=== PATIENT | male | born 1960 | race African-American/Black ===

== ENCOUNTER 2021-02-09 05:04 | Inpatient (IN) | payer SELFPAY ==
[~2021-02-09] VITALS: Ht 188 cm; Wt 113.6 kg
[2021-02-09] VITALS (22 sets, daily range): BP systolic 107–200; BP diastolic 55–111
--- NOTE | 2021-02-09 05:15 | NUR ---
Patient admitted to room 113 via cart accompanied by EMS personnel x2 from [facility] with HTN emergency and ICH. Patient sleeping but arouses easily and walks with standby assist to the bed. Patient states he is dizzy, gait is unsteady. Patient states he does have a headache but reports "I'm ok" and falls asleep. Patient arouses to name and shoulder shake; he is alert and oriented to self, place, recent event but not day/date/year nor president. After answering questions, patient immediately returns to sleep. Patient again aroused to fully assess neuro status--patient follows all commands and able to move all extremities but left arm and leg are weaker than the right. Patient was transferred with Cardene gtt infusing at 10MG/HR which was increased to 15MG/hr for SBP 200. Will page PCP for admit orders and discuss BP/Cardene gtt. See Admission information and Assessment to follow.
--- NOTE | 2021-02-09 06:00 | NUR ---
Paged Dr Salas, returned page--notified of admit, vital signs, Cardene gtt, Neuro status and reviewed CT Head results done at [facility]. Orders received for Admission to ICU, continue Cardene gtt, Labetalol 10MG IV [id number] for SBP>160, NPO, BR and Consult Dr Louie ([facility] ED spoke with Dr Louie.) See orders.
[2021-02-09] MEDS: LABETALOL 20 MG/4 ML DISP.SYRIN. IVP PRN (06:35)
--- NOTE | 2021-02-09 08:08 | PDOC1 ---
History and Physical Date of Service: DOS: DATE: 02/09/21 TIME: 08:05 Chief Complaint: Problems: (1) Intracranial hemorrhage (2) Hypertensive emergency Chief Complain: Headache dizziness History of Present Illness: HPI: Patient is a 61-year-old male transferred for to the ICU overnight due to hypertensive emergency and intracranial hemorrhage. Patient's mother at bedside provides most the history. She reports that patient had been in his usual state of health until yesterday morning when he reported feeling tired and having a headache. Patient mother reports he normally gets up early and goes outside however this was not the case yesterday. With this headache he took BC powder and went back to bed. Patient's mother reports that he was in and out of bed throughout most of the afternoon. Says patient did not eat anything yesterday which is very unusual for him. Approximately 1130 last night she had the patient get up to go to the bathroom and heard him fall. He however is able to get up and returned to bed; unknown if he hit his head at this time. Patient again woke up around 2 AM and woke up his mother asking for orange juice and then proceeded to fall again, she does not think he hit his head at this time. He was taken to hospital and found to have a systolic blood pressure greater than [address] scan found to have an intracranial hemorrhage. Due to severity of his condition he was transferred here. Patient's mother reports she is not aware of any past medical history other than hypertension which he intermittently takes hydrochlorothiazide for. Past Medical/Surgical History: PMH/PSH: Asthma, HTN, Hepatitis? Allergies: Allergies: Coded Allergies: No Known Drug Allergies (Unverified , 02/09/21) Family History: Family History: HTN Social History: Social History: Smoked 1 ppd; reports seldom alcohol use; denies drug use Current Medications: Current Medications Current Medications Nicardipine HCl 50 mg/Sodium Chloride 250 ml @ 12.5 mls/hr CONT PRN IV SEE I/O RECORD Last administered on 02/09/21at 08:03; Start 02/09/21 at 06:15 Labetalol HCl (Normodyne Iv Push) 10 mg PRN Q2HR PRN IVP HYPERTENSION Last administered on 02/09/21at 06:35; Start 02/09/21 at 06:15 ROS: Review of Systems Review of System REVIEW OF SYSTEMS: GENERAL: Denies weakness SKIN: No bruising, hair changes or rashes. EYES: No blurred, double or loss of vision. NOSE AND THROAT: No history of nosebleeds, hoarseness or sore throat. HEART: reports dizziness; denies chest pain, sob, weakness, numbness LUNGS: Denies cough, hemoptysis, wheezing or shortness of breath. GASTROINTESTINAL: Denies changes in appetite, nausea, vomiting, diarrhea or constipation. GENITOURINARY: No history of frequency, urgency, hesitancy or nocturia. NEUROLOGIC: Denies history of numbness, tingling, or tremor. PSYCHIATRIC: No history of panic, anxiety or depression. ENDOCRINE: No history of heat or cold intolerance, polyuria or polydipsia. EXTREMITIES: Denies joint pain, pain on walking or stiffness. Physical Exam: Vital Signs: Vital Signs Date Time Temp Pulse Resp B/P (MAP) Pulse Ox O2 Delivery O2 Flow Rate FiO2 02/09/21 08:00 98.6 67 30 156/81 (106) 96 Room Air 98.6 Physcial Exam: GEN: lethargic HEENT: Normal cephalic, atraumatic, external auditory canals are patent MUSCULOSKELETAL: Well developed , well nourished, ENDOCRINE: No thyromegaly was palpated LYMPHATICS: No cervical chain or axillary nodes were noted HEMATOPOIETIC: No bruising NECK: Supple, no JVD, no thyromegaly was noted LUNGS: Clear to auscultation in all lung reynolds without rhonchi or wheezing HEART: RRR, S1, S2 present. Peripheral pulses intact, no obvious murmurs noted ABDOMEN: Soft, nontender. Positive bowel sounds, no organomegaly, normal bowel sounds EXTREMITIES: Without clubbing, cyanosis, or edema. Pedal pulses intact. Negative Homans sign NEUROLOGIC: lethargic, unable to fully assess; knows his name and where he is but does not know why he is here SKIN: No ulcerations or rashes, good skin turgor, no jaundice VASCULAR: Good capillary refill, neurovascular bundle appears to be intact Labs: Labs: Labs from admission reviewed Assessment/Plan Assessment/Plan Patient is a 61-year-old -Italian male presenting as transfer due to intracranial hemorrhage and hypertensive emergency Intracranial hemorrhage, hypertensive emergency -Presented to outside hospital yesterday complaining of headache and multiple falls -Has systolic blood pressure over 200 -CT scans showed intracerebral hemorrhages -Contacted overnight for transfer here -Patient notably lethargic on arrival here -Neurosurgery consulted, repeat head CT -Awaiting surgical plan if any -Continue nicardipine drip; maintain blood pressure greater than 150-160 systolic Justifications for Admission Other Justification MARCUS ASH MD Feb 09, 2021 08:08
--- NOTE | 2021-02-09 09:00 | NUR ---
Pts mother took all clothing and wallet home with her.
--- NOTE | 2021-02-09 13:20 | NUR ---
Pt's neurological status declined since this AM. Mireille MCKINLEY notified and sent Dr Louie to bedside to assess pt. Dr Louie at bedside and stated that he does not want to operate on pt right now because it could cause him to have a worse outcome. Pt very restless, thrashing around, not answering questions much. Dr Louie ordered Fentanyl 25mcg PRN Q2Hrs but does not want pt to be sedated. Pt will not leave telemonitor on and keeps ripping all monitors off. RN has re-directed pt multiple times an hour.
[2021-02-09] MEDS ORDERED: fentaNYL PF VIAL 100 MCG/2 ML VIAL IVP PRN (13:30)
[2021-02-09] MEDS ORDERED: PHARMACY TO REVIEW MEDS. MC PRN (15:00)
[2021-02-09] MEDS ORDERED: ACETAMINOPHEN 650 MG SUPP.RECT. PR PRN (15:00)
--- NOTE | 2021-02-09 15:10 | PDOC2 ---
NEUROLOGY CONSULT Date of Service DOS: DATE: 02/09/21 TIME: 14:59 Reason for Consult Reason for Consult: Intracranial hemorrhage Referring Physician Referring Physician: Dr. Jacy Salas Source Source: Chart review History of Present Illness History of Present Illness The patient is a 61-year-old right-handed male who went to the [facility] emergency department early this morning. Yesterday morning he was having headache and felt tired. He took some BC powder and went back to bed. He was in and out of bed throughout the afternoon. He did not eat anything yesterday. At 1130 last night the patient got up to go the bathroom and mother heard him fall. He returned to bed. He woke up again about 2 AM and ask his mother for orange juice, he fell again. He was taken to the [facility] emergency department and had the below-described head CT. He was transferred here. Dr. Field, neurosurgery, is on the case. Patient does have hypertension, but he has not been taking his medication lately. Past Medical History Cardiovascular: CHF Pulmonary: Asthma, COPD Hepatobiliary: Hep A/B/C Past Surgical History Past Surgical History: No pertinent history Family History Family History: No pertinent hx Social History Social History Lives with mother Current Medications Current Medications Current Medications Nicardipine HCl 50 mg/Sodium Chloride 250 ml @ 12.5 mls/hr CONT PRN IV SEE I/O RECORD Last administered on 02/09/21at 11:29; Start 02/09/21 at 06:15 Labetalol HCl (Normodyne Iv Push) 10 mg PRN Q2HR PRN IVP HYPERTENSION Last administered on 02/09/21at 06:35; Start 02/09/21 at 06:15 Lorazepam (Ativan Inj) 2 mg 1X ONCE IVP Last administered on 02/09/21at 10:54; Start 02/09/21 at 10:45; Stop 02/09/21 at 10:46; Status DC Lorazepam (Ativan Inj) 2 mg 1X ONCE IVP Last administered on 02/09/21at 11:00; Start 02/09/21 at 11:00; Stop 02/09/21 at 11:01; Status DC Fentanyl Citrate (Fentanyl 2ml Vial) 25 mcg PRN Q2HR PRN IVP MODERATE TO SEVERE PAIN Last administered on 02/09/21at 13:37; Start 02/09/21 at 13:30 Allergies Allergies: Coded Allergies: No Known Drug Allergies (Unverified , 02/09/21) ROS Review of System Unobtainable Physical Exam Physical Examination General: Well-developed, well-nourished black male in no acute distress HEENT: Normocephalic andatraumatic. Temporal arteriespulsatile and nontender. Neck: Supple without bruit, no meningismus Musculoskeletal: Stability:see neurologic. Gait exam:see neurologic. Tone:see neurologic.Strength:see neurologic. Neurological: Mental Status:Moans, moving around in bed, nonpurposeful movements, does not follow commands. Cranial Nerves:Pupils equal and reactive to light, extraocular movements areintact,There is no facial asymmetry. Vestibulo-ocular reflex is intact. Reflexes:2+ and symmetric with flexor plantar responses. Motor:Moves all extremities, less so on the left. Coordination and gait:Not testable. Sensory:Not testable. Vitals VITALS Vital Signs Date Time Temp Pulse Resp B/P (MAP) Pulse Ox O2 Delivery O2 Flow Rate FiO2 02/09/21 14:00 81 28 145/78 (100) Room Air 02/09/21 12:00 98.4 97 98.4 Labs Labs Laboratory Tests Test 02/09/21 10:15 Hepatitis A IgM Antibody Nonreactive (Nonreactive) Hepatitis B Surface Antigen Nonreactive (Nonreactive) Hepatitis B Core IgM Antibody Nonreactive (Nonreactive) Hepatitis C IgG Antibody Reactive (Nonreactive) Laboratory Tests Test 02/09/21 10:15 Hepatitis A IgM Antibody Nonreactive (Nonreactive) Hepatitis B Surface Antigen Nonreactive (Nonreactive) Hepatitis B Core IgM Antibody Nonreactive (Nonreactive) Hepatitis C IgG Antibody Reactive (Nonreactive) Images Images I reviewed the second CT from here, I do not see any appreciable difference, radiology interpretation pending CT HEAD [facility] INDICATION: Reason: Near Syncope Dizziness / Spl. Instructions: / History: COMPARISON: None Available. Exposure: One or more of the following individualized dose reduction techniques were utilized for this examination: 1. Automated exposure control 2. Adjustment of the mA and/or kV according to patient size 3. Use of iterative reconstruction technique TECHNIQUE: 5 mm contiguous axial images were obtained from the skull base to the vertex in both bone and soft tissue algorithm. FINDINGS: There is a large right temporo-occipital intraparenchymal bleed identified measuring 7.0 x 8.1 x 5.3 cm with surrounding edema and mass effect causing effacement of the right lateral ventricle and 8 mm [id number] midline shift. There is sulcal effacement in the right cerebral hemisphere. The fourth ventricle isn't effaced. The basal cisterns are uneffaced. The visualized paranasal sinuses are clear. IMPRESSION: Large right temporo-occipital intraparenchymal bleed identified measuring 7.0 x 8.1 x 5.3 cm with surrounding edema and mass effect causing effacement of the right lateral ventricle and sulcal effacement in the right cerebral hemisphere and 8 mm [id number] midline shift. Other differential includes venous thrombosis hemorrhage. Assessment/Plan Assessment/Plan Impression: Large right temporo-occipital intraparenchymal bleed, most likely lobar hemorrhage from hypertension, consider venous sinus thrombosis, less likely in this location, aneurysmal bleed, head trauma (also unlikely). Recommendations: Target blood pressure less than 150/[address] tomorrow morning CT angiogram Doubt that he would hold still to get MRI or MR venogram, risks of sedation outweigh benefits. Also see stroke orders Thank you for letting me help with the patient's care. EITAN LORENZO MD Feb 09, 2021 15:10
[2021-02-09] MEDS ORDERED: ALBUTEROL SULFATE 2.5 MG/3 ML NEBU. NEB PRN (15:15)
--- NOTE | 2021-02-09 15:25 | RAD ---
CT scan of the head without contrast 02/09/2021 Clinical History: Intracranial hemorrhage Technique: Unenhanced, contiguous, 5 mm axial sections were obtained through the head. One or more of the following individualized dose reduction techniques were utilized for this study: 1. Automated exposure control. 2. Adjustment of the mA and/or kV according to patient size. 3. Use of iterative reconstruction technique. Findings: Comparison study is dated earlier today at 0302 hours. Images from the study are degraded by patient motion. The patient was combative on the CT table. An acute parenchymal hematoma is seen involving the right posterior temporal/occipital lobe. This carrington sures 7.4 x 5.3 5.4 cm in AP, transverse and craniocaudal dimensions. It is not significantly changed in size when compared to the previous examination. There is surrounding edema and associated mass ef fect which does not appear significantly changed. Effacement of the right lateral ventricle is again noted no hydrocephalus is seen. No skull fracture is identified. IMPRESSION: 7.4 cm acute hematoma is seen involving the right posterior temporal/occipital lobe. Ther e is surrounding edema and associated mass effect. These findings have not significantly changed. Electronically signed by: Lyle Sullivan MD (02/09/2021 3:22 PM) [id number]
[2021-02-09] MEDS ORDERED: IOHEXOL 350 MG/ML 100 ML VIAL. ONE (15:26)
[2021-02-09] MEDS ORDERED: IOHEXOL 350 MG/ML 100 ML VIAL. IV ONE (15:30)
[2021-02-09] MEDS ORDERED: CONTRAST GIVEN. MC PRN (15:45)
[2021-02-09] MEDS ORDERED: ROCURONIUM 50 MG/5 ML VIAL. ONE (15:51)
[2021-02-09] MEDS ORDERED: PROPOFOL 100 ML IV ONE (15:51)
[2021-02-09] MEDS ORDERED: LIDOCAINE 2% 100 MG/5 ML SYRINGE. ONE (15:52)
--- NOTE | 2021-02-09 15:53 | NUR ---
SS following for discharge planning. SS reviewed pt chart and discussed with pt RN. Pt is from home. Pt had CT of head today. Hemorrhagic CVA. Pt being intubated. Dr. Louie consulted for surgery. Carla vazquez. Not stable. Self pay. SS will continue to follow for discharge planning.
[2021-02-09] MEDS ORDERED: ROCURONIUM 50 MG/5 ML VIAL. IV ONE ×2 (16:15→17:15)
[2021-02-09] MEDS ORDERED: LIDOCAINE 2% 100 MG/5 ML SYRINGE. IV ONE ×2 (16:15→17:15)
[2021-02-09] MEDS: PROPOFOL 100 ML IV PRN ×3 (16:18→22:24)
--- NOTE | 2021-02-09 16:30 | RAD ---
CT HEAD/BRAIN WO, CTA HEAD AND NECK W/WO CONTRAST History:Reason: pt went completely unresponsive [phone] / Spl. Instructions: / History: Technique: Noncontrast head CT was performed in correlation with this exam. After bolus of intravenou s contrast, volumetric CT data acquisition was acquired of the head and neck. Multiplanar reconstruct ion images to include MIP and 3-D reconstruction images are submitted. Exposure: One or more of the following individualized dose reduction techniques were utilized for thi s examination: 1. Automated exposure control 2. Adjustment of the mA and/or kV according to patient size 3. Use of iterative reconstruction technique. Comparison: February 09, 2021 Any determination of stenosis is based on NASCET criteria. Noncontrast CT head: Unchanged right posterior cerebral intraparenchymal hemorrhage with surrounding edema involving the r ight parietal occipital and temporal lobes. Small right posterior falcine and posterior cerebral subd ural hematoma, unchanged and better evaluated on the current examination due to motion artifact previ ously. Unchanged mass effect on the right posterior lateral ventricle with unchanged leftward midline shift measures 3 mm. Imaged orbits are unremarkable. Imaged paranasal sinuses and mastoid air cells are clear. Head CTA: ICA: Moderate carotid siphon atheromatous plaque with mild narrowing, left greater than right. No occ lusion. MCA: No stenosis, occlusion or aneurysm. Injury displacement of right MCA branches due to intraparenc hymal hematoma. ALAYNA: No stenosis, occlusion or aneurysm. HEALTHCARE MANAGEMENT: No stenosis, occlusion or aneurysm. Basilar artery: No stenosis, occlusion or aneurysm. Distal vertebral arteries: No stenosis, occlusion or aneurysm. No aneurysm or vascular malformation within the region of the right posterior cerebral hematoma. CT angiogram neck: Aortic arch: Degraded due to contrast bolus timing artifact Common carotid arteries: Degraded evaluation of the common carotid arteries due to patient motion. Internal carotid arteries: No stenosis, occlusion or dissection. 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 Patent right vertebral artery. Pulmonary emphysema with large right apical bullous disease. Soft tissues appear normal. Bones: Multilevel cervical spondylosis most prominent C4-C5 and C5-C6. Impression: Noncontrast head CT: 1. Unchanged right posterior cerebral intraparenchymal hematoma with adjacent edema and mass effect. 2. Small right posterior parafalcine and the posterior cerebral subdural hematoma, unchanged. CT angiogram head: 1. No evidence of arterial venous malformation or aneurysm within the region of the intraparenchymal hematoma. CT angiogram neck: 1. Degraded evaluation due to patient motion and technique. 2. Occlusion of the left vertebral artery 3. Pulmonary emphysema. Electronically signed by: Aaron Mayes DO (02/09/2021 4:28 PM) [id number]
[2021-02-09] MEDS ORDERED: ROCURONIUM 100 MG/10 ML VIAL. ONE ×2 (16:31→17:58)
[2021-02-09] MEDS ORDERED: GELATIN SPONGE SIZE 100. ONE (16:33)
[2021-02-09] MEDS ORDERED: BUPIVACAINE-EPI 0.5%-1:200000 MPF 30 ML VIAL. ONE (16:33)
[2021-02-09] MEDS ORDERED: SURGICEL HEMOSTAT 4X8 EACH. ONE (16:33)
[2021-02-09] MEDS ORDERED: THROMBIN TOPICAL 20,000 UNIT SPRAY.SYRN KIT TP ONE (16:33)
[2021-02-09] MEDS ORDERED: fentaNYL PF VIAL 100 MCG/2 ML VIAL IVP ONE (16:45)
--- NOTE | 2021-02-09 16:54 | RAD ---
Exam: Chest one view INDICATION: Intubation and central line placement TECHNIQUE: Frontal view of the chest Comparisons: None FINDINGS: Enteric tube with tip in the distal stomach. Right-sided central catheter with tip at the SVC. The cardiomediastinal silhouette and pulmonary vessels are within normal limits. Strandy opacity at lung bases bilaterally. No pleural effusion. IMPRESSION: Lines and tubes described above. Electronically signed by: Alis Schroeder MD (02/09/2021 4:52 PM) LEIDA
--- NOTE | 2021-02-09 16:59 | NUR ---
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 Monitors in place. Propofol, Cardene, and NS infusing. Family updated and on the way to hospital.
--- NOTE | 2021-02-09 17:04 | PDOC ---
Date and Time Called at 15:41 to come to ICU to intubate patient. Patient in CT scan after change in mental status, large subdural. At some point he became completely unresponsive, still having shallow respirations. When he arrived from CT he was being given bag/mask O2. SpO2 98%, BP 120s/80s, unresponsive Given 100mg IV Lidocaine, 60mg IV Propofol and 50mg IV Rocuronium. 7.5 ETT placed with ease. MAC 3. Secured 24cm, ETCO2 present, BSBE. BP 140/80 after ETT. R External jugular 3 lumen inserted without difficulty, sutured at 16cm, brief run VT with wire, resolved when withdrawn. 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 CXR pending Covid swab pending Current Medications Current Medications Nicardipine HCl 50 mg/Sodium Chloride 250 ml @ 12.5 mls/hr CONT PRN IV SEE I/O RECORD Last administered on 02/09/21at 16:51; Start 02/09/21 at 06:15 Labetalol HCl (Normodyne Iv Push) 10 mg PRN Q2HR PRN IVP HYPERTENSION Last administered on 02/09/21at 06:35; Start 02/09/21 at 06:15 Lorazepam (Ativan Inj) 2 mg 1X ONCE IVP Last administered on 02/09/21at 10:54; Start 02/09/21 at 10:45; Stop 02/09/21 at 10:46; Status DC Lorazepam (Ativan Inj) 2 mg 1X ONCE IVP Last administered on 02/09/21at 11:00; Start 02/09/21 at 11:00; Stop 02/09/21 at 11:01; Status DC Fentanyl Citrate (Fentanyl 2ml Vial) 25 mcg PRN Q2HR PRN IVP MODERATE TO SEVERE PAIN Last administered on 02/09/21at 13:37; Start 02/09/21 at 13:30 Info (Review Meds) 1 ea PRN 1X PRN MC SEE COMMENTS; Start 02/09/21 at 15:00 Acetaminophen (Tylenol Supp) 650 mg PRN Q6HRS PRN [place] FEVER > 100.5'F or 38'C; Start 02/09/21 at 15:00 Albuterol Sulfate (Ventolin Neb Soln) 2.5 mg PRN Q4HRS PRN NEB SHORTNESS OF BREATH; Start 02/09/21 at 15:15 Iohexol (Omnipaque 350 Mg/ml) 75 ml 1X ONCE IV Last administered on 02/09/21at 15:52; Start 02/09/21 at 15:30; Stop 02/09/21 at 15:35; Status DC Iohexol (Omnipaque 350 Mg/ml) 100 ml STK-MED ONCE .ROUTE ; Start 02/09/21 at 15:26; Stop 02/09/21 at 15:27; Status DC Info (CONTRAST GIVEN -- Rx MONITORING) 1 each PRN DAILY PRN MC SEE COMMENTS; Start 02/09/21 at 15:45; Stop 02/11/21 at 15:44 Propofol 100 ml @ As Directed STK-MED ONCE IV ; Start 02/09/21 at 15:51; Stop 02/09/21 at 15:51; Status DC Rocuronium [place] (Zemuron) 50 mg STK-MED ONCE .ROUTE ; Start 02/09/21 at 15:51; Stop 02/09/21 at 15:51; Status DC Lidocaine HCl (Lidocaine HCl 2% Abboject) 100 mg STK-MED ONCE .ROUTE ; Start 02/09/21 at 15:52; Stop 02/09/21 at 15:53; Status DC Propofol 100 ml @ 3.507 mls/ hr CONT PRN IV PER PROTOCOL Last administered on 02/09/21at 16:18; Start 02/09/21 at 16:15 Lidocaine HCl (Lidocaine HCl 2% Abboject) 100 mg 1X ONCE IV Last administered on 02/09/21at 16:17; Start 02/09/21 at 16:15; Stop 02/09/21 at 16:17; Status DC Rocuronium [place] (Zemuron) 50 mg 1X ONCE IV Last administered on 02/09/21at 16:17; Start 02/09/21 at 16:15; Stop 02/09/21 at 16:17; Status DC Rocuronium [place] (Zemuron) 100 mg STK-MED ONCE .ROUTE ; Start 02/09/21 at 16:31; Stop 02/09/21 at 16:32; Status DC Gelatin (Gelfoam Size 100) 1 each STK-MED ONCE .ROUTE ; Start 02/09/21 at 16:33; Stop 02/09/21 at 16:33; Status DC Bupivacaine HCl/ Epinephrine Bitart (Sensorcain-Epi 0.5%-1:[id number] Mpf) 30 ml STK-MED ONCE .ROUTE ; Start 02/09/21 at 16:33; Stop 02/09/21 at 16:33; Status DC Cellulose (Surgicel Hemostat 4x8) 1 each STK-MED ONCE .ROUTE ; Start 02/09/21 at 16:33; Stop 02/09/21 at 16:33; Status DC Thrombin 20,000 unit STK-MED ONCE TP ; Start 02/09/21 at 16:33; Stop 02/09/21 at 16:33; Status DC Fentanyl Citrate (Fentanyl 2ml Vial) 75 mcg 1X ONCE IVP Last administered on 02/09/21at 16:45; Start 02/09/21 at 16:45; Stop 02/09/21 at 16:47; Status DC Pertinent Labs/Test Laboratory Tests Test 02/09/21 10:15 Hepatitis A IgM Antibody Nonreactive (Nonreactive) Hepatitis B Surface Antigen Nonreactive (Nonreactive) Hepatitis B Core IgM Antibody Nonreactive (Nonreactive) Hepatitis C IgG Antibody Reactive (Nonreactive) Laboratory Tests Test 02/09/21 10:15 Hepatitis A IgM Antibody Nonreactive (Nonreactive) Hepatitis B Surface Antigen Nonreactive (Nonreactive) Hepatitis B Core IgM Antibody Nonreactive (Nonreactive) Hepatitis C IgG Antibody Reactive (Nonreactive) LAST VITALS Vital Signs Date Time Temp Pulse Resp B/P (MAP) Pulse Ox O2 Delivery O2 Flow Rate FiO2 02/09/21 16:54 127/89 (102) 02/09/21 16:45 Ventilator 02/09/21 16:40 98.4 94 33 98 98.4 SYLVIA MATHIS MD Feb 09, 2021 17:04
--- NOTE | 2021-02-09 17:09 | PDOC ---
Provider Note Date of Service: DATE: 02/09/21 TIME: 17:02 Provider Note consulted for ICH patient seen and examined at 0915- was awake, alert, oriented to person and place, PEREZ, weaker on the left, On Cardene SBP 140's, follow CT was ordered, D/W [place] Reviewed f[place] [address] which was essentially unchanged Patient seen again at 1320- continued to answer questions, more restless, c/o mild headache, BP controlled with Cardene Received message at 1520 that patient was not responding, was seen by neurology and stat CTA was ordered patient intubated by anesthesia in ICU, plans make for craniotomy 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
[2021-02-09] MEDS ORDERED: PROPOFOL 100 ML IV PRN (17:15)
[2021-02-09] MEDS ORDERED: PROPOFOL 10 MG/ML (20ML) VIAL. IV ONE (17:15)
[2021-02-09] MEDS ORDERED: ceFAZolin SODIUM IV Push 1 GM VIAL. IVP ONE (17:28)
[2021-02-09] MEDS ORDERED: fentaNYL PF VIAL 100 MCG/2 ML VIAL ONE (17:43)
[2021-02-09 18:49] LABS: HEMATOCRIT 41.9 % (39.0-53.0); HEMOGLOBIN 14.1 g/dL (13.0-17.5)
[2021-02-09] MEDS ORDERED: VECURONIUM BOLUS 10 MG VIAL. IV ONE (18:49)
[2021-02-09] MEDS ORDERED: 0.9 % SODIUM CHLORIDE 20 ML VIAL. IJ ONE (18:50)
[2021-02-09 18:58] LABS: CREATININE 1.9 mg/dL (0.7-1.3); POTASSIUM 4.4 mmol/L (3.5-5.1)
[2021-02-09 19:00] LABS: PROTHROMBIN TIME PATIENT 14.2 SEC (11.7-14.0)
[2021-02-09] MEDS ORDERED: SEVOFLURANE > 120 MINUTES. IH ONE (19:20)
--- NOTE | 2021-02-09 19:51 | PDOC ---
Date and Time EJ 3 lumen tip in SVC I am unable to see the ETT on the Xray that was taken. ETT is in trachea at 24cm with no air leak. Will repeat Xray Current Medications Current Medications Nicardipine HCl 50 mg/Sodium Chloride 250 ml @ 12.5 mls/hr CONT PRN IV SEE I/O RECORD Last administered on 02/09/21at 16:51; Start 02/09/21 at 06:15 Labetalol HCl (Normodyne Iv Push) 10 mg PRN Q2HR PRN IVP HYPERTENSION Last administered on 02/09/21at 06:35; Start 02/09/21 at 06:15 Lorazepam (Ativan Inj) 2 mg 1X ONCE IVP Last administered on 02/09/21at 10:54; Start 02/09/21 at 10:45; Stop 02/09/21 at 10:46; Status DC Lorazepam (Ativan Inj) 2 mg 1X ONCE IVP Last administered on 02/09/21at 11:00; Start 02/09/21 at 11:00; Stop 02/09/21 at 11:01; Status DC Fentanyl Citrate (Fentanyl 2ml Vial) 25 mcg PRN Q2HR PRN IVP MODERATE TO SEVERE PAIN Last administered on 02/09/21at 13:37; Start 02/09/21 at 13:30 Info (Review Meds) 1 ea PRN 1X PRN MC SEE COMMENTS; Start 02/09/21 at 15:00 Acetaminophen (Tylenol Supp) 650 mg PRN Q6HRS PRN MD FEVER > 100.5'F or 38'C; Start 02/09/21 at 15:00 Albuterol Sulfate (Ventolin Neb Soln) 2.5 mg PRN Q4HRS PRN NEB SHORTNESS OF BREATH; Start 02/09/21 at 15:15 Iohexol (Omnipaque 350 Mg/ml) 75 ml 1X ONCE IV Last administered on 02/09/21at 15:52; Start 02/09/21 at 15:30; Stop 02/09/21 at 15:35; Status DC Iohexol (Omnipaque 350 Mg/ml) 100 ml STK-MED ONCE .ROUTE ; Start 02/09/21 at 15:26; Stop 02/09/21 at 15:27; Status DC Info (CONTRAST GIVEN -- Rx MONITORING) 1 each PRN DAILY PRN MC SEE COMMENTS; Start 02/09/21 at 15:45; Stop 02/11/21 at 15:44 Propofol 100 ml @ As Directed STK-MED ONCE IV ; Start 02/09/21 at 15:51; Stop 02/09/21 at 15:51; Status DC Rocuronium [place] (Zemuron) 50 mg STK-MED ONCE .ROUTE ; Start 02/09/21 at 15:51; Stop 02/09/21 at 15:51; Status DC Lidocaine HCl (Lidocaine HCl 2% Abboject) 100 mg STK-MED ONCE .ROUTE ; Start 02/09/21 at 15:52; Stop 02/09/21 at 15:53; Status DC Propofol 100 ml @ 3.507 mls/ hr CONT PRN IV PER PROTOCOL Last administered on 02/09/21at 16:18; Start 02/09/21 at 16:15 Lidocaine HCl (Lidocaine HCl 2% Abboject) 100 mg 1X ONCE IV Last administered on 02/09/21at 16:17; Start 02/09/21 at 16:15; Stop 02/09/21 at 16:17; Status DC Rocuronium [place] (Zemuron) 50 mg 1X ONCE IV Last administered on 02/09/21at 16:17; Start 02/09/21 at 16:15; Stop 02/09/21 at 16:17; Status DC Rocuronium [place] (Zemuron) 100 mg STK-MED ONCE .ROUTE ; Start 02/09/21 at 16:31; Stop 02/09/21 at 16:32; Status DC Gelatin (Gelfoam Size 100) 1 each STK-MED ONCE .ROUTE Last administered on 02/09/21at 17:49; Start 02/09/21 at 16:33; Stop 02/09/21 at 16:33; Status DC Bupivacaine HCl/ Epinephrine Bitart (Sensorcain-Epi 0.5%-1:293763 Mpf) 30 ml STK-MED ONCE .ROUTE Last administered on 02/09/21at 17:49; Start 02/09/21 at 16:33; Stop 02/09/21 at 16:33; Status DC Cellulose (Surgicel Hemostat 4x8) 1 each STK-MED ONCE .ROUTE Last administered on 02/09/21at 18:38; Start 02/09/21 at 16:33; Stop 02/09/21 at 16:33; Status DC Thrombin 20,000 unit STK-MED ONCE TP Last administered on 02/09/21at 17:49; Start 02/09/21 at 16:33; Stop 02/09/21 at 16:33; Status DC Fentanyl Citrate (Fentanyl 2ml Vial) 75 mcg 1X ONCE IVP Last administered on 02/09/21at 16:45; Start 02/09/21 at 16:45; Stop 02/09/21 at 16:47; Status DC Propofol (Diprivan) 200 mg 1X ONCE IV ; Start 02/09/21 at 17:15; Stop 02/09/21 at 17:16; Status DC Lidocaine HCl (Lidocaine HCl 2% Abboject) 100 mg 1X ONCE IV ; Start 02/09/21 at 17:15; Stop 02/09/21 at 17:16; Status DC Rocuronium [place] (Zemuron) 50 mg 1X ONCE IV ; Start 02/09/21 at 17:15; Stop 02/09/21 at 17:16; Status DC Propofol 100 ml @ 0 mls/hr CONT PRN PRN IV SEDATION; Start 02/09/21 at 17:15; Stop 02/10/21 at 05:14 Cefazolin Sodium (Ancef) 1 gm STK-MED ONCE IVP ; Start 02/09/21 at 17:28; Stop 02/09/21 at 17:28; Status DC Fentanyl Citrate (Fentanyl 2ml Vial) 100 mcg STK-MED ONCE .ROUTE ; Start 02/09/21 at 17:43; Stop 02/09/21 at 17:43; Status DC Rocuronium [place] (Zemuron) 100 mg STK-MED ONCE .ROUTE ; Start 02/09/21 at 17:58; Stop 02/09/21 at 17:59; Status DC Vecuronium [place] (Norcuron Bolus) 10 mg STK-MED ONCE IV ; Start 02/09/21 at 18:49; Stop 02/09/21 at 18:50; Status DC Sodium Chloride (SODIUM CHLORIDE 20ml) 20 ml STK-MED ONCE IJ ; Start 02/09/21 at 18:50; Stop 02/09/21 at 18:50; Status DC Sevoflurane (Ultane) 90 ml STK-MED ONCE IH ; Start 02/09/21 at 19:20; Stop 02/09/21 at 19:21; Status DC Pertinent Labs/Test Laboratory Tests Test 02/09/21 10:15 02/09/21 16:20 02/09/21 18:38 Hepatitis A IgM Antibody Nonreactive (Nonreactive) Hepatitis B Surface Antigen Nonreactive (Nonreactive) Hepatitis B Core IgM Antibody Nonreactive (Nonreactive) Hepatitis C IgG Antibody Reactive (Nonreactive) SARS-CoV-2 Antigen (Rapid) Negative (NEGATIVE) White Blood Count 15.0 x10^3/uL (4.0-11.0) Hemoglobin 14.1 g/dL (13.0-17.5) Hematocrit 41.9 % (39.0-53.0) Platelet Count 238 x10^3/uL (140-400) Prothrombin Time 14.2 SEC (11.7-14.0) Prothromb Time International Ratio 1.1 (0.8-1.1) Activated Partial Thromboplast Time 27 SEC (24-38) Sodium Level 133 mmol/L (136-145) Potassium Level 4.4 mmol/L (3.5-5.1) Chloride Level 98 mmol/L (98-107) Carbon Dioxide Level 22 mmol/L (21-32) Anion Gap 13 (6-14) Blood Urea Nitrogen 24 mg/dL (8-26) Creatinine 1.9 mg/dL (0.7-1.3) Estimated GFR (Cockcroft-Gault) 44.0 Glucose Level 239 mg/dL (70-99) Calcium Level 9.0 mg/dL (8.5-10.1) Laboratory Tests Test 02/09/21 10:15 02/09/21 16:20 02/09/21 18:38 Hepatitis A IgM Antibody Nonreactive (Nonreactive) Hepatitis B Surface Antigen Nonreactive (Nonreactive) Hepatitis B Core IgM Antibody Nonreactive (Nonreactive) Hepatitis C IgG Antibody Reactive (Nonreactive) SARS-CoV-2 Antigen (Rapid) Negative (NEGATIVE) White Blood Count 15.0 x10^3/uL (4.0-11.0) Hemoglobin 14.1 g/dL (13.0-17.5) Hematocrit 41.9 % (39.0-53.0) Platelet Count 238 x10^3/uL (140-400) Prothrombin Time 14.2 SEC (11.7-14.0) Prothromb Time International Ratio 1.1 (0.8-1.1) Activated Partial Thromboplast Time 27 SEC (24-38) Sodium Level 133 mmol/L (136-145) Potassium Level 4.4 mmol/L (3.5-5.1) Chloride Level 98 mmol/L (98-107) Carbon Dioxide Level 22 mmol/L (21-32) Anion Gap 13 (6-14) Blood Urea Nitrogen 24 mg/dL (8-26) Creatinine 1.9 mg/dL (0.7-1.3) Estimated GFR (Cockcroft-Gault) 44.0 Glucose Level 239 mg/dL (70-99) Calcium Level 9.0 mg/dL (8.5-10.1) LAST VITALS Vital Signs Date Time Temp Pulse Resp B/P (MAP) Pulse Ox O2 Delivery O2 Flow Rate FiO2 02/09/21 16:54 127/89 (102) 02/09/21 16:45 Ventilator 02/09/21 16:40 98.4 94 33 98 98.4 SYLVIA MATHIS MD Feb 09, 2021 19:51
--- NOTE | 2021-02-09 21:18 | RAD ---
EXAM: AP View of the chest Supine AP view of the abdomen DATE: 02/09/2021 8:30 PM INDICATION: Reason: OGT placement / Spl. Instructions: / History: COMPARISON: No Prior FINDINGS: ET tube tip terminates approximately 4 cm above the emily. Enteric tube tip terminates within the rosalinda dy/antrum of the stomach. Bilateral emphysematous changes are seen with large cystic/falx changes in the apex. Right-sided vasc ular catheter tip projects over the proximal SVC. Bilateral parenchymal opacities are grossly stable. Small pleural effusions. No pneumothorax. No abnormal small or large bowel dilatation. No abnormal soft tissue mass effect. Radiopaque densit ies project over the renal fossa bilaterally likely renal calculi. Evaluation for free intraperitonea l gas is limited on this supine exam. IMPRESSION: 1. Support lines and tubes as above. 2. Emphysematous changes are seen bilaterally. 3. No evidence for bowel obstruction. 4. Radiopaque densities project over the renal fossa bilaterally likely renal calculi. 5. Bilateral parenchymal opacities are grossly stable Electronically signed by: Christopher Perrin MD (02/09/2021 9:15 PM) VAM[facility]I
[2021-02-09 22:01] LABS: BASE EXCESS ABG -4 mmol/L (-3-3); HCO3 ABG 22 mmol/L (21-28); PCO2 ABG 46 mmHg (35-46); PO2 ABG 107 mmHg (65-108); SAT O2 ABG 97 % (92-99)
[2021-02-09 22:07] LABS: FIO2 ABG 100
--- NOTE | 2021-02-09 22:07 | PDOC ---
Date and Time Repeat chest x ray show endotracheal tube in good position approximately 4cm above emily Current Medications Current Medications Nicardipine HCl 50 mg/Sodium Chloride 250 ml @ 12.5 mls/hr CONT PRN IV SEE I/O RECORD Last administered on 02/09/21at 16:51; Start 02/09/21 at 06:15 Labetalol HCl (Normodyne Iv Push) 10 mg PRN Q2HR PRN IVP HYPERTENSION Last administered on 02/09/21at 06:35; Start 02/09/21 at 06:15 Lorazepam (Ativan Inj) 2 mg 1X ONCE IVP Last administered on 02/09/21at 10:54; Start 02/09/21 at 10:45; Stop 02/09/21 at 10:46; Status DC Lorazepam (Ativan Inj) 2 mg 1X ONCE IVP Last administered on 02/09/21at 11:00; Start 02/09/21 at 11:00; Stop 02/09/21 at 11:01; Status DC Fentanyl Citrate (Fentanyl 2ml Vial) 25 mcg PRN Q2HR PRN IVP MODERATE TO SEVERE PAIN Last administered on 02/09/21at 13:37; Start 02/09/21 at 13:30 Info (Review Meds) 1 ea PRN 1X PRN MC SEE COMMENTS; Start 02/09/21 at 15:00 Acetaminophen (Tylenol Supp) 650 mg PRN Q6HRS PRN [place] FEVER > 100.5'F or 38'C; Start 02/09/21 at 15:00 Albuterol Sulfate (Ventolin Neb Soln) 2.5 mg PRN Q4HRS PRN NEB SHORTNESS OF BREATH; Start 02/09/21 at 15:15 Iohexol (Omnipaque 350 Mg/ml) 75 ml 1X ONCE IV Last administered on 02/09/21at 15:52; Start 02/09/21 at 15:30; Stop 02/09/21 at 15:35; Status DC Iohexol (Omnipaque 350 Mg/ml) 100 ml STK-MED ONCE .ROUTE ; Start 02/09/21 at 15:26; Stop 02/09/21 at 15:27; Status DC Info (CONTRAST GIVEN -- Rx MONITORING) 1 each PRN DAILY PRN MC SEE COMMENTS; Start 02/09/21 at 15:45; Stop 02/11/21 at 15:44 Propofol 100 ml @ As Directed STK-MED ONCE IV ; Start 02/09/21 at 15:51; Stop 02/09/21 at 15:51; Status DC Rocuronium [place] (Zemuron) 50 mg STK-MED ONCE .ROUTE ; Start 02/09/21 at 15:51; Stop 02/09/21 at 15:51; Status DC Lidocaine HCl (Lidocaine HCl 2% Abboject) 100 mg STK-MED ONCE .ROUTE ; Start 02/09/21 at 15:52; Stop 02/09/21 at 15:53; Status DC Propofol 100 ml @ 3.507 mls/ hr CONT PRN IV PER PROTOCOL Last administered on 02/09/21at 19:49; Start 02/09/21 at 16:15 Lidocaine HCl (Lidocaine HCl 2% Abboject) 100 mg 1X ONCE IV Last administered on 02/09/21at 16:17; Start 02/09/21 at 16:15; Stop 02/09/21 at 16:17; Status DC Rocuronium [place] (Zemuron) 50 mg 1X ONCE IV Last administered on 02/09/21at 16:17; Start 02/09/21 at 16:15; Stop 02/09/21 at 16:17; Status DC Rocuronium [place] (Zemuron) 100 mg STK-MED ONCE .ROUTE ; Start 02/09/21 at 16:31; Stop 02/09/21 at 16:32; Status DC Gelatin (Gelfoam Size 100) 1 each STK-MED ONCE .ROUTE Last administered on 02/09/21at 17:49; Start 02/09/21 at 16:33; Stop 02/09/21 at 16:33; Status DC Bupivacaine HCl/ Epinephrine Bitart (Sensorcain-Epi 0.5%-1:543310 Mpf) 30 ml STK-MED ONCE .ROUTE Last administered on 02/09/21at 17:49; Start 02/09/21 at 16:33; Stop 02/09/21 at 16:33; Status DC Cellulose (Surgicel Hemostat 4x8) 1 each STK-MED ONCE .ROUTE Last administered on 02/09/21at 18:38; Start 02/09/21 at 16:33; Stop 02/09/21 at 16:33; Status DC Thrombin 20,000 unit STK-MED ONCE TP Last administered on 02/09/21at 17:49; Start 02/09/21 at 16:33; Stop 02/09/21 at 16:33; Status DC Fentanyl Citrate (Fentanyl 2ml Vial) 75 mcg 1X ONCE IVP Last administered on 02/09/21at 16:45; Start 02/09/21 at 16:45; Stop 02/09/21 at 16:47; Status DC Propofol (Diprivan) 200 mg 1X ONCE IV ; Start 02/09/21 at 17:15; Stop 02/09/21 at 17:16; Status DC Lidocaine HCl (Lidocaine HCl 2% Abboject) 100 mg 1X ONCE IV ; Start 02/09/21 at 17:15; Stop 02/09/21 at 17:16; Status DC Rocuronium [place] (Zemuron) 50 mg 1X ONCE IV ; Start 02/09/21 at 17:15; Stop 02/09/21 at 17:16; Status DC Propofol 100 ml @ 0 mls/hr CONT PRN PRN IV SEDATION; Start 02/09/21 at 17:15; Stop 02/10/21 at 05:14 Cefazolin Sodium (Ancef) 1 gm STK-MED ONCE IVP ; Start 02/09/21 at 17:28; Stop 02/09/21 at 17:28; Status DC Fentanyl Citrate (Fentanyl 2ml Vial) 100 mcg STK-MED ONCE .ROUTE ; Start 02/09/21 at 17:43; Stop 02/09/21 at 17:43; Status DC Rocuronium [place] (Zemuron) 100 mg STK-MED ONCE .ROUTE ; Start 02/09/21 at 17:58; Stop 02/09/21 at 17:59; Status DC Vecuronium [place] (Norcuron Bolus) 10 mg STK-MED ONCE IV ; Start 02/09/21 at 18:49; Stop 02/09/21 at 18:50; Status DC Sodium Chloride (SODIUM CHLORIDE 20ml) 20 ml STK-MED ONCE IJ ; Start 02/09/21 at 18:50; Stop 02/09/21 at 18:50; Status DC Sevoflurane (Ultane) 90 ml STK-MED ONCE IH ; Start 02/09/21 at 19:20; Stop 02/09/21 at 19:21; Status DC Pertinent Labs/Test Laboratory Tests Test 02/09/21 10:15 02/09/21 16:20 02/09/21 18:38 Hepatitis A IgM Antibody Nonreactive (Nonreactive) Hepatitis B Surface Antigen Nonreactive (Nonreactive) Hepatitis B Core IgM Antibody Nonreactive (Nonreactive) Hepatitis C IgG Antibody Reactive (Nonreactive) SARS-CoV-2 Antigen (Rapid) Negative (NEGATIVE) White Blood Count 15.0 x10^3/uL (4.0-11.0) Hemoglobin 14.1 g/dL (13.0-17.5) Hematocrit 41.9 % (39.0-53.0) Platelet Count 238 x10^3/uL (140-400) Prothrombin Time 14.2 SEC (11.7-14.0) Prothromb Time International Ratio 1.1 (0.8-1.1) Activated Partial Thromboplast Time 27 SEC (24-38) Sodium Level 133 mmol/L (136-145) Potassium Level 4.4 mmol/L (3.5-5.1) Chloride Level 98 mmol/L (98-107) Carbon Dioxide Level 22 mmol/L (21-32) Anion Gap 13 (6-14) Blood Urea Nitrogen 24 mg/dL (8-26) Creatinine 1.9 mg/dL (0.7-1.3) Estimated GFR (Cockcroft-Gault) 44.0 Glucose Level 239 mg/dL (70-99) Calcium Level 9.0 mg/dL (8.5-10.1) Laboratory Tests Test 02/09/21 10:15 02/09/21 16:20 02/09/21 18:38 Hepatitis A IgM Antibody Nonreactive (Nonreactive) Hepatitis B Surface Antigen Nonreactive (Nonreactive) Hepatitis B Core IgM Antibody Nonreactive (Nonreactive) Hepatitis C IgG Antibody Reactive (Nonreactive) SARS-CoV-2 Antigen (Rapid) Negative (NEGATIVE) White Blood Count 15.0 x10^3/uL (4.0-11.0) Hemoglobin 14.1 g/dL (13.0-17.5) Hematocrit 41.9 % (39.0-53.0) Platelet Count 238 x10^3/uL (140-400) Prothrombin Time 14.2 SEC (11.7-14.0) Prothromb Time International Ratio 1.1 (0.8-1.1) Activated Partial Thromboplast Time 27 SEC (24-38) Sodium Level 133 mmol/L (136-145) Potassium Level 4.4 mmol/L (3.5-5.1) Chloride Level 98 mmol/L (98-107) Carbon Dioxide Level 22 mmol/L (21-32) Anion Gap 13 (6-14) Blood Urea Nitrogen 24 mg/dL (8-26) Creatinine 1.9 mg/dL (0.7-1.3) Estimated GFR (Cockcroft-Gault) 44.0 Glucose Level 239 mg/dL (70-99) Calcium Level 9.0 mg/dL (8.5-10.1) LAST VITALS Vital Signs Date Time Temp Pulse Resp B/P (MAP) Pulse Ox O2 Delivery O2 Flow Rate FiO2 02/09/21 21:00 90 18 107/55 (72) 100 Ventilator 02/09/21 20:00 98.7 98.7 SYLVIA MATHIS MD Feb 09, 2021 22:07
[2021-02-10] VITALS (25 sets, daily range): BP systolic 104–161; BP diastolic 50–81
[2021-02-10] MEDS: PROPOFOL 100 ML IV PRN ×8 (01:12→23:53)
--- NOTE | 2021-02-10 01:44 | NUR ---
Patient's urine output has decreased. Moore irrigated and will continue to monitor.
--- NOTE | 2021-02-10 04:41 | NUR ---
Spoke with Dusty at [facility]. Patients eyes are pinpoint and non-reactive, patient is not withdrawing to pain, GCS 3 at this time. Explained that patient was taken to surgery for crainiotomy and he wanted to wait until the AM to have someone call 2/2 the possibility the patient still has paralytics onboard.
[2021-02-10] MEDS: fentaNYL HIGH DOSE PCA 55 ML IV PRN (05:42)
[2021-02-10 07:26] LABS: BASE EXCESS ABG -3 mmol/L (-3-3); HCO3 ABG 21 mmol/L (21-28); PCO2 ABG 35 mmHg (35-46); PO2 ABG 120 mmHg (65-108); SAT O2 ABG 98 % (92-99)
[2021-02-10 07:49] LABS: BASO # 0.1 x10^3/uL (0.0-0.2); BASO % 1 % (0-3); EOS % 0 % (0-3); HEMATOCRIT 39.3 % (39.0-53.0); LYMPH # 1.4 x10^3/uL (1.0-4.8); LYMPH % 10 % (24-48); MEAN CORPUSCULAR HEMOGLOBIN 30 pg (25-35); MEAN CORPUSCULAR HGB CONC 33 g/dL (31-37); MEAN CORPUSCULAR VOLUME 89 fL (79-100); MONO # 1.9 x10^3/uL (0.0-1.1); MONO % 13 % (0-9); NEUT # 11.2 x10^3/uL (1.8-7.7); NEUT % 77 % (31-73); PLATELET COUNT 224 x10^3/uL (140-400); RED BLOOD COUNT 4.42 x10^6/uL (4.30-5.70); RED CELL DISTRIBUTION WIDTH 13.5 % (11.5-14.5); WHITE BLOOD COUNT 14.6 x10^3/uL (4.0-11.0)
[2021-02-10 07:58] LABS: ALBUMIN 3.4 g/dL (3.4-5.0); ALBUMIN/GLOBULIN RATIO 1.2 (1.0-1.7); CALCIUM 8.1 mg/dL (8.5-10.1); CREATININE 3.4 mg/dL (0.7-1.3); GFR 22.5; POTASSIUM 4.2 mmol/L (3.5-5.1); TOTAL BILIRUBIN 0.4 mg/dL (0.2-1.0); TOTAL PROTEIN 6.3 g/dL (6.4-8.2)
[2021-02-10 08:31] LABS: FIO2 ABG 100
--- NOTE | 2021-02-10 08:42 | PDOC ---
PROGRESS NOTES Date of Service DATE: 02/10/21 TIME: 08:39 Assessment Large right temporo-occipital intraparenchymal bleed, most likely lobar hemorrhage from hypertension, consider venous sinus thrombosis, less likely in this location, aneurysmal bleed, head trauma (also unlikely). Had craniotomy 02/09 evening Plan As per neurosurgery Discussed poor prognosis with mother Subjective None Objective Vital Signs Date Time Temp Pulse Resp B/P (MAP) Pulse Ox O2 Delivery O2 Flow Rate FiO2 02/10/21 06:12 98 02/10/21 06:00 92 20 107/62 (77) Ventilator 02/10/21 04:00 99.6 99.6 Intake and Output 02/10/21 07:00 Intake Total 1656.47 ml Output Total 1205 ml Balance 451.47 ml Intake IV Total 1656.47 ml Output Urine Total 1205 ml PHYSICAL EXAM Sedated on vent, not responsive Pupils small, minimally reactive No spontaneous eye movements CN: no focal findings. Muscle tone: normal. Muscle strength: no response to pain DTR: 0+ Plantar reflex: silent Gait: not examined Sensory exam: not cooperative. Cerebellar: not cooperative Review of Relevant I have reviewed the following items neela (where applicable) has been applied. Labs Laboratory Tests Test 02/09/21 10:15 02/09/21 16:20 02/09/21 18:38 02/09/21 19:00 Hepatitis A IgM Antibody Nonreactive (Nonreactive) Hepatitis B Surface Antigen Nonreactive (Nonreactive) Hepatitis B Core IgM Antibody Nonreactive (Nonreactive) Hepatitis C IgG Antibody Reactive (Nonreactive) SARS-CoV-2 Antigen (Rapid) Negative (NEGATIVE) White Blood Count 15.0 x10^3/uL (4.0-11.0) Hemoglobin 14.1 g/dL (13.0-17.5) Hematocrit 41.9 % (39.0-53.0) Platelet Count 238 x10^3/uL (140-400) Prothrombin Time 14.2 SEC (11.7-14.0) Prothromb Time International Ratio 1.1 (0.8-1.1) Activated Partial Thromboplast Time 27 SEC (24-38) Sodium Level 133 mmol/L (136-145) Potassium Level 4.4 mmol/L (3.5-5.1) Chloride Level 98 mmol/L (98-107) Carbon Dioxide Level 22 mmol/L (21-32) Anion Gap 13 (6-14) Blood Urea Nitrogen 24 mg/dL (8-26) Creatinine 1.9 mg/dL (0.7-1.3) Estimated GFR (Cockcroft-Gault) 44.0 Glucose Level 239 mg/dL (70-99) Calcium Level 9.0 mg/dL (8.5-10.1) O2 Saturation 97 % (92-99) Arterial Blood pH 7.30 (7.35-7.45) Arterial Blood pCO2 at Patient Temp 46 mmHg (35-46) Arterial Blood pO2 at Patient Temp 107 mmHg (65-108) Arterial Blood HCO3 22 mmol/L (21-28) Arterial Blood Base Excess -4 mmol/L (-3-3) FiO2 100 Test 02/10/21 07:23 02/10/21 07:40 O2 Saturation 98 % (92-99) Arterial Blood pH 7.39 (7.35-7.45) Arterial Blood pCO2 at Patient Temp 35 mmHg (35-46) Arterial Blood pO2 at Patient Temp 120 mmHg (65-108) Arterial Blood HCO3 21 mmol/L (21-28) Arterial Blood Base Excess -3 mmol/L (-3-3) FiO2 100 White Blood Count 14.6 x10^3/uL (4.0-11.0) Red Blood Count 4.42 x10^6/uL (4.30-5.70) Hemoglobin 13.0 g/dL (13.0-17.5) Hematocrit 39.3 % (39.0-53.0) Mean Corpuscular Volume 89 fL (79-100) Mean Corpuscular Hemoglobin 30 pg (25-35) Mean Corpuscular Hemoglobin Concent 33 g/dL (31-37) Red Cell Distribution Width 13.5 % (11.5-14.5) Platelet Count 224 x10^3/uL (140-400) Neutrophils (%) (Auto) 77 % (31-73) Lymphocytes (%) (Auto) 10 % (24-48) Monocytes (%) (Auto) 13 % (0-9) Eosinophils (%) (Auto) 0 % (0-3) Basophils (%) (Auto) 1 % (0-3) Neutrophils # (Auto) 11.2 x10^3/uL (1.8-7.7) Lymphocytes # (Auto) 1.4 x10^3/uL (1.0-4.8) Monocytes # (Auto) 1.9 x10^3/uL (0.0-1.1) Eosinophils # (Auto) 0.0 x10^3/uL (0.0-0.7) Basophils # (Auto) 0.1 x10^3/uL (0.0-0.2) Sodium Level 136 mmol/L (136-145) Potassium Level 4.2 mmol/L (3.5-5.1) Chloride Level 99 mmol/L (98-107) Carbon Dioxide Level 23 mmol/L (21-32) Anion Gap 14 (6-14) Blood Urea Nitrogen 37 mg/dL (8-26) Creatinine 3.4 mg/dL (0.7-1.3) Estimated GFR (Cockcroft-Gault) 22.5 BUN/Creatinine Ratio 11 (6-20) Glucose Level 175 mg/dL (70-99) Calcium Level 8.1 mg/dL (8.5-10.1) Magnesium Level 2.0 mg/dL (1.8-2.4) Total Bilirubin 0.4 mg/dL (0.2-1.0) Aspartate Amino Transf (AST/SGOT) 17 U/L (15-37) Alanine Aminotransferase (ALT/SGPT) 21 U/L (16-63) Alkaline Phosphatase 66 U/L (46-116) Total Protein 6.3 g/dL (6.4-8.2) Albumin 3.4 g/dL (3.4-5.0) Albumin/Globulin Ratio 1.2 (1.0-1.7) Laboratory Tests Test 02/09/21 10:15 02/09/21 16:20 02/09/21 18:38 02/09/21 19:00 Hepatitis A IgM Antibody Nonreactive (Nonreactive) Hepatitis B Surface Antigen Nonreactive (Nonreactive) Hepatitis B Core IgM Antibody Nonreactive (Nonreactive) Hepatitis C IgG Antibody Reactive (Nonreactive) SARS-CoV-2 Antigen (Rapid) Negative (NEGATIVE) White Blood Count 15.0 x10^3/uL (4.0-11.0) Hemoglobin 14.1 g/dL (13.0-17.5) Hematocrit 41.9 % (39.0-53.0) Platelet Count 238 x10^3/uL (140-400) Prothrombin Time 14.2 SEC (11.7-14.0) Prothromb Time International Ratio 1.1 (0.8-1.1) Activated Partial Thromboplast Time 27 SEC (24-38) Sodium Level 133 mmol/L (136-145) Potassium Level 4.4 mmol/L (3.5-5.1) Chloride Level 98 mmol/L (98-107) Carbon Dioxide Level 22 mmol/L (21-32) Anion Gap 13 (6-14) Blood Urea Nitrogen 24 mg/dL (8-26) Creatinine 1.9 mg/dL (0.7-1.3) Estimated GFR (Cockcroft-Gault) 44.0 Glucose Level 239 mg/dL (70-99) Calcium Level 9.0 mg/dL (8.5-10.1) O2 Saturation 97 % (92-99) Arterial Blood pH 7.30 (7.35-7.45) Arterial Blood pCO2 at Patient Temp 46 mmHg (35-46) Arterial Blood pO2 at Patient Temp 107 mmHg (65-108) Arterial Blood HCO3 22 mmol/L (21-28) Arterial Blood Base Excess -4 mmol/L (-3-3) FiO2 100 Test 02/10/21 07:23 02/10/21 07:40 O2 Saturation 98 % (92-99) Arterial Blood pH 7.39 (7.35-7.45) Arterial Blood pCO2 at Patient Temp 35 mmHg (35-46) Arterial Blood pO2 at Patient Temp 120 mmHg (65-108) Arterial Blood HCO3 21 mmol/L (21-28) Arterial Blood Base Excess -3 mmol/L (-3-3) FiO2 100 White Blood Count 14.6 x10^3/uL (4.0-11.0) Red Blood Count 4.42 x10^6/uL (4.30-5.70) Hemoglobin 13.0 g/dL (13.0-17.5) Hematocrit 39.3 % (39.0-53.0) Mean Corpuscular Volume 89 fL (79-100) Mean Corpuscular Hemoglobin 30 pg (25-35) Mean Corpuscular Hemoglobin Concent 33 g/dL (31-37) Red Cell Distribution Width 13.5 % (11.5-14.5) Platelet Count 224 x10^3/uL (140-400) Neutrophils (%) (Auto) 77 % (31-73) Lymphocytes (%) (Auto) 10 % (24-48) Monocytes (%) (Auto) 13 % (0-9) Eosinophils (%) (Auto) 0 % (0-3) Basophils (%) (Auto) 1 % (0-3) Neutrophils # (Auto) 11.2 x10^3/uL (1.8-7.7) Lymphocytes # (Auto) 1.4 x10^3/uL (1.0-4.8) Monocytes # (Auto) 1.9 x10^3/uL (0.0-1.1) Eosinophils # (Auto) 0.0 x10^3/uL (0.0-0.7) Basophils # (Auto) 0.1 x10^3/uL (0.0-0.2) Sodium Level 136 mmol/L (136-145) Potassium Level 4.2 mmol/L (3.5-5.1) Chloride Level 99 mmol/L (98-107) Carbon Dioxide Level 23 mmol/L (21-32) Anion Gap 14 (6-14) Blood Urea Nitrogen 37 mg/dL (8-26) Creatinine 3.4 mg/dL (0.7-1.3) Estimated GFR (Cockcroft-Gault) 22.5 BUN/Creatinine Ratio 11 (6-20) Glucose Level 175 mg/dL (70-99) Calcium Level 8.1 mg/dL (8.5-10.1) Magnesium Level 2.0 mg/dL (1.8-2.4) Total Bilirubin 0.4 mg/dL (0.2-1.0) Aspartate Amino Transf (AST/SGOT) 17 U/L (15-37) Alanine Aminotransferase (ALT/SGPT) 21 U/L (16-63) Alkaline Phosphatase 66 U/L (46-116) Total Protein 6.3 g/dL (6.4-8.2) Albumin 3.4 g/dL (3.4-5.0) Albumin/Globulin Ratio 1.2 (1.0-1.7) Medications Current Medications Nicardipine HCl 50 mg/Sodium Chloride 250 ml @ 12.5 mls/hr CONT PRN IV SEE I/O RECORD Last administered on 02/09/21at 22:24; Start 02/09/21 at 06:15 Labetalol HCl (Normodyne Iv Push) 10 mg PRN Q2HR PRN IVP HYPERTENSION Last administered on 02/09/21at 06:35; Start 02/09/21 at 06:15 Lorazepam (Ativan Inj) 2 mg 1X ONCE IVP Last administered on 02/09/21at 10:54; Start 02/09/21 at 10:45; Stop 02/09/21 at 10:46; Status DC Lorazepam (Ativan Inj) 2 mg 1X ONCE IVP Last administered on 02/09/21at 11:00; Start 02/09/21 at 11:00; Stop 02/09/21 at 11:01; Status DC Fentanyl Citrate (Fentanyl 2ml Vial) 25 mcg PRN Q2HR PRN IVP MODERATE TO SEVERE PAIN Last administered on 02/09/21at 13:37; Start 02/09/21 at 13:30 Info (Review Meds) 1 ea PRN 1X PRN MC SEE COMMENTS; Start 02/09/21 at 15:00 Acetaminophen (Tylenol Supp) 650 mg PRN Q6HRS PRN SD FEVER > 100.5'F or 38'C; Start 02/09/21 at 15:00 Albuterol Sulfate (Ventolin Neb Soln) 2.5 mg PRN Q4HRS PRN NEB SHORTNESS OF BREATH; Start 02/09/21 at 15:15 Iohexol (Omnipaque 350 Mg/ml) 75 ml 1X ONCE IV Last administered on 02/09/21at 15:52; Start 02/09/21 at 15:30; Stop 02/09/21 at 15:35; Status DC Iohexol (Omnipaque 350 Mg/ml) 100 ml STK-MED ONCE .ROUTE ; Start 02/09/21 at 15:26; Stop 02/09/21 at 15:27; Status DC Info (CONTRAST GIVEN -- Rx MONITORING) 1 each PRN DAILY PRN MC SEE COMMENTS; Start 02/09/21 at 15:45; Stop 02/11/21 at 15:44 Propofol 100 ml @ As Directed STK-MED ONCE IV ; Start 02/09/21 at 15:51; Stop 02/09/21 at 15:51; Status DC Rocuronium Crane (Zemuron) 50 mg STK-MED ONCE .ROUTE ; Start 02/09/21 at 15:51; Stop 02/09/21 at 15:51; Status DC Lidocaine HCl (Lidocaine HCl 2% Abboject) 100 mg STK-MED ONCE .ROUTE ; Start 02/09/21 at 15:52; Stop 02/09/21 at 15:53; Status DC Propofol 100 ml @ 3.507 mls/ hr CONT PRN IV PER PROTOCOL Last administered on 02/10/21at 06:16; Start 02/09/21 at 16:15 Lidocaine HCl (Lidocaine HCl 2% Abboject) 100 mg 1X ONCE IV Last administered on 02/09/21 16:17; Start 02/09/21 at 16:15; Stop 02/09/21 at 16:17; Status DC Rocuronium Crane (Zemuron) 50 mg 1X ONCE IV Last administered on 02/09/21 16:17; Start 02/09/21 at 16:15; Stop 02/09/21 at 16:17; Status DC Rocuronium Crane (Zemuron) 100 mg STK-MED ONCE .ROUTE ; Start 02/09/21 at 16:31; Stop 02/09/21 at 16:32; Status DC Gelatin (Gelfoam Size 100) 1 each STK-MED ONCE .ROUTE Last administered on 02/09/21 17:49; Start 02/09/21 at 16:33; Stop 02/09/21 at 16:33; Status DC Bupivacaine HCl/ Epinephrine Bitart (Sensorcain-Epi 0.5%-1:[id number] Mpf) 30 ml STK-MED ONCE .ROUTE Last administered on 02/09/21 17:49; Start 02/09/21 at 16:33; Stop 02/09/21 at 16:33; Status DC Cellulose (Surgicel Hemostat 4x8) 1 each STK-MED ONCE .ROUTE Last administered on 02/09/21 18:38; Start 02/09/21 at 16:33; Stop 02/09/21 at 16:33; Status DC Thrombin 20,000 unit STK-MED ONCE TP Last administered on 02/09/21 17:49; Start 02/09/21 at 16:33; Stop 02/09/21 at 16:33; Status DC Fentanyl Citrate (Fentanyl 2ml Vial) 75 mcg 1X ONCE IVP Last administered on 02/09/21at 16:45; Start 02/09/21 at 16:45; Stop 02/09/21 at 16:47; Status DC Propofol (Diprivan) 200 mg 1X ONCE IV ; Start 02/09/21 at 17:15; Stop 02/09/21 at 17:16; Status DC Lidocaine HCl (Lidocaine HCl 2% Abboject) 100 mg 1X ONCE IV ; Start 02/09/21 at 17:15; Stop 02/09/21 at 17:16; Status DC Rocuronium Crane (Zemuron) 50 mg 1X ONCE IV ; Start 02/09/21 at 17:15; Stop 02/09/21 at 17:16; Status DC Propofol 100 ml @ 0 mls/hr CONT PRN PRN IV SEDATION; Start 02/09/21 at 17:15; Stop 02/10/21 at 05:14; Status DC Cefazolin Sodium (Ancef) 1 gm STK-MED ONCE IVP ; Start 02/09/21 at 17:28; Stop 02/09/21 at 17:28; Status DC Fentanyl Citrate (Fentanyl 2ml Vial) 100 mcg STK-MED ONCE .ROUTE ; Start 02/09/21 at 17:43; Stop 02/09/21 at 17:43; Status DC Rocuronium Crane (Zemuron) 100 mg STK-MED ONCE .ROUTE ; Start 02/09/21 at 17:58; Stop 02/09/21 at 17:59; Status DC Vecuronium Crane (Norcuron Bolus) 10 mg STK-MED ONCE IV ; Start 02/09/21 at 18:49; Stop 02/09/21 at 18:50; Status DC Sodium Chloride (SODIUM CHLORIDE 20ml) 20 ml STK-MED ONCE IJ ; Start 02/09/21 at 18:50; Stop 02/09/21 at 18:50; Status DC Sevoflurane (Ultane) 90 ml STK-MED ONCE IH ; Start 02/09/21 at 19:20; Stop 02/09/21 at 19:21; Status DC Fentanyl Citrate 30 ml @ 2.5 mls/hr CONT PRN IV SEE PROTOCOL Last administered on 02/09/21at 23:40; Start 02/09/21 at 23:15; Stop 02/10/21 at 04:43; Status DC Fentanyl Citrate 55 ml @ 0 mls/hr CONT PRN IV SEE I/O Last administered on 02/10/21at 05:42; Start 02/10/21 at 05:00 Potassium Chloride/Dextrose/ Sod Cl 1,000 ml @ 80 mls/hr [id number] IV ; Start 02/10/21 at 09:00 Pantoprazole Sodium (PROTONIX VIAL for IV PUSH) 40 mg DAILYAC IVP ; Start 02/10/21 at 09:00 Vitals/I & O Vital Sign - Last 24 Hours 02/09/21 02/09/21 02/09/21 02/09/21 09:00 10:00 11:00 12:00 Pulse 67 74 76 Resp 19 20 21 B/P (MAP) 133/70 (91) 150/73 (98) 126/60 (82) Pulse Ox 96 O2 Delivery Room Air Room Air Room Air Room Air 02/09/21 02/09/21 02/09/21 02/09/21 12:00 13:00 13:37 14:00 Temp 98.4 98.4 Pulse 98 72 81 Resp 33 28 28 B/P (MAP) 156/96 (116) 162/111 (128) 145/78 (100) Pulse Ox 97 O2 Delivery Room Air Room Air Room Air Room Air 02/09/21 02/09/21 02/09/21 02/09/21 16:07 16:17 16:40 16:40 Temp 98.4 98.4 Pulse 94 Resp 33 B/P (MAP) 179/99 148/80 (102) Pulse Ox 100 98 O2 Delivery Ventilator Mechanical Ventilator Ventilator 02/09/21 02/09/21 02/09/21 02/09/21 16:45 16:54 20:00 20:00 Temp 98.7 98.7 Pulse 92 Resp 16 B/P (MAP) 127/89 (102) 132/60 (84) Pulse Ox 100 O2 Delivery Ventilator Ventilator Mechanical Ventilator 02/09/21 02/09/21 02/09/21 02/09/21 20:00 20:37 21:00 22:00 Pulse 92 90 95 Resp 18 23 B/P (MAP) 132/60 (84) 107/55 (72) 119/64 (82) Pulse Ox 100 100 99 O2 Delivery Ventilator Ventilator Ventilator 02/09/21 02/09/21 02/09/21 02/10/21 22:50 23:00 23:59 00:00 Pulse 96 101 Resp 26 B/P (MAP) 127/63 (84) 138/68 (91) Pulse Ox 100 99 O2 Delivery Ventilator Ventilator Mechanical Ventilator 02/10/21 02/10/21 02/10/21 02/10/21 00:01 01:00 01:04 02:00 Temp 99.4 99.4 Pulse 101 101 101 Resp 24 22 21 B/P (MAP) 138/68 (91) 142/73 (96) 137/68 (91) Pulse Ox 100 100 100 100 O2 Delivery Ventilator Ventilator Ventilator Ventilator 02/10/21 02/10/21 02/10/21 02/10/21 02:54 03:00 04:00 04:00 Temp 99.6 99.6 Pulse 99 98 98 Resp 20 19 B/P (MAP) 118/61 (80) 112/60 (77) 112/60 (77) Pulse Ox 100 100 99 O2 Delivery Ventilator Ventilator Ventilator 02/10/21 02/10/21 02/10/21 02/10/21 04:00 05:00 05:42 05:46 Pulse 95 Resp 18 B/P (MAP) 105/63 (77) Pulse Ox 98 98 99 O2 Delivery Mechanical Ventilator Ventilator Ventilator 02/10/21 02/10/21 06:00 06:12 Pulse 92 Resp 20 B/P (MAP) 107/62 (77) Pulse Ox 98 98 O2 Delivery Ventilator Intake and Output 02/09/21 02/09/21 02/10/21 15:00 23:00 07:00 Intake Total 1656.47 ml Output Total 250 ml 720 ml 235 ml Balance -250 ml -720 ml 1421.[address] HEAD/BRAIN WO, CTA HEAD AND NECK W/WO CONTRAST History:Reason: pt went completely unresponsive [id number] / Spl. Instructions: / History: Technique: Noncontrast head CT was performed in correlation with this exam. After bolus of intravenous contrast, volumetric CT data acquisition was acquired of the head and neck. Multiplanar reconstruction images to include MIP and 3-D reconstruction images are submitted. Exposure: One or more of the following individualized dose reduction techniques were utilized for this examination: 1. Automated exposure control 2. Adjustment of the mA and/or kV according to patient size 3. Use of iterative reconstruction technique. Comparison: February 09, 2021 Any determination of stenosis is based on NASCET criteria. Noncontrast CT head: Unchanged right posterior cerebral intraparenchymal hemorrhage with surrounding edema involving the right parietal occipital and temporal lobes. Small right posterior falcine and posterior cerebral subdural hematoma, unchanged and better evaluated on the current examination due to motion artifact previously. Unchanged mass effect on the right posterior lateral ventricle with unchanged leftward midline shift measures 3 mm. Imaged orbits are unremarkable. Imaged paranasal sinuses and mastoid air cells are clear. Head CTA: ICA: Moderate carotid siphon atheromatous plaque with mild narrowing, left greater than right. No occlusion. MCA: No stenosis, occlusion or aneurysm. Injury displacement of right MCA branches due to intraparenchymal hematoma. ALAYNA: No stenosis, occlusion or aneurysm. [employer]: No stenosis, occlusion or aneurysm. Basilar artery: No stenosis, occlusion or aneurysm. Distal vertebral arteries: No stenosis, occlusion or aneurysm. No aneurysm or vascular malformation within the region of the right posterior cerebral hematoma. CT angiogram neck: Aortic arch: Degraded due to contrast bolus timing artifact Common carotid arteries: Degraded evaluation of the common carotid arteries due to patient motion. Internal carotid arteries: No stenosis, occlusion or dissection. 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 Patent right vertebral artery. Pulmonary emphysema with large right apical bullous disease. Soft tissues appear normal. Bones: Multilevel cervical spondylosis most prominent C4-C5 and C5-C6. Impression: Noncontrast head CT: 1. Unchanged right posterior cerebral intraparenchymal hematoma with adjacent edema and mass effect. 2. Small right posterior parafalcine and the posterior cerebral subdural hematoma, unchanged. CT angiogram head: 1. No evidence of arterial venous malformation or aneurysm within the region of the intraparenchymal hematoma. CT angiogram neck: 1. Degraded evaluation due to patient motion and technique. 2. Occlusion of the left vertebral artery 3. Pulmonary emphysema. Justicifation of Admission Dx: Justifications for Admission: Justification of Admission Dx: Yes Acute Hemorrhagic Stroke: Acute Hemorrhagic Stroke EITAN LORENZO MD Feb 10, 2021 08:42
[2021-02-10] MEDS ORDERED: POTASSIUM CL 20MEQ D5-0.45NACL 1,000 ML IV SCH (09:00)
--- NOTE | 2021-02-10 09:54 | NUR ---
SS following up with discharge planning. SS reviewed pt chart and discussed with pt RN. Pt's RN, notified SS that pt was found to have Hematoma with 7.4cm clot. Pt is currently on the vent at 70%. Hematoma was evacuated. Neurosurgery to see today. No sedation at this time. Self pay. Not stable. SS will continue to follow for discharge planning.
--- NOTE | 2021-02-10 10:00 | NUR ---
Sedation vacation today. Patient with eyes open, unable to track or follow commands. Moving both upper extremities reaching towards ET tube. Patient was wiggling toes on left lower extremity, no movement on right lower extremity. HR into the 140's BP 160's, fighting against the ventilator. Patient re sedated on Propofol and Fentanyl. Will monitor.
--- NOTE | 2021-02-10 10:34 | PDOC ---
[facility] PROGRESS NOTE Date of Service DOS: DATE: 02/10/21 TIME: 10:30 History of Present Illness History of Present Illness 02/10/2021 Patient seen and examined at bedside Underwent craniotomy yesterday due to unresponsiveness in the late afternoon; was also intubated Continues to have a poor neurologic status Neurology and neurosurgery following Discussed plan of care with bedside nurse Patient is a 61-year-old male transferred for to the ICU overnight due to hypertensive emergency and intracranial hemorrhage. Patient's mother at bedside provides most the history. She reports that patient had been in his usual state of health until yesterday morning when he reported feeling tired and having a headache. Patient mother reports he normally gets up early and goes outside however this was not the case yesterday. With this headache he took BC powder and went back to bed. Patient's mother reports that he was in and out of bed throughout most of the afternoon. Says patient did not eat anything yesterday which is very unusual for him. Approximately 1130 last night she had the patient get up to go to the bathroom and heard him fall. He however is able to get up and returned to bed; unknown if he hit his head at this time. Patient again woke up around 2 AM and woke up his mother asking for orange juice and then proceeded to fall again, she does not think he hit his head at this time. He was taken to hospital and found to have a systolic blood pressure greater than [address] scan found to have an intracranial hemorrhage. Due to severity of his condition he was transferred here. Patient's mother reports she is not aware of any past medical history other than hypertension which he intermittently takes hydrochlorothiazide for. Vitals/I&O Vitals/I&O: Vital Signs Date Time Temp Pulse Resp B/P (MAP) Pulse Ox O2 Delivery O2 Flow Rate FiO2 02/10/21 09:47 100 Ventilator 02/10/21 06:00 92 20 107/62 (77) 02/10/21 04:00 99.6 99.6 I & O 02/09/21 02/09/21 02/10/21 15:00 23:00 07:00 Intake Total 1656.47 ml Output Total 250 ml 720 ml 235 ml Balance -250 ml -720 ml 1421.47 ml Labs Labs: Laboratory Tests Test 02/09/21 16:20 02/09/21 18:38 02/09/21 19:00 02/10/21 07:23 SARS-CoV-2 Antigen (Rapid) Negative (NEGATIVE) White Blood Count 15.0 x10^3/uL (4.0-11.0) Hemoglobin 14.1 g/dL (13.0-17.5) Hematocrit 41.9 % (39.0-53.0) Platelet Count 238 x10^3/uL (140-400) Prothrombin Time 14.2 SEC (11.7-14.0) Prothromb Time International Ratio 1.1 (0.8-1.1) Activated Partial Thromboplast Time 27 SEC (24-38) Sodium Level 133 mmol/L (136-145) Potassium Level 4.4 mmol/L (3.5-5.1) Chloride Level 98 mmol/L (98-107) Carbon Dioxide Level 22 mmol/L (21-32) Anion Gap 13 (6-14) Blood Urea Nitrogen 24 mg/dL (8-26) Creatinine 1.9 mg/dL (0.7-1.3) Estimated GFR (Cockcroft-Gault) 44.0 Glucose Level 239 mg/dL (70-99) Calcium Level 9.0 mg/dL (8.5-10.1) O2 Saturation 97 % (92-99) 98 % (92-99) Arterial Blood pH 7.30 (7.35-7.45) 7.39 (7.35-7.45) Arterial Blood pCO2 at Patient Temp 46 mmHg (35-46) 35 mmHg (35-46) Arterial Blood pO2 at Patient Temp 107 mmHg (65-108) 120 mmHg (65-108) Arterial Blood HCO3 22 mmol/L (21-28) 21 mmol/L (21-28) Arterial Blood Base Excess -4 mmol/L (-3-3) -3 mmol/L (-3-3) FiO2 100 100 Test 02/10/21 07:40 White Blood Count 14.6 x10^3/uL (4.0-11.0) Red Blood Count 4.42 x10^6/uL (4.30-5.70) Hemoglobin 13.0 g/dL (13.0-17.5) Hematocrit 39.3 % (39.0-53.0) Mean Corpuscular Volume 89 fL (79-100) Mean Corpuscular Hemoglobin 30 pg (25-35) Mean Corpuscular Hemoglobin Concent 33 g/dL (31-37) Red Cell Distribution Width 13.5 % (11.5-14.5) Platelet Count 224 x10^3/uL (140-400) Neutrophils (%) (Auto) 77 % (31-73) Lymphocytes (%) (Auto) 10 % (24-48) Monocytes (%) (Auto) 13 % (0-9) Eosinophils (%) (Auto) 0 % (0-3) Basophils (%) (Auto) 1 % (0-3) Neutrophils # (Auto) 11.2 x10^3/uL (1.8-7.7) Lymphocytes # (Auto) 1.4 x10^3/uL (1.0-4.8) Monocytes # (Auto) 1.9 x10^3/uL (0.0-1.1) Eosinophils # (Auto) 0.0 x10^3/uL (0.0-0.7) Basophils # (Auto) 0.1 x10^3/uL (0.0-0.2) Sodium Level 136 mmol/L (136-145) Potassium Level 4.2 mmol/L (3.5-5.1) Chloride Level 99 mmol/L (98-107) Carbon Dioxide Level 23 mmol/L (21-32) Anion Gap 14 (6-14) Blood Urea Nitrogen 37 mg/dL (8-26) Creatinine 3.4 mg/dL (0.7-1.3) Estimated GFR (Cockcroft-Gault) 22.5 BUN/Creatinine Ratio 11 (6-20) Glucose Level 175 mg/dL (70-99) Calcium Level 8.1 mg/dL (8.5-10.1) Magnesium Level 2.0 mg/dL (1.8-2.4) Total Bilirubin 0.4 mg/dL (0.2-1.0) Aspartate Amino Transf (AST/SGOT) 17 U/L (15-37) Alanine Aminotransferase (ALT/SGPT) 21 U/L (16-63) Alkaline Phosphatase 66 U/L (46-116) Total Protein 6.3 g/dL (6.4-8.2) Albumin 3.4 g/dL (3.4-5.0) Albumin/Globulin Ratio 1.2 (1.0-1.7) Assessment and Plan Assessmemt and Plan Patient is a 61-year-old -[place] male presenting as transfer due to intracranial hemorrhage and hypertensive emergency Intracranial hemorrhage, hypertensive emergency -Presented to outside hospital yesterday complaining of headache and multiple falls -Has systolic blood pressure over 200 -CT scans showed intracerebral hemorrhages, confirmed on repeat here -Neurosurgery consulted performed craniotomy on February 09 after patient went unresponsive -Neurology consulted -Overall prognosis is poor, nursing has contacted [place] transplant network for evaluation. Problems: (1) Status post craniectomy (2) Intracranial hemorrhage (3) Hypertensive emergency Comment Review of Relevant I have reviewed the following items neela (where applicable) has been applied. Medications: Current Medications Medications (Trade) Dose Ordered Sig/Lorraine Route PRN Reason Start Time Stop Time Status Last Admin Dose Admin Lorazepam (Ativan Inj) 2 mg 1X ONCE IVP 02/09/21 10:45 02/09/21 10:46 DC 02/09/21 10:54 Lorazepam (Ativan Inj) 2 mg 1X ONCE IVP 02/09/21 11:00 02/09/21 11:01 DC 02/09/21 11:00 Fentanyl Citrate (Fentanyl 2ml Vial) 25 mcg PRN Q2HR PRN IVP MODERATE TO SEVERE PAIN 02/09/21 13:30 02/09/21 13:37 Iohexol (Omnipaque 350 Mg/ml) 75 ml 1X ONCE IV 02/09/21 15:30 02/09/21 15:35 DC 02/09/21 15:52 Propofol 100 ml @ 3.507 mls/ hr CONT PRN IV PER PROTOCOL 02/09/21 16:15 02/10/21 06:16 Lidocaine HCl (Lidocaine HCl 2% Abboject) 100 mg 1X ONCE IV 02/09/21 16:15 02/09/21 16:17 DC 02/09/21 16:17 Rocuronium [place] (Zemuron) 50 mg 1X ONCE IV 02/09/21 16:15 02/09/21 16:17 DC 02/09/21 16:17 Gelatin (Gelfoam Size 100) 1 each STK-MED ONCE .ROUTE 02/09/21 16:33 02/09/21 16:33 DC 02/09/21 17:49 Bupivacaine HCl/ Epinephrine Bitart (Sensorcain-Epi 0.5%-1:005106 Mpf) 30 ml STK-MED ONCE .ROUTE 02/09/21 16:33 02/09/21 16:33 DC 02/09/21 17:49 Cellulose (Surgicel Hemostat 4x8) 1 each STK-MED ONCE .ROUTE 02/09/21 16:33 02/09/21 16:33 DC 02/09/21 18:38 Thrombin 20,000 unit STK-MED ONCE TP 02/09/21 16:33 02/09/21 16:33 DC 02/09/21 17:49 Fentanyl Citrate (Fentanyl 2ml Vial) 75 mcg 1X ONCE IVP 02/09/21 16:45 02/09/21 16:47 DC 02/09/21 16:45 Fentanyl Citrate 30 ml @ 2.5 mls/hr CONT PRN IV SEE PROTOCOL 02/09/21 23:15 02/10/21 04:43 DC 02/09/21 23:40 Fentanyl Citrate 55 ml @ 0 mls/hr CONT PRN IV SEE I/O 02/10/21 05:00 02/10/21 05:42 Justifications for Admission Other Justification MARCUS ASH MD Feb 10, 2021 10:34
--- NOTE | 2021-02-10 11:09 | CONS ---
DATE OF CONSULTATION: 02/10/2021 PULMONARY CONSULTATION ATTENDING PHYSICIAN: Dr. Salas. REASON FOR CONSULTATION: Respiratory failure, intracranial hemorrhage. HISTORY OF PRESENT ILLNESS: The patient is a 61-year-old male who has long history of tobacco use. He was brought into the hospital with hypertensive emergency and intracranial hemorrhage. The patient was in his usual health when he started to feel tired and was starting to have headache. The patient got up to the bathroom and mother heard him falling. The patient was brought into [facility] where a CT of the head was done and was noted to have a large hematoma. The patient seen by Neurology and also by Neurosurgery. He had a CTA of the brain and there was no aneurysm. The patient was intubated by Anesthesia and underwent a craniotomy and he is currently off of sedation, on mechanical ventilation. He is not responsive. His arterial blood gases reveals a pH of 7.39, pCO2 of 35 and a pO2 of 120 on 100% FIO2. Chest x-ray shows mild patchy opacities, likely atelectasis. Consultation requested for further evaluation and management. PAST MEDICAL HISTORY: History of tobaccoism, likely COPD; history of hypertension and questionable hepatitis. SURGERIES: Recent craniotomy. ALLERGIES: None. MEDICATIONS: Reviewed as listed in the MRAD. SYSTEM REVIEW: Unable to obtain from the patient. SOCIAL HISTORY: Long history of tobaccoism. PHYSICAL EXAMINATION: GENERAL: On examination, he is intubated. VITAL SIGNS: Pupils do react, but sluggish. Pulse ox is 100%. He is on 70% FIO2 and PEEP of 3. HEENT: Sclerae nonicteric. NECK: With no JVD. LUNGS: With diminished breath sounds. CARDIOVASCULAR: With a regular rate ____. ABDOMEN: Soft. EXTREMITIES: With no pitting edema. LABORATORY DATA: Reviewed. COVID is negative. BUN and creatinine 37 and 3.4, which has worsened. INR 1.1. ABGs discussed in my history of present illness. White cell count 14.6. IMPRESSION: 1. Acute hypoxic respiratory failure secondary to intracranial hemorrhage and hypertensive emergency. 2. Hypoxia secondary to basilar atelectasis contributed by encephalopathy. Need to continue to follow chest x-rays. 3. Long history of tobaccoism. CT angiogram showed bullous emphysema in the upper lobes. 3. Acute kidney injury. Nephrology consulted. 4. Leukocytosis, likely reactive. RECOMMENDATIONS: 1. We will continue present assist control mode. I have increased the PEEP to 5 and wean FiO2 keeping saturation 94% and above. 2. We will continue to assess neuro status while off sedation for his ability to wean. 3. Follow Neurosurgery's recommendations. 4. Monitor chest x-rays. 5. Monitor renal function. 6. Nephrology's recommendations. 7. Bronchodilators. 8. Discussed with the patient's family and girlfriend at the bedside. We will discuss with RN and RT and Dr Field. Critical care time 35 minutes. RASTA/JUAN R DR: RASTA/elliott TID: [id number]
[2021-02-10 11:37] LABS: % LYMPHS 13 % (24-48); % MONOS 16 % (0-10); % SEGS 71 % (35-66); PLT ESTIMATE ADEQUATE (ADEQUATE)
[2021-02-10] MEDS: PANTOPRAZOLE IV PUSH 40 MG VIAL. IVP SCH (12:03)
--- NOTE | 2021-02-10 12:07 | RAD ---
CT HEAD WITHOUT CONTRAST 02/10/2021 11:35 AM Indication: Reason: F/U ICH / Spl. Instructions: / History: Comparison: CT head without contrast, yesterday Procedure: Multidetector CT imaging of the head was performed without the administration of contrast. Findings: Redemonstration of multifocal intracranial hemorrhage. There is multifocal subarachnoid hem orrhage throughout the left frontal and parietal lobes slightly more prominent than on comparison joe dy. There is a small amount of blood in the posterior horn of the lateral ventricle on the left. No h ydrocephalus is identified. There is a left occipital intraparenchymal contusion/hemorrhage. There's been interval right occipital craniotomy. Hemorrhage and gas is seen in the right occipital lobe. A large focus of hemorrhage with surrounding edema involving the right temporal, occipital, parietal lo bes is similar. The overlying subdural component has decreased/resolved. Scattered subarachnoid hemor rhage is seen in the right parietal and occipital lobes. There is decreased mass effect on the right lateral ventricle in the interim. Basilar cisterns remain patent. Pression: 1.Interval right occipital craniotomy with resolution of the previously seen small right occipital [place] bdural hematoma, with interval decreasing mass effect on the right. 2. Large right sided intraparenchymal hemorrhage with surrounding edema involving the occipital, lalo etal, and temporal lobes is otherwise similar 3. Scattered subarachnoid hemorrhage ,, slightly more prominent on the left 4. Small amount of left intraventricular hemorrhage without hydrocephalus CT DOSING PQRS STATEMENT: One or more of the following individualized dose reduction techniques were utilized for this examinat ion: 1. Automated exposure control 2. Adjustment of the mA and/or kV according to patient size 3. Use of iterative reconstruction technique Electronically signed by: Joao Tom MD (02/10/2021 12:05 PM) [id number]
--- NOTE | 2021-02-10 12:31 | PDOC2 ---
CONSULT Date of Consult Date of Consult DATE: 02/10/21 TIME: 12:23 Reason for Consult Reason for Consult: MARVIN Identification/Chief Complaint Chief Complaint Unable to obtain Source Source: Chart review History of Present Illness Reason for Visit: Patient is a 61-year-old AAM male admiited on 02/09 with hypertensive emergency and intracranial hemorrhage. History obtained from chart review and family at bedside as patient is Intubated/MV - he was in his usual state of health until 02/08 morning when he reported feeling tired and having a headache. He tool BC powder for headache and went back to bed. He was in and out of bed throughout most of the afternoon, did not eat anything . Approximately 1130 pm she had the patient get up to go to the bathroom and heard him fall. He was able to get up and returned to bed; unknown if he hit his head at this time. Patient again woke up around 2 AM and woke up his mother asking for orange juice and fell again, she does not think he hit his head at this time. He was brought to [facility] ER found to have a systolic blood pressure greater than [address] of the head showed an large intracranial hemorrhage. He was transferred to [facility] , seen by Neurology and also by Neurosurgery. CTA of the brain did not show aneurysm. He underwent a craniotomy last night ,he is currently off of sedation, on mechanical ventilation. Patient's mother reports she is not aware of any past medical history other than hypertension which he intermittently takes hydrochlorothiazide for. His mother reports he was Diagnosed with HTN tyears ago was prescribed at least HCTZ, he didint take his meds and has not seen a doctor for years. He was also told that he has to watch his BS (no known Dx of Dx in the past) He does have a history of using Cocaine occasionally ,Tobacco smoker . She is not aware of any Dx of CKD in the past, no hx of Kidney stones/ No known FHX of ESRD . No reported urinary complaints, hematuria, No N/V/D. C/O dizziness for past 2-3 days , No F/C Past Medical History Cardiovascular: CHF Pulmonary: Asthma, COPD Hepatobiliary: Hep A/B/C Past Surgical History Past Surgical History: No pertinent history Family History Family History Non contributory Social History Social History Smokes Tobacco Occasionally Cocaine ETOH- not a heavy drinker, socially Not , has girlfriend Current Medications Current Medications Current Medications Nicardipine HCl 50 mg/Sodium Chloride 250 ml @ 12.5 mls/hr CONT PRN IV SEE I/O RECORD Last administered on 02/09/21at 22:24; Start 02/09/21 at 06:15 Labetalol HCl (Normodyne Iv Push) 10 mg PRN Q2HR PRN IVP HYPERTENSION Last administered on 02/09/21at 06:35; Start 02/09/21 at 06:15 Lorazepam (Ativan Inj) 2 mg 1X ONCE IVP Last administered on 02/09/21at 10:54; Start 02/09/21 at 10:45; Stop 02/09/21 at 10:46; Status DC Lorazepam (Ativan Inj) 2 mg 1X ONCE IVP Last administered on 02/09/21at 11:00; Start 02/09/21 at 11:00; Stop 02/09/21 at 11:01; Status DC Fentanyl Citrate (Fentanyl 2ml Vial) 25 mcg PRN Q2HR PRN IVP MODERATE TO SEVERE PAIN Last administered on 02/09/21at 13:37; Start 02/09/21 at 13:30 Info (Review Meds) 1 ea PRN 1X PRN MC SEE COMMENTS; Start 02/09/21 at 15:00 Acetaminophen (Tylenol Supp) 650 mg PRN Q6HRS PRN VT FEVER > 100.5'F or 38'C; Start 02/09/21 at 15:00 Albuterol Sulfate (Ventolin Neb Soln) 2.5 mg PRN Q4HRS PRN NEB SHORTNESS OF BREATH; Start 02/09/21 at 15:15 Iohexol (Omnipaque 350 Mg/ml) 75 ml 1X ONCE IV Last administered on 02/09/21at 15:52; Start 02/09/21 at 15:30; Stop 02/09/21 at 15:35; Status DC Iohexol (Omnipaque 350 Mg/ml) 100 ml STK-MED ONCE .ROUTE ; Start 02/09/21 at 15:26; Stop 02/09/21 at 15:27; Status DC Info (CONTRAST GIVEN -- Rx MONITORING) 1 each PRN DAILY PRN MC SEE COMMENTS; Start 02/09/21 at 15:45; Stop 02/11/21 at 15:44 Propofol 100 ml @ As Directed STK-MED ONCE IV ; Start 02/09/21 at 15:51; Stop 02/09/21 at 15:51; Status DC Rocuronium [place] (Zemuron) 50 mg STK-MED ONCE .ROUTE ; Start 02/09/21 at 15:51; Stop 02/09/21 at 15:51; Status DC Lidocaine HCl (Lidocaine HCl 2% Abboject) 100 mg STK-MED ONCE .ROUTE ; Start 02/09/21 at 15:52; Stop 02/09/21 at 15:53; Status DC Propofol 100 ml @ 3.507 mls/ hr CONT PRN IV PER PROTOCOL Last administered on 02/10/21at 12:03; Start 02/09/21 at 16:15 Lidocaine HCl (Lidocaine HCl 2% Abboject) 100 mg 1X ONCE IV Last administered on 02/09/21at 16:17; Start 02/09/21 at 16:15; Stop 02/09/21 at 16:17; Status DC Rocuronium [place] (Zemuron) 50 mg 1X ONCE IV Last administered on 02/09/21at 16:17; Start 02/09/21 at 16:15; Stop 02/09/21 at 16:17; Status DC Rocuronium [place] (Zemuron) 100 mg STK-MED ONCE .ROUTE ; Start 02/09/21 at 16:31; Stop 02/09/21 at 16:32; Status DC Gelatin (Gelfoam Size 100) 1 each STK-MED ONCE .ROUTE Last administered on 02/09/21at 17:49; Start 02/09/21 at 16:33; Stop 02/09/21 at 16:33; Status DC Bupivacaine HCl/ Epinephrine Bitart (Sensorcain-Epi 0.5%-1:300756 Mpf) 30 ml STK-MED ONCE .ROUTE Last administered on 02/09/21at 17:49; Start 02/09/21 at 16:33; Stop 02/09/21 at 16:33; Status DC Cellulose (Surgicel Hemostat 4x8) 1 each STK-MED ONCE .ROUTE Last administered on 02/09/21at 18:38; Start 02/09/21 at 16:33; Stop 02/09/21 at 16:33; Status DC Thrombin 20,000 unit STK-MED ONCE TP Last administered on 02/09/21at 17:49; Start 02/09/21 at 16:33; Stop 02/09/21 at 16:33; Status DC Fentanyl Citrate (Fentanyl 2ml Vial) 75 mcg 1X ONCE IVP Last administered on 02/09/21at 16:45; Start 02/09/21 at 16:45; Stop 02/09/21 at 16:47; Status DC Propofol (Diprivan) 200 mg 1X ONCE IV ; Start 02/09/21 at 17:15; Stop 02/09/21 at 17:16; Status DC Lidocaine HCl (Lidocaine HCl 2% Abboject) 100 mg 1X ONCE IV ; Start 02/09/21 at 17:15; Stop 02/09/21 at 17:16; Status DC Rocuronium [place] (Zemuron) 50 mg 1X ONCE IV ; Start 02/09/21 at 17:15; Stop 02/09/21 at 17:16; Status DC Propofol 100 ml @ 0 mls/hr CONT PRN PRN IV SEDATION; Start 02/09/21 at 17:15; Stop 02/10/21 at 05:14; Status DC Cefazolin Sodium (Ancef) 1 gm STK-MED ONCE IVP ; Start 02/09/21 at 17:28; Stop 02/09/21 at 17:28; Status DC Fentanyl Citrate (Fentanyl 2ml Vial) 100 mcg STK-MED ONCE .ROUTE ; Start 02/09/21 at 17:43; Stop 02/09/21 at 17:43; Status DC Rocuronium [place] (Zemuron) 100 mg STK-MED ONCE .ROUTE ; Start 02/09/21 at 17:58; Stop 02/09/21 at 17:59; Status DC Vecuronium [place] (Norcuron Bolus) 10 mg STK-MED ONCE IV ; Start 02/09/21 at 18:49; Stop 02/09/21 at 18:50; Status DC Sodium Chloride (SODIUM CHLORIDE 20ml) 20 ml STK-MED ONCE IJ ; Start 02/09/21 at 18:50; Stop 02/09/21 at 18:50; Status DC Sevoflurane (Ultane) 90 ml STK-MED ONCE IH ; Start 02/09/21 at 19:20; Stop 02/09/21 at 19:21; Status DC Fentanyl Citrate 30 ml @ 2.5 mls/hr CONT PRN IV SEE PROTOCOL Last administered on 02/09/21at 23:40; Start 02/09/21 at 23:15; Stop 02/10/21 at 04:43; Status DC Fentanyl Citrate 55 ml @ 0 mls/hr CONT PRN IV SEE I/O Last administered on 02/10/21at 05:42; Start 02/10/21 at 05:00 Potassium Chloride/Dextrose/ Sod Cl 1,000 ml @ 80 mls/hr [id number] IV ; Start 02/10/21 at 09:00 Pantoprazole Sodium (PROTONIX VIAL for IV PUSH) 40 mg DAILYAC IVP Last administered on 02/10/21at 12:03; Start 02/10/21 at 09:00 Allergies Allergies: Coded Allergies: No Known Drug Allergies (Unverified , 02/09/21) ROS Review of System Unable to Obtain 2//2 Intubated/MV Physical Exam Physical Exam General Intubated/MV HEEN Intubated Neck Supple Lungs CTA ant CV S1 S2 Abd Soft, NT Ext No LE edema, No cyanosis Moore in place Skin No rash Neuro - defer exam per neurologist and Neurosurgeon Vital Signs Vital Signs Date Time Temp Pulse Resp B/P (MAP) Pulse Ox O2 Delivery O2 Flow Rate FiO2 02/10/21 11:49 98 Ventilator 02/10/21 10:00 94 46 116/56 (76) 02/10/21 08:00 99.9 99.9 Assessment & Plan MARVIN -ATN/ post IV contrast , currently Non Oliguric ,Creat at presentation to [facility] was 1.9 , worsening renal function Supportive care, Maintain Hydration, Electrolytes stable, No emergent indication for Dialysis currently, Monitor and re-evaluate , Discussed at great length with family at bedside Large right temporo-occipital intraparenchymal bleed, most likely lobar hemorrhage s/p craniotomy 02/09 evening Hypertensive emergency POA Acute hypoxic respiratory failure secondary to intracranial hemorrhage and hypertensive emergency. Hypoxia secondary to basilar atelectasis contributed by encephalopathy Long history of tobaccoism. CT angiogram showed bullous emphysema in the upper lobes. Labs Labs Laboratory Tests Test 02/09/21 10:15 02/09/21 16:20 02/09/21 18:38 02/09/21 19:00 Hepatitis A IgM Antibody Nonreactive (Nonreactive) Hepatitis B Surface Antigen Nonreactive (Nonreactive) Hepatitis B Core IgM Antibody Nonreactive (Nonreactive) Hepatitis C IgG Antibody Reactive (Nonreactive) SARS-CoV-2 Antigen (Rapid) Negative (NEGATIVE) White Blood Count 15.0 x10^3/uL (4.0-11.0) Hemoglobin 14.1 g/dL (13.0-17.5) Hematocrit 41.9 % (39.0-53.0) Platelet Count 238 x10^3/uL (140-400) Prothrombin Time 14.2 SEC (11.7-14.0) Prothromb Time International Ratio 1.1 (0.8-1.1) Activated Partial Thromboplast Time 27 SEC (24-38) Sodium Level 133 mmol/L (136-145) Potassium Level 4.4 mmol/L (3.5-5.1) Chloride Level 98 mmol/L (98-107) Carbon Dioxide Level 22 mmol/L (21-32) Anion Gap 13 (6-14) Blood Urea Nitrogen 24 mg/dL (8-26) Creatinine 1.9 mg/dL (0.7-1.3) Estimated GFR (Cockcroft-Gault) 44.0 Glucose Level 239 mg/dL (70-99) Calcium Level 9.0 mg/dL (8.5-10.1) O2 Saturation 97 % (92-99) Arterial Blood pH 7.30 (7.35-7.45) Arterial Blood pCO2 at Patient Temp 46 mmHg (35-46) Arterial Blood pO2 at Patient Temp 107 mmHg (65-108) Arterial Blood HCO3 22 mmol/L (21-28) Arterial Blood Base Excess -4 mmol/L (-3-3) FiO2 100 Test 02/10/21 07:23 02/10/21 07:40 O2 Saturation 98 % (92-99) Arterial Blood pH 7.39 (7.35-7.45) Arterial Blood pCO2 at Patient Temp 35 mmHg (35-46) Arterial Blood pO2 at Patient Temp 120 mmHg (65-108) Arterial Blood HCO3 21 mmol/L (21-28) Arterial Blood Base Excess -3 mmol/L (-3-3) FiO2 100 White Blood Count 14.6 x10^3/uL (4.0-11.0) Red Blood Count 4.42 x10^6/uL (4.30-5.70) Hemoglobin 13.0 g/dL (13.0-17.5) Hematocrit 39.3 % (39.0-53.0) Mean Corpuscular Volume 89 fL (79-100) Mean Corpuscular Hemoglobin 30 pg (25-35) Mean Corpuscular Hemoglobin Concent 33 g/dL (31-37) Red Cell Distribution Width 13.5 % (11.5-14.5) Platelet Count 224 x10^3/uL (140-400) Neutrophils (%) (Auto) 77 % (31-73) Lymphocytes (%) (Auto) 10 % (24-48) Monocytes (%) (Auto) 13 % (0-9) Eosinophils (%) (Auto) 0 % (0-3) Basophils (%) (Auto) 1 % (0-3) Neutrophils # (Auto) 11.2 x10^3/uL (1.8-7.7) Lymphocytes # (Auto) 1.4 x10^3/uL (1.0-4.8) Monocytes # (Auto) 1.9 x10^3/uL (0.0-1.1) Eosinophils # (Auto) 0.0 x10^3/uL (0.0-0.7) Basophils # (Auto) 0.1 x10^3/uL (0.0-0.2) Segmented Neutrophils % 71 % (35-66) Lymphocytes % 13 % (24-48) Monocytes % 16 % (0-10) Platelet Estimate Adequate (ADEQUATE) Sodium Level 136 mmol/L (136-145) Potassium Level 4.2 mmol/L (3.5-5.1) Chloride Level 99 mmol/L (98-107) Carbon Dioxide Level 23 mmol/L (21-32) Anion Gap 14 (6-14) Blood Urea Nitrogen 37 mg/dL (8-26) Creatinine 3.4 mg/dL (0.7-1.3) Estimated GFR (Cockcroft-Gault) 22.5 BUN/Creatinine Ratio 11 (6-20) Glucose Level 175 mg/dL (70-99) Calcium Level 8.1 mg/dL (8.5-10.1) Magnesium Level 2.0 mg/dL (1.8-2.4) Total Bilirubin 0.4 mg/dL (0.2-1.0) Aspartate Amino Transf (AST/SGOT) 17 U/L (15-37) Alanine Aminotransferase (ALT/SGPT) 21 U/L (16-63) Alkaline Phosphatase 66 U/L (46-116) Total Protein 6.3 g/dL (6.4-8.2) Albumin 3.4 g/dL (3.4-5.0) Albumin/Globulin Ratio 1.2 (1.0-1.7) Laboratory Tests Test 02/09/21 16:20 02/09/21 18:38 02/09/21 19:00 02/10/21 07:23 SARS-CoV-2 Antigen (Rapid) Negative (NEGATIVE) White Blood Count 15.0 x10^3/uL (4.0-11.0) Hemoglobin 14.1 g/dL (13.0-17.5) Hematocrit 41.9 % (39.0-53.0) Platelet Count 238 x10^3/uL (140-400) Prothrombin Time 14.2 SEC (11.7-14.0) Prothromb Time International Ratio 1.1 (0.8-1.1) Activated Partial Thromboplast Time 27 SEC (24-38) Sodium Level 133 mmol/L (136-145) Potassium Level 4.4 mmol/L (3.5-5.1) Chloride Level 98 mmol/L (98-107) Carbon Dioxide Level 22 mmol/L (21-32) Anion Gap 13 (6-14) Blood Urea Nitrogen 24 mg/dL (8-26) Creatinine 1.9 mg/dL (0.7-1.3) Estimated GFR (Cockcroft-Gault) 44.0 Glucose Level 239 mg/dL (70-99) Calcium Level 9.0 mg/dL (8.5-10.1) O2 Saturation 97 % (92-99) 98 % (92-99) Arterial Blood pH 7.30 (7.35-7.45) 7.39 (7.35-7.45) Arterial Blood pCO2 at Patient Temp 46 mmHg (35-46) 35 mmHg (35-46) Arterial Blood pO2 at Patient Temp 107 mmHg (65-108) 120 mmHg (65-108) Arterial Blood HCO3 22 mmol/L (21-28) 21 mmol/L (21-28) Arterial Blood Base Excess -4 mmol/L (-3-3) -3 mmol/L (-3-3) FiO2 100 100 Test 02/10/21 07:40 White Blood Count 14.6 x10^3/uL (4.0-11.0) Red Blood Count 4.42 x10^6/uL (4.30-5.70) Hemoglobin 13.0 g/dL (13.0-17.5) Hematocrit 39.3 % (39.0-53.0) Mean Corpuscular Volume 89 fL (79-100) Mean Corpuscular Hemoglobin 30 pg (25-35) Mean Corpuscular Hemoglobin Concent 33 g/dL (31-37) Red Cell Distribution Width 13.5 % (11.5-14.5) Platelet Count 224 x10^3/uL (140-400) Neutrophils (%) (Auto) 77 % (31-73) Lymphocytes (%) (Auto) 10 % (24-48) Monocytes (%) (Auto) 13 % (0-9) Eosinophils (%) (Auto) 0 % (0-3) Basophils (%) (Auto) 1 % (0-3) Neutrophils # (Auto) 11.2 x10^3/uL (1.8-7.7) Lymphocytes # (Auto) 1.4 x10^3/uL (1.0-4.8) Monocytes # (Auto) 1.9 x10^3/uL (0.0-1.1) Eosinophils # (Auto) 0.0 x10^3/uL (0.0-0.7) Basophils # (Auto) 0.1 x10^3/uL (0.0-0.2) Segmented Neutrophils % 71 % (35-66) Lymphocytes % 13 % (24-48) Monocytes % 16 % (0-10) Platelet Estimate Adequate (ADEQUATE) Sodium Level 136 mmol/L (136-145) Potassium Level 4.2 mmol/L (3.5-5.1) Chloride Level 99 mmol/L (98-107) Carbon Dioxide Level 23 mmol/L (21-32) Anion Gap 14 (6-14) Blood Urea Nitrogen 37 mg/dL (8-26) Creatinine 3.4 mg/dL (0.7-1.3) Estimated GFR (Cockcroft-Gault) 22.5 BUN/Creatinine Ratio 11 (6-20) Glucose Level 175 mg/dL (70-99) Calcium Level 8.1 mg/dL (8.5-10.1) Magnesium Level 2.0 mg/dL (1.8-2.4) Total Bilirubin 0.4 mg/dL (0.2-1.0) Aspartate Amino Transf (AST/SGOT) 17 U/L (15-37) Alanine Aminotransferase (ALT/SGPT) 21 U/L (16-63) Alkaline Phosphatase 66 U/L (46-116) Total Protein 6.3 g/dL (6.4-8.2) Albumin 3.4 g/dL (3.4-5.0) Albumin/Globulin Ratio 1.2 (1.0-1.7) Review All relevant outside records, renal labs, imaging studies, telemetry/EKG's were reviewed. Images Images CT HEAD/BRAIN WO, CTA HEAD AND NECK W/WO CONTRAST History:Reason: pt went completely unresponsive [phone] / Spl. Instructions : / History: Technique: Noncontrast head CT was performed in correlation with this exam. After bolus of intravenous contrast, volumetric CT data acquisition was acquired of the head and neck. Multiplanar reconstruction images to include MIP and 3-D reconstruction images are submitted. Exposure: One or more of the following individualized dose reduction techniques were utilized for this examination: 1. Automated exposure control 2. Adjustment of the mA and/or kV according to patient size 3. Use of iterative reconstruction technique. Comparison: February 09, 2021 Any determination of stenosis is based on NASCET criteria. Noncontrast CT head: Unchanged right posterior cerebral intraparenchymal hemorrhage with surrounding edema involving the right parietal occipital and temporal lobes. Small right posterior falcine and posterior cerebral subdural hematoma, unchanged and better evaluated on the current examination due to motion artifact previously. Unchanged mass effect on the right posterior lateral ventricle with unchanged leftward midline shift measures 3 mm. Imaged orbits are unremarkable. Imaged paranasal sinuses and mastoid air cells are clear. Head CTA: ICA: Moderate carotid siphon atheromatous plaque with mild narrowing, left greater than right. No occlusion. MCA: No stenosis, occlusion or aneurysm. Injury displacement of right MCA branches due to intraparenchymal hematoma. ALAYNA: No stenosis, occlusion or aneurysm. BUSINESS SUPPORT LIAISON: No stenosis, occlusion or aneurysm. Basilar artery: No stenosis, occlusion or aneurysm. Distal vertebral arteries: No stenosis, occlusion or aneurysm. No aneurysm or vascular malformation within the region of the right posterior cerebral hematoma. CT angiogram neck: Aortic arch: Degraded due to contrast bolus timing artifact Common carotid arteries: Degraded evaluation of the common carotid arteries due to patient motion. Internal carotid arteries: No stenosis, occlusion or dissection. 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 Patent right vertebral artery. Pulmonary emphysema with large right apical bullous disease. Soft tissues appear normal. Bones: Multilevel cervical spondylosis most prominent C4-C5 and C5-C6. Impression: Noncontrast head CT: 1. Unchanged right posterior cerebral intraparenchymal hematoma with adjacent edema and mass effect. 2. Small right posterior parafalcine and the posterior cerebral subdural hematoma, unchanged. CT angiogram head: 1. No evidence of arterial venous malformation or aneurysm within the region of the intraparenchymal hematoma. CT angiogram neck: 1. Degraded evaluation due to patient motion and technique. 2. Occlusion of the left vertebral artery 3. Pulmonary emphysema. YULIA CAMACHO MD Feb 10, 2021 12:31
[2021-02-10] MEDS ORDERED: LIDOCAINE WITH 8.4% SOD BICARB 3 ML DISP.SYRIN. ONE (13:18)
[2021-02-10] MEDS: IV NORMAL SALINE 1000ML BAG 1,000 ML IV SCH ×2 (13:30→18:47)
[2021-02-10] MEDS ORDERED: LIDOCAINE WITH 8.4% SOD BICARB 3 ML DISP.SYRIN. INJ ONE (13:45)
--- NOTE | 2021-02-10 13:52 | PDOC ---
PROGRESS NOTES Date of Service DATE: 02/10/21 TIME: 13:47 Subjective Subjective POD #1 s/p craniotomy and decompression of right occipital parietal hematoma sedated on vent Objective Objective Vital Signs Date Time Temp Pulse Resp B/P (MAP) Pulse Ox O2 Delivery O2 Flow Rate FiO2 02/10/21 12:00 Mechanical Ventilator 02/10/21 12:00 02/10/21 11:49 98 02/10/21 10:00 94 46 02/10/21 08:00 99.9 99.9 Intake and Output 02/10/21 06:59 Intake Total 1656.47 ml Output Total 1205 ml Balance 451.47 ml Intake IV Total 1656.47 ml Output Urine Total 1205 ml Physical Exam Neuro: Other (sedated on vent, opens eyes to voice, pupil small and reactive, PEREZ) Skin: Other (dressing dry and intact) Plan Plan of Care F/U CT head reviewed- improved, significantly less mass effect, residual hemorrhage present BP control with Cardene wean sedation as tolerated extubate per Pulmonary D/W Dr. Ortiz D/W mother and sister at bedside Comment Review of Relevant I have reviewed the following items neela (where applicable) has been applied. Labs Laboratory Tests Test 02/09/21 10:15 02/09/21 16:20 02/09/21 18:38 02/09/21 19:00 Hepatitis A IgM Antibody Nonreactive (Nonreactive) Hepatitis B Surface Antigen Nonreactive (Nonreactive) Hepatitis B Core IgM Antibody Nonreactive (Nonreactive) Hepatitis C IgG Antibody Reactive (Nonreactive) SARS-CoV-2 Antigen (Rapid) Negative (NEGATIVE) White Blood Count 15.0 x10^3/uL (4.0-11.0) Hemoglobin 14.1 g/dL (13.0-17.5) Hematocrit 41.9 % (39.0-53.0) Platelet Count 238 x10^3/uL (140-400) Prothrombin Time 14.2 SEC (11.7-14.0) Prothromb Time International Ratio 1.1 (0.8-1.1) Activated Partial Thromboplast Time 27 SEC (24-38) Sodium Level 133 mmol/L (136-145) Potassium Level 4.4 mmol/L (3.5-5.1) Chloride Level 98 mmol/L (98-107) Carbon Dioxide Level 22 mmol/L (21-32) Anion Gap 13 (6-14) Blood Urea Nitrogen 24 mg/dL (8-26) Creatinine 1.9 mg/dL (0.7-1.3) Estimated GFR (Cockcroft-Gault) 44.0 Glucose Level 239 mg/dL (70-99) Calcium Level 9.0 mg/dL (8.5-10.1) O2 Saturation 97 % (92-99) Arterial Blood pH 7.30 (7.35-7.45) Arterial Blood pCO2 at Patient Temp 46 mmHg (35-46) Arterial Blood pO2 at Patient Temp 107 mmHg (65-108) Arterial Blood HCO3 22 mmol/L (21-28) Arterial Blood Base Excess -4 mmol/L (-3-3) FiO2 100 Test 02/10/21 07:23 02/10/21 07:40 O2 Saturation 98 % (92-99) Arterial Blood pH 7.39 (7.35-7.45) Arterial Blood pCO2 at Patient Temp 35 mmHg (35-46) Arterial Blood pO2 at Patient Temp 120 mmHg (65-108) Arterial Blood HCO3 21 mmol/L (21-28) Arterial Blood Base Excess -3 mmol/L (-3-3) FiO2 100 White Blood Count 14.6 x10^3/uL (4.0-11.0) Red Blood Count 4.42 x10^6/uL (4.30-5.70) Hemoglobin 13.0 g/dL (13.0-17.5) Hematocrit 39.3 % (39.0-53.0) Mean Corpuscular Volume 89 fL (79-100) Mean Corpuscular Hemoglobin 30 pg (25-35) Mean Corpuscular Hemoglobin Concent 33 g/dL (31-37) Red Cell Distribution Width 13.5 % (11.5-14.5) Platelet Count 224 x10^3/uL (140-400) Neutrophils (%) (Auto) 77 % (31-73) Lymphocytes (%) (Auto) 10 % (24-48) Monocytes (%) (Auto) 13 % (0-9) Eosinophils (%) (Auto) 0 % (0-3) Basophils (%) (Auto) 1 % (0-3) Neutrophils # (Auto) 11.2 x10^3/uL (1.8-7.7) Lymphocytes # (Auto) 1.4 x10^3/uL (1.0-4.8) Monocytes # (Auto) 1.9 x10^3/uL (0.0-1.1) Eosinophils # (Auto) 0.0 x10^3/uL (0.0-0.7) Basophils # (Auto) 0.1 x10^3/uL (0.0-0.2) Segmented Neutrophils % 71 % (35-66) Lymphocytes % 13 % (24-48) Monocytes % 16 % (0-10) Platelet Estimate Adequate (ADEQUATE) Sodium Level 136 mmol/L (136-145) Potassium Level 4.2 mmol/L (3.5-5.1) Chloride Level 99 mmol/L (98-107) Carbon Dioxide Level 23 mmol/L (21-32) Anion Gap 14 (6-14) Blood Urea Nitrogen 37 mg/dL (8-26) Creatinine 3.4 mg/dL (0.7-1.3) Estimated GFR (Cockcroft-Gault) 22.5 BUN/Creatinine Ratio 11 (6-20) Glucose Level 175 mg/dL (70-99) Calcium Level 8.1 mg/dL (8.5-10.1) Magnesium Level 2.0 mg/dL (1.8-2.4) Total Bilirubin 0.4 mg/dL (0.2-1.0) Aspartate Amino Transf (AST/SGOT) 17 U/L (15-37) Alanine Aminotransferase (ALT/SGPT) 21 U/L (16-63) Alkaline Phosphatase 66 U/L (46-116) Total Protein 6.3 g/dL (6.4-8.2) Albumin 3.4 g/dL (3.4-5.0) Albumin/Globulin Ratio 1.2 (1.0-1.7) Laboratory Tests Test 02/09/21 16:20 02/09/21 18:38 02/09/21 19:00 02/10/21 07:23 SARS-CoV-2 Antigen (Rapid) Negative (NEGATIVE) White Blood Count 15.0 x10^3/uL (4.0-11.0) Hemoglobin 14.1 g/dL (13.0-17.5) Hematocrit 41.9 % (39.0-53.0) Platelet Count 238 x10^3/uL (140-400) Prothrombin Time 14.2 SEC (11.7-14.0) Prothromb Time International Ratio 1.1 (0.8-1.1) Activated Partial Thromboplast Time 27 SEC (24-38) Sodium Level 133 mmol/L (136-145) Potassium Level 4.4 mmol/L (3.5-5.1) Chloride Level 98 mmol/L (98-107) Carbon Dioxide Level 22 mmol/L (21-32) Anion Gap 13 (6-14) Blood Urea Nitrogen 24 mg/dL (8-26) Creatinine 1.9 mg/dL (0.7-1.3) Estimated GFR (Cockcroft-Gault) 44.0 Glucose Level 239 mg/dL (70-99) Calcium Level 9.0 mg/dL (8.5-10.1) O2 Saturation 97 % (92-99) 98 % (92-99) Arterial Blood pH 7.30 (7.35-7.45) 7.39 (7.35-7.45) Arterial Blood pCO2 at Patient Temp 46 mmHg (35-46) 35 mmHg (35-46) Arterial Blood pO2 at Patient Temp 107 mmHg (65-108) 120 mmHg (65-108) Arterial Blood HCO3 22 mmol/L (21-28) 21 mmol/L (21-28) Arterial Blood Base Excess -4 mmol/L (-3-3) -3 mmol/L (-3-3) FiO2 100 100 Test 02/10/21 07:40 White Blood Count 14.6 x10^3/uL (4.0-11.0) Red Blood Count 4.42 x10^6/uL (4.30-5.70) Hemoglobin 13.0 g/dL (13.0-17.5) Hematocrit 39.3 % (39.0-53.0) Mean Corpuscular Volume 89 fL (79-100) Mean Corpuscular Hemoglobin 30 pg (25-35) Mean Corpuscular Hemoglobin Concent 33 g/dL (31-37) Red Cell Distribution Width 13.5 % (11.5-14.5) Platelet Count 224 x10^3/uL (140-400) Neutrophils (%) (Auto) 77 % (31-73) Lymphocytes (%) (Auto) 10 % (24-48) Monocytes (%) (Auto) 13 % (0-9) Eosinophils (%) (Auto) 0 % (0-3) Basophils (%) (Auto) 1 % (0-3) Neutrophils # (Auto) 11.2 x10^3/uL (1.8-7.7) Lymphocytes # (Auto) 1.4 x10^3/uL (1.0-4.8) Monocytes # (Auto) 1.9 x10^3/uL (0.0-1.1) Eosinophils # (Auto) 0.0 x10^3/uL (0.0-0.7) Basophils # (Auto) 0.1 x10^3/uL (0.0-0.2) Segmented Neutrophils % 71 % (35-66) Lymphocytes % 13 % (24-48) Monocytes % 16 % (0-10) Platelet Estimate Adequate (ADEQUATE) Sodium Level 136 mmol/L (136-145) Potassium Level 4.2 mmol/L (3.5-5.1) Chloride Level 99 mmol/L (98-107) Carbon Dioxide Level 23 mmol/L (21-32) Anion Gap 14 (6-14) Blood Urea Nitrogen 37 mg/dL (8-26) Creatinine 3.4 mg/dL (0.7-1.3) Estimated GFR (Cockcroft-Gault) 22.5 BUN/Creatinine Ratio 11 (6-20) Glucose Level 175 mg/dL (70-99) Calcium Level 8.1 mg/dL (8.5-10.1) Magnesium Level 2.0 mg/dL (1.8-2.4) Total Bilirubin 0.4 mg/dL (0.2-1.0) Aspartate Amino Transf (AST/SGOT) 17 U/L (15-37) Alanine Aminotransferase (ALT/SGPT) 21 U/L (16-63) Alkaline Phosphatase 66 U/L (46-116) Total Protein 6.3 g/dL (6.4-8.2) Albumin 3.4 g/dL (3.4-5.0) Albumin/Globulin Ratio 1.2 (1.0-1.7) Medications Current Medications Nicardipine HCl 50 mg/Sodium Chloride 250 ml @ 12.5 mls/hr CONT PRN IV SEE I/O RECORD Last administered on 02/09/21at 22:24; Start 7/8/21 at 06:15 Labetalol HCl (Normodyne Iv Push) 10 mg PRN Q2HR PRN IVP HYPERTENSION Last administered on 02/09/21at 06:35; Start 02/09/21 at 06:15 Lorazepam (Ativan Inj) 2 mg 1X ONCE IVP Last administered on 02/09/21at 10:54; Start 02/09/21 at 10:45; Stop 02/09/21 at 10:46; Status DC Lorazepam (Ativan Inj) 2 mg 1X ONCE IVP Last administered on 02/09/21at 11:00; Start 02/09/21 at 11:00; Stop 02/09/21 at 11:01; Status DC Fentanyl Citrate (Fentanyl 2ml Vial) 25 mcg PRN Q2HR PRN IVP MODERATE TO SEVERE PAIN Last administered on 02/09/21at 13:37; Start 02/09/21 at 13:30 Info (Review Meds) 1 ea PRN 1X PRN MC SEE COMMENTS; Start 02/09/21 at 15:00 Acetaminophen (Tylenol Supp) 650 mg PRN Q6HRS PRN RI FEVER > 100.5'F or 38'C; Start 02/09/21 at 15:00 Albuterol Sulfate (Ventolin Neb Soln) 2.5 mg PRN Q4HRS PRN NEB SHORTNESS OF BREATH; Start 02/09/21 at 15:15 Iohexol (Omnipaque 350 Mg/ml) 75 ml 1X ONCE IV Last administered on 02/09/21at 15:52; Start 02/09/21 at 15:30; Stop 02/09/21 at 15:35; Status DC Iohexol (Omnipaque 350 Mg/ml) 100 ml STK-MED ONCE .ROUTE ; Start 02/09/21 at 15 :26; Stop 02/09/21 at 15:27; Status DC Info (CONTRAST GIVEN -- Rx MONITORING) 1 each PRN DAILY PRN MC SEE COMMENTS; Start 02/09/21 at 15:45; Stop 02/11/21 at 15:44 Propofol 100 ml @ As Directed STK-MED ONCE IV ; Start 02/09/21 at 15:51; Stop 02/09/21 at 15:51; Status DC Rocuronium [place] (Zemuron) 50 mg STK-MED ONCE .ROUTE ; Start 02/09/21 at 15:51; Stop 02/09/21 at 15:51; Status DC Lidocaine HCl (Lidocaine HCl 2% Abboject) 100 mg STK-MED ONCE .ROUTE ; Start 02/09/21 at 15:52; Stop 02/09/21 at 15:53; Status DC Propofol 100 ml @ 3.507 mls/ hr CONT PRN IV PER PROTOCOL Last administered on 02/10/21at 12:03; Start 02/09/21 at 16:15 Lidocaine HCl (Lidocaine HCl 2% Abboject) 100 mg 1X ONCE IV Last administered on 02/09/21 16:17; Start 02/09/21 at 16:15; Stop 02/09/21 at 16:17; Status DC Rocuronium [place] (Zemuron) 50 mg 1X ONCE IV Last administered on 02/09/21 16:17; Start 02/09/21 at 16:15; Stop 02/09/21 at 16:17; Status DC Rocuronium [place] (Zemuron) 100 mg STK-MED ONCE .ROUTE ; Start 02/09/21 at 16:31; Stop 02/09/21 at 16:32; Status DC Gelatin (Gelfoam Size 100) 1 each STK-MED ONCE .ROUTE Last administered on 02/09/21 17:49; Start 02/09/21 at 16:33; Stop 02/09/21 at 16:33; Status DC Bupivacaine HCl/ Epinephrine Bitart (Sensorcain-Epi 0.5%-1:[id number] Mpf) [address] K-MED ONCE .ROUTE Last administered on 02/09/21 17:49; Start 02/09/21 at 16:33; Stop 02/09/21 at 16:33; Status DC Cellulose (Surgicel Hemostat 4x8) 1 each STK-MED ONCE .ROUTE Last administered on 02/09/21 18:38; Start 02/09/21 at 16:33; Stop 02/09/21 at 16:33; Status DC Thrombin 20,000 unit STK-MED ONCE TP Last administered on 02/09/21 17:49; Start 02/09/21 at 16:33; Stop 02/09/21 at 16:33; Status DC Fentanyl Citrate (Fentanyl 2ml Vial) 75 mcg 1X ONCE IVP Last administered on 02/09/21at 16:45; Start 02/09/21 at 16:45; Stop 02/09/21 at 16:47; Status DC Propofol (Diprivan) 200 mg 1X ONCE IV ; Start 02/09/21 at 17:15; Stop 02/09/21 at 17:16; Status DC Lidocaine HCl (Lidocaine HCl 2% Abboject) 100 mg 1X ONCE IV ; Start 02/09/21 at 17:15; Stop 02/09/21 at 17:16; Status DC Rocuronium [place] (Zemuron) 50 mg 1X ONCE IV ; Start 02/09/21 at 17:15; Stop 02/09/21 at 17:16; Status DC Propofol 100 ml @ 0 mls/hr CONT PRN PRN IV SEDATION; Start 02/09/21 at 17:15; Stop 02/10/21 at 05:14; Status DC Cefazolin Sodium (Ancef) 1 gm STK-MED ONCE IVP ; Start 02/09/21 at 17:28; Stop 02/09/21 at 17:28; Status DC Fentanyl Citrate (Fentanyl 2ml Vial) 100 mcg STK-MED ONCE .ROUTE ; Start 02/09/21 at 17:43; Stop 02/09/21 at 17:43; Status DC Rocuronium [place] (Zemuron) 100 mg STK-MED ONCE .ROUTE ; Start 02/09/21 at 17:58; Stop 02/09/21 at 17:59; Status DC Vecuronium [place] (Norcuron Bolus) 10 mg STK-MED ONCE IV ; Start 02/09/21 at 18:49; Stop 02/09/21 at 18:50; Status DC Sodium Chloride (SODIUM CHLORIDE 20ml) 20 ml STK-MED ONCE IJ ; Start 02/09/21 at 18:50; Stop 02/09/21 at 18:50; Status DC Sevoflurane (Ultane) 90 ml STK-MED ONCE IH ; Start 02/09/21 at 19:20; Stop 02/09/21 at 19:21; Status DC Fentanyl Citrate 30 ml @ 2.5 mls/hr CONT PRN IV SEE PROTOCOL Last administered on 02/09/21at 23:40; Start 02/09/21 at 23:15; Stop 02/10/21 at 04:43; Status DC Fentanyl Citrate 55 ml @ 0 mls/hr CONT PRN IV SEE I/O Last administered on 02/10/21at 05:42; Start 02/10/21 at 05:00 Potassium Chloride/Dextrose/ Sod Cl 1,000 ml @ 80 mls/hr [id number] IV ; Start 02/10/21 at 09:00; Stop 02/10/21 at 13:21; Status DC Pantoprazole Sodium (PROTONIX VIAL for IV PUSH) 40 mg DAILYAC IVP Last administered on 02/10/21at 12:03; Start 02/10/21 at 09:00 Lidocaine HCl (Buffered Lidocaine 1%) 3 ml STK-MED ONCE .ROUTE ; Start 02/10/21 at 13:18; Stop 02/10/21 at 13:18; Status DC Sodium Chloride 1,000 ml @ 80 mls/hr [id number] IV Last administered on 02/10/21at 13:30; Start 02/10/21 at 13:30 Lidocaine HCl (Buffered Lidocaine 1%) 6 ml 1X ONCE INJ ; Start 02/10/21 at 13:45; Stop 02/10/21 at 13:46; Status DC Vitals/I & O Vital Sign - Last 24 Hours 02/09/21 02/09/21 02/09/21 02/09/21 14:00 16:07 16:17 16:40 Pulse 81 Resp 28 B/P (MAP) 145/78 (100) 179/99 Pulse Ox 100 O2 Delivery Room Air Ventilator Mechanical Ventilator 02/09/21 02/09/21 02/09/21 02/09/21 16:40 16:45 16:54 20:00 Temp 98.4 98.7 98.4 98.7 Pulse 94 92 Resp 33 16 B/P (MAP) 148/80 (102) 127/89 (102) 132/60 (84) Pulse Ox 98 100 O2 Delivery Ventilator Ventilator Ventilator 02/09/21 02/09/21 02/09/21 02/09/21 20:00 20:00 20:37 21:00 Pulse 92 90 Resp 18 B/P (MAP) 132/60 (84) 107/55 (72) Pulse Ox 100 100 O2 Delivery Mechanical Ventilator Ventilator Ventilator 02/09/21 02/09/21 02/09/21 02/09/21 22:00 22:50 23:00 23:59 Pulse 95 96 Resp 23 26 B/P (MAP) 119/64 (82) 127/63 (84) Pulse Ox 99 100 99 O2 Delivery Ventilator Ventilator Ventilator Mechanical Ventilator 02/10/21 02/10/21 02/10/21 02/10/21 00:00 00:01 01:00 01:04 Temp 99.4 99.4 Pulse 101 101 101 Resp 24 22 B/P (MAP) 138/68 (91) 138/68 (91) 142/73 (96) Pulse Ox 100 100 100 O2 Delivery Ventilator Ventilator Ventilator 02/10/21 02/10/21 02/10/21 02/10/21 02:00 02:54 03:00 04:00 Temp 99.6 99.6 Pulse 101 99 98 Resp 21 20 19 B/P (MAP) 137/68 (91) 118/61 (80) 112/60 (77) Pulse Ox 100 100 100 99 O2 Delivery Ventilator Ventilator Ventilator Ventilator 02/10/21 02/10/21 02/10/21 02/10/21 04:00 04:00 05:00 05:42 Pulse 98 95 Resp 18 B/P (MAP) 112/60 (77) 105/63 (77) Pulse Ox 98 98 O2 Delivery Mechanical Ventilator Ventilator 02/10/21 02/10/21 02/10/21 02/10/21 05:46 06:00 06:12 07:00 Pulse 92 92 Resp 20 21 B/P (MAP) 107/62 (77) 130/64 (86) Pulse Ox 99 98 98 100 O2 Delivery Ventilator Ventilator Ventilator 02/10/21 02/10/21 02/10/21 02/10/21 07:20 08:00 08:00 08:00 Temp 99.9 99.9 Pulse 94 Resp 19 B/P (MAP) 104/52 (69) Pulse Ox 100 98 O2 Delivery Ventilator Mechanical Ventilator Ventilator 02/10/21 02/10/21 02/10/21 02/10/21 09:00 09:47 10:00 11:49 Pulse 90 94 Resp 21 46 B/P (MAP) 136/60 (85) 116/56 (76) Pulse Ox 98 100 95 98 O2 Delivery Ventilator Ventilator Ventilator Ventilator 02/10/21 02/10/21 12:00 12:00 B/P (MAP) O2 Delivery Mechanical Ventilator Intake and Output 02/09/21 02/09/21 02/10/21 14:59 22:59 06:59 Intake Total 1656.47 ml Output Total 250 ml 720 ml 235 ml Balance -250 ml -720 ml 1421.47 ml Justifications for Admission Other Justification LUCINDA DENNY MD Feb 10, 2021 13:52
--- NOTE | 2021-02-10 14:55 | RAD ---
XR CHEST 1V History: Reason: Vent patient / Spl. Instructions: / History: Comparison: February 09, 2021 Findings: Hyperflexion with emphysematous changes. Bilateral mid and basilar patchy opacities decreased on the left compared to prior. Decreased small left pleural effusion. Stable endotracheal tube and enteric t ube. Unchanged heart size. No pneumothorax. Unchanged right-sided central line. Impression: 1. Patchy mid and bibasilar opacities, decreased on the left. 2. Decreased small left pleural effusion. Electronically signed by: Aaron Mayes DO (02/10/2021 2:53 PM) [id number]
--- NOTE | 2021-02-10 14:56 | RAD ---
XR CHEST 1V History: Reason: TEMPORARY DIALYSIS CATHETER PLACEMENT / Spl. Instructions: / History: Comparison: February 10, 2021 Findings: Interval placement right IJ central line with tip projecting over the right atrium. No pneumothorax. Emphysematous changes. Unchanged additional right-sided central line as well as endotracheal tube and enteric tube. Patchy mid and bibasilar opacities, increased with lower lung volumes. Small left pleu ral effusion, unchanged. Unchanged heart size. Impression: 1. Interval placement right IJ central line. No pneumothorax. 2. Increased patchy mid and bibasilar opacities with decreased lung volumes. Electronically signed by: Aaron Mayes DO (02/10/2021 2:54 PM) [id number]
--- NOTE | 2021-02-10 15:55 | RAD ---
Procedure: Ultrasound-guided placement of right internal jugular temporary dialysis catheter 02/10/2021 1:51 PM Clinical Indication: Renal failure RENAL FAILURE Discussion: The risks and benefits of the procedure were discussed the patient and/or their marketing sales representative. Informed consent was obtained. A timeout procedure was performed. All elements of maximal sterile barrier technique including the use of a cap, mask, sterile gown, sterile gloves, large sterile sheet, appropriate hand hygiene, and 2% chlorhexidine for cutaneous antisepsis (or acceptable alternative antiseptic per current guidelines) were followed for this procedure. The patient was prepped and draped in the usual sterile fashion. Ultrasound interrogation of the right neck revealed patency and compressibility of the right internal jugular vein. A 21-gauge micropuncture was then used to gain access to this vein under ultrasound guidance. A hard copy ultrasound image was recorded. A guidewire was advanced centrally. 5 Lao sheath was placed. Over a wire following dilatation, a temporary dialysis catheter was advanced centrally. Catheter was found to flush and aspirate normally. Follow-up chest radiograph demonstrates tip in acceptable position. The catheter was secured in place and a sterile dressing was applied. No immediate complications were identified. Impression: Successful ultrasound-guided placement of right internal jugular temporary dialysis catheter
--- NOTE | 2021-02-10 16:41 | OP ---
DATE OF SURGERY: 02/09/2021 PREOPERATIVE DIAGNOSIS: Right posterior temporoparietal occipital intracerebral hemorrhage with neurologic deterioration. POSTOPERATIVE DIAGNOSIS: Right posterior temporoparietal occipital intracerebral hemorrhage with neurologic deterioration. OPERATION PERFORMED: Right occipital craniotomy with evacuation of intracerebral hematoma. SURGEON: Abel Louie M.D. TOBY MAKER: MARCIE Bragg assisted with the surgery. She assisted with the exposure, the removal of the hematoma as well as the closure. SPECIMEN: Hematoma. OPERATIVE INDICATIONS: The patient is a pleasant 61-year-old man who was admitted in the early hours of 02/09/2021 with a large intracerebral hematoma. He was awake and would follow simple commands. He was conversant and we elected to follow him and observe him closely in intensive care unit. He made further precipitous deterioration in the late afternoon of 02/09. He was re-scanned with a CTA included to be sure there were no vascular malformations or further rebleeding which there was not and he was taken directly to the operating room for craniotomy. Surgery was discussed with the patient's mother and sisters. They strongly wished for us to go ahead with surgery. DESCRIPTION OF PROCEDURE: Following general endotracheal anesthesia, the patient was positioned in [place] pins in the left lateral decubitus position. His head was turned down bringing the parietooccipital region uppermost. He was clipped, prepped and draped in the standard fashion. An incision was made parallel to the sagittal sinus extending from just below the transverse sinus superiorly over the paramedian occipital region. I dissected down through skin and subcutaneous tissues using Aesculap clips and created an exposure of the bone, through which I then placed 4 bur holes using craniotome to develop a bone flap, which was removed. I then opened the dura in a cruciate fashion. The brain was somewhat tight and there was a spontaneous egress of clotted blood. As I worked, I used the sucker and removed clotted blood and the brain rapidly decompressed. I followed the clot deep in the occipital region and worked toward the temporal lobe, but as I worked deeper much of the clot appeared older and more tenacious and was associated with increased vascularity. I was able to work with the bipolar to control any hemorrhaging. I irrigated copiously. The brain became quite soft and I felt that I had an excellent decompression. I did coagulate the pial margins of the brain parenchyma through which the hematoma egressed and after obtaining excellent hemostasis, I then onlaid the dura and placed a Duragen covering. I replaced the bone and secured this with microplates. I closed with absorbable sutures as well as skin warren. The operation went very well and the patient was taken in stable condition to the Intensive Care Unit. I was quite pleased with the surgery. MARLENE DR: Jose Guadalupe TID: [id number]
[2021-02-10 22:12] LABS: HCV ULTRA QUANT PCR HCV Not Detected IU/mL (.)
[2021-02-11] VITALS (33 sets, daily range): BP systolic 90–178; BP diastolic 46–86
[2021-02-11] MEDS: PROPOFOL 100 ML IV PRN ×8 (01:51→22:31)
[2021-02-11 05:46] LABS: HEMATOCRIT 29.4 % (39.0-53.0); RED BLOOD COUNT 3.26 x10^6/uL (4.30-5.70); RED CELL DISTRIBUTION WIDTH 13.7 % (11.5-14.5); WHITE BLOOD COUNT 9.2 x10^3/uL (4.0-11.0)
[2021-02-11 06:07] LABS: CALCIUM 6.9 mg/dL (8.5-10.1); CREATININE 1.6 mg/dL (0.7-1.3); GFR 53.6; MAGNESIUM 1.8 mg/dL (1.8-2.4); PHOSPHORUS 3.1 mg/dL (2.6-4.7); POTASSIUM 3.3 mmol/L (3.5-5.1)
[2021-02-11 06:09] LABS: HEMOGLOBIN 9.8 g/dL (13.0-17.5)
[2021-02-11] MEDS: IV NORMAL SALINE 1000ML BAG 1,000 ML IV SCH (06:17)
--- NOTE | 2021-02-11 06:42 | PDOC ---
PULMONARY PROGRESS NOTES DATE: 02/11/21 TIME: 06:40 Subjective on vent peep 5 fio2 50%, sedated on prop fentanyl large secretion good cough gag Vitals Vital Signs Date Time Temp Pulse Resp B/P (MAP) Pulse Ox O2 Delivery O2 Flow Rate FiO2 02/11/21 06:00 79 24 145/61 (89) 94 Ventilator 02/11/21 04:00 100.2 100.2 Comments ros unable to obtain sedated on vent HEENT: Other (s/p craniotomy perrl nose clear orally intubated neck no lad no thyromegaly) Lungs: Crackles Cardiovascular: S1, S2 Abdomen: Soft, Non-tender Extremities: No Edema Skin: Warm Labs Laboratory Tests Test 02/09/21 10:15 02/09/21 16:20 02/09/21 18:38 02/09/21 19:00 Hepatitis A IgM Antibody Nonreactive (Nonreactive) Hepatitis B Surface Antigen Nonreactive (Nonreactive) Hepatitis B Core IgM Antibody Nonreactive (Nonreactive) Hepatitis C IgG Antibody Reactive (Nonreactive) Hepatitis C RNA Quantitative (PCR) Hcv not detected IU/mL Hepatitis C RNA (PCR) log10 (.) Hepatitis C RNA Qnt (PCR) Test Info Comment (.) SARS-CoV-2 Antigen (Rapid) Negative (NEGATIVE) White Blood Count 15.0 x10^3/uL (4.0-11.0) Hemoglobin 14.1 g/dL (13.0-17.5) Hematocrit 41.9 % (39.0-53.0) Platelet Count 238 x10^3/uL (140-400) Prothrombin Time 14.2 SEC (11.7-14.0) Prothromb Time International Ratio 1.1 (0.8-1.1) Activated Partial Thromboplast Time 27 SEC (24-38) Sodium Level 133 mmol/L (136-145) Potassium Level 4.4 mmol/L (3.5-5.1) Chloride Level 98 mmol/L (98-107) Carbon Dioxide Level 22 mmol/L (21-32) Anion Gap 13 (6-14) Blood Urea Nitrogen 24 mg/dL (8-26) Creatinine 1.9 mg/dL (0.7-1.3) Estimated GFR (Cockcroft-Gault) 44.0 Glucose Level 239 mg/dL (70-99) Calcium Level 9.0 mg/dL (8.5-10.1) O2 Saturation 97 % (92-99) Arterial Blood pH 7.30 (7.35-7.45) Arterial Blood pCO2 at Patient Temp 46 mmHg (35-46) Arterial Blood pO2 at Patient Temp 107 mmHg (65-108) Arterial Blood HCO3 22 mmol/L (21-28) Arterial Blood Base Excess -4 mmol/L (-3-3) FiO2 100 Test 02/10/21 07:23 02/10/21 07:40 02/11/21 05:30 O2 Saturation 98 % (92-99) Arterial Blood pH 7.39 (7.35-7.45) Arterial Blood pCO2 at Patient Temp 35 mmHg (35-46) Arterial Blood pO2 at Patient Temp 120 mmHg (65-108) Arterial Blood HCO3 21 mmol/L (21-28) Arterial Blood Base Excess -3 mmol/L (-3-3) FiO2 100 White Blood Count 14.6 x10^3/uL (4.0-11.0) 9.2 x10^3/uL (4.0-11.0) Red Blood Count 4.42 x10^6/uL (4.30-5.70) 3.26 x10^6/uL (4.30-5.70) Hemoglobin 13.0 g/dL (13.0-17.5) 9.8 g/dL (13.0-17.5) Hematocrit 39.3 % (39.0-53.0) 29.4 % (39.0-53.0) Mean Corpuscular Volume 89 fL (79-100) 90 fL (79-100) Mean Corpuscular Hemoglobin 30 pg (25-35) 30 pg (25-35) Mean Corpuscular Hemoglobin Concent 33 g/dL (31-37) 33 g/dL (31-37) Red Cell Distribution Width 13.5 % (11.5-14.5) 13.7 % (11.5-14.5) Platelet Count 224 x10^3/uL (140-400) 153 x10^3/uL (140-400) Neutrophils (%) (Auto) 77 % (31-73) Lymphocytes (%) (Auto) 10 % (24-48) Monocytes (%) (Auto) 13 % (0-9) Eosinophils (%) (Auto) 0 % (0-3) Basophils (%) (Auto) 1 % (0-3) Neutrophils # (Auto) 11.2 x10^3/uL (1.8-7.7) Lymphocytes # (Auto) 1.4 x10^3/uL (1.0-4.8) Monocytes # (Auto) 1.9 x10^3/uL (0.0-1.1) Eosinophils # (Auto) 0.0 x10^3/uL (0.0-0.7) Basophils # (Auto) 0.1 x10^3/uL (0.0-0.2) Segmented Neutrophils % 71 % (35-66) Lymphocytes % 13 % (24-48) Monocytes % 16 % (0-10) Platelet Estimate Adequate (ADEQUATE) Sodium Level 136 mmol/L (136-145) 141 mmol/L (136-145) Potassium Level 4.2 mmol/L (3.5-5.1) 3.3 mmol/L (3.5-5.1) Chloride Level 99 mmol/L (98-107) 106 mmol/L (98-107) Carbon Dioxide Level 23 mmol/L (21-32) 22 mmol/L (21-32) Anion Gap 14 (6-14) 13 (6-14) Blood Urea Nitrogen 37 mg/dL (8-26) 34 mg/dL (8-26) Creatinine 3.4 mg/dL (0.7-1.3) 1.6 mg/dL (0.7-1.3) Estimated GFR (Cockcroft-Gault) 22.5 53.6 BUN/Creatinine Ratio 11 (6-20) Glucose Level 175 mg/dL (70-99) 165 mg/dL (70-99) Calcium Level 8.1 mg/dL (8.5-10.1) 6.9 mg/dL (8.5-10.1) Magnesium Level 2.0 mg/dL (1.8-2.4) 1.8 mg/dL (1.8-2.4) Total Bilirubin 0.4 mg/dL (0.2-1.0) Aspartate Amino Transf (AST/SGOT) 17 U/L (15-37) Alanine Aminotransferase (ALT/SGPT) 21 U/L (16-63) Alkaline Phosphatase 66 U/L (46-116) Total Protein 6.3 g/dL (6.4-8.2) Albumin 3.4 g/dL (3.4-5.0) Albumin/Globulin Ratio 1.2 (1.0-1.7) Phosphorus Level 3.1 mg/dL (2.6-4.7) Laboratory Tests Test 02/10/21 07:23 02/10/21 07:40 02/11/21 05:30 O2 Saturation 98 % (92-99) Arterial Blood pH 7.39 (7.35-7.45) Arterial Blood pCO2 at Patient Temp 35 mmHg (35-46) Arterial Blood pO2 at Patient Temp 120 mmHg (65-108) Arterial Blood HCO3 21 mmol/L (21-28) Arterial Blood Base Excess -3 mmol/L (-3-3) FiO2 100 White Blood Count 14.6 x10^3/uL (4.0-11.0) 9.2 x10^3/uL (4.0-11.0) Red Blood Count 4.42 x10^6/uL (4.30-5.70) 3.26 x10^6/uL (4.30-5.70) Hemoglobin 13.0 g/dL (13.0-17.5) 9.8 g/dL (13.0-17.5) Hematocrit 39.3 % (39.0-53.0) 29.4 % (39.0-53.0) Mean Corpuscular Volume 89 fL (79-100) 90 fL (79-100) Mean Corpuscular Hemoglobin 30 pg (25-35) 30 pg (25-35) Mean Corpuscular Hemoglobin Concent 33 g/dL (31-37) 33 g/dL (31-37) Red Cell Distribution Width 13.5 % (11.5-14.5) 13.7 % (11.5-14.5) Platelet Count 224 x10^3/uL (140-400) 153 x10^3/uL (140-400) Neutrophils (%) (Auto) 77 % (31-73) Lymphocytes (%) (Auto) 10 % (24-48) Monocytes (%) (Auto) 13 % (0-9) Eosinophils (%) (Auto) 0 % (0-3) Basophils (%) (Auto) 1 % (0-3) Neutrophils # (Auto) 11.2 x10^3/uL (1.8-7.7) Lymphocytes # (Auto) 1.4 x10^3/uL (1.0-4.8) Monocytes # (Auto) 1.9 x10^3/uL (0.0-1.1) Eosinophils # (Auto) 0.0 x10^3/uL (0.0-0.7) Basophils # (Auto) 0.1 x10^3/uL (0.0-0.2) Segmented Neutrophils % 71 % (35-66) Lymphocytes % 13 % (24-48) Monocytes % 16 % (0-10) Platelet Estimate Adequate (ADEQUATE) Sodium Level 136 mmol/L (136-145) 141 mmol/L (136-145) Potassium Level 4.2 mmol/L (3.5-5.1) 3.3 mmol/L (3.5-5.1) Chloride Level 99 mmol/L (98-107) 106 mmol/L (98-107) Carbon Dioxide Level 23 mmol/L (21-32) 22 mmol/L (21-32) Anion Gap 14 (6-14) 13 (6-14) Blood Urea Nitrogen 37 mg/dL (8-26) 34 mg/dL (8-26) Creatinine 3.4 mg/dL (0.7-1.3) 1.6 mg/dL (0.7-1.3) Estimated GFR (Cockcroft-Gault) 22.5 53.6 BUN/Creatinine Ratio 11 (6-20) Glucose Level 175 mg/dL (70-99) 165 mg/dL (70-99) Calcium Level 8.1 mg/dL (8.5-10.1) 6.9 mg/dL (8.5-10.1) Magnesium Level 2.0 mg/dL (1.8-2.4) 1.8 mg/dL (1.8-2.4) Total Bilirubin 0.4 mg/dL (0.2-1.0) Aspartate Amino Transf (AST/SGOT) 17 U/L (15-37) Alanine Aminotransferase (ALT/SGPT) 21 U/L (16-63) Alkaline Phosphatase 66 U/L (46-116) Total Protein 6.3 g/dL (6.4-8.2) Albumin 3.4 g/dL (3.4-5.0) Albumin/Globulin Ratio 1.2 (1.0-1.7) Phosphorus Level 3.1 mg/dL (2.6-4.7) Comments cxr reviewed Stable cardiomediastinal silhouette. Similar pulmonary emphysema. Unchanged pa tchy mid and bibasilar opacities. Similar small left pleural effusion. No pneumothorax. No acute osseous process. Endotracheal tube tip locates approximately 7.2 cm proximal to the emily. Enteric tube tip is off image, presumably in the stomach. Right IJ central venous line is unchanged in position. Impression . IMPRESSION: 1. Acute hypoxic respiratory failure secondary to intracranial hemorrhage and hypertensive emergency. 2. Hypoxia secondary to basilar atelectasis contributed by encephalopathy. Need to continue to follow chest x-rays. 3. Long history of tobaccoism. CT angiogram showed bullous emphysema in the upper lobes. 3. Acute kidney injury. Nephrology consulted cr improving 4. Leukocytosis, likely reactive. resolved Plan . RECOMMENDATIONS: 1. cont vent support setting reviewed will decrease sedation sbt when more awake 2. elevate hob 3. Follow Neurosurgery's recommendations. 4. chest x-rays reviewed 5. Monitor renal function. cr improving 6. Nephrology's recommendations. 7. Bronchodilators. 8. has large ett secretion on abx will do sputum cx Discussed with RN and RT ELIO KAUR MD Feb 11, 2021 06:42
[2021-02-11] MEDS: PANTOPRAZOLE IV PUSH 40 MG VIAL. IVP SCH (07:41)
[2021-02-11] MEDS: POTASSIUM CHLORIDE 20MEQ 100 ML IV SCH ×2 (07:42→10:07)
--- NOTE | 2021-02-11 07:45 | NUR ---
Titrated sedation down for sedation vacation this morning. Patients SBP greater than 160. Cardene started, titrated up to 12.5mg/hr. Patient SBP still greater that 160, overbreathing the vent at 33 breaths per minute, peak pressure in the 40's. Propofol turned back up to 50mcg, Fentanyl up to 75mcg. SBP now in 140's. Will monitor.
[2021-02-11 08:35] LABS: BASE EXCESS ABG -3 mmol/L (-3-3); HCO3 ABG 22 mmol/L (21-28); PCO2 ABG 39 mmHg (35-46); PO2 ABG 61 mmHg (65-108); SAT O2 ABG 89 % (92-99)
[2021-02-11 08:37] LABS: FIO2 ABG 50
[2021-02-11] MEDS: PIPERACILLIN/TAZOBACTAM 3.375 GM in IV NORMAL SALINE 50ML 50 ML IV SCH ×3 (08:56→17:26)
--- NOTE | 2021-02-11 09:05 | RAD ---
EXAMINATION: Chest radiograph. VIEWS: Single view COMPARISON: 02/10/2021 INDICATION:61 years, Male, ventilation. FINDINGS: Stable cardiomediastinal silhouette. Similar pulmonary emphysema. Unchanged patchy mid and bibasilar opacities. Similar small left pleural effusion. No pneumothorax. No acute osseous process. Endotrache al tube tip locates approximately 7.2 cm proximal to the emily. Enteric tube tip is off image, presu mably in the stomach. Right IJ central venous line is unchanged in position. IMPRESSION: No significant changes since earlier exam. Electronically signed by: Teressa Iqbal MD (02/11/2021 9:03 AM) [id number]
--- NOTE | 2021-02-11 09:09 | CONS ---
DATE OF CONSULTATION: 02/11/2021 REQUESTING PHYSICIAN: Dr. Salas. REASON FOR CONSULTATION: Fever and foul smelling secretions from the ET tube. HISTORY OF PRESENT ILLNESS: This is a 61-year-old -[place] gentleman who was brought in with having intracranial bleed. The patient had stopped taking his blood pressure medicine. Apparently, the patient had a fall, hit the head, went to sleep, next day gotten up and apparently he was altered. The patient was taken to the ER at [facility] [facility] and then was transferred here for having a large bleed. The patient was taken to the OR here and the patient had a right posterior temporoparietal occipital intracerebral hemorrhage with neurologic deterioration. Evacuation was done on 02/09/2021. The patient since then has been intubated, had yellow foul smelling secretions from endotracheal tube and this morning, the patient has been running fever with a temperature elevation up to 100.2. The patient is not on any antibiotics. The patient is orally intubated, unable to provide any information. All the information was obtained from chart review and discussion with the patient's RN. No nausea, vomiting, diarrhea noted. PAST MEDICAL HISTORY: Positive for hypertension, COPD, asthma, history of hepatitis and now intracranial hemorrhage. SOCIAL HISTORY: Unable to obtain. CURRENT MEDICATIONS: Reviewed. REVIEW OF SYSTEMS: As per HPI through the patient's RN. PHYSICAL EXAMINATION: GENERAL: Sedated, orally intubated gentleman, not in distress. VITAL SIGNS: Temperature 100.2, pulse 79, respirations 24, blood pressure 145/61. HEENT: Both pupils are round and reacting. No conjunctival lesion noticed. Both pupils are actually pinpoint bilaterally. Unable to visualize since orally intubated. NECK: Supple, no JVP, no lymphadenopathy. LUNGS: Clear. HEART: S1, S2 regular. No gallop or murmur. ABDOMEN: Soft, nontender, no organomegaly. EXTREMITIES: No edema, cyanosis. SKIN: Unremarkable. 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 LABORATORY DATA: White count is up to 15.0, now down to 9.2, platelets are 153,000. BUN and creatinine is 34 and 1.6. Hepatitis C antibody positive. Chest x-ray showed pulmonary infiltrate. CT head showed 7.4 cm acute hematoma involving the right posterior temporal, occipital lobe with mass effect. IMPRESSION: 1. Fever. 2. Suspected aspiration. 3. Encephalopathy. 4. Intracranial bleed with mass effect, status post craniotomy and hematoma evacuation. 5. Respiratory failure. 6. Hypertension. 7. Chronic obstructive pulmonary disease. RECOMMENDATIONS: Recommend tracheal aspirate culture, has been taken. We will start Zosyn, supportive care and we will continue to follow. Thank you very much, Dr. Salas, for giving me opportunity to participate in this patient's care. RAIANA DR: Jarret TID: [id number]
--- NOTE | 2021-02-11 11:07 | PDOC ---
Renal-Progress Notes Subjective Notes Notes ON THE VENT History of Present Illness Hx of present illness NO ACUTE CHANGES Vitals Vitals Vital Signs Date Time Temp Pulse Resp B/P (MAP) Pulse Ox O2 Delivery O2 Flow Rate FiO2 02/11/21 10:45 78 125/55 (78) 02/11/21 10:00 24 94 Ventilator 02/11/21 08:00 99.9 99.9 Weight Weight [ ] I.O. Intake and Output Intake and Output 02/11/21 06:59 Intake Total 2249.67 ml Output Total 2470 ml Balance -220.33 ml Intake IV Total 2249.67 ml Output Urine Total 1920 ml Gastric Drainage Total 550 ml Labs Labs Laboratory Tests Test 02/11/21 05:30 02/11/21 08:32 White Blood Count 9.2 x10^3/uL (4.0-11.0) Red Blood Count 3.26 x10^6/uL (4.30-5.70) Hemoglobin 9.8 g/dL (13.0-17.5) Hematocrit 29.4 % (39.0-53.0) Mean Corpuscular Volume 90 fL (79-100) Mean Corpuscular Hemoglobin 30 pg (25-35) Mean Corpuscular Hemoglobin Concent 33 g/dL (31-37) Red Cell Distribution Width 13.7 % (11.5-14.5) Platelet Count 153 x10^3/uL (140-400) Sodium Level 141 mmol/L (136-145) Potassium Level 3.3 mmol/L (3.5-5.1) Chloride Level 106 mmol/L (98-107) Carbon Dioxide Level 22 mmol/L (21-32) Anion Gap 13 (6-14) Blood Urea Nitrogen 34 mg/dL (8-26) Creatinine 1.6 mg/dL (0.7-1.3) Estimated GFR (Cockcroft-Gault) 53.6 Glucose Level 165 mg/dL (70-99) Calcium Level 6.9 mg/dL (8.5-10.1) Phosphorus Level 3.1 mg/dL (2.6-4.7) Magnesium Level 1.8 mg/dL (1.8-2.4) O2 Saturation 89 % (92-99) Arterial Blood pH 7.38 (7.35-7.45) Arterial Blood pCO2 at Patient Temp 39 mmHg (35-46) Arterial Blood pO2 at Patient Temp 61 mmHg (65-108) Arterial Blood HCO3 22 mmol/L (21-28) Arterial Blood Base Excess -3 mmol/L (-3-3) FiO2 50 Review of Systems Constitutional: yes: unresponsive Physical Exam General Appearance: no apparent distress Skin: warm Heart: S1S2 Abdomen: soft, distension, other (NO BS) Extremities: pulses present Neurology: other (SEDATED) Assessment Assessment IMP MARVIN - IMPROVING WITH CR OF 1.6 FROM 3.4 HYPOKALEMIA ACUTE RESP FAILURE PROB ASP PNA ICB-S/P CRANIOTOMY AND HEMATOMA EVACATION ACUTE RESP FAILURE HX OF COPD ILEUS PLAN CONTROL BP GOAL SBP LESS THAN 140 CARDENE GTT NEEDED UNABLE TO START TF START TPN REPLACE K ANTIBIOTICS VENT SUPPORT PROB D/C HD LINE IN A DAY OR TWO WILL FOLLOW ESTEBAN PERKINS MD Feb 11, 2021 11:07
[2021-02-11] MEDS: fentaNYL HIGH DOSE PCA 55 ML IV PRN (13:20)
[2021-02-11] MEDS: TPN PER PHARMACY MC PRN (13:45)
--- NOTE | 2021-02-11 13:50 | NUR ---
Pharmacy TPN Dosing Note S: COOPER CHAVEZ is a 61 year old M Currently receiving Central Continuous TPN started 02/11/21 B:Pertinent PMH: UNABLE TO START TUBE FEEDS Current diet: NPO LABS: Sodium: 141 Potassium: 3.3 Chloride: 106 Calcium: 6.9 Corrected Calcium: 7.38 Magnesium: 1.8 CO2: 22 SCr: 1.6 Glucose: 165 Albumin: 3.4 AST: 17 ALT: 21 TPN FORMULA: TPN TYPE: Central Continuous AMINO ACIDS: 60 gm DEXTROSE: 195 gm LIPIDS: 0 gm SODIUM CHLORIDE: 90 mEq SODIUM ACETATE: - mEq SODIUM PHOSPHATE: - mmol POTASSIUM CHLORIDE: 50 mEq POTASSIUM ACETATE: - mEq POTASSIUM PHOSPHATE: 13.6 mmol MAGNESIUM: 10 mEq CALCIUM: 10 mEq INSULIN: - units MULTIPLE VITAMIN: 5 ml TRACE ELEMENTS: 1 ml ml(s) TPN PLAN: 02/11 no Lipids as patient is on Propofol infusion. R: TPN (dextrose) OK'd by Neurology, Begin Standard TPN Will monitor electrolytes, glucose, and tolerance to TPN. SOPHIA JOSEPH [facility], 02/11/21 [id number]
--- NOTE | 2021-02-11 14:09 | PDOC ---
PROGRESS NOTES Date of Service DATE: 02/11/21 TIME: 14:05 Subjective Subjective Patient seen and examined at 1215 POD #2 s/p Right occipital craniotomy with evacuation of intracerebral hematoma. Sedated on vent remains on cardene Objective Objective Vital Signs Date Time Temp Pulse Resp B/P (MAP) Pulse Ox O2 Delivery O2 Flow Rate FiO2 02/11/21 13:50 31 89 Ventilator 02/11/21 13:00 80 141/59 (86) 02/11/21 12:00 98.7 98.7 Intake and Output 02/11/21 06:59 Intake Total 2249.67 ml Output Total 2470 ml Balance -220.33 ml Intake IV Total 2249.67 ml Output Urine Total 1920 ml Gastric Drainage Total 550 ml Physical Exam General: Other (sedated on vent) Skin: Other (dressing C,D,I) Plan Plan of Care lighten sedation as tolerated to evaluate neuro status vent weaning per pulmonary D/W RN Comment Review of Relevant I have reviewed the following items neela (where applicable) has been applied. Labs Laboratory Tests Test 02/09/21 16:20 02/09/21 18:38 02/09/21 19:00 02/10/21 07:23 SARS-CoV-2 Antigen (Rapid) Negative (NEGATIVE) White Blood Count 15.0 x10^3/uL (4.0-11.0) Hemoglobin 14.1 g/dL (13.0-17.5) Hematocrit 41.9 % (39.0-53.0) Platelet Count 238 x10^3/uL (140-400) Prothrombin Time 14.2 SEC (11.7-14.0) Prothromb Time International Ratio 1.1 (0.8-1.1) Activated Partial Thromboplast Time 27 SEC (24-38) Sodium Level 133 mmol/L (136-145) Potassium Level 4.4 mmol/L (3.5-5.1) Chloride Level 98 mmol/L (98-107) Carbon Dioxide Level 22 mmol/L (21-32) Anion Gap 13 (6-14) Blood Urea Nitrogen 24 mg/dL (8-26) Creatinine 1.9 mg/dL (0.7-1.3) Estimated GFR (Cockcroft-Gault) 44.0 Glucose Level 239 mg/dL (70-99) Calcium Level 9.0 mg/dL (8.5-10.1) O2 Saturation 97 % (92-99) 98 % (92-99) Arterial Blood pH 7.30 (7.35-7.45) 7.39 (7.35-7.45) Arterial Blood pCO2 at Patient Temp 46 mmHg (35-46) 35 mmHg (35-46) Arterial Blood pO2 at Patient Temp 107 mmHg (65-108) 120 mmHg (65-108) Arterial Blood HCO3 22 mmol/L (21-28) 21 mmol/L (21-28) Arterial Blood Base Excess -4 mmol/L (-3-3) -3 mmol/L (-3-3) FiO2 100 100 Test 02/10/21 07:40 02/11/21 05:30 02/11/21 08:32 White Blood Count 14.6 x10^3/uL (4.0-11.0) 9.2 x10^3/uL (4.0-11.0) Red Blood Count 4.42 x10^6/uL (4.30-5.70) 3.26 x10^6/uL (4.30-5.70) Hemoglobin 13.0 g/dL (13.0-17.5) 9.8 g/dL (13.0-17.5) Hematocrit 39.3 % (39.0-53.0) 29.4 % (39.0-53.0) Mean Corpuscular Volume 89 fL (79-100) 90 fL (79-100) Mean Corpuscular Hemoglobin 30 pg (25-35) 30 pg (25-35) Mean Corpuscular Hemoglobin Concent 33 g/dL (31-37) 33 g/dL (31-37) Red Cell Distribution Width 13.5 % (11.5-14.5) 13.7 % (11.5-14.5) Platelet Count 224 x10^3/uL (140-400) 153 x10^3/uL (140-400) Neutrophils (%) (Auto) 77 % (31-73) Lymphocytes (%) (Auto) 10 % (24-48) Monocytes (%) (Auto) 13 % (0-9) Eosinophils (%) (Auto) 0 % (0-3) Basophils (%) (Auto) 1 % (0-3) Neutrophils # (Auto) 11.2 x10^3/uL (1.8-7.7) Lymphocytes # (Auto) 1.4 x10^3/uL (1.0-4.8) Monocytes # (Auto) 1.9 x10^3/uL (0.0-1.1) Eosinophils # (Auto) 0.0 x10^3/uL (0.0-0.7) Basophils # (Auto) 0.1 x10^3/uL (0.0-0.2) Segmented Neutrophils % 71 % (35-66) Lymphocytes % 13 % (24-48) Monocytes % 16 % (0-10) Platelet Estimate Adequate (ADEQUATE) Sodium Level 136 mmol/L (136-145) 141 mmol/L (136-145) Potassium Level 4.2 mmol/L (3.5-5.1) 3.3 mmol/L (3.5-5.1) Chloride Level 99 mmol/L (98-107) 106 mmol/L (98-107) Carbon Dioxide Level 23 mmol/L (21-32) 22 mmol/L (21-32) Anion Gap 14 (6-14) 13 (6-14) Blood Urea Nitrogen 37 mg/dL (8-26) 34 mg/dL (8-26) Creatinine 3.4 mg/dL (0.7-1.3) 1.6 mg/dL (0.7-1.3) Estimated GFR (Cockcroft-Gault) 22.5 53.6 BUN/Creatinine Ratio 11 (6-20) Glucose Level 175 mg/dL (70-99) 165 mg/dL (70-99) Calcium Level 8.1 mg/dL (8.5-10.1) 6.9 mg/dL (8.5-10.1) Magnesium Level 2.0 mg/dL (1.8-2.4) 1.8 mg/dL (1.8-2.4) Total Bilirubin 0.4 mg/dL (0.2-1.0) Aspartate Amino Transf (AST/SGOT) 17 U/L (15-37) Alanine Aminotransferase (ALT/SGPT) 21 U/L (16-63) Alkaline Phosphatase 66 U/L (46-116) Total Protein 6.3 g/dL (6.4-8.2) Albumin 3.4 g/dL (3.4-5.0) Albumin/Globulin Ratio 1.2 (1.0-1.7) Phosphorus Level 3.1 mg/dL (2.6-4.7) O2 Saturation 89 % (92-99) Arterial Blood pH 7.38 (7.35-7.45) Arterial Blood pCO2 at Patient Temp 39 mmHg (35-46) Arterial Blood pO2 at Patient Temp 61 mmHg (65-108) Arterial Blood HCO3 22 mmol/L (21-28) Arterial Blood Base Excess -3 mmol/L (-3-3) FiO2 50 Laboratory Tests Test 02/11/21 05:30 02/11/21 08:32 White Blood Count 9.2 x10^3/uL (4.0-11.0) Red Blood Count 3.26 x10^6/uL (4.30-5.70) Hemoglobin 9.8 g/dL (13.0-17.5) Hematocrit 29.4 % (39.0-53.0) Mean Corpuscular Volume 90 fL (79-100) Mean Corpuscular Hemoglobin 30 pg (25-35) Mean Corpuscular Hemoglobin Concent 33 g/dL (31-37) Red Cell Distribution Width 13.7 % (11.5-14.5) Platelet Count 153 x10^3/uL (140-400) Sodium Level 141 mmol/L (136-145) Potassium Level 3.3 mmol/L (3.5-5.1) Chloride Level 106 mmol/L (98-107) Carbon Dioxide Level 22 mmol/L (21-32) Anion Gap 13 (6-14) Blood Urea Nitrogen 34 mg/dL (8-26) Creatinine 1.6 mg/dL (0.7-1.3) Estimated GFR (Cockcroft-Gault) 53.6 Glucose Level 165 mg/dL (70-99) Calcium Level 6.9 mg/dL (8.5-10.1) Phosphorus Level 3.1 mg/dL (2.6-4.7) Magnesium Level 1.8 mg/dL (1.8-2.4) O2 Saturation 89 % (92-99) Arterial Blood pH 7.38 (7.35-7.45) Arterial Blood pCO2 at Patient Temp 39 mmHg (35-46) Arterial Blood pO2 at Patient Temp 61 mmHg (65-108) Arterial Blood HCO3 22 mmol/L (21-28) Arterial Blood Base Excess -3 mmol/L (-3-3) FiO2 50 Medications Current Medications Nicardipine HCl 50 mg/Sodium Chloride 250 ml @ 12.5 mls/hr CONT PRN IV SEE I/O RECORD Last administered on 02/11/21at 11:57; Start 02/09/21 at 06:15 Labetalol HCl (Normodyne Iv Push) 10 mg PRN Q2HR PRN IVP HYPERTENSION Last administered on 02/09/21at 06:35; Start 02/09/21 at 06:15 Lorazepam (Ativan Inj) 2 mg 1X ONCE IVP Last administered on 02/09/21at 10:54; Start 02/09/21 at 10:45; Stop 02/09/21 at 10:46; Status DC Lorazepam (Ativan Inj) 2 mg 1X ONCE IVP Last administered on 02/09/21at 11:00; Start 02/09/21 at 11:00; Stop 02/09/21 at 11:01; Status DC Fentanyl Citrate (Fentanyl 2ml Vial) 25 mcg PRN Q2HR PRN IVP MODERATE TO SEVERE PAIN Last administered on 02/09/21at 13:37; Start 02/09/21 at 13:30 Info (Review Meds) 1 ea PRN 1X PRN MC SEE COMMENTS; Start 02/09/21 at 15:00 Acetaminophen (Tylenol Supp) 650 [address]N Q6HRS PRN CT FEVER > 100.5'F or 38'C; Start 02/09/21 at 15:00 Albuterol Sulfate (Ventolin Neb Soln) 2.5 mg PRN Q4HRS PRN NEB SHORTNESS OF BREATH; Start 02/09/21 at 15:15 Iohexol (Omnipaque 350 Mg/ml) 75 ml 1X ONCE IV Last administered on 02/09/21at 15:52; Start 02/09/21 at 15:30; Stop 02/09/21 at 15:35; Status DC Iohexol (Omnipaque 350 Mg/ml) 100 ml STK-MED ONCE .ROUTE ; Start 02/09/21 at 15:26; Stop 02/09/21 at 15:27; Status DC Info (CONTRAST GIVEN -- Rx MONITORING) 1 each PRN DAILY PRN MC SEE COMMENTS; Start 02/09/21 at 15:45; Stop 02/11/21 at 15:44 Propofol 100 ml @ As Directed STK-MED ONCE IV ; Start 02/09/21 at 15:51; Stop 02/09/21 at 15:51; Status DC Rocuronium [place] (Zemuron) 50 mg STK-MED ONCE .ROUTE ; Start 02/09/21 at 15:51; Stop 02/09/21 at 15:51; Status DC Lidocaine HCl (Lidocaine HCl 2% Abboject) 100 mg STK-MED ONCE .ROUTE ; Start 02/09/21 at 15:52; Stop 02/09/21 at 15:53; Status DC Propofol 100 ml @ 3.507 mls/ hr CONT PRN IV PER PROTOCOL Last administered on 02/11/21at 13:57; Start 02/09/21 at 16:15 Lidocaine HCl (Lidocaine HCl 2% Abboject) 100 mg 1X ONCE IV Last administered on 02/09/21at 16:17; Start 02/09/21 at 16:15; Stop 02/09/21 at 16:17; Status DC Rocuronium [place] (Zemuron) 50 mg 1X ONCE IV Last administered on 02/09/21at 16:17; Start 02/09/21 at 16:15; Stop 02/09/21 at 16:17; Status DC Rocuronium [place] (Zemuron) 100 mg STK-MED ONCE .ROUTE ; Start 02/09/21 at 16:31; Stop 02/09/21 at 16:32; Status DC Gelatin (Gelfoam Size 100) 1 each STK-MED ONCE .ROUTE Last administered on 02/09/21at 17:49; Start 02/09/21 at 16:33; Stop 02/09/21 at 16:33; Status DC Bupivacaine HCl/ Epinephrine Bitart (Sensorcain-Epi 0.5%-1:[id number] Mpf) 30 ml STK-MED ONCE .ROUTE Last administered on 02/09/21at 17:49; Start 02/09/21 at 16:33; Stop 02/09/21 at 16:33; Status DC Cellulose (Surgicel Hemostat 4x8) 1 each STK-MED ONCE .ROUTE Last administered on 02/09/21at 18:38; Start 02/09/21 at 16:33; Stop 02/09/21 at 16:33; Status DC Thrombin 20,000 unit STK-MED ONCE TP Last administered on 02/09/21at 17:49; Start 02/09/21 at 16:33; Stop 02/09/21 at 16:33; Status DC Fentanyl Citrate (Fentanyl 2ml Vial) 75 mcg 1X ONCE IVP Last administered on 02/09/21at 16:45; Start 02/09/21 at 16:45; Stop 02/09/21 at 16:47; Status DC Propofol (Diprivan) 200 mg 1X ONCE IV ; Start 02/09/21 at 17:15; Stop 02/09/21 at 17:16; Status DC Lidocaine HCl (Lidocaine HCl 2% Abboject) 100 mg 1X ONCE IV ; Start 02/09/21 at 17:15; Stop 02/09/21 at 17:16; Status DC Rocuronium [place] (Zemuron) 50 mg 1X ONCE IV ; Start 02/09/21 at 17:15; Stop 02/09/21 at 17:16; Status DC Propofol 100 ml @ 0 mls/hr CONT PRN PRN IV SEDATION; Start 02/09/21 at 17:15; Stop 02/10/21 at 05:14; Status DC Cefazolin Sodium (Ancef) 1 gm STK-MED ONCE IVP ; Start 02/09/21 at 17:28; Stop 02/09/21 at 17:28; Status DC Fentanyl Citrate (Fentanyl 2ml Vial) 100 mcg STK-MED ONCE .ROUTE ; Start 02/09/21 at 17:43; Stop 02/09/21 at 17:43; Status DC Rocuronium [place] (Zemuron) 100 mg STK-MED ONCE .ROUTE ; Start 02/09/21 at 17:58; Stop 02/09/21 at 17:59; Status DC Vecuronium [place] (Norcuron Bolus) 10 mg STK-MED ONCE IV ; Start 02/09/21 at 18:49; Stop 02/09/21 at 18:50; Status DC Sodium Chloride (SODIUM CHLORIDE 20ml) 20 ml STK-MED ONCE IJ ; Start 02/09/21 at 18:50; Stop 02/09/21 at 18:50; Status DC Sevoflurane (Ultane) 90 ml STK-MED ONCE IH ; Start 02/09/21 at 19:20; Stop 02/09/21 at 19:21; Status DC Fentanyl Citrate 30 ml @ 2.5 mls/hr CONT PRN IV SEE PROTOCOL Last administered on 02/09/21at 23:40; Start 02/09/21 at 23:15; Stop 02/10/21 at 04:43; Status DC Fentanyl Citrate 55 ml @ 0 mls/hr CONT PRN IV SEE I/O Last administered on 02/11/21at 13:20; Start 02/10/21 at 05:00 Potassium Chloride/Dextrose/ Sod Cl 1,000 ml @ 80 mls/hr [id number] IV ; Start 02/10/21 at 09:00; Stop 02/10/21 at 13:21; Status DC Pantoprazole Sodium (PROTONIX VIAL for IV PUSH) 40 mg DAILYAC IVP Last administered on 02/11/21at 07:41; Start 02/10/21 at 09:00 Lidocaine HCl (Buffered Lidocaine 1%) 3 ml STK-MED ONCE .ROUTE ; Start 02/10/21 at 13:18; Stop 02/10/21 at 13:18; Status DC Sodium Chloride 1,000 ml @ 80 mls/hr [id number] IV Last administered on 02/11/21at 06:17; Start 02/10/21 at 13:30 Lidocaine HCl (Buffered Lidocaine 1%) 6 ml 1X ONCE INJ Last administered on 02/10/21at 13:57; Start 02/10/21 at 13:45; Stop 02/10/21 at 13:46; Status DC Potassium Chloride/Water 100 ml @ 100 mls/hr Q1H IV Last administered on 02/11/21at 10:07; Start 02/11/21 at 08:00; Stop 02/11/21 at 09:59; Status DC Piperacillin Sod/ Tazobactam Sod 3.375 gm/Sodium Chloride 50 ml @ 100 mls/hr Q6HRS IV Last administered on 02/11/21at 13:17; Start 02/11/21 at 09:00 Info (Tpn Per Pharmacy) 1 each PRN DAILY PRN MC SEE COMMENTS Last administered on 02/11/21at 13:45; Start 02/11/21 at 11:15 Sodium Chloride 90 meq/Potassium Chloride 50 meq/ Potassium Phosphate 13.6 mmol/Magnesium Sulfate 10 meq/ Calcium Gluconate 10 meq/ Multivitamins 5 ml/Z inc/Copper/ Manganese/ Selenium 1 ml/ Total Parenteral Nutrition/Amino Acids/Dextrose 1,512 ml @ 63 mls/hr TPN CONT IV ; Start 02/11/21 at 22:00; Stop 02/12/21 at 21:59 Vitals/I & O Vital Sign - Last 24 Hours 02/10/21 02/10/21 02/10/21 02/10/21 15:00 15:16 15:35 16:00 Pulse 103 Resp 18 B/P (MAP) 115/54 (74) Pulse Ox 97 100 O2 Delivery Ventilator Ventilator Mechanical Ventilator 02/10/21 02/10/21 02/10/21 02/10/21 16:00 16:37 17:00 18:00 Temp 99.5 99.5 Pulse 78 78 76 Resp 20 20 20 B/P (MAP) 141/63 (89) 148/50 (82) 139/59 (85) Pulse Ox 98 98 99 97 O2 Delivery Ventilator Ventilator Ventilator Ventilator 02/10/21 02/10/21 02/10/21 02/10/21 19:00 19:35 20:00 20:00 Temp 99.5 99.5 Pulse 81 77 Resp 26 23 B/P (MAP) 151/63 (92) 155/62 (93) Pulse Ox 95 98 96 O2 Delivery Ventilator Ventilator Ventilator 02/10/21 02/10/21 02/10/21 02/10/21 20:00 21:00 22:00 22:00 Pulse 78 93 Resp 23 28 B/P (MAP) 161/65 (97) 146/53 (84) Pulse Ox 95 93 92 O2 Delivery Mechanical Ventilator Ventilator Ventilator Ventilator 02/10/21 02/10/21 02/11/21 02/11/21 23:00 23:59 00:00 00:00 Temp 99.9 99.9 Pulse 77 85 Resp 22 20 B/P (MAP) 134/58 (83) 119/60 (79) Pulse Ox 95 100 O2 Delivery Ventilator Mechanical Ventilator Ventilator 02/11/21 02/11/21 02/11/21 02/11/21 00:00 01:00 02:00 02:13 Pulse 77 78 Resp 23 21 B/P (MAP) 146/65 (92) 143/63 (89) Pulse Ox 92 100 94 95 O2 Delivery Ventilator Ventilator Ventilator Ventilator 02/11/21 02/11/21 02/11/21 02/11/21 03:00 04:00 04:00 04:00 Temp 100.2 100.2 Pulse 73 78 Resp 21 22 B/P (MAP) 136/66 (89) 134/67 (89) Pulse Ox 94 95 O2 Delivery Ventilator Mechanical Ventilator Ventilator 02/11/21 02/11/21 02/11/21 02/11/21 05:00 05:00 06:00 07:00 Pulse 79 79 72 Resp 24 24 26 B/P (MAP) 145/61 (89) 145/61 (89) 150/64 (92) Pulse Ox 96 94 94 95 O2 Delivery Ventilator Ventilator Ventilator Ventilator 02/11/21 02/11/21 02/11/21 02/11/21 07:45 08:00 08:00 08:00 Temp 99.9 99.9 Pulse 76 72 Resp 28 26 B/P (MAP) 178/70 (106) 170/66 (100) Pulse Ox 93 93 O2 Delivery Ventilator Ventilator Mechanical Ventilator 02/11/21 02/11/21 02/11/21 02/11/21 08:15 08:29 08:30 08:45 Pulse 70 76 82 Resp 24 24 26 B/P (MAP) 140/60 (86) 146/62 (90) 156/60 (92) Pulse Ox 90 89 89 93 O2 Delivery Ventilator Ventilator Ventilator Ventilator 02/11/21 02/11/21 02/11/21 02/11/21 09:00 09:37 10:00 10:45 Pulse 80 82 78 Resp 24 24 B/P (MAP) 124/86 (99) 138/61 (86) 125/55 (78) Pulse Ox 90 93 94 O2 Delivery Ventilator Ventilator Ventilator 02/11/21 02/11/21 02/11/21 02/11/21 11:00 11:15 12:00 12:00 Temp 98.7 98.7 Pulse 77 76 90 Resp 27 B/P (MAP) 126/54 (78) 136/59 (84) 155/64 (94) Pulse Ox 91 89 O2 Delivery Ventilator Ventilator 02/11/21 02/11/21 02/11/21 02/11/21 12:00 12:04 13:00 13:20 Pulse 80 Resp 20 25 B/P (MAP) 141/59 (86) Pulse Ox 94 92 91 O2 Delivery Mechanical Ventilator Ventilator Ventilator Ventilator 02/11/21 02/11/21 13:22 13:50 Resp 31 Pulse Ox 94 89 O2 Delivery Ventilator Ventilator Intake and Output 02/10/21 02/10/21 02/11/21 14:59 22:59 06:59 Intake Total 1163.49 ml 1086.18 ml Output Total 300 ml 1420 ml 750 ml Balance -300 ml -256.51 ml 336.18 ml Justifications for Admission Other Justification LUCINDA DENNY MD Feb 11, 2021 14:09
--- NOTE | 2021-02-11 14:54 | PDOC ---
[facility] PROGRESS NOTE Date of Service DOS: DATE: 02/11/21 TIME: 14:51 Chief Complaint Chief Complaint Dizziness History of Present Illness History of Present Illness 02/11/2021 Patient seen and examined at bedside No major clinical changes overnight however this morning patient has largely increased amount of secretions Chest x-ray concerning for possible pneumonia, will consult ID who recommended starting Zosyn Otherwise he remains intubated and sedated We will follow subspecialist input Plan discussed with bedside RN 02/10/2021 Patient seen and examined at bedside Underwent craniotomy yesterday due to unresponsiveness in the late afternoon; was also intubated Continues to have a poor neurologic status Neurology and neurosurgery following Discussed plan of care with bedside nurse Patient is a 61-year-old male transferred for to the ICU overnight due to hypertensive emergency and intracranial hemorrhage. Patient's mother at bedside provides most the history. She reports that patient had been in his usual state of health until yesterday morning when he reported feeling tired and having a headache. Patient mother reports he normally gets up early and goes outside however this was not the case yesterday. With this headache he took BC powder and went back to bed. Patient's mother reports that he was in and out of bed throughout most of the afternoon. Says patient did not eat anything yesterday which is very unusual for him. Approximately 1130 last night she had the patient get up to go to the bathroom and heard him fall. He however is able to get up and returned to bed; unknown if he hit his head at this time. Patient again woke up around 2 AM and woke up his mother asking for orange juice and then proceeded to fall again, she does not think he hit his head at this time. He was taken to hospital and found to have a systolic blood pressure greater than [address] scan found to have an intracranial hemorrhage. Due to severity of his condition he was transferred here. Patient's mother reports she is not aware of any past medical history other than hypertension which he intermittently takes hydrochlorothiazide for. Vitals/I&O Vitals/I&O: Vital Signs Date Time Temp Pulse Resp B/P (MAP) Pulse Ox O2 Delivery O2 Flow Rate FiO2 02/11/21 14:00 88 22 126/56 (79) 91 Ventilator 02/11/21 12:00 98.7 98.7 I & O 702/10/21 02/11/21 15:00 23:00 07:00 Intake Total 1163.49 ml 1086.18 ml Output Total 305 ml 1450 ml 1000 ml Balance -305 ml -286.51 ml 86.18 ml Physical Exam General: Other (sedated on vent) Lungs: Crackles Skin: Other (dressing C,D,I) Labs Labs: Laboratory Tests Test 02/11/21 05:30 02/11/21 08:32 White Blood Count 9.2 x10^3/uL (4.0-11.0) Red Blood Count 3.26 x10^6/uL (4.30-5.70) Hemoglobin 9.8 g/dL (13.0-17.5) Hematocrit 29.4 % (39.0-53.0) Mean Corpuscular Volume 90 fL (79-100) Mean Corpuscular Hemoglobin 30 pg (25-35) Mean Corpuscular Hemoglobin Concent 33 g/dL (31-37) Red Cell Distribution Width 13.7 % (11.5-14.5) Platelet Count 153 x10^3/uL (140-400) Sodium Level 141 mmol/L (136-145) Potassium Level 3.3 mmol/L (3.5-5.1) Chloride Level 106 mmol/L (98-107) Carbon Dioxide Level 22 mmol/L (21-32) Anion Gap 13 (6-14) Blood Urea Nitrogen 34 mg/dL (8-26) Creatinine 1.6 mg/dL (0.7-1.3) Estimated GFR (Cockcroft-Gault) 53.6 Glucose Level 165 mg/dL (70-99) Calcium Level 6.9 mg/dL (8.5-10.1) Phosphorus Level 3.1 mg/dL (2.6-4.7) Magnesium Level 1.8 mg/dL (1.8-2.4) O2 Saturation 89 % (92-99) Arterial Blood pH 7.38 (7.35-7.45) Arterial Blood pCO2 at Patient Temp 39 mmHg (35-46) Arterial Blood pO2 at Patient Temp 61 mmHg (65-108) Arterial Blood HCO3 22 mmol/L (21-28) Arterial Blood Base Excess -3 mmol/L (-3-3) FiO2 50 Review of Systems Review of Systems: Cannot obtain Assessment and Plan Assessmemt and Plan Patient is a 61-year-old -[place] male presenting as transfer due to intracranial hemorrhage and hypertensive emergency Intracranial hemorrhage, hypertensive emergency -Presented to outside hospital yesterday complaining of headache and multiple falls -Has systolic blood pressure over 200 -CT scans showed intracerebral hemorrhages, confirmed on repeat here -Neurosurgery consulted performed craniotomy on February 09 after patient went unresponsive -Neurology consulted -Possible pneumonia for developing on February 11, ID consulted and starting Zosyn -Prognosis is guarded as patient has shown some significant amount of neurologic activity when sedation is turned down Problems: (1) Status post craniectomy (2) Intracranial hemorrhage (3) Hypertensive emergency Comment Review of Relevant I have reviewed the following items neela (where applicable) has been applied. Medications: Current Medications Medications (Trade) Dose Ordered Sig/Lorraine Route PRN Reason Start Time Stop Time Status Last Admin Dose Admin Potassium Chloride/Water 100 ml @ 100 mls/hr Q1H IV 02/11/21 08:00 02/11/21 09:59 DC 02/11/21 10:07 Piperacillin Sod/ Tazobactam Sod 3.375 gm/Sodium Chloride 50 ml @ 100 mls/hr Q6HRS IV 02/11/21 09:00 02/11/21 13:17 Info (Tpn Per Pharmacy) 1 each PRN DAILY PRN MC SEE COMMENTS 02/11/21 11:15 02/11/21 13:45 Justifications for Admission Other Justification MARCUS ASH MD Feb 11, 2021 14:54
--- NOTE | 2021-02-11 14:57 | RAD ---
Exam Date: 02/11/2021 2:33 PM XR CHEST 1V Indication: Reason: pt on vent, increasing O2 requirements / Spl. Instructions: / History: . Comparison: Radiograph from February 11, [address] from February 09, 2021 FINDINGS/ IMPRESSION: Support lines and tubes remain in place. The cardiac silhouette is unchanged. Lung volumes are low. Bibasilar atelectasis and or infiltrates are slightly more prominent. Small left pleural effusion persists. No pneumothorax. Emphysematous changes are again seen with biapical bulla. Electronically signed by: Keaton Johansen MD (02/11/2021 2:55 PM) STEFFEN
--- NOTE | 2021-02-11 15:23 | NUR ---
At 1430 patient having copious amounts of ritter secretions out of ET tube. Desat to 83%. Patient unable to recover on 60% O2, increased to 100%. CONTINUOUS IMPROVEMENT LEAD Fentanyl turned up to 1mcg/hr. CXR revealing increased infiltrates. Patient current O2 sat 92% on 100% oxygen. 1x 20mg IV Lasix given per Dr Salas. Will continue to monitor.
[2021-02-11] MEDS ORDERED: FUROSEMIDE 20 MG/2 ML VIAL. IVP ONE ×2 (15:30→17:00)
[2021-02-11 15:41] LABS: BASE EXCESS ABG -5 mmol/L (-3-3); HCO3 ABG 21 mmol/L (21-28); PCO2 ABG 42 mmHg (35-46); PO2 ABG 65 mmHg (65-108); SAT O2 ABG 90 % (92-99)
[2021-02-11 15:44] LABS: FIO2 ABG 100
[2021-02-11] MEDS: MIDAZOLAM 100mg/100ml NS BAG 100 ML IV PRN (19:44)
[2021-02-11] MEDS ORDERED: ACETAMINOPHEN 650 MG SUPP.RECT. PR PRN (21:15)
[2021-02-11] MEDS ORDERED: TOTAL PARENTERAL NUTRITION 1,429.9614 ML, AMINO ACID 15% 60 GM, DEXTROSE 70 % IN WATER ... IV SCH (22:00)
[2021-02-12] VITALS (24 sets, daily range): BP systolic 113–179; BP diastolic 58–82
[2021-02-12] MEDS: PIPERACILLIN/TAZOBACTAM 3.375 GM in IV NORMAL SALINE 50ML 50 ML IV SCH ×5 (00:47→23:31)
[2021-02-12] MEDS: IV NORMAL SALINE 1000ML BAG 1,000 ML IV SCH (03:00)
[2021-02-12] MEDS: PROPOFOL 100 ML IV PRN ×5 (03:48→21:53)
[2021-02-12] MEDS: MIDAZOLAM 100mg/100ml NS BAG 100 ML IV PRN ×2 (03:56→21:53)
--- NOTE | 2021-02-12 06:37 | PDOC ---
PULMONARY PROGRESS NOTES DATE: 02/12/21 TIME: 06:36 Subjective on vent oxygenation worse now on peep 5 fio2 80%, sedated on prop fentanyl large secretion good cough gag off cardene Vitals Vital Signs Date Time Temp Pulse Resp B/P (MAP) Pulse Ox O2 Delivery O2 Flow Rate FiO2 02/12/21 05:20 97 Ventilator 02/12/21 05:00 83 17 137/65 (89) 02/12/21 04:00 99.0 99.0 Comments ros unable to obtain sedated on vent HEENT: Other (s/p craniotomy perrl nose clear orally intubated neck no lad no thyromegaly) Lungs: Crackles Cardiovascular: S1, S2 Abdomen: Soft, Non-tender Extremities: No Edema Skin: Warm Labs Laboratory Tests Test 02/10/21 07:23 02/10/21 07:40 02/11/21 05:30 02/11/21 08:32 O2 Saturation 98 % (92-99) 89 % (92-99) Arterial Blood pH 7.39 (7.35-7.45) 7.38 (7.35-7.45) Arterial Blood pCO2 at Patient Temp 35 mmHg (35-46) 39 mmHg (35-46) Arterial Blood pO2 at Patient Temp 120 mmHg (65-108) 61 mmHg (65-108) Arterial Blood HCO3 21 mmol/L (21-28) 22 mmol/L (21-28) Arterial Blood Base Excess -3 mmol/L (-3-3) -3 mmol/L (-3-3) FiO2 100 50 White Blood Count 14.6 x10^3/uL (4.0-11.0) 9.2 x10^3/uL (4.0-11.0) Red Blood Count 4.42 x10^6/uL (4.30-5.70) 3.26 x10^6/uL (4.30-5.70) Hemoglobin 13.0 g/dL (13.0-17.5) 9.8 g/dL (13.0-17.5) Hematocrit 39.3 % (39.0-53.0) 29.4 % (39.0-53.0) Mean Corpuscular Volume 89 fL (79-100) 90 fL (79-100) Mean Corpuscular Hemoglobin 30 pg (25-35) 30 pg (25-35) Mean Corpuscular Hemoglobin Concent 33 g/dL (31-37) 33 g/dL (31-37) Red Cell Distribution Width 13.5 % (11.5-14.5) 13.7 % (11.5-14.5) Platelet Count 224 x10^3/uL (140-400) 153 x10^3/uL (140-400) Neutrophils (%) (Auto) 77 % (31-73) Lymphocytes (%) (Auto) 10 % (24-48) Monocytes (%) (Auto) 13 % (0-9) Eosinophils (%) (Auto) 0 % (0-3) Basophils (%) (Auto) 1 % (0-3) Neutrophils # (Auto) 11.2 x10^3/uL (1.8-7.7) Lymphocytes # (Auto) 1.4 x10^3/uL (1.0-4.8) Monocytes # (Auto) 1.9 x10^3/uL (0.0-1.1) Eosinophils # (Auto) 0.0 x10^3/uL (0.0-0.7) Basophils # (Auto) 0.1 x10^3/uL (0.0-0.2) Segmented Neutrophils % 71 % (35-66) Lymphocytes % 13 % (24-48) Monocytes % 16 % (0-10) Platelet Estimate Adequate (ADEQUATE) Sodium Level 136 mmol/L (136-145) 141 mmol/L (136-145) Potassium Level 4.2 mmol/L (3.5-5.1) 3.3 mmol/L (3.5-5.1) Chloride Level 99 mmol/L (98-107) 106 mmol/L (98-107) Carbon Dioxide Level 23 mmol/L (21-32) 22 mmol/L (21-32) Anion Gap 14 (6-14) 13 (6-14) Blood Urea Nitrogen 37 mg/dL (8-26) 34 mg/dL (8-26) Creatinine 3.4 mg/dL (0.7-1.3) 1.6 mg/dL (0.7-1.3) Estimated GFR (Cockcroft-Gault) 22.5 53.6 BUN/Creatinine Ratio 11 (6-20) Glucose Level 175 mg/dL (70-99) 165 mg/dL (70-99) Calcium Level 8.1 mg/dL (8.5-10.1) 6.9 mg/dL (8.5-10.1) Magnesium Level 2.0 mg/dL (1.8-2.4) 1.8 mg/dL (1.8-2.4) Total Bilirubin 0.4 mg/dL (0.2-1.0) Aspartate Amino Transf (AST/SGOT) 17 U/L (15-37) Alanine Aminotransferase (ALT/SGPT) 21 U/L (16-63) Alkaline Phosphatase 66 U/L (46-116) Total Protein 6.3 g/dL (6.4-8.2) Albumin 3.4 g/dL (3.4-5.0) Albumin/Globulin Ratio 1.2 (1.0-1.7) Phosphorus Level 3.1 mg/dL (2.6-4.7) Test 02/11/21 15:35 02/11/21 21:30 O2 Saturation 90 % (92-99) Arterial Blood pH 7.32 (7.35-7.45) Arterial Blood pCO2 at Patient Temp 42 mmHg (35-46) Arterial Blood pO2 at Patient Temp 65 mmHg (65-108) Arterial Blood HCO3 21 mmol/L (21-28) Arterial Blood Base Excess -5 mmol/L (-3-3) FiO2 100 Lactic Acid Level 0.6 mmol/L (0.4-2.0) Laboratory Tests Test 02/11/21 08:32 02/11/21 15:35 02/11/21 21:30 O2 Saturation 89 % (92-99) 90 % (92-99) Arterial Blood pH 7.38 (7.35-7.45) 7.32 (7.35-7.45) Arterial Blood pCO2 at Patient Temp 39 mmHg (35-46) 42 mmHg (35-46) Arterial Blood pO2 at Patient Temp 61 mmHg (65-108) 65 mmHg (65-108) Arterial Blood HCO3 22 mmol/L (21-28) 21 mmol/L (21-28) Arterial Blood Base Excess -3 mmol/L (-3-3) -5 mmol/L (-3-3) FiO2 50 100 Lactic Acid Level 0.6 mmol/L (0.4-2.0) Comments cxr 02/12 reviewed cxr reviewed ll infilt atelectasis R>L worse ett ok cxr reviewed Stable cardiomediastinal silhouette. Similar pulmonary emphysema. Unchanged patchy mid and bibasilar opacities. Similar small left pleural effusion. No pneumothorax. No acute osseous process. Endotracheal tube tip locates approximately 7.2 cm proximal to the emily. Enteric tube tip is off image, presumably in the stomach. Right IJ central venous line is unchanged in position. Impression . IMPRESSION: 1. Acute hypoxic respiratory failure secondary to intracranial hemorrhage and hypertensive emergency. worse asp pneumonia 2. Hypoxia secondary to basilar atelectasis contributed by encephalopathy. Need to continue to follow chest x-rays. 3. Long history of tobaccoism. CT angiogram showed bullous emphysema in the upper lobes. 3. Acute kidney injury. Nephrology consulted cr improving 4. Leukocytosis, likely reactive. resolved 5. POD #3 s/p Right occipital craniotomy with evacuation of intracerebral hematoma. Plan . updated 02/12 RECOMMENDATIONS: 1. cont vent support setting reviewed oxygenation worse cxr reviewed ll infilt atelectasis R>L worse on zosyn will increase peep to 7 titrate fio2 to keep sat 94% not ready for sbt 2. elevate hob 3. Follow Neurosurgery's recommendations. 4. chest x-rays reviewed 5. Monitor renal function. cr improving 6. Nephrology's recommendations. 7. Bronchodilators. 8. has large ett secretion on abx sputum cx g+ cocci g- shania needs broader coverage ? xyvox abx per id Discussed with RN and RT ELIO KAUR MD Feb 12, 2021 06:37
[2021-02-12 07:06] LABS: BASO % 0 % (0-3); EOS # 0.1 x10^3/uL (0.0-0.7); EOS % 1 % (0-3); HEMATOCRIT 35.2 % (39.0-53.0); HEMOGLOBIN 11.7 g/dL (13.0-17.5); LYMPH # 0.9 x10^3/uL (1.0-4.8); LYMPH % 11 % (24-48); MEAN CORPUSCULAR HEMOGLOBIN 30 pg (25-35); MEAN CORPUSCULAR HGB CONC 33 g/dL (31-37); MEAN CORPUSCULAR VOLUME 91 fL (79-100); MONO # 0.8 x10^3/uL (0.0-1.1); MONO % 9 % (0-9); NEUT # 6.8 x10^3/uL (1.8-7.7); NEUT % 79 % (31-73); PLATELET COUNT 192 x10^3/uL (140-400); RED BLOOD COUNT 3.89 x10^6/uL (4.30-5.70); RED CELL DISTRIBUTION WIDTH 13.8 % (11.5-14.5); WHITE BLOOD COUNT 8.6 x10^3/uL (4.0-11.0)
[2021-02-12 07:29] LABS: CALCIUM 8.7 mg/dL (8.5-10.1); CREATININE 1.3 mg/dL (0.7-1.3); GFR 68.1; MAGNESIUM 2.5 mg/dL (1.8-2.4); PHOSPHORUS 2.6 mg/dL (2.6-4.7); POTASSIUM 4.4 mmol/L (3.5-5.1)
[2021-02-12] MEDS: PANTOPRAZOLE IV PUSH 40 MG VIAL. IVP SCH (08:14)
[2021-02-12] MEDS: fentaNYL HIGH DOSE PCA 55 ML IV PRN (08:16)
--- NOTE | 2021-02-12 09:11 | PDOC ---
Infectious Disease Note Subjective Subjective pt is sedated on vent ROS ROS no n/v/d/sob Vital Sign Vital Signs Vital Signs Date Time Temp Pulse Resp B/P (MAP) Pulse Ox O2 Delivery O2 Flow Rate FiO2 02/12/21 08:50 20 97 Ventilator 02/12/21 08:00 02/12/21 07:00 76 02/12/21 04:00 99.0 99.0 Physical Exam PHYSICAL EXAM GENERAL: Sedated, orally intubated gentleman, not in distress. VITAL SIGNS: Temperature 100.2, pulse 79, respirations 24, blood pressure 145/61. HEENT: Both pupils are round and reacting. No conjunctival lesion noticed. Both pupils are actually pinpoint bilaterally. Unable to visualize since orally intubated. NECK: Supple, no JVP, no lymphadenopathy. LUNGS: Clear. HEART: S1, S2 regular. No gallop or murmur. ABDOMEN: Soft, nontender, no organomegaly. EXTREMITIES: No edema, cyanosis. SKIN: Unremarkable. 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 Labs Lab Laboratory Tests Test 02/11/21 15:35 02/11/21 21:30 02/12/21 06:45 O2 Saturation 90 % (92-99) Arterial Blood pH 7.32 (7.35-7.45) Arterial Blood pCO2 at Patient Temp 42 mmHg (35-46) Arterial Blood pO2 at Patient Temp 65 mmHg (65-108) Arterial Blood HCO3 21 mmol/L (21-28) Arterial Blood Base Excess -5 mmol/L (-3-3) FiO2 100 Lactic Acid Level 0.6 mmol/L (0.4-2.0) White Blood Count 8.6 x10^3/uL (4.0-11.0) Red Blood Count 3.89 x10^6/uL (4.30-5.70) Hemoglobin 11.7 g/dL (13.0-17.5) Hematocrit 35.2 % (39.0-53.0) Mean Corpuscular Volume 91 fL (79-100) Mean Corpuscular Hemoglobin 30 pg (25-35) Mean Corpuscular Hemoglobin Concent 33 g/dL (31-37) Red Cell Distribution Width 13.8 % (11.5-14.5) Platelet Count 192 x10^3/uL (140-400) Neutrophils (%) (Auto) 79 % (31-73) Lymphocytes (%) (Auto) 11 % (24-48) Monocytes (%) (Auto) 9 % (0-9) Eosinophils (%) (Auto) 1 % (0-3) Basophils (%) (Auto) 0 % (0-3) Neutrophils # (Auto) 6.8 x10^3/uL (1.8-7.7) Lymphocytes # (Auto) 0.9 x10^3/uL (1.0-4.8) Monocytes # (Auto) 0.8 x10^3/uL (0.0-1.1) Eosinophils # (Auto) 0.1 x10^3/uL (0.0-0.7) Basophils # (Auto) 0.0 x10^3/uL (0.0-0.2) Sodium Level 142 mmol/L (136-145) Potassium Level 4.4 mmol/L (3.5-5.1) Chloride Level 109 mmol/L (98-107) Carbon Dioxide Level 25 mmol/L (21-32) Anion Gap 8 (6-14) Blood Urea Nitrogen 31 mg/dL (8-26) Creatinine 1.3 mg/dL (0.7-1.3) Estimated GFR (Cockcroft-Gault) 68.1 Glucose Level 191 mg/dL (70-99) Calcium Level 8.7 mg/dL (8.5-10.1) Phosphorus Level 2.6 mg/dL (2.6-4.7) Magnesium Level 2.5 mg/dL (1.8-2.4) Triglycerides Level 369 mg/dL (0-150) Micro sputum G + cocci and G neg shania Objective Assessment IMPRESSION: 1. Fever. 2. Suspected aspiration. 3. Encephalopathy. 4. Intracranial bleed with mass effect, status post craniotomy and hematoma evacuation. 5. Respiratory failure. 6. Hypertension. 7. Chronic obstructive pulmonary disease. Plan Plan of Care cont antibiotics cont supportive care JANE DELGADO MD Feb 12, 2021 09:11
[2021-02-12 09:20] LABS: BASE EXCESS ABG -4 mmol/L (-3-3); HCO3 ABG 22 mmol/L (21-28); PCO2 ABG 41 mmHg (35-46); PO2 ABG 83 mmHg (65-108); SAT O2 ABG 95 % (92-99)
[2021-02-12 09:25] LABS: FIO2 ABG 70
--- NOTE | 2021-02-12 10:35 | RAD ---
Exam Date: 02/12/2021 3:46 AM XR CHEST 1V Indication: Reason: patient on ventillator 113 / Spl. Instructions: / History: . Comparison: February 11, 2021 FINDINGS/ IMPRESSION: Support lines and tubes remain in place. Emphysematous changes are again seen with biapical bulla. The cardiac silhouette is unchanged. Small left pleural effusion is increased in size. No pneumotho rax. Bibasilar atelectasis and or infiltrates are unchanged. Electronically signed by: Keaton Johansen MD (02/12/2021 10:32 AM) STEFFEN
--- NOTE | 2021-02-12 12:13 | PDOC ---
Renal-Progress Notes Subjective Notes Notes ON THE VENT History of Present Illness Hx of present illness NO ACUTE CHANGES, IMPROVING KIDNEY FUNCTION Vitals Vitals Vital Signs Date Time Temp Pulse Resp B/P (MAP) Pulse Ox O2 Delivery O2 Flow Rate FiO2 02/12/21 11:59 95 Ventilator 02/12/21 11:00 74 18 137/64 (88) 02/12/21 08:00 98.7 98.7 Weight Weight [ ] I.O. Intake and Output Intake and Output 02/12/21 07:00 Intake Total 2488.47 ml Output Total 3205 ml Balance -716.53 ml Intake IV Total 2488.47 ml Output Urine Total 3205 ml Labs Labs Laboratory Tests Test 02/11/21 15:35 02/11/21 21:30 02/12/21 06:45 02/12/21 09:10 O2 Saturation 90 % (92-99) 95 % (92-99) Arterial Blood pH 7.32 (7.35-7.45) 7.34 (7.35-7.45) Arterial Blood pCO2 at Patient Temp 42 mmHg (35-46) 41 mmHg (35-46) Arterial Blood pO2 at Patient Temp 65 mmHg (65-108) 83 mmHg (65-108) Arterial Blood HCO3 21 mmol/L (21-28) 22 mmol/L (21-28) Arterial Blood Base Excess -5 mmol/L (-3-3) -4 mmol/L (-3-3) FiO2 100 70 Lactic Acid Level 0.6 mmol/L (0.4-2.0) White Blood Count 8.6 x10^3/uL (4.0-11.0) Red Blood Count 3.89 x10^6/uL (4.30-5.70) Hemoglobin 11.7 g/dL (13.0-17.5) Hematocrit 35.2 % (39.0-53.0) Mean Corpuscular Volume 91 fL (79-100) Mean Corpuscular Hemoglobin 30 pg (25-35) Mean Corpuscular Hemoglobin Concent 33 g/dL (31-37) Red Cell Distribution Width 13.8 % (11.5-14.5) Platelet Count 192 x10^3/uL (140-400) Neutrophils (%) (Auto) 79 % (31-73) Lymphocytes (%) (Auto) 11 % (24-48) Monocytes (%) (Auto) 9 % (0-9) Eosinophils (%) (Auto) 1 % (0-3) Basophils (%) (Auto) 0 % (0-3) Neutrophils # (Auto) 6.8 x10^3/uL (1.8-7.7) Lymphocytes # (Auto) 0.9 x10^3/uL (1.0-4.8) Monocytes # (Auto) 0.8 x10^3/uL (0.0-1.1) Eosinophils # (Auto) 0.1 x10^3/uL (0.0-0.7) Basophils # (Auto) 0.0 x10^3/uL (0.0-0.2) Sodium Level 142 mmol/L (136-145) Potassium Level 4.4 mmol/L (3.5-5.1) Chloride Level 109 mmol/L (98-107) Carbon Dioxide Level 25 mmol/L (21-32) Anion Gap 8 (6-14) Blood Urea Nitrogen 31 mg/dL (8-26) Creatinine 1.3 mg/dL (0.7-1.3) Estimated GFR (Cockcroft-Gault) 68.1 Glucose Level 191 mg/dL (70-99) Calcium Level 8.7 mg/dL (8.5-10.1) Phosphorus Level 2.6 mg/dL (2.6-4.7) Magnesium Level 2.5 mg/dL (1.8-2.4) Triglycerides Level 369 mg/dL (0-150) Test 02/12/21 12:01 Glucose (Fingerstick) 197 mg/dL (70-99) Micro Micro Microbiology 02/11/21 Gram Stain Evaluation - Final, Resulted 02/11/21 Respiratory Culture - Preliminary, Resulted Review of Systems Constitutional: yes: unresponsive Physical Exam General Appearance: no apparent distress Skin: warm Heart: S1S2 Abdomen: soft, distension, other (NO BS) Extremities: pulses present Neurology: other (SEDATED) Assessment Assessment IMP MARVIN - IMPROVING WITH CR OF 1.3 FROM 3.4 HYPOKALEMIA-REPLACED ACUTE RESP FAILURE PROB ASP PNA ICB-S/P CRANIOTOMY AND HEMATOMA EVACATION ACUTE RESP FAILURE HX OF COPD ILEUS PLAN CONTROL BP GOAL SBP LESS THAN 140 CARDENE GTT NEEDED CONT TPN REPLACE ELECTROLYTES NEEDED ANTIBIOTICS VENT SUPPORT REMOVE HD LINE TODAY WILL FOLLOW ESTEBAN PERKINS MD Feb 12, 2021 12:13
[2021-02-12] MEDS ORDERED: DEXTROSE 50% 25 GM / 50ML DISP.SYRIN. IV PRN (12:15)
[2021-02-12] MEDS: TPN PER PHARMACY MC PRN (12:16)
--- NOTE | 2021-02-12 12:18 | NUR ---
Pharmacy TPN Dosing Note S: COOPER CHAVEZ is a 61 year old M Currently receiving Central Continuous TPN started 02/11/21 B:Pertinent PMH: UNABLE TO START TUBE FEEDS Current diet: NPO LABS: Sodium: 142 Potassium: 4.4 Chloride: 109 Calcium: 8.7 Corrected Calcium: 9.18 Magnesium: 2.5 CO2: 25 SCr: 1.3 Glucose: 197 Albumin: 3.4 AST: 17 ALT: 21 TPN FORMULA: TPN TYPE: Central Continuous AMINO ACIDS: 60 gm DEXTROSE: 195 gm LIPIDS: 0 gm SODIUM CHLORIDE: 80 mEq SODIUM ACETATE: - mEq SODIUM PHOSPHATE: - mmol POTASSIUM CHLORIDE: 50 mEq POTASSIUM ACETATE: - mEq POTASSIUM PHOSPHATE: 13.6 mmol MAGNESIUM: 6 mEq CALCIUM: 10 mEq INSULIN: - units MULTIPLE VITAMIN: 5 ml TRACE ELEMENTS: 1 ml ml(s) TPN PLAN: 02/12 small adjustments to Chloride and Mag, repeat labs in am. R: Continue TPN Will monitor electrolytes, glucose, and tolerance to TPN. SOPHIA JOSEPH FORMERLY [facility] [place], 02/12/21 [id number]
--- NOTE | 2021-02-12 12:19 | PDOC ---
[facility] PROGRESS NOTE Date of Service DOS: DATE: 02/12/21 TIME: 12:16 Chief Complaint Chief Complaint Dizziness History of Present Illness History of Present Illness 02/12/2021 Patient seen and examined at bedside Remains intubated and sedated Good response to IV Lasix yesterday had nearly 3 L out; will diurese again today Continue antibiotics per infectious disease Weaning ventilator and sedation as tolerated Hopeful extubation in the next few days Plan of care discussed with bedside nurse 02/11/2021 Patient seen and examined at bedside No major clinical changes overnight however this morning patient has largely increased amount of secretions Chest x-ray concerning for possible pneumonia, will consult ID who recommended starting Zosyn Otherwise he remains intubated and sedated We will follow subspecialist input Plan discussed with bedside RN 02/10/2021 Patient seen and examined at bedside Underwent craniotomy yesterday due to unresponsiveness in the late afternoon; was also intubated Continues to have a poor neurologic status Neurology and neurosurgery following Discussed plan of care with bedside nurse Patient is a 61-year-old male transferred for to the ICU overnight due to hypertensive emergency and intracranial hemorrhage. Patient's mother at bedside provides most the history. She reports that patient had been in his usual state of health until yesterday morning when he reported feeling tired and having a headache. Patient mother reports he normally gets up early and goes outside however this was not the case yesterday. With this headache he took BC powder and went back to bed. Patient's mother reports that he was in and out of bed throughout most of the afternoon. Says patient did not eat anything yesterday which is very unusual for him. Approximately 1130 last night she had the patient get up to go to the bathroom and heard him fall. He however is able to get up and returned to bed; unknown if he hit his head at this time. Patient again woke up around 2 AM and woke up his mother asking for orange juice and then proceeded to fall again, she does not think he hit his head at this time. He was taken to hospital and found to have a systolic blood pressure greater than [address] scan found to have an intracranial hemorrhage. Due to severity of his condition he was transferred here. Patient's mother reports she is not aware of any past medical history other than hypertension which he intermittently takes hydrochlorothiazide for. Vitals/I&O Vitals/I&O: Vital Signs Date Time Temp Pulse Resp B/P (MAP) Pulse Ox O2 Delivery O2 Flow Rate FiO2 02/12/21 12:00 02/12/21 12:00 Mechanical Ventilator 02/12/21 11:59 95 02/12/21 11:00 74 18 02/12/21 08:00 98.7 98.7 I & O 02/11/21 02/11/21 02/12/21 15:00 23:00 07:00 Intake Total 739 ml 565.77 ml 1183.7 ml Output Total 865 ml 1190 ml 1150 ml Balance -126 ml -624.23 ml 33.7 ml Physical Exam Physical Exam: GENERAL: Sedated, orally intubated gentleman, not in distress. VITAL SIGNS: Temperature 100.2, pulse 79, respirations 24, blood pressure 145/61. HEENT: Both pupils are round and reacting. No conjunctival lesion noticed. Both pupils are actually pinpoint bilaterally. Unable to visualize since orally intubated. NECK: Supple, no JVP, no lymphadenopathy. LUNGS: Clear. HEART: S1, S2 regular. No gallop or murmur. ABDOMEN: Soft, nontender, no organomegaly. EXTREMITIES: No edema, cyanosis. SKIN: Unremarkable. 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 General: Other (sedated on vent) Lungs: Crackles Skin: Other (dressing C,D,I) Labs Labs: Laboratory Tests Test 02/11/21 15:35 02/11/21 21:30 02/12/21 06:45 02/12/21 09:10 O2 Saturation 90 % (92-99) 95 % (92-99) Arterial Blood pH 7.32 (7.35-7.45) 7.34 (7.35-7.45) Arterial Blood pCO2 at Patient Temp 42 mmHg (35-46) 41 mmHg (35-46) Arterial Blood pO2 at Patient Temp 65 mmHg (65-108) 83 mmHg (65-108) Arterial Blood HCO3 21 mmol/L (21-28) 22 mmol/L (21-28) Arterial Blood Base Excess -5 mmol/L (-3-3) -4 mmol/L (-3-3) FiO2 100 70 Lactic Acid Level 0.6 mmol/L (0.4-2.0) White Blood Count 8.6 x10^3/uL (4.0-11.0) Red Blood Count 3.89 x10^6/uL (4.30-5.70) Hemoglobin 11.7 g/dL (13.0-17.5) Hematocrit 35.2 % (39.0-53.0) Mean Corpuscular Volume 91 fL (79-100) Mean Corpuscular Hemoglobin 30 pg (25-35) Mean Corpuscular Hemoglobin Concent 33 g/dL (31-37) Red Cell Distribution Width 13.8 % (11.5-14.5) Platelet Count 192 x10^3/uL (140-400) Neutrophils (%) (Auto) 79 % (31-73) Lymphocytes (%) (Auto) 11 % (24-48) Monocytes (%) (Auto) 9 % (0-9) Eosinophils (%) (Auto) 1 % (0-3) Basophils (%) (Auto) 0 % (0-3) Neutrophils # (Auto) 6.8 x10^3/uL (1.8-7.7) Lymphocytes # (Auto) 0.9 x10^3/uL (1.0-4.8) Monocytes # (Auto) 0.8 x10^3/uL (0.0-1.1) Eosinophils # (Auto) 0.1 x10^3/uL (0.0-0.7) Basophils # (Auto) 0.0 x10^3/uL (0.0-0.2) Sodium Level 142 mmol/L (136-145) Potassium Level 4.4 mmol/L (3.5-5.1) Chloride Level 109 mmol/L (98-107) Carbon Dioxide Level 25 mmol/L (21-32) Anion Gap 8 (6-14) Blood Urea Nitrogen 31 mg/dL (8-26) Creatinine 1.3 mg/dL (0.7-1.3) Estimated GFR (Cockcroft-Gault) 68.1 Glucose Level 191 mg/dL (70-99) Calcium Level 8.7 mg/dL (8.5-10.1) Phosphorus Level 2.6 mg/dL (2.6-4.7) Magnesium Level 2.5 mg/dL (1.8-2.4) Triglycerides Level 369 mg/dL (0-150) Test 02/12/21 12:01 Glucose (Fingerstick) 197 mg/dL (70-99) Review of Systems Review of Systems: Cannot obtain Assessment and Plan Assessmemt and Plan Patient is a 61-year-old -[place] male presenting as transfer due to intracranial hemorrhage and hypertensive emergency Intracranial hemorrhage, hypertensive emergency -Presented to outside hospital yesterday complaining of headache and multiple falls -Had systolic blood pressure over 200 -CT scans showed intracerebral hemorrhages, confirmed on repeat here -Neurosurgery consulted performed craniotomy on February 09 after patient went unresponsive -Neurology consulted -Possible pneumonia for developing on February 11, ID consulted and starting Zosyn -Prognosis is guarded as patient has shown some significant amount of neurologic activity when sedation is turned down -Pulmonary consulted for ventilator management Problems: (1) Status post craniectomy (2) Intracranial hemorrhage (3) Hypertensive emergency Comment Review of Relevant I have reviewed the following items neela (where applicable) has been applied. Medications: Current Medications Medications (Trade) Dose Ordered Sig/Lorraine Route PRN Reason Start Time Stop Time Status Last Admin Dose Admin Sodium Chloride 90 meq/Potassium Chloride 50 meq/ Potassium Phosphate 13.6 mmol/Magnesium Sulfate 10 meq/ Calcium Gluconate 10 meq/ Multivitamins 5 ml/Zinc/Copper/ Manganese/ Selenium 1 ml/ Total Parenteral Nutrition/Amino Acids/Dextrose 1,512 ml @ 63 mls/hr TPN CONT IV 02/11/21 22:00 02/12/21 21:59 02/11/21 22:32 Furosemide (Lasix) 20 mg 1X ONCE IVP 02/11/21 15:30 02/11/21 15:31 DC 02/11/21 15:11 Furosemide (Lasix) 20 mg 1X ONCE IVP 02/11/21 17:00 02/11/21 17:01 DC 02/11/21 17:00 Midazolam HCl 100 ml @ 1 mls/hr CONT PRN IV SEE PROTOCOL 02/11/21 19:30 02/12/21 03:56 Justifications for Admission Other Justification MARCUS ASH MD Feb 12, 2021 12:19
[2021-02-12] MEDS ORDERED: FUROSEMIDE 40 MG/4 ML VIAL. IVP ONE (12:30)
[2021-02-12] MEDS: INSULIN LISPRO 300 UNITS/3 ML VIAL. SQ SCH ×2 (12:44→18:02)
--- NOTE | 2021-02-12 13:10 | PDOC ---
PROGRESS NOTES Date of Service DATE: 02/12/21 TIME: 13:05 Subjective Subjective patient seen and examined at 1200 POD #3 s/p Right occipital craniotomy with evacuation of intracerebral hematoma sedated on vent large amount of secretions from ETT per RN Fever Objective Objective Vital Signs Date Time Temp Pulse Resp B/P (MAP) Pulse Ox O2 Delivery O2 Flow Rate FiO2 02/12/21 12:00 02/12/21 12:00 Mechanical Ventilator 02/12/21 12:00 97.9 76 20 97 97.9 Intake and Output 02/12/21 07:00 Intake Total 2488.47 ml Output Total 3205 ml Balance -716.53 ml Intake IV Total 2488.47 ml Output Urine Total 3205 ml Physical Exam General: Other (sedated on vent) Skin: Other (dressing C,D, I) Plan Plan of Care blood pressure control vent per pulmonary antibiotics per ID wean sedation as tolerated to evaluate neuro status Comment Review of Relevant I have reviewed the following items neela (where applicable) has been applied. Labs Laboratory Tests Test 02/11/21 05:30 02/11/21 08:32 02/11/21 15:35 02/11/21 21:30 White Blood Count 9.2 x10^3/uL (4.0-11.0) Red Blood Count 3.26 x10^6/uL (4.30-5.70) Hemoglobin 9.8 g/dL (13.0-17.5) Hematocrit 29.4 % (39.0-53.0) Mean Corpuscular Volume 90 fL (79-100) Mean Corpuscular Hemoglobin 30 pg (25-35) Mean Corpuscular Hemoglobin Concent 33 g/dL (31-37) Red Cell Distribution Width 13.7 % (11.5-14.5) Platelet Count 153 x10^3/uL (140-400) Sodium Level 141 mmol/L (136-145) Potassium Level 3.3 mmol/L (3.5-5.1) Chloride Level 106 mmol/L (98-107) Carbon Dioxide Level 22 mmol/L (21-32) Anion Gap 13 (6-14) Blood Urea Nitrogen 34 mg/dL (8-26) Creatinine 1.6 mg/dL (0.7-1.3) Estimated GFR (Cockcroft-Gault) 53.6 Glucose Level 165 mg/dL (70-99) Calcium Level 6.9 mg/dL (8.5-10.1) Phosphorus Level 3.1 mg/dL (2.6-4.7) Magnesium Level 1.8 mg/dL (1.8-2.4) O2 Saturation 89 % (92-99) 90 % (92-99) Arterial Blood pH 7.38 (7.35-7.45) 7.32 (7.35-7.45) Arterial Blood pCO2 at Patient Temp 39 mmHg (35-46) 42 mmHg (35-46) Arterial Blood pO2 at Patient Temp 61 mmHg (65-108) 65 mmHg (65-108) Arterial Blood HCO3 22 mmol/L (21-28) 21 mmol/L (21-28) Arterial Blood Base Excess -3 mmol/L (-3-3) -5 mmol/L (-3-3) FiO2 50 100 Lactic Acid Level 0.6 mmol/L (0.4-2.0) Test 02/12/21 06:45 02/12/21 09:10 02/12/21 12:01 White Blood Count 8.6 x10^3/uL (4.0-11.0) Red Blood Count 3.89 x10^6/uL (4.30-5.70) Hemoglobin 11.7 g/dL (13.0-17.5) Hematocrit 35.2 % (39.0-53.0) Mean Corpuscular Volume 91 fL (79-100) Mean Corpuscular Hemoglobin 30 pg (25-35) Mean Corpuscular Hemoglobin Concent 33 g/dL (31-37) Red Cell Distribution Width 13.8 % (11.5-14.5) Platelet Count 192 x10^3/uL (140-400) Neutrophils (%) (Auto) 79 % (31-73) Lymphocytes (%) (Auto) 11 % (24-48) Monocytes (%) (Auto) 9 % (0-9) Eosinophils (%) (Auto) 1 % (0-3) Basophils (%) (Auto) 0 % (0-3) Neutrophils # (Auto) 6.8 x10^3/uL (1.8-7.7) Lymphocytes # (Auto) 0.9 x10^3/uL (1.0-4.8) Monocytes # (Auto) 0.8 x10^3/uL (0.0-1.1) Eosinophils # (Auto) 0.1 x10^3/uL (0.0-0.7) Basophils # (Auto) 0.0 x10^3/uL (0.0-0.2) Sodium Level 142 mmol/L (136-145) Potassium Level 4.4 mmol/L (3.5-5.1) Chloride Level 109 mmol/L (98-107) Carbon Dioxide Level 25 mmol/L (21-32) Anion Gap 8 (6-14) Blood Urea Nitrogen 31 mg/dL (8-26) Creatinine 1.3 mg/dL (0.7-1.3) Estimated GFR (Cockcroft-Gault) 68.1 Glucose Level 191 mg/dL (70-99) Calcium Level 8.7 mg/dL (8.5-10.1) Phosphorus Level 2.6 mg/dL (2.6-4.7) Magnesium Level 2.5 mg/dL (1.8-2.4) Triglycerides Level 369 mg/dL (0-150) O2 Saturation 95 % (92-99) Arterial Blood pH 7.34 (7.35-7.45) Arterial Blood pCO2 at Patient Temp 41 mmHg (35-46) Arterial Blood pO2 at Patient Temp 83 mmHg (65-108) Arterial Blood HCO3 22 mmol/L (21-28) Arterial Blood Base Excess -4 mmol/L (-3-3) FiO2 70 Glucose (Fingerstick) 197 mg/dL (70-99) Laboratory Tests Test 02/11/21 15:35 02/11/21 21:30 02/12/21 06:45 02/12/21 09:10 O2 Saturation 90 % (92-99) 95 % (92-99) Arterial Blood pH 7.32 (7.35-7.45) 7.34 (7.35-7.45) Arterial Blood pCO2 at Patient Temp 42 mmHg (35-46) 41 mmHg (35-46) Arterial Blood pO2 at Patient Temp 65 mmHg (65-108) 83 mmHg (65-108) Arterial Blood HCO3 21 mmol/L (21-28) 22 mmol/L (21-28) Arterial Blood Base Excess -5 mmol/L (-3-3) -4 mmol/L (-3-3) FiO2 100 70 Lactic Acid Level 0.6 mmol/L (0.4-2.0) White Blood Count 8.6 x10^3/uL (4.0-11.0) Red Blood Count 3.89 x10^6/uL (4.30-5.70) Hemoglobin 11.7 g/dL (13.0-17.5) Hematocrit 35.2 % (39.0-53.0) Mean Corpuscular Volume 91 fL (79-100) Mean Corpuscular Hemoglobin 30 pg (25-35) Mean Corpuscular Hemoglobin Concent 33 g/dL (31-37) Red Cell Distribution Width 13.8 % (11.5-14.5) Platelet Count 192 x10^3/uL (140-400) Neutrophils (%) (Auto) 79 % (31-73) Lymphocytes (%) (Auto) 11 % (24-48) Monocytes (%) (Auto) 9 % (0-9) Eosinophils (%) (Auto) 1 % (0-3) Basophils (%) (Auto) 0 % (0-3) Neutrophils # (Auto) 6.8 x10^3/uL (1.8-7.7) Lymphocytes # (Auto) 0.9 x10^3/uL (1.0-4.8) Monocytes # (Auto) 0.8 x10^3/uL (0.0-1.1) Eosinophils # (Auto) 0.1 x10^3/uL (0.0-0.7) Basophils # (Auto) 0.0 x10^3/uL (0.0-0.2) Sodium Level 142 mmol/L (136-145) Potassium Level 4.4 mmol/L (3.5-5.1) Chloride Level 109 mmol/L (98-107) Carbon Dioxide Level 25 mmol/L (21-32) Anion Gap 8 (6-14) Blood Urea Nitrogen 31 mg/dL (8-26) Creatinine 1.3 mg/dL (0.7-1.3) Estimated GFR (Cockcroft-Gault) 68.1 Glucose Level 191 mg/dL (70-99) Calcium Level 8.7 mg/dL (8.5-10.1) Phosphorus Level 2.6 mg/dL (2.6-4.7) Magnesium Level 2.5 mg/dL (1.8-2.4) Triglycerides Level 369 mg/dL (0-150) Test 02/12/21 12:01 Glucose (Fingerstick) 197 mg/dL (70-99) Microbiology 02/11/21 Gram Stain Evaluation - Final, Resulted 02/11/21 Respiratory Culture - Preliminary, Resulted Medications Current Medications Nicardipine HCl 50 mg/Sodium Chloride 250 ml @ 12.5 mls/hr CONT PRN IV SEE I/O RECORD Last administered on 02/11/21at 11:57; Start 02/09/21 at 06:15 Labetalol HCl (Normodyne Iv Push) 10 mg PRN Q2HR PRN IVP HYPERTENSION Last administered on 02/09/21at 06:35; Start 02/09/21 at 06:15 Lorazepam (Ativan Inj) 2 mg 1X ONCE IVP Last administered on 02/09/21at 10:54; Start 02/09/21 at 10:45; Stop 02/09/21 at 10:46; Status DC Lorazepam (Ativan Inj) 2 mg 1X ONCE IVP Last administered on 02/09/21at 11:00; Start 02/09/21 at 11:00; Stop 02/09/21 at 11:01; Status DC Fentanyl Citrate (Fentanyl 2ml Vial) 25 mcg PRN Q2HR PRN IVP MODERATE TO SEVERE PAIN Last administered on 02/09/21at 13:37; Start 02/09/21 at 13:30 Info (Review Meds) 1 ea PRN 1X PRN MC SEE COMMENTS; Start 02/09/21 at 15:00 Acetaminophen (Tylenol Supp) 650 mg PRN Q6HRS PRN [place] FEVER > 100.5'F or 38'C; Start 02/09/21 at 15:00; Stop 02/11/21 at 21:12; Status DC Albuterol Sulfate (Ventolin Neb Soln) 2.5 mg PRN Q4HRS PRN NEB SHORTNESS OF BREATH; Start 02/09/21 at 15:15 Iohexol (Omnipaque 350 Mg/ml) 75 ml 1X ONCE IV Last administered on 02/09/21at 15:52; Start 02/09/21 at 15:30; Stop 02/09/21 at 15:35; Status DC Iohexol (Omnipaque 350 Mg/ml) 100 ml STK-MED ONCE .ROUTE ; Start 02/09/21 at 15:26; Stop 02/09/21 at 15:27; Status DC Info (CONTRAST GIVEN -- Rx MONITORING) 1 each PRN DAILY PRN MC SEE COMMENTS; Start 02/09/21 at 15:45; Stop 02/11/21 at 15:44; Status DC Propofol 100 ml @ As Directed STK-MED ONCE IV ; Start 02/09/21 at 15:51; Stop 02/09/21 at 15:51; Status DC Rocuronium Duchesne (Zemuron) 50 mg STK-MED ONCE .ROUTE ; Start 02/09/21 at 15:51; Stop 02/09/21 at 15:51; Status DC Lidocaine HCl (Lidocaine HCl 2% Abboject) 100 mg STK-MED ONCE .ROUTE ; Start 02/09/21 at 15:52; Stop 02/09/21 at 15:53; Status DC Propofol 100 ml @ 3.507 mls/ hr CONT PRN IV PER PROTOCOL Last administered on 02/12/21at 08:14; Start 02/09/21 at 16:15 Lidocaine HCl (Lidocaine HCl 2% Abboject) 100 mg 1X ONCE IV Last administered on 02/09/21at 16:17; Start 02/09/21 at 16:15; Stop 02/09/21 at 16:17; Status DC Rocuronium Duchesne (Zemuron) 50 mg 1X ONCE IV Last administered on 02/09/21at 16:17; Start 02/09/21 at 16:15; Stop 02/09/21 at 16:17; Status DC Rocuronium Duchesne (Zemuron) 100 mg STK-MED ONCE .ROUTE ; Start 02/09/21 at 16:31; Stop 02/09/21 at 16:32; Status DC Gelatin (Gelfoam Size 100) 1 each STK-MED ONCE .ROUTE Last administered on 02/09/21at 17:49; Start 02/09/21 at 16:33; Stop 02/09/21 at 16:33; Status DC Bupivacaine HCl/ Epinephrine Bitart (Sensorcain-Epi 0.5%-1:167953 Mpf) 30 ml STK-MED ONCE .ROUTE Last administered on 02/09/21at 17:49; Start 02/09/21 at 16:33; Stop 02/09/21 at 16:33; Status DC Cellulose (Surgicel Hemostat 4x8) 1 each STK-MED ONCE .ROUTE Last administered on 02/09/21at 18:38; Start 02/09/21 at 16:33; Stop 02/09/21 at 16:33; Status DC Thrombin 20,000 unit STK-MED ONCE TP Last administered on 02/09/21at 17:49; Start 02/09/21 at 16:33; Stop 02/09/21 at 16:33; Status DC Fentanyl Citrate (Fentanyl 2ml Vial) 75 mcg 1X ONCE IVP Last administered on 02/09/21at 16:45; Start 02/09/21 at 16:45; Stop 02/09/21 at 16:47; Status DC Propofol (Diprivan) 200 mg 1X ONCE IV ; Start 02/09/21 at 17:15; Stop 02/09/21 at 17:16; Status DC Lidocaine HCl (Lidocaine HCl 2% Abboject) 100 mg 1X ONCE IV ; Start 02/09/21 at 17:15; Stop 02/09/21 at 17:16; Status DC Rocuronium Duchesne (Zemuron) 50 mg 1X ONCE IV ; Start 02/09/21 at 17:15; Stop 02/09/21 at 17:16; Status DC Propofol 100 ml @ 0 mls/hr CONT PRN PRN IV SEDATION; Start 02/09/21 at 17:15; Stop 02/10/21 at 05:14; Status DC Cefazolin Sodium (Ancef) 1 gm STK-MED ONCE IVP ; Start 02/09/21 at 17:28; Stop 02/09/21 at 17:28; Status DC Fentanyl Citrate (Fentanyl 2ml Vial) 100 mcg STK-MED ONCE .ROUTE ; Start 02/09/21 at 17:43; Stop 02/09/21 at 17:43; Status DC Rocuronium Duchesne (Zemuron) 100 mg STK-MED ONCE .ROUTE ; Start 02/09/21 at 17:58; Stop 02/09/21 at 17:59; Status DC Vecuronium Duchesne (Norcuron Bolus) 10 mg STK-MED ONCE IV ; Start 02/09/21 at 18:49; Stop 02/09/21 at 18:50; Status DC Sodium Chloride (SODIUM CHLORIDE 20ml) 20 ml STK-MED ONCE IJ ; Start 02/09/21 at 18:50; Stop 02/09/21 at 18:50; Status DC Sevoflurane (Ultane) 90 ml STK-MED ONCE IH ; Start 02/09/21 at 19:20; Stop 02/09/21 at 19:21; Status DC Fentanyl Citrate 30 ml @ 2.5 mls/hr CONT PRN IV SEE PROTOCOL Last administered on 02/09/21at 23:40; Start 02/09/21 at 23:15; Stop 02/10/21 at 04:43; Status DC Fentanyl Citrate 55 ml @ 0 mls/hr CONT PRN IV SEE I/O Last administered on 02/12/21at 08:16; Start 02/10/21 at 05:00 Potassium Chloride/Dextrose/ Sod Cl 1,000 ml @ 80 mls/hr [id number] IV ; Start 02/10/21 at 09:00; Stop 02/10/21 at 13:21; Status DC Pantoprazole Sodium (PROTONIX VIAL for IV PUSH) 40 mg DAILYAC IVP Last administered on 02/12/21at 08:14; Start 02/10/21 at 09:00 Lidocaine HCl (Buffered Lidocaine 1%) 3 ml STK-MED ONCE .ROUTE ; Start 02/10/21 at 13:18; Stop 02/10/21 at 13:18; Status DC Sodium Chloride 1,000 ml @ 80 mls/hr [id number] IV Last administered on 02/12/21at 03:00; Start 02/10/21 at 13:30 Lidocaine HCl (Buffered Lidocaine 1%) 6 ml 1X ONCE INJ Last administered on 02/10/21at 13:57; Start 02/10/21 at 13:45; Stop 02/10/21 at 13:46; Status DC Potassium Chloride/Water 100 ml @ 100 mls/hr Q1H IV Last administered on 02/11/21at 10:07; Start 02/11/21 at 08:00; Stop 02/11/21 at 09:59; Status DC Piperacillin Sod/ Tazobactam Sod 3.375 gm/Sodium Chloride 50 ml @ 100 mls/hr Q6HRS IV Last administered on 02/12/21at 11:51; Start 02/11/21 at 09:00 Info (Tpn Per Pharmacy) 1 each PRN DAILY PRN MC SEE COMMENTS Last administered on 02/12/21at 12:16; Start 02/11/21 at 11:15 Sodium Chloride 90 meq/Potassium Chloride 50 meq/ Potassium Phosphate 13.6 mmol /Magnesium Sulfate 10 meq/ Calcium Gluconate 10 meq/ Multivitamins 5 ml/Zinc/Copper/ Manganese/ Selenium 1 ml/ Total Parenteral Nutrition/Amino Acids/Dextrose 1,512 ml @ 63 mls/hr TPN CONT IV Last administered on 02/11/21at 22:32; Start 02/11/21 at 22:00; Stop 02/12/21 at 21:59 Furosemide (Lasix) 20 mg 1X ONCE IVP Last administered on 02/11/21at 15:11; Start 02/11/21 at 15:30; Stop 02/11/21 at 15:31; Status DC Furosemide (Lasix) 20 mg 1X ONCE IVP Last administered on 02/11/21at 17:00; Start 02/11/21 at 17:00; Stop 02/11/21 at 17:01; Status DC Midazolam HCl 100 ml @ 1 mls/hr CONT PRN IV SEE PROTOCOL Last administered on 02/12/21at 03:56; Start 02/11/21 at 19:30 Acetaminophen (Tylenol Supp) 650 mg PRN Q6HRS PRN [place] MILD PAIN / TEMP > 100.3'F; Start 02/11/21 at 21:15 Sodium Chloride 80 meq/Potassium Chloride 50 meq/ Potassium Phosphate 13.6 mmol/Magnesium Sulfate 6 meq/ Calcium Gluconate 10 meq/ Multivitamins 5 ml/Zinc/Copper/ Manganese/ Selenium 1 ml/ Total Parenteral Nutrition/Amino Acids/Dextrose 1,512 ml @ 63 mls/hr TPN CONT IV ; Start 02/12/21 at 22:00; Stop 02/13/21 at 21:59 Furosemide (Lasix) 40 mg 1X ONCE IVP Last administered on 02/12/21at 12:44; Start 02/12/21 at 12:30; Stop 02/12/21 at 12:31; Status DC Insulin Human Lispro (HumaLOG) 0-5 UNITS Q6HRS SQ Last administered on 02/12/21at 12:44; Start 02/12/21 at 12:00 Dextrose (Dextrose 50%-Water Syringe) 12.5 gm PRN Q15MIN PRN IV SEE COMMENTS; Start 02/12/21 at 12:15 Vitals/I & O Vital Sign - Last 24 Hours 02/11/21 02/11/21 02/11/21 02/11/21 13:20 13:22 13:50 14:00 Pulse 88 Resp 25 31 22 B/P (MAP) 126/56 (79) Pulse Ox 91 94 89 91 O2 Delivery Ventilator Ventilator Ventilator Ventilator 02/11/21 02/11/21 02/11/21 02/11/21 14:15 14:30 14:45 15:00 Pulse 78 80 80 79 Resp 24 B/P (MAP) 140/52 (81) 126/46 (72) 126/50 (75) 127/49 (75) Pulse Ox 91 O2 Delivery Ventilator 02/11/21 02/11/21 02/11/21 02/11/21 15:36 15:59 16:00 16:00 Temp 98.8 98.8 Pulse 78 Resp 26 B/P (MAP) 150/58 (88) Pulse Ox 93 93 O2 Delivery Mechanical Ventilator Ventilator Ventilator 02/11/21 02/11/21 02/11/21 02/11/21 17:00 17:45 18:00 19:00 Pulse 82 90 90 Resp 20 20 18 B/P (MAP) 146/56 (86) 124/50 (74) 118/50 (72) Pulse Ox 93 93 93 94 O2 Delivery Ventilator Ventilator Ventilator Ventilator 02/11/21 02/11/21 02/11/21 02/11/21 20:00 20:00 20:00 20:38 Temp 101.2 101.2 Pulse 103 Resp 22 B/P (MAP) 90/52 (65) Pulse Ox 93 94 O2 Delivery Ventilator Mechanical Ventilator Ventilator 02/11/21 02/11/21 02/11/21 02/11/21 21:00 22:00 22:45 23:00 Temp 100.6 100.6 Pulse 86 90 85 Resp 29 18 18 B/P (MAP) 153/61 (91) 134/58 (83) 124/60 (81) Pulse Ox 94 97 99 98 O2 Delivery Ventilator Ventilator Ventilator Ventilator 02/11/21 02/12/21 02/12/21 02/12/21 23:59 00:00 00:00 01:00 Temp 99.4 99.4 Pulse 86 Resp 20 B/P (MAP) 126/58 (80) Pulse Ox 97 94 O2 Delivery Mechanical Ventilator Ventilator Ventilator 02/12/21 02/12/21 02/12/21 02/12/21 01:00 02:00 03:00 03:20 Pulse 91 81 79 Resp 16 16 23 B/P (MAP) 152/64 (93) 114/58 (76) 125/63 (83) Pulse Ox 96 98 97 98 O2 Delivery Ventilator Ventilator Ventilator Ventilator 02/12/21 02/12/21 02/12/21 02/12/21 04:00 04:00 04:00 05:00 Temp 99.0 99.0 Pulse 86 83 Resp 20 17 B/P (MAP) 122/60 (80) 137/65 (89) Pulse Ox 97 97 O2 Delivery Ventilator Mechanical Ventilator Ventilator 02/12/21 02/12/21 02/12/21 02/12/21 05:20 06:00 07:00 08:00 Temp 98.7 98.7 Pulse 77 76 77 Resp 19 16 20 B/P (MAP) 131/61 (84) 132/64 (86) 136/66 (89) Pulse Ox 97 95 96 96 O2 Delivery Ventilator Ventilator Ventilator Ventilator 02/12/21 02/12/21 02/12/21 02/12/21 08:00 08:00 08:16 08:50 Resp 20 20 B/P (MAP) Pulse Ox 96 97 O2 Delivery Mechanical Ventilator Ventilator Ventilator 02/12/21 02/12/21 02/12/21 02/12/21 09:00 09:07 10:00 10:19 Pulse 74 73 Resp 20 18 B/P (MAP) 132/66 (88) 142/73 (96) Pulse Ox 97 97 96 97 O2 Delivery Ventilator Ventilator Ventilator Ventilator 02/12/21 02/12/21 02/12/21 02/12/21 11:00 11:59 12:00 12:00 Temp 97.9 97.9 Pulse 74 76 Resp 18 20 B/P (MAP) 137/64 (88) 155/70 (98) Pulse Ox 96 95 97 O2 Delivery Ventilator Ventilator Ventilator Mechanical Ventilator 02/12/21 12:00 B/P (MAP) Intake and Output 02/11/21 02/11/21 02/12/21 15:00 23:00 07:00 Intake Total 739 ml 565.77 ml 1183.7 ml Output Total 865 ml 1190 ml 1150 ml Balance -126 ml -624.23 ml 33.7 ml Justifications for Admission Other Justification LUCINDA DENNY MD Feb 12, 2021 13:10
[2021-02-12] MEDS ORDERED: [UNRECOGNIZED DRUG - OTHER] IV SCH (22:00)
[2021-02-12] MEDS ORDERED: DEXTROSE 70% IV SCH (22:00)
[2021-02-12] MEDS ORDERED: AMINO ACID IV SCH (22:00)
[2021-02-12] MEDS ORDERED: TOTAL PARENTERAL NUTRITION IV SCH (22:00)
[2021-02-12] MEDS: LABETALOL 20 MG/4 ML DISP.SYRIN. IVP PRN (23:26)
[2021-02-13] VITALS (24 sets, daily range): BP systolic 126–198; BP diastolic 58–100
[2021-02-13] MEDS: INSULIN LISPRO 300 UNITS/3 ML VIAL. SQ SCH ×4 (00:42→18:06)
[2021-02-13] MEDS: PROPOFOL 100 ML IV PRN ×8 (00:43→21:41)
[2021-02-13] MEDS: LABETALOL 20 MG/4 ML DISP.SYRIN. IVP PRN ×5 (04:18→21:08)
[2021-02-13] MEDS: PIPERACILLIN/TAZOBACTAM 3.375 GM in IV NORMAL SALINE 50ML 50 ML IV SCH ×3 (05:47→17:50)
[2021-02-13 06:01] LABS: HEMATOCRIT 34.5 % (39.0-53.0); HEMOGLOBIN 11.4 g/dL (13.0-17.5); RED BLOOD COUNT 3.77 x10^6/uL (4.30-5.70); RED CELL DISTRIBUTION WIDTH 13.9 % (11.5-14.5); WHITE BLOOD COUNT 7.8 x10^3/uL (4.0-11.0)
[2021-02-13 06:11] LABS: CALCIUM 9.2 mg/dL (8.5-10.1); CREATININE 1.2 mg/dL (0.7-1.3); GFR 74.7; MAGNESIUM 2.4 mg/dL (1.8-2.4); PHOSPHORUS 3.7 mg/dL (2.6-4.7); POTASSIUM 4.7 mmol/L (3.5-5.1)
[2021-02-13] MEDS: PANTOPRAZOLE IV PUSH 40 MG VIAL. IVP SCH (08:24)
--- NOTE | 2021-02-13 08:32 | PDOC ---
PROGRESS NOTES Date of Service: DATE: 02/13/21 TIME: 08:31 Chief Complaint Chief Complaint IMPRESSION Dizziness Large right temporo-occipital intraparenchymal bleed, most likely lobar hemorrhage from hypertension, consider venous sinus thrombosis, , aneurysmal bleed, Had craniotomy 02/09 evening Suspect aspiration, respiratory failure, hypertension, chronic obstructive pulmonary disease, improving acute kidney injury MORBID OBESITY History of Present Illness History of Present Illness 02/13/2021 POD #4 Right occipital craniotomy with evacuation of intracerebral hematoma sedated on vent Patient seen and examined at bedside Good response to IV Lasix Continue antibiotics per infectious disease Weaning ventilator and sedation as tolerated Hopeful extubation in the next few days Plan of care discussed with bedside nurse Expected interval evolution of a right posterior temporal/occipital intraparenchymal hematoma status post decompressive craniotomy Large right temporo-occipital intraparenchymal bleed, most likely lobar hemorrhage from hypertension, consider venous sinus thrombosis, less likely in this location, aneurysmal bleed, head trauma (also unlikely). Had craniotomy 02/09 evening Suspect of aspiration, respiratory failure, hypertension, chronic obstructive pulmonary disease, improving acute kidney injury cont Zosyn 35 MIN CC TIME 02/12/2021 Patient seen and examined at bedside Remains intubated and sedated Good response to IV Lasix yesterday had nearly 3 L out; will diurese again today Continue antibiotics per infectious disease Weaning ventilator and sedation as tolerated Hopeful extubation in the next few days Plan of care discussed with bedside nurse 02/11/2021 Patient seen and examined at bedside No major clinical changes overnight however this morning patient has largely increased amount of secretions Chest x-ray concerning for possible pneumonia, will consult ID who recommended starting Zosyn Otherwise he remains intubated and sedated We will follow subspecialist input Plan discussed with bedside RN 02/10/2021 Patient seen and examined at bedside Underwent craniotomy yesterday due to unresponsiveness in the late afternoon; was also intubated Continues to have a poor neurologic status Neurology and neurosurgery following Discussed plan of care with bedside nurse Patient is a 61-year-old male transferred for to the ICU overnight due to hypertensive emergency and intracranial hemorrhage. Patient's mother at bedside provides most the history. She reports that patient had been in his usual state of health until yesterday morning when he reported feeling tired and having a headache. Patient mother reports he normally gets up early and goes outside however this was not the case yesterday. With this headache he took BC powder and went back to bed. Patient's mother reports that he was in and out of bed throughout most of the afternoon. Says patient did not eat anything yesterday which is very unusual for him. Approximately 1130 last night she had the patient get up to go to the bathroom and heard him fall. He however is able to get up and returned to bed; unknown if he hit his head at this time. Patient again woke up around 2 AM and woke up his mother asking for orange juice and then proceeded to fall again, she does not think he hit his head at this time. He was taken to hospital and found to have a systolic blood pressure greater than [address] scan found to have an intracranial hemorrhage. Due to severity of his condition he was transferred here. Patient's mother reports she is not aware of any past medical history other than hypertension which he intermittently takes hydrochlorothiazide for. Vitals Vitals Vital Signs Date Time Temp Pulse Resp B/P (MAP) Pulse Ox O2 Delivery O2 Flow Rate FiO2 02/13/21 08:25 65 172/78 02/13/21 06:00 19 99 Ventilator 02/13/21 04:00 98.7 98.7 Physical Exam Physical Exam GENERAL: Sedated, orally intubated gentleman, not in distress. VITAL SIGNS: Temperature 100.2, pulse 79, respirations 24, blood pressure 145/61. HEENT: Both pupils are round and reacting. No conjunctival lesion noticed. Both pupils are actually pinpoint bilaterally. Unable to visualize since orally intubated. NECK: Supple, no JVP, no lymphadenopathy. LUNGS: Clear. HEART: S1, S2 regular. No gallop or murmur. ABDOMEN: Soft, nontender, no organomegaly. EXTREMITIES: No edema, cyanosis. SKIN: Unremarkable. 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 General: Other (sedated on vent) Lungs: Crackles Skin: Other (dressing C,D, I) Labs LABS CT HEAD/BRAIN WO, CTA HEAD AND NECK W/WO CONTRAST History:Reason: pt went completely unresponsive [phone] / Spl. Instructions: / History: Technique: Noncontrast head CT was performed in correlation with this exam. After bolus of intravenous contrast, volumetric CT data acquisition was acquired of the head and neck. Multiplanar reconstruction images to include MIP and 3-D reconstruction images are submitted. Exposure: One or more of the following individualized dose reduction techniques were utilized for this examination: 1. Automated exposure control 2. Adjustment of the mA and/or kV according to patient size 3. Use of iterative reconstruction technique. Comparison: February 09, 2021 Any determination of stenosis is based on NASCET criteria. Noncontrast CT head: Unchanged right posterior cerebral intraparenchymal hemorrhage with surrounding edema involving the right parietal occipital and temporal lobes. Small right posterior falcine and posterior cerebral subdural hematoma, unchanged and better evaluated on the current examination due to motion artifact previously. Unchanged mass effect on the right posterior lateral ventricle with unchanged leftward midline shift measures 3 mm. Imaged orbits are unremarkable. Imaged paranasal sinuses and mastoid air cells are clear. Head CTA: ICA: Moderate carotid siphon atheromatous plaque with mild narrowing, left greater than right. No occlusion. MCA: No stenosis, occlusion or aneurysm. Injury displacement of right MCA branches due to intraparenchymal hematoma. ALAYNA: No stenosis, occlusion or aneurysm. RIGGING UP WORKER: No stenosis, occlusion or aneurysm. Basilar artery: No stenosis, occlusion or aneurysm. Distal vertebral arteries: No stenosis, occlusion or aneurysm. No aneurysm or vascular malformation within the region of the right posterior cerebral hematoma. CT angiogram neck: Aortic arch: Degraded due to contrast bolus timing artifact Common carotid arteries: Degraded evaluation of the common carotid arteries due to patient motion. Internal carotid arteries: No stenosis, occlusion or dissection. 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 Patent right vertebral artery. Pulmonary emphysema with large right apical bullous disease. Soft tissues appear normal. Bones: Multilevel cervical spondylosis most prominent C4-C5 and C5-C6. Impression: Noncontrast head CT: 1. Unchanged right posterior cerebral intraparenchymal hematoma with adjacent edema and mass effect. 2. Small right posterior parafalcine and the posterior cerebral subdural hematoma, unchanged. CT angiogram head: 1. No evidence of arterial venous malformation or aneurysm within the region of the intraparenchymal hematoma. CT angiogram neck: 1. Degraded evaluation due to patient motion and technique. 2. Occlusion of the left vertebral artery 3. Pulmonary emphysema. Electronically signed by: Aaron Mayes DO (02/09/2021 4:28 PM) [id number] DICTATED and SIGNED BY: AARON MAYES DO DATE: 02/09/21 [id number] PATIENT: COOPER CHAVEZ ACCOUNT: [id number] : 1960 LOCATION: [address] [place] [address] AGE: 61 SEX: M EXAM STATUS: ADM IN ORD. PHYSICIAN: LUCINDA DENNY MD REASON: f/u ICH PROCEDURE: CT HEAD WO CONTRAST EXAM: CT HEAD WITHOUT CONTRAST. HISTORY: Intracranial hemorrhage. TECHNIQUE: Computed tomography of the head was performed without intravenous contrast. One or more of the following individualized dose reduction techniques were utilized for this examination: 1. Automated exposure control. 2. Adjustment of the mA and/or kV according to patient size. 3. Use of iterative reconstruction technique. COMPARISON: 02/10/2021. FINDINGS: An intraparenchymal hemorrhage versus hemorrhagic transformation of an infarct throughout the right posterior temporal and occipital lobes spans 5.3 x 4.8 cm and has evolved mildly in the interval. Pneumocephalus associated with overlying right occipital craniotomy has resolved. There is mild mass effect on the occipital horn of the right lateral ventricle, not clearly changed. A small amount of sulcal subarachnoid hemorrhage on the left has evolved. Small amount of intraventricular clot persists at least on the left. There is mild to moderate chronic microangiopathic white matter change elsewhere. There is no hydrocephalus. There is a small mucus retention cyst in the right maxillary sinus. The orbits are unremarkable. The temporal bones are unremarkable. The calvarium reveals no suspicious lesions. Scalp skin warren remain in place. IMPRESSION: 1. Expected interval evolution of a right posterior temporal/occipital intraparenchymal hematoma status post decompressive craniotomy. 2. Expected evolution of a small amount of subarachnoid and intraventricular clot. Electronically signed by: Renetta Weston MD (02/13/2021 2:36 PM) [id number] DICTATED and SIGNED BY: TERELL WESTON MD DATE: 02/13/21 [id number] Laboratory Tests Test 02/12/21 09:10 02/12/21 12:01 02/12/21 18:01 02/13/21 00:07 O2 Saturation 95 % (92-99) Arterial Blood pH 7.34 (7.35-7.45) Arterial Blood pCO2 at Patient Temp 41 mmHg (35-46) Arterial Blood pO2 at Patient Temp 83 mmHg (65-108) Arterial Blood HCO3 22 mmol/L (21-28) Arterial Blood Base Excess -4 mmol/L (-3-3) FiO2 70 Glucose (Fingerstick) 197 mg/dL (70-99) 212 mg/dL (70-99) 211 mg/dL (70-99) Test 02/13/21 05:00 02/13/21 05:41 White Blood Count 7.8 x10^3/uL (4.0-11.0) Red Blood Count 3.77 x10^6/uL (4.30-5.70) Hemoglobin 11.4 g/dL (13.0-17.5) Hematocrit 34.5 % (39.0-53.0) Mean Corpuscular Volume 91 fL (79-100) Mean Corpuscular Hemoglobin 30 pg (25-35) Mean Corpuscular Hemoglobin Concent 33 g/dL (31-37) Red Cell Distribution Width 13.9 % (11.5-14.5) Platelet Count 213 x10^3/uL (140-400) Sodium Level 144 mmol/L (136-145) Potassium Level 4.7 mmol/L (3.5-5.1) Chloride Level 110 mmol/L (98-107) Carbon Dioxide Level 27 mmol/L (21-32) Anion Gap 7 (6-14) Blood Urea Nitrogen 26 mg/dL (8-26) Creatinine 1.2 mg/dL (0.7-1.3) Estimated GFR (Cockcroft-Gault) 74.7 Glucose Level 227 mg/dL (70-99) Calcium Level 9.2 mg/dL (8.5-10.1) Phosphorus Level 3.7 mg/dL (2.6-4.7) Magnesium Level 2.4 mg/dL (1.8-2.4) Glucose (Fingerstick) 213 mg/dL (70-99) Comment Review of Relevant I have reviewed the following items neela (where applicable) has been applied. Labs Laboratory Tests Test 02/11/21 08:32 02/11/21 15:35 02/11/21 21:30 02/12/21 06:45 O2 Saturation 89 % (92-99) 90 % (92-99) Arterial Blood pH 7.38 (7.35-7.45) 7.32 (7.35-7.45) Arterial Blood pCO2 at Patient Temp 39 mmHg (35-46) 42 mmHg (35-46) Arterial Blood pO2 at Patient Temp 61 mmHg (65-108) 65 mmHg (65-108) Arterial Blood HCO3 22 mmol/L (21-28) 21 mmol/L (21-28) Arterial Blood Base Excess -3 mmol/L (-3-3) -5 mmol/L (-3-3) FiO2 50 100 Lactic Acid Level 0.6 mmol/L (0.4-2.0) White Blood Count 8.6 x10^3/uL (4.0-11.0) Red Blood Count 3.89 x10^6/uL (4.30-5.70) Hemoglobin 11.7 g/dL (13.0-17.5) Hematocrit 35.2 % (39.0-53.0) Mean Corpuscular Volume 91 fL (79-100) Mean Corpuscular Hemoglobin 30 pg (25-35) Mean Corpuscular Hemoglobin Concent 33 g/dL (31-37) Red Cell Distribution Width 13.8 % (11.5-14.5) Platelet Count 192 x10^3/uL (140-400) Neutrophils (%) (Auto) 79 % (31-73) Lymphocytes (%) (Auto) 11 % (24-48) Monocytes (%) (Auto) 9 % (0-9) Eosinophils (%) (Auto) 1 % (0-3) Basophils (%) (Auto) 0 % (0-3) Neutrophils # (Auto) 6.8 x10^3/uL (1.8-7.7) Lymphocytes # (Auto) 0.9 x10^3/uL (1.0-4.8) Monocytes # (Auto) 0.8 x10^3/uL (0.0-1.1) Eosinophils # (Auto) 0.1 x10^3/uL (0.0-0.7) Basophils # (Auto) 0.0 x10^3/uL (0.0-0.2) Sodium Level 142 mmol/L (136-145) Potassium Level 4.4 mmol/L (3.5-5.1) Chloride Level 109 mmol/L (98-107) Carbon Dioxide Level 25 mmol/L (21-32) Anion Gap 8 (6-14) Blood Urea Nitrogen 31 mg/dL (8-26) Creatinine 1.3 mg/dL (0.7-1.3) Estimated GFR (Cockcroft-Gault) 68.1 Glucose Level 191 mg/dL (70-99) Calcium Level 8.7 mg/dL (8.5-10.1) Phosphorus Level 2.6 mg/dL (2.6-4.7) Magnesium Level 2.5 mg/dL (1.8-2.4) Triglycerides Level 369 mg/dL (0-150) Test 02/12/21 09:10 02/12/21 12:01 02/12/21 18:01 02/13/21 00:07 O2 Saturation 95 % (92-99) Arterial Blood pH 7.34 (7.35-7.45) Arterial Blood pCO2 at Patient Temp 41 mmHg (35-46) Arterial Blood pO2 at Patient Temp 83 mmHg (65-108) Arterial Blood HCO3 22 mmol/L (21-28) Arterial Blood Base Excess -4 mmol/L (-3-3) FiO2 70 Glucose (Fingerstick) 197 mg/dL (70-99) 212 mg/dL (70-99) 211 mg/dL (70-99) Test 02/13/21 05:00 02/13/21 05:41 White Blood Count 7.8 x10^3/uL (4.0-11.0) Red Blood Count 3.77 x10^6/uL (4.30-5.70) Hemoglobin 11.4 g/dL (13.0-17.5) Hematocrit 34.5 % (39.0-53.0) Mean Corpuscular Volume 91 fL (79-100) Mean Corpuscular Hemoglobin 30 pg (25-35) Mean Corpuscular Hemoglobin Concent 33 g/dL (31-37) Red Cell Distribution Width 13.9 % (11.5-14.5) Platelet Count 213 x10^3/uL (140-400) Sodium Level 144 mmol/L (136-145) Potassium Level 4.7 mmol/L (3.5-5.1) Chloride Level 110 mmol/L (98-107) Carbon Dioxide Level 27 mmol/L (21-32) Anion Gap 7 (6-14) Blood Urea Nitrogen 26 mg/dL (8-26) Creatinine 1.2 mg/dL (0.7-1.3) Estimated GFR (Cockcroft-Gault) 74.7 Glucose Level 227 mg/dL (70-99) Calcium Level 9.2 mg/dL (8.5-10.1) Phosphorus Level 3.7 mg/dL (2.6-4.7) Magnesium Level 2.4 mg/dL (1.8-2.4) Glucose (Fingerstick) 213 mg/dL (70-99) Laboratory Tests Test 02/12/21 09:10 02/12/21 12:01 02/12/21 18:01 02/13/21 00:07 O2 Saturation 95 % (92-99) Arterial Blood pH 7.34 (7.35-7.45) Arterial Blood pCO2 at Patient Temp 41 mmHg (35-46) Arterial Blood pO2 at Patient Temp 83 mmHg (65-108) Arterial Blood HCO3 22 mmol/L (21-28) Arterial Blood Base Excess -4 mmol/L (-3-3) FiO2 70 Glucose (Fingerstick) 197 mg/dL (70-99) 212 mg/dL (70-99) 211 mg/dL (70-99) Test 02/13/21 05:00 02/13/21 05:41 White Blood Count 7.8 x10^3/uL (4.0-11.0) Red Blood Count 3.77 x10^6/uL (4.30-5.70) Hemoglobin 11.4 g/dL (13.0-17.5) Hematocrit 34.5 % (39.0-53.0) Mean Corpuscular Volume 91 fL (79-100) Mean Corpuscular Hemoglobin 30 pg (25-35) Mean Corpuscular Hemoglobin Concent 33 g/dL (31-37) Red Cell Distribution Width 13.9 % (11.5-14.5) Platelet Count 213 x10^3/uL (140-400) Sodium Level 144 mmol/L (136-145) Potassium Level 4.7 mmol/L (3.5-5.1) Chloride Level 110 mmol/L (98-107) Carbon Dioxide Level 27 mmol/L (21-32) Anion Gap 7 (6-14) Blood Urea Nitrogen 26 mg/dL (8-26) Creatinine 1.2 mg/dL (0.7-1.3) Estimated GFR (Cockcroft-Gault) 74.7 Glucose Level 227 mg/dL (70-99) Calcium Level 9.2 mg/dL (8.5-10.1) Phosphorus Level 3.7 mg/dL (2.6-4.7) Magnesium Level 2.4 mg/dL (1.8-2.4) Glucose (Fingerstick) 213 mg/dL (70-99) Microbiology 02/11/21 Blood Culture - Preliminary, Resulted NO GROWTH AFTER 1 DAY 02/11/21 Gram Stain Evaluation - Final, Resulted 02/11/21 Respiratory Culture - Preliminary, Resulted Medications Current Medications Nicardipine HCl 50 mg/Sodium Chloride 250 ml @ 12.5 mls/hr CONT PRN IV SEE I/O RECORD Last administered on 02/11/21at 11:57; Start 02/09/21 at 06:15 Labetalol HCl (Normodyne Iv Push) 10 mg PRN Q2HR PRN IVP HYPERTENSION Last administered on 02/13/21at 08:25; Start 02/09/21 at 06:15 Lorazepam (Ativan Inj) 2 mg 1X ONCE IVP Last administered on 02/09/21at 10:54; Start 02/09/21 at 10:45; Stop 02/09/21 at 10:46; Status DC Lorazepam (Ativan Inj) 2 mg 1X ONCE IVP Last administered on 02/09/21at 11:00; Start 02/09/21 at 11:00; Stop 02/09/21 at 11:01; Status DC Fentanyl Citrate (Fentanyl 2ml Vial) 25 mcg PRN Q2HR PRN IVP MODERATE TO SEVERE PAIN Last administered on 02/09/21at 13:37; Start 02/09/21 at 13:30 Info (Review Meds) 1 ea PRN 1X PRN MC SEE COMMENTS; Start 02/09/21 at 15:00 Acetaminophen (Tylenol Supp) 650 mg PRN Q6HRS PRN NM FEVER > 100.5'F or 38'C; Start 02/09/21 at 15:00; Stop 02/11/21 at 21:12; Status DC Albuterol Sulfate (Ventolin Neb Soln) 2.5 mg PRN Q4HRS PRN NEB SHORTNESS OF BREATH; Start 02/09/21 at 15:15 Iohexol (Omnipaque 350 Mg/ml) 75 ml 1X ONCE IV Last administered on 02/09/21at 15:52; Start 02/09/21 at 15:30; Stop 02/09/21 at 15:35; Status DC Iohexol (Omnipaque 350 Mg/ml) 100 ml STK-MED ONCE .ROUTE ; Start 02/09/21 at 15:26; Stop 02/09/21 at 15:27; Status DC Info (CONTRAST GIVEN -- Rx MONITORING) 1 each PRN DAILY PRN MC SEE COMMENTS; Start 02/09/21 at 15:45; Stop 02/11/21 at 15:44; Status DC Propofol 100 ml @ As Directed STK-MED ONCE IV ; Start 02/09/21 at 15:51; Stop 02/09/21 at 15:51; Status DC Rocuronium [place] (Zemuron) 50 mg STK-MED ONCE .ROUTE ; Start 02/09/21 at 15:51; Stop 02/09/21 at 15:51; Status DC Lidocaine HCl (Lidocaine HCl 2% Abboject) 100 mg STK-MED ONCE .ROUTE ; Start 02/09/21 at 15:52; Stop 02/09/21 at 15:53; Status DC Propofol 100 ml @ 3.507 mls/ hr CONT PRN IV PER PROTOCOL Last administered on 02/13/21at 05:48; Start 02/09/21 at 16:15 Lidocaine HCl (Lidocaine HCl 2% Abboject) 100 mg 1X ONCE IV Last administered on 02/09/21at 16:17; Start 02/09/21 at 16:15; Stop 02/09/21 at 16:17; Status DC Rocuronium [place] (Zemuron) 50 mg 1X ONCE IV Last administered on 02/09/21at 16:17; Start 02/09/21 at 16:15; Stop 02/09/21 at 16:17; Status DC Rocuronium [place] (Zemuron) 100 mg STK-MED ONCE .ROUTE ; Start 02/09/21 at 16:31; Stop 02/09/21 at 16:32; Status DC Gelatin (Gelfoam Size 100) 1 each STK-MED ONCE .ROUTE Last administered on 02/09/21at 17:49; Start 02/09/21 at 16:33; Stop 02/09/21 at 16:33; Status DC Bupivacaine HCl/ Epinephrine Bitart (Sensorcain-Epi 0.5%-1:[id number] Mpf) 30 ml STK-MED ONCE .ROUTE Last administered on 02/09/21 17:49; Start 02/09/21 at 16:33; Stop 02/09/21 at 16:33; Status DC Cellulose (Surgicel Hemostat 4x8) 1 each STK-MED ONCE .ROUTE Last administered on 02/09/21at 18:38; Start 02/09/21 at 16:33; Stop 02/09/21 at 16:33; Status DC Thrombin 20,000 unit STK-MED ONCE TP Last administered on 02/09/21at 17:49; Start 02/09/21 at 16:33; Stop 02/09/21 at 16:33; Status DC Fentanyl Citrate (Fentanyl 2ml Vial) 75 mcg 1X ONCE IVP Last administered on 02/09/21at 16:45; Start 02/09/21 at 16:45; Stop 02/09/21 at 16:47; Status DC Propofol (Diprivan) 200 mg 1X ONCE IV ; Start 02/09/21 at 17:15; Stop 02/09/21 at 17:16; Status DC Lidocaine HCl (Lidocaine HCl 2% Abboject) 100 mg 1X ONCE IV ; Start 02/09/21 at 17:15; Stop 02/09/21 at 17:16; Status DC Rocuronium [place] (Zemuron) 50 mg 1X ONCE IV ; Start 02/09/21 at 17:15; Stop 02/09/21 at 17:16; Status DC Propofol 100 ml @ 0 mls/hr CONT PRN PRN IV SEDATION; Start 02/09/21 at 17:15; Stop 02/10/21 at 05:14; Status DC Cefazolin Sodium (Ancef) 1 gm STK-MED ONCE IVP ; Start 02/09/21 at 17:28; Stop 02/09/21 at 17:28; Status DC Fentanyl Citrate (Fentanyl 2ml Vial) 100 mcg STK-MED ONCE .ROUTE ; Start 02/09/21 at 17:43; Stop 02/09/21 at 17:43; Status DC Rocuronium [place] (Zemuron) 100 mg STK-MED ONCE .ROUTE ; Start 02/09/21 at 17:58; Stop 02/09/21 at 17:59; Status DC Vecuronium [place] (Norcuron Bolus) 10 mg STK-MED ONCE IV ; Start 02/09/21 at 18:49; Stop 02/09/21 at 18:50; Status DC Sodium Chloride (SODIUM CHLORIDE 20ml) 20 ml STK-MED ONCE IJ ; Start 02/09/21 at 18:50; Stop 02/09/21 at 18:50; Status DC Sevoflurane (Ultane) 90 ml STK-MED ONCE IH ; Start 02/09/21 at 19:20; Stop 02/09/21 at 19:21; Status DC Fentanyl Citrate 30 ml @ 2.5 mls/hr CONT PRN IV SEE PROTOCOL Last administered on 02/09/21at 23:40; Start 02/09/21 at 23:15; Stop 02/10/21 at 04:43; Status DC Fentanyl Citrate 55 ml @ 0 mls/hr CONT PRN IV SEE I/O Last administered on 02/12/21at 08:16; Start 02/10/21 at 05:00 Potassium Chloride/Dextrose/ Sod Cl 1,000 ml @ 80 mls/hr [id number] IV ; Start 02/10/21 at 09:00; Stop 02/10/21 at 13:21; Status DC Pantoprazole Sodium (PROTONIX VIAL for IV PUSH) 40 mg DAILYAC IVP Last administered on 02/13/21at 08:24; Start 02/10/21 at 09:00 Lidocaine HCl (Buffered Lidocaine 1%) 3 ml STK-MED ONCE .ROUTE ; Start 02/10/21 at 13:18; Stop 02/10/21 at 13:18; Status DC Sodium Chloride 1,000 ml @ 80 mls/hr [id number] IV Last administered on 02/12/21at 03:00; Start 02/10/21 at 13:30; Stop 02/12/21 at 15:36; Status DC Lidocaine HCl (Buffered Lidocaine 1%) 6 ml 1X ONCE INJ Last administered on 02/10/21at 13:57; Start 02/10/21 at 13:45; Stop 02/10/21 at 13:46; Status DC Potassium Chloride/Water 100 ml @ 100 mls/hr Q1H IV Last administered on 02/11/21at 10:07; Start 02/11/21 at 08:00; Stop 02/11/21 at 09:59; Status DC Piperacillin Sod/ Tazobactam Sod 3.375 gm/Sodium Chloride 50 ml @ 100 mls/hr Q6HRS IV Last administered on 02/13/21at 05:47; Start 02/11/21 at 09:00 Info (Tpn Per Pharmacy) 1 each PRN DAILY PRN MC SEE COMMENTS Last administered on 02/12/21at 12:16; Start 02/11/21 at 11:15 Sodium Chloride 90 meq/Potassium Chloride 50 meq/ Potassium Phosphate 13.6 mmol/Magnesium Sulfate 10 meq/ Calcium Gluconate 10 meq/ Multivitamins 5 ml/Zinc/Copper/ Manganese/ Selenium 1 ml/ Total Parenteral Nutrition/Amino Acids/Dextrose 1,512 ml @ 63 mls/hr TPN CONT IV Last administered on 02/11/21at 22:32; Start 02/11/21 at 22:00; Stop 02/12/21 at 21:59; Status DC Furosemide (Lasix) 20 mg 1X ONCE IVP Last administered on 02/11/21at 15:11; Start 02/11/21 at 15:30; Stop 02/11/21 at 15:31; Status DC Furosemide (Lasix) 20 mg 1X ONCE IVP Last administered on 02/11/21at 17:00; Start 02/11/21 at 17:00; Stop 02/11/21 at 17:01; Status DC Midazolam HCl 100 ml @ 1 mls/hr CONT PRN IV SEE PROTOCOL Last administered on 02/12/21at 21:53; Start 02/11/21 at 19:30 Acetaminophen (Tylenol Supp) 650 mg PRN Q6HRS PRN NM MILD PAIN / TEMP > 100.3'F; Start 02/11/21 at 21:15 Sodium Chloride 80 meq/Potassium Chloride 50 meq/ Potassium Phosphate 13.6 mmol /Magnesium Sulfate 6 meq/ Calcium Gluconate 10 meq/ Multivitamins 5 ml/Zinc/Copper/ Manganese/ Selenium 1 ml/ Total Parenteral Nutrition/Amino Acids/Dextrose 1,512 ml @ 63 mls/hr TPN CONT IV Last administered on 02/12/21at 22:09; Start 02/12/21 at 22:00; Stop 02/13/21 at 21:59 Furosemide (Lasix) 40 mg 1X ONCE IVP Last administered on 02/12/21at 12:44; Start 02/12/21 at 12:30; Stop 02/12/21 at 12:31; Status DC Insulin Human Lispro (HumaLOG) 0-5 UNITS Q6HRS SQ Last administered on 02/13/21at 05:51; Start 02/12/21 at 12:00 Dextrose (Dextrose 50%-Water Syringe) 12.5 gm PRN Q15MIN PRN IV SEE COMMENTS; Start 02/12/21 at 12:15 Vitals/I & O Vital Sign - Last 24 Hours 02/12/21 02/12/21 02/12/21 02/12/21 08:50 09:00 09:07 10:00 Pulse 74 73 Resp 20 20 18 B/P (MAP) 132/66 (88) 142/73 (96) Pulse Ox 97 97 97 96 O2 Delivery Ventilator Ventilator Ventilator Ventilator 02/12/21 02/12/21 02/12/21 02/12/21 10:19 11:00 11:59 12:00 Temp 97.9 97.9 Pulse 74 76 Resp 18 20 B/P (MAP) 137/64 (88) 155/70 (98) Pulse Ox 97 96 95 97 O2 Delivery Ventilator Ventilator Ventilator Ventilator 02/12/21 02/12/21 02/12/21 02/12/21 12:00 12:00 13:00 13:33 Pulse 77 Resp 18 B/P (MAP) 140/69 (92) Pulse Ox 96 97 O2 Delivery Mechanical Ventilator Ventilator Ventilator 02/12/21 02/12/21 02/12/21 02/12/21 14:00 15:00 15:40 15:56 Pulse 72 78 Resp 16 16 B/P (MAP) 156/72 (100) 113/63 (80) Pulse Ox 96 97 97 O2 Delivery Ventilator Ventilator Mechanical Ventilator Ventilator 02/12/21 02/12/21 02/12/21 02/12/21 16:00 16:00 17:00 18:00 Temp 98.4 98.4 Pulse 77 78 79 Resp 20 20 20 B/P (MAP) 179/82 (114) 138/71 (93) 161/77 (105) Pulse Ox 97 98 96 O2 Delivery Ventilator Ventilator Ventilator 02/12/21 02/12/21 02/12/21 02/12/21 18:10 19:00 20:00 20:00 Temp 99.8 99.8 Pulse 78 79 Resp 19 18 B/P (MAP) 153/74 (100) 157/74 (101) Pulse Ox 97 97 97 O2 Delivery Ventilator Ventilator Ventilator Mechanical Ventilator 02/12/21 02/12/21 02/12/21 02/12/21 20:00 20:54 21:00 22:00 Pulse 76 78 Resp 22 21 B/P (MAP) 147/73 (97) 156/75 (102) Pulse Ox 97 96 95 O2 Delivery Ventilator Ventilator Ventilator 02/12/21 02/12/21 02/12/21 02/12/21 23:00 23:26 23:50 23:59 Pulse 71 78 Resp 18 B/P (MAP) 169/80 (109) 156/75 Pulse Ox 98 97 O2 Delivery Ventilator Ventilator Mechanical Ventilator 02/13/21 02/13/21 02/13/21 02/13/21 00:00 00:01 00:30 01:00 Temp 99.4 99.4 Pulse 70 78 Resp 19 16 B/P (MAP) 182/80 (114) 131/66 (87) Pulse Ox 98 98 98 O2 Delivery Ventilator Ventilator Ventilator 02/13/21 02/13/21 02/13/21 02/13/21 02:00 02:17 03:00 04:00 Pulse 78 78 Resp 19 16 B/P (MAP) 147/71 (96) 147/71 (96) Pulse Ox 99 98 99 O2 Delivery Ventilator Ventilator Ventilator 02/13/21 02/13/21 02/13/21 02/13/21 04:00 04:00 04:18 04:49 Temp 98.7 98.7 Pulse 78 78 Resp 19 B/P (MAP) 198/58 (104) 198/88 Pulse Ox 97 97 O2 Delivery Ventilator Mechanical Ventilator Ventilator 02/13/21 02/13/21 02/13/21 05:00 06:00 08:25 Pulse 65 65 65 Resp 19 19 B/P (MAP) 154/72 (99) 149/73 (98) 172/78 Pulse Ox 99 99 O2 Delivery Ventilator Ventilator Intake and Output 02/12/21 02/12/21 02/13/21 15:00 23:00 07:00 Intake Total 140 ml 1041.57 ml 1489.9 ml Output Total 1500 ml 1175 ml 745 ml Balance -1360 ml -133.43 ml 744.9 ml Justicifation of Admission Dx: Justifications for Admission: Justification of Admission Dx: Yes Acute Hemorrhagic Stroke: Acute Hemorrhagic Stroke LESLI ALCOCER MD Feb 13, 2021 08:31
--- NOTE | 2021-02-13 08:40 | RAD ---
EXAM: Chest, single view. HISTORY: Ventilatory support. COMPARISON: 02/12/2021 FINDINGS: A frontal view of the chest obtained. There is an endotracheal tube within the mid trachea. There is a nasogastric tube extending inferior to the [id number] within the stomach. There is a r ight central venous catheter with the tip overlying the expected location of the superior vena cava. There is stable lucency within the superior right thorax due to severe bullous emphysema. There is st able right perihilar linear atelectasis or infiltrate superimposed on diffuse increased interstitial opacity and small pleural effusions. The heart is normal in size. IMPRESSION: 1. Stable support lines and tubes. 2. Severe right upper lobe predominant bullous emphysema. 3. Stable right perihilar linear atelectasis or infiltrate superimposed on diffuse interstitial promi nence and small pleural effusions. Electronically signed by: Izzy Braswell MD (02/13/2021 8:38 AM) [id number]
[2021-02-13 08:43] LABS: BASE EXCESS ABG -3 mmol/L (-3-3); HCO3 ABG 23 mmol/L (21-28); PCO2 ABG 43 mmHg (35-46); PO2 ABG 92 mmHg (65-108); SAT O2 ABG 96 % (92-99)
--- NOTE | 2021-02-13 08:44 | PDOC ---
Infectious Disease Note Subjective: Subjective pt is sedated on vent Fio2 70% Vital Signs: Vital Signs Vital Signs Date Time Temp Pulse Resp B/P (MAP) Pulse Ox O2 Delivery O2 Flow Rate FiO2 02/13/21 08:25 65 172/78 02/13/21 08:00 98.8 17 98 Ventilator 98.8 Physical Exam: PHYSICAL EXAM GENERAL: Sedated, orally intubated gentleman, not in distress. HEENT: Both pupils are round and reacting. No conjunctival lesion noticed. ETT/OGT + NECK: Rt IJ clean LUNGS: Clear. HEART: S1, S2 regular. No gallop or murmur. ABDOMEN: Soft, nontender, no organomegaly. EXTREMITIES: No edema, cyanosis. SKIN:no gen rash NEUROLOGIC: unable to assess Medications: Inpatient Meds: Medications reviewed. Labs: Lab Laboratory Tests Test 02/12/21 09:10 02/12/21 12:01 02/12/21 18:01 02/13/21 00:07 O2 Saturation 95 % (92-99) Arterial Blood pH 7.34 (7.35-7.45) Arterial Blood pCO2 at Patient Temp 41 mmHg (35-46) Arterial Blood pO2 at Patient Temp 83 mmHg (65-108) Arterial Blood HCO3 22 mmol/L (21-28) Arterial Blood Base Excess -4 mmol/L (-3-3) FiO2 70 Glucose (Fingerstick) 197 mg/dL (70-99) 212 mg/dL (70-99) 211 mg/dL (70-99) Test 02/13/21 05:00 02/13/21 05:41 White Blood Count 7.8 x10^3/uL (4.0-11.0) Red Blood Count 3.77 x10^6/uL (4.30-5.70) Hemoglobin 11.4 g/dL (13.0-17.5) Hematocrit 34.5 % (39.0-53.0) Mean Corpuscular Volume 91 fL (79-100) Mean Corpuscular Hemoglobin 30 pg (25-35) Mean Corpuscular Hemoglobin Concent 33 g/dL (31-37) Red Cell Distribution Width 13.9 % (11.5-14.5) Platelet Count 213 x10^3/uL (140-400) Sodium Level 144 mmol/L (136-145) Potassium Level 4.7 mmol/L (3.5-5.1) Chloride Level 110 mmol/L (98-107) Carbon Dioxide Level 27 mmol/L (21-32) Anion Gap 7 (6-14) Blood Urea Nitrogen 26 mg/dL (8-26) Creatinine 1.2 mg/dL (0.7-1.3) Estimated GFR (Cockcroft-Gault) 74.7 Glucose Level 227 mg/dL (70-99) Calcium Level 9.2 mg/dL (8.5-10.1) Phosphorus Level 3.7 mg/dL (2.6-4.7) Magnesium Level 2.4 mg/dL (1.8-2.4) Glucose (Fingerstick) 213 mg/dL (70-99) Objective: Assessment: 1. Fever.Improving 2. Suspected aspiration. 3. Encephalopathy. 4. Intracranial bleed with mass effect, status post craniotomy and hematoma evacuation. 5. Respiratory failure. 6. Hypertension. 7. Chronic obstructive pulmonary disease. 8. MARVIN improved Plan: Plan of Care cont Zosyn Monitor labs and cults awaiting f/u CT head cont supportive care D/W RAMU ANDERSON MD Feb 13, 2021 08:44
[2021-02-13 08:45] LABS: FIO2 ABG 50
--- NOTE | 2021-02-13 09:22 | PDOC ---
PROGRESS NOTES Date of Service DATE: 02/13/21 TIME: 09:20 Assessment Large right temporo-occipital intraparenchymal bleed, most likely lobar hemorrhage from hypertension, consider venous sinus thrombosis, less likely in this location, aneurysmal bleed, head trauma (also unlikely). Had craniotomy 02/09 evening Suspect of aspiration, respiratory failure, hypertension, chronic obstructive pulmonary disease, improving acute kidney injury Plan As per neurosurgery Head CT repeating today Try to wean sedation Subjective None Objective Vital Signs Date Time Temp Pulse Resp B/P (MAP) Pulse Ox O2 Delivery O2 Flow Rate FiO2 02/13/21 08:25 65 172/78 02/13/21 08:00 98.8 17 98 Ventilator 98.8 Intake and Output 02/13/21 07:00 Intake Total 2671.47 ml Output Total 3420 ml Balance -748.53 ml Intake IV Total 2426.47 ml Other 245 ml Output Urine Total 3420 ml PHYSICAL EXAM Sedated on vent, not responsive Pupils small, minimally reactive No spontaneous eye movements CN: no focal findings. Muscle tone: normal. Muscle strength: no response to pain DTR: 0+ Plantar reflex: silent Gait: not examined Sensory exam: not cooperative. Cerebellar: not cooperative Review of Relevant I have reviewed the following items neela (where applicable) has been applied. Labs Laboratory Tests Test 02/11/21 15:35 02/11/21 21:30 02/12/21 06:45 02/12/21 09:10 O2 Saturation 90 % (92-99) 95 % (92-99) Arterial Blood pH 7.32 (7.35-7.45) 7.34 (7.35-7.45) Arterial Blood pCO2 at Patient Temp 42 mmHg (35-46) 41 mmHg (35-46) Arterial Blood pO2 at Patient Temp 65 mmHg (65-108) 83 mmHg (65-108) Arterial Blood HCO3 21 mmol/L (21-28) 22 mmol/L (21-28) Arterial Blood Base Excess -5 mmol/L (-3-3) -4 mmol/L (-3-3) FiO2 100 70 Lactic Acid Level 0.6 mmol/L (0.4-2.0) White Blood Count 8.6 x10^3/uL (4.0-11.0) Red Blood Count 3.89 x10^6/uL (4.30-5.70) Hemoglobin 11.7 g/dL (13.0-17.5) Hematocrit 35.2 % (39.0-53.0) Mean Corpuscular Volume 91 fL (79-100) Mean Corpuscular Hemoglobin 30 pg (25-35) Mean Corpuscular Hemoglobin Concent 33 g/dL (31-37) Red Cell Distribution Width 13.8 % (11.5-14.5) Platelet Count 192 x10^3/uL (140-400) Neutrophils (%) (Auto) 79 % (31-73) Lymphocytes (%) (Auto) 11 % (24-48) Monocytes (%) (Auto) 9 % (0-9) Eosinophils (%) (Auto) 1 % (0-3) Basophils (%) (Auto) 0 % (0-3) Neutrophils # (Auto) 6.8 x10^3/uL (1.8-7.7) Lymphocytes # (Auto) 0.9 x10^3/uL (1.0-4.8) Monocytes # (Auto) 0.8 x10^3/uL (0.0-1.1) Eosinophils # (Auto) 0.1 x10^3/uL (0.0-0.7) Basophils # (Auto) 0.0 x10^3/uL (0.0-0.2) Sodium Level 142 mmol/L (136-145) Potassium Level 4.4 mmol/L (3.5-5.1) Chloride Level 109 mmol/L (98-107) Carbon Dioxide Level 25 mmol/L (21-32) Anion Gap 8 (6-14) Blood Urea Nitrogen 31 mg/dL (8-26) Creatinine 1.3 mg/dL (0.7-1.3) Estimated GFR (Cockcroft-Gault) 68.1 Glucose Level 191 mg/dL (70-99) Calcium Level 8.7 mg/dL (8.5-10.1) Phosphorus Level 2.6 mg/dL (2.6-4.7) Magnesium Level 2.5 mg/dL (1.8-2.4) Triglycerides Level 369 mg/dL (0-150) Test 02/12/21 12:01 02/12/21 18:01 02/13/21 00:07 02/13/21 05:00 Glucose (Fingerstick) 197 mg/dL (70-99) 212 mg/dL (70-99) 211 mg/dL (70-99) White Blood Count 7.8 x10^3/uL (4.0-11.0) Red Blood Count 3.77 x10^6/uL (4.30-5.70) Hemoglobin 11.4 g/dL (13.0-17.5) Hematocrit 34.5 % (39.0-53.0) Mean Corpuscular Volume 91 fL (79-100) Mean Corpuscular Hemoglobin 30 pg (25-35) Mean Corpuscular Hemoglobin Concent 33 g/dL (31-37) Red Cell Distribution Width 13.9 % (11.5-14.5) Platelet Count 213 x10^3/uL (140-400) Sodium Level 144 mmol/L (136-145) Potassium Level 4.7 mmol/L (3.5-5.1) Chloride Level 110 mmol/L (98-107) Carbon Dioxide Level 27 mmol/L (21-32) Anion Gap 7 (6-14) Blood Urea Nitrogen 26 mg/dL (8-26) Creatinine 1.2 mg/dL (0.7-1.3) Estimated GFR (Cockcroft-Gault) 74.7 Glucose Level 227 mg/dL (70-99) Calcium Level 9.2 mg/dL (8.5-10.1) Phosphorus Level 3.7 mg/dL (2.6-4.7) Magnesium Level 2.4 mg/dL (1.8-2.4) Test 02/13/21 05:41 02/13/21 08:00 Glucose (Fingerstick) 213 mg/dL (70-99) O2 Saturation 96 % (92-99) Arterial Blood pH 7.34 (7.35-7.45) Arterial Blood pCO2 at Patient Temp 43 mmHg (35-46) Arterial Blood pO2 at Patient Temp 92 mmHg (65-108) Arterial Blood HCO3 23 mmol/L (21-28) Arterial Blood Base Excess -3 mmol/L (-3-3) FiO2 50 Laboratory Tests Test 02/12/21 12:01 02/12/21 18:01 02/13/21 00:07 02/13/21 05:00 Glucose (Fingerstick) 197 mg/dL (70-99) 212 mg/dL (70-99) 211 mg/dL (70-99) White Blood Count 7.8 x10^3/uL (4.0-11.0) Red Blood Count 3.77 x10^6/uL (4.30-5.70) Hemoglobin 11.4 g/dL (13.0-17.5) Hematocrit 34.5 % (39.0-53.0) Mean Corpuscular Volume 91 fL (79-100) Mean Corpuscular Hemoglobin 30 pg (25-35) Mean Corpuscular Hemoglobin Concent 33 g/dL (31-37) Red Cell Distribution Width 13.9 % (11.5-14.5) Platelet Count 213 x10^3/uL (140-400) Sodium Level 144 mmol/L (136-145) Potassium Level 4.7 mmol/L (3.5-5.1) Chloride Level 110 mmol/L (98-107) Carbon Dioxide Level 27 mmol/L (21-32) Anion Gap 7 (6-14) Blood Urea Nitrogen 26 mg/dL (8-26) Creatinine 1.2 mg/dL (0.7-1.3) Estimated GFR (Cockcroft-Gault) 74.7 Glucose Level 227 mg/dL (70-99) Calcium Level 9.2 mg/dL (8.5-10.1) Phosphorus Level 3.7 mg/dL (2.6-4.7) Magnesium Level 2.4 mg/dL (1.8-2.4) Test 02/13/21 05:41 02/13/21 08:00 Glucose (Fingerstick) 213 mg/dL (70-99) O2 Saturation 96 % (92-99) Arterial Blood pH 7.34 (7.35-7.45) Arterial Blood pCO2 at Patient Temp 43 mmHg (35-46) Arterial Blood pO2 at Patient Temp 92 mmHg (65-108) Arterial Blood HCO3 23 mmol/L (21-28) Arterial Blood Base Excess -3 mmol/L (-3-3) FiO2 50 Microbiology 02/11/21 Blood Culture - Preliminary, Resulted NO GROWTH AFTER 1 DAY 02/11/21 Gram Stain Evaluation - Final, Complete 02/11/21 Respiratory Culture - Final, Complete Medications Current Medications Nicardipine HCl 50 mg/Sodium Chloride 250 ml @ 12.5 mls/hr CONT PRN IV SEE I/O RECORD Last administered on 02/11/21at 11:57; Start 02/09/21 at 06:15 Labetalol HCl (Normodyne Iv Push) 10 mg PRN Q2HR PRN IVP HYPERTENSION Last admi nistered on 02/13/21at 08:25; Start 02/09/21 at 06:15 Lorazepam (Ativan Inj) 2 mg 1X ONCE IVP Last administered on 02/09/21at 10:54; Start 02/09/21 at 10:45; Stop 02/09/21 at 10:46; Status DC Lorazepam (Ativan Inj) 2 mg 1X ONCE IVP Last administered on 02/09/21at 11:00; Start 02/09/21 at 11:00; Stop 02/09/21 at 11:01; Status DC Fentanyl Citrate (Fentanyl 2ml Vial) 25 mcg PRN Q2HR PRN IVP MODERATE TO SEVERE PAIN Last administered on 02/09/21at 13:37; Start 02/09/21 at 13:30 Info (Review Meds) 1 ea PRN 1X PRN MC SEE COMMENTS; Start 02/09/21 at 15:00 Acetaminophen (Tylenol Supp) 650 mg PRN Q6HRS PRN MA FEVER > 100.5'F or 38'C; Start 02/09/21 at 15:00; Stop 02/11/21 at 21:12; Status DC Albuterol Sulfate (Ventolin Neb Soln) 2.5 mg PRN Q4HRS PRN NEB SHORTNESS OF BREATH; Start 02/09/21 at 15:15 Iohexol (Omnipaque 350 Mg/ml) 75 ml 1X ONCE IV Last administered on 02/09/21at 15:52; Start 02/09/21 at 15:30; Stop 02/09/21 at 15:35; Status DC Iohexol (Omnipaque 350 Mg/ml) 100 ml STK-MED ONCE .ROUTE ; Start 02/09/21 at 15:26; Stop 02/09/21 at 15:27; Status DC Info (CONTRAST GIVEN -- Rx MONITORING) 1 each PRN DAILY PRN MC SEE COMMENTS; Start 02/09/21 at 15:45; Stop 02/11/21 at 15:44; Status DC Propofol 100 ml @ As Directed STK-MED ONCE IV ; Start 02/09/21 at 15:51; Stop 02/09/21 at 15:51; Status DC Rocuronium [place] (Zemuron) 50 mg STK-MED ONCE .ROUTE ; Start 02/09/21 at 15:51; Stop 02/09/21 at 15:51; Status DC Lidocaine HCl (Lidocaine HCl 2% Abboject) 100 mg STK-MED ONCE .ROUTE ; Start 02/09/21 at 15:52; Stop 02/09/21 at 15:53; Status DC Propofol 100 ml @ 3.507 mls/ hr CONT PRN IV PER PROTOCOL Last administered on 02/13/21at 05:48; Start 02/09/21 at 16:15 Lidocaine HCl (Lidocaine HCl 2% Abboject) 100 mg 1X ONCE IV Last administered on 02/09/21at 16:17; Start 02/09/21 at 16:15; Stop 02/09/21 at 16:17; Status DC Rocuronium [place] (Zemuron) 50 mg 1X ONCE IV Last administered on 02/09/21at 16:17; Start 02/09/21 at 16:15; Stop 02/09/21 at 16:17; Status DC Rocuronium [place] (Zemuron) 100 mg STK-MED ONCE .ROUTE ; Start 02/09/21 at 16:31; Stop 02/09/21 at 16:32; Status DC Gelatin (Gelfoam Size 100) 1 each STK-MED ONCE .ROUTE Last administered on 02/09/21at 17:49; Start 02/09/21 at 16:33; Stop 02/09/21 at 16:33; Status DC Bupivacaine HCl/ Epinephrine Bitart (Sensorcain-Epi 0.5%-1:968130 Mpf) 30 ml STK-MED ONCE .ROUTE Last administered on 02/09/21at 17:49; Start 02/09/21 at 16:33; Stop 02/09/21 at 16:33; Status DC Cellulose (Surgicel Hemostat 4x8) 1 each STK-MED ONCE .ROUTE Last administered on 02/09/21at 18:38; Start 02/09/21 at 16:33; Stop 02/09/21 at 16:33; Status DC Thrombin 20,000 unit STK-MED ONCE TP Last administered on 02/09/21at 17:49; Start 02/09/21 at 16:33; Stop 02/09/21 at 16:33; Status DC Fentanyl Citrate (Fentanyl 2ml Vial) 75 mcg 1X ONCE IVP Last administered on 02/09/21at 16:45; Start 02/09/21 at 16:45; Stop 02/09/21 at 16:47; Status DC Propofol (Diprivan) 200 mg 1X ONCE IV ; Start 02/09/21 at 17:15; Stop 02/09/21 at 17:16; Status DC Lidocaine HCl (Lidocaine HCl 2% Abboject) 100 mg 1X ONCE IV ; Start 02/09/21 at 17:15; Stop 02/09/21 at 17:16; Status DC Rocuronium [place] (Zemuron) 50 mg 1X ONCE IV ; Start 02/09/21 at 17:15; Stop 02/09/21 at 17:16; Status DC Propofol 100 ml @ 0 mls/hr CONT PRN PRN IV SEDATION; Start 02/09/21 at 17:15; Stop 02/10/21 at 05:14; Status DC Cefazolin Sodium (Ancef) 1 gm STK-MED ONCE IVP ; Start 02/09/21 at 17:28; Stop 02/09/21 at 17:28; Status DC Fentanyl Citrate (Fentanyl 2ml Vial) 100 mcg STK-MED ONCE .ROUTE ; Start 02/09/21 at 17:43; Stop 02/09/21 at 17:43; Status DC Rocuronium [place] (Zemuron) 100 mg STK-MED ONCE .ROUTE ; Start 02/09/21 at 17:58; Stop 02/09/21 at 17:59; Status DC Vecuronium [place] (Norcuron Bolus) 10 mg STK-MED ONCE IV ; Start 02/09/21 at 18:49; Stop 02/09/21 at 18:50; Status DC Sodium Chloride (SODIUM CHLORIDE 20ml) 20 ml STK-MED ONCE IJ ; Start 02/09/21 at 18:50; Stop 02/09/21 at 18:50; Status DC Sevoflurane (Ultane) 90 ml STK-MED ONCE IH ; Start 02/09/21 at 19:20; Stop at 19:21; Status DC Fentanyl Citrate 30 ml @ 2.5 mls/hr CONT PRN IV SEE PROTOCOL Last administered on 02/09/21at 23:40; Start 02/09/21 at 23:15; Stop 02/10/21 at 04:43; Status DC Fentanyl Citrate 55 ml @ 0 mls/hr CONT PRN IV SEE I/O Last administered on 02/12/21at 08:16; Start 02/10/21 at 05:00 Potassium Chloride/Dextrose/ Sod Cl 1,000 ml @ 80 mls/hr [id number] IV ; Start 02/10/21 at 09:00; Stop 02/10/21 at 13:21; Status DC Pantoprazole Sodium (PROTONIX VIAL for IV PUSH) 40 mg DAILYAC IVP Last administered on 02/13/21at 08:24; Start 02/10/21 at 09:00 Lidocaine HCl (Buffered Lidocaine 1%) 3 ml STK-MED ONCE .ROUTE ; Start 02/10/21 at 13:18; Stop 02/10/21 at 13:18; Status DC Sodium Chloride 1,000 ml @ 80 mls/hr [id number] IV Last administered on 02/12/21at 03:00; Start 02/10/21 at 13:30; Stop 02/12/21 at 15:36; Status DC Lidocaine HCl (Buffered Lidocaine 1%) 6 ml 1X ONCE INJ Last administered on 02/10/21at 13:57; Start 02/10/21 at 13:45; Stop 02/10/21 at 13:46; Status DC Potassium Chloride/Water 100 ml @ 100 mls/hr Q1H IV Last administered on 02/11/21at 10:07; Start 02/11/21 at 08:00; Stop 02/11/21 at 09:59; Status DC Piperacillin Sod/ Tazobactam Sod 3.375 gm/Sodium Chloride 50 ml @ 100 mls/hr Q6HRS IV Last administered on 02/13/21at 05:47; Start 02/11/21 at 09:00 Info (Tpn Per Pharmacy) 1 each PRN DAILY PRN MC SEE COMMENTS Last administered on 02/12/21at 12:16; Start 02/11/21 at 11:15 Sodium Chloride 90 meq/Potassium Chloride 50 meq/ Potassium Phosphate 13.6 mmol/Magnesium Sulfate 10 meq/ Calcium Gluconate 10 meq/ Multivitamins 5 ml/Zinc/Copper/ Manganese/ Selenium 1 ml/ Total Parenteral Nutrition/Amino Acids/Dextrose 1,512 ml @ 63 mls/hr TPN CONT IV Last administered on 02/11/21at 22:32; Start 02/11/21 at 22:00; Stop 02/12/21 at 21:59; Status DC Furosemide (Lasix) 20 mg 1X ONCE IVP Last administered on 02/11/21at 15:11; Start 02/11/21 at 15:30; Stop 02/11/21 at 15:31; Status DC Furosemide (Lasix) 20 mg 1X ONCE IVP Last administered on 02/11/21at 17:00; Start 02/11/21 at 17:00; Stop 02/11/21 at 17:01; Status DC Midazolam HCl 100 ml @ 1 mls/hr CONT PRN IV SEE PROTOCOL Last administered on 02/12/21at 21:53; Start 02/11/21 at 19:30 Acetaminophen (Tylenol Supp) 650 mg PRN Q6HRS PRN MA MILD PAIN / TEMP > 100.3'F; Start 02/11/21 at 21:15 Sodium Chloride 80 meq/Potassium Chloride 50 meq/ Potassium Phosphate 13.6 mmol/Magnesium Sulfate 6 meq/ Calcium Gluconate 10 meq/ Multivitamins 5 ml/Zinc /Copper/ Manganese/ Selenium 1 ml/ Total Parenteral Nutrition/Amino Acids/Dextrose 1,512 ml @ 63 mls/hr TPN CONT IV Last administered on 02/12/21at 22:09; Start 02/12/21 at 22:00; Stop 02/13/21 at 21:59 Furosemide (Lasix) 40 mg 1X ONCE IVP Last administered on 02/12/21at 12:44; Start 02/12/21 at 12:30; Stop 02/12/21 at 12:31; Status DC Insulin Human Lispro (HumaLOG) 0-5 UNITS Q6HRS SQ Last administered on 02/13/21at 05:51; Start 02/12/21 at 12:00 Dextrose (Dextrose 50%-Water Syringe) 12.5 gm PRN Q15MIN PRN IV SEE COMMENTS; Start 02/12/21 at 12:15 Vitals/I & O Vital Sign - Last 24 Hours 02/12/21 02/12/21 02/12/21 02/12/21 10:00 10:19 11:00 11:59 Pulse 73 74 Resp 18 18 B/P (MAP) 142/73 (96) 137/64 (88) Pulse Ox 96 97 96 95 O2 Delivery Ventilator Ventilator Ventilator Ventilator 02/12/21 02/12/21 02/12/21 02/12/21 12:00 12:00 12:00 13:00 Temp 97.9 97.9 Pulse 76 77 Resp 20 18 B/P (MAP) 155/70 (98) 140/69 (92) Pulse Ox 97 96 O2 Delivery Ventilator Mechanical Ventilator Ventilator 02/12/21 02/12/21 02/12/21 02/12/21 13:33 14:00 15:00 15:40 Pulse 72 78 Resp 16 16 B/P (MAP) 156/72 (100) 113/63 (80) Pulse Ox 97 96 97 O2 Delivery Ventilator Ventilator Ventilator Mechanical Ventilator 02/12/21 02/12/21 02/12/21 02/12/21 15:56 16:00 16:00 17:00 Temp 98.4 98.4 Pulse 77 78 Resp 20 20 B/P (MAP) 179/82 (114) 138/71 (93) Pulse Ox 97 97 98 O2 Delivery Ventilator Ventilator Ventilator 02/12/21 02/12/21 02/12/21 02/12/21 18:00 18:10 19:00 20:00 Temp 99.8 99.8 Pulse 79 78 79 Resp 20 19 18 B/P (MAP) 161/77 (105) 153/74 (100) 157/74 (101) Pulse Ox 96 97 97 97 O2 Delivery Ventilator Ventilator Ventilator Ventilator 02/12/21 02/12/21 02/12/21 02/12/21 20:00 20:00 20:54 21:00 Pulse 76 Resp 22 B/P (MAP) 147/73 (97) Pulse Ox 97 96 O2 Delivery Mechanical Ventilator Ventilator Ventilator 02/12/21 02/12/21 02/12/21 02/12/21 22:00 23:00 23:26 23:50 Pulse 78 71 78 Resp 21 18 B/P (MAP) 156/75 (102) 169/80 (109) 156/75 Pulse Ox 95 98 97 O2 Delivery Ventilator Ventilator Ventilator 02/12/21 02/13/21 02/13/21 02/13/21 23:59 00:00 00:01 00:30 Temp 99.4 99.4 Pulse 70 Resp 19 B/P (MAP) 182/80 (114) Pulse Ox 98 98 O2 Delivery Mechanical Ventilator Ventilator Ventilator 02/13/21 02/13/21 02/13/21 02/13/21 01:00 02:00 02:17 03:00 Pulse 78 78 78 Resp 16 19 16 B/P (MAP) 131/66 (87) 147/71 (96) 147/71 (96) Pulse Ox 98 99 98 99 O2 Delivery Ventilator Ventilator Ventilator Ventilator 02/13/21 02/13/21 02/13/21 02/13/21 04:00 04:00 04:00 04:18 Temp 98.7 98.7 Pulse 78 78 Resp 19 B/P (MAP) 198/58 (104) 198/88 Pulse Ox 97 O2 Delivery Ventilator Mechanical Ventilator 02/13/21 02/13/21 02/13/21 02/13/21 04:49 05:00 06:00 07:00 Pulse 65 65 65 Resp 19 19 16 B/P (MAP) 154/72 (99) 149/73 (98) 148/74 (98) Pulse Ox 97 99 99 99 O2 Delivery Ventilator Ventilator Ventilator Ventilator 02/13/21 02/13/21 02/13/21 08:00 08:00 08:25 Temp 98.8 98.8 Pulse 65 65 Resp 17 B/P (MAP) 178/79 (112) 172/78 Pulse Ox 99 98 O2 Delivery Ventilator Ventilator Intake and Output 02/12/21 02/12/21 02/13/21 15:00 23:00 07:00 Intake Total 140 ml 1041.57 ml 1489.9 ml Output Total 1500 ml 1175 ml 745 ml Balance -1360 ml -133.43 ml 744.9 ml Justicifation of Admission Dx: Justifications for Admission: Justification of Admission Dx: Yes Acute Hemorrhagic Stroke: Acute Hemorrhagic Stroke EITAN LORENZO MD Feb 13, 2021 09:22
--- NOTE | 2021-02-13 09:33 | PDOC ---
PULMONARY PROGRESS NOTES DATE: 02/13/21 TIME: 09:33 Subjective Patient sedated, currently on assist control ventilation. Scheduled to undergo repeat CT head Vitals Vital Signs Date Time Temp Pulse Resp B/P (MAP) Pulse Ox O2 Delivery O2 Flow Rate FiO2 02/13/21 08:25 65 172/78 02/13/21 08:00 98.8 17 98 Ventilator 98.8 Comments ros unable to obtain sedated on vent Lungs: Crackles Cardiovascular: S1, S2 Abdomen: Soft, Non-tender Extremities: No Edema Skin: Warm Labs Laboratory Tests Test 02/11/21 15:35 02/11/21 21:30 02/12/21 06:45 02/12/21 09:10 O2 Saturation 90 % (92-99) 95 % (92-99) Arterial Blood pH 7.32 (7.35-7.45) 7.34 (7.35-7.45) Arterial Blood pCO2 at Patient Temp 42 mmHg (35-46) 41 mmHg (35-46) Arterial Blood pO2 at Patient Temp 65 mmHg (65-108) 83 mmHg (65-108) Arterial Blood HCO3 21 mmol/L (21-28) 22 mmol/L (21-28) Arterial Blood Base Excess -5 mmol/L (-3-3) -4 mmol/L (-3-3) FiO2 100 70 Lactic Acid Level 0.6 mmol/L (0.4-2.0) White Blood Count 8.6 x10^3/uL (4.0-11.0) Red Blood Count 3.89 x10^6/uL (4.30-5.70) Hemoglobin 11.7 g/dL (13.0-17.5) Hematocrit 35.2 % (39.0-53.0) Mean Corpuscular Volume 91 fL (79-100) Mean Corpuscular Hemoglobin 30 pg (25-35) Mean Corpuscular Hemoglobin Concent 33 g/dL (31-37) Red Cell Distribution Width 13.8 % (11.5-14.5) Platelet Count 192 x10^3/uL (140-400) Neutrophils (%) (Auto) 79 % (31-73) Lymphocytes (%) (Auto) 11 % (24-48) Monocytes (%) (Auto) 9 % (0-9) Eosinophils (%) (Auto) 1 % (0-3) Basophils (%) (Auto) 0 % (0-3) Neutrophils # (Auto) 6.8 x10^3/uL (1.8-7.7) Lymphocytes # (Auto) 0.9 x10^3/uL (1.0-4.8) Monocytes # (Auto) 0.8 x10^3/uL (0.0-1.1) Eosinophils # (Auto) 0.1 x10^3/uL (0.0-0.7) Basophils # (Auto) 0.0 x10^3/uL (0.0-0.2) Sodium Level 142 mmol/L (136-145) Potassium Level 4.4 mmol/L (3.5-5.1) Chloride Level 109 mmol/L (98-107) Carbon Dioxide Level 25 mmol/L (21-32) Anion Gap 8 (6-14) Blood Urea Nitrogen 31 mg/dL (8-26) Creatinine 1.3 mg/dL (0.7-1.3) Estimated GFR (Cockcroft-Gault) 68.1 Glucose Level 191 mg/dL (70-99) Calcium Level 8.7 mg/dL (8.5-10.1) Phosphorus Level 2.6 mg/dL (2.6-4.7) Magnesium Level 2.5 mg/dL (1.8-2.4) Triglycerides Level 369 mg/dL (0-150) Test 02/12/21 12:01 02/12/21 18:01 02/13/21 00:07 02/13/21 05:00 Glucose (Fingerstick) 197 mg/dL (70-99) 212 mg/dL (70-99) 211 mg/dL (70-99) White Blood Count 7.8 x10^3/uL (4.0-11.0) Red Blood Count 3.77 x10^6/uL (4.30-5.70) Hemoglobin 11.4 g/dL (13.0-17.5) Hematocrit 34.5 % (39.0-53.0) Mean Corpuscular Volume 91 fL (79-100) Mean Corpuscular Hemoglobin 30 pg (25-35) Mean Corpuscular Hemoglobin Concent 33 g/dL (31-37) Red Cell Distribution Width 13.9 % (11.5-14.5) Platelet Count 213 x10^3/uL (140-400) Sodium Level 144 mmol/L (136-145) Potassium Level 4.7 mmol/L (3.5-5.1) Chloride Level 110 mmol/L (98-107) Carbon Dioxide Level 27 mmol/L (21-32) Anion Gap 7 (6-14) Blood Urea Nitrogen 26 mg/dL (8-26) Creatinine 1.2 mg/dL (0.7-1.3) Estimated GFR (Cockcroft-Gault) 74.7 Glucose Level 227 mg/dL (70-99) Calcium Level 9.2 mg/dL (8.5-10.1) Phosphorus Level 3.7 mg/dL (2.6-4.7) Magnesium Level 2.4 mg/dL (1.8-2.4) Test 02/13/21 05:41 02/13/21 08:00 Glucose (Fingerstick) 213 mg/dL (70-99) O2 Saturation 96 % (92-99) Arterial Blood pH 7.34 (7.35-7.45) Arterial Blood pCO2 at Patient Temp 43 mmHg (35-46) Arterial Blood pO2 at Patient Temp 92 mmHg (65-108) Arterial Blood HCO3 23 mmol/L (21-28) Arterial Blood Base Excess -3 mmol/L (-3-3) FiO2 50 Laboratory Tests Test 02/12/21 12:01 02/12/21 18:01 02/13/21 00:07 02/13/21 05:00 Glucose (Fingerstick) 197 mg/dL (70-99) 212 mg/dL (70-99) 211 mg/dL (70-99) White Blood Count 7.8 x10^3/uL (4.0-11.0) Red Blood Count 3.77 x10^6/uL (4.30-5.70) Hemoglobin 11.4 g/dL (13.0-17.5) Hematocrit 34.5 % (39.0-53.0) Mean Corpuscular Volume 91 fL (79-100) Mean Corpuscular Hemoglobin 30 pg (25-35) Mean Corpuscular Hemoglobin Concent 33 g/dL (31-37) Red Cell Distribution Width 13.9 % (11.5-14.5) Platelet Count 213 x10^3/uL (140-400) Sodium Level 144 mmol/L (136-145) Potassium Level 4.7 mmol/L (3.5-5.1) Chloride Level 110 mmol/L (98-107) Carbon Dioxide Level 27 mmol/L (21-32) Anion Gap 7 (6-14) Blood Urea Nitrogen 26 mg/dL (8-26) Creatinine 1.2 mg/dL (0.7-1.3) Estimated GFR (Cockcroft-Gault) 74.7 Glucose Level 227 mg/dL (70-99) Calcium Level 9.2 mg/dL (8.5-10.1) Phosphorus Level 3.7 mg/dL (2.6-4.7) Magnesium Level 2.4 mg/dL (1.8-2.4) Test 02/13/21 05:41 02/13/21 08:00 Glucose (Fingerstick) 213 mg/dL (70-99) O2 Saturation 96 % (92-99) Arterial Blood pH 7.34 (7.35-7.45) Arterial Blood pCO2 at Patient Temp 43 mmHg (35-46) Arterial Blood pO2 at Patient Temp 92 mmHg (65-108) Arterial Blood HCO3 23 mmol/L (21-28) Arterial Blood Base Excess -3 mmol/L (-3-3) FiO2 50 Comments IMPRESSION: Chest x-ray 02/13 1. Stable support lines and tubes. 2. Severe right upper lobe predominant bullous emphysema. 3. Stable right perihilar linear atelectasis or infiltrate superimposed on diffuse interstitial prominence and small pleural effusions. Impression . IMPRESSION: 1. Acute hypoxic respiratory failure multifactorial 2. Abnormal x-ray 3. Long history of tobaccoism. CT angiogram showed bullous emphysema in the upper lobes. 3. Acute kidney injury. 4. Leukocytosi 5. s/p Right occipital craniotomy with evacuation of intracerebral hematoma. 6. Encephalopathy, multifactorial DATE OF SURGERY: 02/09/2021 PREOPERATIVE DIAGNOSIS: Right posterior temporoparietal occipital intracerebral hemorrhage with neurologic deterioration. POSTOPERATIVE DIAGNOSIS: Right posterior temporoparietal occipital intracerebral hemorrhage with neurologic deterioration. OPERATION PERFORMED: Right occipital craniotomy with evacuation of intracerebral hematoma. Plan . Updated 02/13 Discussed with mother at the bedside, CT head pending, Continue current support Not ready for spontaneous breathing trial ABG noted Repeat chest x-ray in the a.m. Nutritional support Empiric antibiotics Maintain sedated for now updated 02/12 RECOMMENDATIONS: 1. cont vent support setting reviewed oxygenation worse cxr reviewed ll infilt atelectasis R>L worse on zosyn will increase peep to 7 titrate fio2 to keep sat 94% not ready for sbt 2. elevate hob 3. Follow Neurosurgery's recommendations. 4. chest x-rays reviewed 5. Monitor renal function. cr improving 6. Nephrology's recommendations. 7. Bronchodilators. 8. has large ett secretion on abx sputum cx g+ cocci g- shania needs broader coverage ? xyvox abx per id Discussed with RN and RT MANJULA PADILLA MD Feb 13, 2021 09:33
--- NOTE | 2021-02-13 10:56 | PDOC ---
Renal-Progress Notes Subjective Notes Notes NO ACUTE CHANGES History of Present Illness Hx of present illness REMAINS ON THE VENT Vitals Vitals Vital Signs Date Time Temp Pulse Resp B/P (MAP) Pulse Ox O2 Delivery O2 Flow Rate FiO2 02/13/21 10:01 99 Ventilator 02/13/21 08:25 65 172/78 02/13/21 08:00 98.8 17 98.8 Weight Weight [ ] I.O. Intake and Output Intake and Output 02/13/21 07:00 Intake Total 2671.47 ml Output Total 3420 ml Balance -748.53 ml Intake IV Total 2426.47 ml Other 245 ml Output Urine Total 3420 ml Labs Labs Laboratory Tests Test 02/12/21 12:01 02/12/21 18:01 02/13/21 00:07 02/13/21 05:00 Glucose (Fingerstick) 197 mg/dL (70-99) 212 mg/dL (70-99) 211 mg/dL (70-99) White Blood Count 7.8 x10^3/uL (4.0-11.0) Red Blood Count 3.77 x10^6/uL (4.30-5.70) Hemoglobin 11.4 g/dL (13.0-17.5) Hematocrit 34.5 % (39.0-53.0) Mean Corpuscular Volume 91 fL (79-100) Mean Corpuscular Hemoglobin 30 pg (25-35) Mean Corpuscular Hemoglobin Concent 33 g/dL (31-37) Red Cell Distribution Width 13.9 % (11.5-14.5) Platelet Count 213 x10^3/uL (140-400) Sodium Level 144 mmol/L (136-145) Potassium Level 4.7 mmol/L (3.5-5.1) Chloride Level 110 mmol/L (98-107) Carbon Dioxide Level 27 mmol/L (21-32) Anion Gap 7 (6-14) Blood Urea Nitrogen 26 mg/dL (8-26) Creatinine 1.2 mg/dL (0.7-1.3) Estimated GFR (Cockcroft-Gault) 74.7 Glucose Level 227 mg/dL (70-99) Calcium Level 9.2 mg/dL (8.5-10.1) Phosphorus Level 3.7 mg/dL (2.6-4.7) Magnesium Level 2.4 mg/dL (1.8-2.4) Test 02/13/21 05:41 02/13/21 08:00 Glucose (Fingerstick) 213 mg/dL (70-99) O2 Saturation 96 % (92-99) Arterial Blood pH 7.34 (7.35-7.45) Arterial Blood pCO2 at Patient Temp 43 mmHg (35-46) Arterial Blood pO2 at Patient Temp 92 mmHg (65-108) Arterial Blood HCO3 23 mmol/L (21-28) Arterial Blood Base Excess -3 mmol/L (-3-3) FiO2 50 Micro Micro Microbiology 02/11/21 Blood Culture - Preliminary, Resulted NO GROWTH AFTER 1 DAY 02/11/21 Gram Stain Evaluation - Final, Complete 02/11/21 Respiratory Culture - Final, Complete Review of Systems Constitutional: yes: unresponsive Physical Exam General Appearance: no apparent distress Skin: warm Heart: S1S2 Abdomen: soft, distension, other (NO BS) Extremities: pulses present Neurology: other (SEDATED) Assessment Assessment IMP MARVIN - IMPROVING WITH CR OF 1.2 FROM 3.4-HD LINE OUT HYPOKALEMIA-REPLACED ACUTE RESP FAILURE PROB ASP PNA ICB-S/P CRANIOTOMY AND HEMATOMA EVACATION ACUTE RESP FAILURE HX OF COPD ILEUS PLAN CONTROL BP GOAL SBP LESS THAN 140 CARDENE GTT NEEDED START CATAPRESS PATCH CONT TPN REPLACE ELECTROLYTES NEEDED ANTIBIOTICS VENT SUPPORT WILL FOLLOW ESTEBAN PERKINS MD Feb 13, 2021 10:56
[2021-02-13] MEDS: fentaNYL HIGH DOSE PCA 55 ML IV PRN (11:39)
[2021-02-13] MEDS: cloNIDine TTS-3 1 PATCH PATCH.TDWK TD SCH (11:47)
--- NOTE | 2021-02-13 12:59 | PDOC ---
PROGRESS NOTES Date of Service DATE: 02/13/21 TIME: 12:56 Subjective Subjective POD #4 Right occipital craniotomy with evacuation of intracerebral hematoma remains sedated on vent no changes mother at bedside Objective Objective Vital Signs Date Time Temp Pulse Resp B/P (MAP) Pulse Ox O2 Delivery O2 Flow Rate FiO2 02/13/21 12:22 100 Ventilator 02/13/21 08:25 65 172/78 02/13/21 08:00 98.8 17 98.8 Intake and Output 02/13/21 06:59 Intake Total 2671.47 ml Output Total 3520 ml Balance -848.53 ml Intake IV Total 2426.47 ml Other 245 ml Output Urine Total 3520 ml Physical Exam General: Other (sedated) Skin: Other (dressing C,D,I) Plan Plan of Care F/U CT head pending wean sedation as tolerated D/W RN Comment Review of Relevant I have reviewed the following items neela (where applicable) has been applied. Labs Laboratory Tests Test 02/11/21 15:35 02/11/21 21:30 02/12/21 06:45 02/12/21 09:10 O2 Saturation 90 % (92-99) 95 % (92-99) Arterial Blood pH 7.32 (7.35-7.45) 7.34 (7.35-7.45) Arterial Blood pCO2 at Patient Temp 42 mmHg (35-46) 41 mmHg (35-46) Arterial Blood pO2 at Patient Temp 65 mmHg (65-108) 83 mmHg (65-108) Arterial Blood HCO3 21 mmol/L (21-28) 22 mmol/L (21-28) Arterial Blood Base Excess -5 mmol/L (-3-3) -4 mmol/L (-3-3) FiO2 100 70 Lactic Acid Level 0.6 mmol/L (0.4-2.0) White Blood Count 8.6 x10^3/uL (4.0-11.0) Red Blood Count 3.89 x10^6/uL (4.30-5.70) Hemoglobin 11.7 g/dL (13.0-17.5) Hematocrit 35.2 % (39.0-53.0) Mean Corpuscular Volume 91 fL (79-100) Mean Corpuscular Hemoglobin 30 pg (25-35) Mean Corpuscular Hemoglobin Concent 33 g/dL (31-37) Red Cell Distribution Width 13.8 % (11.5-14.5) Platelet Count 192 x10^3/uL (140-400) Neutrophils (%) (Auto) 79 % (31-73) Lymphocytes (%) (Auto) 11 % (24-48) Monocytes (%) (Auto) 9 % (0-9) Eosinophils (%) (Auto) 1 % (0-3) Basophils (%) (Auto) 0 % (0-3) Neutrophils # (Auto) 6.8 x10^3/uL (1.8-7.7) Lymphocytes # (Auto) 0.9 x10^3/uL (1.0-4.8) Monocytes # (Auto) 0.8 x10^3/uL (0.0-1.1) Eosinophils # (Auto) 0.1 x10^3/uL (0.0-0.7) Basophils # (Auto) 0.0 x10^3/uL (0.0-0.2) Sodium Level 142 mmol/L (136-145) Potassium Level 4.4 mmol/L (3.5-5.1) Chloride Level 109 mmol/L (98-107) Carbon Dioxide Level 25 mmol/L (21-32) Anion Gap 8 (6-14) Blood Urea Nitrogen 31 mg/dL (8-26) Creatinine 1.3 mg/dL (0.7-1.3) Estimated GFR (Cockcroft-Gault) 68.1 Glucose Level 191 mg/dL (70-99) Calcium Level 8.7 mg/dL (8.5-10.1) Phosphorus Level 2.6 mg/dL (2.6-4.7) Magnesium Level 2.5 mg/dL (1.8-2.4) Triglycerides Level 369 mg/dL (0-150) Test 02/12/21 12:01 02/12/21 18:01 02/13/21 00:07 02/13/21 05:00 Glucose (Fingerstick) 197 mg/dL (70-99) 212 mg/dL (70-99) 211 mg/dL (70-99) White Blood Count 7.8 x10^3/uL (4.0-11.0) Red Blood Count 3.77 x10^6/uL (4.30-5.70) Hemoglobin 11.4 g/dL (13.0-17.5) Hematocrit 34.5 % (39.0-53.0) Mean Corpuscular Volume 91 fL (79-100) Mean Corpuscular Hemoglobin 30 pg (25-35) Mean Corpuscular Hemoglobin Concent 33 g/dL (31-37) Red Cell Distribution Width 13.9 % (11.5-14.5) Platelet Count 213 x10^3/uL (140-400) Sodium Level 144 mmol/L (136-145) Potassium Level 4.7 mmol/L (3.5-5.1) Chloride Level 110 mmol/L (98-107) Carbon Dioxide Level 27 mmol/L (21-32) Anion Gap 7 (6-14) Blood Urea Nitrogen 26 mg/dL (8-26) Creatinine 1.2 mg/dL (0.7-1.3) Estimated GFR (Cockcroft-Gault) 74.7 Glucose Level 227 mg/dL (70-99) Calcium Level 9.2 mg/dL (8.5-10.1) Phosphorus Level 3.7 mg/dL (2.6-4.7) Magnesium Level 2.4 mg/dL (1.8-2.4) Test 02/13/21 05:41 02/13/21 08:00 02/13/21 12:18 Glucose (Fingerstick) 213 mg/dL (70-99) 224 mg/dL (70-99) O2 Saturation 96 % (92-99) Arterial Blood pH 7.34 (7.35-7.45) Arterial Blood pCO2 at Patient Temp 43 mmHg (35-46) Arterial Blood pO2 at Patient Temp 92 mmHg (65-108) Arterial Blood HCO3 23 mmol/L (21-28) Arterial Blood Base Excess -3 mmol/L (-3-3) FiO2 50 Laboratory Tests Test 02/12/21 18:01 02/13/21 00:07 02/13/21 05:00 02/13/21 05:41 Glucose (Fingerstick) 212 mg/dL (70-99) 211 mg/dL (70-99) 213 mg/dL (70-99) White Blood Count 7.8 x10^3/uL (4.0-11.0) Red Blood Count 3.77 x10^6/uL (4.30-5.70) Hemoglobin 11.4 g/dL (13.0-17.5) Hematocrit 34.5 % (39.0-53.0) Mean Corpuscular Volume 91 fL (79-100) Mean Corpuscular Hemoglobin 30 pg (25-35) Mean Corpuscular Hemoglobin Concent 33 g/dL (31-37) Red Cell Distribution Width 13.9 % (11.5-14.5) Platelet Count 213 x10^3/uL (140-400) Sodium Level 144 mmol/L (136-145) Potassium Level 4.7 mmol/L (3.5-5.1) Chloride Level 110 mmol/L (98-107) Carbon Dioxide Level 27 mmol/L (21-32) Anion Gap 7 (6-14) Blood Urea Nitrogen 26 mg/dL (8-26) Creatinine 1.2 mg/dL (0.7-1.3) Estimated GFR (Cockcroft-Gault) 74.7 Glucose Level 227 mg/dL (70-99) Calcium Level 9.2 mg/dL (8.5-10.1) Phosphorus Level 3.7 mg/dL (2.6-4.7) Magnesium Level 2.4 mg/dL (1.8-2.4) Test 02/13/21 08:00 02/13/21 12:18 O2 Saturation 96 % (92-99) Arterial Blood pH 7.34 (7.35-7.45) Arterial Blood pCO2 at Patient Temp 43 mmHg (35-46) Arterial Blood pO2 at Patient Temp 92 mmHg (65-108) Arterial Blood HCO3 23 mmol/L (21-28) Arterial Blood Base Excess -3 mmol/L (-3-3) FiO2 50 Glucose (Fingerstick) 224 mg/dL (70-99) Microbiology 02/11/21 Blood Culture - Preliminary, Resulted NO GROWTH AFTER 1 DAY 02/11/21 Gram Stain Evaluation - Final, Complete 02/11/21 Respiratory Culture - Final, Complete Medications Current Medications Nicardipine HCl 50 mg/Sodium Chloride 250 ml @ 12.5 mls/hr CONT PRN IV SEE I/O RECORD Last administered on 02/11/21at 11:57; Start 02/09/21 at 06:15 Labetalol HCl (Normodyne Iv Push) 10 mg PRN Q2HR PRN IVP HYPERTENSION Last administered on 02/13/21at 08:25; Start 02/09/21 at 06:15 Lorazepam (Ativan Inj) 2 mg 1X ONCE IVP Last administered on 02/09/21at 10:54; Start 02/09/21 at 10:45; Stop 02/09/21 at 10:46; Status DC Lorazepam (Ativan Inj) 2 mg 1X ONCE IVP Last administered on 02/09/21at 11:00; Start 02/09/21 at 11:00; Stop 02/09/21 at 11:01; Status DC Fentanyl Citrate (Fentanyl 2ml Vial) 25 mcg PRN Q2HR PRN IVP MODERATE TO SEVERE PAIN Last administered on 02/09/21at 13:37; Start 02/09/21 at 13:30 Info (Review Meds) 1 ea PRN 1X PRN MC SEE COMMENTS; Start 02/09/21 at 15:00 Acetaminophen (Tylenol Supp) 650 mg PRN Q6HRS PRN [place] FEVER > 100.5'F or 38'C; Start 02/09/21 at 15:00; Stop 02/11/21 at 21:12; Status DC Albuterol Sulfate (Ventolin Neb Soln) 2.5 mg PRN Q4HRS PRN NEB SHORTNESS OF BREATH; Start 02/09/21 at 15:15 Iohexol (Omnipaque 350 Mg/ml) 75 ml 1X ONCE IV Last administered on 02/09/21at 15:52; Start 02/09/21 at 15:30; Stop 02/09/21 at 15:35; Status DC Iohexol (Omnipaque 350 Mg/ml) 100 ml STK-MED ONCE .ROUTE ; Start 02/09/21 at 15:26; Stop 02/09/21 at 15:27; Status DC Info (CONTRAST GIVEN -- Rx MONITORING) 1 each PRN DAILY PRN MC SEE COMMENTS; Start 02/09/21 at 15:45; Stop 02/11/21 at 15:44; Status DC Propofol 100 ml @ As Directed STK-MED ONCE IV ; Start 02/09/21 at 15:51; Stop 02/09/21 at 15:51; Status DC Rocuronium Baker (Zemuron) 50 mg STK-MED ONCE .ROUTE ; Start 02/09/21 at 15:51; Stop 02/09/21 at 15:51; Status DC Lidocaine HCl (Lidocaine HCl 2% Abboject) 100 mg STK-MED ONCE .ROUTE ; Start 02/09/21 at 15:52; Stop 02/09/21 at 15:53; Status DC Propofol 100 ml @ 3.507 mls/ hr CONT PRN IV PER PROTOCOL Last administered on 02/13/21at 12:15; Start 02/09/21 at 16:15 Lidocaine HCl (Lidocaine HCl 2% Abboject) 100 mg 1X ONCE IV Last administered on 02/09/21 16:17; Start 02/09/21 at 16:15; Stop 02/09/21 at 16:17; Status DC Rocuronium Baker (Zemuron) 50 mg 1X ONCE IV Last administered on 02/09/21 16:17; Start 02/09/21 at 16:15; Stop 02/09/21 at 16:17; Status DC Rocuronium Baker (Zemuron) 100 mg STK-MED ONCE .ROUTE ; Start 02/09/21 at 16:31; Stop 02/09/21 at 16:32; Status DC Gelatin (Gelfoam Size 100) 1 each STK-MED ONCE .ROUTE Last administered on 02/09/21 17:49; Start 02/09/21 at 16:33; Stop 02/09/21 at 16:33; Status DC Bupivacaine HCl/ Epinephrine Bitart (Sensorcain-Epi 0.5%-1:364905 Mpf) 30 ml STK-MED ONCE .ROUTE Last administered on 02/09/21 17:49; Start 02/09/21 at 16: 33; Stop 02/09/21 at 16:33; Status DC Cellulose (Surgicel Hemostat 4x8) 1 each STK-MED ONCE .ROUTE Last administered on 02/09/21 18:38; Start 02/09/21 at 16:33; Stop 02/09/21 at 16:33; Status DC Thrombin 20,000 unit STK-MED ONCE TP Last administered on 02/09/21 17:49; Start 02/09/21 at 16:33; Stop 02/09/21 at 16:33; Status DC Fentanyl Citrate (Fentanyl 2ml Vial) 75 mcg 1X ONCE IVP Last administered on 7/8/21at 16:45; Start 02/09/21 at 16:45; Stop 02/09/21 at 16:47; Status DC Propofol (Diprivan) 200 mg 1X ONCE IV ; Start 02/09/21 at 17:15; Stop 02/09/21 at 17:16; Status DC Lidocaine HCl (Lidocaine HCl 2% Abboject) 100 mg 1X ONCE IV ; Start 02/09/21 at 17:15; Stop 02/09/21 at 17:16; Status DC Rocuronium Baker (Zemuron) 50 mg 1X ONCE IV ; Start 02/09/21 at 17:15; Stop 02/09/21 at 17:16; Status DC Propofol 100 ml @ 0 mls/hr CONT PRN PRN IV SEDATION; Start 02/09/21 at 17:15; Stop 02/10/21 at 05:14; Status DC Cefazolin Sodium (Ancef) 1 gm STK-MED ONCE IVP ; Start 02/09/21 at 17:28; Stop 02/09/21 at 17:28; Status DC Fentanyl Citrate (Fentanyl 2ml Vial) 100 mcg STK-MED ONCE .ROUTE ; Start 02/09/21 at 17:43; Stop 02/09/21 at 17:43; Status DC Rocuronium Baker (Zemuron) 100 mg STK-MED ONCE .ROUTE ; Start 02/09/21 at 17:58; Stop 02/09/21 at 17:59; Status DC Vecuronium Baker (Norcuron Bolus) 10 mg STK-MED ONCE IV ; Start 02/09/21 at 18:49; Stop 02/09/21 at 18:50; Status DC Sodium Chloride (SODIUM CHLORIDE 20ml) 20 ml STK-MED ONCE IJ ; Start 02/09/21 at 18:50; Stop 02/09/21 at 18:50; Status DC Sevoflurane (Ultane) 90 ml STK-MED ONCE IH ; Start 02/09/21 at 19:20; Stop 02/09/21 at 19:21; Status DC Fentanyl Citrate 30 ml @ 2.5 mls/hr CONT PRN IV SEE PROTOCOL Last administered on 02/09/21at 23:40; Start 02/09/21 at 23:15; Stop 02/10/21 at 04:43; Status DC Fentanyl Citrate 55 ml @ 0 mls/hr CONT PRN IV SEE I/O Last administered on 02/13/21at 11:39; Start 02/10/21 at 05:00 Potassium Chloride/Dextrose/ Sod Cl 1,000 ml @ 80 mls/hr [id number] IV ; Start 02/10/21 at 09:00; Stop 02/10/21 at 13:21; Status DC Pantoprazole Sodium (PROTONIX VIAL for IV PUSH) 40 mg DAILYAC IVP Last administered on 02/13/21at 08:24; Start 02/10/21 at 09:00 Lidocaine HCl (Buffered Lidocaine 1%) 3 ml STK-MED ONCE .ROUTE ; Start 02/10/21 at 13:18; Stop 02/10/21 at 13:18; Status DC Sodium Chloride 1,000 ml @ 80 mls/hr [id number] IV Last administered on 02/12/21at 03:00; Start 02/10/21 at 13:30; Stop 02/12/21 at 15:36; Status DC Lidocaine HCl (Buffered Lidocaine 1%) 6 ml 1X ONCE INJ Last administered on 02/10/21at 13:57; Start 02/10/21 at 13:45; Stop 02/10/21 at 13:46; Status DC Potassium Chloride/Water 100 ml @ 100 mls/hr Q1H IV Last administered on 02/11/21at 10:07; Start 02/11/21 at 08:00; Stop 02/11/21 at 09:59; Status DC Piperacillin Sod/ Tazobactam Sod 3.375 gm/Sodium Chloride 50 ml @ 100 mls/hr Q6HRS IV Last administered on 02/13/21at 11:56; Start 02/11/21 at 09:00 Info (Tpn Per Pharmacy) 1 each PRN DAILY PRN MC SEE COMMENTS Last administered on 02/12/21at 12:16; Start 02/11/21 at 11:15 Sodium Chloride 90 meq/Potassium Chloride 50 meq/ Potassium Phosphate 13.6 mmol/Magnesium Sulfate 10 meq/ Calcium Gluconate 10 meq/ Multivitamins 5 ml/Zinc/Copper/ Manganese/ Selenium 1 ml/ Total Parenteral Nutrition/Amino Acids/Dextrose 1,512 ml @ 63 mls/hr TPN CONT IV Last administered on 02/11/21at 22:32; Start 02/11/21 at 22:00; Stop 02/12/21 at 21:59; Status DC Furosemide (Lasix) 20 mg 1X ONCE IVP Last administered on 02/11/21at 15:11; Start 02/11/21 at 15:30; Stop 02/11/21 at 15:31; Status DC Furosemide (Lasix) 20 mg 1X ONCE IVP Last administered on 02/11/21at 17:00; Start 02/11/21 at 17:00; Stop 02/11/21 at 17:01; Status DC Midazolam HCl 100 ml @ 1 mls/hr CONT PRN IV SEE PROTOCOL Last administered on 02/12/21at 21:53; Start 02/11/21 at 19:30 Acetaminophen (Tylenol Supp) 650 mg PRN Q6HRS PRN [place] MILD PAIN / TEMP > 100.3'F; Start 02/11/21 at 21:15 Sodium Chloride 80 meq/Potassium Chloride 50 meq/ Potassium Phosphate 13.6 mmol/Magnesium Sulfate 6 meq/ Calcium Gluconate 10 meq/ Multivitamins 5 ml/Zinc/Copper/ Manganese/ Selenium 1 ml/ Total Parenteral Nutrition/Amino Acids/Dextrose 1,512 ml @ 63 mls/hr TPN CONT IV Last administered on 02/12/21at 22:09; Start 02/12/21 at 22:00; Stop 02/13/21 at 21:59 Furosemide (Lasix) 40 mg 1X ONCE IVP Last administered on 02/12/21at 12:44; Start 02/12/21 at 12:30; Stop 02/12/21 at 12:31; Status DC Insulin Human Lispro (HumaLOG) 0-5 UNITS Q6HRS SQ Last administered on 02/13/21at 12:23; Start 02/12/21 at 12:00 Dextrose (Dextrose 50%-Water Syringe) 12.5 gm PRN Q15MIN PRN IV SEE COMMENTS; Start 02/12/21 at 12:15 Clonidine HCl (Catapres Tts-3) 1 patch WEEKLY TD Last administered on 02/13/21at 11:47; Start 02/13/21 at 11:00 Vitals/I & O Vital Sign - Last 24 Hours 02/12/21 02/12/21 02/12/21 02/12/21 13:00 13:33 14:00 15:00 Pulse 77 72 78 Resp 18 16 16 B/P (MAP) 140/69 (92) 156/72 (100) 113/63 (80) Pulse Ox 96 97 96 97 O2 Delivery Ventilator Ventilator Ventilator Ventilator 02/12/21 02/12/21 02/12/21 02/12/21 15:40 15:56 16:00 16:00 Temp 98.4 98.4 Pulse 77 Resp 20 B/P (MAP) 179/82 (114) Pulse Ox 97 97 O2 Delivery Mechanical Ventilator Ventilator Ventilator 02/12/21 02/12/21 02/12/21 02/12/21 17:00 18:00 18:10 19:00 Pulse 78 79 78 Resp 20 20 19 B/P (MAP) 138/71 (93) 161/77 (105) 153/74 (100) Pulse Ox 98 96 97 97 O2 Delivery Ventilator Ventilator Ventilator Ventilator 02/12/21 02/12/21 02/12/21 02/12/21 20:00 20:00 20:00 20:54 Temp 99.8 99.8 Pulse 79 Resp 18 B/P (MAP) 157/74 (101) Pulse Ox 97 97 O2 Delivery Ventilator Mechanical Ventilator Ventilator 02/12/21 02/12/21 02/12/21 02/12/21 21:00 22:00 23:00 23:26 Pulse 76 78 71 78 Resp 22 21 18 B/P (MAP) 147/73 (97) 156/75 (102) 169/80 (109) 156/75 Pulse Ox 96 95 98 O2 Delivery Ventilator Ventilator Ventilator 02/12/21 02/12/21 02/13/21 02/13/21 23:50 23:59 00:00 00:01 Temp 99.4 99.4 Pulse 70 Resp 19 B/P (MAP) 182/80 (114) Pulse Ox 97 98 O2 Delivery Ventilator Mechanical Ventilator Ventilator 02/13/21 02/13/21 02/13/21 02/13/21 00:30 01:00 02:00 02:17 Pulse 78 78 Resp 16 19 B/P (MAP) 131/66 (87) 147/71 (96) Pulse Ox 98 98 99 98 O2 Delivery Ventilator Ventilator Ventilator Ventilator 02/13/21 02/13/21 02/13/21 02/13/21 03:00 04:00 04:00 04:00 Temp 98.7 98.7 Pulse 78 78 Resp 16 19 B/P (MAP) 147/71 (96) 198/58 (104) Pulse Ox 99 97 O2 Delivery Ventilator Ventilator Mechanical Ventilator 02/13/21 02/13/21 02/13/21 02/13/21 04:18 04:49 05:00 06:00 Pulse 78 65 65 Resp 19 19 B/P (MAP) 198/88 154/72 (99) 149/73 (98) Pulse Ox 97 99 99 O2 Delivery Ventilator Ventilator Ventilator 02/13/21 02/13/21 02/13/21 02/13/21 07:00 08:00 08:00 08:00 Pulse 65 Resp 16 B/P (MAP) 148/74 (98) Pulse Ox 99 99 O2 Delivery Ventilator Ventilator Mechanical Ventilator 02/13/21 02/13/21 02/13/21 02/13/21 08:00 08:25 10:01 11:39 Temp 98.8 98.8 Pulse 65 65 Resp 17 B/P (MAP) 178/79 (112) 172/78 Pulse Ox 98 99 99 O2 Delivery Ventilator Ventilator 02/13/21 02/13/21 12:09 12:22 Pulse Ox 99 100 O2 Delivery Ventilator Intake and Output 02/12/21 02/12/21 02/13/21 14:59 22:59 06:59 Intake Total 140 ml 1041.57 ml 1489.9 ml Output Total 1000 ml 1775 ml 745 ml Balance -860 ml -733.43 ml 744.9 ml Justifications for Admission Other Justification [employer] Feb 13, 2021 12:59
[2021-02-13] MEDS: TPN PER PHARMACY MC PRN (13:33)
--- NOTE | 2021-02-13 13:34 | NUR ---
Pharmacy TPN Dosing Note S: COOPER CHAVEZ is a 61 year old M Currently receiving Central Continuous TPN started 02/11/21 B:Pertinent PMH: UNABLE TO START TUBE FEEDS Height: 6 feet, 2 inches Weight: 113.9 kg Current diet: NPO LABS: Sodium: 144 Potassium: 4.7 Chloride: 110 Calcium: 9.2 Corrected Calcium: 9.68 Magnesium: 2.4 CO2: 27 SCr: 1.2 Glucose: 211-227 Albumin: 3.4 AST: 17 ALT: 21 TPN FORMULA: TPN TYPE: Central Continuous AMINO ACIDS: 60 gm DEXTROSE: 195 gm SODIUM CHLORIDE: 80 mEq POTASSIUM CHLORIDE: 50 mEq POTASSIUM PHOSPHATE: 13.6 mmol MAGNESIUM: 6 mEq CALCIUM: 10 mEq MULTIPLE VITAMIN: 5 ml TRACE ELEMENTS: 1 ml ml(s) TPN PLAN: Cont same TPN. BMP, Mag and Phos in AM R: Continue same TPN Will monitor electrolytes, glucose, and tolerance to TPN. MIKALA RIGGS FORMERLY [facility] [place], 02/13/21 [id number]
--- NOTE | 2021-02-13 14:39 | RAD ---
EXAM: CT HEAD WITHOUT CONTRAST. HISTORY: Intracranial hemorrhage. TECHNIQUE: Computed tomography of the head was performed without intravenous contrast. One or more of the following individualized dose reduction techniques were utilized for this examination: 1. Automated exposure control. 2. Adjustment of the mA and/or kV according to patient size. 3. Use of iterative reconstruction technique. COMPARISON: 02/10/2021. FINDINGS: An intraparenchymal hemorrhage versus hemorrhagic transformation of an infarct throughout t he right posterior temporal and occipital lobes spans 5.3 x 4.8 cm and has evolved mildly in the inte rval. Pneumocephalus associated with overlying right occipital craniotomy has resolved. There is mild mass effect on the occipital horn of the right lateral ventricle, not clearly changed. A small amount of sulcal subarachnoid hemorrhage on the left has evolved. Small amount of intraventri cular clot persists at least on the left. There is mild to moderate chronic microangiopathic white matter change elsewhere. There is no hydroce phalus. There is a small mucus retention cyst in the right maxillary sinus. The orbits are unremarkable. The temporal bones are unremarkable. The calvarium reveals no suspicious lesions. Scalp skin warren nicolas in in place. IMPRESSION: 1. Expected interval evolution of a right posterior temporal/occipital intraparenchymal hematoma stat us post decompressive craniotomy. 2. Expected evolution of a small amount of subarachnoid and intraventricular clot. Electronically signed by: Renetta Weston MD (02/13/2021 2:36 PM) [id number]
--- NOTE | 2021-02-13 16:37 | NUR ---
SS following up with discharge planning. SS reviewed pt chart and discussed with pt RN. Pt is currently on the vent at 50%. Pt on Versed, Fentanyl, and Propofol. Pt on IV Zosyn. TPN. Self pay. Med Assist following. SS will continue to follow for discharge planning.
[2021-02-13] MEDS: MIDAZOLAM 100mg/100ml NS BAG 100 ML IV PRN (20:58)
[2021-02-13] MEDS ORDERED: DEXTROSE 70% IV SCH (22:00)
[2021-02-13] MEDS ORDERED: [UNRECOGNIZED DRUG - OTHER] IV SCH (22:00)
[2021-02-13] MEDS ORDERED: AMINO ACID IV SCH (22:00)
[2021-02-13] MEDS ORDERED: TOTAL PARENTERAL NUTRITION IV SCH (22:00)
[2021-02-14] VITALS (24 sets, daily range): BP systolic 142–197; BP diastolic 66–82
[2021-02-14] MEDS: PIPERACILLIN/TAZOBACTAM 3.375 GM in IV NORMAL SALINE 50ML 50 ML IV SCH ×5 (00:05→23:44)
[2021-02-14] MEDS: PROPOFOL 100 ML IV PRN ×9 (00:05→23:44)
[2021-02-14] MEDS: LABETALOL 20 MG/4 ML DISP.SYRIN. IVP PRN ×7 (00:07→23:48)
[2021-02-14] MEDS: INSULIN LISPRO 300 UNITS/3 ML VIAL. SQ SCH ×5 (00:12→23:59)
[2021-02-14 07:04] LABS: BASO % 1 % (0-3); EOS # 0.1 x10^3/uL (0.0-0.7); EOS % 1 % (0-3); HEMATOCRIT 35.5 % (39.0-53.0); HEMOGLOBIN 11.7 g/dL (13.0-17.5); LYMPH # 0.9 x10^3/uL (1.0-4.8); LYMPH % 12 % (24-48); MEAN CORPUSCULAR HEMOGLOBIN 30 pg (25-35); MEAN CORPUSCULAR HGB CONC 33 g/dL (31-37); MEAN CORPUSCULAR VOLUME 91 fL (79-100); MONO # 0.5 x10^3/uL (0.0-1.1); MONO % 7 % (0-9); NEUT # 6.5 x10^3/uL (1.8-7.7); NEUT % 80 % (31-73); PLATELET COUNT 225 x10^3/uL (140-400); RED BLOOD COUNT 3.91 x10^6/uL (4.30-5.70); RED CELL DISTRIBUTION WIDTH 13.7 % (11.5-14.5); WHITE BLOOD COUNT 8.1 x10^3/uL (4.0-11.0)
[2021-02-14] MEDS: PANTOPRAZOLE IV PUSH 40 MG VIAL. IVP SCH (07:24)
[2021-02-14 07:36] LABS: GFR 92.2; POTASSIUM 4.7 mmol/L (3.5-5.1)
[2021-02-14 07:37] LABS: MAGNESIUM 2.2 mg/dL (1.8-2.4); PHOSPHORUS 3.7 mg/dL (2.6-4.7)
[2021-02-14 08:40] LABS: BASE EXCESS ABG -2 mmol/L (-3-3); HCO3 ABG 23 mmol/L (21-28); PCO2 ABG 43 mmHg (35-46); PO2 ABG 70 mmHg (65-108); SAT O2 ABG 92 % (92-99)
--- NOTE | 2021-02-14 08:54 | PDOC ---
PULMONARY PROGRESS NOTES DATE: 02/14/21 TIME: 08:54 Subjective RN reports elevated blood pressure last night Patient sedated Given IV Cardene Dr. Aguilera initiated hydralazine Vitals Vital Signs Date Time Temp Pulse Resp B/P (MAP) Pulse Ox O2 Delivery O2 Flow Rate FiO2 02/14/21 07:00 147/46 02/14/21 06:00 63 16 94 Ventilator 02/14/21 04:00 98.8 98.8 Comments ros unable to obtain sedated on vent Lungs: Crackles Cardiovascular: S1, S2 Abdomen: Soft, Non-tender Extremities: No Edema Skin: Warm Labs Laboratory Tests Test 02/12/21 09:10 02/12/21 12:01 02/12/21 18:01 02/13/21 00:07 O2 Saturation 95 % (92-99) Arterial Blood pH 7.34 (7.35-7.45) Arterial Blood pCO2 at Patient Temp 41 mmHg (35-46) Arterial Blood pO2 at Patient Temp 83 mmHg (65-108) Arterial Blood HCO3 22 mmol/L (21-28) Arterial Blood Base Excess -4 mmol/L (-3-3) FiO2 70 Glucose (Fingerstick) 197 mg/dL (70-99) 212 mg/dL (70-99) 211 mg/dL (70-99) Test 02/13/21 05:00 02/13/21 05:41 02/13/21 08:00 02/13/21 12:18 White Blood Count 7.8 x10^3/uL (4.0-11.0) Red Blood Count 3.77 x10^6/uL (4.30-5.70) Hemoglobin 11.4 g/dL (13.0-17.5) Hematocrit 34.5 % (39.0-53.0) Mean Corpuscular Volume 91 fL (79-100) Mean Corpuscular Hemoglobin 30 pg (25-35) Mean Corpuscular Hemoglobin Concent 33 g/dL (31-37) Red Cell Distribution Width 13.9 % (11.5-14.5) Platelet Count 213 x10^3/uL (140-400) Sodium Level 144 mmol/L (136-145) Potassium Level 4.7 mmol/L (3.5-5.1) Chloride Level 110 mmol/L (98-107) Carbon Dioxide Level 27 mmol/L (21-32) Anion Gap 7 (6-14) Blood Urea Nitrogen 26 mg/dL (8-26) Creatinine 1.2 mg/dL (0.7-1.3) Estimated GFR (Cockcroft-Gault) 74.7 Glucose Level 227 mg/dL (70-99) Calcium Level 9.2 mg/dL (8.5-10.1) Phosphorus Level 3.7 mg/dL (2.6-4.7) Magnesium Level 2.4 mg/dL (1.8-2.4) Glucose (Fingerstick) 213 mg/dL (70-99) 224 mg/dL (70-99) O2 Saturation 96 % (92-99) Arterial Blood pH 7.34 (7.35-7.45) Arterial Blood pCO2 at Patient Temp 43 mmHg (35-46) Arterial Blood pO2 at Patient Temp 92 mmHg (65-108) Arterial Blood HCO3 23 mmol/L (21-28) Arterial Blood Base Excess -3 mmol/L (-3-3) FiO2 50 Test 02/13/21 17:54 02/14/21 00:10 02/14/21 05:39 02/14/21 05:40 Glucose (Fingerstick) 218 mg/dL (70-99) 248 mg/dL (70-99) 232 mg/dL (70-99) White Blood Count 8.1 x10^3/uL (4.0-11.0) Red Blood Count 3.91 x10^6/uL (4.30-5.70) Hemoglobin 11.7 g/dL (13.0-17.5) Hematocrit 35.5 % (39.0-53.0) Mean Corpuscular Volume 91 fL (79-100) Mean Corpuscular Hemoglobin 30 pg (25-35) Mean Corpuscular Hemoglobin Concent 33 g/dL (31-37) Red Cell Distribution Width 13.7 % (11.5-14.5) Platelet Count 225 x10^3/uL (140-400) Neutrophils (%) (Auto) 80 % (31-73) Lymphocytes (%) (Auto) 12 % (24-48) Monocytes (%) (Auto) 7 % (0-9) Eosinophils (%) (Auto) 1 % (0-3) Basophils (%) (Auto) 1 % (0-3) Neutrophils # (Auto) 6.5 x10^3/uL (1.8-7.7) Lymphocytes # (Auto) 0.9 x10^3/uL (1.0-4.8) Monocytes # (Auto) 0.5 x10^3/uL (0.0-1.1) Eosinophils # (Auto) 0.1 x10^3/uL (0.0-0.7) Basophils # (Auto) 0.0 x10^3/uL (0.0-0.2) Sodium Level 148 mmol/L (136-145) Potassium Level 4.7 mmol/L (3.5-5.1) Chloride Level 111 mmol/L (98-107) Carbon Dioxide Level 25 mmol/L (21-32) Anion Gap 12 (6-14) Blood Urea Nitrogen 18 mg/dL (8-26) Creatinine 1.0 mg/dL (0.7-1.3) Estimated GFR (Cockcroft-Gault) 92.2 Glucose Level 258 mg/dL (70-99) Calcium Level 9.0 mg/dL (8.5-10.1) Phosphorus Level 3.7 mg/dL (2.6-4.7) Magnesium Level 2.2 mg/dL (1.8-2.4) Laboratory Tests Test 02/13/21 12:18 02/13/21 17:54 02/14/21 00:10 02/14/21 05:39 Glucose (Fingerstick) 224 mg/dL (70-99) 218 mg/dL (70-99) 248 mg/dL (70-99) 232 mg/dL (70-99) Test 02/14/21 05:40 White Blood Count 8.1 x10^3/uL (4.0-11.0) Red Blood Count 3.91 x10^6/uL (4.30-5.70) Hemoglobin 11.7 g/dL (13.0-17.5) Hematocrit 35.5 % (39.0-53.0) Mean Corpuscular Volume 91 fL (79-100) Mean Corpuscular Hemoglobin 30 pg (25-35) Mean Corpuscular Hemoglobin Concent 33 g/dL (31-37) Red Cell Distribution Width 13.7 % (11.5-14.5) Platelet Count 225 x10^3/uL (140-400) Neutrophils (%) (Auto) 80 % (31-73) Lymphocytes (%) (Auto) 12 % (24-48) Monocytes (%) (Auto) 7 % (0-9) Eosinophils (%) (Auto) 1 % (0-3) Basophils (%) (Auto) 1 % (0-3) Neutrophils # (Auto) 6.5 x10^3/uL (1.8-7.7) Lymphocytes # (Auto) 0.9 x10^3/uL (1.0-4.8) Monocytes # (Auto) 0.5 x10^3/uL (0.0-1.1) Eosinophils # (Auto) 0.1 x10^3/uL (0.0-0.7) Basophils # (Auto) 0.0 x10^3/uL (0.0-0.2) Sodium Level 148 mmol/L (136-145) Potassium Level 4.7 mmol/L (3.5-5.1) Chloride Level 111 mmol/L (98-107) Carbon Dioxide Level 25 mmol/L (21-32) Anion Gap 12 (6-14) Blood Urea Nitrogen 18 mg/dL (8-26) Creatinine 1.0 mg/dL (0.7-1.3) Estimated GFR (Cockcroft-Gault) 92.2 Glucose Level 258 mg/dL (70-99) Calcium Level 9.0 mg/dL (8.5-10.1) Phosphorus Level 3.7 mg/dL (2.6-4.7) Magnesium Level 2.2 mg/dL (1.8-2.4) Comments IMPRESSION: Chest x-ray 02/13 1. Stable support lines and tubes. 2. Severe right upper lobe predominant bullous emphysema. 3. Stable right perihilar linear atelectasis or infiltrate superimposed on diffuse interstitial prominence and small pleural effusions. Impression . IMPRESSION: 1. Acute hypoxic respiratory failure multifactorial 2. Abnormal x-ray 3. Long history of tobaccoism. CT angiogram showed bullous emphysema in the upper lobes. 3. Acute kidney injury. 4. Leukocytosi 5. s/p Right occipital craniotomy with evacuation of intracerebral hematoma. 6. Encephalopathy, multifactorial 7. Uncontrolled hypertension CT head 02/13, discussed with Dr. Louie IMPRESSION: 1. Expected interval evolution of a right posterior temporal/occipital intrapare nchymal hematoma status post decompressive craniotomy. 2. Expected evolution of a small amount of subarachnoid and intraventricular clot. DATE OF SURGERY: 02/09/2021 PREOPERATIVE DIAGNOSIS: Right posterior temporoparietal occipital intracerebral hemorrhage with neurologic deterioration. POSTOPERATIVE DIAGNOSIS: Right posterior temporoparietal occipital intracerebral hemorrhage with neurologic deterioration. OPERATION PERFORMED: Right occipital craniotomy with evacuation of intracerebral hematoma. Plan . Updated 02/14 Discussed with RN, try to titrate sedation off Control blood pressure, patient started on Cardene, hydralazine Started on Catapres patch ABG chest x-ray noted Discussed with neurosurgery Neurosurgery is hopeful that patient will awaken Not ready for spontaneous trial Empiric antibiotics for fever Updated 02/13 Discussed with mother at the bedside, CT head pending, Continue current support Not ready for spontaneous breathing trial ABG noted Repeat chest x-ray in the a.m. Nutritional support Empiric antibiotics Maintain sedated for now MANJULA PADILLA MD Feb 14, 2021 08:54
--- NOTE | 2021-02-14 09:19 | PDOC ---
PROGRESS NOTES Date of Service: DATE: 02/14/21 TIME: 09:19 Chief Complaint Chief Complaint IMPRESSION Dizziness Large right temporo-occipital intraparenchymal bleed, most likely lobar hemorrhage from hypertension, consider venous sinus thrombosis, , aneurysmal bleed, Had craniotomy 02/09 evening Suspect aspiration, respiratory failure, hypertension, chronic obstructive pulmonary disease, improving acute kidney injury MORBID OBESITY History of Present Illness History of Present Illness 02/14/2021 POD #5 Right occipital craniotomy with evacuation of intracerebral hematoma sedated on vent Patient seen and examined at bedside Good response to IV Lasix Continue antibiotics per infectious disease Weaning ventilator and sedation as tolerated Hopeful extubation in the next few days Plan of care discussed with bedside nurse Expected interval evolution of a right posterior temporal/occipital intraparenchymal hematoma status post decompressive craniotomy Large right temporo-occipital intraparenchymal bleed, most likely lobar hemorrhage from hypertension, consider venous sinus thrombosis, less likely in this location, aneurysmal bleed, head trauma (also unlikely). Had craniotomy 02/09 evening Suspect of aspiration, respiratory failure, hypertension, chronic obstructive pulmonary disease, improving acute kidney injury cont Zosyn glucose uncontrolled add Lantus 35 MIN CC TIME 02/13/2021 POD #4 Right occipital craniotomy with evacuation of intracerebral hematoma sedated on vent Patient seen and examined at bedside Good response to IV Lasix Continue antibiotics per infectious disease Weaning ventilator and sedation as tolerated Hopeful extubation in the next few days Plan of care discussed with bedside nurse Expected interval evolution of a right posterior temporal/occipital intraparenchymal hematoma status post decompressive craniotomy Large right temporo-occipital intraparenchymal bleed, most likely lobar hemorrhage from hypertension, consider venous sinus thrombosis, less likely in this location, aneurysmal bleed, head trauma (also unlikely). Had craniotomy 02/09 evening Suspect of aspiration, respiratory failure, hypertension, chronic obstructive pulmonary disease, improving acute kidney injury cont Zosyn 35 MIN CC TIME 02/12/2021 Patient seen and examined at bedside Remains intubated and sedated Good response to IV Lasix yesterday had nearly 3 L out; will diurese again today Continue antibiotics per infectious disease Weaning ventilator and sedation as tolerated Hopeful extubation in the next few days Plan of care discussed with bedside nurse 02/11/2021 Patient seen and examined at bedside No major clinical changes overnight however this morning patient has largely increased amount of secretions Chest x-ray concerning for possible pneumonia, will consult ID who recommended starting Zosyn Otherwise he remains intubated and sedated We will follow subspecialist input Plan discussed with bedside RN 02/10/2021 Patient seen and examined at bedside Underwent craniotomy yesterday due to unresponsiveness in the late afternoon; was also intubated Continues to have a poor neurologic status Neurology and neurosurgery following Discussed plan of care with bedside nurse Patient is a 61-year-old male transferred for to the ICU overnight due to hypertensive emergency and intracranial hemorrhage. Patient's mother at bedside provides most the history. She reports that patient had been in his usual state of health until yesterday morning when he reported feeling tired and having a headache. Patient mother reports he normally gets up early and goes outside however this was not the case yesterday. With this headache he took BC powder and went back to bed. Patient's mother reports that he was in and out of bed throughout most of the afternoon. Says patient did not eat anything yesterday which is very unusual for him. Approximately 1130 last night she had the patient get up to go to the bathroom and heard him fall. He however is able to get up and returned to bed; unknown if he hit his head at this time. Patient again woke up around 2 AM and woke up his mother asking for orange juice and then proceeded to fall again, she does not think he hit his head at this time. He was taken to hospital and found to have a systolic blood pressure greater than [address] scan found to have an intracranial hemorrhage. Due to severity of his condition he was transferred here. Patient's mother reports she is not aware of any past medical history other than hypertension which he intermittently takes hydrochlorothiazide for. Vitals Vitals Vital Signs Date Time Temp Pulse Resp B/P (MAP) Pulse Ox O2 Delivery O2 Flow Rate FiO2 02/14/21 07:00 147/46 02/14/21 06:00 63 16 94 Ventilator 02/14/21 04:00 98.8 98.8 Physical Exam Physical Exam GENERAL: Sedated, orally intubated gentleman, not in distress. HEENT: Both pupils are round and reacting. No conjunctival lesion noticed. ETT/OGT + NECK: Rt IJ clean LUNGS: Clear. HEART: S1, S2 regular. No gallop or murmur. ABDOMEN: Soft, nontender, no organomegaly. EXTREMITIES: No edema, cyanosis. SKIN:no gen rash NEUROLOGIC: unable to assess General: Other (sedated) Lungs: Clear, Crackles Abdomen: Soft Extremities: No cyanosis Skin: Other (dressing C,D,I) Labs LABS Laboratory Tests Test 02/13/21 12:18 02/13/21 17:54 02/14/21 00:10 02/14/21 05:39 Glucose (Fingerstick) 224 mg/dL (70-99) 218 mg/dL (70-99) 248 mg/dL (70-99) 232 mg/dL (70-99) Test 02/14/21 05:40 White Blood Count 8.1 x10^3/uL (4.0-11.0) Red Blood Count 3.91 x10^6/uL (4.30-5.70) Hemoglobin 11.7 g/dL (13.0-17.5) Hematocrit 35.5 % (39.0-53.0) Mean Corpuscular Volume 91 fL (79-100) Mean Corpuscular Hemoglobin 30 pg (25-35) Mean Corpuscular Hemoglobin Concent 33 g/dL (31-37) Red Cell Distribution Width 13.7 % (11.5-14.5) Platelet Count 225 x10^3/uL (140-400) Neutrophils (%) (Auto) 80 % (31-73) Lymphocytes (%) (Auto) 12 % (24-48) Monocytes (%) (Auto) 7 % (0-9) Eosinophils (%) (Auto) 1 % (0-3) Basophils (%) (Auto) 1 % (0-3) Neutrophils # (Auto) 6.5 x10^3/uL (1.8-7.7) Lymphocytes # (Auto) 0.9 x10^3/uL (1.0-4.8) Monocytes # (Auto) 0.5 x10^3/uL (0.0-1.1) Eosinophils # (Auto) 0.1 x10^3/uL (0.0-0.7) Basophils # (Auto) 0.0 x10^3/uL (0.0-0.2) Sodium Level 148 mmol/L (136-145) Potassium Level 4.7 mmol/L (3.5-5.1) Chloride Level 111 mmol/L (98-107) Carbon Dioxide Level 25 mmol/L (21-32) Anion Gap 12 (6-14) Blood Urea Nitrogen 18 mg/dL (8-26) Creatinine 1.0 mg/dL (0.7-1.3) Estimated GFR (Cockcroft-Gault) 92.2 Glucose Level 258 mg/dL (70-99) Calcium Level 9.0 mg/dL (8.5-10.1) Phosphorus Level 3.7 mg/dL (2.6-4.7) Magnesium Level 2.2 mg/dL (1.8-2.4) Comment Review of Relevant I have reviewed the following items neela (where applicable) has been applied. Labs Laboratory Tests Test 02/12/21 12:01 02/12/21 18:01 02/13/21 00:07 02/13/21 05:00 Glucose (Fingerstick) 197 mg/dL (70-99) 212 mg/dL (70-99) 211 mg/dL (70-99) White Blood Count 7.8 x10^3/uL (4.0-11.0) Red Blood Count 3.77 x10^6/uL (4.30-5.70) Hemoglobin 11.4 g/dL (13.0-17.5) Hematocrit 34.5 % (39.0-53.0) Mean Corpuscular Volume 91 fL (79-100) Mean Corpuscular Hemoglobin 30 pg (25-35) Mean Corpuscular Hemoglobin Concent 33 g/dL (31-37) Red Cell Distribution Width 13.9 % (11.5-14.5) Platelet Count 213 x10^3/uL (140-400) Sodium Level 144 mmol/L (136-145) Potassium Level 4.7 mmol/L (3.5-5.1) Chloride Level 110 mmol/L (98-107) Carbon Dioxide Level 27 mmol/L (21-32) Anion Gap 7 (6-14) Blood Urea Nitrogen 26 mg/dL (8-26) Creatinine 1.2 mg/dL (0.7-1.3) Estimated GFR (Cockcroft-Gault) 74.7 Glucose Level 227 mg/dL (70-99) Calcium Level 9.2 mg/dL (8.5-10.1) Phosphorus Level 3.7 mg/dL (2.6-4.7) Magnesium Level 2.4 mg/dL (1.8-2.4) Test 02/13/21 05:41 02/13/21 08:00 02/13/21 12:18 02/13/21 17:54 Glucose (Fingerstick) 213 mg/dL (70-99) 224 mg/dL (70-99) 218 mg/dL (70-99) O2 Saturation 96 % (92-99) Arterial Blood pH 7.34 (7.35-7.45) Arterial Blood pCO2 at Patient Temp 43 mmHg (35-46) Arterial Blood pO2 at Patient Temp 92 mmHg (65-108) Arterial Blood HCO3 23 mmol/L (21-28) Arterial Blood Base Excess -3 mmol/L (-3-3) FiO2 50 Test 02/14/21 00:10 02/14/21 05:39 02/14/21 05:40 Glucose (Fingerstick) 248 mg/dL (70-99) 232 mg/dL (70-99) White Blood Count 8.1 x10^3/uL (4.0-11.0) Red Blood Count 3.91 x10^6/uL (4.30-5.70) Hemoglobin 11.7 g/dL (13.0-17.5) Hematocrit 35.5 % (39.0-53.0) Mean Corpuscular Volume 91 fL (79-100) Mean Corpuscular Hemoglobin 30 pg (25-35) Mean Corpuscular Hemoglobin Concent 33 g/dL (31-37) Red Cell Distribution Width 13.7 % (11.5-14.5) Platelet Count 225 x10^3/uL (140-400) Neutrophils (%) (Auto) 80 % (31-73) Lymphocytes (%) (Auto) 12 % (24-48) Monocytes (%) (Auto) 7 % (0-9) Eosinophils (%) (Auto) 1 % (0-3) Basophils (%) (Auto) 1 % (0-3) Neutrophils # (Auto) 6.5 x10^3/uL (1.8-7.7) Lymphocytes # (Auto) 0.9 x10^3/uL (1.0-4.8) Monocytes # (Auto) 0.5 x10^3/uL (0.0-1.1) Eosinophils # (Auto) 0.1 x10^3/uL (0.0-0.7) Basophils # (Auto) 0.0 x10^3/uL (0.0-0.2) Sodium Level 148 mmol/L (136-145) Potassium Level 4.7 mmol/L (3.5-5.1) Chloride Level 111 mmol/L (98-107) Carbon Dioxide Level 25 mmol/L (21-32) Anion Gap 12 (6-14) Blood Urea Nitrogen 18 mg/dL (8-26) Creatinine 1.0 mg/dL (0.7-1.3) Estimated GFR (Cockcroft-Gault) 92.2 Glucose Level 258 mg/dL (70-99) Calcium Level 9.0 mg/dL (8.5-10.1) Phosphorus Level 3.7 mg/dL (2.6-4.7) Magnesium Level 2.2 mg/dL (1.8-2.4) Laboratory Tests Test 02/13/21 12:18 02/13/21 17:54 02/14/21 00:10 02/14/21 05:39 Glucose (Fingerstick) 224 mg/dL (70-99) 218 mg/dL (70-99) 248 mg/dL (70-99) 232 mg/dL (70-99) Test 02/14/21 05:40 White Blood Count 8.1 x10^3/uL (4.0-11.0) Red Blood Count 3.91 x10^6/uL (4.30-5.70) Hemoglobin 11.7 g/dL (13.0-17.5) Hematocrit 35.5 % (39.0-53.0) Mean Corpuscular Volume 91 fL (79-100) Mean Corpuscular Hemoglobin 30 pg (25-35) Mean Corpuscular Hemoglobin Concent 33 g/dL (31-37) Red Cell Distribution Width 13.7 % (11.5-14.5) Platelet Count 225 x10^3/uL (140-400) Neutrophils (%) (Auto) 80 % (31-73) Lymphocytes (%) (Auto) 12 % (24-48) Monocytes (%) (Auto) 7 % (0-9) Eosinophils (%) (Auto) 1 % (0-3) Basophils (%) (Auto) 1 % (0-3) Neutrophils # (Auto) 6.5 x10^3/uL (1.8-7.7) Lymphocytes # (Auto) 0.9 x10^3/uL (1.0-4.8) Monocytes # (Auto) 0.5 x10^3/uL (0.0-1.1) Eosinophils # (Auto) 0.1 x10^3/uL (0.0-0.7) Basophils # (Auto) 0.0 x10^3/uL (0.0-0.2) Sodium Level 148 mmol/L (136-145) Potassium Level 4.7 mmol/L (3.5-5.1) Chloride Level 111 mmol/L (98-107) Carbon Dioxide Level 25 mmol/L (21-32) Anion Gap 12 (6-14) Blood Urea Nitrogen 18 mg/dL (8-26) Creatinine 1.0 mg/dL (0.7-1.3) Estimated GFR (Cockcroft-Gault) 92.2 Glucose Level 258 mg/dL (70-99) Calcium Level 9.0 mg/dL (8.5-10.1) Phosphorus Level 3.7 mg/dL (2.6-4.7) Magnesium Level 2.2 mg/dL (1.8-2.4) Microbiology 02/11/21 Blood Culture - Preliminary, Resulted NO GROWTH AFTER 2 DAYS 02/11/21 Gram Stain Evaluation - Final, Complete 02/11/21 Respiratory Culture - Final, Complete Medications Current Medications Nicardipine HCl 50 mg/Sodium Chloride 250 ml @ 12.5 mls/hr CONT PRN IV SEE I/O RECORD Last administered on 02/14/21at 06:58; Start 02/09/21 at 06:15 Labetalol HCl (Normodyne Iv Push) 10 mg PRN Q2HR PRN IVP HYPERTENSION Last administered on 02/14/21at 07:00; Start 02/09/21 at 06:15 Lorazepam (Ativan Inj) 2 mg 1X ONCE IVP Last administered on 02/09/21at 10:54; Start 02/09/21 at 10:45; Stop 02/09/21 at 10:46; Status DC Lorazepam (Ativan Inj) 2 mg 1X ONCE IVP Last administered on 02/09/21at 11:00; Start 02/09/21 at 11:00; Stop 02/09/21 at 11:01; Status DC Fentanyl Citrate (Fentanyl 2ml Vial) 25 mcg PRN Q2HR PRN IVP MODERATE TO SEVERE PAIN Last administered on 02/09/21at 13:37; Start 02/09/21 at 13:30 Info (Review Meds) 1 ea PRN 1X PRN MC SEE COMMENTS; Start 02/09/21 at 15:00 Acetaminophen (Tylenol Supp) 650 mg PRN Q6HRS PRN [place] FEVER > 100.5'F or 38'C; Start 02/09/21 at 15:00; Stop 02/11/21 at 21:12; Status DC Albuterol Sulfate (Ventolin Neb Soln) 2.5 mg PRN Q4HRS PRN NEB SHORTNESS OF BREATH; Start 02/09/21 at 15:15 Iohexol (Omnipaque 350 Mg/ml) 75 ml 1X ONCE IV Last administered on 02/09/21at 15:52; Start 02/09/21 at 15:30; Stop 02/09/21 at 15:35; Status DC Iohexol (Omnipaque 350 Mg/ml) 100 ml STK-MED ONCE .ROUTE ; Start 02/09/21 at 15:26; Stop 02/09/21 at 15:27; Status DC Info (CONTRAST GIVEN -- Rx MONITORING) 1 each PRN DAILY PRN MC SEE COMMENTS; Start 02/09/21 at 15:45; Stop 02/11/21 at 15:44; Status DC Propofol 100 ml @ As Directed STK-MED ONCE IV ; Start 02/09/21 at 15:51; Stop 02/09/21 at 15:51; Status DC Rocuronium [place] (Zemuron) 50 mg STK-MED ONCE .ROUTE ; Start 02/09/21 at 15:51; Stop 02/09/21 at 15:51; Status DC Lidocaine HCl (Lidocaine HCl 2% Abboject) 100 mg STK-MED ONCE .ROUTE ; Start 02/09/21 at 15:52; Stop 02/09/21 at 15:53; Status DC Propofol 100 ml @ 3.507 mls/ hr CONT PRN IV PER PROTOCOL Last administered on 02/14/21at 07:46; Start 02/09/21 at 16:15 Lidocaine HCl (Lidocaine HCl 2% Abboject) 100 mg 1X ONCE IV Last administered on 02/09/21 16:17; Start 02/09/21 at 16:15; Stop 02/09/21 at 16:17; Status DC Rocuronium [place] (Zemuron) 50 mg 1X ONCE IV Last administered on 02/09/21 16:17; Start 02/09/21 at 16:15; Stop 02/09/21 at 16:17; Status DC Rocuronium [place] (Zemuron) 100 mg STK-MED ONCE .ROUTE ; Start 02/09/21 at 16:31; Stop 02/09/21 at 16:32; Status DC Gelatin (Gelfoam Size 100) 1 each STK-MED ONCE .ROUTE Last administered on 02/09/21 17:49; Start 02/09/21 at 16:33; Stop 02/09/21 at 16:33; Status DC Bupivacaine HCl/ Epinephrine Bitart (Sensorcain-Epi 0.5%-1:[id number] Mpf) 30 ml STK-MED ONCE .ROUTE Last administered on 02/09/21 17:49; Start 02/09/21 at 16:33; Stop 02/09/21 at 16:33; Status DC Cellulose (Surgicel Hemostat 4x8) 1 each STK-MED ONCE .ROUTE Last administered on 02/09/21 18:38; Start 02/09/21 at 16:33; Stop 02/09/21 at 16:33; Status DC Thrombin 20,000 unit STK-MED ONCE TP Last administered on 02/09/21 17:49; Start 02/09/21 at 16:33; Stop 02/09/21 at 16:33; Status DC Fentanyl Citrate (Fentanyl 2ml Vial) 75 mcg 1X ONCE IVP Last administered on 02/09/21 16:45; Start 02/09/21 at 16:45; Stop 02/09/21 at 16:47; Status DC Propofol (Diprivan) 200 mg 1X ONCE IV ; Start 02/09/21 at 17:15; Stop 02/09/21 at 17:16; Status DC Lidocaine HCl (Lidocaine HCl 2% Abboject) 100 mg 1X ONCE IV ; Start 02/09/21 at 17:15; Stop 02/09/21 at 17:16; Status DC Rocuronium [place] (Zemuron) 50 mg 1X ONCE IV ; Start 02/09/21 at 17:15; Stop 02/09/21 at 17:16; Status DC Propofol 100 ml @ 0 mls/hr CONT PRN PRN IV SEDATION; Start 02/09/21 at 17:15; Stop 02/10/21 at 05:14; Status DC Cefazolin Sodium (Ancef) 1 gm STK-MED ONCE IVP ; Start 02/09/21 at 17:28; Stop 02/09/21 at 17:28; Status DC Fentanyl Citrate (Fentanyl 2ml Vial) 100 mcg STK-MED ONCE .ROUTE ; Start 02/09/21 at 17:43; Stop 02/09/21 at 17:43; Status DC Rocuronium [place] (Zemuron) 100 mg STK-MED ONCE .ROUTE ; Start 02/09/21 at 17:58; Stop 02/09/21 at 17:59; Status DC Vecuronium [place] (Norcuron Bolus) 10 mg STK-MED ONCE IV ; Start 02/09/21 at 18:49; Stop 02/09/21 at 18:50; Status DC Sodium Chloride (SODIUM CHLORIDE 20ml) 20 ml STK-MED ONCE IJ ; Start 02/09/21 at 18:50; Stop 02/09/21 at 18:50; Status DC Sevoflurane (Ultane) 90 ml STK-MED ONCE IH ; Start 02/09/21 at 19:20; Stop 02/09/21 at 19:21; Status DC Fentanyl Citrate 30 ml @ 2.5 mls/hr CONT PRN IV SEE PROTOCOL Last administered on 02/09/21at 23:40; Start 02/09/21 at 23:15; Stop 02/10/21 at 04:43; Status DC Fentanyl Citrate 55 ml @ 0 mls/hr CONT PRN IV SEE I/O Last administered on 02/13/21at 11:39; Start 02/10/21 at 05:00 Potassium Chloride/Dextrose/ Sod Cl 1,000 ml @ 80 mls/hr [id number] IV ; Start 02/10/21 at 09:00; Stop 02/10/21 at 13:21; Status DC Pantoprazole Sodium (PROTONIX VIAL for IV PUSH) 40 mg DAILYAC IVP Last administered on 02/14/21at 07:24; Start 02/10/21 at 09:00 Lidocaine HCl (Buffered Lidocaine 1%) 3 ml STK-MED ONCE .ROUTE ; Start 02/10/21 at 13:18; Stop 02/10/21 at 13:18; Status DC Sodium Chloride 1,000 ml @ 80 mls/hr [id number] IV Last administered on 02/12/21at 03:00; Start 02/10/21 at 13:30; Stop 02/12/21 at 15:36; Status DC Lidocaine HCl (Buffered Lidocaine 1%) 6 ml 1X ONCE INJ Last administered on 02/10/21at 13:57; Start 02/10/21 at 13:45; Stop 02/10/21 at 13:46; Status DC Potassium Chloride/Water 100 ml @ 100 mls/hr Q1H IV Last administered on 02/11/21at 10:07; Start 02/11/21 at 08:00; Stop 02/11/21 at 09:59; Status DC Piperacillin Sod/ Tazobactam Sod 3.375 gm/Sodium Chloride 50 ml @ 100 mls/hr Q6HRS IV Last administered on 02/14/21at 07:12; Start 02/11/21 at 09:00 Info (Tpn Per Pharmacy) 1 each PRN DAILY PRN MC SEE COMMENTS Last administered on 02/13/21at 13:33; Start 02/11/21 at 11:15 Sodium Chloride 90 meq/Potassium Chloride 50 meq/ Potassium Phosphate 13.6 mmol/Magnesium Sulfate 10 meq/ Calcium Gluconate 10 meq/ Multivitamins 5 ml/Zinc/Copper/ Manganese/ Selenium 1 ml/ Total Parenteral Nutrition/Amino Acids/Dextrose 1,512 ml @ 63 mls/hr TPN CONT IV Last administered on 02/11/21at 22:32; Start 02/11/21 at 22:00; Stop 02/12/21 at 21:59; Status DC Furosemide (Lasix) 20 mg 1X ONCE IVP Last administered on 02/11/21at 15:11; Start 02/11/21 at 15:30; Stop 02/11/21 at 15:31; Status DC Furosemide (Lasix) 20 mg 1X ONCE IVP Last administered on 02/11/21at 17:00; Start 02/11/21 at 17:00; Stop 02/11/21 at 17:01; Status DC Midazolam HCl 100 ml @ 1 mls/hr CONT PRN IV SEE PROTOCOL Last administered on 02/13/21at 20:58; Start 02/11/21 at 19:30 Acetaminophen (Tylenol Supp) 650 mg PRN Q6HRS PRN [place] MILD PAIN / TEMP > 100.3'F; Start 02/11/21 at 21:15 Sodium Chloride 80 meq/Potassium Chloride 50 meq/ Potassium Phosphate 13.6 mmol/Magnesium Sulfate 6 meq/ Calcium Gluconate 10 meq/ Multivitamins 5 ml/Zinc/Copper/ Manganese/ Selenium 1 ml/ Total Parenteral Nutrition/Amino Acids/Dextrose 1,512 ml @ 63 mls/hr TPN CONT IV Last administered on 02/12/21at 22:09; Start 02/12/21 at 22:00; Stop 02/13/21 at 21:59; Status DC Furosemide (Lasix) 40 mg 1X ONCE IVP Last administered on 02/12/21at 12:44; Start 02/12/21 at 12:30; Stop 02/12/21 at 12:31; Status DC Insulin Human Lispro (HumaLOG) 0-5 UNITS Q6HRS SQ Last administered on 02/14/21at 07:14; Start 02/12/21 at 12:00 Dextrose (Dextrose 50%-Water Syringe) 12.5 gm PRN Q15MIN PRN IV SEE COMMENTS; Start 02/12/21 at 12:15 Clonidine HCl (Catapres Tts-3) 1 patch WEEKLY TD Last administered on 02/13/21at 11:47; Start 02/13/21 at 11:00 Sodium Chloride 80 meq/Potassium Chloride 50 meq/ Potassium Phosphate 13.6 mmol/Magnesium Sulfate 6 meq/ Calcium Gluconate 10 meq/ Multivitamins 5 ml/Zinc/Copper/ Manganese/ Selenium 1 ml/ Total Parenteral Nutrition/Amino Acids/Dextrose 1,512 ml @ 63 mls/hr TPN CONT IV Last administered on 02/13/21at 21:42; Start 02/13/21 at 22:00; Stop 02/14/21 at 21:59 Vitals/I & O Vital Sign - Last 24 Hours 02/13/21 02/13/21 02/13/21 02/13/21 10:00 10:01 11:00 11:39 Pulse 65 65 Resp 16 16 B/P (MAP) 126/89 (101) 130/84 (99) Pulse Ox 99 99 99 99 O2 Delivery Ventilator Ventilator Ventilator 02/13/21 02/13/21 02/13/21 02/13/21 12:00 12:00 12:00 12:09 Temp 97.9 97.9 Pulse 65 Resp 16 B/P (MAP) 136/86 (103) Pulse Ox 99 99 O2 Delivery Ventilator Mechanical Ventilator 02/13/21 02/13/21 02/13/21 02/13/21 12:22 13:00 14:00 14:05 Pulse 65 65 Resp 17 16 B/P (MAP) 152/100 (117) 166/84 (111) Pulse Ox 100 98 98 100 O2 Delivery Ventilator Ventilator Ventilator Ventilator 02/13/21 02/13/21 02/13/21 02/13/21 15:00 15:01 15:40 16:00 Pulse 66 70 Resp 16 B/P (MAP) 168/88 (114) 170/81 Pulse Ox 99 100 O2 Delivery Ventilator Ventilator Mechanical Ventilator 02/13/21 02/13/21 02/13/21 02/13/21 16:00 16:00 17:00 17:25 Temp 98.5 98.5 Pulse 64 66 Resp 16 16 B/P (MAP) 169/86 (113) 160/80 (106) Pulse Ox 99 99 100 O2 Delivery Ventilator Ventilator Ventilator 02/13/21 02/13/21 02/13/21 02/13/21 17:51 18:00 19:00 20:00 Pulse 67 66 64 Resp 16 17 B/P (MAP) 188/93 179/88 (118) 188/88 (121) Pulse Ox 99 100 O2 Delivery Ventilator Ventilator Mechanical Ventilator 02/13/21 02/13/21 02/13/21 02/13/21 20:00 20:00 20:14 21:00 Temp 99.8 99.8 Pulse 66 67 Resp 19 17 B/P (MAP) 196/91 (126) 179/87 (117) Pulse Ox 100 100 100 O2 Delivery Ventilator Ventilator Ventilator 02/13/21 02/13/21 02/13/21 02/13/21 21:08 22:00 22:45 23:00 Pulse 66 64 68 Resp 22 22 B/P (MAP) 203/93 194/89 (124) 175/78 (110) Pulse Ox 99 92 93 O2 Delivery Ventilator Ventilator Ventilator 02/13/21 02/14/21 02/14/21 02/14/21 23:59 00:00 00:00 00:07 Temp 100.0 100.0 Pulse 68 68 Resp 20 B/P (MAP) 165/76 (105) 165/76 Pulse Ox 94 O2 Delivery Mechanical Ventilator Ventilator 02/14/21 02/14/21 02/14/21 02/14/21 00:47 00:53 02:00 03:00 Pulse 70 64 66 Resp 21 21 19 B/P (MAP) 174/78 (110) 163/75 (104) 167/75 (105) Pulse Ox 95 94 95 96 O2 Delivery Ventilator Ventilator Ventilator Ventilator 02/14/21 02/14/21 02/14/21 02/14/21 04:00 04:00 04:00 05:00 Temp 98.8 98.8 Pulse 64 64 Resp 19 16 B/P (MAP) 166/74 (104) 163/72 (102) Pulse Ox 96 96 O2 Delivery Ventilator Mechanical Ventilator Ventilator 02/14/21 02/14/21 06:00 07:00 Pulse 63 Resp 16 B/P (MAP) 158/68 (98) 147/46 Pulse Ox 94 O2 Delivery Ventilator Intake and Output 02/13/21 02/13/21 02/14/21 15:00 23:00 07:00 Intake Total 50 ml 1205 ml 1704.8 ml Output Total 775 ml 1640 ml 1030 ml Balance -725 ml -435 ml 674.8 ml Justicifation of Admission Dx: Justifications for Admission: Justification of Admission Dx: Yes Acute Hemorrhagic Stroke: Acute Hemorrhagic Stroke LESLI ALCOCER MD Feb 14, 2021 09:19
--- NOTE | 2021-02-14 09:25 | PDOC ---
PROGRESS NOTES Date of Service DATE: 02/14/21 TIME: 09:23 Assessment Large right temporo-occipital intraparenchymal bleed, most likely lobar hemorrhage from hypertension, consider venous sinus thrombosis, less likely in this location, aneurysmal bleed, head trauma (also unlikely). CT angiogram was negative. Follow-up head CT 02/13 showing expected evolution of the hemorrhage. Had craniotomy 02/09 evening Suspected aspiration, respiratory failure, hypertension, chronic obstructive pulmonary disease, improving acute kidney injury Plan As per neurosurgery Try to wean sedation, did not do well 02/13 Subjective None Objective Vital Signs Date Time Temp Pulse Resp B/P (MAP) Pulse Ox O2 Delivery O2 Flow Rate FiO2 02/14/21 08:00 Mechanical Ventilator 02/14/21 08:00 02/14/21 06:00 63 16 94 02/14/21 04:00 98.8 98.8 Intake and Output 02/14/21 07:00 Intake Total 2959.8 ml Output Total 3445 ml Balance -485.2 ml Intake IV Total 2909.8 ml Other 50 ml Output Urine Total 3245 ml Gastric Drainage Total 200 ml PHYSICAL EXAM Sedated on vent, not responsive Pupils small, minimally reactive No spontaneous eye movements CN: no focal findings. Muscle tone: normal. Muscle strength: no response to pain DTR: 0+ Plantar reflex: silent Gait: not examined Sensory exam: not cooperative. Cerebellar: not cooperative Review of Relevant I have reviewed the following items neela (where applicable) has been applied. Labs Laboratory Tests Test 02/12/21 12:01 02/12/21 18:01 02/13/21 00:07 02/13/21 05:00 Glucose (Fingerstick) 197 mg/dL (70-99) 212 mg/dL (70-99) 211 mg/dL (70-99) White Blood Count 7.8 x10^3/uL (4.0-11.0) Red Blood Count 3.77 x10^6/uL (4.30-5.70) Hemoglobin 11.4 g/dL (13.0-17.5) Hematocrit 34.5 % (39.0-53.0) Mean Corpuscular Volume 91 fL (79-100) Mean Corpuscular Hemoglobin 30 pg (25-35) Mean Corpuscular Hemoglobin Concent 33 g/dL (31-37) Red Cell Distribution Width 13.9 % (11.5-14.5) Platelet Count 213 x10^3/uL (140-400) Sodium Level 144 mmol/L (136-145) Potassium Level 4.7 mmol/L (3.5-5.1) Chloride Level 110 mmol/L (98-107) Carbon Dioxide Level 27 mmol/L (21-32) Anion Gap 7 (6-14) Blood Urea Nitrogen 26 mg/dL (8-26) Creatinine 1.2 mg/dL (0.7-1.3) Estimated GFR (Cockcroft-Gault) 74.7 Glucose Level 227 mg/dL (70-99) Calcium Level 9.2 mg/dL (8.5-10.1) Phosphorus Level 3.7 mg/dL (2.6-4.7) Magnesium Level 2.4 mg/dL (1.8-2.4) Test 02/13/21 05:41 02/13/21 08:00 02/13/21 12:18 02/13/21 17:54 Glucose (Fingerstick) 213 mg/dL (70-99) 224 mg/dL (70-99) 218 mg/dL (70-99) O2 Saturation 96 % (92-99) Arterial Blood pH 7.34 (7.35-7.45) Arterial Blood pCO2 at Patient Temp 43 mmHg (35-46) Arterial Blood pO2 at Patient Temp 92 mmHg (65-108) Arterial Blood HCO3 23 mmol/L (21-28) Arterial Blood Base Excess -3 mmol/L (-3-3) FiO2 50 Test 02/14/21 00:10 02/14/21 05:39 02/14/21 05:40 Glucose (Fingerstick) 248 mg/dL (70-99) 232 mg/dL (70-99) White Blood Count 8.1 x10^3/uL (4.0-11.0) Red Blood Count 3.91 x10^6/uL (4.30-5.70) Hemoglobin 11.7 g/dL (13.0-17.5) Hematocrit 35.5 % (39.0-53.0) Mean Corpuscular Volume 91 fL (79-100) Mean Corpuscular Hemoglobin 30 pg (25-35) Mean Corpuscular Hemoglobin Concent 33 g/dL (31-37) Red Cell Distribution Width 13.7 % (11.5-14.5) Platelet Count 225 x10^3/uL (140-400) Neutrophils (%) (Auto) 80 % (31-73) Lymphocytes (%) (Auto) 12 % (24-48) Monocytes (%) (Auto) 7 % (0-9) Eosinophils (%) (Auto) 1 % (0-3) Basophils (%) (Auto) 1 % (0-3) Neutrophils # (Auto) 6.5 x10^3/uL (1.8-7.7) Lymphocytes # (Auto) 0.9 x10^3/uL (1.0-4.8) Monocytes # (Auto) 0.5 x10^3/uL (0.0-1.1) Eosinophils # (Auto) 0.1 x10^3/uL (0.0-0.7) Basophils # (Auto) 0.0 x10^3/uL (0.0-0.2) Sodium Level 148 mmol/L (136-145) Potassium Level 4.7 mmol/L (3.5-5.1) Chloride Level 111 mmol/L (98-107) Carbon Dioxide Level 25 mmol/L (21-32) Anion Gap 12 (6-14) Blood Urea Nitrogen 18 mg/dL (8-26) Creatinine 1.0 mg/dL (0.7-1.3) Estimated GFR (Cockcroft-Gault) 92.2 Glucose Level 258 mg/dL (70-99) Calcium Level 9.0 mg/dL (8.5-10.1) Phosphorus Level 3.7 mg/dL (2.6-4.7) Magnesium Level 2.2 mg/dL (1.8-2.4) Laboratory Tests Test 02/13/21 12:18 02/13/21 17:54 02/14/21 00:10 02/14/21 05:39 Glucose (Fingerstick) 224 mg/dL (70-99) 218 mg/dL (70-99) 248 mg/dL (70-99) 232 mg/dL (70-99) Test 02/14/21 05:40 White Blood Count 8.1 x10^3/uL (4.0-11.0) Red Blood Count 3.91 x10^6/uL (4.30-5.70) Hemoglobin 11.7 g/dL (13.0-17.5) Hematocrit 35.5 % (39.0-53.0) Mean Corpuscular Volume 91 fL (79-100) Mean Corpuscular Hemoglobin 30 pg (25-35) Mean Corpuscular Hemoglobin Concent 33 g/dL (31-37) Red Cell Distribution Width 13.7 % (11.5-14.5) Platelet Count 225 x10^3/uL (140-400) Neutrophils (%) (Auto) 80 % (31-73) Lymphocytes (%) (Auto) 12 % (24-48) Monocytes (%) (Auto) 7 % (0-9) Eosinophils (%) (Auto) 1 % (0-3) Basophils (%) (Auto) 1 % (0-3) Neutrophils # (Auto) 6.5 x10^3/uL (1.8-7.7) Lymphocytes # (Auto) 0.9 x10^3/uL (1.0-4.8) Monocytes # (Auto) 0.5 x10^3/uL (0.0-1.1) Eosinophils # (Auto) 0.1 x10^3/uL (0.0-0.7) Basophils # (Auto) 0.0 x10^3/uL (0.0-0.2) Sodium Level 148 mmol/L (136-145) Potassium Level 4.7 mmol/L (3.5-5.1) Chloride Level 111 mmol/L (98-107) Carbon Dioxide Level 25 mmol/L (21-32) Anion Gap 12 (6-14) Blood Urea Nitrogen 18 mg/dL (8-26) Creatinine 1.0 mg/dL (0.7-1.3) Estimated GFR (Cockcroft-Gault) 92.2 Glucose Level 258 mg/dL (70-99) Calcium Level 9.0 mg/dL (8.5-10.1) Phosphorus Level 3.7 mg/dL (2.6-4.7) Magnesium Level 2.2 mg/dL (1.8-2.4) Microbiology 02/11/21 Blood Culture - Preliminary, Resulted NO GROWTH AFTER 2 DAYS 02/11/21 Gram Stain Evaluation - Final, Complete 02/11/21 Respiratory Culture - Final, Complete Medications Current Medications Nicardipine HCl 50 mg/Sodium Chloride 250 ml @ 12.5 mls/hr CONT PRN IV SEE I/O RECORD Last administered on 02/14/21at 06:58; Start 02/09/21 at 06:15 Labetalol HCl (Normodyne Iv Push) 10 mg PRN Q2HR PRN IVP HYPERTENSION Last administered on 02/14/21at 07:00; Start 02/09/21 at 06:15 Lorazepam (Ativan Inj) 2 mg 1X ONCE IVP Last administered on 02/09/21at 10:54; Start 02/09/21 at 10:45; Stop 02/09/21 at 10:46; Status DC Lorazepam (Ativan Inj) 2 mg 1X ONCE IVP Last administered on 02/09/21at 11:00; Start 02/09/21 at 11:00; Stop 02/09/21 at 11:01; Status DC Fentanyl Citrate (Fentanyl 2ml Vial) 25 mcg PRN Q2HR PRN IVP MODERATE TO SEVERE PAIN Last administered on 02/09/21at 13:37; Start 02/09/21 at 13:30 Info (Review Meds) 1 ea PRN 1X PRN MC SEE COMMENTS; Start 02/09/21 at 15:00 Acetaminophen (Tylenol Supp) 650 mg PRN Q6HRS PRN SD FEVER > 100.5'F or 38'C; Start 02/09/21 at 15:00; Stop 02/11/21 at 21:12; Status DC Albuterol Sulfate (Ventolin Neb Soln) 2.5 mg PRN Q4HRS PRN NEB SHORTNESS OF BREATH; Start 02/09/21 at 15:15 Iohexol (Omnipaque 350 Mg/ml) 75 ml 1X ONCE IV Last administered on 02/09/21at 15:52; Start 02/09/21 at 15:30; Stop 02/09/21 at 15:35; Status DC Iohexol (Omnipaque 350 Mg/ml) 100 ml STK-MED ONCE .ROUTE ; Start 02/09/21 at 15:26; Stop 02/09/21 at 15:27; Status DC Info (CONTRAST GIVEN -- Rx MONITORING) 1 each PRN DAILY PRN MC SEE COMMENTS; Start 02/09/21 at 15:45; Stop 02/11/21 at 15:44; Status DC Propofol 100 ml @ As Directed STK-MED ONCE IV ; Start 02/09/21 at 15:51; Stop 02/09/21 at 15:51; Status DC Rocuronium Priddy (Zemuron) 50 mg STK-MED ONCE .ROUTE ; Start 02/09/21 at 15:51; Stop 02/09/21 at 15:51; Status DC Lidocaine HCl (Lidocaine HCl 2% Abboject) 100 mg STK-MED ONCE .ROUTE ; Start 02/09/21 at 15:52; Stop 02/09/21 at 15:53; Status DC Propofol 100 ml @ 3.507 mls/ hr CONT PRN IV PER PROTOCOL Last administered on 02/14/21at 07:46; Start 02/09/21 at 16:15 Lidocaine HCl (Lidocaine HCl 2% Abboject) 100 mg 1X ONCE IV Last administered on 02/09/21at 16:17; Start 02/09/21 at 16:15; Stop 02/09/21 at 16:17; Status DC Rocuronium Priddy (Zemuron) 50 mg 1X ONCE IV Last administered on 02/09/21at 16 :17; Start 02/09/21 at 16:15; Stop 02/09/21 at 16:17; Status DC Rocuronium Priddy (Zemuron) 100 mg STK-MED ONCE .ROUTE ; Start 02/09/21 at 16:31; Stop 02/09/21 at 16:32; Status DC Gelatin (Gelfoam Size 100) 1 each STK-MED ONCE .ROUTE Last administered on 02/09/21at 17:49; Start 02/09/21 at 16:33; Stop 02/09/21 at 16:33; Status DC Bupivacaine HCl/ Epinephrine Bitart (Sensorcain-Epi 0.5%-1:[id number] Mpf) 30 ml STK-MED ONCE .ROUTE Last administered on 02/09/21at 17:49; Start 02/09/21 at 16:33; Stop 02/09/21 at 16:33; Status DC Cellulose (Surgicel Hemostat 4x8) 1 each STK-MED ONCE .ROUTE Last administered on 02/09/21at 18:38; Start 02/09/21 at 16:33; Stop 02/09/21 at 16:33; Status DC Thrombin 20,000 unit STK-MED ONCE TP Last administered on 02/09/21at 17:49; Start 02/09/21 at 16:33; Stop 02/09/21 at 16:33; Status DC Fentanyl Citrate (Fentanyl 2ml Vial) 75 mcg 1X ONCE IVP Last administered on 02/09/21at 16:45; Start 02/09/21 at 16:45; Stop 02/09/21 at 16:47; Status DC Propofol (Diprivan) 200 mg 1X ONCE IV ; Start 02/09/21 at 17:15; Stop 02/09/21 at 17:16; Status DC Lidocaine HCl (Lidocaine HCl 2% Abboject) 100 mg 1X ONCE IV ; Start 02/09/21 at 17:15; Stop 02/09/21 at 17:16; Status DC Rocuronium Priddy (Zemuron) 50 mg 1X ONCE IV ; Start 02/09/21 at 17:15; Stop 02/09/21 at 17:16; Status DC Propofol 100 ml @ 0 mls/hr CONT PRN PRN IV SEDATION; Start 02/09/21 at 17:15; Stop 02/10/21 at 05:14; Status DC Cefazolin Sodium (Ancef) 1 gm STK-MED ONCE IVP ; Start 02/09/21 at 17:28; Stop 02/09/21 at 17:28; Status DC Fentanyl Citrate (Fentanyl 2ml Vial) 100 mcg STK-MED ONCE .ROUTE ; Start 02/09/21 at 17:43; Stop 02/09/21 at 17:43; Status DC Rocuronium Priddy (Zemuron) 100 mg STK-MED ONCE .ROUTE ; Start 02/09/21 at 17:58; Stop 02/09/21 at 17:59; Status DC Vecuronium Priddy (Norcuron Bolus) 10 mg STK-MED ONCE IV ; Start 02/09/21 at 18:49; Stop 02/09/21 at 18:50; Status DC Sodium Chloride (SODIUM CHLORIDE 20ml) 20 ml STK-MED ONCE IJ ; Start 02/09/21 at 18:50; Stop 02/09/21 at 18:50; Status DC Sevoflurane (Ultane) 90 ml STK-MED ONCE IH ; Start 02/09/21 at 19:20; Stop 02/09/21 at 19:21; Status DC Fentanyl Citrate 30 ml @ 2.5 mls/hr CONT PRN IV SEE PROTOCOL Last administered on 02/09/21at 23:40; Start 02/09/21 at 23:15; Stop 02/10/21 at 04:43; Status DC Fentanyl Citrate 55 ml @ 0 mls/hr CONT PRN IV SEE I/O Last administered on 02/13/21at 11:39; Start 02/10/21 at 05:00 Potassium Chloride/Dextrose/ Sod Cl 1,000 ml @ 80 mls/hr [id number] IV ; Start 02/10/21 at 09:00; Stop 02/10/21 at 13:21; Status DC Pantoprazole Sodium (PROTONIX VIAL for IV PUSH) 40 mg DAILYAC IVP Last administered on 02/14/21at 07:24; Start 02/10/21 at 09:00 Lidocaine HCl (Buffered Lidocaine 1%) 3 ml STK-MED ONCE .ROUTE ; Start 02/10/21 at 13:18; Stop 02/10/21 at 13:18; Status DC Sodium Chloride 1,000 ml @ 80 mls/hr [id number] IV Last administered on 02/12/21at 03:00; Start 02/10/21 at 13:30; Stop 02/12/21 at 15:36; Status DC Lidocaine HCl (Buffered Lidocaine 1%) 6 ml 1X ONCE INJ Last administered on 02/10/21at 13:57; Start 02/10/21 at 13:45; Stop 02/10/21 at 13:46; Status DC Potassium Chloride/Water 100 ml @ 100 mls/hr Q1H IV Last administered on 02/11/21at 10:07; Start 02/11/21 at 08:00; Stop 02/11/21 at 09:59; Status DC Piperacillin Sod/ Tazobactam Sod 3.375 gm/Sodium Chloride 50 ml @ 100 mls/hr Q6HRS IV Last administered on 02/14/21at 07:12; Start 02/11/21 at 09:00 Info (Tpn Per Pharmacy) 1 each PRN DAILY PRN MC SEE COMMENTS Last administered on 02/13/21at 13:33; Start 02/11/21 at 11:15 Sodium Chloride 90 meq/Potassium Chloride 50 meq/ Potassium Phosphate 13.6 mmol/Magnesium Sulfate 10 meq/ Calcium Gluconate 10 meq/ Multivitamins 5 ml/Zinc/Copper/ Manganese/ Selenium 1 ml/ Total Parenteral Nutrition/Amino Acids/Dextrose 1,512 ml @ 63 mls/hr TPN CONT IV Last administered on 02/11/21at 22:32; Start 02/11/21 at 22:00; Stop 02/12/21 at 21:59; Status DC Furosemide (Lasix) 20 mg 1X ONCE IVP Last administered on 02/11/21at 15:11; Start 02/11/21 at 15:30; Stop 02/11/21 at 15:31; Status DC Furosemide (Lasix) 20 mg 1X ONCE IVP Last administered on 02/11/21at 17:00; Start 02/11/21 at 17:00; Stop 02/11/21 at 17:01; Status DC Midazolam HCl 100 ml @ 1 mls/hr CONT PRN IV SEE PROTOCOL Last administered on 02/13/21at 20:58; Start 02/11/21 at 19:30 Acetaminophen (Tylenol Supp) 650 mg PRN Q6HRS PRN SD MILD PAIN / TEMP > 100.3'F; Start 02/11/21 at 21:15 Sodium Chloride 80 meq/Potassium Chloride 50 meq/ Potassium Phosphate 13.6 mmol/Magnesium Sulfate 6 meq/ Calcium Gluconate 10 meq/ Multivitamins 5 ml/Zinc/Copper/ Manganese/ Selenium 1 ml/ Total Parenteral Nutrition/Amino Acids/Dextrose 1,512 ml @ 63 mls/hr TPN CONT IV Last administered on 02/12/21at 22:09; Start 02/12/21 at 22:00; Stop 02/13/21 at 21:59; Status DC Furosemide (Lasix) 40 mg 1X ONCE IVP Last administered on 02/12/21at 12:44; Start 02/12/21 at 12:30; Stop 02/12/21 at 12:31; Status DC Insulin Human Lispro (HumaLOG) 0-5 UNITS Q6HRS SQ Last administered on 02/14/21at 07:14; Start 02/12/21 at 12:00 Dextrose (Dextrose 50%-Water Syringe) 12.5 gm PRN Q15MIN PRN IV SEE COMMENTS; Start 02/12/21 at 12:15 Clonidine HCl (Catapres Tts-3) 1 patch WEEKLY TD Last administered on 02/13/21at 11:47; Start 02/13/21 at 11:00 Sodium Chloride 80 meq/Potassium Chloride 50 meq/ Potassium Phosphate 13.6 mmol/Magnesium Sulfate 6 meq/ Calcium Gluconate 10 meq/ Multivitamins 5 ml/Zinc/Copper/ Manganese/ Selenium 1 ml/ Total Parenteral Nutrition/Amino Acids/Dextrose 1,512 ml @ 63 mls/hr TPN CONT IV Last administered on 02/13/21at 21:42; Start 02/13/21 at 22:00; Stop 02/14/21 at 21:59 Vitals/I & O Vital Sign - Last 24 Hours 02/13/21 02/13/21 02/13/21 02/13/21 10:00 10:01 11:00 11:39 Pulse 65 65 Resp 16 16 B/P (MAP) 126/89 (101) 130/84 (99) Pulse Ox 99 99 99 99 O2 Delivery Ventilator Ventilator Ventilator 02/13/21 02/13/21 02/13/21 02/13/21 12:00 12:00 12:00 12:09 Temp 97.9 97.9 Pulse 65 Resp 16 B/P (MAP) 136/86 (103) Pulse Ox 99 99 O2 Delivery Ventilator Mechanical Ventilator 02/13/21 02/13/21 02/13/21 02/13/21 12:22 13:00 14:00 14:05 Pulse 65 65 Resp 17 16 B/P (MAP) 152/100 (117) 166/84 (111) Pulse Ox 100 98 98 100 O2 Delivery Ventilator Ventilator Ventilator Ventilator 02/13/21 02/13/21 02/13/21 02/13/21 15:00 15:01 15:40 16:00 Pulse 66 70 Resp 16 B/P (MAP) 168/88 (114) 170/81 Pulse Ox 99 100 O2 Delivery Ventilator Ventilator Mechanical Ventilator 02/13/21 02/13/21 02/13/21 02/13/21 16:00 16:00 17:00 17:25 Temp 98.5 98.5 Pulse 64 66 Resp 16 16 B/P (MAP) 169/86 (113) 160/80 (106) Pulse Ox 99 99 100 O2 Delivery Ventilator Ventilator Ventilator 02/13/21 02/13/21 02/13/21 02/13/21 17:51 18:00 19:00 20:00 Pulse 67 66 64 Resp 16 17 B/P (MAP) 188/93 179/88 (118) 188/88 (121) Pulse Ox 99 100 O2 Delivery Ventilator Ventilator Mechanical Ventilator 02/13/21 02/13/21 02/13/21 02/13/21 20:00 20:00 20:14 21:00 Temp 99.8 99.8 Pulse 66 67 Resp 19 17 B/P (MAP) 196/91 (126) 179/87 (117) Pulse Ox 100 100 100 O2 Delivery Ventilator Ventilator Ventilator 02/13/21 02/13/21 02/13/21 02/13/21 21:08 22:00 22:45 23:00 Pulse 66 64 68 Resp 22 22 B/P (MAP) 203/93 194/89 (124) 175/78 (110) Pulse Ox 99 92 93 O2 Delivery Ventilator Ventilator Ventilator 02/13/21 02/14/21 02/14/21 02/14/21 23:59 00:00 00:00 00:07 Temp 100.0 100.0 Pulse 68 68 Resp 20 B/P (MAP) 165/76 (105) 165/76 Pulse Ox 94 O2 Delivery Mechanical Ventilator Ventilator 02/14/21 02/14/21 02/14/21 02/14/21 00:47 00:53 02:00 03:00 Pulse 70 64 66 Resp 21 21 19 B/P (MAP) 174/78 (110) 163/75 (104) 167/75 (105) Pulse Ox 95 94 95 96 O2 Delivery Ventilator Ventilator Ventilator Ventilator 02/14/21 02/14/21 02/14/21 02/14/21 04:00 04:00 04:00 05:00 Temp 98.8 98.8 Pulse 64 64 Resp 19 16 B/P (MAP) 166/74 (104) 163/72 (102) Pulse Ox 96 96 O2 Delivery Ventilator Mechanical Ventilator Ventilator 02/14/21 02/14/21 02/14/21 02/14/21 06:00 07:00 08:00 08:00 Pulse 63 Resp 16 B/P (MAP) 158/68 (98) 147/46 Pulse Ox 94 O2 Delivery Ventilator Mechanical Ventilator Intake and Output 02/13/21 02/13/21 02/14/21 15:00 23:00 07:00 Intake Total 50 ml 1205 ml 1704.8 ml Output Total 775 ml 1640 ml 1030 ml Balance -725 ml -435 ml 674[address] HEAD WITHOUT CONTRAST, 02/13/2021. HISTORY: Intracranial hemorrhage. TECHNIQUE: Computed tomography of the head was performed without intravenous contrast. One or more of the following individualized dose reduction techniques were utilized for this examination: 1. Automated exposure control. 2. Adjustment of the mA and/or kV according to patient size. 3. Use of iterative reconstruction technique. COMPARISON: 02/10/2021. FINDINGS: An intraparenchymal hemorrhage versus hemorrhagic transformation of an infarct throughout the right posterior temporal and occipital lobes spans 5.3 x 4.8 cm and has evolved mildly in the interval. Pneumocephalus associated with overlying right occipital craniotomy has resolved. There is mild mass effect on the occipital horn of the right lateral ventricle, not clearly changed. A small amount of sulcal subarachnoid hemorrhage on the left has evolved. Small amount of intraventricular clot persists at least on the left. There is mild to moderate chronic microangiopathic white matter change elsewhere. There is no hydrocephalus. There is a small mucus retention cyst in the right maxillary sinus. The orbits are unremarkable. The temporal bones are unremarkable. The calvarium reveals no suspicious lesions. Scalp skin warren remain in place. IMPRESSION: 1. Expected interval evolution of a right posterior temporal/occipital intraparenchymal hematoma status post decompressive craniotomy. 2. Expected evolution of a small amount of subarachnoid and intraventricular clot. Justicifation of Admission Dx: Justifications for Admission: Justification of Admission Dx: Yes Acute Hemorrhagic Stroke: Acute Hemorrhagic Stroke EITAN LORENZO MD Feb 14, 2021 09:25
[2021-02-14] MEDS: TPN PER PHARMACY MC PRN ×2 (10:05→14:28)
--- NOTE | 2021-02-14 10:05 | NUR ---
Pharmacy TPN Dosing Note S: COOPER CHAVEZ is a 61 year old M Currently receiving Central Continuous TPN started 02/11/21 B:Pertinent PMH: ILEUS, UNABLE TO START TUBE FEEDS Height: 6 feet, 2 inches Weight: 112.9 kg Current diet: NPO LABS: Sodium: 148 Potassium: 4.7 Chloride: 111 Calcium: 9.0 Corrected Calcium: 9.48 Magnesium: 2.2 CO2: 25 SCr: 1 Glucose: 248, 232, 258 Albumin: 3.4 AST: 17 ALT: 21 TPN FORMULA: TPN TYPE: Central Continuous AMINO ACIDS: 60 gm DEXTROSE: 195 gm LIPIDS: 0 gm POTASSIUM ACETATE: 50 mEq POTASSIUM PHOSPHATE: 13.6 mmol MAGNESIUM: 6 mEq CALCIUM: 10 mEq MULTIPLE VITAMIN: 5 ml TRACE ELEMENTS: 1 ml TPN PLAN: -Serum sodium and chloride trending up. Remove NaCl, change KCl to KAC. -Other electrolytes appear WNL and stable. -On propofol at 50 mcg/kg/min - continue TPN with no lipids. -BMP, mag, phos tomorrow. R: Continue TPN @ current rate and with above formula. Will monitor electrolytes, glucose, and tolerance to TPN. ODELL SALINAS [facility], 02/14/21 [id number]
--- NOTE | 2021-02-14 10:13 | PDOC ---
Infectious Disease Note Subjective: Subjective pt is sedated on vent Vital Signs: Vital Signs Vital Signs Date Time Temp Pulse Resp B/P (MAP) Pulse Ox O2 Delivery O2 Flow Rate FiO2 02/14/21 09:00 63 20 142/68 (92) 93 Ventilator 02/14/21 08:00 98.1 98.1 Physical Exam: PHYSICAL EXAM GENERAL: Sedated, orally intubated gentleman, not in distress. HEENT: Both pupils are round and reacting. No conjunctival lesion noticed. ETT/OGT + NECK: Rt IJ clean LUNGS: Clear. HEART: S1, S2 regular. No gallop or murmur. ABDOMEN: Soft, nontender, no organomegaly. EXTREMITIES: No edema, cyanosis. SKIN:no gen rash NEUROLOGIC: unable to assess Medications: Inpatient Meds: Medications reviewed. Labs: Lab Laboratory Tests Test 02/13/21 12:18 02/13/21 17:54 02/14/21 00:10 02/14/21 05:39 Glucose (Fingerstick) 224 mg/dL (70-99) 218 mg/dL (70-99) 248 mg/dL (70-99) 232 mg/dL (70-99) Test 02/14/21 05:40 White Blood Count 8.1 x10^3/uL (4.0-11.0) Red Blood Count 3.91 x10^6/uL (4.30-5.70) Hemoglobin 11.7 g/dL (13.0-17.5) Hematocrit 35.5 % (39.0-53.0) Mean Corpuscular Volume 91 fL (79-100) Mean Corpuscular Hemoglobin 30 pg (25-35) Mean Corpuscular Hemoglobin Concent 33 g/dL (31-37) Red Cell Distribution Width 13.7 % (11.5-14.5) Platelet Count 225 x10^3/uL (140-400) Neutrophils (%) (Auto) 80 % (31-73) Lymphocytes (%) (Auto) 12 % (24-48) Monocytes (%) (Auto) 7 % (0-9) Eosinophils (%) (Auto) 1 % (0-3) Basophils (%) (Auto) 1 % (0-3) Neutrophils # (Auto) 6.5 x10^3/uL (1.8-7.7) Lymphocytes # (Auto) 0.9 x10^3/uL (1.0-4.8) Monocytes # (Auto) 0.5 x10^3/uL (0.0-1.1) Eosinophils # (Auto) 0.1 x10^3/uL (0.0-0.7) Basophils # (Auto) 0.0 x10^3/uL (0.0-0.2) Sodium Level 148 mmol/L (136-145) Potassium Level 4.7 mmol/L (3.5-5.1) Chloride Level 111 mmol/L (98-107) Carbon Dioxide Level 25 mmol/L (21-32) Anion Gap 12 (6-14) Blood Urea Nitrogen 18 mg/dL (8-26) Creatinine 1.0 mg/dL (0.7-1.3) Estimated GFR (Cockcroft-Gault) 92.2 Glucose Level 258 mg/dL (70-99) Calcium Level 9.0 mg/dL (8.5-10.1) Phosphorus Level 3.7 mg/dL (2.6-4.7) Magnesium Level 2.2 mg/dL (1.8-2.4) Objective: Assessment: 1. Fever.Improving 2. Suspected aspiration.sputum NRF,GS GNR,GPCs 3. Encephalopathy. 4. Intracranial bleed with mass effect, status post craniotomy and hematoma evacuation. 5. Respiratory failure. 6. Hypertension. 7. Chronic obstructive pulmonary disease. 8. MARVIN improved Plan: Plan of Care cont Zosyn Monitor labs and cults f/u CT head reviewed cont supportive care D/W RAMU ANDERSON MD Feb 14, 2021 10:13
[2021-02-14] MEDS: fentaNYL HIGH DOSE PCA 55 ML IV PRN (10:16)
--- NOTE | 2021-02-14 10:26 | PDOC ---
Renal-Progress Notes Subjective Notes Notes NO ACUTE CHANGES History of Present Illness Hx of present illness STABLE Vitals Vitals Vital Signs Date Time Temp Pulse Resp B/P (MAP) Pulse Ox O2 Delivery O2 Flow Rate FiO2 02/14/21 10:16 93 02/14/21 10:00 61 20 145/66 (92) Ventilator 02/14/21 08:00 98.1 98.1 Weight Weight [ ] I.O. Intake and Output Intake and Output 02/14/21 07:00 Intake Total 2959.8 ml Output Total 3445 ml Balance -485.2 ml Intake IV Total 2909.8 ml Other 50 ml Output Urine Total 3245 ml Gastric Drainage Total 200 ml Labs Labs Laboratory Tests Test 02/13/21 12:18 02/13/21 17:54 02/14/21 00:10 02/14/21 05:39 Glucose (Fingerstick) 224 mg/dL (70-99) 218 mg/dL (70-99) 248 mg/dL (70-99) 232 mg/dL (70-99) Test 02/14/21 05:40 White Blood Count 8.1 x10^3/uL (4.0-11.0) Red Blood Count 3.91 x10^6/uL (4.30-5.70) Hemoglobin 11.7 g/dL (13.0-17.5) Hematocrit 35.5 % (39.0-53.0) Mean Corpuscular Volume 91 fL (79-100) Mean Corpuscular Hemoglobin 30 pg (25-35) Mean Corpuscular Hemoglobin Concent 33 g/dL (31-37) Red Cell Distribution Width 13.7 % (11.5-14.5) Platelet Count 225 x10^3/uL (140-400) Neutrophils (%) (Auto) 80 % (31-73) Lymphocytes (%) (Auto) 12 % (24-48) Monocytes (%) (Auto) 7 % (0-9) Eosinophils (%) (Auto) 1 % (0-3) Basophils (%) (Auto) 1 % (0-3) Neutrophils # (Auto) 6.5 x10^3/uL (1.8-7.7) Lymphocytes # (Auto) 0.9 x10^3/uL (1.0-4.8) Monocytes # (Auto) 0.5 x10^3/uL (0.0-1.1) Eosinophils # (Auto) 0.1 x10^3/uL (0.0-0.7) Basophils # (Auto) 0.0 x10^3/uL (0.0-0.2) Sodium Level 148 mmol/L (136-145) Potassium Level 4.7 mmol/L (3.5-5.1) Chloride Level 111 mmol/L (98-107) Carbon Dioxide Level 25 mmol/L (21-32) Anion Gap 12 (6-14) Blood Urea Nitrogen 18 mg/dL (8-26) Creatinine 1.0 mg/dL (0.7-1.3) Estimated GFR (Cockcroft-Gault) 92.2 Glucose Level 258 mg/dL (70-99) Calcium Level 9.0 mg/dL (8.5-10.1) Phosphorus Level 3.7 mg/dL (2.6-4.7) Magnesium Level 2.2 mg/dL (1.8-2.4) Micro Micro Microbiology 02/11/21 Blood Culture - Preliminary, Resulted NO GROWTH AFTER 2 DAYS 02/11/21 Gram Stain Evaluation - Final, Complete 02/11/21 Respiratory Culture - Final, Complete Review of Systems Constitutional: yes: unresponsive Physical Exam General Appearance: no apparent distress Skin: warm Heart: S1S2 Abdomen: soft, distension, other (NO BS) Extremities: pulses present Neurology: other (SEDATED) Assessment Assessment IMP MARVIN - RESOLVED WITH CR OF 1.0 HYPOKALEMIA-CORRECTED HYPERNATREMIA ACUTE RESP FAILURE PROB ASP PNA ICB-S/P CRANIOTOMY AND HEMATOMA EVACATION ACUTE RESP FAILURE HX OF COPD ILEUS LABILE HTN PLAN CONTROL BP GOAL SBP LESS THAN 140 CARDENE GTT RESUMED WILL ADD PRN HYDRALAZINE CONT CATAPRESS PATCH CONT TPN REPLACE ELECTROLYTES NEEDED ANTIBIOTICS VENT SUPPORT WILL FOLLOW ESTEBAN PERKINS MD Feb 14, 2021 10:26
[2021-02-14 10:48] LABS: FIO2 ABG 50% VENT
--- NOTE | 2021-02-14 14:52 | NUR ---
SS following up with discharge planning. SS reviewed pt chart and discussed with pt RN. Pt is currently on the vent at 50%. Pt on Propofol. Cardine drip. Pt on IV Zosyn. TPN. Self pay. Med Assist following. SS will continue to follow for discharge planning.
--- NOTE | 2021-02-14 14:54 | PDOC ---
PROGRESS NOTES Date of Service DATE: 02/14/21 TIME: 14:51 Subjective Subjective POD #5 Right occipital craniotomy with evacuation of intracerebral hematoma remains sedated on vent, weaning sedation, back on Cardene no changes Objective Objective Vital Signs Date Time Temp Pulse Resp B/P (MAP) Pulse Ox O2 Delivery O2 Flow Rate FiO2 02/14/21 14:13 60 151/76 02/14/21 13:08 95 Ventilator 02/14/21 11:58 97.7 21 97.7 Intake and Output 02/14/21 06:59 Intake Total 2959.8 ml Output Total 3445 ml Balance -485.2 ml Intake IV Total 2909.8 ml Other 50 ml Output Urine Total 3245 ml Gastric Drainage Total 200 ml Physical Exam Neck: Other Neuro: Other (pinpoint pupils, sedated, on vent) Skin: Other (dressing C,D,I) Plan Plan of Care weaning sedation BP control wean from vent per pulmonary D/W RN D/W Mother Comment Review of Relevant I have reviewed the following items neela (where applicable) has been applied. Labs Laboratory Tests Test 02/12/21 18:01 02/13/21 00:07 02/13/21 05:00 02/13/21 05:41 Glucose (Fingerstick) 212 mg/dL (70-99) 211 mg/dL (70-99) 213 mg/dL (70-99) White Blood Count 7.8 x10^3/uL (4.0-11.0) Red Blood Count 3.77 x10^6/uL (4.30-5.70) Hemoglobin 11.4 g/dL (13.0-17.5) Hematocrit 34.5 % (39.0-53.0) Mean Corpuscular Volume 91 fL (79-100) Mean Corpuscular Hemoglobin 30 pg (25-35) Mean Corpuscular Hemoglobin Concent 33 g/dL (31-37) Red Cell Distribution Width 13.9 % (11.5-14.5) Platelet Count 213 x10^3/uL (140-400) Sodium Level 144 mmol/L (136-145) Potassium Level 4.7 mmol/L (3.5-5.1) Chloride Level 110 mmol/L (98-107) Carbon Dioxide Level 27 mmol/L (21-32) Anion Gap 7 (6-14) Blood Urea Nitrogen 26 mg/dL (8-26) Creatinine 1.2 mg/dL (0.7-1.3) Estimated GFR (Cockcroft-Gault) 74.7 Glucose Level 227 mg/dL (70-99) Calcium Level 9.2 mg/dL (8.5-10.1) Phosphorus Level 3.7 mg/dL (2.6-4.7) Magnesium Level 2.4 mg/dL (1.8-2.4) Test 02/13/21 08:00 02/13/21 12:18 02/13/21 17:54 02/14/21 00:10 O2 Saturation 96 % (92-99) Arterial Blood pH 7.34 (7.35-7.45) Arterial Blood pCO2 at Patient Temp 43 mmHg (35-46) Arterial Blood pO2 at Patient Temp 92 mmHg (65-108) Arterial Blood HCO3 23 mmol/L (21-28) Arterial Blood Base Excess -3 mmol/L (-3-3) FiO2 50 Glucose (Fingerstick) 224 mg/dL (70-99) 218 mg/dL (70-99) 248 mg/dL (70-99) Test 02/14/21 05:39 02/14/21 05:40 02/14/21 08:00 02/14/21 11:22 Glucose (Fingerstick) 232 mg/dL (70-99) 236 mg/dL (70-99) White Blood Count 8.1 x10^3/uL (4.0-11.0) Red Blood Count 3.91 x10^6/uL (4.30-5.70) Hemoglobin 11.7 g/dL (13.0-17.5) Hematocrit 35.5 % (39.0-53.0) Mean Corpuscular Volume 91 fL (79-100) Mean Corpuscular Hemoglobin 30 pg (25-35) Mean Corpuscular Hemoglobin Concent 33 g/dL (31-37) Red Cell Distribution Width 13.7 % (11.5-14.5) Platelet Count 225 x10^3/uL (140-400) Neutrophils (%) (Auto) 80 % (31-73) Lymphocytes (%) (Auto) 12 % (24-48) Monocytes (%) (Auto) 7 % (0-9) Eosinophils (%) (Auto) 1 % (0-3) Basophils (%) (Auto) 1 % (0-3) Neutrophils # (Auto) 6.5 x10^3/uL (1.8-7.7) Lymphocytes # (Auto) 0.9 x10^3/uL (1.0-4.8) Monocytes # (Auto) 0.5 x10^3/uL (0.0-1.1) Eosinophils # (Auto) 0.1 x10^3/uL (0.0-0.7) Basophils # (Auto) 0.0 x10^3/uL (0.0-0.2) Sodium Level 148 mmol/L (136-145) Potassium Level 4.7 mmol/L (3.5-5.1) Chloride Level 111 mmol/L (98-107) Carbon Dioxide Level 25 mmol/L (21-32) Anion Gap 12 (6-14) Blood Urea Nitrogen 18 mg/dL (8-26) Creatinine 1.0 mg/dL (0.7-1.3) Estimated GFR (Cockcroft-Gault) 92.2 Glucose Level 258 mg/dL (70-99) Calcium Level 9.0 mg/dL (8.5-10.1) Phosphorus Level 3.7 mg/dL (2.6-4.7) Magnesium Level 2.2 mg/dL (1.8-2.4) O2 Saturation 92 % (92-99) Arterial Blood pH 7.36 (7.35-7.45) Arterial Blood pCO2 at Patient Temp 43 mmHg (35-46) Arterial Blood pO2 at Patient Temp 70 mmHg (65-108) Arterial Blood HCO3 23 mmol/L (21-28) Arterial Blood Base Excess -2 mmol/L (-3-3) FiO2 50% vent Laboratory Tests Test 02/13/21 17:54 02/14/21 00:10 02/14/21 05:39 02/14/21 05:40 Glucose (Fingerstick) 218 mg/dL (70-99) 248 mg/dL (70-99) 232 mg/dL (70-99) White Blood Count 8.1 x10^3/uL (4.0-11.0) Red Blood Count 3.91 x10^6/uL (4.30-5.70) Hemoglobin 11.7 g/dL (13.0-17.5) Hematocrit 35.5 % (39.0-53.0) Mean Corpuscular Volume 91 fL (79-100) Mean Corpuscular Hemoglobin 30 pg (25-35) Mean Corpuscular Hemoglobin Concent 33 g/dL (31-37) Red Cell Distribution Width 13.7 % (11.5-14.5) Platelet Count 225 x10^3/uL (140-400) Neutrophils (%) (Auto) 80 % (31-73) Lymphocytes (%) (Auto) 12 % (24-48) Monocytes (%) (Auto) 7 % (0-9) Eosinophils (%) (Auto) 1 % (0-3) Basophils (%) (Auto) 1 % (0-3) Neutrophils # (Auto) 6.5 x10^3/uL (1.8-7.7) Lymphocytes # (Auto) 0.9 x10^3/uL (1.0-4.8) Monocytes # (Auto) 0.5 x10^3/uL (0.0-1.1) Eosinophils # (Auto) 0.1 x10^3/uL (0.0-0.7) Basophils # (Auto) 0.0 x10^3/uL (0.0-0.2) Sodium Level 148 mmol/L (136-145) Potassium Level 4.7 mmol/L (3.5-5.1) Chloride Level 111 mmol/L (98-107) Carbon Dioxide Level 25 mmol/L (21-32) Anion Gap 12 (6-14) Blood Urea Nitrogen 18 mg/dL (8-26) Creatinine 1.0 mg/dL (0.7-1.3) Estimated GFR (Cockcroft-Gault) 92.2 Glucose Level 258 mg/dL (70-99) Calcium Level 9.0 mg/dL (8.5-10.1) Phosphorus Level 3.7 mg/dL (2.6-4.7) Magnesium Level 2.2 mg/dL (1.8-2.4) Test 02/14/21 08:00 02/14/21 11:22 O2 Saturation 92 % (92-99) Arterial Blood pH 7.36 (7.35-7.45) Arterial Blood pCO2 at Patient Temp 43 mmHg (35-46) Arterial Blood pO2 at Patient Temp 70 mmHg (65-108) Arterial Blood HCO3 23 mmol/L (21-28) Arterial Blood Base Excess -2 mmol/L (-3-3) FiO2 50% vent Glucose (Fingerstick) 236 mg/dL (70-99) Microbiology 02/11/21 Blood Culture - Preliminary, Resulted NO GROWTH AFTER 2 DAYS 02/11/21 Gram Stain Evaluation - Final, Complete 02/11/21 Respiratory Culture - Final, Complete Medications Current Medications Nicardipine HCl 50 mg/Sodium Chloride 250 ml @ 12.5 mls/hr CONT PRN IV SEE I/O RECORD Last administered on 02/14/21at 10:14; Start 02/09/21 at 06:15 Labetalol HCl (Normodyne Iv Push) 10 mg PRN Q2HR PRN IVP HYPERTENSION Last administered on 02/14/21at 14:13; Start 02/09/21 at 06:15 Lorazepam (Ativan Inj) 2 mg 1X ONCE IVP Last administered on 02/09/21at 10:54; Start 02/09/21 at 10:45; Stop 02/09/21 at 10:46; Status DC Lorazepam (Ativan Inj) 2 mg 1X ONCE IVP Last administered on 02/09/21at 11:00; Start 02/09/21 at 11:00; Stop 02/09/21 at 11:01; Status DC Fentanyl Citrate (Fentanyl 2ml Vial) 25 mcg PRN Q2HR PRN IVP MODERATE TO SEVERE PAIN Last administered on 02/09/21at 13:37; Start 02/09/21 at 13:30 Info (Review Meds) 1 ea PRN 1X PRN MC SEE COMMENTS; Start 02/09/21 at 15:00 Acetaminophen (Tylenol Supp) 650 mg PRN Q6HRS PRN [place] FEVER > 100.5'F or 38'C; Start 02/09/21 at 15:00; Stop 02/11/21 at 21:12; Status DC Albuterol Sulfate (Ventolin Neb Soln) 2.5 mg PRN Q4HRS PRN NEB SHORTNESS OF BREATH; Start 02/09/21 at 15:15 Iohexol (Omnipaque 350 Mg/ml) 75 ml 1X ONCE IV Last administered on 02/09/21at 15:52; Start 02/09/21 at 15:30; Stop 02/09/21 at 15:35; Status DC Iohexol (Omnipaque 350 Mg/ml) 100 ml STK-MED ONCE .ROUTE ; Start 02/09/21 at 15:26; Stop 02/09/21 at 15:27; Status DC Info (CONTRAST GIVEN -- Rx MONITORING) 1 each PRN DAILY PRN MC SEE COMMENTS; Start 02/09/21 at 15:45; Stop 02/11/21 at 15:44; Status DC Propofol 100 ml @ As Directed STK-MED ONCE IV ; Start 02/09/21 at 15:51; Stop 02/09/21 at 15:51; Status DC Rocuronium [place] (Zemuron) 50 mg STK-MED ONCE .ROUTE ; Start 02/09/21 at 15:51; Stop 02/09/21 at 15:51; Status DC Lidocaine HCl (Lidocaine HCl 2% Abboject) 100 mg STK-MED ONCE .ROUTE ; Start 02/09/21 at 15:52; Stop 02/09/21 at 15:53; Status DC Propofol 100 ml @ 3.507 mls/ hr CONT PRN IV PER PROTOCOL Last administered on 02/14/21at 07:46; Start 02/09/21 at 16:15 Lidocaine HCl (Lidocaine HCl 2% Abboject) 100 mg 1X ONCE IV Last administered on 02/09/21at 16:17; Start 02/09/21 at 16:15; Stop 02/09/21 at 16:17; Status DC Rocuronium [place] (Zemuron) 50 mg 1X ONCE IV Last administered on 02/09/21at 16:17; Start 02/09/21 at 16:15; Stop 02/09/21 at 16:17; Status DC Rocuronium [place] (Zemuron) 100 mg STK-MED ONCE .ROUTE ; Start 02/09/21 at 16:31; Stop 02/09/21 at 16:32; Status DC Gelatin (Gelfoam Size 100) 1 each STK-MED ONCE .ROUTE Last administered on 02/09/21at 17:49; Start 02/09/21 at 16:33; Stop 02/09/21 at 16:33; Status DC Bupivacaine HCl/ Epinephrine Bitart (Sensorcain-Epi 0.5%-1:149535 Mpf) 30 ml STK-MED ONCE .ROUTE Last administered on 02/09/21at 17:49; Start 02/09/21 at 16:33; Stop 02/09/21 at 16:33; Status DC Cellulose (Surgicel Hemostat 4x8) 1 each STK-MED ONCE .ROUTE Last administered on 02/09/21at 18:38; Start 02/09/21 at 16:33; Stop 02/09/21 at 16:33; Status DC Thrombin 20,000 unit STK-MED ONCE TP Last administered on 02/09/21at 17:49; Start 02/09/21 at 16:33; Stop 02/09/21 at 16:33; Status DC Fentanyl Citrate (Fentanyl 2ml Vial) 75 mcg 1X ONCE IVP Last administered on 02/09/21at 16:45; Start 02/09/21 at 16:45; Stop 02/09/21 at 16:47; Status DC Propofol (Diprivan) 200 mg 1X ONCE IV ; Start 02/09/21 at 17:15; Stop 02/09/21 at 17:16; Status DC Lidocaine HCl (Lidocaine HCl 2% Abboject) 100 mg 1X ONCE IV ; Start 02/09/21 at 17:15; Stop 02/09/21 at 17:16; Status DC Rocuronium [place] (Zemuron) 50 mg 1X ONCE IV ; Start 02/09/21 at 17:15; Stop 02/09/21 at 17:16; Status DC Propofol 100 ml @ 0 mls/hr CONT PRN PRN IV SEDATION; Start 02/09/21 at 17:15; Stop 02/10/21 at 05:14; Status DC Cefazolin Sodium (Ancef) 1 gm STK-MED ONCE IVP ; Start 02/09/21 at 17:28; Stop 02/09/21 at 17:28; Status DC Fentanyl Citrate (Fentanyl 2ml Vial) 100 mcg STK-MED ONCE .ROUTE ; Start 02/09/21 at 17:43; Stop 02/09/21 at 17:43; Status DC Rocuronium [place] (Zemuron) 100 mg STK-MED ONCE .ROUTE ; Start 02/09/21 at 17:58; Stop 02/09/21 at 17:59; Status DC Vecuronium [place] (Norcuron Bolus) 10 mg STK-MED ONCE IV ; Start 02/09/21 at 18:49; Stop 02/09/21 at 18:50; Status DC Sodium Chloride (SODIUM CHLORIDE 20ml) 20 ml STK-MED ONCE IJ ; Start 02/09/21 at 18:50; Stop 02/09/21 at 18:50; Status DC Sevoflurane (Ultane) 90 ml STK-MED ONCE IH ; Start 02/09/21 at 19:20; Stop 02/09/21 at 19:21; Status DC Fentanyl Citrate 30 ml @ 2.5 mls/hr CONT PRN IV SEE PROTOCOL Last administered on 02/09/21at 23:40; Start 02/09/21 at 23:15; Stop 02/10/21 at 04:43; Status DC Fentanyl Citrate 55 ml @ 0 mls/hr CONT PRN IV SEE I/O Last administered on 02/14/21at 10:16; Start 02/10/21 at 05:00 Potassium Chloride/Dextrose/ Sod Cl 1,000 ml @ 80 mls/hr [id number] IV ; Start 02/10/21 at 09:00; Stop 02/10/21 at 13:21; Status DC Pantoprazole Sodium (PROTONIX VIAL for IV PUSH) 40 mg DAILYAC IVP Last administered on 02/14/21at 07:24; Start 02/10/21 at 09:00 Lidocaine HCl (Buffered Lidocaine 1%) 3 ml STK-MED ONCE .ROUTE ; Start 02/10/21 at 13:18; Stop 02/10/21 at 13:18; Status DC Sodium Chloride 1,000 ml @ 80 mls/hr [id number] IV Last administered on 02/12/21at 03:00; Start 02/10/21 at 13:30; Stop 02/12/21 at 15:36; Status DC Lidocaine HCl (Buffered Lidocaine 1%) 6 ml 1X ONCE INJ Last administered on 02/10/21at 13:57; Start 02/10/21 at 13:45; Stop 02/10/21 at 13:46; Status DC Potassium Chloride/Water 100 ml @ 100 mls/hr Q1H IV Last administered on 02/11/21at 10:07; Start 02/11/21 at 08:00; Stop 02/11/21 at 09:59; Status DC Piperacillin Sod/ Tazobactam Sod 3.375 gm/Sodium Chloride 50 ml @ 100 mls/hr Q6HRS IV Last administered on 02/14/21at 11:37; Start 02/11/21 at 09:00 Info (Tpn Per Pharmacy) 1 each PRN DAILY PRN MC SEE COMMENTS Last administered on 02/14/21at 14:28; Start 02/11/21 at 11:15 Sodium Chloride 90 meq/Potassium Chloride 50 meq/ Potassium Phosphate 13.6 mmol/Magnesium Sulfate 10 meq/ Calcium Gluconate 10 meq/ Multivitamins 5 ml/Zinc/Copper/ Manganese/ Selenium 1 ml/ Total Parenteral Nutrition/Amino Acids/Dextrose 1,512 ml @ 63 mls/hr TPN CONT IV Last administered on 02/11/21at 22:32; Start 02/11/21 at 22:00; Stop 02/12/21 at 21:59; Status DC Furosemide (Lasix) 20 mg 1X ONCE IVP Last administered on 02/11/21at 15:11; Start 02/11/21 at 15:30; Stop 02/11/21 at 15:31; Status DC Furosemide (Lasix) 20 mg 1X ONCE IVP Last administered on 02/11/21at 17:00; Start 02/11/21 at 17:00; Stop 02/11/21 at 17:01; Status DC Midazolam HCl 100 ml @ 1 mls/hr CONT PRN IV SEE PROTOCOL Last administered on 02/13/21at 20:58; Start 02/11/21 at 19:30 Acetaminophen (Tylenol Supp) 650 mg PRN Q6HRS PRN [place] MILD PAIN / TEMP > 100.3'F; Start 02/11/21 at 21:15 Sodium Chloride 80 meq/Potassium Chloride 50 meq/ Potassium Phosphate 13.6 mmol/Magnesium Sulfate 6 meq/ Calcium Gluconate 10 meq/ Multivitamins 5 ml/Zinc/Copper/ Manganese/ Selenium 1 ml/ Total Parenteral Nutrition/Amino Acids/Dextrose 1,512 ml @ 63 mls/hr TPN CONT IV Last administered on 02/12/21at 22:09; Start 02/12/21 at 22:00; Stop 02/13/21 at 21:59; Status DC Furosemide (Lasix) 40 mg 1X ONCE IVP Last administered on 02/12/21at 12:44; Start 02/12/21 at 12:30; Stop 02/12/21 at 12:31; Status DC Insulin Human Lispro (HumaLOG) 0-5 UNITS Q6HRS SQ Last administered on 02/14/21at 11:53; Start 02/12/21 at 12:00 Dextrose (Dextrose 50%-Water Syringe) 12.5 gm PRN Q15MIN PRN IV SEE COMMENTS; Start 02/12/21 at 12:15 Clonidine HCl (Catapres Tts-3) 1 patch WEEKLY TD Last administered on 02/13/21at 11:47; Start 02/13/21 at 11:00 Sodium Chloride 80 meq/Potassium Chloride 50 meq/ Potassium Phosphate 13.6 mmol/Magnesium Sulfate 6 meq/ Calcium Gluconate 10 meq/ Multivitamins 5 ml/Zinc/Copper/ Manganese/ Selenium 1 ml/ Total Parenteral Nutrition/Amino Acids/Dextrose 1,512 ml @ 63 mls/hr TPN CONT IV Last administered on 02/13/21at 21:42; Start 02/13/21 at 22:00; Stop 02/14/21 at 21:59 Potassium Acetate 50 meq/Potassium Phosphate 13.6 mmol/Magnesium Sulfate 6 meq/ Calcium Gluconate 10 meq/ Multivitamins 5 ml/Zinc/Copper/ Manganese/ Selenium 1 ml/ Total Parenteral Nutrition/Amino Acids/Dextrose 1,512 ml @ 63 mls/hr TPN CONT IV ; Start 02/14/21 at 22:00; Stop 02/15/21 at 21:59 Insulin Glargine (Lantus Syringe) 10 unit QHS SQ ; Start 02/14/21 at 21:00 Vitals/I & O Vital Sign - Last 24 Hours 02/13/21 02/13/21 02/13/21 02/13/21 15:00 15:01 15:40 16:00 Pulse 66 70 Resp 16 B/P (MAP) 168/88 (114) 170/81 Pulse Ox 99 100 O2 Delivery Ventilator Ventilator Mechanical Ventilator 02/13/21 02/13/21 02/13/21 02/13/21 16:00 16:00 17:00 17:25 Temp 98.5 98.5 Pulse 64 66 Resp 16 16 B/P (MAP) 169/86 (113) 160/80 (106) Pulse Ox 99 99 100 O2 Delivery Ventilator Ventilator Ventilator 02/13/21 02/13/21 02/13/21 02/13/21 17:51 18:00 19:00 20:00 Pulse 67 66 64 Resp 16 17 B/P (MAP) 188/93 179/88 (118) 188/88 (121) Pulse Ox 99 100 O2 Delivery Ventilator Ventilator Mechanical Ventilator 02/13/21 02/13/21 02/13/21 02/13/21 20:00 20:00 20:14 21:00 Temp 99.8 99.8 Pulse 66 67 Resp 19 17 B/P (MAP) 196/91 (126) 179/87 (117) Pulse Ox 100 100 100 O2 Delivery Ventilator Ventilator Ventilator 02/13/21 02/13/21 02/13/21 02/13/21 21:08 22:00 22:45 23:00 Pulse 66 64 68 Resp 22 22 B/P (MAP) 203/93 194/89 (124) 175/78 (110) Pulse Ox 99 92 93 O2 Delivery Ventilator Ventilator Ventilator 02/13/21 02/14/21 02/14/21 02/14/21 23:59 00:00 00:00 00:07 Temp 100.0 100.0 Pulse 68 68 Resp 20 B/P (MAP) 165/76 (105) 165/76 Pulse Ox 94 O2 Delivery Mechanical Ventilator Ventilator 02/14/21 02/14/21 02/14/21 02/14/21 00:47 00:53 02:00 03:00 Pulse 70 64 66 Resp 21 21 19 B/P (MAP) 174/78 (110) 163/75 (104) 167/75 (105) Pulse Ox 95 94 95 96 O2 Delivery Ventilator Ventilator Ventilator Ventilator 02/14/21 02/14/21 02/14/21 02/14/21 04:00 04:00 04:00 05:00 Temp 98.8 98.8 Pulse 64 64 Resp 19 16 B/P (MAP) 166/74 (104) 163/72 (102) Pulse Ox 96 96 O2 Delivery Ventilator Mechanical Ventilator Ventilator 02/14/21 02/14/21 02/14/21 02/14/21 06:00 07:00 07:00 08:00 Pulse 63 63 Resp 16 16 B/P (MAP) 158/68 (98) 147/46 146/66 (92) Pulse Ox 94 95 O2 Delivery Ventilator Ventilator 02/14/21 02/14/21 02/14/21 02/14/21 08:00 08:00 09:00 09:15 Temp 98.1 98.1 Pulse 63 63 Resp 26 20 B/P (MAP) 142/74 (96) 142/68 (92) Pulse Ox 94 93 95 O2 Delivery Ventilator Mechanical Ventilator Ventilator Ventilator 02/14/21 02/14/21 02/14/21 02/14/21 10:00 10:16 10:46 11:00 Pulse 61 60 Resp 20 21 B/P (MAP) 145/66 (92) 150/78 (102) Pulse Ox 93 93 93 93 O2 Delivery Ventilator Ventilator 02/14/21 02/14/21 02/14/21 02/14/21 11:29 11:40 11:58 13:08 Temp 97.7 97.7 Pulse 61 59 Resp 21 B/P (MAP) 150/68 150/78 (102) Pulse Ox 93 95 95 O2 Delivery Ventilator Ventilator Ventilator 02/14/21 14:13 Pulse 60 B/P (MAP) 151/76 Intake and Output 02/13/21 02/13/21 02/14/21 14:59 22:59 06:59 Intake Total 50 ml 1205 ml 1704.8 ml Output Total 775 ml 1400 ml 1270 ml Balance -725 ml -195 ml 434.8 ml Justifications for Admission Other Justification LUCINDA DENNY MD Feb 14, 2021 14:54
--- NOTE | 2021-02-14 15:10 | PATHOLOGY ---
[facility] Accession Number: [id number] . 01 Material submitted: . brain - INTRACRANIAL HEMORRHAGE. Modifiers: INTRACRANIAL . 01 Clinical history: . BRAIN BLEED INTRACRANIAL HEMORRHAGE CRANIOTOMY FOR EVACUATION . 02 Diagnosis: Craniotomy for evacuation of hemorrhage: - Blood coagulum and small segment of white matter, consistent with intracranial hemorrhage. (JPM:suzanne; 02/14/2021) QMS 02/14/2021 1333 Local . 02 Comment: There is no evidence of malignancy. . 02 Electronically signed: . Wei Araujo MD, Pathologist NPI- [id number] . 01 Gross description: . The specimen is received in formalin, labeled "Joao Lucas Jr., intracranial hemorrhage". Received is a moderate amount of blood coagulum measuring 2.8 x 1.9 x 0.5 cm in aggregate dimensions. The specimen is filtered and entirely submitted in cassette A1. (CAA; 02/12/2021) QAC/QAC 02/12/2021 1328 Local . 02 Pathologist provided ICD-10: I62.00 . 02 CPT . 465250 Specimen Comment: A courtesy copy of this report has been sent to [phone] Specimen Comment: [phone], Specimen Comment: Report sent to , DR ASH / DR SABA Performed at: 01 [facility] [address], [place] [id number] MD Manoj Raymundo MD Phone: [phone] Performed at: 02 [facility] [address], [place] [id number] MD Wei Araujo MD Phone: [phone]
[2021-02-14] MEDS: hydrALAZINE 20 MG/ML VIAL. IVP PRN ×2 (16:47→21:59)
[2021-02-14] MEDS: INSULIN GLARGINE SYRINGE. SQ SCH (22:00)
[2021-02-14] MEDS ORDERED: AMINO ACID IV SCH (22:00)
[2021-02-14] MEDS ORDERED: DEXTROSE 70% IV SCH (22:00)
[2021-02-14] MEDS ORDERED: [UNRECOGNIZED DRUG - OTHER] IV SCH (22:00)
[2021-02-14] MEDS ORDERED: TOTAL PARENTERAL NUTRITION IV SCH (22:00)
[2021-02-15] VITALS (27 sets, daily range): BP systolic 114–179; BP diastolic 58–87
[2021-02-15] MEDS: hydrALAZINE 20 MG/ML VIAL. IVP PRN ×3 (02:24→12:05)
[2021-02-15] MEDS: LABETALOL 20 MG/4 ML DISP.SYRIN. IVP PRN ×3 (02:24→10:49)
[2021-02-15] MEDS: PROPOFOL 100 ML IV PRN ×3 (02:25→08:32)
[2021-02-15] MEDS: PIPERACILLIN/TAZOBACTAM 3.375 GM in IV NORMAL SALINE 50ML 50 ML IV SCH ×3 (05:38→17:46)
[2021-02-15] MEDS: INSULIN LISPRO 300 UNITS/3 ML VIAL. SQ SCH ×3 (05:39→17:47)
[2021-02-15 06:12] LABS: CALCIUM 9.3 mg/dL (8.5-10.1); GFR 92.2; MAGNESIUM 2.1 mg/dL (1.8-2.4); PHOSPHORUS 3.8 mg/dL (2.6-4.7); POTASSIUM 4.3 mmol/L (3.5-5.1)
--- NOTE | 2021-02-15 07:26 | PDOC ---
Infectious Disease Note Subjective: Subjective pt is sedated on vent Fio2 70% Peep 5 Vital Signs: Vital Signs Vital Signs Date Time Temp Pulse Resp B/P (MAP) Pulse Ox O2 Delivery O2 Flow Rate FiO2 02/15/21 07:00 64 20 156/70 (98) 97 Ventilator 02/15/21 04:00 98.7 98.7 Physical Exam: PHYSICAL EXAM GENERAL: Sedated, orally intubated gentleman, HEENT: Both pupils are round and reacting. No conjunctival lesion noticed. ETT/OGT + NECK: Rt IJ clean LUNGS: coarse bs HEART: S1, S2 ABDOMEN: Soft, nontender, no organomegaly. EXTREMITIES: +edema, no cyanosis. SKIN:no gen rash NEUROLOGIC: unable to assess art line, central line clean Medications: Inpatient Meds: Medications reviewed. Labs: Lab Laboratory Tests Test 02/14/21 08:00 02/14/21 11:22 02/14/21 16:53 02/14/21 23:56 O2 Saturation 92 % (92-99) Arterial Blood pH 7.36 (7.35-7.45) Arterial Blood pCO2 at Patient Temp 43 mmHg (35-46) Arterial Blood pO2 at Patient Temp 70 mmHg (65-108) Arterial Blood HCO3 23 mmol/L (21-28) Arterial Blood Base Excess -2 mmol/L (-3-3) FiO2 50% vent Glucose (Fingerstick) 236 mg/dL (70-99) 234 mg/dL (70-99) 269 mg/dL (70-99) Test 02/15/21 05:37 02/15/21 05:40 Glucose (Fingerstick) 260 mg/dL (70-99) Sodium Level 147 mmol/L (136-145) Potassium Level 4.3 mmol/L (3.5-5.1) Chloride Level 112 mmol/L (98-107) Carbon Dioxide Level 22 mmol/L (21-32) Anion Gap 13 (6-14) Blood Urea Nitrogen 21 mg/dL (8-26) Creatinine 1.0 mg/dL (0.7-1.3) Estimated GFR (Cockcroft-Gault) 92.2 Glucose Level 284 mg/dL (70-99) Calcium Level 9.3 mg/dL (8.5-10.1) Phosphorus Level 3.8 mg/dL (2.6-4.7) Magnesium Level 2.1 mg/dL (1.8-2.4) Objective: Assessment: 1. Fever.Improved 2. Suspected aspiration.sputum cultures NRF 3. Intracranial bleed with mass effect, status post craniotomy and hematoma evacuation. 4. Encephalopathy 5. Respiratory failure. 6. Hypertension. 7. Chronic obstructive pulmonary disease. 8. MARVIN improved Plan: Plan of Care cont Zosyn obtain U/S LUE to R/O DVT Monitor labs and cults cont supportive care D/W RAMU ANDERSON MD Feb 15, 2021 07:26
[2021-02-15 07:36] LABS: BASE EXCESS ABG -3 mmol/L (-3-3); HCO3 ABG 21 mmol/L (21-28); PCO2 ABG 34 mmHg (35-46); PO2 ABG 73 mmHg (65-108); SAT O2 ABG 94 % (92-99)
[2021-02-15] MEDS: PANTOPRAZOLE IV PUSH 40 MG VIAL. IVP SCH (08:31)
--- NOTE | 2021-02-15 08:38 | PDOC ---
PROGRESS NOTES Date of Service DATE: 02/15/21 TIME: 08:37 Assessment Large right temporo-occipital intraparenchymal bleed, most likely lobar hemorrhage from hypertension, consider venous sinus thrombosis, less likely in this location, aneurysmal bleed, head trauma (also unlikely). CT angiogram was negative. Follow-up head CT 02/13 showing expected evolution of the hemorrhage. Had craniotomy 02/09 evening Suspected aspiration, respiratory failure, hypertension, chronic obstructive pulmonary disease, improving acute kidney injury Agitated, difficult to wean sedation Plan Will follow Subjective None Objective Vital Signs Date Time Temp Pulse Resp B/P (MAP) Pulse Ox O2 Delivery O2 Flow Rate FiO2 02/15/21 08:33 66 170/68 02/15/21 08:00 Mechanical Ventilator 02/15/21 08:00 98.6 25 97 98.6 Intake and Output 02/15/21 07:00 Intake Total 4612.9 ml Output Total 3175 ml Balance 1437.9 ml Intake IV Total 4502.9 ml Other 110 ml Output Urine Total 3025 ml Gastric Drainage Total 150 ml PHYSICAL EXAM Sedated on vent, not responsive Pupils small, minimally reactive No spontaneous eye movements CN: no focal findings. Muscle tone: normal. Muscle strength: no response to pain DTR: 0+ Plantar reflex: silent Gait: not examined Sensory exam: not cooperative. Cerebellar: not cooperative Review of Relevant I have reviewed the following items neela (where applicable) has been applied. Labs Laboratory Tests Test 02/13/21 12:18 02/13/21 17:54 02/14/21 00:10 02/14/21 05:39 Glucose (Fingerstick) 224 mg/dL (70-99) 218 mg/dL (70-99) 248 mg/dL (70-99) 232 mg/dL (70-99) Test 02/14/21 05:40 02/14/21 08:00 02/14/21 11:22 02/14/21 16:53 White Blood Count 8.1 x10^3/uL (4.0-11.0) Red Blood Count 3.91 x10^6/uL (4.30-5.70) Hemoglobin 11.7 g/dL (13.0-17.5) Hematocrit 35.5 % (39.0-53.0) Mean Corpuscular Volume 91 fL (79-100) Mean Corpuscular Hemoglobin 30 pg (25-35) Mean Corpuscular Hemoglobin Concent 33 g/dL (31-37) Red Cell Distribution Width 13.7 % (11.5-14.5) Platelet Count 225 x10^3/uL (140-400) Neutrophils (%) (Auto) 80 % (31-73) Lymphocytes (%) (Auto) 12 % (24-48) Monocytes (%) (Auto) 7 % (0-9) Eosinophils (%) (Auto) 1 % (0-3) Basophils (%) (Auto) 1 % (0-3) Neutrophils # (Auto) 6.5 x10^3/uL (1.8-7.7) Lymphocytes # (Auto) 0.9 x10^3/uL (1.0-4.8) Monocytes # (Auto) 0.5 x10^3/uL (0.0-1.1) Eosinophils # (Auto) 0.1 x10^3/uL (0.0-0.7) Basophils # (Auto) 0.0 x10^3/uL (0.0-0.2) Sodium Level 148 mmol/L (136-145) Potassium Level 4.7 mmol/L (3.5-5.1) Chloride Level 111 mmol/L (98-107) Carbon Dioxide Level 25 mmol/L (21-32) Anion Gap 12 (6-14) Blood Urea Nitrogen 18 mg/dL (8-26) Creatinine 1.0 mg/dL (0.7-1.3) Estimated GFR (Cockcroft-Gault) 92.2 Glucose Level 258 mg/dL (70-99) Calcium Level 9.0 mg/dL (8.5-10.1) Phosphorus Level 3.7 mg/dL (2.6-4.7) Magnesium Level 2.2 mg/dL (1.8-2.4) O2 Saturation 92 % (92-99) Arterial Blood pH 7.36 (7.35-7.45) Arterial Blood pCO2 at Patient Temp 43 mmHg (35-46) Arterial Blood pO2 at Patient Temp 70 mmHg (65-108) Arterial Blood HCO3 23 mmol/L (21-28) Arterial Blood Base Excess -2 mmol/L (-3-3) FiO2 50% vent Glucose (Fingerstick) 236 mg/dL (70-99) 234 mg/dL (70-99) Test 02/14/21 23:56 02/15/21 05:37 02/15/21 05:40 Glucose (Fingerstick) 269 mg/dL (70-99) 260 mg/dL (70-99) Sodium Level 147 mmol/L (136-145) Potassium Level 4.3 mmol/L (3.5-5.1) Chloride Level 112 mmol/L (98-107) Carbon Dioxide Level 22 mmol/L (21-32) Anion Gap 13 (6-14) Blood Urea Nitrogen 21 mg/dL (8-26) Creatinine 1.0 mg/dL (0.7-1.3) Estimated GFR (Cockcroft-Gault) 92.2 Glucose Level 284 mg/dL (70-99) Calcium Level 9.3 mg/dL (8.5-10.1) Phosphorus Level 3.8 mg/dL (2.6-4.7) Magnesium Level 2.1 mg/dL (1.8-2.4) Laboratory Tests Test 02/14/21 11:22 02/14/21 16:53 02/14/21 23:56 02/15/21 05:37 Glucose (Fingerstick) 236 mg/dL (70-99) 234 mg/dL (70-99) 269 mg/dL (70-99) 260 mg/dL (70-99) Test 02/15/21 05:40 Sodium Level 147 mmol/L (136-145) Potassium Level 4.3 mmol/L (3.5-5.1) Chloride Level 112 mmol/L (98-107) Carbon Dioxide Level 22 mmol/L (21-32) Anion Gap 13 (6-14) Blood Urea Nitrogen 21 mg/dL (8-26) Creatinine 1.0 mg/dL (0.7-1.3) Estimated GFR (Cockcroft-Gault) 92.2 Glucose Level 284 mg/dL (70-99) Calcium Level 9.3 mg/dL (8.5-10.1) Phosphorus Level 3.8 mg/dL (2.6-4.7) Magnesium Level 2.1 mg/dL (1.8-2.4) Microbiology 02/11/21 Blood Culture - Preliminary, Resulted NO GROWTH AFTER 3 DAYS 02/11/21 Gram Stain Evaluation - Final, Complete 02/11/21 Respiratory Culture - Final, Complete Medications Current Medications Nicardipine HCl 50 mg/Sodium Chloride 250 ml @ 12.5 mls/hr CONT PRN IV SEE I/O RECORD Last administered on 02/15/21at 06:41; Start 02/09/21 at 06:15 Labetalol HCl (Normodyne Iv Push) 10 mg PRN Q2HR PRN IVP HYPERTENSION Last administered on 02/15/21at 05:22; Start 02/09/21 at 06:15 Lorazepam (Ativan Inj) 2 mg 1X ONCE IVP Last administered on 02/09/21at 10:54; Start 02/09/21 at 10:45; Stop 02/09/21 at 10:46; Status DC Lorazepam (Ativan Inj) 2 mg 1X ONCE IVP Last administered on 02/09/21at 11:00; Start 02/09/21 at 11:00; Stop 02/09/21 at 11:01; Status DC Fentanyl Citrate (Fentanyl 2ml Vial) 25 mcg PRN Q2HR PRN IVP MODERATE TO SEVERE PAIN Last administered on 02/09/21at 13:37; Start 02/09/21 at 13:30 Info (Review Meds) 1 ea PRN 1X PRN MC SEE COMMENTS; Start 02/09/21 at 15:00 Acetaminophen (Tylenol Supp) 650 mg PRN Q6HRS PRN LA FEVER > 100.5'F or 38'C; Start 02/09/21 at 15:00; Stop 02/11/21 at 21:12; Status DC Albuterol Sulfate (Ventolin Neb Soln) 2.5 mg PRN Q4HRS PRN NEB SHORTNESS OF BREATH; Start 02/09/21 at 15:15 Iohexol (Omnipaque 350 Mg/ml) 75 ml 1X ONCE IV Last administered on 02/09/21at 15:52; Start 02/09/21 at 15:30; Stop 02/09/21 at 15:35; Status DC Iohexol (Omnipaque 350 Mg/ml) 100 ml STK-MED ONCE .ROUTE ; Start 02/09/21 at 15:26; Stop 02/09/21 at 15:27; Status DC Info (CONTRAST GIVEN -- Rx MONITORING) 1 each PRN DAILY PRN MC SEE COMMENTS; Start 02/09/21 at 15:45; Stop 02/11/21 at 15:44; Status DC Propofol 100 ml @ As Directed STK-MED ONCE IV ; Start 02/09/21 at 15:51; Stop 02/09/21 at 15:51; Status DC Rocuronium [place] (Zemuron) 50 mg STK-MED ONCE .ROUTE ; Start 02/09/21 at 15:51; Stop 02/09/21 at 15:51; Status DC Lidocaine HCl (Lidocaine HCl 2% Abboject) 100 mg STK-MED ONCE .ROUTE ; Start 02/09/21 at 15:52; Stop 02/09/21 at 15:53; Status DC Propofol 100 ml @ 3.507 mls/ hr CONT PRN IV PER PROTOCOL Last administered on 02/15/21at 08:32; Start 02/09/21 at 16:15 Lidocaine HCl (Lidocaine HCl 2% Abboject) 100 mg 1X ONCE IV Last administered on 02/09/21at 16:17; Start 02/09/21 at 16:15; Stop 02/09/21 at 16:17; Status DC Rocuronium [place] (Zemuron) 50 mg 1X ONCE IV Last administered on 02/09/21at 16:17; Start 02/09/21 at 16:15; Stop 02/09/21 at 16:17; Status DC Rocuronium [place] (Zemuron) 100 mg STK-MED ONCE .ROUTE ; Start 02/09/21 at 16:31; Stop 02/09/21 at 16:32; Status DC Gelatin (Gelfoam Size 100) 1 each STK-MED ONCE .ROUTE Last administered on 02/09/21at 17:49; Start 02/09/21 at 16:33; Stop 02/09/21 at 16:33; Status DC Bupivacaine HCl/ Epinephrine Bitart (Sensorcain-Epi 0.5%-1:[id number] Mpf) 30 ml STK-MED ONCE .ROUTE Last administered on 02/09/21at 17:49; Start 02/09/21 at 16:33; Stop 02/09/21 at 16:33; Status DC Cellulose (Surgicel Hemostat 4x8) 1 each STK-MED ONCE .ROUTE Last administered on 02/09/21at 18:38; Start 02/09/21 at 16:33; Stop 02/09/21 at 16:33; Status DC Thrombin 20,000 unit STK-MED ONCE TP Last administered on 02/09/21at 17:49; Start 02/09/21 at 16:33; Stop 02/09/21 at 16:33; Status DC Fentanyl Citrate (Fentanyl 2ml Vial) 75 mcg 1X ONCE IVP Last administered on 02/09/21at 16:45; Start 02/09/21 at 16:45; Stop 02/09/21 at 16:47; Status DC Propofol (Diprivan) 200 mg 1X ONCE IV ; Start 02/09/21 at 17:15; Stop 02/09/21 at 17:16; Status DC Lidocaine HCl (Lidocaine HCl 2% Abboject) 100 mg 1X ONCE IV ; Start 02/09/21 at 17:15; Stop 02/09/21 at 17:16; Status DC Rocuronium [place] (Zemuron) 50 mg 1X ONCE IV ; Start 02/09/21 at 17:15; Stop 02/09/21 at 17:16; Status DC Propofol 100 ml @ 0 mls/hr CONT PRN PRN IV SEDATION; Start 02/09/21 at 17:15; Stop 02/10/21 at 05:14; Status DC Cefazolin Sodium (Ancef) 1 gm STK-MED ONCE IVP ; Start 02/09/21 at 17:28; Stop 02/09/21 at 17:28; Status DC Fentanyl Citrate (Fentanyl 2ml Vial) 100 mcg STK-MED ONCE .ROUTE ; Start 02/09/21 at 17:43; Stop 02/09/21 at 17:43; Status DC Rocuronium [place] (Zemuron) 100 mg STK-MED ONCE .ROUTE ; Start 02/09/21 at 17:58; Stop 02/09/21 at 17:59; Status DC Vecuronium [place] (Norcuron Bolus) 10 mg STK-MED ONCE IV ; Start 02/09/21 at 18:49; Stop 02/09/21 at 18:50; Status DC Sodium Chloride (SODIUM CHLORIDE 20ml) 20 ml STK-MED ONCE IJ ; Start 02/09/21 at 18:50; Stop 02/09/21 at 18:50; Status DC Sevoflurane (Ultane) 90 ml STK-MED ONCE IH ; Start 02/09/21 at 19:20; Stop 02/09/21 at 19:21; Status DC Fentanyl Citrate 30 ml @ 2.5 mls/hr CONT PRN IV SEE PROTOCOL Last administered on 02/09/21at 23:40; Start 02/09/21 at 23:15; Stop 02/10/21 at 04:43; Status DC Fentanyl Citrate 55 ml @ 0 mls/hr CONT PRN IV SEE I/O Last administered on 02/14/21at 10:16; Start 02/10/21 at 05:00 Potassium Chloride/Dextrose/ Sod Cl 1,000 ml @ 80 mls/hr [id number] IV ; Start 02/10/21 at 09:00; Stop 02/10/21 at 13:21; Status DC Pantoprazole Sodium (PROTONIX VIAL for IV PUSH) 40 mg DAILYAC IVP Last administered on 02/15/21at 08:31; Start 02/10/21 at 09:00 Lidocaine HCl (Buffered Lidocaine 1%) 3 ml STK-MED ONCE .ROUTE ; Start 02/10/21 at 13:18; Stop 02/10/21 at 13:18; Status DC Sodium Chloride 1,000 ml @ 80 mls/hr [id number] IV Last administered on 02/12/21at 03:00; Start 02/10/21 at 13:30; Stop 02/12/21 at 15:36; Status DC Lidocaine HCl (Buffered Lidocaine 1%) 6 ml 1X ONCE INJ Last administered on 02/10/21at 13:57; Start 02/10/21 at 13:45; Stop 02/10/21 at 13:46; Status DC Potassium Chloride/Water 100 ml @ 100 mls/hr Q1H IV Last administered on 02/11/21at 10:07; Start 02/11/21 at 08:00; Stop 02/11/21 at 09:59; Status DC Piperacillin Sod/ Tazobactam Sod 3.375 gm/Sodium Chloride 50 ml @ 100 mls/hr Q6 HRS IV Last administered on 02/15/21at 05:38; Start 02/11/21 at 09:00 Info (Tpn Per Pharmacy) 1 each PRN DAILY PRN MC SEE COMMENTS Last administered on 02/14/21at 14:28; Start 02/11/21 at 11:15 Sodium Chloride 90 meq/Potassium Chloride 50 meq/ Potassium Phosphate 13.6 mmol/Magnesium Sulfate 10 meq/ Calcium Gluconate 10 meq/ Multivitamins 5 ml/Zinc/Copper/ Manganese/ Selenium 1 ml/ Total Parenteral Nutrition/Amino Acids/Dextrose 1,512 ml @ 63 mls/hr TPN CONT IV Last administered on 02/11/21at 22:32; Start 02/11/21 at 22:00; Stop 02/12/21 at 21:59; Status DC Furosemide (Lasix) 20 mg 1X ONCE IVP Last administered on 02/11/21at 15:11; Start 02/11/21 at 15:30; Stop 02/11/21 at 15:31; Status DC Furosemide (Lasix) 20 mg 1X ONCE IVP Last administered on 02/11/21at 17:00; Start 02/11/21 at 17:00; Stop 02/11/21 at 17:01; Status DC Midazolam HCl 100 ml @ 1 mls/hr CONT PRN IV SEE PROTOCOL Last administered on 02/13/21at 20:58; Start 02/11/21 at 19:30 Acetaminophen (Tylenol Supp) 650 mg PRN Q6HRS PRN LA MILD PAIN / TEMP > 100.3'F; Start 02/11/21 at 21:15 Sodium Chloride 80 meq/Potassium Chloride 50 meq/ Potassium Phosphate 13.6 mmol/Magnesium Sulfate 6 meq/ Calcium Gluconate 10 meq/ Multivitamins 5 ml/Zinc/Copper/ Manganese/ Selenium 1 ml/ Total Parenteral Nutrition/Amino Acids/Dextrose 1,512 ml @ 63 mls/hr TPN CONT IV Last administered on 02/12/21at 22:09; Start 02/12/21 at 22:00; Stop 02/13/21 at 21:59; Status DC Furosemide (Lasix) 40 mg 1X ONCE IVP Last administered on 02/12/21at 12:44; Start 02/12/21 at 12:30; Stop 02/12/21 at 12:31; Status DC Insulin Human Lispro (HumaLOG) 0-5 UNITS Q6HRS SQ Last administered on 02/15/21at 05:39; Start 02/12/21 at 12:00 Dextrose (Dextrose 50%-Water Syringe) 12.5 gm PRN Q15MIN PRN IV SEE COMMENTS; Start 02/12/21 at 12:15 Clonidine HCl (Catapres Tts-3) 1 patch WEEKLY TD Last administered on 02/13/21at 11:47; Start 02/13/21 at 11:00 Sodium Chloride 80 meq/Potassium Chloride 50 meq/ Potassium Phosphate 13.6 mmol/Magnesium Sulfate 6 meq/ Calcium Gluconate 10 meq/ Multivitamins 5 ml/Zinc/Copper/ Manganese/ Selenium 1 ml/ Total Parenteral Nutrition/Amino Acids/Dextrose 1,512 ml @ 63 mls/hr TPN CONT IV Last administered on 02/13/21at 21:42; Start 02/13/21 at 22:00; Stop 02/14/21 at 21:59; Status DC Potassium Acetate 50 meq/Potassium Phosphate 13.6 mmol/Magnesium Sulfate 6 meq/ Calcium Gluconate 10 meq/ Multivitamins 5 ml/Zinc/Copper/ Manganese/ Selenium 1 ml/ Total Parenteral Nutrition/Amino Acids/Dextrose 1,512 ml @ 63 mls/hr TPN CONT IV Last administered on 02/14/21at 21:59; Start 02/14/21 at 22:00; Stop 02/15/21 at 21:59 Insulin Glargine (Lantus Syringe) 10 unit QHS SQ Last administered on 02/14/21at 22:00; Start 02/14/21 at 21:00 Hydralazine HCl (Apresoline Inj) 10 mg PRN Q4HRS PRN IVP ELEVATED BP, SEE COMMENTS Last administered on 02/15/21at 08:33; Start 02/14/21 at 16:00 Vitals/I & O Vital Sign - Last 24 Hours 02/14/21 02/14/21 02/14/21 02/14/21 09:00 09:15 10:00 10:16 Pulse 63 61 Resp 20 20 B/P (MAP) 142/68 (92) 145/66 (92) Pulse Ox 93 95 93 93 O2 Delivery Ventilator Ventilator Ventilator 02/14/21 02/14/21 02/14/21 02/14/21 10:46 11:00 11:29 11:40 Pulse 60 61 Resp 21 B/P (MAP) 150/78 (102) 150/68 Pulse Ox 93 93 93 O2 Delivery Ventilator Ventilator 02/14/21 02/14/21 02/14/21 02/14/21 11:58 12:00 12:00 13:00 Temp 97.7 97.7 Pulse 59 58 Resp 21 21 B/P (MAP) 150/78 (102) 146/66 (92) Pulse Ox 95 95 O2 Delivery Ventilator Mechanical Ventilator Ventilator 02/14/21 02/14/21 02/14/21 02/14/21 13:08 14:00 14:13 15:00 Pulse 58 60 58 Resp 20 22 B/P (MAP) 152/68 (96) 151/76 156/71 (99) Pulse Ox 95 90 94 O2 Delivery Ventilator Ventilator Ventilator 02/14/21 02/14/21 02/14/21 02/14/21 15:47 16:00 16:00 16:00 Temp 98.7 98.7 Pulse 60 Resp 25 B/P (MAP) 170/71 (104) Pulse Ox 94 94 O2 Delivery Ventilator Mechanical Ventilator Ventilator 02/14/21 02/14/21 02/14/21 02/14/21 16:47 17:00 17:21 17:26 Pulse 67 66 72 Resp 36 B/P (MAP) 181/87 186/74 (111) 181/78 Pulse Ox 94 95 O2 Delivery Ventilator Ventilator 02/14/21 02/14/21 02/14/21 02/14/21 18:00 19:00 20:00 20:00 Pulse 68 72 Resp 30 30 B/P (MAP) 168/72 (104) 168/72 (104) Pulse Ox 94 94 O2 Delivery Ventilator Ventilator Mechanical Ventilator 02/14/21 02/14/21 02/14/21 02/14/21 20:00 20:26 21:00 21:54 Temp 99.0 99.0 Pulse 81 83 81 Resp 31 29 B/P (MAP) 168/72 (104) 191/81 (117) 194/81 Pulse Ox 94 95 95 O2 Delivery Ventilator Ventilator Ventilator 02/14/21 02/14/21 02/14/21 02/14/21 21:59 22:00 23:00 23:48 Pulse 81 84 77 81 Resp 29 30 B/P (MAP) 193/81 197/82 (120) 187/79 (115) 193/81 Pulse Ox 96 96 O2 Delivery Ventilator Ventilator 02/14/21 02/15/21 02/15/21 02/15/21 23:59 00:00 00:00 00:02 Temp 99.0 99.0 Pulse 80 Resp 29 B/P (MAP) 179/80 (113) Pulse Ox 97 97 O2 Delivery Mechanical Ventilator Ventilator Ventilator 02/15/21 02/15/21 02/15/21 02/15/21 01:00 02:00 02:18 02:24 Pulse 83 78 83 Resp 27 27 B/P (MAP) 171/72 (105) 170/75 (106) 171/72 Pulse Ox 96 97 96 O2 Delivery Ventilator Ventilator Ventilator 02/15/21 02/15/21 02/15/21 02/15/21 02:24 03:00 04:00 04:00 Temp 98.7 98.7 Pulse 83 72 75 Resp 28 26 B/P (MAP) 171/72 155/70 (98) 159/70 (99) Pulse Ox 97 97 O2 Delivery Ventilator Ventilator 02/15/21 02/15/21 02/15/21 02/15/21 04:00 04:51 05:00 05:22 Pulse 71 75 Resp 26 B/P (MAP) 158/70 (99) 159/70 Pulse Ox 97 97 O2 Delivery Mechanical Ventilator Ventilator Ventilator 02/15/21 02/15/21 02/15/21 02/15/21 06:00 07:00 07:25 08:00 Temp 98.6 98.6 Pulse 70 64 66 Resp 28 20 25 B/P (MAP) 160/70 (100) 156/70 (98) 170/68 (102) Pulse Ox 96 97 95 97 O2 Delivery Ventilator Ventilator Ventilator Ventilator 02/15/21 02/15/21 02/15/21 08:00 08:00 08:33 Pulse 66 B/P (MAP) 170/68 O2 Delivery Mechanical Ventilator Intake and Output 02/14/21 02/14/21 02/15/21 15:00 23:00 07:00 Intake Total 100 ml 1928 ml 2584.9 ml Output Total 700 ml 1475 ml 1000 ml Balance -600 ml 453 ml 1584.9 ml Justicifation of Admission Dx: Justifications for Admission: Justification of Admission Dx: Yes Acute Hemorrhagic Stroke: Acute Hemorrhagic Stroke EITAN LORENZO MD Feb 15, 2021 08:38
[2021-02-15 08:40] LABS: FIO2 ABG 50/VENT
--- NOTE | 2021-02-15 08:57 | PDOC ---
PROGRESS NOTES Date of Service: DATE: 02/15/21 TIME: 08:57 Chief Complaint Chief Complaint IMPRESSION Dizziness Large right temporo-occipital intraparenchymal bleed, most likely lobar hemorrhage from hypertension, consider venous sinus thrombosis, , aneurysmal bleed, Had craniotomy 7 evening Suspect aspiration, respiratory failure, hypertension, chronic obstructive pulmonary disease, improving acute kidney injury MORBID OBESITY History of Present Illness History of Present Illness 02/15/2021 POD #6 Right occipital craniotomy with evacuation of intracerebral hematoma sedated on vent Patient seen and examined at bedside Good response to IV Lasix Continue antibiotics per infectious disease Weaning ventilator and sedation as tolerated Hopeful extubation in the next few days Plan of care discussed with bedside nurse Expected interval evolution of a right posterior temporal/occipital intraparenchymal hematoma status post decompressive craniotomy Large right temporo-occipital intraparenchymal bleed, most likely lobar hemorrhage from hypertension, consider venous sinus thrombosis, less likely in this location, aneurysmal bleed, head trauma (also unlikely). Had craniotomy 02/09 evening Suspect of aspiration, respiratory failure, hypertension, chronic obstructive pulmonary disease, improving acute kidney injury cont Zosyn glucose uncontrolled add Lantus 35 MIN CC TIME 02/14/2021 POD #5 Right occipital craniotomy with evacuation of intracerebral hematoma sedated on vent Patient seen and examined at bedside Good response to IV Lasix Continue antibiotics per infectious disease Weaning ventilator and sedation as tolerated Hopeful extubation in the next few days Plan of care discussed with bedside nurse Expected interval evolution of a right posterior temporal/occipital intraparenchymal hematoma status post decompressive craniotomy Large right temporo-occipital intraparenchymal bleed, most likely lobar hemorrhage from hypertension, consider venous sinus thrombosis, less likely in this location, aneurysmal bleed, head trauma (also unlikely). Had craniotomy 7 evening Suspect of aspiration, respiratory failure, hypertension, chronic obstructive pulmonary disease, improving acute kidney injury cont Zosyn glucose uncontrolled add Lantus 35 MIN CC TIME 02/13/2021 POD #4 Right occipital craniotomy with evacuation of intracerebral hematoma sedated on vent Patient seen and examined at bedside Good response to IV Lasix Continue antibiotics per infectious disease Weaning ventilator and sedation as tolerated Hopeful extubation in the next few days Plan of care discussed with bedside nurse Expected interval evolution of a right posterior temporal/occipital intraparenchymal hematoma status post decompressive craniotomy Large right temporo-occipital intraparenchymal bleed, most likely lobar hemorrhage from hypertension, consider venous sinus thrombosis, less likely in this location, aneurysmal bleed, head trauma (also unlikely). Had craniotomy 02/09 evening Suspect of aspiration, respiratory failure, hypertension, chronic obstructive pulmonary disease, improving acute kidney injury cont Zosyn 35 MIN CC TIME 02/12/2021 Patient seen and examined at bedside Remains intubated and sedated Good response to IV Lasix yesterday had nearly 3 L out; will diurese again today Continue antibiotics per infectious disease Weaning ventilator and sedation as tolerated Hopeful extubation in the next few days Plan of care discussed with bedside nurse 02/11/2021 Patient seen and examined at bedside No major clinical changes overnight however this morning patient has largely increased amount of secretions Chest x-ray concerning for possible pneumonia, will consult ID who recommended starting Zosyn Otherwise he remains intubated and sedated We will follow subspecialist input Plan discussed with bedside RN 02/10/2021 Patient seen and examined at bedside Underwent craniotomy yesterday due to unresponsiveness in the late afternoon; was also intubated Continues to have a poor neurologic status Neurology and neurosurgery following Discussed plan of care with bedside nurse Patient is a 61-year-old male transferred for to the ICU overnight due to hypertensive emergency and intracranial hemorrhage. Patient's mother at bedside provides most the history. She reports that patient had been in his usual state of health until yesterday morning when he reported feeling tired and having a headache. Patient mother r eports he normally gets up early and goes outside however this was not the case yesterday. With this headache he took BC powder and went back to bed. Patient's mother reports that he was in and out of bed throughout most of the afternoon. Says patient did not eat anything yesterday which is very unusual for him. Approximately 1130 last night she had the patient get up to go to the bathroom and heard him fall. He however is able to get up and returned to bed; unknown if he hit his head at this time. Patient again woke up around 2 AM and woke up his mother asking for orange juice and then proceeded to fall again, she does not think he hit his head at this time. He was taken to hospital and found to have a systolic blood pressure greater than [address] scan found to have an intracranial hemorrhage. Due to severity of his condition he was transferred here. Patient's mother reports she is not aware of any past medical history other than hypertension which he intermittently takes hydrochlorothiazide for. Vitals Vitals Vital Signs Date Time Temp Pulse Resp B/P (MAP) Pulse Ox O2 Delivery O2 Flow Rate FiO2 02/15/21 08:33 66 170/68 02/15/21 08:00 Mechanical Ventilator 02/15/21 08:00 98.6 25 97 98.6 Physical Exam Physical Exam GENERAL: Sedated, orally intubated gentleman, HEENT: Both pupils are round and reacting. No conjunctival lesion noticed. ETT/OGT + NECK: Rt IJ clean LUNGS: coarse bs HEART: S1, S2 ABDOMEN: Soft, nontender, no organomegaly. EXTREMITIES: +edema, no cyanosis. SKIN:no gen rash NEUROLOGIC: unable to assess art line, central line clean General: Other (sedated) Lungs: Clear, Crackles Abdomen: Soft Extremities: No cyanosis Skin: Other (dressing C,D,I) Labs LABS Laboratory Tests Test 02/14/21 11:22 02/14/21 16:53 02/14/21 23:56 02/15/21 05:37 Glucose (Fingerstick) 236 mg/dL (70-99) 234 mg/dL (70-99) 269 mg/dL (70-99) 260 mg/dL (70-99) Test 02/15/21 05:40 02/15/21 07:00 Sodium Level 147 mmol/L (136-145) Potassium Level 4.3 mmol/L (3.5-5.1) Chloride Level 112 mmol/L (98-107) Carbon Dioxide Level 22 mmol/L (21-32) Anion Gap 13 (6-14) Blood Urea Nitrogen 21 mg/dL (8-26) Creatinine 1.0 mg/dL (0.7-1.3) Estimated GFR (Cockcroft-Gault) 92.2 Glucose Level 284 mg/dL (70-99) Calcium Level 9.3 mg/dL (8.5-10.1) Phosphorus Level 3.8 mg/dL (2.6-4.7) Magnesium Level 2.1 mg/dL (1.8-2.4) O2 Saturation 94 % (92-99) Arterial Blood pH 7.41 (7.35-7.45) Arterial Blood pCO2 at Patient Temp 34 mmHg (35-46) Arterial Blood pO2 at Patient Temp 73 mmHg (65-108) Arterial Blood HCO3 21 mmol/L (21-28) Arterial Blood Base Excess -3 mmol/L (-3-3) FiO2 50/vent Comment Review of Relevant I have reviewed the following items neela (where applicable) has been applied. Labs Laboratory Tests Test 02/13/21 12:18 02/13/21 17:54 02/14/21 00:10 02/14/21 05:39 Glucose (Fingerstick) 224 mg/dL (70-99) 218 mg/dL (70-99) 248 mg/dL (70-99) 232 mg/dL (70-99) Test 02/14/21 05:40 02/14/21 08:00 02/14/21 11:22 02/14/21 16:53 White Blood Count 8.1 x10^3/uL (4.0-11.0) Red Blood Count 3.91 x10^6/uL (4.30-5.70) Hemoglobin 11.7 g/dL (13.0-17.5) Hematocrit 35.5 % (39.0-53.0) Mean Corpuscular Volume 91 fL (79-100) Mean Corpuscular Hemoglobin 30 pg (25-35) Mean Corpuscular Hemoglobin Concent 33 g/dL (31-37) Red Cell Distribution Width 13.7 % (11.5-14.5) Platelet Count 225 x10^3/uL (140-400) Neutrophils (%) (Auto) 80 % (31-73) Lymphocytes (%) (Auto) 12 % (24-48) Monocytes (%) (Auto) 7 % (0-9) Eosinophils (%) (Auto) 1 % (0-3) Basophils (%) (Auto) 1 % (0-3) Neutrophils # (Auto) 6.5 x10^3/uL (1.8-7.7) Lymphocytes # (Auto) 0.9 x10^3/uL (1.0-4.8) Monocytes # (Auto) 0.5 x10^3/uL (0.0-1.1) Eosinophils # (Auto) 0.1 x10^3/uL (0.0-0.7) Basophils # (Auto) 0.0 x10^3/uL (0.0-0.2) Sodium Level 148 mmol/L (136-145) Potassium Level 4.7 mmol/L (3.5-5.1) Chloride Level 111 mmol/L (98-107) Carbon Dioxide Level 25 mmol/L (21-32) Anion Gap 12 (6-14) Blood Urea Nitrogen 18 mg/dL (8-26) Creatinine 1.0 mg/dL (0.7-1.3) Estimated GFR (Cockcroft-Gault) 92.2 Glucose Level 258 mg/dL (70-99) Calcium Level 9.0 mg/dL (8.5-10.1) Phosphorus Level 3.7 mg/dL (2.6-4.7) Magnesium Level 2.2 mg/dL (1.8-2.4) O2 Saturation 92 % (92-99) Arterial Blood pH 7.36 (7.35-7.45) Arterial Blood pCO2 at Patient Temp 43 mmHg (35-46) Arterial Blood pO2 at Patient Temp 70 mmHg (65-108) Arterial Blood HCO3 23 mmol/L (21-28) Arterial Blood Base Excess -2 mmol/L (-3-3) FiO2 50% vent Glucose (Fingerstick) 236 mg/dL (70-99) 234 mg/dL (70-99) Test 02/14/21 23:56 02/15/21 05:37 02/15/21 05:40 02/15/21 07:00 Glucose (Fingerstick) 269 mg/dL (70-99) 260 mg/dL (70-99) Sodium Level 147 mmol/L (136-145) Potassium Level 4.3 mmol/L (3.5-5.1) Chloride Level 112 mmol/L (98-107) Carbon Dioxide Level 22 mmol/L (21-32) Anion Gap 13 (6-14) Blood Urea Nitrogen 21 mg/dL (8-26) Creatinine 1.0 mg/dL (0.7-1.3) Estimated GFR (Cockcroft-Gault) 92.2 Glucose Level 284 mg/dL (70-99) Calcium Level 9.3 mg/dL (8.5-10.1) Phosphorus Level 3.8 mg/dL (2.6-4.7) Magnesium Level 2.1 mg/dL (1.8-2.4) O2 Saturation 94 % (92-99) Arterial Blood pH 7.41 (7.35-7.45) Arterial Blood pCO2 at Patient Temp 34 mmHg (35-46) Arterial Blood pO2 at Patient Temp 73 mmHg (65-108) Arterial Blood HCO3 21 mmol/L (21-28) Arterial Blood Base Excess -3 mmol/L (-3-3) FiO2 50/vent Laboratory Tests Test 02/14/21 11:22 02/14/21 16:53 02/14/21 23:56 02/15/21 05:37 Glucose (Fingerstick) 236 mg/dL (70-99) 234 mg/dL (70-99) 269 mg/dL (70-99) 260 mg/dL (70-99) Test 02/15/21 05:40 02/15/21 07:00 Sodium Level 147 mmol/L (136-145) Potassium Level 4.3 mmol/L (3.5-5.1) Chloride Level 112 mmol/L (98-107) Carbon Dioxide Level 22 mmol/L (21-32) Anion Gap 13 (6-14) Blood Urea Nitrogen 21 mg/dL (8-26) Creatinine 1.0 mg/dL (0.7-1.3) Estimated GFR (Cockcroft-Gault) 92.2 Glucose Level 284 mg/dL (70-99) Calcium Level 9.3 mg/dL (8.5-10.1) Phosphorus Level 3.8 mg/dL (2.6-4.7) Magnesium Level 2.1 mg/dL (1.8-2.4) O2 Saturation 94 % (92-99) Arterial Blood pH 7.41 (7.35-7.45) Arterial Blood pCO2 at Patient Temp 34 mmHg (35-46) Arterial Blood pO2 at Patient Temp 73 mmHg (65-108) Arterial Blood HCO3 21 mmol/L (21-28) Arterial Blood Base Excess -3 mmol/L (-3-3) FiO2 50/vent Microbiology 02/11/21 Blood Culture - Preliminary, Resulted NO GROWTH AFTER 3 DAYS 02/11/21 Gram Stain Evaluation - Final, Complete 02/11/21 Respiratory Culture - Final, Complete Medications Current Medications Nicardipine HCl 50 mg/Sodium Chloride 250 ml @ 12.5 mls/hr CONT PRN IV SEE I/O RECORD Last administered on 02/15/21at 06:41; Start 02/09/21 at 06:15 Labetalol HCl (Normodyne Iv Push) 10 mg PRN Q2HR PRN IVP HYPERTENSION Last administered on 02/15/21at 05:22; Start 02/09/21 at 06:15 Lorazepam (Ativan Inj) 2 mg 1X ONCE IVP Last administered on 02/09/21at 10:54; Start 02/09/21 at 10:45; Stop 02/09/21 at 10:46; Status DC Lorazepam (Ativan Inj) 2 mg 1X ONCE IVP Last administered on 02/09/21at 11:00; Start 02/09/21 at 11:00; Stop 02/09/21 at 11:01; Status DC Fentanyl Citrate (Fentanyl 2ml Vial) 25 mcg PRN Q2HR PRN IVP MODERATE TO SEVERE PAIN Last administered on 02/09/21at 13:37; Start 02/09/21 at 13:30 Info (Review Meds) 1 ea PRN 1X PRN MC SEE COMMENTS; Start 02/09/21 at 15:00 Acetaminophen (Tylenol Supp) 650 mg PRN Q6HRS PRN [place] FEVER > 100.5'F or 38'C; Start 02/09/21 at 15:00; Stop 02/11/21 at 21:12; Status DC Albuterol Sulfate (Ventolin Neb Soln) 2.5 mg PRN Q4HRS PRN NEB SHORTNESS OF BREATH; Start 02/09/21 at 15:15 Iohexol (Omnipaque 350 Mg/ml) 75 ml 1X ONCE IV Last administered on 02/09/21at 15:52; Start 02/09/21 at 15:30; Stop 02/09/21 at 15:35; Status DC Iohexol (Omnipaque 350 Mg/ml) 100 ml STK-MED ONCE .ROUTE ; Start 02/09/21 at 15:26; Stop 02/09/21 at 15:27; Status DC Info (CONTRAST GIVEN -- Rx MONITORING) 1 each PRN DAILY PRN MC SEE COMMENTS; Start 02/09/21 at 15:45; Stop 02/11/21 at 15:44; Status DC Propofol 100 ml @ As Directed STK-MED ONCE IV ; Start 02/09/21 at 15:51; Stop 02/09/21 at 15:51; Status DC R[place] (Zemuron) 50 mg STK-MED ONCE .ROUTE ; Start 02/09/21 at 15:51; Stop 02/09/21 at 15:51; Status DC Lidocaine HCl (Lidocaine HCl 2% Abboject) 100 mg STK-MED ONCE .ROUTE ; Start 02/09/21 at 15:52; Stop 02/09/21 at 15:53; Status DC Propofol 100 ml @ 3.507 mls/ hr CONT PRN IV PER PROTOCOL Last administered on 02/15/21at 08:32; Start 02/09/21 at 16:15 Lidocaine HCl (Lidocaine HCl 2% Abboject) 100 mg 1X ONCE IV Last administered on 02/09/21at 16:17; Start 02/09/21 at 16:15; Stop 02/09/21 at 16:17; Status DC [place]ocur[place] (Zemuron) 50 mg 1X ONCE IV Last administered on 02/09/21at 16:17; Start 02/09/21 at 16:15; Stop 02/09/21 at 16:17; Status DC [place] (Zemuron) 100 mg STK-MED ONCE .ROUTE ; Start 02/09/21 at 16:31; Stop 02/09/21 at 16:32; Status DC Gelatin (Gelfoam Size 100) 1 each STK-MED ONCE .ROUTE Last administered on 02/09/21at 17:49; Start 02/09/21 at 16:33; Stop 02/09/21 at 16:33; Status DC Bupivacaine HCl/ Epinephrine Bitart (Sensorcain-Epi 0.5%-1:[id number] Mpf) 30 ml STK-MED ONCE .ROUTE Last administered on 02/09/21at 17:49; Start 02/09/21 at 16:33; Stop 02/09/21 at 16:33; Status DC Cellulose (Surgicel Hemostat 4x8) 1 each STK-MED ONCE .ROUTE Last administered on 02/09/21at 18:38; Start 02/09/21 at 16:33; Stop 02/09/21 at 16:33; Status DC Thrombin 20,000 unit STK-MED ONCE TP Last administered on 02/09/21at 17:49; Start 02/09/21 at 16:33; Stop 02/09/21 at 16:33; Status DC Fentanyl Citrate (Fentanyl 2ml Vial) 75 mcg 1X ONCE IVP Last administered on 02/09/21at 16:45; Start 02/09/21 at 16:45; Stop 02/09/21 at 16:47; Status DC Propofol (Diprivan) 200 mg 1X ONCE IV ; Start 02/09/21 at 17:15; Stop 02/09/21 at 17:16; Status DC Lidocaine HCl (Lidocaine HCl 2% Abboject) 100 mg 1X ONCE IV ; Start 02/09/21 at 17:15; Stop 02/09/21 at 17:16; Status DC [place] (Zemuron) 50 mg 1X ONCE IV ; Start 02/09/21 at 17:15; Stop 02/09/21 at 17:16; Status DC Propofol 100 ml @ 0 mls/hr CONT PRN PRN IV SEDATION; Start 02/09/21 at 17:15; Stop 02/10/21 at 05:14; Status DC Cefazolin Sodium (Ancef) 1 gm STK-MED ONCE IVP ; Start 02/09/21 at 17:28; Stop 02/09/21 at 17:28; Status DC Fentanyl Citrate (Fentanyl 2ml Vial) 100 mcg STK-MED ONCE .ROUTE ; Start 02/09/21 at 17:43; Stop 02/09/21 at 17:43; Status DC [place] (Zemuron) 100 mg STK-MED ONCE .ROUTE ; Start 02/09/21 at 17:58; Stop 02/09/21 at 17:59; Status DC Vecuronium [place] (Norcuron Bolus) 10 mg STK-MED ONCE IV ; Start 02/09/21 at 18:49; Stop 02/09/21 at 18:50; Status DC Sodium Chloride (SODIUM CHLORIDE 20ml) 20 ml STK-MED ONCE IJ ; Start 02/09/21 at 18:50; Stop 02/09/21 at 18:50; Status DC Sevoflurane (Ultane) 90 ml STK-MED ONCE IH ; Start 02/09/21 at 19:20; Stop 02/09/21 at 19:21; Status DC Fentanyl Citrate 30 ml @ 2.5 mls/hr CONT PRN IV SEE PROTOCOL Last administered on 02/09/21at 23:40; Start 02/09/21 at 23:15; Stop 02/10/21 at 04:43; Status DC Fentanyl Citrate 55 ml @ 0 mls/hr CONT PRN IV SEE I/O Last administered on 02/14/21at 10:16; Start 02/10/21 at 05:00 Potassium Chloride/Dextrose/ Sod Cl 1,000 ml @ 80 mls/hr [id number] IV ; Start 02/10/21 at 09:00; Stop 02/10/21 at 13:21; Status DC Pantoprazole Sodium (PROTONIX VIAL for IV PUSH) 40 mg DAILYAC IVP Last administered on 02/15/21at 08:31; Start 02/10/21 at 09:00 Lidocaine HCl (Buffered Lidocaine 1%) 3 ml STK-MED ONCE .ROUTE ; Start 02/10/21 at 13:18; Stop 02/10/21 at 13:18; Status DC Sodium Chloride 1,000 ml @ 80 mls/hr [id number] IV Last administered on 02/12/21at 03:00; Start 02/10/21 at 13:30; Stop 02/12/21 at 15:36; Status DC Lidocaine HCl (Buffered Lidocaine 1%) 6 ml 1X ONCE INJ Last administered on 02/10/21at 13:57; Start 02/10/21 at 13:45; Stop 02/10/21 at 13:46; Status DC Potassium Chloride/Water 100 ml @ 100 mls/hr Q1H IV Last administered on 02/11/21at 10:07; Start 02/11/21 at 08:00; Stop 02/11/21 at 09:59; Status DC Piperacillin Sod/ Tazobactam Sod 3.375 gm/Sodium Chloride 50 ml @ 100 mls/hr Q6HRS IV Last administered on 02/15/21at 05:38; Start 02/11/21 at 09:00 Info (Tpn Per Pharmacy) 1 each PRN DAILY PRN MC SEE COMMENTS Last administered on 02/14/21at 14:28; Start 02/11/21 at 11:15 Sodium Chloride 90 meq/Potassium Chloride 50 meq/ Potassium Phosphate 13.6 mmol/Magnesium Sulfate 10 meq/ Calcium Gluconate 10 meq/ Multivitamins 5 ml/Zinc/Copper/ Manganese/ Selenium 1 ml/ Total Parenteral Nutrition/Amino Acids/Dextrose 1,512 ml @ 63 mls/hr TPN CONT IV Last administered on 02/11/21at 22:32; Start 02/11/21 at 22:00; Stop 02/12/21 at 21:59; Status DC Furosemide (Lasix) 20 mg 1X ONCE IVP Last administered on 02/11/21at 15:11; Start 02/11/21 at 15:30; Stop 02/11/21 at 15:31; Status DC Furosemide (Lasix) 20 mg 1X ONCE IVP Last administered on 02/11/21at 17:00; Start 02/11/21 at 17:00; Stop 02/11/21 at 17:01; Status DC Midazolam HCl 100 ml @ 1 mls/hr CONT PRN IV SEE PROTOCOL Last administered on 02/13/21at 20:58; Start 02/11/21 at 19:30 Acetaminophen (Tylenol Supp) 650 mg PRN Q6HRS PRN [place] MILD PAIN / TEMP > 100.3'F; Start 02/11/21 at 21:15 Sodium Chloride 80 meq/Potassium Chloride 50 meq/ Potassium Phosphate 13.6 mmol/Magnesium Sulfate 6 meq/ Calcium Gluconate 10 meq/ Multivitamins 5 ml/Zinc/Copper/ Manganese/ Selenium 1 ml/ Total Parenteral Nutrition/Amino Acids/Dextrose 1,512 ml @ 63 mls/hr TPN CONT IV Last administered on 02/12/21at 22:09; Start 02/12/21 at 22:00; Stop 02/13/21 at 21:59; Status DC Furosemide (Lasix) 40 mg 1X ONCE IVP Last administered on 02/12/21at 12:44; Start 02/12/21 at 12:30; Stop 02/12/21 at 12:31; Status DC Insulin Human Lispro (HumaLOG) 0-5 UNITS Q6HRS SQ Last administered on 02/15/21at 05:39; Start 02/12/21 at 12:00 Dextrose (Dextrose 50%-Water Syringe) 12.5 gm PRN Q15MIN PRN IV SEE COMMENTS; Start 02/12/21 at 12:15 Clonidine HCl (Catapres Tts-3) 1 patch WEEKLY TD Last administered on 02/13/21at 11:47; Start 02/13/21 at 11:00 Sodium Chloride 80 meq/Potassium Chloride 50 meq/ Potassium Phosphate 13.6 mmol/Magnesium Sulfate 6 meq/ Calcium Gluconate 10 meq/ Multivitamins 5 ml/Zinc/Copper/ Manganese/ Selenium 1 ml/ Total Parenteral Nutrition/Amino Acids/Dextrose 1,512 ml @ 63 mls/hr TPN CONT IV Last administered on 02/13/21at 21:42; Start 02/13/21 at 22:00; Stop 02/14/21 at 21:59; Status DC Potassium Acetate 50 meq/Potassium Phosphate 13.6 mmol/Magnesium Sulfate 6 meq/ Calcium Gluconate 10 meq/ Multivitamins 5 ml/Zinc/Copper/ Manganese/ Selenium 1 ml/ Total Parenteral Nutrition/Amino Acids/Dextrose 1,512 ml @ 63 mls/hr TPN CONT IV Last administered on 02/14/21at 21:59; Start 02/14/21 at 22:00; Stop 02/15/21 at 21:59 Insulin Glargine (Lantus Syringe) 10 unit QHS SQ Last administered on 02/14/21at 22:00; Start 02/14/21 at 21:00 Hydralazine HCl (Apresoline Inj) 10 mg PRN Q4HRS PRN IVP ELEVATED BP, SEE COMMENTS Last administered on 02/15/21at 08:33; Start 02/14/21 at 16:00 Vitals/I & O Vital Sign - Last 24 Hours 02/14/21 02/14/21 02/14/21 02/14/21 09:00 09:15 10:00 10:16 Pulse 63 61 Resp 20 20 B/P (MAP) 142/68 (92) 145/66 (92) Pulse Ox 93 95 93 93 O2 Delivery Ventilator Ventilator Ventilator 02/14/21 02/14/21 02/14/21 02/14/21 10:46 11:00 11:29 11:40 Pulse 60 61 Resp 21 B/P (MAP) 150/78 (102) 150/68 Pulse Ox 93 93 93 O2 Delivery Ventilator Ventilator 02/14/21 02/14/21 02/14/21 02/14/21 11:58 12:00 12:00 13:00 Temp 97.7 97.7 Pulse 59 58 Resp 21 21 B/P (MAP) 150/78 (102) 146/66 (92) Pulse Ox 95 95 O2 Delivery Ventilator Mechanical Ventilator Ventilator 02/14/21 02/14/21 02/14/21 02/14/21 13:08 14:00 14:13 15:00 Pulse 58 60 58 Resp 20 22 B/P (MAP) 152/68 (96) 151/76 156/71 (99) Pulse Ox 95 90 94 O2 Delivery Ventilator Ventilator Ventilator 02/14/21 02/14/21 02/14/21 02/14/21 15:47 16:00 16:00 16:00 Temp 98.7 98.7 Pulse 60 Resp 25 B/P (MAP) 170/71 (104) Pulse Ox 94 94 O2 Delivery Ventilator Mechanical Ventilator Ventilator 02/14/21 02/14/21 02/14/21 02/14/21 16:47 17:00 17:21 17:26 Pulse 67 66 72 Resp 36 B/P (MAP) 181/87 186/74 (111) 181/78 Pulse Ox 94 95 O2 Delivery Ventilator Ventilator 02/14/21 02/14/21 02/14/21 02/14/21 18:00 19:00 20:00 20:00 Pulse 68 72 Resp 30 30 B/P (MAP) 168/72 (104) 168/72 (104) Pulse Ox 94 94 O2 Delivery Ventilator Ventilator Mechanical Ventilator 02/14/21 02/14/21 02/14/21 02/14/21 20:00 20:26 21:00 21:54 Temp 99.0 99.0 Pulse 81 83 81 Resp 31 29 B/P (MAP) 168/72 (104) 191/81 (117) 194/81 Pulse Ox 94 95 95 O2 Delivery Ventilator Ventilator Ventilator 02/14/21 02/14/21 02/14/21 02/14/21 21:59 22:00 23:00 23:48 Pulse 81 84 77 81 Resp 29 30 B/P (MAP) 193/81 197/82 (120) 187/79 (115) 193/81 Pulse Ox 96 96 O2 Delivery Ventilator Ventilator 02/14/21 02/15/21 02/15/21 02/15/21 23:59 00:00 00:00 00:02 Temp 99.0 99.0 Pulse 80 Resp 29 B/P (MAP) 179/80 (113) Pulse Ox 97 97 O2 Delivery Mechanical Ventilator Ventilator Ventilator 02/15/21 02/15/21 02/15/21 02/15/21 01:00 02:00 02:18 02:24 Pulse 83 78 83 Resp 27 27 B/P (MAP) 171/72 (105) 170/75 (106) 171/72 Pulse Ox 96 97 96 O2 Delivery Ventilator Ventilator Ventilator 02/15/21 02/15/21 02/15/21 02/15/21 02:24 03:00 04:00 04:00 Temp 98.7 98.7 Pulse 83 72 75 Resp 28 26 B/P (MAP) 171/72 155/70 (98) 159/70 (99) Pulse Ox 97 97 O2 Delivery Ventilator Ventilator 02/15/21 02/15/21 02/15/21 02/15/21 04:00 04:51 05:00 05:22 Pulse 71 75 Resp 26 B/P (MAP) 158/70 (99) 159/70 Pulse Ox 97 97 O2 Delivery Mechanical Ventilator Ventilator Ventilator 02/15/21 02/15/21 02/15/21 02/15/21 06:00 07:00 07:25 08:00 Temp 98.6 98.6 Pulse 70 64 66 Resp 28 20 25 B/P (MAP) 160/70 (100) 156/70 (98) 170/68 (102) Pulse Ox 96 97 95 97 O2 Delivery Ventilator Ventilator Ventilator Ventilator 02/15/21 02/15/21 02/15/21 08:00 08:00 08:33 Pulse 66 B/P (MAP) 170/68 O2 Delivery Mechanical Ventilator Intake and Output 02/14/21 02/14/21 02/15/21 15:00 23:00 07:00 Intake Total 100 ml 1928 ml 2584.9 ml Output Total 700 ml 1475 ml 1000 ml Balance -600 ml 453 ml 1584.9 ml Justicifation of Admission Dx: Justifications for Admission: Justification of Admission Dx: Yes Acute Hemorrhagic Stroke: Acute Hemorrhagic Stroke LESLI ALCOCER MD Feb 15, 2021 08:57
--- NOTE | 2021-02-15 10:17 | RAD ---
EXAM: Bilateral upper extremity venous Doppler sonogram. HISTORY: Pain and swelling. TECHNIQUE: Kulkarni scale and color Doppler sonographic evaluation of the left upper extremity veins with spectral waveform analysis was performed. FINDINGS: There is normal color flow, normal compressibility and there are normal spectral waveforms in the upper extremity veins. IMPRESSION: No Doppler evidence of upper extremity venous thrombosis. Electronically signed by: Izzy Braswell MD (02/15/2021 10:14 AM) [id number]
--- NOTE | 2021-02-15 10:22 | PDOC ---
PULMONARY PROGRESS NOTES DATE: 02/15/21 TIME: 10:22 Subjective Patient sedated on assist control ventilation Vitals Vital Signs Date Time Temp Pulse Resp B/P (MAP) Pulse Ox O2 Delivery O2 Flow Rate FiO2 02/15/21 09:47 95 Ventilator 02/15/21 08:33 66 170/68 02/15/21 08:00 98.6 25 98.6 Comments ros unable to obtain sedated on vent Lungs: Clear, Crackles Cardiovascular: S1, S2 Abdomen: Soft, Non-tender Extremities: No Edema Skin: Warm Labs Laboratory Tests Test 02/13/21 12:18 02/13/21 17:54 02/14/21 00:10 02/14/21 05:39 Glucose (Fingerstick) 224 mg/dL (70-99) 218 mg/dL (70-99) 248 mg/dL (70-99) 232 mg/dL (70-99) Test 02/14/21 05:40 02/14/21 08:00 02/14/21 11:22 02/14/21 16:53 White Blood Count 8.1 x10^3/uL (4.0-11.0) Red Blood Count 3.91 x10^6/uL (4.30-5.70) Hemoglobin 11.7 g/dL (13.0-17.5) Hematocrit 35.5 % (39.0-53.0) Mean Corpuscular Volume 91 fL (79-100) Mean Corpuscular Hemoglobin 30 pg (25-35) Mean Corpuscular Hemoglobin Concent 33 g/dL (31-37) Red Cell Distribution Width 13.7 % (11.5-14.5) Platelet Count 225 x10^3/uL (140-400) Neutrophils (%) (Auto) 80 % (31-73) Lymphocytes (%) (Auto) 12 % (24-48) Monocytes (%) (Auto) 7 % (0-9) Eosinophils (%) (Auto) 1 % (0-3) Basophils (%) (Auto) 1 % (0-3) Neutrophils # (Auto) 6.5 x10^3/uL (1.8-7.7) Lymphocytes # (Auto) 0.9 x10^3/uL (1.0-4.8) Monocytes # (Auto) 0.5 x10^3/uL (0.0-1.1) Eosinophils # (Auto) 0.1 x10^3/uL (0.0-0.7) Basophils # (Auto) 0.0 x10^3/uL (0.0-0.2) Sodium Level 148 mmol/L (136-145) Potassium Level 4.7 mmol/L (3.5-5.1) Chloride Level 111 mmol/L (98-107) Carbon Dioxide Level 25 mmol/L (21-32) Anion Gap 12 (6-14) Blood Urea Nitrogen 18 mg/dL (8-26) Creatinine 1.0 mg/dL (0.7-1.3) Estimated GFR (Cockcroft-Gault) 92.2 Glucose Level 258 mg/dL (70-99) Calcium Level 9.0 mg/dL (8.5-10.1) Phosphorus Level 3.7 mg/dL (2.6-4.7) Magnesium Level 2.2 mg/dL (1.8-2.4) O2 Saturation 92 % (92-99) Arterial Blood pH 7.36 (7.35-7.45) Arterial Blood pCO2 at Patient Temp 43 mmHg (35-46) Arterial Blood pO2 at Patient Temp 70 mmHg (65-108) Arterial Blood HCO3 23 mmol/L (21-28) Arterial Blood Base Excess -2 mmol/L (-3-3) FiO2 50% vent Glucose (Fingerstick) 236 mg/dL (70-99) 234 mg/dL (70-99) Test 02/14/21 23:56 02/15/21 05:37 02/15/21 05:40 02/15/21 07:00 Glucose (Fingerstick) 269 mg/dL (70-99) 260 mg/dL (70-99) Sodium Level 147 mmol/L (136-145) Potassium Level 4.3 mmol/L (3.5-5.1) Chloride Level 112 mmol/L (98-107) Carbon Dioxide Level 22 mmol/L (21-32) Anion Gap 13 (6-14) Blood Urea Nitrogen 21 mg/dL (8-26) Creatinine 1.0 mg/dL (0.7-1.3) Estimated GFR (Cockcroft-Gault) 92.2 Glucose Level 284 mg/dL (70-99) Calcium Level 9.3 mg/dL (8.5-10.1) Phosphorus Level 3.8 mg/dL (2.6-4.7) Magnesium Level 2.1 mg/dL (1.8-2.4) O2 Saturation 94 % (92-99) Arterial Blood pH 7.41 (7.35-7.45) Arterial Blood pCO2 at Patient Temp 34 mmHg (35-46) Arterial Blood pO2 at Patient Temp 73 mmHg (65-108) Arterial Blood HCO3 21 mmol/L (21-28) Arterial Blood Base Excess -3 mmol/L (-3-3) FiO2 50/vent Laboratory Tests Test 02/14/21 11:22 02/14/21 16:53 02/14/21 23:56 02/15/21 05:37 Glucose (Fingerstick) 236 mg/dL (70-99) 234 mg/dL (70-99) 269 mg/dL (70-99) 260 mg/dL (70-99) Test 02/15/21 05:40 02/15/21 07:00 Sodium Level 147 mmol/L (136-145) Potassium Level 4.3 mmol/L (3.5-5.1) Chloride Level 112 mmol/L (98-107) Carbon Dioxide Level 22 mmol/L (21-32) Anion Gap 13 (6-14) Blood Urea Nitrogen 21 mg/dL (8-26) Creatinine 1.0 mg/dL (0.7-1.3) Estimated GFR (Cockcroft-Gault) 92.2 Glucose Level 284 mg/dL (70-99) Calcium Level 9.3 mg/dL (8.5-10.1) Phosphorus Level 3.8 mg/dL (2.6-4.7) Magnesium Level 2.1 mg/dL (1.8-2.4) O2 Saturation 94 % (92-99) Arterial Blood pH 7.41 (7.35-7.45) Arterial Blood pCO2 at Patient Temp 34 mmHg (35-46) Arterial Blood pO2 at Patient Temp 73 mmHg (65-108) Arterial Blood HCO3 21 mmol/L (21-28) Arterial Blood Base Excess -3 mmol/L (-3-3) FiO2 50/vent Comments IMPRESSION: Chest x-ray 02/13 1. Stable support lines and tubes. 2. Severe right upper lobe predominant bullous emphysema. 3. Stable right perihilar linear atelectasis or infiltrate superimposed on diffuse interstitial prominence and small pleural effusions. Impression . IMPRESSION: 1. Acute hypoxic respiratory failure multifactorial 2. Abnormal x-ray 3. Long history of tobaccoism. CT angiogram showed bullous emphysema in the upper lobes. 3. Acute kidney injury. 4. Leukocytosi 5. s/p Right occipital craniotomy with evacuation of intracerebral hematoma. 6. Encephalopathy, multifactorial 7. Uncontrolled hypertension CT head 02/13, discussed with Dr. Louie IMPRESSION: 1. Expected interval evolution of a right posterior temporal/occipital intraparenchymal hematoma status post decompressive craniotomy. 2. Expected evolution of a small amount of subarachnoid and intraventricular clot. DATE OF SURGERY: 02/09/2021 PREOPERATIVE DIAGNOSIS: Right posterior temporoparietal occipital intracerebral hemorrhage with neurologic deterioration. POSTOPERATIVE DIAGNOSIS: Right posterior temporoparietal occipital intracerebral hemorrhage with neurologic deterioration. OPERATION PERFORMED: Right occipital craniotomy with evacuation of intracerebral hematoma. Plan . Updated 02/15, blood pressure better control Antibiotics per ID When sedation is off, patient not in sync with the ventilator Suspect he may require tracheotomy Follow neurology and neurosurgery input Discussed with RN Updated 02/14 Discussed with RN, try to titrate sedation off Control blood pressure, patient started on Cardene, hydralazine Started on Catapres patch ABG chest x-ray noted Discussed with neurosurgery Neurosurgery is hopeful that patient will awaken Not ready for spontaneous trial Empiric antibiotics for fever MANJULA PADILLA MD Feb 15, 2021 10:22
--- NOTE | 2021-02-15 10:37 | PDOC ---
Renal-Progress Notes Subjective Notes Notes STILL ON THE VENT History of Present Illness Hx of present illness NO ACUTE CHANGES Vitals Vitals Vital Signs Date Time Temp Pulse Resp B/P (MAP) Pulse Ox O2 Delivery O2 Flow Rate FiO2 02/15/21 09:47 95 Ventilator 02/15/21 08:33 66 170/68 02/15/21 08:00 98.6 25 98.6 Weight Weight [ ] I.O. Intake and Output Intake and Output 02/15/21 07:00 Intake Total 4612.9 ml Output Total 3175 ml Balance 1437.9 ml Intake IV Total 4502.9 ml Other 110 ml Output Urine Total 3025 ml Gastric Drainage Total 150 ml Labs Labs Laboratory Tests Test 02/14/21 11:22 02/14/21 16:53 02/14/21 23:56 02/15/21 05:37 Glucose (Fingerstick) 236 mg/dL (70-99) 234 mg/dL (70-99) 269 mg/dL (70-99) 260 mg/dL (70-99) Test 02/15/21 05:40 02/15/21 07:00 Sodium Level 147 mmol/L (136-145) Potassium Level 4.3 mmol/L (3.5-5.1) Chloride Level 112 mmol/L (98-107) Carbon Dioxide Level 22 mmol/L (21-32) Anion Gap 13 (6-14) Blood Urea Nitrogen 21 mg/dL (8-26) Creatinine 1.0 mg/dL (0.7-1.3) Estimated GFR (Cockcroft-Gault) 92.2 Glucose Level 284 mg/dL (70-99) Calcium Level 9.3 mg/dL (8.5-10.1) Phosphorus Level 3.8 mg/dL (2.6-4.7) Magnesium Level 2.1 mg/dL (1.8-2.4) O2 Saturation 94 % (92-99) Arterial Blood pH 7.41 (7.35-7.45) Arterial Blood pCO2 at Patient Temp 34 mmHg (35-46) Arterial Blood pO2 at Patient Temp 73 mmHg (65-108) Arterial Blood HCO3 21 mmol/L (21-28) Arterial Blood Base Excess -3 mmol/L (-3-3) FiO2 50/vent Micro Micro Microbiology 02/11/21 Blood Culture - Preliminary, Resulted NO GROWTH AFTER 3 DAYS 02/11/21 Gram Stain Evaluation - Final, Complete 02/11/21 Respiratory Culture - Final, Complete Review of Systems Constitutional: yes: unresponsive Physical Exam General Appearance: no apparent distress Skin: warm Heart: S1S2 Abdomen: soft, distension, other (NO BS) Extremities: pulses present Neurology: other (SEDATED) Assessment Assessment IMP MARVIN - RESOLVED WITH CR OF 1.0 HYPOKALEMIA-CORRECTED HYPERNATREMIA ACUTE RESP FAILURE PROB ASP PNA ICB-S/P CRANIOTOMY AND HEMATOMA EVACATION ACUTE RESP FAILURE HX OF COPD ILEUS LABILE HTN PLAN CONTROL BP GOAL SBP LESS THAN 140 CARDENE GTT NEEDED PRN HYDRALAZINE CONT CATAPRESS PATCH CONT TPN-CHANGES REPLACE ELECTROLYTES NEEDED ANTIBIOTICS VENT SUPPORT NOT MUCH OVERALL IMPROVEMENT WILL FOLLOW ESTEBAN PERKINS MD Feb 15, 2021 10:37
[2021-02-15] MEDS: TPN PER PHARMACY MC PRN (12:29)
--- NOTE | 2021-02-15 12:30 | NUR ---
Pharmacy TPN Dosing Note S: COOPER CHAVEZ is a 61 year old M Currently receiving Central Continuous TPN started 02/11/21 B:Pertinent PMH: ILEUS, UNABLE TO START TUBE FEEDS Height: 6 feet, 2 inches Weight: 114.9 kg Current diet: NPO LABS: Sodium: 147 Potassium: 4.3 Chloride: 112 Calcium: 9.3 Corrected Calcium: 9.78 Magnesium: 2.1 CO2: 22 SCr: 1 Glucose: 284 Albumin: 3.4 AST: 17 ALT: 21 TPN FORMULA: TPN TYPE: Central Continuous AMINO ACIDS: 60 gm DEXTROSE: 195 gm LIPIDS: 0 gm SODIUM CHLORIDE: - mEq SODIUM ACETATE: - mEq SODIUM PHOSPHATE: - mmol POTASSIUM CHLORIDE: - mEq POTASSIUM ACETATE: 50 mEq POTASSIUM PHOSPHATE: 13.6 mmol MAGNESIUM: 6 mEq CALCIUM: 10 mEq INSULIN: - units MULTIPLE VITAMIN: 5 ml TRACE ELEMENTS: 1 ml ml(s) TPN PLAN: Na= 147, continue without sodium On propofol at 40 mcg/kg/min - continue TPN with no lipids. Continue same TPN. [facility] tomorrow. R: Continue TPN as written above. Will monitor electrolytes, glucose, and tolerance to TPN. DIVYA ROSALES RPH, 02/15/21 [id number]
[2021-02-15] MEDS ORDERED: IV NORMAL SALINE 500ML BAG 500 ML IV PRN (14:15)
[2021-02-15] MEDS ORDERED: ATROPINE 0.5 MG/5 ML DISP.SYRINGE. IV PRN (14:15)
--- NOTE | 2021-02-15 15:00 | NUR ---
Turned Propofol off added Precedex with hopes of Dr Louie being able to do neuro assessment when he rounds. Titrated Precedex up to 0.8 mcg within first 30 min, along with bolus. Patient unstable, stacking breaths on the ventilator, RR 38. Patient settled down after bolus, tolerating ventilator, RR 24.
[2021-02-15] MEDS: DEXMEDETOMIDINE 400 MCG in IV NORMAL SALINE 100ML 96 ML IV PRN ×3 (15:04→22:10)
--- NOTE | 2021-02-15 16:05 | NUR ---
SS following up with discharge planning. SS reviewed pt chart and discussed with pt RN. Pt is currently on the vent at 50%. Pt on TPN. Pt on IV Zosyn. Pt on Propofol, Fentanyl, and Precedex. Self pay. Med Assist following. SS will continue to follow for discharge planning.
--- NOTE | 2021-02-15 17:16 | PDOC ---
PROGRESS NOTES Date of Service DATE: 02/15/21 TIME: 17:14 Subjective Subjective POD #6 Right occipital craniotomy with evacuation of intracerebral hematoma remains sedated on vent, weaning sedation, on Cardene no change Objective Objective Vital Signs Date Time Temp Pulse Resp B/P (MAP) Pulse Ox O2 Delivery O2 Flow Rate FiO2 02/15/21 17:00 99.0 63 27 120/61 (80) 99 Ventilator 99.0 Intake and Output 02/15/21 07:00 Intake Total 4612.9 ml Output Total 3175 ml Balance 1437.9 ml Intake IV Total 4502.9 ml Other 110 ml Output Urine Total 3025 ml Gastric Drainage Total 150 ml Physical Exam Neuro: Other (sedated, pinpoint pupils) Plan Plan of Care weaning sedation BP control wean from vent per pulmonary D/W RN Comment Review of Relevant I have reviewed the following items neela (where applicable) has been applied. Labs Laboratory Tests Test 02/13/21 17:54 02/14/21 00:10 02/14/21 05:39 02/14/21 05:40 Glucose (Fingerstick) 218 mg/dL (70-99) 248 mg/dL (70-99) 232 mg/dL (70-99) White Blood Count 8.1 x10^3/uL (4.0-11.0) Red Blood Count 3.91 x10^6/uL (4.30-5.70) Hemoglobin 11.7 g/dL (13.0-17.5) Hematocrit 35.5 % (39.0-53.0) Mean Corpuscular Volume 91 fL (79-100) Mean Corpuscular Hemoglobin 30 pg (25-35) Mean Corpuscular Hemoglobin Concent 33 g/dL (31-37) Red Cell Distribution Width 13.7 % (11.5-14.5) Platelet Count 225 x10^3/uL (140-400) Neutrophils (%) (Auto) 80 % (31-73) Lymphocytes (%) (Auto) 12 % (24-48) Monocytes (%) (Auto) 7 % (0-9) Eosinophils (%) (Auto) 1 % (0-3) Basophils (%) (Auto) 1 % (0-3) Neutrophils # (Auto) 6.5 x10^3/uL (1.8-7.7) Lymphocytes # (Auto) 0.9 x10^3/uL (1.0-4.8) Monocytes # (Auto) 0.5 x10^3/uL (0.0-1.1) Eosinophils # (Auto) 0.1 x10^3/uL (0.0-0.7) Basophils # (Auto) 0.0 x10^3/uL (0.0-0.2) Sodium Level 148 mmol/L (136-145) Potassium Level 4.7 mmol/L (3.5-5.1) Chloride Level 111 mmol/L (98-107) Carbon Dioxide Level 25 mmol/L (21-32) Anion Gap 12 (6-14) Blood Urea Nitrogen 18 mg/dL (8-26) Creatinine 1.0 mg/dL (0.7-1.3) Estimated GFR (Cockcroft-Gault) 92.2 Glucose Level 258 mg/dL (70-99) Calcium Level 9.0 mg/dL (8.5-10.1) Phosphorus Level 3.7 mg/dL (2.6-4.7) Magnesium Level 2.2 mg/dL (1.8-2.4) Test 02/14/21 08:00 02/14/21 11:22 02/14/21 16:53 02/14/21 23:56 O2 Saturation 92 % (92-99) Arterial Blood pH 7.36 (7.35-7.45) Arterial Blood pCO2 at Patient Temp 43 mmHg (35-46) Arterial Blood pO2 at Patient Temp 70 mmHg (65-108) Arterial Blood HCO3 23 mmol/L (21-28) Arterial Blood Base Excess -2 mmol/L (-3-3) FiO2 50% vent Glucose (Fingerstick) 236 mg/dL (70-99) 234 mg/dL (70-99) 269 mg/dL (70-99) Test 02/15/21 05:37 02/15/21 05:40 02/15/21 07:00 02/15/21 12:02 Glucose (Fingerstick) 260 mg/dL (70-99) 275 mg/dL (70-99) Sodium Level 147 mmol/L (136-145) Potassium Level 4.3 mmol/L (3.5-5.1) Chloride Level 112 mmol/L (98-107) Carbon Dioxide Level 22 mmol/L (21-32) Anion Gap 13 (6-14) Blood Urea Nitrogen 21 mg/dL (8-26) Creatinine 1.0 mg/dL (0.7-1.3) Estimated GFR (Cockcroft-Gault) 92.2 Glucose Level 284 mg/dL (70-99) Calcium Level 9.3 mg/dL (8.5-10.1) Phosphorus Level 3.8 mg/dL (2.6-4.7) Magnesium Level 2.1 mg/dL (1.8-2.4) O2 Saturation 94 % (92-99) Arterial Blood pH 7.41 (7.35-7.45) Arterial Blood pCO2 at Patient Temp 34 mmHg (35-46) Arterial Blood pO2 at Patient Temp 73 mmHg (65-108) Arterial Blood HCO3 21 mmol/L (21-28) Arterial Blood Base Excess -3 mmol/L (-3-3) FiO2 50/vent Laboratory Tests Test 02/14/21 23:56 02/15/21 05:37 02/15/21 05:40 02/15/21 07:00 Glucose (Fingerstick) 269 mg/dL (70-99) 260 mg/dL (70-99) Sodium Level 147 mmol/L (136-145) Potassium Level 4.3 mmol/L (3.5-5.1) Chloride Level 112 mmol/L (98-107) Carbon Dioxide Level 22 mmol/L (21-32) Anion Gap 13 (6-14) Blood Urea Nitrogen 21 mg/dL (8-26) Creatinine 1.0 mg/dL (0.7-1.3) Estimated GFR (Cockcroft-Gault) 92.2 Glucose Level 284 mg/dL (70-99) Calcium Level 9.3 mg/dL (8.5-10.1) Phosphorus Level 3.8 mg/dL (2.6-4.7) Magnesium Level 2.1 mg/dL (1.8-2.4) O2 Saturation 94 % (92-99) Arterial Blood pH 7.41 (7.35-7.45) Arterial Blood pCO2 at Patient Temp 34 mmHg (35-46) Arterial Blood pO2 at Patient Temp 73 mmHg (65-108) Arterial Blood HCO3 21 mmol/L (21-28) Arterial Blood Base Excess -3 mmol/L (-3-3) FiO2 50/vent Test 02/15/21 12:02 Glucose (Fingerstick) 275 mg/dL (70-99) Microbiology 02/11/21 Blood Culture - Preliminary, Resulted NO GROWTH AFTER 3 DAYS 02/11/21 Gram Stain Evaluation - Final, Complete 02/11/21 Respiratory Culture - Final, Complete Medications Current Medications Nicardipine HCl 50 mg/Sodium Chloride 250 ml @ 12.5 mls/hr CONT PRN IV SEE I/O RECORD Last administered on 02/15/21at 13:16; Start 02/09/21 at 06:15 Labetalol HCl (Normodyne Iv Push) 10 mg PRN Q2HR PRN IVP HYPERTENSION Last administered on 02/15/21at 10:49; Start 02/09/21 at 06:15 Lorazepam (Ativan Inj) 2 mg 1X ONCE IVP Last administered on 02/09/21at 10:54; Start 02/09/21 at 10:45; Stop 02/09/21 at 10:46; Status DC Lorazepam (Ativan Inj) 2 mg 1X ONCE IVP Last administered on 02/09/21at 11:00; Start 02/09/21 at 11:00; Stop 02/09/21 at 11:01; Status DC Fentanyl Citrate (Fentanyl 2ml Vial) 25 mcg PRN Q2HR PRN IVP MODERATE TO SEVERE PAIN Last administered on 02/09/21at 13:37; Start 02/09/21 at 13:30 Info (Review Meds) 1 ea PRN 1X PRN MC SEE COMMENTS; Start 02/09/21 at 15:00 Acetaminophen (Tylenol Supp) 650 mg PRN Q6HRS PRN LA FEVER > 100.5'F or 38'C; Start 02/09/21 at 15:00; Stop 02/11/21 at 21:12; Status DC Albuterol Sulfate (Ventolin Neb Soln) 2.5 mg PRN Q4HRS PRN NEB SHORTNESS OF BREATH; Start 02/09/21 at 15:15 Iohexol (Omnipaque 350 Mg/ml) 75 ml 1X ONCE IV Last administered on 02/09/21at 15:52; Start 02/09/21 at 15:30; Stop 02/09/21 at 15:35; Status DC Iohexol (Omnipaque 350 Mg/ml) 100 ml STK-MED ONCE .ROUTE ; Start 02/09/21 at 15:26; Stop 02/09/21 at 15:27; Status DC Info (CONTRAST GIVEN -- Rx MONITORING) 1 each PRN DAILY PRN MC SEE COMMENTS; Start 02/09/21 at 15:45; Stop 02/11/21 at 15:44; Status DC Propofol 100 ml @ As Directed STK-MED ONCE IV ; Start 02/09/21 at 15:51; Stop 02/09/21 at 15:51; Status DC Rocuronium [place] (Zemuron) 50 mg STK-MED ONCE .ROUTE ; Start 02/09/21 at 15:51; Stop 02/09/21 at 15:51; Status DC Lidocaine HCl (Lidocaine HCl 2% Abboject) 100 mg STK-MED ONCE .ROUTE ; Start 02/09/21 at 15:52; Stop 02/09/21 at 15:53; Status DC Propofol 100 ml @ 3.507 mls/ hr CONT PRN IV PER PROTOCOL Last administered on 02/15/21at 08:32; Start 02/09/21 at 16:15 Lidocaine HCl (Lidocaine HCl 2% Abboject) 100 mg 1X ONCE IV Last administered on 02/09/21at 16:17; Start 02/09/21 at 16:15; Stop 02/09/21 at 16:17; Status DC Rocuronium [place] (Zemuron) 50 mg 1X ONCE IV Last administered on 02/09/21at 16:17; Start 02/09/21 at 16:15; Stop 02/09/21 at 16:17; Status DC Rocuronium [place] (Zemuron) 100 mg STK-MED ONCE .ROUTE ; Start 02/09/21 at 16:31; Stop 02/09/21 at 16:32; Status DC Gelatin (Gelfoam Size 100) 1 each STK-MED ONCE .ROUTE Last administered on 02/09/21at 17:49; Start 02/09/21 at 16:33; Stop 02/09/21 at 16:33; Status DC Bupivacaine HCl/ Epinephrine Bitart (Sensorcain-Epi 0.5%-1:165303 Mpf) 30 ml STK-MED ONCE .ROUTE Last administered on 02/09/21at 17:49; Start 02/09/21 at 16:33; Stop 02/09/21 at 16:33; Status DC Cellulose (Surgicel Hemostat 4x8) 1 each STK-MED ONCE .ROUTE Last administered on 02/09/21at 18:38; Start 02/09/21 at 16:33; Stop 02/09/21 at 16:33; Status DC Thrombin 20,000 unit STK-MED ONCE TP Last administered on 02/09/21at 17:49; Start 02/09/21 at 16:33; Stop 02/09/21 at 16:33; Status DC Fentanyl Citrate (Fentanyl 2ml Vial) 75 mcg 1X ONCE IVP Last administered on 02/09/21at 16:45; Start 02/09/21 at 16:45; Stop 02/09/21 at 16:47; Status DC Propofol (Diprivan) 200 mg 1X ONCE IV ; Start 02/09/21 at 17:15; Stop 02/09/21 at 17:16; Status DC Lidocaine HCl (Lidocaine HCl 2% Abboject) 100 mg 1X ONCE IV ; Start 02/09/21 at 17:15; Stop 02/09/21 at 17:16; Status DC Rocuronium [place] (Zemuron) 50 mg 1X ONCE IV ; Start 02/09/21 at 17:15; Stop 02/09/21 at 17:16; Status DC Propofol 100 ml @ 0 mls/hr CONT PRN PRN IV SEDATION; Start 02/09/21 at 17:15; Stop 02/10/21 at 05:14; Status DC Cefazolin Sodium (Ancef) 1 gm STK-MED ONCE IVP ; Start 02/09/21 at 17:28; Stop 02/09/21 at 17:28; Status DC Fentanyl Citrate (Fentanyl 2ml Vial) 100 mcg STK-MED ONCE .ROUTE ; Start 02/09/21 at 17:43; Stop 02/09/21 at 17:43; Status DC Rocuronium [place] (Zemuron) 100 mg STK-MED ONCE .ROUTE ; Start 02/09/21 at 17:58; Stop 02/09/21 at 17:59; Status DC Vecuronium [place] (Norcuron Bolus) 10 mg STK-MED ONCE IV ; Start 02/09/21 at 18:49; Stop 02/09/21 at 18:50; Status DC Sodium Chloride (SODIUM CHLORIDE 20ml) 20 ml STK-MED ONCE IJ ; Start 02/09/21 at 18:50; Stop 02/09/21 at 18:50; Status DC Sevoflurane (Ultane) 90 ml STK-MED ONCE IH ; Start 02/09/21 at 19:20; Stop 02/09/21 at 19:21; Status DC Fentanyl Citrate 30 ml @ 2.5 mls/hr CONT PRN IV SEE PROTOCOL Last administered on 02/09/21at 23:40; Start 02/09/21 at 23:15; Stop 02/10/21 at 04:43; Status DC Fentanyl Citrate 55 ml @ 0 mls/hr CONT PRN IV SEE I/O Last administered on 02/14/21at 10:16; Start 02/10/21 at 05:00 Potassium Chloride/Dextrose/ Sod Cl 1,000 ml @ 80 mls/hr [id number] IV ; Start 02/10/21 at 09:00; Stop 02/10/21 at 13:21; Status DC Pantoprazole Sodium (PROTONIX VIAL for IV PUSH) 40 mg DAILYAC IVP Last administered on 02/15/21at 08:31; Start 02/10/21 at 09:00 Lidocaine HCl (Buffered Lidocaine 1%) 3 ml STK-MED ONCE .ROUTE ; Start 02/10/21 at 13:18; Stop 02/10/21 at 13:18; Status DC Sodium Chloride 1,000 ml @ 80 mls/hr [id number] IV Last administered on 02/12/21at 03:00; Start 02/10/21 at 13:30; Stop 02/12/21 at 15:36; Status DC Lidocaine HCl (Buffered Lidocaine 1%) 6 ml 1X ONCE INJ Last administered on 02/10/21at 13:57; Start 02/10/21 at 13:45; Stop 02/10/21 at 13:46; Status DC Potassium Chloride/Water 100 ml @ 100 mls/hr Q1H IV Last administered on 02/11/21at 10:07; Start 02/11/21 at 08:00; Stop 02/11/21 at 09:59; Status DC Piperacillin Sod/ Tazobactam Sod 3.375 gm/Sodium Chloride 50 ml @ 100 mls/hr Q6HRS IV Last administered on 02/15/21at 12:04; Start 02/11/21 at 09:00 Info (Tpn Per Pharmacy) 1 each PRN DAILY PRN MC SEE COMMENTS Last administered on 02/15/21at 12:29; Start 02/11/21 at 11:15 Sodium Chloride 90 meq/Potassium Chloride 50 meq/ Potassium Phosphate 13.6 mmol/Magnesium Sulfate 10 meq/ Calcium Gluconate 10 meq/ Multivitamins 5 ml/Zinc/Copper/ Manganese/ Selenium 1 ml/ Total Parenteral Nutrition/Amino Acids/Dextrose 1,512 ml @ 63 mls/hr TPN CONT IV Last administered on 02/11/21at 22:32; Start 02/11/21 at 22:00; Stop 02/12/21 at 21:59; Status DC Furosemide (Lasix) 20 mg 1X ONCE IVP Last administered on 02/11/21at 15:11; St art 02/11/21 at 15:30; Stop 02/11/21 at 15:31; Status DC Furosemide (Lasix) 20 mg 1X ONCE IVP Last administered on 02/11/21at 17:00; Start 02/11/21 at 17:00; Stop 02/11/21 at 17:01; Status DC Midazolam HCl 100 ml @ 1 mls/hr CONT PRN IV SEE PROTOCOL Last administered on 02/13/21at 20:58; Start 02/11/21 at 19:30 Acetaminophen (Tylenol Supp) 650 mg PRN Q6HRS PRN LA MILD PAIN / TEMP > 100.3'F; Start 02/11/21 at 21:15 Sodium Chloride 80 meq/Potassium Chloride 50 meq/ Potassium Phosphate 13.6 mmol/Magnesium Sulfate 6 meq/ Calcium Gluconate 10 meq/ Multivitamins 5 ml/Zinc/Copper/ Manganese/ Selenium 1 ml/ Total Parenteral Nutrition/Amino Acids/Dextrose 1,512 ml @ 63 mls/hr TPN CONT IV Last administered on 02/12/21at 22:09; Start 02/12/21 at 22:00; Stop 02/13/21 at 21:59; Status DC Furosemide (Lasix) 40 mg 1X ONCE IVP Last administered on 02/12/21at 12:44; Start 02/12/21 at 12:30; Stop 02/12/21 at 12:31; Status DC Insulin Human Lispro (HumaLOG) 0-5 UNITS Q6HRS SQ Last administered on 02/15/21at 12:03; Start 02/12/21 at 12:00 Dextrose (Dextrose 50%-Water Syringe) 12.5 gm PRN Q15MIN PRN IV SEE COMMENTS; Start 02/12/21 at 12:15 Clonidine HCl (Catapres Tts-3) 1 patch WEEKLY TD Last administered on 02/13/21at 11:47; Start 02/13/21 at 11:00 Sodium Chloride 80 meq/Potassium Chloride 50 meq/ Potassium Phosphate 13.6 mmol/Magnesium Sulfate 6 meq/ Calcium Gluconate 10 meq/ Multivitamins 5 ml/Zi nc/Copper/ Manganese/ Selenium 1 ml/ Total Parenteral Nutrition/Amino Acids/Dextrose 1,512 ml @ 63 mls/hr TPN CONT IV Last administered on 02/13/21at 21:42; Start 02/13/21 at 22:00; Stop 02/14/21 at 21:59; Status DC Potassium Acetate 50 meq/Potassium Phosphate 13.6 mmol/Magnesium Sulfate 6 meq/ Calcium Gluconate 10 meq/ Multivitamins 5 ml/Zinc/Copper/ Manganese/ Selenium 1 ml/ Total Parenteral Nutrition/Amino Acids/Dextrose 1,512 ml @ 63 mls/hr TPN CONT IV Last administered on 02/14/21at 21:59; Start 02/14/21 at 22:00; Stop 02/15/21 at 21:59 Insulin Glargine (Lantus Syringe) 10 unit QHS SQ Last administered on 02/14/21at 22:00; Start 02/14/21 at 21:00 Hydralazine HCl (Apresoline Inj) 10 mg PRN Q4HRS PRN IVP ELEVATED BP, SEE COMMENTS Last administered on 02/15/21at 12:05; Start 02/14/21 at 16:00 Potassium Acetate 50 meq/Potassium Phosphate 13.6 mmol/Magnesium Sulfate 6 meq/ Calcium Gluconate 10 meq/ Multivitamins 5 ml/Zinc/Copper/ Manganese/ Selenium 1 ml/ Total Parenteral Nutrition/Amino Acids/Dextrose 1,512 ml @ 63 mls/hr TPN CONT IV ; Start 02/15/21 at 22:00; Stop 02/16/21 at 21:59 Dexmedetomidine HCl 400 mcg/ Sodium Chloride 100 ml @ 0 mls/hr CONT PRN IV PER PROTOCOL Last administered on 02/15/21at 15:04; Start 02/15/21 at 14:15 Sodium Chloride 500 ml @ 500 mls/hr 1X PRN PRN IV SEE COMMENTS; Start 02/15/21 at 14:15 Atropine Sulfate (ATROPINE 0.5mg SYRINGE) 0.5 mg PRN Q5MIN PRN IV SEE COMMENTS; Start 02/15/21 at 14:15 Vitals/I & O Vital Sign - Last 24 Hours 02/14/21 02/14/21 02/14/21 02/14/21 17:21 17:26 18:00 19:00 Pulse 72 68 72 Resp 30 30 B/P (MAP) 181/78 168/72 (104) 168/72 (104) Pulse Ox 95 94 94 O2 Delivery Ventilator Ventilator Ventilator 02/14/21 02/14/21 02/14/21 02/14/21 20:00 20:00 20:00 20:26 Temp 99.0 99.0 Pulse 81 Resp 31 B/P (MAP) 168/72 (104) Pulse Ox 94 95 O2 Delivery Mechanical Ventilator Ventilator Ventilator 02/14/21 02/14/21 02/14/21 02/14/21 21:00 21:54 21:59 22:00 Pulse 83 81 81 84 Resp 29 29 B/P (MAP) 191/81 (117) 194/81 193/81 197/82 (120) Pulse Ox 95 96 O2 Delivery Ventilator Ventilator 02/14/21 02/14/21 02/14/21 02/15/21 23:00 23:48 23:59 00:00 Pulse 77 81 Resp 30 B/P (MAP) 187/79 (115) 193/81 Pulse Ox 96 O2 Delivery Ventilator Mechanical Ventilator 02/15/21 02/15/21 02/15/21 02/15/21 00:00 00:02 01:00 02:00 Temp 99.0 99.0 Pulse 80 83 78 Resp 29 27 27 B/P (MAP) 179/80 (113) 171/72 (105) 170/75 (106) Pulse Ox 97 97 96 97 O2 Delivery Ventilator Ventilator Ventilator Ventilator 02/15/21 02/15/21 02/15/21 02/15/21 02:18 02:24 02:24 03:00 Pulse 83 83 72 Resp 28 B/P (MAP) 171/72 171/72 155/70 (98) Pulse Ox 96 97 O2 Delivery Ventilator Ventilator 02/15/21 02/15/21 02/15/21 02/15/21 04:00 04:00 04:00 04:51 Temp 98.7 98.7 Pulse 75 Resp 26 B/P (MAP) 159/70 (99) Pulse Ox 97 97 O2 Delivery Ventilator Mechanical Ventilator Ventilator 02/15/21 02/15/21 02/15/21 02/15/21 05:00 05:22 06:00 07:00 Pulse 71 75 70 64 Resp 26 28 20 B/P (MAP) 158/70 (99) 159/70 160/70 (100) 156/70 (98) Pulse Ox 97 96 97 O2 Delivery Ventilator Ventilator Ventilator 02/15/21 02/15/21 02/15/21 02/15/21 07:25 08:00 08:00 08:00 Temp 98.6 98.6 Pulse 66 Resp 25 B/P (MAP) 170/68 (102) Pulse Ox 95 97 O2 Delivery Ventilator Ventilator Mechanical Ventilator 02/15/21 02/15/21 02/15/21 02/15/21 08:33 09:00 09:47 10:00 Pulse 66 64 70 Resp 26 32 B/P (MAP) 170/68 165/68 (100) 167/74 (105) Pulse Ox 97 95 96 O2 Delivery Ventilator Ventilator Ventilator 02/15/21 02/15/21 02/15/21 02/15/21 10:49 10:53 11:00 12:00 Temp 98.4 98.4 Pulse 73 69 68 Resp 29 24 B/P (MAP) 163/70 164/70 (101) 167/69 (101) Pulse Ox 97 97 97 O2 Delivery Ventilator Ventilator Ventilator 02/15/21 02/15/21 02/15/21 02/15/21 12:00 12:00 12:05 13:00 Pulse 74 69 Resp 24 B/P (MAP) 173/75 155/67 (96) Pulse Ox 98 O2 Delivery Mechanical Ventilator Ventilator 02/15/21 02/15/21 02/15/21 02/15/21 14:00 14:00 15:00 15:45 Pulse 72 76 Resp 26 31 B/P (MAP) 173/82 (112) 164/68 (100) Pulse Ox 96 97 96 97 O2 Delivery Ventilator Ventilator Ventilator Ventilator 7/14/21 02/15/21 02/15/21 02/15/21 15:59 15:59 16:00 17:00 Temp 99.0 99.0 Pulse 65 63 Resp 28 27 B/P (MAP) 134/71 (92) 120/61 (80) Pulse Ox 98 99 O2 Delivery Mechanical Ventilator Ventilator Ventilator Intake and Output 02/14/21 02/14/21 02/15/21 15:00 23:00 07:00 Intake Total 100 ml 1928 ml 2584.9 ml Output Total 700 ml 1475 ml 1000 ml Balance -600 ml 453 ml 1584.9 ml Justifications for Admission Other Justification LUCINDA DENNY MD Feb 15, 2021 17:16
[2021-02-15] MEDS ORDERED: DEXTROSE 70% IV SCH (22:00)
[2021-02-15] MEDS ORDERED: TOTAL PARENTERAL NUTRITION IV SCH (22:00)
[2021-02-15] MEDS ORDERED: AMINO ACID IV SCH (22:00)
[2021-02-15] MEDS ORDERED: [UNRECOGNIZED DRUG - OTHER] IV SCH (22:00)
[2021-02-15] MEDS: INSULIN GLARGINE SYRINGE. SQ SCH (22:11)
[2021-02-16] VITALS (31 sets, daily range): BP systolic 133–224; BP diastolic 67–109
[2021-02-16] MEDS: PIPERACILLIN/TAZOBACTAM 3.375 GM in IV NORMAL SALINE 50ML 50 ML IV SCH ×5 (00:08→23:44)
[2021-02-16] MEDS: INSULIN LISPRO 300 UNITS/3 ML VIAL. SQ SCH ×5 (00:18→23:49)
[2021-02-16] MEDS: DEXMEDETOMIDINE 400 MCG in IV NORMAL SALINE 100ML 96 ML IV PRN ×7 (03:23→23:45)
[2021-02-16] MEDS: hydrALAZINE 20 MG/ML VIAL. IVP PRN ×3 (03:26→12:06)
[2021-02-16 06:35] LABS: CALCIUM 9.5 mg/dL (8.5-10.1); CREATININE 0.9 mg/dL (0.7-1.3); GFR 104.2; POTASSIUM 4.3 mmol/L (3.5-5.1)
--- NOTE | 2021-02-16 07:25 | PDOC ---
Infectious Disease Note Subjective: Subjective pt is sedated on vent Fio2 50% Peep 5 Awaiting trial for weaning Vital Signs: Vital Signs Vital Signs Date Time Temp Pulse Resp B/P (MAP) Pulse Ox O2 Delivery O2 Flow Rate FiO2 02/16/21 07:00 66 28 177/93 (121) 99 Ventilator 02/16/21 04:00 98.0 98.0 Physical Exam: PHYSICAL EXAM GENERAL: Sedated, orally intubated gentleman, HEENT: Both pupils are round and reacting. No conjunctival lesion noticed. ETT/OGT + NECK: Rt IJ clean LUNGS: coarse bs HEART: S1, S2 ABDOMEN: Soft, nontender, no organomegaly. EXTREMITIES: +edema, no cyanosis. SKIN:no gen rash NEUROLOGIC: unable to assess art line, central line clean Medications: Inpatient Meds: Medications reviewed. Labs: Lab Laboratory Tests Test 02/15/21 12:02 02/15/21 17:21 02/16/21 00:16 02/16/21 05:00 Glucose (Fingerstick) 275 mg/dL (70-99) 318 mg/dL (70-99) 259 mg/dL (70-99) Sodium Level 149 mmol/L (136-145) Potassium Level 4.3 mmol/L (3.5-5.1) Chloride Level 114 mmol/L (98-107) Carbon Dioxide Level 23 mmol/L (21-32) Anion Gap 12 (6-14) Blood Urea Nitrogen 27 mg/dL (8-26) Creatinine 0.9 mg/dL (0.7-1.3) Estimated GFR (Cockcroft-Gault) 104.2 Glucose Level 257 mg/dL (70-99) Calcium Level 9.5 mg/dL (8.5-10.1) Test 02/16/21 05:37 Glucose (Fingerstick) 231 mg/dL (70-99) Objective: Assessment: 1. Fever.Improved 2. Suspected aspiration.sputum cultures NRF 3. Intracranial bleed with mass effect, status post craniotomy and hematoma evacuation. 4. Encephalopathy 5. Respiratory failure. 6. Hypertension. 7. Chronic obstructive pulmonary disease. 8. MARVIN improved U/S BUE to neg for DVT Plan: Plan of Care cont Zosyn Monitor labs and cults cont supportive care D/W RAMU ANDERSON MD Feb 16, 2021 07:25
[2021-02-16] MEDS: PANTOPRAZOLE IV PUSH 40 MG VIAL. IVP SCH (08:17)
[2021-02-16 08:18] LABS: BASE EXCESS ABG -3 mmol/L (-3-3); HCO3 ABG 21 mmol/L (21-28); PCO2 ABG 34 mmHg (35-46); PO2 ABG 120 mmHg (65-108); SAT O2 ABG 98 % (92-99)
[2021-02-16 08:21] LABS: FIO2 ABG 50
--- NOTE | 2021-02-16 09:30 | NUR ---
Patient alert to name this morning on Precedex and Fentanyl. Opens eyes, moves left upper extremity, and can wiggle toes on left foot. Right side appears to be flaccid. After a couple of minutes patient became anxious, SBP >200, asynchronous with the ventilator. Multiple bolus's given to settle him down. Will monitor.
[2021-02-16] MEDS: TPN PER PHARMACY MC PRN (09:56)
--- NOTE | 2021-02-16 10:04 | NUR ---
Pharmacy TPN Dosing Note S: COOPER CHAVEZ is a 61 year old M Currently receiving Central Continuous TPN started 02/11/21 B:Pertinent PMH: ILEUS, UNABLE TO START TUBE FEEDS LABS: Sodium: 149 Potassium: 4.3 Chloride: 114 Calcium: 9.5 Corrected Calcium: 9.98 Magnesium: 2.1 CO2: 23 SCr: 0.9 Glucose: 231 Albumin: 3.4 AST: 17 ALT: 21 TPN FORMULA: TPN TYPE: Central Continuous AMINO ACIDS: 60 gm DEXTROSE: 195 gm LIPIDS: 0 gm SODIUM CHLORIDE: - mEq SODIUM ACETATE: - mEq SODIUM PHOSPHATE: - mmol POTASSIUM CHLORIDE: - mEq POTASSIUM ACETATE: 50 mEq POTASSIUM PHOSPHATE: 13.6 mmol MAGNESIUM: 6 mEq CALCIUM: 10 mEq INSULIN: - units MULTIPLE VITAMIN: 5 ml TRACE ELEMENTS: 1 ml ml(s) TPN PLAN: Na= 149, continue without sodium On propofol - continue TPN with no lipids. Continue same TPN. BMP tomorrow. R: Continue TPN Will monitor electrolytes, glucose, and tolerance to TPN. SOPHIA JOSEPH [facility] [place], 02/16/21 [id number]
--- NOTE | 2021-02-16 10:51 | PDOC ---
PROGRESS NOTES Date of Service: DATE: 02/16/21 TIME: 10:50 Chief Complaint Chief Complaint IMPRESSION Dizziness Large right temporo-occipital intraparenchymal bleed, most likely lobar hemorrhage from hypertension, consider venous sinus thrombosis, , aneurysmal bleed, Had craniotomy 02/09 evening Suspect aspiration, respiratory failure, hypertension, chronic obstructive pulmonary disease, improving acute kidney injury MORBID OBESITY History of Present Illness History of Present Illness 02/16/2021 POD #7 Right occipital craniotomy with evacuation of intracerebral hematoma sedated on vent Patient seen and examined at bedside Good response to IV Lasix Continue antibiotics per infectious disease Weaning ventilator and sedation as tolerated extubation in the next few days Plan of care discussed with bedside nurse Expected interval evolution of a right posterior temporal/occipital intraparenchymal hematoma status post decompressive craniotomy Large right temporo-occipital intraparenchymal bleed, most likely lobar hemorrhage from hypertension, consider venous sinus thrombosis, less likely in this location, aneurysmal bleed, head trauma (also unlikely). Had craniotomy 02/09 evening Suspect of aspiration, respiratory failure, hypertension, chronic obstructive pulmonary disease, improving acute kidney injury cont Zosyn glucose uncontrolled add Lantus 14 UNITS SQ HS 35 MIN CC TIME 02/15/2021 POD #6 Right occipital craniotomy with evacuation of intracerebral hematoma sedated on vent Patient seen and examined at bedside Good response to IV Lasix Continue antibiotics per infectious disease Weaning ventilator and sedation as tolerated Hopeful extubation in the next few days Plan of care discussed with bedside nurse Expected interval evolution of a right posterior temporal/occipital intraparenchymal hematoma status post decompressive craniotomy Large right temporo-occipital intraparenchymal bleed, most likely lobar hemorrhage from hypertension, consider venous sinus thrombosis, less likely in this location, aneurysmal bleed, head trauma (also unlikely). Had craniotomy 02/09 evening Suspect of aspiration, respiratory failure, hypertension, chronic obstructive pulmonary disease, improving acute kidney injury cont Zosyn glucose uncontrolled add Lantus 35 MIN CC TIME 02/14/2021 POD #5 Right occipital craniotomy with evacuation of intracerebral hematoma sedated on vent Patient seen and examined at bedside Good response to IV Lasix Continue antibiotics per infectious disease Weaning ventilator and sedation as tolerated Hopeful extubation in the next few days Plan of care discussed with bedside nurse Expected interval evolution of a right posterior temporal/occipital intraparenchymal hematoma status post decompressive craniotomy Large right temporo-occipital intraparenchymal bleed, most likely lobar hemorrhage from hypertension, consider venous sinus thrombosis, less likely in this location, aneurysmal bleed, head trauma (also unlikely). Had craniotomy 02/09 evening Suspect of aspiration, respiratory failure, hypertension, chronic obstructive pulmonary disease, improving acute kidney injury cont Zosyn glucose uncontrolled add Lantus 35 MIN CC TIME 02/13/2021 POD #4 Right occipital craniotomy with evacuation of intracerebral hematoma sedated on vent Patient seen and examined at bedside Good response to IV Lasix Continue antibiotics per infectious disease Weaning ventilator and sedation as tolerated Hopeful extubation in the next few days Plan of care discussed with bedside nurse Expected interval evolution of a right posterior temporal/occipital intraparenchymal hematoma status post decompressive craniotomy Large right temporo-occipital intraparenchymal bleed, most likely lobar hemorrhage from hypertension, consider venous sinus thrombosis, less likely in this location, aneurysmal bleed, head trauma (also unlikely). Had craniotomy 02/09 evening Suspect of aspiration, respiratory failure, hypertension, chronic obstructive pulmonary disease, improving acute kidney injury cont Zosyn 35 MIN CC TIME 02/12/2021 Patient seen and examined at bedside Remains intubated and sedated Good response to IV Lasix yesterday had nearly 3 L out; will diurese again today Continue antibiotics per infectious disease Weaning ventilator and sedation as tolerated Hopeful extubation in the next few days Plan of care discussed with bedside nurse 02/11/2021 Patient seen and examined at bedside No major clinical changes overnight however this morning patient has largely increased amount of secretions Chest x-ray concerning for possible pneumonia, will consult ID who recommended starting Zosyn Otherwise he remains intubated and sedated We will follow subspecialist input Plan discussed with bedside RN 02/10/2021 Patient seen and examined at bedside Underwent craniotomy yesterday due to unresponsiveness in the late afternoon; was also intubated Continues to have a poor neurologic status Neurology and neurosurgery following Discussed plan of care with bedside nurse Patient is a 61-year-old male transferred for to the ICU overnight due to hypertensive emergency and intracranial hemorrhage. Patient's mother at bedside provides most the history. She reports that patient had been in his usual state of health until yesterday morning when he reported feeling tired and having a headache. Patient mother reports he normally gets up early and goes outside however this was not the case yesterday. With this headache he took BC powder and went back to bed. Patient's mother reports that he was in and out of bed throughout most of the afternoon. Says patient did not eat anything yesterday which is very unusual for him. Approximately 1130 last night she had the patient get up to go to the bathroom and heard him fall. He however is able to get up and returned to bed; unknown if he hit his head at this time. Patient again woke up around 2 AM and woke up his mother asking for orange juice and then proceeded to fall again, she does not think he hit his head at this time. He was taken to hospital and found to have a systolic blood pressure greater than [address] scan found to have an intracranial hemorrhage. Due to severity of his condition he was transferred here. Patient's mother reports she is not aware of any past medical history other than hypertension which he intermittently takes hydrochlorothiazide for. Vitals Vitals Vital Signs Date Time Temp Pulse Resp B/P (MAP) Pulse Ox O2 Delivery O2 Flow Rate FiO2 02/16/21 10:30 62 184/82 (116) 02/16/21 10:00 28 97 Ventilator 02/16/21 08:00 98.4 98.4 Physical Exam Physical Exam GENERAL: Sedated, orally intubated gentleman, HEENT: Both pupils are round and reacting. No conjunctival lesion noticed. ETT/OGT + NECK: Rt IJ clean LUNGS: coarse bs HEART: S1, S2 ABDOMEN: Soft, nontender, no organomegaly. EXTREMITIES: +edema, no cyanosis. SKIN:no gen rash NEUROLOGIC: unable to assess art line, central line clean General: Other (sedated) Lungs: Clear, Crackles Abdomen: Soft Extremities: No cyanosis Skin: Other (dressing C,D,I) Labs LABS Laboratory Tests Test 02/15/21 12:02 02/15/21 17:21 02/16/21 00:16 02/16/21 05:00 Glucose (Fingerstick) 275 mg/dL (70-99) 318 mg/dL (70-99) 259 mg/dL (70-99) Sodium Level 149 mmol/L (136-145) Potassium Level 4.3 mmol/L (3.5-5.1) Chloride Level 114 mmol/L (98-107) Carbon Dioxide Level 23 mmol/L (21-32) Anion Gap 12 (6-14) Blood Urea Nitrogen 27 mg/dL (8-26) Creatinine 0.9 mg/dL (0.7-1.3) Estimated GFR (Cockcroft-Gault) 104.2 Glucose Level 257 mg/dL (70-99) Calcium Level 9.5 mg/dL (8.5-10.1) Test 02/16/21 05:37 02/16/21 08:10 Glucose (Fingerstick) 231 mg/dL (70-99) O2 Saturation 98 % (92-99) Arterial Blood pH 7.42 (7.35-7.45) Arterial Blood pCO2 at Patient Temp 34 mmHg (35-46) Arterial Blood pO2 at Patient Temp 120 mmHg (65-108) Arterial Blood HCO3 21 mmol/L (21-28) Arterial Blood Base Excess -3 mmol/L (-3-3) FiO2 50 Comment Review of Relevant I have reviewed the following items neela (where applicable) has been applied. Labs Laboratory Tests Test 02/14/21 11:22 02/14/21 16:53 02/14/21 23:56 02/15/21 05:37 Glucose (Fingerstick) 236 mg/dL (70-99) 234 mg/dL (70-99) 269 mg/dL (70-99) 260 mg/dL (70-99) Test 02/15/21 05:40 02/15/21 07:00 02/15/21 12:02 02/15/21 17:21 Sodium Level 147 mmol/L (136-145) Potassium Level 4.3 mmol/L (3.5-5.1) Chloride Level 112 mmol/L (98-107) Carbon Dioxide Level 22 mmol/L (21-32) Anion Gap 13 (6-14) Blood Urea Nitrogen 21 mg/dL (8-26) Creatinine 1.0 mg/dL (0.7-1.3) Estimated GFR (Cockcroft-Gault) 92.2 Glucose Level 284 mg/dL (70-99) Calcium Level 9.3 mg/dL (8.5-10.1) Phosphorus Level 3.8 mg/dL (2.6-4.7) Magnesium Level 2.1 mg/dL (1.8-2.4) O2 Saturation 94 % (92-99) Arterial Blood pH 7.41 (7.35-7.45) Arterial Blood pCO2 at Patient Temp 34 mmHg (35-46) Arterial Blood pO2 at Patient Temp 73 mmHg (65-108) Arterial Blood HCO3 21 mmol/L (21-28) Arterial Blood Base Excess -3 mmol/L (-3-3) FiO2 50/vent Glucose (Fingerstick) 275 mg/dL (70-99) 318 mg/dL (70-99) Test 02/16/21 00:16 02/16/21 05:00 02/16/21 05:37 02/16/21 08:10 Glucose (Fingerstick) 259 mg/dL (70-99) 231 mg/dL (70-99) Sodium Level 149 mmol/L (136-145) Potassium Level 4.3 mmol/L (3.5-5.1) Chloride Level 114 mmol/L (98-107) Carbon Dioxide Level 23 mmol/L (21-32) Anion Gap 12 (6-14) Blood Urea Nitrogen 27 mg/dL (8-26) Creatinine 0.9 mg/dL (0.7-1.3) Estimated GFR (Cockcroft-Gault) 104.2 Glucose Level 257 mg/dL (70-99) Calcium Level 9.5 mg/dL (8.5-10.1) O2 Saturation 98 % (92-99) Arterial Blood pH 7.42 (7.35-7.45) Arterial Blood pCO2 at Patient Temp 34 mmHg (35-46) Arterial Blood pO2 at Patient Temp 120 mmHg (65-108) Arterial Blood HCO3 21 mmol/L (21-28) Arterial Blood Base Excess -3 mmol/L (-3-3) FiO2 50 Laboratory Tests Test 02/15/21 12:02 02/15/21 17:21 02/16/21 00:16 02/16/21 05:00 Glucose (Fingerstick) 275 mg/dL (70-99) 318 mg/dL (70-99) 259 mg/dL (70-99) Sodium Level 149 mmol/L (136-145) Potassium Level 4.3 mmol/L (3.5-5.1) Chloride Level 114 mmol/L (98-107) Carbon Dioxide Level 23 mmol/L (21-32) Anion Gap 12 (6-14) Blood Urea Nitrogen 27 mg/dL (8-26) Creatinine 0.9 mg/dL (0.7-1.3) Estimated GFR (Cockcroft-Gault) 104.2 Glucose Level 257 mg/dL (70-99) Calcium Level 9.5 mg/dL (8.5-10.1) Test 02/16/21 05:37 02/16/21 08:10 Glucose (Fingerstick) 231 mg/dL (70-99) O2 Saturation 98 % (92-99) Arterial Blood pH 7.42 (7.35-7.45) Arterial Blood pCO2 at Patient Temp 34 mmHg (35-46) Arterial Blood pO2 at Patient Temp 120 mmHg (65-108) Arterial Blood HCO3 21 mmol/L (21-28) Arterial Blood Base Excess -3 mmol/L (-3-3) FiO2 50 Microbiology 02/11/21 Blood Culture - Preliminary, Resulted NO GROWTH AFTER 4 DAYS 02/11/21 Gram Stain Evaluation - Final, Complete 02/11/21 Respiratory Culture - Final, Complete Medications Current Medications Nicardipine HCl 50 mg/Sodium Chloride 250 ml @ 12.5 mls/hr CONT PRN IV SEE I/O RECORD Last administered on 02/16/21at 10:21; Start 02/09/21 at 06:15 Labetalol HCl (Normodyne Iv Push) 10 mg PRN Q2HR PRN IVP HYPERTENSION Last administered on 02/15/21at 10:49; Start 02/09/21 at 06:15 Lorazepam (Ativan Inj) 2 mg 1X ONCE IVP Last administered on 02/09/21at 10:54; Start 02/09/21 at 10:45; Stop 02/09/21 at 10:46; Status DC Lorazepam (Ativan Inj) 2 mg 1X ONCE IVP Last administered on 02/09/21at 11:00; Start 02/09/21 at 11:00; Stop 02/09/21 at 11:01; Status DC Fentanyl Citrate (Fentanyl 2ml Vial) 25 mcg PRN Q2HR PRN IVP MODERATE TO SEVERE PAIN Last administered on 02/09/21at 13:37; Start 02/09/21 at 13:30 Info (Review Meds) 1 ea PRN 1X PRN MC SEE COMMENTS; Start 02/09/21 at 15:00 Acetaminophen (Tylenol Supp) 650 mg PRN Q6HRS PRN DE FEVER > 100.5'F or 38'C; Start 02/09/21 at 15:00; Stop 02/11/21 at 21:12; Status DC Albuterol Sulfate (Ventolin Neb Soln) 2.5 mg PRN Q4HRS PRN NEB SHORTNESS OF BREATH; Start 02/09/21 at 15:15 Iohexol (Omnipaque 350 Mg/ml) 75 ml 1X ONCE IV Last administered on 02/09/21at 15:52; Start 02/09/21 at 15:30; Stop 02/09/21 at 15:35; Status DC Iohexol (Omnipaque 350 Mg/ml) 100 ml STK-MED ONCE .ROUTE ; Start 02/09/21 at 15:26; Stop 02/09/21 at 15:27; Status DC Info (CONTRAST GIVEN -- Rx MONITORING) 1 each PRN DAILY PRN MC SEE COMMENTS; Start 02/09/21 at 15:45; Stop 02/11/21 at 15:44; Status DC Propofol 100 ml @ As Directed STK-MED ONCE IV ; Start 02/09/21 at 15:51; Stop 02/09/21 at 15:51; Status DC Rocuronium Cocoa (Zemuron) 50 mg STK-MED ONCE .ROUTE ; Start 02/09/21 at 15:51; Stop 02/09/21 at 15:51; Status DC Lidocaine HCl (Lidocaine HCl 2% Abboject) 100 mg STK-MED ONCE .ROUTE ; Start 02/09/21 at 15:52; Stop 02/09/21 at 15:53; Status DC Propofol 100 ml @ 3.507 mls/ hr CONT PRN IV PER PROTOCOL Last administered on 02/15/21at 08:32; Start 02/09/21 at 16:15 Lidocaine HCl (Lidocaine HCl 2% Abboject) 100 mg 1X ONCE IV Last administered on 02/09/21at 16:17; Start 02/09/21 at 16:15; Stop 02/09/21 at 16:17; Status DC Rocuronium Cocoa (Zemuron) 50 mg 1X ONCE IV Last administered on 02/09/21 16:17; Start 02/09/21 at 16:15; Stop 02/09/21 at 16:17; Status DC Rocuronium Cocoa (Zemuron) 100 mg STK-MED ONCE .ROUTE ; Start 02/09/21 at 16:31; Stop 02/09/21 at 16:32; Status DC Gelatin (Gelfoam Size 100) 1 each STK-MED ONCE .ROUTE Last administered on 02/09/21 17:49; Start 02/09/21 at 16:33; Stop 02/09/21 at 16:33; Status DC Bupivacaine HCl/ Epinephrine Bitart (Sensorcain-Epi 0.5%-1:[id number] Mpf) 30 ml STK-MED ONCE .ROUTE Last administered on 02/09/21 17:49; Start 02/09/21 at 16:33; Stop 02/09/21 at 16:33; Status DC Cellulose (Surgicel Hemostat 4x8) 1 each STK-MED ONCE .ROUTE Last administered on 02/09/21at 18:38; Start 02/09/21 at 16:33; Stop 02/09/21 at 16:33; Status DC Thrombin 20,000 unit STK-MED ONCE TP Last administered on 02/09/21 17:49; Start 02/09/21 at 16:33; Stop 02/09/21 at 16:33; Status DC Fentanyl Citrate (Fentanyl 2ml Vial) 75 mcg 1X ONCE IVP Last administered on 02/09/21 16:45; Start 02/09/21 at 16:45; Stop 02/09/21 at 16:47; Status DC Propofol (Diprivan) 200 mg 1X ONCE IV ; Start 02/09/21 at 17:15; Stop 02/09/21 at 17:16; Status DC Lidocaine HCl (Lidocaine HCl 2% Abboject) 100 mg 1X ONCE IV ; Start 02/09/21 at 17:15; Stop 02/09/21 at 17:16; Status DC Rocuronium Cocoa (Zemuron) 50 mg 1X ONCE IV ; Start 02/09/21 at 17:15; Stop 02/09/21 at 17:16; Status DC Propofol 100 ml @ 0 mls/hr CONT PRN PRN IV SEDATION; Start 02/09/21 at 17:15; Stop 02/10/21 at 05:14; Status DC Cefazolin Sodium (Ancef) 1 gm STK-MED ONCE IVP ; Start 02/09/21 at 17:28; Stop 02/09/21 at 17:28; Status DC Fentanyl Citrate (Fentanyl 2ml Vial) 100 mcg STK-MED ONCE .ROUTE ; Start 02/09/21 at 17:43; Stop 02/09/21 at 17:43; Status DC Rocuronium Cocoa (Zemuron) 100 mg STK-MED ONCE .ROUTE ; Start 02/09/21 at 17:58; Stop 02/09/21 at 17:59; Status DC Vecuronium Cocoa (Norcuron Bolus) 10 mg STK-MED ONCE IV ; Start 02/09/21 at 18:49; Stop 02/09/21 at 18:50; Status DC Sodium Chloride (SODIUM CHLORIDE 20ml) 20 ml STK-MED ONCE IJ ; Start 02/09/21 at 18:50; Stop 02/09/21 at 18:50; Status DC Sevoflurane (Ultane) 90 ml STK-MED ONCE IH ; Start 02/09/21 at 19:20; Stop 02/09 at 19:21; Status DC Fentanyl Citrate 30 ml @ 2.5 mls/hr CONT PRN IV SEE PROTOCOL Last administered on 02/09/21at 23:40; Start 02/09/21 at 23:15; Stop 02/10/21 at 04:43; Status DC Fentanyl Citrate 55 ml @ 0 mls/hr CONT PRN IV SEE I/O Last administered on 02/14/21at 10:16; Start 02/10/21 at 05:00 Potassium Chloride/Dextrose/ Sod Cl 1,000 ml @ 80 mls/hr [id number] IV ; Start 02/10/21 at 09:00; Stop 02/10/21 at 13:21; Status DC Pantoprazole Sodium (PROTONIX VIAL for IV PUSH) 40 mg DAILYAC IVP Last administered on 02/16/21at 08:17; Start 02/10/21 at 09:00 Lidocaine HCl (Buffered Lidocaine 1%) 3 ml STK-MED ONCE .ROUTE ; Start 02/10/21 at 13:18; Stop 02/10/21 at 13:18; Status DC Sodium Chloride 1,000 ml @ 80 mls/hr [id number] IV Last administered on 02/12/21at 03:00; Start 02/10/21 at 13:30; Stop 02/12/21 at 15:36; Status DC Lidocaine HCl (Buffered Lidocaine 1%) 6 ml 1X ONCE INJ Last administered on 02/10/21at 13:57; Start 02/10/21 at 13:45; Stop 02/10/21 at 13:46; Status DC Potassium Chloride/Water 100 ml @ 100 mls/hr Q1H IV Last administered on 02/11/21at 10:07; Start 02/11/21 at 08:00; Stop 02/11/21 at 09:59; Status DC Piperacillin Sod/ Tazobactam Sod 3.375 gm/Sodium Chloride 50 ml @ 100 mls/hr Q6HRS IV Last administered on 02/16/21at 05:50; Start 02/11/21 at 09:00 Info (Tpn Per Pharmacy) 1 each PRN DAILY PRN MC SEE COMMENTS Last administered on 02/16/21at 09:56; Start 02/11/21 at 11:15 Sodium Chloride 90 meq/Potassium Chloride 50 meq/ Potassium Phosphate 13.6 mmol/Magnesium Sulfate 10 meq/ Calcium Gluconate 10 meq/ Multivitamins 5 ml/Zinc/Copper/ Manganese/ Selenium 1 ml/ Total Parenteral Nutrition/Amino Acids/Dextrose 1,512 ml @ 63 mls/hr TPN CONT IV Last administered on 02/11/21at 22:32; Start 02/11/21 at 22:00; Stop 02/12/21 at 21:59; Status DC Furosemide (Lasix) 20 mg 1X ONCE IVP Last administered on 02/11/21at 15:11; Start 02/11/21 at 15:30; Stop 02/11/21 at 15:31; Status DC Furosemide (Lasix) 20 mg 1X ONCE IVP Last administered on 02/11/21at 17:00; Start 02/11/21 at 17:00; Stop 02/11/21 at 17:01; Status DC Midazolam HCl 100 ml @ 1 mls/hr CONT PRN IV SEE PROTOCOL Last administered on 02/13/21at 20:58; Start 02/11/21 at 19:30 Acetaminophen (Tylenol Supp) 650 mg PRN Q6HRS PRN DE MILD PAIN / TEMP > 100.3'F; Start 02/11/21 at 21:15 Sodium Chloride 80 meq/Potassium Chloride 50 meq/ Potassium Phosphate 13.6 mmol/Magnesium Sulfate 6 meq/ Calcium Gluconate 10 meq/ Multivitamins 5 ml/Zinc/Copper/ Manganese/ Selenium 1 ml/ Total Parenteral Nutrition/Amino Acids/Dextrose 1,512 ml @ 63 mls/hr TPN CONT IV Last administered on 02/12/21at 22:09; Start 02/12/21 at 22:00; Stop 02/13/21 at 21:59; Status DC Furosemide (Lasix) 40 mg 1X ONCE IVP Last administered on 02/12/21at 12:44; Start 02/12/21 at 12:30; Stop 02/12/21 at 12:31; Status DC Insulin Human Lispro (HumaLOG) 0-5 UNITS Q6HRS SQ Last administered on 02/16/21at 05:53; Start 02/12/21 at 12:00 Dextrose (Dextrose 50%-Water Syringe) 12.5 gm PRN Q15MIN PRN IV SEE COMMENTS; Start 02/12/21 at 12:15 Clonidine HCl (Catapres Tts-3) 1 patch WEEKLY TD Last administered on 02/13/21at 11:47; Start 02/13/21 at 11:00 Sodium Chloride 80 meq/Potassium Chloride 50 meq/ Potassium Phosphate 13.6 mmol/Magnesium Sulfate 6 meq/ Calcium Gluconate 10 meq/ Multivitamins 5 ml/Zinc/Copper/ Manganese/ Selenium 1 ml/ Total Parenteral Nutrition/Amino Acids/Dextrose 1,512 ml @ 63 mls/hr TPN CONT IV Last administered on 02/13/21at 21:42; Start 02/13/21 at 22:00; Stop 02/14/21 at 21:59; Status DC Potassium Acetate 50 meq/Potassium Phosphate 13.6 mmol/Magnesium Sulfate 6 meq/ Calcium Gluconate 10 meq/ Multivitamins 5 ml/Zinc/Copper/ Manganese/ Selenium 1 ml/ Total Parenteral Nutrition/Amino Acids/Dextrose 1,512 ml @ 63 mls/hr TPN CONT IV Last administered on 02/14/21at 21:59; Start 02/14/21 at 22:00; Stop 02/15/21 at 21:59; Status DC Insulin Glargine (Lantus Syringe) 10 unit QHS SQ Last administered on 02/15/21at 22:11; Start 02/14/21 at 21:00 Hydralazine HCl (Apresoline Inj) 10 mg PRN Q4HRS PRN IVP ELEVATED BP, SEE COMMENTS Last administered on 02/16/21at 08:18; Start 02/14/21 at 16:00 Potassium Acetate 50 meq/Potassium Phosphate 13.6 mmol/Magnesium Sulfate 6 meq/ Calcium Gluconate 10 meq/ Multivitamins 5 ml/Zinc/Copper/ Manganese/ Selenium 1 ml/ Total Parenteral Nutrition/Amino Acids/Dextrose 1,512 ml @ 63 mls/hr TPN CONT IV Last administered on 02/15/21at 22:13; Start 02/15/21 at 22:00; Stop 02/16/21 at 21:59 Dexmedetomidine HCl 400 mcg/ Sodium Chloride 100 ml @ 0 mls/hr CONT PRN IV PER PROTOCOL Last administered on 02/16/21at 07:19; Start 02/15/21 at 14:15 Sodium Chloride 500 ml @ 500 mls/hr 1X PRN PRN IV SEE COMMENTS; Start 02/15/21 at 14:15 Atropine Sulfate (ATROPINE 0.5mg SYRINGE) 0.5 mg PRN Q5MIN PRN IV SEE COMMENTS; Start 02/15/21 at 14:15 Potassium Acetate 50 meq/Potassium Phosphate 13.6 mmol/Magnesium Sulfate 6 meq/ Calcium Gluconate 10 meq/ Multivitamins 5 ml/Zinc/Copper/ Manganese/ Selenium 1 ml/ Total Parenteral Nutrition/Amino Acids/Dextrose 1,512 ml @ 63 mls/hr TPN CONT IV ; Start 02/16/21 at 22:00; Stop 02/17/21 at 21:59 Vitals/I & O Vital Sign - Last 24 Hours 02/15/21 02/15/21 02/15/21 02/15/21 10:53 11:00 12:00 12:00 Temp 98.4 98.4 Pulse 69 68 Resp 29 24 B/P (MAP) 164/70 (101) 167/69 (101) Pulse Ox 97 97 97 O2 Delivery Ventilator Ventilator Ventilator Mechanical Ventilator 02/15/21 02/15/21 02/15/21 02/15/21 12:00 12:05 13:00 14:00 Pulse 74 69 Resp 24 B/P (MAP) 173/75 155/67 (96) Pulse Ox 98 96 O2 Delivery Ventilator Ventilator 02/15/21 02/15/21 02/15/21 02/15/21 14:00 15:00 15:45 15:59 Pulse 72 76 Resp 26 31 B/P (MAP) 173/82 (112) 164/68 (100) Pulse Ox 97 96 97 O2 Delivery Ventilator Ventilator Ventilator 02/15/21 02/15/21 02/15/21 02/15/21 15:59 16:00 16:15 16:30 Pulse 65 62 62 Resp 28 B/P (MAP) 134/71 (92) 114/58 (76) 116/60 (78) Pulse Ox 98 O2 Delivery Mechanical Ventilator Ventilator 02/15/21 02/15/21 02/15/21 02/15/21 16:45 17:00 17:55 18:00 Temp 99.0 99.0 Pulse 62 63 58 Resp 27 24 B/P (MAP) 118/60 (79) 120/61 (80) 121/63 (82) Pulse Ox 99 98 98 O2 Delivery Ventilator Ventilator Ventilator 02/15/21 02/15/21 02/15/21 02/15/21 19:00 20:00 20:00 20:00 Pulse 55 Resp 23 B/P (MAP) 133/69 (90) Pulse Ox 100 100 O2 Delivery Ventilator Ventilator Mechanical Ventilator 02/15/21 02/15/21 02/15/21 02/15/21 20:00 21:00 22:00 22:15 Temp 97.9 97.9 Pulse 56 52 51 Resp 23 23 20 B/P (MAP) 166/76 (106) 132/70 (90) 123/87 (99) Pulse Ox 100 100 100 100 O2 Delivery Ventilator Ventilator Ventilator Ventilator 02/15/21 02/15/21 02/16/21 02/16/21 23:00 23:59 00:00 00:01 Temp 97.7 97.7 Pulse 49 53 Resp 17 24 B/P (MAP) 138/72 (94) 174/79 (110) Pulse Ox 100 100 O2 Delivery Ventilator Mechanical Ventilator Ventilator 02/16/21 02/16/21 02/16/21 02/16/21 01:00 01:00 02:00 03:00 Pulse 55 53 Resp 22 20 B/P (MAP) 164/80 (108) 145/89 (107) Pulse Ox 99 99 99 98 O2 Delivery Ventilator Ventilator Ventilator Ventilator 02/16/21 02/16/21 02/16/21 02/16/21 03:00 03:26 04:00 04:00 Temp 98.0 98.0 Pulse 53 53 53 Resp 20 20 B/P (MAP) 172/82 (112) 171/96 160/86 (110) Pulse Ox 99 99 O2 Delivery Ventilator Mechanical Ventilator Ventilator 02/16/21 02/16/21 02/16/21 02/16/21 04:00 05:00 05:00 06:00 Pulse 56 73 Resp 24 34 B/P (MAP) 166/86 (112) 175/90 (118) Pulse Ox 100 98 98 O2 Delivery Ventilator Ventilator Ventilator 02/16/21 02/16/21 02/16/21 02/16/21 07:00 07:59 08:00 08:00 Temp 98.4 98.4 Pulse 66 58 Resp 28 22 B/P (MAP) 177/93 (121) 176/109 (131) Pulse Ox 99 99 99 O2 Delivery Ventilator Ventilator Ventilator 02/16/21 02/16/21 02/16/21 02/16/21 08:00 08:18 09:00 09:19 Pulse 61 60 Resp 24 B/P (MAP) 211/93 177/103 (127) Pulse Ox 98 98 O2 Delivery Mechanical Ventilator Ventilator Ventilator 02/16/21 02/16/21 02/16/21 10:00 10:15 10:30 Pulse 60 60 62 Resp 28 B/P (MAP) 199/107 (137) 188/98 (128) 184/82 (116) Pulse Ox 97 O2 Delivery Ventilator Intake and Output 02/15/21 02/15/21 02/16/21 15:00 23:00 07:00 Intake Total 70 ml 2029.17 ml 1099.2 ml Output Total 660 ml 1060 ml 960 ml Balance -590 ml 969.17 ml 139.2 ml Justicifation of Admission Dx: Justifications for Admission: Justification of Admission Dx: Yes Acute Hemorrhagic Stroke: Acute Hemorrhagic Stroke LESLI ALCOCER MD Feb 16, 2021 10:50
[2021-02-16] MEDS: fentaNYL HIGH DOSE PCA 55 ML IV PRN (11:11)
--- NOTE | 2021-02-16 11:24 | PDOC ---
Renal-Progress Notes Subjective Notes Notes NOTHING NEW History of Present Illness Hx of present illness NO ACUTE CHANGES Vitals Vitals Vital Signs Date Time Temp Pulse Resp B/P (MAP) Pulse Ox O2 Delivery O2 Flow Rate FiO2 02/16/21 11:11 21 97 Ventilator 02/16/21 10:45 57 167/80 (109) 02/16/21 08:00 98.4 98.4 Weight Weight [ ] I.O. Intake and Output Intake and Output 02/16/21 07:00 Intake Total 3198.37 ml Output Total 2680 ml Balance 518.37 ml Intake IV Total 3198.37 ml Output Urine Total 2680 ml Labs Labs Laboratory Tests Test 02/15/21 12:02 02/15/21 17:21 02/16/21 00:16 02/16/21 05:00 Glucose (Fingerstick) 275 mg/dL (70-99) 318 mg/dL (70-99) 259 mg/dL (70-99) Sodium Level 149 mmol/L (136-145) Potassium Level 4.3 mmol/L (3.5-5.1) Chloride Level 114 mmol/L (98-107) Carbon Dioxide Level 23 mmol/L (21-32) Anion Gap 12 (6-14) Blood Urea Nitrogen 27 mg/dL (8-26) Creatinine 0.9 mg/dL (0.7-1.3) Estimated GFR (Cockcroft-Gault) 104.2 Glucose Level 257 mg/dL (70-99) Calcium Level 9.5 mg/dL (8.5-10.1) Test 02/16/21 05:37 02/16/21 08:10 Glucose (Fingerstick) 231 mg/dL (70-99) O2 Saturation 98 % (92-99) Arterial Blood pH 7.42 (7.35-7.45) Arterial Blood pCO2 at Patient Temp 34 mmHg (35-46) Arterial Blood pO2 at Patient Temp 120 mmHg (65-108) Arterial Blood HCO3 21 mmol/L (21-28) Arterial Blood Base Excess -3 mmol/L (-3-3) FiO2 50 Micro Micro Microbiology 02/11/21 Blood Culture - Preliminary, Resulted NO GROWTH AFTER 4 DAYS 02/11/21 Gram Stain Evaluation - Final, Complete 02/11/21 Respiratory Culture - Final, Complete Review of Systems Constitutional: yes: unresponsive Physical Exam General Appearance: no apparent distress Skin: warm Heart: S1S2 Abdomen: soft, distension, other (NO BS) Extremities: pulses present Neurology: other (SEDATED) Assessment Assessment IMP MARVIN - RESOLVED HYPOKALEMIA-CORRECTED HYPERNATREMIA ACUTE RESP FAILURE PROB ASP PNA ICB-S/P CRANIOTOMY AND HEMATOMA EVACATION ACUTE RESP FAILURE HX OF COPD ILEUS LABILE HTN PLAN CONTROL BP GOAL SBP LESS THAN 140 CARDENE GTT NEEDED PRN HYDRALAZINE CONT CATAPRESS PATCH CONT TPN-CHANGES REPLACE ELECTROLYTES NEEDED ANTIBIOTICS VENT SUPPORT NOT MUCH OVERALL IMPROVEMENT WILL FOLLOW ESTEBAN PERKINS MD Feb 16, 2021 11:24
--- NOTE | 2021-02-16 13:36 | PDOC ---
PULMONARY PROGRESS NOTES DATE: 02/16/21 TIME: 13:34 Subjective Patient back on sedation, does not do well off sedation. Very asynchronous with the vent Vitals Vital Signs Date Time Temp Pulse Resp B/P (MAP) Pulse Ox O2 Delivery O2 Flow Rate FiO2 02/16/21 13:00 63 26 154/67 (96) 95 Ventilator 02/16/21 12:00 98.8 98.8 Comments ros unable to obtain sedated on vent Lungs: Clear, Crackles Cardiovascular: S1, S2 Abdomen: Soft, Non-tender Extremities: No Edema Skin: Warm Labs Laboratory Tests Test 02/14/21 16:53 02/14/21 23:56 02/15/21 05:37 02/15/21 05:40 Glucose (Fingerstick) 234 mg/dL (70-99) 269 mg/dL (70-99) 260 mg/dL (70-99) Sodium Level 147 mmol/L (136-145) Potassium Level 4.3 mmol/L (3.5-5.1) Chloride Level 112 mmol/L (98-107) Carbon Dioxide Level 22 mmol/L (21-32) Anion Gap 13 (6-14) Blood Urea Nitrogen 21 mg/dL (8-26) Creatinine 1.0 mg/dL (0.7-1.3) Estimated GFR (Cockcroft-Gault) 92.2 Glucose Level 284 mg/dL (70-99) Calcium Level 9.3 mg/dL (8.5-10.1) Phosphorus Level 3.8 mg/dL (2.6-4.7) Magnesium Level 2.1 mg/dL (1.8-2.4) Test 02/15/21 07:00 02/15/21 12:02 02/15/21 17:21 02/16/21 00:16 O2 Saturation 94 % (92-99) Arterial Blood pH 7.41 (7.35-7.45) Arterial Blood pCO2 at Patient Temp 34 mmHg (35-46) Arterial Blood pO2 at Patient Temp 73 mmHg (65-108) Arterial Blood HCO3 21 mmol/L (21-28) Arterial Blood Base Excess -3 mmol/L (-3-3) FiO2 50/vent Glucose (Fingerstick) 275 mg/dL (70-99) 318 mg/dL (70-99) 259 mg/dL (70-99) Test 02/16/21 05:00 02/16/21 05:37 02/16/21 08:10 02/16/21 12:10 Sodium Level 149 mmol/L (136-145) Potassium Level 4.3 mmol/L (3.5-5.1) Chloride Level 114 mmol/L (98-107) Carbon Dioxide Level 23 mmol/L (21-32) Anion Gap 12 (6-14) Blood Urea Nitrogen 27 mg/dL (8-26) Creatinine 0.9 mg/dL (0.7-1.3) Estimated GFR (Cockcroft-Gault) 104.2 Glucose Level 257 mg/dL (70-99) Calcium Level 9.5 mg/dL (8.5-10.1) Magnesium Level 2.3 mg/dL (1.8-2.4) Glucose (Fingerstick) 231 mg/dL (70-99) 273 mg/dL (70-99) O2 Saturation 98 % (92-99) Arterial Blood pH 7.42 (7.35-7.45) Arterial Blood pCO2 at Patient Temp 34 mmHg (35-46) Arterial Blood pO2 at Patient Temp 120 mmHg (65-108) Arterial Blood HCO3 21 mmol/L (21-28) Arterial Blood Base Excess -3 mmol/L (-3-3) FiO2 50 Laboratory Tests Test 02/15/21 17:21 02/16/21 00:16 02/16/21 05:00 02/16/21 05:37 Glucose (Fingerstick) 318 mg/dL (70-99) 259 mg/dL (70-99) 231 mg/dL (70-99) Sodium Level 149 mmol/L (136-145) Potassium Level 4.3 mmol/L (3.5-5.1) Chloride Level 114 mmol/L (98-107) Carbon Dioxide Level 23 mmol/L (21-32) Anion Gap 12 (6-14) Blood Urea Nitrogen 27 mg/dL (8-26) Creatinine 0.9 mg/dL (0.7-1.3) Estimated GFR (Cockcroft-Gault) 104.2 Glucose Level 257 mg/dL (70-99) Calcium Level 9.5 mg/dL (8.5-10.1) Magnesium Level 2.3 mg/dL (1.8-2.4) Test 02/16/21 08:10 02/16/21 12:10 O2 Saturation 98 % (92-99) Arterial Blood pH 7.42 (7.35-7.45) Arterial Blood pCO2 at Patient Temp 34 mmHg (35-46) Arterial Blood pO2 at Patient Temp 120 mmHg (65-108) Arterial Blood HCO3 21 mmol/L (21-28) Arterial Blood Base Excess -3 mmol/L (-3-3) FiO2 50 Glucose (Fingerstick) 273 mg/dL (70-99) Comments IMPRESSION: Chest x-ray 02/13 1. Stable support lines and tubes. 2. Severe right upper lobe predominant bullous emphysema. 3. Stable right perihilar linear atelectasis or infiltrate superimposed on diffuse interstitial prominence and small pleural effusions. Impression . IMPRESSION: 1. Acute hypoxic respiratory failure multifactorial 2. Abnormal x-ray 3. Long history of tobaccoism. CT angiogram showed bullous emphysema in the upper lobes. 3. Acute kidney injury. 4. Leukocytosi 5. s/p Right occipital craniotomy with evacuation of intracerebral hematoma. 6. Encephalopathy, multifactorial 7. Uncontrolled hypertension CT head 02/13, discussed with Dr. Louie IMPRESSION: 1. Expected interval evolution of a right posterior temporal/occipital intraparenchymal hematoma status post decompressive craniotomy. 2. Expected evolution of a small amount of subarachnoid and intraventricular clot. DATE OF SURGERY: 02/09/2021 PREOPERATIVE DIAGNOSIS: Right posterior temporoparietal occipital intracerebral hemorrhage with neurologic deterioration. POSTOPERATIVE DIAGNOSIS: Right posterior temporoparietal occipital intracerebral hemorrhage with neurologic deterioration. OPERATION PERFORMED: Right occipital craniotomy with evacuation of intracerebral hematoma. Plan . Updated 02/16 Patient does not do well off sedation, becomes asynchronous with vent We will discuss with surgery, I recommend tracheotomy We will continue antibiotics per ID Follow neurology and neurosurgery input DVT GI prophylax Updated 02/15, blood pressure better control Antibiotics per ID When sedation is off, patient not in sync with the ventilator Suspect he may require tracheotomy Follow neurology and neurosurgery input Discussed with MANJULA FATIMA MD Feb 16, 2021 13:36
[2021-02-16 14:06] LABS: BASO # 0.1 x10^3/uL (0.0-0.2); BASO % 1 % (0-3); EOS # 0.1 x10^3/uL (0.0-0.7); EOS % 2 % (0-3); HEMATOCRIT 37.4 % (39.0-53.0); HEMOGLOBIN 12.1 g/dL (13.0-17.5); LYMPH # 1.1 x10^3/uL (1.0-4.8); LYMPH % 12 % (24-48); MEAN CORPUSCULAR HEMOGLOBIN 30 pg (25-35); MEAN CORPUSCULAR HGB CONC 32 g/dL (31-37); MEAN CORPUSCULAR VOLUME 92 fL (79-100); MONO # 0.7 x10^3/uL (0.0-1.1); MONO % 8 % (0-9); NEUT # 6.8 x10^3/uL (1.8-7.7); NEUT % 77 % (31-73); PLATELET COUNT 245 x10^3/uL (140-400); RED BLOOD COUNT 4.06 x10^6/uL (4.30-5.70); RED CELL DISTRIBUTION WIDTH 14.2 % (11.5-14.5); WHITE BLOOD COUNT 8.7 x10^3/uL (4.0-11.0)
[2021-02-16] MEDS: PROPOFOL 100 ML IV PRN (15:00)
--- NOTE | 2021-02-16 16:29 | NUR ---
SS following up with discharge planning. SS reviewed pt chart and discussed with pt RN. Pt is currently on the vent at 40%. Pt on TPN. Pt on IV Zosyn. Pt on Propofol, Fentanyl, and Precedex. Self pay. Med Assist following. SS will continue to follow for discharge planning.
--- NOTE | 2021-02-16 16:33 | PDOC ---
PROGRESS NOTES Date of Service DATE: 02/16/21 TIME: 16:21 Subjective Subjective patient seen and examined at 1430 POD #7 Right occipital craniotomy with evacuation of intracerebral hematoma remains sedated with fentanyl and Precedex, on vent, on Cardene opens eyes to voice moves left side pupils equal and reactive Dressing C,D,I continue to wean sedation as tolerated D/W RN Objective Objective Vital Signs Date Time Temp Pulse Resp B/P (MAP) Pulse Ox O2 Delivery O2 Flow Rate FiO2 02/16/21 16:00 97.8 74 26 133/84 (100) 94 Ventilator 97.8 Intake and Output 02/16/21 07:00 Intake Total 3198.37 ml Output Total 2680 ml Balance 518.37 ml Intake IV Total 3198.37 ml Output Urine Total 2680 ml Comment Review of Relevant I have reviewed the following items neela (where applicable) has been applied. Labs Laboratory Tests Test 02/14/21 16:53 02/14/21 23:56 02/15/21 05:37 02/15/21 05:40 Glucose (Fingerstick) 234 mg/dL (70-99) 269 mg/dL (70-99) 260 mg/dL (70-99) Sodium Level 147 mmol/L (136-145) Potassium Level 4.3 mmol/L (3.5-5.1) Chloride Level 112 mmol/L (98-107) Carbon Dioxide Level 22 mmol/L (21-32) Anion Gap 13 (6-14) Blood Urea Nitrogen 21 mg/dL (8-26) Creatinine 1.0 mg/dL (0.7-1.3) Estimated GFR (Cockcroft-Gault) 92.2 Glucose Level 284 mg/dL (70-99) Calcium Level 9.3 mg/dL (8.5-10.1) Phosphorus Level 3.8 mg/dL (2.6-4.7) Magnesium Level 2.1 mg/dL (1.8-2.4) Test 02/15/21 07:00 02/15/21 12:02 02/15/21 17:21 02/16/21 00:16 O2 Saturation 94 % (92-99) Arterial Blood pH 7.41 (7.35-7.45) Arterial Blood pCO2 at Patient Temp 34 mmHg (35-46) Arterial Blood pO2 at Patient Temp 73 mmHg (65-108) Arterial Blood HCO3 21 mmol/L (21-28) Arterial Blood Base Excess -3 mmol/L (-3-3) FiO2 50/vent Glucose (Fingerstick) 275 mg/dL (70-99) 318 mg/dL (70-99) 259 mg/dL (70-99) Test 02/16/21 05:00 02/16/21 05:37 02/16/21 08:10 02/16/21 12:10 White Blood Count 8.7 x10^3/uL (4.0-11.0) Red Blood Count 4.06 x10^6/uL (4.30-5.70) Hemoglobin 12.1 g/dL (13.0-17.5) Hematocrit 37.4 % (39.0-53.0) Mean Corpuscular Volume 92 fL (79-100) Mean Corpuscular Hemoglobin 30 pg (25-35) Mean Corpuscular Hemoglobin Concent 32 g/dL (31-37) Red Cell Distribution Width 14.2 % (11.5-14.5) Platelet Count 245 x10^3/uL (140-400) Neutrophils (%) (Auto) 77 % (31-73) Lymphocytes (%) (Auto) 12 % (24-48) Monocytes (%) (Auto) 8 % (0-9) Eosinophils (%) (Auto) 2 % (0-3) Basophils (%) (Auto) 1 % (0-3) Neutrophils # (Auto) 6.8 x10^3/uL (1.8-7.7) Lymphocytes # (Auto) 1.1 x10^3/uL (1.0-4.8) Monocytes # (Auto) 0.7 x10^3/uL (0.0-1.1) Eosinophils # (Auto) 0.1 x10^3/uL (0.0-0.7) Basophils # (Auto) 0.1 x10^3/uL (0.0-0.2) Sodium Level 149 mmol/L (136-145) Potassium Level 4.3 mmol/L (3.5-5.1) Chloride Level 114 mmol/L (98-107) Carbon Dioxide Level 23 mmol/L (21-32) Anion Gap 12 (6-14) Blood Urea Nitrogen 27 mg/dL (8-26) Creatinine 0.9 mg/dL (0.7-1.3) Estimated GFR (Cockcroft-Gault) 104.2 Glucose Level 257 mg/dL (70-99) Calcium Level 9.5 mg/dL (8.5-10.1) Magnesium Level 2.3 mg/dL (1.8-2.4) Glucose (Fingerstick) 231 mg/dL (70-99) 273 mg/dL (70-99) O2 Saturation 98 % (92-99) Arterial Blood pH 7.42 (7.35-7.45) Arterial Blood pCO2 at Patient Temp 34 mmHg (35-46) Arterial Blood pO2 at Patient Temp 120 mmHg (65-108) Arterial Blood HCO3 21 mmol/L (21-28) Arterial Blood Base Excess -3 mmol/L (-3-3) FiO2 50 Laboratory Tests Test 02/15/21 17:21 02/16/21 00:16 02/16/21 05:00 02/16/21 05:37 Glucose (Fingerstick) 318 mg/dL (70-99) 259 mg/dL (70-99) 231 mg/dL (70-99) White Blood Count 8.7 x10^3/uL (4.0-11.0) Red Blood Count 4.06 x10^6/uL (4.30-5.70) Hemoglobin 12.1 g/dL (13.0-17.5) Hematocrit 37.4 % (39.0-53.0) Mean Corpuscular Volume 92 fL (79-100) Mean Corpuscular Hemoglobin 30 pg (25-35) Mean Corpuscular Hemoglobin Concent 32 g/dL (31-37) Red Cell Distribution Width 14.2 % (11.5-14.5) Platelet Count 245 x10^3/uL (140-400) Neutrophils (%) (Auto) 77 % (31-73) Lymphocytes (%) (Auto) 12 % (24-48) Monocytes (%) (Auto) 8 % (0-9) Eosinophils (%) (Auto) 2 % (0-3) Basophils (%) (Auto) 1 % (0-3) Neutrophils # (Auto) 6.8 x10^3/uL (1.8-7.7) Lymphocytes # (Auto) 1.1 x10^3/uL (1.0-4.8) Monocytes # (Auto) 0.7 x10^3/uL (0.0-1.1) Eosinophils # (Auto) 0.1 x10^3/uL (0.0-0.7) Basophils # (Auto) 0.1 x10^3/uL (0.0-0.2) Sodium Level 149 mmol/L (136-145) Potassium Level 4.3 mmol/L (3.5-5.1) Chloride Level 114 mmol/L (98-107) Carbon Dioxide Level 23 mmol/L (21-32) Anion Gap 12 (6-14) Blood Urea Nitrogen 27 mg/dL (8-26) Creatinine 0.9 mg/dL (0.7-1.3) Estimated GFR (Cockcroft-Gault) 104.2 Glucose Level 257 mg/dL (70-99) Calcium Level 9.5 mg/dL (8.5-10.1) Magnesium Level 2.3 mg/dL (1.8-2.4) Test 02/16/21 08:10 02/16/21 12:10 O2 Saturation 98 % (92-99) Arterial Blood pH 7.42 (7.35-7.45) Arterial Blood pCO2 at Patient Temp 34 mmHg (35-46) Arterial Blood pO2 at Patient Temp 120 mmHg (65-108) Arterial Blood HCO3 21 mmol/L (21-28) Arterial Blood Base Excess -3 mmol/L (-3-3) FiO2 50 Glucose (Fingerstick) 273 mg/dL (70-99) Microbiology 02/11/21 Blood Culture - Preliminary, Resulted NO GROWTH AFTER 4 DAYS 02/11/21 Gram Stain Evaluation - Final, Complete 02/11/21 Respiratory Culture - Final, Complete Medications Current Medications Nicardipine HCl 50 mg/Sodium Chloride 250 ml @ 12.5 mls/hr CONT PRN IV SEE I/O RECORD Last administered on 02/16/21at 14:00; Start 02/09/21 at 06:15 Labetalol HCl (Normodyne Iv Push) 10 mg PRN Q2HR PRN IVP HYPERTENSION Last administered on 02/15/21at 10:49; Start 02/09/21 at 06:15 Lorazepam (Ativan Inj) 2 mg 1X ONCE IVP Last administered on 02/09/21at 10:54; Start 02/09/21 at 10:45; Stop 02/09/21 at 10:46; Status DC Lorazepam (Ativan Inj) 2 mg 1X ONCE IVP Last administered on 02/09/21at 11:00; Start 02/09/21 at 11:00; Stop 02/09/21 at 11:01; Status DC Fentanyl Citrate (Fentanyl 2ml Vial) 25 mcg PRN Q2HR PRN IVP MODERATE TO SEVERE PAIN Last administered on 02/09/21at 13:37; Start 02/09/21 at 13:30 Info (Review Meds) 1 ea PRN 1X PRN MC SEE COMMENTS; Start 02/09/21 at 15:00 Acetaminophen (Tylenol Supp) 650 mg PRN Q6HRS PRN MI FEVER > 100.5'F or 38'C; Start 02/09/21 at 15:00; Stop 02/11/21 at 21:12; Status DC Albuterol Sulfate (Ventolin Neb Soln) 2.5 mg PRN Q4HRS PRN NEB SHORTNESS OF BREATH; Start 02/09/21 at 15:15 Iohexol (Omnipaque 350 Mg/ml) 75 ml 1X ONCE IV Last administered on 02/09/21at 15:52; Start 02/09/21 at 15:30; Stop 02/09/21 at 15:35; Status DC Iohexol (Omnipaque 350 Mg/ml) 100 ml STK-MED ONCE .ROUTE ; Start 02/09/21 at 15:26; Stop 02/09/21 at 15:27; Status DC Info (CONTRAST GIVEN -- Rx MONITORING) 1 each PRN DAILY PRN MC SEE COMMENTS; Start 02/09/21 at 15:45; Stop 02/11/21 at 15:44; Status DC Propofol 100 ml @ As Directed STK-MED ONCE IV ; Start 02/09/21 at 15:51; Stop 02/09/21 at 15:51; Status DC Rocuronium Shelby (Zemuron) 50 mg STK-MED ONCE .ROUTE ; Start 02/09/21 at 15:51; Stop 02/09/21 at 15:51; Status DC Lidocaine HCl (Lidocaine HCl 2% Abboject) 100 mg STK-MED ONCE .ROUTE ; Start 02/09/21 at 15:52; Stop 02/09/21 at 15:53; Status DC Propofol 100 ml @ 3.507 mls/ hr CONT PRN IV PER PROTOCOL Last administered on 02/16/21at 15:00; Start 02/09/21 at 16:15 Lidocaine HCl (Lidocaine HCl 2% Abboject) 100 mg 1X ONCE IV Last administered on 02/09/21at 16:17; Start 02/09/21 at 16:15; Stop 02/09/21 at 16:17; Status DC Rocuronium Shelby (Zemuron) 50 mg 1X ONCE IV Last administered on 02/09/21 16:17; Start 02/09/21 at 16:15; Stop 02/09/21 at 16:17; Status DC Rocuronium Shelby (Zemuron) 100 mg STK-MED ONCE .ROUTE ; Start 02/09/21 at 16:31; Stop 02/09/21 at 16:32; Status DC Gelatin (Gelfoam Size 100) 1 each STK-MED ONCE .ROUTE Last administered on 02/09/21at 17:49; Start 02/09/21 at 16:33; Stop 02/09/21 at 16:33; Status DC Bupivacaine HCl/ Epinephrine Bitart (Sensorcain-Epi 0.5%-1:[id number] Mpf) 30 ml STK-MED ONCE .ROUTE Last administered on 02/09/21 17:49; Start 02/09/21 at 16:33; Stop 02/09/21 at 16:33; Status DC Cellulose (Surgicel Hemostat 4x8) 1 each STK-MED ONCE .ROUTE Last administered on 02/09/21at 18:38; Start 02/09/21 at 16:33; Stop 02/09/21 at 16:33; Status DC Thrombin 20,000 unit STK-MED ONCE TP Last administered on 02/09/21 17:49; Star t 02/09/21 at 16:33; Stop 02/09/21 at 16:33; Status DC Fentanyl Citrate (Fentanyl 2ml Vial) 75 mcg 1X ONCE IVP Last administered on 02/09/21 16:45; Start 02/09/21 at 16:45; Stop 02/09/21 at 16:47; Status DC Propofol (Diprivan) 200 mg 1X ONCE IV ; Start 02/09/21 at 17:15; Stop 02/09/21 at 17:16; Status DC Lidocaine HCl (Lidocaine HCl 2% Abboject) 100 mg 1X ONCE IV ; Start 02/09/21 at 17:15; Stop 02/09/21 at 17:16; Status DC Rocuronium Shelby (Zemuron) 50 mg 1X ONCE IV ; Start 02/09/21 at 17:15; Stop 02/09/21 at 17:16; Status DC Propofol 100 ml @ 0 mls/hr CONT PRN PRN IV SEDATION; Start 02/09/21 at 17:15; Stop 02/10/21 at 05:14; Status DC Cefazolin Sodium (Ancef) 1 gm STK-MED ONCE IVP ; Start 02/09/21 at 17:28; Stop 02/09/21 at 17:28; Status DC Fentanyl Citrate (Fentanyl 2ml Vial) 100 mcg STK-MED ONCE .ROUTE ; Start 02/09/21 at 17:43; Stop 02/09/21 at 17:43; Status DC Rocuronium Shelby (Zemuron) 100 mg STK-MED ONCE .ROUTE ; Start 02/09/21 at 17:58; Stop 02/09/21 at 17:59; Status DC Vecuronium Shelby (Norcuron Bolus) 10 mg STK-MED ONCE IV ; Start 02/09/21 at 18:49; Stop 02/09/21 at 18:50; Status DC Sodium Chloride (SODIUM CHLORIDE 20ml) 20 ml STK-MED ONCE IJ ; Start 02/09/21 at 18:50; Stop 02/09/21 at 18:50; Status DC Sevoflurane (Ultane) 90 ml STK-MED ONCE IH ; Start 02/09/21 at 19:20; Stop 02/09/21 at 19:21; Status DC Fentanyl Citrate 30 ml @ 2.5 mls/hr CONT PRN IV SEE PROTOCOL Last administered on 02/09/21at 23:40; Start 02/09/21 at 23:15; Stop 02/10/21 at 04:43; Status DC Fentanyl Citrate 55 ml @ 0 mls/hr CONT PRN IV SEE I/O Last administered on 02/16/21at 11:11; Start 02/10/21 at 05:00 Potassium Chloride/Dextrose/ Sod Cl 1,000 ml @ 80 mls/hr [id number] IV ; Start 02/10/21 at 09:00; Stop 02/10/21 at 13:21; Status DC Pantoprazole Sodium (PROTONIX VIAL for IV PUSH) 40 mg DAILYAC IVP Last administered on 02/16/21at 08:17; Start 02/10/21 at 09:00 Lidocaine HCl (Buffered Lidocaine 1%) 3 ml STK-MED ONCE .ROUTE ; Start 02/10/21 at 13:18; Stop 02/10/21 at 13:18; Status DC Sodium Chloride 1,000 ml @ 80 mls/hr [id number] IV Last administered on 02/12/21at 03:00; Start 02/10/21 at 13:30; Stop 02/12/21 at 15:36; Status DC Lidocaine HCl (Buffered Lidocaine 1%) 6 ml 1X ONCE INJ Last administered on 02/10/21at 13:57; Start 02/10/21 at 13:45; Stop 02/10/21 at 13:46; Status DC Potassium Chloride/Water 100 ml @ 100 mls/hr Q1H IV Last administered on 02/11/21at 10:07; Start 02/11/21 at 08:00; Stop 02/11/21 at 09:59; Status DC Piperacillin Sod/ Tazobactam Sod 3.375 gm/Sodium Chloride 50 ml @ 100 mls/hr Q6HRS IV Last administered on 02/16/21at 12:05; Start 02/11/21 at 09:00 Info (Tpn Per Pharmacy) 1 each PRN DAILY PRN MC SEE COMMENTS Last administered on 02/16/21at 09:56; Start 02/11/21 at 11:15 Sodium Chloride 90 meq/Potassium Chloride 50 meq/ Potassium Phosphate 13.6 mmol/Magnesium Sulfate 10 meq/ Calcium Gluconate 10 meq/ Multivitamins 5 ml/Zinc/Copper/ Manganese/ Selenium 1 ml/ Total Parenteral Nutrition/Amino Acids/Dextrose 1,512 ml @ 63 mls/hr TPN CONT IV Last administered on 02/11/21at 22:32; Start 02/11/21 at 22:00; Stop 02/12/21 at 21:59; Status DC Furosemide (Lasix) 20 mg 1X ONCE IVP Last administered on 02/11/21at 15:11; Start 02/11/21 at 15:30; Stop 02/11/21 at 15:31; Status DC Furosemide (Lasix) 20 mg 1X ONCE IVP Last administered on 02/11/21at 17:00; Start 02/11/21 at 17:00; Stop 02/11/21 at 17:01; Status DC Midazolam HCl 100 ml @ 1 mls/hr CONT PRN IV SEE PROTOCOL Last administered on 02/13/21at 20:58; Start 02/11/21 at 19:30 Acetaminophen (Tylenol Supp) 650 mg PRN Q6HRS PRN MI MILD PAIN / TEMP > 100.3'F; Start 02/11/21 at 21:15 Sodium Chloride 80 meq/Potassium Chloride 50 meq/ Potassium Phosphate 13.6 mmol/Magnesium Sulfate 6 meq/ Calcium Gluconate 10 meq/ Multivitamins 5 ml/Zinc/Copper/ Manganese/ Selenium 1 ml/ Total Parenteral Nutrition/Amino Acids/Dextrose 1,512 ml @ 63 mls/hr TPN CONT IV Last administered on 02/12/21at 22:09; Start 02/12/21 at 22:00; Stop 02/13/21 at 21:59; Status DC Furosemide (Lasix) 40 mg 1X ONCE IVP Last administered on 02/12/21at 12:44; Start 02/12/21 at 12:30; Stop 02/12/21 at 12:31; Status DC Insulin Human Lispro (HumaLOG) 0-5 UNITS Q6HRS SQ Last administered on 02/16/21at 12:11; Start 02/12/21 at 12:00 Dextrose (Dextrose 50%-Water Syringe) 12.5 gm PRN Q15MIN PRN IV SEE COMMENTS; Start 02/12/21 at 12:15 Clonidine HCl (Catapres Tts-3) 1 patch WEEKLY TD Last administered on 02/13/21at 11:47; Start 02/13/21 at 11:00 Sodium Chloride 80 meq/Potassium Chloride 50 meq/ Potassium Phosphate 13.6 mmol/Magnesium Sulfate 6 meq/ Calcium Gluconate 10 meq/ Multivitamins 5 ml/Zinc/Copper/ Manganese/ Selenium 1 ml/ Total Parenteral Nutrition/Amino Acids/Dextrose 1,512 ml @ 63 mls/hr TPN CONT IV Last administered on 02/13/21at 21:42; Start 02/13/21 at 22:00; Stop 02/14/21 at 21:59; Status DC Potassium Acetate 50 meq/Potassium Phosphate 13.6 mmol/Magnesium Sulfate 6 meq/ Calcium Gluconate 10 meq/ Multivitamins 5 ml/Zinc/Copper/ Manganese/ Selenium 1 ml/ Total Parenteral Nutrition/Amino Acids/Dextrose 1,512 ml @ 63 mls/hr TPN CONT IV Last administered on 02/14/21at 21:59; Start 02/14/21 at 22:00; Stop 02/15/21 at 21:59; Status DC Insulin Glargine (Lantus Syringe) 10 unit QHS SQ Last administered on 02/15/21at 22:11; Start 02/14/21 at 21:00; Stop 02/16/21 at 12:42; Status DC Hydralazine HCl (Apresoline Inj) 10 mg PRN Q4HRS PRN IVP ELEVATED BP, SEE COMMENTS Last administered on 02/16/21at 12:06; Start 02/14/21 at 16:00 Potassium Acetate 50 meq/Potassium Phosphate 13.6 mmol/Magnesium Sulfate 6 meq/ Calcium Gluconate 10 meq/ Multivitamins 5 ml/Zinc/Copper/ Manganese/ Selenium 1 ml/ Total Parenteral Nutrition/Amino Acids/Dextrose 1,512 ml @ 63 mls/hr TPN CONT IV Last administered on 02/15/21at 22:13; Start 02/15/21 at 22:00; Stop 02/16/21 at 21:59 Dexmedetomidine HCl 400 mcg/ Sodium Chloride 100 ml @ 0 mls/hr CONT PRN IV PER PROTOCOL Last administered on 02/16/21at 14:00; Start 02/15/21 at 14:15 Sodium Chloride 500 ml @ 500 mls/hr 1X PRN PRN IV SEE COMMENTS; Start 02/15/21 at 14:15 Atropine Sulfate (ATROPINE 0.5mg SYRINGE) 0.5 mg PRN Q5MIN PRN IV SEE COMMENTS; Start 02/15/21 at 14:15 Potassium Acetate 50 meq/Potassium Phosphate 13.6 mmol/Magnesium Sulfate 6 meq/ Calcium Gluconate 10 meq/ Multivitamins 5 ml/Zinc/Copper/ Manganese/ Selenium 1 ml/ Total Parenteral Nutrition/Amino Acids/Dextrose 1,512 ml @ 63 mls/hr TPN CONT IV ; Start 02/16/21 at 22:00; Stop 02/17/21 at 21:59 Insulin Glargine (Lantus Syringe) 14 unit QHS SQ ; Start 02/16/21 at 21:00 Vitals/I & O Vital Sign - Last 24 Hours 02/15/21 02/15/21 02/15/21 02/15/21 16:30 16:45 17:00 17:55 Temp 99.0 99.0 Pulse 62 62 63 Resp 27 B/P (MAP) 116/60 (78) 118/60 (79) 120/61 (80) Pulse Ox 99 98 O2 Delivery Ventilator Ventilator 02/15/21 02/15/21 02/15/21 02/15/21 18:00 19:00 20:00 20:00 Pulse 58 55 Resp 24 23 B/P (MAP) 121/63 (82) 133/69 (90) Pulse Ox 98 100 100 O2 Delivery Ventilator Ventilator Ventilator 02/15/21 02/15/21 02/15/21 02/15/21 20:00 20:00 21:00 22:00 Temp 97.9 97.9 Pulse 56 52 51 Resp 23 23 20 B/P (MAP) 166/76 (106) 132/70 (90) 123/87 (99) Pulse Ox 100 100 100 O2 Delivery Mechanical Ventilator Ventilator Ventilator Ventilator 02/15/21 02/15/21 02/15/21 02/16/21 22:15 23:00 23:59 00:00 Pulse 49 Resp 17 B/P (MAP) 138/72 (94) Pulse Ox 100 100 O2 Delivery Ventilator Ventilator Mechanical Ventilator 02/16/21 02/16/21 02/16/21 02/16/21 00:01 01:00 01:00 02:00 Temp 97.7 97.7 Pulse 53 55 53 Resp 24 22 20 B/P (MAP) 174/79 (110) 164/80 (108) 145/89 (107) Pulse Ox 100 99 99 99 O2 Delivery Ventilator Ventilator Ventilator Ventilator 02/16/21 02/16/21 02/16/21 02/16/21 03:00 03:00 03:26 04:00 Pulse 53 53 Resp 20 B/P (MAP) 172/82 (112) 171/96 Pulse Ox 98 99 O2 Delivery Ventilator Ventilator Mechanical Ventilator 02/16/21 02/16/21 02/16/21 02/16/21 04:00 04:00 05:00 05:00 Temp 98.0 98.0 Pulse 53 56 Resp 20 24 B/P (MAP) 160/86 (110) 166/86 (112) Pulse Ox 99 100 98 O2 Delivery Ventilator Ventilator Ventilator 02/16/21 02/16/21 02/16/21 02/16/21 06:00 07:00 07:59 08:00 Temp 98.4 98.4 Pulse 73 66 58 Resp 34 28 22 B/P (MAP) 175/90 (118) 177/93 (121) 176/109 (131) Pulse Ox 98 99 99 99 O2 Delivery Ventilator Ventilator Ventilator Ventilator 02/16/21 02/16/21 02/16/21 02/16/21 08:00 08:00 08:18 09:00 Pulse 61 60 Resp 24 B/P (MAP) 211/93 177/103 (127) Pulse Ox 98 O2 Delivery Mechanical Ventilator Ventilator 02/16/21 02/16/21 02/16/21 02/16/21 09:19 10:00 10:15 10:30 Pulse 60 60 62 Resp 28 B/P (MAP) 199/107 (137) 188/98 (128) 184/82 (116) Pulse Ox 98 97 O2 Delivery Ventilator Ventilator 02/16/21 02/16/21 02/16/21 02/16/21 10:45 11:00 11:11 11:26 Pulse 57 62 Resp 24 21 B/P (MAP) 167/80 (109) 165/89 (114) Pulse Ox 96 97 96 O2 Delivery Ventilator Ventilator Ventilator 02/16/21 02/16/21 02/16/21 02/16/21 11:57 12:00 12:00 12:00 Temp 98.8 98.8 Pulse 77 Resp 29 26 B/P (MAP) 168/93 (118) Pulse Ox 95 96 O2 Delivery Ventilator Ventilator Mechanical Ventilator 02/16/21 02/16/21 02/16/21 02/16/21 12:06 12:15 12:30 12:45 Pulse 67 96 66 64 Resp 36 24 B/P (MAP) 173/82 224/105 (144) 162/81 (108) 150/84 (106) Pulse Ox 96 97 O2 Delivery Ventilator Ventilator 02/16/21 02/16/21 02/16/21 02/16/21 13:00 14:00 15:00 15:43 Pulse 63 69 64 Resp 26 20 18 B/P (MAP) 154/67 (96) 137/67 (90) 153/89 (110) Pulse Ox 95 94 96 97 O2 Delivery Ventilator Ventilator Ventilator Ventilator 02/16/21 02/16/21 15:43 16:00 Temp 97.8 97.8 Pulse 74 Resp 26 B/P (MAP) 133/84 (100) Pulse Ox 94 O2 Delivery Mechanical Ventilator Ventilator Intake and Output 02/15/21 02/15/21 02/16/21 15:00 23:00 07:00 Intake Total 70 ml 2029.17 ml 1099.2 ml Output Total 660 ml 1060 ml 960 ml Balance -590 ml 969.17 ml 139.2 ml Justifications for Admission Other Justification LUCINDA DENNY MD Feb 16, 2021 16:33
[2021-02-16] MEDS ORDERED: INSULIN GLARGINE SYRINGE. SQ SCH (21:00)
[2021-02-16] MEDS ORDERED: TOTAL PARENTERAL NUTRITION IV SCH (22:00)
[2021-02-16] MEDS ORDERED: DEXTROSE 70% IV SCH (22:00)
[2021-02-16] MEDS ORDERED: [UNRECOGNIZED DRUG - OTHER] IV SCH (22:00)
[2021-02-16] MEDS ORDERED: AMINO ACID IV SCH (22:00)
[2021-02-17] VITALS (25 sets, daily range): BP systolic 111–168; BP diastolic 62–111
[2021-02-17] MEDS: PROPOFOL 100 ML IV PRN ×4 (02:08→20:42)
[2021-02-17] MEDS: DEXMEDETOMIDINE 400 MCG in IV NORMAL SALINE 100ML 96 ML IV PRN ×6 (03:48→21:10)
[2021-02-17 05:24] LABS: HEMATOCRIT 36.3 % (39.0-53.0); HEMOGLOBIN 11.8 g/dL (13.0-17.5); RED BLOOD COUNT 3.93 x10^6/uL (4.30-5.70); RED CELL DISTRIBUTION WIDTH 13.9 % (11.5-14.5); WHITE BLOOD COUNT 7.5 x10^3/uL (4.0-11.0)
[2021-02-17 05:35] LABS: CALCIUM 9.5 mg/dL (8.5-10.1); CREATININE 0.9 mg/dL (0.7-1.3); GFR 104.2; MAGNESIUM 2.2 mg/dL (1.8-2.4); PHOSPHORUS 3.8 mg/dL (2.6-4.7); POTASSIUM 4.2 mmol/L (3.5-5.1)
[2021-02-17] MEDS: PIPERACILLIN/TAZOBACTAM 3.375 GM in IV NORMAL SALINE 50ML 50 ML IV SCH ×3 (05:50→17:42)
[2021-02-17] MEDS: INSULIN LISPRO 300 UNITS/3 ML VIAL. SQ SCH ×3 (05:50→17:48)
[2021-02-17 07:56] LABS: BASE EXCESS ABG -1 mmol/L (-3-3); HCO3 ABG 24 mmol/L (21-28); PCO2 ABG 39 mmHg (35-46); PO2 ABG 96 mmHg (65-108); SAT O2 ABG 97 % (92-99)
[2021-02-17] MEDS: PANTOPRAZOLE IV PUSH 40 MG VIAL. IVP SCH (08:12)
[2021-02-17] MEDS: hydrALAZINE 20 MG/ML VIAL. IVP PRN ×2 (08:13→15:18)
--- NOTE | 2021-02-17 08:23 | RAD ---
XR CHEST 1V INDICATION: sedated on vent 113 COMPARISON STUDY: 02/13/2021. FINDINGS: Life Support Devices: Stable right IJ central venous catheter, endotracheal tube, enteric tube. Lungs: Normal lung volume. Stable bibasilar opacities. Pleura: Stable small left pleural effusion. Heart and Mediastinum: Stable cardiomediastinal silhouette and great vessels. Bones and Soft Tissues: Stable regional skeleton and soft tissues. IMPRESSION: 1. Stable life support devices. 2. Stable bibasilar opacities. 3. Stable small left pleural effusion. Electronically signed by: Edilson Mancini MD (02/17/2021 8:21 AM) [id number]
--- NOTE | 2021-02-17 08:25 | PDOC ---
PROGRESS NOTES Date of Service: DATE: 02/17/21 TIME: 08:24 Chief Complaint Chief Complaint IMPRESSION Dizziness Large right temporo-occipital intraparenchymal bleed, most likely lobar hemorrhage from hypertension, consider venous sinus thrombosis, , aneurysmal bleed, Had craniotomy 02/09 evening Suspect aspiration, respiratory failure, hypertension, chronic obstructive pulmonary disease, improving acute kidney injury MORBID OBESITY History of Present Illness History of Present Illness 02/17/2021 POD #8 Right occipital craniotomy with evacuation of intracerebral hematoma sedated on vent Patient seen and examined at bedside Good response to IV Lasix Continue antibiotics per infectious disease Weaning ventilator and sedation as tolerated extubation in the next few days Plan of care discussed with bedside nurse Expected interval evolution of a right posterior temporal/occipital intraparenchymal hematoma status post decompressive craniotomy Large right temporo-occipital intraparenchymal bleed, most likely lobar hemorrhage from hypertension, consider venous sinus thrombosis, less likely in this location, aneurysmal bleed, head trauma (also unlikely). Had craniotomy 02/09 evening Suspect of aspiration, respiratory failure, hypertension, chronic obstructive pulmonary disease, improving acute kidney injury cont Zosyn glucose uncontrolled add Lantus 18 UNITS SQ HS 33 MIN CC TIME 02/16/2021 POD #7 Right occipital craniotomy with evacuation of intracerebral hematoma sedated on vent Patient seen and examined at bedside Good response to IV Lasix Continue antibiotics per infectious disease Weaning ventilator and sedation as tolerated extubation in the next few days Plan of care discussed with bedside nurse Expected interval evolution of a right posterior temporal/occipital intraparenchymal hematoma status post decompressive craniotomy Large right temporo-occipital intraparenchymal bleed, most likely lobar hemorrhage from hypertension, consider venous sinus thrombosis, less likely in this location, aneurysmal bleed, head trauma (also unlikely). Had craniotomy 02/09 evening Suspect of aspiration, respiratory failure, hypertension, chronic obstructive pulmonary disease, improving acute kidney injury cont Zosyn glucose uncontrolled add Lantus 14 UNITS SQ HS 35 MIN CC TIME 02/15/2021 POD #6 Right occipital craniotomy with evacuation of intracerebral hematoma sedated on vent Patient seen and examined at bedside Good response to IV Lasix Continue antibiotics per infectious disease Weaning ventilator and sedation as tolerated Hopeful extubation in the next few days Plan of care discussed with bedside nurse Expected interval evolution of a right posterior temporal/occipital intraparenchymal hematoma status post decompressive craniotomy Large right temporo-occipital intraparenchymal bleed, most likely lobar hemorrhage from hypertension, consider venous sinus thrombosis, less likely in this location, aneurysmal bleed, head trauma (also unlikely). Had craniotomy 02/09 evening Suspect of aspiration, respiratory failure, hypertension, chronic obstructive pulmonary disease, improving acute kidney injury cont Zosyn glucose uncontrolled add Lantus 35 MIN CC TIME 02/14/2021 POD #5 Right occipital craniotomy with evacuation of intracerebral hematoma sedated on vent Patient seen and examined at bedside Good response to IV Lasix Continue antibiotics per infectious disease Weaning ventilator and sedation as tolerated Hopeful extubation in the next few days Plan of care discussed with bedside nurse Expected interval evolution of a right posterior temporal/occipital intraparenchymal hematoma status post decompressive craniotomy Large right temporo-occipital intraparenchymal bleed, most likely lobar hemorrhage from hypertension, consider venous sinus thrombosis, less likely in this location, aneurysmal bleed, head trauma (also unlikely). Had craniotomy 02/09 evening Suspect of aspiration, respiratory failure, hypertension, chronic obstructive pulmonary disease, improving acute kidney injury cont Zosyn glucose uncontrolled add Lantus 35 MIN CC TIME 02/13/2021 POD #4 Right occipital craniotomy with evacuation of intracerebral hematoma sedated on vent Patient seen and examined at bedside Good response to IV Lasix Continue antibiotics per infectious disease Weaning ventilator and sedation as tolerated Hopeful extubation in the next few days Plan of care discussed with bedside nurse Expected interval evolution of a right posterior temporal/occipital intraparenchymal hematoma status post decompressive craniotomy Large right temporo-occipital intraparenchymal bleed, most likely lobar hemorrhage from hypertension, consider venous sinus thrombosis, less likely in this location, aneurysmal bleed, head trauma (also unlikely). Had craniotomy 02/09 evening Suspect of aspiration, respiratory failure, hypertension, chronic obstructive pulmonary disease, improving acute kidney injury cont Zosyn 35 MIN CC TIME 02/12/2021 Patient seen and examined at bedside Remains intubated and sedated Good response to IV Lasix yesterday had nearly 3 L out; will diurese again today Continue antibiotics per infectious disease Weaning ventilator and sedation as tolerated Hopeful extubation in the next few days Plan of care discussed with bedside nurse 02/11/2021 Patient seen and examined at bedside No major clinical changes overnight however this morning patient has largely increased amount of secretions Chest x-ray concerning for possible pneumonia, will consult ID who recommended starting Zosyn Otherwise he remains intubated and sedated We will follow subspecialist input Plan discussed with bedside RN 02/10/2021 Patient seen and examined at bedside Underwent craniotomy yesterday due to unresponsiveness in the late afternoon; was also intubated Continues to have a poor neurologic status Neurology and neurosurgery following Discussed plan of care with bedside nurse Patient is a 61-year-old male transferred for to the ICU overnight due to hypertensive emergency and intracranial hemorrhage. Patient's mother at bedside provides most the history. She reports that patient had been in his usual state of health until yesterday morning when he reported feeling tired and having a headache. Patient mother reports he normally gets up early and goes outside however this was not the case yesterday. With this headache he took BC powder and went back to bed. Patient's mother reports that he was in and out of bed throughout most of the afternoon. Says patient did not eat anything yesterday which is very unusual for him. Approximately 1130 last night she had the patient get up to go to the bathroom and heard him fall. He however is able to get up and returned to bed; unknown if he hit his head at this time. Patient again woke up around 2 AM and woke up his mother asking for orange juice and then proceeded to fall again, she does not think he hit his head at this time. He was taken to hospital and found to have a systolic blood pressure greater than [address] scan found to have an intracranial hemorrhage. Due to severity of his condition he was transferred here. Patient's mother reports she is not aware of any past medical history other than hypertension which he intermittently takes hydrochlorothiazide for. Vitals Vitals Vital Signs Date Time Temp Pulse Resp B/P (MAP) Pulse Ox O2 Delivery O2 Flow Rate FiO2 02/17/21 08:13 49 140/94 02/17/21 07:42 100 Ventilator 02/17/21 06:00 22 02/17/21 04:00 97.4 97.4 Physical Exam Physical Exam GENERAL: Sedated, orally intubated gentleman, HEENT: Both pupils are round and reacting. No conjunctival lesion noticed. ETT/OGT + NECK: Rt IJ clean LUNGS: coarse bs HEART: S1, S2 ABDOMEN: Soft, nontender, no organomegaly. EXTREMITIES: +edema, no cyanosis. SKIN:no gen rash NEUROLOGIC: unable to assess art line, central line clean General: Other (sedated) Lungs: Clear, Crackles Abdomen: Soft Extremities: No cyanosis Skin: Other (dressing C,D,I) Labs LABS Laboratory Tests Test 02/16/21 12:10 02/16/21 17:33 02/16/21 21:11 02/16/21 23:47 Glucose (Fingerstick) 273 mg/dL (70-99) 286 mg/dL (70-99) 258 mg/dL (70-99) 248 mg/dL (70-99) Test 02/17/21 05:00 02/17/21 05:09 White Blood Count 7.5 x10^3/uL (4.0-11.0) Red Blood Count 3.93 x10^6/uL (4.30-5.70) Hemoglobin 11.8 g/dL (13.0-17.5) Hematocrit 36.3 % (39.0-53.0) Mean Corpuscular Volume 92 fL (79-100) Mean Corpuscular Hemoglobin 30 pg (25-35) Mean Corpuscular Hemoglobin Concent 32 g/dL (31-37) Red Cell Distribution Width 13.9 % (11.5-14.5) Platelet Count 231 x10^3/uL (140-400) Sodium Level 150 mmol/L (136-145) Potassium Level 4.2 mmol/L (3.5-5.1) Chloride Level 113 mmol/L (98-107) Carbon Dioxide Level 27 mmol/L (21-32) Anion Gap 10 (6-14) Blood Urea Nitrogen 27 mg/dL (8-26) Creatinine 0.9 mg/dL (0.7-1.3) Estimated GFR (Cockcroft-Gault) 104.2 Glucose Level 275 mg/dL (70-99) Calcium Level 9.5 mg/dL (8.5-10.1) Phosphorus Level 3.8 mg/dL (2.6-4.7) Magnesium Level 2.2 mg/dL (1.8-2.4) Glucose (Fingerstick) 257 mg/dL (70-99) Comment Review of Relevant I have reviewed the following items neela (where applicable) has been applied. Labs Laboratory Tests Test 02/15/21 12:02 02/15/21 17:21 02/16/21 00:16 02/16/21 05:00 Glucose (Fingerstick) 275 mg/dL (70-99) 318 mg/dL (70-99) 259 mg/dL (70-99) White Blood Count 8.7 x10^3/uL (4.0-11.0) Red Blood Count 4.06 x10^6/uL (4.30-5.70) Hemoglobin 12.1 g/dL (13.0-17.5) Hematocrit 37.4 % (39.0-53.0) Mean Corpuscular Volume 92 fL (79-100) Mean Corpuscular Hemoglobin 30 pg (25-35) Mean Corpuscular Hemoglobin Concent 32 g/dL (31-37) Red Cell Distribution Width 14.2 % (11.5-14.5) Platelet Count 245 x10^3/uL (140-400) Neutrophils (%) (Auto) 77 % (31-73) Lymphocytes (%) (Auto) 12 % (24-48) Monocytes (%) (Auto) 8 % (0-9) Eosinophils (%) (Auto) 2 % (0-3) Basophils (%) (Auto) 1 % (0-3) Neutrophils # (Auto) 6.8 x10^3/uL (1.8-7.7) Lymphocytes # (Auto) 1.1 x10^3/uL (1.0-4.8) Monocytes # (Auto) 0.7 x10^3/uL (0.0-1.1) Eosinophils # (Auto) 0.1 x10^3/uL (0.0-0.7) Basophils # (Auto) 0.1 x10^3/uL (0.0-0.2) Sodium Level 149 mmol/L (136-145) Potassium Level 4.3 mmol/L (3.5-5.1) Chloride Level 114 mmol/L (98-107) Carbon Dioxide Level 23 mmol/L (21-32) Anion Gap 12 (6-14) Blood Urea Nitrogen 27 mg/dL (8-26) Creatinine 0.9 mg/dL (0.7-1.3) Estimated GFR (Cockcroft-Gault) 104.2 Glucose Level 257 mg/dL (70-99) Calcium Level 9.5 mg/dL (8.5-10.1) Magnesium Level 2.3 mg/dL (1.8-2.4) Test 02/16/21 05:37 02/16/21 08:10 02/16/21 12:10 02/16/21 17:33 Glucose (Fingerstick) 231 mg/dL (70-99) 273 mg/dL (70-99) 286 mg/dL (70-99) O2 Saturation 98 % (92-99) Arterial Blood pH 7.42 (7.35-7.45) Arterial Blood pCO2 at Patient Temp 34 mmHg (35-46) Arterial Blood pO2 at Patient Temp 120 mmHg (65-108) Arterial Blood HCO3 21 mmol/L (21-28) Arterial Blood Base Excess -3 mmol/L (-3-3) FiO2 50 Test 02/16/21 21:11 02/16/21 23:47 02/17/21 05:00 02/17/21 05:09 Glucose (Fingerstick) 258 mg/dL (70-99) 248 mg/dL (70-99) 257 mg/dL (70-99) White Blood Count 7.5 x10^3/uL (4.0-11.0) Red Blood Count 3.93 x10^6/uL (4.30-5.70) Hemoglobin 11.8 g/dL (13.0-17.5) Hematocrit 36.3 % (39.0-53.0) Mean Corpuscular Volume 92 fL (79-100) Mean Corpuscular Hemoglobin 30 pg (25-35) Mean Corpuscular Hemoglobin Concent 32 g/dL (31-37) Red Cell Distribution Width 13.9 % (11.5-14.5) Platelet Count 231 x10^3/uL (140-400) Sodium Level 150 mmol/L (136-145) Potassium Level 4.2 mmol/L (3.5-5.1) Chloride Level 113 mmol/L (98-107) Carbon Dioxide Level 27 mmol/L (21-32) Anion Gap 10 (6-14) Blood Urea Nitrogen 27 mg/dL (8-26) Creatinine 0.9 mg/dL (0.7-1.3) Estimated GFR (Cockcroft-Gault) 104.2 Glucose Level 275 mg/dL (70-99) Calcium Level 9.5 mg/dL (8.5-10.1) Phosphorus Level 3.8 mg/dL (2.6-4.7) Magnesium Level 2.2 mg/dL (1.8-2.4) Laboratory Tests Test 02/16/21 12:10 02/16/21 17:33 02/16/21 21:11 02/16/21 23:47 Glucose (Fingerstick) 273 mg/dL (70-99) 286 mg/dL (70-99) 258 mg/dL (70-99) 248 mg/dL (70-99) Test 02/17/21 05:00 02/17/21 05:09 White Blood Count 7.5 x10^3/uL (4.0-11.0) Red Blood Count 3.93 x10^6/uL (4.30-5.70) Hemoglobin 11.8 g/dL (13.0-17.5) Hematocrit 36.3 % (39.0-53.0) Mean Corpuscular Volume 92 fL (79-100) Mean Corpuscular Hemoglobin 30 pg (25-35) Mean Corpuscular Hemoglobin Concent 32 g/dL (31-37) Red Cell Distribution Width 13.9 % (11.5-14.5) Platelet Count 231 x10^3/uL (140-400) Sodium Level 150 mmol/L (136-145) Potassium Level 4.2 mmol/L (3.5-5.1) Chloride Level 113 mmol/L (98-107) Carbon Dioxide Level 27 mmol/L (21-32) Anion Gap 10 (6-14) Blood Urea Nitrogen 27 mg/dL (8-26) Creatinine 0.9 mg/dL (0.7-1.3) Estimated GFR (Cockcroft-Gault) 104.2 Glucose Level 275 mg/dL (70-99) Calcium Level 9.5 mg/dL (8.5-10.1) Phosphorus Level 3.8 mg/dL (2.6-4.7) Magnesium Level 2.2 mg/dL (1.8-2.4) Glucose (Fingerstick) 257 mg/dL (70-99) Microbiology 02/11/21 Blood Culture - Final, Complete NO GROWTH AFTER 5 DAYS 02/11/21 Gram Stain Evaluation - Final, Complete 02/11/21 Respiratory Culture - Final, Complete Medications Current Medications Nicardipine HCl 50 mg/Sodium Chloride 250 ml @ 12.5 mls/hr CONT PRN IV SEE I/O RECORD Last administered on 02/16/21at 14:00; Start 02/09/21 at 06:15 Labetalol HCl (Normodyne Iv Push) 10 mg PRN Q2HR PRN IVP HYPERTENSION Last administered on 02/15/21at 10:49; Start 02/09/21 at 06:15 Lorazepam (Ativan Inj) 2 mg 1X ONCE IVP Last administered on 02/09/21at 10:54; Start 02/09/21 at 10:45; Stop 02/09/21 at 10:46; Status DC Lorazepam (Ativan Inj) 2 mg 1X ONCE IVP Last administered on 02/09/21at 11:00; Start 02/09/21 at 11:00; Stop 02/09/21 at 11:01; Status DC Fentanyl Citrate (Fentanyl 2ml Vial) 25 mcg PRN Q2HR PRN IVP MODERATE TO SEVERE PAIN Last administered on 02/09/21at 13:37; Start 02/09/21 at 13:30 Info (Review Meds) 1 ea PRN 1X PRN MC SEE COMMENTS; Start 02/09/21 at 15:00 Acetaminophen (Tylenol Supp) 650 mg PRN Q6HRS PRN [place] FEVER > 100.5'F or 38'C; Start 02/09/21 at 15:00; Stop 02/11/21 at 21:12; Status DC Albuterol Sulfate (Ventolin Neb Soln) 2.5 mg PRN Q4HRS PRN NEB SHORTNESS OF BREATH; Start 02/09/21 at 15:15 Iohexol (Omnipaque 350 Mg/ml) 75 ml 1X ONCE IV Last administered on 02/09/21at 15:52; Start 02/09/21 at 15:30; Stop 02/09/21 at 15:35; Status DC Iohexol (Omnipaque 350 Mg/ml) 100 ml STK-MED ONCE .ROUTE ; Start 02/09/21 at 15:26; Stop 02/09/21 at 15:27; Status DC Info (CONTRAST GIVEN -- Rx MONITORING) 1 each PRN DAILY PRN MC SEE COMMENTS; Start 02/09/21 at 15:45; Stop 02/11/21 at 15:44; Status DC Propofol 100 ml @ As Directed STK-MED ONCE IV ; Start 02/09/21 at 15:51; Stop 02/09/21 at 15:51; Status DC Rocuronium Newton (Zemuron) 50 mg STK-MED ONCE .ROUTE ; Start 02/09/21 at 15:51; Stop 02/09/21 at 15:51; Status DC Lidocaine HCl (Lidocaine HCl 2% Abboject) 100 mg STK-MED ONCE .ROUTE ; Start 02/09/21 at 15:52; Stop 02/09/21 at 15:53; Status DC Propofol 100 ml @ 3.507 mls/ hr CONT PRN IV PER PROTOCOL Last administered on 02/17/21at 02:08; Start 02/09/21 at 16:15 Lidocaine HCl (Lidocaine HCl 2% Abboject) 100 mg 1X ONCE IV Last administered on 02/09/21at 16:17; Start 02/09/21 at 16:15; Stop 02/09/21 at 16:17; Status DC Rocuronium Newton (Zemuron) 50 mg 1X ONCE IV Last administered on 02/09/21at 16:17; Start 02/09/21 at 16:15; Stop 02/09/21 at 16:17; Status DC Rocuronium Newton (Zemuron) 100 mg STK-MED ONCE .ROUTE ; Start 02/09/21 at 16:31; Stop 02/09/21 at 16:32; Status DC Gelatin (Gelfoam Size 100) 1 each STK-MED ONCE .ROUTE Last administered on 02/09/21at 17:49; Start 02/09/21 at 16:33; Stop 02/09/21 at 16:33; Status DC Bupivacaine HCl/ Epinephrine Bitart (Sensorcain-Epi 0.5%-1:[id number] Mpf) 30 ml STK-MED ONCE .ROUTE Last administered on 02/09/21at 17:49; Start 02/09/21 at 16:33; Stop 02/09/21 at 16:33; Status DC Cellulose (Surgicel Hemostat 4x8) 1 each STK-MED ONCE .ROUTE Last administered on 02/09/21at 18:38; Start 02/09/21 at 16:33; Stop 02/09/21 at 16:33; Status DC Thrombin 20,000 unit STK-MED ONCE TP Last administered on 02/09/21at 17:49; Start 02/09/21 at 16:33; Stop 02/09/21 at 16:33; Status DC Fentanyl Citrate (Fentanyl 2ml Vial) 75 mcg 1X ONCE IVP Last administered on 02/09/21at 16:45; Start 02/09/21 at 16:45; Stop 02/09/21 at 16:47; Status DC Propofol (Diprivan) 200 mg 1X ONCE IV ; Start 02/09/21 at 17:15; Stop 02/09/21 at 17:16; Status DC Lidocaine HCl (Lidocaine HCl 2% Abboject) 100 mg 1X ONCE IV ; Start 02/09/21 at 17:15; Stop 02/09/21 at 17:16; Status DC Rocuronium Newton (Zemuron) 50 mg 1X ONCE IV ; Start 02/09/21 at 17:15; Stop 02/09/21 at 17:16; Status DC Propofol 100 ml @ 0 mls/hr CONT PRN PRN IV SEDATION; Start 02/09/21 at 17:15; Stop 02/10/21 at 05:14; Status DC Cefazolin Sodium (Ancef) 1 gm STK-MED ONCE IVP ; Start 02/09/21 at 17:28; Stop 02/09/21 at 17:28; Status DC Fentanyl Citrate (Fentanyl 2ml Vial) 100 mcg STK-MED ONCE .ROUTE ; Start 02/09/21 at 17:43; Stop 02/09/21 at 17:43; Status DC Rocuronium [place] (Zemuron) 100 mg STK-MED ONCE .ROUTE ; Start 02/09/21 at 17:58; Stop 02/09/21 at 17:59; Status DC Vecuronium Newton (Norcuron Bolus) 10 mg STK-MED ONCE IV ; Start 02/09/21 at 18:49; Stop 02/09/21 at 18:50; Status DC Sodium Chloride (SODIUM CHLORIDE 20ml) 20 ml STK-MED ONCE IJ ; Start 02/09/21 at 18:50; Stop 02/09/21 at 18:50; Status DC Sevoflurane (Ultane) 90 ml STK-MED ONCE IH ; Start 02/09/21 at 19:20; Stop 02/09/21 at 19:21; Status DC Fentanyl Citrate 30 ml @ 2.5 mls/hr CONT PRN IV SEE PROTOCOL Last administered on 02/09/21at 23:40; Start 02/09/21 at 23:15; Stop 02/10/21 at 04:43; Status DC Fentanyl Citrate 55 ml @ 0 mls/hr CONT PRN IV SEE I/O Last administered on 02/16/21at 11:11; Start 02/10/21 at 05:00 Potassium Chloride/Dextrose/ Sod Cl 1,000 ml @ 80 mls/hr [id number] IV ; Start 02/10/21 at 09:00; Stop 02/10/21 at 13:21; Status DC Pantoprazole Sodium (PROTONIX VIAL for IV PUSH) 40 mg DAILYAC IVP Last administered on 02/17/21at 08:12; Start 02/10/21 at 09:00 Lidocaine HCl (Buffered Lidocaine 1%) 3 ml STK-MED ONCE .ROUTE ; Start 02/10/21 at 13:18; Stop 02/10/21 at 13:18; Status DC Sodium Chloride 1,000 ml @ 80 mls/hr [id number] IV Last administered on 02/12/21at 03:00; Start 02/10/21 at 13:30; Stop 02/12/21 at 15:36; Status DC Lidocaine HCl (Buffered Lidocaine 1%) 6 ml 1X ONCE INJ Last administered on 02/10/21at 13:57; Start 02/10/21 at 13:45; Stop 02/10/21 at 13:46; Status DC Potassium Chloride/Water 100 ml @ 100 mls/hr Q1H IV Last administered on 02/11/21at 10:07; Start 02/11/21 at 08:00; Stop 02/11/21 at 09:59; Status DC Piperacillin Sod/ Tazobactam Sod 3.375 gm/Sodium Chloride 50 ml @ 100 mls/hr Q6HRS IV Last administered on 02/17/21at 05:50; Start 02/11/21 at 09:00 Info (Tpn Per Pharmacy) 1 each PRN DAILY PRN MC SEE COMMENTS Last administered on 02/16/21at 09:56; Start 02/11/21 at 11:15 Sodium Chloride 90 meq/Potassium Chloride 50 meq/ Potassium Phosphate 13.6 mmol/Magnesium Sulfate 10 meq/ Calcium Gluconate 10 meq/ Multivitamins 5 ml/Zinc/Copper/ Manganese/ Selenium 1 ml/ Total Parenteral Nutrition/Amino Acids/Dextrose 1,512 ml @ 63 mls/hr TPN CONT IV Last administered on 02/11/21at 22:32; Start 02/11/21 at 22:00; Stop 02/12/21 at 21:59; Status DC Furosemide (Lasix) 20 mg 1X ONCE IVP Last administered on 02/11/21at 15:11; Start 02/11/21 at 15:30; Stop 02/11/21 at 15:31; Status DC Furosemide (Lasix) 20 mg 1X ONCE IVP Last administered on 02/11/21at 17:00; Start 02/11/21 at 17:00; Stop 02/11/21 at 17:01; Status DC Midazolam HCl 100 ml @ 1 mls/hr CONT PRN IV SEE PROTOCOL Last administered on at 20:58; Start 02/11/21 at 19:30 Acetaminophen (Tylenol Supp) 650 mg PRN Q6HRS PRN [place] MILD PAIN / TEMP > 100.3'F; Start 02/11/21 at 21:15 Sodium Chloride 80 meq/Potassium Chloride 50 meq/ Potassium Phosphate 13.6 mmol/Magnesium Sulfate 6 meq/ Calcium Gluconate 10 meq/ Multivitamins 5 ml/Zinc/Copper/ Manganese/ Selenium 1 ml/ Total Parenteral Nutrition/Amino Acids/Dextrose 1,512 ml @ 63 mls/hr TPN CONT IV Last administered on 02/12/21at 22:09; Start 02/12/21 at 22:00; Stop 02/13/21 at 21:59; Status DC Furosemide (Lasix) 40 mg 1X ONCE IVP Last administered on 02/12/21at 12:44; Start 02/12/21 at 12:30; Stop 02/12/21 at 12:31; Status DC Insulin Human Lispro (HumaLOG) 0-5 UNITS Q6HRS SQ Last administered on 02/17/21at 05:50; Start 02/12/21 at 12:00 Dextrose (Dextrose 50%-Water Syringe) 12.5 gm PRN Q15MIN PRN IV SEE COMMENTS; Start 02/12/21 at 12:15 Clonidine HCl (Catapres Tts-3) 1 patch WEEKLY TD Last administered on 02/13/21at 11:47; Start 02/13/21 at 11:00 Sodium Chloride 80 meq/Potassium Chloride 50 meq/ Potassium Phosphate 13.6 mmol/Magnesium Sulfate 6 meq/ Calcium Gluconate 10 meq/ Multivitamins 5 ml/Zinc/Copper/ Manganese/ Selenium 1 ml/ Total Parenteral Nutrition/Amino Acids/Dextrose 1,512 ml @ 63 mls/hr TPN CONT IV Last administered on 02/13at 21:42; Start 02/13/21 at 22:00; Stop 02/14/21 at 21:59; Status DC Potassium Acetate 50 meq/Potassium Phosphate 13.6 mmol/Magnesium Sulfate 6 meq/ Calcium Gluconate 10 meq/ Multivitamins 5 ml/Zinc/Copper/ Manganese/ Selenium 1 ml/ Total Parenteral Nutrition/Amino Acids/Dextrose 1,512 ml @ 63 mls/hr TPN CONT IV Last administered on 02/14/21at 21:59; Start 02/14/21 at 22:00; Stop 02/15/21 at 21:59; Status DC Insulin Glargine (Lantus Syringe) 10 unit QHS SQ Last administered on 02/15/21at 22:11; Start 02/14/21 at 21:00; Stop 02/16/21 at 12:42; Status DC Hydralazine HCl (Apresoline Inj) 10 mg PRN Q4HRS PRN IVP ELEVATED BP, SEE COMMENTS Last administered on 02/17/21at 08:13; Start 02/14/21 at 16:00 Potassium Acetate 50 meq/Potassium Phosphate 13.6 mmol/Magnesium Sulfate 6 meq/ Calcium Gluconate 10 meq/ Multivitamins 5 ml/Zinc/Copper/ Manganese/ Selenium 1 ml/ Total Parenteral Nutrition/Amino Acids/Dextrose 1,512 ml @ 63 mls/hr TPN CONT IV Last administered on 02/15/21at 22:13; Start 02/15/21 at 22:00; Stop 02/16/21 at 21:59; Status DC Dexmedetomidine HCl 400 mcg/ Sodium Chloride 100 ml @ 0 mls/hr CONT PRN IV PER PROTOCOL Last administered on 02/17/21at 07:31; Start 02/15/21 at 14:15 Sodium Chloride 500 ml @ 500 mls/hr 1X PRN PRN IV SEE COMMENTS; Start 02/15/21 at 14:15 Atropine Sulfate (ATROPINE 0.5mg SYRINGE) 0.5 mg PRN Q5MIN PRN IV SEE COMMENTS; Start 02/15/21 at 14:15 Potassium Acetate 50 meq/Potassium Phosphate 13.6 mmol/Magnesium Sulfate 6 meq/ Calcium Gluconate 10 meq/ Multivitamins 5 ml/Zinc/Copper/ Manganese/ Selenium 1 ml/ Total Parenteral Nutrition/Amino Acids/Dextrose 1,512 ml @ 63 mls/hr TPN CONT IV Last administered on 02/16/21at 22:59; Start 02/16/21 at 22:00; Stop 02/17/21 at 21:59 Insulin Glargine (Lantus Syringe) 14 unit QHS SQ Last administered on 02/16/21at 21:14; Start 02/16/21 at 21:00 Vitals/I & O Vital Sign - Last 24 Hours 02/16/21 02/16/21 02/16/21 02/16/21 09:00 09:19 10:00 10:15 Pulse 60 60 60 Resp 24 28 B/P (MAP) 177/103 (127) 199/107 (137) 188/98 (128) Pulse Ox 98 98 97 O2 Delivery Ventilator Ventilator Ventilator 02/16/21 02/16/21 02/16/21 02/16/21 10:30 10:45 11:00 11:11 Pulse 62 57 62 Resp 24 21 B/P (MAP) 184/82 (116) 167/80 (109) 165/89 (114) Pulse Ox 96 97 O2 Delivery Ventilator Ventilator 02/16/21 02/16/21 02/16/21 02/16/21 11:26 11:57 12:00 12:00 Temp 98.8 98.8 Pulse 77 Resp 29 26 B/P (MAP) 168/93 (118) Pulse Ox 96 95 96 O2 Delivery Ventilator Ventilator Ventilator Mechanical Ventilator 02/16/21 02/16/21 02/16/21 02/16/21 12:00 12:06 12:15 12:30 Pulse 67 96 66 Resp 36 24 B/P (MAP) 173/82 224/105 (144) 162/81 (108) Pulse Ox 96 97 O2 Delivery Ventilator Ventilator 02/16/21 02/16/21 02/16/21 02/16/21 12:45 13:00 14:00 15:00 Pulse 64 63 69 64 Resp 26 20 18 B/P (MAP) 150/84 (106) 154/67 (96) 137/67 (90) 153/89 (110) Pulse Ox 95 94 96 O2 Delivery Ventilator Ventilator Ventilator 02/16/21 02/16/21 02/16/21 02/16/21 15:43 15:43 16:00 16:59 Temp 97.8 97.8 Pulse 74 Resp 26 B/P (MAP) 133/84 (100) Pulse Ox 97 94 94 O2 Delivery Ventilator Mechanical Ventilator Ventilator Ventilator 02/16/21 02/16/21 02/16/21 02/16/21 17:00 18:00 19:00 20:00 Pulse 68 69 59 Resp 27 20 18 B/P (MAP) 148/85 (106) 151/91 (111) 151/93 (112) Pulse Ox 96 98 98 O2 Delivery Ventilator Ventilator Ventilator Mechanical Ventilator 02/16/21 02/16/21 02/16/21 02/16/21 20:00 20:28 21:00 22:00 Temp 98.1 98.1 Pulse 60 53 52 Resp 20 18 17 B/P (MAP) 152/91 (111) 155/94 (114) 157/95 (115) Pulse Ox 99 99 99 99 O2 Delivery Ventilator Ventilator Ventilator Ventilator 02/16/21 02/16/21 02/16/21 02/17/21 23:00 23:59 23:59 00:19 Temp 98.1 98.1 Pulse 50 51 Resp 18 17 B/P (MAP) 140/89 (106) 138/71 (93) Pulse Ox 99 98 99 O2 Delivery Ventilator Mechanical Ventilator Ventilator Ventilator 02/17/21 02/17/21 02/17/21 02/17/21 01:00 02:00 03:00 03:03 Pulse 62 58 47 Resp 18 18 17 B/P (MAP) 132/82 (99) 136/88 (104) 159/99 (119) Pulse Ox 99 99 99 99 O2 Delivery Ventilator Ventilator Ventilator Ventilator 02/17/21 02/17/21 02/17/21 02/17/21 04:00 04:00 05:00 06:00 Temp 97.4 97.4 Pulse 47 48 55 Resp 16 22 22 B/P (MAP) 150/94 (112) 149/96 (113) 134/88 (103) Pulse Ox 100 99 99 O2 Delivery Mechanical Ventilator Ventilator Ventilator Ventilator 02/17/21 02/17/21 02/17/21 06:09 07:42 08:13 Pulse 49 B/P (MAP) 140/94 Pulse Ox 99 100 O2 Delivery Ventilator Ventilator Intake and Output 02/16/21 02/16/21 02/17/21 15:00 23:00 07:00 Intake Total 70 ml 1336.47 ml 2313 ml Output Total 1285 ml 800 ml 615 ml Balance -1215 ml 536.47 ml 1698 ml Justicifation of Admission Dx: Justifications for Admission: Justification of Admission Dx: Yes Acute Hemorrhagic Stroke: Acute Hemorrhagic Stroke LESLI ALCOCER MD Feb 17, 2021 08:25
[2021-02-17 08:32] LABS: FIO2 ABG 40%+6
--- NOTE | 2021-02-17 08:54 | PDOC ---
Infectious Disease Note Subjective: Subjective sedated on vent Vital Signs: Vital Signs Vital Signs Date Time Temp Pulse Resp B/P (MAP) Pulse Ox O2 Delivery O2 Flow Rate FiO2 02/17/21 08:13 49 140/94 02/17/21 07:42 100 Ventilator 02/17/21 06:00 22 02/17/21 04:00 97.4 97.4 Physical Exam: PHYSICAL EXAM GENERAL: Sedated, orally intubated gentleman, HEENT: Both pupils are round and reacting. No conjunctival lesion noticed. ETT/OGT + NECK: Rt IJ clean LUNGS: coarse bs HEART: S1, S2 ABDOMEN: Soft, nontender, no organomegaly. EXTREMITIES: +edema, no cyanosis. SKIN:no gen rash NEUROLOGIC: unable to assess art line, central line clean Medications: Inpatient Meds: Medications reviewed. Labs: Lab Laboratory Tests Test 02/16/21 12:10 02/16/21 17:33 02/16/21 21:11 02/16/21 23:47 Glucose (Fingerstick) 273 mg/dL (70-99) 286 mg/dL (70-99) 258 mg/dL (70-99) 248 mg/dL (70-99) Test 02/17/21 05:00 02/17/21 05:09 02/17/21 08:00 White Blood Count 7.5 x10^3/uL (4.0-11.0) Red Blood Count 3.93 x10^6/uL (4.30-5.70) Hemoglobin 11.8 g/dL (13.0-17.5) Hematocrit 36.3 % (39.0-53.0) Mean Corpuscular Volume 92 fL (79-100) Mean Corpuscular Hemoglobin 30 pg (25-35) Mean Corpuscular Hemoglobin Concent 32 g/dL (31-37) Red Cell Distribution Width 13.9 % (11.5-14.5) Platelet Count 231 x10^3/uL (140-400) Sodium Level 150 mmol/L (136-145) Potassium Level 4.2 mmol/L (3.5-5.1) Chloride Level 113 mmol/L (98-107) Carbon Dioxide Level 27 mmol/L (21-32) Anion Gap 10 (6-14) Blood Urea Nitrogen 27 mg/dL (8-26) Creatinine 0.9 mg/dL (0.7-1.3) Estimated GFR (Cockcroft-Gault) 104.2 Glucose Level 275 mg/dL (70-99) Calcium Level 9.5 mg/dL (8.5-10.1) Phosphorus Level 3.8 mg/dL (2.6-4.7) Magnesium Level 2.2 mg/dL (1.8-2.4) Glucose (Fingerstick) 257 mg/dL (70-99) O2 Saturation 97 % (92-99) Arterial Blood pH 7.40 (7.35-7.45) Arterial Blood pCO2 at Patient Temp 39 mmHg (35-46) Arterial Blood pO2 at Patient Temp 96 mmHg (65-108) Arterial Blood HCO3 24 mmol/L (21-28) Arterial Blood Base Excess -1 mmol/L (-3-3) FiO2 40%+6 Objective: Assessment: 1. Fever.Improved 2. Suspected aspiration.sputum cultures NRF 3. Intracranial bleed with mass effect, status post craniotomy and hematoma evacuation. 4. Encephalopathy 5. Respiratory failure. 6. Hypertension. 7. Chronic obstructive pulmonary disease. 8. MARVIN improved U/S BUE to neg for DVT Plan: Plan of Care cont Zosyn Monitor labs and cults cont supportive care RAMU DELGADO MD Feb 17, 2021 08:54
--- NOTE | 2021-02-17 09:05 | PDOC ---
PROGRESS NOTES Date of Service DATE: 02/17/21 TIME: 09:04 Assessment Large right temporo-occipital intraparenchymal bleed, most likely lobar hemorrhage from hypertension, consider venous sinus thrombosis, less likely in this location, aneurysmal bleed, head trauma (also unlikely). CT angiogram was negative. Follow-up head CT 02/13 showing expected evolution of the hemorrhage. Had craniotomy 02/09 evening Suspected aspiration, respiratory failure, hypertension, chronic obstructive pulmonary disease, improving acute kidney injury Agitated, difficult to wean sedation. Becomes tachypneic without sedation, but otherwise is weanable, nurse tells me Plan Will follow Follow-up head CT scans per neurosurgery, perhaps next week Subjective None Objective Vital Signs Date Time Temp Pulse Resp B/P (MAP) Pulse Ox O2 Delivery O2 Flow Rate FiO2 02/17/21 08:13 49 140/94 02/17/21 07:42 100 Ventilator 02/17/21 06:00 22 02/17/21 04:00 97.4 97.4 Intake and Output 02/17/21 07:00 Intake Total 3719.47 ml Output Total 2700 ml Balance 1019.47 ml Intake IV Total 3719.47 ml Output Urine Total 2600 ml Gastric Drainage Total 100 ml PHYSICAL EXAM Sedated on vent, not responsive Pupils small, minimally reactive No spontaneous eye movements CN: no focal findings. Muscle tone: normal. Muscle strength: no response to pain DTR: 0+ Plantar reflex: silent Gait: not examined Sensory exam: not cooperative. Cerebellar: not cooperative Review of Relevant I have reviewed the following items neela (where applicable) has been applied. Labs Laboratory Tests Test 02/15/21 12:02 02/15/21 17:21 02/16/21 00:16 02/16/21 05:00 Glucose (Fingerstick) 275 mg/dL (70-99) 318 mg/dL (70-99) 259 mg/dL (70-99) White Blood Count 8.7 x10^3/uL (4.0-11.0) Red Blood Count 4.06 x10^6/uL (4.30-5.70) Hemoglobin 12.1 g/dL (13.0-17.5) Hematocrit 37.4 % (39.0-53.0) Mean Corpuscular Volume 92 fL (79-100) Mean Corpuscular Hemoglobin 30 pg (25-35) Mean Corpuscular Hemoglobin Concent 32 g/dL (31-37) Red Cell Distribution Width 14.2 % (11.5-14.5) Platelet Count 245 x10^3/uL (140-400) Neutrophils (%) (Auto) 77 % (31-73) Lymphocytes (%) (Auto) 12 % (24-48) Monocytes (%) (Auto) 8 % (0-9) Eosinophils (%) (Auto) 2 % (0-3) Basophils (%) (Auto) 1 % (0-3) Neutrophils # (Auto) 6.8 x10^3/uL (1.8-7.7) Lymphocytes # (Auto) 1.1 x10^3/uL (1.0-4.8) Monocytes # (Auto) 0.7 x10^3/uL (0.0-1.1) Eosinophils # (Auto) 0.1 x10^3/uL (0.0-0.7) Basophils # (Auto) 0.1 x10^3/uL (0.0-0.2) Sodium Level 149 mmol/L (136-145) Potassium Level 4.3 mmol/L (3.5-5.1) Chloride Level 114 mmol/L (98-107) Carbon Dioxide Level 23 mmol/L (21-32) Anion Gap 12 (6-14) Blood Urea Nitrogen 27 mg/dL (8-26) Creatinine 0.9 mg/dL (0.7-1.3) Estimated GFR (Cockcroft-Gault) 104.2 Glucose Level 257 mg/dL (70-99) Calcium Level 9.5 mg/dL (8.5-10.1) Magnesium Level 2.3 mg/dL (1.8-2.4) Test 02/16/21 05:37 02/16/21 08:10 02/16/21 12:10 02/16/21 17:33 Glucose (Fingerstick) 231 mg/dL (70-99) 273 mg/dL (70-99) 286 mg/dL (70-99) O2 Saturation 98 % (92-99) Arterial Blood pH 7.42 (7.35-7.45) Arterial Blood pCO2 at Patient Temp 34 mmHg (35-46) Arterial Blood pO2 at Patient Temp 120 mmHg (65-108) Arterial Blood HCO3 21 mmol/L (21-28) Arterial Blood Base Excess -3 mmol/L (-3-3) FiO2 50 Test 02/16/21 21:11 02/16/21 23:47 02/17/21 05:00 02/17/21 05:09 Glucose (Fingerstick) 258 mg/dL (70-99) 248 mg/dL (70-99) 257 mg/dL (70-99) White Blood Count 7.5 x10^3/uL (4.0-11.0) Red Blood Count 3.93 x10^6/uL (4.30-5.70) Hemoglobin 11.8 g/dL (13.0-17.5) Hematocrit 36.3 % (39.0-53.0) Mean Corpuscular Volume 92 fL (79-100) Mean Corpuscular Hemoglobin 30 pg (25-35) Mean Corpuscular Hemoglobin Concent 32 g/dL (31-37) Red Cell Distribution Width 13.9 % (11.5-14.5) Platelet Count 231 x10^3/uL (140-400) Sodium Level 150 mmol/L (136-145) Potassium Level 4.2 mmol/L (3.5-5.1) Chloride Level 113 mmol/L (98-107) Carbon Dioxide Level 27 mmol/L (21-32) Anion Gap 10 (6-14) Blood Urea Nitrogen 27 mg/dL (8-26) Creatinine 0.9 mg/dL (0.7-1.3) Estimated GFR (Cockcroft-Gault) 104.2 Glucose Level 275 mg/dL (70-99) Calcium Level 9.5 mg/dL (8.5-10.1) Phosphorus Level 3.8 mg/dL (2.6-4.7) Magnesium Level 2.2 mg/dL (1.8-2.4) Test 02/17/21 08:00 O2 Saturation 97 % (92-99) Arterial Blood pH 7.40 (7.35-7.45) Arterial Blood pCO2 at Patient Temp 39 mmHg (35-46) Arterial Blood pO2 at Patient Temp 96 mmHg (65-108) Arterial Blood HCO3 24 mmol/L (21-28) Arterial Blood Base Excess -1 mmol/L (-3-3) FiO2 40%+6 Laboratory Tests Test 02/16/21 12:10 02/16/21 17:33 02/16/21 21:11 02/16/21 23:47 Glucose (Fingerstick) 273 mg/dL (70-99) 286 mg/dL (70-99) 258 mg/dL (70-99) 248 mg/dL (70-99) Test 02/17/21 05:00 02/17/21 05:09 02/17/21 08:00 White Blood Count 7.5 x10^3/uL (4.0-11.0) Red Blood Count 3.93 x10^6/uL (4.30-5.70) Hemoglobin 11.8 g/dL (13.0-17.5) Hematocrit 36.3 % (39.0-53.0) Mean Corpuscular Volume 92 fL (79-100) Mean Corpuscular Hemoglobin 30 pg (25-35) Mean Corpuscular Hemoglobin Concent 32 g/dL (31-37) Red Cell Distribution Width 13.9 % (11.5-14.5) Platelet Count 231 x10^3/uL (140-400) Sodium Level 150 mmol/L (136-145) Potassium Level 4.2 mmol/L (3.5-5.1) Chloride Level 113 mmol/L (98-107) Carbon Dioxide Level 27 mmol/L (21-32) Anion Gap 10 (6-14) Blood Urea Nitrogen 27 mg/dL (8-26) Creatinine 0.9 mg/dL (0.7-1.3) Estimated GFR (Cockcroft-Gault) 104.2 Glucose Level 275 mg/dL (70-99) Calcium Level 9.5 mg/dL (8.5-10.1) Phosphorus Level 3.8 mg/dL (2.6-4.7) Magnesium Level 2.2 mg/dL (1.8-2.4) Glucose (Fingerstick) 257 mg/dL (70-99) O2 Saturation 97 % (92-99) Arterial Blood pH 7.40 (7.35-7.45) Arterial Blood pCO2 at Patient Temp 39 mmHg (35-46) Arterial Blood pO2 at Patient Temp 96 mmHg (65-108) Arterial Blood HCO3 24 mmol/L (21-28) Arterial Blood Base Excess -1 mmol/L (-3-3) FiO2 40%+6 Microbiology 02/11/21 Blood Culture - Final, Complete NO GROWTH AFTER 5 DAYS 02/11/21 Gram Stain Evaluation - Final, Complete 02/11/21 Respiratory Culture - Final, Complete Medications Current Medications Nicardipine HCl 50 mg/Sodium Chloride 250 ml @ 12.5 mls/hr CONT PRN IV SEE I/O RECORD Last administered on 02/16/21at 14:00; Start 02/09/21 at 06:15 Labetalol HCl (Normodyne Iv Push) 10 mg PRN Q2HR PRN IVP HYPERTENSION Last admi nistered on 02/15/21at 10:49; Start 02/09/21 at 06:15 Lorazepam (Ativan Inj) 2 mg 1X ONCE IVP Last administered on 02/09/21at 10:54; Start 02/09/21 at 10:45; Stop 02/09/21 at 10:46; Status DC Lorazepam (Ativan Inj) 2 mg 1X ONCE IVP Last administered on 02/09/21at 11:00; Start 02/09/21 at 11:00; Stop 02/09/21 at 11:01; Status DC Fentanyl Citrate (Fentanyl 2ml Vial) 25 mcg PRN Q2HR PRN IVP MODERATE TO SEVERE PAIN Last administered on 02/09/21at 13:37; Start 02/09/21 at 13:30 Info (Review Meds) 1 ea PRN 1X PRN MC SEE COMMENTS; Start 02/09/21 at 15:00 Acetaminophen (Tylenol Supp) 650 mg PRN Q6HRS PRN LA FEVER > 100.5'F or 38'C; Start 02/09/21 at 15:00; Stop 02/11/21 at 21:12; Status DC Albuterol Sulfate (Ventolin Neb Soln) 2.5 mg PRN Q4HRS PRN NEB SHORTNESS OF BREATH; Start 02/09/21 at 15:15 Iohexol (Omnipaque 350 Mg/ml) 75 ml 1X ONCE IV Last administered on 02/09/21at 15:52; Start 02/09/21 at 15:30; Stop 02/09/21 at 15:35; Status DC Iohexol (Omnipaque 350 Mg/ml) 100 ml STK-MED ONCE .ROUTE ; Start 02/09/21 at 15:26; Stop 02/09/21 at 15:27; Status DC Info (CONTRAST GIVEN -- Rx MONITORING) 1 each PRN DAILY PRN MC SEE COMMENTS; Start 02/09/21 at 15:45; Stop 02/11/21 at 15:44; Status DC Propofol 100 ml @ As Directed STK-MED ONCE IV ; Start 02/09/21 at 15:51; Stop 02/09/21 at 15:51; Status DC Rocuronium [place] (Zemuron) 50 mg STK-MED ONCE .ROUTE ; Start 02/09/21 at 15:51; Stop 02/09/21 at 15:51; Status DC Lidocaine HCl (Lidocaine HCl 2% Abboject) 100 mg STK-MED ONCE .ROUTE ; Start 02/09/21 at 15:52; Stop 02/09/21 at 15:53; Status DC Propofol 100 ml @ 3.507 mls/ hr CONT PRN IV PER PROTOCOL Last administered on 02/17/21at 02:08; Start 02/09/21 at 16:15 Lidocaine HCl (Lidocaine HCl 2% Abboject) 100 mg 1X ONCE IV Last administered on 02/09/21at 16:17; Start 02/09/21 at 16:15; Stop 02/09/21 at 16:17; Status DC Rocuronium [place] (Zemuron) 50 mg 1X ONCE IV Last administered on 02/09/21at 16:17; Start 02/09/21 at 16:15; Stop 02/09/21 at 16:17; Status DC Rocuronium [place] (Zemuron) 100 mg STK-MED ONCE .ROUTE ; Start 02/09/21 at 16:31; Stop 02/09/21 at 16:32; Status DC Gelatin (Gelfoam Size 100) 1 each STK-MED ONCE .ROUTE Last administered on 02/09/21at 17:49; Start 02/09/21 at 16:33; Stop 02/09/21 at 16:33; Status DC Bupivacaine HCl/ Epinephrine Bitart (Sensorcain-Epi 0.5%-1:[id number] Mpf) 30 ml STK-MED ONCE .ROUTE Last administered on 02/09/21at 17:49; Start 02/09/21 at 16:33; Stop 02/09/21 at 16:33; Status DC Cellulose (Surgicel Hemostat 4x8) 1 each STK-MED ONCE .ROUTE Last administered on 02/09/21at 18:38; Start 02/09/21 at 16:33; Stop 02/09/21 at 16:33; Status DC Thrombin 20,000 unit STK-MED ONCE TP Last administered on 02/09/21at 17:49; Start 02/09/21 at 16:33; Stop 02/09/21 at 16:33; Status DC Fentanyl Citrate (Fentanyl 2ml Vial) 75 mcg 1X ONCE IVP Last administered on 02/09/21at 16:45; Start 02/09/21 at 16:45; Stop 02/09/21 at 16:47; Status DC Propofol (Diprivan) 200 mg 1X ONCE IV ; Start 02/09/21 at 17:15; Stop 02/09/21 at 17:16; Status DC Lidocaine HCl (Lidocaine HCl 2% Abboject) 100 mg 1X ONCE IV ; Start 02/09/21 at 17:15; Stop 02/09/21 at 17:16; Status DC Rocuronium [place] (Zemuron) 50 mg 1X ONCE IV ; Start 02/09/21 at 17:15; Stop 02/09/21 at 17:16; Status DC Propofol 100 ml @ 0 mls/hr CONT PRN PRN IV SEDATION; Start 02/09/21 at 17:15; Stop 02/10/21 at 05:14; Status DC Cefazolin Sodium (Ancef) 1 gm STK-MED ONCE IVP ; Start 02/09/21 at 17:28; Stop 02/09/21 at 17:28; Status DC Fentanyl Citrate (Fentanyl 2ml Vial) 100 mcg STK-MED ONCE .ROUTE ; Start 02/09/21 at 17:43; Stop 02/09/21 at 17:43; Status DC Rocuronium [place] (Zemuron) 100 mg STK-MED ONCE .ROUTE ; Start 02/09/21 at 17:58; Stop 02/09/21 at 17:59; Status DC Vecuronium [place] (Norcuron Bolus) 10 mg STK-MED ONCE IV ; Start 02/09/21 at 18:49; Stop 02/09/21 at 18:50; Status DC Sodium Chloride (SODIUM CHLORIDE 20ml) 20 ml STK-MED ONCE IJ ; Start 02/09/21 at 18:50; Stop 02/09/21 at 18:50; Status DC Sevoflurane (Ultane) 90 ml STK-MED ONCE IH ; Start 02/09/21 at 19:20; Stop at 19:21; Status DC Fentanyl Citrate 30 ml @ 2.5 mls/hr CONT PRN IV SEE PROTOCOL Last administered on 02/09/21at 23:40; Start 02/09/21 at 23:15; Stop 02/10/21 at 04:43; Status DC Fentanyl Citrate 55 ml @ 0 mls/hr CONT PRN IV SEE I/O Last administered on 02/16/21at 11:11; Start 02/10/21 at 05:00 Potassium Chloride/Dextrose/ Sod Cl 1,000 ml @ 80 mls/hr [id number] IV ; Start 02/10/21 at 09:00; Stop 02/10/21 at 13:21; Status DC Pantoprazole Sodium (PROTONIX VIAL for IV PUSH) 40 mg DAILYAC IVP Last administered on 02/17/21at 08:12; Start 02/10/21 at 09:00 Lidocaine HCl (Buffered Lidocaine 1%) 3 ml STK-MED ONCE .ROUTE ; Start 02/10/21 at 13:18; Stop 02/10/21 at 13:18; Status DC Sodium Chloride 1,000 ml @ 80 mls/hr [id number] IV Last administered on 02/12/21at 03:00; Start 02/10/21 at 13:30; Stop 02/12/21 at 15:36; Status DC Lidocaine HCl (Buffered Lidocaine 1%) 6 ml 1X ONCE INJ Last administered on 02/10/21at 13:57; Start 02/10/21 at 13:45; Stop 02/10/21 at 13:46; Status DC Potassium Chloride/Water 100 ml @ 100 mls/hr Q1H IV Last administered on 02/11/21at 10:07; Start 02/11/21 at 08:00; Stop 02/11/21 at 09:59; Status DC Piperacillin Sod/ Tazobactam Sod 3.375 gm/Sodium Chloride 50 ml @ 100 mls/hr Q6HRS IV Last administered on 02/17/21at 05:50; Start 02/11/21 at 09:00 Info (Tpn Per Pharmacy) 1 each PRN DAILY PRN MC SEE COMMENTS Last administered on 02/16/21at 09:56; Start 02/11/21 at 11:15 Sodium Chloride 90 meq/Potassium Chloride 50 meq/ Potassium Phosphate 13.6 mmol/Magnesium Sulfate 10 meq/ Calcium Gluconate 10 meq/ Multivitamins 5 ml/Zinc/Copper/ Manganese/ Selenium 1 ml/ Total Parenteral Nutrition/Amino Acids/Dextrose 1,512 ml @ 63 mls/hr TPN CONT IV Last administered on 02/11/21at 22:32; Start 02/11/21 at 22:00; Stop 02/12/21 at 21:59; Status DC Furosemide (Lasix) 20 mg 1X ONCE IVP Last administered on 02/11/21at 15:11; Start 02/11/21 at 15:30; Stop 02/11/21 at 15:31; Status DC Furosemide (Lasix) 20 mg 1X ONCE IVP Last administered on 02/11/21at 17:00; Start 02/11/21 at 17:00; Stop 02/11/21 at 17:01; Status DC Midazolam HCl 100 ml @ 1 mls/hr CONT PRN IV SEE PROTOCOL Last administered on 02/13/21at 20:58; Start 02/11/21 at 19:30 Acetaminophen (Tylenol Supp) 650 mg PRN Q6HRS PRN LA MILD PAIN / TEMP > 100.3'F; Start 02/11/21 at 21:15 Sodium Chloride 80 meq/Potassium Chloride 50 meq/ Potassium Phosphate 13.6 mmol/Magnesium Sulfate 6 meq/ Calcium Gluconate 10 meq/ Multivitamins 5 ml/Zinc /Copper/ Manganese/ Selenium 1 ml/ Total Parenteral Nutrition/Amino Acids/Dextrose 1,512 ml @ 63 mls/hr TPN CONT IV Last administered on 02/12/21at 22:09; Start 02/12/21 at 22:00; Stop 02/13/21 at 21:59; Status DC Furosemide (Lasix) 40 mg 1X ONCE IVP Last administered on 02/12/21at 12:44; Start 02/12/21 at 12:30; Stop 02/12/21 at 12:31; Status DC Insulin Human Lispro (HumaLOG) 0-5 UNITS Q6HRS SQ Last administered on 02/17/21at 05:50; Start 02/12/21 at 12:00 Dextrose (Dextrose 50%-Water Syringe) 12.5 gm PRN Q15MIN PRN IV SEE COMMENTS; Start 02/12/21 at 12:15 Clonidine HCl (Catapres Tts-3) 1 patch WEEKLY TD Last administered on 02/13/21at 11:47; Start 02/13/21 at 11:00 Sodium Chloride 80 meq/Potassium Chloride 50 meq/ Potassium Phosphate 13.6 mmol/Magnesium Sulfate 6 meq/ Calcium Gluconate 10 meq/ Multivitamins 5 ml/Zinc/Copper/ Manganese/ Selenium 1 ml/ Total Parenteral Nutrition/Amino Acids/Dextrose 1,512 ml @ 63 mls/hr TPN CONT IV Last administered on 02/13/21at 21:42; Start 02/13/21 at 22:00; Stop 02/14/21 at 21:59; Status DC Potassium Acetate 50 meq/Potassium Phosphate 13.6 mmol/Magnesium Sulfate 6 meq/ Calcium Gluconate 10 meq/ Multivitamins 5 ml/Zinc/Copper/ Manganese/ Selenium 1 ml/ Total Parenteral Nutrition/Amino Acids/Dextrose 1,512 ml @ 63 mls/hr TPN CONT IV Last administered on 02/14/21at 21:59; Start 02/14/21 at 22:00; Stop 02/15/21 at 21:59; Status DC Insulin Glargine (Lantus Syringe) 10 unit QHS SQ Last administered on 02/15/21at 22:11; Start 02/14/21 at 21:00; Stop 02/16/21 at 12:42; Status DC Hydralazine HCl (Apresoline Inj) 10 mg PRN Q4HRS PRN IVP ELEVATED BP, SEE COMMENTS Last administered on 02/17/21at 08:13; Start 02/14/21 at 16:00 Potassium Acetate 50 meq/Potassium Phosphate 13.6 mmol/Magnesium Sulfate 6 meq/ Calcium Gluconate 10 meq/ Multivitamins 5 ml/Zinc/Copper/ Manganese/ Selenium 1 ml/ Total Parenteral Nutrition/Amino Acids/Dextrose 1,512 ml @ 63 mls/hr TPN CONT IV Last administered on 02/15/21at 22:13; Start 02/15/21 at 22:00; Stop 02/16/21 at 21:59; Status DC Dexmedetomidine HCl 400 mcg/ Sodium Chloride 100 ml @ 0 mls/hr CONT PRN IV PER PROTOCOL Last administered on 02/17/21at 07:31; Start 02/15/21 at 14:15 Sodium Chloride 500 ml @ 500 mls/hr 1X PRN PRN IV SEE COMMENTS; Start 02/15/21 at 14:15 Atropine Sulfate (ATROPINE 0.5mg SYRINGE) 0.5 mg PRN Q5MIN PRN IV SEE COMMENTS; Start 02/15/21 at 14:15 Potassium Acetate 50 meq/Potassium Phosphate 13.6 mmol/Magnesium Sulfate 6 meq/ Calcium Gluconate 10 meq/ Multivitamins 5 ml/Zinc/Copper/ Manganese/ Selenium 1 ml/ Total Parenteral Nutrition/Amino Acids/Dextrose 1,512 ml @ 63 mls/hr TPN CONT IV Last administered on 02/16/21at 22:59; Start 02/16/21 at 22:00; Stop 02/17/21 at 21:59 Insulin Glargine (Lantus Syringe) 14 unit QHS SQ Last administered on 02/16/21at 21:14; Start 02/16/21 at 21:00 Vitals/I & O Vital Sign - Last 24 Hours 02/16/21 02/16/21 02/16/21 02/16/21 09:19 10:00 10:15 10:30 Pulse 60 60 62 Resp 28 B/P (MAP) 199/107 (137) 188/98 (128) 184/82 (116) Pulse Ox 98 97 O2 Delivery Ventilator Ventilator 02/16/21 02/16/21 02/16/21 02/16/21 10:45 11:00 11:11 11:26 Pulse 57 62 Resp 24 21 B/P (MAP) 167/80 (109) 165/89 (114) Pulse Ox 96 97 96 O2 Delivery Ventilator Ventilator Ventilator 02/16/21 02/16/21 02/16/21 02/16/21 11:57 12:00 12:00 12:00 Temp 98.8 98.8 Pulse 77 Resp 29 26 B/P (MAP) 168/93 (118) Pulse Ox 95 96 O2 Delivery Ventilator Ventilator Mechanical Ventilator 02/16/21 02/16/21 02/16/21 02/16/21 12:06 12:15 12:30 12:45 Pulse 67 96 66 64 Resp 36 24 B/P (MAP) 173/82 224/105 (144) 162/81 (108) 150/84 (106) Pulse Ox 96 97 O2 Delivery Ventilator Ventilator 02/16/21 02/16/21 02/16/21 02/16/21 13:00 14:00 15:00 15:43 Pulse 63 69 64 Resp 26 20 18 B/P (MAP) 154/67 (96) 137/67 (90) 153/89 (110) Pulse Ox 95 94 96 97 O2 Delivery Ventilator Ventilator Ventilator Ventilator 02/16/21 02/16/21 02/16/21 02/16/21 15:43 16:00 16:59 17:00 Temp 97.8 97.8 Pulse 74 68 Resp 26 27 B/P (MAP) 133/84 (100) 148/85 (106) Pulse Ox 94 94 96 O2 Delivery Mechanical Ventilator Ventilator Ventilator Ventilator 02/16/21 02/16/21 02/16/21 02/16/21 18:00 19:00 20:00 20:00 Temp 98.1 98.1 Pulse 69 59 60 Resp 20 18 20 B/P (MAP) 151/91 (111) 151/93 (112) 152/91 (111) Pulse Ox 98 98 99 O2 Delivery Ventilator Ventilator Mechanical Ventilator Ventilator 02/16/21 02/16/21 02/16/21 02/16/21 20:28 21:00 22:00 23:00 Pulse 53 52 50 Resp 18 17 18 B/P (MAP) 155/94 (114) 157/95 (115) 140/89 (106) Pulse Ox 99 99 99 99 O2 Delivery Ventilator Ventilator Ventilator Ventilator 02/16/21 02/16/21 02/17/21 02/17/21 23:59 23:59 00:19 01:00 Temp 98.1 98.1 Pulse 51 62 Resp 17 18 B/P (MAP) 138/71 (93) 132/82 (99) Pulse Ox 98 99 99 O2 Delivery Mechanical Ventilator Ventilator Ventilator Ventilator 02/17/21 02/17/21 02/17/21 02/17/21 02:00 03:00 03:03 04:00 Pulse 58 47 Resp 18 17 B/P (MAP) 136/88 (104) 159/99 (119) Pulse Ox 99 99 99 O2 Delivery Ventilator Ventilator Ventilator Mechanical Ventilator 02/17/21 02/17/21 02/17/21 02/17/21 04:00 05:00 06:00 06:09 Temp 97.4 97.4 Pulse 47 48 55 Resp 16 22 22 B/P (MAP) 150/94 (112) 149/96 (113) 134/88 (103) Pulse Ox 100 99 99 99 O2 Delivery Ventilator Ventilator Ventilator Ventilator 02/17/21 02/17/21 07:42 08:13 Pulse 49 B/P (MAP) 140/94 Pulse Ox 100 O2 Delivery Ventilator Intake and Output 02/16/21 02/16/21 02/17/21 15:00 23:00 07:00 Intake Total 70 ml 1336.47 ml 2313 ml Output Total 1285 ml 800 ml 615 ml Balance -1215 ml 536.47 ml 1698 ml Justicifation of Admission Dx: Justifications for Admission: Justification of Admission Dx: Yes Acute Hemorrhagic Stroke: Acute Hemorrhagic Stroke EITAN LORENZO MD Feb 17, 2021 09:05
--- NOTE | 2021-02-17 09:28 | PDOC ---
PULMONARY PROGRESS NOTES DATE: 02/17/21 TIME: 09:28 Subjective Remains on vent support does not tolerate reduction of sedation no overnight events Vitals Vital Signs Date Time Temp Pulse Resp B/P (MAP) Pulse Ox O2 Delivery O2 Flow Rate FiO2 02/17/21 08:13 49 140/94 02/17/21 07:42 100 Ventilator 02/17/21 06:00 22 02/17/21 04:00 97.4 97.4 Comments ros unable to obtain sedated on vent Lungs: Clear, Crackles Cardiovascular: S1, S2 Abdomen: Soft, Non-tender Extremities: No Edema Skin: Warm Labs Laboratory Tests Test 02/15/21 12:02 02/15/21 17:21 02/16/21 00:16 02/16/21 05:00 Glucose (Fingerstick) 275 mg/dL (70-99) 318 mg/dL (70-99) 259 mg/dL (70-99) White Blood Count 8.7 x10^3/uL (4.0-11.0) Red Blood Count 4.06 x10^6/uL (4.30-5.70) Hemoglobin 12.1 g/dL (13.0-17.5) Hematocrit 37.4 % (39.0-53.0) Mean Corpuscular Volume 92 fL (79-100) Mean Corpuscular Hemoglobin 30 pg (25-35) Mean Corpuscular Hemoglobin Concent 32 g/dL (31-37) Red Cell Distribution Width 14.2 % (11.5-14.5) Platelet Count 245 x10^3/uL (140-400) Neutrophils (%) (Auto) 77 % (31-73) Lymphocytes (%) (Auto) 12 % (24-48) Monocytes (%) (Auto) 8 % (0-9) Eosinophils (%) (Auto) 2 % (0-3) Basophils (%) (Auto) 1 % (0-3) Neutrophils # (Auto) 6.8 x10^3/uL (1.8-7.7) Lymphocytes # (Auto) 1.1 x10^3/uL (1.0-4.8) Monocytes # (Auto) 0.7 x10^3/uL (0.0-1.1) Eosinophils # (Auto) 0.1 x10^3/uL (0.0-0.7) Basophils # (Auto) 0.1 x10^3/uL (0.0-0.2) Sodium Level 149 mmol/L (136-145) Potassium Level 4.3 mmol/L (3.5-5.1) Chloride Level 114 mmol/L (98-107) Carbon Dioxide Level 23 mmol/L (21-32) Anion Gap 12 (6-14) Blood Urea Nitrogen 27 mg/dL (8-26) Creatinine 0.9 mg/dL (0.7-1.3) Estimated GFR (Cockcroft-Gault) 104.2 Glucose Level 257 mg/dL (70-99) Calcium Level 9.5 mg/dL (8.5-10.1) Magnesium Level 2.3 mg/dL (1.8-2.4) Test 02/16/21 05:37 02/16/21 08:10 02/16/21 12:10 02/16/21 17:33 Glucose (Fingerstick) 231 mg/dL (70-99) 273 mg/dL (70-99) 286 mg/dL (70-99) O2 Saturation 98 % (92-99) Arterial Blood pH 7.42 (7.35-7.45) Arterial Blood pCO2 at Patient Temp 34 mmHg (35-46) Arterial Blood pO2 at Patient Temp 120 mmHg (65-108) Arterial Blood HCO3 21 mmol/L (21-28) Arterial Blood Base Excess -3 mmol/L (-3-3) FiO2 50 Test 02/16/21 21:11 02/16/21 23:47 02/17/21 05:00 02/17/21 05:09 Glucose (Fingerstick) 258 mg/dL (70-99) 248 mg/dL (70-99) 257 mg/dL (70-99) White Blood Count 7.5 x10^3/uL (4.0-11.0) Red Blood Count 3.93 x10^6/uL (4.30-5.70) Hemoglobin 11.8 g/dL (13.0-17.5) Hematocrit 36.3 % (39.0-53.0) Mean Corpuscular Volume 92 fL (79-100) Mean Corpuscular Hemoglobin 30 pg (25-35) Mean Corpuscular Hemoglobin Concent 32 g/dL (31-37) Red Cell Distribution Width 13.9 % (11.5-14.5) Platelet Count 231 x10^3/uL (140-400) Sodium Level 150 mmol/L (136-145) Potassium Level 4.2 mmol/L (3.5-5.1) Chloride Level 113 mmol/L (98-107) Carbon Dioxide Level 27 mmol/L (21-32) Anion Gap 10 (6-14) Blood Urea Nitrogen 27 mg/dL (8-26) Creatinine 0.9 mg/dL (0.7-1.3) Estimated GFR (Cockcroft-Gault) 104.2 Glucose Level 275 mg/dL (70-99) Calcium Level 9.5 mg/dL (8.5-10.1) Phosphorus Level 3.8 mg/dL (2.6-4.7) Magnesium Level 2.2 mg/dL (1.8-2.4) Test 02/17/21 08:00 O2 Saturation 97 % (92-99) Arterial Blood pH 7.40 (7.35-7.45) Arterial Blood pCO2 at Patient Temp 39 mmHg (35-46) Arterial Blood pO2 at Patient Temp 96 mmHg (65-108) Arterial Blood HCO3 24 mmol/L (21-28) Arterial Blood Base Excess -1 mmol/L (-3-3) FiO2 40%+6 Laboratory Tests Test 02/16/21 12:10 02/16/21 17:33 02/16/21 21:11 02/16/21 23:47 Glucose (Fingerstick) 273 mg/dL (70-99) 286 mg/dL (70-99) 258 mg/dL (70-99) 248 mg/dL (70-99) Test 02/17/21 05:00 02/17/21 05:09 02/17/21 08:00 White Blood Count 7.5 x10^3/uL (4.0-11.0) Red Blood Count 3.93 x10^6/uL (4.30-5.70) Hemoglobin 11.8 g/dL (13.0-17.5) Hematocrit 36.3 % (39.0-53.0) Mean Corpuscular Volume 92 fL (79-100) Mean Corpuscular Hemoglobin 30 pg (25-35) Mean Corpuscular Hemoglobin Concent 32 g/dL (31-37) Red Cell Distribution Width 13.9 % (11.5-14.5) Platelet Count 231 x10^3/uL (140-400) Sodium Level 150 mmol/L (136-145) Potassium Level 4.2 mmol/L (3.5-5.1) Chloride Level 113 mmol/L (98-107) Carbon Dioxide Level 27 mmol/L (21-32) Anion Gap 10 (6-14) Blood Urea Nitrogen 27 mg/dL (8-26) Creatinine 0.9 mg/dL (0.7-1.3) Estimated GFR (Cockcroft-Gault) 104.2 Glucose Level 275 mg/dL (70-99) Calcium Level 9.5 mg/dL (8.5-10.1) Phosphorus Level 3.8 mg/dL (2.6-4.7) Magnesium Level 2.2 mg/dL (1.8-2.4) Glucose (Fingerstick) 257 mg/dL (70-99) O2 Saturation 97 % (92-99) Arterial Blood pH 7.40 (7.35-7.45) Arterial Blood pCO2 at Patient Temp 39 mmHg (35-46) Arterial Blood pO2 at Patient Temp 96 mmHg (65-108) Arterial Blood HCO3 24 mmol/L (21-28) Arterial Blood Base Excess -1 mmol/L (-3-3) FiO2 40%+6 Comments CXR 02/17/21 IMPRESSION: 1. Stable life support devices. 2. Stable bibasilar opacities. 3. Stable small left pleural effusion. IMPRESSION: Chest x-ray 02/13 1. Stable support lines and tubes. 2. Severe right upper lobe predominant bullous emphysema. 3. Stable right perihilar linear atelectasis or infiltrate superimposed on diffuse interstitial prominence and small pleural effusions. Impression . IMPRESSION: 1. Acute hypoxic respiratory failure multifactorial 2. Abnormal x-ray 3. Long history of tobaccoism. CT angiogram showed bullous emphysema in the upper lobes. 3. Acute kidney injury. 4. Leukocytosi 5. s/p Right occipital craniotomy with evacuation of intracerebral hematoma. 6. Encephalopathy, multifactorial 7. Uncontrolled hypertension CT head 02/13, discussed with Dr. Louie IMPRESSION: 1. Expected interval evolution of a right posterior temporal/occipital intraparenchymal hematoma status post decompressive craniotomy. 2. Expected evolution of a small amount of subarachnoid and intraventricular clot. DATE OF SURGERY: 02/09/2021 PREOPERATIVE DIAGNOSIS: Right posterior temporoparietal occipital intracerebral hemorrhage with neurologic deterioration. POSTOPERATIVE DIAGNOSIS: Right posterior temporoparietal occipital intracerebral hemorrhage with neurologic deterioration. OPERATION PERFORMED: Right occipital craniotomy with evacuation of intracerebral hematoma. Plan . Updated 02/17/21 Continue current vent support A/C mode 16/500/6/40% Follow CXR/ABG - reviewed Pt. does not tolerate reduced/off sedation, will need trach for further weaning Follow ID recs for ABX on zosyn Follow neurosurgery recs-- POD#9 S/P Right occipital craniotomy with evacuation of intracerebral hematoma TPN for nutritional support DVT/GI PPX D/W RN and RT Social work for DC planning Updated 02/16 Patient does not do well off sedation, becomes asynchronous with vent We will discuss with surgery, I recommend tracheotomy We will continue antibiotics per ID Follow neurology and neurosurgery input DVT GI prophylax Updated 02/15, blood pressure better control Antibiotics per ID When sedation is off, patient not in sync with the ventilator Suspect he may require tracheotomy Follow neurology and neurosurgery input Discussed with MANJULA FATIMA MD Feb 17, 2021 09:28
[2021-02-17] MEDS: TPN PER PHARMACY MC PRN (09:39)
--- NOTE | 2021-02-17 09:40 | NUR ---
Pharmacy TPN Dosing Note S: COOPER CHAVEZ is a 61 year old M Currently receiving Central Continuous TPN started 02/11/21 B:Pertinent PMH: ILEUS, UNABLE TO START TUBE FEEDS Height: 6 feet, 2 inches Weight: 114.9 kg Current diet: NPO LABS: Sodium: 150 Potassium: 4.2 Chloride: 113 Calcium: 9.5 Corrected Calcium: 9.98 Magnesium: 2.2 CO2: 23 SCr: 0.9 Glucose: 275 Albumin: 3.4 AST: 17 ALT: 21 TPN FORMULA: TPN TYPE: Central Continuous AMINO ACIDS: 60 gm DEXTROSE: 195 gm LIPIDS: 0 gm SODIUM CHLORIDE: - mEq SODIUM ACETATE: - mEq SODIUM PHOSPHATE: - mmol POTASSIUM CHLORIDE: - mEq POTASSIUM ACETATE: 50 mEq POTASSIUM PHOSPHATE: 13.6 mmol MAGNESIUM: 6 mEq CALCIUM: 10 mEq INSULIN: - units MULTIPLE VITAMIN: 5 ml TRACE ELEMENTS: 1 ml ml(s) TPN PLAN: Na= 150, continue without sodium On propofol - continue TPN with no lipids. Continue same TPN. BMP tomorrow. R: Continue TPN as ordered Will monitor electrolytes, glucose, and tolerance to TPN. BRITTNEY CHAKRABORTY, [facility], 02/17/21 1401
--- NOTE | 2021-02-17 10:28 | PDOC ---
Renal-Progress Notes Subjective Notes Notes REMAINS ON THE VENT History of Present Illness Hx of present illness NO ACUTE CHANGES Vitals Vitals Vital Signs Date Time Temp Pulse Resp B/P (MAP) Pulse Ox O2 Delivery O2 Flow Rate FiO2 02/17/21 09:30 55 22 111/78 (89) 99 Ventilator 02/17/21 08:00 97.6 97.6 Weight Weight [ ] I.O. Intake and Output Intake and Output 02/17/21 07:00 Intake Total 3719.47 ml Output Total 2700 ml Balance 1019.47 ml Intake IV Total 3719.47 ml Output Urine Total 2600 ml Gastric Drainage Total 100 ml Labs Labs Laboratory Tests Test 02/16/21 12:10 02/16/21 17:33 02/16/21 21:11 02/16/21 23:47 Glucose (Fingerstick) 273 mg/dL (70-99) 286 mg/dL (70-99) 258 mg/dL (70-99) 248 mg/dL (70-99) Test 02/17/21 05:00 02/17/21 05:09 02/17/21 08:00 White Blood Count 7.5 x10^3/uL (4.0-11.0) Red Blood Count 3.93 x10^6/uL (4.30-5.70) Hemoglobin 11.8 g/dL (13.0-17.5) Hematocrit 36.3 % (39.0-53.0) Mean Corpuscular Volume 92 fL (79-100) Mean Corpuscular Hemoglobin 30 pg (25-35) Mean Corpuscular Hemoglobin Concent 32 g/dL (31-37) Red Cell Distribution Width 13.9 % (11.5-14.5) Platelet Count 231 x10^3/uL (140-400) Sodium Level 150 mmol/L (136-145) Potassium Level 4.2 mmol/L (3.5-5.1) Chloride Level 113 mmol/L (98-107) Carbon Dioxide Level 27 mmol/L (21-32) Anion Gap 10 (6-14) Blood Urea Nitrogen 27 mg/dL (8-26) Creatinine 0.9 mg/dL (0.7-1.3) Estimated GFR (Cockcroft-Gault) 104.2 Glucose Level 275 mg/dL (70-99) Calcium Level 9.5 mg/dL (8.5-10.1) Phosphorus Level 3.8 mg/dL (2.6-4.7) Magnesium Level 2.2 mg/dL (1.8-2.4) Glucose (Fingerstick) 257 mg/dL (70-99) O2 Saturation 97 % (92-99) Arterial Blood pH 7.40 (7.35-7.45) Arterial Blood pCO2 at Patient Temp 39 mmHg (35-46) Arterial Blood pO2 at Patient Temp 96 mmHg (65-108) Arterial Blood HCO3 24 mmol/L (21-28) Arterial Blood Base Excess -1 mmol/L (-3-3) FiO2 40%+6 Micro Micro Microbiology 02/11/21 Blood Culture - Final, Complete NO GROWTH AFTER 5 DAYS 02/11/21 Gram Stain Evaluation - Final, Complete 02/11/21 Respiratory Culture - Final, Complete Review of Systems Constitutional: yes: unresponsive Physical Exam General Appearance: no apparent distress Skin: warm Heart: S1S2 Abdomen: soft, distension, other (NO BS) Extremities: pulses present Neurology: other (SEDATED) Assessment Assessment IMP MARVIN - RESOLVED HYPOKALEMIA-CORRECTED HYPERNATREMIA ACUTE RESP FAILURE PROB ASP PNA ICB-S/P CRANIOTOMY AND HEMATOMA EVACATION ACUTE RESP FAILURE HX OF COPD ILEUS LABILE HTN PLAN CONTROL BP GOAL SBP LESS THAN 140 CARDENE GTT NEEDED PRN HYDRALAZINE CONT CATAPRESS PATCH CONT TPN-CHANGES REPLACE ELECTROLYTES NEEDED START FREE WATER ANTIBIOTICS VENT SUPPORT NOT MUCH OVERALL IMPROVEMENT WILL FOLLOW ESTEBAN PERKINS MD Feb 17, 2021 10:28
[2021-02-17] MEDS: IV DEXTROSE 5% 1,000 ML IV SCH ×2 (11:07→23:50)
--- NOTE | 2021-02-17 12:44 | PDOC ---
PROGRESS NOTES Date of Service DATE: 02/17/21 TIME: 12:41 Subjective Subjective POD#9 S/P Right occipital craniotomy with evacuation of intracerebral hematoma Agitated, difficult to wean sedation. Becomes tachypneic without sedation per RN Objective Objective Vital Signs Date Time Temp Pulse Resp B/P (MAP) Pulse Ox O2 Delivery O2 Flow Rate FiO2 02/17/21 12:00 Mechanical Ventilator 02/17/21 12:00 97.5 51 18 121/78 (92) 100 97.5 Intake and Output 02/17/21 07:00 Intake Total 3719.47 ml Output Total 2700 ml Balance 1019.47 ml Intake IV Total 3719.47 ml Output Urine Total 2600 ml Gastric Drainage Total 100 ml Physical Exam General: Other (on vent with sedation) Skin: Other (dressing C,D,I) Plan Plan of Care Follow up CT next week continue to wean sedation as tolerated BP control Comment Review of Relevant I have reviewed the following items neela (where applicable) has been applied. Labs Laboratory Tests Test 02/15/21 17:21 02/16/21 00:16 02/16/21 05:00 02/16/21 05:37 Glucose (Fingerstick) 318 mg/dL (70-99) 259 mg/dL (70-99) 231 mg/dL (70-99) White Blood Count 8.7 x10^3/uL (4.0-11.0) Red Blood Count 4.06 x10^6/uL (4.30-5.70) Hemoglobin 12.1 g/dL (13.0-17.5) Hematocrit 37.4 % (39.0-53.0) Mean Corpuscular Volume 92 fL (79-100) Mean Corpuscular Hemoglobin 30 pg (25-35) Mean Corpuscular Hemoglobin Concent 32 g/dL (31-37) Red Cell Distribution Width 14.2 % (11.5-14.5) Platelet Count 245 x10^3/uL (140-400) Neutrophils (%) (Auto) 77 % (31-73) Lymphocytes (%) (Auto) 12 % (24-48) Monocytes (%) (Auto) 8 % (0-9) Eosinophils (%) (Auto) 2 % (0-3) Basophils (%) (Auto) 1 % (0-3) Neutrophils # (Auto) 6.8 x10^3/uL (1.8-7.7) Lymphocytes # (Auto) 1.1 x10^3/uL (1.0-4.8) Monocytes # (Auto) 0.7 x10^3/uL (0.0-1.1) Eosinophils # (Auto) 0.1 x10^3/uL (0.0-0.7) Basophils # (Auto) 0.1 x10^3/uL (0.0-0.2) Sodium Level 149 mmol/L (136-145) Potassium Level 4.3 mmol/L (3.5-5.1) Chloride Level 114 mmol/L (98-107) Carbon Dioxide Level 23 mmol/L (21-32) Anion Gap 12 (6-14) Blood Urea Nitrogen 27 mg/dL (8-26) Creatinine 0.9 mg/dL (0.7-1.3) Estimated GFR (Cockcroft-Gault) 104.2 Glucose Level 257 mg/dL (70-99) Calcium Level 9.5 mg/dL (8.5-10.1) Magnesium Level 2.3 mg/dL (1.8-2.4) Test 02/16/21 08:10 02/16/21 12:10 02/16/21 17:33 02/16/21 21:11 O2 Saturation 98 % (92-99) Arterial Blood pH 7.42 (7.35-7.45) Arterial Blood pCO2 at Patient Temp 34 mmHg (35-46) Arterial Blood pO2 at Patient Temp 120 mmHg (65-108) Arterial Blood HCO3 21 mmol/L (21-28) Arterial Blood Base Excess -3 mmol/L (-3-3) FiO2 50 Glucose (Fingerstick) 273 mg/dL (70-99) 286 mg/dL (70-99) 258 mg/dL (70-99) Test 02/16/21 23:47 02/17/21 05:00 02/17/21 05:09 02/17/21 08:00 Glucose (Fingerstick) 248 mg/dL (70-99) 257 mg/dL (70-99) White Blood Count 7.5 x10^3/uL (4.0-11.0) Red Blood Count 3.93 x10^6/uL (4.30-5.70) Hemoglobin 11.8 g/dL (13.0-17.5) Hematocrit 36.3 % (39.0-53.0) Mean Corpuscular Volume 92 fL (79-100) Mean Corpuscular Hemoglobin 30 pg (25-35) Mean Corpuscular Hemoglobin Concent 32 g/dL (31-37) Red Cell Distribution Width 13.9 % (11.5-14.5) Platelet Count 231 x10^3/uL (140-400) Sodium Level 150 mmol/L (136-145) Potassium Level 4.2 mmol/L (3.5-5.1) Chloride Level 113 mmol/L (98-107) Carbon Dioxide Level 27 mmol/L (21-32) Anion Gap 10 (6-14) Blood Urea Nitrogen 27 mg/dL (8-26) Creatinine 0.9 mg/dL (0.7-1.3) Estimated GFR (Cockcroft-Gault) 104.2 Glucose Level 275 mg/dL (70-99) Calcium Level 9.5 mg/dL (8.5-10.1) Phosphorus Level 3.8 mg/dL (2.6-4.7) Magnesium Level 2.2 mg/dL (1.8-2.4) O2 Saturation 97 % (92-99) Arterial Blood pH 7.40 (7.35-7.45) Arterial Blood pCO2 at Patient Temp 39 mmHg (35-46) Arterial Blood pO2 at Patient Temp 96 mmHg (65-108) Arterial Blood HCO3 24 mmol/L (21-28) Arterial Blood Base Excess -1 mmol/L (-3-3) FiO2 40%+6 Test 02/17/21 12:24 Glucose (Fingerstick) 305 mg/dL (70-99) Laboratory Tests Test 02/16/21 17:33 02/16/21 21:11 02/16/21 23:47 02/17/21 05:00 Glucose (Fingerstick) 286 mg/dL (70-99) 258 mg/dL (70-99) 248 mg/dL (70-99) White Blood Count 7.5 x10^3/uL (4.0-11.0) Red Blood Count 3.93 x10^6/uL (4.30-5.70) Hemoglobin 11.8 g/dL (13.0-17.5) Hematocrit 36.3 % (39.0-53.0) Mean Corpuscular Volume 92 fL (79-100) Mean Corpuscular Hemoglobin 30 pg (25-35) Mean Corpuscular Hemoglobin Concent 32 g/dL (31-37) Red Cell Distribution Width 13.9 % (11.5-14.5) Platelet Count 231 x10^3/uL (140-400) Sodium Level 150 mmol/L (136-145) Potassium Level 4.2 mmol/L (3.5-5.1) Chloride Level 113 mmol/L (98-107) Carbon Dioxide Level 27 mmol/L (21-32) Anion Gap 10 (6-14) Blood Urea Nitrogen 27 mg/dL (8-26) Creatinine 0.9 mg/dL (0.7-1.3) Estimated GFR (Cockcroft-Gault) 104.2 Glucose Level 275 mg/dL (70-99) Calcium Level 9.5 mg/dL (8.5-10.1) Phosphorus Level 3.8 mg/dL (2.6-4.7) Magnesium Level 2.2 mg/dL (1.8-2.4) Test 02/17/21 05:09 02/17/21 08:00 02/17/21 12:24 Glucose (Fingerstick) 257 mg/dL (70-99) 305 mg/dL (70-99) O2 Saturation 97 % (92-99) Arterial Blood pH 7.40 (7.35-7.45) Arterial Blood pCO2 at Patient Temp 39 mmHg (35-46) Arterial Blood pO2 at Patient Temp 96 mmHg (65-108) Arterial Blood HCO3 24 mmol/L (21-28) Arterial Blood Base Excess -1 mmol/L (-3-3) FiO2 40%+6 Microbiology 02/11/21 Blood Culture - Final, Complete NO GROWTH AFTER 5 DAYS 02/11/21 Gram Stain Evaluation - Final, Complete 02/11/21 Respiratory Culture - Final, Complete Medications Current Medications Nicardipine HCl 50 mg/Sodium Chloride 250 ml @ 12.5 mls/hr CONT PRN IV SEE I/O RECORD Last administered on 02/16/21at 14:00; Start 02/09/21 at 06:15 Labetalol HCl (Normodyne Iv Push) 10 mg PRN Q2HR PRN IVP HYPERTENSION Last administered on 02/15/21at 10:49; Start 02/09/21 at 06:15 Lorazepam (Ativan Inj) 2 mg 1X ONCE IVP Last administered on 02/09/21at 10:54; Start 02/09/21 at 10:45; Stop 02/09/21 at 10:46; Status DC Lorazepam (Ativan Inj) 2 mg 1X ONCE IVP Last administered on 02/09/21at 11:00; Start 02/09/21 at 11:00; Stop 02/09/21 at 11:01; Status DC Fentanyl Citrate (Fentanyl 2ml Vial) 25 mcg PRN Q2HR PRN IVP MODERATE TO SEVERE PAIN Last administered on 02/09/21at 13:37; Start 02/09/21 at 13:30 Info (Review Meds) 1 ea PRN 1X PRN MC SEE COMMENTS; Start 02/09/21 at 15:00 Acetaminophen (Tylenol Supp) 650 mg PRN Q6HRS PRN NC FEVER > 100.5'F or 38'C; Start 02/09/21 at 15:00; Stop 02/11/21 at 21:12; Status DC Albuterol Sulfate (Ventolin Neb Soln) 2.5 mg PRN Q4HRS PRN NEB SHORTNESS OF BREATH; Start 02/09/21 at 15:15 Iohexol (Omnipaque 350 Mg/ml) 75 ml 1X ONCE IV Last administered on 02/09/21at 15:52; Start 02/09/21 at 15:30; Stop 02/09/21 at 15:35; Status DC Iohexol (Omnipaque 350 Mg/ml) 100 ml STK-MED ONCE .ROUTE ; Start 02/09/21 at 15:26; Stop 02/09/21 at 15:27; Status DC Info (CONTRAST GIVEN -- Rx MONITORING) 1 each PRN DAILY PRN MC SEE COMMENTS; Start 02/09/21 at 15:45; Stop 02/11/21 at 15:44; Status DC Propofol 100 ml @ As Directed STK-MED ONCE IV ; Start 02/09/21 at 15:51; Stop 02/09/21 at 15:51; Status DC Rocuronium Apollo (Zemuron) 50 mg STK-MED ONCE .ROUTE ; Start 02/09/21 at 15:51; Stop 02/09/21 at 15:51; Status DC Lidocaine HCl (Lidocaine HCl 2% Abboject) 100 mg STK-MED ONCE .ROUTE ; Start 02/09/21 at 15:52; Stop 02/09/21 at 15:53; Status DC Propofol 100 ml @ 3.507 mls/ hr CONT PRN IV PER PROTOCOL Last administered on 02/17/21at 10:15; Start 02/09/21 at 16:15 Lidocaine HCl (Lidocaine HCl 2% Abboject) 100 mg 1X ONCE IV Last administered on 02/09/21 16:17; Start 02/09/21 at 16:15; Stop 02/09/21 at 16:17; Status DC Rocuronium Apollo (Zemuron) 50 mg 1X ONCE IV Last administered on 02/09/21 16:17; Start 02/09/21 at 16:15; Stop 02/09/21 at 16:17; Status DC Rocuronium Apollo (Zemuron) 100 mg STK-MED ONCE .ROUTE ; Start 02/09/21 at 16:31; Stop 02/09/21 at 16:32; Status DC Gelatin (Gelfoam Size 100) 1 each STK-MED ONCE .ROUTE Last administered on 02/09/21 17:49; Start 02/09/21 at 16:33; Stop 02/09/21 at 16:33; Status DC Bupivacaine HCl/ Epinephrine Bitart (Sensorcain-Epi 0.5%-1:501804 Mpf) 30 ml STK-MED ONCE .ROUTE Last administered on 02/09/21 17:49; Start 02/09/21 at 16:33; Stop 02/09/21 at 16:33; Status DC Cellulose (Surgicel Hemostat 4x8) 1 each STK-MED ONCE .ROUTE Last administered on 02/09/21 18:38; Start 02/09/21 at 16:33; Stop 02/09/21 at 16:33; Status DC Thrombin 20,000 unit STK-MED ONCE TP Last administered on 02/09/21 17:49; Start 02/09/21 at 16:33; Stop 02/09/21 at 16:33; Status DC Fentanyl Citrate (Fentanyl 2ml Vial) 75 mcg 1X ONCE IVP Last administered on 7/8/21at 16:45; Start 02/09/21 at 16:45; Stop 02/09/21 at 16:47; Status DC Propofol (Diprivan) 200 mg 1X ONCE IV ; Start 02/09/21 at 17:15; Stop 02/09/21 at 17:16; Status DC Lidocaine HCl (Lidocaine HCl 2% Abboject) 100 mg 1X ONCE IV ; Start 02/09/21 at 17:15; Stop 02/09/21 at 17:16; Status DC Rocuronium Apollo (Zemuron) 50 mg 1X ONCE IV ; Start 02/09/21 at 17:15; Stop 02/09/21 at 17:16; Status DC Propofol 100 ml @ 0 mls/hr CONT PRN PRN IV SEDATION; Start 02/09/21 at 17:15; Stop 02/10/21 at 05:14; Status DC Cefazolin Sodium (Ancef) 1 gm STK-MED ONCE IVP ; Start 02/09/21 at 17:28; Stop 02/09/21 at 17:28; Status DC Fentanyl Citrate (Fentanyl 2ml Vial) 100 mcg STK-MED ONCE .ROUTE ; Start 02/09/21 at 17:43; Stop 02/09/21 at 17:43; Status DC Rocuronium Apollo (Zemuron) 100 mg STK-MED ONCE .ROUTE ; Start 02/09/21 at 17:58; Stop 02/09/21 at 17:59; Status DC Vecuronium Apollo (Norcuron Bolus) 10 mg STK-MED ONCE IV ; Start 02/09/21 at 18:49; Stop 02/09/21 at 18:50; Status DC Sodium Chloride (SODIUM CHLORIDE 20ml) 20 ml STK-MED ONCE IJ ; Start 02/09/21 at 18:50; Stop 02/09/21 at 18:50; Status DC Sevoflurane (Ultane) 90 ml STK-MED ONCE IH ; Start 02/09/21 at 19:20; Stop 02/09/21 at 19:21; Status DC Fentanyl Citrate 30 ml @ 2.5 mls/hr CONT PRN IV SEE PROTOCOL Last administered on 02/09/21at 23:40; Start 02/09/21 at 23:15; Stop 02/10/21 at 04:43; Status DC Fentanyl Citrate 55 ml @ 0 mls/hr CONT PRN IV SEE I/O Last administered on 02/16/21at 11:11; Start 02/10/21 at 05:00 Potassium Chloride/Dextrose/ Sod Cl 1,000 ml @ 80 mls/hr [id number] IV ; Start 02/10/21 at 09:00; Stop 02/10/21 at 13:21; Status DC Pantoprazole Sodium (PROTONIX VIAL for IV PUSH) 40 mg DAILYAC IVP Last administered on 02/17/21at 08:12; Start 02/10/21 at 09:00 Lidocaine HCl (Buffered Lidocaine 1%) 3 ml STK-MED ONCE .ROUTE ; Start 02/10/21 at 13:18; Stop 02/10/21 at 13:18; Status DC Sodium Chloride 1,000 ml @ 80 mls/hr [id number] IV Last administered on 02/12/21at 03:00; Start 02/10/21 at 13:30; Stop 02/12/21 at 15:36; Status DC Lidocaine HCl (Buffered Lidocaine 1%) 6 ml 1X ONCE INJ Last administered on 02/10/21at 13:57; Start 02/10/21 at 13:45; Stop 02/10/21 at 13:46; Status DC Potassium Chloride/Water 100 ml @ 100 mls/hr Q1H IV Last administered on 02/11at 10:07; Start 02/11/21 at 08:00; Stop 02/11/21 at 09:59; Status DC Piperacillin Sod/ Tazobactam Sod 3.375 gm/Sodium Chloride 50 ml @ 100 mls/hr Q6HRS IV Last administered on 02/17/21at 11:07; Start 02/11/21 at 09:00 Info (Tpn Per Pharmacy) 1 each PRN DAILY PRN MC SEE COMMENTS Last administered on 02/17/21at 09:39; Start 02/11/21 at 11:15 Sodium Chloride 90 meq/Potassium Chloride 50 meq/ Potassium Phosphate 13.6 mmol/Magnesium Sulfate 10 meq/ Calcium Gluconate 10 meq/ Multivitamins 5 ml/Zinc/Copper/ Manganese/ Selenium 1 ml/ Total Parenteral Nutrition/Amino Acids/Dextrose 1,512 ml @ 63 mls/hr TPN CONT IV Last administered on 02/11/21at 22:32; Start 02/11/21 at 22:00; Stop 02/12/21 at 21:59; Status DC Furosemide (Lasix) 20 mg 1X ONCE IVP Last administered on 02/11/21at 15:11; Start 02/11/21 at 15:30; Stop 02/11/21 at 15:31; Status DC Furosemide (Lasix) 20 mg 1X ONCE IVP Last administered on 02/11/21at 17:00; Start 02/11/21 at 17:00; Stop 02/11/21 at 17:01; Status DC Midazolam HCl 100 ml @ 1 mls/hr CONT PRN IV SEE PROTOCOL Last administered on 02/13/21at 20:58; Start 02/11/21 at 19:30 Acetaminophen (Tylenol Supp) 650 mg PRN Q6HRS PRN NC MILD PAIN / TEMP > 100.3'F; Start 02/11/21 at 21:15 Sodium Chloride 80 meq/Potassium Chloride 50 meq/ Potassium Phosphate 13.6 mmol/Magnesium Sulfate 6 meq/ Calcium Gluconate 10 meq/ Multivitamins 5 ml/Zinc/Copper/ Manganese/ Selenium 1 ml/ Total Parenteral Nutrition/Amino Acids/Dextrose 1,512 ml @ 63 mls/hr TPN CONT IV Last administered on 02/12/21at 22:09; Start 02/12/21 at 22:00; Stop 02/13/21 at 21:59; Status DC Furosemide (Lasix) 40 mg 1X ONCE IVP Last administered on 02/12/21at 12:44; Start 02/12/21 at 12:30; Stop 02/12/21 at 12:31; Status DC Insulin Human Lispro (HumaLOG) 0-5 UNITS Q6HRS SQ Last administered on 02/17/21at 12:28; Start 02/12/21 at 12:00 Dextrose (Dextrose 50%-Water Syringe) 12.5 gm PRN Q15MIN PRN IV SEE COMMENTS; Start 02/12/21 at 12:15 Clonidine HCl (Catapres Tts-3) 1 patch WEEKLY TD Last administered on 02/13/21at 11:47; Start 02/13/21 at 11:00 Sodium Chloride 80 meq/Potassium Chloride 50 meq/ Potassium Phosphate 13.6 mmol/Magnesium Sulfate 6 meq/ Calcium Gluconate 10 meq/ Multivitamins 5 ml/Zinc/Copper/ Manganese/ Selenium 1 ml/ Total Parenteral Nutrition/Amino Acids/Dextrose 1,512 ml @ 63 mls/hr TPN CONT IV Last administered on 02/13/21at 21:42; Start 02/13/21 at 22:00; Stop 02/14/21 at 21:59; Status DC Potassium Acetate 50 meq/Potassium Phosphate 13.6 mmol/Magnesium Sulfate 6 meq/ Calcium Gluconate 10 meq/ Multivitamins 5 ml/Zinc/Copper/ Manganese/ Selenium 1 ml/ Total Parenteral Nutrition/Amino Acids/Dextrose 1,512 ml @ 63 mls/hr TPN CONT IV Last administered on 02/14/21at 21:59; Start 02/14/21 at 22:00; Stop 02/15/21 at 21:59; Status DC Insulin Glargine (Lantus Syringe) 10 unit QHS SQ Last administered on 02/15/21at 22:11; Start 02/14/21 at 21:00; Stop 02/16/21 at 12:42; Status DC Hydralazine HCl (Apresoline Inj) 10 mg PRN Q4HRS PRN IVP ELEVATED BP, SEE COMMENTS Last administered on 02/17/21at 08:13; Start 02/14/21 at 16:00 Potassium Acetate 50 meq/Potassium Phosphate 13.6 mmol/Magnesium Sulfate 6 meq/ Calcium Gluconate 10 meq/ Multivitamins 5 ml/Zinc/Copper/ Manganese/ Selenium 1 ml/ Total Parenteral Nutrition/Amino Acids/Dextrose 1,512 ml @ 63 mls/hr TPN CONT IV Last administered on 02/15/21at 22:13; Start 02/15/21 at 22:00; Stop 02/16/21 at 21:59; Status DC Dexmedetomidine HCl 400 mcg/ Sodium Chloride 100 ml @ 0 mls/hr CONT PRN IV PER PROTOCOL Last administered on 02/17/21at 11:00; Start 02/15/21 at 14:15 Sodium Chloride 500 ml @ 500 mls/hr 1X PRN PRN IV SEE COMMENTS; Start 02/15/21 at 14:15 Atropine Sulfate (ATROPINE 0.5mg SYRINGE) 0.5 mg PRN Q5MIN PRN IV SEE COMMENTS; Start 02/15/21 at 14:15 Potassium Acetate 50 meq/Potassium Phosphate 13.6 mmol/Magnesium Sulfate 6 meq/ Calcium Gluconate 10 meq/ Multivitamins 5 ml/Zinc/Copper/ Manganese/ Selenium 1 ml/ Total Parenteral Nutrition/Amino Acids/Dextrose 1,512 ml @ 63 mls/hr TPN CONT IV Last administered on 02/16/21at 22:59; Start 02/16/21 at 22:00; Stop 02/17/21 at 21:59 Insulin Glargine (Lantus Syringe) 14 unit QHS SQ Last administered on 02/16/21at 21:14; Start 02/16/21 at 21:00 Potassium Acetate 50 meq/Potassium Phosphate 13.6 mmol/Magnesium Sulfate 6 meq/ Calcium Gluconate 10 meq/ Multivitamins 5 ml/Zinc/Copper/ Manganese/ Selenium 1 ml/ Total Parenteral Nutrition/Amino Acids/Dextrose 1,512 ml @ 63 mls/hr TPN CONT IV ; Start 02/17/21 at 22:00; Stop 02/18/21 at 21:59 Dextrose 1,000 ml @ 75 mls/hr [id number] IV Last administered on 02/17/21at 11:07; Start 02/17/21 at 10:30 Vitals/I & O Vital Sign - Last 24 Hours 02/16/21 02/16/21 02/16/21 02/16/21 12:45 13:00 14:00 15:00 Pulse 64 63 69 64 Resp 26 20 18 B/P (MAP) 150/84 (106) 154/67 (96) 137/67 (90) 153/89 (110) Pulse Ox 95 94 96 O2 Delivery Ventilator Ventilator Ventilator 02/16/21 02/16/21 02/16/21 02/16/21 15:43 15:43 16:00 16:59 Temp 97.8 97.8 Pulse 74 Resp 26 B/P (MAP) 133/84 (100) Pulse Ox 97 94 94 O2 Delivery Ventilator Mechanical Ventilator Ventilator Ventilator 02/16/21 02/16/21 02/16/21 02/16/21 17:00 18:00 19:00 20:00 Pulse 68 69 59 Resp 27 20 18 B/P (MAP) 148/85 (106) 151/91 (111) 151/93 (112) Pulse Ox 96 98 98 O2 Delivery Ventilator Ventilator Ventilator Mechanical Ventilator 02/16/21 02/16/21 02/16/21 02/16/21 20:00 20:28 21:00 22:00 Temp 98.1 98.1 Pulse 60 53 52 Resp 20 18 17 B/P (MAP) 152/91 (111) 155/94 (114) 157/95 (115) Pulse Ox 99 99 99 99 O2 Delivery Ventilator Ventilator Ventilator Ventilator 02/16/21 02/16/21 02/16/21 02/17/21 23:00 23:59 23:59 00:19 Temp 98.1 98.1 Pulse 50 51 Resp 18 17 B/P (MAP) 140/89 (106) 138/71 (93) Pulse Ox 99 98 99 O2 Delivery Ventilator Mechanical Ventilator Ventilator Ventilator 02/17/21 02/17/21 02/17/21 02/17/21 01:00 02:00 03:00 03:03 Pulse 62 58 47 Resp 18 18 17 B/P (MAP) 132/82 (99) 136/88 (104) 159/99 (119) Pulse Ox 99 99 99 99 O2 Delivery Ventilator Ventilator Ventilator Ventilator 02/17/21 02/17/21 02/17/21 02/17/21 04:00 04:00 05:00 06:00 Temp 97.4 97.4 Pulse 47 48 55 Resp 16 22 B/P (MAP) 150/94 (112) 149/96 (113) 134/88 (103) Pulse Ox 100 99 99 O2 Delivery Mechanical Ventilator Ventilator Ventilator Ventilator 02/17/21 02/17/21 02/17/21 02/17/21 06:09 07:00 07:42 08:00 Temp 97.6 97.6 Pulse 55 55 Resp 22 20 B/P (MAP) 142/92 (109) 148/85 (106) Pulse Ox 99 99 100 97 O2 Delivery Ventilator Ventilator Ventilator Ventilator 02/17/21 02/17/21 02/17/21 02/17/21 08:00 08:13 09:00 09:28 Pulse 49 55 Resp 22 B/P (MAP) 140/94 121/78 (92) Pulse Ox 99 97 O2 Delivery Mechanical Ventilator Ventilator Ventilator 02/17/21 02/17/21 02/17/21 02/17/21 09:30 10:00 11:00 11:34 Pulse 55 52 56 Resp 22 19 17 B/P (MAP) 111/78 (89) 116/73 (87) 135/90 (105) Pulse Ox 99 99 99 100 O2 Delivery Ventilator Ventilator Ventilator Ventilator 02/17/21 02/17/21 12:00 12:00 Temp 97.5 97.5 Pulse 51 Resp 18 B/P (MAP) 121/78 (92) Pulse Ox 100 O2 Delivery Ventilator Mechanical Ventilator Intake and Output 02/16/21 02/16/21 02/17/21 15:00 23:00 07:00 Intake Total 70 ml 1336.47 ml 2313 ml Output Total 1285 ml 800 ml 615 ml Balance -1215 ml 536.47 ml 1698 ml Justifications for Admission Other Justification LUCINDA DENNY MD Feb 17, 2021 12:44
[2021-02-17] MEDS ORDERED: INSULIN GLARGINE SYRINGE. SQ SCH (21:00)
[2021-02-17] MEDS ORDERED: TOTAL PARENTERAL NUTRITION IV SCH (22:00)
[2021-02-17] MEDS ORDERED: DEXTROSE 70% IV SCH (22:00)
[2021-02-17] MEDS ORDERED: [UNRECOGNIZED DRUG - OTHER] IV SCH (22:00)
[2021-02-17] MEDS ORDERED: AMINO ACID IV SCH (22:00)
[2021-02-18] VITALS (23 sets, daily range): BP systolic 112–187; BP diastolic 80–101
[2021-02-18] MEDS: PIPERACILLIN/TAZOBACTAM 3.375 GM in IV NORMAL SALINE 50ML 50 ML IV SCH ×5 (00:29→23:59)
[2021-02-18] MEDS: DEXMEDETOMIDINE 400 MCG in IV NORMAL SALINE 100ML 96 ML IV PRN ×5 (00:42→18:47)
[2021-02-18] MEDS: PROPOFOL 100 ML IV PRN ×6 (01:34→21:42)
[2021-02-18] MEDS: hydrALAZINE 20 MG/ML VIAL. IVP PRN ×3 (04:58→12:03)
[2021-02-18] MEDS: INSULIN LISPRO 300 UNITS/3 ML VIAL. SQ SCH ×4 (06:00→17:13)
[2021-02-18 06:32] LABS: CALCIUM 9.3 mg/dL (8.5-10.1); CREATININE 0.9 mg/dL (0.7-1.3); GFR 104.2; POTASSIUM 4.4 mmol/L (3.5-5.1)
[2021-02-18 06:35] LABS: MAGNESIUM 2.1 mg/dL (1.8-2.4); PHOSPHORUS 4.5 mg/dL (2.6-4.7)
[2021-02-18 07:40] LABS: BASO % 0 % (0-3); EOS # 0.2 x10^3/uL (0.0-0.7); EOS % 2 % (0-3); HEMATOCRIT 35.9 % (39.0-53.0); HEMOGLOBIN 11.5 g/dL (13.0-17.5); LYMPH # 1.4 x10^3/uL (1.0-4.8); LYMPH % 21 % (24-48); MEAN CORPUSCULAR HEMOGLOBIN 30 pg (25-35); MEAN CORPUSCULAR HGB CONC 32 g/dL (31-37); MEAN CORPUSCULAR VOLUME 92 fL (79-100); MONO # 0.6 x10^3/uL (0.0-1.1); MONO % 10 % (0-9); NEUT # 4.4 x10^3/uL (1.8-7.7); NEUT % 67 % (31-73); PLATELET COUNT 241 x10^3/uL (140-400); RED CELL DISTRIBUTION WIDTH 14.1 % (11.5-14.5); WHITE BLOOD COUNT 6.7 x10^3/uL (4.0-11.0)
--- NOTE | 2021-02-18 07:43 | PDOC ---
Infectious Disease Note Subjective: Subjective Patient remains sedated fio2 40% Discussed with RN Vital Signs: Vital Signs Vital Signs Date Time Temp Pulse Resp B/P (MAP) Pulse Ox O2 Delivery O2 Flow Rate FiO2 02/18/21 07:00 44 16 112/81 (91) 100 Ventilator 02/18/21 03:53 98.1 98.1 Physical Exam: PHYSICAL EXAM GENERAL: Sedated, orally intubated gentleman, HEENT: ETT/OGT + NECK: Rt IJ clean LUNGS: Decreased breath sound at bases HEART: S1, S2 bradycardia ABDOMEN: Soft, nontender, no organomegaly. EXTREMITIES: +edema, no cyanosis. SKIN:no gen rash NEUROLOGIC: unable to assess art line, central line clean Medications: Inpatient Meds: Medications reviewed. Labs: Lab Laboratory Tests Test 02/17/21 08:00 02/17/21 12:24 02/17/21 17:45 02/17/21 20:45 O2 Saturation 97 % (92-99) Arterial Blood pH 7.40 (7.35-7.45) Arterial Blood pCO2 at Patient Temp 39 mmHg (35-46) Arterial Blood pO2 at Patient Temp 96 mmHg (65-108) Arterial Blood HCO3 24 mmol/L (21-28) Arterial Blood Base Excess -1 mmol/L (-3-3) FiO2 40%+6 Glucose (Fingerstick) 305 mg/dL (70-99) 293 mg/dL (70-99) 310 mg/dL (70-99) Test 02/18/21 00:26 02/18/21 05:15 02/18/21 06:02 Glucose (Fingerstick) 279 mg/dL (70-99) 323 mg/dL (70-99) White Blood Count 6.7 x10^3/uL (4.0-11.0) Red Blood Count 3.90 x10^6/uL (4.30-5.70) Hemoglobin 11.5 g/dL (13.0-17.5) Hematocrit 35.9 % (39.0-53.0) Mean Corpuscular Volume 92 fL (79-100) Mean Corpuscular Hemoglobin 30 pg (25-35) Mean Corpuscular Hemoglobin Concent 32 g/dL (31-37) Red Cell Distribution Width 14.1 % (11.5-14.5) Platelet Count 241 x10^3/uL (140-400) Neutrophils (%) (Auto) 67 % (31-73) Lymphocytes (%) (Auto) 21 % (24-48) Monocytes (%) (Auto) 10 % (0-9) Eosinophils (%) (Auto) 2 % (0-3) Basophils (%) (Auto) 0 % (0-3) Neutrophils # (Auto) 4.4 x10^3/uL (1.8-7.7) Lymphocytes # (Auto) 1.4 x10^3/uL (1.0-4.8) Monocytes # (Auto) 0.6 x10^3/uL (0.0-1.1) Eosinophils # (Auto) 0.2 x10^3/uL (0.0-0.7) Basophils # (Auto) 0.0 x10^3/uL (0.0-0.2) Sodium Level 143 mmol/L (136-145) Potassium Level 4.4 mmol/L (3.5-5.1) Chloride Level 109 mmol/L (98-107) Carbon Dioxide Level 26 mmol/L (21-32) Anion Gap 8 (6-14) Blood Urea Nitrogen 26 mg/dL (8-26) Creatinine 0.9 mg/dL (0.7-1.3) Estimated GFR (Cockcroft-Gault) 104.2 Glucose Level 335 mg/dL (70-99) Calcium Level 9.3 mg/dL (8.5-10.1) Phosphorus Level 4.5 mg/dL (2.6-4.7) Magnesium Level 2.1 mg/dL (1.8-2.4) Objective: Assessment: 1. Fever.Improved 2. Suspected aspiration.sputum cultures NRF 3. Intracranial bleed with mass effect, status post craniotomy and hematoma evacuation. 4. Encephalopathy 5. Respiratory failure. 6. Hypertension. 7. Chronic obstructive pulmonary disease. 8. MARVIN improved U/S BUE to neg for DVT Bradycardia Plan: Plan of Care cont Zosyn Monitor labs and cults cont supportive care RAMU DELGADO MD Feb 18, 2021 07:43
[2021-02-18] MEDS: PANTOPRAZOLE IV PUSH 40 MG VIAL. IVP SCH (08:51)
--- NOTE | 2021-02-18 09:43 | PDOC ---
PROGRESS NOTES Date of Service: DATE: 02/18/21 TIME: 09:43 Chief Complaint Chief Complaint IMPRESSION Dizziness Large right temporo-occipital intraparenchymal bleed, most likely lobar hemorrhage from hypertension, consider venous sinus thrombosis, , aneurysmal bleed, Had craniotomy 7 evening Suspect aspiration, respiratory failure, hypertension, chronic obstructive pulmonary disease, improving acute kidney injury MORBID OBESITY History of Present Illness History of Present Illness 02/18/2021 POD #9 Right occipital craniotomy with evacuation of intracerebral hematoma sedated on vent Patient seen and examined at bedside Continue antibiotics per infectious disease Weaning ventilator and sedation as tolerated extubation in the next few days Plan of care discussed with bedside nurse Expected interval evolution of a right posterior temporal/occipital intraparenchymal hematoma status post decompressive craniotomy Large right temporo-occipital intraparenchymal bleed, most likely lobar hemorrhage from hypertension, consider venous sinus thrombosis, less likely in this location, aneurysmal bleed, head trauma (also unlikely). Had craniotomy 02/09 evening Suspect of aspiration, respiratory failure, hypertension, chronic obstructive pulmonary disease, improving acute kidney injury cont Zosyn glucose uncontrolled add Lantus 22 UNITS SQ HS 34 MIN CC TIME 02/17/2021 POD #8 Right occipital craniotomy with evacuation of intracerebral hematoma sedated on vent Patient seen and examined at bedside Good response to IV Lasix Continue antibiotics per infectious disease Weaning ventilator and sedation as tolerated extubation in the next few days Plan of care discussed with bedside nurse Expected interval evolution of a right posterior temporal/occipital intraparenchymal hematoma status post decompressive craniotomy Large right temporo-occipital intraparenchymal bleed, most likely lobar hemorrhage from hypertension, consider venous sinus thrombosis, less likely in this location, aneurysmal bleed, head trauma (also unlikely). Had craniotomy 7/ evening Suspect of aspiration, respiratory failure, hypertension, chronic obstructive pu lmonary disease, improving acute kidney injury cont Zosyn glucose uncontrolled add Lantus 18 UNITS SQ HS 33 MIN CC TIME 02/16/2021 POD #7 Right occipital craniotomy with evacuation of intracerebral hematoma sedated on vent Patient seen and examined at bedside Good response to IV Lasix Continue antibiotics per infectious disease Weaning ventilator and sedation as tolerated extubation in the next few days Plan of care discussed with bedside nurse Expected interval evolution of a right posterior temporal/occipital intraparenchymal hematoma status post decompressive craniotomy Large right temporo-occipital intraparenchymal bleed, most likely lobar hemorrhage from hypertension, consider venous sinus thrombosis, less likely in this location, aneurysmal bleed, head trauma (also unlikely). Had craniotomy 7/8 evening Suspect of aspiration, respiratory failure, hypertension, chronic obstructive pulmonary disease, improving acute kidney injury cont Zosyn glucose uncontrolled add Lantus 14 UNITS SQ HS 35 MIN CC TIME 02/15/2021 POD #6 Right occipital craniotomy with evacuation of intracerebral hematoma sedated on vent Patient seen and examined at bedside Good response to IV Lasix Continue antibiotics per infectious disease Weaning ventilator and sedation as tolerated Hopeful extubation in the next few days Plan of care discussed with bedside nurse Expected interval evolution of a right posterior temporal/occipital intraparenchymal hematoma status post decompressive craniotomy Large right temporo-occipital intraparenchymal bleed, most likely lobar hemorrhage from hypertension, consider venous sinus thrombosis, less likely in this location, aneurysmal bleed, head trauma (also unlikely). Had craniotomy 7/ evening Suspect of aspiration, respiratory failure, hypertension, chronic obstructive pulmonary disease, improving acute kidney injury cont Zosyn glucose uncontrolled add Lantus 35 MIN CC TIME 02/14/2021 POD #5 Right occipital craniotomy with evacuation of intracerebral hematoma sedated on vent Patient seen and examined at bedside Good response to IV Lasix Continue antibiotics per infectious disease Weaning ventilator and sedation as tolerated Hopeful extubation in the next few days Plan of care discussed with bedside nurse Expected interval evolution of a right posterior temporal/occipital intraparenchymal hematoma status post decompressive craniotomy Large right temporo-occipital intraparenchymal bleed, most likely lobar hemorrhage from hypertension, consider venous sinus thrombosis, less likely in this location, aneurysmal bleed, head trauma (also unlikely). Had craniotomy 7/8 evening Suspect of aspiration, respiratory failure, hypertension, chronic obstructive pulmonary disease, improving acute kidney injury cont Zosyn glucose uncontrolled add Lantus 35 MIN CC TIME 02/13/2021 POD #4 Right occipital craniotomy with evacuation of intracerebral hematoma sedated on vent Patient seen and examined at bedside Good response to IV Lasix Continue antibiotics per infectious disease Weaning ventilator and sedation as tolerated Hopeful extubation in the next few days Plan of care discussed with bedside nurse Expected interval evolution of a right posterior temporal/occipital intraparenchymal hematoma status post decompressive craniotomy Large right temporo-occipital intraparenchymal bleed, most likely lobar hemorrhage from hypertension, consider venous sinus thrombosis, less likely in this location, aneurysmal bleed, head trauma (also unlikely). Had craniotomy 02/09 evening Suspect of aspiration, respiratory failure, hypertension, chronic obstructive pulmonary disease, improving acute kidney injury cont Zosyn 35 MIN CC TIME 02/12/2021 Patient seen and examined at bedside Remains intubated and sedated Good response to IV Lasix yesterday had nearly 3 L out; will diurese again today Continue antibiotics per infectious disease Weaning ventilator and sedation as tolerated Hopeful extubation in the next few days Plan of care discussed with bedside nurse 02/11/2021 Patient seen and examined at bedside No major clinical changes overnight however this morning patient has largely increased amount of secretions Chest x-ray concerning for possible pneumonia, will consult ID who recommended starting Zosyn Otherwise he remains intubated and sedated We will follow subspecialist input Plan discussed with bedside RN 02/10/2021 Patient seen and examined at bedside Underwent craniotomy yesterday due to unresponsiveness in the late afternoon; was also intubated Continues to have a poor neurologic status Neurology and neurosurgery following Discussed plan of care with bedside nurse Patient is a 61-year-old male transferred for to the ICU overnight due to hypertensive emergency and intracranial hemorrhage. Patient's mother at bedside provides most the history. She reports that patient had been in his usual state of health until yesterday morning when he reported feeling tired and having a headache. Patient mother reports he normally gets up early and goes outside however this was not the case yesterday. With this headache he took BC powder and went back to bed. Patient's mother reports that he was in and out of bed throughout most of the afternoon. Says patient did not eat anything yesterday which is very unusual for him. Approximately 1130 last night she had the patient get up to go to the bathroom and heard him fall. He however is able to get up and returned to bed; unknown if he hit his head at this time. Patient again woke up around 2 AM and woke up his mother asking for orange juice and then proceeded to fall again, she does not think he hit his head at this time. He was taken to hospital and found to have a systolic blood pressure greater than [address] scan found to have an intracranial hemorrhage. Due to severity of his condition he was transferred here. Patient's mother reports she is not aware of any past medical history other than hypertension which he intermittently takes hydrochlorothiazide for. Vitals Vitals Vital Signs Date Time Temp Pulse Resp B/P (MAP) Pulse Ox O2 Delivery O2 Flow Rate FiO2 02/18/21 09:00 Mechanical Ventilator 02/18/21 08:54 50 160/101 02/18/21 08:07 100 02/18/21 07:00 16 02/18/21 03:53 98.1 98.1 Physical Exam Physical Exam GENERAL: Sedated, orally intubated gentleman, HEENT: ETT/OGT + NECK: Rt IJ clean LUNGS: Decreased breath sound at bases HEART: S1, S2 bradycardia ABDOMEN: Soft, nontender, no organomegaly. EXTREMITIES: +edema, no cyanosis. SKIN:no gen rash NEUROLOGIC: unable to assess art line, central line clean General: Other (on vent with sedation) Lungs: Clear, Crackles Abdomen: Soft Extremities: No cyanosis Skin: Other (dressing C,D,I) Labs LABS Laboratory Tests Test 02/17/21 12:24 02/17/21 17:45 02/17/21 20:45 02/18/21 00:26 Glucose (Fingerstick) 305 mg/dL (70-99) 293 mg/dL (70-99) 310 mg/dL (70-99) 279 mg/dL (70-99) Test 02/18/21 05:15 02/18/21 06:02 White Blood Count 6.7 x10^3/uL (4.0-11.0) Red Blood Count 3.90 x10^6/uL (4.30-5.70) Hemoglobin 11.5 g/dL (13.0-17.5) Hematocrit 35.9 % (39.0-53.0) Mean Corpuscular Volume 92 fL (79-100) Mean Corpuscular Hemoglobin 30 pg (25-35) Mean Corpuscular Hemoglobin Concent 32 g/dL (31-37) Red Cell Distribution Width 14.1 % (11.5-14.5) Platelet Count 241 x10^3/uL (140-400) Neutrophils (%) (Auto) 67 % (31-73) Lymphocytes (%) (Auto) 21 % (24-48) Monocytes (%) (Auto) 10 % (0-9) Eosinophils (%) (Auto) 2 % (0-3) Basophils (%) (Auto) 0 % (0-3) Neutrophils # (Auto) 4.4 x10^3/uL (1.8-7.7) Lymphocytes # (Auto) 1.4 x10^3/uL (1.0-4.8) Monocytes # (Auto) 0.6 x10^3/uL (0.0-1.1) Eosinophils # (Auto) 0.2 x10^3/uL (0.0-0.7) Basophils # (Auto) 0.0 x10^3/uL (0.0-0.2) Sodium Level 143 mmol/L (136-145) Potassium Level 4.4 mmol/L (3.5-5.1) Chloride Level 109 mmol/L (98-107) Carbon Dioxide Level 26 mmol/L (21-32) Anion Gap 8 (6-14) Blood Urea Nitrogen 26 mg/dL (8-26) Creatinine 0.9 mg/dL (0.7-1.3) Estimated GFR (Cockcroft-Gault) 104.2 Glucose Level 335 mg/dL (70-99) Calcium Level 9.3 mg/dL (8.5-10.1) Phosphorus Level 4.5 mg/dL (2.6-4.7) Magnesium Level 2.1 mg/dL (1.8-2.4) Glucose (Fingerstick) 323 mg/dL (70-99) Comment Review of Relevant I have reviewed the following items neela (where applicable) has been applied. Labs Laboratory Tests Test 02/16/21 12:10 02/16/21 17:33 02/16/21 21:11 02/16/21 23:47 Glucose (Fingerstick) 273 mg/dL (70-99) 286 mg/dL (70-99) 258 mg/dL (70-99) 248 mg/dL (70-99) Test 02/17/21 05:00 02/17/21 05:09 02/17/21 08:00 02/17/21 12:24 White Blood Count 7.5 x10^3/uL (4.0-11.0) Red Blood Count 3.93 x10^6/uL (4.30-5.70) Hemoglobin 11.8 g/dL (13.0-17.5) Hematocrit 36.3 % (39.0-53.0) Mean Corpuscular Volume 92 fL (79-100) Mean Corpuscular Hemoglobin 30 pg (25-35) Mean Corpuscular Hemoglobin Concent 32 g/dL (31-37) Red Cell Distribution Width 13.9 % (11.5-14.5) Platelet Count 231 x10^3/uL (140-400) Sodium Level 150 mmol/L (136-145) Potassium Level 4.2 mmol/L (3.5-5.1) Chloride Level 113 mmol/L (98-107) Carbon Dioxide Level 27 mmol/L (21-32) Anion Gap 10 (6-14) Blood Urea Nitrogen 27 mg/dL (8-26) Creatinine 0.9 mg/dL (0.7-1.3) Estimated GFR (Cockcroft-Gault) 104.2 Glucose Level 275 mg/dL (70-99) Calcium Level 9.5 mg/dL (8.5-10.1) Phosphorus Level 3.8 mg/dL (2.6-4.7) Magnesium Level 2.2 mg/dL (1.8-2.4) Glucose (Fingerstick) 257 mg/dL (70-99) 305 mg/dL (70-99) O2 Saturation 97 % (92-99) Arterial Blood pH 7.40 (7.35-7.45) Arterial Blood pCO2 at Patient Temp 39 mmHg (35-46) Arterial Blood pO2 at Patient Temp 96 mmHg (65-108) Arterial Blood HCO3 24 mmol/L (21-28) Arterial Blood Base Excess -1 mmol/L (-3-3) FiO2 40%+6 Test 02/17/21 17:45 02/17/21 20:45 02/18/21 00:26 02/18/21 05:15 Glucose (Fingerstick) 293 mg/dL (70-99) 310 mg/dL (70-99) 279 mg/dL (70-99) White Blood Count 6.7 x10^3/uL (4.0-11.0) Red Blood Count 3.90 x10^6/uL (4.30-5.70) Hemoglobin 11.5 g/dL (13.0-17.5) Hematocrit 35.9 % (39.0-53.0) Mean Corpuscular Volume 92 fL (79-100) Mean Corpuscular Hemoglobin 30 pg (25-35) Mean Corpuscular Hemoglobin Concent 32 g/dL (31-37) Red Cell Distribution Width 14.1 % (11.5-14.5) Platelet Count 241 x10^3/uL (140-400) Neutrophils (%) (Auto) 67 % (31-73) Lymphocytes (%) (Auto) 21 % (24-48) Monocytes (%) (Auto) 10 % (0-9) Eosinophils (%) (Auto) 2 % (0-3) Basophils (%) (Auto) 0 % (0-3) Neutrophils # (Auto) 4.4 x10^3/uL (1.8-7.7) Lymphocytes # (Auto) 1.4 x10^3/uL (1.0-4.8) Monocytes # (Auto) 0.6 x10^3/uL (0.0-1.1) Eosinophils # (Auto) 0.2 x10^3/uL (0.0-0.7) Basophils # (Auto) 0.0 x10^3/uL (0.0-0.2) Sodium Level 143 mmol/L (136-145) Potassium Level 4.4 mmol/L (3.5-5.1) Chloride Level 109 mmol/L (98-107) Carbon Dioxide Level 26 mmol/L (21-32) Anion Gap 8 (6-14) Blood Urea Nitrogen 26 mg/dL (8-26) Creatinine 0.9 mg/dL (0.7-1.3) Estimated GFR (Cockcroft-Gault) 104.2 Glucose Level 335 mg/dL (70-99) Calcium Level 9.3 mg/dL (8.5-10.1) Phosphorus Level 4.5 mg/dL (2.6-4.7) Magnesium Level 2.1 mg/dL (1.8-2.4) Test 02/18/21 06:02 Glucose (Fingerstick) 323 mg/dL (70-99) Laboratory Tests Test 02/17/21 12:24 02/17/21 17:45 02/17/21 20:45 02/18/21 00:26 Glucose (Fingerstick) 305 mg/dL (70-99) 293 mg/dL (70-99) 310 mg/dL (70-99) 279 mg/dL (70-99) Test 02/18/21 05:15 02/18/21 06:02 White Blood Count 6.7 x10^3/uL (4.0-11.0) Red Blood Count 3.90 x10^6/uL (4.30-5.70) Hemoglobin 11.5 g/dL (13.0-17.5) Hematocrit 35.9 % (39.0-53.0) Mean Corpuscular Volume 92 fL (79-100) Mean Corpuscular Hemoglobin 30 pg (25-35) Mean Corpuscular Hemoglobin Concent 32 g/dL (31-37) Red Cell Distribution Width 14.1 % (11.5-14.5) Platelet Count 241 x10^3/uL (140-400) Neutrophils (%) (Auto) 67 % (31-73) Lymphocytes (%) (Auto) 21 % (24-48) Monocytes (%) (Auto) 10 % (0-9) Eosinophils (%) (Auto) 2 % (0-3) Basophils (%) (Auto) 0 % (0-3) Neutrophils # (Auto) 4.4 x10^3/uL (1.8-7.7) Lymphocytes # (Auto) 1.4 x10^3/uL (1.0-4.8) Monocytes # (Auto) 0.6 x10^3/uL (0.0-1.1) Eosinophils # (Auto) 0.2 x10^3/uL (0.0-0.7) Basophils # (Auto) 0.0 x10^3/uL (0.0-0.2) Sodium Level 143 mmol/L (136-145) Potassium Level 4.4 mmol/L (3.5-5.1) Chloride Level 109 mmol/L (98-107) Carbon Dioxide Level 26 mmol/L (21-32) Anion Gap 8 (6-14) Blood Urea Nitrogen 26 mg/dL (8-26) Creatinine 0.9 mg/dL (0.7-1.3) Estimated GFR (Cockcroft-Gault) 104.2 Glucose Level 335 mg/dL (70-99) Calcium Level 9.3 mg/dL (8.5-10.1) Phosphorus Level 4.5 mg/dL (2.6-4.7) Magnesium Level 2.1 mg/dL (1.8-2.4) Glucose (Fingerstick) 323 mg/dL (70-99) Microbiology 02/11/21 Blood Culture - Final, Complete NO GROWTH AFTER 5 DAYS 02/11/21 Gram Stain Evaluation - Final, Complete 02/11/21 Respiratory Culture - Final, Complete Medications Current Medications Nicardipine HCl 50 mg/Sodium Chloride 250 ml @ 12.5 mls/hr CONT PRN IV SEE I/O RECORD Last administered on 02/16/21at 14:00; Start 02/09/21 at 06:15 Labetalol HCl (Normodyne Iv Push) 10 mg PRN Q2HR PRN IVP HYPERTENSION Last administered on 02/15/21at 10:49; Start 02/09/21 at 06:15 Lorazepam (Ativan Inj) 2 mg 1X ONCE IVP Last administered on 02/09/21at 10:54; Start 02/09/21 at 10:45; Stop 02/09/21 at 10:46; Status DC Lorazepam (Ativan Inj) 2 mg 1X ONCE IVP Last administered on 02/09/21at 11:00; Start 02/09/21 at 11:00; Stop 02/09/21 at 11:01; Status DC Fentanyl Citrate (Fentanyl 2ml Vial) 25 mcg PRN Q2HR PRN IVP MODERATE TO SEVERE PAIN Last administered on 02/09/21at 13:37; Start 02/09/21 at 13:30 Info (Review Meds) 1 ea PRN 1X PRN SEE COMMENTS; Start 02/09/21 at 15:00 Acetaminophen (Tylenol Supp) 650 mg PRN Q6HRS PRN [place] FEVER > 100.5'F or 38'C; Start 02/09/21 at 15:00; Stop 02/11/21 at 21:12; Status DC Albuterol Sulfate (Ventolin Neb Soln) 2.5 mg PRN Q4HRS PRN NEB SHORTNESS OF BREATH; Start 02/09/21 at 15:15 Iohexol (Omnipaque 350 Mg/ml) 75 ml 1X ONCE IV Last administered on 02/09/21at 15:52; Start 02/09/21 at 15:30; Stop 02/09/21 at 15:35; Status DC Iohexol (Omnipaque 350 Mg/ml) 100 ml STK-MED ONCE .ROUTE ; Start 02/09/21 at 15:26; Stop 02/09/21 at 15:27; Status DC Info (CONTRAST GIVEN -- Rx MONITORING) 1 each PRN DAILY PRN MC SEE COMMENTS; Start 02/09/21 at 15:45; Stop 02/11/21 at 15:44; Status DC Propofol 100 ml @ As Directed STK-MED ONCE IV ; Start 02/09/21 at 15:51; Stop 02/09/21 at 15:51; Status DC Rocuronium Enola (Zemuron) 50 mg STK-MED ONCE .ROUTE ; Start 02/09/21 at 15:51; Stop 02/09/21 at 15:51; Status DC Lidocaine HCl (Lidocaine HCl 2% Abboject) 100 mg STK-MED ONCE .ROUTE ; Start 02/09/21 at 15:52; Stop 02/09/21 at 15:53; Status DC Propofol 100 ml @ 3.507 mls/ hr CONT PRN IV PER PROTOCOL Last administered on 02/18/21at 07:08; Start 02/09/21 at 16:15 Lidocaine HCl (Lidocaine HCl 2% Abboject) 100 mg 1X ONCE IV Last administered on 02/09/21at 16:17; Start 02/09/21 at 16:15; Stop 02/09/21 at 16:17; Status DC Rocuronium Enola (Zemuron) 50 mg 1X ONCE IV Last administered on 02/09/21at 16:17; Start 02/09/21 at 16:15; Stop 02/09/21 at 16:17; Status DC Rocuronium Enola (Zemuron) 100 mg STK-MED ONCE .ROUTE ; Start 02/09/21 at 16:31; Stop 02/09/21 at 16:32; Status DC Gelatin (Gelfoam Size 100) 1 each STK-MED ONCE .ROUTE Last administered on 02/09/21at 17:49; Start 02/09/21 at 16:33; Stop 02/09/21 at 16:33; Status DC Bupivacaine HCl/ Epinephrine Bitart (Sensorcain-Epi 0.5%-1:[id number] Mpf) 30 ml STK-MED ONCE .ROUTE Last administered on 02/09/21at 17:49; Start 02/09/21 at 16:33; Stop 02/09/21 at 16:33; Status DC Cellulose (Surgicel Hemostat 4x8) 1 each STK-MED ONCE .ROUTE Last administered on 02/09/21at 18:38; Start 02/09/21 at 16:33; Stop 02/09/21 at 16:33; Status DC Thrombin 20,000 unit STK-MED ONCE TP Last administered on 02/09/21at 17:49; Start 02/09/21 at 16:33; Stop 02/09/21 at 16:33; Status DC Fentanyl Citrate (Fentanyl 2ml Vial) 75 mcg 1X ONCE IVP Last administered on 02/09/21at 16:45; Start 02/09/21 at 16:45; Stop 02/09/21 at 16:47; Status DC Propofol (Diprivan) 200 mg 1X ONCE IV ; Start 02/09/21 at 17:15; Stop 02/09/21 at 17:16; Status DC Lidocaine HCl (Lidocaine HCl 2% Abboject) 100 mg 1X ONCE IV ; Start 02/09/21 at 17:15; Stop 02/09/21 at 17:16; Status DC Rocuronium Enola (Zemuron) 50 mg 1X ONCE IV ; Start 02/09/21 at 17:15; Stop 02/09/21 at 17:16; Status DC Propofol 100 ml @ 0 mls/hr CONT PRN PRN IV SEDATION; Start 02/09/21 at 17:15; Stop 02/10/21 at 05:14; Status DC Cefazolin Sodium (Ancef) 1 gm STK-MED ONCE IVP ; Start 02/09/21 at 17:28; Stop 02/09/21 at 17:28; Status DC Fentanyl Citrate (Fentanyl 2ml Vial) 100 mcg STK-MED ONCE .ROUTE ; Start 02/09/21 at 17:43; Stop 02/09/21 at 17:43; Status DC Rocuronium Enola (Zemuron) 100 mg STK-MED ONCE .ROUTE ; Start 02/09/21 at 17:58; Stop 02/09/21 at 17:59; Status DC Vecuronium Enola (Norcuron Bolus) 10 mg STK-MED ONCE IV ; Start 02/09/21 at 18:49; Stop 02/09/21 at 18:50; Status DC Sodium Chloride (SODIUM CHLORIDE 20ml) 20 ml STK-MED ONCE IJ ; Start 02/09/21 at 18:50; Stop 02/09/21 at 18:50; Status DC Sevoflurane (Ultane) 90 ml STK-MED ONCE IH ; Start 02/09/21 at 19:20; Stop 02/09/21 at 19:21; Status DC Fentanyl Citrate 30 ml @ 2.5 mls/hr CONT PRN IV SEE PROTOCOL Last administered on 02/09/21at 23:40; Start 02/09/21 at 23:15; Stop 02/10/21 at 04:43; Status DC Fentanyl Citrate 55 ml @ 0 mls/hr CONT PRN IV SEE I/O Last administered on 02/16/21at 11:11; Start 02/10/21 at 05:00 Potassium Chloride/Dextrose/ Sod Cl 1,000 ml @ 80 mls/hr [id number] IV ; Start 02/10/21 at 09:00; Stop 02/10/21 at 13:21; Status DC Pantoprazole Sodium (PROTONIX VIAL for IV PUSH) 40 mg DAILYAC IVP Last administered on 02/18/21at 08:51; Start 02/10/21 at 09:00 Lidocaine HCl (Buffered Lidocaine 1%) 3 ml STK-MED ONCE .ROUTE ; Start 02/10/21 at 13:18; Stop 02/10/21 at 13:18; Status DC Sodium Chloride 1,000 ml @ 80 mls/hr [id number] IV Last administered on 02/12/21at 03:00; Start 02/10/21 at 13:30; Stop 02/12/21 at 15:36; Status DC Lidocaine HCl (Buffered Lidocaine 1%) 6 ml 1X ONCE INJ Last administered on 02/10/21at 13:57; Start 02/10/21 at 13:45; Stop 02/10/21 at 13:46; Status DC Potassium Chloride/Water 100 ml @ 100 mls/hr Q1H IV Last administered on 02/11/21at 10:07; Start 02/11/21 at 08:00; Stop 02/11/21 at 09:59; Status DC Piperacillin Sod/ Tazobactam Sod 3.375 gm/Sodium Chloride 50 ml @ 100 mls/hr Q 6HRS IV Last administered on 02/18/21at 06:00; Start 02/11/21 at 09:00 Info (Tpn Per Pharmacy) 1 each PRN DAILY PRN MC SEE COMMENTS Last administered on 02/17/21at 09:39; Start 02/11/21 at 11:15 Sodium Chloride 90 meq/Potassium Chloride 50 meq/ Potassium Phosphate 13.6 mmol/Magnesium Sulfate 10 meq/ Calcium Gluconate 10 meq/ Multivitamins 5 ml/Zinc/Copper/ Manganese/ Selenium 1 ml/ Total Parenteral Nutrition/Amino Acids/Dextrose 1,512 ml @ 63 mls/hr TPN CONT IV Last administered on 02/11/21at 22:32; Start 02/11/21 at 22:00; Stop 02/12/21 at 21:59; Status DC Furosemide (Lasix) 20 mg 1X ONCE IVP Last administered on 02/11/21at 15:11; Start 02/11/21 at 15:30; Stop 02/11/21 at 15:31; Status DC Furosemide (Lasix) 20 mg 1X ONCE IVP Last administered on 02/11/21at 17:00; Start 02/11/21 at 17:00; Stop 02/11/21 at 17:01; Status DC Midazolam HCl 100 ml @ 1 mls/hr CONT PRN IV SEE PROTOCOL Last administered on 02/13/21at 20:58; Start 02/11/21 at 19:30 Acetaminophen (Tylenol Supp) 650 mg PRN Q6HRS PRN [place] MILD PAIN / TEMP > 100.3'F; Start 02/11/21 at 21:15 Sodium Chloride 80 meq/Potassium Chloride 50 meq/ Potassium Phosphate 13.6 mmol/Magnesium Sulfate 6 meq/ Calcium Gluconate 10 meq/ Multivitamins 5 ml/Zinc/Copper/ Manganese/ Selenium 1 ml/ Total Parenteral Nutrition/Amino Acids/Dextrose 1,512 ml @ 63 mls/hr TPN CONT IV Last administered on 02/12/21at 22:09; Start 02/12/21 at 22:00; Stop 02/13/21 at 21:59; Status DC Furosemide (Lasix) 40 mg 1X ONCE IVP Last administered on 02/12/21at 12:44; Start 02/12/21 at 12:30; Stop 02/12/21 at 12:31; Status DC Insulin Human Lispro (HumaLOG) 0-5 UNITS Q6HRS SQ Last administered on 02/18/21at 06:00; Start 02/12/21 at 12:00 Dextrose (Dextrose 50%-Water Syringe) 12.5 gm PRN Q15MIN PRN IV SEE COMMENTS; Start 02/12/21 at 12:15 Clonidine HCl (Catapres Tts-3) 1 patch WEEKLY TD Last administered on 02/13/21at 11:47; Start 02/13/21 at 11:00 Sodium Chloride 80 meq/Potassium Chloride 50 meq/ Potassium Phosphate 13.6 mmol/Magnesium Sulfate 6 meq/ Calcium Gluconate 10 meq/ Multivitamins 5 ml/Zinc/Copper/ Manganese/ Selenium 1 ml/ Total Parenteral Nutrition/Amino Acids/Dextrose 1,512 ml @ 63 mls/hr TPN CONT IV Last administered on 02/13/21at 21:42; Start 02/13/21 at 22:00; Stop 02/14/21 at 21:59; Status DC Potassium Acetate 50 meq/Potassium Phosphate 13.6 mmol/Magnesium Sulfate 6 meq/ Calcium Gluconate 10 meq/ Multivitamins 5 ml/Zinc/Copper/ Manganese/ Selenium 1 ml/ Total Parenteral Nutrition/Amino Acids/Dextrose 1,512 ml @ 63 mls/hr TPN CONT IV Last administered on 02/14/21at 21:59; Start 02/14/21 at 22:00; Stop 02/15/21 at 21:59; Status DC Insulin Glargine (Lantus Syringe) 10 unit QHS SQ Last administered on 02/15/21at 22:11; Start 02/14/21 at 21:00; Stop 02/16/21 at 12:42; Status DC Hydralazine HCl (Apresoline Inj) 10 mg PRN Q4HRS PRN IVP ELEVATED BP, SEE COMMENTS Last administered on 02/18/21at 08:54; Start 02/14/21 at 16:00 Potassium Acetate 50 meq/Potassium Phosphate 13.6 mmol/Magnesium Sulfate 6 meq/ Calcium Gluconate 10 meq/ Multivitamins 5 ml/Zinc/Copper/ Manganese/ Selenium 1 ml/ Total Parenteral Nutrition/Amino Acids/Dextrose 1,512 ml @ 63 mls/hr TPN CONT IV Last administered on 02/15/21at 22:13; Start 02/15/21 at 22:00; Stop 02/16/21 at 21:59; Status DC Dexmedetomidine HCl 400 mcg/ Sodium Chloride 100 ml @ 0 mls/hr CONT PRN IV PER PROTOCOL Last administered on 02/18/21at 04:36; Start 02/15/21 at 14:15 Sodium Chloride 500 ml @ 500 mls/hr 1X PRN PRN IV SEE COMMENTS; Start 02/15/21 at 14:15 Atropine Sulfate (ATROPINE 0.5mg SYRINGE) 0.5 mg PRN Q5MIN PRN IV SEE COMMENTS; Start 02/15/21 at 14:15 Potassium Acetate 50 meq/Potassium Phosphate 13.6 mmol/Magnesium Sulfate 6 meq/ Calcium Gluconate 10 meq/ Multivitamins 5 ml/Zinc/Copper/ Manganese/ Selenium 1 ml/ Total Parenteral Nutrition/Amino Acids/Dextrose 1,512 ml @ 63 mls/hr TPN CONT IV Last administered on 02/16/21at 22:59; Start 02/16/21 at 22:00; Stop 02/17/21 at 21:59; Status DC Insulin Glargine (Lantus Syringe) 14 unit QHS SQ Last administered on 02/16/21at 21:14; Start 02/16/21 at 21:00; Stop 02/17/21 at 14:15; Status DC Potassium Acetate 50 meq/Potassium Phosphate 13.6 mmol/Magnesium Sulfate 6 meq/ Calcium Gluconate 10 meq/ Multivitamins 5 ml/Zinc/Copper/ Manganese/ Selenium 1 ml/ Total Parenteral Nutrition/Amino Acids/Dextrose 1,512 ml @ 63 mls/hr TPN CONT IV Last administered on 02/17/21at 20:48; Start 02/17/21 at 22:00; Stop 02/18/21 at 21:59 Dextrose 1,000 ml @ 75 mls/hr [id number] IV Last administered on 02/17/21at 23:50; Start 02/17/21 at 10:30 Insulin Glargine (Lantus Syringe) 18 unit QHS SQ Last administered on 02/17/21at 20:46; Start 02/17/21 at 21:00 Vitals/I & O Vital Sign - Last 24 Hours 02/17/21 02/17/21 02/17/21 02/17/21 10:00 11:00 11:34 12:00 Temp 97.5 97.5 Pulse 52 56 51 Resp 19 17 18 B/P (MAP) 116/73 (87) 135/90 (105) 121/78 (92) Pulse Ox 99 99 100 100 O2 Delivery Ventilator Ventilator Ventilator Ventilator 02/17/21 02/17/21 02/17/21 02/17/21 12:00 13:00 13:04 14:00 Pulse 21 49 Resp 17 18 B/P (MAP) 119/77 (91) 137/84 (101) Pulse Ox 100 100 100 O2 Delivery Mechanical Ventilator Ventilator Ventilator Ventilator 02/17/21 02/17/21 02/17/21 02/17/21 15:00 15:18 15:36 16:00 Temp 97.8 97.8 Pulse 49 49 50 Resp 18 24 B/P (MAP) 168/111 (130) 168/111 124/83 (97) Pulse Ox 100 99 100 O2 Delivery Ventilator Ventilator Ventilator 02/17/21 02/17/21 02/17/21 02/17/21 16:00 17:00 17:01 18:00 Pulse 52 50 Resp 17 17 B/P (MAP) 124/86 (99) 136/90 (105) Pulse Ox 100 100 100 O2 Delivery Mechanical Ventilator Ventilator Ventilator Ventilator 02/17/21 02/17/21 02/17/21 02/17/21 19:00 20:00 20:00 21:00 Temp 97.8 97.8 Pulse 51 50 48 Resp 17 18 18 B/P (MAP) 124/81 (95) 134/79 (97) 135/62 (86) Pulse Ox 100 100 100 O2 Delivery Ventilator Mechanical Ventilator Ventilator Ventilator 02/17/21 02/17/21 02/17/21 02/17/21 21:55 22:00 23:00 23:59 Temp 98.1 98.1 Pulse 51 49 51 Resp 18 18 16 B/P (MAP) 128/69 (88) 131/90 (104) 137/91 (106) Pulse Ox 100 100 100 100 O2 Delivery Ventilator Ventilator Ventilator Ventilator 02/17/21 02/18/21 02/18/21 02/18/21 23:59 00:27 01:00 02:00 Pulse 47 47 Resp 17 18 B/P (MAP) 133/91 (105) 131/89 (103) Pulse Ox 100 100 100 O2 Delivery Mechanical Ventilator Ventilator Ventilator Ventilator 02/18/21 02/18/21 02/18/21 02/18/21 02:00 03:00 03:20 03:53 Temp 98.1 98.1 Pulse 47 42 42 Resp 17 17 16 B/P (MAP) 139/89 (106) 129/88 (102) 134/91 (105) Pulse Ox 100 100 100 100 O2 Delivery Ventilator Ventilator Ventilator Ventilator 02/18/21 02/18/21 02/18/21 02/18/21 03:57 04:58 05:00 06:01 Pulse 42 44 Resp 17 B/P (MAP) 177/91 128/92 (104) Pulse Ox 100 100 O2 Delivery Mechanical Ventilator Ventilator Ventilator 02/18/21 02/18/21 02/18/21 02/18/21 06:05 07:00 08:07 08:54 Pulse 45 44 50 Resp 17 16 B/P (MAP) 123/85 (98) 112/81 (91) 160/101 Pulse Ox 100 100 100 O2 Delivery Ventilator Ventilator Ventilator 02/18/21 09:00 O2 Delivery Mechanical Ventilator Intake and Output 02/17/21 02/17/21 02/18/21 15:00 23:00 07:00 Intake Total 96 ml 1487 ml 1486 ml Output Total 975 ml 715 ml 850 ml Balance -879 ml 772 ml 636 ml Justicifation of Admission Dx: Justifications for Admission: Justification of Admission Dx: Yes Acute Hemorrhagic Stroke: Acute Hemorrhagic Stroke LESLI ALCOCER MD Feb 18, 2021 09:43
--- NOTE | 2021-02-18 12:28 | PDOC ---
DATE OF SERVICE DATE: 02/18/21 TIME: 12:24 SUBJECTIVE ROS Remains Intubated, sedated OBJECTIVE Vital Signs Vital Signs Date Time Temp Pulse Resp B/P (MAP) Pulse Ox O2 Delivery O2 Flow Rate FiO2 02/18/21 12:03 76 199/97 02/18/21 12:01 98 Ventilator 02/18/21 10:00 37 02/18/21 08:00 97.4 97.4 I & 0 Intake and Output 02/18/21 07:00 Intake Total 3069 ml Output Total 2540 ml Balance 529 ml Intake IV Total 3069 ml Output Urine Total 2290 ml Gastric Drainage Total 250 ml PHYSICAL EXAM Physical Exam General Intubated/MV HEEN Intubated Neck Supple Lungs CTA ant CV S1 S2 Abd Soft, NT Ext No LE edema, No cyanosis Moore in place Skin No rash Neuro - exam per neurologist DIAGNOSIS/ASSESSMENT Assessment & Plan MARVIN -ATN Resolved ,Supportive care, Maintain Hydration, Electrolytes stable, Large right temporo-occipital intraparenchymal bleed, most likely lobar hemorrhage s/p craniotomy 02/09 evening HypoKalemia Corrected HypetNatremia- Milldy elevated after correcting for Glucose . Adjust in TPN Hypertensive emergency POA - Cardene gtt as indicated Acute hypoxic respiratory failure secondary to intracranial hemorrhage and hypertensive emergency. Hypoxia secondary to basilar atelectasis contributed by encephalopathy Long history of tobaccoism. CT angiogram showed bullous emphysema in the upper lobes. Nutrition - TPN COMMENT/RELEVANT DATA Meds Current Medications Medications (Trade) Dose Ordered Sig/Lorraine Start Time Stop Time Status Last Admin Dose Admin Acetaminophen (Tylenol Supp) 650 mg PRN Q6HRS PRN 02/11/21 21:15 Albuterol Sulfate (Ventolin Neb Soln) 2.5 mg PRN Q4HRS PRN 02/09/21 15:15 Atropine Sulfate (ATROPINE 0.5mg SYRINGE) 0.5 mg PRN Q5MIN PRN 02/15/21 14:15 Bupivacaine HCl/ Epinephrine Bitart (Sensorcain-Epi 0.5%-1:043735 Mpf) 30 ml STK-MED ONCE 02/09/21 16:33 02/09/21 16:33 DC 02/09/21 17:49 5 ML Cefazolin Sodium (Ancef) 1 gm STK-MED ONCE 02/09/21 17:28 02/09/21 17:28 DC Cellulose (Surgicel Hemostat 4x8) 1 each STK-MED ONCE 02/09/21 16:33 02/09/21 16:33 DC 02/09/21 18:38 1 EACH Clonidine HCl (Catapres Tts-3) 1 patch WEEKLY 02/13/21 11:00 02/13/21 11:47 1 PATCH Dexmedetomidine HCl 400 mcg/ Sodium Chloride 100 ml @ 0 mls/hr CONT PRN 02/15/21 14:15 02/18/21 11:53 23.4 MLS/HR Dextrose 1,000 ml @ 75 mls/hr [id number] 02/17/21 10:30 02/17/21 23:50 75 MLS/HR Dextrose (Dextrose 50%-Water Syringe) 12.5 gm PRN Q15MIN PRN 02/12/21 12:15 Fentanyl Citrate 55 ml @ 0 mls/hr CONT PRN 02/10/21 05:00 02/16/21 11:11 0.5 MLS/HR Fentanyl Citrate (Fentanyl 2ml Vial) 100 mcg STK-MED ONCE 02/09/21 17:43 02/09/21 17:43 DC Furosemide (Lasix) 40 mg 1X ONCE 02/12/21 12:30 02/12/21 12:31 DC 02/12/21 12:44 40 MG Gelatin (Gelfoam Size 100) 1 each STK-MED ONCE 02/09/21 16:33 02/09/21 16:33 DC 02/09/21 17:49 1 EACH Hydralazine HCl (Apresoline Inj) 10 mg PRN Q4HRS PRN 02/14/21 16:00 02/18/21 12:03 10 MG Info (CONTRAST GIVEN -- Rx MONITORING) 1 each PRN DAILY PRN 02/09/21 15:45 02/11/21 15:44 DC Info (Review Meds) 1 ea PRN 1X PRN 02/09/21 15:00 Info (Tpn Per Pharmacy) 1 each PRN DAILY PRN 02/11/21 11:15 02/17/21 09:39 1 EACH Insulin Glargine (Lantus Syringe) 22 unit QHS 02/18/21 21:00 Insulin Human Lispro (HumaLOG) 0-5 UNITS Q6HRS 02/12/21 12:00 02/18/21 11:19 4 UNITS Iohexol (Omnipaque 350 Mg/ml) 100 ml STK-MED ONCE 02/09/21 15:26 02/09/21 15:27 DC Labetalol HCl (Normodyne Iv Push) 10 mg PRN Q2HR PRN 02/09/21 06:15 02/15/21 10:49 10 MG Lidocaine HCl (Buffered Lidocaine 1%) 6 ml 1X ONCE 02/10/21 13:45 02/10/21 13:46 DC 02/10/21 13:57 3 ML Lidocaine HCl (Lidocaine HCl 2% Abboject) 100 mg 1X ONCE 02/09/21 17:15 02/09/21 17:16 DC Lorazepam (Ativan Inj) 2 mg 1X ONCE 02/09/21 11:00 02/09/21 11:01 DC 02/09/21 11:00 2 MG Midazolam HCl 100 ml @ 1 mls/hr CONT PRN 02/11/21 19:30 02/13/21 20:58 5 MLS/HR Nicardipine HCl 50 mg/Sodium Chloride 250 ml @ 12.5 mls/hr CONT PRN 02/09/21 06:15 02/16/21 14:00 50 MLS/HR Pantoprazole Sodium (PROTONIX VIAL for IV PUSH) 40 mg DAILYAC 02/10/21 09:00 02/18/21 08:51 40 MG Piperacillin Sod/ Tazobactam Sod 3.375 gm/Sodium Chloride 50 ml @ 100 mls/hr Q6HRS 02/11/21 09:00 02/18/21 11:11 100 MLS/HR Potassium Chloride/Dextrose/ Sod Cl 1,000 ml @ 80 mls/hr [id number] 02/10/21 09:00 02/10/21 13:21 DC Potassium Chloride/Water 100 ml @ 100 mls/hr Q1H 02/11/21 08:00 02/11/21 09:59 DC 02/11/21 10:07 100 MLS/HR Potassium Acetate 50 meq/Potassium Phosphate 13.6 mmol/Magnesium Sulfate 6 meq/ Calcium Gluconate 10 meq/ Multivitamins 5 ml/Zinc/Copper/ Manganese/ Selenium 1 ml/ Total Parenteral Nutrition/Amino Acids/Dextrose 1,512 ml @ 63 mls/hr TPN CONT 02/17/21 22:00 02/18/21 21:59 02/17/21 20:48 63 MLS/HR Propofol 100 ml @ 0 mls/hr CONT PRN PRN 02/09/21 17:15 02/10/21 05:14 DC Propofol (Diprivan) 200 mg 1X ONCE 02/09/21 17:15 02/09/21 17:16 DC Rocuronium [place] (Zemuron) 100 mg STK-MED ONCE 02/09/21 17:58 02/09/21 17:59 DC Sevoflurane (Ultane) 90 ml STK-MED ONCE 02/09/21 19:20 02/09/21 19:21 DC Sodium Chloride 500 ml @ 500 mls/hr 1X PRN PRN 02/15/21 14:15 Sodium Chloride (SODIUM CHLORIDE 20ml) 20 ml STK-MED ONCE 02/09/21 18:50 02/09/21 18:50 DC Sodium Chloride 80 meq/Potassium Chloride 50 meq/ Potassium Phosphate 13.6 mmol/Magnesium Sulfate 6 meq/ Calcium Gluconate 10 meq/ Multivitamins 5 ml/Zinc/Copper/ Manganese/ Selenium 1 ml/ Total Parenteral Nutrition/Amino Acids/Dextrose 1,512 ml @ 63 mls/hr TPN CONT 02/13/21 22:00 02/14/21 21:59 DC 02/13/21 21:42 63 MLS/HR Sodium Chloride 90 meq/Potassium Chloride 50 meq/ Potassium Phosphate 13.6 mmol/Magnesium Sulfate 10 meq/ Calcium Gluconate 10 meq/ Multivitamins 5 ml/Zinc/Copper/ Manganese/ Selenium 1 ml/ Total Parenteral Nutrition/Amino Acids/Dextrose 1,512 ml @ 63 mls/hr TPN CONT 02/11/21 22:00 02/12/21 21:59 DC 02/11/21 22:32 63 MLS/HR Thrombin 20,000 unit STK-MED ONCE 02/09/21 16:33 02/09/21 16:33 DC 02/09/21 17:49 20,000 UNIT Vecuronium [place] (Norcuron Bolus) 10 mg STK-MED ONCE 02/09/21 18:49 02/09/21 18:50 DC Lab Laboratory Tests Test 02/17/21 17:45 02/17/21 20:45 02/18/21 00:26 02/18/21 05:15 Glucose (Fingerstick) 293 mg/dL (70-99) 310 mg/dL (70-99) 279 mg/dL (70-99) White Blood Count 6.7 x10^3/uL (4.0-11.0) Red Blood Count 3.90 x10^6/uL (4.30-5.70) Hemoglobin 11.5 g/dL (13.0-17.5) Hematocrit 35.9 % (39.0-53.0) Mean Corpuscular Volume 92 fL (79-100) Mean Corpuscular Hemoglobin 30 pg (25-35) Mean Corpuscular Hemoglobin Concent 32 g/dL (31-37) Red Cell Distribution Width 14.1 % (11.5-14.5) Platelet Count 241 x10^3/uL (140-400) Neutrophils (%) (Auto) 67 % (31-73) Lymphocytes (%) (Auto) 21 % (24-48) Monocytes (%) (Auto) 10 % (0-9) Eosinophils (%) (Auto) 2 % (0-3) Basophils (%) (Auto) 0 % (0-3) Neutrophils # (Auto) 4.4 x10^3/uL (1.8-7.7) Lymphocytes # (Auto) 1.4 x10^3/uL (1.0-4.8) Monocytes # (Auto) 0.6 x10^3/uL (0.0-1.1) Eosinophils # (Auto) 0.2 x10^3/uL (0.0-0.7) Basophils # (Auto) 0.0 x10^3/uL (0.0-0.2) Sodium Level 143 mmol/L (136-145) Potassium Level 4.4 mmol/L (3.5-5.1) Chloride Level 109 mmol/L (98-107) Carbon Dioxide Level 26 mmol/L (21-32) Anion Gap 8 (6-14) Blood Urea Nitrogen 26 mg/dL (8-26) Creatinine 0.9 mg/dL (0.7-1.3) Estimated GFR (Cockcroft-Gault) 104.2 Glucose Level 335 mg/dL (70-99) Calcium Level 9.3 mg/dL (8.5-10.1) Phosphorus Level 4.5 mg/dL (2.6-4.7) Magnesium Level 2.1 mg/dL (1.8-2.4) Test 02/18/21 06:02 02/18/21 11:17 Glucose (Fingerstick) 323 mg/dL (70-99) 282 mg/dL (70-99) Results All relevant outside records, renal labs, imaging studies, telemetry/EKG's were reviewed. Justicifation of Admission Dx: Justifications for Admission: Justification of Admission Dx: Yes Acute Hemorrhagic Stroke: Acute Hemorrhagic Stroke YULIA CAMACHO MD Feb 18, 2021 12:28
[2021-02-18 13:48] LABS: BARBITURATES NEG (NEG); BENZODIAZEPINES POS (NEG); CANNABINOIDS NEG (NEG); COCAINE NEG (NEG); METHADONE NEG (NEG); OPIATES NEG (NEG); PHENCYCLIDINE NEG (NEG)
[2021-02-18] MEDS: IV DEXTROSE 5% 1,000 ML IV SCH (13:51)
[2021-02-18 13:56] LABS: AMPHETAMINE/METHAMPHETAMINE NEG (NEG)
[2021-02-18] MEDS: TPN PER PHARMACY MC PRN (14:17)
--- NOTE | 2021-02-18 14:18 | NUR ---
Pharmacy TPN Dosing Note S: COOPER CHAVEZ is a 61 year old M Currently receiving Central Continuous TPN started 02/11/21 B:Pertinent PMH: ILEUS, UNABLE TO START TUBE FEEDS Height: 6 feet, 2 inches Weight: 115.0 kg Current diet: NPO LABS: Sodium: 143 Potassium: 4.4 Chloride: 109 Calcium: 9.3 Corrected Calcium: 9.78 Magnesium: 2.1 CO2: 26 SCr: 0.9 Glucose: 323, 282 Albumin: 3.4 AST: 17 ALT: 21 TPN FORMULA: TPN TYPE: Central Continuous AMINO ACIDS: 60 gm DEXTROSE: 195 gm POTASSIUM ACETATE: 50 mEq POTASSIUM PHOSPHATE: 13.6 mmol MAGNESIUM: 6 mEq CALCIUM: 10 mEq MULTIPLE VITAMIN: 5 ml TRACE ELEMENTS: 1 ml TPN PLAN: -Serum sodium improved with addition of D5W infusion. -Other electrolytes appear WNL and stable. -BMP, albumin, phos tomorrow. R: Continue TPN @ current rate and above formula. Will monitor electrolytes, glucose, and tolerance to TPN. ODELL SALINAS [facility], 02/18/21 [id number]
--- NOTE | 2021-02-18 14:39 | PDOC ---
PROGRESS NOTES Date of Service DATE: 02/18/21 TIME: 14:38 Assessment Large right temporo-occipital intraparenchymal bleed, most likely lobar hemorrhage from hypertension, consider venous sinus thrombosis, less likely in this location, aneurysmal bleed, head trauma (also unlikely). CT angiogram was negative. Follow-up head CT 02/13 showing expected evolution of the hemorrhage. Had craniotomy 02/09 evening Suspected aspiration, respiratory failure, hypertension, chronic obstructive pulmonary disease, improving acute kidney injury Agitated, difficult to wean sedation. Becomes tachypneic without sedation, but otherwise is weanable, nurse tells me Plan Will follow Follow-up head CT on 02/20 Neurology will follow at intervals Subjective None Objective Vital Signs Date Time Temp Pulse Resp B/P (MAP) Pulse Ox O2 Delivery O2 Flow Rate FiO2 02/18/21 13:57 98 Ventilator 02/18/21 12:03 76 199/97 02/18/21 12:00 98.5 28 98.5 Intake and Output 02/18/21 06:59 Intake Total 3069 ml Output Total 2540 ml Balance 529 ml Intake IV Total 3069 ml Output Urine Total 2290 ml Gastric Drainage Total 250 ml PHYSICAL EXAM Sedated on vent, not responsive Pupils small, minimally reactive No spontaneous eye movements CN: no focal findings. Muscle tone: normal. Muscle strength: no response to pain DTR: 0+ Plantar reflex: silent Gait: not examined Sensory exam: not cooperative. Cerebellar: not cooperative Review of Relevant I have reviewed the following items neela (where applicable) has been applied. Labs Laboratory Tests Test 02/16/21 17:33 02/16/21 21:11 02/16/21 23:47 02/17/21 05:00 Glucose (Fingerstick) 286 mg/dL (70-99) 258 mg/dL (70-99) 248 mg/dL (70-99) White Blood Count 7.5 x10^3/uL (4.0-11.0) Red Blood Count 3.93 x10^6/uL (4.30-5.70) Hemoglobin 11.8 g/dL (13.0-17.5) Hematocrit 36.3 % (39.0-53.0) Mean Corpuscular Volume 92 fL (79-100) Mean Corpuscular Hemoglobin 30 pg (25-35) Mean Corpuscular Hemoglobin Concent 32 g/dL (31-37) Red Cell Distribution Width 13.9 % (11.5-14.5) Platelet Count 231 x10^3/uL (140-400) Sodium Level 150 mmol/L (136-145) Potassium Level 4.2 mmol/L (3.5-5.1) Chloride Level 113 mmol/L (98-107) Carbon Dioxide Level 27 mmol/L (21-32) Anion Gap 10 (6-14) Blood Urea Nitrogen 27 mg/dL (8-26) Creatinine 0.9 mg/dL (0.7-1.3) Estimated GFR (Cockcroft-Gault) 104.2 Glucose Level 275 mg/dL (70-99) Calcium Level 9.5 mg/dL (8.5-10.1) Phosphorus Level 3.8 mg/dL (2.6-4.7) Magnesium Level 2.2 mg/dL (1.8-2.4) Test 02/17/21 05:09 02/17/21 08:00 02/17/21 12:24 02/17/21 17:45 Glucose (Fingerstick) 257 mg/dL (70-99) 305 mg/dL (70-99) 293 mg/dL (70-99) O2 Saturation 97 % (92-99) Arterial Blood pH 7.40 (7.35-7.45) Arterial Blood pCO2 at Patient Temp 39 mmHg (35-46) Arterial Blood pO2 at Patient Temp 96 mmHg (65-108) Arterial Blood HCO3 24 mmol/L (21-28) Arterial Blood Base Excess -1 mmol/L (-3-3) FiO2 40%+6 Test 02/17/21 20:45 02/18/21 00:26 02/18/21 05:15 02/18/21 06:02 Glucose (Fingerstick) 310 mg/dL (70-99) 279 mg/dL (70-99) 323 mg/dL (70-99) White Blood Count 6.7 x10^3/uL (4.0-11.0) Red Blood Count 3.90 x10^6/uL (4.30-5.70) Hemoglobin 11.5 g/dL (13.0-17.5) Hematocrit 35.9 % (39.0-53.0) Mean Corpuscular Volume 92 fL (79-100) Mean Corpuscular Hemoglobin 30 pg (25-35) Mean Corpuscular Hemoglobin Concent 32 g/dL (31-37) Red Cell Distribution Width 14.1 % (11.5-14.5) Platelet Count 241 x10^3/uL (140-400) Neutrophils (%) (Auto) 67 % (31-73) Lymphocytes (%) (Auto) 21 % (24-48) Monocytes (%) (Auto) 10 % (0-9) Eosinophils (%) (Auto) 2 % (0-3) Basophils (%) (Auto) 0 % (0-3) Neutrophils # (Auto) 4.4 x10^3/uL (1.8-7.7) Lymphocytes # (Auto) 1.4 x10^3/uL (1.0-4.8) Monocytes # (Auto) 0.6 x10^3/uL (0.0-1.1) Eosinophils # (Auto) 0.2 x10^3/uL (0.0-0.7) Basophils # (Auto) 0.0 x10^3/uL (0.0-0.2) Sodium Level 143 mmol/L (136-145) Potassium Level 4.4 mmol/L (3.5-5.1) Chloride Level 109 mmol/L (98-107) Carbon Dioxide Level 26 mmol/L (21-32) Anion Gap 8 (6-14) Blood Urea Nitrogen 26 mg/dL (8-26) Creatinine 0.9 mg/dL (0.7-1.3) Estimated GFR (Cockcroft-Gault) 104.2 Glucose Level 335 mg/dL (70-99) Calcium Level 9.3 mg/dL (8.5-10.1) Phosphorus Level 4.5 mg/dL (2.6-4.7) Magnesium Level 2.1 mg/dL (1.8-2.4) Test 02/18/21 11:17 02/18/21 12:30 Glucose (Fingerstick) 282 mg/dL (70-99) Troponin I Quantitative 1.135 ng/mL (0.000-0.055) Urine Opiates Screen Neg (NEG) Urine Methadone Screen Neg (NEG) Urine Barbiturates Neg (NEG) Urine Phencyclidine Screen Neg (NEG) Urine Amphetamine/Methamphetamine Neg (NEG) Urine Benzodiazepines Screen Pos (NEG) Urine Cocaine Screen Neg (NEG) Urine Cannabinoids Screen Neg (NEG) Urine Ethyl Alcohol Neg (NEG) Laboratory Tests Test 02/17/21 17:45 02/17/21 20:45 02/18/21 00:26 02/18/21 05:15 Glucose (Fingerstick) 293 mg/dL (70-99) 310 mg/dL (70-99) 279 mg/dL (70-99) White Blood Count 6.7 x10^3/uL (4.0-11.0) Red Blood Count 3.90 x10^6/uL (4.30-5.70) Hemoglobin 11.5 g/dL (13.0-17.5) Hematocrit 35.9 % (39.0-53.0) Mean Corpuscular Volume 92 fL (79-100) Mean Corpuscular Hemoglobin 30 pg (25-35) Mean Corpuscular Hemoglobin Concent 32 g/dL (31-37) Red Cell Distribution Width 14.1 % (11.5-14.5) Platelet Count 241 x10^3/uL (140-400) Neutrophils (%) (Auto) 67 % (31-73) Lymphocytes (%) (Auto) 21 % (24-48) Monocytes (%) (Auto) 10 % (0-9) Eosinophils (%) (Auto) 2 % (0-3) Basophils (%) (Auto) 0 % (0-3) Neutrophils # (Auto) 4.4 x10^3/uL (1.8-7.7) Lymphocytes # (Auto) 1.4 x10^3/uL (1.0-4.8) Monocytes # (Auto) 0.6 x10^3/uL (0.0-1.1) Eosinophils # (Auto) 0.2 x10^3/uL (0.0-0.7) Basophils # (Auto) 0.0 x10^3/uL (0.0-0.2) Sodium Level 143 mmol/L (136-145) Potassium Level 4.4 mmol/L (3.5-5.1) Chloride Level 109 mmol/L (98-107) Carbon Dioxide Level 26 mmol/L (21-32) Anion Gap 8 (6-14) Blood Urea Nitrogen 26 mg/dL (8-26) Creatinine 0.9 mg/dL (0.7-1.3) Estimated GFR (Cockcroft-Gault) 104.2 Glucose Level 335 mg/dL (70-99) Calcium Level 9.3 mg/dL (8.5-10.1) Phosphorus Level 4.5 mg/dL (2.6-4.7) Magnesium Level 2.1 mg/dL (1.8-2.4) Test 02/18/21 06:02 02/18/21 11:17 02/18/21 12:30 Glucose (Fingerstick) 323 mg/dL (70-99) 282 mg/dL (70-99) Troponin I Quantitative 1.135 ng/mL (0.000-0.055) Urine Opiates Screen Neg (NEG) Urine Methadone Screen Neg (NEG) Urine Barbiturates Neg (NEG) Urine Phencyclidine Screen Neg (NEG) Urine Amphetamine/Methamphetamine Neg (NEG) Urine Benzodiazepines Screen Pos (NEG) Urine Cocaine Screen Neg (NEG) Urine Cannabinoids Screen Neg (NEG) Urine Ethyl Alcohol Neg (NEG) Microbiology 02/11/21 Blood Culture - Final, Complete NO GROWTH AFTER 5 DAYS 02/11/21 Gram Stain Evaluation - Final, Complete 02/11/21 Respiratory Culture - Final, Complete Medications Current Medications Nicardipine HCl 50 mg/Sodium Chloride 250 ml @ 12.5 mls/hr CONT PRN IV SEE I/O RECORD Last administered on 02/16/21at 14:00; Start 02/09/21 at 06:15 Labetalol HCl (Normodyne Iv Push) 10 mg PRN Q2HR PRN IVP HYPERTENSION Last administered on 02/15/21at 10:49; Start 02/09/21 at 06:15 Lorazepam (Ativan Inj) 2 mg 1X ONCE IVP Last administered on 02/09/21at 10:54; Start 02/09/21 at 10:45; Stop 02/09/21 at 10:46; Status DC Lorazepam (Ativan Inj) 2 mg 1X ONCE IVP Last administered on 02/09/21at 11:00; Start 02/09/21 at 11:00; Stop 02/09/21 at 11:01; Status DC Fentanyl Citrate (Fentanyl 2ml Vial) 25 mcg PRN Q2HR PRN IVP MODERATE TO SEVERE PAIN Last administered on 02/09/21at 13:37; Start 02/09/21 at 13:30 Info (Review Meds) 1 ea PRN 1X PRN MC SEE COMMENTS; Start 02/09/21 at 15:00 Acetaminophen (Tylenol Supp) [address]N Q6HRS PRN CT FEVER > 100.5'F or 38'C; Start 02/09/21 at 15:00; Stop 02/11/21 at 21:12; Status DC Albuterol Sulfate (Ventolin Neb Soln) 2.5 mg PRN Q4HRS PRN NEB SHORTNESS OF BREATH; Start 02/09/21 at 15:15 Iohexol (Omnipaque 350 Mg/ml) 75 ml 1X ONCE IV Last administered on 02/09/21at 15:52; Start 02/09/21 at 15:30; Stop 02/09/21 at 15:35; Status DC Iohexol (Omnipaque 350 Mg/ml) 100 ml STK-MED ONCE .ROUTE ; Start 02/09/21 at 15:26; Stop 02/09/21 at 15:27; Status DC Info (CONTRAST GIVEN -- Rx MONITORING) 1 each PRN DAILY PRN MC SEE COMMENTS; Start 02/09/21 at 15:45; Stop 02/11/21 at 15:44; Status DC Propofol 100 ml @ As Directed STK-MED ONCE IV ; Start 02/09/21 at 15:51; Stop 02/09/21 at 15:51; Status DC Rocuronium Lolita (Zemuron) 50 mg STK-MED ONCE .ROUTE ; Start 02/09/21 at 15:51; Stop 02/09/21 at 15:51; Status DC Lidocaine HCl (Lidocaine HCl 2% Abboject) 100 mg STK-MED ONCE .ROUTE ; Start 02/09/21 at 15:52; Stop 02/09/21 at 15:53; Status DC Propofol 100 ml @ 3.507 mls/ hr CONT PRN IV PER PROTOCOL Last administered on 02/18/21at 12:49; Start 02/09/21 at 16:15 Lidocaine HCl (Lidocaine HCl 2% Abboject) 100 mg 1X ONCE IV Last administered on 02/09/21at 16:17; Start 02/09/21 at 16:15; Stop 02/09/21 at 16:17; Status DC Rocuronium Lolita (Zemuron) 50 mg 1X ONCE IV Last administered on 02/09/21 16:17; Start 02/09/21 at 16:15; Stop 02/09/21 at 16:17; Status DC Rocuronium Lolita (Zemuron) 100 mg STK-MED ONCE .ROUTE ; Start 02/09/21 at 16:31; Stop 02/09/21 at 16:32; Status DC Gelatin (Gelfoam Size 100) 1 each STK-MED ONCE .ROUTE Last administered on 02/09/21 17:49; Start 02/09/21 at 16:33; Stop 02/09/21 at 16:33; Status DC Bupivacaine HCl/ Epinephrine Bitart (Sensorcain-Epi 0.5%-1:[id number] Mpf) 30 ml STK-MED ONCE .ROUTE Last administered on 02/09/21 17:49; Start 02/09/21 at 16:33; Stop 02/09/21 at 16:33; Status DC Cellulose (Surgicel Hemostat 4x8) 1 each STK-MED ONCE .ROUTE Last administered on 02/09/21 18:38; Start 02/09/21 at 16:33; Stop 02/09/21 at 16:33; Status DC Thrombin 20,000 unit STK-MED ONCE TP Last administered on 02/09/21 17:49; Start 02/09/21 at 16:33; Stop 02/09/21 at 16:33; Status DC Fentanyl Citrate (Fentanyl 2ml Vial) 75 mcg 1X ONCE IVP Last administered on 02/09/21at 16:45; Start 02/09/21 at 16:45; Stop 02/09/21 at 16:47; Status DC Propofol (Diprivan) 200 mg 1X ONCE IV ; Start 02/09/21 at 17:15; Stop 02/09/21 at 17:16; Status DC Lidocaine HCl (Lidocaine HCl 2% Abboject) 100 mg 1X ONCE IV ; Start 02/09/21 at 17:15; Stop 02/09/21 at 17:16; Status DC Rocuronium Lolita (Zemuron) 50 mg 1X ONCE IV ; Start 02/09/21 at 17:15; Stop 02/09/21 at 17:16; Status DC Propofol 100 ml @ 0 mls/hr CONT PRN PRN IV SEDATION; Start 02/09/21 at 17:15; Stop 02/10/21 at 05:14; Status DC Cefazolin Sodium (Ancef) 1 gm STK-MED ONCE IVP ; Start 02/09/21 at 17:28; Stop 02/09/21 at 17:28; Status DC Fentanyl Citrate (Fentanyl 2ml Vial) 100 mcg STK-MED ONCE .ROUTE ; Start 02/09/21 at 17:43; Stop 02/09/21 at 17:43; Status DC Rocuronium Lolita (Zemuron) 100 mg STK-MED ONCE .ROUTE ; Start 02/09/21 at 17:58; Stop 02/09/21 at 17:59; Status DC Vecuronium Lolita (Norcuron Bolus) 10 mg STK-MED ONCE IV ; Start 02/09/21 at 18:49; Stop 02/09/21 at 18:50; Status DC Sodium Chloride (SODIUM CHLORIDE 20ml) 20 ml STK-MED ONCE IJ ; Start 02/09/21 at 18:50; Stop 02/09/21 at 18:50; Status DC Sevoflurane (Ultane) 90 ml STK-MED ONCE IH ; Start 02/09/21 at 19:20; Stop 02/09/21 at 19:21; Status DC Fentanyl Citrate 30 ml @ 2.5 mls/hr CONT PRN IV SEE PROTOCOL Last administered on 02/09/21at 23:40; Start 02/09/21 at 23:15; Stop 02/10/21 at 04:43; Status DC Fentanyl Citrate 55 ml @ 0 mls/hr CONT PRN IV SEE I/O Last administered on 02/16at 11:11; Start 02/10/21 at 05:00 Potassium Chloride/Dextrose/ Sod Cl 1,000 ml @ 80 mls/hr [id number] IV ; Start 02/10/21 at 09:00; Stop 02/10/21 at 13:21; Status DC Pantoprazole Sodium (PROTONIX VIAL for IV PUSH) 40 mg DAILYAC IVP Last administered on 02/18/21at 08:51; Start 02/10/21 at 09:00 Lidocaine HCl (Buffered Lidocaine 1%) 3 ml STK-MED ONCE .ROUTE ; Start 02/10/21 at 13:18; Stop 02/10/21 at 13:18; Status DC Sodium Chloride 1,000 ml @ 80 mls/hr [id number] IV Last administered on 02/12/21at 03:00; Start 02/10/21 at 13:30; Stop 02/12/21 at 15:36; Status DC Lidocaine HCl (Buffered Lidocaine 1%) 6 ml 1X ONCE INJ Last administered on 02/10/21at 13:57; Start 02/10/21 at 13:45; Stop 02/10/21 at 13:46; Status DC Potassium Chloride/Water 100 ml @ 100 mls/hr Q1H IV Last administered on 02/11/21at 10:07; Start 02/11/21 at 08:00; Stop 02/11/21 at 09:59; Status DC Piperacillin Sod/ Tazobactam Sod 3.375 gm/Sodium Chloride 50 ml @ 100 mls/hr Q6HRS IV Last administered on 02/18/21at 11:11; Start 02/11/21 at 09:00 Info (Tpn Per Pharmacy) 1 each PRN DAILY PRN MC SEE COMMENTS Last administered on 02/18/21at 14:17; Start 02/11/21 at 11:15 Sodium Chloride 90 meq/Potassium Chloride 50 meq/ Potassium Phosphate 13.6 mmol/Magnesium Sulfate 10 meq/ Calcium Gluconate 10 meq/ Multivitamins 5 ml/Zinc/Copper/ Manganese/ Selenium 1 ml/ Total Parenteral Nutrition/Amino Acids/Dextrose 1,512 ml @ 63 mls/hr TPN CONT IV Last administered on 02/11/21at 22:32; Start 02/11/21 at 22:00; Stop 02/12/21 at 21:59; Status DC Furosemide (Lasix) 20 mg 1X ONCE IVP Last administered on 02/11/21at 15:11; Start 02/11/21 at 15:30; Stop 02/11/21 at 15:31; Status DC Furosemide (Lasix) 20 mg 1X ONCE IVP Last administered on 02/11/21at 17:00; Start 02/11/21 at 17:00; Stop 02/11/21 at 17:01; Status DC Midazolam HCl 100 ml @ 1 mls/hr CONT PRN IV SEE PROTOCOL Last administered on 02/13/21at 20:58; Start 02/11/21 at 19:30 Acetaminophen (Tylenol Supp) 650 [address]N Q6HRS PRN CT MILD PAIN / TEMP > 100.3'F; Start 02/11/21 at 21:15 Sodium Chloride 80 meq/Potassium Chloride 50 meq/ Potassium Phosphate 13.6 mmol/Magnesium Sulfate 6 meq/ Calcium Gluconate 10 meq/ Multivitamins 5 ml/Zinc/Copper/ Manganese/ Selenium 1 ml/ Total Parenteral Nutrition/Amino Acids/Dextrose 1,512 ml @ 63 mls/hr TPN CONT IV Last administered on 02/12/21at 22:09; Start 02/12/21 at 22:00; Stop 02/13/21 at 21:59; Status DC Furosemide (Lasix) 40 mg 1X ONCE IVP Last administered on 02/12/21at 12:44; Start 02/12/21 at 12:30; Stop 02/12/21 at 12:31; Status DC Insulin Human Lispro (HumaLOG) 0-5 UNITS Q6HRS SQ Last administered on 02/18/21at 11:19; Start 02/12/21 at 12:00 Dextrose (Dextrose 50%-Water Syringe) 12.5 gm PRN Q15MIN PRN IV SEE COMMENTS; Start 02/12/21 at 12:15 Clonidine HCl (Catapres Tts-3) 1 patch WEEKLY TD Last administered on 02/13/21at 11:47; Start 02/13/21 at 11:00 Sodium Chloride 80 meq/Potassium Chloride 50 meq/ Potassium Phosphate 13.6 mmol/Magnesium Sulfate 6 meq/ Calcium Gluconate 10 meq/ Multivitamins 5 ml/Zinc/Copper/ Manganese/ Selenium 1 ml/ Total Parenteral Nutrition/Amino A cids/Dextrose 1,512 ml @ 63 mls/hr TPN CONT IV Last administered on 02/13/21at 21:42; Start 02/13/21 at 22:00; Stop 02/14/21 at 21:59; Status DC Potassium Acetate 50 meq/Potassium Phosphate 13.6 mmol/Magnesium Sulfate 6 meq/ Calcium Gluconate 10 meq/ Multivitamins 5 ml/Zinc/Copper/ Manganese/ Selenium 1 ml/ Total Parenteral Nutrition/Amino Acids/Dextrose 1,512 ml @ 63 mls/hr TPN CONT IV Last administered on 02/14/21at 21:59; Start 02/14/21 at 22:00; Stop 02/15/21 at 21:59; Status DC Insulin Glargine (Lantus Syringe) 10 unit QHS SQ Last administered on 02/15/21at 22:11; Start 02/14/21 at 21:00; Stop 02/16/21 at 12:42; Status DC Hydralazine HCl (Apresoline Inj) 10 mg PRN Q4HRS PRN IVP ELEVATED BP, SEE COMMENTS Last administered on 02/18/21at 12:03; Start 02/14/21 at 16:00 Potassium Acetate 50 meq/Potassium Phosphate 13.6 mmol/Magnesium Sulfate 6 meq/ Calcium Gluconate 10 meq/ Multivitamins 5 ml/Zinc/Copper/ Manganese/ Selenium 1 ml/ Total Parenteral Nutrition/Amino Acids/Dextrose 1,512 ml @ 63 mls/hr TPN CONT IV Last administered on 02/15/21at 22:13; Start 02/15/21 at 22:00; Stop 02/16/21 at 21:59; Status DC Dexmedetomidine HCl 400 mcg/ Sodium Chloride 100 ml @ 0 mls/hr CONT PRN IV PER PROTOCOL Last administered on 02/18/21at 11:53; Start 02/15/21 at 14:15 Sodium Chloride 500 ml @ 500 mls/hr 1X PRN PRN IV SEE COMMENTS; Start 02/15/21 at 14:15 Atropine Sulfate (ATROPINE 0.5mg SYRINGE) 0.5 mg PRN Q5MIN PRN IV SEE COMMENTS; Start 02/15/21 at 14:15 Potassium Acetate 50 meq/Potassium Phosphate 13.6 mmol/Magnesium Sulfate 6 meq/ Calcium Gluconate 10 meq/ Multivitamins 5 ml/Zinc/Copper/ Manganese/ Selenium 1 ml/ Total Parenteral Nutrition/Amino Acids/Dextrose 1,512 ml @ 63 mls/hr TPN CONT IV Last administered on 02/16/21at 22:59; Start 02/16/21 at 22:00; Stop 02/17/21 at 21:59; Status DC Insulin Glargine (Lantus Syringe) 14 unit QHS SQ Last administered on 02/16/21at 21:14; Start 02/16/21 at 21:00; Stop 02/17/21 at 14:15; Status DC Potassium Acetate 50 meq/Potassium Phosphate 13.6 mmol/Magnesium Sulfate 6 meq/ Calcium Gluconate 10 meq/ Multivitamins 5 ml/Zinc/Copper/ Manganese/ Selenium 1 ml/ Total Parenteral Nutrition/Amino Acids/Dextrose 1,512 ml @ 63 mls/hr TPN CONT IV Last administered on 02/17/21at 20:48; Start 02/17/21 at 22:00; Stop 02/18/21 at 21:59 Dextrose 1,000 ml @ 75 mls/hr [id number] IV Last administered on 02/18/21at 13:51; Start 02/17/21 at 10:30 Insulin Glargine (Lantus Syringe) 18 unit QHS SQ Last administered on 02/17/21at 20:46; Start 02/17/21 at 21:00; Stop 02/18/21 at 11:56; Status DC Insulin Glargine (Lantus Syringe) 22 unit QHS SQ ; Start 02/18/21 at 21:00 Potassium Acetate 50 meq/Potassium Phosphate 13.6 mmol/Magnesium Sulfate 6 meq/ Calcium Gluconate 10 meq/ Multivitamins 5 ml/Zinc/Copper/ Manganese/ Selenium 1 ml/ Total Parenteral Nutrition/Amino Acids/Dextrose 1,512 ml @ 63 mls/hr TPN CONT IV ; Start 02/18/21 at 22:00; Stop 02/19/21 at 21:59 Vitals/I & O Vital Sign - Last 24 Hours 02/17/21 02/17/21 02/17/21 02/17/21 15:00 15:18 15:36 16:00 Temp 97.8 97.8 Pulse 49 49 50 Resp 18 24 B/P (MAP) 168/111 (130) 168/111 124/83 (97) Pulse Ox 100 99 100 O2 Delivery Ventilator Ventilator Ventilator 02/17/21 02/17/21 02/17/21 02/17/21 16:00 17:00 17:01 18:00 Pulse 52 50 Resp 17 17 B/P (MAP) 124/86 (99) 136/90 (105) Pulse Ox 100 100 100 O2 Delivery Mechanical Ventilator Ventilator Ventilator Ventilator 02/17/21 02/17/21 02/17/21 02/17/21 19:00 20:00 20:00 21:00 Temp 97.8 97.8 Pulse 51 50 48 Resp 17 18 18 B/P (MAP) 124/81 (95) 134/79 (97) 135/62 (86) Pulse Ox 100 100 100 O2 Delivery Ventilator Mechanical Ventilator Ventilator Ventilator 02/17/21 02/17/21 02/17/21 02/17/21 21:55 22:00 23:00 23:59 Temp 98.1 98.1 Pulse 51 49 51 Resp 18 18 16 B/P (MAP) 128/69 (88) 131/90 (104) 137/91 (106) Pulse Ox 100 100 100 100 O2 Delivery Ventilator Ventilator Ventilator Ventilator 02/17/21 02/18/21 02/18/21 02/18/21 23:59 00:27 01:00 02:00 Pulse 47 47 Resp 17 18 B/P (MAP) 133/91 (105) 131/89 (103) Pulse Ox 100 100 100 O2 Delivery Mechanical Ventilator Ventilator Ventilator Ventilator 02/18/21 02/18/21 02/18/21 02/18/21 02:00 03:00 03:20 03:53 Temp 98.1 98.1 Pulse 47 42 42 Resp 17 17 16 B/P (MAP) 139/89 (106) 129/88 (102) 134/91 (105) Pulse Ox 100 100 100 100 O2 Delivery Ventilator Ventilator Ventilator Ventilator 02/18/21 02/18/21 02/18/21 02/18/21 03:57 04:58 05:00 06:01 Pulse 42 44 Resp 17 B/P (MAP) 177/91 128/92 (104) Pulse Ox 100 100 O2 Delivery Mechanical Ventilator Ventilator Ventilator 02/18/21 02/18/21 02/18/21 02/18/21 06:05 07:00 08:00 08:07 Temp 97.4 97.4 Pulse 45 44 42 Resp 17 16 25 B/P (MAP) 123/85 (98) 112/81 (91) 116/83 (94) Pulse Ox 100 100 100 100 O2 Delivery Ventilator Ventilator Ventilator Ventilator 02/18/21 02/18/21 02/18/21 02/18/21 08:54 09:00 09:00 10:00 Pulse 50 46 56 Resp 25 37 B/P (MAP) 160/101 160/101 (120) 141/86 (104) Pulse Ox 100 99 O2 Delivery Mechanical Ventilator Ventilator Ventilator 02/18/21 02/18/21 02/18/21 02/18/21 10:06 11:00 12:00 12:00 Temp 98.5 98.5 Pulse 56 64 Resp 29 28 B/P (MAP) 177/100 (125) 187/90 (122) Pulse Ox 100 99 100 O2 Delivery Ventilator Ventilator Ventilator Mechanical Ventilator 02/18/21 02/18/21 02/18/21 12:01 12:03 13:57 Pulse 76 B/P (MAP) 199/97 Pulse Ox 98 98 O2 Delivery Ventilator Ventilator Intake and Output 02/17/21 02/17/21 02/18/21 14:59 22:59 06:59 Intake Total 96 ml 1487 ml 1486 ml Output Total 975 ml 715 ml 850 ml Balance -879 ml 772 ml 636 ml Justicifation of Admission Dx: Justifications for Admission: Justification of Admission Dx: Yes Acute Hemorrhagic Stroke: Acute Hemorrhagic Stroke EITAN LORENZO MD Feb 18, 2021 14:39
--- NOTE | 2021-02-18 15:03 | RAD ---
EXAM: XR CHEST 1V 02/18/2021 11:28 AM CLINICAL INDICATION: Vent COMPARISON: Chest radiograph 02/17/2021 TECHNIQUE: AP view of the chest FINDINGS: An endotracheal tube terminates 6 cm above the emily. Nasogastric tube courses below the diaphragm and terminates out of view. Right IJ central venous catheter is unchanged with tip overlyin g the upper superior vena cava. The heart is normal in size. There is mild elevation of right hemidiaphragm. There are bibasilar opac ities, including more focal linear nodular opacities in the right lung base, unchanged. No pleural ef fusion or pneumothorax. Mild emphysema in the upper lobes is stable. IMPRESSION: Unchanged bibasilar opacities. Recommend follow-up to ensure resolution, particularly of focal opacities in the right lung base. Electronically signed by: Holly Rajan MD (02/18/2021 3:00 PM) [id number]
[2021-02-18] MEDS: LABETALOL 20 MG/4 ML DISP.SYRIN. IVP PRN (15:06)
--- NOTE | 2021-02-18 15:17 | EKG ---
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
--- NOTE | 2021-02-18 16:09 | PDOC ---
PULMONARY PROGRESS NOTES DATE: 02/18/21 TIME: 16:07 Subjective Remains on vent support sedated no overnight events Vitals Vital Signs Date Time Temp Pulse Resp B/P (MAP) Pulse Ox O2 Delivery O2 Flow Rate FiO2 02/18/21 16:00 Mechanical Ventilator 02/18/21 15:44 99 02/18/21 15:06 85 164/93 02/18/21 15:00 22 02/18/21 12:00 98.5 98.5 Comments ros unable to obtain sedated on vent Lungs: Clear, Crackles Cardiovascular: S1, S2 Abdomen: Soft, Non-tender Extremities: No Edema Skin: Warm Labs Laboratory Tests Test 02/16/21 17:33 02/16/21 21:11 02/16/21 23:47 02/17/21 05:00 Glucose (Fingerstick) 286 mg/dL (70-99) 258 mg/dL (70-99) 248 mg/dL (70-99) White Blood Count 7.5 x10^3/uL (4.0-11.0) Red Blood Count 3.93 x10^6/uL (4.30-5.70) Hemoglobin 11.8 g/dL (13.0-17.5) Hematocrit 36.3 % (39.0-53.0) Mean Corpuscular Volume 92 fL (79-100) Mean Corpuscular Hemoglobin 30 pg (25-35) Mean Corpuscular Hemoglobin Concent 32 g/dL (31-37) Red Cell Distribution Width 13.9 % (11.5-14.5) Platelet Count 231 x10^3/uL (140-400) Sodium Level 150 mmol/L (136-145) Potassium Level 4.2 mmol/L (3.5-5.1) Chloride Level 113 mmol/L (98-107) Carbon Dioxide Level 27 mmol/L (21-32) Anion Gap 10 (6-14) Blood Urea Nitrogen 27 mg/dL (8-26) Creatinine 0.9 mg/dL (0.7-1.3) Estimated GFR (Cockcroft-Gault) 104.2 Glucose Level 275 mg/dL (70-99) Calcium Level 9.5 mg/dL (8.5-10.1) Phosphorus Level 3.8 mg/dL (2.6-4.7) Magnesium Level 2.2 mg/dL (1.8-2.4) Test 02/17/21 05:09 02/17/21 08:00 02/17/21 12:24 02/17/21 17:45 Glucose (Fingerstick) 257 mg/dL (70-99) 305 mg/dL (70-99) 293 mg/dL (70-99) O2 Saturation 97 % (92-99) Arterial Blood pH 7.40 (7.35-7.45) Arterial Blood pCO2 at Patient Temp 39 mmHg (35-46) Arterial Blood pO2 at Patient Temp 96 mmHg (65-108) Arterial Blood HCO3 24 mmol/L (21-28) Arterial Blood Base Excess -1 mmol/L (-3-3) FiO2 40%+6 Test 02/17/21 20:45 02/18/21 00:26 02/18/21 05:15 02/18/21 06:02 Glucose (Fingerstick) 310 mg/dL (70-99) 279 mg/dL (70-99) 323 mg/dL (70-99) White Blood Count 6.7 x10^3/uL (4.0-11.0) Red Blood Count 3.90 x10^6/uL (4.30-5.70) Hemoglobin 11.5 g/dL (13.0-17.5) Hematocrit 35.9 % (39.0-53.0) Mean Corpuscular Volume 92 fL (79-100) Mean Corpuscular Hemoglobin 30 pg (25-35) Mean Corpuscular Hemoglobin Concent 32 g/dL (31-37) Red Cell Distribution Width 14.1 % (11.5-14.5) Platelet Count 241 x10^3/uL (140-400) Neutrophils (%) (Auto) 67 % (31-73) Lymphocytes (%) (Auto) 21 % (24-48) Monocytes (%) (Auto) 10 % (0-9) Eosinophils (%) (Auto) 2 % (0-3) Basophils (%) (Auto) 0 % (0-3) Neutrophils # (Auto) 4.4 x10^3/uL (1.8-7.7) Lymphocytes # (Auto) 1.4 x10^3/uL (1.0-4.8) Monocytes # (Auto) 0.6 x10^3/uL (0.0-1.1) Eosinophils # (Auto) 0.2 x10^3/uL (0.0-0.7) Basophils # (Auto) 0.0 x10^3/uL (0.0-0.2) Sodium Level 143 mmol/L (136-145) Potassium Level 4.4 mmol/L (3.5-5.1) Chloride Level 109 mmol/L (98-107) Carbon Dioxide Level 26 mmol/L (21-32) Anion Gap 8 (6-14) Blood Urea Nitrogen 26 mg/dL (8-26) Creatinine 0.9 mg/dL (0.7-1.3) Estimated GFR (Cockcroft-Gault) 104.2 Glucose Level 335 mg/dL (70-99) Calcium Level 9.3 mg/dL (8.5-10.1) Phosphorus Level 4.5 mg/dL (2.6-4.7) Magnesium Level 2.1 mg/dL (1.8-2.4) Test 02/18/21 11:17 02/18/21 12:30 Glucose (Fingerstick) 282 mg/dL (70-99) Troponin I Quantitative 1.135 ng/mL (0.000-0.055) Urine Opiates Screen Neg (NEG) Urine Methadone Screen Neg (NEG) Urine Barbiturates Neg (NEG) Urine Phencyclidine Screen Neg (NEG) Urine Amphetamine/Methamphetamine Neg (NEG) Urine Benzodiazepines Screen Pos (NEG) Urine Cocaine Screen Neg (NEG) Urine Cannabinoids Screen Neg (NEG) Urine Ethyl Alcohol Neg (NEG) Laboratory Tests Test 02/17/21 17:45 02/17/21 20:45 02/18/21 00:26 02/18/21 05:15 Glucose (Fingerstick) 293 mg/dL (70-99) 310 mg/dL (70-99) 279 mg/dL (70-99) White Blood Count 6.7 x10^3/uL (4.0-11.0) Red Blood Count 3.90 x10^6/uL (4.30-5.70) Hemoglobin 11.5 g/dL (13.0-17.5) Hematocrit 35.9 % (39.0-53.0) Mean Corpuscular Volume 92 fL (79-100) Mean Corpuscular Hemoglobin 30 pg (25-35) Mean Corpuscular Hemoglobin Concent 32 g/dL (31-37) Red Cell Distribution Width 14.1 % (11.5-14.5) Platelet Count 241 x10^3/uL (140-400) Neutrophils (%) (Auto) 67 % (31-73) Lymphocytes (%) (Auto) 21 % (24-48) Monocytes (%) (Auto) 10 % (0-9) Eosinophils (%) (Auto) 2 % (0-3) Basophils (%) (Auto) 0 % (0-3) Neutrophils # (Auto) 4.4 x10^3/uL (1.8-7.7) Lymphocytes # (Auto) 1.4 x10^3/uL (1.0-4.8) Monocytes # (Auto) 0.6 x10^3/uL (0.0-1.1) Eosinophils # (Auto) 0.2 x10^3/uL (0.0-0.7) Basophils # (Auto) 0.0 x10^3/uL (0.0-0.2) Sodium Level 143 mmol/L (136-145) Potassium Level 4.4 mmol/L (3.5-5.1) Chloride Level 109 mmol/L (98-107) Carbon Dioxide Level 26 mmol/L (21-32) Anion Gap 8 (6-14) Blood Urea Nitrogen 26 mg/dL (8-26) Creatinine 0.9 mg/dL (0.7-1.3) Estimated GFR (Cockcroft-Gault) 104.2 Glucose Level 335 mg/dL (70-99) Calcium Level 9.3 mg/dL (8.5-10.1) Phosphorus Level 4.5 mg/dL (2.6-4.7) Magnesium Level 2.1 mg/dL (1.8-2.4) Test 02/18/21 06:02 02/18/21 11:17 02/18/21 12:30 Glucose (Fingerstick) 323 mg/dL (70-99) 282 mg/dL (70-99) Troponin I Quantitative 1.135 ng/mL (0.000-0.055) Urine Opiates Screen Neg (NEG) Urine Methadone Screen Neg (NEG) Urine Barbiturates Neg (NEG) Urine Phencyclidine Screen Neg (NEG) Urine Amphetamine/Methamphetamine Neg (NEG) Urine Benzodiazepines Screen Pos (NEG) Urine Cocaine Screen Neg (NEG) Urine Cannabinoids Screen Neg (NEG) Urine Ethyl Alcohol Neg (NEG) Comments CXR 02/18/21 IMPRESSION: Unchanged bibasilar opacities. Recommend follow-up to ensure resolution, particularly of focal opacities in the right lung base. CXR 02/17/21 IMPRESSION: 1. Stable life support devices. 2. Stable bibasilar opacities. 3. Stable small left pleural effusion. IMPRESSION: Chest x-ray 02/13 1. Stable support lines and tubes. 2. Severe right upper lobe predominant bullous emphysema. 3. Stable right perihilar linear atelectasis or infiltrate superimposed on diffuse interstitial prominence and small pleural effusions. Impression . IMPRESSION: 1. Acute hypoxic respiratory failure multifactorial 2. Abnormal x-ray 3. Long history of tobaccoism. CT angiogram showed bullous emphysema in the upper lobes. 3. Acute kidney injury. 4. Leukocytosi 5. s/p Right occipital craniotomy with evacuation of intracerebral hematoma. 6. Encephalopathy, multifactorial 7. Uncontrolled hypertension CT head 02/13, discussed with Dr. Louie IMPRESSION: 1. Expected interval evolution of a right posterior temporal/occipital intraparenchymal hematoma status post decompressive craniotomy. 2. Expected evolution of a small amount of subarachnoid and intraventricular clot. DATE OF SURGERY: 02/09/2021 PREOPERATIVE DIAGNOSIS: Right posterior temporoparietal occipital intracerebral hemorrhage with neurologic deterioration. POSTOPERATIVE DIAGNOSIS: Right posterior temporoparietal occipital intracerebral hemorrhage with neurologic deterioration. OPERATION PERFORMED: Right occipital craniotomy with evacuation of intracerebral hematoma. Plan . UPDATED 02/18/21 Continue current vent support A/C mode Follow CXR/ABG - reviewed Consult surgery for trach-- plan for next week Follow ID recs for ABX on zosyn Follow neurosurgery recs-- POD#10 S/P Right occipital craniotomy with evacuation of intracerebral hematoma TPN for nutritional support DVT/GI PPX D/W RN and RT Updated 02/17/21 Continue current vent support A/C mode 16/500/6/40% Follow CXR/ABG - reviewed Pt. does not tolerate reduced/off sedation, will need trach for further weaning Follow ID recs for ABX on zosyn Follow neurosurgery recs-- POD#9 S/P Right occipital craniotomy with evacuation of intracerebral hematoma TPN for nutritional support DVT/GI PPX D/W RN and RT Social work for DC planning Updated 02/16 Patient does not do well off sedation, becomes asynchronous with vent We will discuss with surgery, I recommend tracheotomy We will continue antibiotics per ID Follow neurology and neurosurgery input DVT GI prophylax Updated 02/15, blood pressure better control Antibiotics per ID When sedation is off, patient not in sync with the ventilator Suspect he may require tracheotomy Follow neurology and neurosurgery input Discussed with MANJULA FATIMA MD Feb 18, 2021 16:09
--- NOTE | 2021-02-18 17:23 | PDOC ---
PROGRESS NOTES Date of Service DATE: 02/18/21 TIME: 17:17 Subjective Subjective Patient seen 1345 POD# 10 S/P Right occipital craniotomy with evacuation of intracerebral hematoma will open eyes Becomes agitated, difficult to wean sedation per RN Objective Objective Vital Signs Date Time Temp Pulse Resp B/P (MAP) Pulse Ox O2 Delivery O2 Flow Rate FiO2 02/18/21 16:00 98.5 80 18 133/86 (102) 100 Ventilator 98.5 Intake and Output 02/18/21 07:00 Intake Total 3069 ml Output Total 2540 ml Balance 529 ml Intake IV Total 3069 ml Output Urine Total 2290 ml Gastric Drainage Total 250 ml Physical Exam HEENT: Other (on vent with sedation) Neuro: Other (will move left side) Skin: Other (incision dry) Plan Plan of Care wean sedation as tolerated follow up CT 02/20 Comment Review of Relevant I have reviewed the following items neela (where applicable) has been applied. Labs Laboratory Tests Test 02/16/21 17:33 02/16/21 21:11 02/16/21 23:47 02/17/21 05:00 Glucose (Fingerstick) 286 mg/dL (70-99) 258 mg/dL (70-99) 248 mg/dL (70-99) White Blood Count 7.5 x10^3/uL (4.0-11.0) Red Blood Count 3.93 x10^6/uL (4.30-5.70) Hemoglobin 11.8 g/dL (13.0-17.5) Hematocrit 36.3 % (39.0-53.0) Mean Corpuscular Volume 92 fL (79-100) Mean Corpuscular Hemoglobin 30 pg (25-35) Mean Corpuscular Hemoglobin Concent 32 g/dL (31-37) Red Cell Distribution Width 13.9 % (11.5-14.5) Platelet Count 231 x10^3/uL (140-400) Sodium Level 150 mmol/L (136-145) Potassium Level 4.2 mmol/L (3.5-5.1) Chloride Level 113 mmol/L (98-107) Carbon Dioxide Level 27 mmol/L (21-32) Anion Gap 10 (6-14) Blood Urea Nitrogen 27 mg/dL (8-26) Creatinine 0.9 mg/dL (0.7-1.3) Estimated GFR (Cockcroft-Gault) 104.2 Glucose Level 275 mg/dL (70-99) Calcium Level 9.5 mg/dL (8.5-10.1) Phosphorus Level 3.8 mg/dL (2.6-4.7) Magnesium Level 2.2 mg/dL (1.8-2.4) Test 02/17/21 05:09 02/17/21 08:00 02/17/21 12:24 02/17/21 17:45 Glucose (Fingerstick) 257 mg/dL (70-99) 305 mg/dL (70-99) 293 mg/dL (70-99) O2 Saturation 97 % (92-99) Arterial Blood pH 7.40 (7.35-7.45) Arterial Blood pCO2 at Patient Temp 39 mmHg (35-46) Arterial Blood pO2 at Patient Temp 96 mmHg (65-108) Arterial Blood HCO3 24 mmol/L (21-28) Arterial Blood Base Excess -1 mmol/L (-3-3) FiO2 40%+6 Test 02/17/21 20:45 02/18/21 00:26 02/18/21 05:15 02/18/21 06:02 Glucose (Fingerstick) 310 mg/dL (70-99) 279 mg/dL (70-99) 323 mg/dL (70-99) White Blood Count 6.7 x10^3/uL (4.0-11.0) Red Blood Count 3.90 x10^6/uL (4.30-5.70) Hemoglobin 11.5 g/dL (13.0-17.5) Hematocrit 35.9 % (39.0-53.0) Mean Corpuscular Volume 92 fL (79-100) Mean Corpuscular Hemoglobin 30 pg (25-35) Mean Corpuscular Hemoglobin Concent 32 g/dL (31-37) Red Cell Distribution Width 14.1 % (11.5-14.5) Platelet Count 241 x10^3/uL (140-400) Neutrophils (%) (Auto) 67 % (31-73) Lymphocytes (%) (Auto) 21 % (24-48) Monocytes (%) (Auto) 10 % (0-9) Eosinophils (%) (Auto) 2 % (0-3) Basophils (%) (Auto) 0 % (0-3) Neutrophils # (Auto) 4.4 x10^3/uL (1.8-7.7) Lymphocytes # (Auto) 1.4 x10^3/uL (1.0-4.8) Monocytes # (Auto) 0.6 x10^3/uL (0.0-1.1) Eosinophils # (Auto) 0.2 x10^3/uL (0.0-0.7) Basophils # (Auto) 0.0 x10^3/uL (0.0-0.2) Sodium Level 143 mmol/L (136-145) Potassium Level 4.4 mmol/L (3.5-5.1) Chloride Level 109 mmol/L (98-107) Carbon Dioxide Level 26 mmol/L (21-32) Anion Gap 8 (6-14) Blood Urea Nitrogen 26 mg/dL (8-26) Creatinine 0.9 mg/dL (0.7-1.3) Estimated GFR (Cockcroft-Gault) 104.2 Glucose Level 335 mg/dL (70-99) Calcium Level 9.3 mg/dL (8.5-10.1) Phosphorus Level 4.5 mg/dL (2.6-4.7) Magnesium Level 2.1 mg/dL (1.8-2.4) Test 02/18/21 11:17 02/18/21 12:30 02/18/21 17:11 Glucose (Fingerstick) 282 mg/dL (70-99) 283 mg/dL (70-99) Troponin I Quantitative 1.135 ng/mL (0.000-0.055) Urine Opiates Screen Neg (NEG) Urine Methadone Screen Neg (NEG) Urine Barbiturates Neg (NEG) Urine Phencyclidine Screen Neg (NEG) Urine Amphetamine/Methamphetamine Neg (NEG) Urine Benzodiazepines Screen Pos (NEG) Urine Cocaine Screen Neg (NEG) Urine Cannabinoids Screen Neg (NEG) Urine Ethyl Alcohol Neg (NEG) Laboratory Tests Test 02/17/21 17:45 02/17/21 20:45 02/18/21 00:26 02/18/21 05:15 Glucose (Fingerstick) 293 mg/dL (70-99) 310 mg/dL (70-99) 279 mg/dL (70-99) White Blood Count 6.7 x10^3/uL (4.0-11.0) Red Blood Count 3.90 x10^6/uL (4.30-5.70) Hemoglobin 11.5 g/dL (13.0-17.5) Hematocrit 35.9 % (39.0-53.0) Mean Corpuscular Volume 92 fL (79-100) Mean Corpuscular Hemoglobin 30 pg (25-35) Mean Corpuscular Hemoglobin Concent 32 g/dL (31-37) Red Cell Distribution Width 14.1 % (11.5-14.5) Platelet Count 241 x10^3/uL (140-400) Neutrophils (%) (Auto) 67 % (31-73) Lymphocytes (%) (Auto) 21 % (24-48) Monocytes (%) (Auto) 10 % (0-9) Eosinophils (%) (Auto) 2 % (0-3) Basophils (%) (Auto) 0 % (0-3) Neutrophils # (Auto) 4.4 x10^3/uL (1.8-7.7) Lymphocytes # (Auto) 1.4 x10^3/uL (1.0-4.8) Monocytes # (Auto) 0.6 x10^3/uL (0.0-1.1) Eosinophils # (Auto) 0.2 x10^3/uL (0.0-0.7) Basophils # (Auto) 0.0 x10^3/uL (0.0-0.2) Sodium Level 143 mmol/L (136-145) Potassium Level 4.4 mmol/L (3.5-5.1) Chloride Level 109 mmol/L (98-107) Carbon Dioxide Level 26 mmol/L (21-32) Anion Gap 8 (6-14) Blood Urea Nitrogen 26 mg/dL (8-26) Creatinine 0.9 mg/dL (0.7-1.3) Estimated GFR (Cockcroft-Gault) 104.2 Glucose Level 335 mg/dL (70-99) Calcium Level 9.3 mg/dL (8.5-10.1) Phosphorus Level 4.5 mg/dL (2.6-4.7) Magnesium Level 2.1 mg/dL (1.8-2.4) Test 02/18/21 06:02 02/18/21 11:17 02/18/21 12:30 02/18/21 17:11 Glucose (Fingerstick) 323 mg/dL (70-99) 282 mg/dL (70-99) 283 mg/dL (70-99) Troponin I Quantitative 1.135 ng/mL (0.000-0.055) Urine Opiates Screen Neg (NEG) Urine Methadone Screen Neg (NEG) Urine Barbiturates Neg (NEG) Urine Phencyclidine Screen Neg (NEG) Urine Amphetamine/Methamphetamine Neg (NEG) Urine Benzodiazepines Screen Pos (NEG) Urine Cocaine Screen Neg (NEG) Urine Cannabinoids Screen Neg (NEG) Urine Ethyl Alcohol Neg (NEG) Microbiology 02/11/21 Blood Culture - Final, Complete NO GROWTH AFTER 5 DAYS 02/11/21 Gram Stain Evaluation - Final, Complete 02/11/21 Respiratory Culture - Final, Complete Medications Current Medications Nicardipine HCl 50 mg/Sodium Chloride 250 ml @ 12.5 mls/hr CONT PRN IV SEE I/O RECORD Last administered on 02/16/21at 14:00; Start 02/09/21 at 06:15 Labetalol HCl (Normodyne Iv Push) 10 mg PRN Q2HR PRN IVP HYPERTENSION Last administered on 02/18/21at 15:06; Start 02/09/21 at 06:15 Lorazepam (Ativan Inj) 2 mg 1X ONCE IVP Last administered on 02/09/21at 10:54; Start 02/09/21 at 10:45; Stop 02/09/21 at 10:46; Status DC Lorazepam (Ativan Inj) 2 mg 1X ONCE IVP Last administered on 02/09/21at 11:00; Start 02/09/21 at 11:00; Stop 02/09/21 at 11:01; Status DC Fentanyl Citrate (Fentanyl 2ml Vial) 25 mcg PRN Q2HR PRN IVP MODERATE TO SEVERE PAIN Last administered on 02/09/21at 13:37; Start 02/09/21 at 13:30 Info (Review Meds) 1 ea PRN 1X PRN MC SEE COMMENTS; Start 02/09/21 at 15:00 Acetaminophen (Tylenol Supp) 650 mg PRN Q6HRS PRN ME FEVER > 100.5'F or 38'C; Start 02/09/21 at 15:00; Stop 02/11/21 at 21:12; Status DC Albuterol Sulfate (Ventolin Neb Soln) 2.5 mg PRN Q4HRS PRN NEB SHORTNESS OF BREATH; Start 02/09/21 at 15:15 Iohexol (Omnipaque 350 Mg/ml) 75 ml 1X ONCE IV Last administered on 02/09/21at 15:52; Start 02/09/21 at 15:30; Stop 02/09/21 at 15:35; Status DC Iohexol (Omnipaque 350 Mg/ml) 100 ml STK-MED ONCE .ROUTE ; Start 02/09/21 at 15:26; Stop 02/09/21 at 15:27; Status DC Info (CONTRAST GIVEN -- Rx MONITORING) 1 each PRN DAILY PRN MC SEE COMMENTS; Start 02/09/21 at 15:45; Stop 02/11/21 at 15:44; Status DC Propofol 100 ml @ As Directed STK-MED ONCE IV ; Start 02/09/21 at 15:51; Stop 02/09/21 at 15:51; Status DC Rocuronium Union (Zemuron) 50 mg STK-MED ONCE .ROUTE ; Start 02/09/21 at 15:51; Stop 02/09/21 at 15:51; Status DC Lidocaine HCl (Lidocaine HCl 2% Abboject) 100 mg STK-MED ONCE .ROUTE ; Start 02/09/21 at 15:52; Stop 02/09/21 at 15:53; Status DC Propofol 100 ml @ 3.507 mls/ hr CONT PRN IV PER PROTOCOL Last administered on 02/18/21at 17:05; Start 02/09/21 at 16:15 Lidocaine HCl (Lidocaine HCl 2% Abboject) 100 mg 1X ONCE IV Last administered on 02/09/21at 16:17; Start 02/09/21 at 16:15; Stop 02/09/21 at 16:17; Status DC Rocuronium Union (Zemuron) 50 mg 1X ONCE IV Last administered on 02/09/21at 16:17; Start 02/09/21 at 16:15; Stop 02/09/21 at 16:17; Status DC Rocuronium Union (Zemuron) 100 mg STK-MED ONCE .ROUTE ; Start 02/09/21 at 16:31; Stop 02/09/21 at 16:32; Status DC Gelatin (Gelfoam Size 100) 1 each STK-MED ONCE .ROUTE Last administered on 02/09/21at 17:49; Start 02/09/21 at 16:33; Stop 02/09/21 at 16:33; Status DC Bupivacaine HCl/ Epinephrine Bitart (Sensorcain-Epi 0.5%-1:[id number] Mpf) 30 ml STK-MED ONCE .ROUTE Last administered on 02/09/21at 17:49; Start 02/09/21 at 16:33; Stop 02/09/21 at 16:33; Status DC Cellulose (Surgicel Hemostat 4x8) 1 each STK-MED ONCE .ROUTE Last administered on 02/09/21at 18:38; Start 02/09/21 at 16:33; Stop 02/09/21 at 16:33; Status DC Thrombin 20,000 unit STK-MED ONCE TP Last administered on 02/09/21at 17:49; Start 02/09/21 at 16:33; Stop 02/09/21 at 16:33; Status DC Fentanyl Citrate (Fentanyl 2ml Vial) 75 mcg 1X ONCE IVP Last administered on 02/09/21at 16:45; Start 02/09/21 at 16:45; Stop 02/09/21 at 16:47; Status DC Propofol (Diprivan) 200 mg 1X ONCE IV ; Start 02/09/21 at 17:15; Stop 02/09/21 at 17:16; Status DC Lidocaine HCl (Lidocaine HCl 2% Abboject) 100 mg 1X ONCE IV ; Start 02/09/21 at 17:15; Stop 02/09/21 at 17:16; Status DC Rocuronium Union (Zemuron) 50 mg 1X ONCE IV ; Start 02/09/21 at 17:15; Stop 02/09/21 at 17:16; Status DC Propofol 100 ml @ 0 mls/hr CONT PRN PRN IV SEDATION; Start 02/09/21 at 17:15; Stop 02/10/21 at 05:14; Status DC Cefazolin Sodium (Ancef) 1 gm STK-MED ONCE IVP ; Start 02/09/21 at 17:28; Stop 02/09/21 at 17:28; Status DC Fentanyl Citrate (Fentanyl 2ml Vial) 100 mcg STK-MED ONCE .ROUTE ; Start 02/09/21 at 17:43; Stop 02/09/21 at 17:43; Status DC Rocuronium Union (Zemuron) 100 mg STK-MED ONCE .ROUTE ; Start 02/09/21 at 17:58; Stop 02/09/21 at 17:59; Status DC Vecuronium Union (Norcuron Bolus) 10 mg STK-MED ONCE IV ; Start 02/09/21 at 18:49; Stop 02/09/21 at 18:50; Status DC Sodium Chloride (SODIUM CHLORIDE 20ml) 20 ml STK-MED ONCE IJ ; Start 02/09/21 at 18:50; Stop 02/09/21 at 18:50; Status DC Sevoflurane (Ultane) 90 ml STK-MED ONCE IH ; Start 02/09/21 at 19:20; Stop 02/09/21 at 19:21; Status DC Fentanyl Citrate 30 ml @ 2.5 mls/hr CONT PRN IV SEE PROTOCOL Last administered on 02/09/21at 23:40; Start 02/09/21 at 23:15; Stop 02/10/21 at 04:43; Status DC Fentanyl Citrate 55 ml @ 0 mls/hr CONT PRN IV SEE I/O Last administered on 02/16/21at 11:11; Start 02/10/21 at 05:00 Potassium Chloride/Dextrose/ Sod Cl 1,000 ml @ 80 mls/hr [id number] IV ; Start 02/10/21 at 09:00; Stop 02/10/21 at 13:21; Status DC Pantoprazole Sodium (PROTONIX VIAL for IV PUSH) 40 mg DAILYAC IVP Last administered on 02/18/21at 08:51; Start 02/10/21 at 09:00 Lidocaine HCl (Buffered Lidocaine 1%) 3 ml STK-MED ONCE .ROUTE ; Start 02/10/21 at 13:18; Stop 02/10/21 at 13:18; Status DC Sodium Chloride 1,000 ml @ 80 mls/hr [id number] IV Last administered on 02/12/21at 03:00; Start 02/10/21 at 13:30; Stop 02/12/21 at 15:36; Status DC Lidocaine HCl (Buffered Lidocaine 1%) 6 ml 1X ONCE INJ Last administered on 02/10/21at 13:57; Start 02/10/21 at 13:45; Stop 02/10/21 at 13:46; Status DC Potassium Chloride/Water 100 ml @ 100 mls/hr Q1H IV Last administered on 02/11/21at 10:07; Start 02/11/21 at 08:00; Stop 02/11/21 at 09:59; Status DC Piperacillin Sod/ Tazobactam Sod 3.375 gm/Sodium Chloride 50 ml @ 100 mls/hr Q6HRS IV Last administered on 02/18/21at 17:05; Start 02/11/21 at 09:00 Info (Tpn Per Pharmacy) 1 each PRN DAILY PRN MC SEE COMMENTS Last administered on 02/18/21at 14:17; Start 02/11/21 at 11:15 Sodium Chloride 90 meq/Potassium Chloride 50 meq/ Potassium Phosphate 13.6 mmol/Magnesium Sulfate 10 meq/ Calcium Gluconate 10 meq/ Multivitamins 5 ml/Zinc/Copper/ Manganese/ Selenium 1 ml/ Total Parenteral Nutrition/Amino Acids/Dextrose 1,512 ml @ 63 mls/hr TPN CONT IV Last administered on 02/11/21at 22:32; Start 02/11/21 at 22:00; Stop 02/12/21 at 21:59; Status DC Furosemide (Lasix) 20 mg 1X ONCE IVP Last administered on 02/11/21at 15:11; Start 02/11/21 at 15:30; Stop 02/11/21 at 15:31; Status DC Furosemide (Lasix) 20 mg 1X ONCE IVP Last administered on 02/11/21at 17:00; Start 02/11/21 at 17:00; Stop 02/11/21 at 17:01; Status DC Midazolam HCl 100 ml @ 1 mls/hr CONT PRN IV SEE PROTOCOL Last administered on 02/13/21at 20:58; Start 02/11/21 at 19:30 Acetaminophen (Tylenol Supp) 650 mg PRN Q6HRS PRN ME MILD PAIN / TEMP > 100.3'F; Start 02/11/21 at 21:15 Sodium Chloride 80 meq/Potassium Chloride 50 meq/ Potassium Phosphate 13.6 mmol/Magnesium Sulfate 6 meq/ Calcium Gluconate 10 meq/ Multivitamins 5 ml/Zinc/ Copper/ Manganese/ Selenium 1 ml/ Total Parenteral Nutrition/Amino Acids/Dextrose 1,512 ml @ 63 mls/hr TPN CONT IV Last administered on 02/12/21at 22:09; Start 02/12/21 at 22:00; Stop 02/13/21 at 21:59; Status DC Furosemide (Lasix) 40 mg 1X ONCE IVP Last administered on 02/12/21at 12:44; Start 02/12/21 at 12:30; Stop 02/12/21 at 12:31; Status DC Insulin Human Lispro (HumaLOG) 0-5 UNITS Q6HRS SQ Last administered on 02/18/21at 17:13; Start 02/12/21 at 12:00 Dextrose (Dextrose 50%-Water Syringe) 12.5 gm PRN Q15MIN PRN IV SEE COMMENTS; Start 02/12/21 at 12:15 Clonidine HCl (Catapres Tts-3) 1 patch WEEKLY TD Last administered on 02/13/21at 11:47; Start 02/13/21 at 11:00 Sodium Chloride 80 meq/Potassium Chloride 50 meq/ Potassium Phosphate 13.6 mmol/Magnesium Sulfate 6 meq/ Calcium Gluconate 10 meq/ Multivitamins 5 ml/Zinc/Copper/ Manganese/ Selenium 1 ml/ Total Parenteral Nutrition/Amino Acids/Dextrose 1,512 ml @ 63 mls/hr TPN CONT IV Last administered on 02/13/21at 21:42; Start 02/13/21 at 22:00; Stop 02/14/21 at 21:59; Status DC Potassium Acetate 50 meq/Potassium Phosphate 13.6 mmol/Magnesium Sulfate 6 meq/ Calcium Gluconate 10 meq/ Multivitamins 5 ml/Zinc/Copper/ Manganese/ Selenium 1 ml/ Total Parenteral Nutrition/Amino Acids/Dextrose 1,512 ml @ 63 mls/hr TPN CONT IV Last administered on 02/14/21at 21:59; Start 02/14/21 at 22:00; Stop 02/15/21 at 21:59; Status DC Insulin Glargine (Lantus Syringe) 10 unit QHS SQ Last administered on 02/15/21at 22:11; Start 02/14/21 at 21:00; Stop 02/16/21 at 12:42; Status DC Hydralazine HCl (Apresoline Inj) 10 mg PRN Q4HRS PRN IVP ELEVATED BP, SEE COMMENTS Last administered on 02/18/21at 12:03; Start 02/14/21 at 16:00 Potassium Acetate 50 meq/Potassium Phosphate 13.6 mmol/Magnesium Sulfate 6 meq/ Calcium Gluconate 10 meq/ Multivitamins 5 ml/Zinc/Copper/ Manganese/ Selenium 1 ml/ Total Parenteral Nutrition/Amino Acids/Dextrose 1,512 ml @ 63 mls/hr TPN CONT IV Last administered on 02/15/21at 22:13; Start 02/15/21 at 22:00; Stop 02/16/21 at 21:59; Status DC Dexmedetomidine HCl 400 mcg/ Sodium Chloride 100 ml @ 0 mls/hr CONT PRN IV PER PROTOCOL Last administered on 02/18/21at 15:06; Start 02/15/21 at 14:15 Sodium Chloride 500 ml @ 500 mls/hr 1X PRN PRN IV SEE COMMENTS; Start 02/15/21 at 14:15 Atropine Sulfate (ATROPINE 0.5mg SYRINGE) 0.5 mg PRN Q5MIN PRN IV SEE COMMENTS; Start 02/15/21 at 14:15 Potassium Acetate 50 meq/Potassium Phosphate 13.6 mmol/Magnesium Sulfate 6 meq/ Calcium Gluconate 10 meq/ Multivitamins 5 ml/Zinc/Copper/ Manganese/ Selenium 1 ml/ Total Parenteral Nutrition/Amino Acids/Dextrose 1,512 ml @ 63 mls/hr TPN CONT IV Last administered on 02/16/21at 22:59; Start 02/16/21 at 22:00; Stop 02/17/21 at 21:59; Status DC Insulin Glargine (Lantus Syringe) 14 unit QHS SQ Last administered on 02/16/21at 21:14; Start 02/16/21 at 21:00; Stop 02/17/21 at 14:15; Status DC Potassium Acetate 50 meq/Potassium Phosphate 13.6 mmol/Magnesium Sulfate 6 meq/ Calcium Gluconate 10 meq/ Multivitamins 5 ml/Zinc/Copper/ Manganese/ Selenium 1 ml/ Total Parenteral Nutrition/Amino Acids/Dextrose 1,512 ml @ 63 mls/hr TPN CONT IV Last administered on 02/17/21at 20:48; Start 02/17/21 at 22:00; Stop 02/18/21 at 21:59 Dextrose 1,000 ml @ 75 mls/hr [id number] IV Last administered on 02/18/21at 13:51; Start 02/17/21 at 10:30 Insulin Glargine (Lantus Syringe) 18 unit QHS SQ Last administered on 02/17/21at 20:46; Start 02/17/21 at 21:00; Stop 02/18/21 at 11:56; Status DC Insulin Glargine (Lantus Syringe) 22 unit QHS SQ ; Start 02/18/21 at 21:00 Potassium Acetate 50 meq/Potassium Phosphate 13.6 mmol/Magnesium Sulfate 6 meq/ Calcium Gluconate 10 meq/ Multivitamins 5 ml/Zinc/Copper/ Manganese/ Selenium 1 ml/ Total Parenteral Nutrition/Amino Acids/Dextrose 1,512 ml @ 63 mls/hr TPN CONT IV ; Start 02/18/21 at 22:00; Stop 02/19/21 at 21:59 Vitals/I & O Vital Sign - Last 24 Hours 02/17/21 02/17/21 02/17/21 02/17/21 18:00 19:00 20:00 20:00 Temp 97.8 97.8 Pulse 50 51 50 Resp 17 17 18 B/P (MAP) 136/90 (105) 124/81 (95) 134/79 (97) Pulse Ox 100 100 100 O2 Delivery Ventilator Ventilator Mechanical Ventilator Ventilator 02/17/21 02/17/21 02/17/21 02/17/21 21:00 21:55 22:00 23:00 Pulse 48 51 49 Resp 18 18 18 B/P (MAP) 135/62 (86) 128/69 (88) 131/90 (104) Pulse Ox 100 100 100 100 O2 Delivery Ventilator Ventilator Ventilator Ventilator 02/17/21 02/17/21 02/18/21 02/18/21 23:59 23:59 00:27 01:00 Temp 98.1 98.1 Pulse 51 47 Resp 16 17 B/P (MAP) 137/91 (106) 133/91 (105) Pulse Ox 100 100 100 O2 Delivery Ventilator Mechanical Ventilator Ventilator Ventilator 02/18/21 02/18/21 02/18/21 02/18/21 02:00 02:00 03:00 03:20 Pulse 47 47 42 Resp 18 17 17 B/P (MAP) 131/89 (103) 139/89 (106) 129/88 (102) Pulse Ox 100 100 100 100 O2 Delivery Ventilator Ventilator Ventilator Ventilator 02/18/21 02/18/21 02/18/2102/18/21 03:53 03:57 04:58 05:00 Temp 98.1 98.1 Pulse 42 42 44 Resp 16 17 B/P (MAP) 134/91 (105) 177/91 128/92 (104) Pulse Ox 100 100 O2 Delivery Ventilator Mechanical Ventilator Ventilator 02/18/21 02/18/21 02/18/21 02/18/21 06:01 06:05 07:00 08:00 Temp 97.4 97.4 Pulse 45 44 42 Resp 17 16 25 B/P (MAP) 123/85 (98) 112/81 (91) 116/83 (94) Pulse Ox 100 100 100 100 O2 Delivery Ventilator Ventilator Ventilator Ventilator 02/18/21 02/18/21 02/18/21 02/18/21 08:07 08:54 09:00 09:00 Pulse 50 46 Resp 25 B/P (MAP) 160/101 160/101 (120) Pulse Ox 100 100 O2 Delivery Ventilator Mechanical Ventilator Ventilator 02/18/21 02/18/21 02/18/21 02/18/21 10:00 10:06 11:00 12:00 Temp 98.5 98.5 Pulse 56 56 64 Resp 37 29 28 B/P (MAP) 141/86 (104) 177/100 (125) 187/90 (122) Pulse Ox 99 100 99 100 O2 Delivery Ventilator Ventilator Ventilator Ventilator 02/18/21 02/18/21 02/18/21 02/18/21 12:00 12:01 12:03 13:00 Pulse 76 64 Resp 25 B/P (MAP) 199/97 168/89 (115) Pulse Ox 98 100 O2 Delivery Mechanical Ventilator Ventilator Ventilator 02/18/21 02/18/21 02/18/21 02/18/21 13:57 14:00 15:00 15:06 Pulse 56 59 85 Resp 20 22 B/P (MAP) 164/90 (114) 136/84 (101) 164/93 Pulse Ox 98 99 100 O2 Delivery Ventilator Ventilator Ventilator 02/18/21 02/18/21 02/18/21 15:44 16:00 16:00 Temp 98.5 98.5 Pulse 80 Resp 18 B/P (MAP) 133/86 (102) Pulse Ox 99 100 O2 Delivery Ventilator Mechanical Ventilator Ventilator Intake and Output 02/17/21 02/17/21 02/18/21 15:00 23:00 07:00 Intake Total 96 ml 1487 ml 1486 ml Output Total 975 ml 715 ml 850 ml Balance -879 ml 772 ml 636 ml Justifications for Admission Other Justification LUCINDA DENNY MD Feb 18, 2021 17:23
[2021-02-18] MEDS ORDERED: INSULIN GLARGINE SYRINGE. SQ SCH (21:00)
[2021-02-18] MEDS ORDERED: [UNRECOGNIZED DRUG - OTHER] IV SCH (22:00)
[2021-02-18] MEDS ORDERED: TOTAL PARENTERAL NUTRITION IV SCH (22:00)
[2021-02-18] MEDS ORDERED: AMINO ACID IV SCH (22:00)
[2021-02-18] MEDS ORDERED: DEXTROSE 70% IV SCH (22:00)
[2021-02-18] MEDS: fentaNYL HIGH DOSE PCA 55 ML IV PRN (23:56)
[2021-02-19] VITALS (24 sets, daily range): BP systolic 130–161; BP diastolic 62–94
[2021-02-19] MEDS: INSULIN LISPRO 300 UNITS/3 ML VIAL. SQ SCH ×5 (00:01→23:47)
[2021-02-19] MEDS: DEXMEDETOMIDINE 400 MCG in IV NORMAL SALINE 100ML 96 ML IV PRN ×6 (00:09→20:52)
[2021-02-19] MEDS: PROPOFOL 100 ML IV PRN ×6 (00:54→20:50)
[2021-02-19] MEDS: PIPERACILLIN/TAZOBACTAM 3.375 GM in IV NORMAL SALINE 50ML 50 ML IV SCH ×4 (05:56→23:45)
[2021-02-19 06:22] LABS: ALBUMIN 2.3 g/dL (3.4-5.0); ALBUMIN/GLOBULIN RATIO 0.6 (1.0-1.7); CALCIUM 8.6 mg/dL (8.5-10.1); CREATININE 1.1 mg/dL (0.7-1.3); GFR 82.6; POTASSIUM 4.3 mmol/L (3.5-5.1); TOTAL BILIRUBIN 0.5 mg/dL (0.2-1.0); TOTAL PROTEIN 5.9 g/dL (6.4-8.2)
--- NOTE | 2021-02-19 07:47 | PDOC ---
Infectious Disease Note Subjective: Subjective intubated ,sedated Vital Signs: Vital Signs Vital Signs Date Time Temp Pulse Resp B/P (MAP) Pulse Ox O2 Delivery O2 Flow Rate FiO2 02/19/21 06:00 60 17 159/69 (99) 100 Ventilator 02/19/21 04:00 98.9 98.9 Physical Exam: PHYSICAL EXAM GENERAL: Sedated, orally intubated gentleman, HEENT: ETT/OGT + NECK: Rt IJ clean LUNGS: Decreased breath sound at bases HEART: S1, S2 bradycardia ABDOMEN: Soft, nontender, no organomegaly. EXTREMITIES: +edema, no cyanosis. SKIN:no gen rash NEUROLOGIC: unable to assess art line, central line clean Medications: Inpatient Meds: Medications reviewed. Labs: Lab Laboratory Tests Test 02/18/21 11:17 02/18/21 12:30 02/18/21 17:11 02/18/21 21:36 Glucose (Fingerstick) 282 mg/dL (70-99) 283 mg/dL (70-99) 243 mg/dL (70-99) Troponin I Quantitative 1.135 ng/mL (0.000-0.055) Urine Opiates Screen Neg (NEG) Urine Methadone Screen Neg (NEG) Urine Barbiturates Neg (NEG) Urine Phencyclidine Screen Neg (NEG) Urine Amphetamine/Methamphetamine Neg (NEG) Urine Benzodiazepines Screen Pos (NEG) Urine Cocaine Screen Neg (NEG) Urine Cannabinoids Screen Neg (NEG) Urine Ethyl Alcohol Neg (NEG) Test 02/19/21 00:00 02/19/21 00:01 02/19/21 05:30 02/19/21 05:55 Glucose (Fingerstick) 247 mg/dL (70-99) 218 mg/dL (70-99) Troponin I Quantitative 0.364 ng/mL (0.000-0.055) 0.465 ng/mL (0.000-0.055) Sodium Level 144 mmol/L (136-145) Potassium Level 4.3 mmol/L (3.5-5.1) Chloride Level 107 mmol/L (98-107) Carbon Dioxide Level 26 mmol/L (21-32) Anion Gap 11 (6-14) Blood Urea Nitrogen 24 mg/dL (8-26) Creatinine 1.1 mg/dL (0.7-1.3) Estimated GFR (Cockcroft-Gault) 82.6 BUN/Creatinine Ratio 22 (6-20) Glucose Level 232 mg/dL (70-99) Calcium Level 8.6 mg/dL (8.5-10.1) Total Bilirubin 0.5 mg/dL (0.2-1.0) Aspartate Amino Transf (AST/SGOT) 74 U/L (15-37) Alanine Aminotransferase (ALT/SGPT) 157 U/L (16-63) Alkaline Phosphatase 115 U/L (46-116) Total Protein 5.9 g/dL (6.4-8.2) Albumin 2.3 g/dL (3.4-5.0) Albumin/Globulin Ratio 0.6 (1.0-1.7) Objective: Assessment: 1. Fever.Improved 2. Suspected aspiration.sputum cultures NRF 3. Intracranial bleed with mass effect, status post craniotomy and hematoma evacuation. 4. Encephalopathy 5. Respiratory failure. 6. Hypertension. 7. Chronic obstructive pulmonary disease. 8. MARVIN improved U/S BUE to neg for DVT Bradycardia Plan: Plan of Care cont Zosyn Monitor labs and cults cont supportive care RAMU DELGADO MD Feb 19, 2021 07:47
[2021-02-19] MEDS: PANTOPRAZOLE IV PUSH 40 MG VIAL. IVP SCH (09:22)
--- NOTE | 2021-02-19 10:56 | PDOC ---
PROGRESS NOTES Date of Service: DATE: 02/19/21 TIME: 10:56 Chief Complaint Chief Complaint IMPRESSION Dizziness Large right temporo-occipital intraparenchymal bleed, most likely lobar hemorrhage from hypertension, consider venous sinus thrombosis, , aneurysmal bleed, Had craniotomy 7 evening Suspect aspiration, respiratory failure, hypertension, chronic obstructive pulmonary disease, improving acute kidney injury MORBID OBESITY History of Present Illness History of Present Illness 02/19/2021 POD #11 Right occipital craniotomy with evacuation of intracerebral hematoma sedated on vent Patient seen and examined at bedside Continue antibiotics per infectious disease Weaning ventilator and sedation as tolerated extubation in the next few days Plan of care discussed with bedside nurse Expected interval evolution of a right posterior temporal/occipital intraparenchymal hematoma status post decompressive craniotomy Large right temporo-occipital intraparenchymal bleed, most likely lobar hemorrhage from hypertension, consider venous sinus thrombosis, less likely in this location, aneurysmal bleed, head trauma (also unlikely). craniotomy 7 evening Suspect of aspiration, respiratory failure, hypertension, chronic obstructive pulmonary disease, improving acute kidney injury cont Zosyn glucose uncontrolled add Lantus 22 UNITS SQ HS elevated troponin suspect stress induced ischemia 36 MIN CC TIME 02/18/2021 POD #10 Right occipital craniotomy with evacuation of intracerebral hematoma sedated on vent Patient seen and examined at bedside Continue antibiotics per infectious disease Weaning ventilator and sedation as tolerated extubation in the next few days Plan of care discussed with bedside nurse Expected interval evolution of a right posterior temporal/occipital intraparenchymal hematoma status post decompressive craniotomy Large right temporo-occipital intraparenchymal bleed, most likely lobar hemorrhage from hypertension, consider venous sinus thrombosis, less likely in this location, aneurysmal bleed, head trauma (also unlikely). Had craniotomy 02/09 evening Suspect of aspiration, respiratory failure, hypertension, chronic obstructive pulmonary disease, improving acute kidney injury cont Zosyn glucose uncontrolled add Lantus 22 UNITS SQ HS 34 MIN CC TIME 02/17/2021 POD #8 Right occipital craniotomy with evacuation of intracerebral hematoma sedated on vent Patient seen and examined at bedside Good response to IV Lasix Continue antibiotics per infectious disease Weaning ventilator and sedation as tolerated extubation in the next few days Plan of care discussed with bedside nurse Expected interval evolution of a right posterior temporal/occipital intraparenchymal hematoma status post decompressive craniotomy Large right temporo-occipital intraparenchymal bleed, most likely lobar hemorrhage from hypertension, consider venous sinus thrombosis, less likely in this location, aneurysmal bleed, head trauma (also unlikely). Had craniotomy 7/8 evening Suspect of aspiration, respiratory failure, hypertension, chronic obstructive pulmonary disease, improving acute kidney injury cont Zosyn glucose uncontrolled add Lantus 18 UNITS SQ HS 33 MIN CC TIME 02/16/2021 POD #7 Right occipital craniotomy with evacuation of intracerebral hematoma sedated on vent Patient seen and examined at bedside Good response to IV Lasix Continue antibiotics per infectious disease Weaning ventilator and sedation as tolerated extubation in the next few days Plan of care discussed with bedside nurse Expected interval evolution of a right posterior temporal/occipital intraparenchymal hematoma status post decompressive craniotomy Large right temporo-occipital intraparenchymal bleed, most likely lobar hemorrhage from hypertension, consider venous sinus thrombosis, less likely in this location, aneurysmal bleed, head trauma (also unlikely). Had craniotomy 7/ evening Suspect of aspiration, respiratory failure, hypertension, chronic obstructive pulmonary disease, improving acute kidney injury cont Zosyn glucose uncontrolled add Lantus 14 UNITS SQ HS 35 MIN CC TIME 02/15/2021 POD #6 Right occipital craniotomy with evacuation of intracerebral hematoma sedated on vent Patient seen and examined at bedside Good response to IV Lasix Continue antibiotics per infectious disease Weaning ventilator and sedation as tolerated Hopeful extubation in the next few days Plan of care discussed with bedside nurse Expected interval evolution of a right posterior temporal/occipital intraparenchymal hematoma status post decompressive craniotomy Large right temporo-occipital intraparenchymal bleed, most likely lobar hemorrhage from hypertension, consider venous sinus thrombosis, less likely in this location, aneurysmal bleed, head trauma (also unlikely). Had craniotomy 7/8 evening Suspect of aspiration, respiratory failure, hypertension, chronic obstructive pulmonary disease, improving acute kidney injury cont Zosyn glucose uncontrolled add Lantus 35 MIN CC TIME 02/14/2021 POD #5 Right occipital craniotomy with evacuation of intracerebral hematoma sedated on vent Patient seen and examined at bedside Good response to IV Lasix Continue antibiotics per infectious disease Weaning ventilator and sedation as tolerated Hopeful extubation in the next few days Plan of care discussed with bedside nurse Expected interval evolution of a right posterior temporal/occipital intraparenchymal hematoma status post decompressive craniotomy Large right temporo-occipital intraparenchymal bleed, most likely lobar hemorrhage from hypertension, consider venous sinus thrombosis, less likely in this location, aneurysmal bleed, head trauma (also unlikely). Had craniotomy 02/09 evening Suspect of aspiration, respiratory failure, hypertension, chronic obstructive pulmonary disease, improving acute kidney injury cont Zosyn glucose uncontrolled add Lantus 35 MIN CC TIME 02/13/2021 POD #4 Right occipital craniotomy with evacuation of intracerebral hematoma sedated on vent Patient seen and examined at bedside Good response to IV Lasix Continue antibiotics per infectious disease Weaning ventilator and sedation as tolerated Hopeful extubation in the next few days Plan of care discussed with bedside nurse Expected interval evolution of a right posterior temporal/occipital intraparenchymal hematoma status post decompressive craniotomy Large right temporo-occipital intraparenchymal bleed, most likely lobar hemorrhage from hypertension, consider venous sinus thrombosis, less likely in this location, aneurysmal bleed, head trauma (also unlikely). Had craniotomy 02/09 evening Suspect of aspiration, respiratory failure, hypertension, chronic obstructive pulmonary disease, improving acute kidney injury cont Zosyn 35 MIN CC TIME 02/12/2021 Patient seen and examined at bedside Remains intubated and sedated Good response to IV Lasix yesterday had nearly 3 L out; will diurese again today Continue antibiotics per infectious disease Weaning ventilator and sedation as tolerated Hopeful extubation in the next few days Plan of care discussed with bedside nurse 02/11/2021 Patient seen and examined at bedside No major clinical changes overnight however this morning patient has largely increased amount of secretions Chest x-ray concerning for possible pneumonia, will consult ID who recommended starting Zosyn Otherwise he remains intubated and sedated We will follow subspecialist input Plan discussed with bedside RN 02/10/2021 Patient seen and examined at bedside Underwent craniotomy yesterday due to unresponsiveness in the late afternoon; was also intubated Continues to have a poor neurologic status Neurology and neurosurgery following Discussed plan of care with bedside nurse Patient is a 61-year-old male transferred for to the ICU overnight due to hypertensive emergency and intracranial hemorrhage. Patient's mother at bedside provides most the history. She reports that patient had been in his usual state of health until yesterday morning when he reported feeling tired and having a headache. Patient mother reports he normally gets up early and goes outside however this was not the case yesterday. With this headache he took BC powder and went back to bed. Patient's mother reports that he was in and out of bed throughout most of the afternoon. Says patient did not eat anything yesterday which is very unusual for him. Approximately 1130 last night she had the patient get up to go to the bathroom and heard him fall. He however is able to get up and returned to bed; unknown if he hit his head at this time. Patient again woke up around 2 AM and woke up his mother asking for orange juice and then proceeded to fall again, she does not think he hit his head at this time. He was taken to hospital and found to have a systolic blood pressure greater than [address] scan found to have an intracranial hemorrhage. Due to severity of his condition he was transferred here. Patient's mother reports she is not aware of any past medical history other than hypertension which he intermittently takes hydrochlorothiazide for. Vitals Vitals Vital Signs Date Time Temp Pulse Resp B/P (MAP) Pulse Ox O2 Delivery O2 Flow Rate FiO2 02/19/21 10:14 61 20 135/82 (99) 99 Ventilator 02/19/21 07:00 98.7 98.7 Physical Exam Physical Exam GENERAL: Sedated, orally intubated gentleman, HEENT: ETT/OGT + NECK: Rt IJ clean LUNGS: Decreased breath sound at bases HEART: S1, S2 bradycardia ABDOMEN: Soft, nontender, no organomegaly. EXTREMITIES: + less edema, no cyanosis. SKIN:no gen rash NEUROLOGIC: unable to assess art line, central line clean General: Other (on vent with sedation) Lungs: Clear, Crackles Abdomen: Soft Extremities: No cyanosis Skin: Other (incision dry) Labs LABS Laboratory Tests Test 02/18/21 11:17 02/18/21 12:30 02/18/21 17:11 02/18/21 21:36 Glucose (Fingerstick) 282 mg/dL (70-99) 283 mg/dL (70-99) 243 mg/dL (70-99) Troponin I Quantitative 1.135 ng/mL (0.000-0.055) Urine Opiates Screen Neg (NEG) Urine Methadone Screen Neg (NEG) Urine Barbiturates Neg (NEG) Urine Phencyclidine Screen Neg (NEG) Urine Amphetamine/Methamphetamine Neg (NEG) Urine Benzodiazepines Screen Pos (NEG) Urine Cocaine Screen Neg (NEG) Urine Cannabinoids Screen Neg (NEG) Urine Ethyl Alcohol Neg (NEG) Test 02/19/21 00:00 02/19/21 00:01 02/19/21 05:30 02/19/21 05:55 Glucose (Fingerstick) 247 mg/dL (70-99) 218 mg/dL (70-99) Troponin I Quantitative 0.364 ng/mL (0.000-0.055) 0.465 ng/mL (0.000-0.055) Sodium Level 144 mmol/L (136-145) Potassium Level 4.3 mmol/L (3.5-5.1) Chloride Level 107 mmol/L (98-107) Carbon Dioxide Level 26 mmol/L (21-32) Anion Gap 11 (6-14) Blood Urea Nitrogen 24 mg/dL (8-26) Creatinine 1.1 mg/dL (0.7-1.3) Estimated GFR (Cockcroft-Gault) 82.6 BUN/Creatinine Ratio 22 (6-20) Glucose Level 232 mg/dL (70-99) Calcium Level 8.6 mg/dL (8.5-10.1) Total Bilirubin 0.5 mg/dL (0.2-1.0) Aspartate Amino Transf (AST/SGOT) 74 U/L (15-37) Alanine Aminotransferase (ALT/SGPT) 157 U/L (16-63) Alkaline Phosphatase 115 U/L (46-116) Total Protein 5.9 g/dL (6.4-8.2) Albumin 2.3 g/dL (3.4-5.0) Albumin/Globulin Ratio 0.6 (1.0-1.7) Comment Review of Relevant I have reviewed the following items neela (where applicable) has been applied. Labs Laboratory Tests Test 02/17/21 12:24 02/17/21 17:45 02/17/21 20:45 02/18/21 00:26 Glucose (Fingerstick) 305 mg/dL (70-99) 293 mg/dL (70-99) 310 mg/dL (70-99) 279 mg/dL (70-99) Test 02/18/21 05:15 02/18/21 06:02 02/18/21 11:17 02/18/21 12:30 White Blood Count 6.7 x10^3/uL (4.0-11.0) Red Blood Count 3.90 x10^6/uL (4.30-5.70) Hemoglobin 11.5 g/dL (13.0-17.5) Hematocrit 35.9 % (39.0-53.0) Mean Corpuscular Volume 92 fL (79-100) Mean Corpuscular Hemoglobin 30 pg (25-35) Mean Corpuscular Hemoglobin Concent 32 g/dL (31-37) Red Cell Distribution Width 14.1 % (11.5-14.5) Platelet Count 241 x10^3/uL (140-400) Neutrophils (%) (Auto) 67 % (31-73) Lymphocytes (%) (Auto) 21 % (24-48) Monocytes (%) (Auto) 10 % (0-9) Eosinophils (%) (Auto) 2 % (0-3) Basophils (%) (Auto) 0 % (0-3) Neutrophils # (Auto) 4.4 x10^3/uL (1.8-7.7) Lymphocytes # (Auto) 1.4 x10^3/uL (1.0-4.8) Monocytes # (Auto) 0.6 x10^3/uL (0.0-1.1) Eosinophils # (Auto) 0.2 x10^3/uL (0.0-0.7) Basophils # (Auto) 0.0 x10^3/uL (0.0-0.2) Sodium Level 143 mmol/L (136-145) Potassium Level 4.4 mmol/L (3.5-5.1) Chloride Level 109 mmol/L (98-107) Carbon Dioxide Level 26 mmol/L (21-32) Anion Gap 8 (6-14) Blood Urea Nitrogen 26 mg/dL (8-26) Creatinine 0.9 mg/dL (0.7-1.3) Estimated GFR (Cockcroft-Gault) 104.2 Glucose Level 335 mg/dL (70-99) Calcium Level 9.3 mg/dL (8.5-10.1) Phosphorus Level 4.5 mg/dL (2.6-4.7) Magnesium Level 2.1 mg/dL (1.8-2.4) Glucose (Fingerstick) 323 mg/dL (70-99) 282 mg/dL (70-99) Troponin I Quantitative 1.135 ng/mL (0.000-0.055) Urine Opiates Screen Neg (NEG) Urine Methadone Screen Neg (NEG) Urine Barbiturates Neg (NEG) Urine Phencyclidine Screen Neg (NEG) Urine Amphetamine/Methamphetamine Neg (NEG) Urine Benzodiazepines Screen Pos (NEG) Urine Cocaine Screen Neg (NEG) Urine Cannabinoids Screen Neg (NEG) Urine Ethyl Alcohol Neg (NEG) Test 02/18/21 17:11 02/18/21 21:36 02/19/21 00:00 02/19/21 00:01 Glucose (Fingerstick) 283 mg/dL (70-99) 243 mg/dL (70-99) 247 mg/dL (70-99) Troponin I Quantitative 0.364 ng/mL (0.000-0.055) Test 02/19/21 05:30 02/19/21 05:55 Sodium Level 144 mmol/L (136-145) Potassium Level 4.3 mmol/L (3.5-5.1) Chloride Level 107 mmol/L (98-107) Carbon Dioxide Level 26 mmol/L (21-32) Anion Gap 11 (6-14) Blood Urea Nitrogen 24 mg/dL (8-26) Creatinine 1.1 mg/dL (0.7-1.3) Estimated GFR (Cockcroft-Gault) 82.6 BUN/Creatinine Ratio 22 (6-20) Glucose Level 232 mg/dL (70-99) Calcium Level 8.6 mg/dL (8.5-10.1) Total Bilirubin 0.5 mg/dL (0.2-1.0) Aspartate Amino Transf (AST/SGOT) 74 U/L (15-37) Alanine Aminotransferase (ALT/SGPT) 157 U/L (16-63) Alkaline Phosphatase 115 U/L (46-116) Troponin I Quantitative 0.465 ng/mL (0.000-0.055) Total Protein 5.9 g/dL (6.4-8.2) Albumin 2.3 g/dL (3.4-5.0) Albumin/Globulin Ratio 0.6 (1.0-1.7) Glucose (Fingerstick) 218 mg/dL (70-99) Laboratory Tests Test 02/18/21 11:17 02/18/21 12:30 02/18/21 17:11 02/18/21 21:36 Glucose (Fingerstick) 282 mg/dL (70-99) 283 mg/dL (70-99) 243 mg/dL (70-99) Troponin I Quantitative 1.135 ng/mL (0.000-0.055) Urine Opiates Screen Neg (NEG) Urine Methadone Screen Neg (NEG) Urine Barbiturates Neg (NEG) Urine Phencyclidine Screen Neg (NEG) Urine Amphetamine/Methamphetamine Neg (NEG) Urine Benzodiazepines Screen Pos (NEG) Urine Cocaine Screen Neg (NEG) Urine Cannabinoids Screen Neg (NEG) Urine Ethyl Alcohol Neg (NEG) Test 02/19/21 00:00 02/19/21 00:01 02/19/21 05:30 02/19/21 05:55 Glucose (Fingerstick) 247 mg/dL (70-99) 218 mg/dL (70-99) Troponin I Quantitative 0.364 ng/mL (0.000-0.055) 0.465 ng/mL (0.000-0.055) Sodium Level 144 mmol/L (136-145) Potassium Level 4.3 mmol/L (3.5-5.1) Chloride Level 107 mmol/L (98-107) Carbon Dioxide Level 26 mmol/L (21-32) Anion Gap 11 (6-14) Blood Urea Nitrogen 24 mg/dL (8-26) Creatinine 1.1 mg/dL (0.7-1.3) Estimated GFR (Cockcroft-Gault) 82.6 BUN/Creatinine Ratio 22 (6-20) Glucose Level 232 mg/dL (70-99) Calcium Level 8.6 mg/dL (8.5-10.1) Total Bilirubin 0.5 mg/dL (0.2-1.0) Aspartate Amino Transf (AST/SGOT) 74 U/L (15-37) Alanine Aminotransferase (ALT/SGPT) 157 U/L (16-63) Alkaline Phosphatase 115 U/L (46-116) Total Protein 5.9 g/dL (6.4-8.2) Albumin 2.3 g/dL (3.4-5.0) Albumin/Globulin Ratio 0.6 (1.0-1.7) Microbiology 02/11/21 Blood Culture - Final, Complete NO GROWTH AFTER 5 DAYS 02/11/21 Gram Stain Evaluation - Final, Complete 02/11/21 Respiratory Culture - Final, Complete Medications Current Medications Nicardipine HCl 50 mg/Sodium Chloride 250 ml @ 12.5 mls/hr CONT PRN IV SEE I/O RECORD Last administered on 02/16/21at 14:00; Start 02/09/21 at 06:15 Labetalol HCl (Normodyne Iv Push) 10 mg PRN Q2HR PRN IVP HYPERTENSION Last administered on 02/18/21at 15:06; Start 02/09/21 at 06:15 Lorazepam (Ativan Inj) 2 mg 1X ONCE IVP Last administered on 02/09/21at 10:54; Start 02/09/21 at 10:45; Stop 02/09/21 at 10:46; Status DC Lorazepam (Ativan Inj) 2 mg 1X ONCE IVP Last administered on 02/09/21at 11:00; Start 02/09/21 at 11:00; Stop 02/09/21 at 11:01; Status DC Fentanyl Citrate (Fentanyl 2ml Vial) 25 mcg PRN Q2HR PRN IVP MODERATE TO SEVERE PAIN Last administered on 02/09/21at 13:37; Start 02/09/21 at 13:30; Stop 02/18/21 at 22:53; Status DC Info (Review Meds) 1 ea PRN 1X PRN SEE COMMENTS; Start 02/09/21 at 15:00 Acetaminophen (Tylenol Supp) 650 mg PRN Q6HRS PRN [place] FEVER > 100.5'F or 38'C; Start 02/09/21 at 15:00; Stop 02/11/21 at 21:12; Status DC Albuterol Sulfate (Ventolin Neb Soln) 2.5 mg PRN Q4HRS PRN NEB SHORTNESS OF BREATH; Start 02/09/21 at 15:15 Iohexol (Omnipaque 350 Mg/ml) 75 ml 1X ONCE IV Last administered on 02/09/21at 15:52; Start 02/09/21 at 15:30; Stop 02/09/21 at 15:35; Status DC Iohexol (Omnipaque 350 Mg/ml) 100 ml STK-MED ONCE .ROUTE ; Start 02/09/21 at 15:26; Stop 02/09/21 at 15:27; Status DC Info (CONTRAST GIVEN -- Rx MONITORING) 1 each PRN DAILY PRN MC SEE COMMENTS; Start 02/09/21 at 15:45; Stop 02/11/21 at 15:44; Status DC Propofol 100 ml @ As Directed STK-MED ONCE IV ; Start 02/09/21 at 15:51; Stop 02/09/21 at 15:51; Status DC Rocuronium [place] (Zemuron) 50 mg STK-MED ONCE .ROUTE ; Start 02/09/21 at 15:51; Stop 02/09/21 at 15:51; Status DC Lidocaine HCl (Lidocaine HCl 2% Abboject) 100 mg STK-MED ONCE .ROUTE ; Start 02/09/21 at 15:52; Stop 02/09/21 at 15:53; Status DC Propofol 100 ml @ 3.507 mls/ hr CONT PRN IV PER PROTOCOL Last administered on 02/19/21at 09:09; Start 02/09/21 at 16:15 Lidocaine HCl (Lidocaine HCl 2% Abboject) 100 mg 1X ONCE IV Last administered on 02/09/21at 16:17; Start 02/09/21 at 16:15; Stop 02/09/21 at 16:17; Status DC Rocuronium [place] (Zemuron) 50 mg 1X ONCE IV Last administered on 02/09/21at 16:17; Start 02/09/21 at 16:15; Stop 02/09/21 at 16:17; Status DC Rocuronium [place] (Zemuron) 100 mg STK-MED ONCE .ROUTE ; Start 02/09/21 at 16:31; Stop 02/09/21 at 16:32; Status DC Gelatin (Gelfoam Size 100) 1 each STK-MED ONCE .ROUTE Last administered on 02/09/21at 17:49; Start 02/09/21 at 16:33; Stop 02/09/21 at 16:33; Status DC Bupivacaine HCl/ Epinephrine Bitart (Sensorcain-Epi 0.5%-1:[id number] Mpf) 30 ml STK-MED ONCE .ROUTE Last administered on 02/09/21at 17:49; Start 02/09/21 at 16:33; Stop 02/09/21 at 16:33; Status DC Cellulose (Surgicel Hemostat 4x8) 1 each STK-MED ONCE .ROUTE Last administered on 02/09/21at 18:38; Start 02/09/21 at 16:33; Stop 02/09/21 at 16:33; Status DC Thrombin 20,000 unit STK-MED ONCE TP Last administered on 02/09/21at 17:49; Start 02/09/21 at 16:33; Stop 02/09/21 at 16:33; Status DC Fentanyl Citrate (Fentanyl 2ml Vial) 75 mcg 1X ONCE IVP Last administered on 02/09/21at 16:45; Start 02/09/21 at 16:45; Stop 02/09/21 at 16:47; Status DC Propofol (Diprivan) 200 mg 1X ONCE IV ; Start 02/09/21 at 17:15; Stop 02/09/21 at 17:16; Status DC Lidocaine HCl (Lidocaine HCl 2% Abboject) 100 mg 1X ONCE IV ; Start 02/09/21 at 17:15; Stop 02/09/21 at 17:16; Status DC Rocuronium [place] (Zemuron) 50 mg 1X ONCE IV ; Start 02/09/21 at 17:15; Stop 02/09/21 at 17:16; Status DC Propofol 100 ml @ 0 mls/hr CONT PRN PRN IV SEDATION; Start 02/09/21 at 17:15; Stop 02/10/21 at 05:14; Status DC Cefazolin Sodium (Ancef) 1 gm STK-MED ONCE IVP ; Start 02/09/21 at 17:28; Stop 02/09/21 at 17:28; Status DC Fentanyl Citrate (Fentanyl 2ml Vial) 100 mcg STK-MED ONCE .ROUTE ; Start 02/09/21 at 17:43; Stop 02/09/21 at 17:43; Status DC Rocuronium [place] (Zemuron) 100 mg STK-MED ONCE .ROUTE ; Start 02/09/21 at 17:58; Stop 02/09/21 at 17:59; Status DC Vecuronium [place] (Norcuron Bolus) 10 mg STK-MED ONCE IV ; Start 02/09/21 at 18:49; Stop 02/09/21 at 18:50; Status DC Sodium Chloride (SODIUM CHLORIDE 20ml) 20 ml STK-MED ONCE IJ ; Start 02/09/21 at 18:50; Stop 02/09/21 at 18:50; Status DC Sevoflurane (Ultane) 90 ml STK-MED ONCE IH ; Start 02/09/21 at 19:20; Stop 02/09/21 at 19:21; Status DC Fentanyl Citrate 30 ml @ 2.5 mls/hr CONT PRN IV SEE PROTOCOL Last administered on 02/09/21at 23:40; Start 02/09/21 at 23:15; Stop 02/10/21 at 04:43; Status DC Fentanyl Citrate 55 ml @ 0 mls/hr CONT PRN IV SEE I/O Last administered on 02/18/21at 23:56; Start 02/10/21 at 05:00 Potassium Chloride/Dextrose/ Sod Cl 1,000 ml @ 80 mls/hr [id number] IV ; Start 02/10/21 at 09:00; Stop 02/10/21 at 13:21; Status DC Pantoprazole Sodium (PROTONIX VIAL for IV PUSH) 40 mg DAILYAC IVP Last administered on 02/19/21at 09:22; Start 02/10/21 at 09:00 Lidocaine HCl (Buffered Lidocaine 1%) 3 ml STK-MED ONCE .ROUTE ; Start 02/10/21 at 13:18; Stop 02/10/21 at 13:18; Status DC Sodium Chloride 1,000 ml @ 80 mls/hr [id number] IV Last administered on 02/12/21at 03:00; Start 02/10/21 at 13:30; Stop 02/12/21 at 15:36; Status DC Lidocaine HCl (Buffered Lidocaine 1%) 6 ml 1X ONCE INJ Last administered on 02/10/21at 13:57; Start 02/10/21 at 13:45; Stop 02/10/21 at 13:46; Status DC Potassium Chloride/Water 100 ml @ 100 mls/hr Q1H IV Last administered on 02/11/21at 10:07; Start 02/11/21 at 08:00; Stop 02/11/21 at 09:59; Status DC Piperacillin Sod/ Tazobactam Sod 3.375 gm/Sodium Chloride 50 ml @ 100 mls/hr Q6HRS IV Last administered on 02/19/21at 05:56; Start 02/11/21 at 09:00 Info (Tpn Per Pharmacy) 1 each PRN DAILY PRN MC SEE COMMENTS Last administered on 02/18/21at 14:17; Start 02/11/21 at 11:15 Sodium Chloride 90 meq/Potassium Chloride 50 meq/ Potassium Phosphate 13.6 mmol/Magnesium Sulfate 10 meq/ Calcium Gluconate 10 meq/ Multivitamins 5 ml/Zinc/Copper/ Manganese/ Selenium 1 ml/ Total Parenteral Nutrition/Amino Acids/Dextrose 1,512 ml @ 63 mls/hr TPN CONT IV Last administered on 02/11/21at 22:32; Start 02/11/21 at 22:00; Stop 02/12/21 at 21:59; Status DC Furosemide (Lasix) 20 mg 1X ONCE IVP Last administered on 02/11/21at 15:11; Start 02/11/21 at 15:30; Stop 02/11/21 at 15:31; Status DC Furosemide (Lasix) 20 mg 1X ONCE IVP Last administered on 02/11/21at 17:00; Start 02/11/21 at 17:00; Stop 02/11/21 at 17:01; Status DC Midazolam HCl 100 ml @ 1 mls/hr CONT PRN IV SEE PROTOCOL Last administered on 02/13/21at 20:58; Start 02/11/21 at 19:30 Acetaminophen (Tylenol Supp) 650 mg PRN Q6HRS PRN [place] MILD PAIN / TEMP > 100.3'F; Start 02/11/21 at 21:15 Sodium Chloride 80 meq/Potassium Chloride 50 meq/ Potassium Phosphate 13.6 mmol/Magnesium Sulfate 6 meq/ Calcium Gluconate 10 meq/ Multivitamins 5 ml/Zinc/Copper/ Manganese/ Selenium 1 ml/ Total Parenteral Nutrition/Amino Acids/Dextrose 1,512 ml @ 63 mls/hr TPN CONT IV Last administered on 1at 22:09; Start 02/12/21 at 22:00; Stop 02/13/21 at 21:59; Status DC Furosemide (Lasix) 40 mg 1X ONCE IVP Last administered on 02/12/21at 12:44; Start 02/12/21 at 12:30; Stop 02/12/21 at 12:31; Status DC Insulin Human Lispro (HumaLOG) 0-5 UNITS Q6HRS SQ Last administered on 02/19/21at 05:58; Start 02/12/21 at 12:00 Dextrose (Dextrose 50%-Water Syringe) 12.5 gm PRN Q15MIN PRN IV SEE COMMENTS; Start 02/12/21 at 12:15 Clonidine HCl (Catapres Tts-3) 1 patch WEEKLY TD Last administered on 02/13/21at 11:47; Start 02/13/21 at 11:00 Sodium Chloride 80 meq/Potassium Chloride 50 meq/ Potassium Phosphate 13.6 mmol/Magnesium Sulfate 6 meq/ Calcium Gluconate 10 meq/ Multivitamins 5 ml/Zinc/Copper/ Manganese/ Selenium 1 ml/ Total Parenteral Nutrition/Amino Acids/Dextrose 1,512 ml @ 63 mls/hr TPN CONT IV Last administered on 02/13/21at 21:42; Start 02/13/21 at 22:00; Stop 02/14/21 at 21:59; Status DC Potassium Acetate 50 meq/Potassium Phosphate 13.6 mmol/Magnesium Sulfate 6 meq/ Calcium Gluconate 10 meq/ Multivitamins 5 ml/Zinc/Copper/ Manganese/ Selenium 1 ml/ Total Parenteral Nutrition/Amino Acids/Dextrose 1,512 ml @ 63 mls/hr TPN CONT IV Last administered on 02/14/21at 21:59; Start 02/14/21 at 22:00; Stop 02/15/21 at 21:59; Status DC Insulin Glargine (Lantus Syringe) 10 unit QHS SQ Last administered on 02/15/21at 22:11; Start 02/14/21 at 21:00; Stop 02/16/21 at 12:42; Status DC Hydralazine HCl (Apresoline Inj) 10 mg PRN Q4HRS PRN IVP ELEVATED BP, SEE COMMENTS Last administered on 02/18/21at 12:03; Start 02/14/21 at 16:00 Potassium Acetate 50 meq/Potassium Phosphate 13.6 mmol/Magnesium Sulfate 6 meq/ Calcium Gluconate 10 meq/ Multivitamins 5 ml/Zinc/Copper/ Manganese/ Selenium 1 ml/ Total Parenteral Nutrition/Amino Acids/Dextrose 1,512 ml @ 63 mls/hr TPN CONT IV Last administered on 02/15/21at 22:13; Start 02/15/21 at 22:00; Stop 02/16/21 at 21:59; Status DC Dexmedetomidine HCl 400 mcg/ Sodium Chloride 100 ml @ 0 mls/hr CONT PRN IV PER PROTOCOL Last administered on 02/19/21at 08:05; Start 02/15/21 at 14:15 Sodium Chloride 500 ml @ 500 mls/hr 1X PRN PRN IV SEE COMMENTS; Start 02/15/21 at 14:15 Atropine Sulfate (ATROPINE 0.5mg SYRINGE) 0.5 mg PRN Q5MIN PRN IV SEE COMMENTS; Start 02/15/21 at 14:15 Potassium Acetate 50 meq/Potassium Phosphate 13.6 mmol/Magnesium Sulfate 6 meq/ Calcium Gluconate 10 meq/ Multivitamins 5 ml/Zinc/Copper/ Manganese/ Selenium 1 ml/ Total Parenteral Nutrition/Amino Acids/Dextrose 1,512 ml @ 63 mls/hr TPN CONT IV Last administered on 02/16/21at 22:59; Start 02/16/21 at 22:00; Stop 02/17/21 at 21:59; Status DC Insulin Glargine (Lantus Syringe) 14 unit QHS SQ Last administered on 02/16/21at 21:14; Start 02/16/21 at 21:00; Stop 02/17/21 at 14:15; Status DC Potassium Acetate 50 meq/Potassium Phosphate 13.6 mmol/Magnesium Sulfate 6 meq/ Calcium Gluconate 10 meq/ Multivitamins 5 ml/Zinc/Copper/ Manganese/ Selenium 1 ml/ Total Parenteral Nutrition/Amino Acids/Dextrose 1,512 ml @ 63 mls/hr TPN CONT IV Last administered on 02/17/21at 20:48; Start 02/17/21 at 22:00; Stop 02/18/21 at 21:59; Status DC Dextrose 1,000 ml @ 75 mls/hr [id number] IV Last administered on 02/18/21at 13:51; Start 02/17/21 at 10:30 Insulin Glargine (Lantus Syringe) 18 unit QHS SQ Last administered on 02/17/21at 20:46; Start 02/17/21 at 21:00; Stop 02/18/21 at 11:56; Status DC Insulin Glargine (Lantus Syringe) 22 unit QHS SQ Last administered on 02/18/21at 21:00; Start 02/18/21 at 21:00 Potassium Acetate 50 meq/Potassium Phosphate 13.6 mmol/Magnesium Sulfate 6 meq/ Calcium Gluconate 10 meq/ Multivitamins 5 ml/Zinc/Copper/ Manganese/ Selenium 1 ml/ Total Parenteral Nutrition/Amino Acids/Dextrose 1,512 ml @ 63 mls/hr TPN CONT IV Last administered on 02/18/21at 21:43; Start 02/18/21 at 22:00; Stop 02/19/21 at 21:59 Vitals/I & O Vital Sign - Last 24 Hours 02/18/21 02/18/21 02/18/21 02/18/21 11:00 12:00 12:00 12:01 Temp 98.5 98.5 Pulse 56 64 Resp 29 28 B/P (MAP) 177/100 (125) 187/90 (122) Pulse Ox 99 100 98 O2 Delivery Ventilator Ventilator Mechanical Ventilator Ventilator 02/18/21 02/18/21 02/18/21 02/18/21 12:03 13:00 13:57 14:00 Pulse 76 64 56 Resp 25 20 B/P (MAP) 199/97 168/89 (115) 164/90 (114) Pulse Ox 100 98 99 O2 Delivery Ventilator Ventilator Ventilator 02/18/21 02/18/21 02/18/21 02/18/21 15:00 15:06 15:44 16:00 Pulse 59 85 Resp 22 B/P (MAP) 136/84 (101) 164/93 Pulse Ox 100 99 O2 Delivery Ventilator Ventilator Mechanical Ventilator 02/18/21 02/18/21 02/18/21 02/18/21 16:00 17:00 17:43 18:00 Temp 98.5 98.5 Pulse 80 64 61 Resp 18 20 19 B/P (MAP) 133/86 (102) 134/93 (107) 144/92 (109) Pulse Ox 100 99 99 99 O2 Delivery Ventilator Ventilator Ventilator Ventilator 02/18/21 02/18/21 02/18/21 02/18/21 19:00 20:00 20:00 20:10 Temp 98.1 98.1 Pulse 62 58 Resp 16 17 B/P (MAP) 135/92 (106) 132/85 (101) Pulse Ox 100 100 100 O2 Delivery Ventilator Ventilator Mechanical Ventilator Ventilator 02/18/21 02/18/21 02/18/21 02/18/21 21:00 22:00 23:00 23:50 Pulse 58 61 58 Resp 16 18 18 B/P (MAP) 117/88 (98) 145/86 (105) 124/80 (95) Pulse Ox 100 99 100 99 O2 Delivery Ventilator Ventilator Ventilator Ventilator 02/18/21 02/18/21 02/19/21 02/19/21 23:56 23:59 00:43 01:00 Temp 98.4 98.4 Pulse 62 Resp 18 B/P (MAP) 144/85 (104) Pulse Ox 100 100 100 O2 Delivery Mechanical Ventilator Ventilator 02/19/21 02/19/21 02/19/21 02/19/21 02:00 02:12 03:00 04:00 Temp 98.9 98.9 Pulse 65 67 61 Resp 17 17 17 B/P (MAP) 130/81 (97) 131/69 (89) 136/81 (99) Pulse Ox 100 99 98 98 O2 Delivery Ventilator Ventilator Ventilator Ventilator 02/19/21 02/19/21 02/19/21 02/19/21 04:00 05:00 05:15 06:00 Pulse 53 60 Resp 18 17 B/P (MAP) 134/62 (86) 159/69 (99) Pulse Ox 99 99 100 O2 Delivery Mechanical Ventilator Ventilator Ventilator Ventilator 02/19/21 02/19/21 02/19/21 02/19/21 07:00 07:55 07:58 07:59 Temp 98.7 98.7 Pulse 61 60 Resp 16 18 B/P (MAP) 136/80 (98) 131/79 (96) Pulse Ox 99 99 99 O2 Delivery Ventilator Ventilator Ventilator Mechanical Ventilator 02/19/21 02/19/21 02/19/21 09:17 09:32 10:14 Pulse 61 61 Resp 20 20 B/P (MAP) 133/84 (100) 135/82 (99) Pulse Ox 99 99 99 O2 Delivery Ventilator Ventilator Ventilator Intake and Output 02/18/21 02/18/21 02/19/21 15:00 23:00 07:00 Intake Total 70246.4 ml 1283 ml Output Total 925 ml 1275 ml 725 ml Balance -925 ml 16172.4 ml 558 ml Justicifation of Admission Dx: Justifications for Admission: Justification of Admission Dx: Yes Acute Hemorrhagic Stroke: Acute Hemorrhagic Stroke LESLI ALCOCER MD Feb 19, 2021 10:56
--- NOTE | 2021-02-19 11:13 | PDOC ---
DATE OF SERVICE DATE: 02/19/21 TIME: 11:13 SUBJECTIVE ROS Remains Intubated, sedated OBJECTIVE Vital Signs Vital Signs Date Time Temp Pulse Resp B/P (MAP) Pulse Ox O2 Delivery O2 Flow Rate FiO2 02/19/21 10:14 61 20 135/82 (99) 99 Ventilator 02/19/21 07:00 98.7 98.7 I & 0 Intake and Output 02/19/21 07:00 Intake Total 12381.4 ml Output Total 2925 ml Balance 68747.4 [place] 64044.4 ml Output Urine Total 2925 ml PHYSICAL EXAM Physical Exam General Intubated/MV HEEN Intubated Neck Supple Lungs CTA ant CV S1 S2 Abd Soft, NT Ext No LE edema, No cyanosis Moore in place Skin No rash Neuro - exam per neurologist DIAGNOSIS/ASSESSMENT Assessment & Plan MARVIN -ATN Resolved ,Supportive care, Maintain Hydration, Electrolytes stable, Large right temporo-occipital intraparenchymal bleed, most likely lobar hemorrhage s/p craniotomy 02/09 evening HypoKalemia Corrected HypetNatremia- improving, mildly elevated after correcting for Glucose. On TPN Hypertensive emergency POA - Cardene gtt as indicated Acute hypoxic respiratory failure secondary to intracranial hemorrhage and hypertensive emergency. Hypoxia secondary to basilar atelectasis contributed by encephalopathy Long history of tobaccoism. CT angiogram showed bullous emphysema in the upper lobes. Nutrition - TPN COMMENT/RELEVANT DATA Meds Current Medications Medications (Trade) Dose Ordered Sig/Lorraine Start Time Stop Time Status Last Admin Dose Admin Acetaminophen (Tylenol Supp) 650 mg PRN Q6HRS PRN 02/11/21 21:15 Albuterol Sulfate (Ventolin Neb Soln) 2.5 mg PRN Q4HRS PRN 02/09/21 15:15 Atropine Sulfate (ATROPINE 0.5mg SYRINGE) 0.5 mg PRN Q5MIN PRN 02/15/21 14:15 Bupivacaine HCl/ Epinephrine Bitart (Sensorcain-Epi 0.5%-1:699689 Mpf) 30 ml STK-MED ONCE 02/09/21 16:33 02/09/21 16:33 DC 02/09/21 17:49 5 ML Cefazolin Sodium (Ancef) 1 gm STK-MED ONCE 02/09/21 17:28 02/09/21 17:28 DC Cellulose (Surgicel Hemostat 4x8) 1 each STK-MED ONCE 02/09/21 16:33 02/09/21 16:33 DC 02/09/21 18:38 1 EACH Clonidine HCl (Catapres Tts-3) 1 patch WEEKLY 02/13/21 11:00 02/13/21 11:47 1 PATCH Dexmedetomidine HCl 400 mcg/ Sodium Chloride 100 ml @ 0 mls/hr CONT PRN 02/15/21 14:15 02/19/21 08:05 23.4 MLS/HR Dextrose 1,000 ml @ 75 mls/hr [id number] 02/17/21 10:30 02/18/21 13:51 75 MLS/HR Dextrose (Dextrose 50%-Water Syringe) 12.5 gm PRN Q15MIN PRN 02/12/21 12:15 Fentanyl Citrate 55 ml @ 0 mls/hr CONT PRN 02/10/21 05:00 02/18/21 23:56 1 MLS/HR Fentanyl Citrate (Fentanyl 2ml Vial) 100 mcg STK-MED ONCE 02/09/21 17:43 02/09/21 17:43 DC Furosemide (Lasix) 40 mg 1X ONCE 02/12/21 12:30 02/12/21 12:31 DC 02/12/21 12:44 40 MG Gelatin (Gelfoam Size 100) 1 each STK-MED ONCE 02/09/21 16:33 02/09/21 16:33 DC 02/09/21 17:49 1 EACH Hydralazine HCl (Apresoline Inj) 10 mg PRN Q4HRS PRN 02/14/21 16:00 02/18/21 12:03 10 MG Info (CONTRAST GIVEN -- Rx MONITORING) 1 each PRN DAILY PRN 02/09/21 15:45 02/11/21 15:44 DC Info (Review Meds) 1 ea PRN 1X PRN 02/09/21 15:00 Info (Tpn Per Pharmacy) 1 each PRN DAILY PRN 02/11/21 11:15 02/18/21 14:17 1 EACH Insulin Glargine (Lantus Syringe) 22 unit QHS 02/18/21 21:00 02/18/21 21:00 22 UNIT Insulin Human Lispro (HumaLOG) 0-5 UNITS Q6HRS 02/12/21 12:00 02/19/21 05:58 2 UNITS Iohexol (Omnipaque 350 Mg/ml) 100 ml STK-MED ONCE 02/09/21 15:26 02/09/21 15:27 DC Labetalol HCl (Normodyne Iv Push) 10 mg PRN Q2HR PRN 02/09/21 06:15 02/18/21 15:06 10 MG Lidocaine HCl (Buffered Lidocaine 1%) 6 ml 1X ONCE 02/10/21 13:45 02/10/21 13:46 DC 02/10/21 13:57 3 ML Lidocaine HCl (Lidocaine HCl 2% Abboject) 100 mg 1X ONCE 02/09/21 17:15 02/09/21 17:16 DC Lorazepam (Ativan Inj) 2 mg 1X ONCE 02/09/21 11:00 02/09/21 11:01 DC 02/09/21 11:00 2 MG Midazolam HCl 100 ml @ 1 mls/hr CONT PRN 02/11/21 19:30 02/13/21 20:58 5 MLS/HR Nicardipine HCl 50 mg/Sodium Chloride 250 ml @ 12.5 mls/hr CONT PRN 02/09/21 06:15 02/16/21 14:00 50 MLS/HR Pantoprazole Sodium (PROTONIX VIAL for IV PUSH) 40 mg DAILYAC 02/10/21 09:00 02/19/21 09:22 40 MG Piperacillin Sod/ Tazobactam Sod 3.375 gm/Sodium Chloride 50 ml @ 100 mls/hr Q6HRS 02/11/21 09:00 02/19/21 05:56 100 MLS/HR Potassium Chloride/Dextrose/ Sod Cl 1,000 ml @ 80 mls/hr [id number] 02/10/21 09:00 02/10/21 13:21 DC Potassium Chloride/Water 100 ml @ 100 mls/hr Q1H 02/11/21 08:00 02/11/21 09:59 DC 02/11/21 10:07 100 MLS/HR Potassium Acetate 50 meq/Potassium Phosphate 13.6 mmol/Magnesium Sulfate 6 meq/ Calcium Gluconate 10 meq/ Multivitamins 5 ml/Zinc/Copper/ Manganese/ Selenium 1 ml/ Total Parenteral Nutrition/Amino Acids/Dextrose 1,512 ml @ 63 mls/hr TPN CONT 02/18/21 22:00 02/19/21 21:59 02/18/21 21:43 63 MLS/HR Propofol 100 ml @ 0 mls/hr CONT PRN PRN 02/09/21 17:15 02/10/21 05:14 DC Propofol (Diprivan) 200 mg 1X ONCE 02/09/21 17:15 02/09/21 17:16 DC Rocuronium [place] (Zemuron) 100 mg STK-MED ONCE 02/09/21 17:58 02/09/21 17:59 DC Sevoflurane (Ultane) 90 ml STK-MED ONCE 02/09/21 19:20 02/09/21 19:21 DC Sodium Chloride 500 ml @ 500 mls/hr 1X PRN PRN 02/15/21 14:15 Sodium Chloride (SODIUM CHLORIDE 20ml) 20 ml STK-MED ONCE 02/09/21 18:50 02/09/21 18:50 DC Sodium Chloride 80 meq/Potassium Chloride 50 meq/ Potassium Phosphate 13.6 mmol/Magnesium Sulfate 6 meq/ Calcium Gluconate 10 meq/ Multivitamins 5 ml/Zinc/Copper/ Manganese/ Selenium 1 ml/ Total Parenteral Nutrition/Amino Acids/Dextrose 1,512 ml @ 63 mls/hr TPN CONT 02/13/21 22:00 02/14/21 21:59 DC 02/13/21 21:42 63 MLS/HR Sodium Chloride 90 meq/Potassium Chloride 50 meq/ Potassium Phosphate 13.6 mmol/Magnesium Sulfate 10 meq/ Calcium Gluconate 10 meq/ Multivitamins 5 ml/Zinc/Copper/ Manganese/ Selenium 1 ml/ Total Parenteral Nutrition/Amino Acids/Dextrose 1,512 ml @ 63 mls/hr TPN CONT 02/11/21 22:00 02/12/21 21:59 DC 02/11/21 22:32 63 MLS/HR Thrombin 20,000 unit STK-MED ONCE 02/09/21 16:33 02/09/21 16:33 DC 02/09/21 17:49 20,000 UNIT Vecuronium [place] (Norcuron Bolus) 10 mg STK-MED ONCE 02/09/21 18:49 02/09/21 18:50 DC Lab Laboratory Tests Test 02/18/21 11:17 02/18/21 12:30 02/18/21 17:11 02/18/21 21:36 Glucose (Fingerstick) 282 mg/dL (70-99) 283 mg/dL (70-99) 243 mg/dL (70-99) Troponin I Quantitative 1.135 ng/mL (0.000-0.055) Urine Opiates Screen Neg (NEG) Urine Methadone Screen Neg (NEG) Urine Barbiturates Neg (NEG) Urine Phencyclidine Screen Neg (NEG) Urine Amphetamine/Methamphetamine Neg (NEG) Urine Benzodiazepines Screen Pos (NEG) Urine Cocaine Screen Neg (NEG) Urine Cannabinoids Screen Neg (NEG) Urine Ethyl Alcohol Neg (NEG) Test 02/19/21 00:00 02/19/21 00:01 02/19/21 05:30 02/19/21 05:55 Glucose (Fingerstick) 247 mg/dL (70-99) 218 mg/dL (70-99) Troponin I Quantitative 0.364 ng/mL (0.000-0.055) 0.465 ng/mL (0.000-0.055) Sodium Level 144 mmol/L (136-145) Potassium Level 4.3 mmol/L (3.5-5.1) Chloride Level 107 mmol/L (98-107) Carbon Dioxide Level 26 mmol/L (21-32) Anion Gap 11 (6-14) Blood Urea Nitrogen 24 mg/dL (8-26) Creatinine 1.1 mg/dL (0.7-1.3) Estimated GFR (Cockcroft-Gault) 82.6 BUN/Creatinine Ratio 22 (6-20) Glucose Level 232 mg/dL (70-99) Calcium Level 8.6 mg/dL (8.5-10.1) Total Bilirubin 0.5 mg/dL (0.2-1.0) Aspartate Amino Transf (AST/SGOT) 74 U/L (15-37) Alanine Aminotransferase (ALT/SGPT) 157 U/L (16-63) Alkaline Phosphatase 115 U/L (46-116) Total Protein 5.9 g/dL (6.4-8.2) Albumin 2.3 g/dL (3.4-5.0) Albumin/Globulin Ratio 0.6 (1.0-1.7) Results All relevant outside records, renal labs, imaging studies, telemetry/EKG's were reviewed. Justicifation of Admission Dx: Justifications for Admission: Justification of Admission Dx: Yes Acute Hemorrhagic Stroke: Acute Hemorrhagic Stroke YULIA CAMACHO MD Feb 19, 2021 11:13
[2021-02-19 11:43] LABS: MAGNESIUM 1.9 mg/dL (1.8-2.4); PHOSPHORUS 4.5 mg/dL (2.6-4.7)
[2021-02-19] MEDS: TPN PER PHARMACY MC PRN (12:06)
--- NOTE | 2021-02-19 12:06 | NUR ---
Pharmacy TPN Dosing Note S: COOPER CHAVEZ is a 61 year old M Currently receiving Central Continuous TPN started 02/11/21 B:Pertinent PMH: ILEUS, UNABLE TO START TUBE FEEDS Height: 6 feet, 2 inches Weight: 115.0 kg Current diet: NPO LABS: Sodium: 144 Potassium: 4.3 Chloride: 107 Calcium: 8.6 Corrected Calcium: 9.96 Magnesium: 1.9 CO2: 26 SCr: 1.1 Glucose: 232, 218 Albumin: 2.3 AST: 74 ALT: 157 TPN FORMULA: TPN TYPE: Central Continuous AMINO ACIDS: 60 gm DEXTROSE: 195 gm POTASSIUM ACETATE: 50 mEq POTASSIUM PHOSPHATE: 13.6 mmol MAGNESIUM: 6 mEq CALCIUM: 10 mEq MULTIPLE VITAMIN: 5 ml TRACE ELEMENTS: 1 ml TPN PLAN: -Corrected serum sodium high, increase TPN rate for free water admin. -Other electrolytes appear WNL and stable. -CMP, mag, phos, TG tomorrow per protocol R: Change TPN rate to 85 ml/hr and above formula. Will monitor electrolytes, glucose, and tolerance to TPN. ODELL SALINAS [facility], 02/19/21 [id number]
--- NOTE | 2021-02-19 13:05 | PDOC ---
PROGRESS NOTES Date of Service DATE: 02/19/21 TIME: 13:03 Subjective Subjective POD# 11 S/P Right occipital craniotomy with evacuation of intracerebral hematoma Sedated on vent Objective Objective Vital Signs Date Time Temp Pulse Resp B/P (MAP) Pulse Ox O2 Delivery O2 Flow Rate FiO2 02/19/21 13:02 62 18 146/89 (108) 98 Ventilator 02/19/21 11:15 99.5 99.5 Intake and Output 02/19/21 07:00 Intake Total 18250.4 ml Output Total 2925 ml Balance 59385.4 ml [place] 44943.4 ml Output Urine Total 2925 ml Physical Exam General: Other (sedated on vent) Skin: Other (dressing dry and intact) Plan Plan of Care wean sedation as tolerated BP control fluids per nephrology D/W RN Comment Review of Relevant I have reviewed the following items neela (where applicable) has been applied. Labs Laboratory Tests Test 02/17/21 17:45 02/17/21 20:45 02/18/21 00:26 02/18/21 05:15 Glucose (Fingerstick) 293 mg/dL (70-99) 310 mg/dL (70-99) 279 mg/dL (70-99) White Blood Count 6.7 x10^3/uL (4.0-11.0) Red Blood Count 3.90 x10^6/uL (4.30-5.70) Hemoglobin 11.5 g/dL (13.0-17.5) Hematocrit 35.9 % (39.0-53.0) Mean Corpuscular Volume 92 fL (79-100) Mean Corpuscular Hemoglobin 30 pg (25-35) Mean Corpuscular Hemoglobin Concent 32 g/dL (31-37) Red Cell Distribution Width 14.1 % (11.5-14.5) Platelet Count 241 x10^3/uL (140-400) Neutrophils (%) (Auto) 67 % (31-73) Lymphocytes (%) (Auto) 21 % (24-48) Monocytes (%) (Auto) 10 % (0-9) Eosinophils (%) (Auto) 2 % (0-3) Basophils (%) (Auto) 0 % (0-3) Neutrophils # (Auto) 4.4 x10^3/uL (1.8-7.7) Lymphocytes # (Auto) 1.4 x10^3/uL (1.0-4.8) Monocytes # (Auto) 0.6 x10^3/uL (0.0-1.1) Eosinophils # (Auto) 0.2 x10^3/uL (0.0-0.7) Basophils # (Auto) 0.0 x10^3/uL (0.0-0.2) Sodium Level 143 mmol/L (136-145) Potassium Level 4.4 mmol/L (3.5-5.1) Chloride Level 109 mmol/L (98-107) Carbon Dioxide Level 26 mmol/L (21-32) Anion Gap 8 (6-14) Blood Urea Nitrogen 26 mg/dL (8-26) Creatinine 0.9 mg/dL (0.7-1.3) Estimated GFR (Cockcroft-Gault) 104.2 Glucose Level 335 mg/dL (70-99) Calcium Level 9.3 mg/dL (8.5-10.1) Phosphorus Level 4.5 mg/dL (2.6-4.7) Magnesium Level 2.1 mg/dL (1.8-2.4) Test 02/18/21 06:02 02/18/21 11:17 02/18/21 12:30 02/18/21 17:11 Glucose (Fingerstick) 323 mg/dL (70-99) 282 mg/dL (70-99) 283 mg/dL (70-99) Troponin I Quantitative 1.135 ng/mL (0.000-0.055) Urine Opiates Screen Neg (NEG) Urine Methadone Screen Neg (NEG) Urine Barbiturates Neg (NEG) Urine Phencyclidine Screen Neg (NEG) Urine Amphetamine/Methamphetamine Neg (NEG) Urine Benzodiazepines Screen Pos (NEG) Urine Cocaine Screen Neg (NEG) Urine Cannabinoids Screen Neg (NEG) Urine Ethyl Alcohol Neg (NEG) Test 02/18/21 21:36 02/19/21 00:00 02/19/21 00:01 02/19/21 05:30 Glucose (Fingerstick) 243 mg/dL (70-99) 247 mg/dL (70-99) Troponin I Quantitative 0.364 ng/mL (0.000-0.055) 0.465 ng/mL (0.000-0.055) Sodium Level 144 mmol/L (136-145) Potassium Level 4.3 mmol/L (3.5-5.1) Chloride Level 107 mmol/L (98-107) Carbon Dioxide Level 26 mmol/L (21-32) Anion Gap 11 (6-14) Blood Urea Nitrogen 24 mg/dL (8-26) Creatinine 1.1 mg/dL (0.7-1.3) Estimated GFR (Cockcroft-Gault) 82.6 BUN/Creatinine Ratio 22 (6-20) Glucose Level 232 mg/dL (70-99) Calcium Level 8.6 mg/dL (8.5-10.1) Phosphorus Level 4.5 mg/dL (2.6-4.7) Magnesium Level 1.9 mg/dL (1.8-2.4) Total Bilirubin 0.5 mg/dL (0.2-1.0) Aspartate Amino Transf (AST/SGOT) 74 U/L (15-37) Alanine Aminotransferase (ALT/SGPT) 157 U/L (16-63) Alkaline Phosphatase 115 U/L (46-116) Total Protein 5.9 g/dL (6.4-8.2) Albumin 2.3 g/dL (3.4-5.0) Albumin/Globulin Ratio 0.6 (1.0-1.7) Test 02/19/21 05:55 02/19/21 12:55 Glucose (Fingerstick) 218 mg/dL (70-99) 222 mg/dL (70-99) Laboratory Tests Test 02/18/21 17:11 02/18/21 21:36 02/19/21 00:00 02/19/21 00:01 Glucose (Fingerstick) 283 mg/dL (70-99) 243 mg/dL (70-99) 247 mg/dL (70-99) Troponin I Quantitative 0.364 ng/mL (0.000-0.055) Test 02/19/21 05:30 02/19/21 05:55 02/19/21 12:55 Sodium Level 144 mmol/L (136-145) Potassium Level 4.3 mmol/L (3.5-5.1) Chloride Level 107 mmol/L (98-107) Carbon Dioxide Level 26 mmol/L (21-32) Anion Gap 11 (6-14) Blood Urea Nitrogen 24 mg/dL (8-26) Creatinine 1.1 mg/dL (0.7-1.3) Estimated GFR (Cockcroft-Gault) 82.6 BUN/Creatinine Ratio 22 (6-20) Glucose Level 232 mg/dL (70-99) Calcium Level 8.6 mg/dL (8.5-10.1) Phosphorus Level 4.5 mg/dL (2.6-4.7) Magnesium Level 1.9 mg/dL (1.8-2.4) Total Bilirubin 0.5 mg/dL (0.2-1.0) Aspartate Amino Transf (AST/SGOT) 74 U/L (15-37) Alanine Aminotransferase (ALT/SGPT) 157 U/L (16-63) Alkaline Phosphatase 115 U/L (46-116) Troponin I Quantitative 0.465 ng/mL (0.000-0.055) Total Protein 5.9 g/dL (6.4-8.2) Albumin 2.3 g/dL (3.4-5.0) Albumin/Globulin Ratio 0.6 (1.0-1.7) Glucose (Fingerstick) 218 mg/dL (70-99) 222 mg/dL (70-99) Microbiology 02/11/21 Blood Culture - Final, Complete NO GROWTH AFTER 5 DAYS 02/11/21 Gram Stain Evaluation - Final, Complete 02/11/21 Respiratory Culture - Final, Complete Medications Current Medications Nicardipine HCl 50 mg/Sodium Chloride 250 ml @ 12.5 mls/hr CONT PRN IV SEE I/O RECORD Last administered on 02/16/21at 14:00; Start 02/09/21 at 06:15 Labetalol HCl (Normodyne Iv Push) 10 mg PRN Q2HR PRN IVP HYPERTENSION Last administered on 02/18/21at 15:06; Start 02/09/21 at 06:15 Lorazepam (Ativan Inj) 2 mg 1X ONCE IVP Last administered on 02/09/21at 10:54; Start 02/09/21 at 10:45; Stop 02/09/21 at 10:46; Status DC Lorazepam (Ativan Inj) 2 mg 1X ONCE IVP Last administered on 02/09/21at 11:00; Start 02/09/21 at 11:00; Stop 02/09/21 at 11:01; Status DC Fentanyl Citrate (Fentanyl 2ml Vial) 25 mcg PRN Q2HR PRN IVP MODERATE TO SEVERE PAIN Last administered on 02/09/21at 13:37; Start 02/09/21 at 13:30; Stop 02/18/21 at 22:53; Status DC Info (Review Meds) 1 ea PRN 1X PRN MC SEE COMMENTS; Start 02/09/21 at 15:00 Acetaminophen (Tylenol Supp) 650 mg PRN Q6HRS PRN [place] FEVER > 100.5'F or 38'C; Start 02/09/21 at 15:00; Stop 02/11/21 at 21:12; Status DC Albuterol Sulfate (Ventolin Neb Soln) 2.5 mg PRN Q4HRS PRN NEB SHORTNESS OF BREATH; Start 02/09/21 at 15:15 Iohexol (Omnipaque 350 Mg/ml) 75 ml 1X ONCE IV Last administered on 02/09/21at 15:52; Start 02/09/21 at 15:30; Stop 02/09/21 at 15:35; Status DC Iohexol (Omnipaque 350 Mg/ml) 100 ml STK-MED ONCE .ROUTE ; Start 02/09/21 at 15:26; Stop 02/09/21 at 15:27; Status DC Info (CONTRAST GIVEN -- Rx MONITORING) 1 each PRN DAILY PRN MC SEE COMMENTS; Start 02/09/21 at 15:45; Stop 02/11/21 at 15:44; Status DC Propofol 100 ml @ As Directed STK-MED ONCE IV ; Start 02/09/21 at 15:51; Stop 02/09/21 at 15:51; Status DC Rocuronium [place] (Zemuron) 50 mg STK-MED ONCE .ROUTE ; Start 02/09/21 at 15:51; Stop 02/09/21 at 15:51; Status DC Lidocaine HCl (Lidocaine HCl 2% Abboject) 100 mg STK-MED ONCE .ROUTE ; Start 02/09/21 at 15:52; Stop 02/09/21 at 15:53; Status DC Propofol 100 ml @ 3.507 mls/ hr CONT PRN IV PER PROTOCOL Last administered on 02/19/21at 09:09; Start 02/09/21 at 16:15 Lidocaine HCl (Lidocaine HCl 2% Abboject) 100 mg 1X ONCE IV Last administered on 02/09/21 16:17; Start 02/09/21 at 16:15; Stop 02/09/21 at 16:17; Status DC Rocuronium [place] (Zemuron) 50 mg 1X ONCE IV Last administered on 02/09/21 16:17; Start 02/09/21 at 16:15; Stop 02/09/21 at 16:17; Status DC Rocuronium [place] (Zemuron) 100 mg STK-MED ONCE .ROUTE ; Start 02/09/21 at 16:31; Stop 02/09/21 at 16:32; Status DC Gelatin (Gelfoam Size 100) 1 each STK-MED ONCE .ROUTE Last administered on 02/09/21 17:49; Start 02/09/21 at 16:33; Stop 02/09/21 at 16:33; Status DC Bupivacaine HCl/ Epinephrine Bitart (Sensorcain-Epi 0.5%-1:[id number] Mpf) 30 ml STK-MED ONCE .ROUTE Last administered on 02/09/21 17:49; Start 02/09/21 at 16:33; Stop 02/09/21 at 16:33; Status DC Cellulose (Surgicel Hemostat 4x8) 1 each STK-MED ONCE .ROUTE Last administered on 02/09/21 18:38; Start 02/09/21 at 16:33; Stop 02/09/21 at 16:33; Status DC Thrombin 20,000 unit STK-MED ONCE TP Last administered on 02/09/21 17:49; Start 02/09/21 at 16:33; Stop 02/09/21 at 16:33; Status DC Fentanyl Citrate (Fentanyl 2ml Vial) 75 mcg 1X ONCE IVP Last administered on 16:45; Start 02/09/21 at 16:45; Stop 02/09/21 at 16:47; Status DC Propofol (Diprivan) 200 mg 1X ONCE IV ; Start 02/09/21 at 17:15; Stop 02/09/21 at 17:16; Status DC Lidocaine HCl (Lidocaine HCl 2% Abboject) 100 mg 1X ONCE IV ; Start 02/09/21 at 17:15; Stop 02/09/21 at 17:16; Status DC Rocuronium [place] (Zemuron) 50 mg 1X ONCE IV ; Start 02/09/21 at 17:15; Stop 02/09/21 at 17:16; Status DC Propofol 100 ml @ 0 mls/hr CONT PRN PRN IV SEDATION; Start 02/09/21 at 17:15; Stop 02/10/21 at 05:14; Status DC Cefazolin Sodium (Ancef) 1 gm STK-MED ONCE IVP ; Start 02/09/21 at 17:28; Stop 02/09/21 at 17:28; Status DC Fentanyl Citrate (Fentanyl 2ml Vial) 100 mcg STK-MED ONCE .ROUTE ; Start 02/09/21 at 17:43; Stop 02/09/21 at 17:43; Status DC Rocuronium [place] (Zemuron) 100 mg STK-MED ONCE .ROUTE ; Start 02/09/21 at 17:58; Stop 02/09/21 at 17:59; Status DC Vecuronium [place] (Norcuron Bolus) 10 mg STK-MED ONCE IV ; Start 02/09/21 at 18:49; Stop 02/09/21 at 18:50; Status DC Sodium Chloride (SODIUM CHLORIDE 20ml) 20 ml STK-MED ONCE IJ ; Start 02/09/21 at 18:50; Stop 02/09/21 at 18:50; Status DC Sevoflurane (Ultane) 90 ml STK-MED ONCE IH ; Start 02/09/21 at 19:20; Stop 02/09/21 at 19:21; Status DC Fentanyl Citrate 30 ml @ 2.5 mls/hr CONT PRN IV SEE PROTOCOL Last administered on 02/09/21at 23:40; Start 02/09/21 at 23:15; Stop 02/10/21 at 04:43; Status DC Fentanyl Citrate 55 ml @ 0 mls/hr CONT PRN IV SEE I/O Last administered on 02/18/21at 23:56; Start 02/10/21 at 05:00 Potassium Chloride/Dextrose/ Sod Cl 1,000 ml @ 80 mls/hr [id number] IV ; Start 02/10/21 at 09:00; Stop 02/10/21 at 13:21; Status DC Pantoprazole Sodium (PROTONIX VIAL for IV PUSH) 40 mg DAILYAC IVP Last administered on 02/19/21at 09:22; Start 02/10/21 at 09:00 Lidocaine HCl (Buffered Lidocaine 1%) 3 ml STK-MED ONCE .ROUTE ; Start 02/10/21 at 13:18; Stop 02/10/21 at 13:18; Status DC Sodium Chloride 1,000 ml @ 80 mls/hr [id number] IV Last administered on 02/12/21at 03:00; Start 02/10/21 at 13:30; Stop 02/12/21 at 15:36; Status DC Lidocaine HCl (Buffered Lidocaine 1%) 6 ml 1X ONCE INJ Last administered on 02/10/21at 13:57; Start 02/10/21 at 13:45; Stop 02/10/21 at 13:46; Status DC Potassium Chloride/Water 100 ml @ 100 mls/hr Q1H IV Last administered on 02/11/21at 10:07; Start 02/11/21 at 08:00; Stop 02/11/21 at 09:59; Status DC Piperacillin Sod/ Tazobactam Sod 3.375 gm/Sodium Chloride 50 ml @ 100 mls/hr Q6HRS IV Last administered on 02/19/21at 12:48; Start 02/11/21 at 09:00 Info (Tpn Per Pharmacy) 1 each PRN DAILY PRN MC SEE COMMENTS Last administered on 02/19/21at 12:06; Start 02/11/21 at 11:15 Sodium Chloride 90 meq/Potassium Chloride 50 meq/ Potassium Phosphate 13.6 mmol/Magnesium Sulfate 10 meq/ Calcium Gluconate 10 meq/ Multivitamins 5 ml/Zinc/Copper/ Manganese/ Selenium 1 ml/ Total Parenteral Nutrition/Amino Acids/Dextrose 1,512 ml @ 63 mls/hr TPN CONT IV Last administered on 02/11/21at 22:32; Start 02/11/21 at 22:00; Stop 02/12/21 at 21:59; Status DC Furosemide (Lasix) 20 mg 1X ONCE IVP Last administered on 02/11/21at 15:11; Start 02/11/21 at 15:30; Stop 02/11/21 at 15:31; Status DC Furosemide (Lasix) 20 mg 1X ONCE IVP Last administered on 02/11/21at 17:00; Start 02/11/21 at 17:00; Stop 02/11/21 at 17:01; Status DC Midazolam HCl 100 ml @ 1 mls/hr CONT PRN IV SEE PROTOCOL Last administered on 02/13/21at 20:58; Start 02/11/21 at 19:30 Acetaminophen (Tylenol Supp) 650 mg PRN Q6HRS PRN [place] MILD PAIN / TEMP > 100.3'F; Start 02/11/21 at 21:15 Sodium Chloride 80 meq/Potassium Chloride 50 meq/ Potassium Phosphate 13.6 mmol/Magnesium Sulfate 6 meq/ Calcium Gluconate 10 meq/ Multivitamins 5 ml/Zinc/Copper/ Manganese/ Selenium 1 ml/ Total Parenteral Nutrition/Amino Acids/Dextrose 1,512 ml @ 63 mls/hr TPN CONT IV Last administered on 02/12/21at 22:09; Start 02/12/21 at 22:00; Stop 02/13/21 at 21:59; Status DC Furosemide (Lasix) 40 mg 1X ONCE IVP Last administered on 02/12/21at 12:44; Start 02/12/21 at 12:30; Stop 02/12/21 at 12:31; Status DC Insulin Human Lispro (HumaLOG) 0-5 UNITS Q6HRS SQ Last administered on 02/19/21at 12:56; Start 02/12/21 at 12:00 Dextrose (Dextrose 50%-Water Syringe) 12.5 gm PRN Q15MIN PRN IV SEE COMMENTS; Start 02/12/21 at 12:15 Clonidine HCl (Catapres Tts-3) 1 patch WEEKLY TD Last administered on 02/13/21at 11:47; Start 02/13/21 at 11:00 Sodium Chloride 80 meq/Potassium Chloride 50 meq/ Potassium Phosphate 13.6 mmol/Magnesium Sulfate 6 meq/ Calcium Gluconate 10 meq/ Multivitamins 5 ml/Zinc/Copper/ Manganese/ Selenium 1 ml/ Total Parenteral Nutrition/Amino Acids/Dextrose 1,512 ml @ 63 mls/hr TPN CONT IV Last administered on 02/13/21at 21:42; Start 02/13/21 at 22:00; Stop 02/14/21 at 21:59; Status DC Potassium Acetate 50 meq/Potassium Phosphate 13.6 mmol/Magnesium Sulfate 6 meq/ Calcium Gluconate 10 meq/ Multivitamins 5 ml/Zinc/Copper/ Manganese/ Selenium 1 ml/ Total Parenteral Nutrition/Amino Acids/Dextrose 1,512 ml @ 63 mls/hr TPN CONT IV Last administered on 02/14/21at 21:59; Start 02/14/21 at 22:00; Stop 02/15/21 at 21:59; Status DC Insulin Glargine (Lantus Syringe) 10 unit QHS SQ Last administered on 02/15/21at 22:11; Start 02/14/21 at 21:00; Stop 02/16/21 at 12:42; Status DC Hydralazine HCl (Apresoline Inj) 10 mg PRN Q4HRS PRN IVP ELEVATED BP, SEE COMMENTS Last administered on 02/18/21at 12:03; Start 02/14/21 at 16:00 Potassium Acetate 50 meq/Potassium Phosphate 13.6 mmol/Magnesium Sulfate 6 meq/ Calcium Gluconate 10 meq/ Multivitamins 5 ml/Zinc/Copper/ Manganese/ Selenium 1 ml/ Total Parenteral Nutrition/Amino Acids/Dextrose 1,512 ml @ 63 mls/hr TPN CONT IV Last administered on 02/15/21at 22:13; Start 02/15/21 at 22:00; Stop 02/16/21 at 21:59; Status DC Dexmedetomidine HCl 400 mcg/ Sodium Chloride 100 ml @ 0 mls/hr CONT PRN IV PER PROTOCOL Last administered on 02/19/21at 12:43; Start 02/15/21 at 14:15 Sodium Chloride 500 ml @ 500 mls/hr 1X PRN PRN IV SEE COMMENTS; Start 02/15/21 at 14:15 Atropine Sulfate (ATROPINE 0.5mg SYRINGE) 0.5 mg PRN Q5MIN PRN IV SEE COMMENTS; Start 02/15/21 at 14:15 Potassium Acetate 50 meq/Potassium Phosphate 13.6 mmol/Magnesium Sulfate 6 meq/ Calcium Gluconate 10 meq/ Multivitamins 5 ml/Zinc/Copper/ Manganese/ Selenium 1 ml/ Total Parenteral Nutrition/Amino Acids/Dextrose 1,512 ml @ 63 mls/hr TPN CONT IV Last administered on 02/16/21at 22:59; Start 02/16/21 at 22:00; Stop 02/17/21 at 21:59; Status DC Insulin Glargine (Lantus Syringe) 14 unit QHS SQ Last administered on 02/16/21at 21:14; Start 02/16/21 at 21:00; Stop 02/17/21 at 14:15; Status DC Potassium Acetate 50 meq/Potassium Phosphate 13.6 mmol/Magnesium Sulfate 6 meq/ Calcium Gluconate 10 meq/ Multivitamins 5 ml/Zinc/Copper/ Manganese/ Selenium 1 ml/ Total Parenteral Nutrition/Amino Acids/Dextrose 1,512 ml @ 63 mls/hr TPN CONT IV Last administered on 02/17/21at 20:48; Start 02/17/21 at 22:00; Stop 02/18/21 at 21:59; Status DC Dextrose 1,000 ml @ 75 mls/hr [id number] IV Last administered on 02/18/21at 13:51; Start 02/17/21 at 10:30; Stop 02/19/21 at 12:57; Status DC Insulin Glargine (Lantus Syringe) 18 unit QHS SQ Last administered on 02/17/21at 20:46; Start 02/17/21 at 21:00; Stop 02/18/21 at 11:56; Status DC Insulin Glargine (Lantus Syringe) 22 unit QHS SQ Last administered on 02/18/21at 21:00; Start 02/18/21 at 21:00 Potassium Acetate 50 meq/Potassium Phosphate 13.6 mmol/Magnesium Sulfate 6 meq/ Calcium Gluconate 10 meq/ Multivitamins 5 ml/Zinc/Copper/ Manganese/ Selenium 1 ml/ Total Parenteral Nutrition/Amino Acids/Dextrose 1,512 ml @ 63 mls/hr TPN CONT IV Last administered on 02/18/21at 21:43; Start 02/18/21 at 22:00; Stop at 21:59 Potassium Acetate 50 meq/Potassium Phosphate 13.6 mmol/Magnesium Sulfate 6 meq/ Calcium Gluconate 10 meq/ Multivitamins 5 ml/Zinc/Copper/ Manganese/ Selenium 1 ml/ Total Parenteral Nutrition/Amino Acids/Dextrose 2,040 ml @ 85 mls/hr TPN CONT IV ; Start 02/19/21 at 22:00; Stop 02/20/21 at 21:59 Vitals/I & O Vital Sign - Last 24 Hours 02/18/21 02/18/21 02/18/21 02/18/21 13:57 14:00 15:00 15:06 Pulse 56 59 85 Resp 20 22 B/P (MAP) 164/90 (114) 136/84 (101) 164/93 Pulse Ox 98 99 100 O2 Delivery Ventilator Ventilator Ventilator 02/18/21 02/18/21 02/18/21 02/18/21 15:44 16:00 16:00 17:00 Temp 98.5 98.5 Pulse 80 64 Resp 18 20 B/P (MAP) 133/86 (102) 134/93 (107) Pulse Ox 99 100 99 O2 Delivery Ventilator Mechanical Ventilator Ventilator Ventilator 02/18/21 02/18/21 02/18/21 02/18/21 17:43 18:00 19:00 20:00 Temp 98.1 98.1 Pulse 61 62 58 Resp 19 16 17 B/P (MAP) 144/92 (109) 135/92 (106) 132/85 (101) Pulse Ox 99 99 100 100 O2 Delivery Ventilator Ventilator Ventilator Ventilator 02/18/21 02/18/21 02/18/21 02/18/21 20:00 20:10 21:00 22:00 Pulse 58 61 Resp 16 18 B/P (MAP) 117/88 (98) 145/86 (105) Pulse Ox 100 100 99 O2 Delivery Mechanical Ventilator Ventilator Ventilator Ventilator 02/18/21 02/18/21 02/18/21 02/18/21 23:00 23:50 23:56 23:59 Pulse 58 Resp 18 B/P (MAP) 124/80 (95) Pulse Ox 100 99 100 O2 Delivery Ventilator Ventilator Mechanical Ventilator 02/19/21 02/19/21 02/19/21 02/19/21 00:43 01:00 02:00 02:12 Temp 98.4 98.4 Pulse 62 65 Resp 18 17 B/P (MAP) 144/85 (104) 130/81 (97) Pulse Ox 100 100 100 99 O2 Delivery Ventilator Ventilator Ventilator 02/19/21 02/19/21 02/19/21 02/19/21 03:00 04:00 04:00 05:00 Temp 98.9 98.9 Pulse 67 61 53 Resp 17 17 18 B/P (MAP) 131/69 (89) 136/81 (99) 134/62 (86) Pulse Ox 98 98 99 O2 Delivery Ventilator Ventilator Mechanical Ventilator Ventilator 02/19/21 02/19/21 02/19/21 02/19/21 05:15 06:00 07:00 07:55 Temp 98.7 98.7 Pulse 60 61 Resp 17 16 B/P (MAP) 159/69 (99) 136/80 (98) Pulse Ox 99 100 99 99 O2 Delivery Ventilator Ventilator Ventilator Ventilator 02/19/21 02/19/21 02/19/21 02/19/21 07:58 07:59 09:17 09:32 Pulse 60 61 Resp 18 20 B/P (MAP) 131/79 (96) 133/84 (100) Pulse Ox 99 99 99 O2 Delivery Ventilator Mechanical Ventilator Ventilator Ventilator 02/19/21 02/19/21 02/19/21 02/19/21 10:14 11:15 11:24 12:00 Temp 99.5 99.5 Pulse 61 60 63 Resp 20 16 18 B/P (MAP) 135/82 (99) 140/82 (101) 140/85 (103) Pulse Ox 99 99 99 99 O2 Delivery Ventilator Ventilator Ventilator Ventilator 02/19/21 02/19/21 12:37 13:02 Pulse 62 Resp 18 B/P (MAP) 146/89 (108) Pulse Ox 98 O2 Delivery Mechanical Ventilator Ventilator Intake and Output 02/18/21 02/18/21 02/19/21 15:00 23:00 07:00 Intake Total 10200.4 ml 1283 ml Output Total 925 ml 1275 ml 725 ml Balance -925 ml 23258.4 ml 558 ml Justifications for Admission Other Justification HILDA [employer] Feb 19, 2021 13:05
--- NOTE | 2021-02-19 13:47 | PDOC ---
DATE OF SERVICE DATE: 02/19/21 TIME: 13:44 SUBJECTIVE ROS Remains Intubated, sedated OBJECTIVE Vital Signs Vital Signs Date Time Temp Pulse Resp B/P (MAP) Pulse Ox O2 Delivery O2 Flow Rate FiO2 02/19/21 13:33 99 Ventilator 02/19/21 13:02 62 18 146/89 (108) 02/19/21 11:15 99.5 99.5 I & 0 Intake and Output 02/19/21 07:00 Intake Total 07153.4 ml Output Total 2925 ml Balance 93702.4 ml Int[place] Total 31274.4 ml Output Urine Total 2925 ml PHYSICAL EXAM Physical Exam General Intubated/MV HEEN Intubated Neck Supple Lungs CTA ant CV S1 S2 Abd Soft, NT Ext No LE edema, No cyanosis Moore in place Skin No rash Neuro - exam per neurologist DIAGNOSIS/ASSESSMENT Assessment & Plan MARVIN -ATN Resolved ,Supportive care, Maintain Hydration, Electrolytes stable, Large right temporo-occipital intraparenchymal bleed, most likely lobar hemorrhage s/p craniotomy 02/09 evening HypoKalemia Corrected HypetNatremia- improving, mildly elevated after correcting for Glucose. On TPN Hypertensive emergency POA - Cardene gtt as indicated Acute hypoxic respiratory failure secondary to intracranial hemorrhage and hype rtensive emergency. Hypoxia secondary to basilar atelectasis contributed by encephalopathy Long history of tobaccoism. CT angiogram showed bullous emphysema in the upper lobes. Nutrition - TPN COMMENT/RELEVANT DATA Meds Current Medications Medications (Trade) Dose Ordered Sig/Lorraine Start Time Stop Time Status Last Admin Dose Admin Acetaminophen (Tylenol Supp) 650 mg PRN Q6HRS PRN 02/11/21 21:15 Albuterol Sulfate (Ventolin Neb Soln) 2.5 mg PRN Q4HRS PRN 02/09/21 15:15 Atropine Sulfate (ATROPINE 0.5mg SYRINGE) 0.5 mg PRN Q5MIN PRN 02/15/21 14:15 Bupivacaine HCl/ Epinephrine Bitart (Sensorcain-Epi 0.5%-1:[id number] Mpf) 30 ml STK-MED ONCE 02/09/21 16:33 02/09/21 16:33 DC 02/09/21 17:49 5 ML Cefazolin Sodium (Ancef) 1 gm STK-MED ONCE 02/09/21 17:28 02/09/21 17:28 DC Cellulose (Surgicel Hemostat 4x8) 1 each STK-MED ONCE 02/09/21 16:33 02/09/21 16:33 DC 02/09/21 18:38 1 EACH Clonidine HCl (Catapres Tts-3) 1 patch WEEKLY 02/13/21 11:00 02/13/21 11:47 1 PATCH Dexmedetomidine HCl 400 mcg/ Sodium Chloride 100 ml @ 0 mls/hr CONT PRN 02/15/21 14:15 02/19/21 12:43 23.4 MLS/HR Dextrose 1,000 ml @ 75 mls/hr [id number] 02/17/21 10:30 02/19/21 12:57 DC 02/18/21 13:51 75 MLS/HR Dextrose (Dextrose 50%-Water Syringe) 12.5 gm PRN Q15MIN PRN 02/12/21 12:15 Fentanyl Citrate 55 ml @ 0 mls/hr CONT PRN 02/10/21 05:00 02/18/21 23:56 1 MLS/HR Fentanyl Citrate (Fentanyl 2ml Vial) 100 mcg STK-MED ONCE 02/09/21 17:43 02/09/21 17:43 DC Furosemide (Lasix) 40 mg 1X ONCE 02/12/21 12:30 02/12/21 12:31 DC 02/12/21 12:44 40 MG Gelatin (Gelfoam Size 100) 1 each STK-MED ONCE 02/09/21 16:33 02/09/21 16:33 DC 02/09/21 17:49 1 EACH Hydralazine HCl (Apresoline Inj) 10 mg PRN Q4HRS PRN 02/14/21 16:00 02/18/21 12:03 10 MG Info (CONTRAST GIVEN -- Rx MONITORING) 1 each PRN DAILY PRN 02/09/21 15:45 02/11/21 15:44 DC Info (Review Meds) 1 ea PRN 1X PRN 02/09/21 15:00 Info (Tpn Per Pharmacy) 1 each PRN DAILY PRN 02/11/21 11:15 02/19/21 12:06 1 EACH Insulin Glargine (Lantus Syringe) 22 unit QHS 02/18/21 21:00 02/18/21 21:00 22 UNIT Insulin Human Lispro (HumaLOG) 0-5 UNITS Q6HRS 02/12/21 12:00 02/19/21 12:56 3 UNITS Iohexol (Omnipaque 350 Mg/ml) 100 ml STK-MED ONCE 02/09/21 15:26 02/09/21 15:27 DC Labetalol HCl (Normodyne Iv Push) 10 mg PRN Q2HR PRN 02/09/21 06:15 02/18/21 15:06 10 MG Lidocaine HCl (Buffered Lidocaine 1%) 6 ml 1X ONCE 02/10/21 13:45 02/10/21 13:46 DC 02/10/21 13:57 3 ML Lidocaine HCl (Lidocaine HCl 2% Abboject) 100 mg 1X ONCE 02/09/21 17:15 02/09/21 17:16 DC Lorazepam (Ativan Inj) 2 mg 1X ONCE 02/09/21 11:00 02/09/21 11:01 DC 02/09/21 11:00 2 MG Midazolam HCl 100 ml @ 1 mls/hr CONT PRN 02/11/21 19:30 02/13/21 20:58 5 MLS/HR Nicardipine HCl 50 mg/Sodium Chloride 250 ml @ 12.5 mls/hr CONT PRN 02/09/21 06:15 02/16/21 14:00 50 MLS/HR Pantoprazole Sodium (PROTONIX VIAL for IV PUSH) 40 mg DAILYAC 02/10/21 09:00 02/19/21 09:22 40 MG Piperacillin Sod/ Tazobactam Sod 3.375 gm/Sodium Chloride 50 ml @ 100 mls/hr Q6HRS 02/11/21 09:00 02/19/21 12:48 100 MLS/HR Potassium Chloride/Dextrose/ Sod Cl 1,000 ml @ 80 mls/hr [id number] 02/10/21 09:00 02/10/21 13:21 DC Potassium Chloride/Water 100 ml @ 100 mls/hr Q1H 02/11/21 08:00 02/11/21 09:59 DC 02/11/21 10:07 100 MLS/HR Potassium Acetate 50 meq/Potassium Phosphate 13.6 mmol/Magnesium Sulfate 6 meq/ Calcium Gluconate 10 meq/ Multivitamins 5 ml/Zinc/Copper/ Manganese/ Selenium 1 ml/ Total Parenteral Nutrition/Amino Acids/Dextrose 2,040 ml @ 85 mls/hr TPN CONT 02/19/21 22:00 02/20/21 21:59 Propofol 100 ml @ 0 mls/hr CONT PRN PRN 02/09/21 17:15 02/10/21 05:14 DC Propofol (Diprivan) 200 mg 1X ONCE 02/09/21 17:15 02/09/21 17:16 DC Rocuronium [place] (Zemuron) 100 mg STK-MED ONCE 02/09/21 17:58 02/09/21 17:59 DC Sevoflurane (Ultane) 90 ml STK-MED ONCE 02/09/21 19:20 02/09/21 19:21 DC Sodium Chloride 500 ml @ 500 mls/hr 1X PRN PRN 02/15/21 14:15 Sodium Chloride (SODIUM CHLORIDE 20ml) 20 ml STK-MED ONCE 02/09/21 18:50 02/09/21 18:50 DC Sodium Chloride 80 meq/Potassium Chloride 50 meq/ Potassium Phosphate 13.6 mmol/Magnesium Sulfate 6 meq/ Calcium Gluconate 10 meq/ Multivitamins 5 ml/Zinc/Copper/ Manganese/ Selenium 1 ml/ Total Parenteral Nutrition/Amino Acids/Dextrose 1,512 ml @ 63 mls/hr TPN CONT 02/13/21 22:00 02/14/21 21:59 DC 02/13/21 21:42 63 MLS/HR Sodium Chloride 90 meq/Potassium Chloride 50 meq/ Potassium Phosphate 13.6 mmol/Magnesium Sulfate 10 meq/ Calcium Gluconate 10 meq/ Multivitamins 5 ml/Zinc/Copper/ Manganese/ Selenium 1 ml/ Total Parenteral Nutrition/Amino Acids/Dextrose 1,512 ml @ 63 mls/hr TPN CONT 02/11/21 22:00 02/12/21 21:59 DC 02/11/21 22:32 63 MLS/HR Thrombin 20,000 unit STK-MED ONCE 02/09/21 16:33 02/09/21 16:33 DC 02/09/21 17:49 20,000 UNIT Vecuronium [place] (Norcuron Bolus) 10 mg STK-MED ONCE 02/09/21 18:49 02/09/21 18:50 DC Lab Laboratory Tests Test 02/18/21 17:11 02/18/21 21:36 02/19/21 00:00 02/19/21 00:01 Glucose (Fingerstick) 283 mg/dL (70-99) 243 mg/dL (70-99) 247 mg/dL (70-99) Troponin I Quantitative 0.364 ng/mL (0.000-0.055) Test 02/19/21 05:30 02/19/21 05:55 02/19/21 12:50 02/19/21 12:55 Sodium Level 144 mmol/L (136-145) Potassium Level 4.3 mmol/L (3.5-5.1) Chloride Level 107 mmol/L (98-107) Carbon Dioxide Level 26 mmol/L (21-32) Anion Gap 11 (6-14) Blood Urea Nitrogen 24 mg/dL (8-26) Creatinine 1.1 mg/dL (0.7-1.3) Estimated GFR (Cockcroft-Gault) 82.6 BUN/Creatinine Ratio 22 (6-20) Glucose Level 232 mg/dL (70-99) Calcium Level 8.6 mg/dL (8.5-10.1) Phosphorus Level 4.5 mg/dL (2.6-4.7) Magnesium Level 1.9 mg/dL (1.8-2.4) Total Bilirubin 0.5 mg/dL (0.2-1.0) Aspartate Amino Transf (AST/SGOT) 74 U/L (15-37) Alanine Aminotransferase (ALT/SGPT) 157 U/L (16-63) Alkaline Phosphatase 115 U/L (46-116) Troponin I Quantitative 0.465 ng/mL (0.000-0.055) 0.557 ng/mL (0.000-0.055) Total Protein 5.9 g/dL (6.4-8.2) Albumin 2.3 g/dL (3.4-5.0) Albumin/Globulin Ratio 0.6 (1.0-1.7) Glucose (Fingerstick) 218 mg/dL (70-99) 222 mg/dL (70-99) Results All relevant outside records, renal labs, imaging studies, telemetry/EKG's were reviewed. Justicifation of Admission Dx: Justifications for Admission: Justification of Admission Dx: Yes Acute Hemorrhagic Stroke: Acute Hemorrhagic Stroke YULIA CAMACHO MD Feb 19, 2021 13:47
--- NOTE | 2021-02-19 15:37 | PDOC2 ---
CONSULT Date of Consult Date of Consult DATE: 02/19/21 TIME: 15:31 Reason for Consult Reason for Consult: Mildly elevated troponin level. Referring Physician Referring Physician: Dr. Badillo. Identification/Chief Complaint Chief Complaint Decreased mental status Source Source: Chart review History of Present Illness Reason for Visit: The patient was initially admitted on 02/09/21 and was found to have hypertensive emergency and intracranial hemorrhage. He underwent surgery the same day with a right occipital craniotomy with evacuation of intracerebral hematoma. He has remained intubated since that time. Various problems include resolved MARVIN, accelerated hypertension and the finding of underlying emphysema. The patient has been treated with antibiotics by the ID service for probable aspiration and is also followed by the pulmonary and renal services. He had a mildly elevated troponin of 1.135 on 02/18 we have been asked to see him regarding this. Patient remains on a ventilator. Rhythm remains a sinus rhythm. Blood pressure is stable. His heart rate is in the 50 to 60 bpm range at this time. There is no documentation of previous problems with heart failure, coronary artery disease or cardiac arrhythmias. Past Medical History Pulmonary: Asthma, COPD Hepatobiliary: Hep A/B/C Past Surgical History Past Surgical History: No pertinent history Family History Family History: Hypertension Social History <1 pack per day Current Medications Current Medications Current Medications Nicardipine HCl 50 mg/Sodium Chloride 250 ml @ 12.5 mls/hr CONT PRN IV SEE I/O RECORD Last administered on 02/16/21at 14:00; Start 02/09/21 at 06:15 Labetalol HCl (Normodyne Iv Push) 10 mg PRN Q2HR PRN IVP HYPERTENSION Last administered on 02/18/21at 15:06; Start 02/09/21 at 06:15 Lorazepam (Ativan Inj) 2 mg 1X ONCE IVP Last administered on 02/09/21at 10:54; Start 02/09/21 at 10:45; Stop 02/09/21 at 10:46; Status DC Lorazepam (Ativan Inj) 2 mg 1X ONCE IVP Last administered on 02/09/21at 11:00; Start 02/09/21 at 11:00; Stop 02/09/21 at 11:01; Status DC Fentanyl Citrate (Fentanyl 2ml Vial) 25 mcg PRN Q2HR PRN IVP MODERATE TO SEVERE PAIN Last administered on 02/09/21at 13:37; Start 02/09/21 at 13:30; Stop 02/18/21 at 22:53; Status DC Info (Review Meds) 1 ea PRN 1X PRN MC SEE COMMENTS; Start 02/09/21 at 15:00 Acetaminophen (Tylenol Supp) [address] Q6HRS PR[address] CT FEVER > 100.5'F or 38'C; Start 02/09/21 at 15:00; Stop 02/11/21 at 21:12; Status DC Albuterol Sulfate (Ventolin Neb Soln) 2.5 mg PRN Q4HRS PRN NEB SHORTNESS OF BREATH; Start 02/09/21 at 15:15 Iohexol (Omnipaque 350 Mg/ml) 75 ml 1X ONCE IV Last administered on 02/09/21at 15:52; Start 02/09/21 at 15:30; Stop 02/09/21 at 15:35; Status DC Iohexol (Omnipaque 350 Mg/ml) 100 ml STK-MED ONCE .ROUTE ; Start 02/09/21 at 15:2 6; Stop 02/09/21 at 15:27; Status DC Info (CONTRAST GIVEN -- Rx MONITORING) 1 each PRN DAILY PRN MC SEE COMMENTS; Start 02/09/21 at 15:45; Stop 02/11/21 at 15:44; Status DC Propofol 100 ml @ As Directed STK-MED ONCE IV ; Start 02/09/21 at 15:51; Stop 02/09/21 at 15:51; Status DC Rocuronium [place] (Zemuron) 50 mg STK-MED ONCE .ROUTE ; Start 02/09/21 at 15:51; Stop 02/09/21 at 15:51; Status DC Lidocaine HCl (Lidocaine HCl 2% Abboject) 100 mg STK-MED ONCE .ROUTE ; Start 02/09/21 at 15:52; Stop 02/09/21 at 15:53; Status DC Propofol 100 ml @ 3.507 mls/ hr CONT PRN IV PER PROTOCOL Last administered on 02/19/21at 13:22; Start 02/09/21 at 16:15 Lidocaine HCl (Lidocaine HCl 2% Abboject) 100 mg 1X ONCE IV Last administered on 02/09/21at 16:17; Start 02/09/21 at 16:15; Stop 02/09/21 at 16:17; Status DC Rocuronium [place] (Zemuron) 50 mg 1X ONCE IV Last administered on 02/09/21 16:17; Start 02/09/21 at 16:15; Stop 02/09/21 at 16:17; Status DC Rocuronium [place] (Zemuron) 100 mg STK-MED ONCE .ROUTE ; Start 02/09/21 at 16:3 1; Stop 02/09/21 at 16:32; Status DC Gelatin (Gelfoam Size 100) 1 each STK-MED ONCE .ROUTE Last administered on 02/09/21 17:49; Start 02/09/21 at 16:33; Stop 02/09/21 at 16:33; Status DC Bupivacaine HCl/ Epinephrine Bitart (Sensorcain-Epi 0.5%-1:[id number] Mpf) 30 ml STK-MED ONCE .ROUTE Last administered on 02/09/21 17:49; Start 02/09/21 at 16:33; Stop 02/09/21 at 16:33; Status DC Cellulose (Surgicel Hemostat 4x8) 1 each STK-MED ONCE .ROUTE Last administered on 02/09/21 18:38; Start 02/09/21 at 16:33; Stop 02/09/21 at 16:33; Status DC Thrombin 20,000 unit STK-MED ONCE TP Last administered on 02/09/21 17:49; Start 02/09/21 at 16:33; Stop 02/09/21 at 16:33; Status DC Fentanyl Citrate (Fentanyl 2ml Vial) 75 mcg 1X ONCE IVP Last administered on 02/09/21at 16:45; Start 02/09/21 at 16:45; Stop 02/09/21 at 16:47; Status DC Propofol (Diprivan) 200 mg 1X ONCE IV ; Start 02/09/21 at 17:15; Stop 02/09/21 at 17:16; Status DC Lidocaine HCl (Lidocaine HCl 2% Abboject) 100 mg 1X ONCE IV ; Start 02/09/21 at 17:15; Stop 02/09/21 at 17:16; Status DC Rocuronium [place] (Zemuron) 50 mg 1X ONCE IV ; Start 02/09/21 at 17:15; Stop 02/09/21 at 17:16; Status DC Propofol 100 ml @ 0 mls/hr CONT PRN PRN IV SEDATION; Start 02/09/21 at 17:15; Stop 02/10/21 at 05:14; Status DC Cefazolin Sodium (Ancef) 1 gm STK-MED ONCE IVP ; Start 02/09/21 at 17:28; Stop 02/09/21 at 17:28; Status DC Fentanyl Citrate (Fentanyl 2ml Vial) 100 mcg STK-MED ONCE .ROUTE ; Start 02/09/21 at 17:43; Stop 02/09/21 at 17:43; Status DC Rocuronium [place] (Zemuron) 100 mg STK-MED ONCE .ROUTE ; Start 02/09/21 at 17:58; Stop 02/09/21 at 17:59; Status DC Vecuronium [place] (Norcuron Bolus) 10 mg STK-MED ONCE IV ; Start 02/09/21 at 18:49; Stop 02/09/21 at 18:50; Status DC Sodium Chloride (SODIUM CHLORIDE 20ml) 20 ml STK-MED ONCE IJ ; Start 02/09/21 at 18:50; Stop 02/09/21 at 18:50; Status DC Sevoflurane (Ultane) 90 ml STK-MED ONCE IH ; Start 02/09/21 at 19:20; Stop 02/09/21 at 19:21; Status DC Fentanyl Citrate 30 ml @ 2.5 mls/hr CONT PRN IV SEE PROTOCOL Last administered on 02/09/21at 23:40; Start 02/09/21 at 23:15; Stop 02/10/21 at 04:43; Status DC Fentanyl Citrate 55 ml @ 0 mls/hr CONT PRN IV SEE I/O Last administered on 02/18/21at 23:56; Start 02/10/21 at 05:00 Potassium Chloride/Dextrose/ Sod Cl 1,000 ml @ 80 mls/hr [id number] IV ; Start 02/10/21 at 09:00; Stop 02/10/21 at 13:21; Status DC Pantoprazole Sodium (PROTONIX VIAL for IV PUSH) 40 mg DAILYAC IVP Last admi nistered on 02/19/21at 09:22; Start 02/10/21 at 09:00 Lidocaine HCl (Buffered Lidocaine 1%) 3 ml STK-MED ONCE .ROUTE ; Start 02/10/21 at 13:18; Stop 02/10/21 at 13:18; Status DC Sodium Chloride 1,000 ml @ 80 mls/hr [id number] IV Last administered on 02/12/21at 03:00; Start 02/10/21 at 13:30; Stop 02/12/21 at 15:36; Status DC Lidocaine HCl (Buffered Lidocaine 1%) 6 ml 1X ONCE INJ Last administered on 02/10/21at 13:57; Start 02/10/21 at 13:45; Stop 02/10/21 at 13:46; Status DC Potassium Chloride/Water 100 ml @ 100 mls/hr Q1H IV Last administered on 02/11/21at 10:07; Start 02/11/21 at 08:00; Stop 02/11/21 at 09:59; Status DC Piperacillin Sod/ Tazobactam Sod 3.375 gm/Sodium Chloride 50 ml @ 100 mls/hr Q6HRS IV Last administered on 02/19/21at 12:48; Start 02/11/21 at 09:00 Info (Tpn Per Pharmacy) 1 each PRN DAILY PRN MC SEE COMMENTS Last administered on 02/19/21at 12:06; Start 02/11/21 at 11:15 Sodium Chloride 90 meq/Potassium Chloride 50 meq/ Potassium Phosphate 13.6 mmol/Magnesium Sulfate 10 meq/ Calcium Gluconate 10 meq/ Multivitamins 5 ml/Zinc/Copper/ Manganese/ Selenium 1 ml/ Total Parenteral Nutrition/Amino Acids/Dextrose 1,512 ml @ 63 mls/hr TPN CONT IV Last administered on 02/11/21at 22:32; Start 02/11/21 at 22:00; Stop 02/12/21 at 21:59; Status DC Furosemide (Lasix) 20 mg 1X ONCE IVP Last administered on 02/11/21at 15:11; Start 02/11/21 at 15:30; Stop 02/11/21 at 15:31; Status DC Furosemide (Lasix) 20 mg 1X ONCE IVP Last administered on 02/11/21at 17:00; Start 02/11/21 at 17:00; Stop 02/11/21 at 17:01; Status DC Midazolam HCl 100 ml @ 1 mls/hr CONT PRN IV SEE PROTOCOL Last administered on 02/13/21at 20:58; Start 02/11/21 at 19:30 Acetaminophen (Tylenol Supp) 650 [address]N Q6HRS PRN CT MILD PAIN / TEMP > 100.3'F; Start 02/11/21 at 21:15 Sodium Chloride 80 meq/Potassium Chloride 50 meq/ Potassium Phosphate 13.6 mmol/Magnesium Sulfate 6 meq/ Calcium Gluconate 10 meq/ Multivitamins 5 m l/Zinc/Copper/ Manganese/ Selenium 1 ml/ Total Parenteral Nutrition/Amino Acids/Dextrose 1,512 ml @ 63 mls/hr TPN CONT IV Last administered on 02/12/21at 22:09; Start 02/12/21 at 22:00; Stop 02/13/21 at 21:59; Status DC Furosemide (Lasix) 40 mg 1X ONCE IVP Last administered on 02/12/21at 12:44; Start 02/12/21 at 12:30; Stop 02/12/21 at 12:31; Status DC Insulin Human Lispro (HumaLOG) 0-5 UNITS Q6HRS SQ Last administered on 02/19/21at 12:56; Start 02/12/21 at 12:00 Dextrose (Dextrose 50%-Water Syringe) 12.5 gm PRN Q15MIN PRN IV SEE COMMENTS; Start 02/12/21 at 12:15 Clonidine HCl (Catapres Tts-3) 1 patch WEEKLY TD Last administered on 02/13/21at 11:47; Start 02/13/21 at 11:00 Sodium Chloride 80 meq/Potassium Chloride 50 meq/ Potassium Phosphate 13.6 mmol/ Magnesium Sulfate 6 meq/ Calcium Gluconate 10 meq/ Multivitamins 5 ml/Zinc/Copper/ Manganese/ Selenium 1 ml/ Total Parenteral Nutrition/Amino Acids/Dextrose 1,512 ml @ 63 mls/hr TPN CONT IV Last administered on 02/13/21at 21:42; Start 02/13/21 at 22:00; Stop 02/14/21 at 21:59; Status DC Potassium Acetate 50 meq/Potassium Phosphate 13.6 mmol/Magnesium Sulfate 6 meq/ Calcium Gluconate 10 meq/ Multivitamins 5 ml/Zinc/Copper/ Manganese/ Selenium 1 ml/ Total Parenteral Nutrition/Amino Acids/Dextrose 1,512 ml @ 63 mls/hr TPN CONT IV Last administered on 02/14/21at 21:59; Start 02/14/21 at 22:00; Stop 02/15/21 at 21:59; Status DC Insulin Glargine (Lantus Syringe) 10 unit QHS SQ Last administered on 02/15/21at 22:11; Start 02/14/21 at 21:00; Stop 02/16/21 at 12:42; Status DC Hydralazine HCl (Apresoline Inj) 10 mg PRN Q4HRS PRN IVP ELEVATED BP, SEE COMMENTS Last administered on 02/18/21at 12:03; Start 02/14/21 at 16:00 Potassium Acetate 50 meq/Potassium Phosphate 13.6 mmol/Magnesium Sulfate 6 meq/ Calcium Gluconate 10 meq/ Multivitamins 5 ml/Zinc/Copper/ Manganese/ Selenium 1 ml/ Total Parenteral Nutrition/Amino Acids/Dextrose 1,512 ml @ 63 mls/hr TPN CONT IV Last administered on 02/15/21at 22:13; Start 02/15/21 at 22:00; Stop 02/16/21 at 21:59; Status DC Dexmedetomidine HCl 400 mcg/ Sodium Chloride 100 ml @ 0 mls/hr CONT PRN IV PER PROTOCOL Last administered on 02/19/21at 12:43; Start 02/15/21 at 14:15 Sodium Chloride 500 ml @ 500 mls/hr 1X PRN PRN IV SEE COMMENTS; Start 02/15/21 at 14:15 Atropine Sulfate (ATROPINE 0.5mg SYRINGE) 0.5 mg PRN Q5MIN PRN IV SEE COMMENTS; Start 02/15/21 at 14:15 Potassium Acetate 50 meq/Potassium Phosphate 13.6 mmol/Magnesium Sulfate 6 meq/ Calcium Gluconate 10 meq/ Multivitamins 5 ml/Zinc/Copper/ Manganese/ Selenium 1 ml/ Total Parenteral Nutrition/Amino Acids/Dextrose 1,512 ml @ 63 mls/hr TPN CONT IV Last administered on 02/16/21at 22:59; Start 02/16/21 at 22:00; Stop 02/17/21 at 21:59; Status DC Insulin Glargine (Lantus Syringe) 14 unit QHS SQ Last administered on 02/16/21at 21:14; Start 02/16/21 at 21:00; Stop 02/17/21 at 14:15; Status DC Potassium Acetate 50 meq/Potassium Phosphate 13.6 mmol/Magnesium Sulfate 6 meq/ Calcium Gluconate 10 meq/ Multivitamins 5 ml/Zinc/Copper/ Manganese/ Selenium 1 ml/ Total Parenteral Nutrition/Amino Acids/Dextrose 1,512 ml @ 63 mls/hr TPN CONT IV Last administered on 02/17/21at 20:48; Start 02/17/21 at 22:00; Stop 02/18/21 at 21:59; Status DC Dextrose 1,000 ml @ 75 mls/hr [id number] IV Last administered on 02/18/21at 13:51; Start 02/17/21 at 10:30; Stop 02/19/21 at 12:57; Status DC Insulin Glargine (Lantus Syringe) 18 unit QHS SQ Last administered on 02/17/21at 20:46; Start 02/17/21 at 21:00; Stop 02/18/21 at 11:56; Status DC Insulin Glargine (Lantus Syringe) 22 unit QHS SQ Last administered on 02/18/21at 21:00; Start 02/18/21 at 21:00; Stop 02/19/21 at 14:08; Status DC Potassium Acetate 50 meq/Potassium Phosphate 13.6 mmol/Magnesium Sulfate 6 meq/ Calcium Gluconate 10 meq/ Multivitamins 5 ml/Zinc/Copper/ Manganese/ Selenium 1 ml/ Total Parenteral Nutrition/Amino Acids/Dextrose 1,512 ml @ 63 mls/hr TPN CONT IV Last administered on 02/18/21at 21:43; Start 02/18/21 at 22:00; Stop 02/19/21 at 21:59 Potassium Acetate 50 meq/Potassium Phosphate 13.6 mmol/Magnesium Sulfate 6 meq/ Calcium Gluconate 10 meq/ Multivitamins 5 ml/Zinc/Copper/ Manganese/ Selenium 1 ml/ Total Parenteral Nutrition/Amino Acids/Dextrose 2,040 ml @ 85 mls/hr TPN CONT IV ; Start 02/19/21 at 22:00; Stop 02/20/21 at 21:59 Insulin Glargine (Lantus Syringe) 25 unit QHS SQ ; Start 02/19/21 at 21:00 Allergies Allergies: Coded Allergies: No Known Drug Allergies (Unverified , 02/09/21) ROS Review of System The patient remains intubated on a ventilator. Physical Exam General: Other (Intubated on a ventilator) Lungs: Other (Mildly decreased breath sounds) Heart: Regular rate Abdomen: Normal bowel sounds Vitals VITALS Vital Signs Date Time Temp Pulse Resp B/P (MAP) Pulse Ox O2 Delivery O2 Flow Rate FiO2 02/19/21 15:02 99.8 63 18 138/84 (102) 98 Ventilator 99.8 Labs Labs Laboratory Tests Test 02/17/21 17:45 02/17/21 20:45 02/18/21 00:26 02/18/21 05:15 Glucose (Fingerstick) 293 mg/dL (70-99) 310 mg/dL (70-99) 279 mg/dL (70-99) White Blood Count 6.7 x10^3/uL (4.0-11.0) Red Blood Count 3.90 x10^6/uL (4.30-5.70) Hemoglobin 11.5 g/dL (13.0-17.5) Hematocrit 35.9 % (39.0-53.0) Mean Corpuscular Volume 92 fL (79-100) Mean Corpuscular Hemoglobin 30 pg (25-35) Mean Corpuscular Hemoglobin Concent 32 g/dL (31-37) Red Cell Distribution Width 14.1 % (11.5-14.5) Platelet Count 241 x10^3/uL (140-400) Neutrophils (%) (Auto) 67 % (31-73) Lymphocytes (%) (Auto) 21 % (24-48) Monocytes (%) (Auto) 10 % (0-9) Eosinophils (%) (Auto) 2 % (0-3) Basophils (%) (Auto) 0 % (0-3) Neutrophils # (Auto) 4.4 x10^3/uL (1.8-7.7) Lymphocytes # (Auto) 1.4 x10^3/uL (1.0-4.8) Monocytes # (Auto) 0.6 x10^3/uL (0.0-1.1) Eosinophils # (Auto) 0.2 x10^3/uL (0.0-0.7) Basophils # (Auto) 0.0 x10^3/uL (0.0-0.2) Sodium Level 143 mmol/L (136-145) Potassium Level 4.4 mmol/L (3.5-5.1) Chloride Level 109 mmol/L (98-107) Carbon Dioxide Level 26 mmol/L (21-32) Anion Gap 8 (6-14) Blood Urea Nitrogen 26 mg/dL (8-26) Creatinine 0.9 mg/dL (0.7-1.3) Estimated GFR (Cockcroft-Gault) 104.2 Glucose Level 335 mg/dL (70-99) Calcium Level 9.3 mg/dL (8.5-10.1) Phosphorus Level 4.5 mg/dL (2.6-4.7) Magnesium Level 2.1 mg/dL (1.8-2.4) Test 02/18/21 06:02 02/18/21 11:17 02/18/21 12:30 02/18/21 17:11 Glucose (Fingerstick) 323 mg/dL (70-99) 282 mg/dL (70-99) 283 mg/dL (70-99) Troponin I Quantitative 1.135 ng/mL (0.000-0.055) Urine Opiates Screen Neg (NEG) Urine Methadone Screen Neg (NEG) Urine Barbiturates Neg (NEG) Urine Phencyclidine Screen Neg (NEG) Urine Amphetamine/Methamphetamine Neg (NEG) Urine Benzodiazepines Screen Pos (NEG) Urine Cocaine Screen Neg (NEG) Urine Cannabinoids Screen Neg (NEG) Urine Ethyl Alcohol Neg (NEG) Test 02/18/21 21:36 02/19/21 00:00 02/19/21 00:01 02/19/21 05:30 Glucose (Fingerstick) 243 mg/dL (70-99) 247 mg/dL (70-99) Troponin I Quantitative 0.364 ng/mL (0.000-0.055) 0.465 ng/mL (0.000-0.055) Sodium Level 144 mmol/L (136-145) Potassium Level 4.3 mmol/L (3.5-5.1) Chloride Level 107 mmol/L (98-107) Carbon Dioxide Level 26 mmol/L (21-32) Anion Gap 11 (6-14) Blood Urea Nitrogen 24 mg/dL (8-26) Creatinine 1.1 mg/dL (0.7-1.3) Estimated GFR (Cockcroft-Gault) 82.6 BUN/Creatinine Ratio 22 (6-20) Glucose Level 232 mg/dL (70-99) Calcium Level 8.6 mg/dL (8.5-10.1) Phosphorus Level 4.5 mg/dL (2.6-4.7) Magnesium Level 1.9 mg/dL (1.8-2.4) Total Bilirubin 0.5 mg/dL (0.2-1.0) Aspartate Amino Transf (AST/SGOT) 74 U/L (15-37) Alanine Aminotransferase (ALT/SGPT) 157 U/L (16-63) Alkaline Phosphatase 115 U/L (46-116) Total Protein 5.9 g/dL (6.4-8.2) Albumin 2.3 g/dL (3.4-5.0) Albumin/Globulin Ratio 0.6 (1.0-1.7) Test 02/19/21 05:55 02/19/21 12:50 02/19/21 12:55 Glucose (Fingerstick) 218 mg/dL (70-99) 222 mg/dL (70-99) Troponin I Quantitative 0.557 ng/mL (0.000-0.055) Laboratory Tests Test 02/18/21 17:11 02/18/21 21:36 02/19/21 00:00 02/19/21 00:01 Glucose (Fingerstick) 283 mg/dL (70-99) 243 mg/dL (70-99) 247 mg/dL (70-99) Troponin I Quantitative 0.364 ng/mL (0.000-0.055) Test 02/19/21 05:30 02/19/21 05:55 02/19/21 12:50 02/19/21 12:55 Sodium Level 144 mmol/L (136-145) Potassium Level 4.3 mmol/L (3.5-5.1) Chloride Level 107 mmol/L (98-107) Carbon Dioxide Level 26 mmol/L (21-32) Anion Gap 11 (6-14) Blood Urea Nitrogen 24 mg/dL (8-26) Creatinine 1.1 mg/dL (0.7-1.3) Estimated GFR (Cockcroft-Gault) 82.6 BUN/Creatinine Ratio 22 (6-20) Glucose Level 232 mg/dL (70-99) Calcium Level 8.6 mg/dL (8.5-10.1) Phosphorus Level 4.5 mg/dL (2.6-4.7) Magnesium Level 1.9 mg/dL (1.8-2.4) Total Bilirubin 0.5 mg/dL (0.2-1.0) Aspartate Amino Transf (AST/SGOT) 74 U/L (15-37) Alanine Aminotransferase (ALT/SGPT) 157 U/L (16-63) Alkaline Phosphatase 115 U/L (46-116) Troponin I Quantitative 0.465 ng/mL (0.000-0.055) 0.557 ng/mL (0.000-0.055) Total Protein 5.9 g/dL (6.4-8.2) Albumin 2.3 g/dL (3.4-5.0) Albumin/Globulin Ratio 0.6 (1.0-1.7) Glucose (Fingerstick) 218 mg/dL (70-99) 222 mg/dL (70-99) Images Images Imaging as above. Assessment/Plan Assessment/Plan 1. Intracranial hemorrhage status post emergent right occipital craniotomy and evacuation of intracerebral hematoma on 02/09. Patient has remained on a ventilator. He is followed by the neurosurgery service. 2. Acute respiratory failure. As noted above the patient remains on a ventilator. Imaging has shown a history of emphysema. Continue present treatment as per the pulmonary service. 3. MARVIN. Resolving. Followed by renal. 4. Mildly elevated troponin at 1.135. As noted above the patient remains intubated. Rhythm is stable. Blood pressure is also stable. In this setting would continue present treatments and check an echocardiogram for LV function. 5. Hypertension. Under better control. We will adjust medications as needed. BOB WEST MD Feb 19, 2021 15:36
[2021-02-19] MEDS: ACETAMINOPHEN 650 MG/20.3 ML SOLUTION. PEG PRN (18:07)
--- NOTE | 2021-02-19 19:55 | PDOC ---
PULMONARY PROGRESS NOTES DATE: 02/19/21 TIME: 19:54 Subjective Remains on vent support 40% sedated low grade fevers no overnight events Vitals Vital Signs Date Time Temp Pulse Resp B/P (MAP) Pulse Ox O2 Delivery O2 Flow Rate FiO2 02/19/21 19:00 64 17 138/79 (98) 99 Ventilator 02/19/21 17:57 100.2 100.2 Comments ros unable to obtain sedated on vent Lungs: Clear, Crackles Cardiovascular: S1, S2 Abdomen: Soft, Non-tender Extremities: No Edema Skin: Warm Labs Laboratory Tests Test 02/17/21 20:45 02/18/21 00:26 02/18/21 05:15 02/18/21 06:02 Glucose (Fingerstick) 310 mg/dL (70-99) 279 mg/dL (70-99) 323 mg/dL (70-99) White Blood Count 6.7 x10^3/uL (4.0-11.0) Red Blood Count 3.90 x10^6/uL (4.30-5.70) Hemoglobin 11.5 g/dL (13.0-17.5) Hematocrit 35.9 % (39.0-53.0) Mean Corpuscular Volume 92 fL (79-100) Mean Corpuscular Hemoglobin 30 pg (25-35) Mean Corpuscular Hemoglobin Concent 32 g/dL (31-37) Red Cell Distribution Width 14.1 % (11.5-14.5) Platelet Count 241 x10^3/uL (140-400) Neutrophils (%) (Auto) 67 % (31-73) Lymphocytes (%) (Auto) 21 % (24-48) Monocytes (%) (Auto) 10 % (0-9) Eosinophils (%) (Auto) 2 % (0-3) Basophils (%) (Auto) 0 % (0-3) Neutrophils # (Auto) 4.4 x10^3/uL (1.8-7.7) Lymphocytes # (Auto) 1.4 x10^3/uL (1.0-4.8) Monocytes # (Auto) 0.6 x10^3/uL (0.0-1.1) Eosinophils # (Auto) 0.2 x10^3/uL (0.0-0.7) Basophils # (Auto) 0.0 x10^3/uL (0.0-0.2) Sodium Level 143 mmol/L (136-145) Potassium Level 4.4 mmol/L (3.5-5.1) Chloride Level 109 mmol/L (98-107) Carbon Dioxide Level 26 mmol/L (21-32) Anion Gap 8 (6-14) Blood Urea Nitrogen 26 mg/dL (8-26) Creatinine 0.9 mg/dL (0.7-1.3) Estimated GFR (Cockcroft-Gault) 104.2 Glucose Level 335 mg/dL (70-99) Calcium Level 9.3 mg/dL (8.5-10.1) Phosphorus Level 4.5 mg/dL (2.6-4.7) Magnesium Level 2.1 mg/dL (1.8-2.4) Test 02/18/21 11:17 02/18/21 12:30 02/18/21 17:11 02/18/21 21:36 Glucose (Fingerstick) 282 mg/dL (70-99) 283 mg/dL (70-99) 243 mg/dL (70-99) Troponin I Quantitative 1.135 ng/mL (0.000-0.055) Urine Opiates Screen Neg (NEG) Urine Methadone Screen Neg (NEG) Urine Barbiturates Neg (NEG) Urine Phencyclidine Screen Neg (NEG) Urine Amphetamine/Methamphetamine Neg (NEG) Urine Benzodiazepines Screen Pos (NEG) Urine Cocaine Screen Neg (NEG) Urine Cannabinoids Screen Neg (NEG) Urine Ethyl Alcohol Neg (NEG) Test 02/19/21 00:00 02/19/21 00:01 02/19/21 05:30 02/19/21 05:55 Glucose (Fingerstick) 247 mg/dL (70-99) 218 mg/dL (70-99) Troponin I Quantitative 0.364 ng/mL (0.000-0.055) 0.465 ng/mL (0.000-0.055) Sodium Level 144 mmol/L (136-145) Potassium Level 4.3 mmol/L (3.5-5.1) Chloride Level 107 mmol/L (98-107) Carbon Dioxide Level 26 mmol/L (21-32) Anion Gap 11 (6-14) Blood Urea Nitrogen 24 mg/dL (8-26) Creatinine 1.1 mg/dL (0.7-1.3) Estimated GFR (Cockcroft-Gault) 82.6 BUN/Creatinine Ratio 22 (6-20) Glucose Level 232 mg/dL (70-99) Calcium Level 8.6 mg/dL (8.5-10.1) Phosphorus Level 4.5 mg/dL (2.6-4.7) Magnesium Level 1.9 mg/dL (1.8-2.4) Total Bilirubin 0.5 mg/dL (0.2-1.0) Aspartate Amino Transf (AST/SGOT) 74 U/L (15-37) Alanine Aminotransferase (ALT/SGPT) 157 U/L (16-63) Alkaline Phosphatase 115 U/L (46-116) Total Protein 5.9 g/dL (6.4-8.2) Albumin 2.3 g/dL (3.4-5.0) Albumin/Globulin Ratio 0.6 (1.0-1.7) Test 02/19/21 12:50 02/19/21 12:55 02/19/21 17:41 Troponin I Quantitative 0.557 ng/mL (0.000-0.055) Glucose (Fingerstick) 222 mg/dL (70-99) 234 mg/dL (70-99) Laboratory Tests Test 02/18/21 21:36 02/19/21 00:00 02/19/21 00:01 02/19/21 05:30 Glucose (Fingerstick) 243 mg/dL (70-99) 247 mg/dL (70-99) Troponin I Quantitative 0.364 ng/mL (0.000-0.055) 0.465 ng/mL (0.000-0.055) Sodium Level 144 mmol/L (136-145) Potassium Level 4.3 mmol/L (3.5-5.1) Chloride Level 107 mmol/L (98-107) Carbon Dioxide Level 26 mmol/L (21-32) Anion Gap 11 (6-14) Blood Urea Nitrogen 24 mg/dL (8-26) Creatinine 1.1 mg/dL (0.7-1.3) Estimated GFR (Cockcroft-Gault) 82.6 BUN/Creatinine Ratio 22 (6-20) Glucose Level 232 mg/dL (70-99) Calcium Level 8.6 mg/dL (8.5-10.1) Phosphorus Level 4.5 mg/dL (2.6-4.7) Magnesium Level 1.9 mg/dL (1.8-2.4) Total Bilirubin 0.5 mg/dL (0.2-1.0) Aspartate Amino Transf (AST/SGOT) 74 U/L (15-37) Alanine Aminotransferase (ALT/SGPT) 157 U/L (16-63) Alkaline Phosphatase 115 U/L (46-116) Total Protein 5.9 g/dL (6.4-8.2) Albumin 2.3 g/dL (3.4-5.0) Albumin/Globulin Ratio 0.6 (1.0-1.7) Test 02/19/21 05:55 02/19/21 12:50 02/19/21 12:55 02/19/21 17:41 Glucose (Fingerstick) 218 mg/dL (70-99) 222 mg/dL (70-99) 234 mg/dL (70-99) Troponin I Quantitative 0.557 ng/mL (0.000-0.055) Comments CXR 02/18/21 IMPRESSION: Unchanged bibasilar opacities. Recommend follow-up to ensure resolution, particularly of focal opacities in the right lung base. CXR 02/17/21 IMPRESSION: 1. Stable life support devices. 2. Stable bibasilar opacities. 3. Stable small left pleural effusion. IMPRESSION: Chest x-ray 02/13 1. Stable support lines and tubes. 2. Severe right upper lobe predominant bullous emphysema. 3. Stable right perihilar linear atelectasis or infiltrate superimposed on diffuse interstitial prominence and small pleural effusions. Impression . IMPRESSION: 1. Acute hypoxic respiratory failure multifactorial 2. Abnormal x-ray 3. Long history of tobaccoism. CT angiogram showed bullous emphysema in the upper lobes. 3. Acute kidney injury. 4. Leukocytosi 5. s/p Right occipital craniotomy with evacuation of intracerebral hematoma. 6. Encephalopathy, multifactorial 7. Uncontrolled hypertension CT head 02/13, discussed with Dr. Louie IMPRESSION: 1. Expected interval evolution of a right posterior temporal/occipital intraparenchymal hematoma status post decompressive craniotomy. 2. Expected evolution of a small amount of subarachnoid and intraventricular clot. DATE OF SURGERY: 02/09/2021 PREOPERATIVE DIAGNOSIS: Right posterior temporoparietal occipital intracerebral hemorrhage with neurologic deterioration. POSTOPERATIVE DIAGNOSIS: Right posterior temporoparietal occipital intracerebral hemorrhage with neurologic deterioration. OPERATION PERFORMED: Right occipital craniotomy with evacuation of intracerebral hematoma. Plan . UPDATED 02/19/21 Continue current vent support A/C mode Follow surgery recs for trach-- plan for next week Follow ID recs for ABX on zosyn Follow Cardiology recs Follow neurosurgery recs-- POD#11 S/P Right occipital craniotomy with evacuation of intracerebral hematoma TPN for nutritional support Hyperglycemia per PCP Cardnicole gtt for HTN PRN DVT/GI PPX D/W RN and RT Social work for DC planning UPDATED 02/18/21 Continue current vent support A/C mode Follow CXR/ABG - reviewed Consult surgery for trach-- plan for next week Follow ID recs for ABX on zosyn Follow neurosurgery recs-- POD#10 S/P Right occipital craniotomy with evacuation of intracerebral hematoma TPN for nutritional support DVT/GI PPX D/W RN and RT Updated 02/17/21 Continue current vent support A/C mode 16/500/6/40% Follow CXR/ABG - reviewed Pt. does not tolerate reduced/off sedation, will need trach for further weaning Follow ID recs for ABX on zosyn Follow neurosurgery recs-- POD#9 S/P Right occipital craniotomy with evacuation of intracerebral hematoma TPN for nutritional support DVT/GI PPX D/W RN and RT Social work for DC planning Updated 02/16 Patient does not do well off sedation, becomes asynchronous with vent We will discuss with surgery, I recommend tracheotomy We will continue antibiotics per ID Follow neurology and neurosurgery input DVT GI prophylax Updated 02/15, blood pressure better control Antibiotics per ID When sedation is off, patient not in sync with the ventilator Suspect he may require tracheotomy Follow neurology and neurosurgery input Discussed with MANJULA FATIMA MD Feb 19, 2021 19:55
[2021-02-19] MEDS: INSULIN GLARGINE SYRINGE. SQ SCH (20:56)
[2021-02-19] MEDS ORDERED: AMINO ACID IV SCH (22:00)
[2021-02-19] MEDS ORDERED: DEXTROSE 70% IV SCH (22:00)
[2021-02-19] MEDS ORDERED: TOTAL PARENTERAL NUTRITION IV SCH (22:00)
[2021-02-19] MEDS ORDERED: [UNRECOGNIZED DRUG - OTHER] IV SCH (22:00)
[2021-02-20] VITALS (28 sets, daily range): BP systolic 120–179; BP diastolic 51–101
[2021-02-20] MEDS: PROPOFOL 100 ML IV PRN ×6 (00:11→20:43)
[2021-02-20] MEDS: ACETAMINOPHEN 650 MG/20.3 ML SOLUTION. PEG PRN (03:50)
[2021-02-20] MEDS: INSULIN LISPRO 300 UNITS/3 ML VIAL. SQ SCH ×3 (05:46→17:14)
[2021-02-20] MEDS: PIPERACILLIN/TAZOBACTAM 3.375 GM in IV NORMAL SALINE 50ML 50 ML IV SCH ×3 (05:46→17:15)
[2021-02-20 06:40] LABS: BASO % 0 % (0-3); EOS # 0.1 x10^3/uL (0.0-0.7); EOS % 1 % (0-3); HEMATOCRIT 33.9 % (39.0-53.0); HEMOGLOBIN 11.1 g/dL (13.0-17.5); LYMPH # 1.7 x10^3/uL (1.0-4.8); LYMPH % 17 % (24-48); MEAN CORPUSCULAR HEMOGLOBIN 30 pg (25-35); MEAN CORPUSCULAR HGB CONC 33 g/dL (31-37); MEAN CORPUSCULAR VOLUME 92 fL (79-100); MONO # 0.9 x10^3/uL (0.0-1.1); MONO % 9 % (0-9); NEUT # 7.5 x10^3/uL (1.8-7.7); NEUT % 73 % (31-73); PLATELET COUNT 225 x10^3/uL (140-400); RED BLOOD COUNT 3.69 x10^6/uL (4.30-5.70); RED CELL DISTRIBUTION WIDTH 13.7 % (11.5-14.5); WHITE BLOOD COUNT 10.3 x10^3/uL (4.0-11.0)
[2021-02-20 06:49] LABS: ALBUMIN 2.2 g/dL (3.4-5.0); ALBUMIN/GLOBULIN RATIO 0.5 (1.0-1.7); CALCIUM 8.9 mg/dL (8.5-10.1); CREATININE 1.2 mg/dL (0.7-1.3); GFR 74.7; MAGNESIUM 2.1 mg/dL (1.8-2.4); POTASSIUM 4.2 mmol/L (3.5-5.1); TOTAL BILIRUBIN 0.5 mg/dL (0.2-1.0); TOTAL PROTEIN 6.4 g/dL (6.4-8.2)
[2021-02-20] MEDS: PANTOPRAZOLE IV PUSH 40 MG VIAL. IVP SCH (07:47)
[2021-02-20] MEDS: cloNIDine TTS-3 1 PATCH PATCH.TDWK TD SCH (07:50)
--- NOTE | 2021-02-20 08:36 | PDOC ---
[facility] PROGRESS NOTE Date of Service DOS: DATE: 02/20/21 TIME: 08:26 Chief Complaint Chief Complaint IMPRESSION Dizziness Large right temporo-occipital intraparenchymal bleed, most likely lobar hemorrhage from hypertension, consider venous sinus thrombosis, , aneurysmal bleed, Had craniotomy 02/09 evening Suspect aspiration, respiratory failure, hypertension, chronic obstructive pulmonary disease, improving acute kidney injury MORBID OBESITY Severe malnutrition History of Present Illness History of Present Illness 02/20/2021: POD #11 Right occipital craniotomy with evacuation of intracerebral hematoma (02/09/21). Remains sedated on ventilator, FiO2 40%, PEEP 5. Chest x- ray from 02/18 showed unchanged bibasilar opacities; recommending follow-up to ensure resolution, particularly of focal opacities in the right lung base. Continue Zosyn. Continue supportive care. Critical care time 30 minutes spent reviewing charts, reviewing labs, reviewing imaging, discussion with RN. 02/19/2021 POD #11 Right occipital craniotomy with evacuation of intracerebral hematoma sedated on vent Patient seen and examined at bedside Continue antibiotics per infectious disease Weaning ventilator and sedation as tolerated extubation in the next few days Plan of care discussed with bedside nurse Expected interval evolution of a right posterior temporal/occipital intraparenchymal hematoma status post decompressive craniotomy Large right temporo-occipital intraparenchymal bleed, most likely lobar hemorrhage from hypertension, consider venous sinus thrombosis, less likely in this location, aneurysmal bleed, head trauma (also unlikely). craniotomy 02/09 evening Suspect of aspiration, respiratory failure, hypertension, chronic obstructive pulmonary disease, improving acute kidney injury cont Zosyn glucose uncontrolled add Lantus 22 UNITS SQ HS elevated troponin suspect stress induced ischemia 36 MIN CC TIME 02/18/2021 POD #10 Right occipital craniotomy with evacuation of intracerebral hematoma sedated on vent Patient seen and examined at bedside Continue antibiotics per infectious disease Weaning ventilator and sedation as tolerated extubation in the next few days Plan of care discussed with bedside nurse Expected interval evolution of a right posterior temporal/occipital intraparenchymal hematoma status post decompressive craniotomy Large right temporo-occipital intraparenchymal bleed, most likely lobar hemorrhage from hypertension, consider venous sinus thrombosis, less likely in this location, aneurysmal bleed, head trauma (also unlikely). Had craniotomy 7/8 evening Suspect of aspiration, respiratory failure, hypertension, chronic obstructive pulmonary disease, improving acute kidney injury cont Zosyn glucose uncontrolled add Lantus 22 UNITS SQ HS 34 MIN CC TIME 02/17/2021 POD #8 Right occipital craniotomy with evacuation of intracerebral hematoma sedated on vent Patient seen and examined at bedside Good response to IV Lasix Continue antibiotics per infectious disease Weaning ventilator and sedation as tolerated extubation in the next few days Plan of care discussed with bedside nurse Expected interval evolution of a right posterior temporal/occipital intraparenchymal hematoma status post decompressive craniotomy Large right temporo-occipital intraparenchymal bleed, most likely lobar hemorrhage from hypertension, consider venous sinus thrombosis, less likely in this location, aneurysmal bleed, head trauma (also unlikely). Had craniotomy 7/8 evening Suspect of aspiration, respiratory failure, hypertension, chronic obstructive pulmonary disease, improving acute kidney injury cont Zosyn glucose uncontrolled add Lantus 18 UNITS SQ HS 33 MIN CC TIME 02/16/2021 POD #7 Right occipital craniotomy with evacuation of intracerebral hematoma sedated on vent Patient seen and examined at bedside Good response to IV Lasix Continue antibiotics per infectious disease Weaning ventilator and sedation as tolerated extubation in the next few days Plan of care discussed with bedside nurse Expected interval evolution of a right posterior temporal/occipital intraparenchymal hematoma status post decompressive craniotomy Large right temporo-occipital intraparenchymal bleed, most likely lobar hemorrhage from hypertension, consider venous sinus thrombosis, less likely in this location, aneurysmal bleed, head trauma (also unlikely). Had craniotomy 7/8 evening Suspect of aspiration, respiratory failure, hypertension, chronic obstructive pulmonary disease, improving acute kidney injury cont Zosyn glucose uncontrolled add Lantus 14 UNITS SQ HS 35 MIN CC TIME 02/15/2021 POD #6 Right occipital craniotomy with evacuation of intracerebral hematoma sedated on vent Patient seen and examined at bedside Good response to IV Lasix Continue antibiotics per infectious disease Weaning ventilator and sedation as tolerated Hopeful extubation in the next few days Plan of care discussed with bedside nurse Expected interval evolution of a right posterior temporal/occipital intraparenchymal hematoma status post decompressive craniotomy Large right temporo-occipital intraparenchymal bleed, most likely lobar hemorrhage from hypertension, consider venous sinus thrombosis, less likely in this location, aneurysmal bleed, head trauma (also unlikely). Had craniotomy 02/09 evening Suspect of aspiration, respiratory failure, hypertension, chronic obstructive pulmonary disease, improving acute kidney injury cont Zosyn glucose uncontrolled add Lantus 35 MIN CC TIME 02/14/2021 POD #5 Right occipital craniotomy with evacuation of intracerebral hematoma sedated on vent Patient seen and examined at bedside Good response to IV Lasix Continue antibiotics per infectious disease Weaning ventilator and sedation as tolerated Hopeful extubation in the next few days Plan of care discussed with bedside nurse Expected interval evolution of a right posterior temporal/occipital intraparenchymal hematoma status post decompressive craniotomy Large right temporo-occipital intraparenchymal bleed, most likely lobar hemorrhage from hypertension, consider venous sinus thrombosis, less likely in this location, aneurysmal bleed, head trauma (also unlikely). Had craniotomy 02/09 evening Suspect of aspiration, respiratory failure, hypertension, chronic obstructive pulmonary disease, improving acute kidney injury cont Zosyn glucose uncontrolled add Lantus 35 MIN CC TIME 02/13/2021 POD #4 Right occipital craniotomy with evacuation of intracerebral hematoma sedated on vent Patient seen and examined at bedside Good response to IV Lasix Continue antibiotics per infectious disease Weaning ventilator and sedation as tolerated Hopeful extubation in the next few days Plan of care discussed with bedside nurse Expected interval evolution of a right posterior temporal/occipital intraparenc hymal hematoma status post decompressive craniotomy Large right temporo-occipital intraparenchymal bleed, most likely lobar hemo rrhage from hypertension, consider venous sinus thrombosis, less likely in this location, aneurysmal bleed, head trauma (also unlikely). Had craniotomy 02/09 evening Suspect of aspiration, respiratory failure, hypertension, chronic obstructive pulmonary disease, improving acute kidney injury cont Zosyn 35 MIN CC TIME 02/12/2021 Patient seen and examined at bedside Remains intubated and sedated Good response to IV Lasix yesterday had nearly 3 L out; will diurese again today Continue antibiotics per infectious disease Weaning ventilator and sedation as tolerated Hopeful extubation in the next few days Plan of care discussed with bedside nurse 02/11/2021 Patient seen and examined at bedside No major clinical changes overnight however this morning patient has largely increased amount of secretions Chest x-ray concerning for possible pneumonia, will consult ID who recommended starting Zosyn Otherwise he remains intubated and sedated We will follow subspecialist input Plan discussed with bedside RN 02/10/2021 Patient seen and examined at bedside Underwent craniotomy yesterday due to unresponsiveness in the late afternoon; was also intubated Continues to have a poor neurologic status Neurology and neurosurgery following Discussed plan of care with bedside nurse Patient is a 61-year-old male transferred for to the ICU overnight due to hypertensive emergency and intracranial hemorrhage. Patient's mother at bedside provides most the history. She reports that patient had been in his usual state of health until yesterday morning when he reported feeling tired and having a headache. Patient mother reports he normally gets up early and goes outside however this was not the case yesterday. With this headache he took BC powder and went back to bed. Patient's mother reports that he was in and out of bed throughout most of the afternoon. Says patient did not eat anything yesterday which is very unusual for him. Approximately 1130 last night she had the patient get up to go to the bathroom and heard him fall. He however is able to get up and returned to bed; unknown if he hit his head at this time. Patient again woke up around 2 AM and woke up his mother asking for orange juice and then proceeded to fall again, she does not think he hit his head at this time. He was taken to hospital and found to have a systolic blood pressure greater than [address] scan found to have an intracranial hemorrhage. Due to severity of his condition he was transferred here. Patient's mother reports she is not aware of any past medical history other than hypertension which he intermittently takes hydrochlorothiazide for. Vitals/I&O Vitals/I&O: Vital Signs Date Time Temp Pulse Resp B/P (MAP) Pulse Ox O2 Delivery O2 Flow Rate FiO2 02/20/21 07:54 99.5 60 18 136/79 (98) 99 Ventilator 99.5 I & O 02/19/21 02/19/21 02/20/21 15:00 23:00 07:00 Intake Total 50 ml 2623 ml 1370 ml Output Total 875 ml 775 ml 775 ml Balance -825 ml 1848 ml 595 ml Physical Exam Physical Exam: GENERAL: Sedated, orally intubated gentleman, HEENT: ETT/OGT + NECK: Rt IJ clean LUNGS: Decreased breath sound at bases HEART: S1, S2 bradycardia ABDOMEN: Soft, nontender, no organomegaly. EXTREMITIES: + less edema, no cyanosis. SKIN:no gen rash NEUROLOGIC: unable to assess art line, central line clean General: Other (Intubated on a ventilator) Heart: Regular rate Lungs: Clear, Crackles Abdomen: Normal bowel sounds Extremities: No cyanosis Skin: Other (dressing dry and intact) Labs Labs: Laboratory Tests Test 02/19/21 12:50 02/19/21 12:55 02/19/21 17:41 02/19/21 20:53 Troponin I Quantitative 0.557 ng/mL (0.000-0.055) Glucose (Fingerstick) 222 mg/dL (70-99) 234 mg/dL (70-99) 223 mg/dL (70-99) Test 02/19/21 23:46 02/20/21 05:44 02/20/21 06:15 Glucose (Fingerstick) 202 mg/dL (70-99) 212 mg/dL (70-99) White Blood Count 10.3 x10^3/uL (4.0-11.0) Red Blood Count 3.69 x10^6/uL (4.30-5.70) Hemoglobin 11.1 g/dL (13.0-17.5) Hematocrit 33.9 % (39.0-53.0) Mean Corpuscular Volume 92 fL (79-100) Mean Corpuscular Hemoglobin 30 pg (25-35) Mean Corpuscular Hemoglobin Concent 33 g/dL (31-37) Red Cell Distribution Width 13.7 % (11.5-14.5) Platelet Count 225 x10^3/uL (140-400) Neutrophils (%) (Auto) 73 % (31-73) Lymphocytes (%) (Auto) 17 % (24-48) Monocytes (%) (Auto) 9 % (0-9) Eosinophils (%) (Auto) 1 % (0-3) Basophils (%) (Auto) 0 % (0-3) Neutrophils # (Auto) 7.5 x10^3/uL (1.8-7.7) Lymphocytes # (Auto) 1.7 x10^3/uL (1.0-4.8) Monocytes # (Auto) 0.9 x10^3/uL (0.0-1.1) Eosinophils # (Auto) 0.1 x10^3/uL (0.0-0.7) Basophils # (Auto) 0.0 x10^3/uL (0.0-0.2) Sodium Level 141 mmol/L (136-145) Potassium Level 4.2 mmol/L (3.5-5.1) Chloride Level 108 mmol/L (98-107) Carbon Dioxide Level 26 mmol/L (21-32) Anion Gap 7 (6-14) Blood Urea Nitrogen 23 mg/dL (8-26) Creatinine 1.2 mg/dL (0.7-1.3) Estimated GFR (Cockcroft-Gault) 74.7 BUN/Creatinine Ratio 19 (6-20) Glucose Level 214 mg/dL (70-99) Calcium Level 8.9 mg/dL (8.5-10.1) Phosphorus Level 4.0 mg/dL (2.6-4.7) Magnesium Level 2.1 mg/dL (1.8-2.4) Total Bilirubin 0.5 mg/dL (0.2-1.0) Aspartate Amino Transf (AST/SGOT) 60 U/L (15-37) Alanine Aminotransferase (ALT/SGPT) 117 U/L (16-63) Alkaline Phosphatase 112 U/L (46-116) Total Protein 6.4 g/dL (6.4-8.2) Albumin 2.2 g/dL (3.4-5.0) Albumin/Globulin Ratio 0.5 (1.0-1.7) Triglycerides Level 246 mg/dL (0-150) Comment Review of Relevant I have reviewed the following items neela (where applicable) has been applied. Medications: Current Medications Medications (Trade) Dose Ordered Sig/Lorraine Route PRN Reason Start Time Stop Time Status Last Admin Dose Admin Potassium Acetate 50 meq/Potassium Phosphate 13.6 mmol/Magnesium Sulfate 6 meq/ Calcium Gluconate 10 meq/ Multivitamins 5 ml/Zinc/Copper/ Manganese/ Selenium 1 ml/ Total Parenteral Nutrition/Amino Acids/Dextrose 2,040 ml @ 85 mls/hr TPN CONT IV 02/19/21 22:00 02/20/21 21:59 02/19/21 20:56 Insulin Glargine (Lantus Syringe) 25 unit QHS SQ 02/19/21 21:00 02/19/21 20:56 Acetaminophen (Tylenol) 650 mg PRN Q6HRS PRN PEG MILD PAIN / TEMP > 100.3'F 02/19/21 18:00 02/20/21 03:50 Justifications for Admission Other Justification JEANINE NEWMAN MD Feb 20, 2021 08:36
--- NOTE | 2021-02-20 09:09 | PDOC ---
DATE OF SERVICE DATE: 02/20/21 TIME: 09:08 SUBJECTIVE ROS Remains Intubated OBJECTIVE Vital Signs Vital Signs Date Time Temp Pulse Resp B/P (MAP) Pulse Ox O2 Delivery O2 Flow Rate FiO2 02/20/21 07:54 99.5 60 18 136/79 (98) 99 Ventilator 99.5 I & 0 Intake and Output 02/20/21 07:00 Intake Total 4043 ml Output Total 2425 ml Balance 1618 ml Intake IV Total 4043 ml Output Urine Total 2325 ml Gastric Drainage Total 100 ml PHYSICAL EXAM Physical Exam General Intubated/MV HEEN Intubated Neck Supple Lungs CTA ant CV S1 S2 Abd Soft, NT Ext No LE edema, No cyanosis Moore in place Skin No rash Neuro - exam per neurologist DIAGNOSIS/ASSESSMENT Assessment & Plan MARVIN -ATN Resolved , monitor, Supportive care, Maintain Hydration, Electrolytes stable, Large right temporo-occipital intraparenchymal bleed, most likely lobar hemorrhage s/p craniotomy 02/09 evening HypoKalemia Corrected HypetNatremia- improved, . On TPN Hypertensive emergency POA - Cardene gtt as indicated Acute hypoxic respiratory failure secondary to intracranial hemorrhage and hypertensive emergency. Hypoxia secondary to basilar atelectasis contributed by encephalopathy Long history of tobaccoism. CT angiogram showed bullous emphysema in the upper lobes. Nutrition - TPN COMMENT/RELEVANT DATA Meds Current Medications Medications (Trade) Dose Ordered Sig/Lorraine Start Time Stop Time Status Last Admin Dose Admin Acetaminophen (Tylenol Supp) 650 mg PRN Q6HRS PRN 02/11/21 21:15 Acetaminophen (Tylenol) 650 mg PRN Q6HRS PRN 02/19/21 18:00 02/20/21 03:50 650 MG Albuterol Sulfate (Ventolin Neb Soln) 2.5 mg PRN Q4HRS PRN 02/09/21 15:15 Atropine Sulfate (ATROPINE 0.5mg SYRINGE) 0.5 mg PRN Q5MIN PRN 02/15/21 14:15 Bupivacaine HCl/ Epinephrine Bitart (Sensorcain-Epi 0.5%-1:[id number] Mpf) 30 ml STK-MED ONCE 02/09/21 16:33 02/09/21 16:33 DC 02/09/21 17:49 5 ML Cefazolin Sodium (Ancef) 1 gm STK-MED ONCE 02/09/21 17:28 02/09/21 17:28 DC Cellulose (Surgicel Hemostat 4x8) 1 each STK-MED ONCE 02/09/21 16:33 02/09/21 16:33 DC 02/09/21 18:38 1 EACH Clonidine HCl (Catapres Tts-3) 1 patch WEEKLY 02/13/21 11:00 02/20/21 07:50 1 PATCH Dexmedetomidine HCl 400 mcg/ Sodium Chloride 100 ml @ 0 mls/hr CONT PRN 02/15/21 14:15 02/19/21 20:52 23.4 MLS/HR Dextrose 1,000 ml @ 75 mls/hr [id number] 02/17/21 10:30 02/19/21 12:57 DC 02/18/21 13:51 75 MLS/HR Dextrose (Dextrose 50%-Water Syringe) 12.5 gm PRN Q15MIN PRN 02/12/21 12:15 Fentanyl Citrate 55 ml @ 0 mls/hr CONT PRN 02/10/21 05:00 02/18/21 23:56 1 MLS/HR Fentanyl Citrate (Fentanyl 2ml Vial) 100 mcg STK-MED ONCE 02/09/21 17:43 02/09/21 17:43 DC Furosemide (Lasix) 40 mg 1X ONCE 02/12/21 12:30 02/12/21 12:31 DC 02/12/21 12:44 40 MG Gelatin (Gelfoam Size 100) 1 each STK-MED ONCE 02/09/21 16:33 02/09/21 16:33 DC 02/09/21 17:49 1 EACH Hydralazine HCl (Apresoline Inj) 10 mg PRN Q4HRS PRN 02/14/21 16:00 02/18/21 12:03 10 MG Info (CONTRAST GIVEN -- Rx MONITORING) 1 each PRN DAILY PRN 02/09/21 15:45 02/11/21 15:44 DC Info (Review Meds) 1 ea PRN 1X PRN 02/09/21 15:00 Info (Tpn Per Pharmacy) 1 each PRN DAILY PRN 02/11/21 11:15 02/19/21 12:06 1 EACH Insulin Glargine (Lantus Syringe) 25 unit QHS 02/19/21 21:00 02/19/21 20:56 25 UNIT Insulin Human Lispro (HumaLOG) 0-5 UNITS Q6HRS 02/12/21 12:00 02/20/21 05:46 2 UNITS Iohexol (Omnipaque 350 Mg/ml) 100 ml STK-MED ONCE 02/09/21 15:26 02/09/21 15:27 DC Labetalol HCl (Normodyne Iv Push) 10 mg PRN Q2HR PRN 02/09/21 06:15 02/18/21 15:06 10 MG Lidocaine HCl (Buffered Lidocaine 1%) 6 ml 1X ONCE 02/10/21 13:45 02/10/21 13:46 DC 02/10/21 13:57 3 ML Lidocaine HCl (Lidocaine HCl 2% Abboject) 100 mg 1X ONCE 02/09/21 17:15 02/09/21 17:16 DC Lorazepam (Ativan Inj) 2 mg 1X ONCE 02/09/21 11:00 02/09/21 11:01 DC 02/09/21 11:00 2 MG Midazolam HCl 100 ml @ 1 mls/hr CONT PRN 02/11/21 19:30 02/13/21 20:58 5 MLS/HR Nicardipine HCl 50 mg/Sodium Chloride 250 ml @ 12.5 mls/hr CONT PRN 02/09/21 06:15 02/16/21 14:00 50 MLS/HR Pantoprazole Sodium (PROTONIX VIAL for IV PUSH) 40 mg DAILYAC 02/10/21 09:00 02/20/21 07:47 40 MG Piperacillin Sod/ Tazobactam Sod 3.375 gm/Sodium Chloride 50 ml @ 100 mls/hr Q6HRS 02/11/21 09:00 02/20/21 05:46 100 MLS/HR Potassium Chloride/Dextrose/ Sod Cl 1,000 ml @ 80 mls/hr [id number] 02/10/21 09:00 02/10/21 13:21 DC Potassium Chloride/Water 100 ml @ 100 mls/hr Q1H 02/11/21 08:00 02/11/21 09:59 DC 02/11/21 10:07 100 MLS/HR Potassium Acetate 50 meq/Potassium Phosphate 13.6 mmol/Magnesium Sulfate 6 meq/ Calcium Gluconate 10 meq/ Multivitamins 5 ml/Zinc/Copper/ Manganese/ Selenium 1 ml/ Total Parenteral Nutrition/Amino Acids/Dextrose 2,040 ml @ 85 mls/hr TPN CONT 02/19/21 22:00 02/20/21 21:59 02/19/21 20:56 85 MLS/HR Propofol 100 ml @ 0 mls/hr CONT PRN PRN 02/09/21 17:15 02/10/21 05:14 DC Propofol (Diprivan) 200 mg 1X ONCE 02/09/21 17:15 02/09/21 17:16 DC Rocuronium Pryor (Zemuron) 100 mg STK-MED ONCE 02/09/21 17:58 02/09/21 17:59 DC Sevoflurane (Ultane) 90 ml STK-MED ONCE 02/09/21 19:20 02/09/21 19:21 DC Sodium Chloride 500 ml @ 500 mls/hr 1X PRN PRN 02/15/21 14:15 Sodium Chloride (SODIUM CHLORIDE 20ml) 20 ml STK-MED ONCE 02/09/21 18:50 02/09/21 18:50 DC Sodium Chloride 80 meq/Potassium Chloride 50 meq/ Potassium Phosphate 13.6 mmol/Magnesium Sulfate 6 meq/ Calcium Gluconate 10 meq/ Multivitamins 5 ml/Zinc/Copper/ Manganese/ Selenium 1 ml/ Total Parenteral Nutrition/Amino Acids/Dextrose 1,512 ml @ 63 mls/hr TPN CONT 02/13/21 22:00 02/14/21 21:59 DC 02/13/21 21:42 63 MLS/HR Sodium Chloride 90 meq/Potassium Chloride 50 meq/ Potassium Phosphate 13.6 mmol/Magnesium Sulfate 10 meq/ Calcium Gluconate 10 meq/ Multivitamins 5 ml/Zinc/Copper/ Manganese/ Selenium 1 ml/ Total Parenteral Nutrition/Amino Acids/Dextrose 1,512 ml @ 63 mls/hr TPN CONT 02/11/21 22:00 02/12/21 21:59 DC 02/11/21 22:32 63 MLS/HR Thrombin 20,000 unit STK-MED ONCE 02/09/21 16:33 02/09/21 16:33 DC 02/09/21 17:49 20,000 UNIT Vecuronium Pryor (Norcuron Bolus) 10 mg STK-MED ONCE 02/09/21 18:49 02/09/21 18:50 DC Lab Laboratory Tests Test 02/19/21 12:50 02/19/21 12:55 02/19/21 17:41 02/19/21 20:53 Troponin I Quantitative 0.557 ng/mL (0.000-0.055) Glucose (Fingerstick) 222 mg/dL (70-99) 234 mg/dL (70-99) 223 mg/dL (70-99) Test 02/19/21 23:46 02/20/21 05:44 02/20/21 06:15 Glucose (Fingerstick) 202 mg/dL (70-99) 212 mg/dL (70-99) White Blood Count 10.3 x10^3/uL (4.0-11.0) Red Blood Count 3.69 x10^6/uL (4.30-5.70) Hemoglobin 11.1 g/dL (13.0-17.5) Hematocrit 33.9 % (39.0-53.0) Mean Corpuscular Volume 92 fL (79-100) Mean Corpuscular Hemoglobin 30 pg (25-35) Mean Corpuscular Hemoglobin Concent 33 g/dL (31-37) Red Cell Distribution Width 13.7 % (11.5-14.5) Platelet Count 225 x10^3/uL (140-400) Neutrophils (%) (Auto) 73 % (31-73) Lymphocytes (%) (Auto) 17 % (24-48) Monocytes (%) (Auto) 9 % (0-9) Eosinophils (%) (Auto) 1 % (0-3) Basophils (%) (Auto) 0 % (0-3) Neutrophils # (Auto) 7.5 x10^3/uL (1.8-7.7) Lymphocytes # (Auto) 1.7 x10^3/uL (1.0-4.8) Monocytes # (Auto) 0.9 x10^3/uL (0.0-1.1) Eosinophils # (Auto) 0.1 x10^3/uL (0.0-0.7) Basophils # (Auto) 0.0 x10^3/uL (0.0-0.2) Sodium Level 141 mmol/L (136-145) Potassium Level 4.2 mmol/L (3.5-5.1) Chloride Level 108 mmol/L (98-107) Carbon Dioxide Level 26 mmol/L (21-32) Anion Gap 7 (6-14) Blood Urea Nitrogen 23 mg/dL (8-26) Creatinine 1.2 mg/dL (0.7-1.3) Estimated GFR (Cockcroft-Gault) 74.7 BUN/Creatinine Ratio 19 (6-20) Glucose Level 214 mg/dL (70-99) Calcium Level 8.9 mg/dL (8.5-10.1) Phosphorus Level 4.0 mg/dL (2.6-4.7) Magnesium Level 2.1 mg/dL (1.8-2.4) Total Bilirubin 0.5 mg/dL (0.2-1.0) Aspartate Amino Transf (AST/SGOT) 60 U/L (15-37) Alanine Aminotransferase (ALT/SGPT) 117 U/L (16-63) Alkaline Phosphatase 112 U/L (46-116) Total Protein 6.4 g/dL (6.4-8.2) Albumin 2.2 g/dL (3.4-5.0) Albumin/Globulin Ratio 0.5 (1.0-1.7) Triglycerides Level 246 mg/dL (0-150) Results All relevant outside records, renal labs, imaging studies, telemetry/EKG's were reviewed. Justicifation of Admission Dx: Justifications for Admission: Justification of Admission Dx: Yes Acute Hemorrhagic Stroke: Acute Hemorrhagic Stroke YULIA CAMACHO MD Feb 20, 2021 09:09
--- NOTE | 2021-02-20 09:27 | RAD ---
EXAM: XR ABDOMEN 1V 02/19/2021 4:22 PM CLINICAL INDICATION: OG placement COMPARISON: Abdominal radiograph 02/09/2021 TECHNIQUE: AP view the abdomen FINDINGS: Nasogastric tube terminates slightly higher in the gastric body. Bowel gas pattern is nons pecific. Normal volume of stool. There are bibasilar opacities. IMPRESSION: NG tube terminates in the gastric body. Electronically signed by: Holly Rajan MD (02/20/2021 9:25 AM) [id number]
[2021-02-20] MEDS: DEXMEDETOMIDINE 400 MCG in IV NORMAL SALINE 100ML 96 ML IV PRN ×4 (10:07→23:04)
--- NOTE | 2021-02-20 10:11 | PDOC ---
PULMONARY PROGRESS NOTES DATE: 02/20/21 TIME: 10:11 Subjective Sedated, no overnight events T-max yesterday 100.2 Vitals Vital Signs Date Time Temp Pulse Resp B/P (MAP) Pulse Ox O2 Delivery O2 Flow Rate FiO2 02/20/21 10:06 65 19 134/73 (93) 98 Ventilator 02/20/21 07:54 99.5 99.5 Comments ros unable to obtain sedated on vent Lungs: Clear, Crackles Cardiovascular: S1, S2 Abdomen: Soft, Non-tender Extremities: No Edema Skin: Warm Labs Laboratory Tests Test 02/18/21 11:17 02/18/21 12:30 02/18/21 17:11 02/18/21 21:36 Glucose (Fingerstick) 282 mg/dL (70-99) 283 mg/dL (70-99) 243 mg/dL (70-99) Troponin I Quantitative 1.135 ng/mL (0.000-0.055) Urine Opiates Screen Neg (NEG) Urine Methadone Screen Neg (NEG) Urine Barbiturates Neg (NEG) Urine Phencyclidine Screen Neg (NEG) Urine Amphetamine/Methamphetamine Neg (NEG) Urine Benzodiazepines Screen Pos (NEG) Urine Cocaine Screen Neg (NEG) Urine Cannabinoids Screen Neg (NEG) Urine Ethyl Alcohol Neg (NEG) Test 02/19/21 00:00 02/19/21 00:01 02/19/21 05:30 02/19/21 05:55 Glucose (Fingerstick) 247 mg/dL (70-99) 218 mg/dL (70-99) Troponin I Quantitative 0.364 ng/mL (0.000-0.055) 0.465 ng/mL (0.000-0.055) Sodium Level 144 mmol/L (136-145) Potassium Level 4.3 mmol/L (3.5-5.1) Chloride Level 107 mmol/L (98-107) Carbon Dioxide Level 26 mmol/L (21-32) Anion Gap 11 (6-14) Blood Urea Nitrogen 24 mg/dL (8-26) Creatinine 1.1 mg/dL (0.7-1.3) Estimated GFR (Cockcroft-Gault) 82.6 BUN/Creatinine Ratio 22 (6-20) Glucose Level 232 mg/dL (70-99) Calcium Level 8.6 mg/dL (8.5-10.1) Phosphorus Level 4.5 mg/dL (2.6-4.7) Magnesium Level 1.9 mg/dL (1.8-2.4) Total Bilirubin 0.5 mg/dL (0.2-1.0) Aspartate Amino Transf (AST/SGOT) 74 U/L (15-37) Alanine Aminotransferase (ALT/SGPT) 157 U/L (16-63) Alkaline Phosphatase 115 U/L (46-116) Total Protein 5.9 g/dL (6.4-8.2) Albumin 2.3 g/dL (3.4-5.0) Albumin/Globulin Ratio 0.6 (1.0-1.7) Test 02/19/21 12:50 02/19/21 12:55 02/19/21 17:41 02/19/21 20:53 Troponin I Quantitative 0.557 ng/mL (0.000-0.055) Glucose (Fingerstick) 222 mg/dL (70-99) 234 mg/dL (70-99) 223 mg/dL (70-99) Test 02/19/21 23:46 02/20/21 05:44 02/20/21 06:15 Glucose (Fingerstick) 202 mg/dL (70-99) 212 mg/dL (70-99) White Blood Count 10.3 x10^3/uL (4.0-11.0) Red Blood Count 3.69 x10^6/uL (4.30-5.70) Hemoglobin 11.1 g/dL (13.0-17.5) Hematocrit 33.9 % (39.0-53.0) Mean Corpuscular Volume 92 fL (79-100) Mean Corpuscular Hemoglobin 30 pg (25-35) Mean Corpuscular Hemoglobin Concent 33 g/dL (31-37) Red Cell Distribution Width 13.7 % (11.5-14.5) Platelet Count 225 x10^3/uL (140-400) Neutrophils (%) (Auto) 73 % (31-73) Lymphocytes (%) (Auto) 17 % (24-48) Monocytes (%) (Auto) 9 % (0-9) Eosinophils (%) (Auto) 1 % (0-3) Basophils (%) (Auto) 0 % (0-3) Neutrophils # (Auto) 7.5 x10^3/uL (1.8-7.7) Lymphocytes # (Auto) 1.7 x10^3/uL (1.0-4.8) Monocytes # (Auto) 0.9 x10^3/uL (0.0-1.1) Eosinophils # (Auto) 0.1 x10^3/uL (0.0-0.7) Basophils # (Auto) 0.0 x10^3/uL (0.0-0.2) Sodium Level 141 mmol/L (136-145) Potassium Level 4.2 mmol/L (3.5-5.1) Chloride Level 108 mmol/L (98-107) Carbon Dioxide Level 26 mmol/L (21-32) Anion Gap 7 (6-14) Blood Urea Nitrogen 23 mg/dL (8-26) Creatinine 1.2 mg/dL (0.7-1.3) Estimated GFR (Cockcroft-Gault) 74.7 BUN/Creatinine Ratio 19 (6-20) Glucose Level 214 mg/dL (70-99) Calcium Level 8.9 mg/dL (8.5-10.1) Phosphorus Level 4.0 mg/dL (2.6-4.7) Magnesium Level 2.1 mg/dL (1.8-2.4) Total Bilirubin 0.5 mg/dL (0.2-1.0) Aspartate Amino Transf (AST/SGOT) 60 U/L (15-37) Alanine Aminotransferase (ALT/SGPT) 117 U/L (16-63) Alkaline Phosphatase 112 U/L (46-116) Total Protein 6.4 g/dL (6.4-8.2) Albumin 2.2 g/dL (3.4-5.0) Albumin/Globulin Ratio 0.5 (1.0-1.7) Triglycerides Level 246 mg/dL (0-150) Laboratory Tests Test 02/19/21 12:50 02/19/21 12:55 02/19/21 17:41 02/19/21 20:53 Troponin I Quantitative 0.557 ng/mL (0.000-0.055) Glucose (Fingerstick) 222 mg/dL (70-99) 234 mg/dL (70-99) 223 mg/dL (70-99) Test 02/19/21 23:46 02/20/21 05:44 02/20/21 06:15 Glucose (Fingerstick) 202 mg/dL (70-99) 212 mg/dL (70-99) White Blood Count 10.3 x10^3/uL (4.0-11.0) Red Blood Count 3.69 x10^6/uL (4.30-5.70) Hemoglobin 11.1 g/dL (13.0-17.5) Hematocrit 33.9 % (39.0-53.0) Mean Corpuscular Volume 92 fL (79-100) Mean Corpuscular Hemoglobin 30 pg (25-35) Mean Corpuscular Hemoglobin Concent 33 g/dL (31-37) Red Cell Distribution Width 13.7 % (11.5-14.5) Platelet Count 225 x10^3/uL (140-400) Neutrophils (%) (Auto) 73 % (31-73) Lymphocytes (%) (Auto) 17 % (24-48) Monocytes (%) (Auto) 9 % (0-9) Eosinophils (%) (Auto) 1 % (0-3) Basophils (%) (Auto) 0 % (0-3) Neutrophils # (Auto) 7.5 x10^3/uL (1.8-7.7) Lymphocytes # (Auto) 1.7 x10^3/uL (1.0-4.8) Monocytes # (Auto) 0.9 x10^3/uL (0.0-1.1) Eosinophils # (Auto) 0.1 x10^3/uL (0.0-0.7) Basophils # (Auto) 0.0 x10^3/uL (0.0-0.2) Sodium Level 141 mmol/L (136-145) Potassium Level 4.2 mmol/L (3.5-5.1) Chloride Level 108 mmol/L (98-107) Carbon Dioxide Level 26 mmol/L (21-32) Anion Gap 7 (6-14) Blood Urea Nitrogen 23 mg/dL (8-26) Creatinine 1.2 mg/dL (0.7-1.3) Estimated GFR (Cockcroft-Gault) 74.7 BUN/Creatinine Ratio 19 (6-20) Glucose Level 214 mg/dL (70-99) Calcium Level 8.9 mg/dL (8.5-10.1) Phosphorus Level 4.0 mg/dL (2.6-4.7) Magnesium Level 2.1 mg/dL (1.8-2.4) Total Bilirubin 0.5 mg/dL (0.2-1.0) Aspartate Amino Transf (AST/SGOT) 60 U/L (15-37) Alanine Aminotransferase (ALT/SGPT) 117 U/L (16-63) Alkaline Phosphatase 112 U/L (46-116) Total Protein 6.4 g/dL (6.4-8.2) Albumin 2.2 g/dL (3.4-5.0) Albumin/Globulin Ratio 0.5 (1.0-1.7) Triglycerides Level 246 mg/dL (0-150) Comments CXR 02/18/21 IMPRESSION: Unchanged bibasilar opacities. Recommend follow-up to ensure resolution, particularly of focal opacities in the right lung base. CXR 02/17/21 IMPRESSION: 1. Stable life support devices. 2. Stable bibasilar opacities. 3. Stable small left pleural effusion. IMPRESSION: Chest x-ray 02/13 1. Stable support lines and tubes. 2. Severe right upper lobe predominant bullous emphysema. 3. Stable right perihilar linear atelectasis or infiltrate superimposed on diffuse interstitial prominence and small pleural effusions. Impression . IMPRESSION: 1. Acute hypoxic respiratory failure multifactorial 2. Abnormal x-ray 3. Long history of tobaccoism. CT angiogram showed bullous emphysema in the upper lobes. 3. Acute kidney injury. 4. Leukocytosi 5. s/p Right occipital craniotomy with evacuation of intracerebral hematoma. 6. Encephalopathy, multifactorial 7. Uncontrolled hypertension 8. Fever, per ID CT head 02/13, discussed with Dr. Louie IMPRESSION: 1. Expected interval evolution of a right posterior temporal/occipital intraparenchymal hematoma status post decompressive craniotomy. 2. Expected evolution of a small amount of subarachnoid and intraventricular clot. DATE OF SURGERY: 02/09/2021 PREOPERATIVE DIAGNOSIS: Right posterior temporoparietal occipital intracerebral hemorrhage with neurologic deterioration. POSTOPERATIVE DIAGNOSIS: Right posterior temporoparietal occipital intracerebral hemorrhage with neurologic deterioration. OPERATION PERFORMED: Right occipital craniotomy with evacuation of intracerebral hematoma. Plan . Updated 02/20 General surgery unavailable for trach We will consult ENT Antibiotics per ID Patient had a T-max yesterday 100.2 DVT GI prophylaxis A.m. ABG and chest x-ray UPDATED 02/19/21 Continue current vent support A/C mode Follow surgery recs for trach-- plan for next week Follow ID recs for ABX on zosyn Follow Cardiology recs Follow neurosurgery recs-- POD#11 S/P Right occipital craniotomy with evacuation of intracerebral hematoma TPN for nutritional support Hyperglycemia per PCP Cardene gtt for HTN PRN DVT/GI PPX D/W RN and RT Social work for DC planning UPDATED 02/18/21 Continue current vent support A/C mode Follow CXR/ABG - reviewed Consult surgery for trach-- plan for next week Follow ID recs for ABX on zosyn Follow neurosurgery recs-- POD#10 S/P Right occipital craniotomy with evacuation of intracerebral hematoma TPN for nutritional support DVT/GI PPX D/W RN and RT MANJULA PADILLA MD Feb 20, 2021 10:11
--- NOTE | 2021-02-20 10:17 | NUR ---
SS following up with discharge planning. SS reviewed pt chart and discussed with pt RN. Pt is currently on the vent at 40%. COVID19 negative. Pt on TPN and IV Zosyn. Pt on Propofol and Precedex. Surgery consulted for possible trach. Self pay. Med assist following. SS will continue to follow for discharge planning.
--- NOTE | 2021-02-20 10:19 | PDOC ---
Infectious Disease Note Subjective: Subjective intubated ,sedated T-max 100.2 Discussed with nursing staff Vital Signs: Vital Signs Vital Signs Date Time Temp Pulse Resp B/P (MAP) Pulse Ox O2 Delivery O2 Flow Rate FiO2 02/20/21 10:06 65 19 134/73 (93) 98 Ventilator 02/20/21 07:54 99.5 99.5 Physical Exam: PHYSICAL EXAM GENERAL: Sedated, orally intubated gentleman, HEENT: ETT/OGT + NECK: Rt IJ clean LUNGS: Decreased breath sound at bases HEART: S1, S2 bradycardia ABDOMEN: Soft, nontender, no organomegaly. EXTREMITIES: + less edema, no cyanosis. SKIN:no gen rash NEUROLOGIC: unable to assess Medications: Inpatient Meds: Medications reviewed. Labs: Lab Laboratory Tests Test 02/19/21 12:50 02/19/21 12:55 02/19/21 17:41 02/19/21 20:53 Troponin I Quantitative 0.557 ng/mL (0.000-0.055) Glucose (Fingerstick) 222 mg/dL (70-99) 234 mg/dL (70-99) 223 mg/dL (70-99) Test 02/19/21 23:46 02/20/21 05:44 02/20/21 06:15 Glucose (Fingerstick) 202 mg/dL (70-99) 212 mg/dL (70-99) White Blood Count 10.3 x10^3/uL (4.0-11.0) Red Blood Count 3.69 x10^6/uL (4.30-5.70) Hemoglobin 11.1 g/dL (13.0-17.5) Hematocrit 33.9 % (39.0-53.0) Mean Corpuscular Volume 92 fL (79-100) Mean Corpuscular Hemoglobin 30 pg (25-35) Mean Corpuscular Hemoglobin Concent 33 g/dL (31-37) Red Cell Distribution Width 13.7 % (11.5-14.5) Platelet Count 225 x10^3/uL (140-400) Neutrophils (%) (Auto) 73 % (31-73) Lymphocytes (%) (Auto) 17 % (24-48) Monocytes (%) (Auto) 9 % (0-9) Eosinophils (%) (Auto) 1 % (0-3) Basophils (%) (Auto) 0 % (0-3) Neutrophils # (Auto) 7.5 x10^3/uL (1.8-7.7) Lymphocytes # (Auto) 1.7 x10^3/uL (1.0-4.8) Monocytes # (Auto) 0.9 x10^3/uL (0.0-1.1) Eosinophils # (Auto) 0.1 x10^3/uL (0.0-0.7) Basophils # (Auto) 0.0 x10^3/uL (0.0-0.2) Sodium Level 141 mmol/L (136-145) Potassium Level 4.2 mmol/L (3.5-5.1) Chloride Level 108 mmol/L (98-107) Carbon Dioxide Level 26 mmol/L (21-32) Anion Gap 7 (6-14) Blood Urea Nitrogen 23 mg/dL (8-26) Creatinine 1.2 mg/dL (0.7-1.3) Estimated GFR (Cockcroft-Gault) 74.7 BUN/Creatinine Ratio 19 (6-20) Glucose Level 214 mg/dL (70-99) Calcium Level 8.9 mg/dL (8.5-10.1) Phosphorus Level 4.0 mg/dL (2.6-4.7) Magnesium Level 2.1 mg/dL (1.8-2.4) Total Bilirubin 0.5 mg/dL (0.2-1.0) Aspartate Amino Transf (AST/SGOT) 60 U/L (15-37) Alanine Aminotransferase (ALT/SGPT) 117 U/L (16-63) Alkaline Phosphatase 112 U/L (46-116) Total Protein 6.4 g/dL (6.4-8.2) Albumin 2.2 g/dL (3.4-5.0) Albumin/Globulin Ratio 0.5 (1.0-1.7) Triglycerides Level 246 mg/dL (0-150) Objective: Assessment: 1. Fever. 2. Acute hypoxic respiratory failure status post intubation suspected as piration.sputum cultures NRF 3. Intracranial bleed with mass effect, status post craniotomy and hematoma evacuation. 4. Encephalopathy 5. Respiratory failure. 6. Hypertension. 7. Chronic obstructive pulmonary disease. 8. MARVIN improved U/S BUE to neg for DVT Plan: Plan of Care cont Zosyn Start Zyvox General surgery consulted for trach Monitor labs and cults cont supportive care Discussed with nursing staff RAMU DELGADO MD Feb 20, 2021 10:19
[2021-02-20] MEDS: TPN PER PHARMACY MC PRN (12:48)
--- NOTE | 2021-02-20 12:49 | NUR ---
Pharmacy TPN Dosing Note S: COOPER CHAVEZ is a 61 year old M Currently receiving Central Continuous TPN started 02/11/21 B:Pertinent PMH: ILEUS, UNABLE TO START TUBE FEEDS Height: 6 feet, 2 inches Weight: 115.119675 kg Current diet: NPO LABS: Sodium: 141 Potassium: 4.2 Chloride: 108 Calcium: 8.9 Corrected Calcium: 10.34 Magnesium: 2.1 CO2: 23 SCr: 1.2 Glucose: 212-214 Albumin: 2.2 AST: 60 ALT: 117 TPN FORMULA: TPN TYPE: Central Continuous AMINO ACIDS: 60 gm DEXTROSE: 195 gm POTASSIUM ACETATE: 50 mEq POTASSIUM PHOSPHATE: 13.6 mmol MAGNESIUM: 6 mEq CALCIUM: 10 mEq MULTIPLE VITAMIN: 5 ml TRACE ELEMENTS: 1 ml TPN PLAN: TG still elevated, will continue to leave lipids out. Na improved -BMP, Mag and Phos in AM R: Continue same TPN formula. Will monitor electrolytes, glucose, and tolerance to TPN. MIKALA RIGGS [facility], 02/20/21 1430
--- NOTE | 2021-02-20 13:46 | PDOC2 ---
CONSULT Date of Consult Date of Consult DATE: 02/20/21 TIME: 12:59 Reason for Consult Reason for Consult: trach Referring Physician Referring Physician: Dr Dominguez Identification/Chief Complaint Chief Complaint resp failure Source Source: Chart review History of Present Illness Reason for Visit: admitted with hypertensive emergency, intracranial hemorrhage Underwent right occipital craniotomy--has been intubated since multiple medical issues -renal failure, HTN, emphysema Surgical consult for trach Past Medical History Pulmonary: Asthma, COPD Hepatobiliary: Hep A/B/C Past Surgical History Past Surgical History: No pertinent history Family History Family History: Hypertension Social History <1 pack per day Current Medications Current Medications Current Medications Nicardipine HCl 50 mg/Sodium Chloride 250 ml @ 12.5 mls/hr CONT PRN IV SEE I/O RECORD Last administered on 02/16/21at 14:00; Start 02/09/21 at 06:15 Labetalol HCl (Normodyne Iv Push) 10 mg PRN Q2HR PRN IVP HYPERTENSION Last administered on 02/18/21at 15:06; Start 02/09/21 at 06:15 Lorazepam (Ativan Inj) 2 mg 1X ONCE IVP Last administered on 02/09/21at 10:54; Start 02/09/21 at 10:45; Stop 02/09/21 at 10:46; Status DC Lorazepam (Ativan Inj) 2 mg 1X ONCE IVP Last administered on 02/09/21at 11:00; Start 02/09/21 at 11:00; Stop 02/09/21 at 11:01; Status DC Fentanyl Citrate (Fentanyl 2ml Vial) 25 mcg PRN Q2HR PRN IVP MODERATE TO SEVERE PAIN Last administered on 02/09/21at 13:37; Start 02/09/21 at 13:30; Stop 02/18/21 at 22:53; Status DC Info (Review Meds) 1 ea PRN 1X PRN MC SEE COMMENTS; Start 02/09/21 at 15:00 Acetaminophen (Tylenol Supp) 650 mg PRN Q6HRS PRN [place] FEVER > 100.5'F or 38'C; Start 02/09/21 at 15:00; Stop 02/11/21 at 21:12; Status DC Albuterol Sulfate (Ventolin Neb Soln) 2.5 mg PRN Q4HRS PRN NEB SHORTNESS OF BREATH; Start 02/09/21 at 15:15 Iohexol (Omnipaque 350 Mg/ml) 75 ml 1X ONCE IV Last administered on 02/09/21at 15:52; Start 02/09/21 at 15:30; Stop 02/09/21 at 15:35; Status DC Iohexol (Omnipaque 350 Mg/ml) 100 ml STK-MED ONCE .ROUTE ; Start 02/09/21 at 15:26; Stop 02/09/21 at 15:27; Status DC Info (CONTRAST GIVEN -- Rx MONITORING) 1 each PRN DAILY PRN MC SEE COMMENTS; Start 02/09/21 at 15:45; Stop 02/11/21 at 15:44; Status DC Propofol 100 ml @ As Directed STK-MED ONCE IV ; Start 02/09/21 at 15:51; Stop 02/09/21 at 15:51; Status DC Rocuronium [place] (Zemuron) 50 mg STK-MED ONCE .ROUTE ; Start 02/09/21 at 15:51; Stop 02/09/21 at 15:51; Status DC Lidocaine HCl (Lidocaine HCl 2% Abboject) 100 mg STK-MED ONCE .ROUTE ; Start 02/09/21 at 15:52; Stop 02/09/21 at 15:53; Status DC Propofol 100 ml @ 3.507 mls/ hr CONT PRN IV PER PROTOCOL Last administered on 02/20/21at 12:08; Start 02/09/21 at 16:15 Lidocaine HCl (Lidocaine HCl 2% Abboject) 100 mg 1X ONCE IV Last administered on 02/09/21at 16:17; Start 02/09/21 at 16:15; Stop 02/09/21 at 16:17; Status DC Rocuronium [place] (Zemuron) 50 mg 1X ONCE IV Last administered on 02/09/21at 16:17; Start 02/09/21 at 16:15; Stop 02/09/21 at 16:17; Status DC Rocuronium [place] (Zemuron) 100 mg STK-MED ONCE .ROUTE ; Start 02/09/21 at 16:31; Stop 02/09/21 at 16:32; Status DC Gelatin (Gelfoam Size 100) 1 each STK-MED ONCE .ROUTE Last administered on 02/09/21at 17:49; Start 02/09/21 at 16:33; Stop 02/09/21 at 16:33; Status DC Bupivacaine HCl/ Epinephrine Bitart (Sensorcain-Epi 0.5%-1:085152 Mpf) 30 ml STK-MED ONCE .ROUTE Last administered on 02/09/21at 17:49; Start 02/09/21 at 16:3 3; Stop 02/09/21 at 16:33; Status DC Cellulose (Surgicel Hemostat 4x8) 1 each STK-MED ONCE .ROUTE Last administered on 02/09/21at 18:38; Start 02/09/21 at 16:33; Stop 02/09/21 at 16:33; Status DC Thrombin 20,000 unit STK-MED ONCE TP Last administered on 02/09/21at 17:49; Start 02/09/21 at 16:33; Stop 02/09/21 at 16:33; Status DC Fentanyl Citrate (Fentanyl 2ml Vial) 75 mcg 1X ONCE IVP Last administered on 02/09/21at 16:45; Start 02/09/21 at 16:45; Stop 02/09/21 at 16:47; Status DC Propofol (Diprivan) 200 mg 1X ONCE IV ; Start 02/09/21 at 17:15; Stop 02/09/21 at 17:16; Status DC Lidocaine HCl (Lidocaine HCl 2% Abboject) 100 mg 1X ONCE IV ; Start 02/09/21 at 17:15; Stop 02/09/21 at 17:16; Status DC Rocuronium [place] (Zemuron) 50 mg 1X ONCE IV ; Start 02/09/21 at 17:15; Stop 02/09/21 at 17:16; Status DC Propofol 100 ml @ 0 mls/hr CONT PRN PRN IV SEDATION; Start 02/09/21 at 17:15; Stop 02/10/21 at 05:14; Status DC Cefazolin Sodium (Ancef) 1 gm STK-MED ONCE IVP ; Start 02/09/21 at 17:28; Stop 02/09/21 at 17:28; Status DC Fentanyl Citrate (Fentanyl 2ml Vial) 100 mcg STK-MED ONCE .ROUTE ; Start 02/09/21 at 17:43; Stop 02/09/21 at 17:43; Status DC Rocuronium [place] (Zemuron) 100 mg STK-MED ONCE .ROUTE ; Start 02/09/21 at 17:58; Stop 02/09/21 at 17:59; Status DC Vecuronium [place] (Norcuron Bolus) 10 mg STK-MED ONCE IV ; Start 02/09/21 at 18:49; Stop 02/09/21 at 18:50; Status DC Sodium Chloride (SODIUM CHLORIDE 20ml) 20 ml STK-MED ONCE IJ ; Start 02/09/21 at 18:50; Stop 02/09/21 at 18:50; Status DC Sevoflurane (Ultane) 90 ml STK-MED ONCE IH ; Start 02/09/21 at 19:20; Stop 02/09/21 at 19:21; Status DC Fentanyl Citrate 30 ml @ 2.5 mls/hr CONT PRN IV SEE PROTOCOL Last administered on 02/09/21at 23:40; Start 02/09/21 at 23:15; Stop 02/10/21 at 04:43; Status DC Fentanyl Citrate 55 ml @ 0 mls/hr CONT PRN IV SEE I/O Last administered on 02/18/21at 23:56; Start 02/10/21 at 05:00 Potassium Chloride/Dextrose/ Sod Cl 1,000 ml @ 80 mls/hr [id number] IV ; Start 02/10/21 at 09:00; Stop 02/10/21 at 13:21; Status DC Pantoprazole Sodium (PROTONIX VIAL for IV PUSH) 40 mg DAILYAC IVP Last administered on 02/20/21at 07:47; Start 02/10/21 at 09:00 Lidocaine HCl (Buffered Lidocaine 1%) 3 ml STK-MED ONCE .ROUTE ; Start 02/10/21 at 13:18; Stop 02/10/21 at 13:18; Status DC Sodium Chloride 1,000 ml @ 80 mls/hr [id number] IV Last administered on 02/12/21at 03:00; Start 02/10/21 at 13:30; Stop 02/12/21 at 15:36; Status DC Lidocaine HCl (Buffered Lidocaine 1%) 6 ml 1X ONCE INJ Last administered on 02/10/21at 13:57; Start 02/10/21 at 13:45; Stop 02/10/21 at 13:46; Status DC Potassium Chloride/Water 100 ml @ 100 mls/hr Q1H IV Last administered on 02/11/21at 10:07; Start 02/11/21 at 08:00; Stop 02/11/21 at 09:59; Status DC Piperacillin Sod/ Tazobactam Sod 3.375 gm/Sodium Chloride 50 ml @ 100 mls/hr Q6HRS IV Last administered on 02/20/21at 11:33; Start 02/11/21 at 09:00 Info (Tpn Per Pharmacy) 1 each PRN DAILY PRN MC SEE COMMENTS Last administered on 02/20/21at 12:48; Start 02/11/21 at 11:15 Sodium Chloride 90 meq/Potassium Chloride 50 meq/ Potassium Phosphate 13.6 mmol/Magnesium Sulfate 10 meq/ Calcium Gluconate 10 meq/ Multivitamins 5 ml/Zinc/Copper/ Manganese/ Selenium 1 ml/ Total Parenteral Nutrition/Amino Acids/Dextrose 1,512 ml @ 63 mls/hr TPN CONT IV Last administered on 02/11/21at 22:32; Start 02/11/21 at 22:00; Stop 02/12/21 at 21:59; Status DC Furosemide (Lasix) 20 mg 1X ONCE IVP Last administered on 02/11/21at 15:11; Start 02/11/21 at 15:30; Stop 02/11/21 at 15:31; Status DC Furosemide (Lasix) 20 mg 1X ONCE IVP Last administered on 02/11/21at 17:00; Start 02/11/21 at 17:00; Stop 02/11/21 at 17:01; Status DC Midazolam HCl 100 ml @ 1 mls/hr CONT PRN IV SEE PROTOCOL Last administered on 02/13/21at 20:58; Start 02/11/21 at 19:30 Acetaminophen (Tylenol Supp) 650 mg PRN Q6HRS PRN [place] MILD PAIN / TEMP > 100.3'F; Start 02/11/21 at 21:15 Sodium Chloride 80 meq/Potassium Chloride 50 meq/ Potassium Phosphate 13.6 mmol/Magnesium Sulfate 6 meq/ Calcium Gluconate 10 meq/ Multivitamins 5 ml/Zinc/Copper/ Manganese/ Selenium 1 ml/ Total Parenteral Nutrition/Amino Acids/Dextrose 1,512 ml @ 63 mls/hr TPN CONT IV Last administered on 02/12/21at 22:09; Start 02/12/21 at 22:00; Stop 02/13/21 at 21:59; Status DC Furosemide (Lasix) 40 mg 1X ONCE IVP Last administered on 02/12/21at 12:44; Start 02/12/21 at 12:30; Stop 02/12/21 at 12:31; Status DC Insulin Human Lispro (HumaLOG) 0-5 UNITS Q6HRS SQ Last administered on 02/20/21at 05:46; Start 02/12/21 at 12:00 Dextrose (Dextrose 50%-Water Syringe) 12.5 gm PRN Q15MIN PRN IV SEE COMMENTS; Start 02/12/21 at 12:15 Clonidine HCl (Catapres Tts-3) 1 patch WEEKLY TD Last administered on 02/20/21at 07:50; Start 02/13/21 at 11:00 Sodium Chloride 80 meq/Potassium Chloride 50 meq/ Potassium Phosphate 13.6 mmol/Magnesium Sulfate 6 meq/ Calcium Gluconate 10 meq/ Multivitamins 5 ml/Zinc/Copper/ Manganese/ Selenium 1 ml/ Total Parenteral Nutrition/Amino Acids/Dextrose 1,512 ml @ 63 mls/hr TPN CONT IV Last administered on 07/25at 21:42; Start 02/13/21 at 22:00; Stop 02/14/21 at 21:59; Status DC Potassium Acetate 50 meq/Potassium Phosphate 13.6 mmol/Magnesium Sulfate 6 meq/ Calcium Gluconate 10 meq/ Multivitamins 5 ml/Zinc/Copper/ Manganese/ Selenium 1 ml/ Total Parenteral Nutrition/Amino Acids/Dextrose 1,512 ml @ 63 mls/hr TPN CONT IV Last administered on 02/14/21at 21:59; Start 02/14/21 at 22:00; Stop 02/15/21 at 21:59; Status DC Insulin Glargine (Lantus Syringe) 10 unit QHS SQ Last administered on 02/15/21at 22:11; Start 02/14/21 at 21:00; Stop 02/16/21 at 12:42; Status DC Hydralazine HCl (Apresoline Inj) 10 mg PRN Q4HRS PRN IVP ELEVATED BP, SEE COMMENTS Last administered on 02/18/21at 12:03; Start 02/14/21 at 16:00 Potassium Acetate 50 meq/Potassium Phosphate 13.6 mmol/Magnesium Sulfate 6 meq/ Calcium Gluconate 10 meq/ Multivitamins 5 ml/Zinc/Copper/ Manganese/ Selenium 1 ml/ Total Parenteral Nutrition/Amino Acids/Dextrose 1,512 ml @ 63 mls/hr TPN CONT IV Last administered on 02/15/21at 22:13; Start 02/15/21 at 22:00; Stop 02/16/21 at 21:59; Status DC Dexmedetomidine HCl 400 mcg/ Sodium Chloride 100 ml @ 0 mls/hr CONT PRN IV PER PROTOCOL Last administered on 02/20/21at 10:07; Start 02/15/21 at 14:15 Sodium Chloride 500 ml @ 500 mls/hr 1X PRN PRN IV SEE COMMENTS; Start 02/15/21 at 14:15 Atropine Sulfate (ATROPINE 0.5mg SYRINGE) 0.5 mg PRN Q5MIN PRN IV SEE COMMENTS; Start 02/15/21 at 14:15 Potassium Acetate 50 meq/Potassium Phosphate 13.6 mmol/Magnesium Sulfate 6 meq/ Calcium Gluconate 10 meq/ Multivitamins 5 ml/Zinc/Copper/ Manganese/ Selenium 1 ml/ Total Parenteral Nutrition/Amino Acids/Dextrose 1,512 ml @ 63 mls/hr TPN CONT IV Last administered on 02/16/21at 22:59; Start 02/16/21 at 22:00; Stop 02/17/21 at 21:59; Status DC Insulin Glargine (Lantus Syringe) 14 unit QHS SQ Last administered on 02/16/21at 21:14; Start 02/16/21 at 21:00; Stop 02/17/21 at 14:15; Status DC Potassium Acetate 50 meq/Potassium Phosphate 13.6 mmol/Magnesium Sulfate 6 meq/ Calcium Gluconate 10 meq/ Multivitamins 5 ml/Zinc/Copper/ Manganese/ Selenium 1 ml/ Total Parenteral Nutrition/Amino Acids/Dextrose 1,512 ml @ 63 mls/hr TPN CONT IV Last administered on 02/17/21at 20:48; Start 02/17/21 at 22:00; Stop 02/18/21 at 21:59; Status DC Dextrose 1,000 ml @ 75 mls/hr [id number] IV Last administered on 02/18/21at 13:51; Start 02/17/21 at 10:30; Stop 02/19/21 at 12:57; Status DC Insulin Glargine (Lantus Syringe) 18 unit QHS SQ Last administered on 02/17/21at 20:46; Start 02/17/21 at 21:00; Stop 02/18/21 at 11:56; Status DC Insulin Glargine (Lantus Syringe) 22 unit QHS SQ Last administered on 02/18/21at 21:00; Start 02/18/21 at 21:00; Stop 02/19/21 at 14:08; Status DC Potassium Acetate 50 meq/Potassium Phosphate 13.6 mmol/Magnesium Sulfate 6 meq/ Calcium Gluconate 10 meq/ Multivitamins 5 ml/Zinc/Copper/ Manganese/ Selenium 1 ml/ Total Parenteral Nutrition/Amino Acids/Dextrose 1,512 ml @ 63 mls/hr TPN CONT IV Last administered on 02/18/21at 21:43; Start 02/18/21 at 22:00; Stop 02/19/21 at 21:59; Status DC Potassium Acetate 50 meq/Potassium Phosphate 13.6 mmol/Magnesium Sulfate 6 meq/ Calcium Gluconate 10 meq/ Multivitamins 5 ml/Zinc/Copper/ Manganese/ Selenium 1 ml/ Total Parenteral Nutrition/Amino Acids/Dextrose 2,040 ml @ 85 mls/hr TPN CONT IV Last administered on 02/19/21at 20:56; Start 02/19/21 at 22:00; Stop 02/20/21 at 21:59 Insulin Glargine (Lantus Syringe) 25 unit QHS SQ Last administered on 02/19/21at 20:56; Start 02/19/21 at 21:00 Acetaminophen (Tylenol) 650 mg PRN Q6HRS PRN PEG MILD PAIN / TEMP > 100.3'F Last administered on 02/20/21at 03:50; Start 02/19/21 at 18:00 Potassium Acetate 50 meq/Potassium Phosphate 13.6 mmol/Magnesium Sulfate 6 meq/ Calcium Gluconate 10 meq/ Multivitamins 5 ml/Zinc/Copper/ Manganese/ Selenium 1 ml/ Total Parenteral Nutrition/Amino Acids/Dextrose 2,040 ml @ 85 mls/hr TPN CONT IV ; Start 02/20/21 at 22:00; Stop 02/21/21 at 21:59 Allergies Allergies: Coded Allergies: No Known Drug Allergies (Unverified , 02/09/21) ROS Review of System unable to obtain Physical Exam General: Other (sedated ) HEENT: Mucous membr. moist/pink Lungs: Other (vent) Heart: Regular rate, Normal S1, Normal S2 Abdomen: Soft Extremities: No clubbing, No edema MUSCULOSKELETAL: No swelling Vitals VITALS Vital Signs Date Time Temp Pulse Resp B/P (MAP) Pulse Ox O2 Delivery O2 Flow Rate FiO2 02/20/21 12:14 99 Ventilator 02/20/21 11:57 99.8 60 16 120/70 (87) 99.8 Labs Labs Laboratory Tests Test 02/18/21 17:11 02/18/21 21:36 02/19/21 00:00 02/19/21 00:01 Glucose (Fingerstick) 283 mg/dL (70-99) 243 mg/dL (70-99) 247 mg/dL (70-99) Troponin I Quantitative 0.364 ng/mL (0.000-0.055) Test 02/19/21 05:30 02/19/21 05:55 02/19/21 12:50 02/19/21 12:55 Sodium Level 144 mmol/L (136-145) Potassium Level 4.3 mmol/L (3.5-5.1) Chloride Level 107 mmol/L (98-107) Carbon Dioxide Level 26 mmol/L (21-32) Anion Gap 11 (6-14) Blood Urea Nitrogen 24 mg/dL (8-26) Creatinine 1.1 mg/dL (0.7-1.3) Estimated GFR (Cockcroft-Gault) 82.6 BUN/Creatinine Ratio 22 (6-20) Glucose Level 232 mg/dL (70-99) Calcium Level 8.6 mg/dL (8.5-10.1) Phosphorus Level 4.5 mg/dL (2.6-4.7) Magnesium Level 1.9 mg/dL (1.8-2.4) Total Bilirubin 0.5 mg/dL (0.2-1.0) Aspartate Amino Transf (AST/SGOT) 74 U/L (15-37) Alanine Aminotransferase (ALT/SGPT) 157 U/L (16-63) Alkaline Phosphatase 115 U/L (46-116) Troponin I Quantitative 0.465 ng/mL (0.000-0.055) 0.557 ng/mL (0.000-0.055) Total Protein 5.9 g/dL (6.4-8.2) Albumin 2.3 g/dL (3.4-5.0) Albumin/Globulin Ratio 0.6 (1.0-1.7) Glucose (Fingerstick) 218 mg/dL (70-99) 222 mg/dL (70-99) Test 02/19/21 17:41 02/19/21 20:53 02/19/21 23:46 02/20/21 05:44 Glucose (Fingerstick) 234 mg/dL (70-99) 223 mg/dL (70-99) 202 mg/dL (70-99) 212 mg/dL (70-99) Test 02/20/21 06:15 White Blood Count 10.3 x10^3/uL (4.0-11.0) Red Blood Count 3.69 x10^6/uL (4.30-5.70) Hemoglobin 11.1 g/dL (13.0-17.5) Hematocrit 33.9 % (39.0-53.0) Mean Corpuscular Volume 92 fL (79-100) Mean Corpuscular Hemoglobin 30 pg (25-35) Mean Corpuscular Hemoglobin Concent 33 g/dL (31-37) Red Cell Distribution Width 13.7 % (11.5-14.5) Platelet Count 225 x10^3/uL (140-400) Neutrophils (%) (Auto) 73 % (31-73) Lymphocytes (%) (Auto) 17 % (24-48) Monocytes (%) (Auto) 9 % (0-9) Eosinophils (%) (Auto) 1 % (0-3) Basophils (%) (Auto) 0 % (0-3) Neutrophils # (Auto) 7.5 x10^3/uL (1.8-7.7) Lymphocytes # (Auto) 1.7 x10^3/uL (1.0-4.8) Monocytes # (Auto) 0.9 x10^3/uL (0.0-1.1) Eosinophils # (Auto) 0.1 x10^3/uL (0.0-0.7) Basophils # (Auto) 0.0 x10^3/uL (0.0-0.2) Sodium Level 141 mmol/L (136-145) Potassium Level 4.2 mmol/L (3.5-5.1) Chloride Level 108 mmol/L (98-107) Carbon Dioxide Level 26 mmol/L (21-32) Anion Gap 7 (6-14) Blood Urea Nitrogen 23 mg/dL (8-26) Creatinine 1.2 mg/dL (0.7-1.3) Estimated GFR (Cockcroft-Gault) 74.7 BUN/Creatinine Ratio 19 (6-20) Glucose Level 214 mg/dL (70-99) Calcium Level 8.9 mg/dL (8.5-10.1) Phosphorus Level 4.0 mg/dL (2.6-4.7) Magnesium Level 2.1 mg/dL (1.8-2.4) Total Bilirubin 0.5 mg/dL (0.2-1.0) Aspartate Amino Transf (AST/SGOT) 60 U/L (15-37) Alanine Aminotransferase (ALT/SGPT) 117 U/L (16-63) Alkaline Phosphatase 112 U/L (46-116) Total Protein 6.4 g/dL (6.4-8.2) Albumin 2.2 g/dL (3.4-5.0) Albumin/Globulin Ratio 0.5 (1.0-1.7) Triglycerides Level 246 mg/dL (0-150) Laboratory Tests Test 02/19/21 17:41 02/19/21 20:53 02/19/21 23:46 02/20/21 05:44 Glucose (Fingerstick) 234 mg/dL (70-99) 223 mg/dL (70-99) 202 mg/dL (70-99) 212 mg/dL (70-99) Test 02/20/21 06:15 White Blood Count 10.3 x10^3/uL (4.0-11.0) Red Blood Count 3.69 x10^6/uL (4.30-5.70) Hemoglobin 11.1 g/dL (13.0-17.5) Hematocrit 33.9 % (39.0-53.0) Mean Corpuscular Volume 92 fL (79-100) Mean Corpuscular Hemoglobin 30 pg (25-35) Mean Corpuscular Hemoglobin Concent 33 g/dL (31-37) Red Cell Distribution Width 13.7 % (11.5-14.5) Platelet Count 225 x10^3/uL (140-400) Neutrophils (%) (Auto) 73 % (31-73) Lymphocytes (%) (Auto) 17 % (24-48) Monocytes (%) (Auto) 9 % (0-9) Eosinophils (%) (Auto) 1 % (0-3) Basophils (%) (Auto) 0 % (0-3) Neutrophils # (Auto) 7.5 x10^3/uL (1.8-7.7) Lymphocytes # (Auto) 1.7 x10^3/uL (1.0-4.8) Monocytes # (Auto) 0.9 x10^3/uL (0.0-1.1) Eosinophils # (Auto) 0.1 x10^3/uL (0.0-0.7) Basophils # (Auto) 0.0 x10^3/uL (0.0-0.2) Sodium Level 141 mmol/L (136-145) Potassium Level 4.2 mmol/L (3.5-5.1) Chloride Level 108 mmol/L (98-107) Carbon Dioxide Level 26 mmol/L (21-32) Anion Gap 7 (6-14) Blood Urea Nitrogen 23 mg/dL (8-26) Creatinine 1.2 mg/dL (0.7-1.3) Estimated GFR (Cockcroft-Gault) 74.7 BUN/Creatinine Ratio 19 (6-20) Glucose Level 214 mg/dL (70-99) Calcium Level 8.9 mg/dL (8.5-10.1) Phosphorus Level 4.0 mg/dL (2.6-4.7) Magnesium Level 2.1 mg/dL (1.8-2.4) Total Bilirubin 0.5 mg/dL (0.2-1.0) Aspartate Amino Transf (AST/SGOT) 60 U/L (15-37) Alanine Aminotransferase (ALT/SGPT) 117 U/L (16-63) Alkaline Phosphatase 112 U/L (46-116) Total Protein 6.4 g/dL (6.4-8.2) Albumin 2.2 g/dL (3.4-5.0) Albumin/Globulin Ratio 0.5 (1.0-1.7) Triglycerides Level 246 mg/dL (0-150) Assessment/Plan Assessment/Plan resp failure will d/w with Candice when returns about timing of trach [employer] Feb 20, 2021 13:45
--- NOTE | 2021-02-20 15:43 | PDOC ---
PROGRESS NOTES Date of Service DATE: 02/20/21 TIME: 15:40 Subjective Subjective POD# 12 S/P Right occipital craniotomy with evacuation of intracerebral hematoma sedated on vent opened eyes, moves left side per RN Objective Objective Vital Signs Date Time Temp Pulse Resp B/P (MAP) Pulse Ox O2 Delivery O2 Flow Rate FiO2 02/20/21 14:01 69 18 146/68 (94) 97 Ventilator 02/20/21 11:57 99.8 99.8 Intake and Output 02/20/21 07:00 Intake Total 4043 ml Output Total 2425 ml Balance 1618 ml Intake IV Total 4043 ml Output Urine Total 2325 ml Gastric Drainage Total 100 ml Physical Exam General: Other (sedated, on vent) Skin: Other (incision dry, warren) Plan Plan of Care CT reviewed, slightly improved BP control wean sedation as tolerated Trach this week D/W RN Comment Review of Relevant I have reviewed the following items neela (where applicable) has been applied. Labs Laboratory Tests Test 02/18/21 17:11 02/18/21 21:36 02/19/21 00:00 02/19/21 00:01 Glucose (Fingerstick) 283 mg/dL (70-99) 243 mg/dL (70-99) 247 mg/dL (70-99) Troponin I Quantitative 0.364 ng/mL (0.000-0.055) Test 02/19/21 05:30 02/19/21 05:55 02/19/21 12:50 02/19/21 12:55 Sodium Level 144 mmol/L (136-145) Potassium Level 4.3 mmol/L (3.5-5.1) Chloride Level 107 mmol/L (98-107) Carbon Dioxide Level 26 mmol/L (21-32) Anion Gap 11 (6-14) Blood Urea Nitrogen 24 mg/dL (8-26) Creatinine 1.1 mg/dL (0.7-1.3) Estimated GFR (Cockcroft-Gault) 82.6 BUN/Creatinine Ratio 22 (6-20) Glucose Level 232 mg/dL (70-99) Calcium Level 8.6 mg/dL (8.5-10.1) Phosphorus Level 4.5 mg/dL (2.6-4.7) Magnesium Level 1.9 mg/dL (1.8-2.4) Total Bilirubin 0.5 mg/dL (0.2-1.0) Aspartate Amino Transf (AST/SGOT) 74 U/L (15-37) Alanine Aminotransferase (ALT/SGPT) 157 U/L (16-63) Alkaline Phosphatase 115 U/L (46-116) Troponin I Quantitative 0.465 ng/mL (0.000-0.055) 0.557 ng/mL (0.000-0.055) Total Protein 5.9 g/dL (6.4-8.2) Albumin 2.3 g/dL (3.4-5.0) Albumin/Globulin Ratio 0.6 (1.0-1.7) Glucose (Fingerstick) 218 mg/dL (70-99) 222 mg/dL (70-99) Test 02/19/21 17:41 02/19/21 20:53 02/19/21 23:46 02/20/21 05:44 Glucose (Fingerstick) 234 mg/dL (70-99) 223 mg/dL (70-99) 202 mg/dL (70-99) 212 mg/dL (70-99) Test 02/20/21 06:15 02/20/21 12:36 White Blood Count 10.3 x10^3/uL (4.0-11.0) Red Blood Count 3.69 x10^6/uL (4.30-5.70) Hemoglobin 11.1 g/dL (13.0-17.5) Hematocrit 33.9 % (39.0-53.0) Mean Corpuscular Volume 92 fL (79-100) Mean Corpuscular Hemoglobin 30 pg (25-35) Mean Corpuscular Hemoglobin Concent 33 g/dL (31-37) Red Cell Distribution Width 13.7 % (11.5-14.5) Platelet Count 225 x10^3/uL (140-400) Neutrophils (%) (Auto) 73 % (31-73) Lymphocytes (%) (Auto) 17 % (24-48) Monocytes (%) (Auto) 9 % (0-9) Eosinophils (%) (Auto) 1 % (0-3) Basophils (%) (Auto) 0 % (0-3) Neutrophils # (Auto) 7.5 x10^3/uL (1.8-7.7) Lymphocytes # (Auto) 1.7 x10^3/uL (1.0-4.8) Monocytes # (Auto) 0.9 x10^3/uL (0.0-1.1) Eosinophils # (Auto) 0.1 x10^3/uL (0.0-0.7) Basophils # (Auto) 0.0 x10^3/uL (0.0-0.2) Sodium Level 141 mmol/L (136-145) Potassium Level 4.2 mmol/L (3.5-5.1) Chloride Level 108 mmol/L (98-107) Carbon Dioxide Level 26 mmol/L (21-32) Anion Gap 7 (6-14) Blood Urea Nitrogen 23 mg/dL (8-26) Creatinine 1.2 mg/dL (0.7-1.3) Estimated GFR (Cockcroft-Gault) 74.7 BUN/Creatinine Ratio 19 (6-20) Glucose Level 214 mg/dL (70-99) Calcium Level 8.9 mg/dL (8.5-10.1) Phosphorus Level 4.0 mg/dL (2.6-4.7) Magnesium Level 2.1 mg/dL (1.8-2.4) Total Bilirubin 0.5 mg/dL (0.2-1.0) Aspartate Amino Transf (AST/SGOT) 60 U/L (15-37) Alanine Aminotransferase (ALT/SGPT) 117 U/L (16-63) Alkaline Phosphatase 112 U/L (46-116) Total Protein 6.4 g/dL (6.4-8.2) Albumin 2.2 g/dL (3.4-5.0) Albumin/Globulin Ratio 0.5 (1.0-1.7) Triglycerides Level 246 mg/dL (0-150) Glucose (Fingerstick) 218 mg/dL (70-99) Laboratory Tests Test 02/19/21 17:41 02/19/21 20:53 02/19/21 23:46 02/20/21 05:44 Glucose (Fingerstick) 234 mg/dL (70-99) 223 mg/dL (70-99) 202 mg/dL (70-99) 212 mg/dL (70-99) Test 02/20/21 06:15 02/20/21 12:36 White Blood Count 10.3 x10^3/uL (4.0-11.0) Red Blood Count 3.69 x10^6/uL (4.30-5.70) Hemoglobin 11.1 g/dL (13.0-17.5) Hematocrit 33.9 % (39.0-53.0) Mean Corpuscular Volume 92 fL (79-100) Mean Corpuscular Hemoglobin 30 pg (25-35) Mean Corpuscular Hemoglobin Concent 33 g/dL (31-37) Red Cell Distribution Width 13.7 % (11.5-14.5) Platelet Count 225 x10^3/uL (140-400) Neutrophils (%) (Auto) 73 % (31-73) Lymphocytes (%) (Auto) 17 % (24-48) Monocytes (%) (Auto) 9 % (0-9) Eosinophils (%) (Auto) 1 % (0-3) Basophils (%) (Auto) 0 % (0-3) Neutrophils # (Auto) 7.5 x10^3/uL (1.8-7.7) Lymphocytes # (Auto) 1.7 x10^3/uL (1.0-4.8) Monocytes # (Auto) 0.9 x10^3/uL (0.0-1.1) Eosinophils # (Auto) 0.1 x10^3/uL (0.0-0.7) Basophils # (Auto) 0.0 x10^3/uL (0.0-0.2) Sodium Level 141 mmol/L (136-145) Potassium Level 4.2 mmol/L (3.5-5.1) Chloride Level 108 mmol/L (98-107) Carbon Dioxide Level 26 mmol/L (21-32) Anion Gap 7 (6-14) Blood Urea Nitrogen 23 mg/dL (8-26) Creatinine 1.2 mg/dL (0.7-1.3) Estimated GFR (Cockcroft-Gault) 74.7 BUN/Creatinine Ratio 19 (6-20) Glucose Level 214 mg/dL (70-99) Calcium Level 8.9 mg/dL (8.5-10.1) Phosphorus Level 4.0 mg/dL (2.6-4.7) Magnesium Level 2.1 mg/dL (1.8-2.4) Total Bilirubin 0.5 mg/dL (0.2-1.0) Aspartate Amino Transf (AST/SGOT) 60 U/L (15-37) Alanine Aminotransferase (ALT/SGPT) 117 U/L (16-63) Alkaline Phosphatase 112 U/L (46-116) Total Protein 6.4 g/dL (6.4-8.2) Albumin 2.2 g/dL (3.4-5.0) Albumin/Globulin Ratio 0.5 (1.0-1.7) Triglycerides Level 246 mg/dL (0-150) Glucose (Fingerstick) 218 mg/dL (70-99) Microbiology 02/11/21 Blood Culture - Final, Complete NO GROWTH AFTER 5 DAYS 02/11/21 Gram Stain Evaluation - Final, Complete 02/11/21 Respiratory Culture - Final, Complete Medications Current Medications Nicardipine HCl 50 mg/Sodium Chloride 250 ml @ 12.5 mls/hr CONT PRN IV SEE I/O RECORD Last administered on 02/16/21at 14:00; Start 02/09/21 at 06:15 Labetalol HCl (Normodyne Iv Push) 10 mg PRN Q2HR PRN IVP HYPERTENSION- 1ST CHOICE Last administered on 02/18/21at 15:06; Start 02/09/21 at 06:15 Lorazepam (Ativan Inj) 2 mg 1X ONCE IVP Last administered on 02/09/21at 10:54; Start 02/09/21 at 10:45; Stop 02/09/21 at 10:46; Status DC Lorazepam (Ativan Inj) 2 mg 1X ONCE IVP Last administered on 02/09/21at 11:00; Start 02/09/21 at 11:00; Stop 02/09/21 at 11:01; Status DC Fentanyl Citrate (Fentanyl 2ml Vial) 25 mcg PRN Q2HR PRN IVP MODERATE TO SEVERE PAIN Last administered on 02/09/21at 13:37; Start 02/09/21 at 13:30; Stop 02/18/21 at 22:53; Status DC Info (Review Meds) 1 ea PRN 1X PRN MC SEE COMMENTS; Start 02/09/21 at 15:00 Acetaminophen (Tylenol Supp) 650 mg PRN Q6HRS PRN [place] FEVER > 100.5'F or 38'C; Start 02/09/21 at 15:00; Stop 02/11/21 at 21:12; Status DC Albuterol Sulfate (Ventolin Neb Soln) 2.5 mg PRN Q4HRS PRN NEB SHORTNESS OF BREATH; Start 02/09/21 at 15:15 Iohexol (Omnipaque 350 Mg/ml) 75 ml 1X ONCE IV Last administered on 02/09/21at 15:52; Start 02/09/21 at 15:30; Stop 02/09/21 at 15:35; Status DC Iohexol (Omnipaque 350 Mg/ml) 100 ml STK-MED ONCE .ROUTE ; Start 02/09/21 at 15:26; Stop 02/09/21 at 15:27; Status DC Info (CONTRAST GIVEN -- Rx MONITORING) 1 each PRN DAILY PRN MC SEE COMMENTS; Start 02/09/21 at 15:45; Stop 02/11/21 at 15:44; Status DC Propofol 100 ml @ As Directed STK-MED ONCE IV ; Start 02/09/21 at 15:51; Stop 02/09/21 at 15:51; Status DC Rocuronium [place] (Zemuron) 50 mg STK-MED ONCE .ROUTE ; Start 02/09/21 at 15:51; Stop 02/09/21 at 15:51; Status DC Lidocaine HCl (Lidocaine HCl 2% Abboject) 100 mg STK-MED ONCE .ROUTE ; Start 02/09/21 at 15:52; Stop 02/09/21 at 15:53; Status DC Propofol 100 ml @ 3.507 mls/ hr CONT PRN IV PER PROTOCOL Last administered on 02/20/21at 12:08; Start 02/09/21 at 16:15 Lidocaine HCl (Lidocaine HCl 2% Abboject) 100 mg 1X ONCE IV Last administered on 02/09/21at 16:17; Start 02/09/21 at 16:15; Stop 02/09/21 at 16:17; Status DC Rocuronium [place] (Zemuron) 50 mg 1X ONCE IV Last administered on 02/09/21at 16:17; Start 02/09/21 at 16:15; Stop 02/09/21 at 16:17; Status DC Rocuronium [place] (Zemuron) 100 mg STK-MED ONCE .ROUTE ; Start 02/09/21 at 16:31; Stop 02/09/21 at 16:32; Status DC Gelatin (Gelfoam Size 100) 1 each STK-MED ONCE .ROUTE Last administered on 02/09/21at 17:49; Start 02/09/21 at 16:33; Stop 02/09/21 at 16:33; Status DC Bupivacaine HCl/ Epinephrine Bitart (Sensorcain-Epi 0.5%-1:[id number] Mpf) 30 ml STK-MED ONCE .ROUTE Last administered on 02/09/21at 17:49; Start 02/09/21 at 16:33; Stop 02/09/21 at 16:33; Status DC Cellulose (Surgicel Hemostat 4x8) 1 each STK-MED ONCE .ROUTE Last administered on 02/09/21at 18:38; Start 02/09/21 at 16:33; Stop 02/09/21 at 16:33; Status DC Thrombin 20,000 unit STK-MED ONCE TP Last administered on 02/09/21at 17:49; Start 02/09/21 at 16:33; Stop 02/09/21 at 16:33; Status DC Fentanyl Citrate (Fentanyl 2ml Vial) 75 mcg 1X ONCE IVP Last administered on 02/09/21at 16:45; Start 02/09/21 at 16:45; Stop 02/09/21 at 16:47; Status DC Propofol (Diprivan) 200 mg 1X ONCE IV ; Start 02/09/21 at 17:15; Stop 02/09/21 at 17:16; Status DC Lidocaine HCl (Lidocaine HCl 2% Abboject) 100 mg 1X ONCE IV ; Start 02/09/21 at 17:15; Stop 02/09/21 at 17:16; Status DC Rocuronium [place] (Zemuron) 50 mg 1X ONCE IV ; Start 02/09/21 at 17:15; Stop 02/09/21 at 17:16; Status DC Propofol 100 ml @ 0 mls/hr CONT PRN PRN IV SEDATION; Start 02/09/21 at 17:15; Stop 02/10/21 at 05:14; Status DC Cefazolin Sodium (Ancef) 1 gm STK-MED ONCE IVP ; Start 02/09/21 at 17:28; Stop 02/09/21 at 17:28; Status DC Fentanyl Citrate (Fentanyl 2ml Vial) 100 mcg STK-MED ONCE .ROUTE ; Start 02/09/21 at 17:43; Stop 02/09/21 at 17:43; Status DC Rocuronium [place] (Zemuron) 100 mg STK-MED ONCE .ROUTE ; Start 02/09/21 at 17:58; Stop 02/09/21 at 17:59; Status DC Vecuronium [place] (Norcuron Bolus) 10 mg STK-MED ONCE IV ; Start 02/09/21 at 18:49; Stop 02/09/21 at 18:50; Status DC Sodium Chloride (SODIUM CHLORIDE 20ml) 20 ml STK-MED ONCE IJ ; Start 02/09/21 at 18:50; Stop 02/09/21 at 18:50; Status DC Sevoflurane (Ultane) 90 ml STK-MED ONCE IH ; Start 02/09/21 at 19:20; Stop 02/09/21 at 19:21; Status DC Fentanyl Citrate 30 ml @ 2.5 mls/hr CONT PRN IV SEE PROTOCOL Last administered on 02/09/21at 23:40; Start 02/09/21 at 23:15; Stop 02/10/21 at 04:43; Status DC Fentanyl Citrate 55 ml @ 0 mls/hr CONT PRN IV SEE I/O Last administered on 02/18/21at 23:56; Start 02/10/21 at 05:00 Potassium Chloride/Dextrose/ Sod Cl 1,000 ml @ 80 mls/hr [id number] IV ; Start 02/10/21 at 09:00; Stop 02/10/21 at 13:21; Status DC Pantoprazole Sodium (PROTONIX VIAL for IV PUSH) 40 mg DAILYAC IVP Last administered on 02/20/21at 07:47; Start 02/10/21 at 09:00 Lidocaine HCl (Buffered Lidocaine 1%) 3 ml STK-MED ONCE .ROUTE ; Start 02/10/21 at 13:18; Stop 02/10/21 at 13:18; Status DC Sodium Chloride 1,000 ml @ 80 mls/hr [id number] IV Last administered on 02/12/21at 03:00; Start 02/10/21 at 13:30; Stop 02/12/21 at 15:36; Status DC Lidocaine HCl (Buffered Lidocaine 1%) 6 ml 1X ONCE INJ Last administered on 02/10/21at 13:57; Start 02/10/21 at 13:45; Stop 02/10/21 at 13:46; Status DC Potassium Chloride/Water 100 ml @ 100 mls/hr Q1H IV Last administered on 02/11/21at 10:07; Start 02/11/21 at 08:00; Stop 02/11/21 at 09:59; Status DC Piperacillin Sod/ Tazobactam Sod 3.375 gm/Sodium Chloride 50 ml @ 100 mls/hr Q6HRS IV Last administered on 02/20/21at 11:33; Start 02/11/21 at 09:00 Info (Tpn Per Pharmacy) 1 each PRN DAILY PRN MC SEE COMMENTS Last administered on 02/20/21at 12:48; Start 02/11/21 at 11:15 Sodium Chloride 90 meq/Potassium Chloride 50 meq/ Potassium Phosphate 13.6 mmol/Magnesium Sulfate 10 meq/ Calcium Gluconate 10 meq/ Multivitamins 5 ml/Zinc/Copper/ Manganese/ Selenium 1 ml/ Total Parenteral Nutrition/Amino Acids/Dextrose 1,512 ml @ 63 mls/hr TPN CONT IV Last administered on 02/11/21a t 22:32; Start 02/11/21 at 22:00; Stop 02/12/21 at 21:59; Status DC Furosemide (Lasix) 20 mg 1X ONCE IVP Last administered on 02/11/21at 15:11; Start 02/11/21 at 15:30; Stop 02/11/21 at 15:31; Status DC Furosemide (Lasix) 20 mg 1X ONCE IVP Last administered on 02/11/21at 17:00; Start 02/11/21 at 17:00; Stop 02/11/21 at 17:01; Status DC Midazolam HCl 100 ml @ 1 mls/hr CONT PRN IV SEE PROTOCOL Last administered on 02/13/21at 20:58; Start 02/11/21 at 19:30 Acetaminophen (Tylenol Supp) 650 mg PRN Q6HRS PRN [place] MILD PAIN / TEMP > 100.3'F; Start 02/11/21 at 21:15 Sodium Chloride 80 meq/Potassium Chloride 50 meq/ Potassium Phosphate 13.6 mmol/Magnesium Sulfate 6 meq/ Calcium Gluconate 10 meq/ Multivitamins 5 ml/Zinc/Copper/ Manganese/ Selenium 1 ml/ Total Parenteral Nutrition/Amino Acids/Dextrose 1,512 ml @ 63 mls/hr TPN CONT IV Last administered on 02/12/21at 22:09; Start 02/12/21 at 22:00; Stop 02/13/21 at 21:59; Status DC Furosemide (Lasix) 40 mg 1X ONCE IVP Last administered on 02/12/21at 12:44; Start 02/12/21 at 12:30; Stop 02/12/21 at 12:31; Status DC Insulin Human Lispro (HumaLOG) 0-5 UNITS Q6HRS SQ Last administered on 02/02 04/25at 13:24; Start 02/12/21 at 12:00 Dextrose (Dextrose 50%-Water Syringe) 12.5 gm PRN Q15MIN PRN IV SEE COMMENTS; Start 02/12/21 at 12:15 Clonidine HCl (Catapres Tts-3) 1 patch WEEKLY TD Last administered on 02/20/21at 07:50; Start 02/13/21 at 11:00 Sodium Chloride 80 meq/Potassium Chloride 50 meq/ Potassium Phosphate 13.6 mmol/Magnesium Sulfate 6 meq/ Calcium Gluconate 10 meq/ Multivitamins 5 ml/Zinc/Copper/ Manganese/ Selenium 1 ml/ Total Parenteral Nutrition/Amino Acids/Dextrose 1,512 ml @ 63 mls/hr TPN CONT IV Last administered on 02/13/21at 21:42; Start 02/13/21 at 22:00; Stop 02/14/21 at 21:59; Status DC Potassium Acetate 50 meq/Potassium Phosphate 13.6 mmol/Magnesium Sulfate 6 meq/ Calcium Gluconate 10 meq/ Multivitamins 5 ml/Zinc/Copper/ Manganese/ Selenium 1 ml/ Total Parenteral Nutrition/Amino Acids/Dextrose 1,512 ml @ 63 mls/hr TPN CONT IV Last administered on 02/14/21at 21:59; Start 02/14/21 at 22:00; Stop 02/15/21 at 21:59; Status DC Insulin Glargine (Lantus Syringe) 10 unit QHS SQ Last administered on 02/15/21at 22:11; Start 02/14/21 at 21:00; Stop 02/16/21 at 12:42; Status DC Hydralazine HCl (Apresoline Inj) 10 mg PRN Q4HRS PRN IVP ELEVATED BP, SEE COMMENTS Last administered on 02/18/21at 12:03; Start 02/14/21 at 16:00 Potassium Acetate 50 meq/Potassium Phosphate 13.6 mmol/Magnesium Sulfate 6 meq/ Calcium Gluconate 10 meq/ Multivitamins 5 ml/Zinc/Copper/ Manganese/ Selenium 1 ml/ Total Parenteral Nutrition/Amino Acids/Dextrose 1,512 ml @ 63 mls/hr TPN CONT IV Last administered on 02/15/21at 22:13; Start 02/15/21 at 22:00; Stop 02/16/21 at 21:59; Status DC Dexmedetomidine HCl 400 mcg/ Sodium Chloride 100 ml @ 0 mls/hr CONT PRN IV PER PROTOCOL Last administered on 02/20/21at 14:01; Start 02/15/21 at 14:15 Sodium Chloride 500 ml @ 500 mls/hr 1X PRN PRN IV SEE COMMENTS; Start 02/15/21 at 14:15 Atropine Sulfate (ATROPINE 0.5mg SYRINGE) 0.5 mg PRN Q5MIN PRN IV SEE COMMENTS; Start 02/15/21 at 14:15 Potassium Acetate 50 meq/Potassium Phosphate 13.6 mmol/Magnesium Sulfate 6 meq/ Calcium Gluconate 10 meq/ Multivitamins 5 ml/Zinc/Copper/ Manganese/ Selenium 1 ml/ Total Parenteral Nutrition/Amino Acids/Dextrose 1,512 ml @ 63 mls/hr TPN CONT IV Last administered on 02/16/21at 22:59; Start 02/16/21 at 22:00; Stop 02/17/21 at 21:59; Status DC Insulin Glargine (Lantus Syringe) 14 unit QHS SQ Last administered on 02/16/21at 21:14; Start 02/16/21 at 21:00; Stop 02/17/21 at 14:15; Status DC Potassium Acetate 50 meq/Potassium Phosphate 13.6 mmol/Magnesium Sulfate 6 meq/ Calcium Gluconate 10 meq/ Multivitamins 5 ml/Zinc/Copper/ Manganese/ Selenium 1 ml/ Total Parenteral Nutrition/Amino Acids/Dextrose 1,512 ml @ 63 mls/hr TPN CONT IV Last administered on 02/17/21at 20:48; Start 02/17/21 at 22:00; Stop 02/18/21 at 21:59; Status DC Dextrose 1,000 ml @ 75 mls/hr [id number] IV Last administered on 02/18/21at 13:51; Start 02/17/21 at 10:30; Stop 02/19/21 at 12:57; Status DC Insulin Glargine (Lantus Syringe) 18 unit QHS SQ Last administered on 02/17/21at 20:46; Start 02/17/21 at 21:00; Stop 02/18/21 at 11:56; Status DC Insulin Glargine (Lantus Syringe) 22 unit QHS SQ Last administered on 02/18/21at 21:00; Start 02/18/21 at 21:00; Stop 02/19/21 at 14:08; Status DC Potassium Acetate 50 meq/Potassium Phosphate 13.6 mmol/Magnesium Sulfate 6 meq/ Calcium Gluconate 10 meq/ Multivitamins 5 ml/Zinc/Copper/ Manganese/ Selenium 1 ml/ Total Parenteral Nutrition/Amino Acids/Dextrose 1,512 ml @ 63 mls/hr TPN CONT IV Last administered on 02/18/21at 21:43; Start 02/18/21 at 22:00; Stop 02/19/21 at 21:59; Status DC Potassium Acetate 50 meq/Potassium Phosphate 13.6 mmol/Magnesium Sulfate 6 meq/ Calcium Gluconate 10 meq/ Multivitamins 5 ml/Zinc/Copper/ Manganese/ Selenium 1 ml/ Total Parenteral Nutrition/Amino Acids/Dextrose 2,040 ml @ 85 mls/hr TPN CONT IV Last administered on 02/19/21at 20:56; Start 02/19/21 at 22:00; Stop 02/20/21 at 21:59 Insulin Glargine (Lantus Syringe) 25 unit QHS SQ Last administered on 02/19/21at 20:56; Start 02/19/21 at 21:00 Acetaminophen (Tylenol) 650 mg PRN Q6HRS PRN [place] MILD PAIN / TEMP > 100.3'F Last administered on 02/20/21at 03:50; Start 02/19/21 at 18:00 Potassium Acetate 50 meq/Potassium Phosphate 13.6 mmol/Magnesium Sulfate 6 meq/ Calcium Gluconate 10 meq/ Multivitamins 5 ml/Zinc/Copper/ Manganese/ Selenium 1 ml/ Total Parenteral Nutrition/Amino Acids/Dextrose 2,040 ml @ 85 mls/hr TPN CONT IV ; Start 02/20/21 at 22:00; Stop 02/21/21 at 21:59 Vitals/I & O Vital Sign - Last 24 Hours 02/19/21 02/19/21 02/19/21 02/19/21 16:13 16:14 17:24 17:27 Pulse 62 61 Resp 20 16 B/P (MAP) 140/65 (90) 151/89 (109) Pulse Ox 98 98 98 O2 Delivery Mechanical Ventilator Ventilator Ventilator Ventilator 02/19/21 02/19/21 02/19/21 02/19/21 17:57 19:00 20:00 20:00 Temp 100.2 100.2 Pulse 67 64 65 Resp 21 17 17 B/P (MAP) 161/94 (116) 138/79 (98) 133/80 (97) Pulse Ox 99 99 99 O2 Delivery Ventilator Ventilator Mechanical Ventilator Ventilator 02/19/21 02/19/21 02/19/21 02/19/21 20:32 21:00 22:00 23:00 Temp 99.0 99.0 Pulse 65 62 63 Resp 17 16 16 B/P (MAP) 141/85 (103) 151/87 (108) 136/76 (96) Pulse Ox 98 99 99 99 O2 Delivery Ventilator Ventilator Ventilator Ventilator 02/19/21 02/19/21 02/20/21 02/20/21 23:59 23:59 01:00 01:01 Temp 98.9 98.9 Pulse 62 60 Resp 23 16 B/P (MAP) 149/88 (108) 128/71 (90) Pulse Ox 99 97 99 O2 Delivery Ventilator Mechanical Ventilator Ventilator Ventilator 02/20/21 02/20/21 02/20/21 02/20/21 02:00 03:00 03:33 04:00 Temp 99.0 99.0 Pulse 63 61 62 Resp 18 18 16 B/P (MAP) 156/63 (94) 156/74 (101) 155/51 (85) Pulse Ox 97 98 99 98 O2 Delivery Ventilator Ventilator Ventilator Ventilator 02/20/21 02/20/21 02/20/21 02/20/21 04:00 05:00 05:30 05:48 Pulse 59 61 Resp 18 20 B/P (MAP) 132/79 (96) 131/76 (94) Pulse Ox 99 99 99 O2 Delivery Mechanical Ventilator Ventilator Ventilator Ventilator 02/20/21 02/20/21 02/20/21 02/20/21 07:03 07:39 07:54 08:30 Temp 99.5 99.5 Pulse 60 60 Resp 16 18 B/P (MAP) 133/75 (94) 136/79 (98) Pulse Ox 99 99 99 O2 Delivery Ventilator Mechanical Ventilator Ventilator Ventilator 02/20/21 02/20/21 02/20/21 02/20/21 09:00 10:06 10:30 11:07 Pulse 70 65 60 Resp 22 19 16 B/P (MAP) 159/87 (111) 134/73 (93) 126/66 (86) Pulse Ox 99 98 99 99 O2 Delivery Ventilator Ventilator Ventilator Ventilator 02/20/21 02/20/21 02/20/21 02/20/21 11:38 11:57 12:14 13:00 Temp 99.8 99.8 Pulse 60 61 Resp 16 17 B/P (MAP) 120/70 (87) 157/92 (113) Pulse Ox 99 99 96 O2 Delivery Mechanical Ventilator Ventilator Ventilator Ventilator 02/20/21 14:01 Pulse 69 Resp 18 B/P (MAP) 146/68 (94) Pulse Ox 97 O2 Delivery Ventilator Intake and Output 02/19/21 02/19/21 02/20/21 15:00 23:00 07:00 Intake Total 50 ml 2623 ml 1370 ml Output Total 875 ml 775 ml 775 ml Balance -825 ml 1848 ml 595 ml Justifications for Admission Other Justification LUCINDA DENNY MD Feb 20, 2021 15:43
--- NOTE | 2021-02-20 16:08 | RAD ---
EXAM: CT head without contrast INDICATION: Follow-up intracranial hemorrhage COMPARISON: CT head 02/13/2021 and 02/20/2021 TECHNIQUE: Axial CT imaging through the head without intravenous contrast. One or more of the following individualized dose reduction techniques were utilized for this examinat ion: 1. Automated exposure control 2. Adjustment of the mA and/or kV according to patient size 3. Use of iterative reconstruction technique. FINDINGS: The large parenchymal hematoma involving the right parietal occipital and temporal lobes has slightly decreased in size, now small 4.7 x 4.6 cm, previously 5.2 x 4.7 cm and has mildly decreased in densi ty. Surrounding hypoattenuation is unchanged.There is slightly decreased scattered subarachnoid blood in the left cerebral hemisphere. Blood layering in the occipital horn of the left lateral ventricle is unchanged. No new intracranial hemorrhage. There is continued effacement of the occipital horn of the right lateral ventricle. Ventricles otherw ise normal in size and configuration. Sulci are within normal limits. Basal cisterns are patent. A right parieto-occipital craniotomy and overlying surgical changes of the scalp are unchanged. There is some fluid in the right mastoid air cells. IMPRESSION: 1. Slightly decreased size and attenuation of large intraparenchymal hematoma in the right parietal o ccipital, temporal lobes. Unchanged surrounding hypoattenuation and effacement of the occipital horn of the right lateral ventricle. 2. Decrease scattered subarachnoid blood in the left cerebral hemisphere. Unchanged small amount of b lood in the left lateral ventricle. 3. No new intracranial abnormality. Electronically signed by: Holly Rajan MD (02/20/2021 4:06 PM) [id number]
--- NOTE | 2021-02-20 17:41 | CARD ---
MR#: [id number] Date of Study: 02/20/2021 Ordering Physician: WILIAN ORTEGA, Referring Physician: WILIAN ORTEGA, Tech: Noah Nagy [facility] APPROVED REPORT EXAM: Two-dimensional and M-mode echocardiogram with Doppler and color Doppler. Other Information Quality : AverageHR: 60bpm Rhythm : NSR INDICATION Elevated troponin, Hemorrhagic stroke RISK FACTORS Hypertension 2D DIMENSIONS Left Atrium(2D)4.0 (1.6-4.0cm)IVSd1.2 (0.7-1.1cm) Aortic Root(2D)3.5 (2.0-3.7cm)LVDd5.4 (3.9-5.9cm) LVOT Diameter2.4 (1.8-2.4cm)PWd1.2 (0.7-1.1cm) LVDs3.2 (2.5-4.0cm)FS (%) 39.9 % SV99.0 ml Aortic Valve AoV Peak Bob.175.0cm/sAoV VTI30.1cm AO Peak GR.12.2mmHgLVOT Peak Bob.112.6cm/s AO Mean GR.6mmHgAVA (VMAX)2.94cm2 Mitral Valve MV E Xaaqycuy70.0cm/sMV E Peak Gr.3mmHg MV DECEL [id number] A Stdooojy81.2cm/s MV E Mean Gr.1mmHgE/A Ratio0.7 Tricuspid Valve TR P. Goifqypz131ms/sTR Peak Gr.18mmHg LEFT VENTRICLE The left ventricle is normal size. There is mild concentric left ventricular hypertrophy. The left ve ntricular systolic function is normal and the ejection fraction is 55 to 60%. There is normal LV segm ental wall motion. Transmitral Doppler flow pattern is Grade I-abnormal relaxation pattern. No left v entricle thrombus noted on this study. There is no ventricular septal defect visualized. There is no left ventricular aneurysm. There is no mass noted in the left ventricle. RIGHT VENTRICLE The right ventricle is normal size. There is normal right ventricular wall thickness. The right ventr icular systolic function is normal. ATRIA The left atrium size is normal. The right atrium size is normal. The interatrial septum is intact wit h no evidence for an atrial septal defect or patent foramen ovale as noted on 2-D or Doppler imaging. AORTIC VALVE The aortic valve is normal in structure and function. Doppler and Color Flow revealed no significant aortic regurgitation. There is no significant aortic valvular stenosis. There is no aortic valvular v egetation. MITRAL VALVE The mitral valve is normal in structure and function. There is no evidence of mitral valve prolapse. There is no mitral valve stenosis. Doppler and Color-flow revealed trace mitral regurgitation. TRICUSPID VALVE The tricuspid valve is normal in structure and function. Doppler and Color Flow revealed trace to mil d tricuspid regurgitation. There is no tricuspid valve prolapse or vegetation. There is no tricuspid valve stenosis. PULMONIC VALVE The pulmonary valve is normal in structure and function. Doppler and Color Flow revealed no pulmonic valvular regurgitation. There is no pulmonic valvular stenosis. GREAT VESSELS The aortic root is normal in size. The ascending aorta is normal in size. The pulmonary artery is nor mal. IVC is mildly dilated with blunted inspiratory response. PERICARDIAL EFFUSION There is no pleural effusion. There is no evidence of significant pericardial effusion. Critical Notification Critical Value: No <Conclusion> The left ventricle is normal size. The left ventricular systolic function is normal and the ejection fraction is 55 to 60%. There is normal LV segmental wall motion. There is mild concentric left ventricular hypertrophy. Doppler and Color Flow revealed no significant aortic regurgitation. There is no significant aortic valvular stenosis. Doppler and Color-flow revealed trace mitral regurgitation. Doppler and Color Flow revealed trace to mild tricuspid regurgitation. Signed by : Wilian Ortega MD Electronically Approved : 02/20/2021 17:40:45
--- NOTE | 2021-02-20 19:00 | PDOC ---
PROGRESS NOTES Date of Service DATE: 02/20/21 TIME: 18:58 Subjective Subjective Patient seen and examined Objective Objective Vital Signs Date Time Temp Pulse Resp B/P (MAP) Pulse Ox O2 Delivery O2 Flow Rate FiO2 02/20/21 18:18 99 Ventilator 02/20/21 18:04 81 17 162/79 (106) 02/20/21 16:51 99.5 99.5 Intake and Output 02/20/21 07:00 Intake Total 4093 ml Output Total 2425 ml Balance 1668 ml Intake IV Total 4093 ml Output Urine Total 2325 ml Gastric Drainage Total 100 ml Physical Exam Abdomen: Normal bowel sounds Heart: Regular rate General: Other (Intubated) Lungs: Other (Mildly decreased breath sounds) Assessment Assessment 1. Intracranial hemorrhage status post emergent right occipital craniotomy and evacuation of intracerebral hematoma on 02/09. Patient has remained on a ventilator. He is followed by the neurosurgery service. 2. Acute respiratory failure. As noted above the patient remains on a ventilator. Imaging has shown a history of emphysema. Tracheostomy later this week. Continue present treatment as per the pulmonary service. 3. MARVIN. Resolving. Followed by renal. 4. Mildly elevated troponin at 1.135. As noted above the patient remains intubated. Rhythm is stable. Blood pressure is also stable. Echocardiogram shows normal left ventricular systolic function with an ejection fraction of 55 to 60% with trace to mild tricuspid regurgitation. 5. Hypertension. Under better control. Adjust medications as needed. Comment Review of Relevant I have reviewed the following items neela (where applicable) has been applied. Labs Laboratory Tests Test 02/18/21 21:36 02/19/21 00:00 02/19/21 00:01 02/19/21 05:30 Glucose (Fingerstick) 243 mg/dL (70-99) 247 mg/dL (70-99) Troponin I Quantitative 0.364 ng/mL (0.000-0.055) 0.465 ng/mL (0.000-0.055) Sodium Level 144 mmol/L (136-145) Potassium Level 4.3 mmol/L (3.5-5.1) Chloride Level 107 mmol/L (98-107) Carbon Dioxide Level 26 mmol/L (21-32) Anion Gap 11 (6-14) Blood Urea Nitrogen 24 mg/dL (8-26) Creatinine 1.1 mg/dL (0.7-1.3) Estimated GFR (Cockcroft-Gault) 82.6 BUN/Creatinine Ratio 22 (6-20) Glucose Level 232 mg/dL (70-99) Calcium Level 8.6 mg/dL (8.5-10.1) Phosphorus Level 4.5 mg/dL (2.6-4.7) Magnesium Level 1.9 mg/dL (1.8-2.4) Total Bilirubin 0.5 mg/dL (0.2-1.0) Aspartate Amino Transf (AST/SGOT) 74 U/L (15-37) Alanine Aminotransferase (ALT/SGPT) 157 U/L (16-63) Alkaline Phosphatase 115 U/L (46-116) Total Protein 5.9 g/dL (6.4-8.2) Albumin 2.3 g/dL (3.4-5.0) Albumin/Globulin Ratio 0.6 (1.0-1.7) Test 02/19/21 05:55 02/19/21 12:50 02/19/21 12:55 02/19/21 17:41 Glucose (Fingerstick) 218 mg/dL (70-99) 222 mg/dL (70-99) 234 mg/dL (70-99) Troponin I Quantitative 0.557 ng/mL (0.000-0.055) Test 02/19/21 20:53 02/19/21 23:46 02/20/21 05:44 02/20/21 06:15 Glucose (Fingerstick) 223 mg/dL (70-99) 202 mg/dL (70-99) 212 mg/dL (70-99) White Blood Count 10.3 x10^3/uL (4.0-11.0) Red Blood Count 3.69 x10^6/uL (4.30-5.70) Hemoglobin 11.1 g/dL (13.0-17.5) Hematocrit 33.9 % (39.0-53.0) Mean Corpuscular Volume 92 fL (79-100) Mean Corpuscular Hemoglobin 30 pg (25-35) Mean Corpuscular Hemoglobin Concent 33 g/dL (31-37) Red Cell Distribution Width 13.7 % (11.5-14.5) Platelet Count 225 x10^3/uL (140-400) Neutrophils (%) (Auto) 73 % (31-73) Lymphocytes (%) (Auto) 17 % (24-48) Monocytes (%) (Auto) 9 % (0-9) Eosinophils (%) (Auto) 1 % (0-3) Basophils (%) (Auto) 0 % (0-3) Neutrophils # (Auto) 7.5 x10^3/uL (1.8-7.7) Lymphocytes # (Auto) 1.7 x10^3/uL (1.0-4.8) Monocytes # (Auto) 0.9 x10^3/uL (0.0-1.1) Eosinophils # (Auto) 0.1 x10^3/uL (0.0-0.7) Basophils # (Auto) 0.0 x10^3/uL (0.0-0.2) Sodium Level 141 mmol/L (136-145) Potassium Level 4.2 mmol/L (3.5-5.1) Chloride Level 108 mmol/L (98-107) Carbon Dioxide Level 26 mmol/L (21-32) Anion Gap 7 (6-14) Blood Urea Nitrogen 23 mg/dL (8-26) Creatinine 1.2 mg/dL (0.7-1.3) Estimated GFR (Cockcroft-Gault) 74.7 BUN/Creatinine Ratio 19 (6-20) Glucose Level 214 mg/dL (70-99) Calcium Level 8.9 mg/dL (8.5-10.1) Phosphorus Level 4.0 mg/dL (2.6-4.7) Magnesium Level 2.1 mg/dL (1.8-2.4) Total Bilirubin 0.5 mg/dL (0.2-1.0) Aspartate Amino Transf (AST/SGOT) 60 U/L (15-37) Alanine Aminotransferase (ALT/SGPT) 117 U/L (16-63) Alkaline Phosphatase 112 U/L (46-116) Total Protein 6.4 g/dL (6.4-8.2) Albumin 2.2 g/dL (3.4-5.0) Albumin/Globulin Ratio 0.5 (1.0-1.7) Triglycerides Level 246 mg/dL (0-150) Test 02/20/21 12:36 02/20/21 17:13 Glucose (Fingerstick) 218 mg/dL (70-99) 213 mg/dL (70-99) Laboratory Tests Test 02/19/21 20:53 02/19/21 23:46 02/20/21 05:44 02/20/21 06:15 Glucose (Fingerstick) 223 mg/dL (70-99) 202 mg/dL (70-99) 212 mg/dL (70-99) White Blood Count 10.3 x10^3/uL (4.0-11.0) Red Blood Count 3.69 x10^6/uL (4.30-5.70) Hemoglobin 11.1 g/dL (13.0-17.5) Hematocrit 33.9 % (39.0-53.0) Mean Corpuscular Volume 92 fL (79-100) Mean Corpuscular Hemoglobin 30 pg (25-35) Mean Corpuscular Hemoglobin Concent 33 g/dL (31-37) Red Cell Distribution Width 13.7 % (11.5-14.5) Platelet Count 225 x10^3/uL (140-400) Neutrophils (%) (Auto) 73 % (31-73) Lymphocytes (%) (Auto) 17 % (24-48) Monocytes (%) (Auto) 9 % (0-9) Eosinophils (%) (Auto) 1 % (0-3) Basophils (%) (Auto) 0 % (0-3) Neutrophils # (Auto) 7.5 x10^3/uL (1.8-7.7) Lymphocytes # (Auto) 1.7 x10^3/uL (1.0-4.8) Monocytes # (Auto) 0.9 x10^3/uL (0.0-1.1) Eosinophils # (Auto) 0.1 x10^3/uL (0.0-0.7) Basophils # (Auto) 0.0 x10^3/uL (0.0-0.2) Sodium Level 141 mmol/L (136-145) Potassium Level 4.2 mmol/L (3.5-5.1) Chloride Level 108 mmol/L (98-107) Carbon Dioxide Level 26 mmol/L (21-32) Anion Gap 7 (6-14) Blood Urea Nitrogen 23 mg/dL (8-26) Creatinine 1.2 mg/dL (0.7-1.3) Estimated GFR (Cockcroft-Gault) 74.7 BUN/Creatinine Ratio 19 (6-20) Glucose Level 214 mg/dL (70-99) Calcium Level 8.9 mg/dL (8.5-10.1) Phosphorus Level 4.0 mg/dL (2.6-4.7) Magnesium Level 2.1 mg/dL (1.8-2.4) Total Bilirubin 0.5 mg/dL (0.2-1.0) Aspartate Amino Transf (AST/SGOT) 60 U/L (15-37) Alanine Aminotransferase (ALT/SGPT) 117 U/L (16-63) Alkaline Phosphatase 112 U/L (46-116) Total Protein 6.4 g/dL (6.4-8.2) Albumin 2.2 g/dL (3.4-5.0) Albumin/Globulin Ratio 0.5 (1.0-1.7) Triglycerides Level 246 mg/dL (0-150) Test 02/20/21 12:36 02/20/21 17:13 Glucose (Fingerstick) 218 mg/dL (70-99) 213 mg/dL (70-99) Microbiology 02/11/21 Blood Culture - Final, Complete NO GROWTH AFTER 5 DAYS 02/11/21 Gram Stain Evaluation - Final, Complete 02/11/21 Respiratory Culture - Final, Complete Medications Current Medications Nicardipine HCl 50 mg/Sodium Chloride 250 ml @ 12.5 mls/hr CONT PRN IV SEE I/O RECORD Last administered on 02/16/21at 14:00; Start 02/09/21 at 06:15 Labetalol HCl (Normodyne Iv Push) 10 mg PRN Q2HR PRN IVP HYPERTENSION- 1ST CHOICE Last administered on 02/18/21at 15:06; Start 02/09/21 at 06:15 Lorazepam (Ativan Inj) 2 mg 1X ONCE IVP Last administered on 02/09/21at 10:54; Start 02/09/21 at 10:45; Stop 02/09/21 at 10:46; Status DC Lorazepam (Ativan Inj) 2 mg 1X ONCE IVP Last administered on 02/09/21at 11:00; Start 02/09/21 at 11:00; Stop 02/09/21 at 11:01; Status DC Fentanyl Citrate (Fentanyl 2ml Vial) 25 mcg PRN Q2HR PRN IVP MODERATE TO SEVERE PAIN Last administered on 02/09/21at 13:37; Start 02/09/21 at 13:30; Stop 02/18/21 at 22:53; Status DC Info (Review Meds) 1 ea PRN 1X PRN MC SEE COMMENTS; Start 02/09/21 at 15:00 Acetaminophen (Tylenol Supp) 650 mg PRN Q6HRS PRN [place] FEVER > 100.5'F or 38'C; Start 02/09/21 at 15:00; Stop 02/11/21 at 21:12; Status DC Albuterol Sulfate (Ventolin Neb Soln) 2.5 mg PRN Q4HRS PRN NEB SHORTNESS OF BREATH; Start 02/09/21 at 15:15 Iohexol (Omnipaque 350 Mg/ml) 75 ml 1X ONCE IV Last administered on 02/09/21at 15:52; Start 02/09/21 at 15:30; Stop 02/09/21 at 15:35; Status DC Iohexol (Omnipaque 350 Mg/ml) 100 ml STK-MED ONCE .ROUTE ; Start 02/09/21 at 15:26; Stop 02/09/21 at 15:27; Status DC Info (CONTRAST GIVEN -- Rx MONITORING) 1 each PRN DAILY PRN MC SEE COMMENTS; Start 02/09/21 at 15:45; Stop 02/11/21 at 15:44; Status DC Propofol 100 ml @ As Directed STK-MED ONCE IV ; Start 02/09/21 at 15:51; Stop 02/09/21 at 15:51; Status DC Rocuronium [place] (Zemuron) 50 mg STK-MED ONCE .ROUTE ; Start 02/09/21 at 15:51; Stop 02/09/21 at 15:51; Status DC Lidocaine HCl (Lidocaine HCl 2% Abboject) 100 mg STK-MED ONCE .ROUTE ; Start 02/09/21 at 15:52; Stop 02/09/21 at 15:53; Status DC Propofol 100 ml @ 3.507 mls/ hr CONT PRN IV PER PROTOCOL Last administered on 02/20/21at 16:51; Start 02/09/21 at 16:15 Lidocaine HCl (Lidocaine HCl 2% Abboject) 100 mg 1X ONCE IV Last administered on 02/09/21 16:17; Start 02/09/21 at 16:15; Stop 02/09/21 at 16:17; Status DC Rocuronium [place] (Zemuron) 50 mg 1X ONCE IV Last administered on 02/09/21 16:17; Start 02/09/21 at 16:15; Stop 02/09/21 at 16:17; Status DC Rocuronium [place] (Zemuron) 100 mg STK-MED ONCE .ROUTE ; Start 02/09/21 at 16:31; Stop 02/09/21 at 16:32; Status DC Gelatin (Gelfoam Size 100) 1 each STK-MED ONCE .ROUTE Last administered on 02/09/21 17:49; Start 02/09/21 at 16:33; Stop 02/09/21 at 16:33; Status DC Bupivacaine HCl/ Epinephrine Bitart (Sensorcain-Epi 0.5%-1:818068 Mpf) 30 ml STK-MED ONCE .ROUTE Last administered on 02/09/21 17:49; Start 02/09/21 at 16:33; Stop 02/09/21 at 16:33; Status DC Cellulose (Surgicel Hemostat 4x8) 1 each STK-MED ONCE .ROUTE Last administered on 02/09/21 18:38; Start 02/09/21 at 16:33; Stop 02/09/21 at 16:33; Status DC Thrombin 20,000 unit STK-MED ONCE TP Last administered on 02/09/21 17:49; Start 02/09/21 at 16:33; Stop 02/09/21 at 16:33; Status DC Fentanyl Citrate (Fentanyl 2ml Vial) 75 mcg 1X ONCE IVP Last administered on 02/09/21 16:45; Start 02/09/21 at 16:45; Stop 02/09/21 at 16:47; Status DC Propofol (Diprivan) 200 mg 1X ONCE IV ; Start 02/09/21 at 17:15; Stop 02/09/21 at 17:16; Status DC Lidocaine HCl (Lidocaine HCl 2% Abboject) 100 mg 1X ONCE IV ; Start 02/09/21 at 17:15; Stop 02/09/21 at 17:16; Status DC Rocuronium [place] (Zemuron) 50 mg 1X ONCE IV ; Start 02/09/21 at 17:15; Stop 02/09/21 at 17:16; Status DC Propofol 100 ml @ 0 mls/hr CONT PRN PRN IV SEDATION; Start 02/09/21 at 17:15; Stop 02/10/21 at 05:14; Status DC Cefazolin Sodium (Ancef) 1 gm STK-MED ONCE IVP ; Start 02/09/21 at 17:28; Stop 02/09/21 at 17:28; Status DC Fentanyl Citrate (Fentanyl 2ml Vial) 100 mcg STK-MED ONCE .ROUTE ; Start 02/09/21 at 17:43; Stop 02/09/21 at 17:43; Status DC Rocuronium [place] (Zemuron) 100 mg STK-MED ONCE .ROUTE ; Start 02/09/21 at 17:58; Stop 02/09/21 at 17:59; Status DC Vecuronium [place] (Norcuron Bolus) 10 mg STK-MED ONCE IV ; Start 02/09/21 at 18:49; Stop 02/09/21 at 18:50; Status DC Sodium Chloride (SODIUM CHLORIDE 20ml) 20 ml STK-MED ONCE IJ ; Start 02/09/21 at 18:50; Stop 02/09/21 at 18:50; Status DC Sevoflurane (Ultane) 90 ml STK-MED ONCE IH ; Start 02/09/21 at 19:20; Stop 02/09/21 at 19:21; Status DC Fentanyl Citrate 30 ml @ 2.5 mls/hr CONT PRN IV SEE PROTOCOL Last administered on 02/09/21at 23:40; Start 02/09/21 at 23:15; Stop 02/10/21 at 04:43; Status DC Fentanyl Citrate 55 ml @ 0 mls/hr CONT PRN IV SEE I/O Last administered on 02/18/21at 23:56; Start 02/10/21 at 05:00 Potassium Chloride/Dextrose/ Sod Cl 1,000 ml @ 80 mls/hr [id number] IV ; Start 02/10/21 at 09:00; Stop 02/10/21 at 13:21; Status DC Pantoprazole Sodium (PROTONIX VIAL for IV PUSH) 40 mg DAILYAC IVP Last administered on 02/20/21at 07:47; Start 02/10/21 at 09:00 Lidocaine HCl (Buffered Lidocaine 1%) 3 ml STK-MED ONCE .ROUTE ; Start 02/10/21 at 13:18; Stop 02/10/21 at 13:18; Status DC Sodium Chloride 1,000 ml @ 80 mls/hr [id number] IV Last administered on 02/12/21at 03:00; Start 02/10/21 at 13:30; Stop 02/12/21 at 15:36; Status DC Lidocaine HCl (Buffered Lidocaine 1%) 6 ml 1X ONCE INJ Last administered on 02/10/21at 13:57; Start 02/10/21 at 13:45; Stop 02/10/21 at 13:46; Status DC Potassium Chloride/Water 100 ml @ 100 mls/hr Q1H IV Last administered on 02/11/21at 10:07; Start 02/11/21 at 08:00; Stop 02/11/21 at 09:59; Status DC Piperacillin Sod/ Tazobactam Sod 3.375 gm/Sodium Chloride 50 ml @ 100 mls/hr Q 6HRS IV Last administered on 02/20/21at 17:15; Start 02/11/21 at 09:00 Info (Tpn Per Pharmacy) 1 each PRN DAILY PRN MC SEE COMMENTS Last administered on 02/20/21at 12:48; Start 02/11/21 at 11:15 Sodium Chloride 90 meq/Potassium Chloride 50 meq/ Potassium Phosphate 13.6 mmol/Magnesium Sulfate 10 meq/ Calcium Gluconate 10 meq/ Multivitamins 5 ml/Zinc/Copper/ Manganese/ Selenium 1 ml/ Total Parenteral Nutrition/Amino Acids/Dextrose 1,512 ml @ 63 mls/hr TPN CONT IV Last administered on 02/11/21at 22:32; Start 02/11/21 at 22:00; Stop 02/12/21 at 21:59; Status DC Furosemide (Lasix) 20 mg 1X ONCE IVP Last administered on 02/11/21at 15:11; Start 02/11/21 at 15:30; Stop 02/11/21 at 15:31; Status DC Furosemide (Lasix) 20 mg 1X ONCE IVP Last administered on 02/11/21at 17:00; Start 02/11/21 at 17:00; Stop 02/11/21 at 17:01; Status DC Midazolam HCl 100 ml @ 1 mls/hr CONT PRN IV SEE PROTOCOL Last administered on 02/13/21at 20:58; Start 02/11/21 at 19:30 Acetaminophen (Tylenol Supp) 650 mg PRN Q6HRS PRN [place] MILD PAIN / TEMP > 100.3'F; Start 02/11/21 at 21:15 Sodium Chloride 80 meq/Potassium Chloride 50 meq/ Potassium Phosphate 13.6 mmol/Magnesium Sulfate 6 meq/ Calcium Gluconate 10 meq/ Multivitamins 5 ml/Zinc/Copper/ Manganese/ Selenium 1 ml/ Total Parenteral Nutrition/Amino Acids/Dextrose 1,512 ml @ 63 mls/hr TPN CONT IV Last administered on 02/12/21at 22:09; Start 02/12/21 at 22:00; Stop 02/13/21 at 21:59; Status DC Furosemide (Lasix) 40 mg 1X ONCE IVP Last administered on 02/12/21at 12:44; Start 02/12/21 at 12:30; Stop 02/12/21 at 12:31; Status DC Insulin Human Lispro (HumaLOG) 0-5 UNITS Q6HRS SQ Last administered on 02/20/21at 17:14; Start 02/12/21 at 12:00 Dextrose (Dextrose 50%-Water Syringe) 12.5 gm PRN Q15MIN PRN IV SEE COMMENTS; Start 02/12/21 at 12:15 Clonidine HCl (Catapres Tts-3) 1 patch WEEKLY TD Last administered on 02/20/21at 07:50; Start 02/13/21 at 11:00 Sodium Chloride 80 meq/Potassium Chloride 50 meq/ Potassium Phosphate 13.6 mmol/Magnesium Sulfate 6 meq/ Calcium Gluconate 10 meq/ Multivitamins 5 ml/Zinc/Copper/ Manganese/ Selenium 1 ml/ Total Parenteral Nutrition/Amino Acids/Dextrose 1,512 ml @ 63 mls/hr TPN CONT IV Last administered on 02/13/21at 21:42; Start 02/13/21 at 22:00; Stop 02/14/21 at 21:59; Status DC Potassium Acetate 50 meq/Potassium Phosphate 13.6 mmol/Magnesium Sulfate 6 meq/ Calcium Gluconate 10 meq/ Multivitamins 5 ml/Zinc/Copper/ Manganese/ Selenium 1 ml/ Total Parenteral Nutrition/Amino Acids/Dextrose 1,512 ml @ 63 mls/hr TPN CONT IV Last administered on 02/14/21at 21:59; Start 02/14/21 at 22:00; Stop 02/15/21 at 21:59; Status DC Insulin Glargine (Lantus Syringe) 10 unit QHS SQ Last administered on 02/15/21at 22:11; Start 02/14/21 at 21:00; Stop 02/16/21 at 12:42; Status DC Hydralazine HCl (Apresoline Inj) 10 mg PRN Q4HRS PRN IVP ELEVATED BP, SEE COMMENTS Last administered on 02/18/21at 12:03; Start 02/14/21 at 16:00 Potassium Acetate 50 meq/Potassium Phosphate 13.6 mmol/Magnesium Sulfate 6 meq/ Calcium Gluconate 10 meq/ Multivitamins 5 ml/Zinc/Copper/ Manganese/ Selenium 1 ml/ Total Parenteral Nutrition/Amino Acids/Dextrose 1,512 ml @ 63 mls/hr TPN CONT IV Last administered on 02/15/21at 22:13; Start 02/15/21 at 22:00; Stop 02/16/21 at 21:59; Status DC Dexmedetomidine HCl 400 mcg/ Sodium Chloride 100 ml @ 0 mls/hr CONT PRN IV PER PROTOCOL Last administered on 02/20/21at 18:53; Start 02/15/21 at 14:15 Sodium Chloride 500 ml @ 500 mls/hr 1X PRN PRN IV SEE COMMENTS; Start 02/15/21 at 14:15 Atropine Sulfate (ATROPINE 0.5mg SYRINGE) 0.5 mg PRN Q5MIN PRN IV SEE COMMENTS; Start 02/15/21 at 14:15 Potassium Acetate 50 meq/Potassium Phosphate 13.6 mmol/Magnesium Sulfate 6 meq/ Calcium Gluconate 10 meq/ Multivitamins 5 ml/Zinc/Copper/ Manganese/ Selenium 1 ml/ Total Parenteral Nutrition/Amino Acids/Dextrose 1,512 ml @ 63 mls/hr TPN CONT IV Last administered on 02/16/21at 22:59; Start 02/16/21 at 22:00; Stop 02/17/21 at 21:59; Status DC Insulin Glargine (Lantus Syringe) 14 unit QHS SQ Last administered on 02/16/21at 21:14; Start 02/16/21 at 21:00; Stop 02/17/21 at 14:15; Status DC Potassium Acetate 50 meq/Potassium Phosphate 13.6 mmol/Magnesium Sulfate 6 meq/ Calcium Gluconate 10 meq/ Multivitamins 5 ml/Zinc/Copper/ Manganese/ Selenium 1 ml/ Total Parenteral Nutrition/Amino Acids/Dextrose 1,512 ml @ 63 mls/hr TPN CONT IV Last administered on 02/17/21at 20:48; Start 02/17/21 at 22:00; Stop 02/18/21 at 21:59; Status DC Dextrose 1,000 ml @ 75 mls/hr [id number] IV Last administered on 02/18/21at 13:51; Start 02/17/21 at 10:30; Stop 02/19/21 at 12:57; Status DC Insulin Glargine (Lantus Syringe) 18 unit QHS SQ Last administered on 02/17/21at 20:46; Start 02/17/21 at 21:00; Stop 02/18/21 at 11:56; Status DC Insulin Glargine (Lantus Syringe) 22 unit QHS SQ Last administered on 02/18/21at 21:00; Start 02/18/21 at 21:00; Stop 02/19/21 at 14:08; Status DC Potassium Acetate 50 meq/Potassium Phosphate 13.6 mmol/Magnesium Sulfate 6 meq/ Calcium Gluconate 10 meq/ Multivitamins 5 ml/Zinc/Copper/ Manganese/ Selenium 1 ml/ Total Parenteral Nutrition/Amino Acids/Dextrose 1,512 ml @ 63 mls/hr TPN CONT IV Last administered on 02/18/21at 21:43; Start 02/18/21 at 22:00; Stop 02/19/21 at 21:59; Status DC Potassium Acetate 50 meq/Potassium Phosphate 13.6 mmol/Magnesium Sulfate 6 meq/ Calcium Gluconate 10 meq/ Multivitamins 5 ml/Zinc/Copper/ Manganese/ Selenium 1 ml/ Total Parenteral Nutrition/Amino Acids/Dextrose 2,040 ml @ 85 mls/hr TPN CONT IV Last administered on 02/19/21at 20:56; Start 02/19/21 at 22:00; Stop 02/20/21 at 21:59 Insulin Glargine (Lantus Syringe) 25 unit QHS SQ Last administered on 02/19/21at 20:56; Start 02/19/21 at 21:00 Acetaminophen (Tylenol) 650 mg PRN Q6HRS PRN PEG MILD PAIN / TEMP > 100.3'F Last administered on 02/20/21at 03:50; Start 02/19/21 at 18:00 Potassium Acetate 50 meq/Potassium Phosphate 13.6 mmol/Magnesium Sulfate 6 meq/ Calcium Gluconate 10 meq/ Multivitamins 5 ml/Zinc/Copper/ Manganese/ Selenium 1 ml/ Total Parenteral Nutrition/Amino Acids/Dextrose 2,040 ml @ 85 mls/hr TPN CONT IV ; Start 02/20/21 at 22:00; Stop 02/21/21 at 21:59 Vitals/I & O Vital Sign - Last 24 Hours 02/19/21 02/19/21 02/19/21 02/19/21 19:00 20:00 20:00 20:32 Pulse 64 65 Resp 17 17 B/P (MAP) 138/79 (98) 133/80 (97) Pulse Ox 99 99 98 O2 Delivery Ventilator Mechanical Ventilator Ventilator Ventilator 02/19/21 02/19/21 02/19/21 02/19/21 21:00 22:00 23:00 23:59 Temp 99.0 98.9 99.0 98.9 Pulse 65 62 63 62 Resp 17 16 16 23 B/P (MAP) 141/85 (103) 151/87 (108) 136/76 (96) 149/88 (108) Pulse Ox 99 99 99 99 O2 Delivery Ventilator Ventilator Ventilator Ventilator 02/19/21 02/20/21 02/20/21 02/20/21 23:59 01:00 01:01 02:00 Pulse 60 63 Resp 16 18 B/P (MAP) 128/71 (90) 156/63 (94) Pulse Ox 97 99 97 O2 Delivery Mechanical Ventilator Ventilator Ventilator Ventilator 02/20/21 02/20/21 02/20/21 02/20/21 03:00 03:33 04:00 04:00 Temp 99.0 99.0 Pulse 61 62 Resp 18 16 B/P (MAP) 156/74 (101) 155/51 (85) Pulse Ox 98 99 98 O2 Delivery Ventilator Ventilator Ventilator Mechanical Ventilator 02/20/21 02/20/21 02/20/21 02/20/21 05:00 05:30 05:48 07:03 Pulse 59 61 60 Resp 18 20 16 B/P (MAP) 132/79 (96) 131/76 (94) 133/75 (94) Pulse Ox 99 99 99 99 O2 Delivery Ventilator Ventilator Ventilator Ventilator 02/20/21 02/20/21 02/20/21 02/20/21 07:39 07:54 08:30 09:00 Temp 99.5 99.5 Pulse 60 70 Resp 18 22 B/P (MAP) 136/79 (98) 159/87 (111) Pulse Ox 99 99 99 O2 Delivery Mechanical Ventilator Ventilator Ventilator Ventilator 02/20/21 02/20/21 02/20/21 02/20/21 10:06 10:30 11:07 11:38 Pulse 65 60 Resp 19 16 B/P (MAP) 134/73 (93) 126/66 (86) Pulse Ox 98 99 99 O2 Delivery Ventilator Ventilator Ventilator Mechanical Ventilator 02/20/21 02/20/21 02/20/21 02/20/21 11:57 12:14 13:00 14:01 Temp 99.8 99.8 Pulse 60 61 69 Resp 16 17 18 B/P (MAP) 120/70 (87) 157/92 (113) 146/68 (94) Pulse Ox 99 99 96 97 O2 Delivery Ventilator Ventilator Ventilator Ventilator 02/20/21 02/20/21 02/20/21 02/20/21 15:00 15:49 16:02 16:08 Pulse 70 81 Resp 16 17 B/P (MAP) 129/73 (91) 171/89 (116) Pulse Ox 98 100 100 O2 Delivery Ventilator Mechanical Ventilator Ventilator Ventilator 02/20/21 02/20/21 02/20/21 16:51 18:04 18:18 Temp 99.5 99.5 Pulse 65 81 Resp 17 17 B/P (MAP) 165/101 (122) 162/79 (106) Pulse Ox 100 99 99 O2 Delivery Ventilator Ventilator Ventilator Intake and Output 02/19/21 02/19/21 02/20/21 15:00 23:00 07:00 Intake Total 50 ml 2623 ml 1420 ml Output Total 875 ml 775 ml 775 ml Balance -825 ml 1848 ml 645 ml Justifications for Admission Other Justification BOB WEST MD Feb 20, 2021 19:00
[2021-02-20] MEDS ORDERED: TOTAL PARENTERAL NUTRITION IV SCH (22:00)
[2021-02-20] MEDS ORDERED: AMINO ACID IV SCH (22:00)
[2021-02-20] MEDS ORDERED: [UNRECOGNIZED DRUG - OTHER] IV SCH (22:00)
[2021-02-20] MEDS ORDERED: DEXTROSE 70% IV SCH (22:00)
[2021-02-20] MEDS: INSULIN GLARGINE SYRINGE. SQ SCH (22:11)
[2021-02-21] VITALS (30 sets, daily range): BP systolic 119–169; BP diastolic 70–92
[2021-02-21] MEDS: PIPERACILLIN/TAZOBACTAM 3.375 GM in IV NORMAL SALINE 50ML 50 ML IV SCH ×4 (00:44→17:51)
[2021-02-21] MEDS: INSULIN LISPRO 300 UNITS/3 ML VIAL. SQ SCH ×4 (00:46→17:50)
[2021-02-21] MEDS: fentaNYL HIGH DOSE PCA 55 ML IV PRN (00:48)
[2021-02-21] MEDS: PROPOFOL 100 ML IV PRN ×6 (00:57→21:23)
[2021-02-21] MEDS: DEXMEDETOMIDINE 400 MCG in IV NORMAL SALINE 100ML 96 ML IV PRN ×4 (03:10→17:51)
--- NOTE | 2021-02-21 05:15 | RAD ---
XR CHEST 1V INDICATION: Reason: fever 113 / Spl. Instructions: / History: . COMPARISON STUDY: 02/18/2021. FINDINGS: Life Support Devices: Stable endotracheal tube, enteric tube, right IJ central venous catheter. Lungs: Normal lung volume. Improving bibasilar opacities. Right apical bullous disease. Pleura: No pleural effusion or pneumothorax. Heart and Mediastinum: Stable cardiomediastinal silhouette and great vessels. IMPRESSION: 1. Stable life support devices. 2. Improving bibasilar opacities.. Electronically signed by: Edilson Mancini MD (02/21/2021 5:13 AM) [facility]
[2021-02-21 06:11] LABS: BASO % 1 % (0-3); EOS # 0.2 x10^3/uL (0.0-0.7); EOS % 2 % (0-3); HEMATOCRIT 32.8 % (39.0-53.0); HEMOGLOBIN 10.9 g/dL (13.0-17.5); LYMPH # 1.4 x10^3/uL (1.0-4.8); LYMPH % 15 % (24-48); MEAN CORPUSCULAR HEMOGLOBIN 30 pg (25-35); MEAN CORPUSCULAR HGB CONC 33 g/dL (31-37); MEAN CORPUSCULAR VOLUME 90 fL (79-100); MONO # 0.7 x10^3/uL (0.0-1.1); MONO % 8 % (0-9); NEUT # 7.6 x10^3/uL (1.8-7.7); NEUT % 76 % (31-73); PLATELET COUNT 210 x10^3/uL (140-400); RED BLOOD COUNT 3.62 x10^6/uL (4.30-5.70); RED CELL DISTRIBUTION WIDTH 13.7 % (11.5-14.5)
[2021-02-21] MEDS: PANTOPRAZOLE IV PUSH 40 MG VIAL. IVP SCH (06:14)
[2021-02-21 06:27] LABS: CALCIUM 8.5 mg/dL (8.5-10.1); CREATININE 0.9 mg/dL (0.7-1.3); GFR 104.2; MAGNESIUM 1.8 mg/dL (1.8-2.4); PHOSPHORUS 3.9 mg/dL (2.6-4.7); POTASSIUM 4.3 mmol/L (3.5-5.1)
--- NOTE | 2021-02-21 07:48 | PDOC ---
Infectious Disease Note Subjective: Subjective Pt remains intubated ,sedated T-max 99.6 Discussed with nursing staff Vital Signs: Vital Signs Vital Signs Date Time Temp Pulse Resp B/P (MAP) Pulse Ox O2 Delivery O2 Flow Rate FiO2 02/21/21 06:00 64 16 139/79 (99) 99 Ventilator 02/21/21 04:00 99.6 99.6 Physical Exam: PHYSICAL EXAM GENERAL: Sedated, orally intubated gentleman, HEENT: ETT/OGT + NECK: Rt IJ clean LUNGS: Decreased breath sound at bases HEART: S1, S2 bradycardia ABDOMEN: Soft, nontender, no organomegaly. EXTREMITIES: + less edema, no cyanosis. SKIN:no gen rash NEUROLOGIC: unable to assess Medications: Inpatient Meds: Medications reviewed. Labs: Lab Laboratory Tests Test 02/20/21 12:36 02/20/21 17:13 02/21/21 00:19 02/21/21 06:00 Glucose (Fingerstick) 218 mg/dL (70-99) 213 mg/dL (70-99) 193 mg/dL (70-99) White Blood Count 10.0 x10^3/uL (4.0-11.0) Red Blood Count 3.62 x10^6/uL (4.30-5.70) Hemoglobin 10.9 g/dL (13.0-17.5) Hematocrit 32.8 % (39.0-53.0) Mean Corpuscular Volume 90 fL (79-100) Mean Corpuscular Hemoglobin 30 pg (25-35) Mean Corpuscular Hemoglobin Concent 33 g/dL (31-37) Red Cell Distribution Width 13.7 % (11.5-14.5) Platelet Count 210 x10^3/uL (140-400) Neutrophils (%) (Auto) 76 % (31-73) Lymphocytes (%) (Auto) 15 % (24-48) Monocytes (%) (Auto) 8 % (0-9) Eosinophils (%) (Auto) 2 % (0-3) Basophils (%) (Auto) 1 % (0-3) Neutrophils # (Auto) 7.6 x10^3/uL (1.8-7.7) Lymphocytes # (Auto) 1.4 x10^3/uL (1.0-4.8) Monocytes # (Auto) 0.7 x10^3/uL (0.0-1.1) Eosinophils # (Auto) 0.2 x10^3/uL (0.0-0.7) Basophils # (Auto) 0.0 x10^3/uL (0.0-0.2) Sodium Level 142 mmol/L (136-145) Potassium Level 4.3 mmol/L (3.5-5.1) Chloride Level 108 mmol/L (98-107) Carbon Dioxide Level 27 mmol/L (21-32) Anion Gap 7 (6-14) Blood Urea Nitrogen 20 mg/dL (8-26) Creatinine 0.9 mg/dL (0.7-1.3) Estimated GFR (Cockcroft-Gault) 104.2 Glucose Level 213 mg/dL (70-99) Calcium Level 8.5 mg/dL (8.5-10.1) Phosphorus Level 3.9 mg/dL (2.6-4.7) Magnesium Level 1.8 mg/dL (1.8-2.4) Test 02/21/21 06:03 Glucose (Fingerstick) 224 mg/dL (70-99) Objective: Assessment: 1. Fever. 2. Acute hypoxic respiratory failure status post intubation suspected aspiration.sputum cultures NRF 3. Intracranial bleed with mass effect, status post craniotomy and hematoma evacuation. 4. Encephalopathy 5. Respiratory failure. 6. Hypertension. 7. Chronic obstructive pulmonary disease. 8. MARVIN improved U/S BUE to neg for DVT Plan: Plan of Care cont [facility] General surgery consulted for trach Monitor labs and cults cont supportive care Discussed with nursing staff RAMU DELGADO MD Feb 21, 2021 07:48
--- NOTE | 2021-02-21 08:19 | PDOC ---
[employer] PROGRESS NOTE Date of Service DOS: DATE: 02/21/21 TIME: 08:15 Chief Complaint Chief Complaint IMPRESSION Dizziness Large right temporo-occipital intraparenchymal bleed, most likely lobar hemorrhage from hypertension, consider venous sinus thrombosis, , aneurysmal bleed, Had craniotomy 02/09 evening Suspect aspiration, respiratory failure, hypertension, chronic obstructive pulmonary disease, improving acute kidney injury MORBID OBESITY Severe malnutrition History of Present Illness History of Present Illness 02/21/2021: Patient remains intubated in ICU, FiO2 40%, PEEP 5. Afebrile. POD #12, s/p right occipital craniotomy with evacuation of intracerebral hematoma (02/09/21). Chest x-ray today shows improving bibasilar opacities. Continue Zosyn, per ID. Critical care time 30 minutes spent reviewing charts, reviewing labs, reviewing imaging, discussion with RN. 02/20/2021: POD #11 Right occipital craniotomy with evacuation of intracerebral hematoma (02/09/21). Remains sedated on ventilator, FiO2 40%, PEEP 5. Chest x- ray from 02/18 62 showed unchanged bibasilar opacities; recommending follow-up to ensure resolution, particularly of focal opacities in the right lung base. Continue Zosyn. Continue supportive care. Critical care time 30 minutes spent reviewing charts, reviewing labs, reviewing imaging, discussion with RN. 02/19/2021 POD #11 Right occipital craniotomy with evacuation of intracerebral hematoma sedated on vent Patient seen and examined at bedside Continue antibiotics per infectious disease Weaning ventilator and sedation as tolerated extubation in the next few days Plan of care discussed with bedside nurse Expected interval evolution of a right posterior temporal/occipital intraparenchymal hematoma status post decompressive craniotomy Large right temporo-occipital intraparenchymal bleed, most likely lobar hemorrhage from hypertension, consider venous sinus thrombosis, less likely in this location, aneurysmal bleed, head trauma (also unlikely). craniotomy 7/ evening Suspect of aspiration, respiratory failure, hypertension, chronic obstructive pulmonary disease, improving acute kidney injury cont Zosyn glucose uncontrolled add Lantus 22 UNITS SQ HS elevated troponin suspect stress induced ischemia 36 MIN CC TIME 02/18/2021 POD #10 Right occipital craniotomy with evacuation of intracerebral hematoma sedated on vent Patient seen and examined at bedside Continue antibiotics per infectious disease Weaning ventilator and sedation as tolerated extubation in the next few days Plan of care discussed with bedside nurse Expected interval evolution of a right posterior temporal/occipital intraparenchymal hematoma status post decompressive craniotomy Large right temporo-occipital intraparenchymal bleed, most likely lobar hemorrhage from hypertension, consider venous sinus thrombosis, less likely in this location, aneurysmal bleed, head trauma (also unlikely). Had craniotomy 7/ evening Suspect of aspiration, respiratory failure, hypertension, chronic obstructive pu lmonary disease, improving acute kidney injury cont Zosyn glucose uncontrolled add Lantus 22 UNITS SQ HS 34 MIN CC TIME 02/17/2021 POD #8 Right occipital craniotomy with evacuation of intracerebral hematoma sedated on vent Patient seen and examined at bedside Good response to IV Lasix Continue antibiotics per infectious disease Weaning ventilator and sedation as tolerated extubation in the next few days Plan of care discussed with bedside nurse Expected interval evolution of a right posterior temporal/occipital intraparenchymal hematoma status post decompressive craniotomy Large right temporo-occipital intraparenchymal bleed, most likely lobar hemorrhage from hypertension, consider venous sinus thrombosis, less likely in this location, aneurysmal bleed, head trauma (also unlikely). Had craniotomy 02/09 evening Suspect of aspiration, respiratory failure, hypertension, chronic obstructive pulmonary disease, improving acute kidney injury cont Zosyn glucose uncontrolled add Lantus 18 UNITS SQ HS 33 MIN CC TIME 02/16/2021 POD #7 Right occipital craniotomy with evacuation of intracerebral hematoma sedated on vent Patient seen and examined at bedside Good response to IV Lasix Continue antibiotics per infectious disease Weaning ventilator and sedation as tolerated extubation in the next few days Plan of care discussed with bedside nurse Expected interval evolution of a right posterior temporal/occipital intraparenchymal hematoma status post decompressive craniotomy Large right temporo-occipital intraparenchymal bleed, most likely lobar hemorrhage from hypertension, consider venous sinus thrombosis, less likely in this location, aneurysmal bleed, head trauma (also unlikely). Had craniotomy 02/09 evening Suspect of aspiration, respiratory failure, hypertension, chronic obstructive pulmonary disease, improving acute kidney injury cont Zosyn glucose uncontrolled add Lantus 14 UNITS SQ HS 35 MIN CC TIME 02/15/2021 POD #6 Right occipital craniotomy with evacuation of intracerebral hematoma sedated on vent Patient seen and examined at bedside Good response to IV Lasix Continue antibiotics per infectious disease Weaning ventilator and sedation as tolerated Hopeful extubation in the next few days Plan of care discussed with bedside nurse Expected interval evolution of a right posterior temporal/occipital intraparenchymal hematoma status post decompressive craniotomy Large right temporo-occipital intraparenchymal bleed, most likely lobar hemorrhage from hypertension, consider venous sinus thrombosis, less likely in this location, aneurysmal bleed, head trauma (also unlikely). Had craniotomy 02/09 evening Suspect of aspiration, respiratory failure, hypertension, chronic obstructive pulmonary disease, improving acute kidney injury cont Zosyn glucose uncontrolled add Lantus 35 MIN CC TIME 02/14/2021 POD #5 Right occipital craniotomy with evacuation of intracerebral hematoma sedated on vent Patient seen and examined at bedside Good response to IV Lasix Continue antibiotics per infectious disease Weaning ventilator and sedation as tolerated Hopeful extubation in the next few days Plan of care discussed with bedside nurse Expected interval evolution of a right posterior temporal/occipital intraparenchymal hematoma status post decompressive craniotomy Large right temporo-occipital intraparenchymal bleed, most likely lobar hemorrhage from hypertension, consider venous sinus thrombosis, less likely in this location, aneurysmal bleed, head trauma (also unlikely). Had craniotomy 02/09 evening Suspect of aspiration, respiratory failure, hypertension, chronic obstructive pulmonary disease, improving acute kidney injury cont Zosyn glucose uncontrolled add Lantus 35 MIN CC TIME 02/13/2021 POD #4 Right occipital craniotomy with evacuation of intracerebral hematoma sedated on vent Patient seen and examined at bedside Good response to IV Lasix Continue antibiotics per infectious disease Weaning ventilator and sedation as tolerated Hopeful extubation in the next few days Plan of care discussed with bedside nurse Expected interval evolution of a right posterior temporal/occipital intraparenchymal hematoma status post decompressive craniotomy Large right temporo-occipital intraparenchymal bleed, most likely lobar hemorrhage from hypertension, consider venous sinus thrombosis, less likely in this location, aneurysmal bleed, head trauma (also unlikely). Had craniotomy 02/09 evening Suspect of aspiration, respiratory failure, hypertension, chronic obstructive pulmonary disease, improving acute kidney injury cont Zosyn 35 MIN CC TIME 02/12/2021 Patient seen and examined at bedside Remains intubated and sedated Good response to IV Lasix yesterday had nearly 3 L out; will diurese again today Continue antibiotics per infectious disease Weaning ventilator and sedation as tolerated Hopeful extubation in the next few days Plan of care discussed with bedside nurse 02/11/2021 Patient seen and examined at bedside No major clinical changes overnight however this morning patient has largely increased amount of secretions Chest x-ray concerning for possible pneumonia, will consult ID who recommended starting Zosyn Otherwise he remains intubated and sedated We will follow subspecialist input Plan discussed with bedside RN 02/10/2021 Patient seen and examined at bedside Underwent craniotomy yesterday due to unresponsiveness in the late afternoon; was also intubated Continues to have a poor neurologic status Neurology and neurosurgery following Discussed plan of care with bedside nurse Patient is a 61-year-old male transferred for to the ICU overnight due to hypertensive emergency and intracranial hemorrhage. Patient's mother at bedside provides most the history. She reports that patient had been in his usual state of health until yesterday morning when he reported feeling tired and having a headache. Patient mother reports he normally gets up early and goes outside however this was not the case yesterday. With this headache he took BC powder and went back to bed. Patient's mother reports that he was in and out of bed throughout most of the afternoon. Says patient did not eat anything yesterday which is very unusual for him. Approximately 1130 last night she had the patient get up to go to the bathroom and heard him fall. He however is able to get up and returned to bed; unknown if he hit his head at this time. Patient again woke up around 2 AM and woke up his mother asking for orange juice and then proceeded to fall again, she does not think he hit his head at this time. He was taken to hospital and found to have a systolic blood pressure greater than [address] scan found to have an intracranial hemorrhage. Due to severity of his condition he was transferred here. Patient's mother reports she is not aware of any past medical history other than hypertension which he intermittently takes hydrochlorothiazide for. Vitals/I&O Vitals/I&O: Vital Signs Date Time Temp Pulse Resp B/P (MAP) Pulse Ox O2 Delivery O2 Flow Rate FiO2 7/20/21 06:00 64 16 139/79 (99) 99 Ventilator 02/21/21 04:00 99.6 99.6 I & O 02/20/21 02/20/21 02/21/21 15:00 23:00 07:00 Intake Total 50 ml 1394 ml 1757 ml Output Total 950 ml 1175 ml 1200 ml Balance -900 ml 219 ml 557 ml Physical Exam Physical Exam: GENERAL: Sedated, orally intubated gentleman, HEENT: ETT/OGT + NECK: Rt IJ clean LUNGS: Decreased breath sound at bases HEART: S1, S2 bradycardia ABDOMEN: Soft, nontender, no organomegaly. EXTREMITIES: + less edema, no cyanosis. SKIN:no gen rash NEUROLOGIC: unable to assess General: Other (Intubated) Heart: Regular rate Lungs: Clear, Crackles Abdomen: Normal bowel sounds Extremities: No clubbing, No edema Skin: Other (incision dry, warren) Labs Labs: Laboratory Tests Test 02/20/21 12:36 02/20/21 17:13 02/21/21 00:19 02/21/21 06:00 Glucose (Fingerstick) 218 mg/dL (70-99) 213 mg/dL (70-99) 193 mg/dL (70-99) White Blood Count 10.0 x10^3/uL (4.0-11.0) Red Blood Count 3.62 x10^6/uL (4.30-5.70) Hemoglobin 10.9 g/dL (13.0-17.5) Hematocrit 32.8 % (39.0-53.0) Mean Corpuscular Volume 90 fL (79-100) Mean Corpuscular Hemoglobin 30 pg (25-35) Mean Corpuscular Hemoglobin Concent 33 g/dL (31-37) Red Cell Distribution Width 13.7 % (11.5-14.5) Platelet Count 210 x10^3/uL (140-400) Neutrophils (%) (Auto) 76 % (31-73) Lymphocytes (%) (Auto) 15 % (24-48) Monocytes (%) (Auto) 8 % (0-9) Eosinophils (%) (Auto) 2 % (0-3) Basophils (%) (Auto) 1 % (0-3) Neutrophils # (Auto) 7.6 x10^3/uL (1.8-7.7) Lymphocytes # (Auto) 1.4 x10^3/uL (1.0-4.8) Monocytes # (Auto) 0.7 x10^3/uL (0.0-1.1) Eosinophils # (Auto) 0.2 x10^3/uL (0.0-0.7) Basophils # (Auto) 0.0 x10^3/uL (0.0-0.2) Sodium Level 142 mmol/L (136-145) Potassium Level 4.3 mmol/L (3.5-5.1) Chloride Level 108 mmol/L (98-107) Carbon Dioxide Level 27 mmol/L (21-32) Anion Gap 7 (6-14) Blood Urea Nitrogen 20 mg/dL (8-26) Creatinine 0.9 mg/dL (0.7-1.3) Estimated GFR (Cockcroft-Gault) 104.2 Glucose Level 213 mg/dL (70-99) Calcium Level 8.5 mg/dL (8.5-10.1) Phosphorus Level 3.9 mg/dL (2.6-4.7) Magnesium Level 1.8 mg/dL (1.8-2.4) Test 02/21/21 06:03 Glucose (Fingerstick) 224 mg/dL (70-99) Comment Review of Relevant I have reviewed the following items neela (where applicable) has been applied. Medications: Current Medications Medications (Trade) Dose Ordered Sig/Lorraine Route PRN Reason Start Time Stop Time Status Last Admin Dose Admin Potassium Acetate 50 meq/Potassium Phosphate 13.6 mmol/Magnesium Sulfate 6 meq/ Calcium Gluconate 10 meq/ Multivitamins 5 ml/Zinc/Copper/ Manganese/ Selenium 1 ml/ Total Parenteral Nutrition/Amino Acids/Dextrose 2,040 ml @ 85 mls/hr TPN CONT IV 02/20/21 22:00 02/21/21 21:59 02/20/21 22:10 Justifications for Admission Other Justification JEANINE NEWMAN MD Feb 21, 2021 08:19
--- NOTE | 2021-02-21 09:23 | PDOC ---
DATE OF SERVICE DATE: 02/21/21 TIME: 09:20 SUBJECTIVE ROS Remains Intubated OBJECTIVE Vital Signs Vital Signs Date Time Temp Pulse Resp B/P (MAP) Pulse Ox O2 Delivery O2 Flow Rate FiO2 02/21/21 08:31 95 Ventilator 02/21/21 06:00 64 16 139/79 (99) 02/21/21 04:00 99.6 99.6 I & 0 Intake and Output 02/21/21 07:00 Intake Total 3201 ml Output Total 3325 ml Balance -124 ml Intake IV Total 3201 ml Output Urine Total 2925 ml Gastric Drainage Total 400 ml PHYSICAL EXAM Physical Exam General Intubated/MV HEEN Intubated Neck Supple Lungs CTA ant CV S1 S2 Abd Soft, NT Ext No LE edema, No cyanosis Moore in place Skin No rash Neuro - exam per neurologist DIAGNOSIS/ASSESSMENT Assessment & Plan MARVIN -ATN Resolved , monitor, Supportive care, Maintain Hydration, Electrolytes stable, Large right temporo-occipital intraparenchymal bleed, most likely lobar hemorrhage s/p craniotomy 02/09 evening HypoKalemia Corrected HypetNatremia- resolved , On TPN Hypertensive emergency POA - Cardene gtt as indicated Acute hypoxic respiratory failure secondary to intracranial hemorrhage and hypertensive emergency. Hypoxia secondary to basilar atelectasis contributed by encephalopathy Long history of tobaccoism. CT angiogram showed bullous emphysema in the upper lobes. Nutrition - TPN COMMENT/RELEVANT DATA Meds Current Medications Medications (Trade) Dose Ordered Sig/Lorraine Start Time Stop Time Status Last Admin Dose Admin Acetaminophen (Tylenol Supp) 650 mg PRN Q6HRS PRN 02/11/21 21:15 Acetaminophen (Tylenol) 650 mg PRN Q6HRS PRN 02/19/21 18:00 02/20/21 03:50 650 MG Albuterol Sulfate (Ventolin Neb Soln) 2.5 mg PRN Q4HRS PRN 02/09/21 15:15 Atropine Sulfate (ATROPINE 0.5mg SYRINGE) 0.5 mg PRN Q5MIN PRN 02/15/21 14:15 Bupivacaine HCl/ Epinephrine Bitart (Sensorcain-Epi 0.5%-1:[id number] Mpf) 30 ml STK-MED ONCE 02/09/21 16:33 02/09/21 16:33 DC 02/09/21 17:49 5 ML Cefazolin Sodium (Ancef) 1 gm STK-MED ONCE 02/09/21 17:28 02/09/21 17:28 DC Cellulose (Surgicel Hemostat 4x8) 1 each STK-MED ONCE 02/09/21 16:33 02/09/21 16:33 DC 02/09/21 18:38 1 EACH Clonidine HCl (Catapres Tts-3) 1 patch WEEKLY 02/13/21 11:00 02/20/21 07:50 1 PATCH Dexmedetomidine HCl 400 mcg/ Sodium Chloride 100 ml @ 0 mls/hr CONT PRN 02/15/21 14:15 02/21/21 03:10 23.4 MLS/HR Dextrose 1,000 ml @ 75 mls/hr [id number] 02/17/21 10:30 02/19/21 12:57 DC 02/18/21 13:51 75 MLS/HR Dextrose (Dextrose 50%-Water Syringe) 12.5 gm PRN Q15MIN PRN 02/12/21 12:15 Fentanyl Citrate 55 ml @ 0 mls/hr CONT PRN 02/10/21 05:00 02/21/21 00:48 1 MLS/HR Fentanyl Citrate (Fentanyl 2ml Vial) 100 mcg STK-MED ONCE 02/09/21 17:43 02/09/21 17:43 DC Furosemide (Lasix) 40 mg 1X ONCE 02/12/21 12:30 02/12/21 12:31 DC 02/12/21 12:44 40 MG Gelatin (Gelfoam Size 100) 1 each STK-MED ONCE 02/09/21 16:33 02/09/21 16:33 DC 02/09/21 17:49 1 EACH Hydralazine HCl (Apresoline Inj) 10 mg PRN Q4HRS PRN 02/14/21 16:00 02/18/21 12:03 10 MG Info (CONTRAST GIVEN -- Rx MONITORING) 1 each PRN DAILY PRN 02/09/21 15:45 02/11/21 15:44 DC Info (Review Meds) 1 ea PRN 1X PRN 02/09/21 15:00 Info (Tpn Per Pharmacy) 1 each PRN DAILY PRN 02/11/21 11:15 02/20/21 12:48 1 EACH Insulin Glargine (Lantus Syringe) 25 unit QHS 02/19/21 21:00 02/20/21 22:11 25 UNIT Insulin Human Lispro (HumaLOG) 0-5 UNITS Q6HRS 02/12/21 12:00 02/21/21 06:16 3 UNITS Iohexol (Omnipaque 350 Mg/ml) 100 ml STK-MED ONCE 02/09/21 15:26 02/09/21 15:27 DC Labetalol HCl (Normodyne Iv Push) 10 mg PRN Q2HR PRN 02/09/21 06:15 02/18/21 15:06 10 MG Lidocaine HCl (Buffered Lidocaine 1%) 6 ml 1X ONCE 02/10/21 13:45 02/10/21 13:46 DC 02/10/21 13:57 3 ML Lidocaine HCl (Lidocaine HCl 2% Abboject) 100 mg 1X ONCE 02/09/21 17:15 02/09/21 17:16 DC Lorazepam (Ativan Inj) 2 mg 1X ONCE 02/09/21 11:00 02/09/21 11:01 DC 02/09/21 11:00 2 MG Midazolam HCl 100 ml @ 1 mls/hr CONT PRN 02/11/21 19:30 02/13/21 20:58 5 MLS/HR Nicardipine HCl 50 mg/Sodium Chloride 250 ml @ 12.5 mls/hr CONT PRN 02/09/21 06:15 02/16/21 14:00 50 MLS/HR Pantoprazole Sodium (PROTONIX VIAL for IV PUSH) 40 mg DAILYAC 02/10/21 09:00 02/21/21 06:14 40 MG Piperacillin Sod/ Tazobactam Sod 3.375 gm/Sodium Chloride 50 ml @ 100 mls/hr Q6HRS 02/11/21 09:00 02/21/21 06:15 100 MLS/HR Potassium Chloride/Dextrose/ Sod Cl 1,000 ml @ 80 mls/hr [id number] 02/10/21 09:00 02/10/21 13:21 DC Potassium Chloride/Water 100 ml @ 100 mls/hr Q1H 02/11/21 08:00 02/11/21 09:59 DC 02/11/21 10:07 100 MLS/HR Potassium Acetate 50 meq/Potassium Phosphate 13.6 mmol/Magnesium Sulfate 6 meq/ Calcium Gluconate 10 meq/ Multivitamins 5 ml/Zinc/Copper/ Manganese/ Selenium 1 ml/ Total Parenteral Nutrition/Amino Acids/Dextrose 2,040 ml @ 85 mls/hr TPN CONT 02/20/21 22:00 02/21/21 21:59 02/20/21 22:10 85 MLS/HR Propofol 100 ml @ 0 mls/hr CONT PRN PRN 02/09/21 17:15 02/10/21 05:14 DC Propofol (Diprivan) 200 mg 1X ONCE 02/09/21 17:15 02/09/21 17:16 DC Rocuronium [place] (Zemuron) 100 mg STK-MED ONCE 02/09/21 17:58 02/09/21 17:59 DC Sevoflurane (Ultane) 90 ml STK-MED ONCE 02/09/21 19:20 02/09/21 19:21 DC Sodium Chloride 500 ml @ 500 mls/hr 1X PRN PRN 02/15/21 14:15 Sodium Chloride (SODIUM CHLORIDE 20ml) 20 ml STK-MED ONCE 02/09/21 18:50 02/09/21 18:50 DC Sodium Chloride 80 meq/Potassium Chloride 50 meq/ Potassium Phosphate 13.6 mmol/Magnesium Sulfate 6 meq/ Calcium Gluconate 10 meq/ Multivitamins 5 ml/Zinc/Copper/ Manganese/ Selenium 1 ml/ Total Parenteral Nutrition/Amino Acids/Dextrose 1,512 ml @ 63 mls/hr TPN CONT 02/13/21 22:00 02/14/21 21:59 DC 02/13/21 21:42 63 MLS/HR Sodium Chloride 90 meq/Potassium Chloride 50 meq/ Potassium Phosphate 13.6 mmol/Magnesium Sulfate 10 meq/ Calcium Gluconate 10 meq/ Multivitamins 5 ml/Zinc/Copper/ Manganese/ Selenium 1 ml/ Total Parenteral Nutrition/Amino Acids/Dextrose 1,512 ml @ 63 mls/hr TPN CONT 02/11/21 22:00 02/12/21 21:59 DC 02/11/21 22:32 63 MLS/HR Thrombin 20,000 unit STK-MED ONCE 02/09/21 16:33 02/09/21 16:33 DC 02/09/21 17:49 20,000 UNIT Vecuronium [place] (Norcuron Bolus) 10 mg STK-MED ONCE 02/09/21 18:49 02/09/21 18:50 DC Lab Laboratory Tests Test 02/20/21 12:36 02/20/21 17:13 02/21/21 00:19 02/21/21 06:00 Glucose (Fingerstick) 218 mg/dL (70-99) 213 mg/dL (70-99) 193 mg/dL (70-99) White Blood Count 10.0 x10^3/uL (4.0-11.0) Red Blood Count 3.62 x10^6/uL (4.30-5.70) Hemoglobin 10.9 g/dL (13.0-17.5) Hematocrit 32.8 % (39.0-53.0) Mean Corpuscular Volume 90 fL (79-100) Mean Corpuscular Hemoglobin 30 pg (25-35) Mean Corpuscular Hemoglobin Concent 33 g/dL (31-37) Red Cell Distribution Width 13.7 % (11.5-14.5) Platelet Count 210 x10^3/uL (140-400) Neutrophils (%) (Auto) 76 % (31-73) Lymphocytes (%) (Auto) 15 % (24-48) Monocytes (%) (Auto) 8 % (0-9) Eosinophils (%) (Auto) 2 % (0-3) Basophils (%) (Auto) 1 % (0-3) Neutrophils # (Auto) 7.6 x10^3/uL (1.8-7.7) Lymphocytes # (Auto) 1.4 x10^3/uL (1.0-4.8) Monocytes # (Auto) 0.7 x10^3/uL (0.0-1.1) Eosinophils # (Auto) 0.2 x10^3/uL (0.0-0.7) Basophils # (Auto) 0.0 x10^3/uL (0.0-0.2) Sodium Level 142 mmol/L (136-145) Potassium Level 4.3 mmol/L (3.5-5.1) Chloride Level 108 mmol/L (98-107) Carbon Dioxide Level 27 mmol/L (21-32) Anion Gap 7 (6-14) Blood Urea Nitrogen 20 mg/dL (8-26) Creatinine 0.9 mg/dL (0.7-1.3) Estimated GFR (Cockcroft-Gault) 104.2 Glucose Level 213 mg/dL (70-99) Calcium Level 8.5 mg/dL (8.5-10.1) Phosphorus Level 3.9 mg/dL (2.6-4.7) Magnesium Level 1.8 mg/dL (1.8-2.4) Test 02/21/21 06:03 Glucose (Fingerstick) 224 mg/dL (70-99) Results All relevant outside records, renal labs, imaging studies, telemetry/EKG's were reviewed. Justicifation of Admission Dx: Justifications for Admission: Justification of Admission Dx: Yes Acute Hemorrhagic Stroke: Acute Hemorrhagic Stroke YULIA CAMACHO MD Feb 21, 2021 09:23
[2021-02-21] MEDS ORDERED: MAGNESIUM SULFATE 2GM 50 ML IV ONE (11:00)
--- NOTE | 2021-02-21 11:43 | PDOC ---
PULMONARY PROGRESS NOTES DATE: 02/21/21 TIME: 11:34 Subjective PT. remains on AC mode with vent support low grade fever overnight no other concerns from nursing Vitals Vital Signs Date Time Temp Pulse Resp B/P (MAP) Pulse Ox O2 Delivery O2 Flow Rate FiO2 02/21/21 11:00 59 16 138/79 (98) 99 Ventilator 02/21/21 08:00 99.0 99.0 Comments ros unable to obtain intubated on vent Lungs: Clear, Crackles Cardiovascular: S1, S2 Abdomen: Soft, Non-tender Extremities: No Edema Skin: Warm Labs Laboratory Tests Test 02/19/21 12:50 02/19/21 12:55 02/19/21 17:41 02/19/21 20:53 Troponin I Quantitative 0.557 ng/mL (0.000-0.055) Glucose (Fingerstick) 222 mg/dL (70-99) 234 mg/dL (70-99) 223 mg/dL (70-99) Test 02/19/21 23:46 02/20/21 05:44 02/20/21 06:15 02/20/21 12:36 Glucose (Fingerstick) 202 mg/dL (70-99) 212 mg/dL (70-99) 218 mg/dL (70-99) White Blood Count 10.3 x10^3/uL (4.0-11.0) Red Blood Count 3.69 x10^6/uL (4.30-5.70) Hemoglobin 11.1 g/dL (13.0-17.5) Hematocrit 33.9 % (39.0-53.0) Mean Corpuscular Volume 92 fL (79-100) Mean Corpuscular Hemoglobin 30 pg (25-35) Mean Corpuscular Hemoglobin Concent 33 g/dL (31-37) Red Cell Distribution Width 13.7 % (11.5-14.5) Platelet Count 225 x10^3/uL (140-400) Neutrophils (%) (Auto) 73 % (31-73) Lymphocytes (%) (Auto) 17 % (24-48) Monocytes (%) (Auto) 9 % (0-9) Eosinophils (%) (Auto) 1 % (0-3) Basophils (%) (Auto) 0 % (0-3) Neutrophils # (Auto) 7.5 x10^3/uL (1.8-7.7) Lymphocytes # (Auto) 1.7 x10^3/uL (1.0-4.8) Monocytes # (Auto) 0.9 x10^3/uL (0.0-1.1) Eosinophils # (Auto) 0.1 x10^3/uL (0.0-0.7) Basophils # (Auto) 0.0 x10^3/uL (0.0-0.2) Sodium Level 141 mmol/L (136-145) Potassium Level 4.2 mmol/L (3.5-5.1) Chloride Level 108 mmol/L (98-107) Carbon Dioxide Level 26 mmol/L (21-32) Anion Gap 7 (6-14) Blood Urea Nitrogen 23 mg/dL (8-26) Creatinine 1.2 mg/dL (0.7-1.3) Estimated GFR (Cockcroft-Gault) 74.7 BUN/Creatinine Ratio 19 (6-20) Glucose Level 214 mg/dL (70-99) Calcium Level 8.9 mg/dL (8.5-10.1) Phosphorus Level 4.0 mg/dL (2.6-4.7) Magnesium Level 2.1 mg/dL (1.8-2.4) Total Bilirubin 0.5 mg/dL (0.2-1.0) Aspartate Amino Transf (AST/SGOT) 60 U/L (15-37) Alanine Aminotransferase (ALT/SGPT) 117 U/L (16-63) Alkaline Phosphatase 112 U/L (46-116) Total Protein 6.4 g/dL (6.4-8.2) Albumin 2.2 g/dL (3.4-5.0) Albumin/Globulin Ratio 0.5 (1.0-1.7) Triglycerides Level 246 mg/dL (0-150) Test 02/20/21 17:13 02/21/21 00:19 02/21/21 06:00 02/21/21 06:03 Glucose (Fingerstick) 213 mg/dL (70-99) 193 mg/dL (70-99) 224 mg/dL (70-99) White Blood Count 10.0 x10^3/uL (4.0-11.0) Red Blood Count 3.62 x10^6/uL (4.30-5.70) Hemoglobin 10.9 g/dL (13.0-17.5) Hematocrit 32.8 % (39.0-53.0) Mean Corpuscular Volume 90 fL (79-100) Mean Corpuscular Hemoglobin 30 pg (25-35) Mean Corpuscular Hemoglobin Concent 33 g/dL (31-37) Red Cell Distribution Width 13.7 % (11.5-14.5) Platelet Count 210 x10^3/uL (140-400) Neutrophils (%) (Auto) 76 % (31-73) Lymphocytes (%) (Auto) 15 % (24-48) Monocytes (%) (Auto) 8 % (0-9) Eosinophils (%) (Auto) 2 % (0-3) Basophils (%) (Auto) 1 % (0-3) Neutrophils # (Auto) 7.6 x10^3/uL (1.8-7.7) Lymphocytes # (Auto) 1.4 x10^3/uL (1.0-4.8) Monocytes # (Auto) 0.7 x10^3/uL (0.0-1.1) Eosinophils # (Auto) 0.2 x10^3/uL (0.0-0.7) Basophils # (Auto) 0.0 x10^3/uL (0.0-0.2) Sodium Level 142 mmol/L (136-145) Potassium Level 4.3 mmol/L (3.5-5.1) Chloride Level 108 mmol/L (98-107) Carbon Dioxide Level 27 mmol/L (21-32) Anion Gap 7 (6-14) Blood Urea Nitrogen 20 mg/dL (8-26) Creatinine 0.9 mg/dL (0.7-1.3) Estimated GFR (Cockcroft-Gault) 104.2 Glucose Level 213 mg/dL (70-99) Calcium Level 8.5 mg/dL (8.5-10.1) Phosphorus Level 3.9 mg/dL (2.6-4.7) Magnesium Level 1.8 mg/dL (1.8-2.4) Laboratory Tests Test 02/20/21 12:36 02/20/21 17:13 02/21/21 00:19 02/21/21 06:00 Glucose (Fingerstick) 218 mg/dL (70-99) 213 mg/dL (70-99) 193 mg/dL (70-99) White Blood Count 10.0 x10^3/uL (4.0-11.0) Red Blood Count 3.62 x10^6/uL (4.30-5.70) Hemoglobin 10.9 g/dL (13.0-17.5) Hematocrit 32.8 % (39.0-53.0) Mean Corpuscular Volume 90 fL (79-100) Mean Corpuscular Hemoglobin 30 pg (25-35) Mean Corpuscular Hemoglobin Concent 33 g/dL (31-37) Red Cell Distribution Width 13.7 % (11.5-14.5) Platelet Count 210 x10^3/uL (140-400) Neutrophils (%) (Auto) 76 % (31-73) Lymphocytes (%) (Auto) 15 % (24-48) Monocytes (%) (Auto) 8 % (0-9) Eosinophils (%) (Auto) 2 % (0-3) Basophils (%) (Auto) 1 % (0-3) Neutrophils # (Auto) 7.6 x10^3/uL (1.8-7.7) Lymphocytes # (Auto) 1.4 x10^3/uL (1.0-4.8) Monocytes # (Auto) 0.7 x10^3/uL (0.0-1.1) Eosinophils # (Auto) 0.2 x10^3/uL (0.0-0.7) Basophils # (Auto) 0.0 x10^3/uL (0.0-0.2) Sodium Level 142 mmol/L (136-145) Potassium Level 4.3 mmol/L (3.5-5.1) Chloride Level 108 mmol/L (98-107) Carbon Dioxide Level 27 mmol/L (21-32) Anion Gap 7 (6-14) Blood Urea Nitrogen 20 mg/dL (8-26) Creatinine 0.9 mg/dL (0.7-1.3) Estimated GFR (Cockcroft-Gault) 104.2 Glucose Level 213 mg/dL (70-99) Calcium Level 8.5 mg/dL (8.5-10.1) Phosphorus Level 3.9 mg/dL (2.6-4.7) Magnesium Level 1.8 mg/dL (1.8-2.4) Test 02/21/21 06:03 Glucose (Fingerstick) 224 mg/dL (70-99) Comments CXR 02/21/21 IMPRESSION: 1. Stable life support devices. 2. Improving bibasilar opacities.. CXR 02/18/21 IMPRESSION: Unchanged bibasilar opacities. Recommend follow-up to ensure resolution, particularly of focal opacities in the right lung base. CXR 02/17/21 IMPRESSION: 1. Stable life support devices. 2. Stable bibasilar opacities. 3. Stable small left pleural effusion. IMPRESSION: Chest x-ray 02/13 1. Stable support lines and tubes. 2. Severe right upper lobe predominant bullous emphysema. 3. Stable right perihilar linear atelectasis or infiltrate superimposed on diffuse interstitial prominence and small pleural effusions. Impression . IMPRESSION: 1. Acute hypoxic respiratory failure multifactorial 2. Abnormal x-ray 3. Long history of tobaccoism. CT angiogram showed bullous emphysema in the upper lobes. 3. Acute kidney injury--resolved 4. Leukocytosis--resolved 5. s/p Right occipital craniotomy with evacuation of intracerebral hematoma. 02/09/21 6. Encephalopathy, multifactorial--ongoing 7. Uncontrolled hypertension 8. Fever, per ID CT head 02/13, discussed with Dr. Louie IMPRESSION: 1. Expected interval evolution of a right posterior temporal/occipital i ntraparenchymal hematoma status post decompressive craniotomy. 2. Expected evolution of a small amount of subarachnoid and intraventricular clot. DATE OF SURGERY: 02/09/2021 PREOPERATIVE DIAGNOSIS: Right posterior temporoparietal occipital intracerebral hemorrhage with neurologic deterioration. POSTOPERATIVE DIAGNOSIS: Right posterior temporoparietal occipital intracerebral hemorrhage with neurologic deterioration. OPERATION PERFORMED: Right occipital craniotomy with evacuation of intracerebral hematoma. Plan . Updated 02/21/21 Continue current vent support A/C mode rate of 16 at 40% Follow ABG/CXR-- no changes Follow ENT recs for trach-- plan for Saturday Follow ID recs for ABX on zosyn Follow Cardiology recs Follow neurosurgery recs-- S/P Right occipital craniotomy with evacuation of intracerebral hematoma--02/09/21 TPN for nutritional support Hyperglycemia per PCP DVT/GI PPX D/W RN and RT Social work for DC planning Updated 02/20 General surgery unavailable for trach We will consult ENT Antibiotics per ID Patient had a T-max yesterday 100.2 DVT GI prophylaxis A.m. ABG and chest x-ray UPDATED 02/19/21 Continue current vent support A/C mode Follow surgery recs for trach-- plan for next week Follow ID recs for ABX on zosyn Follow Cardiology recs Follow neurosurgery recs-- POD#11 S/P Right occipital craniotomy with evacuation of intracerebral hematoma TPN for nutritional support Hyperglycemia per PCP Cardene gtt for HTN PRN DVT/GI PPX D/W RN and RT Social work for DC planning RAJIV HORNE MD Feb 21, 2021 11:42
[2021-02-21] MEDS: TPN PER PHARMACY MC PRN (12:50)
--- NOTE | 2021-02-21 13:31 | PDOC ---
PROGRESS NOTES Date of Service DATE: 02/21/21 TIME: 13:29 Subjective Subjective S/P Right occipital craniotomy with evacuation of intracerebral hematoma--02/09/21 sedated on vent Objective Objective Vital Signs Date Time Temp Pulse Resp B/P (MAP) Pulse Ox O2 Delivery O2 Flow Rate FiO2 02/21/21 13:00 58 16 119/70 (86) 99 Ventilator 02/21/21 12:00 98.0 98.0 Intake and Output 02/21/21 07:00 Intake Total 3201 ml Output Total 3325 ml Balance -124 ml Intake IV Total 3201 ml Output Urine Total 2925 ml Gastric Drainage Total 400 ml Physical Exam General: Other (sedated, vent) Skin: Other (incision dry) Plan Plan of Care BP control wean sedation as tolerated Trach this week D/W RN Comment Review of Relevant I have reviewed the following items neela (where applicable) has been applied. Labs Laboratory Tests Test 02/19/21 17:41 02/19/21 20:53 02/19/21 23:46 02/20/21 05:44 Glucose (Fingerstick) 234 mg/dL (70-99) 223 mg/dL (70-99) 202 mg/dL (70-99) 212 mg/dL (70-99) Test 02/20/21 06:15 02/20/21 12:36 02/20/21 17:13 02/21/21 00:19 White Blood Count 10.3 x10^3/uL (4.0-11.0) Red Blood Count 3.69 x10^6/uL (4.30-5.70) Hemoglobin 11.1 g/dL (13.0-17.5) Hematocrit 33.9 % (39.0-53.0) Mean Corpuscular Volume 92 fL (79-100) Mean Corpuscular Hemoglobin 30 pg (25-35) Mean Corpuscular Hemoglobin Concent 33 g/dL (31-37) Red Cell Distribution Width 13.7 % (11.5-14.5) Platelet Count 225 x10^3/uL (140-400) Neutrophils (%) (Auto) 73 % (31-73) Lymphocytes (%) (Auto) 17 % (24-48) Monocytes (%) (Auto) 9 % (0-9) Eosinophils (%) (Auto) 1 % (0-3) Basophils (%) (Auto) 0 % (0-3) Neutrophils # (Auto) 7.5 x10^3/uL (1.8-7.7) Lymphocytes # (Auto) 1.7 x10^3/uL (1.0-4.8) Monocytes # (Auto) 0.9 x10^3/uL (0.0-1.1) Eosinophils # (Auto) 0.1 x10^3/uL (0.0-0.7) Basophils # (Auto) 0.0 x10^3/uL (0.0-0.2) Sodium Level 141 mmol/L (136-145) Potassium Level 4.2 mmol/L (3.5-5.1) Chloride Level 108 mmol/L (98-107) Carbon Dioxide Level 26 mmol/L (21-32) Anion Gap 7 (6-14) Blood Urea Nitrogen 23 mg/dL (8-26) Creatinine 1.2 mg/dL (0.7-1.3) Estimated GFR (Cockcroft-Gault) 74.7 BUN/Creatinine Ratio 19 (6-20) Glucose Level 214 mg/dL (70-99) Calcium Level 8.9 mg/dL (8.5-10.1) Phosphorus Level 4.0 mg/dL (2.6-4.7) Magnesium Level 2.1 mg/dL (1.8-2.4) Total Bilirubin 0.5 mg/dL (0.2-1.0) Aspartate Amino Transf (AST/SGOT) 60 U/L (15-37) Alanine Aminotransferase (ALT/SGPT) 117 U/L (16-63) Alkaline Phosphatase 112 U/L (46-116) Total Protein 6.4 g/dL (6.4-8.2) Albumin 2.2 g/dL (3.4-5.0) Albumin/Globulin Ratio 0.5 (1.0-1.7) Triglycerides Level 246 mg/dL (0-150) Glucose (Fingerstick) 218 mg/dL (70-99) 213 mg/dL (70-99) 193 mg/dL (70-99) Test 02/21/21 06:00 02/21/21 06:03 White Blood Count 10.0 x10^3/uL (4.0-11.0) Red Blood Count 3.62 x10^6/uL (4.30-5.70) Hemoglobin 10.9 g/dL (13.0-17.5) Hematocrit 32.8 % (39.0-53.0) Mean Corpuscular Volume 90 fL (79-100) Mean Corpuscular Hemoglobin 30 pg (25-35) Mean Corpuscular Hemoglobin Concent 33 g/dL (31-37) Red Cell Distribution Width 13.7 % (11.5-14.5) Platelet Count 210 x10^3/uL (140-400) Neutrophils (%) (Auto) 76 % (31-73) Lymphocytes (%) (Auto) 15 % (24-48) Monocytes (%) (Auto) 8 % (0-9) Eosinophils (%) (Auto) 2 % (0-3) Basophils (%) (Auto) 1 % (0-3) Neutrophils # (Auto) 7.6 x10^3/uL (1.8-7.7) Lymphocytes # (Auto) 1.4 x10^3/uL (1.0-4.8) Monocytes # (Auto) 0.7 x10^3/uL (0.0-1.1) Eosinophils # (Auto) 0.2 x10^3/uL (0.0-0.7) Basophils # (Auto) 0.0 x10^3/uL (0.0-0.2) Sodium Level 142 mmol/L (136-145) Potassium Level 4.3 mmol/L (3.5-5.1) Chloride Level 108 mmol/L (98-107) Carbon Dioxide Level 27 mmol/L (21-32) Anion Gap 7 (6-14) Blood Urea Nitrogen 20 mg/dL (8-26) Creatinine 0.9 mg/dL (0.7-1.3) Estimated GFR (Cockcroft-Gault) 104.2 Glucose Level 213 mg/dL (70-99) Calcium Level 8.5 mg/dL (8.5-10.1) Phosphorus Level 3.9 mg/dL (2.6-4.7) Magnesium Level 1.8 mg/dL (1.8-2.4) Glucose (Fingerstick) 224 mg/dL (70-99) Laboratory Tests Test 02/20/21 17:13 02/21/21 00:19 02/21/21 06:00 02/21/21 06:03 Glucose (Fingerstick) 213 mg/dL (70-99) 193 mg/dL (70-99) 224 mg/dL (70-99) White Blood Count 10.0 x10^3/uL (4.0-11.0) Red Blood Count 3.62 x10^6/uL (4.30-5.70) Hemoglobin 10.9 g/dL (13.0-17.5) Hematocrit 32.8 % (39.0-53.0) Mean Corpuscular Volume 90 fL (79-100) Mean Corpuscular Hemoglobin 30 pg (25-35) Mean Corpuscular Hemoglobin Concent 33 g/dL (31-37) Red Cell Distribution Width 13.7 % (11.5-14.5) Platelet Count 210 x10^3/uL (140-400) Neutrophils (%) (Auto) 76 % (31-73) Lymphocytes (%) (Auto) 15 % (24-48) Monocytes (%) (Auto) 8 % (0-9) Eosinophils (%) (Auto) 2 % (0-3) Basophils (%) (Auto) 1 % (0-3) Neutrophils # (Auto) 7.6 x10^3/uL (1.8-7.7) Lymphocytes # (Auto) 1.4 x10^3/uL (1.0-4.8) Monocytes # (Auto) 0.7 x10^3/uL (0.0-1.1) Eosinophils # (Auto) 0.2 x10^3/uL (0.0-0.7) Basophils # (Auto) 0.0 x10^3/uL (0.0-0.2) Sodium Level 142 mmol/L (136-145) Potassium Level 4.3 mmol/L (3.5-5.1) Chloride Level 108 mmol/L (98-107) Carbon Dioxide Level 27 mmol/L (21-32) Anion Gap 7 (6-14) Blood Urea Nitrogen 20 mg/dL (8-26) Creatinine 0.9 mg/dL (0.7-1.3) Estimated GFR (Cockcroft-Gault) 104.2 Glucose Level 213 mg/dL (70-99) Calcium Level 8.5 mg/dL (8.5-10.1) Phosphorus Level 3.9 mg/dL (2.6-4.7) Magnesium Level 1.8 mg/dL (1.8-2.4) Microbiology 02/11/21 Blood Culture - Final, Complete NO GROWTH AFTER 5 DAYS 02/11/21 Gram Stain Evaluation - Final, Complete 02/11/21 Respiratory Culture - Final, Complete Medications Current Medications Nicardipine HCl 50 mg/Sodium Chloride 250 ml @ 12.5 mls/hr CONT PRN IV SEE I/O RECORD Last administered on 02/16/21at 14:00; Start 02/09/21 at 06:15 Labetalol HCl (Normodyne Iv Push) 10 mg PRN Q2HR PRN IVP HYPERTENSION- 1ST CHOICE Last administered on 02/18/21at 15:06; Start 02/09/21 at 06:15 Lorazepam (Ativan Inj) 2 mg 1X ONCE IVP Last administered on 02/09/21at 10:54; Start 02/09/21 at 10:45; Stop 02/09/21 at 10:46; Status DC Lorazepam (Ativan Inj) 2 mg 1X ONCE IVP Last administered on 02/09/21at 11:00; Start 02/09/21 at 11:00; Stop 02/09/21 at 11:01; Status DC Fentanyl Citrate (Fentanyl 2ml Vial) 25 mcg PRN Q2HR PRN IVP MODERATE TO SEVERE PAIN Last administered on 02/09/21at 13:37; Start 02/09/21 at 13:30; Stop 02/18/21 at 22:53; Status DC Info (Review Meds) 1 ea PRN 1X PRN MC SEE COMMENTS; Start 02/09/21 at 15:00 Acetaminophen (Tylenol Supp) 650 mg PRN Q6HRS PRN [place] FEVER > 100.5'F or 38'C; Start 02/09/21 at 15:00; Stop 02/11/21 at 21:12; Status DC Albuterol Sulfate (Ventolin Neb Soln) 2.5 mg PRN Q4HRS PRN NEB SHORTNESS OF BREATH; Start 02/09/21 at 15:15 Iohexol (Omnipaque 350 Mg/ml) 75 ml 1X ONCE IV Last administered on 02/09/21at 15:52; Start 02/09/21 at 15:30; Stop 02/09/21 at 15:35; Status DC Iohexol (Omnipaque 350 Mg/ml) 100 ml STK-MED ONCE .ROUTE ; Start 02/09/21 at 15:26; Stop 02/09/21 at 15:27; Status DC Info (CONTRAST GIVEN -- Rx MONITORING) 1 each PRN DAILY PRN MC SEE COMMENTS; Start 02/09/21 at 15:45; Stop 02/11/21 at 15:44; Status DC Propofol 100 ml @ As Directed STK-MED ONCE IV ; Start 02/09/21 at 15:51; Stop 02/09/21 at 15:51; Status DC Rocuronium [place] (Zemuron) 50 mg STK-MED ONCE .ROUTE ; Start 02/09/21 at 15:51; Stop 02/09/21 at 15:51; Status DC Lidocaine HCl (Lidocaine HCl 2% Abboject) 100 mg STK-MED ONCE .ROUTE ; Start 02/09/21 at 15:52; Stop 02/09/21 at 15:53; Status DC Propofol 100 ml @ 3.507 mls/ hr CONT PRN IV PER PROTOCOL Last administered on 02/21/21at 09:26; Start 02/09/21 at 16:15 Lidocaine HCl (Lidocaine HCl 2% Abboject) 100 mg 1X ONCE IV Last administered on 02/09/21at 16:17; Start 02/09/21 at 16:15; Stop 02/09/21 at 16:17; Status DC Rocuronium [place] (Zemuron) 50 mg 1X ONCE IV Last administered on 02/09/21at 16:17; Start 02/09/21 at 16:15; Stop 02/09/21 at 16:17; Status DC Rocuronium [place] (Zemuron) 100 mg STK-MED ONCE .ROUTE ; Start 02/09/21 at 16:31; Stop 02/09/21 at 16:32; Status DC Gelatin (Gelfoam Size 100) 1 each STK-MED ONCE .ROUTE Last administered on 02/09/21at 17:49; Start 02/09/21 at 16:33; Stop 02/09/21 at 16:33; Status DC Bupivacaine HCl/ Epinephrine Bitart (Sensorcain-Epi 0.5%-1:392103 Mpf) 30 ml STK-MED ONCE .ROUTE Last administered on 02/09/21at 17:49; Start 02/09/21 at 16:33; Stop 02/09/21 at 16:33; Status DC Cellulose (Surgicel Hemostat 4x8) 1 each STK-MED ONCE .ROUTE Last administered on 02/09/21at 18:38; Start 02/09/21 at 16:33; Stop 02/09/21 at 16:33; Status DC Thrombin 20,000 unit STK-MED ONCE TP Last administered on 02/09/21at 17:49; Start 02/09/21 at 16:33; Stop 02/09/21 at 16:33; Status DC Fentanyl Citrate (Fentanyl 2ml Vial) 75 mcg 1X ONCE IVP Last administered on 02/09/21at 16:45; Start 02/09/21 at 16:45; Stop 02/09/21 at 16:47; Status DC Propofol (Diprivan) 200 mg 1X ONCE IV ; Start 02/09/21 at 17:15; Stop 02/09/21 at 17:16; Status DC Lidocaine HCl (Lidocaine HCl 2% Abboject) 100 mg 1X ONCE IV ; Start 02/09/21 at 17:15; Stop 02/09/21 at 17:16; Status DC Rocuronium [place] (Zemuron) 50 mg 1X ONCE IV ; Start 02/09/21 at 17:15; Stop 02/09/21 at 17:16; Status DC Propofol 100 ml @ 0 mls/hr CONT PRN PRN IV SEDATION; Start 02/09/21 at 17:15; Stop 02/10/21 at 05:14; Status DC Cefazolin Sodium (Ancef) 1 gm STK-MED ONCE IVP ; Start 02/09/21 at 17:28; Stop 02/09/21 at 17:28; Status DC Fentanyl Citrate (Fentanyl 2ml Vial) 100 mcg STK-MED ONCE .ROUTE ; Start 02/09/21 at 17:43; Stop 02/09/21 at 17:43; Status DC Rocuronium [place] (Zemuron) 100 mg STK-MED ONCE .ROUTE ; Start 02/09/21 at 17:58; Stop 02/09/21 at 17:59; Status DC Vecuronium [place] (Norcuron Bolus) 10 mg STK-MED ONCE IV ; Start 02/09/21 at 18:49; Stop 02/09/21 at 18:50; Status DC Sodium Chloride (SODIUM CHLORIDE 20ml) 20 ml STK-MED ONCE IJ ; Start 02/09/21 at 18:50; Stop 02/09/21 at 18:50; Status DC Sevoflurane (Ultane) 90 ml STK-MED ONCE IH ; Start 02/09/21 at 19:20; Stop at 19:21; Status DC Fentanyl Citrate 30 ml @ 2.5 mls/hr CONT PRN IV SEE PROTOCOL Last administered on 02/09/21at 23:40; Start 02/09/21 at 23:15; Stop 02/10/21 at 04:43; Status DC Fentanyl Citrate 55 ml @ 0 mls/hr CONT PRN IV SEE I/O Last administered on 02/21/21at 00:48; Start 02/10/21 at 05:00 Potassium Chloride/Dextrose/ Sod Cl 1,000 ml @ 80 mls/hr [id number] IV ; Start 02/10/21 at 09:00; Stop 02/10/21 at 13:21; Status DC Pantoprazole Sodium (PROTONIX VIAL for IV PUSH) 40 mg DAILYAC IVP Last administered on 02/21/21at 06:14; Start 02/10/21 at 09:00 Lidocaine HCl (Buffered Lidocaine 1%) 3 ml STK-MED ONCE .ROUTE ; Start 02/10/21 at 13:18; Stop 02/10/21 at 13:18; Status DC Sodium Chloride 1,000 ml @ 80 mls/hr [id number] IV Last administered on 02/12/21at 03:00; Start 02/10/21 at 13:30; Stop 02/12/21 at 15:36; Status DC Lidocaine HCl (Buffered Lidocaine 1%) 6 ml 1X ONCE INJ Last administered on 02/10/21at 13:57; Start 02/10/21 at 13:45; Stop 02/10/21 at 13:46; Status DC Potassium Chloride/Water 100 ml @ 100 mls/hr Q1H IV Last administered on 02/11/21at 10:07; Start 02/11/21 at 08:00; Stop 02/11/21 at 09:59; Status DC Piperacillin Sod/ Tazobactam Sod 3.375 gm/Sodium Chloride 50 ml @ 100 mls/hr Q6HRS IV Last administered on 02/21/21at 06:15; Start 02/11/21 at 09:00 Info (Tpn Per Pharmacy) 1 each PRN DAILY PRN MC SEE COMMENTS Last administered on 02/21/21at 12:50; Start 02/11/21 at 11:15 Sodium Chloride 90 meq/Potassium Chloride 50 meq/ Potassium Phosphate 13.6 mmol/Magnesium Sulfate 10 meq/ Calcium Gluconate 10 meq/ Multivitamins 5 ml/Zinc/Copper/ Manganese/ Selenium 1 ml/ Total Parenteral Nutrition/Amino Acids/Dextrose 1,512 ml @ 63 mls/hr TPN CONT IV Last administered on 02/11/21at 22:32; Start 02/11/21 at 22:00; Stop 02/12/21 at 21:59; Status DC Furosemide (Lasix) 20 mg 1X ONCE IVP Last administered on 02/11/21at 15:11; Start 02/11/21 at 15:30; Stop 02/11/21 at 15:31; Status DC Furosemide (Lasix) 20 mg 1X ONCE IVP Last administered on 02/11/21at 17:00; Start 02/11/21 at 17:00; Stop 02/11/21 at 17:01; Status DC Midazolam HCl 100 ml @ 1 mls/hr CONT PRN IV SEE PROTOCOL Last administered on 02/13/21at 20:58; Start 02/11/21 at 19:30 Acetaminophen (Tylenol Supp) 650 mg PRN Q6HRS PRN [place] MILD PAIN / TEMP > 100.3'F; Start 02/11/21 at 21:15 Sodium Chloride 80 meq/Potassium Chloride 50 meq/ Potassium Phosphate 13.6 mmol/Magnesium Sulfate 6 meq/ Calcium Gluconate 10 meq/ Multivitamins 5 ml/Zinc/Copper/ Manganese/ Selenium 1 ml/ Total Parenteral Nutrition/Amino Acids/Dextrose 1,512 ml @ 63 mls/hr TPN CONT IV Last administered on 02/12/21at 22:09; Start 02/12/21 at 22:00; Stop 02/13/21 at 21:59; Status DC Furosemide (Lasix) 40 mg 1X ONCE IVP Last administered on 02/12/21at 12:44; Start 02/12/21 at 12:30; Stop 02/12/21 at 12:31; Status DC Insulin Human Lispro (HumaLOG) 0-5 UNITS Q6HRS SQ Last administered on 02/21/21at 13:13; Start 02/12/21 at 12:00 Dextrose (Dextrose 50%-Water Syringe) 12.5 gm PRN Q15MIN PRN IV SEE COMMENTS; Start 02/12/21 at 12:15 Clonidine HCl (Catapres Tts-3) 1 patch WEEKLY TD Last administered on 02/20/21at 07:50; Start 02/13/21 at 11:00 Sodium Chloride 80 meq/Potassium Chloride 50 meq/ Potassium Phosphate 13.6 mmol/Magnesium Sulfate 6 meq/ Calcium Gluconate 10 meq/ Multivitamins 5 ml/Zinc/Copper/ Manganese/ Selenium 1 ml/ Total Parenteral Nutrition/Amino Acids/Dextrose 1,512 ml @ 63 mls/hr TPN CONT IV Last administered on 02/13/21at 21:42; Start 02/13/21 at 22:00; Stop 02/14/21 at 21:59; Status DC Potassium Acetate 50 meq/Potassium Phosphate 13.6 mmol/Magnesium Sulfate 6 meq/ Calcium Gluconate 10 meq/ Multivitamins 5 ml/Zinc/Copper/ Manganese/ Selenium 1 ml/ Total Parenteral Nutrition/Amino Acids/Dextrose 1,512 ml @ 63 mls/hr TPN CONT IV Last administered on 02/14/21at 21:59; Start 02/14/21 at 22:00; Stop 02/15/21 at 21:59; Status DC Insulin Glargine (Lantus Syringe) 10 unit QHS SQ Last administered on 02/15/21at 22:11; Start 02/14/21 at 21:00; Stop 02/16/21 at 12:42; Status DC Hydralazine HCl (Apresoline Inj) 10 mg PRN Q4HRS PRN IVP ELEVATED BP, SEE COMMENTS Last administered on 02/18/21at 12:03; Start 02/14/21 at 16:00 Potassium Acetate 50 meq/Potassium Phosphate 13.6 mmol/Magnesium Sulfate 6 meq/ Calcium Gluconate 10 meq/ Multivitamins 5 ml/Zinc/Copper/ Manganese/ Selenium 1 ml/ Total Parenteral Nutrition/Amino Acids/Dextrose 1,512 ml @ 63 mls/hr TPN CONT IV Last administered on 02/15/21at 22:13; Start 02/15/21 at 22:00; Stop 02/16/21 at 21:59; Status DC Dexmedetomidine HCl 400 mcg/ Sodium Chloride 100 ml @ 0 mls/hr CONT PRN IV PER PROTOCOL Last administered on 02/21/21at 11:30; Start 02/15/21 at 14:15 Sodium Chloride 500 ml @ 500 mls/hr 1X PRN PRN IV SEE COMMENTS; Start 02/15/21 at 14:15 Atropine Sulfate (ATROPINE 0.5mg SYRINGE) 0.5 mg PRN Q5MIN PRN IV SEE COMMENTS; Start 02/15/21 at 14:15 Potassium Acetate 50 meq/Potassium Phosphate 13.6 mmol/Magnesium Sulfate 6 meq/ Calcium Gluconate 10 meq/ Multivitamins 5 ml/Zinc/Copper/ Manganese/ Selenium 1 ml/ Total Parenteral Nutrition/Amino Acids/Dextrose 1,512 ml @ 63 mls/hr TPN CONT IV Last administered on 02/16/21at 22:59; Start 02/16/21 at 22:00; Stop 02/17/21 at 21:59; Status DC Insulin Glargine (Lantus Syringe) 14 unit QHS SQ Last administered on 02/16/21at 21:14; Start 02/16/21 at 21:00; Stop 02/17/21 at 14:15; Status DC Potassium Acetate 50 meq/Potassium Phosphate 13.6 mmol/Magnesium Sulfate 6 meq/ Calcium Gluconate 10 meq/ Multivitamins 5 ml/Zinc/Copper/ Manganese/ Selenium 1 ml/ Total Parenteral Nutrition/Amino Acids/Dextrose 1,512 ml @ 63 mls/hr TPN CONT IV Last administered on 02/17/21at 20:48; Start 02/17/21 at 22:00; Stop 02/18/21 at 21:59; Status DC Dextrose 1,000 ml @ 75 mls/hr [id number] IV Last administered on 02/18/21at 13:51; Start 02/17/21 at 10:30; Stop 02/19/21 at 12:57; Status DC Insulin Glargine (Lantus Syringe) 18 unit QHS SQ Last administered on 02/17/21at 20:46; Start 02/17/21 at 21:00; Stop 02/18/21 at 11:56; Status DC Insulin Glargine (Lantus Syringe) 22 unit QHS SQ Last administered on 02/18/21at 21:00; Start 02/18/21 at 21:00; Stop 02/19/21 at 14:08; Status DC Potassium Acetate 50 meq/Potassium Phosphate 13.6 mmol/Magnesium Sulfate 6 meq/ Calcium Gluconate 10 meq/ Multivitamins 5 ml/Zinc/Copper/ Manganese/ Selenium 1 ml/ Total Parenteral Nutrition/Amino Acids/Dextrose 1,512 ml @ 63 mls/hr TPN CONT IV Last administered on 02/18/21at 21:43; Start 02/18/21 at 22:00; Stop 02/19/21 at 21:59; Status DC Potassium Acetate 50 meq/Potassium Phosphate 13.6 mmol/Magnesium Sulfate 6 meq/ Calcium Gluconate 10 meq/ Multivitamins 5 ml/Zinc/Copper/ Manganese/ Selenium 1 ml/ Total Parenteral Nutrition/Amino Acids/Dextrose 2,040 ml @ 85 mls/hr TPN CONT IV Last administered on 02/19/21at 20:56; Start 02/19/21 at 22:00; Stop 02/20/21 at 21:59; Status DC Insulin Glargine (Lantus Syringe) 25 unit QHS SQ Last administered on 02/20/21at 22:11; Start 02/19/21 at 21:00; Stop 02/21/21 at 10:10; Status DC Acetaminophen (Tylenol) 650 mg PRN Q6HRS PRN [place] MILD PAIN / TEMP > 100.3'F Last administered on 02/20/21at 03:50; Start 02/19/21 at 18:00 Potassium Acetate 50 meq/Potassium Phosphate 13.6 mmol/Magnesium Sulfate 6 meq/ Calcium Gluconate 10 meq/ Multivitamins 5 ml/Zinc/Copper/ Manganese/ Selenium 1 ml/ Total Parenteral Nutrition/Amino Acids/Dextrose 2,040 ml @ 85 mls/hr TPN CONT IV Last administered on 02/20/21at 22:10; Start 02/20/21 at 22:00; Stop 02/21/21 at 21:59 Insulin Glargine (Lantus Syringe) 27 unit QHS SQ ; Start 02/21/21 at 21:00 Magnesium Sulfate 50 ml @ 25 mls/hr 1X ONCE IV Last administered on 02/21/21at 11:30; Start 02/21/21 at 11:00; Stop 02/21/21 at 12:59; Status DC Potassium Acetate 50 meq/Potassium Phosphate 13.6 mmol/Magnesium Sulfate 8 meq/ Calcium Gluconate 10 meq/ Multivitamins 5 ml/Zinc/Copper/ Manganese/ Selenium 1 ml/ Total Parenteral Nutrition/Amino Acids/Dextrose 2,040 ml @ 85 mls/hr TPN CONT IV ; Start 02/21/21 at 22:00; Stop 02/22/21 at 21:59 Vitals/I & O Vital Sign - Last 24 Hours 02/20/21 02/20/21 02/20/21 02/20/21 14:01 15:00 15:49 16:02 Pulse 69 70 Resp 18 16 B/P (MAP) 146/68 (94) 129/73 (91) Pulse Ox 97 98 100 O2 Delivery Ventilator Ventilator Mechanical Ventilator Ventilator 02/20/21 02/20/21 02/20/21 02/20/21 16:08 16:51 18:04 18:18 Temp 99.5 99.5 Pulse 81 65 81 Resp 17 17 17 B/P (MAP) 171/89 (116) 165/101 (122) 162/79 (106) Pulse Ox 100 100 99 99 O2 Delivery Ventilator Ventilator Ventilator Ventilator 02/20/21 02/20/21 02/20/21 02/20/21 19:00 19:30 20:00 20:00 Pulse 62 70 Resp 17 18 B/P (MAP) 166/88 (114) 179/94 (122) Pulse Ox 99 99 98 O2 Delivery Ventilator Ventilator Mechanical Ventilator Ventilator 02/20/21 02/20/21 02/20/21 02/20/21 20:00 20:30 21:00 21:30 Temp 99.4 99.4 Pulse 68 66 64 64 Resp 17 16 16 17 B/P (MAP) 174/88 (116) 165/80 (108) 153/72 (99) 149/79 (102) Pulse Ox 99 99 99 99 O2 Delivery Ventilator Ventilator Ventilator Ventilator 02/20/21 02/20/21 02/20/21 02/20/21 22:00 22:30 22:45 23:00 Pulse 70 63 64 Resp 17 21 20 B/P (MAP) 145/76 (99) 157/78 (104) 145/85 (105) Pulse Ox 98 99 95 97 O2 Delivery Ventilator Ventilator Ventilator Ventilator 02/20/21 02/20/21 02/21/21 02/21/21 23:30 23:59 00:00 00:30 Temp 99.6 99.6 Pulse 80 64 64 Resp 16 16 16 B/P (MAP) 156/86 (109) 157/87 (110) 150/90 (110) Pulse Ox 98 99 99 O2 Delivery Ventilator Mechanical Ventilator Ventilator Ventilator 02/21/21 02/21/21 02/21/21 02/21/21 00:48 01:00 01:00 01:18 Pulse 64 Resp 16 16 16 B/P (MAP) 157/86 (109) Pulse Ox 98 100 99 99 O2 Delivery Ventilator Ventilator Ventilator Ventilator 02/21/21 02/21/21 02/21/21 02/21/21 01:30 02:00 02:30 03:00 Pulse 64 64 60 Resp 16 16 16 B/P (MAP) 155/85 (108) 155/90 (111) 162/90 (114) Pulse Ox 99 99 98 98 O2 Delivery Ventilator Ventilator Ventilator Ventilator 02/21/21 02/21/2102/21/02/21/21 03:00 03:30 04:00 04:00 Temp 99.6 99.6 Pulse 60 64 66 Resp 16 16 16 B/P (MAP) 153/83 (106) 143/79 (100) 146/79 (101) Pulse Ox 97 98 99 O2 Delivery Ventilator Ventilator Mechanical Ventilator Ventilator 02/21/21 02/21/2102/21/02/21/21 04:30 05:00 05:30 05:30 Pulse 66 62 62 Resp 16 16 16 B/P (MAP) 152/86 (108) 141/80 (100) 136/80 (98) Pulse Ox 99 99 95 99 O2 Delivery Ventilator Ventilator Ventilator Ventilator 02/21/2102/21/02/21/02/21/21 06:00 07:00 08:00 08:00 Temp 99.0 99.0 Pulse 64 60 64 Resp 16 16 16 B/P (MAP) 139/79 (99) 159/88 (111) 162/86 (111) Pulse Ox 99 99 99 O2 Delivery Ventilator Ventilator Ventilator Mechanical Ventilator 02/21/21 02/21/21 02/21/21 02/21/21 08:31 09:00 10:00 11:00 Pulse 60 60 59 Resp 16 16 16 B/P (MAP) 169/87 (114) 154/81 (105) 138/79 (98) Pulse Ox 95 99 99 99 O2 Delivery Ventilator Ventilator Ventilator Ventilator 02/21/21 02/21/21 02/21/21 02/21/21 11:57 12:00 12:49 13:00 Temp 98.0 98.0 Pulse 60 58 Resp 16 16 B/P (MAP) 134/78 (96) 119/70 (86) Pulse Ox 99 98 99 O2 Delivery Mechanical Ventilator Ventilator Ventilator Ventilator Intake and Output 02/20/21 02/20/21 02/21/21 15:00 23:00 07:00 Intake Total 50 ml 1394 ml 1757 ml Output Total 950 ml 1175 ml 1200 ml Balance -900 ml 219 ml 557 ml Justifications for Admission Other Justification [facility] [employer] [employer] Feb 21, 2021 13:31
--- NOTE | 2021-02-21 13:56 | NUR ---
Pharmacy TPN Dosing Note S: COOPER CHAVEZ is a 61 year old M Currently receiving Central Continuous TPN started 02/11/21 B:Pertinent PMH: ILEUS, UNABLE TO START TUBE FEEDS Height: 6 feet, 2 inches Weight: 115.3 kg Current diet: NPO LABS: Sodium: 142 Potassium: 4.3 Chloride: 108 Calcium: 8.5 Corrected Calcium: 9.94 Magnesium: 2.1 CO2: 23 SCr: 1.2 Glucose: 224 Albumin: 2.2 AST: 60 ALT: 117 TPN FORMULA: TPN TYPE: Central Continuous AMINO ACIDS: 60 gm DEXTROSE: 195 gm LIPIDS: 0 gm SODIUM CHLORIDE: - mEq SODIUM ACETATE: - mEq SODIUM PHOSPHATE: - mmol POTASSIUM CHLORIDE: - mEq POTASSIUM ACETATE: 50 mEq POTASSIUM PHOSPHATE: 13.6 mmol MAGNESIUM: 8 mEq CALCIUM: 10 mEq INSULIN: - units MULTIPLE VITAMIN: 5 ml TRACE ELEMENTS: 1 ml ml(s) TPN PLAN: TG 246, MAG 1.8, WILL INCREASE MAG TO 8 MEQ/BAG, CONT TO HOLD LIPID. R: Continue TPN AT 85 ML/HR Will monitor electrolytes, glucose, and tolerance to TPN. TIFFANIE PORTER [facility], 02/21/21 [id number]
--- NOTE | 2021-02-21 16:12 | NUR ---
SS following up with discharge planning. SS reviewed pt chart and discussed with pt RN. Pt is currently on the vent at 40%. COVID19 negative. TPN. Pt on Propofol, Precedex, and IV Zosyn. Self pay. Med Assist following. Possible trach on Saturday. SS will continue to follow for discharge planning.
[2021-02-21] MEDS: ACETAMINOPHEN 650 MG/20.3 ML SOLUTION. PEG PRN (21:01)
[2021-02-21] MEDS: INSULIN GLARGINE SYRINGE. SQ SCH (21:02)
[2021-02-21] MEDS ORDERED: DEXTROSE 70% IV SCH (22:00)
[2021-02-21] MEDS ORDERED: AMINO ACID IV SCH (22:00)
[2021-02-21] MEDS ORDERED: [UNRECOGNIZED DRUG - OTHER] IV SCH (22:00)
[2021-02-21] MEDS ORDERED: TOTAL PARENTERAL NUTRITION IV SCH (22:00)
[2021-02-22] VITALS (24 sets, daily range): BP systolic 105–213; BP diastolic 50–99
[2021-02-22] MEDS: PIPERACILLIN/TAZOBACTAM 3.375 GM in IV NORMAL SALINE 50ML 50 ML IV SCH ×5 (00:20→23:56)
[2021-02-22] MEDS: INSULIN LISPRO 300 UNITS/3 ML VIAL. SQ SCH ×5 (00:21→23:59)
[2021-02-22] MEDS: PROPOFOL 100 ML IV PRN ×7 (02:19→23:56)
[2021-02-22] MEDS: DEXMEDETOMIDINE 400 MCG in IV NORMAL SALINE 100ML 96 ML IV PRN ×4 (02:31→19:26)
[2021-02-22] MEDS: LABETALOL 20 MG/4 ML DISP.SYRIN. IVP PRN (06:04)
[2021-02-22 06:24] LABS: BASO % 0 % (0-3); EOS # 0.1 x10^3/uL (0.0-0.7); EOS % 1 % (0-3); HEMATOCRIT 33.5 % (39.0-53.0); LYMPH # 1.6 x10^3/uL (1.0-4.8); LYMPH % 17 % (24-48); MEAN CORPUSCULAR HEMOGLOBIN 30 pg (25-35); MEAN CORPUSCULAR HGB CONC 33 g/dL (31-37); MEAN CORPUSCULAR VOLUME 90 fL (79-100); MONO # 0.8 x10^3/uL (0.0-1.1); MONO % 8 % (0-9); NEUT # 7.3 x10^3/uL (1.8-7.7); NEUT % 74 % (31-73); PLATELET COUNT 230 x10^3/uL (140-400); RED BLOOD COUNT 3.71 x10^6/uL (4.30-5.70); RED CELL DISTRIBUTION WIDTH 13.4 % (11.5-14.5); WHITE BLOOD COUNT 9.9 x10^3/uL (4.0-11.0)
[2021-02-22 06:30] LABS: CALCIUM 9.1 mg/dL (8.5-10.1); CREATININE 1.1 mg/dL (0.7-1.3); GFR 82.6; POTASSIUM 4.1 mmol/L (3.5-5.1)
[2021-02-22] MEDS: ACETAMINOPHEN 650 MG/20.3 ML SOLUTION. PEG PRN (08:10)
[2021-02-22] MEDS: hydrALAZINE 20 MG/ML VIAL. IVP PRN (08:11)
--- NOTE | 2021-02-22 08:14 | PDOC ---
Infectious Disease Note Subjective: Subjective Pt remains intubated ,sedated T-max 101.3*F Discussed with nursing staff Vital Signs: Vital Signs Vital Signs Date Time Temp Pulse Resp B/P (MAP) Pulse Ox O2 Delivery O2 Flow Rate FiO2 02/22/21 08:11 59 181/94 02/22/21 07:00 18 98 Ventilator 02/22/21 04:00 99.5 99.5 Physical Exam: PHYSICAL EXAM GENERAL: Sedated, orally intubated gentleman, HEENT: ETT/OGT + NECK: Rt IJ clean LUNGS: Decreased breath sound at bases HEART: S1, S2 bradycardia ABDOMEN: Soft, nontender, no organomegaly. EXTREMITIES: + less edema, no cyanosis. SKIN:no gen rash NEUROLOGIC: unable to assess Medications: Inpatient Meds: Medications reviewed. Labs: Lab Laboratory Tests Test 02/21/21 13:12 02/21/21 17:50 02/21/21 21:01 02/22/21 00:19 Glucose (Fingerstick) 197 mg/dL (70-99) 190 mg/dL (70-99) 197 mg/dL (70-99) 210 mg/dL (70-99) Test 02/22/21 05:40 02/22/21 05:41 White Blood Count 9.9 x10^3/uL (4.0-11.0) Red Blood Count 3.71 x10^6/uL (4.30-5.70) Hemoglobin 11.0 g/dL (13.0-17.5) Hematocrit 33.5 % (39.0-53.0) Mean Corpuscular Volume 90 fL (79-100) Mean Corpuscular Hemoglobin 30 pg (25-35) Mean Corpuscular Hemoglobin Concent 33 g/dL (31-37) Red Cell Distribution Width 13.4 % (11.5-14.5) Platelet Count 230 x10^3/uL (140-400) Neutrophils (%) (Auto) 74 % (31-73) Lymphocytes (%) (Auto) 17 % (24-48) Monocytes (%) (Auto) 8 % (0-9) Eosinophils (%) (Auto) 1 % (0-3) Basophils (%) (Auto) 0 % (0-3) Neutrophils # (Auto) 7.3 x10^3/uL (1.8-7.7) Lymphocytes # (Auto) 1.6 x10^3/uL (1.0-4.8) Monocytes # (Auto) 0.8 x10^3/uL (0.0-1.1) Eosinophils # (Auto) 0.1 x10^3/uL (0.0-0.7) Basophils # (Auto) 0.0 x10^3/uL (0.0-0.2) Sodium Level 140 mmol/L (136-145) Potassium Level 4.1 mmol/L (3.5-5.1) Chloride Level 104 mmol/L (98-107) Carbon Dioxide Level 29 mmol/L (21-32) Anion Gap 7 (6-14) Blood Urea Nitrogen 20 mg/dL (8-26) Creatinine 1.1 mg/dL (0.7-1.3) Estimated GFR (Cockcroft-Gault) 82.6 Glucose Level 205 mg/dL (70-99) Calcium Level 9.1 mg/dL (8.5-10.1) Glucose (Fingerstick) 213 mg/dL (70-99) Objective: Assessment: 1. Fever. 2. Acute hypoxic respiratory failure status post intubation suspected aspiration.sputum cultures NRF 3. Intracranial bleed with mass effect, status post craniotomy and hematoma evacuation. 4. Encephalopathy 5. Respiratory failure. 6. Hypertension. 7. Chronic obstructive pulmonary disease. 8. MARVIN improved U/S BUE to neg for DVT Plan: Plan of Care cont Zosyn add dapto , start Zyvox BC,UA,UC,Sputum g/s and cult DC Central line Monitor labs and cults cont supportive care Awaiting trach tomorrow Discussed with nursing staff RAMU DELGADO MD Feb 22, 2021 08:14
[2021-02-22] MEDS: PANTOPRAZOLE IV PUSH 40 MG VIAL. IVP SCH (08:16)
--- NOTE | 2021-02-22 09:38 | PDOC ---
DATE OF SERVICE DATE: 02/22/21 TIME: 09:37 SUBJECTIVE ROS Remains Intubated OBJECTIVE Vital Signs Vital Signs Date Time Temp Pulse Resp B/P (MAP) Pulse Ox O2 Delivery O2 Flow Rate FiO2 02/22/21 09:00 67 18 161/74 (103) 97 Ventilator 02/22/21 08:00 100.3 100.3 I & 0 Intake and Output 02/22/21 07:00 Intake Total 2367.27 ml Output Total 2945 ml Balance -577.73 ml Intake IV Total 2367.27 ml Output Urine Total 2945 ml PHYSICAL EXAM Physical Exam General Intubated/MV HEEN Intubated Neck Supple Lungs CTA ant CV S1 S2 Abd Soft, NT Ext No LE edema, No cyanosis Moore in place Skin No rash Neuro - exam per neurologist DIAGNOSIS/ASSESSMENT Assessment & Plan MARVIN -ATN Resolved , monitor, Supportive care, Maintain Hydration, Electrolytes stable, Large right temporo-occipital intraparenchymal bleed, most likely lobar hemorrhage s/p craniotomy 02/09 evening HypoKalemia Corrected HypetNatremia- resolved , On TPN Hypertensive emergency POA - Cardene gtt as indicated Acute hypoxic respiratory failure secondary to intracranial hemorrhage and hypertensive emergency. Hypoxia secondary to basilar atelectasis contributed by encephalopathy Long history of tobaccoism. CT angiogram showed bullous emphysema in the upper lobes. Nutrition - TPN COMMENT/RELEVANT DATA Meds Current Medications Medications (Trade) Dose Ordered Sig/Lorraine Start Time Stop Time Status Last Admin Dose Admin Acetaminophen (Tylenol Supp) 650 mg PRN Q6HRS PRN 02/11/21 21:15 Acetaminophen (Tylenol) 650 mg PRN Q6HRS PRN 02/19/21 18:00 02/22/21 08:10 650 MG Albuterol Sulfate (Ventolin Neb Soln) 2.5 mg PRN Q4HRS PRN 02/09/21 15:15 Atropine Sulfate (ATROPINE 0.5mg SYRINGE) 0.5 mg PRN Q5MIN PRN 02/15/21 14:15 Bupivacaine HCl/ Epinephrine Bitart (Sensorcain-Epi 0.5%-1:[id number] Mpf) 30 ml STK-MED ONCE 02/09/21 16:33 02/09/21 16:33 DC 02/09/21 17:49 5 ML Cefazolin Sodium (Ancef) 1 gm STK-MED ONCE 02/09/21 17:28 02/09/21 17:28 DC Cellulose (Surgicel Hemostat 4x8) 1 each STK-MED ONCE 02/09/21 16:33 02/09/21 16:33 DC 02/09/21 18:38 1 EACH Clonidine HCl (Catapres Tts-3) 1 patch WEEKLY 02/13/21 11:00 02/20/21 07:50 1 PATCH Daptomycin 570 mg/ Sodium Chloride 50 ml @ 100 mls/hr Q24H 02/22/21 12:00 Dexmedetomidine HCl 400 mcg/ Sodium Chloride 100 ml @ 0 mls/hr CONT PRN 02/15/21 14:15 02/22/21 09:25 23.4 MLS/HR Dextrose 1,000 ml @ 75 mls/hr [id number] 02/17/21 10:30 02/19/21 12:57 DC 02/18/21 13:51 75 MLS/HR Dextrose (Dextrose 50%-Water Syringe) 12.5 gm PRN Q15MIN PRN 02/12/21 12:15 Fentanyl Citrate 55 ml @ 0 mls/hr CONT PRN 02/10/21 05:00 02/21/21 00:48 1 MLS/HR Fentanyl Citrate (Fentanyl 2ml Vial) 100 mcg STK-MED ONCE 02/09/21 17:43 02/09/21 17:43 DC Furosemide (Lasix) 40 mg 1X ONCE 02/12/21 12:30 02/12/21 12:31 DC 02/12/21 12:44 40 MG Gelatin (Gelfoam Size 100) 1 each STK-MED ONCE 02/09/21 16:33 02/09/21 16:33 DC 02/09/21 17:49 1 EACH Hydralazine HCl (Apresoline Inj) 10 mg PRN Q4HRS PRN 02/14/21 16:00 02/22/21 08:11 10 MG Info (CONTRAST GIVEN -- Rx MONITORING) 1 each PRN DAILY PRN 02/09/21 15:45 02/11/21 15:44 DC Info (Review Meds) 1 ea PRN 1X PRN 02/09/21 15:00 Info (Tpn Per Pharmacy) 1 each PRN DAILY PRN 02/11/21 11:15 02/21/21 12:50 1 EACH Insulin Glargine (Lantus Syringe) 27 unit QHS 02/21/21 21:00 02/21/21 21:02 27 UNIT Insulin Human Lispro (HumaLOG) 0-5 UNITS Q6HRS 02/12/21 12:00 02/22/21 05:42 3 UNITS Iohexol (Omnipaque 350 Mg/ml) 100 ml STK-MED ONCE 02/09/21 15:26 02/09/21 15:27 DC Labetalol HCl (Normodyne Iv Push) 10 mg PRN Q2HR PRN 02/09/21 06:15 02/22/21 06:04 10 MG Lidocaine HCl (Buffered Lidocaine 1%) 6 ml 1X ONCE 02/10/21 13:45 02/10/21 13:46 DC 02/10/21 13:57 3 ML Lidocaine HCl (Lidocaine HCl 2% Abboject) 100 mg 1X ONCE 02/09/21 17:15 02/09/21 17:16 DC Linezolid/Dextrose 300 ml @ 300 mls/hr Q12HR 02/22/21 09:00 02/22/21 09:25 300 MLS/HR Lorazepam (Ativan Inj) 2 mg 1X ONCE 02/09/21 11:00 02/09/21 11:01 DC 02/09/21 11:00 2 MG Magnesium Sulfate 50 ml @ 25 mls/hr 1X ONCE 02/21/21 11:00 02/21/21 12:59 DC 02/21/21 11:30 25 MLS/HR Midazolam HCl 100 ml @ 1 mls/hr CONT PRN 02/11/21 19:30 02/13/21 20:58 5 MLS/HR Nicardipine HCl 50 mg/Sodium Chloride 250 ml @ 12.5 mls/hr CONT PRN 02/09/21 06:15 02/16/21 14:00 50 MLS/HR Pantoprazole Sodium (PROTONIX VIAL for IV PUSH) 40 mg DAILYAC 02/10/21 09:00 02/22/21 08:16 40 MG Piperacillin Sod/ Tazobactam Sod 3.375 gm/Sodium Chloride 50 ml @ 100 mls/hr Q6HRS 02/11/21 09:00 02/22/21 05:32 100 MLS/HR Potassium Chloride/Dextrose/ Sod Cl 1,000 ml @ 80 mls/hr [id number] 02/10/21 09:00 02/10/21 13:21 DC Potassium Chloride/Water 100 ml @ 100 mls/hr Q1H 02/11/21 08:00 02/11/21 09:59 DC 02/11/21 10:07 100 MLS/HR Potassium Acetate 50 meq/Potassium Phosphate 13.6 mmol/Magnesium Sulfate 6 meq/ Calcium Gluconate 10 meq/ Multivitamins 5 ml/Zinc/Copper/ Manganese/ Selenium 1 ml/ Total Parenteral Nutrition/Amino Acids/Dextrose 2,040 ml @ 85 mls/hr TPN CONT 02/20/21 22:00 02/21/21 21:59 DC 02/20/21 22:10 85 MLS/HR Potassium Acetate 50 meq/Potassium Phosphate 13.6 mmol/Magnesium Sulfate 8 meq/ Calcium Gluconate 10 meq/ Multivitamins 5 ml/Zinc/Copper/ Manganese/ Selenium 1 ml/ Total Parenteral Nutrition/Amino Acids/Dextrose 2,040 ml @ 85 mls/hr TPN CONT 02/21/21 22:00 02/22/21 21:59 02/21/21 21:23 85 MLS/HR Propofol 100 ml @ 0 mls/hr CONT PRN PRN 02/09/21 17:15 02/10/21 05:14 DC Propofol (Diprivan) 200 mg 1X ONCE 02/09/21 17:15 02/09/21 17:16 DC Rocuronium [place] (Zemuron) 100 mg STK-MED ONCE 02/09/21 17:58 02/09/21 17:59 DC Sevoflurane (Ultane) 90 ml STK-MED ONCE 02/09/21 19:20 02/09/21 19:21 DC Sodium Chloride 500 ml @ 500 mls/hr 1X PRN PRN 02/15/21 14:15 Sodium Chloride (SODIUM CHLORIDE 20ml) 20 ml STK-MED ONCE 02/09/21 18:50 02/09/21 18:50 DC Sodium Chloride 80 meq/Potassium Chloride 50 meq/ Potassium Phosphate 13.6 mmol/Magnesium Sulfate 6 meq/ Calcium Gluconate 10 meq/ Multivitamins 5 ml/Zinc/Copper/ Manganese/ Selenium 1 ml/ Total Parenteral Nutrition/Amino Acids/Dextrose 1,512 ml @ 63 mls/hr TPN CONT 02/13/21 22:00 02/14/21 21:59 DC 02/13/21 21:42 63 MLS/HR Sodium Chloride 90 meq/Potassium Chloride 50 meq/ Potassium Phosphate 13.6 mmol/Magnesium Sulfate 10 meq/ Calcium Gluconate 10 meq/ Multivitamins 5 ml/Zinc/Copper/ Manganese/ Selenium 1 ml/ Total Parenteral Nutrition/Amino Acids/Dextrose 1,512 ml @ 63 mls/hr TPN CONT 02/11/21 22:00 02/12/21 21:59 DC 02/11/21 22:32 63 MLS/HR Thrombin 20,000 unit STK-MED ONCE 02/09/21 16:33 02/09/21 16:33 DC 02/09/21 17:49 20,000 UNIT Vecuronium [place] (Norcuron Bolus) 10 mg STK-MED ONCE 02/09/21 18:49 02/09/21 18:50 DC Lab Laboratory Tests Test 02/21/21 13:12 02/21/21 17:50 02/21/21 21:01 02/22/21 00:19 Glucose (Fingerstick) 197 mg/dL (70-99) 190 mg/dL (70-99) 197 mg/dL (70-99) 210 mg/dL (70-99) Test 02/22/21 05:40 02/22/21 05:41 White Blood Count 9.9 x10^3/uL (4.0-11.0) Red Blood Count 3.71 x10^6/uL (4.30-5.70) Hemoglobin 11.0 g/dL (13.0-17.5) Hematocrit 33.5 % (39.0-53.0) Mean Corpuscular Volume 90 fL (79-100) Mean Corpuscular Hemoglobin 30 pg (25-35) Mean Corpuscular Hemoglobin Concent 33 g/dL (31-37) Red Cell Distribution Width 13.4 % (11.5-14.5) Platelet Count 230 x10^3/uL (140-400) Neutrophils (%) (Auto) 74 % (31-73) Lymphocytes (%) (Auto) 17 % (24-48) Monocytes (%) (Auto) 8 % (0-9) Eosinophils (%) (Auto) 1 % (0-3) Basophils (%) (Auto) 0 % (0-3) Neutrophils # (Auto) 7.3 x10^3/uL (1.8-7.7) Lymphocytes # (Auto) 1.6 x10^3/uL (1.0-4.8) Monocytes # (Auto) 0.8 x10^3/uL (0.0-1.1) Eosinophils # (Auto) 0.1 x10^3/uL (0.0-0.7) Basophils # (Auto) 0.0 x10^3/uL (0.0-0.2) Sodium Level 140 mmol/L (136-145) Potassium Level 4.1 mmol/L (3.5-5.1) Chloride Level 104 mmol/L (98-107) Carbon Dioxide Level 29 mmol/L (21-32) Anion Gap 7 (6-14) Blood Urea Nitrogen 20 mg/dL (8-26) Creatinine 1.1 mg/dL (0.7-1.3) Estimated GFR (Cockcroft-Gault) 82.6 Glucose Level 205 mg/dL (70-99) Calcium Level 9.1 mg/dL (8.5-10.1) Glucose (Fingerstick) 213 mg/dL (70-99) Results All relevant outside records, renal labs, imaging studies, telemetry/EKG's were reviewed. Justicifation of Admission Dx: Justifications for Admission: Justification of Admission Dx: Yes Acute Hemorrhagic Stroke: Acute Hemorrhagic Stroke YULIA CAMACHO MD Feb 22, 2021 09:38
[2021-02-22] MEDS: DAPTOmycin (GENERIC) IVPB 570 MG in IV NORMAL SALINE 50ML 50 ML IV SCH (11:34)
--- NOTE | 2021-02-22 11:35 | PDOC ---
PULMONARY PROGRESS NOTES DATE: 02/22/21 TIME: 11:33 Subjective PT. remains on AC mode with vent support low grade fever overnight no other concerns from nursing Vitals Vital Signs Date Time Temp Pulse Resp B/P (MAP) Pulse Ox O2 Delivery O2 Flow Rate FiO2 02/22/21 09:00 67 18 161/74 (103) 97 Ventilator 02/22/21 08:00 100.3 100.3 Comments ros unable to obtain intubated on vent Lungs: Clear, Crackles Cardiovascular: S1, S2 Abdomen: Soft, Non-tender Extremities: No Edema Skin: Warm Labs Laboratory Tests Test 02/20/21 12:36 02/20/21 17:13 02/21/21 00:19 02/21/21 06:00 Glucose (Fingerstick) 218 mg/dL (70-99) 213 mg/dL (70-99) 193 mg/dL (70-99) White Blood Count 10.0 x10^3/uL (4.0-11.0) Red Blood Count 3.62 x10^6/uL (4.30-5.70) Hemoglobin 10.9 g/dL (13.0-17.5) Hematocrit 32.8 % (39.0-53.0) Mean Corpuscular Volume 90 fL (79-100) Mean Corpuscular Hemoglobin 30 pg (25-35) Mean Corpuscular Hemoglobin Concent 33 g/dL (31-37) Red Cell Distribution Width 13.7 % (11.5-14.5) Platelet Count 210 x10^3/uL (140-400) Neutrophils (%) (Auto) 76 % (31-73) Lymphocytes (%) (Auto) 15 % (24-48) Monocytes (%) (Auto) 8 % (0-9) Eosinophils (%) (Auto) 2 % (0-3) Basophils (%) (Auto) 1 % (0-3) Neutrophils # (Auto) 7.6 x10^3/uL (1.8-7.7) Lymphocytes # (Auto) 1.4 x10^3/uL (1.0-4.8) Monocytes # (Auto) 0.7 x10^3/uL (0.0-1.1) Eosinophils # (Auto) 0.2 x10^3/uL (0.0-0.7) Basophils # (Auto) 0.0 x10^3/uL (0.0-0.2) Sodium Level 142 mmol/L (136-145) Potassium Level 4.3 mmol/L (3.5-5.1) Chloride Level 108 mmol/L (98-107) Carbon Dioxide Level 27 mmol/L (21-32) Anion Gap 7 (6-14) Blood Urea Nitrogen 20 mg/dL (8-26) Creatinine 0.9 mg/dL (0.7-1.3) Estimated GFR (Cockcroft-Gault) 104.2 Glucose Level 213 mg/dL (70-99) Calcium Level 8.5 mg/dL (8.5-10.1) Phosphorus Level 3.9 mg/dL (2.6-4.7) Magnesium Level 1.8 mg/dL (1.8-2.4) Test 02/21/21 06:03 02/21/21 13:12 02/21/21 17:50 02/21/21 21:01 Glucose (Fingerstick) 224 mg/dL (70-99) 197 mg/dL (70-99) 190 mg/dL (70-99) 197 mg/dL (70-99) Test 02/22/21 00:19 02/22/21 05:40 02/22/21 05:41 Glucose (Fingerstick) 210 mg/dL (70-99) 213 mg/dL (70-99) White Blood Count 9.9 x10^3/uL (4.0-11.0) Red Blood Count 3.71 x10^6/uL (4.30-5.70) Hemoglobin 11.0 g/dL (13.0-17.5) Hematocrit 33.5 % (39.0-53.0) Mean Corpuscular Volume 90 fL (79-100) Mean Corpuscular Hemoglobin 30 pg (25-35) Mean Corpuscular Hemoglobin Concent 33 g/dL (31-37) Red Cell Distribution Width 13.4 % (11.5-14.5) Platelet Count 230 x10^3/uL (140-400) Neutrophils (%) (Auto) 74 % (31-73) Lymphocytes (%) (Auto) 17 % (24-48) Monocytes (%) (Auto) 8 % (0-9) Eosinophils (%) (Auto) 1 % (0-3) Basophils (%) (Auto) 0 % (0-3) Neutrophils # (Auto) 7.3 x10^3/uL (1.8-7.7) Lymphocytes # (Auto) 1.6 x10^3/uL (1.0-4.8) Monocytes # (Auto) 0.8 x10^3/uL (0.0-1.1) Eosinophils # (Auto) 0.1 x10^3/uL (0.0-0.7) Basophils # (Auto) 0.0 x10^3/uL (0.0-0.2) Sodium Level 140 mmol/L (136-145) Potassium Level 4.1 mmol/L (3.5-5.1) Chloride Level 104 mmol/L (98-107) Carbon Dioxide Level 29 mmol/L (21-32) Anion Gap 7 (6-14) Blood Urea Nitrogen 20 mg/dL (8-26) Creatinine 1.1 mg/dL (0.7-1.3) Estimated GFR (Cockcroft-Gault) 82.6 Glucose Level 205 mg/dL (70-99) Calcium Level 9.1 mg/dL (8.5-10.1) Laboratory Tests Test 02/21/21 13:12 02/21/21 17:50 02/21/21 21:01 02/22/21 00:19 Glucose (Fingerstick) 197 mg/dL (70-99) 190 mg/dL (70-99) 197 mg/dL (70-99) 210 mg/dL (70-99) Test 02/22/21 05:40 02/22/21 05:41 White Blood Count 9.9 x10^3/uL (4.0-11.0) Red Blood Count 3.71 x10^6/uL (4.30-5.70) Hemoglobin 11.0 g/dL (13.0-17.5) Hematocrit 33.5 % (39.0-53.0) Mean Corpuscular Volume 90 fL (79-100) Mean Corpuscular Hemoglobin 30 pg (25-35) Mean Corpuscular Hemoglobin Concent 33 g/dL (31-37) Red Cell Distribution Width 13.4 % (11.5-14.5) Platelet Count 230 x10^3/uL (140-400) Neutrophils (%) (Auto) 74 % (31-73) Lymphocytes (%) (Auto) 17 % (24-48) Monocytes (%) (Auto) 8 % (0-9) Eosinophils (%) (Auto) 1 % (0-3) Basophils (%) (Auto) 0 % (0-3) Neutrophils # (Auto) 7.3 x10^3/uL (1.8-7.7) Lymphocytes # (Auto) 1.6 x10^3/uL (1.0-4.8) Monocytes # (Auto) 0.8 x10^3/uL (0.0-1.1) Eosinophils # (Auto) 0.1 x10^3/uL (0.0-0.7) Basophils # (Auto) 0.0 x10^3/uL (0.0-0.2) Sodium Level 140 mmol/L (136-145) Potassium Level 4.1 mmol/L (3.5-5.1) Chloride Level 104 mmol/L (98-107) Carbon Dioxide Level 29 mmol/L (21-32) Anion Gap 7 (6-14) Blood Urea Nitrogen 20 mg/dL (8-26) Creatinine 1.1 mg/dL (0.7-1.3) Estimated GFR (Cockcroft-Gault) 82.6 Glucose Level 205 mg/dL (70-99) Calcium Level 9.1 mg/dL (8.5-10.1) Glucose (Fingerstick) 213 mg/dL (70-99) Comments CXR 02/21/21 IMPRESSION: 1. Stable life support devices. 2. Improving bibasilar opacities.. CXR 02/18/21 IMPRESSION: Unchanged bibasilar opacities. Recommend follow-up to ensure resolution, particularly of focal opacities in the right lung base. CXR 02/17/21 IMPRESSION: 1. Stable life support devices. 2. Stable bibasilar opacities. 3. Stable small left pleural effusion. IMPRESSION: Chest x-ray 02/13 1. Stable support lines and tubes. 2. Severe right upper lobe predominant bullous emphysema. 3. Stable right perihilar linear atelectasis or infiltrate superimposed on diffuse interstitial prominence and small pleural effusions. Impression . IMPRESSION: 1. Acute hypoxic respiratory failure multifactorial 2. Abnormal x-ray 3. Long history of tobaccoism. CT angiogram showed bullous emphysema in the upper lobes. 3. Acute kidney injury--resolved 4. Leukocytosis--resolved 5. s/p Right occipital craniotomy with evacuation of intracerebral hematoma. 02/09/21 6. Encephalopathy, multifactorial--ongoing 7. Uncontrolled hypertension 8. Fever, per ID CT head 02/13, discussed with Dr. Louie IMPRESSION: 1. Expected interval evolution of a right posterior temporal/occipital in traparenchymal hematoma status post decompressive craniotomy. 2. Expected evolution of a small amount of subarachnoid and intraventricular clot. DATE OF SURGERY: 02/09/2021 PREOPERATIVE DIAGNOSIS: Right posterior temporoparietal occipital intracerebral hemorrhage with neurologic deterioration. POSTOPERATIVE DIAGNOSIS: Right posterior temporoparietal occipital intracerebral hemorrhage with neurologic deterioration. OPERATION PERFORMED: Right occipital craniotomy with evacuation of intracerebral hematoma. Plan . Updated 02/22/21 Continue current vent support A/C mode rate of 16 at 40% Follow ABG/CXR-- no changes Follow ENT recs for trach-- plan for am Follow ID recs for ABX on zosyn Follow Cardiology recs Follow neurosurgery recs-- S/P Right occipital craniotomy with evacuation of intracerebral hematoma--02/09/21 TPN for nutritional support Hyperglycemia per PCP DVT/GI PPX D/W RN and RT Social work for LTAC transfer post trach Updated 02/21/21 Continue current vent support A/C mode rate of 16 at 40% Follow ABG/CXR-- no changes Follow ENT recs for trach-- plan for Saturday Follow ID recs for ABX on zosyn Follow Cardiology recs Follow neurosurgery recs-- S/P Right occipital craniotomy with evacuation of intracerebral hematoma--02/09/21 TPN for nutritional support Hyperglycemia per PCP DVT/GI PPX D/W RN and RT Social work for DC planning Updated 02/20 General surgery unavailable for trach We will consult ENT Antibiotics per ID Patient had a T-max yesterday 100.2 DVT GI prophylaxis A.m. ABG and chest x-ray UPDATED 02/19/21 Continue current vent support A/C mode Follow surgery recs for trach-- plan for next week Follow ID recs for ABX on zosyn Follow Cardiology recs Follow neurosurgery recs-- POD#11 S/P Right occipital craniotomy with evacuation of intracerebral hematoma TPN for nutritional support Hyperglycemia per PCP Cardene gtt for HTN PRN DVT/GI PPX D/W RN and RT Social work for DC planning RAJIV HORNE MD Feb 22, 2021 11:35
--- NOTE | 2021-02-22 12:37 | PDOC ---
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 02/09/21 sedated on vent fever overnight Objective Objective Vital Signs Date Time Temp Pulse Resp B/P (MAP) Pulse Ox O2 Delivery O2 Flow Rate FiO2 02/22/21 11:43 99 Ventilator 02/22/21 09:00 67 18 161/74 (103) 02/22/21 08:00 100.3 100.3 Intake and Output 02/22/21 07:00 Intake Total 2367.27 ml Output Total 2945 ml Balance -577.73 ml Intake IV Total 2367.27 ml Output Urine Total 2945 ml Physical Exam General: Other (sedated, vent) Skin: Other (dressing C,D,I) Plan Plan of Care BP control wean sedation as tolerated trach tomorrrow Comment Review of Relevant I have reviewed the following items neela (where applicable) has been applied. Labs Laboratory Tests Test 02/20/21 12:36 02/20/21 17:13 02/21/21 00:19 02/21/21 06:00 Glucose (Fingerstick) 218 mg/dL (70-99) 213 mg/dL (70-99) 193 mg/dL (70-99) White Blood Count 10.0 x10^3/uL (4.0-11.0) Red Blood Count 3.62 x10^6/uL (4.30-5.70) Hemoglobin 10.9 g/dL (13.0-17.5) Hematocrit 32.8 % (39.0-53.0) Mean Corpuscular Volume 90 fL (79-100) Mean Corpuscular Hemoglobin 30 pg (25-35) Mean Corpuscular Hemoglobin Concent 33 g/dL (31-37) Red Cell Distribution Width 13.7 % (11.5-14.5) Platelet Count 210 x10^3/uL (140-400) Neutrophils (%) (Auto) 76 % (31-73) Lymphocytes (%) (Auto) 15 % (24-48) Monocytes (%) (Auto) 8 % (0-9) Eosinophils (%) (Auto) 2 % (0-3) Basophils (%) (Auto) 1 % (0-3) Neutrophils # (Auto) 7.6 x10^3/uL (1.8-7.7) Lymphocytes # (Auto) 1.4 x10^3/uL (1.0-4.8) Monocytes # (Auto) 0.7 x10^3/uL (0.0-1.1) Eosinophils # (Auto) 0.2 x10^3/uL (0.0-0.7) Basophils # (Auto) 0.0 x10^3/uL (0.0-0.2) Sodium Level 142 mmol/L (136-145) Potassium Level 4.3 mmol/L (3.5-5.1) Chloride Level 108 mmol/L (98-107) Carbon Dioxide Level 27 mmol/L (21-32) Anion Gap 7 (6-14) Blood Urea Nitrogen 20 mg/dL (8-26) Creatinine 0.9 mg/dL (0.7-1.3) Estimated GFR (Cockcroft-Gault) 104.2 Glucose Level 213 mg/dL (70-99) Calcium Level 8.5 mg/dL (8.5-10.1) Phosphorus Level 3.9 mg/dL (2.6-4.7) Magnesium Level 1.8 mg/dL (1.8-2.4) Test 02/21/21 06:03 02/21/21 13:12 02/21/21 17:50 02/21/21 21:01 Glucose (Fingerstick) 224 mg/dL (70-99) 197 mg/dL (70-99) 190 mg/dL (70-99) 197 mg/dL (70-99) Test 02/22/21 00:19 02/22/21 05:40 02/22/21 05:41 Glucose (Fingerstick) 210 mg/dL (70-99) 213 mg/dL (70-99) White Blood Count 9.9 x10^3/uL (4.0-11.0) Red Blood Count 3.71 x10^6/uL (4.30-5.70) Hemoglobin 11.0 g/dL (13.0-17.5) Hematocrit 33.5 % (39.0-53.0) Mean Corpuscular Volume 90 fL (79-100) Mean Corpuscular Hemoglobin 30 pg (25-35) Mean Corpuscular Hemoglobin Concent 33 g/dL (31-37) Red Cell Distribution Width 13.4 % (11.5-14.5) Platelet Count 230 x10^3/uL (140-400) Neutrophils (%) (Auto) 74 % (31-73) Lymphocytes (%) (Auto) 17 % (24-48) Monocytes (%) (Auto) 8 % (0-9) Eosinophils (%) (Auto) 1 % (0-3) Basophils (%) (Auto) 0 % (0-3) Neutrophils # (Auto) 7.3 x10^3/uL (1.8-7.7) Lymphocytes # (Auto) 1.6 x10^3/uL (1.0-4.8) Monocytes # (Auto) 0.8 x10^3/uL (0.0-1.1) Eosinophils # (Auto) 0.1 x10^3/uL (0.0-0.7) Basophils # (Auto) 0.0 x10^3/uL (0.0-0.2) Sodium Level 140 mmol/L (136-145) Potassium Level 4.1 mmol/L (3.5-5.1) Chloride Level 104 mmol/L (98-107) Carbon Dioxide Level 29 mmol/L (21-32) Anion Gap 7 (6-14) Blood Urea Nitrogen 20 mg/dL (8-26) Creatinine 1.1 mg/dL (0.7-1.3) Estimated GFR (Cockcroft-Gault) 82.6 Glucose Level 205 mg/dL (70-99) Calcium Level 9.1 mg/dL (8.5-10.1) Laboratory Tests Test 02/21/21 13:12 02/21/21 17:50 02/21/21 21:01 02/22/21 00:19 Glucose (Fingerstick) 197 mg/dL (70-99) 190 mg/dL (70-99) 197 mg/dL (70-99) 210 mg/dL (70-99) Test 02/22/21 05:40 02/22/21 05:41 White Blood Count 9.9 x10^3/uL (4.0-11.0) Red Blood Count 3.71 x10^6/uL (4.30-5.70) Hemoglobin 11.0 g/dL (13.0-17.5) Hematocrit 33.5 % (39.0-53.0) Mean Corpuscular Volume 90 fL (79-100) Mean Corpuscular Hemoglobin 30 pg (25-35) Mean Corpuscular Hemoglobin Concent 33 g/dL (31-37) Red Cell Distribution Width 13.4 % (11.5-14.5) Platelet Count 230 x10^3/uL (140-400) Neutrophils (%) (Auto) 74 % (31-73) Lymphocytes (%) (Auto) 17 % (24-48) Monocytes (%) (Auto) 8 % (0-9) Eosinophils (%) (Auto) 1 % (0-3) Basophils (%) (Auto) 0 % (0-3) Neutrophils # (Auto) 7.3 x10^3/uL (1.8-7.7) Lymphocytes # (Auto) 1.6 x10^3/uL (1.0-4.8) Monocytes # (Auto) 0.8 x10^3/uL (0.0-1.1) Eosinophils # (Auto) 0.1 x10^3/uL (0.0-0.7) Basophils # (Auto) 0.0 x10^3/uL (0.0-0.2) Sodium Level 140 mmol/L (136-145) Potassium Level 4.1 mmol/L (3.5-5.1) Chloride Level 104 mmol/L (98-107) Carbon Dioxide Level 29 mmol/L (21-32) Anion Gap 7 (6-14) Blood Urea Nitrogen 20 mg/dL (8-26) Creatinine 1.1 mg/dL (0.7-1.3) Estimated GFR (Cockcroft-Gault) 82.6 Glucose Level 205 mg/dL (70-99) Calcium Level 9.1 mg/dL (8.5-10.1) Glucose (Fingerstick) 213 mg/dL (70-99) Microbiology 02/11/21 Blood Culture - Final, Complete NO GROWTH AFTER 5 DAYS 02/11/21 Gram Stain Evaluation - Final, Complete 02/11/21 Respiratory Culture - Final, Complete Medications Current Medications Nicardipine HCl 50 mg/Sodium Chloride 250 ml @ 12.5 mls/hr CONT PRN IV SEE I/O RECORD Last administered on 02/16/21at 14:00; Start 02/09/21 at 06:15 Labetalol HCl (Normodyne Iv Push) 10 mg PRN Q2HR PRN IVP HYPERTENSION- 1ST CHOICE Last administered on 02/22/21at 06:04; Start 02/09/21 at 06:15 Lorazepam (Ativan Inj) 2 mg 1X ONCE IVP Last administered on 02/09/21at 10:54; Start 02/09/21 at 10:45; Stop 02/09/21 at 10:46; Status DC Lorazepam (Ativan Inj) 2 mg 1X ONCE IVP Last administered on 02/09/21at 11:00; Start 02/09/21 at 11:00; Stop 02/09/21 at 11:01; Status DC Fentanyl Citrate (Fentanyl 2ml Vial) 25 mcg PRN Q2HR PRN IVP MODERATE TO SEVERE PAIN Last administered on 02/09/21at 13:37; Start 02/09/21 at 13:30; Stop 02/18/21 at 22:53; Status DC Info (Review Meds) 1 ea PRN 1X PRN MC SEE COMMENTS; Start 02/09/21 at 15:00 Acetaminophen (Tylenol Supp) 650 mg PRN Q6HRS PRN AL FEVER > 100.5'F or 38'C; Start 02/09/21 at 15:00; Stop 02/11/21 at 21:12; Status DC Albuterol Sulfate (Ventolin Neb Soln) 2.5 mg PRN Q4HRS PRN NEB SHORTNESS OF BREATH; Start 02/09/21 at 15:15 Iohexol (Omnipaque 350 Mg/ml) 75 ml 1X ONCE IV Last administered on 02/09/21at 15:52; Start 02/09/21 at 15:30; Stop 02/09/21 at 15:35; Status DC Iohexol (Omnipaque 350 Mg/ml) 100 ml STK-MED ONCE .ROUTE ; Start 02/09/21 at 15:26; Stop 02/09/21 at 15:27; Status DC Info (CONTRAST GIVEN -- Rx MONITORING) 1 each PRN DAILY PRN MC SEE COMMENTS; Start 02/09/21 at 15:45; Stop 02/11/21 at 15:44; Status DC Propofol 100 ml @ As Directed STK-MED ONCE IV ; Start 02/09/21 at 15:51; Stop 02/09/21 at 15:51; Status DC Rocuronium [place] (Zemuron) 50 mg STK-MED ONCE .ROUTE ; Start 02/09/21 at 15:51; Stop 02/09/21 at 15:51; Status DC Lidocaine HCl (Lidocaine HCl 2% Abboject) 100 mg STK-MED ONCE .ROUTE ; Start 02/09/21 at 15:52; Stop 02/09/21 at 15:53; Status DC Propofol 100 ml @ 3.507 mls/ hr CONT PRN IV PER PROTOCOL Last administered on 02/22/21at 12:10; Start 02/09/21 at 16:15 Lidocaine HCl (Lidocaine HCl 2% Abboject) 100 mg 1X ONCE IV Last administered on 02/09/21 16:17; Start 02/09/21 at 16:15; Stop 02/09/21 at 16:17; Status DC Rocuronium [place] (Zemuron) 50 mg 1X ONCE IV Last administered on 02/09/21 16:17; Start 02/09/21 at 16:15; Stop 02/09/21 at 16:17; Status DC Rocuronium [place] (Zemuron) 100 mg STK-MED ONCE .ROUTE ; Start 02/09/21 at 16:31; Stop 02/09/21 at 16:32; Status DC Gelatin (Gelfoam Size 100) 1 each STK-MED ONCE .ROUTE Last administered on 02/09/21 17:49; Start 02/09/21 at 16:33; Stop 02/09/21 at 16:33; Status DC Bupivacaine HCl/ Epinephrine Bitart (Sensorcain-Epi 0.5%-1:563020 Mpf) 30 ml STK-MED ONCE .ROUTE Last administered on 02/09/21 17:49; Start 02/09/21 at 16:33; Stop 02/09/21 at 16:33; Status DC Cellulose (Surgicel Hemostat 4x8) 1 each STK-MED ONCE .ROUTE Last administered on 02/09/21 18:38; Start 02/09/21 at 16:33; Stop 02/09/21 at 16:33; Status DC Thrombin 20,000 unit STK-MED ONCE TP Last administered on 02/09/21 17:49; Start 02/09/21 at 16:33; Stop 02/09/21 at 16:33; Status DC Fentanyl Citrate (Fentanyl 2ml Vial) 75 mcg 1X ONCE IVP Last administered on 02/09/21at 16:45; Start 02/09/21 at 16:45; Stop 02/09/21 at 16:47; Status DC Propofol (Diprivan) 200 mg 1X ONCE IV ; Start 02/09/21 at 17:15; Stop 02/09/21 at 17:16; Status DC Lidocaine HCl (Lidocaine HCl 2% Abboject) 100 mg 1X ONCE IV ; Start 02/09/21 at 17:15; Stop 02/09/21 at 17:16; Status DC Rocuronium [place] (Zemuron) 50 mg 1X ONCE IV ; Start 02/09/21 at 17:15; Stop 02/09/21 at 17:16; Status DC Propofol 100 ml @ 0 mls/hr CONT PRN PRN IV SEDATION; Start 02/09/21 at 17:15; S top 02/10/21 at 05:14; Status DC Cefazolin Sodium (Ancef) 1 gm STK-MED ONCE IVP ; Start 02/09/21 at 17:28; Stop 02/09/21 at 17:28; Status DC Fentanyl Citrate (Fentanyl 2ml Vial) 100 mcg STK-MED ONCE .ROUTE ; Start 02/09/21 at 17:43; Stop 02/09/21 at 17:43; Status DC Rocuronium [place] (Zemuron) 100 mg STK-MED ONCE .ROUTE ; Start 02/09/21 at 17:58; Stop 02/09/21 at 17:59; Status DC Vecuronium [place] (Norcuron Bolus) 10 mg STK-MED ONCE IV ; Start 02/09/21 at 18:49; Stop 02/09/21 at 18:50; Status DC Sodium Chloride (SODIUM CHLORIDE 20ml) 20 ml STK-MED ONCE IJ ; Start 02/09/21 at 18:50; Stop 02/09/21 at 18:50; Status DC Sevoflurane (Ultane) 90 ml STK-MED ONCE IH ; Start 02/09/21 at 19:20; Stop 02/09/21 at 19:21; Status DC Fentanyl Citrate 30 ml @ 2.5 mls/hr CONT PRN IV SEE PROTOCOL Last administered on 02/09/21at 23:40; Start 02/09/21 at 23:15; Stop 02/10/21 at 04:43; Status DC Fentanyl Citrate 55 ml @ 0 mls/hr CONT PRN IV SEE I/O Last administered on 02/21/21at 00:48; Start 02/10/21 at 05:00 Potassium Chloride/Dextrose/ Sod Cl 1,000 ml @ 80 mls/hr [id number] IV ; Start 02/10/21 at 09:00; Stop 02/10/21 at 13:21; Status DC Pantoprazole Sodium (PROTONIX VIAL for IV PUSH) 40 mg DAILYAC IVP Last administered on 02/22/21at 08:16; Start 02/10/21 at 09:00 Lidocaine HCl (Buffered Lidocaine 1%) 3 ml STK-MED ONCE .ROUTE ; Start 02/10/21 at 13:18; Stop 02/10/21 at 13:18; Status DC Sodium Chloride 1,000 ml @ 80 mls/hr [id number] IV Last administered on 02/12/21at 03:00; Start 02/10/21 at 13:30; Stop 02/12/21 at 15:36; Status DC Lidocaine HCl (Buffered Lidocaine 1%) 6 ml 1X ONCE INJ Last administered on 02/10/21at 13:57; Start 02/10/21 at 13:45; Stop 02/10/21 at 13:46; Status DC Potassium Chloride/Water 100 ml @ 100 mls/hr Q1H IV Last administered on 02/11/21at 10:07; Start 02/11/21 at 08:00; Stop 02/11/21 at 09:59; Status DC Piperacillin Sod/ Tazobactam Sod 3.375 gm/Sodium Chloride 50 ml @ 100 mls/hr Q6HRS IV Last administered on 02/22/21at 12:09; Start 02/11/21 at 09:00 Info (Tpn Per Pharmacy) 1 each PRN DAILY PRN MC SEE COMMENTS Last administered on 02/21/21at 12:50; Start 02/11/21 at 11:15 Sodium Chloride 90 meq/Potassium Chloride 50 meq/ Potassium Phosphate 13.6 mmol/Magnesium Sulfate 10 meq/ Calcium Gluconate 10 meq/ Multivitamins 5 ml/Zinc/Copper/ Manganese/ Selenium 1 ml/ Total Parenteral Nutrition/Amino Acids/Dextrose 1,512 ml @ 63 mls/hr TPN CONT IV Last administered on 02/11/21at 22:32; Start 02/11/21 at 22:00; Stop 02/12/21 at 21:59; Status DC Furosemide (Lasix) 20 mg 1X ONCE IVP Last administered on 02/11/21at 15:11; Start 02/11/21 at 15:30; Stop 02/11/21 at 15:31; Status DC Furosemide (Lasix) 20 mg 1X ONCE IVP Last administered on 02/11/21at 17:00; Start 02/11/21 at 17:00; Stop 02/11/21 at 17:01; Status DC Midazolam HCl 100 ml @ 1 mls/hr CONT PRN IV SEE PROTOCOL Last administered on 02/13/21at 20:58; Start 02/11/21 at 19:30 Acetaminophen (Tylenol Supp) 650 mg PRN Q6HRS PRN AL MILD PAIN / TEMP > 100. 3'F; Start 02/11/21 at 21:15 Sodium Chloride 80 meq/Potassium Chloride 50 meq/ Potassium Phosphate 13.6 mmol/Magnesium Sulfate 6 meq/ Calcium Gluconate 10 meq/ Multivitamins 5 ml/Zinc/Copper/ Manganese/ Selenium 1 ml/ Total Parenteral Nutrition/Amino Acids /Dextrose 1,512 ml @ 63 mls/hr TPN CONT IV Last administered on 02/12/21at 22:09; Start 02/12/21 at 22:00; Stop 02/13/21 at 21:59; Status DC Furosemide (Lasix) 40 mg 1X ONCE IVP Last administered on 02/12/21at 12:44; Start 02/12/21 at 12:30; Stop 02/12/21 at 12:31; Status DC Insulin Human Lispro (HumaLOG) 0-5 UNITS Q6HRS SQ Last administered on 02/22/21at 05:42; Start 02/12/21 at 12:00 Dextrose (Dextrose 50%-Water Syringe) 12.5 gm PRN Q15MIN PRN IV SEE COMMENTS; Start 02/12/21 at 12:15 Clonidine HCl (Catapres Tts-3) 1 patch WEEKLY TD Last administered on 02/20/21at 07:50; Start 02/13/21 at 11:00 Sodium Chloride 80 meq/Potassium Chloride 50 meq/ Potassium Phosphate 13.6 mmol/Magnesium Sulfate 6 meq/ Calcium Gluconate 10 meq/ Multivitamins 5 ml/Zinc/Copper/ Manganese/ Selenium 1 ml/ Total Parenteral Nutrition/Amino Acids/Dextrose 1,512 ml @ 63 mls/hr TPN CONT IV Last administered on 02/13/21at 21:42; Start 02/13/21 at 22:00; Stop 02/14/21 at 21:59; Status DC Potassium Acetate 50 meq/Potassium Phosphate 13.6 mmol/Magnesium Sulfate 6 meq/ Calcium Gluconate 10 meq/ Multivitamins 5 ml/Zinc/Copper/ Manganese/ Selenium 1 ml/ Total Parenteral Nutrition/Amino Acids/Dextrose 1,512 ml @ 63 mls/hr TPN CONT IV Last administered on 02/14/21at 21:59; Start 02/14/21 at 22:00; Stop 02/15/21 at 21:59; Status DC Insulin Glargine (Lantus Syringe) 10 unit QHS SQ Last administered on 02/15/21at 22:11; Start 02/14/21 at 21:00; Stop 02/16/21 at 12:42; Status DC Hydralazine HCl (Apresoline Inj) 10 mg PRN Q4HRS PRN IVP ELEVATED BP, SEE COMMENTS Last administered on 02/22/21at 08:11; Start 02/14/21 at 16:00 Potassium Acetate 50 meq/Potassium Phosphate 13.6 mmol/Magnesium Sulfate 6 meq/ Calcium Gluconate 10 meq/ Multivitamins 5 ml/Zinc/Copper/ Manganese/ Selenium 1 ml/ Total Parenteral Nutrition/Amino Acids/Dextrose 1,512 ml @ 63 mls/hr TPN CONT IV Last administered on 02/15/21at 22:13; Start 02/15/21 at 22:00; Stop 02/16/21 at 21:59; Status DC Dexmedetomidine HCl 400 mcg/ Sodium Chloride 100 ml @ 0 mls/hr CONT PRN IV PER PROTOCOL Last administered on 02/22/21at 09:25; Start 02/15/21 at 14:15 Sodium Chloride 500 ml @ 500 mls/hr 1X PRN PRN IV SEE COMMENTS; Start 02/15/21 at 14:15 Atropine Sulfate (ATROPINE 0.5mg SYRINGE) 0.5 mg PRN Q5MIN PRN IV SEE COMMENTS; Start 02/15/21 at 14:15 Potassium Acetate 50 meq/Potassium Phosphate 13.6 mmol/Magnesium Sulfate 6 meq/ Calcium Gluconate 10 meq/ Multivitamins 5 ml/Zinc/Copper/ Manganese/ Selenium 1 ml/ Total Parenteral Nutrition/Amino Acids/Dextrose 1,512 ml @ 63 mls/hr TPN CONT IV Last administered on 02/16/21at 22:59; Start 02/16/21 at 22:00; Stop 02/17/21 at 21:59; Status DC Insulin Glargine (Lantus Syringe) 14 unit QHS SQ Last administered on 02/16/21at 21:14; Start 02/16/21 at 21:00; Stop 02/17/21 at 14:15; Status DC Potassium Acetate 50 meq/Potassium Phosphate 13.6 mmol/Magnesium Sulfate 6 meq/ Calcium Gluconate 10 meq/ Multivitamins 5 ml/Zinc/Copper/ Manganese/ Selenium 1 ml/ Total Parenteral Nutrition/Amino Acids/Dextrose 1,512 ml @ 63 mls/hr TPN CONT IV Last administered on 02/17/21at 20:48; Start 02/17/21 at 22:00; Stop 02/18/21 at 21:59; Status DC Dextrose 1,000 ml @ 75 mls/hr [id number] IV Last administered on 02/18/21at 13:51; Start 02/17/21 at 10:30; Stop 02/19/21 at 12:57; Status DC Insulin Glargine (Lantus Syringe) 18 unit QHS SQ Last administered on 02/17/21at 20:46; Start 02/17/21 at 21:00; Stop 02/18/21 at 11:56; Status DC Insulin Glargine (Lantus Syringe) 22 unit QHS SQ Last administered on 02/18/21at 21:00; Start 02/18/21 at 21:00; Stop 02/19/21 at 14:08; Status DC Potassium Acetate 50 meq/Potassium Phosphate 13.6 mmol/Magnesium Sulfate 6 meq/ Calcium Gluconate 10 meq/ Multivitamins 5 ml/Zinc/Copper/ Manganese/ Selenium 1 ml/ Total Parenteral Nutrition/Amino Acids/Dextrose 1,512 ml @ 63 mls/hr TPN CONT IV Last administered on 02/18/21at 21:43; Start 02/18/21 at 22:00; Stop 02/19/21 at 21:59; Status DC Potassium Acetate 50 meq/Potassium Phosphate 13.6 mmol/Magnesium Sulfate 6 meq/ Calcium Gluconate 10 meq/ Multivitamins 5 ml/Zinc/Copper/ Manganese/ Selenium 1 ml/ Total Parenteral Nutrition/Amino Acids/Dextrose 2,040 ml @ 85 mls/hr TPN CONT IV Last administered on 02/19/21at 20:56; Start 02/19/21 at 22:00; Stop 02/20/21 at 21:59; Status DC Insulin Glargine (Lantus Syringe) 25 unit QHS SQ Last administered on 02/20/21at 22:11; Start 02/19/21 at 21:00; Stop 02/21/21 at 10:10; Status DC Acetaminophen (Tylenol) 650 mg PRN Q6HRS PRN PEG MILD PAIN / TEMP > 100.3'F Last administered on 02/22/21at 08:10; Start 02/19/21 at 18:00 Potassium Acetate 50 meq/Potassium Phosphate 13.6 mmol/Magnesium Sulfate 6 meq/ Calcium Gluconate 10 meq/ Multivitamins 5 ml/Zinc/Copper/ Manganese/ Selenium 1 ml/ Total Parenteral Nutrition/Amino Acids/Dextrose 2,040 ml @ 85 mls/hr TPN CONT IV Last administered on 02/20/21at 22:10; Start 02/20/21 at 22:00; Stop 02/21/21 at 21:59; Status DC Insulin Glargine (Lantus Syringe) 27 unit QHS SQ Last administered on 02/21/21at 21:02; Start 02/21/21 at 21:00 Magnesium Sulfate 50 ml @ 25 mls/hr 1X ONCE IV Last administered on 02/21/21at 11:30; Start 02/21/21 at 11:00; Stop 02/21/21 at 12:59; Status DC Potassium Acetate 50 meq/Potassium Phosphate 13.6 mmol/Magnesium Sulfate 8 meq/ Calcium Gluconate 10 meq/ Multivitamins 5 ml/Zinc/Copper/ Manganese/ Selenium 1 ml/ Total Parenteral Nutrition/Amino Acids/Dextrose 2,040 ml @ 85 mls/hr TPN CONT IV Last administered on 02/21/21at 21:23; Start 02/21/21 at 22:00; Stop 02/22/21 at 21:59 Daptomycin 570 mg/ Sodium Chloride 50 ml @ 100 mls/hr Q24H IV Last administered on 02/22/21at 11:34; Start 02/22/21 at 12:00 Linezolid/Dextrose 300 ml @ 300 mls/hr Q12HR IV Last administered on 02/22/21at 09:25; Start 02/22/21 at 09:00 Vitals/I & O Vital Sign - Last 24 Hours 02/21/21 02/21/21 02/21/21 02/21/21 12:49 13:00 13:45 14:00 Pulse 58 60 Resp 16 16 B/P (MAP) 119/70 (86) 139/81 (100) Pulse Ox 98 99 97 99 O2 Delivery Ventilator Ventilator Ventilator Ventilator 02/21/21 02/21/21 02/21/21 02/21/21 15:00 16:00 16:00 16:46 Temp 99.1 99.1 Pulse 62 62 Resp 16 16 B/P (MAP) 140/82 (101) 148/86 (106) Pulse Ox 99 99 99 O2 Delivery Ventilator Ventilator Mechanical Ventilator Ventilator 02/21/21 02/21/21 02/21/21 02/21/21 17:00 18:00 19:00 20:00 Temp 101.3 101.3 Pulse 64 70 81 67 Resp 16 16 18 21 B/P (MAP) 156/86 (109) 163/92 (115) 162/87 (112) 157/88 (111) Pulse Ox 99 99 98 98 O2 Delivery Ventilator Ventilator Ventilator Ventilator 02/21/21 02/21/21 02/21/21 02/21/21 20:00 20:24 21:00 22:00 Pulse 77 73 Resp 27 18 B/P (MAP) 159/89 (112) 154/80 (104) Pulse Ox 97 99 97 O2 Delivery Mechanical Ventilator Ventilator Ventilator Ventilator 02/21/21 02/21/21 02/22/21 02/22/21 23:00 23:14 00:00 00:00 Temp 100.8 100.8 Pulse 69 69 Resp 19 23 B/P (MAP) 158/85 (109) 157/85 (109) Pulse Ox 98 98 97 O2 Delivery Ventilator Ventilator Mechanical Ventilator Ventilator 02/22/21 02/22/21 02/22/21 02/22/21 01:00 02:00 02:29 03:00 Pulse 70 60 64 Resp 18 21 B/P (MAP) 146/87 (106) 154/94 (114) 149/50 (83) Pulse Ox 98 99 98 99 O2 Delivery Ventilator Ventilator Ventilator Ventilator 02/22/21 02/22/21 02/22/21 02/22/21 03:45 04:00 05:00 05:00 Temp 99.5 99.5 Pulse 59 64 Resp 18 24 B/P (MAP) 150/88 (108) 181/98 (125) Pulse Ox 98 98 95 O2 Delivery Mechanical Ventilator Ventilator Ventilator Ventilator 02/22/21 02/22/21 02/22/21 02/22/21 06:00 06:04 07:00 08:00 Temp 100.3 100.3 Pulse 66 63 64 64 Resp 20 18 18 B/P (MAP) 213/99 (137) 213/99 164/87 (112) 196/75 (115) Pulse Ox 99 98 98 O2 Delivery Ventilator Ventilator Ventilator 02/22/21 02/22/21 02/22/21 02/22/21 08:00 08:11 08:13 09:00 Pulse 59 67 Resp 18 B/P (MAP) 181/94 161/74 (103) Pulse Ox 99 97 O2 Delivery Mechanical Ventilator Ventilator Ventilator 02/22/21 11:43 Pulse Ox 99 O2 Delivery Ventilator Intake and Output 02/21/21 02/21/21 02/22/21 15:00 23:00 07:00 Intake Total 1537.27 ml 830 ml Output Total 850 ml 1320 ml 775 ml Balance -850 ml 217.27 ml 55 ml Justifications for Admission Other Justification HILDA [employer]OCK [employer] Feb 22, 2021 12:37
[2021-02-22 13:23] LABS: BILIRUBIN,URINE NEGATIVE (NEG); CLARITY,URINE CLEAR; COLOR,URINE YELLOW; NITRITE,URINE NEGATIVE (NEG); PROTEIN,URINE NEGATIVE (NEG-TRACE)
[2021-02-22 13:53] LABS: BACTERIA,URINE 0 /HPF (0-FEW); RBC,URINE 20-40 /HPF (0-2); WBC,URINE OCC /HPF (0-4)
[2021-02-22] MEDS: TPN PER PHARMACY MC PRN (15:04)
--- NOTE | 2021-02-22 15:23 | NUR ---
Pharmacy TPN Dosing Note S: COOPER CHAVEZ is a 61 year old M Currently receiving Central Continuous TPN started 02/11/21 B:Pertinent PMH: ILEUS, UNABLE TO START TUBE FEEDS Height: 6 feet, 2 inches Weight: 113.0 kg Current diet: NPO LABS: Sodium: 140 Potassium: 4.1 Chloride: 104 Calcium: 9.1 Corrected Calcium: 10.54 Magnesium: 2.1 CO2: 29 SCr: 1.1 Glucose: 205 Albumin: 2.2 AST: 60 ALT: 117 TPN FORMULA: TPN TYPE: Central Continuous AMINO ACIDS: 60 gm DEXTROSE: 195 gm LIPIDS: 0 gm SODIUM CHLORIDE: - mEq SODIUM ACETATE: - mEq SODIUM PHOSPHATE: - mmol POTASSIUM CHLORIDE: - mEq POTASSIUM ACETATE: 50 mEq POTASSIUM PHOSPHATE: 13.6 mmol MAGNESIUM: 8 mEq CALCIUM: 5 mEq INSULIN: - units MULTIPLE VITAMIN: 5 ml TRACE ELEMENTS: 1 ml ml(s) TPN PLAN: Corrected calcium slightly elevated. Decrease calcium in tpn. R: Continue TPN as ordered Will monitor electrolytes, glucose, and tolerance to TPN. BRITTNEY CHAKRABORTY, [facility], 02/22/21 [id number]
--- NOTE | 2021-02-22 16:42 | NUR ---
SS following up with discharge planning. SS reviewed pt chart and discussed with pt RN. Pt is currently on the vent at 40%. COVID19 negative. Pt on Propofol, Precedex, and Fentanyl. Trach tomorrow. Pt on IV Daptomycin, IV Zosyn, and IV Zyvox. TPN. SS will continue to follow for discharge planning.
--- NOTE | 2021-02-22 18:28 | PDOC ---
[facility] PROGRESS NOTE Date of Service DOS: DATE: 02/22/21 TIME: 18:26 Chief Complaint Chief Complaint IMPRESSION Dizziness Large right temporo-occipital intraparenchymal bleed, most likely lobar hemorrhage from hypertension, consider venous sinus thrombosis, , aneurysmal bleed, Had craniotomy 02/09 evening Suspect aspiration, respiratory failure, hypertension, chronic obstructive pulmonary disease, improving acute kidney injury MORBID OBESITY Severe malnutrition History of Present Illness History of Present Illness 02/22/2011: Patient ange intubated in ICU. Febrile today, T-max 100.3. FiO2 40, PEEP 5. Continue treatment with Zosyn, per ID. Continue to wean sedation as tolerated. Plan for trach tomorrow. Critical care time 30 minutes spent reviewing chart, reviewing labs, imaging, and discussion with RN. 02/21/2021: Patient remains intubated in ICU, FiO2 40%, PEEP 5. Afebrile. POD #12, s/p right occipital craniotomy with evacuation of intracerebral hematoma (02/09/21). Chest x-ray today shows improving bibasilar opacities. Continue Zosyn, per ID. Critical care time 30 minutes spent reviewing charts, reviewing labs, reviewing imaging, discussion with RN. 02/20/2021: POD #11 Right occipital craniotomy with evacuation of intracerebral hematoma (02/09/21). Remains sedated on ventilator, FiO2 40%, PEEP 5. Chest x- ray from 02/18 621 showed unchanged bibasilar opacities; recommending follow-up to ensure resolution, particularly of focal opacities in the right lung base. Continue Zosyn. Continue supportive care. Critical care time 30 minutes spent reviewing charts, reviewing labs, reviewing imaging, discussion with RN. 02/19/2021 POD #11 Right occipital craniotomy with evacuation of intracerebral hematoma sedated on vent Patient seen and examined at bedside Continue antibiotics per infectious disease Weaning ventilator and sedation as tolerated extubation in the next few days Plan of care discussed with bedside nurse Expected interval evolution of a right posterior temporal/occipital int raparenchymal hematoma status post decompressive craniotomy Large right temporo-occipital intraparenchymal bleed, most likely lobar hemorrhage from hypertension, consider venous sinus thrombosis, less likely in this location, aneurysmal bleed, head trauma (also unlikely). craniotomy 7/8 evening Suspect of aspiration, respiratory failure, hypertension, chronic obstructive pulmonary disease, improving acute kidney injury cont Zosyn glucose uncontrolled add Lantus 22 UNITS SQ HS elevated troponin suspect stress induced ischemia 36 MIN CC TIME 02/18/2021 POD #10 Right occipital craniotomy with evacuation of intracerebral hematoma sedated on vent Patient seen and examined at bedside Continue antibiotics per infectious disease Weaning ventilator and sedation as tolerated extubation in the next few days Plan of care discussed with bedside nurse Expected interval evolution of a right posterior temporal/occipital intraparenchymal hematoma status post decompressive craniotomy Large right temporo-occipital intraparenchymal bleed, most likely lobar hemorrhage from hypertension, consider venous sinus thrombosis, less likely in this location, aneurysmal bleed, head trauma (also unlikely). Had craniotomy 7/ evening Suspect of aspiration, respiratory failure, hypertension, chronic obstructive pulmonary disease, improving acute kidney injury cont Zosyn glucose uncontrolled add Lantus 22 UNITS SQ HS 34 MIN CC TIME 02/17/2021 POD #8 Right occipital craniotomy with evacuation of intracerebral hematoma sedated on vent Patient seen and examined at bedside Good response to IV Lasix Continue antibiotics per infectious disease Weaning ventilator and sedation as tolerated extubation in the next few days Plan of care discussed with bedside nurse Expected interval evolution of a right posterior temporal/occipital intraparenchymal hematoma status post decompressive craniotomy Large right temporo-occipital intraparenchymal bleed, most likely lobar hemorrhage from hypertension, consider venous sinus thrombosis, less likely in this location, aneurysmal bleed, head trauma (also unlikely). Had craniotomy 7/8 evening Suspect of aspiration, respiratory failure, hypertension, chronic obstructive pulmonary disease, improving acute kidney injury cont Zosyn glucose uncontrolled add Lantus 18 UNITS SQ HS 33 MIN CC TIME 02/16/2021 POD #7 Right occipital craniotomy with evacuation of intracerebral hematoma sedated on vent Patient seen and examined at bedside Good response to IV Lasix Continue antibiotics per infectious disease Weaning ventilator and sedation as tolerated extubation in the next few days Plan of care discussed with bedside nurse Expected interval evolution of a right posterior temporal/occipital intraparenchymal hematoma status post decompressive craniotomy Large right temporo-occipital intraparenchymal bleed, most likely lobar hemorrhage from hypertension, consider venous sinus thrombosis, less likely in this location, aneurysmal bleed, head trauma (also unlikely). Had craniotomy 7/ evening Suspect of aspiration, respiratory failure, hypertension, chronic obstructive pulmonary disease, improving acute kidney injury cont Zosyn glucose uncontrolled add Lantus 14 UNITS SQ HS 35 MIN CC TIME 02/15/2021 POD #6 Right occipital craniotomy with evacuation of intracerebral hematoma sedated on vent Patient seen and examined at bedside Good response to IV Lasix Continue antibiotics per infectious disease Weaning ventilator and sedation as tolerated Hopeful extubation in the next few days Plan of care discussed with bedside nurse Expected interval evolution of a right posterior temporal/occipital intraparenchymal hematoma status post decompressive craniotomy Large right temporo-occipital intraparenchymal bleed, most likely lobar hemorrhage from hypertension, consider venous sinus thrombosis, less likely in this location, aneurysmal bleed, head trauma (also unlikely). Had craniotomy 02/09 evening Suspect of aspiration, respiratory failure, hypertension, chronic obstructive pulmonary disease, improving acute kidney injury cont Zosyn glucose uncontrolled add Lantus 35 MIN CC TIME 02/14/2021 POD #5 Right occipital craniotomy with evacuation of intracerebral hematoma sedated on vent Patient seen and examined at bedside Good response to IV Lasix Continue antibiotics per infectious disease Weaning ventilator and sedation as tolerated Hopeful extubation in the next few days Plan of care discussed with bedside nurse Expected interval evolution of a right posterior temporal/occipital intrapar enchymal hematoma status post decompressive craniotomy Large right temporo-occipital intraparenchymal bleed, most likely lobar h emorrhage from hypertension, consider venous sinus thrombosis, less likely in this location, aneurysmal bleed, head trauma (also unlikely). Had craniotomy 7/ evening Suspect of aspiration, respiratory failure, hypertension, chronic obstructive pulmonary disease, improving acute kidney injury cont Zosyn glucose uncontrolled add Lantus 35 MIN CC TIME 02/13/2021 POD #4 Right occipital craniotomy with evacuation of intracerebral hematoma sedated on vent Patient seen and examined at bedside Good response to IV Lasix Continue antibiotics per infectious disease Weaning ventilator and sedation as tolerated Hopeful extubation in the next few days Plan of care discussed with bedside nurse Expected interval evolution of a right posterior temporal/occipital intraparenchymal hematoma status post decompressive craniotomy Large right temporo-occipital intraparenchymal bleed, most likely lobar hemorrhage from hypertension, consider venous sinus thrombosis, less likely in this location, aneurysmal bleed, head trauma (also unlikely). Had craniotomy 02/09 evening Suspect of aspiration, respiratory failure, hypertension, chronic obstructive p ulmonary disease, improving acute kidney injury cont Zosyn 35 MIN CC TIME 02/12/2021 Patient seen and examined at bedside Remains intubated and sedated Good response to IV Lasix yesterday had nearly 3 L out; will diurese again today Continue antibiotics per infectious disease Weaning ventilator and sedation as tolerated Hopeful extubation in the next few days Plan of care discussed with bedside nurse 02/11/2021 Patient seen and examined at bedside No major clinical changes overnight however this morning patient has largely increased amount of secretions Chest x-ray concerning for possible pneumonia, will consult ID who recommended starting Zosyn Otherwise he remains intubated and sedated We will follow subspecialist input Plan discussed with bedside RN 02/10/2021 Patient seen and examined at bedside Underwent craniotomy yesterday due to unresponsiveness in the late afternoon; w as also intubated Continues to have a poor neurologic status Neurology and neurosurgery following Discussed plan of care with bedside nurse Patient is a 61-year-old male transferred for to the ICU overnight due to hypertensive emergency and intracranial hemorrhage. Patient's mother at bedside provides most the history. She reports that patient had been in his usual state of health until yesterday morning when he reported feeling tired and having a headache. Patient mother reports he normally gets up early and goes outside however this was not the case yesterday. With this headache he took BC powder and went back to bed. Patient 's mother reports that he was in and out of bed throughout most of the afternoon. Says patient did not eat anything yesterday which is very unusual for him. Approximately 1130 last night she had the patient get up to go to the bathroom and heard him fall. He however is able to get up and returned to bed; unknown if he hit his head at this time. Patient again woke up around 2 AM and woke up his mother asking for orange juice and then proceeded to fall again, she does not think he hit his head at this time. He was taken to hospital and found to have a systolic blood pressure greater than [address] scan found to have an intracranial hemorrhage. Due to severity of his condition he was transferred here. Patient's mother reports she is not aware of any past medical history other than hypertension which he intermittently takes hydrochlorothiazide for. Vitals/I&O Vitals/I&O: Vital Signs Date Time Temp Pulse Resp B/P (MAP) Pulse Ox O2 Delivery O2 Flow Rate FiO2 02/22/21 17:39 99 Ventilator 02/22/21 17:00 98.5 57 18 123/75 (91) 98.5 I & O 02/21/21 02/21/21 02/22/21 15:00 23:00 07:00 Intake Total 1537.27 ml 830 ml Output Total 850 ml 1320 ml 775 ml Balance -850 ml 217.27 ml 55 ml Physical Exam Physical Exam: GENERAL: Sedated, orally intubated gentleman, HEENT: ETT/OGT + NECK: Rt IJ clean LUNGS: Decreased breath sound at bases HEART: S1, S2 bradycardia ABDOMEN: Soft, nontender, no organomegaly. EXTREMITIES: + less edema, no cyanosis. SKIN:no gen rash NEUROLOGIC: unable to assess General: Other (sedated, vent) Heart: Regular rate Lungs: Clear, Crackles Abdomen: Normal bowel sounds Extremities: No clubbing, No edema Skin: Other (dressing C,D,I) Labs Labs: Laboratory Tests Test 02/21/21 21:01 02/22/21 00:19 02/22/21 05:40 02/22/21 05:41 Glucose (Fingerstick) 197 mg/dL (70-99) 210 mg/dL (70-99) 213 mg/dL (70-99) White Blood Count 9.9 x10^3/uL (4.0-11.0) Red Blood Count 3.71 x10^6/uL (4.30-5.70) Hemoglobin 11.0 g/dL (13.0-17.5) Hematocrit 33.5 % (39.0-53.0) Mean Corpuscular Volume 90 fL (79-100) Mean Corpuscular Hemoglobin 30 pg (25-35) Mean Corpuscular Hemoglobin Concent 33 g/dL (31-37) Red Cell Distribution Width 13.4 % (11.5-14.5) Platelet Count 230 x10^3/uL (140-400) Neutrophils (%) (Auto) 74 % (31-73) Lymphocytes (%) (Auto) 17 % (24-48) Monocytes (%) (Auto) 8 % (0-9) Eosinophils (%) (Auto) 1 % (0-3) Basophils (%) (Auto) 0 % (0-3) Neutrophils # (Auto) 7.3 x10^3/uL (1.8-7.7) Lymphocytes # (Auto) 1.6 x10^3/uL (1.0-4.8) Monocytes # (Auto) 0.8 x10^3/uL (0.0-1.1) Eosinophils # (Auto) 0.1 x10^3/uL (0.0-0.7) Basophils # (Auto) 0.0 x10^3/uL (0.0-0.2) Sodium Level 140 mmol/L (136-145) Potassium Level 4.1 mmol/L (3.5-5.1) Chloride Level 104 mmol/L (98-107) Carbon Dioxide Level 29 mmol/L (21-32) Anion Gap 7 (6-14) Blood Urea Nitrogen 20 mg/dL (8-26) Creatinine 1.1 mg/dL (0.7-1.3) Estimated GFR (Cockcroft-Gault) 82.6 Glucose Level 205 mg/dL (70-99) Calcium Level 9.1 mg/dL (8.5-10.1) Test 02/22/21 12:04 02/22/21 17:11 Urine Collection Type Unknown Urine Color Yellow Urine Clarity Clear Urine pH 5.0 (<5.0-8.0) Urine Specific [place] 1.015 (1.000-1.030) Urine Protein Negative mg/dL (NEG-TRACE) Urine Glucose (UA) 500 mg/dL (NEG) Urine Ketones (Stick) Negative mg/dL (NEG) Urine Blood Moderate (NEG) Urine Nitrite Negative (NEG) Urine Bilirubin Negative (NEG) Urine Urobilinogen Dipstick 1.0 mg/dL (0.2 mg/dL) Urine Leukocyte Esterase Negative (NEG) Urine RBC 20-40 /HPF (0-2) Urine WBC Occ /HPF (0-4) Urine Bacteria 0 /HPF (0-FEW) Glucose (Fingerstick) 236 mg/dL (70-99) Comment Review of Relevant I have reviewed the following items neela (where applicable) has been applied. Medications: Current Medications Medications (Trade) Dose Ordered Sig/Lorraine Route PRN Reason Start Time Stop Time Status Last Admin Dose Admin Insulin Glargine (Lantus Syringe) 27 unit QHS SQ 02/21/21 21:00 02/21/21 21:02 Potassium Acetate 50 meq/Potassium Phosphate 13.6 mmol/Magnesium Sulfate 8 meq/ Calcium Gluconate 10 meq/ Multivitamins 5 ml/Zinc/Copper/ Manganese/ Selenium 1 ml/ Total Parenteral Nutrition/Amino Acids/Dextrose 2,040 ml @ 85 mls/hr TPN CONT IV 02/21/21 22:00 02/22/21 21:59 02/21/21 21:23 Daptomycin 570 mg/ Sodium Chloride 50 ml @ 100 mls/hr Q24H IV 02/22/21 12:00 02/22/21 11:34 Linezolid/Dextrose 300 ml @ 300 mls/hr Q12HR IV 02/22/21 09:00 02/22/21 09:25 Justifications for Admission Other Justification JEANINE NEWMAN MD Feb 22, 2021 18:28
[2021-02-22] MEDS: INSULIN GLARGINE SYRINGE. SQ SCH (21:32)
[2021-02-22] MEDS ORDERED: [UNRECOGNIZED DRUG - OTHER] IV SCH (22:00)
[2021-02-22] MEDS ORDERED: AMINO ACID IV SCH (22:00)
[2021-02-22] MEDS ORDERED: DEXTROSE 70% IV SCH (22:00)
[2021-02-22] MEDS ORDERED: TOTAL PARENTERAL NUTRITION IV SCH (22:00)
[2021-02-23] VITALS (24 sets, daily range): BP systolic 115–170; BP diastolic 75–98
[2021-02-23] MEDS: DEXMEDETOMIDINE 400 MCG in IV NORMAL SALINE 100ML 96 ML IV PRN ×4 (01:53→23:03)
[2021-02-23] MEDS: PROPOFOL 100 ML IV PRN ×7 (02:22→23:02)
[2021-02-23] MEDS: PIPERACILLIN/TAZOBACTAM 3.375 GM in IV NORMAL SALINE 50ML 50 ML IV SCH ×3 (05:32→17:21)
[2021-02-23] MEDS: INSULIN LISPRO 300 UNITS/3 ML VIAL. SQ SCH ×3 (05:32→17:20)
[2021-02-23 05:58] LABS: BASO % 0 % (0-3); EOS # 0.2 x10^3/uL (0.0-0.7); EOS % 2 % (0-3); HEMATOCRIT 32.3 % (39.0-53.0); HEMOGLOBIN 10.6 g/dL (13.0-17.5); LYMPH # 1.1 x10^3/uL (1.0-4.8); LYMPH % 14 % (24-48); MEAN CORPUSCULAR HEMOGLOBIN 30 pg (25-35); MEAN CORPUSCULAR HGB CONC 33 g/dL (31-37); MEAN CORPUSCULAR VOLUME 91 fL (79-100); MONO # 0.6 x10^3/uL (0.0-1.1); MONO % 7 % (0-9); NEUT # 6.4 x10^3/uL (1.8-7.7); NEUT % 77 % (31-73); PLATELET COUNT 222 x10^3/uL (140-400); RED BLOOD COUNT 3.57 x10^6/uL (4.30-5.70); RED CELL DISTRIBUTION WIDTH 13.5 % (11.5-14.5); WHITE BLOOD COUNT 8.3 x10^3/uL (4.0-11.0)
[2021-02-23] MEDS ORDERED: fentaNYL PF VIAL 100 MCG/2 ML VIAL IVP PRN ×2 (06:00)
[2021-02-23] MEDS ORDERED: HYDROmorphone 2 MG/ML VIAL IVP PRN (06:00)
[2021-02-23] MEDS ORDERED: PROCHLORPERAZINE 10 MG/2 ML VIAL. IVP PRN (06:00)
[2021-02-23] MEDS ORDERED: IV RINGERS,LACTATED 1000ML 1,000 ML IV SCH (06:00)
[2021-02-23] MEDS ORDERED: MORPHINE SULFATE 2 MG/ML INJ. IVP PRN (06:00)
[2021-02-23 06:25] LABS: CALCIUM 8.9 mg/dL (8.5-10.1); CREATININE 0.9 mg/dL (0.7-1.3); GFR 104.2; POTASSIUM 4.4 mmol/L (3.5-5.1)
[2021-02-23] MEDS: PANTOPRAZOLE IV PUSH 40 MG VIAL. IVP SCH (07:58)
[2021-02-23] MEDS: fentaNYL HIGH DOSE PCA 55 ML IV PRN (08:03)
[2021-02-23] MEDS ORDERED: LIDOCAINE 1%/EPI 1:100,000 20 ML VIAL. ONE (08:23)
[2021-02-23] MEDS ORDERED: SURGICEL FIBRILLAR 1X2 EACH. ONE (08:23)
--- NOTE | 2021-02-23 08:32 | PDOC ---
Infectious Disease Note Subjective: Subjective Pt remains intubated ,sedated T-max 101 Awaiting trach placement later today Discussed with nursing staff Vital Signs: Vital Signs Vital Signs Date Time Temp Pulse Resp B/P (MAP) Pulse Ox O2 Delivery O2 Flow Rate FiO2 02/23/21 08:03 98 02/23/21 07:00 62 16 134/82 (99) Ventilator 02/23/21 04:00 98.5 98.5 Physical Exam: PHYSICAL EXAM GENERAL: Sedated, orally intubated gentleman, HEENT: ETT/OGT + NECK: Rt IJ clean LUNGS: Decreased breath sound at bases HEART: S1, S2 bradycardia ABDOMEN: Soft, nontender, no organomegaly. EXTREMITIES: + less edema, no cyanosis. SKIN:no gen rash NEUROLOGIC: unable to assess Medications: Inpatient Meds: Medications reviewed. Labs: Lab Laboratory Tests Test 02/22/21 12:04 02/22/21 17:11 02/22/21 21:31 02/22/21 23:59 Urine Collection Type Unknown Urine Color Yellow Urine Clarity Clear Urine pH 5.0 (<5.0-8.0) Urine Specific [place] 1.015 (1.000-1.030) Urine Protein Negative mg/dL (NEG-TRACE) Urine Glucose (UA) 500 mg/dL (NEG) Urine Ketones (Stick) Negative mg/dL (NEG) Urine Blood Moderate (NEG) Urine Nitrite Negative (NEG) Urine Bilirubin Negative (NEG) Urine Urobilinogen Dipstick 1.0 mg/dL (0.2 mg/dL) Urine Leukocyte Esterase Negative (NEG) Urine RBC 20-40 /HPF (0-2) Urine WBC Occ /HPF (0-4) Urine Bacteria 0 /HPF (0-FEW) Glucose (Fingerstick) 236 mg/dL (70-99) 234 mg/dL (70-99) 238 mg/dL (70-99) Test 02/23/21 05:30 02/23/21 05:31 White Blood Count 8.3 x10^3/uL (4.0-11.0) Red Blood Count 3.57 x10^6/uL (4.30-5.70) Hemoglobin 10.6 g/dL (13.0-17.5) Hematocrit 32.3 % (39.0-53.0) Mean Corpuscular Volume 91 fL (79-100) Mean Corpuscular Hemoglobin 30 pg (25-35) Mean Corpuscular Hemoglobin Concent 33 g/dL (31-37) Red Cell Distribution Width 13.5 % (11.5-14.5) Platelet Count 222 x10^3/uL (140-400) Neutrophils (%) (Auto) 77 % (31-73) Lymphocytes (%) (Auto) 14 % (24-48) Monocytes (%) (Auto) 7 % (0-9) Eosinophils (%) (Auto) 2 % (0-3) Basophils (%) (Auto) 0 % (0-3) Neutrophils # (Auto) 6.4 x10^3/uL (1.8-7.7) Lymphocytes # (Auto) 1.1 x10^3/uL (1.0-4.8) Monocytes # (Auto) 0.6 x10^3/uL (0.0-1.1) Eosinophils # (Auto) 0.2 x10^3/uL (0.0-0.7) Basophils # (Auto) 0.0 x10^3/uL (0.0-0.2) Sodium Level 138 mmol/L (136-145) Potassium Level 4.4 mmol/L (3.5-5.1) Chloride Level 104 mmol/L (98-107) Carbon Dioxide Level 29 mmol/L (21-32) Anion Gap 5 (6-14) Blood Urea Nitrogen 20 mg/dL (8-26) Creatinine 0.9 mg/dL (0.7-1.3) Estimated GFR (Cockcroft-Gault) 104.2 Glucose Level 231 mg/dL (70-99) Calcium Level 8.9 mg/dL (8.5-10.1) Creatine Kinase 168 U/L (39-308) Glucose (Fingerstick) 232 mg/dL (70-99) Objective: Assessment: 1. Fever. 2. Acute hypoxic respiratory failure status post intubation suspected aspiration.sputum cultures NRF 3. Intracranial bleed with mass effect, status post craniotomy and hematoma evacuation. 4. Encephalopathy 5. Respiratory failure. 6. Hypertension. 7. Chronic obstructive pulmonary disease. 8. MARVIN improved U/S BUE to neg for DVT Plan: Plan of Care cont Zosyn/ dapto , Continue Zyvox F/U BC,UC,Sputum G/S and cult DC Central line Monitor labs and cults cont supportive care Awaiting trach placement Discussed with nursing staff RAMU DELGADO MD Feb 23, 2021 08:32
--- NOTE | 2021-02-23 08:38 | PDOC ---
[employer] PROGRESS NOTE Date of Service DOS: DATE: 02/23/21 TIME: 08:35 Chief Complaint Chief Complaint IMPRESSION Dizziness Large right temporo-occipital intraparenchymal bleed, most likely lobar hemorrhage from hypertension, consider venous sinus thrombosis, , aneurysmal bleed, Had craniotomy 02/09 evening Suspect aspiration, respiratory failure, hypertension, chronic obstructive pulmonary disease, improving acute kidney injury MORBID OBESITY Severe malnutrition History of Present Illness History of Present Illness 02/23/2021: Patient remains intubated in ICU, FiO2 40%, PEEP 5. I believe plan is for trach today. Continue daptomycin, Zosyn, and Zyvox, per ID. Critical care time 30 minutes spent reviewing charts, reviewing labs, reviewing imaging, discussion with RN. 02/22/2011: Patient ange intubated in ICU. Febrile today, T-max 100.3. FiO2 40, PEEP 5. Continue treatment with Zosyn, per ID. Continue to wean sedation as tolerated. Plan for trach tomorrow. Critical care time 30 minutes spent reviewing chart, reviewing labs, imaging, and discussion with RN. 02/21/2021: Patient remains intubated in ICU, FiO2 40%, PEEP 5. Afebrile. POD #12, s/p right occipital craniotomy with evacuation of intracerebral hematoma (02/09/21). Chest x-ray today shows improving bibasilar opacities. Continue Zosyn, per ID. Critical care time 30 minutes spent reviewing charts, reviewing labs, reviewing imaging, discussion with RN. 02/20/2021: POD #11 Right occipital craniotomy with evacuation of intracerebral hematoma (02/09/21). Remains sedated on ventilator, FiO2 40%, PEEP 5. Chest x- ray from 02/18 showed unchanged bibasilar opacities; recommending follow-up to ensure resolution, particularly of focal opacities in the right lung base. Continue Zosyn. Continue supportive care. Critical care time 30 minutes spent reviewing charts, reviewing labs, reviewing imaging, discussion with RN. 02/19/2021 POD #11 Right occipital craniotomy with evacuation of intracerebral hematoma sedated on vent Patient seen and examined at bedside Continue antibiotics per infectious disease Weaning ventilator and sedation as tolerated extubation in the next few days Plan of care discussed with bedside nurse Expected interval evolution of a right posterior temporal/occipital i ntraparenchymal hematoma status post decompressive craniotomy Large right temporo-occipital intraparenchymal bleed, most likely lobar hemorrhage from hypertension, consider venous sinus thrombosis, less likely in this location, aneurysmal bleed, head trauma (also unlikely). craniotomy 7/8 evening Suspect of aspiration, respiratory failure, hypertension, chronic obstructive pulmonary disease, improving acute kidney injury cont Zosyn glucose uncontrolled add Lantus 22 UNITS SQ HS elevated troponin suspect stress induced ischemia 36 MIN CC TIME 02/18/2021 POD #10 Right occipital craniotomy with evacuation of intracerebral hematoma sedated on vent Patient seen and examined at bedside Continue antibiotics per infectious disease Weaning ventilator and sedation as tolerated extubation in the next few days Plan of care discussed with bedside nurse Expected interval evolution of a right posterior temporal/occipital intraparenchymal hematoma status post decompressive craniotomy Large right temporo-occipital intraparenchymal bleed, most likely lobar hemorrhage from hypertension, consider venous sinus thrombosis, less likely in this location, aneurysmal bleed, head trauma (also unlikely). Had craniotomy 7/8 evening Suspect of aspiration, respiratory failure, hypertension, chronic obstructive pulmonary disease, improving acute kidney injury cont Zosyn glucose uncontrolled add Lantus 22 UNITS SQ HS 34 MIN CC TIME 02/17/2021 POD #8 Right occipital craniotomy with evacuation of intracerebral hematoma sedated on vent Patient seen and examined at bedside Good response to IV Lasix Continue antibiotics per infectious disease Weaning ventilator and sedation as tolerated extubation in the next few days Plan of care discussed with bedside nurse Expected interval evolution of a right posterior temporal/occipital intraparenchymal hematoma status post decompressive craniotomy Large right temporo-occipital intraparenchymal bleed, most likely lobar hemorrhage from hypertension, consider venous sinus thrombosis, less likely in this location, aneurysmal bleed, head trauma (also unlikely). Had craniotomy 7/8 evening Suspect of aspiration, respiratory failure, hypertension, chronic obstructive pulmonary disease, improving acute kidney injury cont Zosyn glucose uncontrolled add Lantus 18 UNITS SQ HS 33 MIN CC TIME 02/16/2021 POD #7 Right occipital craniotomy with evacuation of intracerebral hematoma sedated on vent Patient seen and examined at bedside Good response to IV Lasix Continue antibiotics per infectious disease Weaning ventilator and sedation as tolerated extubation in the next few days Plan of care discussed with bedside nurse Expected interval evolution of a right posterior temporal/occipital intraparenchymal hematoma status post decompressive craniotomy Large right temporo-occipital intraparenchymal bleed, most likely lobar hemorrhage from hypertension, consider venous sinus thrombosis, less likely in this location, aneurysmal bleed, head trauma (also unlikely). Had craniotomy 7/ evening Suspect of aspiration, respiratory failure, hypertension, chronic obstructive pulmonary disease, improving acute kidney injury cont Zosyn glucose uncontrolled add Lantus 14 UNITS SQ HS 35 MIN CC TIME 02/15/2021 POD #6 Right occipital craniotomy with evacuation of intracerebral hematoma sedated on vent Patient seen and examined at bedside Good response to IV Lasix Continue antibiotics per infectious disease Weaning ventilator and sedation as tolerated Hopeful extubation in the next few days Plan of care discussed with bedside nurse Expected interval evolution of a right posterior temporal/occipital intraparenchymal hematoma status post decompressive craniotomy Large right temporo-occipital intraparenchymal bleed, most likely lobar hemorrhage from hypertension, consider venous sinus thrombosis, less likely in this location, aneurysmal bleed, head trauma (also unlikely). Had craniotomy 02/09 evening Suspect of aspiration, respiratory failure, hypertension, chronic obstructive pulmonary disease, improving acute kidney injury cont Zosyn glucose uncontrolled add Lantus 35 MIN CC TIME 02/14/2021 POD #5 Right occipital craniotomy with evacuation of intracerebral hematoma sedated on vent Patient seen and examined at bedside Good response to IV Lasix Continue antibiotics per infectious disease Weaning ventilator and sedation as tolerated Hopeful extubation in the next few days Plan of care discussed with bedside nurse Expected interval evolution of a right posterior temporal/occipital intrap arenchymal hematoma status post decompressive craniotomy Large right temporo-occipital intraparenchymal bleed, most likely lobar hemorrhage from hypertension, consider venous sinus thrombosis, less likely in this location, aneurysmal bleed, head trauma (also unlikely). Had craniotomy 7/ evening Suspect of aspiration, respiratory failure, hypertension, chronic obstructive pulmonary disease, improving acute kidney injury cont Zosyn glucose uncontrolled add Lantus 35 MIN CC TIME 02/13/2021 POD #4 Right occipital craniotomy with evacuation of intracerebral hematoma sedated on vent Patient seen and examined at bedside Good response to IV Lasix Continue antibiotics per infectious disease Weaning ventilator and sedation as tolerated Hopeful extubation in the next few days Plan of care discussed with bedside nurse Expected interval evolution of a right posterior temporal/occipital intraparenchymal hematoma status post decompressive craniotomy Large right temporo-occipital intraparenchymal bleed, most likely lobar hemorrhage from hypertension, consider venous sinus thrombosis, less likely in this location, aneurysmal bleed, head trauma (also unlikely). Had craniotomy 02/09 evening Suspect of aspiration, respiratory failure, hypertension, chronic obstructive pulmonary disease, improving acute kidney injury cont Zosyn 35 MIN CC TIME 02/12/2021 Patient seen and examined at bedside Remains intubated and sedated Good response to IV Lasix yesterday had nearly 3 L out; will diurese again today Continue antibiotics per infectious disease Weaning ventilator and sedation as tolerated Hopeful extubation in the next few days Plan of care discussed with bedside nurse 02/11/2021 Patient seen and examined at bedside No major clinical changes overnight however this morning patient has largely increased amount of secretions Chest x-ray concerning for possible pneumonia, will consult ID who recommended starting Zosyn Otherwise he remains intubated and sedated We will follow subspecialist input Plan discussed with bedside RN 02/10/2021 Patient seen and examined at bedside Underwent craniotomy yesterday due to unresponsiveness in the late afternoon; was also intubated Continues to have a poor neurologic status Neurology and neurosurgery following Discussed plan of care with bedside nurse Patient is a 61-year-old male transferred for to the ICU overnight due to hypertensive emergency and intracranial hemorrhage. Patient's mother at bedside provides most the history. She reports that patient had been in his usual state of health until yesterday morning when he reported feeling tired and having a headache. Patient mother reports he normally gets up early and goes outside however this was not the case yesterday. With this headache he took BC powder and went back to bed. Nessameg meliton's mother reports that he was in and out of bed throughout most of the afternoon. Says patient did not eat anything yesterday which is very unusual for him. Approximately 1130 last night she had the patient get up to go to the bathroom and heard him fall. He however is able to get up and returned to bed; unknown if he hit his head at this time. Patient again woke up around 2 AM and woke up his mother asking for orange juice and then proceeded to fall again, she does not think he hit his head at this time. He was taken to hospital and found to have a systolic blood pressure greater than [address] scan found to have an intracranial hemorrhage. Due to severity of his condition he was transferred here. Patient's mother reports she is not aware of any past medical history other than hypertension which he intermittently takes hydrochlorothiazide for. Vitals/I&O Vitals/I&O: Vital Signs Date Time Temp Pulse Resp B/P (MAP) Pulse Ox O2 Delivery O2 Flow Rate FiO2 02/23/21 08:03 98 02/23/21 07:00 62 16 134/82 (99) Ventilator 02/23/21 04:00 98.5 98.5 I & O 02/22/21 02/22/21 02/23/21 15:00 23:00 07:00 Intake Total 350 ml 1924.9 ml 1687 ml Output Total 1300 ml 925 ml 1050 ml Balance -950 ml 999.9 ml 637 ml Physical Exam Physical Exam: GENERAL: Sedated, orally intubated gentleman, HEENT: ETT/OGT + NECK: Rt IJ clean LUNGS: Decreased breath sound at bases HEART: S1, S2 bradycardia ABDOMEN: Soft, nontender, no organomegaly. EXTREMITIES: + less edema, no cyanosis. SKIN:no gen rash NEUROLOGIC: unable to assess General: Other (sedated, vent) Heart: Regular rate Lungs: Clear, Crackles Abdomen: Normal bowel sounds Extremities: No clubbing, No edema Skin: Other (dressing C,D,I) Labs Labs: Laboratory Tests Test 02/22/21 12:04 02/22/21 17:11 02/22/21 21:31 02/22/21 23:59 Urine Collection Type Unknown Urine Color Yellow Urine Clarity Clear Urine pH 5.0 (<5.0-8.0) Urine Specific [place] 1.015 (1.000-1.030) Urine Protein Negative mg/dL (NEG-TRACE) Urine Glucose (UA) 500 mg/dL (NEG) Urine Ketones (Stick) Negative mg/dL (NEG) Urine Blood Moderate (NEG) Urine Nitrite Negative (NEG) Urine Bilirubin Negative (NEG) Urine Urobilinogen Dipstick 1.0 mg/dL (0.2 mg/dL) Urine Leukocyte Esterase Negative (NEG) Urine RBC 20-40 /HPF (0-2) Urine WBC Occ /HPF (0-4) Urine Bacteria 0 /HPF (0-FEW) Glucose (Fingerstick) 236 mg/dL (70-99) 234 mg/dL (70-99) 238 mg/dL (70-99) Test 02/23/21 05:30 02/23/21 05:31 White Blood Count 8.3 x10^3/uL (4.0-11.0) Red Blood Count 3.57 x10^6/uL (4.30-5.70) Hemoglobin 10.6 g/dL (13.0-17.5) Hematocrit 32.3 % (39.0-53.0) Mean Corpuscular Volume 91 fL (79-100) Mean Corpuscular Hemoglobin 30 pg (25-35) Mean Corpuscular Hemoglobin Concent 33 g/dL (31-37) Red Cell Distribution Width 13.5 % (11.5-14.5) Platelet Count 222 x10^3/uL (140-400) Neutrophils (%) (Auto) 77 % (31-73) Lymphocytes (%) (Auto) 14 % (24-48) Monocytes (%) (Auto) 7 % (0-9) Eosinophils (%) (Auto) 2 % (0-3) Basophils (%) (Auto) 0 % (0-3) Neutrophils # (Auto) 6.4 x10^3/uL (1.8-7.7) Lymphocytes # (Auto) 1.1 x10^3/uL (1.0-4.8) Monocytes # (Auto) 0.6 x10^3/uL (0.0-1.1) Eosinophils # (Auto) 0.2 x10^3/uL (0.0-0.7) Basophils # (Auto) 0.0 x10^3/uL (0.0-0.2) Sodium Level 138 mmol/L (136-145) Potassium Level 4.4 mmol/L (3.5-5.1) Chloride Level 104 mmol/L (98-107) Carbon Dioxide Level 29 mmol/L (21-32) Anion Gap 5 (6-14) Blood Urea Nitrogen 20 mg/dL (8-26) Creatinine 0.9 mg/dL (0.7-1.3) Estimated GFR (Cockcroft-Gault) 104.2 Glucose Level 231 mg/dL (70-99) Calcium Level 8.9 mg/dL (8.5-10.1) Creatine Kinase 168 U/L (39-308) Glucose (Fingerstick) 232 mg/dL (70-99) Comment Review of Relevant I have reviewed the following items neela (where applicable) has been applied. Medications: Current Medications Medications (Trade) Dose Ordered Sig/Lorraine Route PRN Reason Start Time Stop Time Status Last Admin Dose Admin Daptomycin 570 mg/ Sodium Chloride 50 ml @ 100 mls/hr Q24H IV 02/22/21 12:00 02/22/21 11:34 Linezolid/Dextrose 300 ml @ 300 mls/hr Q12HR IV 02/22/21 09:00 02/22/21 21:32 Potassium Acetate 50 meq/Potassium Phosphate 13.6 mmol/Magnesium Sulfate 8 meq/ Calcium Gluconate 5 meq/ Multivitamins 5 ml/Zinc/Copper/ Manganese/ Selenium 1 ml/ Total Parenteral Nutrition/Amino Acids/Dextrose 2,040 ml @ 85 mls/hr TPN CONT IV 02/22/21 22:00 02/23/21 21:59 02/22/21 21:32 Justifications for Admission Other Justification JEANINE NEWMAN MD Feb 23, 2021 08:38
[2021-02-23 08:46] LABS: BASE EXCESS ABG 1 mmol/L (-3-3); HCO3 ABG 25 mmol/L (21-28); PCO2 ABG 42 mmHg (35-46); PO2 ABG 95 mmHg (65-108); SAT O2 ABG 97 % (92-99)
[2021-02-23 08:54] LABS: FIO2 ABG 40% VENT
--- NOTE | 2021-02-23 09:12 | PDOC ---
DATE OF SERVICE DATE: 02/23/21 TIME: 09:12 SUBJECTIVE ROS Remains Intubated OBJECTIVE Vital Signs Vital Signs Date Time Temp Pulse Resp B/P (MAP) Pulse Ox O2 Delivery O2 Flow Rate FiO2 02/23/21 08:33 100 02/23/21 08:00 98.9 58 16 121/81 (94) Ventilator 98.9 I & 0 Intake and Output 02/23/21 07:00 Intake Total 3961.9 ml Output Total 3275 ml Balance 686.9 ml Intake IV Total 3961.9 ml Output Urine Total 3275 ml PHYSICAL EXAM Physical Exam General Intubated/MV HEEN Intubated Neck Supple Lungs CTA ant CV S1 S2 Abd Soft, NT Ext No LE edema, No cyanosis Moore in place Skin No rash Neuro - exam per neurologist DIAGNOSIS/ASSESSMENT Assessment & Plan MARVIN -ATN Resolved , monitor, Supportive care, Maintain Hydration, Electrolytes stable, Large right temporo-occipital intraparenchymal bleed, most likely lobar hemorrhage s/p craniotomy 02/09 evening HypoKalemia Corrected HypetNatremia- resolved , On TPN Hypertensive emergency POA - Cardene gtt as indicated Acute hypoxic respiratory failure secondary to intracranial hemorrhage and hypertensive emergency. Hypoxia secondary to basilar atelectasis contributed by encephalopathy Long history of tobaccoism. CT angiogram showed bullous emphysema in the upper lobes. Nutrition - TPN management per primary Will sign off COMMENT/RELEVANT DATA Meds Current Medications Medications (Trade) Dose Ordered Sig/Lorraine Start Time Stop Time Status Last Admin Dose Admin Acetaminophen (Tylenol Supp) 650 mg PRN Q6HRS PRN 02/11/21 21:15 Acetaminophen (Tylenol) 650 mg PRN Q6HRS PRN 02/19/21 18:00 02/22/21 08:10 650 MG Albuterol Sulfate (Ventolin Neb Soln) 2.5 mg PRN Q4HRS PRN 02/09/21 15:15 Atropine Sulfate (ATROPINE 0.5mg SYRINGE) 0.5 mg PRN Q5MIN PRN 02/15/21 14:15 Bupivacaine HCl/ Epinephrine Bitart (Sensorcain-Epi 0.5%-1:316931 Mpf) 30 ml STK-MED ONCE 02/09/21 16:33 02/09/21 16:33 DC 02/09/21 17:49 5 ML Cefazolin Sodium (Ancef) 1 gm STK-MED ONCE 02/09/21 17:28 02/09/21 17:28 DC Cellulose (Surgicel Fibrillar 1x2) 1 each STK-MED ONCE 02/23/21 08:23 02/23/21 08:23 DC Cellulose (Surgicel Hemostat 4x8) 1 each STK-MED ONCE 02/09/21 16:33 02/09/21 16:33 DC 02/09/21 18:38 1 EACH Clonidine HCl (Catapres Tts-3) 1 patch WEEKLY 02/13/21 11:00 02/20/21 07:50 1 PATCH Daptomycin 570 mg/ Sodium Chloride 50 ml @ 100 mls/hr Q24H 02/22/21 12:00 02/22/21 11:34 100 MLS/HR Dexmedetomidine HCl 400 mcg/ Sodium Chloride 100 ml @ 0 mls/hr CONT PRN 02/15/21 14:15 02/23/21 06:56 17.5 MLS/HR Dextrose 1,000 ml @ 75 mls/hr [id number] 02/17/21 10:30 02/19/21 12:57 DC 02/18/21 13:51 75 MLS/HR Dextrose (Dextrose 50%-Water Syringe) 12.5 gm PRN Q15MIN PRN 02/12/21 12:15 Fentanyl Citrate (Fentanyl 2ml Vial) 50 mcg PRN Q5MIN PRN 02/23/21 06:00 02/24/21 05:59 Furosemide (Lasix) 40 mg 1X ONCE 02/12/21 12:30 02/12/21 12:31 DC 02/12/21 12:44 40 MG Gelatin (Gelfoam Size 100) 1 each STK-MED ONCE 02/09/21 16:33 02/09/21 16:33 DC 02/09/21 17:49 1 EACH Hydralazine HCl (Apresoline Inj) 10 mg PRN Q4HRS PRN 02/14/21 16:00 02/22/21 08:11 10 MG Hydromorphone HCl (Dilaudid) 0.5 mg PRN Q10MIN PRN 02/23/21 06:00 02/24/21 05:59 Info (CONTRAST GIVEN -- Rx MONITORING) 1 each PRN DAILY PRN 02/09/21 15:45 02/11/21 15:44 DC Info (Review Meds) 1 ea PRN 1X PRN 02/09/21 15:00 Info (Tpn Per Pharmacy) 1 each PRN DAILY PRN 02/11/21 11:15 02/22/21 15:04 1 EACH Insulin Glargine (Lantus Syringe) 27 unit QHS 02/21/21 21:00 02/22/21 21:32 27 UNIT Insulin Human Lispro (HumaLOG) 0-5 UNITS Q6HRS 02/12/21 12:00 02/23/21 05:32 3 UNITS Iohexol (Omnipaque 350 Mg/ml) 100 ml STK-MED ONCE 02/09/21 15:26 02/09/21 15:27 DC Labetalol HCl (Normodyne Iv Push) 10 mg PRN Q2HR PRN 02/09/21 06:15 02/22/21 06:04 10 MG Lidocaine HCl (Buffered Lidocaine 1%) 6 ml 1X ONCE 02/10/21 13:45 02/10/21 13:46 DC 02/10/21 13:57 3 ML Lidocaine HCl (Lidocaine HCl 2% Abboject) 100 mg 1X ONCE 02/09/21 17:15 02/09/21 17:16 DC Lidocaine/ Epinephrine (LIDOCAINE 1%-EPI 1:100,000 Multi-Dose) 20 ml STK-MED ONCE 02/23/21 08:23 02/23/21 08:23 DC Linezolid/Dextrose 300 ml @ 300 mls/hr Q12HR 02/22/21 09:00 02/23/21 08:48 300 MLS/HR Lorazepam (Ativan Inj) 2 mg 1X ONCE 02/09/21 11:00 02/09/21 11:01 DC 02/09/21 11:00 2 MG Magnesium Sulfate 50 ml @ 25 mls/hr 1X ONCE 02/21/21 11:00 02/21/21 12:59 DC 02/21/21 11:30 25 MLS/HR Midazolam HCl 100 ml @ 1 mls/hr CONT PRN 02/11/21 19:30 02/13/21 20:58 5 MLS/HR Morphine Sulfate (Morphine Sulfate) 1 mg PRN Q10MIN PRN 02/23/21 06:00 02/24/21 05:59 Nicardipine HCl 50 mg/Sodium Chloride 250 ml @ 12.5 mls/hr CONT PRN 02/09/21 06:15 02/16/21 14:00 50 MLS/HR Pantoprazole Sodium (PROTONIX VIAL for IV PUSH) 40 mg DAILYAC 02/10/21 09:00 02/23/21 07:58 40 MG Piperacillin Sod/ Tazobactam Sod 3.375 gm/Sodium Chloride 50 ml @ 100 mls/hr Q6HRS 02/11/21 09:00 02/23/21 05:32 100 MLS/HR Potassium Chloride/Dextrose/ Sod Cl 1,000 ml @ 80 mls/hr [id number] 02/10/21 09:00 02/10/21 13:21 DC Potassium Chloride/Water 100 ml @ 100 mls/hr Q1H 02/11/21 08:00 02/11/21 09:59 DC 02/11/21 10:07 100 MLS/HR Potassium Acetate 50 meq/Potassium Phosphate 13.6 mmol/Magnesium Sulfate 6 meq/ Calcium Gluconate 10 meq/ Multivitamins 5 ml/Zinc/Copper/ Manganese/ Selenium 1 ml/ Total Parenteral Nutrition/Amino Acids/Dextrose 2,040 ml @ 85 mls/hr TPN CONT 02/20/21 22:00 02/21/21 21:59 DC 02/20/21 22:10 85 MLS/HR Potassium Acetate 50 meq/Potassium Phosphate 13.6 mmol/Magnesium Sulfate 8 meq/ Calcium Gluconate 5 meq/ Multivitamins 5 ml/Zinc/Copper/ Manganese/ Selenium 1 ml/ Total Parenteral Nutrition/Amino Acids/Dextrose 2,040 ml @ 85 mls/hr TPN CONT 02/22/21 22:00 02/23/21 21:59 02/22/21 21:32 85 MLS/HR Potassium Acetate 50 meq/Potassium Phosphate 13.6 mmol/Magnesium Sulfate 8 meq/ Calcium Gluconate 10 meq/ Multivitamins 5 ml/Zinc/Copper/ Manganese/ Selenium 1 ml/ Total Parenteral Nutrition/Amino Acids/Dextrose 2,040 ml @ 85 mls/hr TPN CONT 02/21/21 22:00 02/22/21 21:59 DC 02/21/21 21:23 85 MLS/HR Prochlorperazine Edisylate (Compazine) 5 mg PACU PRN PRN 02/23/21 06:00 02/24/21 05:59 Propofol 100 ml @ 0 mls/hr CONT PRN PRN 02/09/21 17:15 02/10/21 05:14 DC Propofol (Diprivan) 200 mg 1X ONCE 02/09/21 17:15 02/09/21 17:16 DC Ringer's Solution 1,000 ml @ 30 mls/hr Q24H 02/23/21 06:00 02/23/21 17:59 Rocuronium [place] (Zemuron) 100 mg STK-MED ONCE 02/09/21 17:58 02/09/21 17:59 DC Sevoflurane (Ultane) 90 ml STK-MED ONCE 02/09/21 19:20 02/09/21 19:21 DC Sodium Chloride 500 ml @ 500 mls/hr 1X PRN PRN 02/15/21 14:15 Sodium Chloride (SODIUM CHLORIDE 20ml) 20 ml STK-MED ONCE 02/09/21 18:50 02/09/21 18:50 DC Sodium Chloride 80 meq/Potassium Chloride 50 meq/ Potassium Phosphate 13.6 mmol/Magnesium Sulfate 6 meq/ Calcium Gluconate 10 meq/ Multivitamins 5 ml/Zinc/Copper/ Manganese/ Selenium 1 ml/ Total Parenteral Nutrition/Amino Acids/Dextrose 1,512 ml @ 63 mls/hr TPN CONT 02/13/21 22:00 02/14/21 21:59 DC 02/13/21 21:42 63 MLS/HR Sodium Chloride 90 meq/Potassium Chloride 50 meq/ Potassium Phosphate 13.6 mmol/Magnesium Sulfate 10 meq/ Calcium Gluconate 10 meq/ Multivitamins 5 ml/Zinc/Copper/ Manganese/ Selenium 1 ml/ Total Parenteral Nutrition/Amino Acids/Dextrose 1,512 ml @ 63 mls/hr TPN CONT 02/11/21 22:00 02/12/21 21:59 DC 02/11/21 22:32 63 MLS/HR Thrombin 20,000 unit STK-MED ONCE 02/09/21 16:33 02/09/21 16:33 DC 02/09/21 17:49 20,000 UNIT Vecuronium [place] (Norcuron Bolus) 10 mg STK-MED ONCE 02/09/21 18:49 02/09/21 18:50 DC Lab Laboratory Tests Test 02/22/21 12:04 02/22/21 17:11 02/22/21 21:31 02/22/21 23:59 Urine Collection Type Unknown Urine Color Yellow Urine Clarity Clear Urine pH 5.0 (<5.0-8.0) Urine Specific [place] 1.015 (1.000-1.030) Urine Protein Negative mg/dL (NEG-TRACE) Urine Glucose (UA) 500 mg/dL (NEG) Urine Ketones (Stick) Negative mg/dL (NEG) Urine Blood Moderate (NEG) Urine Nitrite Negative (NEG) Urine Bilirubin Negative (NEG) Urine Urobilinogen Dipstick 1.0 mg/dL (0.2 mg/dL) Urine Leukocyte Esterase Negative (NEG) Urine RBC 20-40 /HPF (0-2) Urine WBC Occ /HPF (0-4) Urine Bacteria 0 /HPF (0-FEW) Glucose (Fingerstick) 236 mg/dL (70-99) 234 mg/dL (70-99) 238 mg/dL (70-99) Test 02/23/21 05:30 02/23/21 05:31 02/23/21 08:45 White Blood Count 8.3 x10^3/uL (4.0-11.0) Red Blood Count 3.57 x10^6/uL (4.30-5.70) Hemoglobin 10.6 g/dL (13.0-17.5) Hematocrit 32.3 % (39.0-53.0) Mean Corpuscular Volume 91 fL (79-100) Mean Corpuscular Hemoglobin 30 pg (25-35) Mean Corpuscular Hemoglobin Concent 33 g/dL (31-37) Red Cell Distribution Width 13.5 % (11.5-14.5) Platelet Count 222 x10^3/uL (140-400) Neutrophils (%) (Auto) 77 % (31-73) Lymphocytes (%) (Auto) 14 % (24-48) Monocytes (%) (Auto) 7 % (0-9) Eosinophils (%) (Auto) 2 % (0-3) Basophils (%) (Auto) 0 % (0-3) Neutrophils # (Auto) 6.4 x10^3/uL (1.8-7.7) Lymphocytes # (Auto) 1.1 x10^3/uL (1.0-4.8) Monocytes # (Auto) 0.6 x10^3/uL (0.0-1.1) Eosinophils # (Auto) 0.2 x10^3/uL (0.0-0.7) Basophils # (Auto) 0.0 x10^3/uL (0.0-0.2) Sodium Level 138 mmol/L (136-145) Potassium Level 4.4 mmol/L (3.5-5.1) Chloride Level 104 mmol/L (98-107) Carbon Dioxide Level 29 mmol/L (21-32) Anion Gap 5 (6-14) Blood Urea Nitrogen 20 mg/dL (8-26) Creatinine 0.9 mg/dL (0.7-1.3) Estimated GFR (Cockcroft-Gault) 104.2 Glucose Level 231 mg/dL (70-99) Calcium Level 8.9 mg/dL (8.5-10.1) Creatine Kinase 168 U/L (39-308) Glucose (Fingerstick) 232 mg/dL (70-99) O2 Saturation 97 % (92-99) Arterial Blood pH 7.40 (7.35-7.45) Arterial Blood pCO2 at Patient Temp 42 mmHg (35-46) Arterial Blood pO2 at Patient Temp 95 mmHg (65-108) Arterial Blood HCO3 25 mmol/L (21-28) Arterial Blood Base Excess 1 mmol/L (-3-3) FiO2 40% vent Results All relevant outside records, renal labs, imaging studies, telemetry/EKG's were reviewed. Justicifation of Admission Dx: Justifications for Admission: Justification of Admission Dx: Yes Acute Hemorrhagic Stroke: Acute Hemorrhagic Stroke YULIA CAMACHO MD Feb 23, 2021 09:12
--- NOTE | 2021-02-23 10:32 | PDOC ---
PULMONARY PROGRESS NOTES DATE: 02/23/21 TIME: 10:30 Subjective PT. remains on AC mode with vent support no other concerns from nursing Vitals Vital Signs Date Time Temp Pulse Resp B/P (MAP) Pulse Ox O2 Delivery O2 Flow Rate FiO2 02/23/21 08:35 97 Ventilator 02/23/21 08:00 98.9 58 16 121/81 (94) 98.9 Comments ros unable to obtain intubated on vent Lungs: Clear, Crackles Cardiovascular: S1, S2 Abdomen: Soft, Non-tender Extremities: No Edema Skin: Warm Labs Laboratory Tests Test 02/21/21 13:12 02/21/21 17:50 02/21/21 21:01 02/22/21 00:19 Glucose (Fingerstick) 197 mg/dL (70-99) 190 mg/dL (70-99) 197 mg/dL (70-99) 210 mg/dL (70-99) Test 02/22/21 05:40 02/22/21 05:41 02/22/21 12:04 02/22/21 17:11 White Blood Count 9.9 x10^3/uL (4.0-11.0) Red Blood Count 3.71 x10^6/uL (4.30-5.70) Hemoglobin 11.0 g/dL (13.0-17.5) Hematocrit 33.5 % (39.0-53.0) Mean Corpuscular Volume 90 fL (79-100) Mean Corpuscular Hemoglobin 30 pg (25-35) Mean Corpuscular Hemoglobin Concent 33 g/dL (31-37) Red Cell Distribution Width 13.4 % (11.5-14.5) Platelet Count 230 x10^3/uL (140-400) Neutrophils (%) (Auto) 74 % (31-73) Lymphocytes (%) (Auto) 17 % (24-48) Monocytes (%) (Auto) 8 % (0-9) Eosinophils (%) (Auto) 1 % (0-3) Basophils (%) (Auto) 0 % (0-3) Neutrophils # (Auto) 7.3 x10^3/uL (1.8-7.7) Lymphocytes # (Auto) 1.6 x10^3/uL (1.0-4.8) Monocytes # (Auto) 0.8 x10^3/uL (0.0-1.1) Eosinophils # (Auto) 0.1 x10^3/uL (0.0-0.7) Basophils # (Auto) 0.0 x10^3/uL (0.0-0.2) Sodium Level 140 mmol/L (136-145) Potassium Level 4.1 mmol/L (3.5-5.1) Chloride Level 104 mmol/L (98-107) Carbon Dioxide Level 29 mmol/L (21-32) Anion Gap 7 (6-14) Blood Urea Nitrogen 20 mg/dL (8-26) Creatinine 1.1 mg/dL (0.7-1.3) Estimated GFR (Cockcroft-Gault) 82.6 Glucose Level 205 mg/dL (70-99) Calcium Level 9.1 mg/dL (8.5-10.1) Glucose (Fingerstick) 213 mg/dL (70-99) 236 mg/dL (70-99) Urine Collection Type Unknown Urine Color Yellow Urine Clarity Clear Urine pH 5.0 (<5.0-8.0) Urine Specific [place] 1.015 (1.000-1.030) Urine Protein Negative mg/dL (NEG-TRACE) Urine Glucose (UA) 500 mg/dL (NEG) Urine Ketones (Stick) Negative mg/dL (NEG) Urine Blood Moderate (NEG) Urine Nitrite Negative (NEG) Urine Bilirubin Negative (NEG) Urine Urobilinogen Dipstick 1.0 mg/dL (0.2 mg/dL) Urine Leukocyte Esterase Negative (NEG) Urine RBC 20-40 /HPF (0-2) Urine WBC Occ /HPF (0-4) Urine Bacteria 0 /HPF (0-FEW) Test 02/22/21 21:31 02/22/21 23:59 02/23/21 05:30 02/23/21 05:31 Glucose (Fingerstick) 234 mg/dL (70-99) 238 mg/dL (70-99) 232 mg/dL (70-99) White Blood Count 8.3 x10^3/uL (4.0-11.0) Red Blood Count 3.57 x10^6/uL (4.30-5.70) Hemoglobin 10.6 g/dL (13.0-17.5) Hematocrit 32.3 % (39.0-53.0) Mean Corpuscular Volume 91 fL (79-100) Mean Corpuscular Hemoglobin 30 pg (25-35) Mean Corpuscular Hemoglobin Concent 33 g/dL (31-37) Red Cell Distribution Width 13.5 % (11.5-14.5) Platelet Count 222 x10^3/uL (140-400) Neutrophils (%) (Auto) 77 % (31-73) Lymphocytes (%) (Auto) 14 % (24-48) Monocytes (%) (Auto) 7 % (0-9) Eosinophils (%) (Auto) 2 % (0-3) Basophils (%) (Auto) 0 % (0-3) Neutrophils # (Auto) 6.4 x10^3/uL (1.8-7.7) Lymphocytes # (Auto) 1.1 x10^3/uL (1.0-4.8) Monocytes # (Auto) 0.6 x10^3/uL (0.0-1.1) Eosinophils # (Auto) 0.2 x10^3/uL (0.0-0.7) Basophils # (Auto) 0.0 x10^3/uL (0.0-0.2) Sodium Level 138 mmol/L (136-145) Potassium Level 4.4 mmol/L (3.5-5.1) Chloride Level 104 mmol/L (98-107) Carbon Dioxide Level 29 mmol/L (21-32) Anion Gap 5 (6-14) Blood Urea Nitrogen 20 mg/dL (8-26) Creatinine 0.9 mg/dL (0.7-1.3) Estimated GFR (Cockcroft-Gault) 104.2 Glucose Level 231 mg/dL (70-99) Calcium Level 8.9 mg/dL (8.5-10.1) Creatine Kinase 168 U/L (39-308) Test 02/23/21 08:45 O2 Saturation 97 % (92-99) Arterial Blood pH 7.40 (7.35-7.45) Arterial Blood pCO2 at Patient Temp 42 mmHg (35-46) Arterial Blood pO2 at Patient Temp 95 mmHg (65-108) Arterial Blood HCO3 25 mmol/L (21-28) Arterial Blood Base Excess 1 mmol/L (-3-3) FiO2 40% vent Laboratory Tests Test 02/22/21 12:04 02/22/21 17:11 02/22/21 21:31 02/22/21 23:59 Urine Collection Type Unknown Urine Color Yellow Urine Clarity Clear Urine pH 5.0 (<5.0-8.0) Urine Specific [place] 1.015 (1.000-1.030) Urine Protein Negative mg/dL (NEG-TRACE) Urine Glucose (UA) 500 mg/dL (NEG) Urine Ketones (Stick) Negative mg/dL (NEG) Urine Blood Moderate (NEG) Urine Nitrite Negative (NEG) Urine Bilirubin Negative (NEG) Urine Urobilinogen Dipstick 1.0 mg/dL (0.2 mg/dL) Urine Leukocyte Esterase Negative (NEG) Urine RBC 20-40 /HPF (0-2) Urine WBC Occ /HPF (0-4) Urine Bacteria 0 /HPF (0-FEW) Glucose (Fingerstick) 236 mg/dL (70-99) 234 mg/dL (70-99) 238 mg/dL (70-99) Test 02/23/21 05:30 02/23/21 05:31 02/23/21 08:45 White Blood Count 8.3 x10^3/uL (4.0-11.0) Red Blood Count 3.57 x10^6/uL (4.30-5.70) Hemoglobin 10.6 g/dL (13.0-17.5) Hematocrit 32.3 % (39.0-53.0) Mean Corpuscular Volume 91 fL (79-100) Mean Corpuscular Hemoglobin 30 pg (25-35) Mean Corpuscular Hemoglobin Concent 33 g/dL (31-37) Red Cell Distribution Width 13.5 % (11.5-14.5) Platelet Count 222 x10^3/uL (140-400) Neutrophils (%) (Auto) 77 % (31-73) Lymphocytes (%) (Auto) 14 % (24-48) Monocytes (%) (Auto) 7 % (0-9) Eosinophils (%) (Auto) 2 % (0-3) Basophils (%) (Auto) 0 % (0-3) Neutrophils # (Auto) 6.4 x10^3/uL (1.8-7.7) Lymphocytes # (Auto) 1.1 x10^3/uL (1.0-4.8) Monocytes # (Auto) 0.6 x10^3/uL (0.0-1.1) Eosinophils # (Auto) 0.2 x10^3/uL (0.0-0.7) Basophils # (Auto) 0.0 x10^3/uL (0.0-0.2) Sodium Level 138 mmol/L (136-145) Potassium Level 4.4 mmol/L (3.5-5.1) Chloride Level 104 mmol/L (98-107) Carbon Dioxide Level 29 mmol/L (21-32) Anion Gap 5 (6-14) Blood Urea Nitrogen 20 mg/dL (8-26) Creatinine 0.9 mg/dL (0.7-1.3) Estimated GFR (Cockcroft-Gault) 104.2 Glucose Level 231 mg/dL (70-99) Calcium Level 8.9 mg/dL (8.5-10.1) Creatine Kinase 168 U/L (39-308) Glucose (Fingerstick) 232 mg/dL (70-99) O2 Saturation 97 % (92-99) Arterial Blood pH 7.40 (7.35-7.45) Arterial Blood pCO2 at Patient Temp 42 mmHg (35-46) Arterial Blood pO2 at Patient Temp 95 mmHg (65-108) Arterial Blood HCO3 25 mmol/L (21-28) Arterial Blood Base Excess 1 mmol/L (-3-3) FiO2 40% vent Comments CXR 02/21/21 IMPRESSION: 1. Stable life support devices. 2. Improving bibasilar opacities.. CXR 02/18/21 IMPRESSION: Unchanged bibasilar opacities. Recommend follow-up to ensure resolution, particularly of focal opacities in the right lung base. CXR 02/17/21 IMPRESSION: 1. Stable life support devices. 2. Stable bibasilar opacities. 3. Stable small left pleural effusion. IMPRESSION: Chest x-ray 02/13 1. Stable support lines and tubes. 2. Severe right upper lobe predominant bullous emphysema. 3. Stable right perihilar linear atelectasis or infiltrate superimposed on diffuse interstitial prominence and small pleural effusions. Impression . IMPRESSION: 1. Acute hypoxic respiratory failure multifactorial, predominantly to intraparenchymal cerebral hematoma. 2. Abnormal x-ray 3. Long history of tobaccoism. CT angiogram showed bullous emphysema in the upper lobes. 3. Acute kidney injury--resolved 4. Leukocytosis--resolved 5. s/p Right occipital craniotomy with evacuation of intracerebral hematoma. 02/09/21 6. Encephalopathy, multifactorial--ongoing 7. Uncontrolled hypertension 8. Fever, per ID CT head 02/13, discussed with Dr. Louie IMPRESSION: 1. Expected interval evolution of a right posterior temporal/occipital intraparenchymal hematoma status post decompressive craniotomy. 2. Expected evolution of a small amount of subarachnoid and intraventricular clot. DATE OF SURGERY: 02/09/2021 PREOPERATIVE DIAGNOSIS: Right posterior temporoparietal occipital intracerebral hemorrhage with neurologic deterioration. POSTOPERATIVE DIAGNOSIS: Right posterior temporoparietal occipital intracerebral hemorrhage with neurologic deterioration. OPERATION PERFORMED: Right occipital craniotomy with evacuation of intracerebral hematoma. Plan . Updated 02/23/21 Continue current vent support A/C mode rate of 16 at 40% Follow ABG/CXR-- no changes Follow ENT recs for trach-- plan for today Follow ID recs for ABX on zosyn Follow Cardiology recs Follow neurosurgery recs-- S/P Right occipital craniotomy with evacuation of intracerebral hematoma--02/09/21 TPN for nutritional support Hyperglycemia per PCP DVT/GI PPX D/W RN and RT Social work for LTAC transfer post trach Updated 02/22/21 Continue current vent support A/C mode rate of 16 at 40% Follow ABG/CXR-- no changes Follow ENT recs for trach-- plan for am Follow ID recs for ABX on zosyn Follow Cardiology recs Follow neurosurgery recs-- S/P Right occipital craniotomy with evacuation of intracerebral hematoma--02/09/21 TPN for nutritional support Hyperglycemia per PCP DVT/GI PPX D/W RN and RT Social work for LTAC transfer post trach Updated 02/21/21 Continue current vent support A/C mode rate of 16 at 40% Follow ABG/CXR-- no changes Follow ENT recs for trach-- plan for Saturday Follow ID recs for ABX on zosyn Follow Cardiology recs Follow neurosurgery recs-- S/P Right occipital craniotomy with evacuation of intracerebral hematoma--02/09/21 TPN for nutritional support Hyperglycemia per PCP DVT/GI PPX D/W RN and RT Social work for DC planning Updated 02/20 General surgery unavailable for trach We will consult ENT Antibiotics per ID Patient had a T-max yesterday 100.2 DVT GI prophylaxis A.m. ABG and chest x-ray UPDATED 02/19/21 Continue current vent support A/C mode Follow surgery recs for trach-- plan for next week Follow ID recs for ABX on zosyn Follow Cardiology recs Follow neurosurgery recs-- POD#11 S/P Right occipital craniotomy with evacuation of intracerebral hematoma TPN for nutritional support Hyperglycemia per PCP Cardene gtt for HTN PRN DVT/GI PPX D/W RN and RT Social work for DC planning RAJIV HORNE MD Feb 23, 2021 10:32
[2021-02-23 11:08] LABS: MAGNESIUM 2.1 mg/dL (1.8-2.4); PHOSPHORUS 3.9 mg/dL (2.6-4.7)
[2021-02-23] MEDS ORDERED: ROCURONIUM 50 MG/5 ML VIAL. ONE (12:13)
--- NOTE | 2021-02-23 12:13 | PDOC ---
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 02/09/21 sedated on vent Objective Objective Vital Signs Date Time Temp Pulse Resp B/P (MAP) Pulse Ox O2 Delivery O2 Flow Rate FiO2 02/23/21 08:35 97 Ventilator 02/23/21 08:00 98.9 58 16 121/81 (94) 98.9 Intake and Output 02/23/21 07:00 Intake Total 3961.9 ml Output Total 3275 ml Balance 686.9 ml Intake IV Total 3961.9 ml Output Urine Total 3275 ml Physical Exam General: Other (sedated on vent) Neuro: Other (pupils equal and reactive) Skin: Other (dressing C,D,I) Plan Plan of Care BP control trach scheduled for today plan for follow up CT head Saturday d/w RN Comment Review of Relevant I have reviewed the following items neela (where applicable) has been applied. Labs Laboratory Tests Test 02/21/21 13:12 02/21/21 17:50 02/21/21 21:01 02/22/21 00:19 Glucose (Fingerstick) 197 mg/dL (70-99) 190 mg/dL (70-99) 197 mg/dL (70-99) 210 mg/dL (70-99) Test 02/22/21 05:40 02/22/21 05:41 02/22/21 12:04 02/22/21 17:11 White Blood Count 9.9 x10^3/uL (4.0-11.0) Red Blood Count 3.71 x10^6/uL (4.30-5.70) Hemoglobin 11.0 g/dL (13.0-17.5) Hematocrit 33.5 % (39.0-53.0) Mean Corpuscular Volume 90 fL (79-100) Mean Corpuscular Hemoglobin 30 pg (25-35) Mean Corpuscular Hemoglobin Concent 33 g/dL (31-37) Red Cell Distribution Width 13.4 % (11.5-14.5) Platelet Count 230 x10^3/uL (140-400) Neutrophils (%) (Auto) 74 % (31-73) Lymphocytes (%) (Auto) 17 % (24-48) Monocytes (%) (Auto) 8 % (0-9) Eosinophils (%) (Auto) 1 % (0-3) Basophils (%) (Auto) 0 % (0-3) Neutrophils # (Auto) 7.3 x10^3/uL (1.8-7.7) Lymphocytes # (Auto) 1.6 x10^3/uL (1.0-4.8) Monocytes # (Auto) 0.8 x10^3/uL (0.0-1.1) Eosinophils # (Auto) 0.1 x10^3/uL (0.0-0.7) Basophils # (Auto) 0.0 x10^3/uL (0.0-0.2) Sodium Level 140 mmol/L (136-145) Potassium Level 4.1 mmol/L (3.5-5.1) Chloride Level 104 mmol/L (98-107) Carbon Dioxide Level 29 mmol/L (21-32) Anion Gap 7 (6-14) Blood Urea Nitrogen 20 mg/dL (8-26) Creatinine 1.1 mg/dL (0.7-1.3) Estimated GFR (Cockcroft-Gault) 82.6 Glucose Level 205 mg/dL (70-99) Calcium Level 9.1 mg/dL (8.5-10.1) Glucose (Fingerstick) 213 mg/dL (70-99) 236 mg/dL (70-99) Urine Collection Type Unknown Urine Color Yellow Urine Clarity Clear Urine pH 5.0 (<5.0-8.0) Urine Specific [employer] 1.015 (1.000-1.030) Urine Protein Negative mg/dL (NEG-TRACE) Urine Glucose (UA) 500 mg/dL (NEG) Urine Ketones (Stick) Negative mg/dL (NEG) Urine Blood Moderate (NEG) Urine Nitrite Negative (NEG) Urine Bilirubin Negative (NEG) Urine Urobilinogen Dipstick 1.0 mg/dL (0.2 mg/dL) Urine Leukocyte Esterase Negative (NEG) Urine RBC 20-40 /HPF (0-2) Urine WBC Occ /HPF (0-4) Urine Bacteria 0 /HPF (0-FEW) Test 02/22/21 21:31 02/22/21 23:59 02/23/21 05:00 02/23/21 05:30 Glucose (Fingerstick) 234 mg/dL (70-99) 238 mg/dL (70-99) Phosphorus Level 3.9 mg/dL (2.6-4.7) Magnesium Level 2.1 mg/dL (1.8-2.4) White Blood Count 8.3 x10^3/uL (4.0-11.0) Red Blood Count 3.57 x10^6/uL (4.30-5.70) Hemoglobin 10.6 g/dL (13.0-17.5) Hematocrit 32.3 % (39.0-53.0) Mean Corpuscular Volume 91 fL (79-100) Mean Corpuscular Hemoglobin 30 pg (25-35) Mean Corpuscular Hemoglobin Concent 33 g/dL (31-37) Red Cell Distribution Width 13.5 % (11.5-14.5) Platelet Count 222 x10^3/uL (140-400) Neutrophils (%) (Auto) 77 % (31-73) Lymphocytes (%) (Auto) 14 % (24-48) Monocytes (%) (Auto) 7 % (0-9) Eosinophils (%) (Auto) 2 % (0-3) Basophils (%) (Auto) 0 % (0-3) Neutrophils # (Auto) 6.4 x10^3/uL (1.8-7.7) Lymphocytes # (Auto) 1.1 x10^3/uL (1.0-4.8) Monocytes # (Auto) 0.6 x10^3/uL (0.0-1.1) Eosinophils # (Auto) 0.2 x10^3/uL (0.0-0.7) Basophils # (Auto) 0.0 x10^3/uL (0.0-0.2) Sodium Level 138 mmol/L (136-145) Potassium Level 4.4 mmol/L (3.5-5.1) Chloride Level 104 mmol/L (98-107) Carbon Dioxide Level 29 mmol/L (21-32) Anion Gap 5 (6-14) Blood Urea Nitrogen 20 mg/dL (8-26) Creatinine 0.9 mg/dL (0.7-1.3) Estimated GFR (Cockcroft-Gault) 104.2 Glucose Level 231 mg/dL (70-99) Calcium Level 8.9 mg/dL (8.5-10.1) Creatine Kinase 168 U/L (39-308) Test 02/23/21 05:31 02/23/21 08:45 Glucose (Fingerstick) 232 mg/dL (70-99) O2 Saturation 97 % (92-99) Arterial Blood pH 7.40 (7.35-7.45) Arterial Blood pCO2 at Patient Temp 42 mmHg (35-46) Arterial Blood pO2 at Patient Temp 95 mmHg (65-108) Arterial Blood HCO3 25 mmol/L (21-28) Arterial Blood Base Excess 1 mmol/L (-3-3) FiO2 40% vent Laboratory Tests Test 02/22/21 17:11 02/22/21 21:31 02/22/21 23:59 02/23/21 05:00 Glucose (Fingerstick) 236 mg/dL (70-99) 234 mg/dL (70-99) 238 mg/dL (70-99) Phosphorus Level 3.9 mg/dL (2.6-4.7) Magnesium Level 2.1 mg/dL (1.8-2.4) Test 02/23/21 05:30 02/23/21 05:31 02/23/21 08:45 White Blood Count 8.3 x10^3/uL (4.0-11.0) Red Blood Count 3.57 x10^6/uL (4.30-5.70) Hemoglobin 10.6 g/dL (13.0-17.5) Hematocrit 32.3 % (39.0-53.0) Mean Corpuscular Volume 91 fL (79-100) Mean Corpuscular Hemoglobin 30 pg (25-35) Mean Corpuscular Hemoglobin Concent 33 g/dL (31-37) Red Cell Distribution Width 13.5 % (11.5-14.5) Platelet Count 222 x10^3/uL (140-400) Neutrophils (%) (Auto) 77 % (31-73) Lymphocytes (%) (Auto) 14 % (24-48) Monocytes (%) (Auto) 7 % (0-9) Eosinophils (%) (Auto) 2 % (0-3) Basophils (%) (Auto) 0 % (0-3) Neutrophils # (Auto) 6.4 x10^3/uL (1.8-7.7) Lymphocytes # (Auto) 1.1 x10^3/uL (1.0-4.8) Monocytes # (Auto) 0.6 x10^3/uL (0.0-1.1) Eosinophils # (Auto) 0.2 x10^3/uL (0.0-0.7) Basophils # (Auto) 0.0 x10^3/uL (0.0-0.2) Sodium Level 138 mmol/L (136-145) Potassium Level 4.4 mmol/L (3.5-5.1) Chloride Level 104 mmol/L (98-107) Carbon Dioxide Level 29 mmol/L (21-32) Anion Gap 5 (6-14) Blood Urea Nitrogen 20 mg/dL (8-26) Creatinine 0.9 mg/dL (0.7-1.3) Estimated GFR (Cockcroft-Gault) 104.2 Glucose Level 231 mg/dL (70-99) Calcium Level 8.9 mg/dL (8.5-10.1) Creatine Kinase 168 U/L (39-308) Glucose (Fingerstick) 232 mg/dL (70-99) O2 Saturation 97 % (92-99) Arterial Blood pH 7.40 (7.35-7.45) Arterial Blood pCO2 at Patient Temp 42 mmHg (35-46) Arterial Blood pO2 at Patient Temp 95 mmHg (65-108) Arterial Blood HCO3 25 mmol/L (21-28) Arterial Blood Base Excess 1 mmol/L (-3-3) FiO2 40% vent Microbiology 02/22/21 Gram Stain Evaluation - Final, Resulted 02/22/21 Respiratory Culture - Preliminary, Resulted 02/22/21 Blood Culture - Preliminary, Resulted NO GROWTH AFTER 1 DAY Medications Current Medications Nicardipine HCl 50 mg/Sodium Chloride 250 ml @ 12.5 mls/hr CONT PRN IV SEE I/O RECORD Last administered on 02/16/21at 14:00; Start 02/09/21 at 06:15 Labetalol HCl (Normodyne Iv Push) 10 mg PRN Q2HR PRN IVP HYPERTENSION- 1ST CHOICE Last administered on 02/22/21at 06:04; Start 02/09/21 at 06:15 Lorazepam (Ativan Inj) 2 mg 1X ONCE IVP Last administered on 02/09/21at 10:54; Start 02/09/21 at 10:45; Stop 02/09/21 at 10:46; Status DC Lorazepam (Ativan Inj) 2 mg 1X ONCE IVP Last administered on 02/09/21at 11:00; Start 02/09/21 at 11:00; Stop 02/09/21 at 11:01; Status DC Fentanyl Citrate (Fentanyl 2ml Vial) 25 mcg PRN Q2HR PRN IVP MODERATE TO SEVERE PAIN Last administered on 02/09/21at 13:37; Start 02/09/21 at 13:30; Stop 02/18/21 at 22:53; Status DC Info (Review Meds) 1 ea PRN 1X PRN MC SEE COMMENTS; Start 02/09/21 at 15:00 Acetaminophen (Tylenol Supp) 650 mg PRN Q6HRS PRN [place] FEVER > 100.5'F or 38'C; Start 02/09/21 at 15:00; Stop 02/11/21 at 21:12; Status DC Albuterol Sulfate (Ventolin Neb Soln) 2.5 mg PRN Q4HRS PRN NEB SHORTNESS OF BREATH; Start 02/09/21 at 15:15 Iohexol (Omnipaque 350 Mg/ml) 75 ml 1X ONCE IV Last administered on 02/09/21at 15:52; Start 02/09/21 at 15:30; Stop 02/09/21 at 15:35; Status DC Iohexol (Omnipaque 350 Mg/ml) 100 ml STK-MED ONCE .ROUTE ; Start 02/09/21 at 15:26; Stop 02/09/21 at 15:27; Status DC Info (CONTRAST GIVEN -- Rx MONITORING) 1 each PRN DAILY PRN MC SEE COMMENTS; Start 02/09/21 at 15:45; Stop 02/11/21 at 15:44; Status DC Propofol 100 ml @ As Directed STK-MED ONCE IV ; Start 02/09/21 at 15:51; Stop 02/09/21 at 15:51; Status DC Rocuronium Tunas (Zemuron) 50 mg STK-MED ONCE .ROUTE ; Start 02/09/21 at 15:51; Stop 02/09/21 at 15:51; Status DC Lidocaine HCl (Lidocaine HCl 2% Abboject) 100 mg STK-MED ONCE .ROUTE ; Start 02/09/21 at 15:52; Stop 02/09/21 at 15:53; Status DC Propofol 100 ml @ 3.507 mls/ hr CONT PRN IV PER PROTOCOL Last administered on 02/23/21at 10:31; Start 02/09/21 at 16:15 Lidocaine HCl (Lidocaine HCl 2% Abboject) 100 mg 1X ONCE IV Last administered on 02/09/21 16:17; Start 02/09/21 at 16:15; Stop 02/09/21 at 16:17; Status DC Rocuronium Tunas (Zemuron) 50 mg 1X ONCE IV Last administered on 02/09/21 16:17; Start 02/09/21 at 16:15; Stop 02/09/21 at 16:17; Status DC Rocuronium Tunas (Zemuron) 100 mg STK-MED ONCE .ROUTE ; Start 02/09/21 at 16:31; Stop 02/09/21 at 16:32; Status DC Gelatin (Gelfoam Size 100) 1 each STK-MED ONCE .ROUTE Last administered on 02/09/21 17:49; Start 02/09/21 at 16:33; Stop 02/09/21 at 16:33; Status DC Bupivacaine HCl/ Epinephrine Bitart (Sensorcain-Epi 0.5%-1:118069 Mpf) 30 ml STK-MED ONCE .ROUTE Last administered on 02/09/21 17:49; Start 02/09/21 at 16:33; Stop 02/09/21 at 16:33; Status DC Cellulose (Surgicel Hemostat 4x8) 1 each STK-MED ONCE .ROUTE Last administered on 02/09/21 18:38; Start 02/09/21 at 16:33; Stop 02/09/21 at 16:33; Status DC Thrombin 20,000 unit STK-MED ONCE TP Last administered on 02/09/21 17:49; Start 02/09/21 at 16:33; Stop 02/09/21 at 16:33; Status DC Fentanyl Citrate (Fentanyl 2ml Vial) 75 mcg 1X ONCE IVP Last administered on 02/09/21 16:45; Start 02/09/21 at 16:45; Stop 02/09/21 at 16:47; Status DC Propofol (Diprivan) 200 mg 1X ONCE IV ; Start 02/09/21 at 17:15; Stop 02/09/21 at 17:16; Status DC Lidocaine HCl (Lidocaine HCl 2% Abboject) 100 mg 1X ONCE IV ; Start 02/09/21 at 17:15; Stop 02/09/21 at 17:16; Status DC Rocuronium Tunas (Zemuron) 50 mg 1X ONCE IV ; Start 02/09/21 at 17:15; Stop 02/09/21 at 17:16; Status DC Propofol 100 ml @ 0 mls/hr CONT PRN PRN IV SEDATION; Start 02/09/21 at 17:15; Stop 02/10/21 at 05:14; Status DC Cefazolin Sodium (Ancef) 1 gm STK-MED ONCE IVP ; Start 02/09/21 at 17:28; Stop 02/09/21 at 17:28; Status DC Fentanyl Citrate (Fentanyl 2ml Vial) 100 mcg STK-MED ONCE .ROUTE ; Start 02/09/21 at 17:43; Stop 02/09/21 at 17:43; Status DC Rocuronium Tunas (Zemuron) 100 mg STK-MED ONCE .ROUTE ; Start 02/09/21 at 1 7:58; Stop 02/09/21 at 17:59; Status DC Vecuronium Tunas (Norcuron Bolus) 10 mg STK-MED ONCE IV ; Start 02/09/21 at 18:49; Stop 02/09/21 at 18:50; Status DC Sodium Chloride (SODIUM CHLORIDE 20ml) 20 ml STK-MED ONCE IJ ; Start 02/09/21 at 18:50; Stop 02/09/21 at 18:50; Status DC Sevoflurane (Ultane) 90 ml STK-MED ONCE IH ; Start 02/09/21 at 19:20; Stop 02/09/21 at 19:21; Status DC Fentanyl Citrate 30 ml @ 2.5 mls/hr CONT PRN IV SEE PROTOCOL Last administered on 02/09/21at 23:40; Start 02/09/21 at 23:15; Stop 02/10/21 at 04:43; Status DC Fentanyl Citrate 55 ml @ 0 mls/hr CONT PRN IV SEE I/O Last administered on 02/23/21at 08:03; Start 02/10/21 at 05:00 Potassium Chloride/Dextrose/ Sod Cl 1,000 ml @ 80 mls/hr [id number] IV ; Start 02/10/21 at 09:00; Stop 02/10/21 at 13:21; Status DC Pantoprazole Sodium (PROTONIX VIAL for IV PUSH) 40 mg DAILYAC IVP Last administered on 02/23/21at 07:58; Start 02/10/21 at 09:00 Lidocaine HCl (Buffered Lidocaine 1%) 3 ml STK-MED ONCE .ROUTE ; Start 02/10/21 at 13:18; Stop 02/10/21 at 13:18; Status DC Sodium Chloride 1,000 ml @ 80 mls/hr [id number] IV Last administered on 02/12/21at 03:00; Start 02/10/21 at 13:30; Stop 02/12/21 at 15:36; Status DC Lidocaine HCl (Buffered Lidocaine 1%) 6 ml 1X ONCE INJ Last administered on 02/10/21at 13:57; Start 02/10/21 at 13:45; Stop 02/10/21 at 13:46; Status DC Potassium Chloride/Water 100 ml @ 100 mls/hr Q1H IV Last administered on 02/11/21at 10:07; Start 02/11/21 at 08:00; Stop 02/11/21 at 09:59; Status DC Piperacillin Sod/ Tazobactam Sod 3.375 gm/Sodium Chloride 50 ml @ 100 mls/hr Q6HRS IV Last administered on 02/23/21at 05:32; Start 02/11/21 at 09:00 Info (Tpn Per Pharmacy) 1 each PRN DAILY PRN MC SEE COMMENTS Last administered on 02/22/21at 15:04; Start 02/11/21 at 11:15 Sodium Chloride 90 meq/Potassium Chloride 50 meq/ Potassium Phosphate 13.6 mmol/Magnesium Sulfate 10 meq/ Calcium Gluconate 10 meq/ Multivitamins 5 ml/Zinc/Copper/ Manganese/ Selenium 1 ml/ Total Parenteral Nutrition/Amino Acids/Dextrose 1,512 ml @ 63 mls/hr TPN CONT IV Last administered on 02/11/21at 22:32; Start 02/11/21 at 22:00; Stop 02/12/21 at 21:59; Status DC Furosemide (Lasix) 20 mg 1X ONCE IVP Last administered on 02/11/21at 15:11; Start 02/11/21 at 15:30; Stop 02/11/21 at 15:31; Status DC Furosemide (Lasix) 20 mg 1X ONCE IVP Last administered on 02/11/21at 17:00; Start 02/11/21 at 17:00; Stop 02/11/21 at 17:01; Status DC Midazolam HCl 100 ml @ 1 mls/hr CONT PRN IV SEE PROTOCOL Last administered on 02/13/21at 20:58; Start 02/11/21 at 19:30 Acetaminophen (Tylenol Supp) 650 mg PRN Q6HRS PRN [place] MILD PAIN / TEMP > 100.3'F; Start 02/11/21 at 21:15 Sodium Chloride 80 meq/Potassium Chloride 50 meq/ Potassium Phosphate 13.6 mmol/Magnesium Sulfate 6 meq/ Calcium Gluconate 10 meq/ Multivitamins 5 ml/Zinc/Copper/ Manganese/ Selenium 1 ml/ Total Parenteral Nutrition/Amino Acids/Dextrose 1,512 ml @ 63 mls/hr TPN CONT IV Last administered on 02/12/21at 22:09; Start 02/12/21 at 22:00; Stop 02/13/21 at 21:59; Status DC Furosemide (Lasix) 40 mg 1X ONCE IVP Last administered on 02/12/21at 12:44; Start 02/12/21 at 12:30; Stop 02/12/21 at 12:31; Status DC Insulin Human Lispro (HumaLOG) 0-5 UNITS Q6HRS SQ Last administered on 02/23/21at 05:32; Start 02/12/21 at 12:00 Dextrose (Dextrose 50%-Water Syringe) 12.5 gm PRN Q15MIN PRN IV SEE COMMENTS; Start 02/12/21 at 12:15 Clonidine HCl (Catapres Tts-3) 1 patch WEEKLY TD Last administered on 02/20/21at 07:50; Start 02/13/21 at 11:00 Sodium Chloride 80 meq/Potassium Chloride 50 meq/ Potassium Phosphate 13.6 mmol/Magnesium Sulfate 6 meq/ Calcium Gluconate 10 meq/ Multivitamins 5 ml/Zinc/Copper/ Manganese/ Selenium 1 ml/ Total Parenteral Nutrition/Amino Acids/Dextrose 1,512 ml @ 63 mls/hr TPN CONT IV Last administered on 02/13/21at 21:42; Start 02/13/21 at 22:00; Stop 02/14/21 at 21:59; Status DC Potassium Acetate 50 meq/Potassium Phosphate 13.6 mmol/Magnesium Sulfate 6 meq/ Calcium Gluconate 10 meq/ Multivitamins 5 ml/Zinc/Copper/ Manganese/ Selenium 1 ml/ Total Parenteral Nutrition/Amino Acids/Dextrose 1,512 ml @ 63 mls/hr TPN CONT IV Last administered on 02/14/21at 21:59; Start 02/14/21 at 22:00; Stop 02/15/21 at 21:59; Status DC Insulin Glargine (Lantus Syringe) 10 unit QHS SQ Last administered on 02/15/21at 22:11; Start 02/14/21 at 21:00; Stop 02/16/21 at 12:42; Status DC Hydralazine HCl (Apresoline Inj) 10 mg PRN Q4HRS PRN IVP ELEVATED BP, SEE COMMENTS Last administered on 02/22/21at 08:11; Start 02/14/21 at 16:00 Potassium Acetate 50 meq/Potassium Phosphate 13.6 mmol/Magnesium Sulfate 6 meq/ Calcium Gluconate 10 meq/ Multivitamins 5 ml/Zinc/Copper/ Manganese/ Selenium 1 ml/ Total Parenteral Nutrition/Amino Acids/Dextrose 1,512 ml @ 63 mls/hr TPN CONT IV Last administered on 02/15/21at 22:13; Start 02/15/21 at 22:00; Stop 02/16/21 at 21:59; Status DC Dexmedetomidine HCl 400 mcg/ Sodium Chloride 100 ml @ 0 mls/hr CONT PRN IV PER PROTOCOL Last administered on 02/23/21at 06:56; Start 02/15/21 at 14:15 Sodium Chloride 500 ml @ 500 mls/hr 1X PRN PRN IV SEE COMMENTS; Start 02/15/21 at 14:15 Atropine Sulfate (ATROPINE 0.5mg SYRINGE) 0.5 mg PRN Q5MIN PRN IV SEE COMMENTS; Start 02/15/21 at 14:15 Potassium Acetate 50 meq/Potassium Phosphate 13.6 mmol/Magnesium Sulfate 6 meq/ Calcium Gluconate 10 meq/ Multivitamins 5 ml/Zinc/Copper/ Manganese/ Selenium 1 ml/ Total Parenteral Nutrition/Amino Acids/Dextrose 1,512 ml @ 63 mls/hr TPN CONT IV Last administered on 02/16/21at 22:59; Start 02/16/21 at 22:00; Stop 02/17/21 at 21:59; Status DC Insulin Glargine (Lantus Syringe) 14 unit QHS SQ Last administered on 02/16/21at 21:14; Start 02/16/21 at 21:00; Stop 02/17/21 at 14:15; Status DC Potassium Acetate 50 meq/Potassium Phosphate 13.6 mmol/Magnesium Sulfate 6 meq/ Calcium Gluconate 10 meq/ Multivitamins 5 ml/Zinc/Copper/ Manganese/ Selenium 1 ml/ Total Parenteral Nutrition/Amino Acids/Dextrose 1,512 ml @ 63 mls/hr TPN CONT IV Last administered on 02/17/21at 20:48; Start 02/17/21 at 22:00; Stop 02/18/21 at 21:59; Status DC Dextrose 1,000 ml @ 75 mls/hr [id number] IV Last administered on 02/18/21at 13:51; Start 02/17/21 at 10:30; Stop 02/19/21 at 12:57; Status DC Insulin Glargine (Lantus Syringe) 18 unit QHS SQ Last administered on 02/17/21at 20:46; Start 02/17/21 at 21:00; Stop 02/18/21 at 11:56; Status DC Insulin Glargine (Lantus Syringe) 22 unit QHS SQ Last administered on 02/18/21at 21:00; Start 02/18/21 at 21:00; Stop 02/19/21 at 14:08; Status DC Potassium Acetate 50 meq/Potassium Phosphate 13.6 mmol/Magnesium Sulfate 6 meq/ Calcium Gluconate 10 meq/ Multivitamins 5 ml/Zinc/Copper/ Manganese/ Selenium 1 ml/ Total Parenteral Nutrition/Amino Acids/Dextrose 1,512 ml @ 63 mls/hr TPN CONT IV Last administered on 02/18/21at 21:43; Start 02/18/21 at 22:00; Stop 02/19/21 at 21:59; Status DC Potassium Acetate 50 meq/Potassium Phosphate 13.6 mmol/Magnesium Sulfate 6 meq/ Calcium Gluconate 10 meq/ Multivitamins 5 ml/Zinc/Copper/ Manganese/ Selenium 1 ml/ Total Parenteral Nutrition/Amino Acids/Dextrose 2,040 ml @ 85 mls/hr TPN CONT IV Last administered on 02/19/21at 20:56; Start 02/19/21 at 22:00; Stop 02/20/21 at 21:59; Status DC Insulin Glargine (Lantus Syringe) 25 unit QHS SQ Last administered on 02/20/21at 22:11; Start 02/19/21 at 21:00; Stop 02/21/21 at 10:10; Status DC Acetaminophen (Tylenol) 650 mg PRN Q6HRS PRN PEG MILD PAIN / TEMP > 100.3'F Last administered on 02/22/21at 08:10; Start 02/19/21 at 18:00 Potassium Acetate 50 meq/Potassium Phosphate 13.6 mmol/Magnesium Sulfate 6 meq/ Calcium Gluconate 10 meq/ Multivitamins 5 ml/Zinc/Copper/ Manganese/ Selenium 1 ml/ Total Parenteral Nutrition/Amino Acids/Dextrose 2,040 ml @ 85 mls/hr TPN CONT IV Last administered on 02/20/21at 22:10; Start 02/20/21 at 22:00; Stop 02/21/21 at 21:59; Status DC Insulin Glargine (Lantus Syringe) 27 unit QHS SQ Last administered on 02/22/21at 21:32; Start 02/21/21 at 21:00 Magnesium Sulfate 50 ml @ 25 mls/hr 1X ONCE IV Last administered on 02/21/21at 11:30; Start 02/21/21 at 11:00; Stop 02/21/21 at 12:59; Status DC Potassium Acetate 50 meq/Potassium Phosphate 13.6 mmol/Magnesium Sulfate 8 meq/ Calcium Gluconate 10 meq/ Multivitamins 5 ml/Zinc/Copper/ Manganese/ Selenium 1 ml/ Total Parenteral Nutrition/Amino Acids/Dextrose 2,040 ml @ 85 mls/hr TPN CONT IV Last administered on 02/21/21at 21:23; Start 02/21/21 at 22:00; Stop 02/22/21 at 21:59; Status DC Daptomycin 570 mg/ Sodium Chloride 50 ml @ 100 mls/hr Q24H IV Last administered on 02/22/21at 11:34; Start 02/22/21 at 12:00 Linezolid/Dextrose 300 ml @ 300 mls/hr Q12HR IV Last administered on 02/23/21at 08:48; Start 02/22/21 at 09:00 Potassium Acetate 50 meq/Potassium Phosphate 13.6 mmol/Magnesium Sulfate 8 meq/ Calcium Gluconate 5 meq/ Multivitamins 5 ml/Zinc/Copper/ Manganese/ Selenium 1 ml/ Total Parenteral Nutrition/Amino Acids/Dextrose 2,040 ml @ 85 mls/hr TPN CONT IV Last administered on 02/22/21at 21:32; Start 02/22/21 at 22:00; Stop 02/23/21 at 21:59 Fentanyl Citrate (Fentanyl 2ml Vial) 25 mcg PRN Q5MIN PRN IVP MILD PAIN 1-3; Start 02/23/21 at 06:00; Stop 02/24/21 at 05:59 Fentanyl Citrate (Fentanyl 2ml Vial) 50 mcg PRN Q5MIN PRN IVP MODERATE PAIN 4- 6; Start 02/23/21 at 06:00; Stop 02/24/21 at 05:59 Morphine Sulfate (Morphine Sulfate) 1 mg PRN Q10MIN PRN IVP SEVERE PAIN 7-10; Start 02/23/21 at 06:00; Stop 02/24/21 at 05:59 Ringer's Solution 1,000 ml @ 30 mls/hr Q24H IV Last administered on 02/23/21at 11:00; Start 02/23/21 at 06:00; Stop 02/23/21 at 17:59 Hydromorphone HCl (Dilaudid) 0.5 mg PRN Q10MIN PRN IVP SEVERE PAIN 7-10, 2nd CHOICE; Start 02/23/21 at 06:00; Stop 02/24/21 at 05:59 Prochlorperazine Edisylate (Compazine) 5 mg PACU PRN PRN IVP NAUSEA, MRX1; Start 02/23/21 at 06:00; Stop 02/24/21 at 05:59 Cellulose (Surgicel Fibrillar 1x2) 1 each STK-MED ONCE .ROUTE ; Start 02/23/21 at 08:23; Stop 02/23/21 at 08:23; Status DC Lidocaine/ Epinephrine (LIDOCAINE 1%-EPI 1:100,000 Multi-Dose) 20 ml STK-MED ONCE .ROUTE ; Start 02/23/21 at 08:23; Stop 02/23/21 at 08:23; Status DC Potassium Acetate 50 meq/Potassium Phosphate 13.6 mmol/Magnesium Sulfate 8 meq/ Calcium Gluconate 5 meq/ Multivitamins 5 ml/Zinc/Copper/ Manganese/ Selenium 1 ml/ Total Parenteral Nutrition/Amino Acids/Dextrose 2,040 ml @ 85 mls/hr TPN C ONT IV ; Start 02/23/21 at 22:00; Stop 02/24/21 at 21:59 Vitals/I & O Vital Sign - Last 24 Hours 02/22/21 02/22/21 02/22/21 02/22/21 13:00 14:00 15:00 16:00 Temp 99.2 99.2 Pulse 60 58 60 60 Resp 18 18 18 18 B/P (MAP) 117/72 (87) 119/72 (88) 119/72 (88) 114/69 (84) Pulse Ox 97 97 97 98 O2 Delivery Ventilator Ventilator Ventilator Ventilator 02/22/21 02/22/21 02/22/21 02/22/21 16:00 17:00 17:39 18:00 Temp 98.5 98.5 Pulse 57 58 Resp 18 18 B/P (MAP) 123/75 (91) 117/72 (87) Pulse Ox 99 99 97 O2 Delivery Mechanical Ventilator Ventilator Ventilator Ventilator 02/22/21 02/22/21 02/22/21 02/22/21 19:00 20:00 20:00 20:00 Temp 98.4 98.4 Pulse 58 58 Resp 16 16 B/P (MAP) 111/70 (84) 105/68 (80) Pulse Ox 99 99 97 O2 Delivery Ventilator Ventilator Mechanical Ventilator Ventilator 02/22/21 02/22/21 02/22/21 02/22/21 21:00 22:00 22:00 23:00 Pulse 54 56 60 Resp 17 17 16 B/P (MAP) 122/89 (100) 119/73 (88) 120/73 (89) Pulse Ox 98 99 99 99 O2 Delivery Ventilator Ventilator Ventilator Ventilator 02/23/21 02/23/21 02/23/21 02/23/21 00:00 00:00 01:00 01:00 Temp 98.2 98.2 Pulse 66 55 Resp 17 28 B/P (MAP) 125/77 (93) 135/78 (97) Pulse Ox 100 99 98 O2 Delivery Ventilator Mechanical Ventilator Ventilator Ventilator 02/23/21 02/23/21 02/23/21 02/23/21 02:00 03:00 03:00 04:00 Pulse 54 56 Resp 17 17 B/P (MAP) 136/83 (100) 124/78 (93) Pulse Ox 97 97 100 O2 Delivery Ventilator Ventilator Ventilator Mechanical Ventilator 02/23/21 02/23/21 02/23/21 02/23/21 04:00 05:00 05:22 06:00 Temp 98.5 98.5 Pulse 57 67 56 Resp 17 23 17 B/P (MAP) 119/78 (92) 143/83 (103) 140/86 (104) Pulse Ox 97 99 100 99 O2 Delivery Ventilator Ventilator Ventilator Ventilator 02/23/21 02/23/21 02/23/21 02/23/21 07:00 08:00 08:03 08:33 Temp 98.9 98.9 Pulse 62 58 Resp 16 16 B/P (MAP) 134/82 (99) 121/81 (94) Pulse Ox 98 97 98 100 O2 Delivery Ventilator Ventilator 02/23/21 08:35 Pulse Ox 97 O2 Delivery Ventilator Intake and Output 02/22/21 02/22/21 02/23/21 15:00 23:00 07:00 Intake Total 350 ml 1924.9 ml 1687 ml Output Total 1300 ml 925 ml 1050 ml Balance -950 ml 999.9 ml 637 ml Justifications for Admission Other Justification HILDA ROCK DIRECT[employer] Feb 23, 2021 12:13
[2021-02-23] MEDS ORDERED: fentaNYL PF VIAL 100 MCG/2 ML VIAL ONE (12:24)
[2021-02-23] MEDS ORDERED: INSULIN LISPRO 100 UNIT/ML 3ML VIAL for OP,RR ONLY. SQ PRN (13:15)
[2021-02-23] MEDS ORDERED: ROCURONIUM 100 MG/10 ML VIAL. ONE (13:22)
[2021-02-23] MEDS: TPN PER PHARMACY MC PRN (13:39)
--- NOTE | 2021-02-23 13:46 | NUR ---
Pharmacy TPN Dosing Note S: COOPER CHAVEZ is a 61 year old M Currently receiving Central Continuous TPN started 02/11/21 B:Pertinent PMH: ILEUS, UNABLE TO START TUBE FEEDS Height: 6 feet, 2 inches Weight: 111.1 kg Current diet: NPO LABS: Sodium: 138 Potassium: 4.4 Chloride: 104 Calcium: 8.9 Corrected Calcium: 10.34 Magnesium: 2.1 CO2: 29 SCr: 0.9 Glucose: 231-245 Albumin: 2.2 AST: 60 ALT: 117 TPN FORMULA: TPN TYPE: Central Continuous AMINO ACIDS: 98 gm DEXTROSE: 255 gm LIPIDS: 0 gm POTASSIUM ACETATE: 50 mEq POTASSIUM PHOSPHATE: 13.6 mmol MAGNESIUM: 8 mEq CALCIUM: 5 mEq MULTIPLE VITAMIN: 5 ml TRACE ELEMENTS: 1 ml ml(s) TPN PLAN: Macros adjusted per track liner operator rec's. Lipids left out as propofol is still running. R: Continue TPN per plan and ordered formula Will monitor electrolytes, glucose, and tolerance to TPN. Neelima Gentile RPH, 02/23/21 [id number]
[2021-02-23] MEDS ORDERED: ALBUTEROL SULFATE 8GM INHALER. INH ONE (13:47)
[2021-02-23] MEDS ORDERED: SEVOFLURANE 61 TO 120 MINUTES. IH ONE (14:21)
[2021-02-23] MEDS: DAPTOmycin (GENERIC) IVPB 570 MG in IV NORMAL SALINE 50ML 50 ML IV SCH (14:25)
--- NOTE | 2021-02-23 14:28 | PDOC4 ---
IMMEDIATE POST OP NOTE Date: Feb 23, 2021 Pre-Op Diagnosis prolonged need for ventilatory support Post-Op Diagnosis same as above Procedure Performed tracheostomy Surgeon Dr. Melony Avelar Content Writer PRINCIPAL ANDROID DEVELOPER Rosa Estevez Anesthesiologist Dr. Pereyra Anesthesia Type: General Blood Loss 10mL Specimens Obtained none Findings 1. Normal tracheal anatomy, 8-0 cuffed Shiley trach placed 2. High riding innominate artery, prominent thyroid isthmus-- no daria nodules Complications none Operative Note Dictation #[id number] MELONY AVELAR MD Feb 23, 2021 14:27
--- NOTE | 2021-02-23 15:16 | OP ---
DATE OF SURGERY: 02/23/2021 PREOPERATIVE DIAGNOSIS: Prolonged intubation and prolonged need for ventilatory support. POSTOPERATIVE DIAGNOSIS: Prolonged intubation and prolonged need for ventilatory support. PROCEDURE PERFORMED: Tracheostomy. SURGEON: Melony Avelar MD FAX MACHINE REPAIRER: LORNA Santacruz ANESTHESIA: General endotracheal anesthesia. INDICATIONS FOR SURGERY: The patient is a 61-year-old male admitted to the hospital on 02/09/2021 after suffering a stroke. The patient underwent right occipital craniotomy with evacuation of intracerebral hematoma on 02/09/2021 and he has continued to not awaken from anesthesia since that time. Due to prolonged need for ventilatory support, the decision was made for the patient to undergo a tracheostomy. After the risks, benefits and alternatives of surgery were discussed with the patient's family, an informed consent was obtained. ESTIMATED BLOOD LOSS: Less than 10 mL. INTRAOPERATIVE FINDINGS: Prominent thyroid isthmus and superiorly located innominate artery, but otherwise normal anatomy to the trachea. An 8.0 cuffed Shiley trach placed in the airway at the end of the case. DESCRIPTION OF PROCEDURE: The patient was brought back to room per anesthesia and positioned on the OR table with a shoulder roll in place. I marked his neck landmarks and a subcutaneous injection of 1% lidocaine with 1:100,000 epinephrine was placed along our incision site just above the thyroid cartilage in a subcutaneous plane, approximately 6 mL in total was injected. The patient was then prepped and draped in a standard fashion. A 15 blade was used to cut through the skin and subcutaneous tissue. I then used the Bovie electrocautery to obtain hemostasis. I then dissected through the subcutaneous tissue. I identified the platysmal musculature. I then dissected through the strap musculature at the midline using LigaSure cautery to dissect the strap musculature away from the midline, identified the cricoid cartilage and removed the perichondrium off the cricoid cartilage superiorly. Inferiorly along the trachea, I identified the thyroid isthmus. This was quite prominent hypervascular. On palpation of the patient's neck, I could feel the innominate artery located very superiorly. Taking great care, we dissected through the thyroid isthmus using LigaSure as well as Bovie electrocautery and identified the tracheal ring. I carefully used a Kittner elevator to remove the perichondrium from the tracheal rings. A cricoid hook was then used to elevate the cricoid superiorly. I cut through the second and third tracheal ring with a 15 blade and then cut the lateral aspect of the third tracheal ring to make a Gary flap. This was sutured to the subcutaneous skin inferior to the tracheal incision with 3-0 Vicryl suture. Anesthesia then gently deflated the cuff of the endotracheal tube and gently removed the endotracheal tube under my direct visualization. Once the endotracheal tube was above my tracheal incision, I then placed the 8.0 cuffed Shiley tracheostomy tube in the trachea. The obturator was then removed. The inner cannula placed and the cuff inflated. The ventilator was then hooked up to the tracheostomy with good end-tidal CO2. The endotracheal tube was completely removed from the patient. The patient had good ventilation at this point. The trach was secured to the skin in four-point fashion using 3-0 nylon suture. The tracheostomy cuff was placed around the patient's neck to hold the tracheostomy in good position. There was minimal bleeding at the end of the case. The patient was transferred to the ICU in stable condition. COMPLICATIONS: None. DISPOSITION: Stable on transfer to the Intensive Care Unit. CRISSY DR: Giovanni TID: [id number] FLORI
[2021-02-23] MEDS: INSULIN GLARGINE SYRINGE. SQ SCH (21:26)
[2021-02-23] MEDS ORDERED: AMINO ACID IV SCH (22:00)
[2021-02-23] MEDS ORDERED: TOTAL PARENTERAL NUTRITION IV SCH (22:00)
[2021-02-23] MEDS ORDERED: DEXTROSE 70% IV SCH (22:00)
[2021-02-23] MEDS ORDERED: [UNRECOGNIZED DRUG - OTHER] IV SCH (22:00)
[2021-02-24] VITALS (24 sets, daily range): BP systolic 114–153; BP diastolic 61–89
[2021-02-24] MEDS: PIPERACILLIN/TAZOBACTAM 3.375 GM in IV NORMAL SALINE 50ML 50 ML IV SCH ×5 (00:19→23:52)
[2021-02-24] MEDS: PROPOFOL 100 ML IV PRN ×7 (03:12→23:53)
[2021-02-24] MEDS: DEXMEDETOMIDINE 400 MCG in IV NORMAL SALINE 100ML 96 ML IV PRN ×4 (05:04→21:09)
[2021-02-24] MEDS: INSULIN LISPRO 300 UNITS/3 ML VIAL. SQ SCH ×5 (05:59→23:57)
--- NOTE | 2021-02-24 08:09 | PDOC ---
[employer] PROGRESS NOTE Date of Service DOS: DATE: 02/24/21 TIME: 08:07 Chief Complaint Chief Complaint IMPRESSION Dizziness Large right temporo-occipital intraparenchymal bleed, most likely lobar hemorrhage from hypertension, consider venous sinus thrombosis, , aneurysmal bleed, Had craniotomy 02/09 evening Suspect aspiration, respiratory failure, hypertension, chronic obstructive pulmonary disease, improving acute kidney injury MORBID OBESITY Severe malnutrition History of Present Illness History of Present Illness 02/24/2021: Afebrile. Had tracheostomy performed yesterday. On vent with FiO2 40%, PEEP 5. Continue antibiotics, per ID. Critical care time 30 minutes reviewing labs, reviewing imaging, reviewing charts, discussed with RN. 02/23/2021: Patient remains intubated in ICU, FiO2 40%, PEEP 5. I believe plan is for trach today. Continue daptomycin, Zosyn, and Zyvox, per ID. Critical care time 30 minutes spent reviewing charts, reviewing labs, reviewing imaging, discussion with RN. 02/22/2011: Patient ange intubated in ICU. Febrile today, T-max 100.3. FiO2 40, PEEP 5. Continue treatment with Zosyn, per ID. Continue to wean sedation as tolerated. Plan for trach tomorrow. Critical care time 30 minutes spent reviewing chart, reviewing labs, imaging, and discussion with RN. 02/21/2021: Patient remains intubated in ICU, FiO2 40%, PEEP 5. Afebrile. POD #12, s/p right occipital craniotomy with evacuation of intracerebral hematoma (02/09/21). Chest x-ray today shows improving bibasilar opacities. Continue Zosyn, per ID. Critical care time 30 minutes spent reviewing charts, reviewing labs, reviewing imaging, discussion with RN. 02/20/2021: POD #11 Right occipital craniotomy with evacuation of intracerebral hematoma (02/09/21). Remains sedated on ventilator, FiO2 40%, PEEP 5. Chest x- ray from 02/18 621 showed unchanged bibasilar opacities; recommending follow-up to ensure resolution, particularly of focal opacities in the right lung base. Continue Zosyn. Continue supportive care. Critical care time 30 minutes spent reviewing charts, reviewing labs, reviewing imaging, discussion with RN. 02/19/2021 POD #11 Right occipital craniotomy with evacuation of intracerebral hematoma sedated on vent Patient seen and examined at bedside Continue antibiotics per infectious disease Weaning ventilator and sedation as tolerated extubation in the next few days Plan of care discussed with bedside nurse Expected interval evolution of a right posterior temporal/occipital intraparenchymal hematoma status post decompressive craniotomy Large right temporo-occipital intraparenchymal bleed, most likely lobar hemorrhage from hypertension, consider venous sinus thrombosis, less likely in this location, aneurysmal bleed, head trauma (also unlikely). craniotomy 7/ evening Suspect of aspiration, respiratory failure, hypertension, chronic obstructive pulmonary disease, improving acute kidney injury cont Zosyn glucose uncontrolled add Lantus 22 UNITS SQ HS elevated troponin suspect stress induced ischemia 36 MIN CC TIME 02/18/2021 POD #10 Right occipital craniotomy with evacuation of intracerebral hematoma sedated on vent Patient seen and examined at bedside Continue antibiotics per infectious disease Weaning ventilator and sedation as tolerated extubation in the next few days Plan of care discussed with bedside nurse Expected interval evolution of a right posterior temporal/occipital intraparenchymal hematoma status post decompressive craniotomy Large right temporo-occipital intraparenchymal bleed, most likely lobar hemorrhage from hypertension, consider venous sinus thrombosis, less likely in this location, aneurysmal bleed, head trauma (also unlikely). Had craniotomy 02/09 evening Suspect of aspiration, respiratory failure, hypertension, chronic obstructive pulmonary disease, improving acute kidney injury cont Zosyn glucose uncontrolled add Lantus 22 UNITS SQ HS 34 MIN CC TIME 02/17/2021 POD #8 Right occipital craniotomy with evacuation of intracerebral hematoma sedated on vent Patient seen and examined at bedside Good response to IV Lasix Continue antibiotics per infectious disease Weaning ventilator and sedation as tolerated extubation in the next few days Plan of care discussed with bedside nurse Expected interval evolution of a right posterior temporal/occipital intraparenchymal hematoma status post decompressive craniotomy Large right temporo-occipital intraparenchymal bleed, most likely lobar hemorrhage from hypertension, consider venous sinus thrombosis, less likely in this location, aneurysmal bleed, head trauma (also unlikely). Had craniotomy 7/ evening Suspect of aspiration, respiratory failure, hypertension, chronic obstructive pulmonary disease, improving acute kidney injury cont Zosyn glucose uncontrolled add Lantus 18 UNITS SQ HS 33 MIN CC TIME 02/16/2021 POD #7 Right occipital craniotomy with evacuation of intracerebral hematoma sedated on vent Patient seen and examined at bedside Good response to IV Lasix Continue antibiotics per infectious disease Weaning ventilator and sedation as tolerated extubation in the next few days Plan of care discussed with bedside nurse Expected interval evolution of a right posterior temporal/occipital intraparenchymal hematoma status post decompressive craniotomy Large right temporo-occipital intraparenchymal bleed, most likely lobar hemorrhage from hypertension, consider venous sinus thrombosis, less likely in this location, aneurysmal bleed, head trauma (also unlikely). Had craniotomy 02/09 evening Suspect of aspiration, respiratory failure, hypertension, chronic obstructive pulmonary disease, improving acute kidney injury cont Zosyn glucose uncontrolled add Lantus 14 UNITS SQ HS 35 MIN CC TIME 02/15/2021 POD #6 Right occipital craniotomy with evacuation of intracerebral hematoma sedated on vent Patient seen and examined at bedside Good response to IV Lasix Continue antibiotics per infectious disease Weaning ventilator and sedation as tolerated Hopeful extubation in the next few days Plan of care discussed with bedside nurse Expected interval evolution of a right posterior temporal/occipital intraparenchymal hematoma status post decompressive craniotomy Large right temporo-occipital intraparenchymal bleed, most likely lobar hemorrhage from hypertension, consider venous sinus thrombosis, less likely in this location, aneurysmal bleed, head trauma (also unlikely). Had craniotomy 02/09 evening Suspect of aspiration, respiratory failure, hypertension, chronic obstructive pulmonary disease, improving acute kidney injury cont Zosyn glucose uncontrolled add Lantus 35 MIN CC TIME 02/14/2021 POD #5 Right occipital craniotomy with evacuation of intracerebral hematoma sedated on vent Patient seen and examined at bedside Good response to IV Lasix Continue antibiotics per infectious disease Weaning ventilator and sedation as tolerated Hopeful extubation in the next few days Plan of care discussed with bedside nurse Expected interval evolution of a right posterior temporal/occipital intraparenchymal hematoma status post decompressive craniotomy Large right temporo-occipital intraparenchymal bleed, most likely lobar hemorrhage from hypertension, consider venous sinus thrombosis, less likely in this location, aneurysmal bleed, head trauma (also unlikely). Had craniotomy 02/09 evening Suspect of aspiration, respiratory failure, hypertension, chronic obstructive pulmonary disease, improving acute kidney injury cont Zosyn glucose uncontrolled add Lantus 35 MIN CC TIME 02/13/2021 POD #4 Right occipital craniotomy with evacuation of intracerebral hematoma sedated on vent Patient seen and examined at bedside Good response to IV Lasix Continue antibiotics per infectious disease Weaning ventilator and sedation as tolerated Hopeful extubation in the next few days Plan of care discussed with bedside nurse Expected interval evolution of a right posterior temporal/occipital intraparenchymal hematoma status post decompressive craniotomy Large right temporo-occipital intraparenchymal bleed, most likely lobar hemorrhage from hypertension, consider venous sinus thrombosis, less likely in this location, aneurysmal bleed, head trauma (also unlikely). Had craniotomy 02/09 evening Suspect of aspiration, respiratory failure, hypertension, chronic obstructive pulmonary disease, improving acute kidney injury cont Zosyn 35 MIN CC TIME 02/12/2021 Patient seen and examined at bedside Remains intubated and sedated Good response to IV Lasix yesterday had nearly 3 L out; will diurese again today Continue antibiotics per infectious disease Weaning ventilator and sedation as tolerated Hopeful extubation in the next few days Plan of care discussed with bedside nurse 02/11/2021 Patient seen and examined at bedside No major clinical changes overnight however this morning patient has largely inc reased amount of secretions Chest x-ray concerning for possible pneumonia, will consult ID who recommended starting Zosyn Otherwise he remains intubated and sedated We will follow subspecialist input Plan discussed with bedside RN 02/10/2021 Patient seen and examined at bedside Underwent craniotomy yesterday due to unresponsiveness in the late afternoon; was also intubated Continues to have a poor neurologic status Neurology and neurosurgery following Discussed plan of care with bedside nurse Patient is a 61-year-old male transferred for to the ICU overnight due to hypertensive emergency and intracranial hemorrhage. Patient's mother at bedside provides most the history. She reports that patient had been in his usual state of health until yesterday morning when he reported feeling tired and having a headache. Patient mother reports he normally gets up early and goes outside however this was not the case yesterday. With this headache he took BC powder and went back to bed. Patient's mother reports that he was in and out of bed throughout most of the afternoon. Says patient did not eat anything yesterday which is very unusual for him. Approximately 1130 last night she had the patient get up to go to the bathroom and heard him fall. He however is able to get up and returned to bed; unknown if he hit his head at this time. Patient again woke up around 2 AM and woke up his mother asking for orange juice and then proceeded to fall again, she does not think he hit his head at this time. He was taken to hospital and found to have a systolic blood pressure greater than [address] scan found to have an intracranial hemorrhage. Due to severity of his condition he was transferred here. Patient's mother reports she is not aware of any past medical history other than hypertension which he intermittently takes hydrochlorothiazide for. Vitals/I&O Vitals/I&O: Vital Signs Date Time Temp Pulse Resp B/P (MAP) Pulse Ox O2 Delivery O2 Flow Rate FiO2 02/24/21 06:00 62 16 117/78 (91) 98 Ventilator 02/24/21 04:00 99.0 99.0 I & O 02/23/21 02/23/21 02/24/21 15:00 23:00 07:00 Intake Total 100 ml 1999 ml 407 ml Output Total 500 ml 820 ml 660 ml Balance -400 ml 1179 ml -253 ml Physical Exam Physical Exam: GENERAL: Sedated, tracheostomy in place HEENT: ETT/OGT + NECK: Rt IJ clean LUNGS: Decreased breath sound at bases HEART: S1, S2 bradycardia ABDOMEN: Soft, nontender, no organomegaly. EXTREMITIES: + less edema, no cyanosis. SKIN:no gen rash NEUROLOGIC: unable to assess General: Other (sedated on vent) Heart: Regular rate Lungs: Clear, Crackles Abdomen: Normal bowel sounds Extremities: No clubbing, No edema Skin: Other (dressing C,D,I) Labs Labs: Laboratory Tests Test 02/23/21 08:45 02/23/21 12:11 02/23/21 12:56 02/23/21 17:19 O2 Saturation 97 % (92-99) Arterial Blood pH 7.40 (7.35-7.45) Arterial Blood pCO2 at Patient Temp 42 mmHg (35-46) Arterial Blood pO2 at Patient Temp 95 mmHg (65-108) Arterial Blood HCO3 25 mmol/L (21-28) Arterial Blood Base Excess 1 mmol/L (-3-3) FiO2 40% vent Glucose (Fingerstick) 245 mg/dL (70-99) 238 mg/dL (70-99) 173 mg/dL (70-99) Test 02/23/21 21:15 02/24/21 00:18 02/24/21 05:57 Glucose (Fingerstick) 155 mg/dL (70-99) 194 mg/dL (70-99) 153 mg/dL (70-99) Comment Review of Relevant I have reviewed the following items neela (where applicable) has been applied. Medications: Current Medications Medications (Trade) Dose Ordered Sig/Lorraine Route PRN Reason Start Time Stop Time Status Last Admin Dose Admin Lidocaine/ Epinephrine (LIDOCAINE 1%-EPI 1:100,000 Multi-Dose) 20 ml STK-MED ONCE .ROUTE 02/23/21 08:23 02/23/21 08:23 DC 02/23/21 13:33 Insulin Human Lispro (HumaLOG VIAL for OP,RR ONLY) 0-10 units PRN Q1HR PRN SQ PER PROTOCOL 02/23/21 13:15 02/24/21 13:14 02/23/21 13:00 Justifications for Admission Other Justification JEANINE NEWAMN MD Feb 24, 2021 08:09
--- NOTE | 2021-02-24 08:11 | PDOC ---
Infectious Disease Note Subjective: Subjective Pt remains intubated ,sedated Afebrile last 24 hours Status post trach placement Discussed with nursing staff Vital Signs: Vital Signs Vital Signs Date Time Temp Pulse Resp B/P (MAP) Pulse Ox O2 Delivery O2 Flow Rate FiO2 02/24/21 06:00 62 16 117/78 (91) 98 Ventilator 02/24/21 04:00 99.0 99.0 Physical Exam: PHYSICAL EXAM GENERAL: Sedated on vent HEENT: ETT/OGT + NECK trach present LUNGS: Decreased breath sound at bases HEART: S1, S2 bradycardia ABDOMEN: Soft, nontender, no organomegaly. EXTREMITIES: + less edema, no cyanosis. SKIN:no gen rash NEUROLOGIC: unable to assess Right IJ taken out Medications: Inpatient Meds: Medications reviewed. Labs: Lab Laboratory Tests Test 02/23/21 08:45 02/23/21 12:11 02/23/21 12:56 02/23/21 17:19 O2 Saturation 97 % (92-99) Arterial Blood pH 7.40 (7.35-7.45) Arterial Blood pCO2 at Patient Temp 42 mmHg (35-46) Arterial Blood pO2 at Patient Temp 95 mmHg (65-108) Arterial Blood HCO3 25 mmol/L (21-28) Arterial Blood Base Excess 1 mmol/L (-3-3) FiO2 40% vent Glucose (Fingerstick) 245 mg/dL (70-99) 238 mg/dL (70-99) 173 mg/dL (70-99) Test 02/23/21 21:15 02/24/21 00:18 02/24/21 05:57 Glucose (Fingerstick) 155 mg/dL (70-99) 194 mg/dL (70-99) 153 mg/dL (70-99) Objective: Assessment: 1. Fever. 2. Acute hypoxic respiratory failure status post intubation suspected aspiration.sputum cultures NRF 3. Intracranial bleed with mass effect, status post craniotomy and hematoma evacuation. 4. Encephalopathy 5. Respiratory failure. 6. Hypertension. 7. Chronic obstructive pulmonary disease. 8. MARVIN improved U/S BUE to neg for DVT Plan: Plan of Care cont Zosyn/ dapto , Continue Zyvox F/U BC,UC,Sputum G/S and cult Central line removed Avoid placing PICC line for another 24 hours if able Monitor labs and cults cont supportive care Discussed with nursing staff RAMU DELGADO MD Feb 24, 2021 08:11
[2021-02-24 08:55] LABS: BASO % 0 % (0-3); EOS # 0.1 x10^3/uL (0.0-0.7); EOS % 2 % (0-3); HEMATOCRIT 34.4 % (39.0-53.0); HEMOGLOBIN 11.3 g/dL (13.0-17.5); LYMPH # 1.5 x10^3/uL (1.0-4.8); LYMPH % 20 % (24-48); MEAN CORPUSCULAR HEMOGLOBIN 29 pg (25-35); MEAN CORPUSCULAR HGB CONC 33 g/dL (31-37); MEAN CORPUSCULAR VOLUME 89 fL (79-100); MONO # 0.6 x10^3/uL (0.0-1.1); MONO % 7 % (0-9); NEUT # 5.6 x10^3/uL (1.8-7.7); NEUT % 71 % (31-73); PLATELET COUNT 243 x10^3/uL (140-400); RED BLOOD COUNT 3.85 x10^6/uL (4.30-5.70); RED CELL DISTRIBUTION WIDTH 13.4 % (11.5-14.5); WHITE BLOOD COUNT 7.9 x10^3/uL (4.0-11.0)
[2021-02-24 09:09] LABS: CALCIUM 8.9 mg/dL (8.5-10.1); CREATININE 1.1 mg/dL (0.7-1.3); GFR 82.6; POTASSIUM 4.3 mmol/L (3.5-5.1)
[2021-02-24] MEDS: PANTOPRAZOLE IV PUSH 40 MG VIAL. IVP SCH (09:59)
--- NOTE | 2021-02-24 10:10 | NUR ---
SS following up with discharge planning. SS reviewed pt chart and discussed with pt RN. Pt is currently on the vent at 40%. Pt had trach placement on 02/23/2021. PICC in place. Pt on TPN, IV Daptomycin, IV Zyvox, and IV Zosyn. Pt on Precedex, Propofol, and Fentanyl. COVID19 negative. Self pay. [facility] [employer] following. SSI/Disability and Medicaid application submitted and pending. SS will continue to follow for discharge planning.
--- NOTE | 2021-02-24 10:25 | PDOC ---
PULMONARY PROGRESS NOTES DATE: 02/24/21 TIME: 10:21 Subjective PT. remains on AC mode with vent support no other concerns from nursing Status post tracheostomy on 02/23 Vitals Vital Signs Date Time Temp Pulse Resp B/P (MAP) Pulse Ox O2 Delivery O2 Flow Rate FiO2 02/24/21 08:28 98 Ventilator 02/24/21 06:00 62 16 117/78 (91) 02/24/21 04:00 99.0 99.0 Comments ros unable to obtain intubated on vent Lungs: Clear Cardiovascular: S1, S2 Abdomen: Soft, Non-tender Extremities: No Edema Skin: Warm Labs Laboratory Tests Test 02/22/21 12:04 02/22/21 17:11 02/22/21 21:31 02/22/21 23:59 Urine Collection Type Unknown Urine Color Yellow Urine Clarity Clear Urine pH 5.0 (<5.0-8.0) Urine Specific [place] 1.015 (1.000-1.030) Urine Protein Negative mg/dL (NEG-TRACE) Urine Glucose (UA) 500 mg/dL (NEG) Urine Ketones (Stick) Negative mg/dL (NEG) Urine Blood Moderate (NEG) Urine Nitrite Negative (NEG) Urine Bilirubin Negative (NEG) Urine Urobilinogen Dipstick 1.0 mg/dL (0.2 mg/dL) Urine Leukocyte Esterase Negative (NEG) Urine RBC 20-40 /HPF (0-2) Urine WBC Occ /HPF (0-4) Urine Bacteria 0 /HPF (0-FEW) Glucose (Fingerstick) 236 mg/dL (70-99) 234 mg/dL (70-99) 238 mg/dL (70-99) Test 02/23/21 05:00 02/23/21 05:30 02/23/21 05:31 02/23/21 08:45 Phosphorus Level 3.9 mg/dL (2.6-4.7) Magnesium Level 2.1 mg/dL (1.8-2.4) White Blood Count 8.3 x10^3/uL (4.0-11.0) Red Blood Count 3.57 x10^6/uL (4.30-5.70) Hemoglobin 10.6 g/dL (13.0-17.5) Hematocrit 32.3 % (39.0-53.0) Mean Corpuscular Volume 91 fL (79-100) Mean Corpuscular Hemoglobin 30 pg (25-35) Mean Corpuscular Hemoglobin Concent 33 g/dL (31-37) Red Cell Distribution Width 13.5 % (11.5-14.5) Platelet Count 222 x10^3/uL (140-400) Neutrophils (%) (Auto) 77 % (31-73) Lymphocytes (%) (Auto) 14 % (24-48) Monocytes (%) (Auto) 7 % (0-9) Eosinophils (%) (Auto) 2 % (0-3) Basophils (%) (Auto) 0 % (0-3) Neutrophils # (Auto) 6.4 x10^3/uL (1.8-7.7) Lymphocytes # (Auto) 1.1 x10^3/uL (1.0-4.8) Monocytes # (Auto) 0.6 x10^3/uL (0.0-1.1) Eosinophils # (Auto) 0.2 x10^3/uL (0.0-0.7) Basophils # (Auto) 0.0 x10^3/uL (0.0-0.2) Sodium Level 138 mmol/L (136-145) Potassium Level 4.4 mmol/L (3.5-5.1) Chloride Level 104 mmol/L (98-107) Carbon Dioxide Level 29 mmol/L (21-32) Anion Gap 5 (6-14) Blood Urea Nitrogen 20 mg/dL (8-26) Creatinine 0.9 mg/dL (0.7-1.3) Estimated GFR (Cockcroft-Gault) 104.2 Glucose Level 231 mg/dL (70-99) Calcium Level 8.9 mg/dL (8.5-10.1) Creatine Kinase 168 U/L (39-308) Glucose (Fingerstick) 232 mg/dL (70-99) O2 Saturation 97 % (92-99) Arterial Blood pH 7.40 (7.35-7.45) Arterial Blood pCO2 at Patient Temp 42 mmHg (35-46) Arterial Blood pO2 at Patient Temp 95 mmHg (65-108) Arterial Blood HCO3 25 mmol/L (21-28) Arterial Blood Base Excess 1 mmol/L (-3-3) FiO2 40% vent Test 02/23/21 12:11 02/23/21 12:56 02/23/21 17:19 02/23/21 21:15 Glucose (Fingerstick) 245 mg/dL (70-99) 238 mg/dL (70-99) 173 mg/dL (70-99) 155 mg/dL (70-99) Test 02/24/21 00:18 02/24/21 05:57 02/24/21 08:30 Glucose (Fingerstick) 194 mg/dL (70-99) 153 mg/dL (70-99) White Blood Count 7.9 x10^3/uL (4.0-11.0) Red Blood Count 3.85 x10^6/uL (4.30-5.70) Hemoglobin 11.3 g/dL (13.0-17.5) Hematocrit 34.4 % (39.0-53.0) Mean Corpuscular Volume 89 fL (79-100) Mean Corpuscular Hemoglobin 29 pg (25-35) Mean Corpuscular Hemoglobin Concent 33 g/dL (31-37) Red Cell Distribution Width 13.4 % (11.5-14.5) Platelet Count 243 x10^3/uL (140-400) Neutrophils (%) (Auto) 71 % (31-73) Lymphocytes (%) (Auto) 20 % (24-48) Monocytes (%) (Auto) 7 % (0-9) Eosinophils (%) (Auto) 2 % (0-3) Basophils (%) (Auto) 0 % (0-3) Neutrophils # (Auto) 5.6 x10^3/uL (1.8-7.7) Lymphocytes # (Auto) 1.5 x10^3/uL (1.0-4.8) Monocytes # (Auto) 0.6 x10^3/uL (0.0-1.1) Eosinophils # (Auto) 0.1 x10^3/uL (0.0-0.7) Basophils # (Auto) 0.0 x10^3/uL (0.0-0.2) Sodium Level 138 mmol/L (136-145) Potassium Level 4.3 mmol/L (3.5-5.1) Chloride Level 104 mmol/L (98-107) Carbon Dioxide Level 26 mmol/L (21-32) Anion Gap 8 (6-14) Blood Urea Nitrogen 20 mg/dL (8-26) Creatinine 1.1 mg/dL (0.7-1.3) Estimated GFR (Cockcroft-Gault) 82.6 Glucose Level 144 mg/dL (70-99) Calcium Level 8.9 mg/dL (8.5-10.1) Laboratory Tests Test 02/23/21 12:11 02/23/21 12:56 02/23/21 17:19 02/23/21 21:15 Glucose (Fingerstick) 245 mg/dL (70-99) 238 mg/dL (70-99) 173 mg/dL (70-99) 155 mg/dL (70-99) Test 02/24/21 00:18 02/24/21 05:57 02/24/21 08:30 Glucose (Fingerstick) 194 mg/dL (70-99) 153 mg/dL (70-99) White Blood Count 7.9 x10^3/uL (4.0-11.0) Red Blood Count 3.85 x10^6/uL (4.30-5.70) Hemoglobin 11.3 g/dL (13.0-17.5) Hematocrit 34.4 % (39.0-53.0) Mean Corpuscular Volume 89 fL (79-100) Mean Corpuscular Hemoglobin 29 pg (25-35) Mean Corpuscular Hemoglobin Concent 33 g/dL (31-37) Red Cell Distribution Width 13.4 % (11.5-14.5) Platelet Count 243 x10^3/uL (140-400) Neutrophils (%) (Auto) 71 % (31-73) Lymphocytes (%) (Auto) 20 % (24-48) Monocytes (%) (Auto) 7 % (0-9) Eosinophils (%) (Auto) 2 % (0-3) Basophils (%) (Auto) 0 % (0-3) Neutrophils # (Auto) 5.6 x10^3/uL (1.8-7.7) Lymphocytes # (Auto) 1.5 x10^3/uL (1.0-4.8) Monocytes # (Auto) 0.6 x10^3/uL (0.0-1.1) Eosinophils # (Auto) 0.1 x10^3/uL (0.0-0.7) Basophils # (Auto) 0.0 x10^3/uL (0.0-0.2) Sodium Level 138 mmol/L (136-145) Potassium Level 4.3 mmol/L (3.5-5.1) Chloride Level 104 mmol/L (98-107) Carbon Dioxide Level 26 mmol/L (21-32) Anion Gap 8 (6-14) Blood Urea Nitrogen 20 mg/dL (8-26) Creatinine 1.1 mg/dL (0.7-1.3) Estimated GFR (Cockcroft-Gault) 82.6 Glucose Level 144 mg/dL (70-99) Calcium Level 8.9 mg/dL (8.5-10.1) Comments CXR 02/21/21 IMPRESSION: 1. Stable life support devices. 2. Improving bibasilar opacities.. CXR 02/18/21 IMPRESSION: Unchanged bibasilar opacities. Recommend follow-up to ensure resolution, particularly of focal opacities in the right lung base. CXR 02/17/21 IMPRESSION: 1. Stable life support devices. 2. Stable bibasilar opacities. 3. Stable small left pleural effusion. IMPRESSION: Chest x-ray 02/13 1. Stable support lines and tubes. 2. Severe right upper lobe predominant bullous emphysema. 3. Stable right perihilar linear atelectasis or infiltrate superimposed on diffuse interstitial prominence and small pleural effusions. Impression . IMPRESSION: 1. Acute hypoxic respiratory failure multifactorial, predominantly to intraparenchymal cerebral hematoma. Status post tracheostomy 02/23 2. Abnormal x-ray 3. Long history of tobaccoism. CT angiogram showed bullous emphysema in the upper lobes. 3. Acute kidney injury--resolved 4. Leukocytosis--resolved 5. s/p Right occipital craniotomy with evacuation of intracerebral hematoma. 02/09/21 6. Encephalopathy, multifactorial--ongoing 7. Uncontrolled hypertension 8. Fever, per ID CT head 02/13, discussed with Dr. Louie IMPRESSION: 1. Expected interval evolution of a right posterior temporal/occipital intraparenchymal hematoma status post decompressive craniotomy. 2. Expected evolution of a small amount of subarachnoid and intraventricular clot. DATE OF SURGERY: 02/09/2021 PREOPERATIVE DIAGNOSIS: Right posterior temporoparietal occipital intracerebral hemorrhage with neurologic deterioration. POSTOPERATIVE DIAGNOSIS: Right posterior temporoparietal occipital intracerebral hemorrhage with neurologic deterioration. OPERATION PERFORMED: Right occipital craniotomy with evacuation of intracerebral hematoma. Plan . Updated 02/24/21 Continue current vent support A/C mode rate of 16 at 40%. Status post tracheostomy 02/23 Follow ABG/CXR-- no changes Follow ID recs for ABX on zosyn Follow Cardiology recs Follow neurosurgery recs-- S/P Right occipital craniotomy with evacuation of intracerebral hematoma--02/09/21 TPN for nutritional support Hyperglycemia per PCP DVT/GI PPX D/W RN and RT Social work for LTAC transfer post trach Updated 02/23/21 Continue current vent support A/C mode rate of 16 at 40% Follow ABG/CXR-- no changes Follow ENT recs for trach-- plan for today Follow ID recs for ABX on zosyn Follow Cardiology recs Follow neurosurgery recs-- S/P Right occipital craniotomy with evacuation of intracerebral hematoma--02/09/21 TPN for nutritional support Hyperglycemia per PCP DVT/GI PPX D/W RN and RT Social work for LTAC transfer post trach Updated 02/22/21 Continue current vent support A/C mode rate of 16 at 40% Follow ABG/CXR-- no changes Follow ENT recs for trach-- plan for am Follow ID recs for ABX on zosyn Follow Cardiology recs Follow neurosurgery recs-- S/P Right occipital craniotomy with evacuation of intracerebral hematoma--02/09/21 TPN for nutritional support Hyperglycemia per PCP DVT/GI PPX D/W RN and RT Social work for LTAC transfer post trach Updated 02/21/21 Continue current vent support A/C mode rate of 16 at 40% Follow ABG/CXR-- no changes Follow ENT recs for trach-- plan for Saturday Follow ID recs for ABX on zosyn Follow Cardiology recs Follow neurosurgery recs-- S/P Right occipital craniotomy with evacuation of intracerebral hematoma--02/09/21 TPN for nutritional support Hyperglycemia per PCP DVT/GI PPX D/W RN and RT Social work for DC planning Updated 02/20 General surgery unavailable for trach We will consult ENT Antibiotics per ID Patient had a T-max yesterday 100.2 DVT GI prophylaxis A.m. ABG and chest x-ray UPDATED 02/19/21 Continue current vent support A/C mode Follow surgery recs for trach-- plan for next week Follow ID recs for ABX on zosyn Follow Cardiology recs Follow neurosurgery recs-- POD#11 S/P Right occipital craniotomy with evacuation of intracerebral hematoma TPN for nutritional support Hyperglycemia per PCP Cardene gtt for HTN PRN DVT/GI PPX D/W RN and RT Social work for DC planning RAJIV HORNE MD Feb 24, 2021 10:25
--- NOTE | 2021-02-24 11:27 | PDOC ---
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--02/09/21 S/P trach 02/23 sedated on vent Objective Objective Vital Signs Date Time Temp Pulse Resp B/P (MAP) Pulse Ox O2 Delivery O2 Flow Rate FiO2 02/24/21 08:28 98 Ventilator 02/24/21 06:00 62 16 117/78 (91) 02/24/21 04:00 99.0 99.0 Intake and Output 02/24/21 07:00 Intake Total 2506 ml Output Total 1980 ml Balance 526 ml IV Total 2506 ml Output Urine Total 1980 ml Physical Exam General: Other Neuro: Other (equal and reactive) Skin: Other (dressing C,D,I) Plan Plan of Care BP control wean sedation as tolerated follow up CT head Saturday Comment Review of Relevant I have reviewed the following items neela (where applicable) has been applied. Labs Laboratory Tests Test 02/22/21 12:04 02/22/21 17:11 02/22/21 21:31 02/22/21 23:59 Urine Collection Type Unknown Urine Color Yellow Urine Clarity Clear Urine pH 5.0 (<5.0-8.0) Urine Specific [place] 1.015 (1.000-1.030) Urine Protein Negative mg/dL (NEG-TRACE) Urine Glucose (UA) 500 mg/dL (NEG) Urine Ketones (Stick) Negative mg/dL (NEG) Urine Blood Moderate (NEG) Urine Nitrite Negative (NEG) Urine Bilirubin Negative (NEG) Urine Urobilinogen Dipstick 1.0 mg/dL (0.2 mg/dL) Urine Leukocyte Esterase Negative (NEG) Urine RBC 20-40 /HPF (0-2) Urine WBC Occ /HPF (0-4) Urine Bacteria 0 /HPF (0-FEW) Glucose (Fingerstick) 236 mg/dL (70-99) 234 mg/dL (70-99) 238 mg/dL (70-99) Test 02/23/21 05:00 02/23/21 05:30 02/23/21 05:31 02/23/21 08:45 Phosphorus Level 3.9 mg/dL (2.6-4.7) Magnesium Level 2.1 mg/dL (1.8-2.4) White Blood Count 8.3 x10^3/uL (4.0-11.0) Red Blood Count 3.57 x10^6/uL (4.30-5.70) Hemoglobin 10.6 g/dL (13.0-17.5) Hematocrit 32.3 % (39.0-53.0) Mean Corpuscular Volume 91 fL (79-100) Mean Corpuscular Hemoglobin 30 pg (25-35) Mean Corpuscular Hemoglobin Concent 33 g/dL (31-37) Red Cell Distribution Width 13.5 % (11.5-14.5) Platelet Count 222 x10^3/uL (140-400) Neutrophils (%) (Auto) 77 % (31-73) Lymphocytes (%) (Auto) 14 % (24-48) Monocytes (%) (Auto) 7 % (0-9) Eosinophils (%) (Auto) 2 % (0-3) Basophils (%) (Auto) 0 % (0-3) Neutrophils # (Auto) 6.4 x10^3/uL (1.8-7.7) Lymphocytes # (Auto) 1.1 x10^3/uL (1.0-4.8) Monocytes # (Auto) 0.6 x10^3/uL (0.0-1.1) Eosinophils # (Auto) 0.2 x10^3/uL (0.0-0.7) Basophils # (Auto) 0.0 x10^3/uL (0.0-0.2) Sodium Level 138 mmol/L (136-145) Potassium Level 4.4 mmol/L (3.5-5.1) Chloride Level 104 mmol/L (98-107) Carbon Dioxide Level 29 mmol/L (21-32) Anion Gap 5 (6-14) Blood Urea Nitrogen 20 mg/dL (8-26) Creatinine 0.9 mg/dL (0.7-1.3) Estimated GFR (Cockcroft-Gault) 104.2 Glucose Level 231 mg/dL (70-99) Calcium Level 8.9 mg/dL (8.5-10.1) Creatine Kinase 168 U/L (39-308) Glucose (Fingerstick) 232 mg/dL (70-99) O2 Saturation 97 % (92-99) Arterial Blood pH 7.40 (7.35-7.45) Arterial Blood pCO2 at Patient Temp 42 mmHg (35-46) Arterial Blood pO2 at Patient Temp 95 mmHg (65-108) Arterial Blood HCO3 25 mmol/L (21-28) Arterial Blood Base Excess 1 mmol/L (-3-3) FiO2 40% vent Test 02/23/21 12:11 02/23/21 12:56 02/23/21 17:19 02/23/21 21:15 Glucose (Fingerstick) 245 mg/dL (70-99) 238 mg/dL (70-99) 173 mg/dL (70-99) 155 mg/dL (70-99) Test 02/24/21 00:18 02/24/21 05:57 02/24/21 08:30 Glucose (Fingerstick) 194 mg/dL (70-99) 153 mg/dL (70-99) White Blood Count 7.9 x10^3/uL (4.0-11.0) Red Blood Count 3.85 x10^6/uL (4.30-5.70) Hemoglobin 11.3 g/dL (13.0-17.5) Hematocrit 34.4 % (39.0-53.0) Mean Corpuscular Volume 89 fL (79-100) Mean Corpuscular Hemoglobin 29 pg (25-35) Mean Corpuscular Hemoglobin Concent 33 g/dL (31-37) Red Cell Distribution Width 13.4 % (11.5-14.5) Platelet Count 243 x10^3/uL (140-400) Neutrophils (%) (Auto) 71 % (31-73) Lymphocytes (%) (Auto) 20 % (24-48) Monocytes (%) (Auto) 7 % (0-9) Eosinophils (%) (Auto) 2 % (0-3) Basophils (%) (Auto) 0 % (0-3) Neutrophils # (Auto) 5.6 x10^3/uL (1.8-7.7) Lymphocytes # (Auto) 1.5 x10^3/uL (1.0-4.8) Monocytes # (Auto) 0.6 x10^3/uL (0.0-1.1) Eosinophils # (Auto) 0.1 x10^3/uL (0.0-0.7) Basophils # (Auto) 0.0 x10^3/uL (0.0-0.2) Sodium Level 138 mmol/L (136-145) Potassium Level 4.3 mmol/L (3.5-5.1) Chloride Level 104 mmol/L (98-107) Carbon Dioxide Level 26 mmol/L (21-32) Anion Gap 8 (6-14) Blood Urea Nitrogen 20 mg/dL (8-26) Creatinine 1.1 mg/dL (0.7-1.3) Estimated GFR (Cockcroft-Gault) 82.6 Glucose Level 144 mg/dL (70-99) Calcium Level 8.9 mg/dL (8.5-10.1) Laboratory Tests Test 02/23/21 12:11 02/23/21 12:56 02/23/21 17:19 02/23/21 21:15 Glucose (Fingerstick) 245 mg/dL (70-99) 238 mg/dL (70-99) 173 mg/dL (70-99) 155 mg/dL (70-99) Test 02/24/21 00:18 02/24/21 05:57 02/24/21 08:30 Glucose (Fingerstick) 194 mg/dL (70-99) 153 mg/dL (70-99) White Blood Count 7.9 x10^3/uL (4.0-11.0) Red Blood Count 3.85 x10^6/uL (4.30-5.70) Hemoglobin 11.3 g/dL (13.0-17.5) Hematocrit 34.4 % (39.0-53.0) Mean Corpuscular Volume 89 fL (79-100) Mean Corpuscular Hemoglobin 29 pg (25-35) Mean Corpuscular Hemoglobin Concent 33 g/dL (31-37) Red Cell Distribution Width 13.4 % (11.5-14.5) Platelet Count 243 x10^3/uL (140-400) Neutrophils (%) (Auto) 71 % (31-73) Lymphocytes (%) (Auto) 20 % (24-48) Monocytes (%) (Auto) 7 % (0-9) Eosinophils (%) (Auto) 2 % (0-3) Basophils (%) (Auto) 0 % (0-3) Neutrophils # (Auto) 5.6 x10^3/uL (1.8-7.7) Lymphocytes # (Auto) 1.5 x10^3/uL (1.0-4.8) Monocytes # (Auto) 0.6 x10^3/uL (0.0-1.1) Eosinophils # (Auto) 0.1 x10^3/uL (0.0-0.7) Basophils # (Auto) 0.0 x10^3/uL (0.0-0.2) Sodium Level 138 mmol/L (136-145) Potassium Level 4.3 mmol/L (3.5-5.1) Chloride Level 104 mmol/L (98-107) Carbon Dioxide Level 26 mmol/L (21-32) Anion Gap 8 (6-14) Blood Urea Nitrogen 20 mg/dL (8-26) Creatinine 1.1 mg/dL (0.7-1.3) Estimated GFR (Cockcroft-Gault) 82.6 Glucose Level 144 mg/dL (70-99) Calcium Level 8.9 mg/dL (8.5-10.1) Microbiology 02/22/21 Blood Culture - Preliminary, Resulted NO GROWTH AFTER 1 DAY 02/22/21 Gram Stain Evaluation - Final, Complete 02/22/21 Respiratory Culture - Final, Complete Medications Current Medications Nicardipine HCl 50 mg/Sodium Chloride 250 ml @ 12.5 mls/hr CONT PRN IV SEE I/O RECORD Last administered on 02/16/21at 14:00; Start 02/09/21 at 06:15 Labetalol HCl (Normodyne Iv Push) 10 mg PRN Q2HR PRN IVP HYPERTENSION- 1ST CHOICE Last administered on 02/22/21at 06:04; Start 02/09/21 at 06:15 Lorazepam (Ativan Inj) 2 mg 1X ONCE IVP Last administered on 02/09/21at 10:54; Start 02/09/21 at 10:45; Stop 02/09/21 at 10:46; Status DC Lorazepam (Ativan Inj) 2 mg 1X ONCE IVP Last administered on 02/09/21at 11:00; Start 02/09/21 at 11:00; Stop 02/09/21 at 11:01; Status DC Fentanyl Citrate (Fentanyl 2ml Vial) 25 mcg PRN Q2HR PRN IVP MODERATE TO SEVERE PAIN Last administered on 02/09/21at 13:37; Start 02/09/21 at 13:30; Stop 02/18/21 at 22:53; Status DC Info (Review Meds) 1 ea PRN 1X PRN MC SEE COMMENTS; Start 02/09/21 at 15:00 Acetaminophen (Tylenol Supp) 650 mg PRN Q6HRS PRN AR FEVER > 100.5'F or 38'C; Start 02/09/21 at 15:00; Stop 02/11/21 at 21:12; Status DC Albuterol Sulfate (Ventolin Neb Soln) 2.5 mg PRN Q4HRS PRN NEB SHORTNESS OF BREATH; Start 02/09/21 at 15:15 Iohexol (Omnipaque 350 Mg/ml) 75 ml 1X ONCE IV Last administered on 02/09/21at 15:52; Start 02/09/21 at 15:30; Stop 02/09/21 at 15:35; Status DC Iohexol (Omnipaque 350 Mg/ml) 100 ml STK-MED ONCE .ROUTE ; Start 02/09/21 at 15:26; Stop 02/09/21 at 15:27; Status DC Info (CONTRAST GIVEN -- Rx MONITORING) 1 each PRN DAILY PRN MC SEE COMMENTS; Start 02/09/21 at 15:45; Stop 02/11/21 at 15:44; Status DC Propofol 100 ml @ As Directed STK-MED ONCE IV ; Start 02/09/21 at 15:51; Stop 02/09/21 at 15:51; Status DC Rocuronium Arbuckle (Zemuron) 50 mg STK-MED ONCE .ROUTE ; Start 02/09/21 at 15:51; Stop 02/09/21 at 15:51; Status DC Lidocaine HCl (Lidocaine HCl 2% Abboject) 100 mg STK-MED ONCE .ROUTE ; Start 02/09/21 at 15:52; Stop 02/09/21 at 15:53; Status DC Propofol 100 ml @ 3.507 mls/ hr CONT PRN IV PER PROTOCOL Last administered on 02/24/21at 10:00; Start 02/09/21 at 16:15 Lidocaine HCl (Lidocaine HCl 2% Abboject) 100 mg 1X ONCE IV Last administered on 02/09/21at 16:17; Start 02/09/21 at 16:15; Stop 02/09/21 at 16:17; Status DC Rocuronium Arbuckle (Zemuron) 50 mg 1X ONCE IV Last administered on 02/09/21at 16:17; Start 02/09/21 at 16:15; Stop 02/09/21 at 16:17; Status DC Rocuronium Arbuckle (Zemuron) 100 mg STK-MED ONCE .ROUTE ; Start 02/09/21 at 16:31; Stop 02/09/21 at 16:32; Status DC Gelatin (Gelfoam Size 100) 1 each STK-MED ONCE .ROUTE Last administered on 02/09/21 17:49; Start 02/09/21 at 16:33; Stop 02/09/21 at 16:33; Status DC Bupivacaine HCl/ Epinephrine Bitart (Sensorcain-Epi 0.5%-1:[id number] Mpf) 30 ml STK-MED ONCE .ROUTE Last administered on 02/09/21 17:49; Start 02/09/21 at 16:33; Stop 02/09/21 at 16:33; Status DC Cellulose (Surgicel Hemostat 4x8) 1 each STK-MED ONCE .ROUTE Last administered on 02/09/21 18:38; Start 02/09/21 at 16:33; Stop 02/09/21 at 16:33; Status DC Thrombin 20,000 unit STK-MED ONCE TP Last administered on 02/09/21 17:49; Start 02/09/21 at 16:33; Stop 02/09/21 at 16:33; Status DC Fentanyl Citrate (Fentanyl 2ml Vial) 75 mcg 1X ONCE IVP Last administered on 02/09/21at 16:45; Start 02/09/21 at 16:45; Stop 02/09/21 at 16:47; Status DC Propofol (Diprivan) 200 mg 1X ONCE IV ; Start 02/09/21 at 17:15; Stop 02/09/21 at 17:16; Status DC Lidocaine HCl (Lidocaine HCl 2% Abboject) 100 mg 1X ONCE IV ; Start 02/09/21 at 17:15; Stop 02/09/21 at 17:16; Status DC Rocuronium Arbuckle (Zemuron) 50 mg 1X ONCE IV ; Start 02/09/21 at 17:15; Stop 02/09/21 at 17:16; Status DC Propofol 100 ml @ 0 mls/hr CONT PRN PRN IV SEDATION; Start 02/09/21 at 17:15; Stop 02/10/21 at 05:14; Status DC Cefazolin Sodium (Ancef) 1 gm STK-MED ONCE IVP ; Start 02/09/21 at 17:28; Stop 02/09/21 at 17:28; Status DC Fentanyl Citrate (Fentanyl 2ml Vial) 100 mcg STK-MED ONCE .ROUTE ; Start 02/09/21 at 17:43; Stop 02/09/21 at 17:43; Status DC Rocuronium Arbuckle (Zemuron) 100 mg STK-MED ONCE .ROUTE ; Start 02/09/21 at 17:58; Stop 02/09/21 at 17:59; Status DC Vecuronium Arbuckle (Norcuron Bolus) 10 mg STK-MED ONCE IV ; Start 02/09/21 at 18:49; Stop 02/09/21 at 18:50; Status DC Sodium Chloride (SODIUM CHLORIDE 20ml) 20 ml STK-MED ONCE IJ ; Start 02/09/21 at 18:50; Stop 02/09/21 at 18:50; Status DC Sevoflurane (Ultane) 90 ml STK-MED ONCE IH ; Start 02/09/21 at 19:20; Stop 02/09/21 at 19:21; Status DC Fentanyl Citrate 30 ml @ 2.5 mls/hr CONT PRN IV SEE PROTOCOL Last administered on 02/09/21at 23:40; Start 02/09/21 at 23:15; Stop 02/10/21 at 04:43; Status DC Fentanyl Citrate 55 ml @ 0 mls/hr CONT PRN IV SEE I/O Last administered on 02/23/21at 08:03; Start 02/10/21 at 05:00 Potassium Chloride/Dextrose/ Sod Cl 1,000 ml @ 80 mls/hr [id number] IV ; Start 02/10/21 at 09:00; Stop 02/10/21 at 13:21; Status DC Pantoprazole Sodium (PROTONIX VIAL for IV PUSH) 40 mg DAILYAC IVP Last administered on 02/24/21at 09:59; Start 02/10/21 at 09:00 Lidocaine HCl (Buffered Lidocaine 1%) 3 ml STK-MED ONCE .ROUTE ; Start 02/10/21 at 13:18; Stop 02/10/21 at 13:18; Status DC Sodium Chloride 1,000 ml @ 80 mls/hr [id number] IV Last administered on 02/12/21at 03:00; Start 02/10/21 at 13:30; Stop 02/12/21 at 15:36; Status DC Lidocaine HCl (Buffered Lidocaine 1%) 6 ml 1X ONCE INJ Last administered on 02/10/21at 13:57; Start 02/10/21 at 13:45; Stop 02/10/21 at 13:46; Status DC Potassium Chloride/Water 100 ml @ 100 mls/hr Q1H IV Last administered on 02/11/21at 10:07; Start 02/11/21 at 08:00; Stop 02/11/21 at 09:59; Status DC Piperacillin Sod/ Tazobactam Sod 3.375 gm/Sodium Chloride 50 ml @ 100 mls/hr Q6HRS IV Last administered on 02/24/21at 06:00; Start 02/11/21 at 09:00 Info (Tpn Per Pharmacy) 1 each PRN DAILY PRN MC SEE COMMENTS Last administered on 02/23/21at 13:39; Start 02/11/21 at 11:15 Sodium Chloride 90 meq/Potassium Chloride 50 meq/ Potassium Phosphate 13.6 mmol/Magnesium Sulfate 10 meq/ Calcium Gluconate 10 meq/ Multivitamins 5 ml/Zinc/Copper/ Manganese/ Selenium 1 ml/ Total Parenteral Nutrition/Amino Acids/Dextrose 1,512 ml @ 63 mls/hr TPN CONT IV Last administered on 02/11/21at 22:32; Start 02/11/21 at 22:00; Stop 02/12/21 at 21:59; Status DC Furosemide (Lasix) 20 mg 1X ONCE IVP Last administered on 02/11/21at 15:11; S tart 02/11/21 at 15:30; Stop 02/11/21 at 15:31; Status DC Furosemide (Lasix) 20 mg 1X ONCE IVP Last administered on 02/11/21at 17:00; Start 02/11/21 at 17:00; Stop 02/11/21 at 17:01; Status DC Midazolam HCl 100 ml @ 1 mls/hr CONT PRN IV SEE PROTOCOL Last administered on 02/13/21at 20:58; Start 02/11/21 at 19:30 Acetaminophen (Tylenol Supp) 650 mg PRN Q6HRS PRN AR MILD PAIN / TEMP > 100.3'F; Start 02/11/21 at 21:15 Sodium Chloride 80 meq/Potassium Chloride 50 meq/ Potassium Phosphate 13.6 mmol/Magnesium Sulfate 6 meq/ Calcium Gluconate 10 meq/ Multivitamins 5 ml/Zinc/Copper/ Manganese/ Selenium 1 ml/ Total Parenteral Nutrition/Amino Acids/Dextrose 1,512 ml @ 63 mls/hr TPN CONT IV Last administered on 02/12/21at 22:09; Start 02/12/21 at 22:00; Stop 02/13/21 at 21:59; Status DC Furosemide (Lasix) 40 mg 1X ONCE IVP Last administered on 02/12/21at 12:44; Start 02/12/21 at 12:30; Stop 02/12/21 at 12:31; Status DC Insulin Human Lispro (HumaLOG) 0-5 UNITS Q6HRS SQ Last administered on 02/24/21at 05:59; Start 02/12/21 at 12:00 Dextrose (Dextrose 50%-Water Syringe) 12.5 gm PRN Q15MIN PRN IV SEE COMMENTS; Start 02/12/21 at 12:15 Clonidine HCl (Catapres Tts-3) 1 patch WEEKLY TD Last administered on 02/20/21at 07:50; Start 02/13/21 at 11:00 Sodium Chloride 80 meq/Potassium Chloride 50 meq/ Potassium Phosphate 13.6 mmol/Magnesium Sulfate 6 meq/ Calcium Gluconate 10 meq/ Multivitamins 5 ml/Z inc/Copper/ Manganese/ Selenium 1 ml/ Total Parenteral Nutrition/Amino Acids/Dextrose 1,512 ml @ 63 mls/hr TPN CONT IV Last administered on 02/13/21at 21:42; Start 02/13/21 at 22:00; Stop 02/14/21 at 21:59; Status DC Potassium Acetate 50 meq/Potassium Phosphate 13.6 mmol/Magnesium Sulfate 6 meq/ Calcium Gluconate 10 meq/ Multivitamins 5 ml/Zinc/Copper/ Manganese/ Selenium 1 ml/ Total Parenteral Nutrition/Amino Acids/Dextrose 1,512 ml @ 63 mls/hr TPN CONT IV Last administered on 02/14/21at 21:59; Start 02/14/21 at 22:00; Stop 02/15/21 at 21:59; Status DC Insulin Glargine (Lantus Syringe) 10 unit QHS SQ Last administered on 02/15/21at 22:11; Start 02/14/21 at 21:00; Stop 02/16/21 at 12:42; Status DC Hydralazine HCl (Apresoline Inj) 10 mg PRN Q4HRS PRN IVP ELEVATED BP, SEE COMMENTS Last administered on 02/22/21at 08:11; Start 02/14/21 at 16:00 Potassium Acetate 50 meq/Potassium Phosphate 13.6 mmol/Magnesium Sulfate 6 meq/ Calcium Gluconate 10 meq/ Multivitamins 5 ml/Zinc/Copper/ Manganese/ Selenium 1 ml/ Total Parenteral Nutrition/Amino Acids/Dextrose 1,512 ml @ 63 mls/hr TPN CONT IV Last administered on 02/15/21at 22:13; Start 02/15/21 at 22:00; Stop 02/16/21 at 21:59; Status DC Dexmedetomidine HCl 400 mcg/ Sodium Chloride 100 ml @ 0 mls/hr CONT PRN IV PER PROTOCOL Last administered on 02/24/21at 10:28; Start 02/15/21 at 14:15 Sodium Chloride 500 ml @ 500 mls/hr 1X PRN PRN IV SEE COMMENTS; Start 02/15/21 at 14:15 Atropine Sulfate (ATROPINE 0.5mg SYRINGE) 0.5 mg PRN Q5MIN PRN IV SEE COMMENTS; Start 02/15/21 at 14:15 Potassium Acetate 50 meq/Potassium Phosphate 13.6 mmol/Magnesium Sulfate 6 meq/ Calcium Gluconate 10 meq/ Multivitamins 5 ml/Zinc/Copper/ Manganese/ Selenium 1 ml/ Total Parenteral Nutrition/Amino Acids/Dextrose 1,512 ml @ 63 mls/hr TPN C ONT IV Last administered on 02/16/21at 22:59; Start 02/16/21 at 22:00; Stop 02/17/21 at 21:59; Status DC Insulin Glargine (Lantus Syringe) 14 unit QHS SQ Last administered on 02/16/21at 21:14; Start 02/16/21 at 21:00; Stop 02/17/21 at 14:15; Status DC Potassium Acetate 50 meq/Potassium Phosphate 13.6 mmol/Magnesium Sulfate 6 meq/ Calcium Gluconate 10 meq/ Multivitamins 5 ml/Zinc/Copper/ Manganese/ Selenium 1 ml/ Total Parenteral Nutrition/Amino Acids/Dextrose 1,512 ml @ 63 mls/hr TPN CONT IV Last administered on 02/17/21at 20:48; Start 02/17/21 at 22:00; Stop 02/18/21 at 21:59; Status DC Dextrose 1,000 ml @ 75 mls/hr [id number] IV Last administered on 02/18/21at 13:51; Start 02/17/21 at 10:30; Stop 02/19/21 at 12:57; Status DC Insulin Glargine (Lantus Syringe) 18 unit QHS SQ Last administered on 02/17/21at 20:46; Start 02/17/21 at 21:00; Stop 02/18/21 at 11:56; Status DC Insulin Glargine (Lantus Syringe) 22 unit QHS SQ Last administered on 02/18/21at 21:00; Start 02/18/21 at 21:00; Stop 02/19/21 at 14:08; Status DC Potassium Acetate 50 meq/Potassium Phosphate 13.6 mmol/Magnesium Sulfate 6 meq/ Calcium Gluconate 10 meq/ Multivitamins 5 ml/Zinc/Copper/ Manganese/ Selenium 1 ml/ Total Parenteral Nutrition/Amino Acids/Dextrose 1,512 ml @ 63 mls/hr TPN CONT IV Last administered on 02/18/21at 21:43; Start 02/18/21 at 22:00; Stop 02/19/21 at 21:59; Status DC Potassium Acetate 50 meq/Potassium Phosphate 13.6 mmol/Magnesium Sulfate 6 meq/ Calcium Gluconate 10 meq/ Multivitamins 5 ml/Zinc/Copper/ Manganese/ Selenium 1 ml/ Total Parenteral Nutrition/Amino Acids/Dextrose 2,040 ml @ 85 mls/hr TPN CONT IV Last administered on 02/19/21at 20:56; Start 02/19/21 at 22:00; Stop 02/20/21 at 21:59; Status DC Insulin Glargine (Lantus Syringe) 25 unit QHS SQ Last administered on 02/20/21at 22:11; Start 02/19/21 at 21:00; Stop 02/21/21 at 10:10; Status DC Acetaminophen (Tylenol) 650 mg PRN Q6HRS PRN PEG MILD PAIN / TEMP > 100.3'F Last administered on 02/22/21at 08:10; Start 02/19/21 at 18:00 Potassium Acetate 50 meq/Potassium Phosphate 13.6 mmol/Magnesium Sulfate 6 meq/ Calcium Gluconate 10 meq/ Multivitamins 5 ml/Zinc/Copper/ Manganese/ Selenium 1 ml/ Total Parenteral Nutrition/Amino Acids/Dextrose 2,040 ml @ 85 mls/hr TPN CONT IV Last administered on 02/20/21at 22:10; Start 02/20/21 at 22:00; Stop 02/21/21 at 21:59; Status DC Insulin Glargine (Lantus Syringe) 27 unit QHS SQ Last administered on 02/23/21at 21:26; Start 02/21/21 at 21:00 Magnesium Sulfate 50 ml @ 25 mls/hr 1X ONCE IV Last administered on 02/21/21at 11:30; Start 02/21/21 at 11:00; Stop 02/21/21 at 12:59; Status DC Potassium Acetate 50 meq/Potassium Phosphate 13.6 mmol/Magnesium Sulfate 8 meq/ Calcium Gluconate 10 meq/ Multivitamins 5 ml/Zinc/Copper/ Manganese/ Selenium 1 ml/ Total Parenteral Nutrition/Amino Acids/Dextrose 2,040 ml @ 85 mls/hr TPN CONT IV Last administered on 02/21/21at 21:23; Start 02/21/21 at 22:00; Stop 02/22/21 at 21:59; Status DC Daptomycin 570 mg/ Sodium Chloride 50 ml @ 100 mls/hr Q24H IV Last administered on 02/23/21at 14:25; Start 02/22/21 at 12:00 Linezolid/Dextrose 300 ml @ 300 mls/hr Q12HR IV Last administered on 02/24/21at 09:59; Start 02/22/21 at 09:00 Potassium Acetate 50 meq/Potassium Phosphate 13.6 mmol/Magnesium Sulfate 8 meq/ Calcium Gluconate 5 meq/ Multivitamins 5 ml/Zinc/Copper/ Manganese/ Selenium 1 ml/ Total Parenteral Nutrition/Amino Acids/Dextrose 2,040 ml @ 85 mls/hr TPN CONT IV Last administered on 02/22/21at 21:32; Start 02/22/21 at 22:00; Stop 02/23/21 at 21:59; Status DC Fentanyl Citrate (Fentanyl 2ml Vial) 25 mcg PRN Q5MIN PRN IVP MILD PAIN 1-3; Start 02/23/21 at 06:00; Stop 02/24/21 at 05:59; Status DC Fentanyl Citrate (Fentanyl 2ml Vial) 50 mcg PRN Q5MIN PRN IVP MODERATE PAIN 4- 6; Start 02/23/21 at 06:00; Stop 02/24/21 at 05:59; Status DC Morphine Sulfate (Morphine Sulfate) 1 mg PRN Q10MIN PRN IVP SEVERE PAIN 7-10; Start 02/23/21 at 06:00; Stop 02/24/21 at 05:59; Status DC Ringer's Solution 1,000 ml @ 30 mls/hr Q24H IV Last administered on 02/23/21at 11:00; Start 02/23/21 at 06:00; Stop 02/23/21 at 17:59; Status DC Hydromorphone HCl (Dilaudid) 0.5 mg PRN Q10MIN PRN IVP SEVERE PAIN 7-10, 2nd CHOICE; Start 02/23/21 at 06:00; Stop 02/24/21 at 05:59; Status DC Prochlorperazine Edisylate (Compazine) 5 mg PACU PRN PRN IVP NAUSEA, MRX1; Start 02/23/21 at 06:00; Stop 02/24/21 at 05:59; Status DC Cellulose (Surgicel Fibrillar 1x2) 1 each STK-MED ONCE .ROUTE ; Start 02/23/21 at 08:23; Stop 02/23/21 at 08:23; Status DC Lidocaine/ Epinephrine (LIDOCAINE 1%-EPI 1:100,000 Multi-Dose) 20 ml STK-MED ONCE .ROUTE Last administered on 02/23/21at 13:33; Start 02/23/21 at 08:23; Stop 02/23/21 at 08:23; Status DC Potassium Acetate 50 meq/Potassium Phosphate 13.6 mmol/Magnesium Sulfate 8 meq/ Calcium Gluconate 5 meq/ Multivitamins 5 ml/Zinc/Copper/ Manganese/ Selenium 1 ml/ Total Parenteral Nutrition/Amino Acids/Dextrose 2,040 ml @ 85 mls/hr TPN CONT IV ; Start 02/23/21 at 22:00; Stop 02/24/21 at 21:59 Rocuronium Arbuckle (Zemuron) 50 mg STK-MED ONCE .ROUTE ; Start 02/23/21 at 12:13; Stop 02/23/21 at 12:13; Status DC Fentanyl Citrate (Fentanyl 2ml Vial) 100 mcg STK-MED ONCE .ROUTE ; Start 02/23/21 at 12:24; Stop 02/23/21 at 12:24; Status DC Insulin Human Lispro (HumaLOG VIAL for OP,RR ONLY) 0-10 units PRN Q1HR PRN SQ PER PROTOCOL Last administered on 02/23/21at 13:00; Start 02/23/21 at 13:15; Stop 02/24/21 at 13:14 Rocuronium Arbuckle (Zemuron) 100 mg STK-MED ONCE .ROUTE ; Start 02/23/21 at 13:22; Stop 02/23/21 at 13:23; Status DC Albuterol Sulfate (Ventolin Hfa) 60 puff STK-MED ONCE INH ; Start 02/23/21 at 13:47; Stop 02/23/21 at 13:48; Status DC Sevoflurane (Ultane) 60 ml STK-MED ONCE IH ; Start 02/23/21 at 14:21; Stop 02/23/21 at 14:21; Status DC Vitals/I & O Vital Sign - Last 24 Hours 02/23/21 02/23/21 02/23/21 02/23/21 12:00 12:00 13:00 13:05 Temp 99.2 99.2 Pulse 58 60 Resp 16 16 B/P (MAP) 152/88 (109) 159/91 (113) Pulse Ox 99 99 99 O2 Delivery Mechanical Ventilator Ventilator Ventilator Ventilator 02/23/21 02/23/21 02/23/21 02/23/21 14:00 15:00 16:00 16:00 Temp 98.3 98.3 Pulse 84 56 56 Resp 16 16 16 B/P (MAP) 115/75 (88) 144/83 (103) 143/86 (105) Pulse Ox 97 98 98 O2 Delivery Ventilator Ventilator Mechanical Ventilator Ventilator 02/23/21 02/23/21 02/23/21 02/23/21 16:07 17:00 18:00 19:00 Pulse 56 61 56 Resp 16 16 16 B/P (MAP) 138/84 (102) 135/84 (101) 134/85 (101) Pulse Ox 96 99 99 98 O2 Delivery Ventilator Ventilator Ventilator Ventilator 02/23/21 02/23/21 02/23/21 02/23/21 19:30 20:00 20:00 21:00 Temp 98.7 98.7 Pulse 62 58 Resp 16 17 B/P (MAP) 139/79 (99) 151/83 (105) Pulse Ox 99 96 97 O2 Delivery Ventilator Ventilator Mechanical Ventilator Ventilator 02/23/21 02/23/21 02/23/21 02/24/21 22:00 23:00 23:25 00:00 Pulse 61 57 Resp 18 16 B/P (MAP) 161/89 (113) 136/83 (100) Pulse Ox 97 97 97 O2 Delivery Ventilator Ventilator Ventilator Mechanical Ventilator 02/24/21 02/24/21 02/24/21 02/24/21 00:00 01:00 02:00 03:00 Temp 99.0 99.0 Pulse 59 60 63 60 Resp 16 16 16 16 B/P (MAP) 141/84 (103) 145/88 (107) 137/84 (101) 147/89 (108) Pulse Ox 99 98 98 97 O2 Delivery Ventilator Ventilator Ventilator Ventilator 02/24/21 02/24/21 02/24/21 02/24/21 03:10 04:00 04:00 05:00 Temp 99.0 99.0 Pulse 63 59 Resp 16 16 B/P (MAP) 117/75 (89) 130/77 (94) Pulse Ox 97 96 96 O2 Delivery Ventilator Mechanical Ventilator Ventilator Ventilator 02/24/21 02/24/21 02/24/21 06:00 08:00 08:28 Pulse 62 Resp 16 B/P (MAP) 117/78 (91) Pulse Ox 98 98 O2 Delivery Ventilator Mechanical Ventilator Ventilator Intake and Output 02/23/21 02/23/21 02/24/21 15:00 23:00 07:00 Intake Total 100 ml 1999 ml 407 ml Output Total 500 ml 820 ml 660 ml Balance -400 ml 1179 ml -253 ml Justifications for Admission Other Justification [employer] Feb 24, 2021 11:27
[2021-02-24] MEDS: TPN PER PHARMACY MC PRN ×2 (12:26→14:17)
[2021-02-24] MEDS: DAPTOmycin (GENERIC) IVPB 570 MG in IV NORMAL SALINE 50ML 50 ML IV SCH (13:10)
--- NOTE | 2021-02-24 14:19 | NUR ---
Pharmacy TPN Dosing Note S: COOPER CHAVEZ is a 61 year old M Currently receiving Central Continuous TPN started 02/11/21 B:Pertinent PMH: ILEUS, UNABLE TO START TUBE FEEDS Height: 6 feet, 2 inches Weight: 114.0 kg Current diet: NPO LABS: Sodium: 138 Potassium: 4.3 Chloride: 104 Calcium: 8.9 Corrected Calcium: 10.34 Magnesium: 2.1 CO2: 26 SCr: 0.9 Glucose: 144 Albumin: 2.2 AST: 60 ALT: 117 TPN FORMULA: TPN TYPE: Central Continuous AMINO ACIDS: 98 gm DEXTROSE: 255 gm LIPIDS: 0 gm SODIUM CHLORIDE: - mEq SODIUM ACETATE: - mEq SODIUM PHOSPHATE: - mmol POTASSIUM CHLORIDE: - mEq POTASSIUM ACETATE: 50 mEq POTASSIUM PHOSPHATE: 13.6 mmol MAGNESIUM: 8 mEq CALCIUM: 5 mEq INSULIN: - units MULTIPLE VITAMIN: 5 ml TRACE ELEMENTS: 1 ml ml(s) TPN PLAN: NO TPN YESTERDAY AND TODAY, NO CENTRAL LINE SINCE YESTERDAY, WILL GET CL TOMORROW. R: Hold TPN TODAY Will monitor electrolytes, glucose, and tolerance to TPN. [facility], 02/24/21 [id number]
--- NOTE | 2021-02-24 19:54 | NUR ---
Little change from previous days. Trach w less oozing over past 24H. Sed med w/o rate change. posterior head drsg change approved per Da.Area well approximated /scant drainage. Cleansed/redressed w mepelex dressing. Status quo-
[2021-02-24] MEDS: INSULIN GLARGINE SYRINGE. SQ SCH (21:05)
[2021-02-25] VITALS (23 sets, daily range): BP systolic 106–174; BP diastolic 69–89
[2021-02-25] MEDS: PROPOFOL 100 ML IV PRN ×5 (03:15→21:01)
[2021-02-25] MEDS: DEXMEDETOMIDINE 400 MCG in IV NORMAL SALINE 100ML 96 ML IV PRN ×4 (03:15→19:12)
[2021-02-25] MEDS: INSULIN LISPRO 300 UNITS/3 ML VIAL. SQ SCH ×3 (05:38→18:00)
[2021-02-25] MEDS: PIPERACILLIN/TAZOBACTAM 3.375 GM in IV NORMAL SALINE 50ML 50 ML IV SCH ×3 (05:39→19:12)
--- NOTE | 2021-02-25 08:19 | PDOC ---
Infectious Disease Note Subjective: Subjective Pt remains intubated ,sedated T max 99.5 Discussed with nursing staff Vital Signs: Vital Signs Vital Signs Date Time Temp Pulse Resp B/P (MAP) Pulse Ox O2 Delivery O2 Flow Rate FiO2 02/25/21 06:00 60 16 113/69 (84) 97 Ventilator 02/25/21 04:00 99.5 99.5 Physical Exam: PHYSICAL EXAM GENERAL: Sedated on vent HEENT: ETT/OGT + NECK trach present LUNGS: Decreased breath sound at bases HEART: S1, S2 bradycardia ABDOMEN: Soft, nontender, no organomegaly. EXTREMITIES: + less edema, no cyanosis. SKIN:no gen rash NEUROLOGIC: unable to assess Right IJ taken out Medications: Inpatient Meds: Medications reviewed. Labs: Lab Laboratory Tests Test 02/24/21 08:30 02/24/21 13:14 02/24/21 23:56 02/25/21 05:38 White Blood Count 7.9 x10^3/uL (4.0-11.0) Red Blood Count 3.85 x10^6/uL (4.30-5.70) Hemoglobin 11.3 g/dL (13.0-17.5) Hematocrit 34.4 % (39.0-53.0) Mean Corpuscular Volume 89 fL (79-100) Mean Corpuscular Hemoglobin 29 pg (25-35) Mean Corpuscular Hemoglobin Concent 33 g/dL (31-37) Red Cell Distribution Width 13.4 % (11.5-14.5) Platelet Count 243 x10^3/uL (140-400) Neutrophils (%) (Auto) 71 % (31-73) Lymphocytes (%) (Auto) 20 % (24-48) Monocytes (%) (Auto) 7 % (0-9) Eosinophils (%) (Auto) 2 % (0-3) Basophils (%) (Auto) 0 % (0-3) Neutrophils # (Auto) 5.6 x10^3/uL (1.8-7.7) Lymphocytes # (Auto) 1.5 x10^3/uL (1.0-4.8) Monocytes # (Auto) 0.6 x10^3/uL (0.0-1.1) Eosinophils # (Auto) 0.1 x10^3/uL (0.0-0.7) Basophils # (Auto) 0.0 x10^3/uL (0.0-0.2) Sodium Level 138 mmol/L (136-145) Potassium Level 4.3 mmol/L (3.5-5.1) Chloride Level 104 mmol/L (98-107) Carbon Dioxide Level 26 mmol/L (21-32) Anion Gap 8 (6-14) Blood Urea Nitrogen 20 mg/dL (8-26) Creatinine 1.1 mg/dL (0.7-1.3) Estimated GFR (Cockcroft-Gault) 82.6 Glucose Level 144 mg/dL (70-99) Calcium Level 8.9 mg/dL (8.5-10.1) Glucose (Fingerstick) 139 mg/dL (70-99) 169 mg/dL (70-99) 143 mg/dL (70-99) Objective: Assessment: 1. Fever. 2. Acute hypoxic respiratory failure status post intubation suspected aspiration.sputum cultures NRF 3. Intracranial bleed with mass effect, status post craniotomy and hematoma evacuation. 4. Encephalopathy 5. Respiratory failure. 6. Hypertension. 7. Chronic obstructive pulmonary disease. 8. MARVIN improved U/S BUE to neg for DVT Plan: Plan of Care cont Zosyn DC daptomycin Continue Zyvox F/U BC,UC,Sputum G/S and cult negative so far Central line removed Okay to proceed with PICC line placement Monitor labs and cults cont supportive care Discussed with nursing staff RAMU DELGADO MD Feb 25, 2021 08:19
[2021-02-25 09:26] LABS: BASO # 0.1 x10^3/uL (0.0-0.2); BASO % 1 % (0-3); EOS # 0.2 x10^3/uL (0.0-0.7); EOS % 2 % (0-3); HEMATOCRIT 34.6 % (39.0-53.0); HEMOGLOBIN 11.2 g/dL (13.0-17.5); LYMPH # 2.2 x10^3/uL (1.0-4.8); LYMPH % 26 % (24-48); MEAN CORPUSCULAR HEMOGLOBIN 29 pg (25-35); MEAN CORPUSCULAR HGB CONC 32 g/dL (31-37); MEAN CORPUSCULAR VOLUME 91 fL (79-100); MONO # 0.7 x10^3/uL (0.0-1.1); MONO % 9 % (0-9); NEUT # 5.3 x10^3/uL (1.8-7.7); NEUT % 63 % (31-73); PLATELET COUNT 246 x10^3/uL (140-400); RED BLOOD COUNT 3.81 x10^6/uL (4.30-5.70); RED CELL DISTRIBUTION WIDTH 13.7 % (11.5-14.5); WHITE BLOOD COUNT 8.4 x10^3/uL (4.0-11.0)
[2021-02-25 09:30] LABS: CALCIUM 9.3 mg/dL (8.5-10.1); GFR 92.2; POTASSIUM 4.1 mmol/L (3.5-5.1)
[2021-02-25] MEDS: fentaNYL HIGH DOSE PCA 55 ML IV PRN (09:31)
[2021-02-25] MEDS: PANTOPRAZOLE IV PUSH 40 MG VIAL. IVP SCH (09:40)
[2021-02-25 09:49] LABS: BASE EXCESS ABG -1 mmol/L (-3-3); HCO3 ABG 23 mmol/L (21-28); PCO2 ABG 34 mmHg (35-46); PO2 ABG 90 mmHg (65-108); SAT O2 ABG 96 % (92-99)
--- NOTE | 2021-02-25 09:52 | PDOC ---
[employer] PROGRESS NOTE Date of Service DOS: DATE: 02/25/21 TIME: 09:50 Chief Complaint Chief Complaint IMPRESSION Dizziness Large right temporo-occipital intraparenchymal bleed, most likely lobar hemorrhage from hypertension, consider venous sinus thrombosis, , aneurysmal bleed, Had craniotomy 02/09 evening Suspect aspiration, respiratory failure, hypertension, chronic obstructive pulmonary disease, improving acute kidney injury MORBID OBESITY Severe malnutrition History of Present Illness History of Present Illness 02/25/2021: Remains on vent with FiO2 40%, PEEP 5. Afebrile. Plan for follow-up CT head on Saturday. Continue Zosyn, per ID. Blood glucose well controlled. Critical care time 30 minutes spent reviewing charts, reviewing imaging, reviewing labs, and discussion with RN. 02/24/2021: Afebrile. Had tracheostomy performed yesterday. On vent with FiO2 40%, PEEP 5. Continue antibiotics, per ID. Critical care time 30 minutes reviewing labs, reviewing imaging, reviewing charts, discussed with RN. 02/23/2021: Patient remains intubated in ICU, FiO2 40%, PEEP 5. I believe plan is for trach today. Continue daptomycin, Zosyn, and Zyvox, per ID. Critical care time 30 minutes spent reviewing charts, reviewing labs, reviewing imaging, discussion with RN. 02/22/2011: Patient ange intubated in ICU. Febrile today, T-max 100.3. FiO2 40, PEEP 5. Continue treatment with Zosyn, per ID. Continue to wean sedation as tolerated. Plan for trach tomorrow. Critical care time 30 minutes spent jo ann freeman chart, reviewing labs, imaging, and discussion with RN. 02/21/2021: Patient remains intubated in ICU, FiO2 40%, PEEP 5. Afebrile. POD #12, s/p right occipital craniotomy with evacuation of intracerebral hematoma (02/09/21). Chest x-ray today shows improving bibasilar opacities. Continue Zosyn, per ID. Critical care time 30 minutes spent reviewing charts, reviewing labs, reviewing imaging, discussion with RN. 02/20/2021: POD #11 Right occipital craniotomy with evacuation of intracerebral hematoma (02/09/21). Remains sedated on ventilator, FiO2 40%, PEEP 5. Chest x- ray from 02/18 showed unchanged bibasilar opacities; recommending follow-up to ensure resolution, particularly of focal opacities in the right lung base. Continue Zosyn. Continue supportive care. Critical care time 30 minutes spent reviewing charts, reviewing labs, reviewing imaging, discussion with RN. 02/19/2021 POD #11 Right occipital craniotomy with evacuation of intracerebral hematoma sedated on vent Patient seen and examined at bedside Continue antibiotics per infectious disease Weaning ventilator and sedation as tolerated extubation in the next few days Plan of care discussed with bedside nurse Expected interval evolution of a right posterior temporal/occipital intraparenchymal hematoma status post decompressive craniotomy Large right temporo-occipital intraparenchymal bleed, most likely lobar hemorrh age from hypertension, consider venous sinus thrombosis, less likely in this location, aneurysmal bleed, head trauma (also unlikely). craniotomy 7/ evening Suspect of aspiration, respiratory failure, hypertension, chronic obstructive pulmonary disease, improving acute kidney injury cont Zosyn glucose uncontrolled add Lantus 22 UNITS SQ HS elevated troponin suspect stress induced ischemia 36 MIN CC TIME 02/18/2021 POD #10 Right occipital craniotomy with evacuation of intracerebral hematoma sedated on vent Patient seen and examined at bedside Continue antibiotics per infectious disease Weaning ventilator and sedation as tolerated extubation in the next few days Plan of care discussed with bedside nurse Expected interval evolution of a right posterior temporal/occipital intraparenchymal hematoma status post decompressive craniotomy Large right temporo-occipital intraparenchymal bleed, most likely lobar hemorrhage from hypertension, consider venous sinus thrombosis, less likely in this location, aneurysmal bleed, head trauma (also unlikely). Had craniotomy 7/ evening Suspect of aspiration, respiratory failure, hypertension, chronic obstructive pulmonary disease, improving acute kidney injury cont Zosyn glucose uncontrolled add Lantus 22 UNITS SQ HS 34 MIN CC TIME 02/17/2021 POD #8 Right occipital craniotomy with evacuation of intracerebral hematoma sedated on vent Patient seen and examined at bedside Good response to IV Lasix Continue antibiotics per infectious disease Weaning ventilator and sedation as tolerated extubation in the next few days Plan of care discussed with bedside nurse Expected interval evolution of a right posterior temporal/occipital intraparenchymal hematoma status post decompressive craniotomy Large right temporo-occipital intraparenchymal bleed, most likely lobar hemorrhage from hypertension, consider venous sinus thrombosis, less likely in this location, aneurysmal bleed, head trauma (also unlikely). Had craniotomy 7/ evening Suspect of aspiration, respiratory failure, hypertension, chronic obstructive pulmonary disease, improving acute kidney injury cont Zosyn glucose uncontrolled add Lantus 18 UNITS SQ HS 33 MIN CC TIME 02/16/2021 POD #7 Right occipital craniotomy with evacuation of intracerebral hematoma sedated on vent Patient seen and examined at bedside Good response to IV Lasix Continue antibiotics per infectious disease Weaning ventilator and sedation as tolerated extubation in the next few days Plan of care discussed with bedside nurse Expected interval evolution of a right posterior temporal/occipital intraparenchymal hematoma status post decompressive craniotomy Large right temporo-occipital intraparenchymal bleed, most likely lobar hemorrhage from hypertension, consider venous sinus thrombosis, less likely in this location, aneurysmal bleed, head trauma (also unlikely). Had craniotomy 02/09 evening Suspect of aspiration, respiratory failure, hypertension, chronic obstructive pulmonary disease, improving acute kidney injury cont Zosyn glucose uncontrolled add Lantus 14 UNITS SQ HS 35 MIN CC TIME 02/15/2021 POD #6 Right occipital craniotomy with evacuation of intracerebral hematoma sedated on vent Patient seen and examined at bedside Good response to IV Lasix Continue antibiotics per infectious disease Weaning ventilator and sedation as tolerated Hopeful extubation in the next few days Plan of care discussed with bedside nurse Expected interval evolution of a right posterior temporal/occipital intraparenchymal hematoma status post decompressive craniotomy Large right temporo-occipital intraparenchymal bleed, most likely lobar hemorrhage from hypertension, consider venous sinus thrombosis, less likely in this location, aneurysmal bleed, head trauma (also unlikely). Had craniotomy 7/ evening Suspect of aspiration, respiratory failure, hypertension, chronic obstructive pulmonary disease, improving acute kidney injury cont Zosyn glucose uncontrolled add Lantus 35 MIN CC TIME 02/14/2021 POD #5 Right occipital craniotomy with evacuation of intracerebral hematoma sedated on vent Patient seen and examined at bedside Good response to IV Lasix Continue antibiotics per infectious disease Weaning ventilator and sedation as tolerated Hopeful extubation in the next few days Plan of care discussed with bedside nurse Expected interval evolution of a right posterior temporal/occipital intraparenchymal hematoma status post decompressive craniotomy Large right temporo-occipital intraparenchymal bleed, most likely lobar hemorrhage from hypertension, consider venous sinus thrombosis, less likely in this location, aneurysmal bleed, head trauma (also unlikely). Had craniotomy 02/09 evening Suspect of aspiration, respiratory failure, hypertension, chronic obstructive pulmonary disease, improving acute kidney injury cont Zosyn glucose uncontrolled add Lantus 35 MIN CC TIME 02/13/2021 POD #4 Right occipital craniotomy with evacuation of intracerebral hematoma sedated on vent Patient seen and examined at bedside Good response to IV Lasix Continue antibiotics per infectious disease Weaning ventilator and sedation as tolerated Hopeful extubation in the next few days Plan of care discussed with bedside nurse Expected interval evolution of a right posterior temporal/occipital intrapare nchymal hematoma status post decompressive craniotomy Large right temporo-occipital intraparenchymal bleed, most likely lobar he morrhage from hypertension, consider venous sinus thrombosis, less likely in this location, aneurysmal bleed, head trauma (also unlikely). Had craniotomy 02/09 evening Suspect of aspiration, respiratory failure, hypertension, chronic obstructive pulmonary disease, improving acute kidney injury cont Zosyn 35 MIN CC TIME 02/12/2021 Patient seen and examined at bedside Remains intubated and sedated Good response to IV Lasix yesterday had nearly 3 L out; will diurese again today Continue antibiotics per infectious disease Weaning ventilator and sedation as tolerated Hopeful extubation in the next few days Plan of care discussed with bedside nurse 02/11/2021 Patient seen and examined at bedside No major clinical changes overnight however this morning patient has largely increased amount of secretions Chest x-ray concerning for possible pneumonia, will consult ID who recommended starting Zosyn Otherwise he remains intubated and sedated We will follow subspecialist input Plan discussed with bedside RN 02/10/2021 Patient seen and examined at bedside Underwent craniotomy yesterday due to unresponsiveness in the late afternoon; was also intubated Continues to have a poor neurologic status Neurology and neurosurgery following Discussed plan of care with bedside nurse Patient is a 61-year-old male transferred for to the ICU overnight due to hypertensive emergency and intracranial hemorrhage. Patient's mother at bedside provides most the history. She reports that patient had been in his usual state of health until yesterday morning when he reported feeling tired and having a headache. Patient mother reports he normally gets up early and goes outside however this was not the case yesterday. With this headache he took BC powder and went back to bed. Patient's mother reports that he was in and out of bed throughout most of the afternoon. Says patient did not eat anything yesterday which is very unusual for him. Approximately 1130 last night she had the patient get up to go to the bathroom and heard him fall. He however is able to get up and returned to bed; unknown if he hit his head at this time. Patient again woke up around 2 AM and woke up his mother asking for orange juice and then proceeded to fall again, she does not think he hit his head at this time. He was taken to hospital and found to have a systolic blood pressure greater than [address] scan found to have an intracranial hemorrhage. Due to severity of his condition he was transferred here. Patient's mother reports she is not aware of any past medical history other than hypertension which he intermittently takes hydrochlorothiazide for. Vitals/I&O Vitals/I&O: Vital Signs Date Time Temp Pulse Resp B/P (MAP) Pulse Ox O2 Delivery O2 Flow Rate FiO2 02/25/21 08:43 98 Ventilator 02/25/21 06:00 60 16 113/69 (84) 02/25/21 04:00 99.5 99.5 I & O 02/24/21 02/24/21 02/25/21 15:00 23:00 07:00 Intake Total 0 ml 675 ml 648.78 ml Output Total 445 ml 755 ml 675 ml Balance -445 ml -80 ml -26.22 ml Physical Exam Physical Exam: GENERAL: Sedated on vent HEENT: ETT/OGT + NECK trach present LUNGS: Decreased breath sound at bases HEART: S1, S2 bradycardia ABDOMEN: Soft, nontender, no organomegaly. EXTREMITIES: + less edema, no cyanosis. SKIN:no gen rash NEUROLOGIC: unable to assess Right IJ taken out General: Other Heart: Regular rate Lungs: Clear Abdomen: Normal bowel sounds Extremities: No clubbing, No edema Skin: Other (dressing C,D,I) Labs Labs: Laboratory Tests Test 02/24/21 13:14 02/24/21 23:56 02/25/21 05:38 02/25/21 09:05 Glucose (Fingerstick) 139 mg/dL (70-99) 169 mg/dL (70-99) 143 mg/dL (70-99) White Blood Count 8.4 x10^3/uL (4.0-11.0) Red Blood Count 3.81 x10^6/uL (4.30-5.70) Hemoglobin 11.2 g/dL (13.0-17.5) Hematocrit 34.6 % (39.0-53.0) Mean Corpuscular Volume 91 fL (79-100) Mean Corpuscular Hemoglobin 29 pg (25-35) Mean Corpuscular Hemoglobin Concent 32 g/dL (31-37) Red Cell Distribution Width 13.7 % (11.5-14.5) Platelet Count 246 x10^3/uL (140-400) Neutrophils (%) (Auto) 63 % (31-73) Lymphocytes (%) (Auto) 26 % (24-48) Monocytes (%) (Auto) 9 % (0-9) Eosinophils (%) (Auto) 2 % (0-3) Basophils (%) (Auto) 1 % (0-3) Neutrophils # (Auto) 5.3 x10^3/uL (1.8-7.7) Lymphocytes # (Auto) 2.2 x10^3/uL (1.0-4.8) Monocytes # (Auto) 0.7 x10^3/uL (0.0-1.1) Eosinophils # (Auto) 0.2 x10^3/uL (0.0-0.7) Basophils # (Auto) 0.1 x10^3/uL (0.0-0.2) Sodium Level 139 mmol/L (136-145) Potassium Level 4.1 mmol/L (3.5-5.1) Chloride Level 105 mmol/L (98-107) Carbon Dioxide Level 27 mmol/L (21-32) Anion Gap 7 (6-14) Blood Urea Nitrogen 24 mg/dL (8-26) Creatinine 1.0 mg/dL (0.7-1.3) Estimated GFR (Cockcroft-Gault) 92.2 Glucose Level 148 mg/dL (70-99) Calcium Level 9.3 mg/dL (8.5-10.1) Comment Review of Relevant I have reviewed the following items neela (where applicable) has been applied. Justifications for Admission Other Justification JEANINE NEWMAN MD Feb 25, 2021 09:52
--- NOTE | 2021-02-25 10:05 | PDOC ---
PULMONARY PROGRESS NOTES DATE: 02/25/21 TIME: 10:03 Subjective PT. remains on AC mode with vent support no other concerns from nursing Status post tracheostomy on 02/23 Vitals Vital Signs Date Time Temp Pulse Resp B/P (MAP) Pulse Ox O2 Delivery O2 Flow Rate FiO2 02/25/21 08:43 98 Ventilator 02/25/21 06:00 60 16 113/69 (84) 02/25/21 04:00 99.5 99.5 Comments ros unable to obtain intubated on vent Lungs: Clear Cardiovascular: S1, S2 Abdomen: Soft, Non-tender Extremities: No Edema Skin: Warm Labs Laboratory Tests Test 02/23/21 12:11 02/23/21 12:56 02/23/21 17:19 02/23/21 21:15 Glucose (Fingerstick) 245 mg/dL (70-99) 238 mg/dL (70-99) 173 mg/dL (70-99) 155 mg/dL (70-99) Test 02/24/21 00:18 02/24/21 05:57 02/24/21 08:30 02/24/21 13:14 Glucose (Fingerstick) 194 mg/dL (70-99) 153 mg/dL (70-99) 139 mg/dL (70-99) White Blood Count 7.9 x10^3/uL (4.0-11.0) Red Blood Count 3.85 x10^6/uL (4.30-5.70) Hemoglobin 11.3 g/dL (13.0-17.5) Hematocrit 34.4 % (39.0-53.0) Mean Corpuscular Volume 89 fL (79-100) Mean Corpuscular Hemoglobin 29 pg (25-35) Mean Corpuscular Hemoglobin Concent 33 g/dL (31-37) Red Cell Distribution Width 13.4 % (11.5-14.5) Platelet Count 243 x10^3/uL (140-400) Neutrophils (%) (Auto) 71 % (31-73) Lymphocytes (%) (Auto) 20 % (24-48) Monocytes (%) (Auto) 7 % (0-9) Eosinophils (%) (Auto) 2 % (0-3) Basophils (%) (Auto) 0 % (0-3) Neutrophils # (Auto) 5.6 x10^3/uL (1.8-7.7) Lymphocytes # (Auto) 1.5 x10^3/uL (1.0-4.8) Monocytes # (Auto) 0.6 x10^3/uL (0.0-1.1) Eosinophils # (Auto) 0.1 x10^3/uL (0.0-0.7) Basophils # (Auto) 0.0 x10^3/uL (0.0-0.2) Sodium Level 138 mmol/L (136-145) Potassium Level 4.3 mmol/L (3.5-5.1) Chloride Level 104 mmol/L (98-107) Carbon Dioxide Level 26 mmol/L (21-32) Anion Gap 8 (6-14) Blood Urea Nitrogen 20 mg/dL (8-26) Creatinine 1.1 mg/dL (0.7-1.3) Estimated GFR (Cockcroft-Gault) 82.6 Glucose Level 144 mg/dL (70-99) Calcium Level 8.9 mg/dL (8.5-10.1) Test 02/24/21 23:56 02/25/21 05:38 02/25/21 09:05 Glucose (Fingerstick) 169 mg/dL (70-99) 143 mg/dL (70-99) White Blood Count 8.4 x10^3/uL (4.0-11.0) Red Blood Count 3.81 x10^6/uL (4.30-5.70) Hemoglobin 11.2 g/dL (13.0-17.5) Hematocrit 34.6 % (39.0-53.0) Mean Corpuscular Volume 91 fL (79-100) Mean Corpuscular Hemoglobin 29 pg (25-35) Mean Corpuscular Hemoglobin Concent 32 g/dL (31-37) Red Cell Distribution Width 13.7 % (11.5-14.5) Platelet Count 246 x10^3/uL (140-400) Neutrophils (%) (Auto) 63 % (31-73) Lymphocytes (%) (Auto) 26 % (24-48) Monocytes (%) (Auto) 9 % (0-9) Eosinophils (%) (Auto) 2 % (0-3) Basophils (%) (Auto) 1 % (0-3) Neutrophils # (Auto) 5.3 x10^3/uL (1.8-7.7) Lymphocytes # (Auto) 2.2 x10^3/uL (1.0-4.8) Monocytes # (Auto) 0.7 x10^3/uL (0.0-1.1) Eosinophils # (Auto) 0.2 x10^3/uL (0.0-0.7) Basophils # (Auto) 0.1 x10^3/uL (0.0-0.2) Sodium Level 139 mmol/L (136-145) Potassium Level 4.1 mmol/L (3.5-5.1) Chloride Level 105 mmol/L (98-107) Carbon Dioxide Level 27 mmol/L (21-32) Anion Gap 7 (6-14) Blood Urea Nitrogen 24 mg/dL (8-26) Creatinine 1.0 mg/dL (0.7-1.3) Estimated GFR (Cockcroft-Gault) 92.2 Glucose Level 148 mg/dL (70-99) Calcium Level 9.3 mg/dL (8.5-10.1) Laboratory Tests Test 02/24/21 13:14 02/24/21 23:56 02/25/21 05:38 02/25/21 09:05 Glucose (Fingerstick) 139 mg/dL (70-99) 169 mg/dL (70-99) 143 mg/dL (70-99) White Blood Count 8.4 x10^3/uL (4.0-11.0) Red Blood Count 3.81 x10^6/uL (4.30-5.70) Hemoglobin 11.2 g/dL (13.0-17.5) Hematocrit 34.6 % (39.0-53.0) Mean Corpuscular Volume 91 fL (79-100) Mean Corpuscular Hemoglobin 29 pg (25-35) Mean Corpuscular Hemoglobin Concent 32 g/dL (31-37) Red Cell Distribution Width 13.7 % (11.5-14.5) Platelet Count 246 x10^3/uL (140-400) Neutrophils (%) (Auto) 63 % (31-73) Lymphocytes (%) (Auto) 26 % (24-48) Monocytes (%) (Auto) 9 % (0-9) Eosinophils (%) (Auto) 2 % (0-3) Basophils (%) (Auto) 1 % (0-3) Neutrophils # (Auto) 5.3 x10^3/uL (1.8-7.7) Lymphocytes # (Auto) 2.2 x10^3/uL (1.0-4.8) Monocytes # (Auto) 0.7 x10^3/uL (0.0-1.1) Eosinophils # (Auto) 0.2 x10^3/uL (0.0-0.7) Basophils # (Auto) 0.1 x10^3/uL (0.0-0.2) Sodium Level 139 mmol/L (136-145) Potassium Level 4.1 mmol/L (3.5-5.1) Chloride Level 105 mmol/L (98-107) Carbon Dioxide Level 27 mmol/L (21-32) Anion Gap 7 (6-14) Blood Urea Nitrogen 24 mg/dL (8-26) Creatinine 1.0 mg/dL (0.7-1.3) Estimated GFR (Cockcroft-Gault) 92.2 Glucose Level 148 mg/dL (70-99) Calcium Level 9.3 mg/dL (8.5-10.1) Comments CXR 02/21/21 IMPRESSION: 1. Stable life support devices. 2. Improving bibasilar opacities.. CXR 02/18/21 IMPRESSION: Unchanged bibasilar opacities. Recommend follow-up to ensure resolution, particularly of focal opacities in the right lung base. CXR 02/17/21 IMPRESSION: 1. Stable life support devices. 2. Stable bibasilar opacities. 3. Stable small left pleural effusion. IMPRESSION: Chest x-ray 02/13 1. Stable support lines and tubes. 2. Severe right upper lobe predominant bullous emphysema. 3. Stable right perihilar linear atelectasis or infiltrate superimposed on diffuse interstitial prominence and small pleural effusions. Impression . IMPRESSION: 1. Acute hypoxic respiratory failure multifactorial, predominantly to in traparenchymal cerebral hematoma. Status post tracheostomy 02/23 2. Abnormal x-ray 3. Long history of tobaccoism. CT angiogram showed bullous emphysema in the upper lobes. 3. Acute kidney injury--resolved 4. Leukocytosis--resolved 5. s/p Right occipital craniotomy with evacuation of intracerebral hematoma. 02/09/21 6. Encephalopathy, multifactorial--ongoing 7. Uncontrolled hypertension 8. Fever, per ID CT head 02/13, discussed with Dr. Louie IMPRESSION: 1. Expected interval evolution of a right posterior temporal/occipital intraparenchymal hematoma status post decompressive craniotomy. 2. Expected evolution of a small amount of subarachnoid and intraventricular clot. DATE OF SURGERY: 02/09/2021 PREOPERATIVE DIAGNOSIS: Right posterior temporoparietal occipital intracerebral hemorrhage with neurologic deterioration. POSTOPERATIVE DIAGNOSIS: Right posterior temporoparietal occipital intracerebral hemorrhage with neurologic deterioration. OPERATION PERFORMED: Right occipital craniotomy with evacuation of intracerebral hematoma. Plan . Updated 02/25/21 Continue current vent support A/C mode rate of 16 at 40%. Status post tracheostomy 02/23 Follow ABG/CXR-- no changes Follow ID recs for ABX on zosyn Follow Cardiology recs Follow neurosurgery recs-- S/P Right occipital craniotomy with evacuation of intracerebral hematoma--02/09/21 TPN for nutritional support Hyperglycemia per PCP DVT/GI PPX D/W RN and RT Social work for LTAC transfer Will need PEG tube Updated 02/24/21 Continue current vent support A/C mode rate of 16 at 40%. Status post tracheostomy 02/23 Follow ABG/CXR-- no changes Follow ID recs for ABX on zosyn Follow Cardiology recs Follow neurosurgery recs-- S/P Right occipital craniotomy with evacuation of intracerebral hematoma--02/09/21 TPN for nutritional support Hyperglycemia per PCP DVT/GI PPX D/W RN and RT Social work for LTAC transfer post trach Updated 02/23/21 Continue current vent support A/C mode rate of 16 at 40% Follow ABG/CXR-- no changes Follow ENT recs for trach-- plan for today Follow ID recs for ABX on zosyn Follow Cardiology recs Follow neurosurgery recs-- S/P Right occipital craniotomy with evacuation of intracerebral hematoma--02/09/21 TPN for nutritional support Hyperglycemia per PCP DVT/GI PPX D/W RN and RT Social work for LTAC transfer post trach Updated 02/22/21 Continue current vent support A/C mode rate of 16 at 40% Follow ABG/CXR-- no changes Follow ENT recs for trach-- plan for am Follow ID recs for ABX on zosyn Follow Cardiology recs Follow neurosurgery recs-- S/P Right occipital craniotomy with evacuation of intracerebral hematoma--02/09/21 TPN for nutritional support Hyperglycemia per PCP DVT/GI PPX D/W RN and RT Social work for LTAC transfer post trach Updated 02/21/21 Continue current vent support A/C mode rate of 16 at 40% Follow ABG/CXR-- no changes Follow ENT recs for trach-- plan for Saturday Follow ID recs for ABX on zosyn Follow Cardiology recs Follow neurosurgery recs-- S/P Right occipital craniotomy with evacuation of intracerebral hematoma--02/09/21 TPN for nutritional support Hyperglycemia per PCP DVT/GI PPX D/W RN and RT Social work for DC planning Updated 02/20 General surgery unavailable for trach We will consult ENT Antibiotics per ID Patient had a T-max yesterday 100.2 DVT GI prophylaxis A.m. ABG and chest x-ray UPDATED 02/19/21 Continue current vent support A/C mode Follow surgery recs for trach-- plan for next week Follow ID recs for ABX on zosyn Follow Cardiology recs Follow neurosurgery recs-- POD#11 S/P Right occipital craniotomy with evacuation of intracerebral hematoma TPN for nutritional support Hyperglycemia per PCP Cardene gtt for HTN PRN DVT/GI PPX D/W RN and RT Social work for DC planning RJAIV HORNE MD Feb 25, 2021 10:05
[2021-02-25] MEDS: TPN PER PHARMACY MC PRN (12:24)
--- NOTE | 2021-02-25 12:24 | NUR ---
Pharmacy TPN Dosing Note S: COOPER CHAVEZ is a 61 year old M Currently receiving Central Continuous TPN started 02/11/21 B:Pertinent PMH: ILEUS, UNABLE TO START TUBE FEEDS Height: 6 feet, 2 inches Weight: 112.9 kg Current diet: NPO LABS: Sodium: 139 Potassium: 4.1 Chloride: 105 Calcium: 9.3 Corrected Calcium: 10.74 Magnesium: 2.1 CO2: 27 SCr: 1 Glucose: 143-148 Albumin: 2.2 AST: 60 ALT: 117 TPN FORMULA: TPN TYPE: Central Continuous AMINO ACIDS: 98 gm DEXTROSE: 255 gm POTASSIUM ACETATE: 50 mEq POTASSIUM PHOSPHATE: 13.6 mmol MAGNESIUM: 8 mEq CALCIUM: 5 mEq MULTIPLE VITAMIN: 5 ml TRACE ELEMENTS: 1 ml ml(s) TPN PLAN: PICC to be placed today. Propofol still running. Contine previous TPN formula. BMP, Mag and Phos in AM R: Continue same TPN formula. Will monitor electrolytes, glucose, and tolerance to TPN. MIKALA RIGGS RPH, 02/25/21 [id number]
[2021-02-25 14:12] LABS: FIO2 ABG 40% VENT
[2021-02-25] MEDS: INSULIN GLARGINE SYRINGE. SQ SCH (20:59)
[2021-02-25] MEDS: hydrALAZINE 20 MG/ML VIAL. IVP PRN (21:28)
[2021-02-25] MEDS ORDERED: [UNRECOGNIZED DRUG - OTHER] IV SCH (22:00)
[2021-02-25] MEDS ORDERED: DEXTROSE 70% IV SCH (22:00)
[2021-02-25] MEDS ORDERED: AMINO ACID IV SCH (22:00)
[2021-02-25] MEDS ORDERED: TOTAL PARENTERAL NUTRITION IV SCH (22:00)
--- NOTE | 2021-02-25 22:02 | NUR ---
TPN non administered, due to lack of central line access. Tg is aware of PICC need, has not yet arrived. Checked in with Diann nursing pot room supervisor who has attempted a few calls to get a hold of tg.
[2021-02-26] VITALS (30 sets, daily range): BP systolic 129–198; BP diastolic 65–91
[2021-02-26] MEDS: PIPERACILLIN/TAZOBACTAM 3.375 GM in IV NORMAL SALINE 50ML 50 ML IV SCH ×5 (00:08→23:33)
[2021-02-26] MEDS: DEXMEDETOMIDINE 400 MCG in IV NORMAL SALINE 100ML 96 ML IV PRN ×5 (00:09→23:33)
[2021-02-26] MEDS: PROPOFOL 100 ML IV PRN ×5 (00:09→21:18)
[2021-02-26] MEDS: LABETALOL 20 MG/4 ML DISP.SYRIN. IVP PRN ×2 (00:48→03:03)
[2021-02-26] MEDS: hydrALAZINE 20 MG/ML VIAL. IVP PRN (01:56)
[2021-02-26] MEDS: INSULIN LISPRO 300 UNITS/3 ML VIAL. SQ SCH ×5 (05:17→23:40)
[2021-02-26 09:23] LABS: BASE EXCESS ABG -1 mmol/L (-3-3); HCO3 ABG 22 mmol/L (21-28); PCO2 ABG 33 mmHg (35-46); PO2 ABG 59 mmHg (65-108); SAT O2 ABG 90 % (92-99)
--- NOTE | 2021-02-26 09:25 | PDOC ---
[facility] PROGRESS NOTE Date of Service DOS: DATE: 02/26/21 TIME: 09:09 Chief Complaint Chief Complaint IMPRESSION Dizziness Large right temporo-occipital intraparenchymal bleed, most likely lobar hemorrhage from hypertension, consider venous sinus thrombosis, , aneurysmal bleed, Had craniotomy 02/09 evening Suspect aspiration, respiratory failure, hypertension, chronic obstructive pulmonary disease, improving acute kidney injury MORBID OBESITY Severe malnutrition History of Present Illness History of Present Illness 02/26/2021: Low-grade fever overnight (99.6 F). On vent with FiO2 40%, PEEP 5. S/p tracheostomy 02/23. Per RN, some hypertension overnight (systolic BP 203) requiring IV nicardipine, but this has been titrated down and now able to resume as needed hydralazine. Recommend keep nicardipine on standby to maintain blood pressure <150/90 mmHg. Continue TPN but will likely need PEG tube and eventually long-term acute care. Due to low-grade fever, lines are being changed. Cont inue Zosyn and Zyvox, per ID. Critical care time 30 minutes spent reviewing charts, reviewing imaging, reviewing labs, and discussion with RN. 02/25/2021: Remains on vent with FiO2 40%, PEEP 5. Afebrile. Plan for follow-up CT head on Saturday. Continue Zosyn, per ID. Blood glucose well controlled. Critical care time 30 minutes spent reviewing charts, reviewing imaging, reviewing labs, and discussion with RN. 02/24/2021: Afebrile. Had tracheostomy performed yesterday. On vent with FiO2 40%, PEEP 5. Continue antibiotics, per ID. Critical care time 30 minutes reviewing labs, reviewing imaging, reviewing charts, discussed with RN. 02/23/2021: Patient remains intubated in ICU, FiO2 40%, PEEP 5. I believe plan is for trach today. Continue daptomycin, Zosyn, and Zyvox, per ID. Critical care time 30 minutes spent reviewing charts, reviewing labs, reviewing imaging, discussion with RN. 02/22/2011: Patient ange intubated in ICU. Febrile today, T-max 100.3. FiO2 40, PEEP 5. Continue treatment with Zosyn, per ID. Continue to wean sedation as tolerated. Plan for trach tomorrow. Critical care time 30 minutes spent reviewing chart, reviewing labs, imaging, and discussion with RN. 02/21/2021: Patient remains intubated in ICU, FiO2 40%, PEEP 5. Afebrile. POD #12, s/p right occipital craniotomy with evacuation of intracerebral hematoma (02/09/21). Chest x-ray today shows improving bibasilar opacities. Continue Zosyn, per ID. Critical care time 30 minutes spent reviewing charts, reviewing labs, reviewing imaging, discussion with RN. 02/20/2021: POD #11 Right occipital craniotomy with evacuation of intracerebral hematoma (02/09/21). Remains sedated on ventilator, FiO2 40%, PEEP 5. Chest x- ray from 02/18 showed unchanged bibasilar opacities; recommending follow-up t o ensure resolution, particularly of focal opacities in the right lung base. Continue Zosyn. Continue supportive care. Critical care time 30 minutes spent reviewing charts, reviewing labs, reviewing imaging, discussion with RN. 02/19/2021 POD #11 Right occipital craniotomy with evacuation of intracerebral hematoma sedated on vent Patient seen and examined at bedside Continue antibiotics per infectious disease Weaning ventilator and sedation as tolerated extubation in the next few days Plan of care discussed with bedside nurse Expected interval evolution of a right posterior temporal/occipital intraparenchymal hematoma status post decompressive craniotomy Large right temporo-occipital intraparenchymal bleed, most likely lobar hemorrhage from hypertension, consider venous sinus thrombosis, less likely in this location, aneurysmal bleed, head trauma (also unlikely). craniotomy 02/09 evening Suspect of aspiration, respiratory failure, hypertension, chronic obstructive pulmonary disease, improving acute kidney injury cont Zosyn glucose uncontrolled add Lantus 22 UNITS SQ HS elevated troponin suspect stress induced ischemia 36 MIN CC TIME 02/18/2021 POD #10 Right occipital craniotomy with evacuation of intracerebral hematoma sedated on vent Patient seen and examined at bedside Continue antibiotics per infectious disease Weaning ventilator and sedation as tolerated extubation in the next few days Plan of care discussed with bedside nurse Expected interval evolution of a right posterior temporal/occipital intraparenchymal hematoma status post decompressive craniotomy Large right temporo-occipital intraparenchymal bleed, most likely lobar hemorrhage from hypertension, consider venous sinus thrombosis, less likely in this location, aneurysmal bleed, head trauma (also unlikely). Had craniotomy 7/ evening Suspect of aspiration, respiratory failure, hypertension, chronic obstructive pulmonary disease, improving acute kidney injury cont Zosyn glucose uncontrolled add Lantus 22 UNITS SQ HS 34 MIN CC TIME 02/17/2021 POD #8 Right occipital craniotomy with evacuation of intracerebral hematoma sedated on vent Patient seen and examined at bedside Good response to IV Lasix Continue antibiotics per infectious disease Weaning ventilator and sedation as tolerated extubation in the next few days Plan of care discussed with bedside nurse Expected interval evolution of a right posterior temporal/occipital intraparenchymal hematoma status post decompressive craniotomy Large right temporo-occipital intraparenchymal bleed, most likely lobar hemorrhage from hypertension, consider venous sinus thrombosis, less likely in this location, aneurysmal bleed, head trauma (also unlikely). Had craniotomy 02/09 evening Suspect of aspiration, respiratory failure, hypertension, chronic obstructive pulmonary disease, improving acute kidney injury cont Zosyn glucose uncontrolled add Lantus 18 UNITS SQ HS 33 MIN CC TIME 02/16/2021 POD #7 Right occipital craniotomy with evacuation of intracerebral hematoma sedated on vent Patient seen and examined at bedside Good response to IV Lasix Continue antibiotics per infectious disease Weaning ventilator and sedation as tolerated extubation in the next few days Plan of care discussed with bedside nurse Expected interval evolution of a right posterior temporal/occipital intraparenchymal hematoma status post decompressive craniotomy Large right temporo-occipital intraparenchymal bleed, most likely lobar hemorrhage from hypertension, consider venous sinus thrombosis, less likely in this location, aneurysmal bleed, head trauma (also unlikely). Had craniotomy 7/ evening Suspect of aspiration, respiratory failure, hypertension, chronic obstructive pulmonary disease, improving acute kidney injury cont Zosyn glucose uncontrolled add Lantus 14 UNITS SQ HS 35 MIN CC TIME 02/15/2021 POD #6 Right occipital craniotomy with evacuation of intracerebral hematoma sedated on vent Patient seen and examined at bedside Good response to IV Lasix Continue antibiotics per infectious disease Weaning ventilator and sedation as tolerated Hopeful extubation in the next few days Plan of care discussed with bedside nurse Expected interval evolution of a right posterior temporal/occipital intraparenchymal hematoma status post decompressive craniotomy Large right temporo-occipital intraparenchymal bleed, most likely lobar hemorrhage from hypertension, consider venous sinus thrombosis, less likely in this location, aneurysmal bleed, head trauma (also unlikely). Had craniotomy 02/09 evening Suspect of aspiration, respiratory failure, hypertension, chronic obstructive pulmonary disease, improving acute kidney injury cont Zosyn glucose uncontrolled add Lantus 35 MIN CC TIME 02/14/2021 POD #5 Right occipital craniotomy with evacuation of intracerebral hematoma sedated on vent Patient seen and examined at bedside Good response to IV Lasix Continue antibiotics per infectious disease Weaning ventilator and sedation as tolerated Hopeful extubation in the next few days Plan of care discussed with bedside nurse Expected interval evolution of a right posterior temporal/occipital intraparenchymal hematoma status post decompressive craniotomy Large right temporo-occipital intraparenchymal bleed, most likely lobar hemorrhage from hypertension, consider venous sinus thrombosis, less likely in this location, aneurysmal bleed, head trauma (also unlikely). Had craniotomy 02/09 evening Suspect of aspiration, respiratory failure, hypertension, chronic obstructive pulmonary disease, improving acute kidney injury cont Zosyn glucose uncontrolled add Lantus 35 MIN CC TIME 02/13/2021 POD #4 Right occipital craniotomy with evacuation of intracerebral hematoma sedated on vent Patient seen and examined at bedside Good response to IV Lasix Continue antibiotics per infectious disease Weaning ventilator and sedation as tolerated Hopeful extubation in the next few days Plan of care discussed with bedside nurse Expected interval evolution of a right posterior temporal/occipital intraparenchymal hematoma status post decompressive craniotomy Large right temporo-occipital intraparenchymal bleed, most likely lobar hemorrhage from hypertension, consider venous sinus thrombosis, less likely in this location, aneurysmal bleed, head trauma (also unlikely). Had craniotomy 02/09 evening Suspect of aspiration, respiratory failure, hypertension, chronic obstructive pulmonary disease, improving acute kidney injury cont Zosyn 35 MIN CC TIME 02/12/2021 Patient seen and examined at bedside Remains intubated and sedated Good response to IV Lasix yesterday had nearly 3 L out; will diurese again today Continue antibiotics per infectious disease Weaning ventilator and sedation as tolerated Hopeful extubation in the next few days Plan of care discussed with bedside nurse 02/11/2021 Patient seen and examined at bedside No major clinical changes overnight however this morning patient has largely increased amount of secretions Chest x-ray concerning for possible pneumonia, will consult ID who recommended starting Zosyn Otherwise he remains intubated and sedated We will follow subspecialist input Plan discussed with bedside RN 02/10/2021 Patient seen and examined at bedside Underwent craniotomy yesterday due to unresponsiveness in the late afternoon; was also intubated Continues to have a poor neurologic status Neurology and neurosurgery following Discussed plan of care with bedside nurse Patient is a 61-year-old male transferred for to the ICU overnight due to hypertensive emergency and intracranial hemorrhage. Patient's mother at bedside provides most the history. She reports that patient had been in his usual state of health until yesterday morning when he reported feeling tired and having a headache. Patient mother reports he normally gets up early and goes outside however this was not the case yesterday. With this headache he took BC powder and went back to bed. Patient's mother reports that he was in and out of bed throughout most of the afternoon. Says patient did not eat anything yesterday which is very unusual for him. Approximately 1130 last night she had the patient get up to go to the bathroom and heard him fall. He however is able to get up and returned to bed; unknown if he hit his head at this time. Patient again woke up around 2 AM and woke up his mother asking for orange juice and then proceeded to fall again, she does not think he hit his head at this time. He was taken to hospital and found to have a systolic blood pressure greater than [address] scan found to have an intracranial hemorrhage. Due to severity of his condition he was transferred here. Patient's mother reports she is not aware of any past medical history other than hypertension which he intermittently takes hydrochlorothiazide for. Vitals/I&O Vitals/I&O: Vital Signs Date Time Temp Pulse Resp B/P (MAP) Pulse Ox O2 Delivery O2 Flow Rate FiO2 02/26/21 08:59 100 Ventilator 02/26/21 06:00 64 16 159/74 (102) 02/26/21 04:00 99.6 99.6 I & O 02/25/21 02/25/21 02/26/21 15:00 23:00 07:00 Intake Total 1295 ml 764 ml Output Total 700 ml 1025 ml 1250 ml Balance -700 ml 270 ml -486 ml Physical Exam Physical Exam: GENERAL: Sedated on vent HEENT: ETT/OGT + NECK trach present LUNGS: Decreased breath sound at bases HEART: S1, S2 bradycardia ABDOMEN: Soft, nontender, no organomegaly. EXTREMITIES: + less edema, no cyanosis. SKIN:no gen rash NEUROLOGIC: unable to assess Right IJ taken out General: Other Heart: Regular rate Lungs: Clear Abdomen: Normal bowel sounds Extremities: No clubbing, No edema Skin: Other (dressing C,D,I) Labs Labs: Laboratory Tests Test 02/25/21 13:20 02/25/21 20:58 02/26/21 00:07 02/26/21 05:17 Glucose (Fingerstick) 169 mg/dL (70-99) 132 mg/dL (70-99) 162 mg/dL (70-99) 178 mg/dL (70-99) Comment Review of Relevant I have reviewed the following items neela (where applicable) has been applied. Justifications for Admission Other Justification JEAINNE NEWMAN MD Feb 26, 2021 09:25
[2021-02-26 09:26] LABS: FIO2 ABG 40% VENT
--- NOTE | 2021-02-26 09:56 | PDOC ---
PULMONARY PROGRESS NOTES DATE: 02/26/21 TIME: 09:55 Subjective PT. remains on AC mode with vent support no other concerns from nursing Status post tracheostomy on 02/23 Vitals Vital Signs Date Time Temp Pulse Resp B/P (MAP) Pulse Ox O2 Delivery O2 Flow Rate FiO2 02/26/21 08:59 100 Ventilator 02/26/21 06:00 64 16 159/74 (102) 02/26/21 04:00 99.6 99.6 Comments ros unable to obtain intubated on vent Lungs: Clear Cardiovascular: S1, S2 Abdomen: Soft, Non-tender Extremities: No Edema Skin: Warm Labs Laboratory Tests Test 02/24/21 13:14 02/24/21 23:56 02/25/21 05:38 02/25/21 09:00 Glucose (Fingerstick) 139 mg/dL (70-99) 169 mg/dL (70-99) 143 mg/dL (70-99) O2 Saturation 96 % (92-99) Arterial Blood pH 7.45 (7.35-7.45) Arterial Blood pCO2 at Patient Temp 34 mmHg (35-46) Arterial Blood pO2 at Patient Temp 90 mmHg (65-108) Arterial Blood HCO3 23 mmol/L (21-28) Arterial Blood Base Excess -1 mmol/L (-3-3) FiO2 40% vent Test 02/25/21 09:05 02/25/21 13:20 02/25/21 20:58 02/26/21 00:07 White Blood Count 8.4 x10^3/uL (4.0-11.0) Red Blood Count 3.81 x10^6/uL (4.30-5.70) Hemoglobin 11.2 g/dL (13.0-17.5) Hematocrit 34.6 % (39.0-53.0) Mean Corpuscular Volume 91 fL (79-100) Mean Corpuscular Hemoglobin 29 pg (25-35) Mean Corpuscular Hemoglobin Concent 32 g/dL (31-37) Red Cell Distribution Width 13.7 % (11.5-14.5) Platelet Count 246 x10^3/uL (140-400) Neutrophils (%) (Auto) 63 % (31-73) Lymphocytes (%) (Auto) 26 % (24-48) Monocytes (%) (Auto) 9 % (0-9) Eosinophils (%) (Auto) 2 % (0-3) Basophils (%) (Auto) 1 % (0-3) Neutrophils # (Auto) 5.3 x10^3/uL (1.8-7.7) Lymphocytes # (Auto) 2.2 x10^3/uL (1.0-4.8) Monocytes # (Auto) 0.7 x10^3/uL (0.0-1.1) Eosinophils # (Auto) 0.2 x10^3/uL (0.0-0.7) Basophils # (Auto) 0.1 x10^3/uL (0.0-0.2) Sodium Level 139 mmol/L (136-145) Potassium Level 4.1 mmol/L (3.5-5.1) Chloride Level 105 mmol/L (98-107) Carbon Dioxide Level 27 mmol/L (21-32) Anion Gap 7 (6-14) Blood Urea Nitrogen 24 mg/dL (8-26) Creatinine 1.0 mg/dL (0.7-1.3) Estimated GFR (Cockcroft-Gault) 92.2 Glucose Level 148 mg/dL (70-99) Calcium Level 9.3 mg/dL (8.5-10.1) Glucose (Fingerstick) 169 mg/dL (70-99) 132 mg/dL (70-99) 162 mg/dL (70-99) Test 02/26/21 05:17 02/26/21 09:00 Glucose (Fingerstick) 178 mg/dL (70-99) O2 Saturation 90 % (92-99) Arterial Blood pH 7.44 (7.35-7.45) Arterial Blood pCO2 at Patient Temp 33 mmHg (35-46) Arterial Blood pO2 at Patient Temp 59 mmHg (65-108) Arterial Blood HCO3 22 mmol/L (21-28) Arterial Blood Base Excess -1 mmol/L (-3-3) FiO2 40% vent Laboratory Tests Test 02/25/21 13:20 02/25/21 20:58 02/26/21 00:07 02/26/21 05:17 Glucose (Fingerstick) 169 mg/dL (70-99) 132 mg/dL (70-99) 162 mg/dL (70-99) 178 mg/dL (70-99) Test 02/26/21 09:00 O2 Saturation 90 % (92-99) Arterial Blood pH 7.44 (7.35-7.45) Arterial Blood pCO2 at Patient Temp 33 mmHg (35-46) Arterial Blood pO2 at Patient Temp 59 mmHg (65-108) Arterial Blood HCO3 22 mmol/L (21-28) Arterial Blood Base Excess -1 mmol/L (-3-3) FiO2 40% vent Comments CXR 02/21/21 IMPRESSION: 1. Stable life support devices. 2. Improving bibasilar opacities.. CXR 02/18/21 IMPRESSION: Unchanged bibasilar opacities. Recommend follow-up to ensure resolution, particularly of focal opacities in the right lung base. CXR 02/17/21 IMPRESSION: 1. Stable life support devices. 2. Stable bibasilar opacities. 3. Stable small left pleural effusion. IMPRESSION: Chest x-ray 02/13 1. Stable support lines and tubes. 2. Severe right upper lobe predominant bullous emphysema. 3. Stable right perihilar linear atelectasis or infiltrate superimposed on diffuse interstitial prominence and small pleural effusions. Impression . IMPRESSION: 1. Acute hypoxic respiratory failure multifactorial, predominantly to intraparenchymal cerebral hematoma. Status post tracheostomy 02/23 2. Abnormal x-ray 3. Long history of tobaccoism. CT angiogram showed bullous emphysema in the upper lobes. 3. Acute kidney injury--resolved 4. Leukocytosis--resolved 5. s/p Right occipital craniotomy with evacuation of intracerebral hematoma. 02/09/21 6. Encephalopathy, multifactorial--ongoing 7. Uncontrolled hypertension 8. Fever, per ID CT head 02/13, IMPRESSION: 1. Expected interval evolution of a right posterior temporal/occipital intraparenchymal hematoma status post decompressive craniotomy. 2. Expected evolution of a small amount of subarachnoid and intraventricular clot. DATE OF SURGERY: 02/09/2021 PREOPERATIVE DIAGNOSIS: Right posterior temporoparietal occipital intracerebral hemorrhage with neurologic deterioration. POSTOPERATIVE DIAGNOSIS: Right posterior temporoparietal occipital intracerebral hemorrhage with neurologic deterioration. OPERATION PERFORMED: Right occipital craniotomy with evacuation of intracerebral hematoma. Plan . Updated 02/26/21 Continue current vent support A/C mode rate of 16 at 40%. Status post tracheostomy 02/23 Follow ABG/CXR-- no changes Follow ID recs for ABX on zosyn Follow Cardiology recs Follow neurosurgery recs-- S/P Right occipital craniotomy with evacuation of intracerebral hematoma--02/09/21 TPN for nutritional support Hyperglycemia per PCP DVT/GI PPX D/W RN and RT Social work for LTAC transfer Will need PEG tube Updated 02/25/21 Continue current vent support A/C mode rate of 16 at 40%. Status post tracheostomy 02/23 Follow ABG/CXR-- no changes Follow ID recs for ABX on zosyn Follow Cardiology recs Follow neurosurgery recs-- S/P Right occipital craniotomy with evacuation of intracerebral hematoma--02/09/21 TPN for nutritional support Hyperglycemia per PCP DVT/GI PPX D/W RN and RT Social work for LTAC transfer Will need PEG tube Updated 02/24/21 Continue current vent support A/C mode rate of 16 at 40%. Status post tracheostomy 02/23 Follow ABG/CXR-- no changes Follow ID recs for ABX on zosyn Follow Cardiology recs Follow neurosurgery recs-- S/P Right occipital craniotomy with evacuation of intracerebral hematoma--02/09/21 TPN for nutritional support Hyperglycemia per PCP DVT/GI PPX D/W RN and RT Social work for LTAC transfer post trach Updated 02/23/21 Continue current vent support A/C mode rate of 16 at 40% Follow ABG/CXR-- no changes Follow ENT recs for trach-- plan for today Follow ID recs for ABX on zosyn Follow Cardiology recs Follow neurosurgery recs-- S/P Right occipital craniotomy with evacuation of intracerebral hematoma--02/09/21 TPN for nutritional support Hyperglycemia per PCP DVT/GI PPX D/W RN and RT Social work for LTAC transfer post trach Updated 02/22/21 Continue current vent support A/C mode rate of 16 at 40% Follow ABG/CXR-- no changes Follow ENT recs for trach-- plan for am Follow ID recs for ABX on zosyn Follow Cardiology recs Follow neurosurgery recs-- S/P Right occipital craniotomy with evacuation of intracerebral hematoma--02/09/21 TPN for nutritional support Hyperglycemia per PCP DVT/GI PPX D/W RN and RT Social work for LTAC transfer post trach Updated 02/21/21 Continue current vent support A/C mode rate of 16 at 40% Follow ABG/CXR-- no changes Follow ENT recs for trach-- plan for Saturday Follow ID recs for ABX on zosyn Follow Cardiology recs Follow neurosurgery recs-- S/P Right occipital craniotomy with evacuation of intracerebral hematoma--02/09/21 TPN for nutritional support Hyperglycemia per PCP DVT/GI PPX D/W RN and RT Social work for DC planning Updated 02/20 General surgery unavailable for trach We will consult ENT Antibiotics per ID Patient had a T-max yesterday 100.2 DVT GI prophylaxis A.m. ABG and chest x-ray UPDATED 02/19/21 Continue current vent support A/C mode Follow surgery recs for trach-- plan for next week Follow ID recs for ABX on zosyn Follow Cardiology recs Follow neurosurgery recs-- POD#11 S/P Right occipital craniotomy with evacuation of intracerebral hematoma TPN for nutritional support Hyperglycemia per PCP Cardene gtt for HTN PRN DVT/GI PPX D/W RN and RT Social work for DC planning RAJIV HORNE MD Feb 26, 2021 09:56
--- NOTE | 2021-02-26 11:08 | RAD ---
XR CHEST 1V History: Reason: PICC placement / Spl. Instructions: / History: Comparison: February 21, 2021 Findings: Emphysematous changes with right-sided bullous disease, unchanged. Increased patchy right mid and bib asilar opacities. Small bilateral pleural effusions. Unchanged heart size. Tracheostomy tube with tip projecting over the upper trachea. Right PICC with tip projecting over the cavoatrial junction. Stable enteric tube. Removal of right IJ central line. Impression: 1. Interval placement right PICC and interval tracheostomy. 2. Increased right mid and bibasilar opacities. 3. Small bilateral pleural effusions. Electronically signed by: Aaron Mayes DO (02/26/2021 11:06 AM) [id number]
[2021-02-26 12:33] LABS: BASO % 0 % (0-3); EOS # 0.1 x10^3/uL (0.0-0.7); EOS % 2 % (0-3); HEMOGLOBIN 10.5 g/dL (13.0-17.5); LYMPH # 1.1 x10^3/uL (1.0-4.8); LYMPH % 15 % (24-48); MEAN CORPUSCULAR HEMOGLOBIN 30 pg (25-35); MEAN CORPUSCULAR HGB CONC 33 g/dL (31-37); MEAN CORPUSCULAR VOLUME 90 fL (79-100); MONO # 0.5 x10^3/uL (0.0-1.1); MONO % 7 % (0-9); NEUT # 5.6 x10^3/uL (1.8-7.7); NEUT % 76 % (31-73); PLATELET COUNT 246 x10^3/uL (140-400); RED BLOOD COUNT 3.55 x10^6/uL (4.30-5.70); RED CELL DISTRIBUTION WIDTH 13.6 % (11.5-14.5); WHITE BLOOD COUNT 7.4 x10^3/uL (4.0-11.0)
[2021-02-26] MEDS: PANTOPRAZOLE IV PUSH 40 MG VIAL. IVP SCH (12:45)
[2021-02-26 12:46] LABS: CALCIUM 8.9 mg/dL (8.5-10.1); CREATININE 0.8 mg/dL (0.7-1.3); GFR 119.3
--- NOTE | 2021-02-26 12:48 | PDOC ---
Infectious Disease Note Subjective: Subjective Pt remains intubated ,sedated T max 99.6 Discussed with nursing staff Vital Signs: Vital Signs Vital Signs Date Time Temp Pulse Resp B/P (MAP) Pulse Ox O2 Delivery O2 Flow Rate FiO2 02/26/21 12:02 100 Ventilator 02/26/21 10:00 60 19 147/79 (101) 02/26/21 07:00 99.0 99.0 Physical Exam: PHYSICAL EXAM GENERAL: Sedated on vent HEENT: ETT/OGT +, NECK trach present LUNGS: Decreased breath sound at bases HEART: S1, S2 bradycardia ABDOMEN: Soft, nontender, no organomegaly. EXTREMITIES: + less edema, no cyanosis. SKIN:no gen rash NEUROLOGIC: unable to assess Right IJ taken out Line clean Medications: Inpatient Meds: Medications reviewed. Labs: Lab Laboratory Tests Test 02/25/21 13:20 02/25/21 20:58 02/26/21 00:07 02/26/21 05:17 Glucose (Fingerstick) 169 mg/dL (70-99) 132 mg/dL (70-99) 162 mg/dL (70-99) 178 mg/dL (70-99) Test 02/26/21 09:00 02/26/21 12:11 O2 Saturation 90 % (92-99) Arterial Blood pH 7.44 (7.35-7.45) Arterial Blood pCO2 at Patient Temp 33 mmHg (35-46) Arterial Blood pO2 at Patient Temp 59 mmHg (65-108) Arterial Blood HCO3 22 mmol/L (21-28) Arterial Blood Base Excess -1 mmol/L (-3-3) FiO2 40% vent White Blood Count 7.4 x10^3/uL (4.0-11.0) Red Blood Count 3.55 x10^6/uL (4.30-5.70) Hemoglobin 10.5 g/dL (13.0-17.5) Hematocrit 32.0 % (39.0-53.0) Mean Corpuscular Volume 90 fL (79-100) Mean Corpuscular Hemoglobin 30 pg (25-35) Mean Corpuscular Hemoglobin Concent 33 g/dL (31-37) Red Cell Distribution Width 13.6 % (11.5-14.5) Platelet Count 246 x10^3/uL (140-400) Neutrophils (%) (Auto) 76 % (31-73) Lymphocytes (%) (Auto) 15 % (24-48) Monocytes (%) (Auto) 7 % (0-9) Eosinophils (%) (Auto) 2 % (0-3) Basophils (%) (Auto) 0 % (0-3) Neutrophils # (Auto) 5.6 x10^3/uL (1.8-7.7) Lymphocytes # (Auto) 1.1 x10^3/uL (1.0-4.8) Monocytes # (Auto) 0.5 x10^3/uL (0.0-1.1) Eosinophils # (Auto) 0.1 x10^3/uL (0.0-0.7) Basophils # (Auto) 0.0 x10^3/uL (0.0-0.2) Objective: Assessment: 1. Fever. 2. Acute hypoxic respiratory failure status post intubation suspected aspiration.sputum cultures NRF 3. Intracranial bleed with mass effect, status post craniotomy and hematoma evacuation. 4. Encephalopathy 5. Respiratory failure. 6. Hypertension. 7. Chronic obstructive pulmonary disease. 8. MARVIN improved U/S BUE to neg for DVT Plan: Plan of Care cont Zosyn/Zyvox F/U BC,UC,Sputum G/S and cult negative so far Central line removed;Cath tip negative so far Monitor labs and cults cont supportive care Prognosis guarded Discussed with sisters at bedside at length Discussed with nursing staff RAMU DELGADO MD Feb 26, 2021 12:48
[2021-02-26 12:49] LABS: PHOSPHORUS 4.3 mg/dL (2.6-4.7)
[2021-02-26] MEDS: TPN PER PHARMACY MC PRN (13:50)
--- NOTE | 2021-02-26 13:52 | NUR ---
Pharmacy TPN Dosing Note S: COOPER CHAVEZ is a 61 year old M Currently receiving Central Continuous TPN started 02/11/21 B:Pertinent PMH: ILEUS, UNABLE TO START TUBE FEEDS Height: 6 feet, 2 inches Weight: 111.8 kg Current diet: NPO LABS: Sodium: 141 Potassium: 4 Chloride: 106 Calcium: 8.9 Corrected Calcium: 10.34 Magnesium: 2 CO2: 26 SCr: 0.8 Glucose: 162-178 Albumin: 2.2 AST: 60 ALT: 117 TPN FORMULA: TPN TYPE: Central Continuous AMINO ACIDS: 98 gm DEXTROSE: 255 gm POTASSIUM ACETATE: 50 mEq POTASSIUM PHOSPHATE: 13.6 mmol MAGNESIUM: 8 mEq CALCIUM: 5 mEq MULTIPLE VITAMIN: 5 ml TRACE ELEMENTS: 1 ml ml(s) TPN PLAN: PICC line not placed yesterday, TPN was non-administered. PICC in place now, will re-order same TPN. Propofol running. BMP, Mag and Phos in AM. R: Continue same TPN formula. Will monitor electrolytes, glucose, and tolerance to TPN. MIKALA RIGGS RP, 02/26/21 [id number]
[2021-02-26] MEDS: INSULIN GLARGINE SYRINGE. SQ SCH (20:01)
[2021-02-26] MEDS ORDERED: DEXTROSE 70% IV SCH (22:00)
[2021-02-26] MEDS ORDERED: AMINO ACID IV SCH (22:00)
[2021-02-26] MEDS ORDERED: TOTAL PARENTERAL NUTRITION IV SCH (22:00)
[2021-02-26] MEDS ORDERED: [UNRECOGNIZED DRUG - OTHER] IV SCH (22:00)
[2021-02-27] VITALS (24 sets, daily range): BP systolic 122–169; BP diastolic 71–95
[2021-02-27] MEDS: PROPOFOL 100 ML IV PRN ×7 (00:55→23:22)
[2021-02-27] MEDS: DEXMEDETOMIDINE 400 MCG in IV NORMAL SALINE 100ML 96 ML IV PRN ×4 (05:08→21:02)
[2021-02-27] MEDS: PIPERACILLIN/TAZOBACTAM 3.375 GM in IV NORMAL SALINE 50ML 50 ML IV SCH ×4 (05:11→23:21)
[2021-02-27] MEDS: INSULIN LISPRO 300 UNITS/3 ML VIAL. SQ SCH ×4 (05:17→23:22)
[2021-02-27 05:57] LABS: CALCIUM 8.8 mg/dL (8.5-10.1); CREATININE 0.8 mg/dL (0.7-1.3); GFR 119.3; POTASSIUM 3.9 mmol/L (3.5-5.1)
[2021-02-27 06:02] LABS: MAGNESIUM 2.1 mg/dL (1.8-2.4); PHOSPHORUS 4.4 mg/dL (2.6-4.7)
--- NOTE | 2021-02-27 08:28 | PDOC ---
Infectious Disease Note Subjective: Subjective Pt remains intubated ,sedated T max 99.6 Condition remains unchanged overall Discussed with nursing staff Vital Signs: Vital Signs Vital Signs Date Time Temp Pulse Resp B/P (MAP) Pulse Ox O2 Delivery O2 Flow Rate FiO2 02/27/21 08:00 100 Ventilator 02/27/21 06:00 60 16 133/81 (98) 02/27/21 04:00 98.6 98.6 Physical Exam: PHYSICAL EXAM GENERAL: Sedated on vent HEENT: ETT/OGT +, NECK trach present LUNGS: Decreased breath sound at bases HEART: S1, S2 bradycardia ABDOMEN: Soft, nontender, no organomegaly. EXTREMITIES: + less edema, no cyanosis. SKIN:no gen rash NEUROLOGIC: unable to assess Right IJ taken out Line clean Medications: Inpatient Meds: Medications reviewed. Labs: Lab Laboratory Tests Test 02/26/21 09:00 02/26/21 12:11 02/26/21 17:21 02/26/21 23:38 O2 Saturation 90 % (92-99) Arterial Blood pH 7.44 (7.35-7.45) Arterial Blood pCO2 at Patient Temp 33 mmHg (35-46) Arterial Blood pO2 at Patient Temp 59 mmHg (65-108) Arterial Blood HCO3 22 mmol/L (21-28) Arterial Blood Base Excess -1 mmol/L (-3-3) FiO2 40% vent White Blood Count 7.4 x10^3/uL (4.0-11.0) Red Blood Count 3.55 x10^6/uL (4.30-5.70) Hemoglobin 10.5 g/dL (13.0-17.5) Hematocrit 32.0 % (39.0-53.0) Mean Corpuscular Volume 90 fL (79-100) Mean Corpuscular Hemoglobin 30 pg (25-35) Mean Corpuscular Hemoglobin Concent 33 g/dL (31-37) Red Cell Distribution Width 13.6 % (11.5-14.5) Platelet Count 246 x10^3/uL (140-400) Neutrophils (%) (Auto) 76 % (31-73) Lymphocytes (%) (Auto) 15 % (24-48) Monocytes (%) (Auto) 7 % (0-9) Eosinophils (%) (Auto) 2 % (0-3) Basophils (%) (Auto) 0 % (0-3) Neutrophils # (Auto) 5.6 x10^3/uL (1.8-7.7) Lymphocytes # (Auto) 1.1 x10^3/uL (1.0-4.8) Monocytes # (Auto) 0.5 x10^3/uL (0.0-1.1) Eosinophils # (Auto) 0.1 x10^3/uL (0.0-0.7) Basophils # (Auto) 0.0 x10^3/uL (0.0-0.2) Sodium Level 141 mmol/L (136-145) Potassium Level 4.0 mmol/L (3.5-5.1) Chloride Level 106 mmol/L (98-107) Carbon Dioxide Level 26 mmol/L (21-32) Anion Gap 9 (6-14) Blood Urea Nitrogen 17 mg/dL (8-26) Creatinine 0.8 mg/dL (0.7-1.3) Estimated GFR (Cockcroft-Gault) 119.3 Glucose Level 168 mg/dL (70-99) Calcium Level 8.9 mg/dL (8.5-10.1) Phosphorus Level 4.3 mg/dL (2.6-4.7) Magnesium Level 2.0 mg/dL (1.8-2.4) Glucose (Fingerstick) 169 mg/dL (70-99) 222 mg/dL (70-99) Test 02/27/21 05:00 02/27/21 05:14 Sodium Level 140 mmol/L (136-145) Potassium Level 3.9 mmol/L (3.5-5.1) Chloride Level 106 mmol/L (98-107) Carbon Dioxide Level 27 mmol/L (21-32) Anion Gap 7 (6-14) Blood Urea Nitrogen 17 mg/dL (8-26) Creatinine 0.8 mg/dL (0.7-1.3) Estimated GFR (Cockcroft-Gault) 119.3 Glucose Level 207 mg/dL (70-99) Calcium Level 8.8 mg/dL (8.5-10.1) Phosphorus Level 4.4 mg/dL (2.6-4.7) Magnesium Level 2.1 mg/dL (1.8-2.4) Glucose (Fingerstick) 213 mg/dL (70-99) Objective: Assessment: 1. Fever. 2. Acute hypoxic respiratory failure status post intubation suspected aspiration.sputum cultures NRF 3. Intracranial bleed with mass effect, status post craniotomy and hematoma evacuation. 4. Encephalopathy 5. Respiratory failure. 6. Hypertension. 7. Chronic obstructive pulmonary disease. 8. MARVIN improved U/S BUE to neg for DVT Plan: Plan of Care cont Zosyn/Zyvox F/U BC,UC,Sputum G/S and cult negative so far Central line removed;Cath tip negative so far Monitor labs and cults cont supportive care Prognosis guarded Discussed with nursing staff RAMU DELGADO MD Feb 27, 2021 08:28
[2021-02-27] MEDS: PANTOPRAZOLE IV PUSH 40 MG VIAL. IVP SCH (08:38)
[2021-02-27 08:45] LABS: BASE EXCESS ABG -2 mmol/L (-3-3); HCO3 ABG 23 mmol/L (21-28); PCO2 ABG 40 mmHg (35-46); PO2 ABG 90 mmHg (65-108); SAT O2 ABG 96 % (92-99)
[2021-02-27 08:47] LABS: FIO2 ABG 45
[2021-02-27] MEDS: fentaNYL HIGH DOSE PCA 55 ML IV PRN (08:52)
[2021-02-27] MEDS: cloNIDine TTS-3 1 PATCH PATCH.TDWK TD SCH (09:06)
[2021-02-27] MEDS: TPN PER PHARMACY MC PRN (09:26)
--- NOTE | 2021-02-27 09:26 | NUR ---
Pharmacy TPN Dosing Note S: COOPER CHAVEZ is a 61 year old M Currently receiving Central Continuous TPN started 02/11/21 B:Pertinent PMH: ILEUS, UNABLE TO START TUBE FEEDS Height: 6 feet, 2 inches Weight: 111.2 kg Current diet: NPO LABS: Sodium: 140 Potassium: 3.9 Chloride: 106 Calcium: 8.8 Corrected Calcium: 10.24 Magnesium: 2.1 CO2: 27 SCr: 0.8 Glucose: 207, 213 Albumin: 2.2 AST: 60 ALT: 117 TPN FORMULA: TPN TYPE: Central Continuous AMINO ACIDS: 98 gm DEXTROSE: 255 gm LIPIDS: 0 gm POTASSIUM ACETATE: 50 mEq POTASSIUM PHOSPHATE: 13.6 mmol MAGNESIUM: 8 mEq CALCIUM: 5 mEq MULTIPLE VITAMIN: 5 ml TRACE ELEMENTS: 1 ml TPN PLAN: -Propofol still running @ 40 mcg/kg/min - continue TPN with no lipids. -Electrolytes appear WNL and stable. Continue same TPN. -No labs tomorrow per pharmacy due to TPN stability. R: Continue TPN @ current rate and above formula. Will monitor electrolytes, glucose, and tolerance to TPN. ODELL SALINAS [facility], 02/27/21 [id number]
--- NOTE | 2021-02-27 10:15 | PDOC ---
PULMONARY PROGRESS NOTES DATE: 02/27/21 TIME: 10:14 Subjective PT. remains on AC mode with vent support no other concerns from nursing Status post tracheostomy on 02/23 Vitals Vital Signs Date Time Temp Pulse Resp B/P (MAP) Pulse Ox O2 Delivery O2 Flow Rate FiO2 02/27/21 09:22 16 100 Ventilator 02/27/21 06:00 60 133/81 (98) 02/27/21 04:00 98.6 98.6 Comments ros unable to obtain intubated on vent Lungs: Clear Cardiovascular: S1, S2 Abdomen: Soft, Non-tender Extremities: No Edema Skin: Warm Labs Laboratory Tests Test 02/25/21 13:20 02/25/21 20:58 02/26/21 00:07 02/26/21 05:17 Glucose (Fingerstick) 169 mg/dL (70-99) 132 mg/dL (70-99) 162 mg/dL (70-99) 178 mg/dL (70-99) Test 02/26/21 09:00 02/26/21 12:11 02/26/21 17:21 02/26/21 23:38 O2 Saturation 90 % (92-99) Arterial Blood pH 7.44 (7.35-7.45) Arterial Blood pCO2 at Patient Temp 33 mmHg (35-46) Arterial Blood pO2 at Patient Temp 59 mmHg (65-108) Arterial Blood HCO3 22 mmol/L (21-28) Arterial Blood Base Excess -1 mmol/L (-3-3) FiO2 40% vent White Blood Count 7.4 x10^3/uL (4.0-11.0) Red Blood Count 3.55 x10^6/uL (4.30-5.70) Hemoglobin 10.5 g/dL (13.0-17.5) Hematocrit 32.0 % (39.0-53.0) Mean Corpuscular Volume 90 fL (79-100) Mean Corpuscular Hemoglobin 30 pg (25-35) Mean Corpuscular Hemoglobin Concent 33 g/dL (31-37) Red Cell Distribution Width 13.6 % (11.5-14.5) Platelet Count 246 x10^3/uL (140-400) Neutrophils (%) (Auto) 76 % (31-73) Lymphocytes (%) (Auto) 15 % (24-48) Monocytes (%) (Auto) 7 % (0-9) Eosinophils (%) (Auto) 2 % (0-3) Basophils (%) (Auto) 0 % (0-3) Neutrophils # (Auto) 5.6 x10^3/uL (1.8-7.7) Lymphocytes # (Auto) 1.1 x10^3/uL (1.0-4.8) Monocytes # (Auto) 0.5 x10^3/uL (0.0-1.1) Eosinophils # (Auto) 0.1 x10^3/uL (0.0-0.7) Basophils # (Auto) 0.0 x10^3/uL (0.0-0.2) Sodium Level 141 mmol/L (136-145) Potassium Level 4.0 mmol/L (3.5-5.1) Chloride Level 106 mmol/L (98-107) Carbon Dioxide Level 26 mmol/L (21-32) Anion Gap 9 (6-14) Blood Urea Nitrogen 17 mg/dL (8-26) Creatinine 0.8 mg/dL (0.7-1.3) Estimated GFR (Cockcroft-Gault) 119.3 Glucose Level 168 mg/dL (70-99) Calcium Level 8.9 mg/dL (8.5-10.1) Phosphorus Level 4.3 mg/dL (2.6-4.7) Magnesium Level 2.0 mg/dL (1.8-2.4) Glucose (Fingerstick) 169 mg/dL (70-99) 222 mg/dL (70-99) Test 02/27/21 05:00 02/27/21 05:14 02/27/21 08:00 Sodium Level 140 mmol/L (136-145) Potassium Level 3.9 mmol/L (3.5-5.1) Chloride Level 106 mmol/L (98-107) Carbon Dioxide Level 27 mmol/L (21-32) Anion Gap 7 (6-14) Blood Urea Nitrogen 17 mg/dL (8-26) Creatinine 0.8 mg/dL (0.7-1.3) Estimated GFR (Cockcroft-Gault) 119.3 Glucose Level 207 mg/dL (70-99) Calcium Level 8.8 mg/dL (8.5-10.1) Phosphorus Level 4.4 mg/dL (2.6-4.7) Magnesium Level 2.1 mg/dL (1.8-2.4) Glucose (Fingerstick) 213 mg/dL (70-99) O2 Saturation 96 % (92-99) Arterial Blood pH 7.37 (7.35-7.45) Arterial Blood pCO2 at Patient Temp 40 mmHg (35-46) Arterial Blood pO2 at Patient Temp 90 mmHg (65-108) Arterial Blood HCO3 23 mmol/L (21-28) Arterial Blood Base Excess -2 mmol/L (-3-3) FiO2 45 Laboratory Tests Test 02/26/21 12:11 02/26/21 17:21 02/26/21 23:38 02/27/21 05:00 White Blood Count 7.4 x10^3/uL (4.0-11.0) Red Blood Count 3.55 x10^6/uL (4.30-5.70) Hemoglobin 10.5 g/dL (13.0-17.5) Hematocrit 32.0 % (39.0-53.0) Mean Corpuscular Volume 90 fL (79-100) Mean Corpuscular Hemoglobin 30 pg (25-35) Mean Corpuscular Hemoglobin Concent 33 g/dL (31-37) Red Cell Distribution Width 13.6 % (11.5-14.5) Platelet Count 246 x10^3/uL (140-400) Neutrophils (%) (Auto) 76 % (31-73) Lymphocytes (%) (Auto) 15 % (24-48) Monocytes (%) (Auto) 7 % (0-9) Eosinophils (%) (Auto) 2 % (0-3) Basophils (%) (Auto) 0 % (0-3) Neutrophils # (Auto) 5.6 x10^3/uL (1.8-7.7) Lymphocytes # (Auto) 1.1 x10^3/uL (1.0-4.8) Monocytes # (Auto) 0.5 x10^3/uL (0.0-1.1) Eosinophils # (Auto) 0.1 x10^3/uL (0.0-0.7) Basophils # (Auto) 0.0 x10^3/uL (0.0-0.2) Sodium Level 141 mmol/L (136-145) 140 mmol/L (136-145) Potassium Level 4.0 mmol/L (3.5-5.1) 3.9 mmol/L (3.5-5.1) Chloride Level 106 mmol/L (98-107) 106 mmol/L (98-107) Carbon Dioxide Level 26 mmol/L (21-32) 27 mmol/L (21-32) Anion Gap 9 (6-14) 7 (6-14) Blood Urea Nitrogen 17 mg/dL (8-26) 17 mg/dL (8-26) Creatinine 0.8 mg/dL (0.7-1.3) 0.8 mg/dL (0.7-1.3) Estimated GFR (Cockcroft-Gault) 119.3 119.3 Glucose Level 168 mg/dL (70-99) 207 mg/dL (70-99) Calcium Level 8.9 mg/dL (8.5-10.1) 8.8 mg/dL (8.5-10.1) Phosphorus Level 4.3 mg/dL (2.6-4.7) 4.4 mg/dL (2.6-4.7) Magnesium Level 2.0 mg/dL (1.8-2.4) 2.1 mg/dL (1.8-2.4) Glucose (Fingerstick) 169 mg/dL (70-99) 222 mg/dL (70-99) Test 02/27/21 05:14 02/27/21 08:00 Glucose (Fingerstick) 213 mg/dL (70-99) O2 Saturation 96 % (92-99) Arterial Blood pH 7.37 (7.35-7.45) Arterial Blood pCO2 at Patient Temp 40 mmHg (35-46) Arterial Blood pO2 at Patient Temp 90 mmHg (65-108) Arterial Blood HCO3 23 mmol/L (21-28) Arterial Blood Base Excess -2 mmol/L (-3-3) FiO2 45 Comments CXR 02/21/21 IMPRESSION: 1. Stable life support devices. 2. Improving bibasilar opacities.. CXR 02/18/21 IMPRESSION: Unchanged bibasilar opacities. Recommend follow-up to ensure resolution, particularly of focal opacities in the right lung base. CXR 02/17/21 IMPRESSION: 1. Stable life support devices. 2. Stable bibasilar opacities. 3. Stable small left pleural effusion. IMPRESSION: Chest x-ray 02/13 1. Stable support lines and tubes. 2. Severe right upper lobe predominant bullous emphysema. 3. Stable right perihilar linear atelectasis or infiltrate superimposed on diffuse interstitial prominence and small pleural effusions. Impression . IMPRESSION: 1. Acute hypoxic respiratory failure multifactorial, predominantly to intraparenchymal cerebral hematoma. Status post tracheostomy 02/23 2. Abnormal x-ray 3. Long history of tobaccoism. CT angiogram showed bullous emphysema in the upper lobes. 3. Acute kidney injury--resolved 4. Leukocytosis--resolved 5. s/p Right occipital craniotomy with evacuation of intracerebral hematoma. 02/09/21 6. Encephalopathy, multifactorial--ongoing 7. Uncontrolled hypertension 8. Fever, per ID CT head 02/13, IMPRESSION: 1. Expected interval evolution of a right posterior temporal/occipital intraparenchymal hematoma status post decompressive craniotomy. 2. Expected evolution of a small amount of subarachnoid and intraventricular clot. DATE OF SURGERY: 02/09/2021 PREOPERATIVE DIAGNOSIS: Right posterior temporoparietal occipital intracerebral hemorrhage with neurologic deterioration. POSTOPERATIVE DIAGNOSIS: Right posterior temporoparietal occipital intracerebral hemorrhage with neurologic deterioration. OPERATION PERFORMED: Right occipital craniotomy with evacuation of intracerebral hematoma. Plan . Updated 02/27/21 Continue current vent support A/C mode rate of 16 at 40%. Status post tracheostomy 02/23 Follow ABG/CXR--make changes to based on ABGs. Follow ID recs for ABX on zosyn Follow Cardiology recs Follow neurosurgery recs-- S/P Right occipital craniotomy with evacuation of intracerebral hematoma--02/09/21 TPN for nutritional support Hyperglycemia per PCP DVT/GI PPX D/W RN and RT Awaiting insurance coverage before transfer to long-term acute care facility Will need PEG tube Updated 02/26/21 Continue current vent support A/C mode rate of 16 at 40%. Status post tracheostomy 02/23 Follow ABG/CXR-- no changes Follow ID recs for ABX on zosyn Follow Cardiology recs Follow neurosurgery recs-- S/P Right occipital craniotomy with evacuation of intracerebral hematoma--02/09/21 TPN for nutritional support Hyperglycemia per PCP DVT/GI PPX D/W RN and RT Social work for LTAC transfer Will need PEG tube Updated 02/25/21 Continue current vent support A/C mode rate of 16 at 40%. Status post tracheostomy 02/23 Follow ABG/CXR-- no changes Follow ID recs for ABX on zosyn Follow Cardiology recs Follow neurosurgery recs-- S/P Right occipital craniotomy with evacuation of i ntracerebral hematoma--02/09/21 TPN for nutritional support Hyperglycemia per PCP DVT/GI PPX D/W RN and RT Social work for LTAC transfer Will need PEG tube Updated 02/24/21 Continue current vent support A/C mode rate of 16 at 40%. Status post tracheostomy 02/23 Follow ABG/CXR-- no changes Follow ID recs for ABX on zosyn Follow Cardiology recs Follow neurosurgery recs-- S/P Right occipital craniotomy with evacuation of intracerebral hematoma--02/09/21 TPN for nutritional support Hyperglycemia per PCP DVT/GI PPX D/W RN and RT Social work for LTAC transfer post trach Updated 02/23/21 Continue current vent support A/C mode rate of 16 at 40% Follow ABG/CXR-- no changes Follow ENT recs for trach-- plan for today Follow ID recs for ABX on zosyn Follow Cardiology recs Follow neurosurgery recs-- S/P Right occipital craniotomy with evacuation of intracerebral hematoma--02/09/21 TPN for nutritional support Hyperglycemia per PCP DVT/GI PPX D/W RN and RT Social work for LTAC transfer post trach Updated 02/22/21 Continue current vent support A/C mode rate of 16 at 40% Follow ABG/CXR-- no changes Follow ENT recs for trach-- plan for am Follow ID recs for ABX on zosyn Follow Cardiology recs Follow neurosurgery recs-- S/P Right occipital craniotomy with evacuation of intracerebral hematoma--02/09/21 TPN for nutritional support Hyperglycemia per PCP DVT/GI PPX D/W RN and RT Social work for LTAC transfer post trach Updated 02/21/21 Continue current vent support A/C mode rate of 16 at 40% Follow ABG/CXR-- no changes Follow ENT recs for trach-- plan for Saturday Follow ID recs for ABX on zosyn Follow Cardiology recs Follow neurosurgery recs-- S/P Right occipital craniotomy with evacuation of intracerebral hematoma--02/09/21 TPN for nutritional support Hyperglycemia per PCP DVT/GI PPX D/W RN and RT Social work for DC planning Updated 02/20 General surgery unavailable for trach We will consult ENT Antibiotics per ID Patient had a T-max yesterday 100.2 DVT GI prophylaxis A.m. ABG and chest x-ray UPDATED 02/19/21 Continue current vent support A/C mode Follow surgery recs for trach-- plan for next week Follow ID recs for ABX on zosyn Follow Cardiology recs Follow neurosurgery recs-- POD#11 S/P Right occipital craniotomy with evacuation of intracerebral hematoma TPN for nutritional support Hyperglycemia per PCP Cardene gtt for HTN PRN DVT/GI PPX D/W RN and RT Social work for DC planning RAJIV HORNE MD Feb 27, 2021 10:15
--- NOTE | 2021-02-27 12:35 | PDOC ---
[employer] PROGRESS NOTE Date of Service DOS: DATE: 02/27/21 TIME: 12:33 Chief Complaint Chief Complaint Respiratory failure requiring intubation Status post tracheostomy [employer] hemorrhage Status post craniotomy 02/09/2021 Obesity Aspiration Hypertension COPD Acute kidney injury Severe malnutrition History of Present Illness History of Present Illness 02/27/2021 Patient seen and examined in the ICU He remains mechanically ventilated AC/16/500/40 5% with 5 of PEEP Has tracheostomy in place Has TPN running SCDs are in place Moore to bedside drainage Sedated with fentanyl and propofol Discussed with RN Chart reviewed He remains critically 02/26/2021: Low-grade fever overnight (99.6 F). On vent with FiO2 40%, PEEP 5. S/p tracheostomy 02/23. Per RN, some hypertension overnight (systolic BP 203) requiring IV nicardipine, but this has been titrated down and now able to resume as needed hydralazine. Recommend keep nicardipine on standby to maintain blood pressure <150/90 mmHg. Continue TPN but will likely need PEG tube and eventually long-term acute care. Due to low-grade fever, lines are being changed. Continue Zosyn and Zyvox, per ID. Critical care time 30 minutes spent reviewing charts, reviewing imaging, reviewing labs, and discussion with RN. 02/25/2021: Remains on vent with FiO2 40%, PEEP 5. Afebrile. Plan for follow-up CT head on Saturday. Continue Zosyn, per ID. Blood glucose well controlled. Cri tical care time 30 minutes spent reviewing charts, reviewing imaging, reviewing labs, and discussion with RN. 02/24/2021: Afebrile. Had tracheostomy performed yesterday. On vent with FiO2 40%, PEEP 5. Continue antibiotics, per ID. Critical care time 30 minutes reviewing labs, reviewing imaging, reviewing charts, discussed with RN. 02/23/2021: Patient remains intubated in ICU, FiO2 40%, PEEP 5. I believe plan is for trach today. Continue daptomycin, Zosyn, and Zyvox, per ID. Critical care time 30 minutes spent reviewing charts, reviewing labs, reviewing imaging, discussion with RN. 02/22/2011: Patient ange intubated in ICU. Febrile today, T-max 100.3. FiO2 40, PEEP 5. Continue treatment with Zosyn, per ID. Continue to wean sedation as tolerated. Plan for trach tomorrow. Critical care time 30 minutes spent reviewing chart, reviewing labs, imaging, and discussion with RN. 02/21/2021: Patient remains intubated in ICU, FiO2 40%, PEEP 5. Afebrile. POD #12, s/p right occipital craniotomy with evacuation of intracerebral hematoma (02/09/21). Chest x-ray today shows improving bibasilar opacities. Continue Zosyn, per ID. Critical care time 30 minutes spent reviewing charts, reviewing labs, reviewing imaging, discussion with RN. 02/20/2021: POD #11 Right occipital craniotomy with evacuation of intracerebral hematoma (02/09/21). Remains sedated on ventilator, FiO2 40%, PEEP 5. Chest x-r ay from 02/18 showed unchanged bibasilar opacities; recommending follow-up to ensure resolution, particularly of focal opacities in the right lung base. Continue Zosyn. Continue supportive care. Critical care time 30 minutes spent reviewing charts, reviewing labs, reviewing imaging, discussion with RN. 02/19/2021 POD #11 Right occipital craniotomy with evacuation of intracerebral hematoma sedated on vent Patient seen and examined at bedside Continue antibiotics per infectious disease Weaning ventilator and sedation as tolerated extubation in the next few days Plan of care discussed with bedside nurse Expected interval evolution of a right posterior temporal/occipital intraparenchymal hematoma status post decompressive craniotomy Large right temporo-occipital intraparenchymal bleed, most likely lobar hemorrhage from hypertension, consider venous sinus thrombosis, less likely in this location, aneurysmal bleed, head trauma (also unlikely). craniotomy 02/09 evening Suspect of aspiration, respiratory failure, hypertension, chronic obstructive pulmonary disease, improving acute kidney injury cont Zosyn glucose uncontrolled add Lantus 22 UNITS SQ HS elevated troponin suspect stress induced ischemia 36 MIN CC TIME 02/18/2021 POD #10 Right occipital craniotomy with evacuation of intracerebral hematoma sedated on vent Patient seen and examined at bedside Continue antibiotics per infectious disease Weaning ventilator and sedation as tolerated extubation in the next few days Plan of care discussed with bedside nurse Expected interval evolution of a right posterior temporal/occipital intraparenchymal hematoma status post decompressive craniotomy Large right temporo-occipital intraparenchymal bleed, most likely lobar hemorrhage from hypertension, consider venous sinus thrombosis, less likely in this location, aneurysmal bleed, head trauma (also unlikely). Had craniotomy 7/ evening Suspect of aspiration, respiratory failure, hypertension, chronic obstructive pulmonary disease, improving acute kidney injury cont Zosyn glucose uncontrolled add Lantus 22 UNITS SQ HS 34 MIN CC TIME 02/17/2021 POD #8 Right occipital craniotomy with evacuation of intracerebral hematoma sedated on vent Patient seen and examined at bedside Good response to IV Lasix Continue antibiotics per infectious disease Weaning ventilator and sedation as tolerated extubation in the next few days Plan of care discussed with bedside nurse Expected interval evolution of a right posterior temporal/occipital intraparenchymal hematoma status post decompressive craniotomy Large right temporo-occipital intraparenchymal bleed, most likely lobar hemorrhage from hypertension, consider venous sinus thrombosis, less likely in this location, aneurysmal bleed, head trauma (also unlikely). Had craniotomy 02/09 evening Suspect of aspiration, respiratory failure, hypertension, chronic obstructive pulmonary disease, improving acute kidney injury cont Zosyn glucose uncontrolled add Lantus 18 UNITS SQ HS 33 MIN CC TIME 02/16/2021 POD #7 Right occipital craniotomy with evacuation of intracerebral hematoma sedated on vent Patient seen and examined at bedside Good response to IV Lasix Continue antibiotics per infectious disease Weaning ventilator and sedation as tolerated extubation in the next few days Plan of care discussed with bedside nurse Expected interval evolution of a right posterior temporal/occipital intraparenchymal hematoma status post decompressive craniotomy Large right temporo-occipital intraparenchymal bleed, most likely lobar hemorrhage from hypertension, consider venous sinus thrombosis, less likely in this location, aneurysmal bleed, head trauma (also unlikely). Had craniotomy 7 evening Suspect of aspiration, respiratory failure, hypertension, chronic obstructive pulmonary disease, improving acute kidney injury cont Zosyn glucose uncontrolled add Lantus 14 UNITS SQ HS 35 MIN CC TIME 02/15/2021 POD #6 Right occipital craniotomy with evacuation of intracerebral hematoma sedated on vent Patient seen and examined at bedside Good response to IV Lasix Continue antibiotics per infectious disease Weaning ventilator and sedation as tolerated Hopeful extubation in the next few days Plan of care discussed with bedside nurse Expected interval evolution of a right posterior temporal/occipital intraparenchymal hematoma status post decompressive craniotomy Large right temporo-occipital intraparenchymal bleed, most likely lobar hemorrhage from hypertension, consider venous sinus thrombosis, less likely in this location, aneurysmal bleed, head trauma (also unlikely). Had craniotomy 02/09 evening Suspect of aspiration, respiratory failure, hypertension, chronic obstructive pulmonary disease, improving acute kidney injury cont Zosyn glucose uncontrolled add Lantus 35 MIN CC TIME 02/14/2021 POD #5 Right occipital craniotomy with evacuation of intracerebral hematoma sedated on vent Patient seen and examined at bedside Good response to IV Lasix Continue antibiotics per infectious disease Weaning ventilator and sedation as tolerated Hopeful extubation in the next few days Plan of care discussed with bedside nurse Expected interval evolution of a right posterior temporal/occipital intraparenchymal hematoma status post decompressive craniotomy Large right temporo-occipital intraparenchymal bleed, most likely lobar hemorrhage from hypertension, consider venous sinus thrombosis, less likely in t his location, aneurysmal bleed, head trauma (also unlikely). Had craniotomy 02/09 evening Suspect of aspiration, respiratory failure, hypertension, chronic obstructive pulmonary disease, improving acute kidney injury cont Zosyn glucose uncontrolled add Lantus 35 MIN CC TIME 02/13/2021 POD #4 Right occipital craniotomy with evacuation of intracerebral hematoma sedated on vent Patient seen and examined at bedside Good response to IV Lasix Continue antibiotics per infectious disease Weaning ventilator and sedation as tolerated Hopeful extubation in the next few days Plan of care discussed with bedside nurse Expected interval evolution of a right posterior temporal/occipital intraparenchymal hematoma status post decompressive craniotomy Large right temporo-occipital intraparenchymal bleed, most likely lobar hemorrhage from hypertension, consider venous sinus thrombosis, less likely in this location, aneurysmal bleed, head trauma (also unlikely). Had craniotomy 02/09 evening Suspect of aspiration, respiratory failure, hypertension, chronic obstructive pulmonary disease, improving acute kidney injury cont Zosyn 35 MIN CC TIME 02/12/2021 Patient seen and examined at bedside Remains intubated and sedated Good response to IV Lasix yesterday had nearly 3 L out; will diurese again today Continue antibiotics per infectious disease Weaning ventilator and sedation as tolerated Hopeful extubation in the next few days Plan of care discussed with bedside nurse 02/11/2021 Patient seen and examined at bedside No major clinical changes overnight however this morning patient has largely increased amount of secretions Chest x-ray concerning for possible pneumonia, will consult ID who recommended starting Zosyn Otherwise he remains intubated and sedated We will follow subspecialist input Plan discussed with bedside RN 02/10/2021 Patient seen and examined at bedside Underwent craniotomy yesterday due to unresponsiveness in the late afternoon; was also intubated Continues to have a poor neurologic status Neurology and neurosurgery following Discussed plan of care with bedside nurse Patient is a 61-year-old male transferred for to the ICU overnight due to hypertensive emergency and intracranial hemorrhage. Patient's mother at bedside provides most the history. She reports that patient had been in his usual state of health until yesterday morning when he reported feeling tired and having a headache. Patient mother reports he normally gets up early and goes outside however this was not the case yesterday. With this headache he took BC powder and went back to bed. Patient's mother reports that he was in and out of bed throughout most of the afternoon. Says patient did not eat anything yesterday which is very unusual for him. Approximately 1130 last night she had the patient get up to go to the bathroom and heard him fall. He however is able to get up and returned to bed; unknown if he hit his head at this time. Patient again woke up around 2 AM and woke up his mother asking for orange juice and then proceeded to fall again, she does not think he hit his head at this time. He was taken to hospital and found to have a systolic blood pressure greater than [address] scan found to have an intracranial hemorrhage. Due to severity of his condition he was transferred here. Patient's mother reports she is not aware of any past medical history other than hypertension which he intermittently takes hydrochlorothiazide for. Vitals/I&O Vitals/I&O: Vital Signs Date Time Temp Pulse Resp B/P (MAP) Pulse Ox O2 Delivery O2 Flow Rate FiO2 02/27/21 12:00 Mechanical Ventilator 02/27/21 12:00 98.7 56 19 166/95 (118) 100 98.7 I & O 02/26/21 02/26/21 02/27/21 15:00 23:00 07:00 Intake Total 300 ml 1316.4 ml Output Total 850 ml 1450 ml 1150 ml Balance -850 ml -1150 ml 166.4 ml Physical Exam Physical Exam: GENERAL: Sedated on vent HEENT: ETT/OGT +, NECK trach present LUNGS: Decreased breath sound at bases HEART: S1, S2 bradycardia ABDOMEN: Soft, nontender, no organomegaly. EXTREMITIES: + less edema, no cyanosis. SKIN:no gen rash NEUROLOGIC: unable to assess Right IJ taken out Line clean General: Other Heart: Regular rate Lungs: Clear Abdomen: Normal bowel sounds Extremities: No clubbing, No edema Skin: Other (dressing C,D,I) Labs Labs: Laboratory Tests Test 02/26/21 17:21 02/26/21 23:38 02/27/21 05:00 02/27/21 05:14 Glucose (Fingerstick) 169 mg/dL (70-99) 222 mg/dL (70-99) 213 mg/dL (70-99) Sodium Level 140 mmol/L (136-145) Potassium Level 3.9 mmol/L (3.5-5.1) Chloride Level 106 mmol/L (98-107) Carbon Dioxide Level 27 mmol/L (21-32) Anion Gap 7 (6-14) Blood Urea Nitrogen 17 mg/dL (8-26) Creatinine 0.8 mg/dL (0.7-1.3) Estimated GFR (Cockcroft-Gault) 119.3 Glucose Level 207 mg/dL (70-99) Calcium Level 8.8 mg/dL (8.5-10.1) Phosphorus Level 4.4 mg/dL (2.6-4.7) Magnesium Level 2.1 mg/dL (1.8-2.4) Test 02/27/21 08:00 02/27/21 11:55 O2 Saturation 96 % (92-99) Arterial Blood pH 7.37 (7.35-7.45) Arterial Blood pCO2 at Patient Temp 40 mmHg (35-46) Arterial Blood pO2 at Patient Temp 90 mmHg (65-108) Arterial Blood HCO3 23 mmol/L (21-28) Arterial Blood Base Excess -2 mmol/L (-3-3) FiO2 45 Glucose (Fingerstick) 248 mg/dL (70-99) Assessment and Plan Assessmemt and Plan Dizziness Large right temporo-occipital intraparenchymal bleed, most likely lobar hemorrhage from hypertension, consider venous sinus thrombosis, , aneurysmal bleed, Had craniotomy 02/09 evening Suspect aspiration, respiratory failure, hypertension, chronic obstructive pulmonary disease, improving acute kidney injury MORBID [employer]ES[employer] Severe malnutrition Plan ICU monitoring Vent weaning Trach care continue TPN Continue SCDs Moore to bedside drainage Continue sedation with propofol and fentanyl Trend labs Home meds DVT prophylaxis Full code Prognosis extremely guarded he remains critically ill CC time 31-minute Comment Review of Relevant I have reviewed the following items neela (where applicable) has been applied. Medications: Current Medications Medications (Trade) Dose Ordered Sig/Lorraine Route PRN Reason Start Time Stop Time Status Last Admin Dose Admin Potassium Acetate 50 meq/Potassium Phosphate 13.6 mmol/Magnesium Sulfate 8 meq/ Calcium Gluconate 5 meq/ Multivitamins 5 ml/Zinc/Copper/ Manganese/ Selenium 1 ml/ Total Parenteral Nutrition/Amino Acids/Dextrose 2,040 ml @ 85 mls/hr TPN CONT IV 02/26/21 22:00 02/27/21 21:59 02/26/21 21:27 Justifications for Admission Other Justification JUSTIN LLOYD III DO Feb 27, 2021 12:35
--- NOTE | 2021-02-27 15:22 | NUR ---
SS following up with discharge planning. SS reviewed pt chart and discussed with RN. Pt is currently on the vent at 45%. COVID19 negative. Pt on TPN, IV Zyvox, and IV Zosyn. Pt on Fentanyl, Propofol, and Precedex. Trach in place. Self pay. Medicaid pending. Not stable. SS will continue to follow for discharge planning.
--- NOTE | 2021-02-27 16:01 | RAD ---
CT HEAD WITHOUT CONTRAST 02/27/2021 12:57 PM Indication: Reason: f/u ICH, s/p craniotomy-RN NEO WILL CALL WHEN READY / Spl. Instructions: / H istory: Comparison: CT head without contrast February 20, 2021 Procedure: Multidetector CT imaging of the head was performed without the administration of contrast. Findings: There is been interval development of area of low density in left frontal lobe, concerning for subac earlene infarct. Interval development of a low-density area in the right parietal lobe could be developin g encephalomalacia from adjacent bleeding postop change or small infarct. Punctate areas of hyperdens ity within the involved parenchyma could represent minimal hemorrhagic transformation. Underlying con tusion developing encephalomalacia within the right the right temporal, occipital, and parietal intra parenchymal hemorrhage has decreased. Small amount of intraventricular hemorrhage seen in the depende nt portion of the left lateral ventricle similar. Areas of subarachnoid hemorrhage throughout the lef t humeral hemisphere are unchanged. No new midline shift is seen. Decreasing focal mass effect with a decreasing hemorrhage noted. No evidence of obstructive hydrocephalus is seen. No acute osseous farmer ges are noted in the interim. IMPRESSION: 1. Interval development of a left frontal hypodensity concerning for subacute infarct. There is also a new small area of low density in the superior posterior parietal region which could represent devel oping encephalomalacia from the prior bleed or surgery versus a second small subacute infarct . 2. Continued decrease in large intraparenchymal hemorrhage in the right parietal, occipital, and te mporal lobes. Decrease in scattered subarachnoid hemorrhage 3.Persistent small amount of left lateral ventricular hemorrhage without hydrocephalus Left CT DOSING PQRS STATEMENT: One or more of the following individualized dose reduction techniques were utilized for this examinat ion: 1. Automated exposure control 2. Adjustment of the mA and/or kV according to patient size 3. Use of iterative reconstruction technique Findings were called to the patient's nurse in the ICU at 4:00 PM Electronically signed by: Joao Tom MD (02/27/2021 3:58 PM) [id number]
--- NOTE | 2021-02-27 20:01 | PDOC ---
PROGRESS NOTES Date of Service DATE: 02/27/21 TIME: 19:55 Subjective Subjective seen at 1630 Right occipital craniotomy with evacuation of intracerebral hematoma 02/09 sedated on vent Objective Objective Vital Signs Date Time Temp Pulse Resp B/P (MAP) Pulse Ox O2 Delivery O2 Flow Rate FiO2 02/27/21 19:30 Mechanical Ventilator 02/27/21 19:00 62 16 136/73 (94) 100 02/27/21 16:00 99.5 99.5 Intake and Output 02/27/21 07:00 Intake Total 1616.4 ml Output Total 3450 ml Balance -1833.6 ml IV Total 1616.4 ml Output Urine Total 3450 ml Physical Exam General: Other (sedated on vent, trach) Skin: Other (incision clean and dry) Plan Plan of Care follow up CT with new frontal stroke. The area of hemorrhage is improving neurology following wean sedation as tolerated warren out alter this week D/W family at bedside Comment Review of Relevant I have reviewed the following items neela (where applicable) has been applied. Labs Laboratory Tests Test 02/25/21 20:58 02/26/21 00:07 02/26/21 05:17 02/26/21 09:00 Glucose (Fingerstick) 132 mg/dL (70-99) 162 mg/dL (70-99) 178 mg/dL (70-99) O2 Saturation 90 % (92-99) Arterial Blood pH 7.44 (7.35-7.45) Arterial Blood pCO2 at Patient Temp 33 mmHg (35-46) Arterial Blood pO2 at Patient Temp 59 mmHg (65-108) Arterial Blood HCO3 22 mmol/L (21-28) Arterial Blood Base Excess -1 mmol/L (-3-3) FiO2 40% vent Test 02/26/21 12:11 02/26/21 17:21 02/26/21 23:38 02/27/21 05:00 White Blood Count 7.4 x10^3/uL (4.0-11.0) Red Blood Count 3.55 x10^6/uL (4.30-5.70) Hemoglobin 10.5 g/dL (13.0-17.5) Hematocrit 32.0 % (39.0-53.0) Mean Corpuscular Volume 90 fL (79-100) Mean Corpuscular Hemoglobin 30 pg (25-35) Mean Corpuscular Hemoglobin Concent 33 g/dL (31-37) Red Cell Distribution Width 13.6 % (11.5-14.5) Platelet Count 246 x10^3/uL (140-400) Neutrophils (%) (Auto) 76 % (31-73) Lymphocytes (%) (Auto) 15 % (24-48) Monocytes (%) (Auto) 7 % (0-9) Eosinophils (%) (Auto) 2 % (0-3) Basophils (%) (Auto) 0 % (0-3) Neutrophils # (Auto) 5.6 x10^3/uL (1.8-7.7) Lymphocytes # (Auto) 1.1 x10^3/uL (1.0-4.8) Monocytes # (Auto) 0.5 x10^3/uL (0.0-1.1) Eosinophils # (Auto) 0.1 x10^3/uL (0.0-0.7) Basophils # (Auto) 0.0 x10^3/uL (0.0-0.2) Sodium Level 141 mmol/L (136-145) 140 mmol/L (136-145) Potassium Level 4.0 mmol/L (3.5-5.1) 3.9 mmol/L (3.5-5.1) Chloride Level 106 mmol/L (98-107) 106 mmol/L (98-107) Carbon Dioxide Level 26 mmol/L (21-32) 27 mmol/L (21-32) Anion Gap 9 (6-14) 7 (6-14) Blood Urea Nitrogen 17 mg/dL (8-26) 17 mg/dL (8-26) Creatinine 0.8 mg/dL (0.7-1.3) 0.8 mg/dL (0.7-1.3) Estimated GFR (Cockcroft-Gault) 119.3 119.3 Glucose Level 168 mg/dL (70-99) 207 mg/dL (70-99) Calcium Level 8.9 mg/dL (8.5-10.1) 8.8 mg/dL (8.5-10.1) Phosphorus Level 4.3 mg/dL (2.6-4.7) 4.4 mg/dL (2.6-4.7) Magnesium Level 2.0 mg/dL (1.8-2.4) 2.1 mg/dL (1.8-2.4) Glucose (Fingerstick) 169 mg/dL (70-99) 222 mg/dL (70-99) Test 02/27/21 05:14 02/27/21 08:00 02/27/21 11:55 02/27/21 18:39 Glucose (Fingerstick) 213 mg/dL (70-99) 248 mg/dL (70-99) 245 mg/dL (70-99) O2 Saturation 96 % (92-99) Arterial Blood pH 7.37 (7.35-7.45) Arterial Blood pCO2 at Patient Temp 40 mmHg (35-46) Arterial Blood pO2 at Patient Temp 90 mmHg (65-108) Arterial Blood HCO3 23 mmol/L (21-28) Arterial Blood Base Excess -2 mmol/L (-3-3) FiO2 45 Laboratory Tests Test 02/26/21 23:38 02/27/21 05:00 02/27/21 05:14 02/27/21 08:00 Glucose (Fingerstick) 222 mg/dL (70-99) 213 mg/dL (70-99) Sodium Level 140 mmol/L (136-145) Potassium Level 3.9 mmol/L (3.5-5.1) Chloride Level 106 mmol/L (98-107) Carbon Dioxide Level 27 mmol/L (21-32) Anion Gap 7 (6-14) Blood Urea Nitrogen 17 mg/dL (8-26) Creatinine 0.8 mg/dL (0.7-1.3) Estimated GFR (Cockcroft-Gault) 119.3 Glucose Level 207 mg/dL (70-99) Calcium Level 8.8 mg/dL (8.5-10.1) Phosphorus Level 4.4 mg/dL (2.6-4.7) Magnesium Level 2.1 mg/dL (1.8-2.4) O2 Saturation 96 % (92-99) Arterial Blood pH 7.37 (7.35-7.45) Arterial Blood pCO2 at Patient Temp 40 mmHg (35-46) Arterial Blood pO2 at Patient Temp 90 mmHg (65-108) Arterial Blood HCO3 23 mmol/L (21-28) Arterial Blood Base Excess -2 mmol/L (-3-3) FiO2 45 Test 02/27/21 11:55 02/27/21 18:39 Glucose (Fingerstick) 248 mg/dL (70-99) 245 mg/dL (70-99) Microbiology 02/23/21 Gram Stain - Final, Complete 02/23/21 Aerobic Culture - Final, Complete 02/22/21 Blood Culture - Final, Complete NO GROWTH AFTER 5 DAYS 02/22/21 Gram Stain Evaluation - Final, Complete 02/22/21 Respiratory Culture - Final, Complete Medications Current Medications Nicardipine HCl 50 mg/Sodium Chloride 250 ml @ 12.5 mls/hr CONT PRN IV SEE I/O RECORD Last administered on 02/26/21at 01:20; Start 02/09/21 at 06:15 Labetalol HCl (Normodyne Iv Push) 10 mg PRN Q2HR PRN IVP HYPERTENSION- 1ST CHOICE Last administered on 02/26/21at 03:03; Start 02/09/21 at 06:15 Lorazepam (Ativan Inj) 2 mg 1X ONCE IVP Last administered on 02/09/21at 10:54; Start 02/09/21 at 10:45; Stop 02/09/21 at 10:46; Status DC Lorazepam (Ativan Inj) 2 mg 1X ONCE IVP Last administered on 02/09/21at 11:00; Start 02/09/21 at 11:00; Stop 02/09/21 at 11:01; Status DC Fentanyl Citrate (Fentanyl 2ml Vial) 25 mcg PRN Q2HR PRN IVP MODERATE TO SEVERE PAIN Last administered on 02/09/21at 13:37; Start 02/09/21 at 13:30; Stop 02/18/21 at 22:53; Status DC Info (Review Meds) 1 ea PRN 1X PRN SEE COMMENTS; Start 02/09/21 at 15:00 Acetaminophen (Tylenol Supp) 650 mg PRN Q6HRS PRN [place] FEVER > 100.5'F or 38'C; Start 02/09/21 at 15:00; Stop 02/11/21 at 21:12; Status DC Albuterol Sulfate (Ventolin Neb Soln) 2.5 mg PRN Q4HRS PRN NEB SHORTNESS OF BREATH; Start 02/09/21 at 15:15 Iohexol (Omnipaque 350 Mg/ml) 75 ml 1X ONCE IV Last administered on 02/09/21at 15:52; Start 02/09/21 at 15:30; Stop 02/09/21 at 15:35; Status DC Iohexol (Omnipaque 350 Mg/ml) 100 ml STK-MED ONCE .ROUTE ; Start 02/09/21 at 15:26; Stop 02/09/21 at 15:27; Status DC Info (CONTRAST GIVEN -- Rx MONITORING) 1 each PRN DAILY PRN MC SEE COMMENTS; Start 02/09/21 at 15:45; Stop 02/11/21 at 15:44; Status DC Propofol 100 ml @ As Directed STK-MED ONCE IV ; Start 02/09/21 at 15:51; Stop 02/09/21 at 15:51; Status DC Rocuronium Arbon (Zemuron) 50 mg STK-MED ONCE .ROUTE ; Start 02/09/21 at 15:51; Stop 02/09/21 at 15:51; Status DC Lidocaine HCl (Lidocaine HCl 2% Abboject) 100 mg STK-MED ONCE .ROUTE ; Start 02/09/21 at 15:52; Stop 02/09/21 at 15:53; Status DC Propofol 100 ml @ 3.507 mls/ hr CONT PRN IV PER PROTOCOL Last administered on 02/27/21at 18:56; Start 02/09/21 at 16:15 Lidocaine HCl (Lidocaine HCl 2% Abboject) 100 mg 1X ONCE IV Last administered on 02/09/21at 16:17; Start 02/09/21 at 16:15; Stop 02/09/21 at 16:17; Status DC Rocuronium Arbon (Zemuron) 50 mg 1X ONCE IV Last administered on 02/09/21at 16:17; Start 02/09/21 at 16:15; Stop 02/09/21 at 16:17; Status DC Rocuronium Arbon (Zemuron) 100 mg STK-MED ONCE .ROUTE ; Start 02/09/21 at 16:31; Stop 02/09/21 at 16:32; Status DC Gelatin (Gelfoam Size 100) 1 each STK-MED ONCE .ROUTE Last administered on 02/09/21at 17:49; Start 02/09/21 at 16:33; Stop 02/09/21 at 16:33; Status DC Bupivacaine HCl/ Epinephrine Bitart (Sensorcain-Epi 0.5%-1:051545 Mpf) 30 ml STK-MED ONCE .ROUTE Last administered on 02/09/21at 17:49; Start 02/09/21 at 16:33; Stop 02/09/21 at 16:33; Status DC Cellulose (Surgicel Hemostat 4x8) 1 each STK-MED ONCE .ROUTE Last administered on 02/09/21at 18:38; Start 02/09/21 at 16:33; Stop 02/09/21 at 16:33; Status DC Thrombin 20,000 unit STK-MED ONCE TP Last administered on 02/09/21at 17:49; S tart 02/09/21 at 16:33; Stop 02/09/21 at 16:33; Status DC Fentanyl Citrate (Fentanyl 2ml Vial) 75 mcg 1X ONCE IVP Last administered on 02/09/21at 16:45; Start 02/09/21 at 16:45; Stop 02/09/21 at 16:47; Status DC Propofol (Diprivan) 200 mg 1X ONCE IV ; Start 02/09/21 at 17:15; Stop 02/09/21 at 17:16; Status DC Lidocaine HCl (Lidocaine HCl 2% Abboject) 100 mg 1X ONCE IV ; Start 02/09/21 at 17:15; Stop 02/09/21 at 17:16; Status DC Rocuronium Arbon (Zemuron) 50 mg 1X ONCE IV ; Start 02/09/21 at 17:15; Stop 02/09/21 at 17:16; Status DC Propofol 100 ml @ 0 mls/hr CONT PRN PRN IV SEDATION; Start 02/09/21 at 17:15; Stop 02/10/21 at 05:14; Status DC Cefazolin Sodium (Ancef) 1 gm STK-MED ONCE IVP ; Start 02/09/21 at 17:28; Stop 02/09/21 at 17:28; Status DC Fentanyl Citrate (Fentanyl 2ml Vial) 100 mcg STK-MED ONCE .ROUTE ; Start 02/09/21 at 17:43; Stop 02/09/21 at 17:43; Status DC Rocuronium Arbon (Zemuron) 100 mg STK-MED ONCE .ROUTE ; Start 02/09/21 at 17:58; Stop 02/09/21 at 17:59; Status DC Vecuronium Arbon (Norcuron Bolus) 10 mg STK-MED ONCE IV ; Start 02/09/21 at 18:49; Stop 02/09/21 at 18:50; Status DC Sodium Chloride (SODIUM CHLORIDE 20ml) 20 ml STK-MED ONCE IJ ; Start 02/09/21 at 18:50; Stop 02/09/21 at 18:50; Status DC Sevoflurane (Ultane) 90 ml STK-MED ONCE IH ; Start 02/09/21 at 19:20; Stop 02/09/21 at 19:21; Status DC Fentanyl Citrate 30 ml @ 2.5 mls/hr CONT PRN IV SEE PROTOCOL Last administered on 02/09/21at 23:40; Start 02/09/21 at 23:15; Stop 02/10/21 at 04:43; Status DC Fentanyl Citrate 55 ml @ 0 mls/hr CONT PRN IV SEE I/O Last administered on 02/27/21at 08:52; Start 02/10/21 at 05:00 Potassium Chloride/Dextrose/ Sod Cl 1,000 ml @ 80 mls/hr [id number] IV ; Start 02/10/21 at 09:00; Stop 02/10/21 at 13:21; Status DC Pantoprazole Sodium (PROTONIX VIAL for IV PUSH) 40 mg DAILYAC IVP Last administered on 02/27/21at 08:38; Start 02/10/21 at 09:00 Lidocaine HCl (Buffered Lidocaine 1%) 3 ml STK-MED ONCE .ROUTE ; Start 02/10/21 at 13:18; Stop 02/10/21 at 13:18; Status DC Sodium Chloride 1,000 ml @ 80 mls/hr [id number] IV Last administered on 02/12/21at 03:00; Start 02/10/21 at 13:30; Stop 02/12/21 at 15:36; Status DC Lidocaine HCl (Buffered Lidocaine 1%) 6 ml 1X ONCE INJ Last administered on 02/10/21at 13:57; Start 02/10/21 at 13:45; Stop 02/10/21 at 13:46; Status DC Potassium Chloride/Water 100 ml @ 100 mls/hr Q1H IV Last administered on 02/11/21at 10:07; Start 02/11/21 at 08:00; Stop 02/11/21 at 09:59; Status DC Piperacillin Sod/ Tazobactam Sod 3.375 gm/Sodium Chloride 50 ml @ 100 mls/hr Q6HRS IV Last administered on 02/27/21at 18:37; Start 02/11/21 at 09:00 Info (Tpn Per Pharmacy) 1 each PRN DAILY PRN MC SEE COMMENTS Last administered on 02/27/21at 09:26; Start 02/11/21 at 11:15 Sodium Chloride 90 meq/Potassium Chloride 50 meq/ Potassium Phosphate 13.6 mmol/Magnesium Sulfate 10 meq/ Calcium Gluconate 10 meq/ Multivitamins 5 ml/Zinc/Copper/ Manganese/ Selenium 1 ml/ Total Parenteral Nutrition/Amino Acid s/Dextrose 1,512 ml @ 63 mls/hr TPN CONT IV Last administered on 02/11/21at 22:32; Start 02/11/21 at 22:00; Stop 02/12/21 at 21:59; Status DC Furosemide (Lasix) 20 mg 1X ONCE IVP Last administered on 02/11/21at 15:11; Start 02/11/21 at 15:30; Stop 02/11/21 at 15:31; Status DC Furosemide (Lasix) 20 mg 1X ONCE IVP Last administered on 02/11/21at 17:00; Start 02/11/21 at 17:00; Stop 02/11/21 at 17:01; Status DC Midazolam HCl 100 ml @ 1 mls/hr CONT PRN IV SEE PROTOCOL Last administered on 02/13/21at 20:58; Start 02/11/21 at 19:30 Acetaminophen (Tylenol Supp) 650 mg PRN Q6HRS PRN [place] MILD PAIN / TEMP > 100.3'F; Start 02/11/21 at 21:15 Sodium Chloride 80 meq/Potassium Chloride 50 meq/ Potassium Phosphate 13.6 mmol/Magnesium Sulfate 6 meq/ Calcium Gluconate 10 meq/ Multivitamins 5 ml/Zinc/Copper/ Manganese/ Selenium 1 ml/ Total Parenteral Nutrition/Amino Acids/Dextrose 1,512 ml @ 63 mls/hr TPN CONT IV Last administered on 02/12/21at 22:09; Start 02/12/21 at 22:00; Stop 02/13/21 at 21:59; Status DC Furosemide (Lasix) 40 mg 1X ONCE IVP Last administered on 02/12/21at 12:44; Start 02/12/21 at 12:30; Stop 02/12/21 at 12:31; Status DC Insulin Human Lispro (HumaLOG) 0-5 UNITS Q6HRS SQ Last administered on 02/27/21at 18:42; Start 02/12/21 at 12:00 Dextrose (Dextrose 50%-Water Syringe) 12.5 gm PRN Q15MIN PRN IV SEE COMMENTS; Start 02/12/21 at 12:15 Clonidine HCl (Catapres Tts-3) 1 patch WEEKLY TD Last administered on 02/27/21at 09:06; Start 02/13/21 at 11:00 Sodium Chloride 80 meq/Potassium Chloride 50 meq/ Potassium Phosphate 13.6 mmol/Magnesium Sulfate 6 meq/ Calcium Gluconate 10 meq/ Multivitamins 5 ml/Zinc/Copper/ Manganese/ Selenium 1 ml/ Total Parenteral Nutrition/Amino Acids/Dextrose 1,512 ml @ 63 mls/hr TPN CONT IV Last administered on 02/13/21at 21:42; Start 02/13/21 at 22:00; Stop 02/14/21 at 21:59; Status DC Potassium Acetate 50 meq/Potassium Phosphate 13.6 mmol/Magnesium Sulfate 6 meq/ Calcium Gluconate 10 meq/ Multivitamins 5 ml/Zinc/Copper/ Manganese/ Selenium 1 ml/ Total Parenteral Nutrition/Amino Acids/Dextrose 1,512 ml @ 63 mls/hr TPN CONT IV Last administered on 02/14/21at 21:59; Start 02/14/21 at 22:00; Stop 02/15/21 at 21:59; Status DC Insulin Glargine (Lantus Syringe) 10 unit QHS SQ Last administered on 02/15/21at 22:11; Start 02/14/21 at 21:00; Stop 02/16/21 at 12:42; Status DC Hydralazine HCl (Apresoline Inj) 10 mg PRN Q4HRS PRN IVP ELEVATED BP, SEE COMMENTS Last administered on 02/26/21at 01:56; Start 02/14/21 at 16:00 Potassium Acetate 50 meq/Potassium Phosphate 13.6 mmol/Magnesium Sulfate 6 meq/ Calcium Gluconate 10 meq/ Multivitamins 5 ml/Zinc/Copper/ Manganese/ Selenium 1 ml/ Total Parenteral Nutrition/Amino Acids/Dextrose 1,512 ml @ 63 mls/hr TPN CONT IV Last administered on 02/15/21at 22:13; Start 02/15/21 at 22:00; Stop 02/16/21 at 21:59; Status DC Dexmedetomidine HCl 400 mcg/ Sodium Chloride 100 ml @ 0 mls/hr CONT PRN IV PER PROTOCOL Last administered on 02/27/21at 16:28; Start 02/15/21 at 14:15 Sodium Chloride 500 ml @ 500 mls/hr 1X PRN PRN IV SEE COMMENTS; Start 02/15/21 at 14:15 Atropine Sulfate (ATROPINE 0.5mg SYRINGE) 0.5 mg PRN Q5MIN PRN IV SEE COMMENTS; Start 02/15/21 at 14:15 Potassium Acetate 50 meq/Potassium Phosphate 13.6 mmol/Magnesium Sulfate 6 meq/ Calcium Gluconate 10 meq/ Multivitamins 5 ml/Zinc/Copper/ Manganese/ Selenium 1 ml/ Total Parenteral Nutrition/Amino Acids/Dextrose 1,512 ml @ 63 mls/hr TPN CONT IV Last administered on 02/16/21at 22:59; Start 02/16/21 at 22:00; Stop 02/17/21 at 21:59; Status DC Insulin Glargine (Lantus Syringe) 14 unit QHS SQ Last administered on 02/16/21at 21:14; Start 02/16/21 at 21:00; Stop 02/17/21 at 14:15; Status DC Potassium Acetate 50 meq/Potassium Phosphate 13.6 mmol/Magnesium Sulfate 6 meq/ Calcium Gluconate 10 meq/ Multivitamins 5 ml/Zinc/Copper/ Manganese/ Selenium 1 ml/ Total Parenteral Nutrition/Amino Acids/Dextrose 1,512 ml @ 63 mls/hr TPN CONT IV Last administered on 02/17/21at 20:48; Start 02/17/21 at 22:00; Stop 02/18/21 at 21:59; Status DC Dextrose 1,000 ml @ 75 mls/hr [id number] IV Last administered on 02/18/21at 13:51; Start 02/17/21 at 10:30; Stop 02/19/21 at 12:57; Status DC Insulin Glargine (Lantus Syringe) 18 unit QHS SQ Last administered on 02/17/21at 20:46; Start 02/17/21 at 21:00; Stop 02/18/21 at 11:56; Status DC Insulin Glargine (Lantus Syringe) 22 unit QHS SQ Last administered on 02/18/21at 21:00; Start 02/18/21 at 21:00; Stop 02/19/21 at 14:08; Status DC Potassium Acetate 50 meq/Potassium Phosphate 13.6 mmol/Magnesium Sulfate 6 meq/ Calcium Gluconate 10 meq/ Multivitamins 5 ml/Zinc/Copper/ Manganese/ Selenium 1 ml/ Total Parenteral Nutrition/Amino Acids/Dextrose 1,512 ml @ 63 mls/hr TPN CONT IV Last administered on 02/18/21at 21:43; Start 02/18/21 at 22:00; Stop 02/19/21 at 21:59; Status DC Potassium Acetate 50 meq/Potassium Phosphate 13.6 mmol/Magnesium Sulfate 6 meq/ Calcium Gluconate 10 meq/ Multivitamins 5 ml/Zinc/Copper/ Manganese/ Selenium 1 ml/ Total Parenteral Nutrition/Amino Acids/Dextrose 2,040 ml @ 85 mls/hr TPN CONT IV Last administered on 02/19/21at 20:56; Start 02/19/21 at 22:00; Stop 02/20/21 at 21:59; Status DC Insulin Glargine (Lantus Syringe) 25 unit QHS SQ Last administered on 02/20/21at 22:11; Start 02/19/21 at 21:00; Stop 02/21/21 at 10:10; Status DC Acetaminophen (Tylenol) 650 mg PRN Q6HRS PRN PEG MILD PAIN / TEMP > 100.3'F Last administered on 02/22/21at 08:10; Start 02/19/21 at 18:00 Potassium Acetate 50 meq/Potassium Phosphate 13.6 mmol/Magnesium Sulfate 6 meq/ Calcium Gluconate 10 meq/ Multivitamins 5 ml/Zinc/Copper/ Manganese/ Selenium 1 ml/ Total Parenteral Nutrition/Amino Acids/Dextrose 2,040 ml @ 85 mls/hr TPN CONT IV Last administered on 02/20/21at 22:10; Start 02/20/21 at 22:00; Stop 02/21/21 at 21:59; Status DC Insulin Glargine (Lantus Syringe) 27 unit QHS SQ Last administered on 02/26/21at 20:01; Start 02/21/21 at 21:00 Magnesium Sulfate 50 ml @ 25 mls/hr 1X ONCE IV Last administered on 02/21/21at 11:30; Start 02/21/21 at 11:00; Stop 02/21/21 at 12:59; Status DC Potassium Acetate 50 meq/Potassium Phosphate 13.6 mmol/Magnesium Sulfate 8 meq/ Calcium Gluconate 10 meq/ Multivitamins 5 ml/Zinc/Copper/ Manganese/ Selenium 1 ml/ Total Parenteral Nutrition/Amino Acids/Dextrose 2,040 ml @ 85 mls/hr TPN CONT IV Last administered on 02/21/21at 21:23; Start 02/21/21 at 22:00; Stop 02/22/21 at 21:59; Status DC Daptomycin 570 mg/ Sodium Chloride 50 ml @ 100 mls/hr Q24H IV Last administered on 02/24/21at 13:10; Start 02/22/21 at 12:00; Stop 02/25/21 at 10:34; Status DC Linezolid/Dextrose 300 ml @ 300 mls/hr Q12HR IV Last administered on 02/27/21at 09:05; Start 02/22/21 at 09:00 Potassium Acetate 50 meq/Potassium Phosphate 13.6 mmol/Magnesium Sulfate 8 meq/ Calcium Gluconate 5 meq/ Multivitamins 5 ml/Zinc/Copper/ Manganese/ Selenium 1 ml/ Total Parenteral Nutrition/Amino Acids/Dextrose 2,040 ml @ 85 mls/hr TPN CONT IV Last administered on 02/22/21at 21:32; Start 02/22/21 at 22:00; Stop 02/23/21 at 21:59; Status DC Fentanyl Citrate (Fentanyl 2ml Vial) 25 mcg PRN Q5MIN PRN IVP MILD PAIN 1-3; Start 02/23/21 at 06:00; Stop 02/24/21 at 05:59; Status DC Fentanyl Citrate (Fentanyl 2ml Vial) 50 mcg PRN Q5MIN PRN IVP MODERATE PAIN 4- 6; Start 02/23/21 at 06:00; Stop 02/24/21 at 05:59; Status DC Morphine Sulfate (Morphine Sulfate) 1 mg PRN Q10MIN PRN IVP SEVERE PAIN 7-10; Start 02/23/21 at 06:00; Stop 02/24/21 at 05:59; Status DC Ringer's Solution 1,000 ml @ 30 mls/hr Q24H IV Last administered on 02/23/21at 11:00; Start 02/23/21 at 06:00; Stop 02/23/21 at 17:59; Status DC Hydromorphone HCl (Dilaudid) 0.5 mg PRN Q10MIN PRN IVP SEVERE PAIN 7-10, 2nd CHOICE; Start 02/23/21 at 06:00; Stop 02/24/21 at 05:59; Status DC Prochlorperazine Edisylate (Compazine) 5 mg PACU PRN PRN IVP NAUSEA, MRX1; Start 02/23/21 at 06:00; Stop 02/24/21 at 05:59; Status DC Cellulose (Surgicel Fibrillar 1x2) 1 each STK-MED ONCE .ROUTE ; Start 02/23/21 at 08:23; Stop 02/23/21 at 08:23; Status DC Lidocaine/ Epinephrine (LIDOCAINE 1%-EPI 1:100,000 Multi-Dose) 20 ml STK-MED ONCE .ROUTE Last administered on 02/23/21at 13:33; Start 02/23/21 at 08:23; Stop 02/23/21 at 08:23; Status DC Potassium Acetate 50 meq/Potassium Phosphate 13.6 mmol/Magnesium Sulfate 8 meq/ Calcium Gluconate 5 meq/ Multivitamins 5 ml/Zinc/Copper/ Manganese/ Selenium 1 ml/ Total Parenteral Nutrition/Amino Acids/Dextrose 2,040 ml @ 85 mls/hr TPN CONT IV ; Start 02/23/21 at 22:00; Stop 02/24/21 at 21:59; Status DC Rocuronium Arbon (Zemuron) 50 mg STK-MED ONCE .ROUTE ; Start 02/23/21 at 12:13; Stop 02/23/21 at 12:13; Status DC Fentanyl Citrate (Fentanyl 2ml Vial) 100 mcg STK-MED ONCE .ROUTE ; Start 02/23/21 at 12:24; Stop 02/23/21 at 12:24; Status DC Insulin Human Lispro (HumaLOG VIAL for OP,RR ONLY) 0-10 units PRN Q1HR PRN SQ PER PROTOCOL Last administered on 02/23/21at 13:00; Start 02/23/21 at 13:15; Stop 02/24/21 at 13:14; Status DC Rocuronium Arbon (Zemuron) 100 mg STK-MED ONCE .ROUTE ; Start 02/23/21 at 13:22; Stop 02/23/21 at 13:23; Status DC Albuterol Sulfate (Ventolin Hfa) 60 puff STK-MED ONCE INH ; Start 02/23/21 at 13:47; Stop 02/23/21 at 13:48; Status DC Sevoflurane (Ultane) 60 ml STK-MED ONCE IH ; Start 02/23/21 at 14:21; Stop 02/23/21 at 14:21; Status DC Potassium Acetate 50 meq/Potassium Phosphate 13.6 mmol/Magnesium Sulfate 8 meq/ Calcium Gluconate 5 meq/ Multivitamins 5 ml/Zinc/Copper/ Manganese/ Selenium 1 ml/ Total Parenteral Nutrition/Amino Acids/Dextrose 2,040 ml @ 85 mls/hr TPN CONT IV ; Start 02/25/21 at 22:00; Stop 02/26/21 at 21:59; Status DC Potassium Acetate 50 meq/Potassium Phosphate 13.6 mmol/Magnesium Sulfate 8 meq/ Calcium Gluconate 5 meq/ Multivitamins 5 ml/Zinc/Copper/ Manganese/ Selenium 1 ml/ Total Parenteral Nutrition/Amino Acids/Dextrose 2,040 ml @ 85 mls/hr TPN CONT IV Last administered on 02/26/21at 21:27; Start 02/26/21 at 22:00; Stop 02/27/21 at 21:59 Potassium Acetate 50 meq/Potassium Phosphate 13.6 mmol/Magnesium Sulfate 8 meq/ Calcium Gluconate 5 meq/ Multivitamins 5 ml/Zinc/Copper/ Manganese/ Selenium 1 ml/ Total Parenteral Nutrition/Amino Acids/Dextrose 2,040 ml @ 85 mls/hr TPN CONT IV ; Start 02/27/21 at 22:00; Stop 02/28/21 at 21:59 Vitals/I & O Vital Sign - Last 24 Hours 02/26/21 02/26/21 02/26/21 02/26/21 20:00 20:00 20:48 21:00 Temp 99.4 99.4 Pulse 66 66 Resp 16 16 B/P (MAP) 153/84 (107) 153/86 (108) Pulse Ox 100 100 100 O2 Delivery Mechanical Ventilator Ventilator Ventilator Ventilator 7/25/21 7/25/21 7/26/21 7/26/21 22:00 23:00 00:00 00:00 Temp 99.2 99.2 Pulse 60 62 62 Resp 16 16 16 B/P (MAP) 140/83 (102) 138/82 (100) 123/84 (97) Pulse Ox 100 100 100 O2 Delivery Ventilator Ventilator Mechanical Ventilator Ventilator 02/27/21 02/27/21 02/27/21 02/27/21 00:00 01:00 02:00 02:58 Pulse 76 71 Resp 16 16 B/P (MAP) 143/77 (99) 138/88 (105) Pulse Ox 100 100 100 100 O2 Delivery Ventilator Ventilator Ventilator Ventilator 02/27/21 02/27/21 02/27/21 02/27/21 03:00 04:00 04:00 05:00 Temp 98.6 98.6 Pulse 55 57 56 Resp 16 16 16 B/P (MAP) 135/84 (101) 124/83 (97) 122/77 (92) Pulse Ox 100 100 100 O2 Delivery Ventilator Ventilator Mechanical Ventilator Ventilator 02/27/21 02/27/21 02/27/21 02/27/21 05:30 06:00 07:00 08:00 Pulse 60 56 Resp 16 16 B/P (MAP) 133/81 (98) 133/82 (99) Pulse Ox 100 100 100 O2 Delivery Ventilator Ventilator Ventilator Mechanical Ventilator 02/27/21 02/27/21 02/27/21 02/27/21 08:00 08:00 08:52 09:00 Temp 98.6 98.6 Pulse 54 54 Resp 16 16 16 B/P (MAP) 144/86 (105) 136/87 (103) Pulse Ox 100 100 100 100 O2 Delivery Ventilator Ventilator Ventilator Ventilator 02/27/21 02/27/21 02/27/21 02/27/21 09:22 10:00 11:00 11:55 Pulse 53 55 Resp 16 16 16 B/P (MAP) 140/84 (102) 155/88 (110) Pulse Ox 100 100 100 100 O2 Delivery Ventilator Ventilator Ventilator Ventilator 02/27/21 02/27/21 02/27/21 02/27/21 12:00 12:00 13:00 13:52 Temp 98.7 98.7 Pulse 56 66 Resp 19 18 B/P (MAP) 166/95 (118) 164/89 (114) Pulse Ox 100 98 100 O2 Delivery Ventilator Mechanical Ventilator Ventilator Ventilator 02/27/21 02/27/21 02/27/21 02/27/21 14:00 15:00 16:00 16:00 Temp 99.5 99.5 Pulse 60 60 58 Resp 18 18 18 B/P (MAP) 148/89 (108) 149/85 (106) 145/88 (107) Pulse Ox 100 100 100 O2 Delivery Ventilator Ventilator Mechanical Ventilator Ventilator 02/27/21 02/27/21 02/27/21 02/27/21 16:20 17:00 18:00 18:05 Pulse 58 58 Resp 16 18 B/P (MAP) 161/90 (113) 143/82 (102) Pulse Ox 100 100 100 100 O2 Delivery Ventilator Ventilator Ventilator Ventilator 02/27/21 02/27/21 19:00 19:30 Pulse 62 Resp 16 B/P (MAP) 136/73 (94) Pulse Ox 100 O2 Delivery Ventilator Mechanical Ventilator Intake and Output 02/26/21 02/26/21 02/27/21 15:00 23:00 07:00 Intake Total 300 ml 1316.4 ml Output Total 850 ml 1450 ml 1150 ml Balance -850 ml -1150 ml 166.4 ml Justifications for Admission Other Justification LUCINDA DENNY MD Feb 27, 2021 20:01
[2021-02-27] MEDS: INSULIN GLARGINE SYRINGE. SQ SCH (21:01)
[2021-02-27] MEDS ORDERED: AMINO ACID IV SCH (22:00)
[2021-02-27] MEDS ORDERED: [UNRECOGNIZED DRUG - OTHER] IV SCH (22:00)
[2021-02-27] MEDS ORDERED: DEXTROSE 70% IV SCH (22:00)
[2021-02-27] MEDS ORDERED: TOTAL PARENTERAL NUTRITION IV SCH (22:00)
[2021-02-28] VITALS (25 sets, daily range): BP systolic 137–176; BP diastolic 63–94
[2021-02-28] MEDS: PROPOFOL 100 ML IV PRN ×5 (02:56→21:39)
[2021-02-28] MEDS: DEXMEDETOMIDINE 400 MCG in IV NORMAL SALINE 100ML 96 ML IV PRN ×4 (02:56→18:31)
[2021-02-28] MEDS: PIPERACILLIN/TAZOBACTAM 3.375 GM in IV NORMAL SALINE 50ML 50 ML IV SCH ×3 (05:12→17:19)
[2021-02-28] MEDS: INSULIN LISPRO 300 UNITS/3 ML VIAL. SQ SCH ×3 (05:13→17:18)
[2021-02-28 06:02] LABS: ALBUMIN 2.1 g/dL (3.4-5.0); ALBUMIN/GLOBULIN RATIO 0.5 (1.0-1.7); CALCIUM 8.9 mg/dL (8.5-10.1); CREATININE 0.8 mg/dL (0.7-1.3); GFR 119.3; POTASSIUM 4.1 mmol/L (3.5-5.1); TOTAL BILIRUBIN 0.5 mg/dL (0.2-1.0); TOTAL PROTEIN 6.4 g/dL (6.4-8.2)
--- NOTE | 2021-02-28 07:33 | PDOC ---
PULMONARY PROGRESS NOTES DATE: 02/28/21 TIME: 07:33 Subjective Patient currently on assist control, sedated. Status post tracheostomy on 02/23 Vitals Vital Signs Date Time Temp Pulse Resp B/P (MAP) Pulse Ox O2 Delivery O2 Flow Rate FiO2 02/28/21 06:00 59 16 165/88 (113) 100 Ventilator 02/28/21 04:00 99.4 99.4 Comments ros unable to obtain intubated on vent Lungs: Clear Cardiovascular: S1, S2 Abdomen: Soft, Non-tender Extremities: No Edema Skin: Warm Labs Laboratory Tests Test 02/26/21 09:00 02/26/21 12:11 02/26/21 17:21 02/26/21 23:38 O2 Saturation 90 % (92-99) Arterial Blood pH 7.44 (7.35-7.45) Arterial Blood pCO2 at Patient Temp 33 mmHg (35-46) Arterial Blood pO2 at Patient Temp 59 mmHg (65-108) Arterial Blood HCO3 22 mmol/L (21-28) Arterial Blood Base Excess -1 mmol/L (-3-3) FiO2 40% vent White Blood Count 7.4 x10^3/uL (4.0-11.0) Red Blood Count 3.55 x10^6/uL (4.30-5.70) Hemoglobin 10.5 g/dL (13.0-17.5) Hematocrit 32.0 % (39.0-53.0) Mean Corpuscular Volume 90 fL (79-100) Mean Corpuscular Hemoglobin 30 pg (25-35) Mean Corpuscular Hemoglobin Concent 33 g/dL (31-37) Red Cell Distribution Width 13.6 % (11.5-14.5) Platelet Count 246 x10^3/uL (140-400) Neutrophils (%) (Auto) 76 % (31-73) Lymphocytes (%) (Auto) 15 % (24-48) Monocytes (%) (Auto) 7 % (0-9) Eosinophils (%) (Auto) 2 % (0-3) Basophils (%) (Auto) 0 % (0-3) Neutrophils # (Auto) 5.6 x10^3/uL (1.8-7.7) Lymphocytes # (Auto) 1.1 x10^3/uL (1.0-4.8) Monocytes # (Auto) 0.5 x10^3/uL (0.0-1.1) Eosinophils # (Auto) 0.1 x10^3/uL (0.0-0.7) Basophils # (Auto) 0.0 x10^3/uL (0.0-0.2) Sodium Level 141 mmol/L (136-145) Potassium Level 4.0 mmol/L (3.5-5.1) Chloride Level 106 mmol/L (98-107) Carbon Dioxide Level 26 mmol/L (21-32) Anion Gap 9 (6-14) Blood Urea Nitrogen 17 mg/dL (8-26) Creatinine 0.8 mg/dL (0.7-1.3) Estimated GFR (Cockcroft-Gault) 119.3 Glucose Level 168 mg/dL (70-99) Calcium Level 8.9 mg/dL (8.5-10.1) Phosphorus Level 4.3 mg/dL (2.6-4.7) Magnesium Level 2.0 mg/dL (1.8-2.4) Glucose (Fingerstick) 169 mg/dL (70-99) 222 mg/dL (70-99) Test 02/27/21 05:00 02/27/21 05:14 02/27/21 08:00 02/27/21 11:55 Sodium Level 140 mmol/L (136-145) Potassium Level 3.9 mmol/L (3.5-5.1) Chloride Level 106 mmol/L (98-107) Carbon Dioxide Level 27 mmol/L (21-32) Anion Gap 7 (6-14) Blood Urea Nitrogen 17 mg/dL (8-26) Creatinine 0.8 mg/dL (0.7-1.3) Estimated GFR (Cockcroft-Gault) 119.3 Glucose Level 207 mg/dL (70-99) Calcium Level 8.8 mg/dL (8.5-10.1) Phosphorus Level 4.4 mg/dL (2.6-4.7) Magnesium Level 2.1 mg/dL (1.8-2.4) Glucose (Fingerstick) 213 mg/dL (70-99) 248 mg/dL (70-99) O2 Saturation 96 % (92-99) Arterial Blood pH 7.37 (7.35-7.45) Arterial Blood pCO2 at Patient Temp 40 mmHg (35-46) Arterial Blood pO2 at Patient Temp 90 mmHg (65-108) Arterial Blood HCO3 23 mmol/L (21-28) Arterial Blood Base Excess -2 mmol/L (-3-3) FiO2 45 Test 02/27/21 18:39 02/27/21 23:20 02/28/21 05:11 02/28/21 05:15 Glucose (Fingerstick) 245 mg/dL (70-99) 244 mg/dL (70-99) 227 mg/dL (70-99) Sodium Level 138 mmol/L (136-145) Potassium Level 4.1 mmol/L (3.5-5.1) Chloride Level 104 mmol/L (98-107) Carbon Dioxide Level 27 mmol/L (21-32) Anion Gap 7 (6-14) Blood Urea Nitrogen 14 mg/dL (8-26) Creatinine 0.8 mg/dL (0.7-1.3) Estimated GFR (Cockcroft-Gault) 119.3 BUN/Creatinine Ratio 18 (6-20) Glucose Level 208 mg/dL (70-99) Calcium Level 8.9 mg/dL (8.5-10.1) Total Bilirubin 0.5 mg/dL (0.2-1.0) Aspartate Amino Transf (AST/SGOT) 35 U/L (15-37) Alanine Aminotransferase (ALT/SGPT) 67 U/L (16-63) Alkaline Phosphatase 111 U/L (46-116) Total Protein 6.4 g/dL (6.4-8.2) Albumin 2.1 g/dL (3.4-5.0) Albumin/Globulin Ratio 0.5 (1.0-1.7) Laboratory Tests Test 02/27/21 08:00 02/27/21 11:55 02/27/21 18:39 02/27/21 23:20 O2 Saturation 96 % (92-99) Arterial Blood pH 7.37 (7.35-7.45) Arterial Blood pCO2 at Patient Temp 40 mmHg (35-46) Arterial Blood pO2 at Patient Temp 90 mmHg (65-108) Arterial Blood HCO3 23 mmol/L (21-28) Arterial Blood Base Excess -2 mmol/L (-3-3) FiO2 45 Glucose (Fingerstick) 248 mg/dL (70-99) 245 mg/dL (70-99) 244 mg/dL (70-99) Test 02/28/21 05:11 02/28/21 05:15 Glucose (Fingerstick) 227 mg/dL (70-99) Sodium Level 138 mmol/L (136-145) Potassium Level 4.1 mmol/L (3.5-5.1) Chloride Level 104 mmol/L (98-107) Carbon Dioxide Level 27 mmol/L (21-32) Anion Gap 7 (6-14) Blood Urea Nitrogen 14 mg/dL (8-26) Creatinine 0.8 mg/dL (0.7-1.3) Estimated GFR (Cockcroft-Gault) 119.3 BUN/Creatinine Ratio 18 (6-20) Glucose Level 208 mg/dL (70-99) Calcium Level 8.9 mg/dL (8.5-10.1) Total Bilirubin 0.5 mg/dL (0.2-1.0) Aspartate Amino Transf (AST/SGOT) 35 U/L (15-37) Alanine Aminotransferase (ALT/SGPT) 67 U/L (16-63) Alkaline Phosphatase 111 U/L (46-116) Total Protein 6.4 g/dL (6.4-8.2) Albumin 2.1 g/dL (3.4-5.0) Albumin/Globulin Ratio 0.5 (1.0-1.7) Comments CXR 02/21/21 IMPRESSION: 1. Stable life support devices. 2. Improving bibasilar opacities.. CXR 02/18/21 IMPRESSION: Unchanged bibasilar opacities. Recommend follow-up to ensure resolution, particularly of focal opacities in the right lung base. CXR 02/17/21 IMPRESSION: 1. Stable life support devices. 2. Stable bibasilar opacities. 3. Stable small left pleural effusion. IMPRESSION: Chest x-ray 02/13 1. Stable support lines and tubes. 2. Severe right upper lobe predominant bullous emphysema. 3. Stable right perihilar linear atelectasis or infiltrate superimposed on diffuse interstitial prominence and small pleural effusions. Impression . IMPRESSION: 1. Acute hypoxic respiratory failure multifactorial, predominantly to i ntraparenchymal cerebral hematoma. Status post tracheostomy 02/23 2. Abnormal x-ray 3. Long history of tobaccoism. CT angiogram showed bullous emphysema in the upper lobes. 3. Acute kidney injury--resolved 4. Leukocytosis--resolved 5. s/p Right occipital craniotomy with evacuation of intracerebral hematoma. 02/09/21 6. Encephalopathy, multifactorial--ongoing 7. Uncontrolled hypertension 8. Fever, per ID 9. Status post tracheotomy 02/23 CT head 02/13, IMPRESSION: 1. Expected interval evolution of a right posterior temporal/occipital intraparenchymal hematoma status post decompressive craniotomy. 2. Expected evolution of a small amount of subarachnoid and intraventricular clot. DATE OF SURGERY: 02/09/2021 PREOPERATIVE DIAGNOSIS: Right posterior temporoparietal occipital intracerebral hemorrhage with neurologic deterioration. POSTOPERATIVE DIAGNOSIS: Right posterior temporoparietal occipital intracerebral hemorrhage with neurologic deterioration. OPERATION PERFORMED: Right occipital craniotomy with evacuation of intracerebral hematoma. Plan . Updated 02/28 Discussed with RN and RT Decrease sedation Pressure support throughout the day as tolerated Antibiotics per ID DVT GI prophylaxis Updated 02/27/21 Continue current vent support A/C mode rate of 16 at 40%. Status post tracheostomy 02/23 Follow ABG/CXR--make changes to based on ABGs. Follow ID recs for ABX on zosyn Follow Cardiology recs Follow neurosurgery recs-- S/P Right occipital craniotomy with evacuation of intracerebral hematoma--02/09/21 TPN for nutritional support Hyperglycemia per PCP DVT/GI PPX D/W RN and RT Awaiting insurance coverage before transfer to long-term acute care facility Will need PEG tube MANJULA PADILLA MD Feb 28, 2021 07:33
--- NOTE | 2021-02-28 08:00 | PDOC ---
Infectious Disease Note Subjective: Subjective Pt remains intubated ,sedated T max 99.6 Condition remains unchanged overall Discussed with nursing staff Vital Signs: Vital Signs Vital Signs Date Time Temp Pulse Resp B/P (MAP) Pulse Ox O2 Delivery O2 Flow Rate FiO2 02/28/21 07:00 61 16 146/82 (103) 100 Ventilator 02/28/21 04:00 99.4 99.4 Physical Exam: PHYSICAL EXAM GENERAL: Sedated on vent, patient is not following commands HEENT: ETT/OGT +, eyes open NECK trach present LUNGS: Decreased breath sound at bases HEART: S1, S2 bradycardia ABDOMEN: Soft, nontender, no organomegaly. EXTREMITIES: + edema, no cyanosis. SKIN:no gen rash NEUROLOGIC: unable to assess Right IJ taken out Line clean Medications: Inpatient Meds: Medications reviewed. Labs: Lab Laboratory Tests Test 02/27/21 08:00 02/27/21 11:55 02/27/21 18:39 02/27/21 23:20 O2 Saturation 96 % (92-99) Arterial Blood pH 7.37 (7.35-7.45) Arterial Blood pCO2 at Patient Temp 40 mmHg (35-46) Arterial Blood pO2 at Patient Temp 90 mmHg (65-108) Arterial Blood HCO3 23 mmol/L (21-28) Arterial Blood Base Excess -2 mmol/L (-3-3) FiO2 45 Glucose (Fingerstick) 248 mg/dL (70-99) 245 mg/dL (70-99) 244 mg/dL (70-99) Test 02/28/21 05:11 02/28/21 05:15 Glucose (Fingerstick) 227 mg/dL (70-99) Sodium Level 138 mmol/L (136-145) Potassium Level 4.1 mmol/L (3.5-5.1) Chloride Level 104 mmol/L (98-107) Carbon Dioxide Level 27 mmol/L (21-32) Anion Gap 7 (6-14) Blood Urea Nitrogen 14 mg/dL (8-26) Creatinine 0.8 mg/dL (0.7-1.3) Estimated GFR (Cockcroft-Gault) 119.3 BUN/Creatinine Ratio 18 (6-20) Glucose Level 208 mg/dL (70-99) Calcium Level 8.9 mg/dL (8.5-10.1) Total Bilirubin 0.5 mg/dL (0.2-1.0) Aspartate Amino Transf (AST/SGOT) 35 U/L (15-37) Alanine Aminotransferase (ALT/SGPT) 67 U/L (16-63) Alkaline Phosphatase 111 U/L (46-116) Total Protein 6.4 g/dL (6.4-8.2) Albumin 2.1 g/dL (3.4-5.0) Albumin/Globulin Ratio 0.5 (1.0-1.7) Objective: Assessment: 1. Fever.resolved,cult neg 2. Acute hypoxic respiratory failure status post intubation suspected aspiration.sputum cultures NRF 3. Intracranial bleed with mass effect, status post craniotomy and hematoma evacuation. Repeat CT head noted 4. Encephalopathy, 5. Respiratory failure. 6. Hypertension. 7. Chronic obstructive pulmonary disease. 8. MARVIN improved U/S BUE to neg for DVT Plan: Plan of Care cont Zosyn/Zyvox Central line removed;Cath tip negative so far Monitor labs and cults cont supportive care Neurology and neurosurgery following Prognosis guarded Discussed with family last weekend Discussed with nursing staff RAMU DELGADO MD Feb 28, 2021 08:00
[2021-02-28 08:05] LABS: BASE EXCESS ABG -3 mmol/L (-3-3); HCO3 ABG 22 mmol/L (21-28); PCO2 ABG 37 mmHg (35-46); PO2 ABG 100 mmHg (65-108); SAT O2 ABG 97 % (92-99)
[2021-02-28] MEDS: PANTOPRAZOLE IV PUSH 40 MG VIAL. IVP SCH (08:46)
[2021-02-28 08:57] LABS: FIO2 ABG 45%+5
[2021-02-28] MEDS: LABETALOL 20 MG/4 ML DISP.SYRIN. IVP PRN (11:12)
--- NOTE | 2021-02-28 11:44 | PDOC ---
[employer] PROGRESS NOTE Date of Service DOS: DATE: 02/28/21 TIME: 11:42 Chief Complaint Chief Complaint Respiratory failure requiring intubation Status post tracheostomy [employer] hemorrhage Status post craniotomy 02/09/2021 Obesity Aspiration Hypertension COPD Acute kidney injury Severe malnutrition History of Present Illness History of Present Illness 02/28/2021 Patient seen and examined in the ICU He remains mechanically ventilated Has a tracheostomy in place Vent settings as follows AC/16/500/45/5 of PEEP Has SCDs in place Moore is to bedside drainage Sedated with Precedex fentanyl and propofol Has IV TPN Chart reviewed Discussed with RN He remains critically 02/27/2021 Patient seen and examined in the ICU He remains mechanically ventilated AC/16/500/40 5% with 5 of PEEP Has tracheostomy in place Has TPN running SCDs are in place Moore to bedside drainage Sedated with fentanyl and propofol Discussed with RN Chart reviewed He remains critically 02/26/2021: Low-grade fever overnight (99.6 F). On vent with FiO2 40%, PEEP 5. S/p tracheostomy 02/23. Per RN, some hypertension overnight (systolic BP 203) requiring IV nicardipine, but this has been titrated down and now able to resume as needed hydralazine. Recommend keep nicardipine on standby to maintain blood pressure <150/90 mmHg. Continue TPN but will likely need PEG tube and eventually long-term acute care. Due to low-grade fever, lines are being changed. Continue Zosyn and Zyvox, per ID. Critical care time 30 minutes spent reviewing charts, reviewing imaging, reviewing labs, and discussion with RN. 02/25/2021: Remains on vent with FiO2 40%, PEEP 5. Afebrile. Plan for follow-up CT head on Saturday. Continue Zosyn, per ID. Blood glucose well controlled. Critical care time 30 minutes spent reviewing charts, reviewing imaging, reviewing labs, and discussion with RN. 02/24/2021: Afebrile. Had tracheostomy performed yesterday. On vent with FiO2 40%, PEEP 5. Continue antibiotics, per ID. Critical care time 30 minutes reviewing labs, reviewing imaging, reviewing charts, discussed with RN. 02/23/2021: Patient remains intubated in ICU, FiO2 40%, PEEP 5. I believe plan is for trach today. Continue daptomycin, Zosyn, and Zyvox, per ID. Critical care time 30 minutes spent reviewing charts, reviewing labs, reviewing imaging, discussion with RN. 02/22/2011: Patient ange intubated in ICU. Febrile today, T-max 100.3. FiO2 40, PEEP 5. Continue treatment with Zosyn, per ID. Continue to wean sedation as tolerated. Plan for trach tomorrow. Critical care time 30 minutes spent reviewing chart, reviewing labs, imaging, and discussion with RN. 02/21/2021: Patient remains intubated in ICU, FiO2 40%, PEEP 5. Afebrile. POD #12, s/p right occipital craniotomy with evacuation of intracerebral hematoma (02/09/21). Chest x-ray today shows improving bibasilar opacities. Continue Zosyn, per ID. Critical care time 30 minutes spent reviewing charts, reviewing labs, reviewing imaging, discussion with RN. 02/20/2021: POD #11 Right occipital craniotomy with evacuation of intracerebral hematoma (02/09/21). Remains sedated on ventilator, FiO2 40%, PEEP 5. Chest x- ray from 02/18 showed unchanged bibasilar opacities; recommending follow-up to ensure resolution, particularly of focal opacities in the right lung base. Continue Zosyn. Continue supportive care. Critical care time 30 minutes spent reviewing charts, reviewing labs, reviewing imaging, discussion with RN. 02/19/2021 POD #11 Right occipital craniotomy with evacuation of intracerebral hematoma sedated on vent Patient seen and examined at bedside Continue antibiotics per infectious disease Weaning ventilator and sedation as tolerated extubation in the next few days Plan of care discussed with bedside nurse Expected interval evolution of a right posterior temporal/occipital intraparenchymal hematoma status post decompressive craniotomy Large right temporo-occipital intraparenchymal bleed, most likely lobar hemorrhage from hypertension, consider venous sinus thrombosis, less likely in this location, aneurysmal bleed, head trauma (also unlikely). craniotomy 02/09 evening Suspect of aspiration, respiratory failure, hypertension, chronic obstructive pulmonary disease, improving acute kidney injury cont Zosyn glucose uncontrolled add Lantus 22 UNITS SQ HS elevated troponin suspect stress induced ischemia 36 MIN CC TIME 02/18/2021 POD #10 Right occipital craniotomy with evacuation of intracerebral hematoma sedated on vent Patient seen and examined at bedside Continue antibiotics per infectious disease Weaning ventilator and sedation as tolerated extubation in the next few days Plan of care discussed with bedside nurse Expected interval evolution of a right posterior temporal/occipital intraparenchymal hematoma status post decompressive craniotomy Large right temporo-occipital intraparenchymal bleed, most likely lobar hemorrhage from hypertension, consider venous sinus thrombosis, less likely in this location, aneurysmal bleed, head trauma (also unlikely). Had craniotomy 7/ evening Suspect of aspiration, respiratory failure, hypertension, chronic obstructive pulmonary disease, improving acute kidney injury cont Zosyn glucose uncontrolled add Lantus 22 UNITS SQ HS 34 MIN CC TIME 02/17/2021 POD #8 Right occipital craniotomy with evacuation of intracerebral hematoma sedated on vent Patient seen and examined at bedside Good response to IV Lasix Continue antibiotics per infectious disease Weaning ventilator and sedation as tolerated extubation in the next few days Plan of care discussed with bedside nurse Expected interval evolution of a right posterior temporal/occipital intraparenchymal hematoma status post decompressive craniotomy Large right temporo-occipital intraparenchymal bleed, most likely lobar hemorrhage from hypertension, consider venous sinus thrombosis, less likely in this location, aneurysmal bleed, head trauma (also unlikely). Had craniotomy / evening Suspect of aspiration, respiratory failure, hypertension, chronic obstructive pulmonary disease, improving acute kidney injury cont Zosyn glucose uncontrolled add Lantus 18 UNITS SQ HS 33 MIN CC TIME 02/16/2021 POD #7 Right occipital craniotomy with evacuation of intracerebral hematoma sedated on vent Patient seen and examined at bedside Good response to IV Lasix Continue antibiotics per infectious disease Weaning ventilator and sedation as tolerated extubation in the next few days Plan of care discussed with bedside nurse Expected interval evolution of a right posterior temporal/occipital intraparenchymal hematoma status post decompressive craniotomy Large right temporo-occipital intraparenchymal bleed, most likely lobar hemorrhage from hypertension, consider venous sinus thrombosis, less likely in this location, aneurysmal bleed, head trauma (also unlikely). Had craniotomy 7/ evening Suspect of aspiration, respiratory failure, hypertension, chronic obstructive pulmonary disease, improving acute kidney injury cont Zosyn glucose uncontrolled add Lantus 14 UNITS SQ HS 35 MIN CC TIME 02/15/2021 POD #6 Right occipital craniotomy with evacuation of intracerebral hematoma sedated on vent Patient seen and examined at bedside Good response to IV Lasix Continue antibiotics per infectious disease Weaning ventilator and sedation as tolerated Hopeful extubation in the next few days Plan of care discussed with bedside nurse Expected interval evolution of a right posterior temporal/occipital intraparenchymal hematoma status post decompressive craniotomy Large right temporo-occipital intraparenchymal bleed, most likely lobar hemorrhage from hypertension, consider venous sinus thrombosis, less likely in this location, aneurysmal bleed, head trauma (also unlikely). Had craniotomy 02/09 evening Suspect of aspiration, respiratory failure, hypertension, chronic obstructive pulmonary disease, improving acute kidney injury cont Zosyn glucose uncontrolled add Lantus 35 MIN CC TIME 02/14/2021 POD #5 Right occipital craniotomy with evacuation of intracerebral hematoma sedated on vent Patient seen and examined at bedside Good response to IV Lasix Continue antibiotics per infectious disease Weaning ventilator and sedation as tolerated Hopeful extubation in the next few days Plan of care discussed with bedside nurse Expected interval evolution of a right posterior temporal/occipital intraparenchymal hematoma status post decompressive craniotomy Large right temporo-occipital intraparenchymal bleed, most likely lobar hemorrhage from hypertension, consider venous sinus thrombosis, less likely in this location, aneurysmal bleed, head trauma (also unlikely). Had craniotomy 02/09 evening Suspect of aspiration, respiratory failure, hypertension, chronic obstructive pulmonary disease, improving acute kidney injury cont Zosyn glucose uncontrolled add Lantus 35 MIN CC TIME 02/13/2021 POD #4 Right occipital craniotomy with evacuation of intracerebral hematoma sedated on vent Patient seen and examined at bedside Good response to IV Lasix Continue antibiotics per infectious disease Weaning ventilator and sedation as tolerated Hopeful extubation in the next few days Plan of care discussed with bedside nurse Expected interval evolution of a right posterior temporal/occipital intraparenchymal hematoma status post decompressive craniotomy Large right temporo-occipital intraparenchymal bleed, most likely lobar hemorrhage from hypertension, consider venous sinus thrombosis, less likely in this location, aneurysmal bleed, head trauma (also unlikely). Had craniotomy 02/09 evening Suspect of aspiration, respiratory failure, hypertension, chronic obstructive pulmonary disease, improving acute kidney injury cont Zosyn 35 MIN CC TIME 02/12/2021 Patient seen and examined at bedside Remains intubated and sedated Good response to IV Lasix yesterday had nearly 3 L out; will diurese again today Continue antibiotics per infectious disease Weaning ventilator and sedation as tolerated Hopeful extubation in the next few days Plan of care discussed with bedside nurse 02/11/2021 Patient seen and examined at bedside No major clinical changes overnight however this morning patient has largely increased amount of secretions Chest x-ray concerning for possible pneumonia, will consult ID who recommended starting Zosyn Otherwise he remains intubated and sedated We will follow subspecialist input Plan discussed with bedside RN 02/10/2021 Patient seen and examined at bedside Underwent craniotomy yesterday due to unresponsiveness in the late afternoon; was also intubated Continues to have a poor neurologic status Neurology and neurosurgery following Discussed plan of care with bedside nurse Patient is a 61-year-old male transferred for to the ICU overnight due to hypertensive emergency and intracranial hemorrhage. Patient's mother at bedside provides most the history. She reports that patient had been in his usual state of health until yesterday morning when he reported feeling tired and having a headache. Patient mother reports he normally gets up early and goes outside however this was not the case yesterday. With this headache he took BC powder and went back to bed. Patient's mother reports that he was in and out of bed throughout most of the afternoon. Says patient did not eat anything yesterday which is very unusual for him. Approximately 1130 last night she had the patient get up to go to the bathroom and heard him fall. He however is able to get up and returned to bed; unknown if he hit his head at this time. Patient again woke up around 2 AM and woke up his mother asking for orange juice and then proceeded to fall again, she does not think he hit his head at this time. He was taken to hospital and found to have a systolic blood pressure greater than [address] scan found to have an intracranial hemorrhage. Due to severity of his condition he was transferred here. Patient's mother reports she is not aware of any past medical history other than hypertension which he intermittently takes hydrochlorothiazide for. Vitals/I&O Vitals/I&O: Vital Signs Date Time Temp Pulse Resp B/P (MAP) Pulse Ox O2 Delivery O2 Flow Rate FiO2 02/28/21 11:12 57 166/91 02/28/21 11:00 16 100 Ventilator 02/28/21 08:00 99.6 99.6 I & O 02/27/21 02/27/21 02/28/21 15:00 23:00 07:00 Intake Total 2012.8 ml 1492.7 ml Output Total 985 ml 1340 ml 1150 ml Balance -985 ml 672.8 ml 342.7 ml Physical Exam Physical Exam: GENERAL: Sedated on vent, patient is not following commands HEENT: ETT/OGT +, eyes open NECK trach present LUNGS: Decreased breath sound at bases HEART: S1, S2 bradycardia ABDOMEN: Soft, nontender, no organomegaly. EXTREMITIES: + edema, no cyanosis. SKIN:no gen rash NEUROLOGIC: unable to assess Right IJ taken out Line clean General: Other (sedated on vent, trach) Heart: Regular rate Lungs: Clear Abdomen: Normal bowel sounds Extremities: No clubbing, No edema Skin: Other (incision clean and dry) Labs Labs: Laboratory Tests Test 02/27/21 11:55 02/27/21 18:39 02/27/21 23:20 02/28/21 05:11 Glucose (Fingerstick) 248 mg/dL (70-99) 245 mg/dL (70-99) 244 mg/dL (70-99) 227 mg/dL (70-99) Test 02/28/21 05:15 02/28/21 08:00 02/28/21 11:21 Sodium Level 138 mmol/L (136-145) Potassium Level 4.1 mmol/L (3.5-5.1) Chloride Level 104 mmol/L (98-107) Carbon Dioxide Level 27 mmol/L (21-32) Anion Gap 7 (6-14) Blood Urea Nitrogen 14 mg/dL (8-26) Creatinine 0.8 mg/dL (0.7-1.3) Estimated GFR (Cockcroft-Gault) 119.3 BUN/Creatinine Ratio 18 (6-20) Glucose Level 208 mg/dL (70-99) Calcium Level 8.9 mg/dL (8.5-10.1) Total Bilirubin 0.5 mg/dL (0.2-1.0) Aspartate Amino Transf (AST/SGOT) 35 U/L (15-37) Alanine Aminotransferase (ALT/SGPT) 67 U/L (16-63) Alkaline Phosphatase 111 U/L (46-116) Total Protein 6.4 g/dL (6.4-8.2) Albumin 2.1 g/dL (3.4-5.0) Albumin/Globulin Ratio 0.5 (1.0-1.7) O2 Saturation 97 % (92-99) Arterial Blood pH 7.39 (7.35-7.45) Arterial Blood pCO2 at Patient Temp 37 mmHg (35-46) Arterial Blood pO2 at Patient Temp 100 mmHg (65-108) Arterial Blood HCO3 22 mmol/L (21-28) Arterial Blood Base Excess -3 mmol/L (-3-3) FiO2 45%+5 Glucose (Fingerstick) 223 mg/dL (70-99) Assessment and Plan Assessmemt and Plan Dizziness Large right temporo-occipital intraparenchymal bleed, most likely lobar hemorrhage from hypertension, consider venous sinus thrombosis, , aneurysmal bleed, Had craniotomy 02/09 evening Suspect aspiration, respiratory failure, hypertension, chronic obstructive pulmonary disease, improving acute kidney injury MORBID OBESITY Severe malnutrition Plan ICU monitoring Vent weaning Trach care continue TPN Continue SCDs Moore to bedside drainage Continue sedation with propofol and fentanyl and Precedex Trend labs Home meds DVT prophylaxis Full code Prognosis extremely guarded he remains critically ill Appreciate subspecialist input CC time 32-minute Comment Review of Relevant I have reviewed the following items neela (where applicable) has been applied. Medications: Current Medications Medications (Trade) Dose Ordered Sig/Lorraine Route PRN Reason Start Time Stop Time Status Last Admin Dose Admin Potassium Acetate 50 meq/Potassium Phosphate 13.6 mmol/Magnesium Sulfate 8 meq/ Calcium Gluconate 5 meq/ Multivitamins 5 ml/Zinc/Copper/ Manganese/ Selenium 1 ml/ Total Parenteral Nutrition/Amino Acids/Dextrose 2,040 ml @ 85 mls/hr TPN CONT IV 02/27/21 22:00 02/28/21 21:59 02/27/21 21:01 Justifications for Admission Other Justification JUSTIN LLOYD III DO Feb 28, 2021 11:44
[2021-02-28] MEDS: TPN PER PHARMACY MC PRN (13:16)
--- NOTE | 2021-02-28 15:50 | NUR ---
SS following up with discharge planning. SS reviewed pt chart and discussed with RN. Pt is currently on the vent at 45%. COVID19 negative. Pt on TPN, IV Zyvox, and IV Zosyn. Pt on Fentanyl, Propofol, and Precedex. Trach in place. Self pay. Medicaid pending. Med Assist following. Not stable. SS will continue to follow for discharge planning.
--- NOTE | 2021-02-28 19:31 | PDOC ---
PROGRESS NOTES Date of Service DATE: 02/28/21 TIME: 19:24 Assessment 1. Patient has had 6 CT scans through the course of this prolonged hospital stay. This most recent CT scan revealed evidence of a new moderate size stroke of frontal lobe. This is the first time of stroke as been apparent on the CT scan in this region. This worsens prognosis as he is experiencing bilateral cerebral insults. As result of the stroke he will likely have aphasia and right hemiparesis. As result of the hemorrhagic stroke he will likely have left hemiparesis, left hemisensory loss. 2. He had a significant right hemispheric hemorrhage which required surgical evacuation. The serial CT scans of the head have revealed typical evolution of the hemorrhage. There has not been evidence for new bleed. 3. Respiratory failure for which she has had a trach. He is currently on pressure support. He is requiring heavy sedation has anytime the sedation is lifted he becomes agitated and fights the ventilator. Plan If not already involved I would suggest palliative care. I do not see the patient having the ability to survive outside of an extended care facility such as an LTAC. Subjective Nonverbal. Breathing through trach and heavily sedated. Objective Vital Signs Date Time Temp Pulse Resp B/P (MAP) Pulse Ox O2 Delivery O2 Flow Rate FiO2 02/28/21 18:00 58 15 149/75 (99) 100 Ventilator 02/28/21 16:00 99.2 99.2 Intake and Output 02/28/21 07:00 Intake Total 3505.5 ml Output Total 3475 ml Balance 30.5 ml IV Total 3505.5 ml Output Urine Total 3175 ml Gastric Drainage Total 300 ml PHYSICAL EXAM His eyes were open but there was no focus. The eyes were disconjugate. He did not respond to visual threat or loud clap. Oculocephalic reflex was absent. Pupils poorly reactive to light. He did have a tendency to blink to light. Face was symmetric. He coughed to suctioning. Muscle bulk was symmetric. Tone was flaccid in the arms. Nailbed pressure did not provoke any response in any extremity. Tendon reflexes were present in the legs but not the arms. There was edema of all 4 extremities. He did not follow command. He did not look up or down to command. Review of Relevant I have reviewed the following items neela (where applicable) has been applied. Labs Laboratory Tests Test 02/26/21 23:38 7/26/21 05:00 02/27/21 05:14 02/27/21 08:00 Glucose (Fingerstick) 222 mg/dL (70-99) 213 mg/dL (70-99) Sodium Level 140 mmol/L (136-145) Potassium Level 3.9 mmol/L (3.5-5.1) Chloride Level 106 mmol/L (98-107) Carbon Dioxide Level 27 mmol/L (21-32) Anion Gap 7 (6-14) Blood Urea Nitrogen 17 mg/dL (8-26) Creatinine 0.8 mg/dL (0.7-1.3) Estimated GFR (Cockcroft-Gault) 119.3 Glucose Level 207 mg/dL (70-99) Calcium Level 8.8 mg/dL (8.5-10.1) Phosphorus Level 4.4 mg/dL (2.6-4.7) Magnesium Level 2.1 mg/dL (1.8-2.4) O2 Saturation 96 % (92-99) Arterial Blood pH 7.37 (7.35-7.45) Arterial Blood pCO2 at Patient Temp 40 mmHg (35-46) Arterial Blood pO2 at Patient Temp 90 mmHg (65-108) Arterial Blood HCO3 23 mmol/L (21-28) Arterial Blood Base Excess -2 mmol/L (-3-3) FiO2 45 Test 02/27/21 11:55 02/27/21 18:39 02/27/21 23:20 02/28/21 05:11 Glucose (Fingerstick) 248 mg/dL (70-99) 245 mg/dL (70-99) 244 mg/dL (70-99) 227 mg/dL (70-99) Test 02/28/21 05:15 02/28/21 08:00 02/28/21 11:21 02/28/21 17:17 Sodium Level 138 mmol/L (136-145) Potassium Level 4.1 mmol/L (3.5-5.1) Chloride Level 104 mmol/L (98-107) Carbon Dioxide Level 27 mmol/L (21-32) Anion Gap 7 (6-14) Blood Urea Nitrogen 14 mg/dL (8-26) Creatinine 0.8 mg/dL (0.7-1.3) Estimated GFR (Cockcroft-Gault) 119.3 BUN/Creatinine Ratio 18 (6-20) Glucose Level 208 mg/dL (70-99) Calcium Level 8.9 mg/dL (8.5-10.1) Total Bilirubin 0.5 mg/dL (0.2-1.0) Aspartate Amino Transf (AST/SGOT) 35 U/L (15-37) Alanine Aminotransferase (ALT/SGPT) 67 U/L (16-63) Alkaline Phosphatase 111 U/L (46-116) Total Protein 6.4 g/dL (6.4-8.2) Albumin 2.1 g/dL (3.4-5.0) Albumin/Globulin Ratio 0.5 (1.0-1.7) O2 Saturation 97 % (92-99) Arterial Blood pH 7.39 (7.35-7.45) Arterial Blood pCO2 at Patient Temp 37 mmHg (35-46) Arterial Blood pO2 at Patient Temp 100 mmHg (65-108) Arterial Blood HCO3 22 mmol/L (21-28) Arterial Blood Base Excess -3 mmol/L (-3-3) FiO2 45%+5 Glucose (Fingerstick) 223 mg/dL (70-99) 245 mg/dL (70-99) Laboratory Tests Test 02/27/21 23:20 02/28/21 05:11 02/28/21 05:15 02/28/21 08:00 Glucose (Fingerstick) 244 mg/dL (70-99) 227 mg/dL (70-99) Sodium Level 138 mmol/L (136-145) Potassium Level 4.1 mmol/L (3.5-5.1) Chloride Level 104 mmol/L (98-107) Carbon Dioxide Level 27 mmol/L (21-32) Anion Gap 7 (6-14) Blood Urea Nitrogen 14 mg/dL (8-26) Creatinine 0.8 mg/dL (0.7-1.3) Estimated GFR (Cockcroft-Gault) 119.3 BUN/Creatinine Ratio 18 (6-20) Glucose Level 208 mg/dL (70-99) Calcium Level 8.9 mg/dL (8.5-10.1) Total Bilirubin 0.5 mg/dL (0.2-1.0) Aspartate Amino Transf (AST/SGOT) 35 U/L (15-37) Alanine Aminotransferase (ALT/SGPT) 67 U/L (16-63) Alkaline Phosphatase 111 U/L (46-116) Total Protein 6.4 g/dL (6.4-8.2) Albumin 2.1 g/dL (3.4-5.0) Albumin/Globulin Ratio 0.5 (1.0-1.7) O2 Saturation 97 % (92-99) Arterial Blood pH 7.39 (7.35-7.45) Arterial Blood pCO2 at Patient Temp 37 mmHg (35-46) Arterial Blood pO2 at Patient Temp 100 mmHg (65-108) Arterial Blood HCO3 22 mmol/L (21-28) Arterial Blood Base Excess -3 mmol/L (-3-3) FiO2 45%+5 Test 02/28/21 11:21 02/28/21 17:17 Glucose (Fingerstick) 223 mg/dL (70-99) 245 mg/dL (70-99) Microbiology 02/23/21 Gram Stain - Final, Complete 02/23/21 Aerobic Culture - Final, Complete 02/22/21 Blood Culture - Final, Complete NO GROWTH AFTER 5 DAYS 02/22/21 Gram Stain Evaluation - Final, Complete 02/22/21 Respiratory Culture - Final, Complete Medications Current Medications Nicardipine HCl 50 mg/Sodium Chloride 250 ml @ 12.5 mls/hr CONT PRN IV SEE I/O RECORD Last administered on 02/26/21at 01:20; Start 02/09/21 at 06:15 Labetalol HCl (Normodyne Iv Push) 10 mg PRN Q2HR PRN IVP HYPERTENSION- 1ST CHOICE Last administered on 02/28/21at 11:12; Start 02/09/21 at 06:15 Lorazepam (Ativan Inj) 2 mg 1X ONCE IVP Last administered on 02/09/21at 10:54; Start 02/09/21 at 10:45; Stop 02/09/21 at 10:46; Status DC Lorazepam (Ativan Inj) 2 mg 1X ONCE IVP Last administered on 02/09/21at 11:00; Start 02/09/21 at 11:00; Stop 02/09/21 at 11:01; Status DC Fentanyl Citrate (Fentanyl 2ml Vial) 25 mcg PRN Q2HR PRN IVP MODERATE TO SEVERE PAIN Last administered on 02/09/21at 13:37; Start 02/09/21 at 13:30; Stop 02/18/21 at 22:53; Status DC Info (Review Meds) 1 ea PRN 1X PRN MC SEE COMMENTS; Start 02/09/21 at 15:00 Acetaminophen (Tylenol Supp) 650 mg PRN Q6HRS PRN OR FEVER > 100.5'F or 38'C; Start 02/09/21 at 15:00; Stop 02/11/21 at 21:12; Status DC Albuterol Sulfate (Ventolin Neb Soln) 2.5 mg PRN Q4HRS PRN NEB SHORTNESS OF BREATH; Start 02/09/21 at 15:15 Iohexol (Omnipaque 350 Mg/ml) 75 ml 1X ONCE IV Last administered on 02/09/21at 15:52; Start 02/09/21 at 15:30; Stop 02/09/21 at 15:35; Status DC Iohexol (Omnipaque 350 Mg/ml) 100 ml STK-MED ONCE .ROUTE ; Start 02/09/21 at 15:26; Stop 02/09/21 at 15:27; Status DC Info (CONTRAST GIVEN -- Rx MONITORING) 1 each PRN DAILY PRN MC SEE COMMENTS; Start 02/09/21 at 15:45; Stop 02/11/21 at 15:44; Status DC Propofol 100 ml @ As Directed STK-MED ONCE IV ; Start 02/09/21 at 15:51; Stop 02/09/21 at 15:51; Status DC Rocuronium [place] (Zemuron) 50 mg STK-MED ONCE .ROUTE ; Start 02/09/21 at 15:51; Stop 02/09/21 at 15:51; Status DC Lidocaine HCl (Lidocaine HCl 2% Abboject) 100 mg STK-MED ONCE .ROUTE ; Start 02/09/21 at 15:52; Stop 02/09/21 at 15:53; Status DC Propofol 100 ml @ 3.507 mls/ hr CONT PRN IV PER PROTOCOL Last administered on 02/28/21at 15:28; Start 02/09/21 at 16:15 Lidocaine HCl (Lidocaine HCl 2% Abboject) 100 mg 1X ONCE IV Last administered on 02/09/21at 16:17; Start 02/09/21 at 16:15; Stop 02/09/21 at 16:17; Status DC Rocuronium [place] (Zemuron) 50 mg 1X ONCE IV Last administered on 02/09/21 16:17; Start 02/09/21 at 16:15; Stop 02/09/21 at 16:17; Status DC Rocuronium [place] (Zemuron) 100 mg STK-MED ONCE .ROUTE ; Start 02/09/21 at 16:31; Stop 02/09/21 at 16:32; Status DC Gelatin (Gelfoam Size 100) 1 each STK-MED ONCE .ROUTE Last administered on 17:49; Start 02/09/21 at 16:33; Stop 02/09/21 at 16:33; Status DC Bupivacaine HCl/ Epinephrine Bitart (Sensorcain-Epi 0.5%-1:502614 Mpf) 30 ml STK-MED ONCE .ROUTE Last administered on 02/09/21 17:49; Start 02/09/21 at 16:33; Stop 02/09/21 at 16:33; Status DC Cellulose (Surgicel Hemostat 4x8) 1 each STK-MED ONCE .ROUTE Last administered on 02/09/21 18:38; Start 02/09/21 at 16:33; Stop 02/09/21 at 16:33; Status DC Thrombin 20,000 unit STK-MED ONCE TP Last administered on 02/09/21 17:49; Start 02/09/21 at 16:33; Stop 02/09/21 at 16:33; Status DC Fentanyl Citrate (Fentanyl 2ml Vial) 75 mcg 1X ONCE IVP Last administered on 02/09/21at 16:45; Start 02/09/21 at 16:45; Stop 02/09/21 at 16:47; Status DC Propofol (Diprivan) 200 mg 1X ONCE IV ; Start 02/09/21 at 17:15; Stop 02/09/21 at 17:16; Status DC Lidocaine HCl (Lidocaine HCl 2% Abboject) 100 mg 1X ONCE IV ; Start 02/09/21 at 17:15; Stop 02/09/21 at 17:16; Status DC Rocuronium [place] (Zemuron) 50 mg 1X ONCE IV ; Start 02/09/21 at 17:15; Stop 02/09/21 at 17:16; Status DC Propofol 100 ml @ 0 mls/hr CONT PRN PRN IV SEDATION; Start 02/09/21 at 17:15; Stop 02/10/21 at 05:14; Status DC Cefazolin Sodium (Ancef) 1 gm STK-MED ONCE IVP ; Start 02/09/21 at 17:28; Stop 02/09/21 at 17:28; Status DC Fentanyl Citrate (Fentanyl 2ml Vial) 100 mcg STK-MED ONCE .ROUTE ; Start 02/09/21 at 17:43; Stop 02/09/21 at 17:43; Status DC Rocuronium [place] (Zemuron) 100 mg STK-MED ONCE .ROUTE ; Start 02/09/21 at 17:58; Stop 02/09/21 at 17:59; Status DC Vecuronium [place] (Norcuron Bolus) 10 mg STK-MED ONCE IV ; Start 02/09/21 at 18:49; Stop 02/09/21 at 18:50; Status DC Sodium Chloride (SODIUM CHLORIDE 20ml) 20 ml STK-MED ONCE IJ ; Start 02/09/21 at 18:50; Stop 02/09/21 at 18:50; Status DC Sevoflurane (Ultane) 90 ml STK-MED ONCE IH ; Start 02/09/21 at 19:20; Stop 02/09/21 at 19:21; Status DC Fentanyl Citrate 30 ml @ 2.5 mls/hr CONT PRN IV SEE PROTOCOL Last administered on 02/09/21at 23:40; Start 02/09/21 at 23:15; Stop 02/10/21 at 04:43; Status DC Fentanyl Citrate 55 ml @ 0 mls/hr CONT PRN IV SEE I/O Last administered on 02/27/21at 08:52; Start 02/10/21 at 05:00 Potassium Chloride/Dextrose/ Sod Cl 1,000 ml @ 80 mls/hr [id number] IV ; Start 02/10/21 at 09:00; Stop 02/10/21 at 13:21; Status DC Pantoprazole Sodium (PROTONIX VIAL for IV PUSH) 40 mg DAILYAC IVP Last administered on 02/28/21at 08:46; Start 02/10/21 at 09:00 Lidocaine HCl (Buffered Lidocaine 1%) 3 ml STK-MED ONCE .ROUTE ; Start 02/10/21 at 13:18; Stop 02/10/21 at 13:18; Status DC Sodium Chloride 1,000 ml @ 80 mls/hr [id number] IV Last administered on 02/12/21at 03:00; Start 02/10/21 at 13:30; Stop 02/12/21 at 15:36; Status DC Lidocaine HCl (Buffered Lidocaine 1%) 6 ml 1X ONCE INJ Last administered on 02/10/21at 13:57; Start 02/10/21 at 13:45; Stop 02/10/21 at 13:46; Status DC Potassium Chloride/Water 100 ml @ 100 mls/hr Q1H IV Last administered on 02/11/21at 10:07; Start 02/11/21 at 08:00; Stop 02/11/21 at 09:59; Status DC Piperacillin Sod/ Tazobactam Sod 3.375 gm/Sodium Chloride 50 ml @ 100 mls/hr Q6HRS IV Last administered on 02/28/21at 17:19; Start 02/11/21 at 09:00 Info (Tpn Per Pharmacy) 1 each PRN DAILY PRN MC SEE COMMENTS Last administered on 02/28/21at 13:16; Start 02/11/21 at 11:15 Sodium Chloride 90 meq/Potassium Chloride 50 meq/ Potassium Phosphate 13.6 mmol/Magnesium Sulfate 10 meq/ Calcium Gluconate 10 meq/ Multivitamins 5 ml/Zinc/Copper/ Manganese/ Selenium 1 ml/ Total Parenteral Nutrition/Amino Acids/Dextrose 1,512 ml @ 63 mls/hr TPN CONT IV Last administered on 02/11/21at 22:32; Start 02/11/21 at 22:00; Stop 02/12/21 at 21:59; Status DC Furosemide (Lasix) 20 mg 1X ONCE IVP Last administered on 02/11/21at 15:11; Start 02/11/21 at 15:30; Stop 02/11/21 at 15:31; Status DC Furosemide (Lasix) 20 mg 1X ONCE IVP Last administered on 02/11/21at 17:00; Start 02/11/21 at 17:00; Stop 02/11/21 at 17:01; Status DC Midazolam HCl 100 ml @ 1 mls/hr CONT PRN IV SEE PROTOCOL Last administered on 02/13/21at 20:58; Start 02/11/21 at 19:30 Acetaminophen (Tylenol Supp) 650 mg PRN Q6HRS PRN OR MILD PAIN / TEMP > 100.3'F; Start 02/11/21 at 21:15 Sodium Chloride 80 meq/Potassium Chloride 50 meq/ Potassium Phosphate 13.6 mmol/Magnesium Sulfate 6 meq/ Calcium Gluconate 10 meq/ Multivitamins 5 ml/Zinc/Copper/ Manganese/ Selenium 1 ml/ Total Parenteral Nutrition/Amino Acids/Dextrose 1,512 ml @ 63 mls/hr TPN CONT IV Last administered on 02/12/21at 22:09; Start 02/12/21 at 22:00; Stop 02/13/21 at 21:59; Status DC Furosemide (Lasix) 40 mg 1X ONCE IVP Last administered on 02/12/21at 12:44; Start 02/12/21 at 12:30; Stop 02/12/21 at 12:31; Status DC Insulin Human Lispro (HumaLOG) 0-5 UNITS Q6HRS SQ Last administered on 02/28/21at 05:13; Start 02/12/21 at 12:00 Dextrose (Dextrose 50%-Water Syringe) 12.5 gm PRN Q15MIN PRN IV SEE COMMENTS; Start 02/12/21 at 12:15 Clonidine HCl (Catapres Tts-3) 1 patch WEEKLY TD Last administered on 02/27/21at 09:06; Start 02/13/21 at 11:00 Sodium Chloride 80 meq/Potassium Chloride 50 meq/ Potassium Phosphate 13.6 mmol/Magnesium Sulfate 6 meq/ Calcium Gluconate 10 meq/ Multivitamins 5 ml/Zinc/Copper/ Manganese/ Selenium 1 ml/ Total Parenteral Nutrition/Amino Acids/Dextrose 1,512 ml @ 63 mls/hr TPN CONT IV Last administered on 02/13/21at 21:42; Start 02/13/21 at 22:00; Stop 02/14/21 at 21:59; Status DC Potassium Acetate 50 meq/Potassium Phosphate 13.6 mmol/Magnesium Sulfate 6 meq/ Calcium Gluconate 10 meq/ Multivitamins 5 ml/Zinc/Copper/ Manganese/ Selenium 1 ml/ Total Parenteral Nutrition/Amino Acids/Dextrose 1,512 ml @ 63 mls/hr TPN CONT IV Last administered on 02/14/21at 21:59; Start 02/14/21 at 22:00; Stop 02/15/21 at 21:59; Status DC Insulin Glargine (Lantus Syringe) 10 unit QHS SQ Last administered on 02/15/21at 22:11; Start 02/14/21 at 21:00; Stop 02/16/21 at 12:42; Status DC Hydralazine HCl (Apresoline Inj) 10 mg PRN Q4HRS PRN IVP ELEVATED BP, SEE COMMENTS Last administered on 02/26/21at 01:56; Start 02/14/21 at 16:00 Potassium Acetate 50 meq/Potassium Phosphate 13.6 mmol/Magnesium Sulfate 6 meq/ Calcium Gluconate 10 meq/ Multivitamins 5 ml/Zinc/Copper/ Manganese/ Selenium 1 ml/ Total Parenteral Nutrition/Amino Acids/Dextrose 1,512 ml @ 63 mls/hr TPN CONT IV Last administered on 02/15/21at 22:13; Start 02/15/21 at 22:00; Stop 02/16/21 at 21:59; Status DC Dexmedetomidine HCl 400 mcg/ Sodium Chloride 100 ml @ 0 mls/hr CONT PRN IV PER PROTOCOL Last administered on 02/28/21at 18:31; Start 02/15/21 at 14:15 Sodium Chloride 500 ml @ 500 mls/hr 1X PRN PRN IV SEE COMMENTS; Start 02/15/21 at 14:15 Atropine Sulfate (ATROPINE 0.5mg SYRINGE) 0.5 mg PRN Q5MIN PRN IV SEE COMMENTS; Start 02/15/21 at 14:15 Potassium Acetate 50 meq/Potassium Phosphate 13.6 mmol/Magnesium Sulfate 6 meq/ Calcium Gluconate 10 meq/ Multivitamins 5 ml/Zinc/Copper/ Manganese/ Selenium 1 ml/ Total Parenteral Nutrition/Amino Acids/Dextrose 1,512 ml @ 63 mls/hr TPN CONT IV Last administered on 02/16/21at 22:59; Start 02/16/21 at 22:00; Stop 02/17/21 at 21:59; Status DC Insulin Glargine (Lantus Syringe) 14 unit QHS SQ Last administered on 02/16/21at 21:14; Start 02/16/21 at 21:00; Stop 02/17/21 at 14:15; Status DC Potassium Acetate 50 meq/Potassium Phosphate 13.6 mmol/Magnesium Sulfate 6 meq/ Calcium Gluconate 10 meq/ Multivitamins 5 ml/Zinc/Copper/ Manganese/ Selenium 1 ml/ Total Parenteral Nutrition/Amino Acids/Dextrose 1,512 ml @ 63 mls/hr TPN CONT IV Last administered on 02/17/21at 20:48; Start 02/17/21 at 22:00; Stop 02/18/21 at 21:59; Status DC Dextrose 1,000 ml @ 75 mls/hr [id number] IV Last administered on 02/18/21at 13:51; Start 02/17/21 at 10:30; Stop 02/19/21 at 12:57; Status DC Insulin Glargine (Lantus Syringe) 18 unit QHS SQ Last administered on 02/17/21at 20:46; Start 02/17/21 at 21:00; Stop 02/18/21 at 11:56; Status DC Insulin Glargine (Lantus Syringe) 22 unit QHS SQ Last administered on 02/18/21at 21:00; Start 02/18/21 at 21:00; Stop 02/19/21 at 14:08; Status DC Potassium Acetate 50 meq/Potassium Phosphate 13.6 mmol/Magnesium Sulfate 6 meq/ Calcium Gluconate 10 meq/ Multivitamins 5 ml/Zinc/Copper/ Manganese/ Selenium 1 ml/ Total Parenteral Nutrition/Amino Acids/Dextrose 1,512 ml @ 63 mls/hr TPN CONT IV Last administered on 02/18/21at 21:43; Start 02/18/21 at 22:00; Stop 02/19/21 at 21:59; Status DC Potassium Acetate 50 meq/Potassium Phosphate 13.6 mmol/Magnesium Sulfate 6 meq/ Calcium Gluconate 10 meq/ Multivitamins 5 ml/Zinc/Copper/ Manganese/ Selenium 1 ml/ Total Parenteral Nutrition/Amino Acids/Dextrose 2,040 ml @ 85 mls/hr TPN CONT IV Last administered on 02/19/21at 20:56; Start 02/19/21 at 22:00; Stop 02/20/21 at 21:59; Status DC Insulin Glargine (Lantus Syringe) 25 unit QHS SQ Last administered on 02/20/21at 22:11; Start 02/19/21 at 21:00; Stop 02/21/21 at 10:10; Status DC Acetaminophen (Tylenol) 650 mg PRN Q6HRS PRN PEG MILD PAIN / TEMP > 100.3'F Last administered on 02/22/21at 08:10; Start 02/19/21 at 18:00 Potassium Acetate 50 meq/Potassium Phosphate 13.6 mmol/Magnesium Sulfate 6 meq/ Calcium Gluconate 10 meq/ Multivitamins 5 ml/Zinc/Copper/ Manganese/ Selenium 1 ml/ Total Parenteral Nutrition/Amino Acids/Dextrose 2,040 ml @ 85 mls/hr TPN CONT IV Last administered on 02/20/21at 22:10; Start 02/20/21 at 22:00; Stop 02/21/21 at 21:59; Status DC Insulin Glargine (Lantus Syringe) 27 unit QHS SQ Last administered on 02/27/21at 21:01; Start 02/21/21 at 21:00 Magnesium Sulfate 50 ml @ 25 mls/hr 1X ONCE IV Last administered on 02/21/21at 11:30; Start 02/21/21 at 11:00; Stop 02/21/21 at 12:59; Status DC Potassium Acetate 50 meq/Potassium Phosphate 13.6 mmol/Magnesium Sulfate 8 meq/ Calcium Gluconate 10 meq/ Multivitamins 5 ml/Zinc/Copper/ Manganese/ Selenium 1 ml/ Total Parenteral Nutrition/Amino Acids/Dextrose 2,040 ml @ 85 mls/hr TPN C ONT IV Last administered on 02/21/21at 21:23; Start 02/21/21 at 22:00; Stop 02/22/21 at 21:59; Status DC Daptomycin 570 mg/ Sodium Chloride 50 ml @ 100 mls/hr Q24H IV Last administered on 02/24/21at 13:10; Start 02/22/21 at 12:00; Stop 02/25/21 at 10:34; Status DC Linezolid/Dextrose 300 ml @ 300 mls/hr Q12HR IV Last administered on 02/28/21at 08:46; Start 02/22/21 at 09:00 Potassium Acetate 50 meq/Potassium Phosphate 13.6 mmol/Magnesium Sulfate 8 meq/ Calcium Gluconate 5 meq/ Multivitamins 5 ml/Zinc/Copper/ Manganese/ Selenium 1 ml/ Total Parenteral Nutrition/Amino Acids/Dextrose 2,040 ml @ 85 mls/hr TPN CONT IV Last administered on 02/22/21at 21:32; Start 02/22/21 at 22:00; Stop 02/23/21 at 21:59; Status DC Fentanyl Citrate (Fentanyl 2ml Vial) 25 mcg PRN Q5MIN PRN IVP MILD PAIN 1-3; Start 02/23/21 at 06:00; Stop 02/24/21 at 05:59; Status DC Fentanyl Citrate (Fentanyl 2ml Vial) 50 mcg PRN Q5MIN PRN IVP MODERATE PAIN 4- 6; Start 02/23/21 at 06:00; Stop 02/24/21 at 05:59; Status DC Morphine Sulfate (Morphine Sulfate) 1 mg PRN Q10MIN PRN IVP SEVERE PAIN 7-10; Start 02/23/21 at 06:00; Stop 02/24/21 at 05:59; Status DC Ringer's Solution 1,000 ml @ 30 mls/hr Q24H IV Last administered on 02/23/21at 11:00; Start 02/23/21 at 06:00; Stop 02/23/21 at 17:59; Status DC Hydromorphone HCl (Dilaudid) 0.5 mg PRN Q10MIN PRN IVP SEVERE PAIN 7-10, 2nd CHOICE; Start 02/23/21 at 06:00; Stop 02/24/21 at 05:59; Status DC Prochlorperazine Edisylate (Compazine) 5 mg PACU PRN PRN IVP NAUSEA, MRX1; Start 02/23/21 at 06:00; Stop 02/24/21 at 05:59; Status DC Cellulose (Surgicel Fibrillar 1x2) 1 each STK-MED ONCE .ROUTE ; Start 02/23/21 at 08:23; Stop 02/23/21 at 08:23; Status DC Lidocaine/ Epinephrine (LIDOCAINE 1%-EPI 1:100,000 Multi-Dose) 20 ml STK-MED ONCE .ROUTE Last administered on 02/23/21at 13:33; Start 02/23/21 at 08:23; Stop 02/23/21 at 08:23; Status DC Potassium Acetate 50 meq/Potassium Phosphate 13.6 mmol/Magnesium Sulfate 8 meq/ Calcium Gluconate 5 meq/ Multivitamins 5 ml/Zinc/Copper/ Manganese/ Selenium 1 ml/ Total Parenteral Nutrition/Amino Acids/Dextrose 2,040 ml @ 85 mls/hr TPN CONT IV ; Start 02/23/21 at 22:00; Stop 02/24/21 at 21:59; Status DC Rocuronium [place] (Zemuron) 50 mg STK-MED ONCE .ROUTE ; Start 02/23/21 at 12:13; Stop 02/23/21 at 12:13; Status DC Fentanyl Citrate (Fentanyl 2ml Vial) 100 mcg STK-MED ONCE .ROUTE ; Start 02/23/21 at 12:24; Stop 02/23/21 at 12:24; Status DC Insulin Human Lispro (HumaLOG VIAL for OP,RR ONLY) 0-10 units PRN Q1HR PRN SQ PER PROTOCOL Last administered on 02/23/21at 13:00; Start 02/23/21 at 13:15; Stop 02/24/21 at 13:14; Status DC Rocuronium [place] (Zemuron) 100 mg STK-MED ONCE .ROUTE ; Start 02/23/21 at 13:22; Stop 02/23/21 at 13:23; Status DC Albuterol Sulfate (Ventolin Hfa) 60 puff STK-MED ONCE INH ; Start 02/23/21 at 13:47; Stop 02/23/21 at 13:48; Status DC Sevoflurane (Ultane) 60 ml STK-MED ONCE IH ; Start 02/23/21 at 14:21; Stop 02/03 09/25 at 14:21; Status DC Potassium Acetate 50 meq/Potassium Phosphate 13.6 mmol/Magnesium Sulfate 8 meq/ Calcium Gluconate 5 meq/ Multivitamins 5 ml/Zinc/Copper/ Manganese/ Selenium 1 ml/ Total Parenteral Nutrition/Amino Acids/Dextrose 2,040 ml @ 85 mls/hr TPN CONT IV ; Start 02/25/21 at 22:00; Stop 02/26/21 at 21:59; Status DC Potassium Acetate 50 meq/Potassium Phosphate 13.6 mmol/Magnesium Sulfate 8 meq/ Calcium Gluconate 5 meq/ Multivitamins 5 ml/Zinc/Copper/ Manganese/ Selenium 1 ml/ Total Parenteral Nutrition/Amino Acids/Dextrose 2,040 ml @ 85 mls/hr TPN CONT IV Last administered on 02/26/21at 21:27; Start 02/26/21 at 22:00; Stop 02/27/21 at 21:59; Status DC Potassium Acetate 50 meq/Potassium Phosphate 13.6 mmol/Magnesium Sulfate 8 meq/ Calcium Gluconate 5 meq/ Multivitamins 5 ml/Zinc/Copper/ Manganese/ Selenium 1 ml/ Total Parenteral Nutrition/Amino Acids/Dextrose 2,040 ml @ 85 mls/hr TPN CONT IV Last administered on 02/27/21at 21:01; Start 02/27/21 at 22:00; Stop 02/28/21 at 21:59 Potassium Acetate 50 meq/Potassium Phosphate 13.6 mmol/Magnesium Sulfate 8 meq/ Calcium Gluconate 5 meq/ Multivitamins 5 ml/Zinc/Copper/ Manganese/ Selenium 1 ml/ Total Parenteral Nutrition/Amino Acids/Dextrose 2,040 ml @ 85 mls/hr TPN CONT IV ; Start 02/28/21 at 22:00; Stop 03/01/21 at 21:59 Vitals/I & O Vital Sign - Last 24 Hours 02/27/21 02/27/21 02/27/21 02/27/21 19:30 20:00 20:00 21:00 Temp 98.6 98.6 Pulse 54 59 Resp 16 16 B/P (MAP) 153/85 (107) 169/88 (115) Pulse Ox 100 100 100 O2 Delivery Mechanical Ventilator Ventilator Ventilator Ventilator 02/27/21 02/27/21 02/27/21 02/28/21 22:00 23:00 23:00 00:00 Pulse 64 59 Resp 16 16 B/P (MAP) 140/71 (94) 153/81 (105) Pulse Ox 100 100 100 O2 Delivery Ventilator Ventilator Ventilator Mechanical Ventilator 02/28/21 02/28/21 02/28/21 02/28/21 00:01 01:00 02:00 03:00 Temp 99.5 99.5 Pulse 60 59 64 62 Resp 16 16 16 16 B/P (MAP) 154/78 (103) 152/79 (103) 153/78 (103) 137/77 (97) Pulse Ox 100 100 100 100 O2 Delivery Ventilator Ventilator Ventilator Ventilator 02/28/21 02/28/21 02/28/21 02/28/21 03:30 04:00 04:30 05:00 Temp 99.4 99.4 Pulse 59 58 Resp 16 16 B/P (MAP) 159/74 (102) 164/89 (114) Pulse Ox 100 100 100 O2 Delivery Mechanical Ventilator Ventilator Ventilator Ventilator 02/28/21 02/28/21 02/28/21 02/28/21 06:00 07:00 07:45 08:00 Temp 99.6 99.6 Pulse 59 61 58 Resp 16 16 16 B/P (MAP) 165/88 (113) 146/82 (103) 161/88 (112) Pulse Ox 100 100 100 100 O2 Delivery Ventilator Ventilator Ventilator Ventilator 02/28/21 02/28/21 02/28/21 02/28/21 08:00 09:00 10:00 11:00 Pulse 57 55 57 Resp 16 16 16 B/P (MAP) 154/87 (109) 172/94 (120) 166/91 (116) Pulse Ox 100 100 100 O2 Delivery Mechanical Ventilator Ventilator Ventilator Ventilator 02/28/21 02/28/21 02/28/21 02/28/21 11:12 11:35 11:45 12:00 Temp 99.7 99.7 Pulse 57 59 Resp 16 B/P (MAP) 166/91 176/90 (118) Pulse Ox 100 100 O2 Delivery Ventilator Ventilator Ventilator 02/28/21 02/28/21 02/28/21 02/28/21 12:00 13:00 13:23 14:00 Pulse 58 61 Resp 16 16 B/P (MAP) 166/85 (112) 150/84 (106) Pulse Ox 100 100 100 O2 Delivery Mechanical Ventilator Ventilator Ventilator Ventilator 02/28/21 02/28/21 02/28/21 02/28/21 15:00 15:45 16:00 16:00 Temp 99.2 99.2 Pulse 57 59 Resp 16 16 B/P (MAP) 163/89 (113) 159/85 (109) Pulse Ox 100 100 100 O2 Delivery Ventilator Ventilator Ventilator Mechanical Ventilator 02/28/21 02/28/21 02/28/21 17:00 17:33 18:00 Pulse 61 58 Resp 16 15 B/P (MAP) 159/85 (109) 149/75 (99) Pulse Ox 100 100 100 O2 Delivery Ventilator Ventilator Ventilator Intake and Output 02/27/21 02/27/21 02/28/21 15:00 23:00 07:00 Intake Total 2012.8 ml 1492.7 ml Output Total 985 ml 1340 ml 1150 ml Balance -985 ml 672.8 ml 342.7 ml Justicifation of Admission Dx: Justifications for Admission: Justification of Admission Dx: Yes Acute Hemorrhagic Stroke: Acute Hemorrhagic Stroke SYLVIA MARS MD Feb 28, 2021 19:31
[2021-02-28] MEDS: INSULIN GLARGINE SYRINGE. SQ SCH (21:39)
[2021-02-28] MEDS ORDERED: DEXTROSE 70% IV SCH (22:00)
[2021-02-28] MEDS ORDERED: AMINO ACID IV SCH (22:00)
[2021-02-28] MEDS ORDERED: [UNRECOGNIZED DRUG - OTHER] IV SCH (22:00)
[2021-02-28] MEDS ORDERED: TOTAL PARENTERAL NUTRITION IV SCH (22:00)
[2021-03-01] VITALS (24 sets, daily range): BP systolic 131–189; BP diastolic 61–106
[2021-03-01] MEDS: INSULIN LISPRO 300 UNITS/3 ML VIAL. SQ SCH ×4 (06:00→18:00)
[2021-03-01] MEDS: PIPERACILLIN/TAZOBACTAM 3.375 GM in IV NORMAL SALINE 50ML 50 ML IV SCH ×4 (06:00→18:24)
--- NOTE | 2021-03-01 07:48 | PDOC ---
Infectious Disease Note Subjective: Subjective Pt remains intubated ,sedated T max 99.6 Condition remains unchanged overall Discussed with nursing staff Vital Signs: Vital Signs Vital Signs Date Time Temp Pulse Resp B/P (MAP) Pulse Ox O2 Delivery O2 Flow Rate FiO2 03/01/21 07:38 100 Ventilator 03/01/21 07:00 62 14 137/77 (97) 03/01/21 04:00 98.7 98.7 Physical Exam: PHYSICAL EXAM GENERAL: Sedated on vent, patient is not following commands HEENT: no icterus,OGT + NECK trach present LUNGS: Decreased breath sound at bases HEART: S1, S2 bradycardia ABDOMEN: Soft, nontender, mildly distended EXTREMITIES: + edema, no cyanosis. SKIN:no gen rash NEUROLOGIC: unable to assess Right IJ taken out RT PICC Line clean Medications: Inpatient Meds: Medications reviewed. Labs: Lab Laboratory Tests Test 02/28/21 08:00 02/28/21 11:21 02/28/21 17:17 02/28/21 21:37 O2 Saturation 97 % (92-99) Arterial Blood pH 7.39 (7.35-7.45) Arterial Blood pCO2 at Patient Temp 37 mmHg (35-46) Arterial Blood pO2 at Patient Temp 100 mmHg (65-108) Arterial Blood HCO3 22 mmol/L (21-28) Arterial Blood Base Excess -3 mmol/L (-3-3) FiO2 45%+5 Glucose (Fingerstick) 223 mg/dL (70-99) 245 mg/dL (70-99) 244 mg/dL (70-99) Test 03/01/21 00:14 03/01/21 05:40 Glucose (Fingerstick) 245 mg/dL (70-99) 214 mg/dL (70-99) Objective: Assessment: 1. Fever.resolved,cult neg 2. Acute hypoxic respiratory failure status post intubation suspected aspiration.sputum cultures NRF 3. Intracranial bleed with mass effect, status post craniotomy and hematoma evacuation. Repeat CT head noted 4. Encephalopathy, 5. Respiratory failure. 6. Hypertension. 7. Chronic obstructive pulmonary disease. 8. MARVIN improved U/S BUE to neg for DVT Plan: Plan of Care cont Zosyn/Zyvox Pancultures negative Monitor labs and cults cont supportive care Neurology and neurosurgery following Prognosis guarded Discussed with nursing staff RAMU DELGADO MD Mar 01, 2021 07:48
[2021-03-01] MEDS: PANTOPRAZOLE IV PUSH 40 MG VIAL. IVP SCH (08:09)
[2021-03-01] MEDS: PROPOFOL 100 ML IV PRN ×4 (08:10→22:26)
[2021-03-01] MEDS: fentaNYL HIGH DOSE PCA 55 ML IV PRN (08:14)
--- NOTE | 2021-03-01 09:04 | PDOC ---
PULMONARY PROGRESS NOTES DATE: 03/01/21 TIME: 09:04 Subjective Patient currently on assist control, sedated. Status post tracheostomy on 02/23 Vitals Vital Signs Date Time Temp Pulse Resp B/P (MAP) Pulse Ox O2 Delivery O2 Flow Rate FiO2 03/01/21 08:14 100 03/01/21 08:00 98.7 54 11 131/76 (94) Ventilator 98.7 Comments ros unable to obtain intubated on vent Lungs: Clear Cardiovascular: S1, S2 Abdomen: Soft, Non-tender Extremities: No Edema Skin: Warm Labs Laboratory Tests Test 02/27/21 11:55 02/27/21 18:39 02/27/21 23:20 02/28/21 05:11 Glucose (Fingerstick) 248 mg/dL (70-99) 245 mg/dL (70-99) 244 mg/dL (70-99) 227 mg/dL (70-99) Test 02/28/21 05:15 02/28/21 08:00 02/28/21 11:21 02/28/21 17:17 Sodium Level 138 mmol/L (136-145) Potassium Level 4.1 mmol/L (3.5-5.1) Chloride Level 104 mmol/L (98-107) Carbon Dioxide Level 27 mmol/L (21-32) Anion Gap 7 (6-14) Blood Urea Nitrogen 14 mg/dL (8-26) Creatinine 0.8 mg/dL (0.7-1.3) Estimated GFR (Cockcroft-Gault) 119.3 BUN/Creatinine Ratio 18 (6-20) Glucose Level 208 mg/dL (70-99) Calcium Level 8.9 mg/dL (8.5-10.1) Total Bilirubin 0.5 mg/dL (0.2-1.0) Aspartate Amino Transf (AST/SGOT) 35 U/L (15-37) Alanine Aminotransferase (ALT/SGPT) 67 U/L (16-63) Alkaline Phosphatase 111 U/L (46-116) Total Protein 6.4 g/dL (6.4-8.2) Albumin 2.1 g/dL (3.4-5.0) Albumin/Globulin Ratio 0.5 (1.0-1.7) O2 Saturation 97 % (92-99) Arterial Blood pH 7.39 (7.35-7.45) Arterial Blood pCO2 at Patient Temp 37 mmHg (35-46) Arterial Blood pO2 at Patient Temp 100 mmHg (65-108) Arterial Blood HCO3 22 mmol/L (21-28) Arterial Blood Base Excess -3 mmol/L (-3-3) FiO2 45%+5 Glucose (Fingerstick) 223 mg/dL (70-99) 245 mg/dL (70-99) Test 02/28/21 21:37 03/01/21 00:14 03/01/21 05:40 Glucose (Fingerstick) 244 mg/dL (70-99) 245 mg/dL (70-99) 214 mg/dL (70-99) Laboratory Tests Test 02/28/21 11:21 02/28/21 17:17 02/28/21 21:37 03/01/21 00:14 Glucose (Fingerstick) 223 mg/dL (70-99) 245 mg/dL (70-99) 244 mg/dL (70-99) 245 mg/dL (70-99) Test 03/01/21 05:40 Glucose (Fingerstick) 214 mg/dL (70-99) Comments CXR 02/21/21 IMPRESSION: 1. Stable life support devices. 2. Improving bibasilar opacities.. CXR 02/18/21 IMPRESSION: Unchanged bibasilar opacities. Recommend follow-up to ensure resolution, particularly of focal opacities in the right lung base. CXR 02/17/21 IMPRESSION: 1. Stable life support devices. 2. Stable bibasilar opacities. 3. Stable small left pleural effusion. IMPRESSION: Chest x-ray 02/13 1. Stable support lines and tubes. 2. Severe right upper lobe predominant bullous emphysema. 3. Stable right perihilar linear atelectasis or infiltrate superimposed on diffuse interstitial prominence and small pleural effusions. Impression . IMPRESSION: 1. Acute hypoxic respiratory failure multifactorial, predominantly to intraparenchymal cerebral hematoma. Status post tracheostomy 02/23 2. Abnormal x-ray 3. Long history of tobaccoism. CT angiogram showed bullous emphysema in the upper lobes. 3. Acute kidney injury--resolved 4. Leukocytosis--resolved 5. s/p Right occipital craniotomy with evacuation of intracerebral hematoma. 02/09/21 6. Encephalopathy, multifactorial--ongoing 7. Uncontrolled hypertension 8. Fever, per ID 9. Status post tracheotomy 02/23 CT head 02/13, IMPRESSION: 1. Expected interval evolution of a right posterior temporal/occipital intraparenchymal hematoma status post decompressive craniotomy. 2. Expected evolution of a small amount of subarachnoid and intraventricular clot. DATE OF SURGERY: 02/09/2021 PREOPERATIVE DIAGNOSIS: Right posterior temporoparietal occipital intracerebral hemorrhage with neurologic deterioration. POSTOPERATIVE DIAGNOSIS: Right posterior temporoparietal occipital intracerebral hemorrhage with neurologic deterioration. OPERATION PERFORMED: Right occipital craniotomy with evacuation of intracerebral hematoma. Plan . Updated 03/01 Continue current support Antibiotics per ID Patient does not do well off of sedation DVT GI prophylaxis Updated 02/28 Discussed with RN and RT Decrease sedation Pressure support throughout the day as tolerated Antibiotics per ID DVT GI prophylaxis Updated 02/27/21 Continue current vent support A/C mode rate of 16 at 40%. Status post tracheostomy 02/23 Follow ABG/CXR--make changes to based on ABGs. Follow ID recs for ABX on zosyn Follow Cardiology recs Follow neurosurgery recs-- S/P Right occipital craniotomy with evacuation of intracerebral hematoma--02/09/21 TPN for nutritional support Hyperglycemia per PCP DVT/GI PPX D/W RN and RT Awaiting insurance coverage before transfer to long-term acute care facility Will need PEG tube MANJULA PADILLA MD Mar 01, 2021 09:04
--- NOTE | 2021-03-01 11:18 | PDOC ---
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 Status post craniotomy 02/09/2021 Obesity Aspiration Hypertension COPD Acute kidney injury Severe malnutrition History of Present Illness History of Present Illness 03/01/2021 Patient seen and examined in the ICU He remains mechanically ventilated AC/16/500/40 5% with 5 of PEEP trach appears clean dry and intact He is a Moore bedside drainage Sedated with fentanyl and propofol Has TPN hanging Discussed with RN Discussed with case management Chart reviewed He remains very critically ill 02/28/2021 Patient seen and examined in the ICU He remains mechanically ventilated Has a tracheostomy in place Vent settings as follows AC/16/500/45/5 of PEEP Has SCDs in place Moore is to bedside drainage Sedated with Precedex fentanyl and propofol Has IV TPN Chart reviewed Discussed with RN He remains critically 02/27/2021 Patient seen and examined in the ICU He remains mechanically ventilated AC/16/500/40 5% with 5 of PEEP Has tracheostomy in place Has TPN running SCDs are in place Moore to bedside drainage Sedated with fentanyl and propofol Discussed with RN Chart reviewed He remains critically 02/26/2021: Low-grade fever overnight (99.6 F). On vent with FiO2 40%, PEEP 5. S/p tracheostomy 02/23. Per RN, some hypertension overnight (systolic BP 203) requiring IV nicardipine, but this has been titrated down and now able to resume as needed hydralazine. Recommend keep nicardipine on standby to maintain blood pressure <150/90 mmHg. Continue TPN but will likely need PEG tube and eventually long-term acute care. Due to low-grade fever, lines are being changed. Continue Zosyn and Zyvox, per ID. Critical care time 30 minutes spent reviewing charts, reviewing imaging, reviewing labs, and discussion with RN. 02/25/2021: Remains on vent with FiO2 40%, PEEP 5. Afebrile. Plan for follow-up CT head on Saturday. Continue Zosyn, per ID. Blood glucose well controlled. Critical care time 30 minutes spent reviewing charts, reviewing imaging, reviewing labs, and discussion with RN. 02/24/2021: Afebrile. Had tracheostomy performed yesterday. On vent with FiO2 40%, PEEP 5. Continue antibiotics, per ID. Critical care time 30 minutes reviewing labs, reviewing imaging, reviewing charts, discussed with RN. 02/23/2021: Patient remains intubated in ICU, FiO2 40%, PEEP 5. I believe plan is for trach today. Continue daptomycin, Zosyn, and Zyvox, per ID. Critical care time 30 minutes spent reviewing charts, reviewing labs, reviewing imaging, discussion with RN. 02/22/2011: Patient ange intubated in ICU. Febrile today, T-max 100.3. FiO2 40, PEEP 5. Continue treatment with Zosyn, per ID. Continue to wean sedation as tolerated. Plan for trach tomorrow. Critical care time 30 minutes spent reviewing chart, reviewing labs, imaging, and discussion with RN. 02/21/2021: Patient remains intubated in ICU, FiO2 40%, PEEP 5. Afebrile. POD #12, s/p right occipital craniotomy with evacuation of intracerebral hematoma (02/09/21). Chest x-ray today shows improving bibasilar opacities. Continue Zosyn, per ID. Critical care time 30 minutes spent reviewing charts, reviewing labs, reviewing imaging, discussion with RN. 02/20/2021: POD #11 Right occipital craniotomy with evacuation of intracerebral hematoma (02/09/21). Remains sedated on ventilator, FiO2 40%, PEEP 5. Chest x- ray from 02/18 621 showed unchanged bibasilar opacities; recommending follow-up to ensure resolution, particularly of focal opacities in the right lung base. Continue Zosyn. Continue supportive care. Critical care time 30 minutes spent reviewing charts, reviewing labs, reviewing imaging, discussion with RN. 02/19/2021 POD #11 Right occipital craniotomy with evacuation of intracerebral hematoma sedated on vent Patient seen and examined at bedside Continue antibiotics per infectious disease Weaning ventilator and sedation as tolerated extubation in the next few days Plan of care discussed with bedside nurse Expected interval evolution of a right posterior temporal/occipital intraparenchymal hematoma status post decompressive craniotomy Large right temporo-occipital intraparenchymal bleed, most likely lobar hemorrhage from hypertension, consider venous sinus thrombosis, less likely in this location, aneurysmal bleed, head trauma (also unlikely). craniotomy 7/8 evening Suspect of aspiration, respiratory failure, hypertension, chronic obstructive pulmonary disease, improving acute kidney injury cont Zosyn glucose uncontrolled add Lantus 22 UNITS SQ HS elevated troponin suspect stress induced ischemia 36 MIN CC TIME 02/18/2021 POD #10 Right occipital craniotomy with evacuation of intracerebral hematoma sedated on vent Patient seen and examined at bedside Continue antibiotics per infectious disease Weaning ventilator and sedation as tolerated extubation in the next few days Plan of care discussed with bedside nurse Expected interval evolution of a right posterior temporal/occipital intraparenchymal hematoma status post decompressive craniotomy Large right temporo-occipital intraparenchymal bleed, most likely lobar hemorrhage from hypertension, consider venous sinus thrombosis, less likely in this location, aneurysmal bleed, head trauma (also unlikely). Had craniotomy 7/ evening Suspect of aspiration, respiratory failure, hypertension, chronic obstructive pulmonary disease, improving acute kidney injury cont Zosyn glucose uncontrolled add Lantus 22 UNITS SQ HS 34 MIN CC TIME 02/17/2021 POD #8 Right occipital craniotomy with evacuation of intracerebral hematoma sedated on vent Patient seen and examined at bedside Good response to IV Lasix Continue antibiotics per infectious disease Weaning ventilator and sedation as tolerated extubation in the next few days Plan of care discussed with bedside nurse Expected interval evolution of a right posterior temporal/occipital intraparench ymal hematoma status post decompressive craniotomy Large right temporo-occipital intraparenchymal bleed, most likely lobar hemor rhage from hypertension, consider venous sinus thrombosis, less likely in this location, aneurysmal bleed, head trauma (also unlikely). Had craniotomy 7/ evening Suspect of aspiration, respiratory failure, hypertension, chronic obstructive pulmonary disease, improving acute kidney injury cont Zosyn glucose uncontrolled add Lantus 18 UNITS SQ HS 33 MIN CC TIME 02/16/2021 POD #7 Right occipital craniotomy with evacuation of intracerebral hematoma sedated on vent Patient seen and examined at bedside Good response to IV Lasix Continue antibiotics per infectious disease Weaning ventilator and sedation as tolerated extubation in the next few days Plan of care discussed with bedside nurse Expected interval evolution of a right posterior temporal/occipital intraparenchymal hematoma status post decompressive craniotomy Large right temporo-occipital intraparenchymal bleed, most likely lobar hemorrhage from hypertension, consider venous sinus thrombosis, less likely in this location, aneurysmal bleed, head trauma (also unlikely). Had craniotomy 7/ evening Suspect of aspiration, respiratory failure, hypertension, chronic obstructive pulmonary disease, improving acute kidney injury cont Zosyn glucose uncontrolled add Lantus 14 UNITS SQ HS 35 MIN CC TIME 02/15/2021 POD #6 Right occipital craniotomy with evacuation of intracerebral hematoma sedated on vent Patient seen and examined at bedside Good response to IV Lasix Continue antibiotics per infectious disease Weaning ventilator and sedation as tolerated Hopeful extubation in the next few days Plan of care discussed with bedside nurse Expected interval evolution of a right posterior temporal/occipital intraparenchymal hematoma status post decompressive craniotomy Large right temporo-occipital intraparenchymal bleed, most likely lobar hemorrhage from hypertension, consider venous sinus thrombosis, less likely in this location, aneurysmal bleed, head trauma (also unlikely). Had craniotomy 7/ evening Suspect of aspiration, respiratory failure, hypertension, chronic obstructive pulmonary disease, improving acute kidney injury cont Zosyn glucose uncontrolled add Lantus 35 MIN CC TIME 02/14/2021 POD #5 Right occipital craniotomy with evacuation of intracerebral hematoma sedated on vent Patient seen and examined at bedside Good response to IV Lasix Continue antibiotics per infectious disease Weaning ventilator and sedation as tolerated Hopeful extubation in the next few days Plan of care discussed with bedside nurse Expected interval evolution of a right posterior temporal/occipital intraparenchymal hematoma status post decompressive craniotomy Large right temporo-occipital intraparenchymal bleed, most likely lobar hemorrhage from hypertension, consider venous sinus thrombosis, less likely in this location, aneurysmal bleed, head trauma (also unlikely). Had craniotomy 7/ evening Suspect of aspiration, respiratory failure, hypertension, chronic obstructive pulmonary disease, improving acute kidney injury cont Zosyn glucose uncontrolled add Lantus 35 MIN CC TIME 02/13/2021 POD #4 Right occipital craniotomy with evacuation of intracerebral hematoma sedated on vent Patient seen and examined at bedside Good response to IV Lasix Continue antibiotics per infectious disease Weaning ventilator and sedation as tolerated Hopeful extubation in the next few days Plan of care discussed with bedside nurse Expected interval evolution of a right posterior temporal/occipital intraparenchymal hematoma status post decompressive craniotomy Large right temporo-occipital intraparenchymal bleed, most likely lobar hemorrhage from hypertension, consider venous sinus thrombosis, less likely in this location, aneurysmal bleed, head trauma (also unlikely). Had craniotomy 02/09 evening Suspect of aspiration, respiratory failure, hypertension, chronic obstructive pulmonary disease, improving acute kidney injury cont Zosyn 35 MIN CC TIME 02/12/2021 Patient seen and examined at bedside Remains intubated and sedated Good response to IV Lasix yesterday had nearly 3 L out; will diurese again today Continue antibiotics per infectious disease Weaning ventilator and sedation as tolerated Hopeful extubation in the next few days Plan of care discussed with bedside nurse 02/11/2021 Patient seen and examined at bedside No major clinical changes overnight however this morning patient has largely increased amount of secretions Chest x-ray concerning for possible pneumonia, will consult ID who recommended starting Zosyn Otherwise he remains intubated and sedated We will follow subspecialist input Plan discussed with bedside RN 02/10/2021 Patient seen and examined at bedside Underwent craniotomy yesterday due to unresponsiveness in the late afternoon; was also intubated Continues to have a poor neurologic status Neurology and neurosurgery following Discussed plan of care with bedside nurse Patient is a 61-year-old male transferred for to the ICU overnight due to hypertensive emergency and intracranial hemorrhage. Patient's mother at bedside provides most the history. She reports that patient had been in his usual state of health until yesterday morning when he reported feeling tired and having a headache. Patient mother reports he normally gets up early and goes outside however this was not the case yesterday. With this headache he took BC powder and went back to bed. Patient's mother reports that he was in and out of bed throughout most of the afternoon. Says patient did not eat anything yesterday which is very unusual for him. Approximately 1130 last night she had the patient get up to go to the bathroom and heard him fall. He however is able to get up and returned to bed; unknown if he hit his head at this time. Patient again woke up around 2 AM and woke up his mother asking for orange juice and then proceeded to fall again, she does not think he hit his head at this time. He was taken to hospital and found to have a systolic blood pressure greater than [address] scan found to have an intracranial hemorrhage. Due to severity of his condition he was transferred here. Patient's mother reports she is not aware of any past medical history other than hypertension which he intermittently takes hydrochlorothiazide for. Vitals/I&O Vitals/I&O: Vital Signs Date Time Temp Pulse Resp B/P (MAP) Pulse Ox O2 Delivery O2 Flow Rate FiO2 03/01/21 11:00 57 12 170/97 (121) 100 Ventilator 03/01/21 08:00 98.7 98.7 I & O 02/28/21 02/28/21 03/01/21 15:00 23:00 07:00 Intake Total 1839 ml 836 ml Output Total 1075 ml 800 ml 625 ml Balance -1075 ml 1039 ml 211 ml Physical Exam Physical Exam: GENERAL: Sedated on vent, patient is not following commands HEENT: no icterus,OGT + NECK trach present LUNGS: Decreased breath sound at bases HEART: S1, S2 bradycardia ABDOMEN: Soft, nontender, mildly distended EXTREMITIES: + edema, no cyanosis. SKIN:no gen rash NEUROLOGIC: unable to assess Right IJ taken out RT PICC Line clean General: Other (sedated on vent, trach) Heart: Regular rate Lungs: Clear Abdomen: Normal bowel sounds Extremities: No clubbing, No edema Skin: Other (incision clean and dry) Labs Labs: Laboratory Tests Test 02/28/21 11:21 02/28/21 17:17 02/28/21 21:37 03/01/21 00:14 Glucose (Fingerstick) 223 mg/dL (70-99) 245 mg/dL (70-99) 244 mg/dL (70-99) 245 mg/dL (70-99) Test 03/01/21 05:40 Glucose (Fingerstick) 214 mg/dL (70-99) Assessment and Plan Assessmemt and Plan Dizziness Large right temporo-occipital intraparenchymal bleed, most likely lobar hemorrhage from hypertension, consider venous sinus thrombosis, , aneurysmal bleed, Had craniotomy 02/09 evening Suspect aspiration, respiratory failure, hypertension, chronic obstructive pulmonary disease, improving acute kidney injury MORBID OBESITY Severe malnutrition Plan ICU monitoring Vent weaning Trach care continue TPN IV Zyvox IV Zosyn Continue SCDs Moore to bedside drainage Continue sedation with propofol and fentanyl and Precedex Trend labs Home meds DVT prophylaxis Full code Prognosis extremely guarded he remains critically ill Appreciate subspecialist input CC time 34minute Comment Review of Relevant I have reviewed the following items neela (where applicable) has been applied. Medications: Current Medications Medications (Trade) Dose Ordered Sig/Lorraine Route PRN Reason Start Time Stop Time Status Last Admin Dose Admin Potassium Acetate 50 meq/Potassium Phosphate 13.6 mmol/Magnesium Sulfate 8 meq/ Calcium Gluconate 5 meq/ Multivitamins 5 ml/Zinc/Copper/ Manganese/ Selenium 1 ml/ Total Parenteral Nutrition/Amino Acids/Dextrose 2,040 ml @ 85 mls/hr TPN CONT IV 02/28/21 22:00 03/01/21 21:59 02/28/21 21:44 Justifications for Admission Other Justification JUSTIN LLOYD III DO Mar 01, 2021 11:18
[2021-03-01] MEDS: hydrALAZINE 20 MG/ML VIAL. IVP PRN ×2 (12:14→23:52)
[2021-03-01] MEDS: DEXMEDETOMIDINE 400 MCG in IV NORMAL SALINE 100ML 96 ML IV PRN ×3 (12:17→22:20)
[2021-03-01] MEDS: TPN PER PHARMACY MC PRN (12:36)
--- NOTE | 2021-03-01 12:37 | NUR ---
Pharmacy TPN Dosing Note S: COOPER CHAVEZ is a 61 year old M Currently receiving Central Continuous TPN started 02/11/21 B:Pertinent PMH: ILEUS, UNABLE TO START TUBE FEEDS Height: 6 feet, 2 inches Weight: 111.5 kg Current diet: NPO LABS: Sodium: 138 Potassium: 4.1 Chloride: 104 Calcium: 8.9 Corrected Calcium: 10.34 Magnesium: 2.1 CO2: 27 SCr: 0.8 Glucose: 214-157 Albumin: 2.2 AST: 35 ALT: 67 TPN FORMULA: TPN TYPE: Central Continuous AMINO ACIDS: 98 gm DEXTROSE: 255 gm POTASSIUM ACETATE: 50 mEq POTASSIUM PHOSPHATE: 13.6 mmol MAGNESIUM: 8 mEq CALCIUM: 5 mEq MULTIPLE VITAMIN: 5 ml TRACE ELEMENTS: 1 ml ml(s) TPN PLAN: Continue same TPN. -BMP,Mag,Phos and TG in the AM. R: Continue same TPN formula. Will monitor electrolytes, glucose, and tolerance to TPN. MIKALA RIGGS RPH, 03/01/21 [id number]
--- NOTE | 2021-03-01 14:56 | PDOC ---
PROGRESS NOTES Date of Service DATE: 03/01/21 TIME: 14:49 Assessment 1. Patient has had 6 CT scans through the course of this prolonged hospital stay. This most recent CT scan revealed evidence of a new moderate size stroke of frontal lobe. This is the first time of stroke as been apparent on the CT scan in this region. This worsens prognosis as he is experiencing bilateral cerebral insults. As result of the stroke he will likely have aphasia and right hemiparesis. As result of the hemorrhagic stroke he will likely have left hemiparesis, left hemisensory loss. The examination today was unchanged. He is still flaccid in his extremities without any response to pain and does not follow commands. Prognosis for meaningful recovery is poor. 2. He had a significant right hemispheric hemorrhage which required surgical evacuation. The serial CT scans of the head have revealed typical evolution of the hemorrhage. There has not been evidence for new bleed. 3. Respiratory failure for which she has had a trach. He is currently on pressure support. He is requiring heavy sedation as anytime the sedation is lifted he becomes agitated and fights the ventilator. He is currently on propofol 30 mcg, fentanyl 50 mcg/h and Precedex 0.6 mg/kg. Plan If not already involved I would suggest palliative care. I do not see the patient having the ability to survive outside of an extended care facility such as an LTAC. Subjective Ventilated per trach, sedated. Nonverbal Objective Vital Signs Date Time Temp Pulse Resp B/P (MAP) Pulse Ox O2 Delivery O2 Flow Rate FiO2 03/01/21 13:55 100 Ventilator 03/01/21 13:00 60 17 155/87 (109) 03/01/21 12:00 99.6 99.6 Intake and Output 03/01/21 07:00 Intake Total 2675 ml Output Total 2500 ml Balance 175 ml IV Total 946 ml Other 1729 ml Output Urine Total 2200 ml Gastric Drainage Total 300 ml PHYSICAL EXAM His eyes were closed. He was being ventilated through the trach. With noxious stimulation his eyes would open. There was no focus in the eyes were disconjugate. He did not blink to visual threat. He did not blink to loud clap. Oculocephalic reflex was absent. Corneal reflex was present. He had no facial expression. He did not follow commands nor did he look up or down to command. Muscle bulk was symmetric. Tone was flaccid in all 4 extremities. There was no spontaneous movement. There was no response to strong nailbed pressure. There was edema of all 4 extremities. There was no response to plantar stimulation. Review of Relevant I have reviewed the following items neela (where applicable) has been applied. Labs Laboratory Tests Test 02/27/21 18:39 02/27/21 23:20 02/28/21 05:11 02/28/21 05:15 Glucose (Fingerstick) 245 mg/dL (70-99) 244 mg/dL (70-99) 227 mg/dL (70-99) Sodium Level 138 mmol/L (136-145) Potassium Level 4.1 mmol/L (3.5-5.1) Chloride Level 104 mmol/L (98-107) Carbon Dioxide Level 27 mmol/L (21-32) Anion Gap 7 (6-14) Blood Urea Nitrogen 14 mg/dL (8-26) Creatinine 0.8 mg/dL (0.7-1.3) Estimated GFR (Cockcroft-Gault) 119.3 BUN/Creatinine Ratio 18 (6-20) Glucose Level 208 mg/dL (70-99) Calcium Level 8.9 mg/dL (8.5-10.1) Total Bilirubin 0.5 mg/dL (0.2-1.0) Aspartate Amino Transf (AST/SGOT) 35 U/L (15-37) Alanine Aminotransferase (ALT/SGPT) 67 U/L (16-63) Alkaline Phosphatase 111 U/L (46-116) Total Protein 6.4 g/dL (6.4-8.2) Albumin 2.1 g/dL (3.4-5.0) Albumin/Globulin Ratio 0.5 (1.0-1.7) Test 02/28/21 08:00 02/28/21 11:21 02/28/21 17:17 02/28/21 21:37 O2 Saturation 97 % (92-99) Arterial Blood pH 7.39 (7.35-7.45) Arterial Blood pCO2 at Patient Temp 37 mmHg (35-46) Arterial Blood pO2 at Patient Temp 100 mmHg (65-108) Arterial Blood HCO3 22 mmol/L (21-28) Arterial Blood Base Excess -3 mmol/L (-3-3) FiO2 45%+5 Glucose (Fingerstick) 223 mg/dL (70-99) 245 mg/dL (70-99) 244 mg/dL (70-99) Test 03/01/21 00:14 03/01/21 05:40 03/01/21 12:19 Glucose (Fingerstick) 245 mg/dL (70-99) 214 mg/dL (70-99) 257 mg/dL (70-99) Laboratory Tests Test 02/28/21 17:17 02/28/21 21:37 03/01/21 00:14 03/01/21 05:40 Glucose (Fingerstick) 245 mg/dL (70-99) 244 mg/dL (70-99) 245 mg/dL (70-99) 214 mg/dL (70-99) Test 03/01/21 12:19 Glucose (Fingerstick) 257 mg/dL (70-99) Microbiology 02/23/21 Gram Stain - Final, Complete 02/23/21 Aerobic Culture - Final, Complete 02/22/21 Blood Culture - Final, Complete NO GROWTH AFTER 5 DAYS 02/22/21 Gram Stain Evaluation - Final, Complete 02/22/21 Respiratory Culture - Final, Complete Medications Current Medications Nicardipine HCl 50 mg/Sodium Chloride 250 ml @ 12.5 mls/hr CONT PRN IV SEE I/O RECORD Last administered on 02/26/21at 01:20; Start 02/09/21 at 06:15 Labetalol HCl (Normodyne Iv Push) 10 mg PRN Q2HR PRN IVP HYPERTENSION- 1ST CHOICE Last administered on 02/28/21at 11:12; Start 02/09/21 at 06:15 Lorazepam (Ativan Inj) 2 mg 1X ONCE IVP Last administered on 02/09/21at 10:54; Start 02/09/21 at 10:45; Stop 02/09/21 at 10:46; Status DC Lorazepam (Ativan Inj) 2 mg 1X ONCE IVP Last administered on 02/09/21at 11:00; Start 02/09/21 at 11:00; Stop 02/09/21 at 11:01; Status DC Fentanyl Citrate (Fentanyl 2ml Vial) 25 mcg PRN Q2HR PRN IVP MODERATE TO SEVERE PAIN Last administered on 02/09/21at 13:37; Start 02/09/21 at 13:30; Stop 02/18/21 at 22:53; Status DC Info (Review Meds) 1 ea PRN 1X PRN MC SEE COMMENTS; Start 02/09/21 at 15:00 Acetaminophen (Tylenol Supp) 650 mg PRN Q6HRS PRN FL FEVER > 100.5'F or 38'C; Start 02/09/21 at 15:00; Stop 02/11/21 at 21:12; Status DC Albuterol Sulfate (Ventolin Neb Soln) 2.5 mg PRN Q4HRS PRN NEB SHORTNESS OF BREATH; Start 02/09/21 at 15:15 Iohexol (Omnipaque 350 Mg/ml) 75 ml 1X ONCE IV Last administered on 02/09/21at 15:52; Start 02/09/21 at 15:30; Stop 02/09/21 at 15:35; Status DC Iohexol (Omnipaque 350 Mg/ml) 100 ml STK-MED ONCE .ROUTE ; Start 02/09/21 at 15:26; Stop 02/09/21 at 15:27; Status DC Info (CONTRAST GIVEN -- Rx MONITORING) 1 each PRN DAILY PRN MC SEE COMMENTS; Start 02/09/21 at 15:45; Stop 02/11/21 at 15:44; Status DC Propofol 100 ml @ As Directed STK-MED ONCE IV ; Start 02/09/21 at 15:51; Stop 02/09/21 at 15:51; Status DC Rocuronium [place] (Zemuron) 50 mg STK-MED ONCE .ROUTE ; Start 02/09/21 at 15:51; Stop 02/09/21 at 15:51; Status DC Lidocaine HCl (Lidocaine HCl 2% Abboject) 100 mg STK-MED ONCE .ROUTE ; Start 02/09/21 at 15:52; Stop 02/09/21 at 15:53; Status DC Propofol 100 ml @ 3.507 mls/ hr CONT PRN IV PER PROTOCOL Last administered on 03/01/21at 13:19; Start 02/09/21 at 16:15 Lidocaine HCl (Lidocaine HCl 2% Abboject) 100 mg 1X ONCE IV Last administered on 02/09/21at 16:17; Start 02/09/21 at 16:15; Stop 02/09/21 at 16:17; Status DC Rocuronium [place] (Zemuron) 50 mg 1X ONCE IV Last administered on 02/09/21 16:17; Start 02/09/21 at 16:15; Stop 02/09/21 at 16:17; Status DC Rocuronium [place] (Zemuron) 100 mg STK-MED ONCE .ROUTE ; Start 02/09/21 at 16:31; Stop 02/09/21 at 16:32; Status DC Gelatin (Gelfoam Size 100) 1 each STK-MED ONCE .ROUTE Last administered on 02/09/21 17:49; Start 02/09/21 at 16:33; Stop 02/09/21 at 16:33; Status DC Bupivacaine HCl/ Epinephrine Bitart (Sensorcain-Epi 0.5%-1:[id number] Mpf) 30 ml STK-MED ONCE .ROUTE Last administered on 02/09/21 17:49; Start 02/09/21 at 16:33; Stop 02/09/21 at 16:33; Status DC Cellulose (Surgicel Hemostat 4x8) 1 each STK-MED ONCE .ROUTE Last administered on 02/09/21 18:38; Start 02/09/21 at 16:33; Stop 02/09/21 at 16:33; Status DC Thrombin 20,000 unit STK-MED ONCE TP Last administered on 02/09/21 17:49; Start 02/09/21 at 16:33; Stop 02/09/21 at 16:33; Status DC Fentanyl Citrate (Fentanyl 2ml Vial) 75 mcg 1X ONCE IVP Last administered on 02/09/21 16:45; Start 02/09/21 at 16:45; Stop 02/09/21 at 16:47; Status DC Propofol (Diprivan) 200 mg 1X ONCE IV ; Start 02/09/21 at 17:15; Stop 02/09/21 at 17:16; Status DC Lidocaine HCl (Lidocaine HCl 2% Abboject) 100 mg 1X ONCE IV ; Start 02/09/21 at 17:15; Stop 02/09/21 at 17:16; Status DC Rocuronium [place] (Zemuron) 50 mg 1X ONCE IV ; Start 02/09/21 at 17:15; Stop 02/09/21 at 17:16; Status DC Propofol 100 ml @ 0 mls/hr CONT PRN PRN IV SEDATION; Start 02/09/21 at 17:15; Stop 02/10/21 at 05:14; Status DC Cefazolin Sodium (Ancef) 1 gm STK-MED ONCE IVP ; Start 02/09/21 at 17:28; Stop 02/09/21 at 17:28; Status DC Fentanyl Citrate (Fentanyl 2ml Vial) 100 mcg STK-MED ONCE .ROUTE ; Start 02/09/21 at 17:43; Stop 02/09/21 at 17:43; Status DC Rocuronium [place] (Zemuron) 100 mg STK-MED ONCE .ROUTE ; Start 02/09/21 at 17:58 ; Stop 02/09/21 at 17:59; Status DC Vecuronium [place] (Norcuron Bolus) 10 mg STK-MED ONCE IV ; Start 02/09/21 at 18:49; Stop 02/09/21 at 18:50; Status DC Sodium Chloride (SODIUM CHLORIDE 20ml) 20 ml STK-MED ONCE IJ ; Start 02/09/21 at 18:50; Stop 02/09/21 at 18:50; Status DC Sevoflurane (Ultane) 90 ml STK-MED ONCE IH ; Start 02/09/21 at 19:20; Stop 02/09/21 at 19:21; Status DC Fentanyl Citrate 30 ml @ 2.5 mls/hr CONT PRN IV SEE PROTOCOL Last administered on 02/09/21at 23:40; Start 02/09/21 at 23:15; Stop 02/10/21 at 04:43; Status DC Fentanyl Citrate 55 ml @ 0 mls/hr CONT PRN IV SEE I/O Last administered on 03/01/21at 08:14; Start 02/10/21 at 05:00 Potassium Chloride/Dextrose/ Sod Cl 1,000 ml @ 80 mls/hr [id number] IV ; Start 02/10/21 at 09:00; Stop 02/10/21 at 13:21; Status DC Pantoprazole Sodium (PROTONIX VIAL for IV PUSH) 40 mg DAILYAC IVP Last administered on 03/01/21at 08:09; Start 02/10/21 at 09:00 Lidocaine HCl (Buffered Lidocaine 1%) 3 ml STK-MED ONCE .ROUTE ; Start 02/10/21 at 13:18; Stop 02/10/21 at 13:18; Status DC Sodium Chloride 1,000 ml @ 80 mls/hr [id number] IV Last administered on 02/12/21at 03:00; Start 02/10/21 at 13:30; Stop 02/12/21 at 15:36; Status DC Lidocaine HCl (Buffered Lidocaine 1%) 6 ml 1X ONCE INJ Last administered on 02/10/21at 13:57; Start 02/10/21 at 13:45; Stop 02/10/21 at 13:46; Status DC Potassium Chloride/Water 100 ml @ 100 mls/hr Q1H IV Last administered on 05/25at 10:07; Start 02/11/21 at 08:00; Stop 02/11/21 at 09:59; Status DC Piperacillin Sod/ Tazobactam Sod 3.375 gm/Sodium Chloride 50 ml @ 100 mls/hr Q6HRS IV Last administered on 03/01/21at 12:14; Start 02/11/21 at 09:00 Info (Tpn Per Pharmacy) 1 each PRN DAILY PRN MC SEE COMMENTS Last administered on 03/01/21at 12:36; Start 02/11/21 at 11:15 Sodium Chloride 90 meq/Potassium Chloride 50 meq/ Potassium Phosphate 13.6 mmol/Magnesium Sulfate 10 meq/ Calcium Gluconate 10 meq/ Multivitamins 5 ml/Zinc/Copper/ Manganese/ Selenium 1 ml/ Total Parenteral Nutrition/Amino Acids/Dextrose 1,512 ml @ 63 mls/hr TPN CONT IV Last administered on 02/11/21at 22:32; Start 02/11/21 at 22:00; Stop 02/12/21 at 21:59; Status DC Furosemide (Lasix) 20 mg 1X ONCE IVP Last administered on 02/11/21at 15:11; Start 02/11/21 at 15:30; Stop 02/11/21 at 15:31; Status DC Furosemide (Lasix) 20 mg 1X ONCE IVP Last administered on 02/11/21at 17:00; Start 02/11/21 at 17:00; Stop 02/11/21 at 17:01; Status DC Midazolam HCl 100 ml @ 1 mls/hr CONT PRN IV SEE PROTOCOL Last administered on 02/13/21at 20:58; Start 02/11/21 at 19:30 Acetaminophen (Tylenol Supp) 650 mg PRN Q6HRS PRN [place] MILD PAIN / TEMP > 100.3'F; Start 02/11/21 at 21:15 Sodium Chloride 80 meq/Potassium Chloride 50 meq/ Potassium Phosphate 13.6 mmol/Magnesium Sulfate 6 meq/ Calcium Gluconate 10 meq/ Multivitamins 5 ml/Zinc/Copper/ Manganese/ Selenium 1 ml/ Total Parenteral Nutrition/Amino Acids/Dextrose 1,512 ml @ 63 mls/hr TPN CONT IV Last administered on 02/12/21at 22:09; Start 02/12/21 at 22:00; Stop 02/13/21 at 21:59; Status DC Furosemide (Lasix) 40 mg 1X ONCE IVP Last administered on 02/12/21at 12:44; Start 02/12/21 at 12:30; Stop 02/12/21 at 12:31; Status DC Insulin Human Lispro (HumaLOG) 0-5 UNITS Q6HRS SQ Last administered on 03/01/21at 12:22; Start 02/12/21 at 12:00 Dextrose (Dextrose 50%-Water Syringe) 12.5 gm PRN Q15MIN PRN IV SEE COMMENTS; Start 02/12/21 at 12:15 Clonidine HCl (Catapres Tts-3) 1 patch WEEKLY TD Last administered on 02/27/21at 09:06; Start 02/13/21 at 11:00 Sodium Chloride 80 meq/Potassium Chloride 50 meq/ Potassium Phosphate 13.6 mmol/Magnesium Sulfate 6 meq/ Calcium Gluconate 10 meq/ Multivitamins 5 ml/Zinc/Copper/ Manganese/ Selenium 1 ml/ Total Parenteral Nutrition/Amino Acids/Dextrose 1,512 ml @ 63 mls/hr TPN CONT IV Last administered on 02/13/21at 21:42; Start 02/13/21 at 22:00; Stop 02/14/21 at 21:59; Status DC Potassium Acetate 50 meq/Potassium Phosphate 13.6 mmol/Magnesium Sulfate 6 meq/ Calcium Gluconate 10 meq/ Multivitamins 5 ml/Zinc/Copper/ Manganese/ Selenium 1 ml/ Total Parenteral Nutrition/Amino Acids/Dextrose 1,512 ml @ 63 mls/hr TPN CONT IV Last administered on 02/14/21at 21:59; Start 02/14/21 at 22:00; Stop 02/15/21 at 21:59; Status DC Insulin Glargine (Lantus Syringe) 10 unit QHS SQ Last administered on 02/15/21at 22:11; Start 02/14/21 at 21:00; Stop 02/16/21 at 12:42; Status DC Hydralazine HCl (Apresoline Inj) 10 mg PRN Q4HRS PRN IVP ELEVATED BP, SEE COMMENTS Last administered on 03/01/21at 12:14; Start 02/14/21 at 16:00 Potassium Acetate 50 meq/Potassium Phosphate 13.6 mmol/Magnesium Sulfate 6 meq/ Calcium Gluconate 10 meq/ Multivitamins 5 ml/Zinc/Copper/ Manganese/ Selenium 1 ml/ Total Parenteral Nutrition/Amino Acids/Dextrose 1,512 ml @ 63 mls/hr TPN CONT IV Last administered on 02/15/21at 22:13; Start 02/15/21 at 22:00; Stop 02/16/21 at 21:59; Status DC Dexmedetomidine HCl 400 mcg/ Sodium Chloride 100 ml @ 0 mls/hr CONT PRN IV PER PROTOCOL Last administered on 03/01/21at 12:17; Start 02/15/21 at 14:15 Sodium Chloride 500 ml @ 500 mls/hr 1X PRN PRN IV SEE COMMENTS; Start 02/15/21 at 14:15 Atropine Sulfate (ATROPINE 0.5mg SYRINGE) 0.5 mg PRN Q5MIN PRN IV SEE COMMENTS; Start 02/15/21 at 14:15 Potassium Acetate 50 meq/Potassium Phosphate 13.6 mmol/Magnesium Sulfate 6 meq/ Calcium Gluconate 10 meq/ Multivitamins 5 ml/Zinc/Copper/ Manganese/ Selenium 1 ml/ Total Parenteral Nutrition/Amino Acids/Dextrose 1,512 ml @ 63 mls/hr TPN CONT IV Last administered on 02/16/21at 22:59; Start 02/16/21 at 22:00; Stop 02/17/21 at 21:59; Status DC Insulin Glargine (Lantus Syringe) 14 unit QHS SQ Last administered on 02/16/21at 21:14; Start 02/16/21 at 21:00; Stop 02/17/21 at 14:15; Status DC Potassium Acetate 50 meq/Potassium Phosphate 13.6 mmol/Magnesium Sulfate 6 meq/ Calcium Gluconate 10 meq/ Multivitamins 5 ml/Zinc/Copper/ Manganese/ Selenium 1 ml/ Total Parenteral Nutrition/Amino Acids/Dextrose 1,512 ml @ 63 mls/hr TPN CONT IV Last administered on 02/17/21at 20:48; Start 02/17/21 at 22:00; Stop 02/18/21 at 21:59; Status DC Dextrose 1,000 ml @ 75 mls/hr [id number] IV Last administered on 02/18/21at 13:51; Start 02/17/21 at 10:30; Stop 02/19/21 at 12:57; Status DC Insulin Glargine (Lantus Syringe) 18 unit QHS SQ Last administered on 02/17/21at 20:46; Start 02/17/21 at 21:00; Stop 02/18/21 at 11:56; Status DC Insulin Glargine (Lantus Syringe) 22 unit QHS SQ Last administered on 02/18/21at 21:00; Start 02/18/21 at 21:00; Stop 02/19/21 at 14:08; Status DC Potassium Acetate 50 meq/Potassium Phosphate 13.6 mmol/Magnesium Sulfate 6 meq/ Calcium Gluconate 10 meq/ Multivitamins 5 ml/Zinc/Copper/ Manganese/ Selenium 1 ml/ Total Parenteral Nutrition/Amino Acids/Dextrose 1,512 ml @ 63 mls/hr TPN CONT IV Last administered on 02/18/21at 21:43; Start 02/18/21 at 22:00; Stop 02/19/21 at 21:59; Status DC Potassium Acetate 50 meq/Potassium Phosphate 13.6 mmol/Magnesium Sulfate 6 meq/ Calcium Gluconate 10 meq/ Multivitamins 5 ml/Zinc/Copper/ Manganese/ Selenium 1 ml/ Total Parenteral Nutrition/Amino Acids/Dextrose 2,040 ml @ 85 mls/hr TPN CONT IV Last administered on 02/19/21at 20:56; Start 02/19/21 at 22:00; Stop 02/20/21 at 21:59; Status DC Insulin Glargine (Lantus Syringe) 25 unit QHS SQ Last administered on 02/20/21at 22:11; Start 02/19/21 at 21:00; Stop 02/21/21 at 10:10; Status DC Acetaminophen (Tylenol) 650 mg PRN Q6HRS PRN PEG MILD PAIN / TEMP > 100.3'F Last administered on 02/22/21at 08:10; Start 02/19/21 at 18:00 Potassium Acetate 50 meq/Potassium Phosphate 13.6 mmol/Magnesium Sulfate 6 meq/ Calcium Gluconate 10 meq/ Multivitamins 5 ml/Zinc/Copper/ Manganese/ Selenium 1 ml/ Total Parenteral Nutrition/Amino Acids/Dextrose 2,040 ml @ 85 mls/hr TPN CONT IV Last administered on 02/20/21at 22:10; Start 02/20/21 at 22:00; Stop 02/21/21 at 21:59; Status DC Insulin Glargine (Lantus Syringe) 27 unit QHS SQ Last administered on 02/28/21at 21:39; Start 02/21/21 at 21:00 Magnesium Sulfate 50 ml @ 25 mls/hr 1X ONCE IV Last administered on 02/21/21at 11:30; Start 02/21/21 at 11:00; Stop 02/21/21 at 12:59; Status DC Potassium Acetate 50 meq/Potassium Phosphate 13.6 mmol/Magnesium Sulfate 8 meq/ Calcium Gluconate 10 meq/ Multivitamins 5 ml/Zinc/Copper/ Manganese/ Selenium 1 ml/ Total Parenteral Nutrition/Amino Acids/Dextrose 2,040 ml @ 85 mls/hr TPN CONT IV Last administered on 02/21/21at 21:23; Start 02/21/21 at 22:00; Stop 02/22/21 at 21:59; Status DC Daptomycin 570 mg/ Sodium Chloride 50 ml @ 100 mls/hr Q24H IV Last admi nistered on 02/24/21at 13:10; Start 02/22/21 at 12:00; Stop 02/25/21 at 10:34; Status DC Linezolid/Dextrose 300 ml @ 300 mls/hr Q12HR IV Last administered on 03/01/21at 08:09; Start 02/22/21 at 09:00 Potassium Acetate 50 meq/Potassium Phosphate 13.6 mmol/Magnesium Sulfate 8 meq/ Calcium Gluconate 5 meq/ Multivitamins 5 ml/Zinc/Copper/ Manganese/ Selenium 1 ml/ Total Parenteral Nutrition/Amino Acids/Dextrose 2,040 ml @ 85 mls/hr TPN CONT IV Last administered on 02/22/21at 21:32; Start 02/22/21 at 22:00; Stop 02/23/21 at 21:59; Status DC Fentanyl Citrate (Fentanyl 2ml Vial) 25 mcg PRN Q5MIN PRN IVP MILD PAIN 1-3; Start 02/23/21 at 06:00; Stop 02/24/21 at 05:59; Status DC Fentanyl Citrate (Fentanyl 2ml Vial) 50 mcg PRN Q5MIN PRN IVP MODERATE PAIN 4- 6; Start 02/23/21 at 06:00; Stop 02/24/21 at 05:59; Status DC Morphine Sulfate (Morphine Sulfate) 1 mg PRN Q10MIN PRN IVP SEVERE PAIN 7-10; Start 02/23/21 at 06:00; Stop 02/24/21 at 05:59; Status DC Ringer's Solution 1,000 ml @ 30 mls/hr Q24H IV Last administered on 02/23/21at 11:00; Start 02/23/21 at 06:00; Stop 02/23/21 at 17:59; Status DC Hydromorphone HCl (Dilaudid) 0.5 mg PRN Q10MIN PRN IVP SEVERE PAIN 7-10, 2nd CHOICE; Start 02/23/21 at 06:00; Stop 02/24/21 at 05:59; Status DC Prochlorperazine Edisylate (Compazine) 5 mg PACU PRN PRN IVP NAUSEA, MRX1; Start 02/23/21 at 06:00; Stop 02/24/21 at 05:59; Status DC Cellulose (Surgicel Fibrillar 1x2) 1 each STK-MED ONCE .ROUTE ; Start 02/23/21 at 08:23; Stop 02/23/21 at 08:23; Status DC Lidocaine/ Epinephrine (LIDOCAINE 1%-EPI 1:100,000 Multi-Dose) 20 ml STK-MED ONCE .ROUTE Last administered on 02/23/21at 13:33; Start 02/23/21 at 08:23; Stop 02/23/21 at 08:23; Status DC Potassium Acetate 50 meq/Potassium Phosphate 13.6 mmol/Magnesium Sulfate 8 meq/ Calcium Gluconate 5 meq/ Multivitamins 5 ml/Zinc/Copper/ Manganese/ Selenium 1 ml/ Total Parenteral Nutrition/Amino Acids/Dextrose 2,040 ml @ 85 mls/hr TPN CONT IV ; Start 02/23/21 at 22:00; Stop 02/24/21 at 21:59; Status DC Rocuronium [place] (Zemuron) 50 mg STK-MED ONCE .ROUTE ; Start 02/23/21 at 12:13; Stop 02/23/21 at 12:13; Status DC Fentanyl Citrate (Fentanyl 2ml Vial) 100 mcg STK-MED ONCE .ROUTE ; Start 02/23/21 at 12:24; Stop 02/23/21 at 12:24; Status DC Insulin Human Lispro (HumaLOG VIAL for OP,RR ONLY) 0-10 units PRN Q1HR PRN SQ PER PROTOCOL Last administered on 02/23/21at 13:00; Start 02/23/21 at 13:15; Stop 02/24/21 at 13:14; Status DC Rocuronium [place] (Zemuron) 100 mg STK-MED ONCE .ROUTE ; Start 02/23/21 at 13:22; Stop 02/23/21 at 13:23; Status DC Albuterol Sulfate (Ventolin Hfa) 60 puff STK-MED ONCE INH ; Start 02/23/21 at 13:47; Stop 02/23/21 at 13:48; Status DC Sevoflurane (Ultane) 60 ml STK-MED ONCE IH ; Start 02/23/21 at 14:21; Stop 02/23/21 at 14:21; Status DC Potassium Acetate 50 meq/Potassium Phosphate 13.6 mmol/Magnesium Sulfate 8 meq/ Calcium Gluconate 5 meq/ Multivitamins 5 ml/Zinc/Copper/ Manganese/ Selenium 1 ml/ Total Parenteral Nutrition/Amino Acids/Dextrose 2,040 ml @ 85 mls/hr TPN CONT IV ; Start 02/25/21 at 22:00; Stop 02/26/21 at 21:59; Status DC Potassium Acetate 50 meq/Potassium Phosphate 13.6 mmol/Magnesium Sulfate 8 meq/ Calcium Gluconate 5 meq/ Multivitamins 5 ml/Zinc/Copper/ Manganese/ Selenium 1 ml/ Total Parenteral Nutrition/Amino Acids/Dextrose 2,040 ml @ 85 mls/hr TPN CONT IV Last administered on 02/26/21at 21:27; Start 02/26/21 at 22:00; Stop 02/27/21 at 21:59; Status DC Potassium Acetate 50 meq/Potassium Phosphate 13.6 mmol/Magnesium Sulfate 8 meq/ Calcium Gluconate 5 meq/ Multivitamins 5 ml/Zinc/Copper/ Manganese/ Selenium 1 ml/ Total Parenteral Nutrition/Amino Acids/Dextrose 2,040 ml @ 85 mls/hr TPN CONT IV Last administered on 02/27/21at 21:01; Start 02/27/21 at 22:00; Stop 02/28/21 at 21:59; Status DC Potassium Acetate 50 meq/Potassium Phosphate 13.6 mmol/Magnesium Sulfate 8 meq/ Calcium Gluconate 5 meq/ Multivitamins 5 ml/Zinc/Copper/ Manganese/ Selenium 1 ml/ Total Parenteral Nutrition/Amino Acids/Dextrose 2,040 ml @ 85 mls/hr TPN CONT IV Last administered on 02/28/21at 21:44; Start 02/28/21 at 22:00; Stop 03/01/21 at 21:59 Potassium Acetate 50 meq/Potassium Phosphate 13.6 mmol/Magnesium Sulfate 8 meq/ Calcium Gluconate 5 meq/ Multivitamins 5 ml/Zinc/Copper/ Manganese/ Selenium 1 ml/ Total Parenteral Nutrition/Amino Acids/Dextrose 2,040 ml @ 85 mls/hr TPN CONT IV ; Start 03/01/21 at 22:00; Stop 03/02/21 at 21:59 Vitals/I & O Vital Sign - Last 24 Hours 02/28/21 02/28/21 02/28/21 02/28/21 15:00 15:45 16:00 16:00 Temp 99.2 99.2 Pulse 57 59 Resp 16 16 B/P (MAP) 163/89 (113) 159/85 (109) Pulse Ox 100 100 100 O2 Delivery Ventilator Ventilator Ventilator Mechanical Ventilator 02/28/21 02/28/21 02/28/21 02/28/21 17:00 17:33 18:00 19:00 Temp 98.9 98.9 Pulse 61 58 62 Resp 16 15 12 B/P (MAP) 159/85 (109) 149/75 (99) 159/63 (95) Pulse Ox 100 100 100 100 O2 Delivery Ventilator Ventilator Ventilator Ventilator 02/28/21 02/28/21 02/28/21 02/28/21 20:00 20:00 20:16 21:00 Pulse 62 63 Resp 13 14 B/P (MAP) 164/88 (113) 143/85 (104) Pulse Ox 100 100 100 O2 Delivery Ventilator Mechanical Ventilator Ventilator Ventilator 02/28/21 02/28/21 02/28/21 02/28/21 22:00 22:31 23:00 23:59 Temp 98.1 98.1 Pulse 58 59 61 Resp 14 14 17 B/P (MAP) 165/87 (113) 169/83 (111) 166/88 (114) Pulse Ox 100 100 100 100 O2 Delivery Ventilator Ventilator Ventilator Ventilator 02/28/21 03/01/21 03/01/21 03/01/21 23:59 01:00 02:00 03:00 Pulse 61 61 65 Resp 17 17 16 B/P (MAP) 162/88 (112) 145/82 (103) 146/82 (103) Pulse Ox 100 100 100 O2 Delivery Mechanical Ventilator Ventilator Ventilator Ventilator 03/01/21 03/01/21 03/01/21 03/01/21 04:00 04:00 05:00 06:00 Temp 98.7 98.7 Pulse 58 62 50 Resp 15 16 16 B/P (MAP) 166/87 (113) 147/84 (105) 137/61 (86) Pulse Ox 100 100 100 O2 Delivery Ventilator Mechanical Ventilator Ventilator Ventilator 03/01/21 03/01/21 03/01/21 03/01/21 07:00 07:34 07:38 08:00 Temp 98.7 98.7 Pulse 62 54 Resp 14 11 B/P (MAP) 137/77 (97) 131/76 (94) Pulse Ox 100 100 100 100 O2 Delivery Ventilator Ventilator Ventilator Ventilator 03/01/21 03/01/21 03/01/21 03/01/21 08:00 08:14 08:44 09:00 Pulse 59 Resp 17 B/P (MAP) 143/81 (101) Pulse Ox 100 100 100 O2 Delivery Mechanical Ventilator Ventilator 03/01/21 03/01/21 03/01/21 03/01/21 09:32 10:00 11:00 11:45 Pulse 58 57 Resp 13 12 B/P (MAP) 168/88 (114) 170/97 (121) Pulse Ox 100 100 100 100 O2 Delivery Ventilator Ventilator Ventilator Ventilator 03/01/21 03/01/21 03/01/21 03/01/21 12:00 12:00 12:14 13:00 Temp 99.6 99.6 Pulse 58 58 60 Resp 14 17 B/P (MAP) 179/106 (130) 179/106 155/87 (109) Pulse Ox 100 100 O2 Delivery Mechanical Ventilator Ventilator Ventilator 03/01/21 13:55 Pulse Ox 100 O2 Delivery Ventilator Intake and Output 02/28/21 02/28/21 03/01/21 15:00 23:00 07:00 Intake Total 1839 ml 836 ml Output Total 1075 ml 800 ml 625 ml Balance -1075 ml 1039 ml 211 ml Justicifation of Admission Dx: Justifications for Admission: Justification of Admission Dx: Yes Acute Hemorrhagic Stroke: Acute Hemorrhagic Stroke SYLVIA MARS MD Mar 01, 2021 14:56
--- NOTE | 2021-03-01 16:31 | NUR ---
SS following up with discharge planning. SS reviewed pt chart and discussed with RN. Pt is currently on the vent at 40%. COVID19 negative. Pt on TPN, IV Zyvox, and IV Zosyn. Pt on Fentanyl, Propofol, and Precedex. Trach in place. Self pay. Medicaid pending. Med Assist following. Not stable. SS will continue to follow for discharge planning.
[2021-03-01] MEDS: INSULIN GLARGINE SYRINGE. SQ SCH (21:18)
[2021-03-01] MEDS ORDERED: TOTAL PARENTERAL NUTRITION IV SCH (22:00)
[2021-03-01] MEDS ORDERED: DEXTROSE 70% IV SCH (22:00)
[2021-03-01] MEDS ORDERED: [UNRECOGNIZED DRUG - OTHER] IV SCH (22:00)
[2021-03-01] MEDS ORDERED: AMINO ACID IV SCH (22:00)
[2021-03-02] VITALS (23 sets, daily range): BP systolic 119–180; BP diastolic 67–97
[2021-03-02] MEDS: PIPERACILLIN/TAZOBACTAM 3.375 GM in IV NORMAL SALINE 50ML 50 ML IV SCH ×5 (00:01→23:31)
[2021-03-02] MEDS: PROPOFOL 100 ML IV PRN ×5 (03:26→22:05)
[2021-03-02] MEDS: DEXMEDETOMIDINE 400 MCG in IV NORMAL SALINE 100ML 96 ML IV PRN ×4 (03:41→19:27)
[2021-03-02] MEDS: INSULIN LISPRO 300 UNITS/3 ML VIAL. SQ SCH ×5 (06:24→23:31)
[2021-03-02 07:07] LABS: CALCIUM 9.1 mg/dL (8.5-10.1); CREATININE 0.7 mg/dL (0.7-1.3); GFR 139.2; MAGNESIUM 1.8 mg/dL (1.8-2.4); PHOSPHORUS 3.4 mg/dL (2.6-4.7); POTASSIUM 4.2 mmol/L (3.5-5.1)
--- NOTE | 2021-03-02 07:28 | PDOC ---
Infectious Disease Note Subjective: Subjective Pt remains intubated ,sedated T max 99.6 Condition remains unchanged overall Discussed with nursing staff Vital Signs: Vital Signs Vital Signs Date Time Temp Pulse Resp B/P (MAP) Pulse Ox O2 Delivery O2 Flow Rate FiO2 03/02/21 06:00 62 18 143/78 (99) 100 Ventilator 03/02/21 04:00 98.5 98.5 Physical Exam: PHYSICAL EXAM GENERAL: Sedated on vent, patient is not following commands HEENT: no icterus,NGT + NECK trach present LUNGS: Decreased breath sound at bases HEART: S1, S2 bradycardia ABDOMEN: Soft, nontender, mildly distended EXTREMITIES: + edema, no cyanosis. SKIN:no gen rash NEUROLOGIC: unable to assess Right IJ taken out RT PICC Line clean Medications: Inpatient Meds: Medications reviewed. Labs: Lab Laboratory Tests Test 03/01/21 12:19 03/01/21 18:21 03/01/21 21:16 03/01/21 23:58 Glucose (Fingerstick) 257 mg/dL (70-99) 246 mg/dL (70-99) 244 mg/dL (70-99) 286 mg/dL (70-99) Test 03/02/21 06:15 03/02/21 06:21 Sodium Level 135 mmol/L (136-145) Potassium Level 4.2 mmol/L (3.5-5.1) Chloride Level 102 mmol/L (98-107) Carbon Dioxide Level 29 mmol/L (21-32) Anion Gap 4 (6-14) Blood Urea Nitrogen 15 mg/dL (8-26) Creatinine 0.7 mg/dL (0.7-1.3) Estimated GFR (Cockcroft-Gault) 139.2 Glucose Level 244 mg/dL (70-99) Calcium Level 9.1 mg/dL (8.5-10.1) Phosphorus Level 3.4 mg/dL (2.6-4.7) Magnesium Level 1.8 mg/dL (1.8-2.4) Triglycerides Level 218 mg/dL (0-150) Glucose (Fingerstick) 239 mg/dL (70-99) Objective: Assessment: 1. Fever.resolved,cult neg 2. Acute hypoxic respiratory failure status post intubation suspected aspiration.sputum cultures NRF 3. Intracranial bleed with mass effect, status post craniotomy and hematoma evacuation. Repeat CT head noted 4. Encephalopathy, 5. Respiratory failure. 6. Hypertension. 7. Chronic obstructive pulmonary disease. 8. MARVIN improved U/S BUE to neg for DVT Plan: Plan of Care cont Zosyn DC Zyvox Pancultures negative till now Monitor labs and cults cont supportive care Neurology and neurosurgery following Prognosis guarded Discussed with nursing staff RAMU DELGADO MD Mar 02, 2021 07:28
[2021-03-02] MEDS: PANTOPRAZOLE IV PUSH 40 MG VIAL. IVP SCH (08:26)
[2021-03-02 09:12] LABS: BASE EXCESS ABG 0 mmol/L (-3-3); HCO3 ABG 25 mmol/L (21-28); PCO2 ABG 43 mmHg (35-46); PO2 ABG 74 mmHg (65-108); SAT O2 ABG 94 % (92-99)
[2021-03-02 09:18] LABS: FIO2 ABG 40/VENT
--- NOTE | 2021-03-02 10:27 | PDOC ---
PULMONARY PROGRESS NOTES DATE: 03/02/21 TIME: 10:24 Subjective Status post tracheotomy on 02/23 Currently sedate Does not do well off sedation Vitals Vital Signs Date Time Temp Pulse Resp B/P (MAP) Pulse Ox O2 Delivery O2 Flow Rate FiO2 03/02/21 09:19 100 Ventilator 03/02/21 07:00 67 18 145/85 (105) 03/02/21 04:00 98.5 98.5 Comments ros unable to obtain intubated on vent Lungs: Clear Cardiovascular: S1, S2 Abdomen: Soft, Non-tender Extremities: No Edema Skin: Warm Labs Laboratory Tests Test 02/28/21 11:21 02/28/21 17:17 02/28/21 21:37 03/01/21 00:14 Glucose (Fingerstick) 223 mg/dL (70-99) 245 mg/dL (70-99) 244 mg/dL (70-99) 245 mg/dL (70-99) Test 03/01/21 05:40 03/01/21 12:19 03/01/21 18:21 03/01/21 21:16 Glucose (Fingerstick) 214 mg/dL (70-99) 257 mg/dL (70-99) 246 mg/dL (70-99) 244 mg/dL (70-99) Test 03/01/21 23:58 03/02/21 06:15 03/02/21 06:21 03/02/21 08:00 Glucose (Fingerstick) 286 mg/dL (70-99) 239 mg/dL (70-99) Sodium Level 135 mmol/L (136-145) Potassium Level 4.2 mmol/L (3.5-5.1) Chloride Level 102 mmol/L (98-107) Carbon Dioxide Level 29 mmol/L (21-32) Anion Gap 4 (6-14) Blood Urea Nitrogen 15 mg/dL (8-26) Creatinine 0.7 mg/dL (0.7-1.3) Estimated GFR (Cockcroft-Gault) 139.2 Glucose Level 244 mg/dL (70-99) Calcium Level 9.1 mg/dL (8.5-10.1) Phosphorus Level 3.4 mg/dL (2.6-4.7) Magnesium Level 1.8 mg/dL (1.8-2.4) Triglycerides Level 218 mg/dL (0-150) O2 Saturation 94 % (92-99) Arterial Blood pH 7.39 (7.35-7.45) Arterial Blood pCO2 at Patient Temp 43 mmHg (35-46) Arterial Blood pO2 at Patient Temp 74 mmHg (65-108) Arterial Blood HCO3 25 mmol/L (21-28) Arterial Blood Base Excess 0 mmol/L (-3-3) FiO2 40/vent Laboratory Tests Test 03/01/21 12:19 03/01/21 18:21 03/01/21 21:16 03/01/21 23:58 Glucose (Fingerstick) 257 mg/dL (70-99) 246 mg/dL (70-99) 244 mg/dL (70-99) 286 mg/dL (70-99) Test 03/02/21 06:15 03/02/21 06:21 03/02/21 08:00 Sodium Level 135 mmol/L (136-145) Potassium Level 4.2 mmol/L (3.5-5.1) Chloride Level 102 mmol/L (98-107) Carbon Dioxide Level 29 mmol/L (21-32) Anion Gap 4 (6-14) Blood Urea Nitrogen 15 mg/dL (8-26) Creatinine 0.7 mg/dL (0.7-1.3) Estimated GFR (Cockcroft-Gault) 139.2 Glucose Level 244 mg/dL (70-99) Calcium Level 9.1 mg/dL (8.5-10.1) Phosphorus Level 3.4 mg/dL (2.6-4.7) Magnesium Level 1.8 mg/dL (1.8-2.4) Triglycerides Level 218 mg/dL (0-150) Glucose (Fingerstick) 239 mg/dL (70-99) O2 Saturation 94 % (92-99) Arterial Blood pH 7.39 (7.35-7.45) Arterial Blood pCO2 at Patient Temp 43 mmHg (35-46) Arterial Blood pO2 at Patient Temp 74 mmHg (65-108) Arterial Blood HCO3 25 mmol/L (21-28) Arterial Blood Base Excess 0 mmol/L (-3-3) FiO2 40/vent Comments CXR 02/21/21 IMPRESSION: 1. Stable life support devices. 2. Improving bibasilar opacities.. CXR 02/18/21 IMPRESSION: Unchanged bibasilar opacities. Recommend follow-up to ensure resolution, particularly of focal opacities in the right lung base. CXR 02/17/21 IMPRESSION: 1. Stable life support devices. 2. Stable bibasilar opacities. 3. Stable small left pleural effusion. IMPRESSION: Chest x-ray 02/13 1. Stable support lines and tubes. 2. Severe right upper lobe predominant bullous emphysema. 3. Stable right perihilar linear atelectasis or infiltrate superimposed on diffuse interstitial prominence and small pleural effusions. Impression . IMPRESSION: 1. Acute hypoxic respiratory failure multifactorial, predominantly to intraparenchymal cerebral hematoma. Status post tracheostomy 02/[address] reveals evidence of a new moderate-sized stroke of frontal lobe, per neurology 3. Long history of tobaccoism. CT angiogram showed bullous emphysema in the upper lobes. 3. Acute kidney injury--resolved 4. Leukocytosis--resolved 5. s/p Right occipital craniotomy with evacuation of intracerebral hematoma. 02/09/21 6. Encephalopathy, multifactorial--ongoing 7. Uncontrolled hypertension 8. Fever, per ID 9. Status post tracheotomy 02/23 CT head 02/13, IMPRESSION: 1. Expected interval evolution of a right posterior temporal/occipital intraparenchymal hematoma status post decompressive craniotomy. 2. Expected evolution of a small amount of subarachnoid and intraventricular clot. DATE OF SURGERY: 02/09/2021 PREOPERATIVE DIAGNOSIS: Right posterior temporoparietal occipital intracerebral hemorrhage with neurologic deterioration. POSTOPERATIVE DIAGNOSIS: Right posterior temporoparietal occipital intracerebral hemorrhage with neurologic deterioration. OPERATION PERFORMED: Right occipital craniotomy with evacuation of intracerebral hematoma. Plan . Updated 03/02 Continue current support, status post tracheotomy Neurology's note appreciated, new frontal lobe stroke on most recent CT, prognosis for meaningful recovery is poor Discussed with RN, difficult to decrease sedation Antibody to biotics per ID Updated 03/01 Continue current support Antibiotics per ID Patient does not do well off of sedation DVT GI prophylaxis Updated 02/28 Discussed with RN and RT Decrease sedation Pressure support throughout the day as tolerated Antibiotics per ID DVT GI prophylaxis MANJULA PADILLA MD Mar 02, 2021 10:27
[2021-03-02] MEDS: TPN PER PHARMACY MC PRN (10:30)
--- NOTE | 2021-03-02 10:31 | NUR ---
Pharmacy TPN Dosing Note S: COOPER CHAVEZ is a 61 year old M Currently receiving Central Continuous TPN started 02/11/21 B:Pertinent PMH: ILEUS, UNABLE TO START TUBE FEEDS Height: 6 feet, 2 inches Weight: 111.5 kg Current diet: NPO LABS: Sodium: 135 Potassium: 4.2 Chloride: 102 Calcium: 9.1 Corrected Calcium: 10.62 Magnesium: 1.8 CO2: 29 SCr: 0.7 Glucose: 224, 239 Albumin: 2.1 AST: 35 ALT: 67 TPN FORMULA: TPN TYPE: Central Continuous AMINO ACIDS: 98 gm DEXTROSE: 255 gm LIPIDS: 0 gm POTASSIUM ACETATE: 50 mEq POTASSIUM PHOSPHATE: 13.6 mmol MAGNESIUM: 8 mEq MULTIPLE VITAMIN: 5 ml TRACE ELEMENTS: 1 ml TPN PLAN: -Corrected calcium elevated, remove calcium from TPN. -Blood glucose values above goal range, will request a Lantus dose increase. -Serum TG 218; continues to receive approx 50g of lipids via propofol infusion. -Serum sodium trending down, no sodium in TPN. -BMP tomorrow. R: Continue TPN @ current rate and with above formula. Will monitor electrolytes, glucose, and tolerance to TPN. ODELL SALINAS, [facility], 03/02/21 1031
--- NOTE | 2021-03-02 12:07 | PDOC ---
[employer] PROGRESS NOTE Date of Service DOS: DATE: 03/02/21 TIME: 12:05 Chief Complaint Chief Complaint Respiratory failure requiring intubation Status post tracheostomy REPLANTER hemorrhage Status post craniotomy 02/09/2021 Obesity Aspiration Hypertension COPD Acute kidney injury Severe malnutrition History of Present Illness History of Present Illness 03/02/2021 Patient seen and examined in the ICU We just changed him over to spontaneous respirations with 10 of pressure support and 40% FiO2 Discussed with RN and respiratory therapy He has been able to be on spontaneous respirations during the daytime for the past 3 days but we have placed him back on assist-control at nighttime Trach is clean and in tact Has Moore to bedside drainage SCDs in place OG is to suction Has IV TPN Has IV Zyvox Sedated with Precedex and propofol 03/01/2021 Patient seen and examined in the ICU He remains mechanically ventilated AC/16/500/40 5% with 5 of PEEP trach appears clean dry and intact He is a Moore bedside drainage Sedated with fentanyl and propofol Has TPN hanging Discussed with RN Discussed with case management Chart reviewed He remains very critically ill 02/28/2021 Patient seen and examined in the ICU He remains mechanically ventilated Has a tracheostomy in place Vent settings as follows AC/16/500/45/5 of PEEP Has SCDs in place Moore is to bedside drainage Sedated with Precedex fentanyl and propofol Has IV TPN Chart reviewed Discussed with RN He remains critically 02/27/2021 Patient seen and examined in the ICU He remains mechanically ventilated AC/16/500/40 5% with 5 of PEEP Has tracheostomy in place Has TPN running SCDs are in place Moore to bedside drainage Sedated with fentanyl and propofol Discussed with RN Chart reviewed He remains critically 02/26/2021: Low-grade fever overnight (99.6 F). On vent with FiO2 40%, PEEP 5. S/p tracheostomy 02/23. Per RN, some hypertension overnight (systolic BP 203) requiring IV nicardipine, but this has been titrated down and now able to resume as needed hydralazine. Recommend keep nicardipine on standby to maintain blood pressure <150/90 mmHg. Continue TPN but will likely need PEG tube and eventually long-term acute care. Due to low-grade fever, lines are being changed. Continue Zosyn and Zyvox, per ID. Critical care time 30 minutes spent reviewing charts, reviewing imaging, reviewing labs, and discussion with RN. 02/25/2021: Remains on vent with FiO2 40%, PEEP 5. Afebrile. Plan for follow-up CT head on Saturday. Continue Zosyn, per ID. Blood glucose well controlled. Critical care time 30 minutes spent reviewing charts, reviewing imaging, reviewing labs, and discussion with RN. 02/24/2021: Afebrile. Had tracheostomy performed yesterday. On vent with FiO2 40%, PEEP 5. Continue antibiotics, per ID. Critical care time 30 minutes reviewing labs, reviewing imaging, reviewing charts, discussed with RN. 02/23/2021: Patient remains intubated in ICU, FiO2 40%, PEEP 5. I believe plan is for trach today. Continue daptomycin, Zosyn, and Zyvox, per ID. Critical care time 30 minutes spent reviewing charts, reviewing labs, reviewing imaging, discussion with RN. 02/22/2011: Patient ange intubated in ICU. Febrile today, T-max 100.3. FiO2 40, PEEP 5. Continue treatment with Zosyn, per ID. Continue to wean sedation as tolerated. Plan for trach tomorrow. Critical care time 30 minutes spent reviewing chart, reviewing labs, imaging, and discussion with RN. 02/21/2021: Patient remains intubated in ICU, FiO2 40%, PEEP 5. Afebrile. POD #12, s/p right occipital craniotomy with evacuation of intracerebral hematoma ( 02/09/21). Chest x-ray today shows improving bibasilar opacities. Continue Zosyn, per ID. Critical care time 30 minutes spent reviewing charts, reviewing labs, reviewing imaging, discussion with RN. 02/20/2021: POD #11 Right occipital craniotomy with evacuation of intracerebral hematoma (02/09/21). Remains sedated on ventilator, FiO2 40%, PEEP 5. Chest x- ray from 02/18 showed unchanged bibasilar opacities; recommending follow-up to ensure resolution, particularly of focal opacities in the right lung base. Continue Zosyn. Continue supportive care. Critical care time 30 minutes spent reviewing charts, reviewing labs, reviewing imaging, discussion with RN. 02/19/2021 POD #11 Right occipital craniotomy with evacuation of intracerebral hematoma sedated on vent Patient seen and examined at bedside Continue antibiotics per infectious disease Weaning ventilator and sedation as tolerated extubation in the next few days Plan of care discussed with bedside nurse Expected interval evolution of a right posterior temporal/occipital intraparenchymal hematoma status post decompressive craniotomy Large right temporo-occipital intraparenchymal bleed, most likely lobar hemorrhage from hypertension, consider venous sinus thrombosis, less likely in this location, aneurysmal bleed, head trauma (also unlikely). craniotomy 7/8 evening Suspect of aspiration, respiratory failure, hypertension, chronic obstructive pulmonary disease, improving acute kidney injury cont Zosyn glucose uncontrolled add Lantus 22 UNITS SQ HS elevated troponin suspect stress induced ischemia 36 MIN CC TIME 02/18/2021 POD #10 Right occipital craniotomy with evacuation of intracerebral hematoma sedated on vent Patient seen and examined at bedside Continue antibiotics per infectious disease Weaning ventilator and sedation as tolerated extubation in the next few days Plan of care discussed with bedside nurse Expected interval evolution of a right posterior temporal/occipital intraparenchymal hematoma status post decompressive craniotomy Large right temporo-occipital intraparenchymal bleed, most likely lobar hemorrhage from hypertension, consider venous sinus thrombosis, less likely in this location, aneurysmal bleed, head trauma (also unlikely). Had craniotomy 7/ evening Suspect of aspiration, respiratory failure, hypertension, chronic obstructive pulmonary disease, improving acute kidney injury cont Zosyn glucose uncontrolled add Lantus 22 UNITS SQ HS 34 MIN CC TIME 02/17/2021 POD #8 Right occipital craniotomy with evacuation of intracerebral hematoma sedated on vent Patient seen and examined at bedside Good response to IV Lasix Continue antibiotics per infectious disease Weaning ventilator and sedation as tolerated extubation in the next few days Plan of care discussed with bedside nurse Expected interval evolution of a right posterior temporal/occipital intraparenchymal hematoma status post decompressive craniotomy Large right temporo-occipital intraparenchymal bleed, most likely lobar hemorrhage from hypertension, consider venous sinus thrombosis, less likely in this location, aneurysmal bleed, head trauma (also unlikely). Had craniotomy 7/8 evening Suspect of aspiration, respiratory failure, hypertension, chronic obstructive pulmonary disease, improving acute kidney injury cont Zosyn glucose uncontrolled add Lantus 18 UNITS SQ HS 33 MIN CC TIME 02/16/2021 POD #7 Right occipital craniotomy with evacuation of intracerebral hematoma sedated on vent Patient seen and examined at bedside Good response to IV Lasix Continue antibiotics per infectious disease Weaning ventilator and sedation as tolerated extubation in the next few days Plan of care discussed with bedside nurse Expected interval evolution of a right posterior temporal/occipital intraparenchymal hematoma status post decompressive craniotomy Large right temporo-occipital intraparenchymal bleed, most likely lobar hemorrhage from hypertension, consider venous sinus thrombosis, less likely in this location, aneurysmal bleed, head trauma (also unlikely). Had craniotomy 7/ evening Suspect of aspiration, respiratory failure, hypertension, chronic obstructive pulmonary disease, improving acute kidney injury cont Zosyn glucose uncontrolled add Lantus 14 UNITS SQ HS 35 MIN CC TIME 02/15/2021 POD #6 Right occipital craniotomy with evacuation of intracerebral hematoma sedated on vent Patient seen and examined at bedside Good response to IV Lasix Continue antibiotics per infectious disease Weaning ventilator and sedation as tolerated Hopeful extubation in the next few days Plan of care discussed with bedside nurse Expected interval evolution of a right posterior temporal/occipital intraparenchymal hematoma status post decompressive craniotomy Large right temporo-occipital intraparenchymal bleed, most likely lobar hemorrhage from hypertension, consider venous sinus thrombosis, less likely in this location, aneurysmal bleed, head trauma (also unlikely). Had craniotomy 02/09 evening Suspect of aspiration, respiratory failure, hypertension, chronic obstructive pulmonary disease, improving acute kidney injury cont Zosyn glucose uncontrolled add Lantus 35 MIN CC TIME 02/14/2021 POD #5 Right occipital craniotomy with evacuation of intracerebral hematoma sedated on vent Patient seen and examined at bedside Good response to IV Lasix Continue antibiotics per infectious disease Weaning ventilator and sedation as tolerated Hopeful extubation in the next few days Plan of care discussed with bedside nurse Expected interval evolution of a right posterior temporal/occipital intraparenchymal hematoma status post decompressive craniotomy Large right temporo-occipital intraparenchymal bleed, most likely lobar hemorrhage from hypertension, consider venous sinus thrombosis, less likely in this location, aneurysmal bleed, head trauma (also unlikely). Had craniotomy 7/ evening Suspect of aspiration, respiratory failure, hypertension, chronic obstructive pulmonary disease, improving acute kidney injury cont Zosyn glucose uncontrolled add Lantus 35 MIN CC TIME 02/13/2021 POD #4 Right occipital craniotomy with evacuation of intracerebral hematoma sedated on vent Patient seen and examined at bedside Good response to IV Lasix Continue antibiotics per infectious disease Weaning ventilator and sedation as tolerated Hopeful extubation in the next few days Plan of care discussed with bedside nurse Expected interval evolution of a right posterior temporal/occipital intraparenchymal hematoma status post decompressive craniotomy Large right temporo-occipital intraparenchymal bleed, most likely lobar hemorrhage from hypertension, consider venous sinus thrombosis, less likely in this location, aneurysmal bleed, head trauma (also unlikely). Had craniotomy 02/09 evening Suspect of aspiration, respiratory failure, hypertension, chronic obstructive pulmonary disease, improving acute kidney injury cont Zosyn 35 MIN CC TIME 02/12/2021 Patient seen and examined at bedside Remains intubated and sedated Good response to IV Lasix yesterday had nearly 3 L out; will diurese again today Continue antibiotics per infectious disease Weaning ventilator and sedation as tolerated Hopeful extubation in the next few days Plan of care discussed with bedside nurse 02/11/2021 Patient seen and examined at bedside No major clinical changes overnight however this morning patient has largely increased amount of secretions Chest x-ray concerning for possible pneumonia, will consult ID who recommended starting Zosyn Otherwise he remains intubated and sedated We will follow subspecialist input Plan discussed with bedside RN 02/10/2021 Patient seen and examined at bedside Underwent craniotomy yesterday due to unresponsiveness in the late afternoon; was also intubated Continues to have a poor neurologic status Neurology and neurosurgery following Discussed plan of care with bedside nurse Patient is a 61-year-old male transferred for to the ICU overnight due to hypertensive emergency and intracranial hemorrhage. Patient's mother at bedside provides most the history. She reports that patient had been in his usual state of health until yesterday morning when he reported feeling tired and having a headache. Patient mother reports he normally gets up early and goes outside however this was not the case yesterday. With this headache he took BC powder and went back to bed. Patient's mother reports that he was in and out of bed throughout most of the afternoon. Says patient did not eat anything yesterday which is very unusual for him. Approximately 1130 last night she had the patient get up to go to the bathroom and heard him fall. He however is able to get up and returned to bed; unknown if he hit his head at this time. Patient again woke up around 2 AM and woke up his mother asking for orange juice and then proceeded to fall again, she does not think he hit his head at this time. He was taken to hospital and found to have a systolic blood pressure greater than [address] scan found to have an intracranial hemorrhage. Due to severity of his condition he was transferred here. Patient's mother reports she is not aware of any past medical history other than hypertension which he intermittently takes hydrochlorothiazide for. Vitals/I&O Vitals/I&O: Vital Signs Date Time Temp Pulse Resp B/P (MAP) Pulse Ox O2 Delivery O2 Flow Rate FiO2 03/02/21 11:12 100 Ventilator 03/02/21 11:00 66 16 160/89 (112) 03/02/21 08:00 98.8 98.8 I & O 03/01/21 03/01/21 03/02/21 15:00 23:00 07:00 Intake Total 1884 ml 1757 ml Output Total 1200 ml 550 ml 745 ml Balance -1200 ml 1334 ml 1012 ml Physical Exam Physical Exam: GENERAL: Sedated on vent, patient is not following commands HEENT: no icterus,NGT + NECK trach present LUNGS: Decreased breath sound at bases HEART: S1, S2 bradycardia ABDOMEN: Soft, nontender, mildly distended EXTREMITIES: + edema, no cyanosis. SKIN:no gen rash NEUROLOGIC: unable to assess Right IJ taken out RT PICC Line clean General: Other (sedated on vent, trach) Heart: Regular rate Lungs: Clear Abdomen: Normal bowel sounds Extremities: No clubbing, No edema Skin: Other (incision clean and dry) Labs Labs: Laboratory Tests Test 03/01/21 12:19 03/01/21 18:21 03/01/21 21:16 03/01/21 23:58 Glucose (Fingerstick) 257 mg/dL (70-99) 246 mg/dL (70-99) 244 mg/dL (70-99) 286 mg/dL (70-99) Test 03/02/21 06:15 03/02/21 06:21 03/02/21 08:00 Sodium Level 135 mmol/L (136-145) Potassium Level 4.2 mmol/L (3.5-5.1) Chloride Level 102 mmol/L (98-107) Carbon Dioxide Level 29 mmol/L (21-32) Anion Gap 4 (6-14) Blood Urea Nitrogen 15 mg/dL (8-26) Creatinine 0.7 mg/dL (0.7-1.3) Estimated GFR (Cockcroft-Gault) 139.2 Glucose Level 244 mg/dL (70-99) Calcium Level 9.1 mg/dL (8.5-10.1) Phosphorus Level 3.4 mg/dL (2.6-4.7) Magnesium Level 1.8 mg/dL (1.8-2.4) Triglycerides Level 218 mg/dL (0-150) Glucose (Fingerstick) 239 mg/dL (70-99) O2 Saturation 94 % (92-99) Arterial Blood pH 7.39 (7.35-7.45) Arterial Blood pCO2 at Patient Temp 43 mmHg (35-46) Arterial Blood pO2 at Patient Temp 74 mmHg (65-108) Arterial Blood HCO3 25 mmol/L (21-28) Arterial Blood Base Excess 0 mmol/L (-3-3) FiO2 40/vent Assessment and Plan Assessmemt and Plan Respiratory failure requiring intubation Large right temporo-occipital intraparenchymal bleed, most likely lobar hemorrhage from hypertension, consider venous sinus thrombosis, , aneurysmal bleed, Had craniotomy 02/09 evening Suspect aspiration, respiratory failure, hypertension, chronic obstructive pulmonary disease, improving acute kidney injury MORBID OBESITY Severe malnutrition Plan ICU monitoring Vent weaning (we are able to put him onto spontaneous respiration daily for the past 3 days for a few hours) Resume assist-control at bedtime Daily ABG Daily chest x-ray Trach care continue TPN IV Zyvox IV Zosyn Continue SCDs Moore to bedside drainage Discussed with RN Continue sedation with propofol and fentanyl and Precedex Trend labs Home meds DVT prophylaxis Full code Prognosis extremely guarded he remains critically ill Appreciate subspecialist input CC time 32minute Comment Review of Relevant I have reviewed the following items neela (where applicable) has been applied. Medications: Current Medications Medications (Trade) Dose Ordered Sig/Lorraine Route PRN Reason Start Time Stop Time Status Last Admin Dose Admin Potassium Acetate 50 meq/Potassium Phosphate 13.6 mmol/Magnesium Sulfate 8 meq/ Calcium Gluconate 5 meq/ Multivitamins 5 ml/Zinc/Copper/ Manganese/ Selenium 1 ml/ Total Parenteral Nutrition/Amino Acids/Dextrose 2,040 ml @ 85 mls/hr TPN CONT IV 03/01/21 22:00 03/02/21 21:59 03/01/21 21:22 Justifications for Admission Other Justification JUSTIN LLOYD III DO Mar 02, 2021 12:07
--- NOTE | 2021-03-02 13:22 | PDOC ---
PROGRESS NOTES Date of Service DATE: 03/02/21 TIME: 13:18 Subjective Subjective s/p Right occipital craniotomy with evacuation of intracerebral hematoma 02/09/21 sedated on vent Objective Objective Vital Signs Date Time Temp Pulse Resp B/P (MAP) Pulse Ox O2 Delivery O2 Flow Rate FiO2 03/02/21 11:12 100 Ventilator 03/02/21 11:00 66 16 160/89 (112) 03/02/21 08:00 98.8 98.8 Intake and Output 03/02/21 07:00 Intake Total 3641 ml Output Total 2495 ml Balance 1146 ml IV Total 3641 ml Output Urine Total 2495 ml Physical Exam General: Other (sedated on vent, trach) Neuro: Other (opens eyes, not following commands, sedated) Skin: Other (Erik removed, dressing changed) Plan Plan of Care Most recent CT reveals 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 Labs Laboratory Tests Test 02/28/21 17:17 02/28/21 21:37 03/01/21 00:14 03/01/21 05:40 Glucose (Fingerstick) 245 mg/dL (70-99) 244 mg/dL (70-99) 245 mg/dL (70-99) 214 mg/dL (70-99) Test 03/01/21 12:19 03/01/21 18:21 03/01/21 21:16 03/01/21 23:58 Glucose (Fingerstick) 257 mg/dL (70-99) 246 mg/dL (70-99) 244 mg/dL (70-99) 286 mg/dL (70-99) Test 03/02/21 06:15 03/02/21 06:21 03/02/21 08:00 03/02/21 13:09 Sodium Level 135 mmol/L (136-145) Potassium Level 4.2 mmol/L (3.5-5.1) Chloride Level 102 mmol/L (98-107) Carbon Dioxide Level 29 mmol/L (21-32) Anion Gap 4 (6-14) Blood Urea Nitrogen 15 mg/dL (8-26) Creatinine 0.7 mg/dL (0.7-1.3) Estimated GFR (Cockcroft-Gault) 139.2 Glucose Level 244 mg/dL (70-99) Calcium Level 9.1 mg/dL (8.5-10.1) Phosphorus Level 3.4 mg/dL (2.6-4.7) Magnesium Level 1.8 mg/dL (1.8-2.4) Triglycerides Level 218 mg/dL (0-150) Glucose (Fingerstick) 239 mg/dL (70-99) 263 mg/dL (70-99) O2 Saturation 94 % (92-99) Arterial Blood pH 7.39 (7.35-7.45) Arterial Blood pCO2 at Patient Temp 43 mmHg (35-46) Arterial Blood pO2 at Patient Temp 74 mmHg (65-108) Arterial Blood HCO3 25 mmol/L (21-28) Arterial Blood Base Excess 0 mmol/L (-3-3) FiO2 40/vent Laboratory Tests Test 03/01/21 18:21 03/01/21 21:16 03/01/21 23:58 03/02/21 06:15 Glucose (Fingerstick) 246 mg/dL (70-99) 244 mg/dL (70-99) 286 mg/dL (70-99) Sodium Level 135 mmol/L (136-145) Potassium Level 4.2 mmol/L (3.5-5.1) Chloride Level 102 mmol/L (98-107) Carbon Dioxide Level 29 mmol/L (21-32) Anion Gap 4 (6-14) Blood Urea Nitrogen 15 mg/dL (8-26) Creatinine 0.7 mg/dL (0.7-1.3) Estimated GFR (Cockcroft-Gault) 139.2 Glucose Level 244 mg/dL (70-99) Calcium Level 9.1 mg/dL (8.5-10.1) Phosphorus Level 3.4 mg/dL (2.6-4.7) Magnesium Level 1.8 mg/dL (1.8-2.4) Triglycerides Level 218 mg/dL (0-150) Test 03/02/21 06:21 03/02/21 08:00 03/02/21 13:09 Glucose (Fingerstick) 239 mg/dL (70-99) 263 mg/dL (70-99) O2 Saturation 94 % (92-99) Arterial Blood pH 7.39 (7.35-7.45) Arterial Blood pCO2 at Patient Temp 43 mmHg (35-46) Arterial Blood pO2 at Patient Temp 74 mmHg (65-108) Arterial Blood HCO3 25 mmol/L (21-28) Arterial Blood Base Excess 0 mmol/L (-3-3) FiO2 40/vent Microbiology 02/23/21 Gram Stain - Final, Complete 02/23/21 Aerobic Culture - Final, Complete 02/22/21 Blood Culture - Final, Complete NO GROWTH AFTER 5 DAYS 02/22/21 Gram Stain Evaluation - Final, Complete 02/22/21 Respiratory Culture - Final, Complete Medications Current Medications Nicardipine HCl 50 mg/Sodium Chloride 250 ml @ 12.5 mls/hr CONT PRN IV SEE I/O RECORD Last administered on 02/26/21at 01:20; Start 02/09/21 at 06:15 Labetalol HCl (Normodyne Iv Push) 10 mg PRN Q2HR PRN IVP HYPERTENSION- 1ST CHOICE Last administered on 02/28/21at 11:12; Start 02/09/21 at 06:15 Lorazepam (Ativan Inj) 2 mg 1X ONCE IVP Last administered on 02/09/21at 10:54; Start 02/09/21 at 10:45; Stop 02/09/21 at 10:46; Status DC Lorazepam (Ativan Inj) 2 mg 1X ONCE IVP Last administered on 02/09/21at 11:00; Start 02/09/21 at 11:00; Stop 02/09/21 at 11:01; Status DC Fentanyl Citrate (Fentanyl 2ml Vial) 25 mcg PRN Q2HR PRN IVP MODERATE TO SEVERE PAIN Last administered on 02/09/21at 13:37; Start 02/09/21 at 13:30; Stop 02/18/21 at 22:53; Status DC Info (Review Meds) 1 ea PRN 1X PRN MC SEE COMMENTS; Start 02/09/21 at 15:00 Acetaminophen (Tylenol Supp) 650 mg PRN Q6HRS PRN MI FEVER > 100.5'F or 38'C; Start 02/09/21 at 15:00; Stop 02/11/21 at 21:12; Status DC Albuterol Sulfate (Ventolin Neb Soln) 2.5 mg PRN Q4HRS PRN NEB SHORTNESS OF BREATH; Start 02/09/21 at 15:15 Iohexol (Omnipaque 350 Mg/ml) 75 ml 1X ONCE IV Last administered on 02/09/21at 15:52; Start 02/09/21 at 15:30; Stop 02/09/21 at 15:35; Status DC Iohexol (Omnipaque 350 Mg/ml) 100 ml STK-MED ONCE .ROUTE ; Start 02/09/21 at 15:26; Stop 02/09/21 at 15:27; Status DC Info (CONTRAST GIVEN -- Rx MONITORING) 1 each PRN DAILY PRN MC SEE COMMENTS; Start 02/09/21 at 15:45; Stop 02/11/21 at 15:44; Status DC Propofol 100 ml @ As Directed STK-MED ONCE IV ; Start 02/09/21 at 15:51; Stop 02/09/21 at 15:51; Status DC Rocuronium [place] (Zemuron) 50 mg STK-MED ONCE .ROUTE ; Start 02/09/21 at 15:51; Stop 02/09/21 at 15:51; Status DC Lidocaine HCl (Lidocaine HCl 2% Abboject) 100 mg STK-MED ONCE .ROUTE ; Start 02/09/21 at 15:52; Stop 02/09/21 at 15:53; Status DC Propofol 100 ml @ 3.507 mls/ hr CONT PRN IV PER PROTOCOL Last administered on 03/02/21at 08:26; Start 02/09/21 at 16:15 Lidocaine HCl (Lidocaine HCl 2% Abboject) 100 mg 1X ONCE IV Last administered on 02/09/21at 16:17; Start 02/09/21 at 16:15; Stop 02/09/21 at 16:17; Status DC Rocuronium [place] (Zemuron) 50 mg 1X ONCE IV Last administered on 02/09/21at 16:17; Start 02/09/21 at 16:15; Stop 02/09/21 at 16:17; Status DC Rocuronium [place] (Zemuron) 100 mg STK-MED ONCE .ROUTE ; Start 02/09/21 at 16:31; Stop 02/09/21 at 16:32; Status DC Gelatin (Gelfoam Size 100) 1 each STK-MED ONCE .ROUTE Last administered on 02/09/21at 17:49; Start 02/09/21 at 16:33; Stop 02/09/21 at 16:33; Status DC Bupivacaine HCl/ Epinephrine Bitart (Sensorcain-Epi 0.5%-1:779123 Mpf) 30 ml STK-MED ONCE .ROUTE Last administered on 02/09/21at 17:49; Start 02/09/21 at 16:33; Stop 02/09/21 at 16:33; Status DC Cellulose (Surgicel Hemostat 4x8) 1 each STK-MED ONCE .ROUTE Last administered on 02/09/21at 18:38; Start 02/09/21 at 16:33; Stop 02/09/21 at 16:33; Status DC Thrombin 20,000 unit STK-MED ONCE TP Last administered on 02/09/21at 17:49; Start 02/09/21 at 16:33; Stop 02/09/21 at 16:33; Status DC Fentanyl Citrate (Fentanyl 2ml Vial) 75 mcg 1X ONCE IVP Last administered on 02/09/21at 16:45; Start 02/09/21 at 16:45; Stop 02/09/21 at 16:47; Status DC Propofol (Diprivan) 200 mg 1X ONCE IV ; Start 02/09/21 at 17:15; Stop 02/09/21 at 17:16; Status DC Lidocaine HCl (Lidocaine HCl 2% Abboject) 100 mg 1X ONCE IV ; Start 02/09/21 at 17:15; Stop 02/09/21 at 17:16; Status DC Rocuronium [place] (Zemuron) 50 mg 1X ONCE IV ; Start 02/09/21 at 17:15; Stop 02/09/21 at 17:16; Status DC Propofol 100 ml @ 0 mls/hr CONT PRN PRN IV SEDATION; Start 02/09/21 at 17:15; Stop 02/10/21 at 05:14; Status DC Cefazolin Sodium (Ancef) 1 gm STK-MED ONCE IVP ; Start 02/09/21 at 17:28; Stop 02/09/21 at 17:28; Status DC Fentanyl Citrate (Fentanyl 2ml Vial) 100 mcg STK-MED ONCE .ROUTE ; Start 02/09/21 at 17:43; Stop 02/09/21 at 17:43; Status DC Rocuronium [place] (Zemuron) 100 mg STK-MED ONCE .ROUTE ; Start 02/09/21 at 17:58; Stop 02/09/21 at 17:59; Status DC Vecuronium [place] (Norcuron Bolus) 10 mg STK-MED ONCE IV ; Start 02/09/21 at 18:49; Stop 02/09/21 at 18:50; Status DC Sodium Chloride (SODIUM CHLORIDE 20ml) 20 ml STK-MED ONCE IJ ; Start 02/09/21 at 18:50; Stop 02/09/21 at 18:50; Status DC Sevoflurane (Ultane) 90 ml STK-MED ONCE IH ; Start 02/09/21 at 19:20; Stop 02/09/21 at 19:21; Status DC Fentanyl Citrate 30 ml @ 2.5 mls/hr CONT PRN IV SEE PROTOCOL Last administered on 02/09/21at 23:40; Start 02/09/21 at 23:15; Stop 02/10/21 at 04:43; Status DC Fentanyl Citrate 55 ml @ 0 mls/hr CONT PRN IV SEE I/O Last administered on 03/01/21at 08:14; Start 02/10/21 at 05:00 Potassium Chloride/Dextrose/ Sod Cl 1,000 ml @ 80 mls/hr [id number] IV ; Start 02/10/21 at 09:00; Stop 02/10/21 at 13:21; Status DC Pantoprazole Sodium (PROTONIX VIAL for IV PUSH) 40 mg DAILYAC IVP Last administered on 03/02/21at 08:26; Start 02/10/21 at 09:00 Lidocaine HCl (Buffered Lidocaine 1%) 3 ml STK-MED ONCE .ROUTE ; Start 02/10/21 at 13:18; Stop 02/10/21 at 13:18; Status DC Sodium Chloride 1,000 ml @ 80 mls/hr [id number] IV Last administered on 02/12/21at 03:00; Start 02/10/21 at 13:30; Stop 02/12/21 at 15:36; Status DC Lidocaine HCl (Buffered Lidocaine 1%) 6 ml 1X ONCE INJ Last administered on 02/10/21at 13:57; Start 02/10/21 at 13:45; Stop 02/10/21 at 13:46; Status DC Potassium Chloride/Water 100 ml @ 100 mls/hr Q1H IV Last administered on 02/11/21at 10:07; Start 02/11/21 at 08:00; Stop 02/11/21 at 09:59; Status DC Piperacillin Sod/ Tazobactam Sod 3.375 gm/Sodium Chloride 50 ml @ 100 mls/hr Q6HRS IV Last administered on 03/02/21at 06:16; Start 02/11/21 at 09:00 Info (Tpn Per Pharmacy) 1 each PRN DAILY PRN MC SEE COMMENTS Last administered on 03/02/21at 10:30; Start 02/11/21 at 11:15 Sodium Chloride 90 meq/Potassium Chloride 50 meq/ Potassium Phosphate 13.6 mmol/Magnesium Sulfate 10 meq/ Calcium Gluconate 10 meq/ Multivitamins 5 ml/Zinc/Copper/ Manganese/ Selenium 1 ml/ Total Parenteral Nutrition/Amino Acids/Dextrose 1,512 ml @ 63 mls/hr TPN CONT IV Last administered on 02/11/21at 22:32; Start 02/11/21 at 22:00; Stop 02/12/21 at 21:59; Status DC Furosemide (Lasix) 20 mg 1X ONCE IVP Last administered on 02/11/21at 15:11; Start 02/11/21 at 15:30; Stop 02/11/21 at 15:31; Status DC Furosemide (Lasix) 20 mg 1X ONCE IVP Last administered on 02/11/21at 17:00; Start 02/11/21 at 17:00; Stop 02/11/21 at 17:01; Status DC Midazolam HCl 100 ml @ 1 mls/hr CONT PRN IV SEE PROTOCOL Last administered on 02/13/21at 20:58; Start 02/11/21 at 19:30 Acetaminophen (Tylenol Supp) 650 mg PRN Q6HRS PRN MI MILD PAIN / TEMP > 100.3'F; Start 02/11/21 at 21:15 Sodium Chloride 80 meq/Potassium Chloride 50 meq/ Potassium Phosphate 13.6 mmol/Magnesium Sulfate 6 meq/ Calcium Gluconate 10 meq/ Multivitamins 5 ml/Zinc/Copper/ Manganese/ Selenium 1 ml/ Total Parenteral Nutrition/Amino Acids/Dextrose 1,512 ml @ 63 mls/hr TPN CONT IV Last administered on at 22:09; Start 02/12/21 at 22:00; Stop 02/13/21 at 21:59; Status DC Furosemide (Lasix) 40 mg 1X ONCE IVP Last administered on 02/12/21at 12:44; Start 02/12/21 at 12:30; Stop 02/12/21 at 12:31; Status DC Insulin Human Lispro (HumaLOG) 0-5 UNITS Q6HRS SQ Last administered on 03/02/21at 06:24; Start 02/12/21 at 12:00 Dextrose (Dextrose 50%-Water Syringe) 12.5 gm PRN Q15MIN PRN IV SEE COMMENTS; Start 02/12/21 at 12:15 Clonidine HCl (Catapres Tts-3) 1 patch WEEKLY TD Last administered on 02/27/21at 09:06; Start 02/13/21 at 11:00 Sodium Chloride 80 meq/Potassium Chloride 50 meq/ Potassium Phosphate 13.6 mmol/Magnesium Sulfate 6 meq/ Calcium Gluconate 10 meq/ Multivitamins 5 ml/Zinc/Copper/ Manganese/ Selenium 1 ml/ Total Parenteral Nutrition/Amino Acids/Dextrose 1,512 ml @ 63 mls/hr TPN CONT IV Last administered on 02/13/21at 21:42; Start 02/13/21 at 22:00; Stop 02/14/21 at 21:59; Status DC Potassium Acetate 50 meq/Potassium Phosphate 13.6 mmol/Magnesium Sulfate 6 meq/ Calcium Gluconate 10 meq/ Multivitamins 5 ml/Zinc/Copper/ Manganese/ Selenium 1 ml/ Total Parenteral Nutrition/Amino Acids/Dextrose 1,512 ml @ 63 mls/hr TPN CONT IV Last administered on 02/14/21at 21:59; Start 02/14/21 at 22:00; Stop 02/15/21 at 21:59; Status DC Insulin Glargine (Lantus Syringe) 10 unit QHS SQ Last administered on 02/15/21at 22:11; Start 02/14/21 at 21:00; Stop 02/16/21 at 12:42; Status DC Hydralazine HCl (Apresoline Inj) 10 mg PRN Q4HRS PRN IVP ELEVATED BP, SEE COMMENTS Last administered on 03/01/21at 23:52; Start 02/14/21 at 16:00 Potassium Acetate 50 meq/Potassium Phosphate 13.6 mmol/Magnesium Sulfate 6 meq/ Calcium Gluconate 10 meq/ Multivitamins 5 ml/Zinc/Copper/ Manganese/ Selenium 1 ml/ Total Parenteral Nutrition/Amino Acids/Dextrose 1,512 ml @ 63 mls/hr TPN CONT IV Last administered on 02/15/21at 22:13; Start 02/15/21 at 22:00; Stop 02/16/21 at 21:59; Status DC Dexmedetomidine HCl 400 mcg/ Sodium Chloride 100 ml @ 0 mls/hr CONT PRN IV PER PROTOCOL Last administered on 03/02/21at 08:27; Start 02/15/21 at 14:15 Sodium Chloride 500 ml @ 500 mls/hr 1X PRN PRN IV SEE COMMENTS; Start 02/15/21 at 14:15 Atropine Sulfate (ATROPINE 0.5mg SYRINGE) 0.5 mg PRN Q5MIN PRN IV SEE COMMENTS; Start 02/15/21 at 14:15 Potassium Acetate 50 meq/Potassium Phosphate 13.6 mmol/Magnesium Sulfate 6 meq/ Calcium Gluconate 10 meq/ Multivitamins 5 ml/Zinc/Copper/ Manganese/ Selenium 1 ml/ Total Parenteral Nutrition/Amino Acids/Dextrose 1,512 ml @ 63 mls/hr TPN CONT IV Last administered on 02/16/21at 22:59; Start 02/16/21 at 22:00; Stop 02/17/21 at 21:59; Status DC Insulin Glargine (Lantus Syringe) 14 unit QHS SQ Last administered on 02/16/21at 21:14; Start 02/16/21 at 21:00; Stop 02/17/21 at 14:15; Status DC Potassium Acetate 50 meq/Potassium Phosphate 13.6 mmol/Magnesium Sulfate 6 meq/ Calcium Gluconate 10 meq/ Multivitamins 5 ml/Zinc/Copper/ Manganese/ Selenium 1 ml/ Total Parenteral Nutrition/Amino Acids/Dextrose 1,512 ml @ 63 mls/hr TPN CONT IV Last administered on 02/17/21at 20:48; Start 02/17/21 at 22:00; Stop 02/18/21 at 21:59; Status DC Dextrose 1,000 ml @ 75 mls/hr [id number] IV Last administered on 02/18/21at 13:51; Start 02/17/21 at 10:30; Stop 02/19/21 at 12:57; Status DC Insulin Glargine (Lantus Syringe) 18 unit QHS SQ Last administered on 02/17/21at 20:46; Start 02/17/21 at 21:00; Stop 02/18/21 at 11:56; Status DC Insulin Glargine (Lantus Syringe) 22 unit QHS SQ Last administered on 02/18/21at 21:00; Start 02/18/21 at 21:00; Stop 02/19/21 at 14:08; Status DC Potassium Acetate 50 meq/Potassium Phosphate 13.6 mmol/Magnesium Sulfate 6 meq/ Calcium Gluconate 10 meq/ Multivitamins 5 ml/Zinc/Copper/ Manganese/ Selenium 1 ml/ Total Parenteral Nutrition/Amino Acids/Dextrose 1,512 ml @ 63 mls/hr TPN CONT IV Last administered on 02/18/21at 21:43; Start 02/18/21 at 22:00; Stop 02/19/21 at 21:59; Status DC Potassium Acetate 50 meq/Potassium Phosphate 13.6 mmol/Magnesium Sulfate 6 meq/ Calcium Gluconate 10 meq/ Multivitamins 5 ml/Zinc/Copper/ Manganese/ Selenium 1 ml/ Total Parenteral Nutrition/Amino Acids/Dextrose 2,040 ml @ 85 mls/hr TPN CONT IV Last administered on 02/19/21at 20:56; Start 02/19/21 at 22:00; Stop 02/20/21 at 21:59; Status DC Insulin Glargine (Lantus Syringe) 25 unit QHS SQ Last administered on 02/20/21at 22:11; Start 02/19/21 at 21:00; Stop 02/21/21 at 10:10; Status DC Acetaminophen (Tylenol) 650 mg PRN Q6HRS PRN PEG MILD PAIN / TEMP > 100.3'F Last administered on 02/22/21at 08:10; Start 02/19/21 at 18:00 Potassium Acetate 50 meq/Potassium Phosphate 13.6 mmol/Magnesium Sulfate 6 meq/ Calcium Gluconate 10 meq/ Multivitamins 5 ml/Zinc/Copper/ Manganese/ Selenium 1 ml/ Total Parenteral Nutrition/Amino Acids/Dextrose 2,040 ml @ 85 mls/hr TPN C ONT IV Last administered on 02/20/21at 22:10; Start 02/20/21 at 22:00; Stop 02/21/21 at 21:59; Status DC Insulin Glargine (Lantus Syringe) 27 unit QHS SQ Last administered on 03/01/21at 21:18; Start 02/21/21 at 21:00 Magnesium Sulfate 50 ml @ 25 mls/hr 1X ONCE IV Last administered on 02/21/21at 11:30; Start 02/21/21 at 11:00; Stop 02/21/21 at 12:59; Status DC Potassium Acetate 50 meq/Potassium Phosphate 13.6 mmol/Magnesium Sulfate 8 meq/ Calcium Gluconate 10 meq/ Multivitamins 5 ml/Zinc/Copper/ Manganese/ Selenium 1 ml/ Total Parenteral Nutrition/Amino Acids/Dextrose 2,040 ml @ 85 mls/hr TPN CONT IV Last administered on 02/21/21at 21:23; Start 02/21/21 at 22:00; Stop 02/22/21 at 21:59; Status DC Daptomycin 570 mg/ Sodium Chloride 50 ml @ 100 mls/hr Q24H IV Last administered on 02/24/21at 13:10; Start 02/22/21 at 12:00; Stop 02/25/21 at 10:34; Status DC Linezolid/Dextrose 300 ml @ 300 mls/hr Q12HR IV Last administered on 03/02/21at 08:26; Start 02/22/21 at 09:00; Stop 03/02/21 at 08:42; Status DC Potassium Acetate 50 meq/Potassium Phosphate 13.6 mmol/Magnesium Sulfate 8 meq/ Calcium Gluconate 5 meq/ Multivitamins 5 ml/Zinc/Copper/ Manganese/ Selenium 1 ml/ Total Parenteral Nutrition/Amino Acids/Dextrose 2,040 ml @ 85 mls/hr TPN CONT IV Last administered on 02/22/21at 21:32; Start 02/22/21 at 22:00; Stop 02/23/21 at 21:59; Status DC Fentanyl Citrate (Fentanyl 2ml Vial) 25 mcg PRN Q5MIN PRN IVP MILD PAIN 1-3; Start 02/23/21 at 06:00; Stop 02/24/21 at 05:59; Status DC Fentanyl Citrate (Fentanyl 2ml Vial) 50 mcg PRN Q5MIN PRN IVP MODERATE PAIN 4- 6; Start 02/23/21 at 06:00; Stop 02/24/21 at 05:59; Status DC Morphine Sulfate (Morphine Sulfate) 1 mg PRN Q10MIN PRN IVP SEVERE PAIN 7-10; Start 02/23/21 at 06:00; Stop 02/24/21 at 05:59; Status DC Ringer's Solution 1,000 ml @ 30 mls/hr Q24H IV Last administered on 02/23/21at 11:00; Start 02/23/21 at 06:00; Stop 02/23/21 at 17:59; Status DC Hydromorphone HCl (Dilaudid) 0.5 mg PRN Q10MIN PRN IVP SEVERE PAIN 7-10, 2nd CHOICE; Start 02/23/21 at 06:00; Stop 02/24/21 at 05:59; Status DC Prochlorperazine Edisylate (Compazine) 5 mg PACU PRN PRN IVP NAUSEA, MRX1; Start 02/23/21 at 06:00; Stop 02/24/21 at 05:59; Status DC Cellulose (Surgicel Fibrillar 1x2) 1 each STK-MED ONCE .ROUTE ; Start 02/23/21 at 08:23; Stop 02/23/21 at 08:23; Status DC Lidocaine/ Epinephrine (LIDOCAINE 1%-EPI 1:100,000 Multi-Dose) 20 ml STK-MED ONCE .ROUTE Last administered on 02/23/21at 13:33; Start 02/23/21 at 08:23; Stop 02/23/21 at 08:23; Status DC Potassium Acetate 50 meq/Potassium Phosphate 13.6 mmol/Magnesium Sulfate 8 meq/ Calcium Gluconate 5 meq/ Multivitamins 5 ml/Zinc/Copper/ Manganese/ Selenium 1 ml/ Total Parenteral Nutrition/Amino Acids/Dextrose 2,040 ml @ 85 mls/hr TPN CONT IV ; Start 02/23/21 at 22:00; Stop 02/24/21 at 21:59; Status DC Rocuronium [place] (Zemuron) 50 mg STK-MED ONCE .ROUTE ; Start 02/23/21 at 12:13; Stop 02/23/21 at 12:13; Status DC Fentanyl Citrate (Fentanyl 2ml Vial) 100 mcg STK-MED ONCE .ROUTE ; Start 02/23/21 at 12:24; Stop 02/23/21 at 12:24; Status DC Insulin Human Lispro (HumaLOG VIAL for OP,RR ONLY) 0-10 units PRN Q1HR PRN SQ PER PROTOCOL Last administered on 02/23/21at 13:00; Start 02/23/21 at 13:15; Stop 02/24/21 at 13:14; Status DC Rocuronium [place] (Zemuron) 100 mg STK-MED ONCE .ROUTE ; Start 02/23/21 at 13:22; Stop 02/23/21 at 13:23; Status DC Albuterol Sulfate (Ventolin Hfa) 60 puff STK-MED ONCE INH ; Start 02/23/21 at 13:47; Stop 02/23/21 at 13:48; Status DC Sevoflurane (Ultane) 60 ml STK-MED ONCE IH ; Start 02/23/21 at 14:21; Stop at 14:21; Status DC Potassium Acetate 50 meq/Potassium Phosphate 13.6 mmol/Magnesium Sulfate 8 meq/ Calcium Gluconate 5 meq/ Multivitamins 5 ml/Zinc/Copper/ Manganese/ Selenium 1 ml/ Total Parenteral Nutrition/Amino Acids/Dextrose 2,040 ml @ 85 mls/hr TPN CONT IV ; Start 02/25/21 at 22:00; Stop 02/26/21 at 21:59; Status DC Potassium Acetate 50 meq/Potassium Phosphate 13.6 mmol/Magnesium Sulfate 8 meq/ Calcium Gluconate 5 meq/ Multivitamins 5 ml/Zinc/Copper/ Manganese/ Selenium 1 ml/ Total Parenteral Nutrition/Amino Acids/Dextrose 2,040 ml @ 85 mls/hr TPN CONT IV Last administered on 02/26/21at 21:27; Start 02/26/21 at 22:00; Stop 02/27/21 at 21:59; Status DC Potassium Acetate 50 meq/Potassium Phosphate 13.6 mmol/Magnesium Sulfate 8 meq/ Calcium Gluconate 5 meq/ Multivitamins 5 ml/Zinc/Copper/ Manganese/ Selenium 1 ml/ Total Parenteral Nutrition/Amino Acids/Dextrose 2,040 ml @ 85 mls/hr TPN CONT IV Last administered on 02/27/21at 21:01; Start 02/27/21 at 22:00; Stop 02/28/21 at 21:59; Status DC Potassium Acetate 50 meq/Potassium Phosphate 13.6 mmol/Magnesium Sulfate 8 meq/ Calcium Gluconate 5 meq/ Multivitamins 5 ml/Zinc/Copper/ Manganese/ Selenium 1 ml/ Total Parenteral Nutrition/Amino Acids/Dextrose 2,040 ml @ 85 mls/hr TPN CONT IV Last administered on 02/28/21at 21:44; Start 02/28/21 at 22:00; Stop 03/01/21 at 21:59; Status DC Potassium Acetate 50 meq/Potassium Phosphate 13.6 mmol/Magnesium Sulfate 8 meq/ Calcium Gluconate 5 meq/ Multivitamins 5 ml/Zinc/Copper/ Manganese/ Selenium 1 ml/ Total Parenteral Nutrition/Amino Acids/Dextrose 2,040 ml @ 85 mls/hr TPN CONT IV Last administered on 03/01/21at 21:22; Start 03/01/21 at 22:00; Stop 03/02/21 at 21:59 Potassium Acetate 50 meq/Potassium Phosphate 13.6 mmol/Magnesium Sulfate 8 meq/ Multivitamins 5 ml/Zinc/Copper/ Manganese/ Selenium 1 ml/ Total Parenteral Nutrition/Amino Acids/Dextrose 2,040 ml @ 85 mls/hr TPN CONT IV ; Start 03/02/21 at 22:00; Stop 03/03/21 at 21:59 Vitals/I & O Vital Sign - Last 24 Hours 03/01/21 03/01/21 03/01/21 03/01/21 13:55 14:00 15:00 15:46 Pulse 59 58 Resp 14 13 B/P (MAP) 159/90 (113) 160/91 (114) Pulse Ox 100 100 100 100 O2 Delivery Ventilator Ventilator Ventilator Ventilator 03/01/21 03/01/21 03/01/21 03/01/21 16:00 16:00 17:00 18:00 Temp 99.0 99.0 Pulse 64 63 60 Resp 14 12 10 B/P (MAP) 160/85 (110) 168/93 (118) 175/96 (122) Pulse Ox 100 100 100 O2 Delivery Ventilator Mechanical Ventilator Ventilator Ventilator 03/01/21 03/01/21 03/01/21 03/01/21 18:17 19:00 20:00 20:00 Temp 98.7 98.7 Pulse 66 66 Resp 12 12 B/P (MAP) 189/97 (127) 180/90 (120) Pulse Ox 100 100 100 O2 Delivery Ventilator Ventilator Ventilator Mechanical Ventilator 03/01/21 03/01/21 03/01/21 03/01/21 20:45 21:00 22:00 23:00 Pulse 64 65 61 Resp 12 18 19 B/P (MAP) 170/90 (116) 166/84 (111) 170/90 (116) Pulse Ox 100 100 100 100 O2 Delivery Ventilator Ventilator Ventilator Ventilator 03/01/21 03/01/21 03/01/21 03/01/21 23:52 23:55 23:59 23:59 Temp 98.2 98.2 Pulse 65 61 Resp 19 B/P (MAP) 166/95 170/90 (116) Pulse Ox 100 100 O2 Delivery Ventilator Mechanical Ventilator Ventilator 03/02/21 03/02/21 03/02/21 03/02/21 01:00 02:00 02:46 03:00 Pulse 62 63 67 Resp 19 19 18 B/P (MAP) 180/89 (119) 158/86 (110) 148/84 (105) Pulse Ox 100 100 100 100 O2 Delivery Ventilator Ventilator Ventilator Ventilator 03/02/21 03/02/21 03/02/21 03/02/21 04:00 04:00 05:00 05:42 Temp 98.5 98.5 Pulse 62 61 Resp 18 18 B/P (MAP) 147/82 (103) 164/88 (113) Pulse Ox 100 100 100 O2 Delivery Ventilator Mechanical Ventilator Ventilator Ventilator 03/02/21 03/02/21 03/02/21 03/02/21 06:00 07:00 07:28 08:00 Temp 98.8 98.8 Pulse 62 67 67 Resp 18 18 18 B/P (MAP) 143/78 (99) 145/85 (105) 145/85 (105) Pulse Ox 100 100 100 100 O2 Delivery Ventilator Ventilator Ventilator Ventilator 03/02/21 03/02/21 03/02/21 03/02/21 08:00 09:00 09:19 10:00 Pulse 67 68 Resp 18 18 B/P (MAP) 170/92 (118) 161/92 (115) Pulse Ox 100 100 100 O2 Delivery Mechanical Ventilator Ventilator Ventilator Ventilator 03/02/21 03/02/21 11:00 11:12 Pulse 66 Resp 16 B/P (MAP) 160/89 (112) Pulse Ox 100 100 O2 Delivery Ventilator Ventilator Intake and Output 03/01/21 03/01/21 03/02/21 15:00 23:00 07:00 Intake Total 1884 ml 1757 ml Output Total 1200 ml 550 ml 745 ml Balance -1200 ml 1334 ml 1012 ml Justifications for Admission Other Justification HILDA [facility]OCK [facility] DEC[employer]PER Mar 02, 2021 13:22
--- NOTE | 2021-03-02 15:25 | NUR ---
SS following up with discharge planning. SS reviewed pt chart and discussed with RN. Pt is currently on the vent at 40%. COVID19 negative. Pt on TPN and IV Zosyn. Pt on Fentanyl, Propofol, and Precedex. Trach in place. Self pay. Medicaid pending. Med Assist following. Not stable. SS will continue to follow for discharge planning.
[2021-03-02] MEDS: INSULIN GLARGINE SYRINGE. SQ SCH (21:10)
[2021-03-02] MEDS ORDERED: DEXTROSE 70% IV SCH (22:00)
[2021-03-02] MEDS ORDERED: [UNRECOGNIZED DRUG - OTHER] IV SCH (22:00)
[2021-03-02] MEDS ORDERED: TOTAL PARENTERAL NUTRITION IV SCH (22:00)
[2021-03-02] MEDS ORDERED: AMINO ACID IV SCH (22:00)
[2021-03-03] VITALS (24 sets, daily range): BP systolic 100–175; BP diastolic 3–100
[2021-03-03] MEDS: DEXMEDETOMIDINE 400 MCG in IV NORMAL SALINE 100ML 96 ML IV PRN ×5 (01:13→23:42)
[2021-03-03] MEDS: PROPOFOL 100 ML IV PRN ×5 (02:14→22:17)
[2021-03-03] MEDS: PIPERACILLIN/TAZOBACTAM 3.375 GM in IV NORMAL SALINE 50ML 50 ML IV SCH ×4 (06:08→23:35)
[2021-03-03] MEDS: INSULIN LISPRO 300 UNITS/3 ML VIAL. SQ SCH ×4 (06:09→23:36)
[2021-03-03 06:20] LABS: CREATININE 0.8 mg/dL (0.7-1.3); GFR 119.3; POTASSIUM 3.8 mmol/L (3.5-5.1)
--- NOTE | 2021-03-03 08:40 | PDOC ---
Infectious Disease Note Subjective: Subjective Pt intubated ,sedated No new issues per discussion with RN Vital Signs: Vital Signs Vital Signs Date Time Temp Pulse Resp B/P (MAP) Pulse Ox O2 Delivery O2 Flow Rate FiO2 03/03/21 07:42 100 Ventilator 03/03/21 07:00 56 16 123/72 (89) 03/03/21 04:00 98.8 98.8 Physical Exam: PHYSICAL EXAM GENERAL: Sedated on vent, patient is not following commands HEENT: no icterus,NGT + NECK trach present LUNGS: Decreased breath sound at bases HEART: S1, S2 bradycardia ABDOMEN: Soft, nontender, mildly distended EXTREMITIES: + edema, no cyanosis. SKIN:no gen rash NEUROLOGIC: unable to assess Right IJ taken out RT PICC Line clean Medications: Inpatient Meds: Medications reviewed. Labs: Lab Laboratory Tests Test 03/02/21 13:09 03/02/21 18:20 03/02/21 23:30 03/03/21 05:51 Glucose (Fingerstick) 263 mg/dL (70-99) 260 mg/dL (70-99) 248 mg/dL (70-99) 216 mg/dL (70-99) Test 03/03/21 05:59 Sodium Level 135 mmol/L (136-145) Potassium Level 3.8 mmol/L (3.5-5.1) Chloride Level 102 mmol/L (98-107) Carbon Dioxide Level 30 mmol/L (21-32) Anion Gap 3 (6-14) Blood Urea Nitrogen 19 mg/dL (8-26) Creatinine 0.8 mg/dL (0.7-1.3) Estimated GFR (Cockcroft-Gault) 119.3 Glucose Level 210 mg/dL (70-99) Calcium Level 9.0 mg/dL (8.5-10.1) Objective: Assessment: 1. Fever.resolved,cult neg 2. Acute hypoxic respiratory failure status post intubation suspected aspiration.sputum cultures NRF 3. Intracranial bleed with mass effect, status post craniotomy and hematoma evacuation. Repeat CT head noted 4. Encephalopathy, 5. Respiratory failure. 6. Hypertension. 7. Chronic obstructive pulmonary disease. 8. MARVIN improved U/S BUE to neg for DVT Plan: Plan of Care cont Zosyn completed zyvox On TPN Monitor labs and cults cont supportive care Prognosis poor Discussed with nursing staff RAMU DELGADO MD Mar 03, 2021 08:40
--- NOTE | 2021-03-03 09:09 | PDOC ---
PULMONARY PROGRESS NOTES DATE: 03/03/21 TIME: 09:08 Subjective No overnight events status post tracheotomy on 02/23 Currently sedate Does not do well off sedation Vitals Vital Signs Date Time Temp Pulse Resp B/P (MAP) Pulse Ox O2 Delivery O2 Flow Rate FiO2 03/03/21 07:42 100 Ventilator 03/03/21 07:00 56 16 123/72 (89) 03/03/21 04:00 98.8 98.8 Comments ros unable to obtain intubated on vent Lungs: Clear Cardiovascular: S1, S2 Abdomen: Soft, Non-tender Extremities: No Edema Skin: Warm Labs Laboratory Tests Test 03/01/21 12:19 03/01/21 18:21 03/01/21 21:16 03/01/21 23:58 Glucose (Fingerstick) 257 mg/dL (70-99) 246 mg/dL (70-99) 244 mg/dL (70-99) 286 mg/dL (70-99) Test 03/02/21 06:15 03/02/21 06:21 03/02/21 08:00 03/02/21 13:09 Sodium Level 135 mmol/L (136-145) Potassium Level 4.2 mmol/L (3.5-5.1) Chloride Level 102 mmol/L (98-107) Carbon Dioxide Level 29 mmol/L (21-32) Anion Gap 4 (6-14) Blood Urea Nitrogen 15 mg/dL (8-26) Creatinine 0.7 mg/dL (0.7-1.3) Estimated GFR (Cockcroft-Gault) 139.2 Glucose Level 244 mg/dL (70-99) Calcium Level 9.1 mg/dL (8.5-10.1) Phosphorus Level 3.4 mg/dL (2.6-4.7) Magnesium Level 1.8 mg/dL (1.8-2.4) Triglycerides Level 218 mg/dL (0-150) Glucose (Fingerstick) 239 mg/dL (70-99) 263 mg/dL (70-99) O2 Saturation 94 % (92-99) Arterial Blood pH 7.39 (7.35-7.45) Arterial Blood pCO2 at Patient Temp 43 mmHg (35-46) Arterial Blood pO2 at Patient Temp 74 mmHg (65-108) Arterial Blood HCO3 25 mmol/L (21-28) Arterial Blood Base Excess 0 mmol/L (-3-3) FiO2 40/vent Test 03/02/21 18:20 03/02/21 23:30 03/03/21 05:51 03/03/21 05:59 Glucose (Fingerstick) 260 mg/dL (70-99) 248 mg/dL (70-99) 216 mg/dL (70-99) Sodium Level 135 mmol/L (136-145) Potassium Level 3.8 mmol/L (3.5-5.1) Chloride Level 102 mmol/L (98-107) Carbon Dioxide Level 30 mmol/L (21-32) Anion Gap 3 (6-14) Blood Urea Nitrogen 19 mg/dL (8-26) Creatinine 0.8 mg/dL (0.7-1.3) Estimated GFR (Cockcroft-Gault) 119.3 Glucose Level 210 mg/dL (70-99) Calcium Level 9.0 mg/dL (8.5-10.1) Laboratory Tests Test 03/02/21 13:09 03/02/21 18:20 03/02/21 23:30 03/03/21 05:51 Glucose (Fingerstick) 263 mg/dL (70-99) 260 mg/dL (70-99) 248 mg/dL (70-99) 216 mg/dL (70-99) Test 03/03/21 05:59 Sodium Level 135 mmol/L (136-145) Potassium Level 3.8 mmol/L (3.5-5.1) Chloride Level 102 mmol/L (98-107) Carbon Dioxide Level 30 mmol/L (21-32) Anion Gap 3 (6-14) Blood Urea Nitrogen 19 mg/dL (8-26) Creatinine 0.8 mg/dL (0.7-1.3) Estimated GFR (Cockcroft-Gault) 119.3 Glucose Level 210 mg/dL (70-99) Calcium Level 9.0 mg/dL (8.5-10.1) Comments CXR 02/21/21 IMPRESSION: 1. Stable life support devices. 2. Improving bibasilar opacities.. CXR 02/18/21 IMPRESSION: Unchanged bibasilar opacities. Recommend follow-up to ensure resolution, particularly of focal opacities in the right lung base. CXR 02/17/21 IMPRESSION: 1. Stable life support devices. 2. Stable bibasilar opacities. 3. Stable small left pleural effusion. IMPRESSION: Chest x-ray 02/13 1. Stable support lines and tubes. 2. Severe right upper lobe predominant bullous emphysema. 3. Stable right perihilar linear atelectasis or infiltrate superimposed on diffuse interstitial prominence and small pleural effusions. Impression . IMPRESSION: 1. Acute hypoxic respiratory failure multifactorial, predominantly to intraparenchymal cerebral hematoma. Status post tracheostomy 02/[address] reveals evidence of a new moderate-sized stroke of frontal lobe, per neurology 3. Long history of tobaccoism. CT angiogram showed bullous emphysema in the upper lobes. 3. Acute kidney injury--resolved 4. Leukocytosis--resolved 5. s/p Right occipital craniotomy with evacuation of intracerebral hematoma. 02/09/21 6. Encephalopathy, multifactorial--ongoing 7. Uncontrolled hypertension 8. Fever, per ID 9. Status post tracheotomy 02/23 CT head 02/13, IMPRESSION: 1. Expected interval evolution of a right posterior temporal/occipital intraparenchymal hematoma status post decompressive craniotomy. 2. Expected evolution of a small amount of subarachnoid and intraventricular clot. DATE OF SURGERY: 02/09/2021 PREOPERATIVE DIAGNOSIS: Right posterior temporoparietal occipital intracerebral hemorrhage with neurologic deterioration. POSTOPERATIVE DIAGNOSIS: Right posterior temporoparietal occipital intracerebral hemorrhage with neurologic deterioration. OPERATION PERFORMED: Right occipital craniotomy with evacuation of intracerebral hematoma. Plan . Updated 03/03 Continue current support Follow neurology input Antibiotics per ID DVT GI prophylaxis Nutritional support Updated 03/02 Continue current support, status post tracheotomy Neurology's note appreciated, new frontal lobe stroke on most recent CT, prognosis for meaningful recovery is poor Discussed with RN, difficult to decrease sedation Antibody to biotics per ID Updated 03/01 Continue current support Antibiotics per ID Patient does not do well off of sedation DVT GI prophylaxis MANJULA Alcaraz MD Mar 03, 2021 09:09
[2021-03-03] MEDS: PANTOPRAZOLE IV PUSH 40 MG VIAL. IVP SCH (09:11)
[2021-03-03] MEDS: TPN PER PHARMACY MC PRN (09:12)
--- NOTE | 2021-03-03 09:15 | NUR ---
Pharmacy TPN Dosing Note S: COOPER CHAVEZ is a 61 year old M Currently receiving Central Continuous TPN started 02/11/21 B:Pertinent PMH: ILEUS, UNABLE TO START TUBE FEEDS Height: 6 feet, 2 inches Weight: 114.7 kg Current diet: NPO LABS: Sodium: 135 Potassium: 3.8 Chloride: 102 Calcium: 9.0 Corrected Calcium: 10.52 Magnesium: 1.8 CO2: 30 SCr: 0.8 Glucose: 210-263 Albumin: 2.1 AST: 35 ALT: 67 TPN FORMULA: TPN TYPE: Central Continuous AMINO ACIDS: 98 gm DEXTROSE: 255 gm POTASSIUM ACETATE: 50 mEq POTASSIUM PHOSPHATE: 13.6 mmol MAGNESIUM: 8 mEq MULTIPLE VITAMIN: 5 ml TRACE ELEMENTS: 1 ml ml(s) TPN PLAN: Hypernatremia has corrected; total volume/rate of TPN to be reduced to 1800ml (75ml/hr) for tonight's bag. R: Change TPN per plan and ordered formula. Will monitor electrolytes, glucose, and tolerance to TPN. Neelima Gentile RPH, 03/03/21 0915
[2021-03-03] MEDS: POLYETHYLENE GLYCOL 3350 17 GM PACKET. PO SCH (09:44)
[2021-03-03] MEDS: DOCUSATE 100 MG/10 ML SOLUTION. PO SCH (09:44)
--- NOTE | 2021-03-03 11:19 | PDOC ---
[facility] PROGRESS NOTE Date of Service DOS: DATE: 03/03/21 TIME: 11:17 Chief Complaint Chief Complaint Respiratory failure requiring intubation Status post tracheostomy CARD LACER hemorrhage Status post craniotomy 02/09/2021 Obesity Aspiration Hypertension COPD Acute kidney injury Severe malnutrition History of Present Illness History of Present Illness 03/03/2021 Patient seen and examined in the ICU He has a clean dry intact tracheostomy Currently on spontaneous respirations with 10 of pressure support 40% FiO2 Discussed with RN Chart reviewed Has TPN hanging Sedated with fentanyl propofol and Precedex OG feeds are to suction SCDs in place Moore to bedside drainage He remains critically ill 03/02/2021 Patient seen and examined in the ICU We just changed him over to spontaneous respirations with 10 of pressure support and 40% FiO2 Discussed with RN and respiratory therapy He has been able to be on spontaneous respirations during the daytime for the past 3 days but we have placed him back on assist-control at nighttime Trach is clean and in tact Has Moore to bedside drainage SCDs in place OG is to suction Has IV TPN Has IV Zyvox Sedated with Precedex and propofol 03/01/2021 Patient seen and examined in the ICU He remains mechanically ventilated AC/16/500/40 5% with 5 of PEEP trach appears clean dry and intact He is a Moore bedside drainage Sedated with fentanyl and propofol Has TPN hanging Discussed with RN Discussed with case management Chart reviewed He remains very critically ill 02/28/2021 Patient seen and examined in the ICU He remains mechanically ventilated Has a tracheostomy in place Vent settings as follows AC/16/500/45/5 of PEEP Has SCDs in place Moore is to bedside drainage Sedated with Precedex fentanyl and propofol Has IV TPN Chart reviewed Discussed with RN He remains critically 02/27/2021 Patient seen and examined in the ICU He remains mechanically ventilated AC/16/500/40 5% with 5 of PEEP Has tracheostomy in place Has TPN running SCDs are in place Moore to bedside drainage Sedated with fentanyl and propofol Discussed with RN Chart reviewed He remains critically 02/26/2021: Low-grade fever overnight (99.6 F). On vent with FiO2 40%, PEEP 5. S/p tracheostomy 02/23. Per RN, some hypertension overnight (systolic BP 203) requiring IV nicardipine, but this has been titrated down and now able to resume as needed hydralazine. Recommend keep nicardipine on standby to maintain blood pressure <150/90 mmHg. Continue TPN but will likely need PEG tube and eventually long-term acute care. Due to low-grade fever, lines are being changed. Continue Zosyn and Zyvox, per ID. Critical care time 30 minutes spent reviewing charts, reviewing imaging, reviewing labs, and discussion with RN. 02/25/2021: Remains on vent with FiO2 40%, PEEP 5. Afebrile. Plan for follow-up CT head on Saturday. Continue Zosyn, per ID. Blood glucose well controlled. Critical care time 30 minutes spent reviewing charts, reviewing imaging, reviewing labs, and discussion with RN. 02/24/2021: Afebrile. Had tracheostomy performed yesterday. On vent with FiO2 40%, PEEP 5. Continue antibiotics, per ID. Critical care time 30 minutes reviewing labs, reviewing imaging, reviewing charts, discussed with RN. 02/23/2021: Patient remains intubated in ICU, FiO2 40%, PEEP 5. I believe plan is for trach today. Continue daptomycin, Zosyn, and Zyvox, per ID. Critical care time 30 minutes spent reviewing charts, reviewing labs, reviewing imaging, discussion with RN. 02/22/2011: Patient ange intubated in ICU. Febrile today, T-max 100.3. FiO2 40, PEEP 5. Continue treatment with Zosyn, per ID. Continue to wean sedation as tolerated. Plan for trach tomorrow. Critical care time 30 minutes spent revi freeman chart, reviewing labs, imaging, and discussion with RN. 02/21/2021: Patient remains intubated in ICU, FiO2 40%, PEEP 5. Afebrile. POD #12, s/p right occipital craniotomy with evacuation of intracerebral hematoma (02/09/21). Chest x-ray today shows improving bibasilar opacities. Continue Zosyn, per ID. Critical care time 30 minutes spent reviewing charts, reviewing labs, reviewing imaging, discussion with RN. 02/20/2021: POD #11 Right occipital craniotomy with evacuation of intracerebral hematoma (02/09/21). Remains sedated on ventilator, FiO2 40%, PEEP 5. Chest x- ray from 02/18 showed unchanged bibasilar opacities; recommending follow-up to ensure resolution, particularly of focal opacities in the right lung base. Continue Zosyn. Continue supportive care. Critical care time 30 minutes spent reviewing charts, reviewing labs, reviewing imaging, discussion with RN. 02/19/2021 POD #11 Right occipital craniotomy with evacuation of intracerebral hematoma sedated on vent Patient seen and examined at bedside Continue antibiotics per infectious disease Weaning ventilator and sedation as tolerated extubation in the next few days Plan of care discussed with bedside nurse Expected interval evolution of a right posterior temporal/occipital intraparenchymal hematoma status post decompressive craniotomy Large right temporo-occipital intraparenchymal bleed, most likely lobar hemorrh age from hypertension, consider venous sinus thrombosis, less likely in this location, aneurysmal bleed, head trauma (also unlikely). craniotomy 7/ evening Suspect of aspiration, respiratory failure, hypertension, chronic obstructive pulmonary disease, improving acute kidney injury cont Zosyn glucose uncontrolled add Lantus 22 UNITS SQ HS elevated troponin suspect stress induced ischemia 36 MIN CC TIME 02/18/2021 POD #10 Right occipital craniotomy with evacuation of intracerebral hematoma sedated on vent Patient seen and examined at bedside Continue antibiotics per infectious disease Weaning ventilator and sedation as tolerated extubation in the next few days Plan of care discussed with bedside nurse Expected interval evolution of a right posterior temporal/occipital intraparenchymal hematoma status post decompressive craniotomy Large right temporo-occipital intraparenchymal bleed, most likely lobar hemorrhage from hypertension, consider venous sinus thrombosis, less likely in this location, aneurysmal bleed, head trauma (also unlikely). Had craniotomy 7/ evening Suspect of aspiration, respiratory failure, hypertension, chronic obstructive pulmonary disease, improving acute kidney injury cont Zosyn glucose uncontrolled add Lantus 22 UNITS SQ HS 34 MIN CC TIME 02/17/2021 POD #8 Right occipital craniotomy with evacuation of intracerebral hematoma sedated on vent Patient seen and examined at bedside Good response to IV Lasix Continue antibiotics per infectious disease Weaning ventilator and sedation as tolerated extubation in the next few days Plan of care discussed with bedside nurse Expected interval evolution of a right posterior temporal/occipital intraparenchymal hematoma status post decompressive craniotomy Large right temporo-occipital intraparenchymal bleed, most likely lobar hemorrhage from hypertension, consider venous sinus thrombosis, less likely in this location, aneurysmal bleed, head trauma (also unlikely). Had craniotomy 7/ evening Suspect of aspiration, respiratory failure, hypertension, chronic obstructive pulmonary disease, improving acute kidney injury cont Zosyn glucose uncontrolled add Lantus 18 UNITS SQ HS 33 MIN CC TIME 02/16/2021 POD #7 Right occipital craniotomy with evacuation of intracerebral hematoma sedated on vent Patient seen and examined at bedside Good response to IV Lasix Continue antibiotics per infectious disease Weaning ventilator and sedation as tolerated extubation in the next few days Plan of care discussed with bedside nurse Expected interval evolution of a right posterior temporal/occipital intraparenchymal hematoma status post decompressive craniotomy Large right temporo-occipital intraparenchymal bleed, most likely lobar hemorrhage from hypertension, consider venous sinus thrombosis, less likely in this location, aneurysmal bleed, head trauma (also unlikely). Had craniotomy / evening Suspect of aspiration, respiratory failure, hypertension, chronic obstructive pulmonary disease, improving acute kidney injury cont Zosyn glucose uncontrolled add Lantus 14 UNITS SQ HS 35 MIN CC TIME 02/15/2021 POD #6 Right occipital craniotomy with evacuation of intracerebral hematoma sedated on vent Patient seen and examined at bedside Good response to IV Lasix Continue antibiotics per infectious disease Weaning ventilator and sedation as tolerated Hopeful extubation in the next few days Plan of care discussed with bedside nurse Expected interval evolution of a right posterior temporal/occipital intraparenchymal hematoma status post decompressive craniotomy Large right temporo-occipital intraparenchymal bleed, most likely lobar hemorrhage from hypertension, consider venous sinus thrombosis, less likely in this location, aneurysmal bleed, head trauma (also unlikely). Had craniotomy 02/09 evening Suspect of aspiration, respiratory failure, hypertension, chronic obstructive pulmonary disease, improving acute kidney injury cont Zosyn glucose uncontrolled add Lantus 35 MIN CC TIME 02/14/2021 POD #5 Right occipital craniotomy with evacuation of intracerebral hematoma sedated on vent Patient seen and examined at bedside Good response to IV Lasix Continue antibiotics per infectious disease Weaning ventilator and sedation as tolerated Hopeful extubation in the next few days Plan of care discussed with bedside nurse Expected interval evolution of a right posterior temporal/occipital intraparenchymal hematoma status post decompressive craniotomy Large right temporo-occipital intraparenchymal bleed, most likely lobar hemorrhage from hypertension, consider venous sinus thrombosis, less likely in this location, aneurysmal bleed, head trauma (also unlikely). Had craniotomy 02/09 evening Suspect of aspiration, respiratory failure, hypertension, chronic obstructive pulmonary disease, improving acute kidney injury cont Zosyn glucose uncontrolled add Lantus 35 MIN CC TIME 02/13/2021 POD #4 Right occipital craniotomy with evacuation of intracerebral hematoma sedated on vent Patient seen and examined at bedside Good response to IV Lasix Continue antibiotics per infectious disease Weaning ventilator and sedation as tolerated Hopeful extubation in the next few days Plan of care discussed with bedside nurse Expected interval evolution of a right posterior temporal/occipital intrapare nchymal hematoma status post decompressive craniotomy Large right temporo-occipital intraparenchymal bleed, most likely lobar he morrhage from hypertension, consider venous sinus thrombosis, less likely in this location, aneurysmal bleed, head trauma (also unlikely). Had craniotomy 02/09 evening Suspect of aspiration, respiratory failure, hypertension, chronic obstructive pulmonary disease, improving acute kidney injury cont Zosyn 35 MIN CC TIME 02/12/2021 Patient seen and examined at bedside Remains intubated and sedated Good response to IV Lasix yesterday had nearly 3 L out; will diurese again today Continue antibiotics per infectious disease Weaning ventilator and sedation as tolerated Hopeful extubation in the next few days Plan of care discussed with bedside nurse 02/11/2021 Patient seen and examined at bedside No major clinical changes overnight however this morning patient has largely increased amount of secretions Chest x-ray concerning for possible pneumonia, will consult ID who recommended starting Zosyn Otherwise he remains intubated and sedated We will follow subspecialist input Plan discussed with bedside RN 02/10/2021 Patient seen and examined at bedside Underwent craniotomy yesterday due to unresponsiveness in the late afternoon; was also intubated Continues to have a poor neurologic status Neurology and neurosurgery following Discussed plan of care with bedside nurse Patient is a 61-year-old male transferred for to the ICU overnight due to hypertensive emergency and intracranial hemorrhage. Patient's mother at bedside provides most the history. She reports that patient had been in his usual state of health until yesterday morning when he reported feeling tired and having a headache. Patient mother reports he normally gets up early and goes outside however this was not the case yesterday. With this headache he took BC powder and went back to bed. Patient's mother reports that he was in and out of bed throughout most of the afternoon. Says patient did not eat anything yesterday which is very unusual for him. Approximately 1130 last night she had the patient get up to go to the bathroom and heard him fall. He however is able to get up and returned to bed; unknown if he hit his head at this time. Patient again woke up around 2 AM and woke up his mother asking for orange juice and then proceeded to fall again, she does not think he hit his head at this time. He was taken to hospital and found to have a systolic blood pressure greater than [address] scan found to have an intracranial hemorrhage. Due to severity of his condition he was transferred here. Patient's mother reports she is not aware of any past medical history other than hypertension which he intermittently takes hydrochlorothiazide for. Vitals/I&O Vitals/I&O: Vital Signs Date Time Temp Pulse Resp B/P (MAP) Pulse Ox O2 Delivery O2 Flow Rate FiO2 03/03/21 11:00 66 36 154/82 (106) 100 Ventilator 03/03/21 08:00 96.9 96.9 I & O 03/02/21 03/02/21 03/03/21 15:00 23:00 07:00 Intake Total 1760 ml 1431.0 ml Output Total 775 ml 1170 ml 1450 ml Balance -775 ml 590 ml -19.0 ml Physical Exam Physical Exam: GENERAL: Sedated on vent, patient is not following commands HEENT: no icterus,NGT + NECK trach present LUNGS: Decreased breath sound at bases HEART: S1, S2 bradycardia ABDOMEN: Soft, nontender, mildly distended EXTREMITIES: + edema, no cyanosis. SKIN:no gen rash NEUROLOGIC: unable to assess Right IJ taken out RT PICC Line clean General: Other (sedated on vent, trach) Heart: Regular rate Lungs: Clear Abdomen: Normal bowel sounds Extremities: No clubbing, No edema Skin: Other (Erik removed, dressing changed) Labs Labs: Laboratory Tests Test 03/02/21 13:09 03/02/21 18:20 03/02/21 23:30 03/03/21 05:51 Glucose (Fingerstick) 263 mg/dL (70-99) 260 mg/dL (70-99) 248 mg/dL (70-99) 216 mg/dL (70-99) Test 03/03/21 05:59 Sodium Level 135 mmol/L (136-145) Potassium Level 3.8 mmol/L (3.5-5.1) Chloride Level 102 mmol/L (98-107) Carbon Dioxide Level 30 mmol/L (21-32) Anion Gap 3 (6-14) Blood Urea Nitrogen 19 mg/dL (8-26) Creatinine 0.8 mg/dL (0.7-1.3) Estimated GFR (Cockcroft-Gault) 119.3 Glucose Level 210 mg/dL (70-99) Calcium Level 9.0 mg/dL (8.5-10.1) Assessment and Plan Assessmemt and Plan Respiratory failure requiring intubation Large right temporo-occipital intraparenchymal bleed, most likely lobar hemorrhage from hypertension, consider venous sinus thrombosis, , aneurysmal bleed, Had craniotomy 02/09 evening Suspect aspiration, respiratory failure, hypertension, chronic obstructive pulmonary disease, improving acute kidney injury MORBID OBESITY Severe malnutrition Plan ICU monitoring Vent weaning (we are able to put him onto spontaneous respiration daily for the past 4 days for a few hours) Resume assist-control at bedtime Daily ABG Daily chest x-ray Trach care continue TPN IV Zyvox IV Zosyn Continue SCDs Moore to bedside drainage Discussed with RN Continue sedation with propofol and fentanyl and Precedex Trend labs Home meds DVT prophylaxis Full code Prognosis extremely guarded he remains critically ill Appreciate subspecialist input CC time 31minute Comment Review of Relevant I have reviewed the following items neela (where applicable) has been applied. Medications: Current Medications Medications (Trade) Dose Ordered Sig/Lorraine Route PRN Reason Start Time Stop Time Status Last Admin Dose Admin Potassium Acetate 50 meq/Potassium Phosphate 13.6 mmol/Magnesium Sulfate 8 meq/ Multivitamins 5 ml/Zinc/Copper/ Manganese/ Selenium 1 ml/ Total Parenteral Nutrition/Amino Acids/Dextrose 2,040 ml @ 85 mls/hr TPN CONT IV 03/02/21 22:00 03/03/21 21:59 03/02/21 21:11 Insulin Glargine (Lantus Syringe) 35 unit QHS SQ 03/02/21 21:00 03/02/21 21:10 Docusate Sodium (Colace Solution) 100 mg DAILY PO 03/03/21 10:00 03/03/21 09:44 Polyethylene Glycol (miraLAX PACKET) 17 gm DAILY PO 03/03/21 10:00 03/03/21 09:44 Justifications for Admission Other Justification JUSTIN LLOYD III DO Mar 03, 2021 11:19
[2021-03-03] MEDS: fentaNYL HIGH DOSE PCA 55 ML IV PRN (14:03)
--- NOTE | 2021-03-03 14:52 | PDOC ---
PROGRESS NOTES Date of Service DATE: 03/03/21 TIME: 14:49 Assessment 1. Continued respiratory failure currently breathing through trach. Still requiring sedation with fentanyl 25 mcg/h, propofol 30 mcg/kg and Precedex 0.6 mcg/kg/min. 2. No improvement in neurologic examination. He is able to open his eyes to noxious stimulation. There is no following of commands. 3. Right hemisphere hemorrhage which required surgical evacuation and left hemispheric ischemic stroke. The bilateral strokes reduce prognosis greatly. Chance for meaningful neurologic recovery poor. Plan I have not seen improvement in the patient's examination. It is reasonable to have palliative care work with the family and consider transition of care to comfort. Subjective Nonverbal Objective Vital Signs Date Time Temp Pulse Resp B/P (MAP) Pulse Ox O2 Delivery O2 Flow Rate FiO2 03/03/21 14:03 100 Ventilator 03/03/21 14:00 61 19 121/3 (42) 03/03/21 12:00 98.7 98.7 Intake and Output 03/03/21 07:00 Intake Total 3191.0 ml Output Total 3395 ml Balance -204.0 ml IV Total 3191.0 ml Output Urine Total 3095 ml Gastric Drainage Total 300 ml PHYSICAL EXAM He was intubated and ventilated. He was sedated but on slightly less medication. He would open his eyes to noxious stimulation but there was no focus. He did not follow command nor did he look up or down to command. He did not respond to visual threat or loud clap. Oculocephalic reflex was absent. Corneal reflex was present on the right but not the left. Pupils were poorly reactive. The face was symmetric. Muscle bulk was symmetric. The tone was flaccid in all extremities. He did not have any spontaneous movement. Nailbed pressure did not provoke any response of any kind in the upper extremities. Nailbed pressure of the left lower extremity provoked a brief upgoing toe but not on the right side. Review of Relevant I have reviewed the following items neela (where applicable) has been applied. Labs Laboratory Tests Test 03/01/21 18:21 03/01/21 21:16 03/01/21 23:58 03/02/21 06:15 Glucose (Fingerstick) 246 mg/dL (70-99) 244 mg/dL (70-99) 286 mg/dL (70-99) Sodium Level 135 mmol/L (136-145) Potassium Level 4.2 mmol/L (3.5-5.1) Chloride Level 102 mmol/L (98-107) Carbon Dioxide Level 29 mmol/L (21-32) Anion Gap 4 (6-14) Blood Urea Nitrogen 15 mg/dL (8-26) Creatinine 0.7 mg/dL (0.7-1.3) Estimated GFR (Cockcroft-Gault) 139.2 Glucose Level 244 mg/dL (70-99) Calcium Level 9.1 mg/dL (8.5-10.1) Phosphorus Level 3.4 mg/dL (2.6-4.7) Magnesium Level 1.8 mg/dL (1.8-2.4) Triglycerides Level 218 mg/dL (0-150) Test 03/02/21 06:21 03/02/21 08:00 03/02/21 13:09 03/02/21 18:20 Glucose (Fingerstick) 239 mg/dL (70-99) 263 mg/dL (70-99) 260 mg/dL (70-99) O2 Saturation 94 % (92-99) Arterial Blood pH 7.39 (7.35-7.45) Arterial Blood pCO2 at Patient Temp 43 mmHg (35-46) Arterial Blood pO2 at Patient Temp 74 mmHg (65-108) Arterial Blood HCO3 25 mmol/L (21-28) Arterial Blood Base Excess 0 mmol/L (-3-3) FiO2 40/vent Test 03/02/21 23:30 03/03/21 05:51 03/03/21 05:59 03/03/21 12:04 Glucose (Fingerstick) 248 mg/dL (70-99) 216 mg/dL (70-99) 243 mg/dL (70-99) Sodium Level 135 mmol/L (136-145) Potassium Level 3.8 mmol/L (3.5-5.1) Chloride Level 102 mmol/L (98-107) Carbon Dioxide Level 30 mmol/L (21-32) Anion Gap 3 (6-14) Blood Urea Nitrogen 19 mg/dL (8-26) Creatinine 0.8 mg/dL (0.7-1.3) Estimated GFR (Cockcroft-Gault) 119.3 Glucose Level 210 mg/dL (70-99) Calcium Level 9.0 mg/dL (8.5-10.1) Laboratory Tests Test 03/02/21 18:20 03/02/21 23:30 03/03/21 05:51 03/03/21 05:59 Glucose (Fingerstick) 260 mg/dL (70-99) 248 mg/dL (70-99) 216 mg/dL (70-99) Sodium Level 135 mmol/L (136-145) Potassium Level 3.8 mmol/L (3.5-5.1) Chloride Level 102 mmol/L (98-107) Carbon Dioxide Level 30 mmol/L (21-32) Anion Gap 3 (6-14) Blood Urea Nitrogen 19 mg/dL (8-26) Creatinine 0.8 mg/dL (0.7-1.3) Estimated GFR (Cockcroft-Gault) 119.3 Glucose Level 210 mg/dL (70-99) Calcium Level 9.0 mg/dL (8.5-10.1) Test 03/03/21 12:04 Glucose (Fingerstick) 243 mg/dL (70-99) Microbiology 02/23/21 Gram Stain - Final, Complete 02/23/21 Aerobic Culture - Final, Complete 02/22/21 Blood Culture - Final, Complete NO GROWTH AFTER 5 DAYS 02/22/21 Gram Stain Evaluation - Final, Complete 02/22/21 Respiratory Culture - Final, Complete Medications Current Medications Nicardipine HCl 50 mg/Sodium Chloride 250 ml @ 12.5 mls/hr CONT PRN IV SEE I/O RECORD Last administered on 02/26/21at 01:20; Start 02/09/21 at 06:15 Labetalol HCl (Normodyne Iv Push) 10 mg PRN Q2HR PRN IVP HYPERTENSION- 1ST CHOICE Last administered on 02/28/21at 11:12; Start 02/09/21 at 06:15 Lorazepam (Ativan Inj) 2 mg 1X ONCE IVP Last administered on 02/09/21at 10:54; Start 02/09/21 at 10:45; Stop 02/09/21 at 10:46; Status DC Lorazepam (Ativan Inj) 2 mg 1X ONCE IVP Last administered on 02/09/21at 11:00; Start 02/09/21 at 11:00; Stop 02/09/21 at 11:01; Status DC Fentanyl Citrate (Fentanyl 2ml Vial) 25 mcg PRN Q2HR PRN IVP MODERATE TO SEVERE PAIN Last administered on 02/09/21at 13:37; Start 02/09/21 at 13:30; Stop 02/18/21 at 22:53; Status DC Info (Review Meds) 1 ea PRN 1X PRN MC SEE COMMENTS; Start 02/09/21 at 15:00 Acetaminophen (Tylenol Supp) [address] Q6HRS [address] FEVER > 100.5'F or 38'C; Start 02/09/21 at 15:00; Stop 02/11/21 at 21:12; Status DC Albuterol Sulfate (Ventolin Neb Soln) 2.5 mg PRN Q4HRS PRN NEB SHORTNESS OF BREATH; Start 02/09/21 at 15:15 Iohexol (Omnipaque 350 Mg/ml) 75 ml 1X ONCE IV Last administered on 02/09/21at 15:52; Start 02/09/21 at 15:30; Stop 02/09/21 at 15:35; Status DC Iohexol (Omnipaque 350 Mg/ml) 100 ml STK-MED ONCE .ROUTE ; Start 02/09/21 at 15:26; Stop 02/09/21 at 15:27; Status DC Info (CONTRAST GIVEN -- Rx MONITORING) 1 each PRN DAILY PRN MC SEE COMMENTS; Start 02/09/21 at 15:45; Stop 02/11/21 at 15:44; Status DC Propofol 100 ml @ As Directed STK-MED ONCE IV ; Start 02/09/21 at 15:51; Stop 02/09/21 at 15:51; Status DC Rocuronium Edwards (Zemuron) 50 mg STK-MED ONCE .ROUTE ; Start 02/09/21 at 15:51; Stop 02/09/21 at 15:51; Status DC Lidocaine HCl (Lidocaine HCl 2% Abboject) 100 mg STK-MED ONCE .ROUTE ; Start 02/09/21 at 15:52; Stop 02/09/21 at 15:53; Status DC Propofol 100 ml @ 3.507 mls/ hr CONT PRN IV PER PROTOCOL Last administered on 03/03/21at 12:00; Start 02/09/21 at 16:15 Lidocaine HCl (Lidocaine HCl 2% Abboject) 100 mg 1X ONCE IV Last administered on 02/09/21 16:17; Start 02/09/21 at 16:15; Stop 02/09/21 at 16:17; Status DC Rocuronium Edwards (Zemuron) 50 mg 1X ONCE IV Last administered on 02/09/21 16:17; Start 02/09/21 at 16:15; Stop 02/09/21 at 16:17; Status DC Rocuronium Edwards (Zemuron) 100 mg STK-MED ONCE .ROUTE ; Start 02/09/21 at 16:31; Stop 02/09/21 at 16:32; Status DC Gelatin (Gelfoam Size 100) 1 each STK-MED ONCE .ROUTE Last administered on 02/09/21 17:49; Start 02/09/21 at 16:33; Stop 02/09/21 at 16:33; Status DC Bupivacaine HCl/ Epinephrine Bitart (Sensorcain-Epi 0.5%-1:[id number] Mpf) 30 ml STK-MED ONCE .ROUTE Last administered on 02/09/21 17:49; Start 02/09/21 at 16:33; Stop 02/09/21 at 16:33; Status DC Cellulose (Surgicel Hemostat 4x8) 1 each STK-MED ONCE .ROUTE Last administered on 02/09/21 18:38; Start 02/09/21 at 16:33; Stop 02/09/21 at 16:33; Status DC Thrombin 20,000 unit STK-MED ONCE TP Last administered on 02/09/21 17:49; Start 02/09/21 at 16:33; Stop 02/09/21 at 16:33; Status DC Fentanyl Citrate (Fentanyl 2ml Vial) 75 mcg 1X ONCE IVP Last administered on 02/09/21 16:45; Start 02/09/21 at 16:45; Stop 02/09/21 at 16:47; Status DC Propofol (Diprivan) 200 mg 1X ONCE IV ; Start 02/09/21 at 17:15; Stop 02/09/21 at 17:16; Status DC Lidocaine HCl (Lidocaine HCl 2% Abboject) 100 mg 1X ONCE IV ; Start 02/09/21 at 17:15; Stop 02/09/21 at 17:16; Status DC Rocuronium Edwards (Zemuron) 50 mg 1X ONCE IV ; Start 02/09/21 at 17:15; Stop 02/09/21 at 17:16; Status DC Propofol 100 ml @ 0 mls/hr CONT PRN PRN IV SEDATION; Start 02/09/21 at 17:15; Stop 02/10/21 at 05:14; Status DC Cefazolin Sodium (Ancef) 1 gm STK-MED ONCE IVP ; Start 02/09/21 at 17:28; Stop 02/09/21 at 17:28; Status DC Fentanyl Citrate (Fentanyl 2ml Vial) 100 mcg STK-MED ONCE .ROUTE ; Start 02/09/21 at 17:43; Stop 02/09/21 at 17:43; Status DC Rocuronium Edwards (Zemuron) 100 mg STK-MED ONCE .ROUTE ; Start 02/09/21 at 17:58; Stop 02/09/21 at 17:59; Status DC Vecuronium Edwards (Norcuron Bolus) 10 mg STK-MED ONCE IV ; Start 02/09/21 at 18:49; Stop 02/09/21 at 18:50; Status DC Sodium Chloride (SODIUM CHLORIDE 20ml) 20 ml STK-MED ONCE IJ ; Start 02/09/21 at 18:50; Stop 02/09/21 at 18:50; Status DC Sevoflurane (Ultane) 90 ml STK-MED ONCE IH ; Start 02/09/21 at 19:20; Stop 02/09/21 at 19:21; Status DC Fentanyl Citrate 30 ml @ 2.5 mls/hr CONT PRN IV SEE PROTOCOL Last administered on 02/09/21at 23:40; Start 02/09/21 at 23:15; Stop 02/10/21 at 04:43; Status DC Fentanyl Citrate 55 ml @ 0 mls/hr CONT PRN IV SEE I/O Last administered on 03/03/21at 14:03; Start 02/10/21 at 05:00 Potassium Chloride/Dextrose/ Sod Cl 1,000 ml @ 80 mls/hr [id number] IV ; Start 02/10/21 at 09:00; Stop 02/10/21 at 13:21; Status DC Pantoprazole Sodium (PROTONIX VIAL for IV PUSH) 40 mg DAILYAC IVP Last administered on 03/03/21at 09:11; Start 02/10/21 at 09:00 Lidocaine HCl (Buffered Lidocaine 1%) 3 ml STK-MED ONCE .ROUTE ; Start 02/10/21 at 13:18; Stop 02/10/21 at 13:18; Status DC Sodium Chloride 1,000 ml @ 80 mls/hr [id number] IV Last administered on 02/12/21at 03:00; Start 02/10/21 at 13:30; Stop 02/12/21 at 15:36; Status DC Lidocaine HCl (Buffered Lidocaine 1%) 6 ml 1X ONCE INJ Last administered on 02/10/21at 13:57; Start 02/10/21 at 13:45; Stop 02/10/21 at 13:46; Status DC Potassium Chloride/Water 100 ml @ 100 mls/hr Q1H IV Last administered on 02/11/21at 10:07; Start 02/11/21 at 08:00; Stop 02/11/21 at 09:59; Status DC Piperacillin Sod/ Tazobactam Sod 3.375 gm/Sodium Chloride 50 ml @ 100 mls/hr Q6HRS IV Last administered on 03/03/21at 12:01; Start 02/11/21 at 09:00 Info (Tpn Per Pharmacy) 1 each PRN DAILY PRN MC SEE COMMENTS Last administered on 03/03/21at 09:12; Start 02/11/21 at 11:15 Sodium Chloride 90 meq/Potassium Chloride 50 meq/ Potassium Phosphate 13.6 mmol/Magnesium Sulfate 10 meq/ Calcium Gluconate 10 meq/ Multivitamins 5 ml/Zinc/Copper/ Manganese/ Selenium 1 ml/ Total Parenteral Nutrition/Amino Acids/Dextrose 1,512 ml @ 63 mls/hr TPN CONT IV Last administered on 02/11/21at 22:32; Start 02/11/21 at 22:00; Stop 02/12/21 at 21:59; Status DC Furosemide (Lasix) 20 mg 1X ONCE IVP Last administered on 02/11/21at 15:11; Start 02/11/21 at 15:30; Stop 02/11/21 at 15:31; Status DC Furosemide (Lasix) 20 mg 1X ONCE IVP Last administered on 02/11/21at 17:00; Start 02/11/21 at 17:00; Stop 02/11/21 at 17:01; Status DC Midazolam HCl 100 ml @ 1 mls/hr CONT PRN IV SEE PROTOCOL Last administered on 02/13/21at 20:58; Start 02/11/21 at 19:30 Acetaminophen (Tylenol Supp) 650 [address]N Q6HRS PRN CT MILD PAIN / TEMP > 100.3'F; Start 02/11/21 at 21:15 Sodium Chloride 80 meq/Potassium Chloride 50 meq/ Potassium Phosphate 13.6 mmol/Magnesium Sulfate 6 meq/ Calcium Gluconate 10 meq/ Multivitamins 5 ml/Zinc/Copper/ Manganese/ Selenium 1 ml/ Total Parenteral Nutrition/Amino Acids/Dextrose 1,512 ml @ 63 mls/hr TPN CONT IV Last administered on 02/12/21at 22:09; Start 02/12/21 at 22:00; Stop 02/13/21 at 21:59; Status DC Furosemide (Lasix) 40 mg 1X ONCE IVP Last administered on 02/12/21at 12:44; Start 02/12/21 at 12:30; Stop 02/12/21 at 12:31; Status DC Insulin Human Lispro (HumaLOG) 0-5 UNITS Q6HRS SQ Last administered on 03/03/21at 12:05; Start 02/12/21 at 12:00 Dextrose (Dextrose 50%-Water Syringe) 12.5 gm PRN Q15MIN PRN IV SEE COMMENTS; Start 02/12/21 at 12:15 Clonidine HCl (Catapres Tts-3) 1 patch WEEKLY TD Last administered on 02/27/21at 09:06; Start 02/13/21 at 11:00 Sodium Chloride 80 meq/Potassium Chloride 50 meq/ Potassium Phosphate 13.6 mmol/Magnesium Sulfate 6 meq/ Calcium Gluconate 10 meq/ Multivitamins 5 ml/ Zinc/Copper/ Manganese/ Selenium 1 ml/ Total Parenteral Nutrition/Amino Acids/Dextrose 1,512 ml @ 63 mls/hr TPN CONT IV Last administered on 02/13/21at 21:42; Start 02/13/21 at 22:00; Stop 02/14/21 at 21:59; Status DC Potassium Acetate 50 meq/Potassium Phosphate 13.6 mmol/Magnesium Sulfate 6 meq/ Calcium Gluconate 10 meq/ Multivitamins 5 ml/Zinc/Copper/ Manganese/ Selenium 1 ml/ Total Parenteral Nutrition/Amino Acids/Dextrose 1,512 ml @ 63 mls/hr TPN CONT IV Last administered on 02/14/21at 21:59; Start 02/14/21 at 22:00; Stop 02/15/21 at 21:59; Status DC Insulin Glargine (Lantus Syringe) 10 unit QHS SQ Last administered on 02/15/21at 22:11; Start 02/14/21 at 21:00; Stop 02/16/21 at 12:42; Status DC Hydralazine HCl (Apresoline Inj) 10 mg PRN Q4HRS PRN IVP ELEVATED BP, SEE COMMENTS Last administered on 03/01/21at 23:52; Start 02/14/21 at 16:00 Potassium Acetate 50 meq/Potassium Phosphate 13.6 mmol/Magnesium Sulfate 6 meq/ Calcium Gluconate 10 meq/ Multivitamins 5 ml/Zinc/Copper/ Manganese/ Selenium 1 ml/ Total Parenteral Nutrition/Amino Acids/Dextrose 1,512 ml @ 63 mls/hr TPN CONT IV Last administered on 02/15/21at 22:13; Start 02/15/21 at 22:00; Stop 02/16/21 at 21:59; Status DC Dexmedetomidine HCl 400 mcg/ Sodium Chloride 100 ml @ 0 mls/hr CONT PRN IV PER PROTOCOL Last administered on 03/03/21at 12:03; Start 02/15/21 at 14:15 Sodium Chloride 500 ml @ 500 mls/hr 1X PRN PRN IV SEE COMMENTS; Start 02/15/21 at 14:15 Atropine Sulfate (ATROPINE 0.5mg SYRINGE) 0.5 mg PRN Q5MIN PRN IV SEE COMMENTS; Start 02/15/21 at 14:15 Potassium Acetate 50 meq/Potassium Phosphate 13.6 mmol/Magnesium Sulfate 6 meq/ Calcium Gluconate 10 meq/ Multivitamins 5 ml/Zinc/Copper/ Manganese/ Selenium 1 ml/ Total Parenteral Nutrition/Amino Acids/Dextrose 1,512 ml @ 63 mls/hr TPN CONT IV Last administered on 02/16/21at 22:59; Start 02/16/21 at 22:00; Stop 02/17/21 at 21:59; Status DC Insulin Glargine (Lantus Syringe) 14 unit QHS SQ Last administered on 02/16/21at 21:14; Start 02/16/21 at 21:00; Stop 02/17/21 at 14:15; Status DC Potassium Acetate 50 meq/Potassium Phosphate 13.6 mmol/Magnesium Sulfate 6 meq/ Calcium Gluconate 10 meq/ Multivitamins 5 ml/Zinc/Copper/ Manganese/ Selenium 1 ml/ Total Parenteral Nutrition/Amino Acids/Dextrose 1,512 ml @ 63 mls/hr TPN CONT IV Last administered on 02/17/21at 20:48; Start 02/17/21 at 22:00; Stop 02/18/21 at 21:59; Status DC Dextrose 1,000 ml @ 75 mls/hr [id number] IV Last administered on 02/18/21at 13:51; Start 02/17/21 at 10:30; Stop 02/19/21 at 12:57; Status DC Insulin Glargine (Lantus Syringe) 18 unit QHS SQ Last administered on 02/17/21at 20:46; Start 02/17/21 at 21:00; Stop 02/18/21 at 11:56; Status DC Insulin Glargine (Lantus Syringe) 22 unit QHS SQ Last administered on 02/18/21at 21:00; Start 02/18/21 at 21:00; Stop 02/19/21 at 14:08; Status DC Potassium Acetate 50 meq/Potassium Phosphate 13.6 mmol/Magnesium Sulfate 6 meq/ Calcium Gluconate 10 meq/ Multivitamins 5 ml/Zinc/Copper/ Manganese/ Selenium 1 ml/ Total Parenteral Nutrition/Amino Acids/Dextrose 1,512 ml @ 63 mls/hr TPN CONT IV Last administered on 02/18/21at 21:43; Start 02/18/21 at 22:00; Stop 02/19/21 at 21:59; Status DC Potassium Acetate 50 meq/Potassium Phosphate 13.6 mmol/Magnesium Sulfate 6 meq/ Calcium Gluconate 10 meq/ Multivitamins 5 ml/Zinc/Copper/ Manganese/ Selenium 1 ml/ Total Parenteral Nutrition/Amino Acids/Dextrose 2,040 ml @ 85 mls/hr TPN CONT IV Last administered on 02/19/21at 20:56; Start 02/19/21 at 22:00; Stop 02/20/21 at 21:59; Status DC Insulin Glargine (Lantus Syringe) 25 unit QHS SQ Last administered on 02/20/21at 22:11; Start 02/19/21 at 21:00; Stop 02/21/21 at 10:10; Status DC Acetaminophen (Tylenol) 650 mg PRN Q6HRS PRN PEG MILD PAIN / TEMP > 100.3'F Last administered on 02/22/21at 08:10; Start 02/19/21 at 18:00 Potassium Acetate 50 meq/Potassium Phosphate 13.6 mmol/Magnesium Sulfate 6 meq/ Calcium Gluconate 10 meq/ Multivitamins 5 ml/Zinc/Copper/ Manganese/ Selenium 1 ml/ Total Parenteral Nutrition/Amino Acids/Dextrose 2,040 ml @ 85 mls/hr TPN CONT IV Last administered on 02/20/21at 22:10; Start 02/20/21 at 22:00; Stop 02/21/21 at 21:59; Status DC Insulin Glargine (Lantus Syringe) 27 unit QHS SQ Last administered on 03/01/21at 21:18; Start 02/21/21 at 21:00; Stop 03/02/21 at 13:32; Status DC Magnesium Sulfate 50 ml @ 25 mls/hr 1X ONCE IV Last administered on 02/21/21at 11:30; Start 02/21/21 at 11:00; Stop 02/21/21 at 12:59; Status DC Potassium Acetate 50 meq/Potassium Phosphate 13.6 mmol/Magnesium Sulfate 8 meq/ Calcium Gluconate 10 meq/ Multivitamins 5 ml/Zinc/Copper/ Manganese/ Selenium 1 ml/ Total Parenteral Nutrition/Amino Acids/Dextrose 2,040 ml @ 85 mls/hr TPN CONT IV Last administered on 02/21/21at 21:23; Start 02/21/21 at 22:00; Stop 02/22/21 at 21:59; Status DC Daptomycin 570 mg/ Sodium Chloride 50 ml @ 100 mls/hr Q24H IV Last administered on 02/24/21at 13:10; Start 02/22/21 at 12:00; Stop 02/25/21 at 10:34; Status DC Linezolid/Dextrose 300 ml @ 300 mls/hr Q12HR IV Last administered on 03/02/21at 08:26; Start 02/22/21 at 09:00; Stop 03/02/21 at 08:42; Status DC Potassium Acetate 50 meq/Potassium Phosphate 13.6 mmol/Magnesium Sulfate 8 meq/ Calcium Gluconate 5 meq/ Multivitamins 5 ml/Zinc/Copper/ Manganese/ Selenium 1 ml/ Total Parenteral Nutrition/Amino Acids/Dextrose 2,040 ml @ 85 mls/hr TPN CONT IV Last administered on 02/22/21at 21:32; Start 02/22/21 at 22:00; Stop 02/23/21 at 21:59; Status DC Fentanyl Citrate (Fentanyl 2ml Vial) 25 mcg PRN Q5MIN PRN IVP MILD PAIN 1-3; Start 02/23/21 at 06:00; Stop 02/24/21 at 05:59; Status DC Fentanyl Citrate (Fentanyl 2ml Vial) 50 mcg PRN Q5MIN PRN IVP MODERATE PAIN 4- 6; Start 02/23/21 at 06:00; Stop 02/24/21 at 05:59; Status DC Morphine Sulfate (Morphine Sulfate) 1 mg PRN Q10MIN PRN IVP SEVERE PAIN 7-10; Start 02/23/21 at 06:00; Stop 02/24/21 at 05:59; Status DC Ringer's Solution 1,000 ml @ 30 mls/hr Q24H IV Last administered on 02/23/21at 11:00; Start 02/23/21 at 06:00; Stop 02/23/21 at 17:59; Status DC Hydromorphone HCl (Dilaudid) 0.5 mg PRN Q10MIN PRN IVP SEVERE PAIN 7-10, 2nd CHOICE; Start 02/23/21 at 06:00; Stop 02/24/21 at 05:59; Status DC Prochlorperazine Edisylate (Compazine) 5 mg PACU PRN PRN IVP NAUSEA, MRX1; Start 02/23/21 at 06:00; Stop 02/24/21 at 05:59; Status DC Cellulose (Surgicel Fibrillar 1x2) 1 each STK-MED ONCE .ROUTE ; Start 02/23/21 at 08:23; Stop 02/23/21 at 08:23; Status DC Lidocaine/ Epinephrine (LIDOCAINE 1%-EPI 1:100,000 Multi-Dose) 20 ml STK-MED ONCE .ROUTE Last administered on 02/23/21at 13:33; Start 02/23/21 at 08:23; Stop 02/23/21 at 08:23; Status DC Potassium Acetate 50 meq/Potassium Phosphate 13.6 mmol/Magnesium Sulfate 8 meq/ Calcium Gluconate 5 meq/ Multivitamins 5 ml/Zinc/Copper/ Manganese/ Selenium 1 ml/ Total Parenteral Nutrition/Amino Acids/Dextrose 2,040 ml @ 85 mls/hr TPN CONT IV ; Start 02/23/21 at 22:00; Stop 02/24/21 at 21:59; Status DC Rocuronium Edwards (Zemuron) 50 mg STK-MED ONCE .ROUTE ; Start 02/23/21 at 12:13; Stop 02/23/21 at 12:13; Status DC Fentanyl Citrate (Fentanyl 2ml Vial) 100 mcg STK-MED ONCE .ROUTE ; Start 02/23/21 at 12:24; Stop 02/23/21 at 12:24; Status DC Insulin Human Lispro (HumaLOG VIAL for OP,RR ONLY) 0-10 units PRN Q1HR PRN SQ PER PROTOCOL Last administered on 02/23/21at 13:00; Start 02/23/21 at 13:15; Stop 02/24/21 at 13:14; Status DC Rocuronium Edwards (Zemuron) 100 mg STK-MED ONCE .ROUTE ; Start 02/23/21 at 13:22; Stop 02/23/21 at 13:23; Status DC Albuterol Sulfate (Ventolin Hfa) 60 puff STK-MED ONCE INH ; Start 02/23/21 at 13:47; Stop 02/23/21 at 13:48; Status DC Sevoflurane (Ultane) 60 ml STK-MED ONCE IH ; Start 02/23/21 at 14:21; Stop 02/23/21 at 14:21; Status DC Potassium Acetate 50 meq/Potassium Phosphate 13.6 mmol/Magnesium Sulfate 8 meq/ Calcium Gluconate 5 meq/ Multivitamins 5 ml/Zinc/Copper/ Manganese/ Selenium 1 ml/ Total Parenteral Nutrition/Amino Acids/Dextrose 2,040 ml @ 85 mls/hr TPN CONT IV ; Start 02/25/21 at 22:00; Stop 02/26/21 at 21:59; Status DC Potassium Acetate 50 meq/Potassium Phosphate 13.6 mmol/Magnesium Sulfate 8 meq/ Calcium Gluconate 5 meq/ Multivitamins 5 ml/Zinc/Copper/ Manganese/ Selenium 1 ml/ Total Parenteral Nutrition/Amino Acids/Dextrose 2,040 ml @ 85 mls/hr TPN CONT IV Last administered on 02/26/21at 21:27; Start 02/26/21 at 22:00; Stop 02/27/21 at 21:59; Status DC Potassium Acetate 50 meq/Potassium Phosphate 13.6 mmol/Magnesium Sulfate 8 meq/ Calcium Gluconate 5 meq/ Multivitamins 5 ml/Zinc/Copper/ Manganese/ Selenium 1 ml/ Total Parenteral Nutrition/Amino Acids/Dextrose 2,040 ml @ 85 mls/hr TPN CONT IV Last administered on 02/27/21at 21:01; Start 02/27/21 at 22:00; Stop 02/28/21 at 21:59; Status DC Potassium Acetate 50 meq/Potassium Phosphate 13.6 mmol/Magnesium Sulfate 8 meq/ Calcium Gluconate 5 meq/ Multivitamins 5 ml/Zinc/Copper/ Manganese/ Selenium 1 ml/ Total Parenteral Nutrition/Amino Acids/Dextrose 2,040 ml @ 85 mls/hr TPN CONT IV Last administered on 02/28/21at 21:44; Start 02/28/21 at 22:00; Stop 03/01/21 at 21:59; Status DC Potassium Acetate 50 meq/Potassium Phosphate 13.6 mmol/Magnesium Sulfate 8 meq/ Calcium Gluconate 5 meq/ Multivitamins 5 ml/Zinc/Copper/ Manganese/ Selenium 1 ml/ Total Parenteral Nutrition/Amino Acids/Dextrose 2,040 ml @ 85 mls/hr TPN CONT IV Last administered on 03/01/21at 21:22; Start 03/01/21 at 22:00; Stop 03/02/21 at 21:59; Status DC Potassium Acetate 50 meq/Potassium Phosphate 13.6 mmol/Magnesium Sulfate 8 meq/ Multivitamins 5 ml/Zinc/Copper/ Manganese/ Selenium 1 ml/ Total Parenteral Nutrition/Amino Acids/Dextrose 2,040 ml @ 85 mls/hr TPN CONT IV Last administered on 03/02/21at 21:11; Start 03/02/21 at 22:00; Stop 03/03/21 at 21:59 Insulin Glargine (Lantus Syringe) 35 unit QHS SQ Last administered on 03/02/21at 21:10; Start 03/02/21 at 21:00 Potassium Acetate 50 meq/Potassium Phosphate 13.6 mmol/Magnesium Sulfate 8 meq/ Multivitamins 5 ml/Zinc/Copper/ Manganese/ Selenium 1 ml/ Total Parenteral Nutrition/Amino Acids/Dextrose 1,800 ml @ 75 mls/hr TPN CONT IV ; Start 03/03/21 at 22:00; Stop 03/04/21 at 21:59 Docusate Sodium (Colace Solution) 100 mg DAILY PO Last administered on 03/03/21at 09:44; Start 03/03/21 at 10:00 Polyethylene Glycol (miraLAX PACKET) 17 gm DAILY PO Last administered on 03/03/21at 09:44; Start 03/03/21 at 10:00 Vitals/I & O Vital Sign - Last 24 Hours 03/02/21 03/02/21 03/02/21 03/02/21 15:00 15:52 16:00 16:00 Temp 99.1 99.1 Pulse 67 68 Resp 16 16 B/P (MAP) 139/85 (103) 175/97 (123) Pulse Ox 100 100 100 O2 Delivery Ventilator Ventilator Mechanical Ventilator Ventilator 03/02/21 03/02/21 03/02/21 03/02/21 17:00 17:56 18:00 19:00 Pulse 60 63 66 Resp 16 17 19 B/P (MAP) 140/80 (100) 152/84 (106) 120/67 (84) Pulse Ox 99 100 100 100 O2 Delivery Ventilator Ventilator Ventilator Ventilator 03/02/21 03/02/21 03/02/21 03/02/21 20:00 20:00 21:00 21:15 Temp 98.7 98.7 Pulse 65 65 Resp 17 17 B/P (MAP) 119/69 (86) 140/82 (101) Pulse Ox 100 100 100 O2 Delivery Mechanical Ventilator Ventilator Ventilator Ventilator 03/02/21 03/02/21 03/03/21 03/03/21 22:00 23:00 00:00 00:01 Temp 99.3 99.3 Pulse 64 65 59 Resp 17 16 17 B/P (MAP) 121/69 (86) 131/73 (92) 135/79 (97) Pulse Ox 100 100 100 O2 Delivery Ventilator Ventilator Mechanical Ventilator Ventilator 03/03/21 03/03/21 03/03/21 03/03/21 00:35 01:00 02:00 03:00 Pulse 58 60 60 Resp 16 16 16 B/P (MAP) 125/74 (91) 130/81 (97) 133/78 (96) Pulse Ox 100 100 99 100 O2 Delivery Ventilator Ventilator Ventilator Ventilator 03/03/21 03/03/21 03/03/2130/21 04:00 04:00 04:26 05:00 Temp 98.8 98.8 Pulse 58 56 Resp 16 16 B/P (MAP) 144/83 (103) 110/69 (83) Pulse Ox 100 100 100 O2 Delivery Mechanical Ventilator Ventilator Ventilator Ventilator 03/03/21 03/03/21 03/03/21 03/03/21 06:00 07:00 07:42 08:00 Temp 96.9 96.9 Pulse 60 56 60 Resp 16 16 17 B/P (MAP) 115/58 (77) 123/72 (89) 117/70 (86) Pulse Ox 100 100 100 100 O2 Delivery Ventilator Ventilator Ventilator Ventilator 03/03/21 03/03/21 03/03/21 03/03/21 08:00 09:00 10:00 11:00 Pulse 56 64 66 Resp 15 22 36 B/P (MAP) 100/56 (71) 100/60 (73) 154/82 (106) Pulse Ox 100 100 100 O2 Delivery Mechanical Ventilator Ventilator Ventilator Ventilator 03/03/21 03/03/21 03/03/21 03/03/21 12:00 12:00 12:06 13:00 Temp 98.7 98.7 Pulse 64 65 Resp 19 16 B/P (MAP) 127/75 (92) 136/80 (98) Pulse Ox 100 100 100 O2 Delivery Mechanical Ventilator Ventilator Ventilator Ventilator 03/03/21 03/03/21 03/03/21 13:37 14:00 14:03 Pulse 61 Resp 19 B/P (MAP) 121/3 (42) Pulse Ox 100 100 100 O2 Delivery Ventilator Ventilator Ventilator Intake and Output 03/02/21 03/02/21 03/03/21 15:00 23:00 07:00 Intake Total 1760 ml 1431.0 ml Output Total 775 ml 1170 ml 1450 ml Balance -775 ml 590 ml -19.0 ml Justicifation of Admission Dx: Justifications for Admission: Justification of Admission Dx: Yes Acute Hemorrhagic Stroke: Acute Hemorrhagic Stroke SYLVIA MARS MD Mar 03, 2021 14:52
--- NOTE | 2021-03-03 15:43 | NUR ---
Notified Dr Valdovinos that family was requesting neurology to call them. Gave Dr Bonifacio Damico (sisters) phone number.
--- NOTE | 2021-03-03 16:19 | NUR ---
SS following up with discharge planning. SS reviewed pt chart and discussed with RN. Pt is currently on the vent at 40%. COVID19 negative. Pt on TPN. Pt on Fentanyl, Propofol, and Precedex. Trach in place. Self pay. Medicaid pending. Med [facility]ist following. Not stable. SS will continue to follow for discharge planning.
[2021-03-03] MEDS: INSULIN GLARGINE SYRINGE. SQ SCH (21:09)
[2021-03-03] MEDS ORDERED: TOTAL PARENTERAL NUTRITION IV SCH (22:00)
[2021-03-03] MEDS ORDERED: AMINO ACID IV SCH (22:00)
[2021-03-03] MEDS ORDERED: [UNRECOGNIZED DRUG - OTHER] IV SCH (22:00)
[2021-03-03] MEDS ORDERED: DEXTROSE 70% IV SCH (22:00)
[2021-03-04] VITALS (24 sets, daily range): BP systolic 107–222; BP diastolic 63–112
[2021-03-04] MEDS: hydrALAZINE 20 MG/ML VIAL. IVP PRN (01:11)
[2021-03-04] MEDS: PROPOFOL 100 ML IV PRN ×5 (02:15→20:54)
[2021-03-04] MEDS: LABETALOL 20 MG/4 ML DISP.SYRIN. IVP PRN (02:56)
[2021-03-04] MEDS: DEXMEDETOMIDINE 400 MCG in IV NORMAL SALINE 100ML 96 ML IV PRN ×4 (05:10→23:19)
[2021-03-04] MEDS: PIPERACILLIN/TAZOBACTAM 3.375 GM in IV NORMAL SALINE 50ML 50 ML IV SCH ×3 (05:45→18:24)
[2021-03-04] MEDS: INSULIN LISPRO 300 UNITS/3 ML VIAL. SQ SCH ×3 (05:49→18:25)
[2021-03-04 06:53] LABS: CREATININE 0.8 mg/dL (0.7-1.3); GFR 119.3; MAGNESIUM 1.6 mg/dL (1.8-2.4); PHOSPHORUS 3.7 mg/dL (2.6-4.7); POTASSIUM 4.7 mmol/L (3.5-5.1)
[2021-03-04] MEDS: POLYETHYLENE GLYCOL 3350 17 GM PACKET. PO SCH (07:35)
[2021-03-04] MEDS: PANTOPRAZOLE IV PUSH 40 MG VIAL. IVP SCH (07:35)
[2021-03-04] MEDS: DOCUSATE 100 MG/10 ML SOLUTION. PO SCH (07:35)
[2021-03-04] MEDS: ACETAMINOPHEN 650 MG/20.3 ML SOLUTION. PEG PRN (07:39)
--- NOTE | 2021-03-04 08:58 | PDOC ---
PULMONARY PROGRESS NOTES DATE: 03/04/21 TIME: 08:57 Subjective Discussed with RN no overnight events status post tracheotomy on 02/23 Currently sedate Does not do well off sedation Vitals Vital Signs Date Time Temp Pulse Resp B/P (MAP) Pulse Ox O2 Delivery O2 Flow Rate FiO2 03/04/21 07:52 100 Ventilator 03/04/21 06:00 78 16 158/83 (108) 03/04/21 05:00 100.6 100.6 Comments ros unable to obtain intubated on vent Lungs: Clear Cardiovascular: S1, S2 Abdomen: Soft, Non-tender Extremities: No Edema Skin: Warm Labs Laboratory Tests Test 03/02/21 13:09 03/02/21 18:20 03/02/21 23:30 03/03/21 05:51 Glucose (Fingerstick) 263 mg/dL (70-99) 260 mg/dL (70-99) 248 mg/dL (70-99) 216 mg/dL (70-99) Test 03/03/21 05:59 03/03/21 12:04 03/03/21 17:40 03/03/21 21:06 Sodium Level 135 mmol/L (136-145) Potassium Level 3.8 mmol/L (3.5-5.1) Chloride Level 102 mmol/L (98-107) Carbon Dioxide Level 30 mmol/L (21-32) Anion Gap 3 (6-14) Blood Urea Nitrogen 19 mg/dL (8-26) Creatinine 0.8 mg/dL (0.7-1.3) Estimated GFR (Cockcroft-Gault) 119.3 Glucose Level 210 mg/dL (70-99) Calcium Level 9.0 mg/dL (8.5-10.1) Glucose (Fingerstick) 243 mg/dL (70-99) 247 mg/dL (70-99) 191 mg/dL (70-99) Test 03/03/21 23:33 03/04/21 05:55 Glucose (Fingerstick) 193 mg/dL (70-99) Sodium Level 135 mmol/L (136-145) Potassium Level 4.7 mmol/L (3.5-5.1) Chloride Level 100 mmol/L (98-107) Carbon Dioxide Level 27 mmol/L (21-32) Anion Gap 8 (6-14) Blood Urea Nitrogen 17 mg/dL (8-26) Creatinine 0.8 mg/dL (0.7-1.3) Estimated GFR (Cockcroft-Gault) 119.3 Glucose Level 261 mg/dL (70-99) Calcium Level 9.0 mg/dL (8.5-10.1) Phosphorus Level 3.7 mg/dL (2.6-4.7) Magnesium Level 1.6 mg/dL (1.8-2.4) Laboratory Tests Test 03/03/21 12:04 03/03/21 17:40 03/03/21 21:06 03/03/21 23:33 Glucose (Fingerstick) 243 mg/dL (70-99) 247 mg/dL (70-99) 191 mg/dL (70-99) 193 mg/dL (70-99) Test 03/04/21 05:55 Sodium Level 135 mmol/L (136-145) Potassium Level 4.7 mmol/L (3.5-5.1) Chloride Level 100 mmol/L (98-107) Carbon Dioxide Level 27 mmol/L (21-32) Anion Gap 8 (6-14) Blood Urea Nitrogen 17 mg/dL (8-26) Creatinine 0.8 mg/dL (0.7-1.3) Estimated GFR (Cockcroft-Gault) 119.3 Glucose Level 261 mg/dL (70-99) Calcium Level 9.0 mg/dL (8.5-10.1) Phosphorus Level 3.7 mg/dL (2.6-4.7) Magnesium Level 1.6 mg/dL (1.8-2.4) Comments CXR 02/21/21 IMPRESSION: 1. Stable life support devices. 2. Improving bibasilar opacities.. CXR 02/18/21 IMPRESSION: Unchanged bibasilar opacities. Recommend follow-up to ensure resolution, particularly of focal opacities in the right lung base. CXR 02/17/21 IMPRESSION: 1. Stable life support devices. 2. Stable bibasilar opacities. 3. Stable small left pleural effusion. IMPRESSION: Chest x-ray 02/13 1. Stable support lines and tubes. 2. Severe right upper lobe predominant bullous emphysema. 3. Stable right perihilar linear atelectasis or infiltrate superimposed on diffuse interstitial prominence and small pleural effusions. Impression . IMPRESSION: 1. Acute hypoxic respiratory failure multifactorial, predominantly to intraparenchymal cerebral hematoma. Status post tracheostomy 02/[address] reveals evidence of a new moderate-sized stroke of frontal lobe, per neurology 3. Long history of tobaccoism. CT angiogram showed bullous emphysema in the upper lobes. 3. Acute kidney injury--resolved 4. Leukocytosis--resolved 5. s/p Right occipital craniotomy with evacuation of intracerebral hematoma. 02/09/21 6. Encephalopathy, multifactorial--ongoing 7. Uncontrolled hypertension 8. Fever, per ID 9. Status post tracheotomy 02/23 CT head 02/13, IMPRESSION: 1. Expected interval evolution of a right posterior temporal/occipital intraparenchymal hematoma status post decompressive craniotomy. 2. Expected evolution of a small amount of subarachnoid and intraventricular clot. DATE OF SURGERY: 02/09/2021 PREOPERATIVE DIAGNOSIS: Right posterior temporoparietal occipital intracerebral hemorrhage with neurologic deterioration. POSTOPERATIVE DIAGNOSIS: Right posterior temporoparietal occipital intracerebral hemorrhage with neurologic deterioration. OPERATION PERFORMED: Right occipital craniotomy with evacuation of intracerebral hematoma. Plan . Updated 03/04 Neurology input noted Discussed with RN continue sedation Antibiotics per ID Nutritional support updated 03/03 Continue current support Follow neurology input Antibiotics per ID DVT GI prophylaxis Nutritional support Updated 03/02 Continue current support, status post tracheotomy Neurology's note appreciated, new frontal lobe stroke on most recent CT, prognosis for meaningful recovery is poor Discussed with RN, difficult to decrease sedation Antibody to biotics per ID Updated 03/01 Continue current support Antibiotics per ID Patient does not do well off of sedation DVT GI prophylaxis MANJULA Alcaraz MD Mar 04, 2021 08:58
--- NOTE | 2021-03-04 09:38 | PDOC ---
Infectious Disease Note Subjective: Subjective Pt intubated ,sedated ON tpn No new issues per discussion with RN Vital Signs: Vital Signs Vital Signs Date Time Temp Pulse Resp B/P (MAP) Pulse Ox O2 Delivery O2 Flow Rate FiO2 03/04/21 07:52 100 Ventilator 03/04/21 06:00 78 16 158/83 (108) 03/04/21 05:00 100.6 100.6 Physical Exam: PHYSICAL EXAM GENERAL: Sedated on vent, patient is not following commands HEENT: no icterus,NGT + NECK trach present LUNGS: Decreased breath sound at bases HEART: S1, S2 bradycardia ABDOMEN: Soft, nontender, mildly distended EXTREMITIES: + edema, no cyanosis. SKIN:no gen rash NEUROLOGIC: unable to assess Right IJ taken out RT PICC Line clean Medications: Inpatient Meds: Medications reviewed. Labs: Lab Laboratory Tests Test 03/03/21 12:04 03/03/21 17:40 03/03/21 21:06 03/03/21 23:33 Glucose (Fingerstick) 243 mg/dL (70-99) 247 mg/dL (70-99) 191 mg/dL (70-99) 193 mg/dL (70-99) Test 03/04/21 05:55 Sodium Level 135 mmol/L (136-145) Potassium Level 4.7 mmol/L (3.5-5.1) Chloride Level 100 mmol/L (98-107) Carbon Dioxide Level 27 mmol/L (21-32) Anion Gap 8 (6-14) Blood Urea Nitrogen 17 mg/dL (8-26) Creatinine 0.8 mg/dL (0.7-1.3) Estimated GFR (Cockcroft-Gault) 119.3 Glucose Level 261 mg/dL (70-99) Calcium Level 9.0 mg/dL (8.5-10.1) Phosphorus Level 3.7 mg/dL (2.6-4.7) Magnesium Level 1.6 mg/dL (1.8-2.4) Objective: Assessment: 1. Fever.resolved,cult neg 2. Acute hypoxic respiratory failure status post intubation suspected aspiration.sputum cultures NRF Status post tracheostomy 3. Intracranial bleed with mass effect, status post craniotomy and hematoma evacuation. No improvement in neurologic exam 4. Encephalopathy, 5. History of uncontrolled hypertension. [employer] 6. Chronic obstructive pulmonary disease. 7.. MARVIN improved 8.On TPN Plan: Plan of Care cont Zosyn Monitor labs and cults cont supportive care Prognosis remains very poor Neurology following Discussed with nursing staff RAMU DELGADO MD Mar 04, 2021 09:38
[2021-03-04] MEDS: TPN PER PHARMACY MC PRN (11:29)
--- NOTE | 2021-03-04 11:33 | NUR ---
Pharmacy TPN Dosing Note S: COOPER CHAVEZ is a 61 year old M Currently receiving Central Continuous TPN started 02/11/21 B:Pertinent PMH: ILEUS, UNABLE TO START TUBE FEEDS Height: 6 feet, 2 inches Weight: 118.4 kg Current diet: NPO LABS: Sodium: 135 Potassium: 4.7 Chloride: 100 Calcium: 9.0 Corrected Calcium: 10.52 Magnesium: 1.6 CO2: 27 SCr: 0.8 Glucose: 261 Albumin: 2.1 AST: 35 ALT: 67 TPN FORMULA: TPN TYPE: Central Continuous AMINO ACIDS: 98 gm DEXTROSE: 255 gm LIPIDS: 0 gm SODIUM CHLORIDE: - mEq SODIUM ACETATE: - mEq SODIUM PHOSPHATE: - mmol POTASSIUM CHLORIDE: - mEq POTASSIUM ACETATE: 40 mEq POTASSIUM PHOSPHATE: 13.6 mmol MAGNESIUM: 10 mEq CALCIUM: - mEq INSULIN: - units MULTIPLE VITAMIN: 5 ml TRACE ELEMENTS: 1 ml ml(s) TPN PLAN: Potassium level increased, will decrease slightly in tpn. Magnesium level decreased, will increase in tpn. R: Continue TPN as ordered Will monitor electrolytes, glucose, and tolerance to TPN. BRITTNEY CHAKRABORTY, [facility], 03/04/21 1134
--- NOTE | 2021-03-04 12:27 | PDOC ---
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 Status post craniotomy 02/09/2021 Obesity Aspiration Hypertension COPD Acute kidney injury Severe malnutrition History of Present Illness History of Present Illness 03/04/2021 Patient seen and examined in the ICU He is currently on spontaneous respirations via tracheostomy with pressure support of 10 Discussed with RN Chart reviewed Patient still has TPN running but we are going to try to change that to OG feeds later today Sedated with fentanyl propofol and Precedex SCDs in place Moore to bedside drainage Remains critically ill 03/03/2021 Patient seen and examined in the ICU He has a clean dry intact tracheostomy Currently on spontaneous respirations with 10 of pressure support 40% FiO2 Discussed with RN Chart reviewed Has TPN hanging Sedated with fentanyl propofol and Precedex OG feeds are to suction SCDs in place Moore to bedside drainage He remains critically ill 03/02/2021 Patient seen and examined in the ICU We just changed him over to spontaneous respirations with 10 of pressure support and 40% FiO2 Discussed with RN and respiratory therapy He has been able to be on spontaneous respirations during the daytime for the past 3 days but we have placed him back on assist-control at nighttime Trach is clean and in tact Has Moore to bedside drainage SCDs in place OG is to suction Has IV TPN Has IV Zyvox Sedated with Precedex and propofol 03/01/2021 Patient seen and examined in the ICU He remains mechanically ventilated AC/16/500/40 5% with 5 of PEEP trach appears clean dry and intact He is a Moore bedside drainage Sedated with fentanyl and propofol Has TPN hanging Discussed with RN Discussed with case management Chart reviewed He remains very critically ill 02/28/2021 Patient seen and examined in the ICU He remains mechanically ventilated Has a tracheostomy in place Vent settings as follows AC/16/500/45/5 of PEEP Has SCDs in place Moore is to bedside drainage Sedated with Precedex fentanyl and propofol Has IV TPN Chart reviewed Discussed with RN He remains critically 02/27/2021 Patient seen and examined in the ICU He remains mechanically ventilated AC/16/500/40 5% with 5 of PEEP Has tracheostomy in place Has TPN running SCDs are in place Moore to bedside drainage Sedated with fentanyl and propofol Discussed with RN Chart reviewed He remains critically 02/26/2021: Low-grade fever overnight (99.6 F). On vent with FiO2 40%, PEEP 5. S/p tracheostomy 02/23. Per RN, some hypertension overnight (systolic BP 203) requiring IV nicardipine, but this has been titrated down and now able to resume as needed hydralazine. Recommend keep nicardipine on standby to maintain blood pressure <150/90 mmHg. Continue TPN but will likely need PEG tube and eventually long-term acute care. Due to low-grade fever, lines are being changed. Continue Zosyn and Zyvox, per ID. Critical care time 30 minutes spent reviewing charts, reviewing imaging, reviewing labs, and discussion with RN. 02/25/2021: Remains on vent with FiO2 40%, PEEP 5. Afebrile. Plan for follow-up CT head on Saturday. Continue Zosyn, per ID. Blood glucose well controlled. Critical care time 30 minutes spent reviewing charts, reviewing imaging, re viewing labs, and discussion with RN. 02/24/2021: Afebrile. Had tracheostomy performed yesterday. On vent with FiO2 40%, PEEP 5. Continue antibiotics, per ID. Critical care time 30 minutes reviewing labs, reviewing imaging, reviewing charts, discussed with RN. 02/23/2021: Patient remains intubated in ICU, FiO2 40%, PEEP 5. I believe plan is for trach today. Continue daptomycin, Zosyn, and Zyvox, per ID. Critical care time 30 minutes spent reviewing charts, reviewing labs, reviewing imaging, discussion with RN. 02/22/2011: Patient ange intubated in ICU. Febrile today, T-max 100.3. FiO2 40, PEEP 5. Continue treatment with Zosyn, per ID. Continue to wean sedation as tolerated. Plan for trach tomorrow. Critical care time 30 minutes spent reviewing chart, reviewing labs, imaging, and discussion with RN. 02/21/2021: Patient remains intubated in ICU, FiO2 40%, PEEP 5. Afebrile. POD #12, s/p right occipital craniotomy with evacuation of intracerebral hematoma (02/09/21). Chest x-ray today shows improving bibasilar opacities. Continue Zosyn, per ID. Critical care time 30 minutes spent reviewing charts, reviewing labs, reviewing imaging, discussion with RN. 02/20/2021: POD #11 Right occipital craniotomy with evacuation of intracerebral hematoma (02/09/21). Remains sedated on ventilator, FiO2 40%, PEEP 5. Chest x- ray from 02/18 showed unchanged bibasilar opacities; recommending follow-up to ensure resolution, particularly of focal opacities in the right lung base. Continue Zosyn. Continue supportive care. Critical care time 30 minutes spent reviewing charts, reviewing labs, reviewing imaging, discussion with RN. 02/19/2021 POD #11 Right occipital craniotomy with evacuation of intracerebral hematoma sedated on vent Patient seen and examined at bedside Continue antibiotics per infectious disease Weaning ventilator and sedation as tolerated extubation in the next few days Plan of care discussed with bedside nurse Expected interval evolution of a right posterior temporal/occipital intraparenchymal hematoma status post decompressive craniotomy Large right temporo-occipital intraparenchymal bleed, most likely lobar hemorrhage from hypertension, consider venous sinus thrombosis, less likely in this location, aneurysmal bleed, head trauma (also unlikely). craniotomy 7/ evening Suspect of aspiration, respiratory failure, hypertension, chronic obstructive pulmonary disease, improving acute kidney injury cont Zosyn glucose uncontrolled add Lantus 22 UNITS SQ HS elevated troponin suspect stress induced ischemia 36 MIN CC TIME 02/18/2021 POD #10 Right occipital craniotomy with evacuation of intracerebral hematoma sedated on vent Patient seen and examined at bedside Continue antibiotics per infectious disease Weaning ventilator and sedation as tolerated extubation in the next few days Plan of care discussed with bedside nurse Expected interval evolution of a right posterior temporal/occipital intraparenchymal hematoma status post decompressive craniotomy Large right temporo-occipital intraparenchymal bleed, most likely lobar hemorrhage from hypertension, consider venous sinus thrombosis, less likely in this location, aneurysmal bleed, head trauma (also unlikely). Had craniotomy 02/09 evening Suspect of aspiration, respiratory failure, hypertension, chronic obstructive pulmonary disease, improving acute kidney injury cont Zosyn glucose uncontrolled add Lantus 22 UNITS SQ HS 34 MIN CC TIME 02/17/2021 POD #8 Right occipital craniotomy with evacuation of intracerebral hematoma sedated on vent Patient seen and examined at bedside Good response to IV Lasix Continue antibiotics per infectious disease Weaning ventilator and sedation as tolerated extubation in the next few days Plan of care discussed with bedside nurse Expected interval evolution of a right posterior temporal/occipital intraparenchymal hematoma status post decompressive craniotomy Large right temporo-occipital intraparenchymal bleed, most likely lobar hemorrhage from hypertension, consider venous sinus thrombosis, less likely in this location, aneurysmal bleed, head trauma (also unlikely). Had craniotomy 7/ evening Suspect of aspiration, respiratory failure, hypertension, chronic obstructive pulmonary disease, improving acute kidney injury cont Zosyn glucose uncontrolled add Lantus 18 UNITS SQ HS 33 MIN CC TIME 02/16/2021 POD #7 Right occipital craniotomy with evacuation of intracerebral hematoma sedated on vent Patient seen and examined at bedside Good response to IV Lasix Continue antibiotics per infectious disease Weaning ventilator and sedation as tolerated extubation in the next few days Plan of care discussed with bedside nurse Expected interval evolution of a right posterior temporal/occipital intraparenchymal hematoma status post decompressive craniotomy Large right temporo-occipital intraparenchymal bleed, most likely lobar hemorrhage from hypertension, consider venous sinus thrombosis, less likely in this location, aneurysmal bleed, head trauma (also unlikely). Had craniotomy 7/ evening Suspect of aspiration, respiratory failure, hypertension, chronic obstructive pulmonary disease, improving acute kidney injury cont Zosyn glucose uncontrolled add Lantus 14 UNITS SQ HS 35 MIN CC TIME 02/15/2021 POD #6 Right occipital craniotomy with evacuation of intracerebral hematoma sedated on vent Patient seen and examined at bedside Good response to IV Lasix Continue antibiotics per infectious disease Weaning ventilator and sedation as tolerated Hopeful extubation in the next few days Plan of care discussed with bedside nurse Expected interval evolution of a right posterior temporal/occipital intraparenchymal hematoma status post decompressive craniotomy Large right temporo-occipital intraparenchymal bleed, most likely lobar hemorrhage from hypertension, consider venous sinus thrombosis, less likely in this location, aneurysmal bleed, head trauma (also unlikely). Had craniotomy 7/ evening Suspect of aspiration, respiratory failure, hypertension, chronic obstructive pulmonary disease, improving acute kidney injury cont Zosyn glucose uncontrolled add Lantus 35 MIN CC TIME 02/14/2021 POD #5 Right occipital craniotomy with evacuation of intracerebral hematoma sedated on vent Patient seen and examined at bedside Good response to IV Lasix Continue antibiotics per infectious disease Weaning ventilator and sedation as tolerated Hopeful extubation in the next few days Plan of care discussed with bedside nurse Expected interval evolution of a right posterior temporal/occipital intraparenchymal hematoma status post decompressive craniotomy Large right temporo-occipital intraparenchymal bleed, most likely lobar hemorrhage from hypertension, consider venous sinus thrombosis, less likely in this location, aneurysmal bleed, head trauma (also unlikely). Had craniotomy 02/09 evening Suspect of aspiration, respiratory failure, hypertension, chronic obstructive pulmonary disease, improving acute kidney injury cont Zosyn glucose uncontrolled add Lantus 35 MIN CC TIME 02/13/2021 POD #4 Right occipital craniotomy with evacuation of intracerebral hematoma sedated on vent Patient seen and examined at bedside Good response to IV Lasix Continue antibiotics per infectious disease Weaning ventilator and sedation as tolerated Hopeful extubation in the next few days Plan of care discussed with bedside nurse Expected interval evolution of a right posterior temporal/occipital intraparenchymal hematoma status post decompressive craniotomy Large right temporo-occipital intraparenchymal bleed, most likely lobar hemorrhage from hypertension, consider venous sinus thrombosis, less likely in this location, aneurysmal bleed, head trauma (also unlikely). Had craniotomy 02/09 evening Suspect of aspiration, respiratory failure, hypertension, chronic obstructive pulmonary disease, improving acute kidney injury cont Zosyn 35 MIN CC TIME 02/12/2021 Patient seen and examined at bedside Remains intubated and sedated Good response to IV Lasix yesterday had nearly 3 L out; will diurese again today Continue antibiotics per infectious disease Weaning ventilator and sedation as tolerated Hopeful extubation in the next few days Plan of care discussed with bedside nurse 02/11/2021 Patient seen and examined at bedside No major clinical changes overnight however this morning patient has largely increased amount of secretions Chest x-ray concerning for possible pneumonia, will consult ID who recommended starting Zosyn Otherwise he remains intubated and sedated We will follow subspecialist input Plan discussed with bedside RN 02/10/2021 Patient seen and examined at bedside Underwent craniotomy yesterday due to unresponsiveness in the late afternoon; was also intubated Continues to have a poor neurologic status Neurology and neurosurgery following Discussed plan of care with bedside nurse Patient is a 61-year-old male transferred for to the ICU overnight due to hypertensive emergency and intracranial hemorrhage. Patient's mother at bedside provides most the history. She reports that patient had been in his usual state of health until yesterday morning when he reported feeling tired and having a headache. Patient mother reports he normally gets up early and goes outside however this was not the case yesterday. With this headache he took BC powder and went back to bed. Patient's mother reports that he was in and out of bed throughout most of the afternoon. Says patient did not eat anything yesterday which is very unusual fo r him. Approximately 1130 last night she had the patient get up to go to the bathroom and heard him fall. He however is able to get up and returned to bed; unknown if he hit his head at this time. Patient again woke up around 2 AM and woke up his mother asking for orange juice and then proceeded to fall again, she does not think he hit his head at this time. He was taken to hospital and found to have a systolic blood pressure greater than [address] scan found to have an intracranial hemorrhage. Due to severity of his condition he was transferred here. Patient's mother reports she is not aware of any past medical history other than hypertension which he intermittently takes hydrochlorothiazide for. Vitals/I&O Vitals/I&O: Vital Signs Date Time Temp Pulse Resp B/P (MAP) Pulse Ox O2 Delivery O2 Flow Rate FiO2 03/04/21 12:09 100 Ventilator 03/04/21 10:00 82 16 158/90 (112) 03/04/21 08:00 100.9 100.9 I & O 03/03/21 03/03/21 03/04/21 15:00 23:00 07:00 Intake Total 1455.7 ml 1544.3 ml Output Total 690 ml 1420 ml 1525 ml Balance -690 ml 35.7 ml 19.3 ml Physical Exam Physical Exam: GENERAL: Sedated on vent, patient is not following commands HEENT: no icterus,NGT + NECK trach present LUNGS: Decreased breath sound at bases HEART: S1, S2 bradycardia ABDOMEN: Soft, nontender, mildly distended EXTREMITIES: + edema, no cyanosis. SKIN:no gen rash NEUROLOGIC: unable to assess Right IJ taken out RT PICC Line clean General: Other (sedated on vent, trach) Heart: Regular rate Lungs: Clear Abdomen: Normal bowel sounds Extremities: No clubbing, No edema Skin: Other ([place]que[place] removed, dressing changed) Labs Labs: Laboratory Tests Test 03/03/21 17:40 03/03/21 21:06 03/03/21 23:33 03/04/21 05:55 Glucose (Fingerstick) 247 mg/dL (70-99) 191 mg/dL (70-99) 193 mg/dL (70-99) Sodium Level 135 mmol/L (136-145) Potassium Level 4.7 mmol/L (3.5-5.1) Chloride Level 100 mmol/L (98-107) Carbon Dioxide Level 27 mmol/L (21-32) Anion Gap 8 (6-14) Blood Urea Nitrogen 17 mg/dL (8-26) Creatinine 0.8 mg/dL (0.7-1.3) Estimated GFR (Cockcroft-Gault) 119.3 Glucose Level 261 mg/dL (70-99) Calcium Level 9.0 mg/dL (8.5-10.1) Phosphorus Level 3.7 mg/dL (2.6-4.7) Magnesium Level 1.6 mg/dL (1.8-2.4) Assessment and Plan Assessmemt and Plan Respiratory failure requiring intubation Large right temporo-occipital intraparenchymal bleed, most likely lobar hemorr adilene from hypertension, consider venous sinus thrombosis, , aneurysmal bleed, Had craniotomy 02/09 evening Suspect aspiration, respiratory failure, hypertension, chronic obstructive pulmonary disease, improving acute kidney injury MORBID OBESITY Severe malnutrition Plan ICU monitoring Vent weaning (we are able to put him onto spontaneous respiration daily for the past 5 days for a few hours) Resume assist-control at bedtime Trend chest x-rays and ABGs Trach care continue IV Zyvox IV Zosyn Continue SCDs Hoping to change TPN over to OG feeds Moore to bedside drainage Discussed with RN Continue sedation with propofol and fentanyl and Precedex Trend labs Home meds DVT prophylaxis Full code Await further subspecialist input Prognosis good CC time 32minute Comment Review of Relevant I have reviewed the following items neela (where applicable) has been applied. Medications: Current Medications Medications (Trade) Dose Ordered Sig/Lorraine Route PRN Reason Start Time Stop Time Status Last Admin Dose Admin Potassium Acetate 50 meq/Potassium Phosphate 13.6 mmol/Magnesium Sulfate 8 meq/ Multivitamins 5 ml/Zinc/Copper/ Manganese/ Selenium 1 ml/ Total Parenteral Nutrition/Amino Acids/Dextrose 1,800 ml @ 75 mls/hr TPN CONT IV 03/03/21 22:00 03/04/21 21:59 03/03/21 21:54 Justifications for Admission Other Justification JUSTIN LLOYD III DO Mar 04, 2021 12:27
[2021-03-04] MEDS: INSULIN GLARGINE SYRINGE. SQ SCH (21:11)
[2021-03-04] MEDS ORDERED: AMINO ACID IV SCH (22:00)
[2021-03-04] MEDS ORDERED: DEXTROSE 70% IV SCH (22:00)
[2021-03-04] MEDS ORDERED: TOTAL PARENTERAL NUTRITION IV SCH (22:00)
[2021-03-04] MEDS ORDERED: [UNRECOGNIZED DRUG - OTHER] IV SCH (22:00)
[2021-03-05] VITALS (24 sets, daily range): BP systolic 119–172; BP diastolic 68–91
[2021-03-05] MEDS: PIPERACILLIN/TAZOBACTAM 3.375 GM in IV NORMAL SALINE 50ML 50 ML IV SCH ×5 (00:24→23:31)
[2021-03-05] MEDS: INSULIN LISPRO 300 UNITS/3 ML VIAL. SQ SCH ×5 (00:27→23:36)
[2021-03-05] MEDS: DEXMEDETOMIDINE 400 MCG in IV NORMAL SALINE 100ML 96 ML IV PRN ×3 (05:58→20:31)
[2021-03-05] MEDS: PROPOFOL 100 ML IV PRN ×3 (05:59→23:30)
[2021-03-05 07:44] LABS: CALCIUM 7.7 mg/dL (8.5-10.1); CREATININE 0.8 mg/dL (0.7-1.3); GFR 119.3; MAGNESIUM 1.7 mg/dL (1.8-2.4); POTASSIUM 4.2 mmol/L (3.5-5.1)
--- NOTE | 2021-03-05 08:14 | PDOC ---
Infectious Disease Note Subjective: Subjective Pt intubated ,sedated T-max 100.9 ON tpn No new issues per discussion with RN Vital Signs: Vital Signs Vital Signs Date Time Temp Pulse Resp B/P (MAP) Pulse Ox O2 Delivery O2 Flow Rate FiO2 03/05/21 06:00 62 18 144/88 (106) 97 Ventilator 03/05/21 04:00 97.3 97.3 Physical Exam: PHYSICAL EXAM GENERAL: Sedated on vent, patient is not following commands HEENT: no icterus,NGT + NECK trach present LUNGS: Decreased breath sound at bases HEART: S1, S2 bradycardia ABDOMEN: Soft, nontender, mildly distended EXTREMITIES: + edema, no cyanosis. SKIN:no gen rash NEUROLOGIC: unable to assess Right IJ taken out RT PICC Line clean Medications: Inpatient Meds: Medications reviewed. Labs: Lab Laboratory Tests Test 03/04/21 12:32 03/04/21 18:23 03/04/21 21:07 03/05/21 00:26 Glucose (Fingerstick) 217 mg/dL (70-99) 230 mg/dL (70-99) 210 mg/dL (70-99) 185 mg/dL (70-99) Test 03/05/21 07:15 03/05/21 07:16 Sodium Level 130 mmol/L (136-145) Potassium Level 4.2 mmol/L (3.5-5.1) Chloride Level 96 mmol/L (98-107) Carbon Dioxide Level 27 mmol/L (21-32) Anion Gap 7 (6-14) Blood Urea Nitrogen 17 mg/dL (8-26) Creatinine 0.8 mg/dL (0.7-1.3) Estimated GFR (Cockcroft-Gault) 119.3 Glucose Level 210 mg/dL (70-99) Calcium Level 7.7 mg/dL (8.5-10.1) Magnesium Level 1.7 mg/dL (1.8-2.4) Glucose (Fingerstick) 182 mg/dL (70-99) Objective: Assessment: 1. Fever.resolved,cult neg 2. Acute hypoxic respiratory failure status post intubation suspected aspiration.sputum cultures NRF Status post tracheostomy 3. Intracranial bleed with mass effect, status post craniotomy and hematoma evacuation. No improvement in neurologic exam 4. Encephalopathy, 5. History of uncontrolled hypertension. 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 Chronic obstructive pulmonary disease. 7.. MARVIN improved 8.On TPN Plan: Plan of Care cont Zosyn Restart Zyvox Monitor labs and cults cont supportive care Prognosis remains very poor Neurology following Discussed with nursing staff RAMU DELGADO MD Mar 05, 2021 08:14
[2021-03-05] MEDS: POLYETHYLENE GLYCOL 3350 17 GM PACKET. PO SCH (09:53)
[2021-03-05] MEDS: PANTOPRAZOLE IV PUSH 40 MG VIAL. IVP SCH (09:53)
[2021-03-05] MEDS: DOCUSATE 100 MG/10 ML SOLUTION. PO SCH (09:53)
[2021-03-05] MEDS: fentaNYL HIGH DOSE PCA 55 ML IV PRN (09:59)
--- NOTE | 2021-03-05 10:53 | PDOC ---
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 Status post craniotomy 02/09/2021 Obesity Aspiration Hypertension COPD Acute kidney injury Severe malnutrition History of Present Illness History of Present Illness 03/05/2021 Patient seen and examined in the ICU He is still intubated but on spontaneous respirations 10 of pressure support with 40% FiO2 We are considering starting OG feeds today but still currently has TPN hanging Moore to bedside drainage Sedated with propofol fentanyl and Dex Discussed with RN Chart reviewed He remains critically ill 03/04/2021 Patient seen and examined in the ICU He is currently on spontaneous respirations via tracheostomy with pressure support of 10 Discussed with RN Chart reviewed Patient still has TPN running but we are going to try to change that to OG feeds later today Sedated with fentanyl propofol and Precedex SCDs in place Moore to bedside drainage Remains critically ill 03/03/2021 Patient seen and examined in the ICU He has a clean dry intact tracheostomy Currently on spontaneous respirations with 10 of pressure support 40% FiO2 Discussed with RN Chart reviewed Has TPN hanging Sedated with fentanyl propofol and Precedex OG feeds are to suction SCDs in place Moore to bedside drainage He remains critically ill 03/02/2021 Patient seen and examined in the ICU We just changed him over to spontaneous respirations with 10 of pressure support and 40% FiO2 Discussed with RN and respiratory therapy He has been able to be on spontaneous respirations during the daytime for the past 3 days but we have placed him back on assist-control at nighttime Trach is clean and in tact Has Moore to bedside drainage SCDs in place OG is to suction Has IV TPN Has IV Zyvox Sedated with Precedex and propofol 03/01/2021 Patient seen and examined in the ICU He remains mechanically ventilated AC/16/500/40 5% with 5 of PEEP trach appears clean dry and intact He is a Moore bedside drainage Sedated with fentanyl and propofol Has TPN hanging Discussed with RN Discussed with case management Chart reviewed He remains very critically ill 02/28/2021 Patient seen and examined in the ICU He remains mechanically ventilated Has a tracheostomy in place Vent settings as follows AC/16/500/45/5 of PEEP Has SCDs in place Moore is to bedside drainage Sedated with Precedex fentanyl and propofol Has IV TPN Chart reviewed Discussed with RN He remains critically 02/27/2021 Patient seen and examined in the ICU He remains mechanically ventilated AC/16/500/40 5% with 5 of PEEP Has tracheostomy in place Has TPN running SCDs are in place Moore to bedside drainage Sedated with fentanyl and propofol Discussed with RN Chart reviewed He remains critically 02/26/2021: Low-grade fever overnight (99.6 F). On vent with FiO2 40%, PEEP 5. S/p tracheostomy 02/23. Per RN, some hypertension overnight (systolic BP 203) requiring IV nicardipine, but this has been titrated down and now able to resume as needed hydralazine. Recommend keep nicardipine on standby to maintain blood pressure <150/90 mmHg. Continue TPN but will likely need PEG tube and eventually long-term acute care. Due to low-grade fever, lines are being changed. Continue Zosyn and Zyvox, per ID. Critical care time 30 minutes spent reviewing charts, reviewing imaging, reviewing labs, and discussion with RN. 02/25/2021: Remains on vent with FiO2 40%, PEEP 5. Afebrile. Plan for follow-up CT head on Saturday. Continue Zosyn, per ID. Blood glucose well controlled. Critical care time 30 minutes spent reviewing charts, reviewing imaging, reviewing labs, and discussion with RN. 02/24/2021: Afebrile. Had tracheostomy performed yesterday. On vent with FiO2 40%, PEEP 5. Continue antibiotics, per ID. Critical care time 30 minutes reviewing labs, reviewing imaging, reviewing charts, discussed with RN. 02/23/2021: Patient remains intubated in ICU, FiO2 40%, PEEP 5. I believe plan is for trach today. Continue daptomycin, Zosyn, and Zyvox, per ID. Critical care time 30 minutes spent reviewing charts, reviewing labs, reviewing imaging, discussion with RN. 02/22/2011: Patient ange intubated in ICU. Febrile today, T-max 100.3. FiO2 40, PEEP 5. Continue treatment with Zosyn, per ID. Continue to wean sedation as to lerated. Plan for trach tomorrow. Critical care time 30 minutes spent reviewing chart, reviewing labs, imaging, and discussion with RN. 02/21/2021: Patient remains intubated in ICU, FiO2 40%, PEEP 5. Afebrile. POD #12, s/p right occipital craniotomy with evacuation of intracerebral hematoma (02/09/21). Chest x-ray today shows improving bibasilar opacities. Continue Zosyn, per ID. Critical care time 30 minutes spent reviewing charts, reviewing labs, reviewing imaging, discussion with RN. 02/20/2021: POD #11 Right occipital craniotomy with evacuation of intracerebral hematoma (02/09/21). Remains sedated on ventilator, FiO2 40%, PEEP 5. Chest x- ray from 02/18 showed unchanged bibasilar opacities; recommending follow-up to ensure resolution, particularly of focal opacities in the right lung base. Continue Zosyn. Continue supportive care. Critical care time 30 minutes spent reviewing charts, reviewing labs, reviewing imaging, discussion with RN. 02/19/2021 POD #11 Right occipital craniotomy with evacuation of intracerebral hematoma sedated on vent Patient seen and examined at bedside Continue antibiotics per infectious disease Weaning ventilator and sedation as tolerated extubation in the next few days Plan of care discussed with bedside nurse Expected interval evolution of a right posterior temporal/occipital intraparenchymal hematoma status post decompressive craniotomy Large right temporo-occipital intraparenchymal bleed, most likely lobar hemorrhage from hypertension, consider venous sinus thrombosis, less likely in this location, aneurysmal bleed, head trauma (also unlikely). craniotomy 02/09 evening Suspect of aspiration, respiratory failure, hypertension, chronic obstructive pulmonary disease, improving acute kidney injury cont Zosyn glucose uncontrolled add Lantus 22 UNITS SQ HS elevated troponin suspect stress induced ischemia 36 MIN CC TIME 02/18/2021 POD #10 Right occipital craniotomy with evacuation of intracerebral hematoma sedated on vent Patient seen and examined at bedside Continue antibiotics per infectious disease Weaning ventilator and sedation as tolerated extubation in the next few days Plan of care discussed with bedside nurse Expected interval evolution of a right posterior temporal/occipital intraparenchymal hematoma status post decompressive craniotomy Large right temporo-occipital intraparenchymal bleed, most likely lobar hemorrhage from hypertension, consider venous sinus thrombosis, less likely in this location, aneurysmal bleed, head trauma (also unlikely). Had craniotomy 02/09 evening Suspect of aspiration, respiratory failure, hypertension, chronic obstructive pulmonary disease, improving acute kidney injury cont Zosyn glucose uncontrolled add Lantus 22 UNITS SQ HS 34 MIN CC TIME 02/17/2021 POD #8 Right occipital craniotomy with evacuation of intracerebral hematoma sedated on vent Patient seen and examined at bedside Good response to IV Lasix Continue antibiotics per infectious disease Weaning ventilator and sedation as tolerated extubation in the next few days Plan of care discussed with bedside nurse Expected interval evolution of a right posterior temporal/occipital in traparenchymal hematoma status post decompressive craniotomy Large right temporo-occipital intraparenchymal bleed, most likely lobar hemorrhage from hypertension, consider venous sinus thrombosis, less likely in this location, aneurysmal bleed, head trauma (also unlikely). Had craniotomy / evening Suspect of aspiration, respiratory failure, hypertension, chronic obstructive pulmonary disease, improving acute kidney injury cont Zosyn glucose uncontrolled add Lantus 18 UNITS SQ HS 33 MIN CC TIME 02/16/2021 POD #7 Right occipital craniotomy with evacuation of intracerebral hematoma sedated on vent Patient seen and examined at bedside Good response to IV Lasix Continue antibiotics per infectious disease Weaning ventilator and sedation as tolerated extubation in the next few days Plan of care discussed with bedside nurse Expected interval evolution of a right posterior temporal/occipital intraparenchymal hematoma status post decompressive craniotomy Large right temporo-occipital intraparenchymal bleed, most likely lobar hemorrhage from hypertension, consider venous sinus thrombosis, less likely in this location, aneurysmal bleed, head trauma (also unlikely). Had craniotomy 02/09 evening Suspect of aspiration, respiratory failure, hypertension, chronic obstructive pulmonary disease, improving acute kidney injury cont Zosyn glucose uncontrolled add Lantus 14 UNITS SQ HS 35 MIN CC TIME 02/15/2021 POD #6 Right occipital craniotomy with evacuation of intracerebral hematoma sedated on vent Patient seen and examined at bedside Good response to IV Lasix Continue antibiotics per infectious disease Weaning ventilator and sedation as tolerated Hopeful extubation in the next few days Plan of care discussed with bedside nurse Expected interval evolution of a right posterior temporal/occipital intraparenchymal hematoma status post decompressive craniotomy Large right temporo-occipital intraparenchymal bleed, most likely lobar hemorrhage from hypertension, consider venous sinus thrombosis, less likely in this location, aneurysmal bleed, head trauma (also unlikely). Had craniotomy 02/09 evening Suspect of aspiration, respiratory failure, hypertension, chronic obstructive pulmonary disease, improving acute kidney injury cont Zosyn glucose uncontrolled add Lantus 35 MIN CC TIME 02/14/2021 POD #5 Right occipital craniotomy with evacuation of intracerebral hematoma sedated on vent Patient seen and examined at bedside Good response to IV Lasix Continue antibiotics per infectious disease Weaning ventilator and sedation as tolerated Hopeful extubation in the next few days Plan of care discussed with bedside nurse Expected interval evolution of a right posterior temporal/occipital intraparenchymal hematoma status post decompressive craniotomy Large right temporo-occipital intraparenchymal bleed, most likely lobar hemorrhage from hypertension, consider venous sinus thrombosis, less likely in this location, aneurysmal bleed, head trauma (also unlikely). Had craniotomy 02/09 evening Suspect of aspiration, respiratory failure, hypertension, chronic obstructive pulmonary disease, improving acute kidney injury cont Zosyn glucose uncontrolled add Lantus 35 MIN CC TIME 02/13/2021 POD #4 Right occipital craniotomy with evacuation of intracerebral hematoma sedated on vent Patient seen and examined at bedside Good response to IV Lasix Continue antibiotics per infectious disease Weaning ventilator and sedation as tolerated Hopeful extubation in the next few days Plan of care discussed with bedside nurse Expected interval evolution of a right posterior temporal/occipital intraparenchymal hematoma status post decompressive craniotomy Large right temporo-occipital intraparenchymal bleed, most likely lobar hemorrhage from hypertension, consider venous sinus thrombosis, less likely in this location, aneurysmal bleed, head trauma (also unlikely). Had craniotomy 02/09 evening Suspect of aspiration, respiratory failure, hypertension, chronic obstructive pulmonary disease, improving acute kidney injury cont Zosyn 35 MIN CC TIME 02/12/2021 Patient seen and examined at bedside Remains intubated and sedated Good response to IV Lasix yesterday had nearly 3 L out; will diurese again today Continue antibiotics per infectious disease Weaning ventilator and sedation as tolerated Hopeful extubation in the next few days Plan of care discussed with bedside nurse 02/11/2021 Patient seen and examined at bedside No major clinical changes overnight however this morning patient has largely increased amount of secretions Chest x-ray concerning for possible pneumonia, will consult ID who recommended starting Zosyn Otherwise he remains intubated and sedated We will follow subspecialist input Plan discussed with bedside RN 02/10/2021 Patient seen and examined at bedside Underwent craniotomy yesterday due to unresponsiveness in the late afternoon; was also intubated Continues to have a poor neurologic status Neurology and neurosurgery following Discussed plan of care with bedside nurse Patient is a 61-year-old male transferred for to the ICU overnight due to hypertensive emergency and intracranial hemorrhage. Patient's mother at bedside provides most the history. She reports that patient had been in his usual state of health until yesterday morning when he reported feeling tired and having a headache. Patient mother reports he normally gets up early and goes outside however this was not the case yesterday. With this headache he took BC powder and went back to bed. Patient's mother reports that he was in and out of bed throughout most of the afternoon. Says patient did not eat anything yesterday which is very unusual for him. Approximately 1130 last night she had the patient get up to go to the bathroom and heard him fall. He however is able to get up and returned to bed; unknown if he hit his head at this time. Patient again woke up around 2 AM and woke up his mother asking for orange juice and then proceeded to fall again, she does not think he hit his head at this time. He was taken to hospital and found to have a systolic blood pressure greater than [address] scan found to have an intracranial hemorrhage. Due to severity of his condition he was transferred here. Patient's mother reports she is not aware of any past medical history other than hypertension which he intermittently takes hydrochlorothiazide for. Vitals/I&O Vitals/I&O: Vital Signs Date Time Temp Pulse Resp B/P (MAP) Pulse Ox O2 Delivery O2 Flow Rate FiO2 03/05/21 10:29 100 03/05/21 10:12 Ventilator 03/05/21 06:00 62 18 144/88 (106) 03/05/21 04:00 97.3 97.3 I & O 03/04/21 03/04/21 03/05/21 15:00 23:00 07:00 Intake Total 50 ml 1484 ml Output Total 1275 ml 720 ml 840 ml Balance -1275 ml -670 ml 644 ml Physical Exam Physical Exam: GENERAL: Sedated on vent, patient is not following commands HEENT: no icterus,NGT + NECK trach present LUNGS: Decreased breath sound at bases HEART: S1, S2 bradycardia ABDOMEN: Soft, nontender, mildly distended EXTREMITIES: + edema, no cyanosis. SKIN:no gen rash NEUROLOGIC: unable to assess Right IJ taken out RT PICC Line clean General: Other (sedated on vent, trach) Heart: Regular rate Lungs: Clear Abdomen: Normal bowel sounds Extremities: No clubbing, No edema Skin: Other (Stout removed, dressing changed) Labs Labs: Laboratory Tests Test 03/04/21 12:32 03/04/21 18:23 03/04/21 21:07 03/05/21 00:26 Glucose (Fingerstick) 217 mg/dL (70-99) 230 mg/dL (70-99) 210 mg/dL (70-99) 185 mg/dL (70-99) Test 03/05/21 07:15 03/05/21 07:16 Sodium Level 130 mmol/L (136-145) Potassium Level 4.2 mmol/L (3.5-5.1) Chloride Level 96 mmol/L (98-107) Carbon Dioxide Level 27 mmol/L (21-32) Anion Gap 7 (6-14) Blood Urea Nitrogen 17 mg/dL (8-26) Creatinine 0.8 mg/dL (0.7-1.3) Estimated GFR (Cockcroft-Gault) 119.3 Glucose Level 210 mg/dL (70-99) Calcium Level 7.7 mg/dL (8.5-10.1) Magnesium Level 1.7 mg/dL (1.8-2.4) Glucose (Fingerstick) 182 mg/dL (70-99) Assessment and Plan Assessmemt and Plan Respiratory failure requiring intubation Large right temporo-occipital intraparenchymal bleed, most likely lobar hemorrhage from hypertension, consider venous sinus thrombosis, , aneurysmal bleed, Had craniotomy 02/09 evening Suspect aspiration, respiratory failure, hypertension, chronic obstructive pulmonary disease, improving acute kidney injury MORBID OBESITY Severe malnutrition Plan ICU monitoring Continue spontaneous respirations with pressure support Trend chest x-rays and ABGs Trach care continue Hoping to change TPN over to NG feeds later today IV Zyvox IV Zosyn Continue SCDs Hoping to change TPN over to OG feeds Moore to bedside drainage Discussed with RN Continue sedation with propofol and fentanyl and Precedex Trend labs Home meds DVT prophylaxis Full code Await further subspecialist input Prognosis guarded at best CC time 31 minutes Comment Review of Relevant I have reviewed the following items neela (where applicable) has been applied. Medications: Current Medications Medications (Trade) Dose Ordered Sig/Lorraine Route PRN Reason Start Time Stop Time Status Last Admin Dose Admin Potassium Acetate 40 meq/Potassium Phosphate 13.6 mmol/Magnesium Sulfate 10 meq/ Multivitamins 5 ml/Zinc/Copper/ Manganese/ Selenium 1 ml/ Total Parenteral Nutrition/Amino Acids/Dextrose 1,800 ml @ 75 mls/hr TPN CONT IV 03/04/21 22:00 03/05/21 21:59 03/04/21 22:16 Linezolid/Dextrose 300 ml @ 300 mls/hr Q12HR IV 03/05/21 09:00 03/05/21 09:52 Justifications for Admission Other Justification JUSTIN LLOYD III DO Mar 05, 2021 10:53
[2021-03-05] MEDS: TPN PER PHARMACY MC PRN (13:03)
--- NOTE | 2021-03-05 13:05 | NUR ---
Pharmacy TPN Dosing Note S: COOPER CHAVEZ is a 61 year old M Currently receiving Central Continuous TPN started 02/11/21 B:Pertinent PMH: ILEUS, UNABLE TO START TUBE FEEDS Height: 6 feet, 2 inches Weight: 113.0 kg Current diet: NPO LABS: Sodium: 130 Potassium: 4.2 Chloride: 96 Calcium: 7.7 Corrected Calcium: 9.22 Magnesium: 1.7 CO2: 27 SCr: 0.8 Glucose: 210 Albumin: 2.1 AST: 35 ALT: 67 TPN FORMULA: TPN TYPE: Central Continuous AMINO ACIDS: 98 gm DEXTROSE: 255 gm LIPIDS: 0 gm SODIUM CHLORIDE: 40 mEq SODIUM ACETATE: - mEq SODIUM PHOSPHATE: - mmol POTASSIUM CHLORIDE: - mEq POTASSIUM ACETATE: 40 mEq POTASSIUM PHOSPHATE: 13.6 mmol MAGNESIUM: 10 mEq CALCIUM: - mEq INSULIN: - units MULTIPLE VITAMIN: 5 ml TRACE ELEMENTS: 1 ml ml(s) TPN PLAN: Add NaCl to tpn. R: Continue TPN as ordered Will monitor electrolytes, glucose, and tolerance to TPN. BRITTNEY CHAKRABORTY ROPER [facility], 03/05/21 [id number]
--- NOTE | 2021-03-05 13:34 | PDOC ---
PULMONARY PROGRESS NOTES DATE: 03/05/21 TIME: 13:34 Subjective remains on vent PS 10 and 40% no overnight events status post tracheotomy on 02/23 Vitals Vital Signs Date Time Temp Pulse Resp B/P (MAP) Pulse Ox O2 Delivery O2 Flow Rate FiO2 03/05/21 12:07 97 Ventilator 03/05/21 10:00 62 14 146/88 (107) 03/05/21 08:00 98.0 98.0 Comments ros unable to obtain intubated on vent Lungs: Clear Cardiovascular: S1, S2 Abdomen: Soft, Non-tender Extremities: No Edema Skin: Warm Labs Laboratory Tests Test 03/03/21 17:40 03/03/21 21:06 03/03/21 23:33 03/04/21 05:55 Glucose (Fingerstick) 247 mg/dL (70-99) 191 mg/dL (70-99) 193 mg/dL (70-99) Sodium Level 135 mmol/L (136-145) Potassium Level 4.7 mmol/L (3.5-5.1) Chloride Level 100 mmol/L (98-107) Carbon Dioxide Level 27 mmol/L (21-32) Anion Gap 8 (6-14) Blood Urea Nitrogen 17 mg/dL (8-26) Creatinine 0.8 mg/dL (0.7-1.3) Estimated GFR (Cockcroft-Gault) 119.3 Glucose Level 261 mg/dL (70-99) Calcium Level 9.0 mg/dL (8.5-10.1) Phosphorus Level 3.7 mg/dL (2.6-4.7) Magnesium Level 1.6 mg/dL (1.8-2.4) Test 03/04/21 12:32 03/04/21 18:23 03/04/21 21:07 03/05/21 00:26 Glucose (Fingerstick) 217 mg/dL (70-99) 230 mg/dL (70-99) 210 mg/dL (70-99) 185 mg/dL (70-99) Test 03/05/21 07:15 03/05/21 07:16 03/05/21 12:34 Sodium Level 130 mmol/L (136-145) Potassium Level 4.2 mmol/L (3.5-5.1) Chloride Level 96 mmol/L (98-107) Carbon Dioxide Level 27 mmol/L (21-32) Anion Gap 7 (6-14) Blood Urea Nitrogen 17 mg/dL (8-26) Creatinine 0.8 mg/dL (0.7-1.3) Estimated GFR (Cockcroft-Gault) 119.3 Glucose Level 210 mg/dL (70-99) Calcium Level 7.7 mg/dL (8.5-10.1) Magnesium Level 1.7 mg/dL (1.8-2.4) Glucose (Fingerstick) 182 mg/dL (70-99) 210 mg/dL (70-99) Laboratory Tests Test 03/04/21 18:23 03/04/21 21:07 03/05/21 00:26 03/05/21 07:15 Glucose (Fingerstick) 230 mg/dL (70-99) 210 mg/dL (70-99) 185 mg/dL (70-99) Sodium Level 130 mmol/L (136-145) Potassium Level 4.2 mmol/L (3.5-5.1) Chloride Level 96 mmol/L (98-107) Carbon Dioxide Level 27 mmol/L (21-32) Anion Gap 7 (6-14) Blood Urea Nitrogen 17 mg/dL (8-26) Creatinine 0.8 mg/dL (0.7-1.3) Estimated GFR (Cockcroft-Gault) 119.3 Glucose Level 210 mg/dL (70-99) Calcium Level 7.7 mg/dL (8.5-10.1) Magnesium Level 1.7 mg/dL (1.8-2.4) Test 03/05/21 07:16 03/05/21 12:34 Glucose (Fingerstick) 182 mg/dL (70-99) 210 mg/dL (70-99) Comments CXR 02/21/21 IMPRESSION: 1. Stable life support devices. 2. Improving bibasilar opacities.. CXR 02/18/21 IMPRESSION: Unchanged bibasilar opacities. Recommend follow-up to ensure resolution, particularly of focal opacities in the right lung base. CXR 02/17/21 IMPRESSION: 1. Stable life support devices. 2. Stable bibasilar opacities. 3. Stable small left pleural effusion. IMPRESSION: Chest x-ray 02/13 1. Stable support lines and tubes. 2. Severe right upper lobe predominant bullous emphysema. 3. Stable right perihilar linear atelectasis or infiltrate superimposed on diffuse interstitial prominence and small pleural effusions. Impression . IMPRESSION: 1. Acute hypoxic respiratory failure multifactorial, predominantly to intrapare nchymal cerebral hematoma. Status post tracheostomy 02/[address] reveals evidence of a new moderate-sized stroke of frontal lobe, per neurology 3. Long history of tobaccoism. CT angiogram showed bullous emphysema in the upper lobes. 3. Acute kidney injury--resolved 4. Leukocytosis--resolved 5. s/p Right occipital craniotomy with evacuation of intracerebral hematoma. 02/09/21 6. Encephalopathy, multifactorial--ongoing 7. Uncontrolled hypertension 8. Fever, per ID 9. Status post tracheotomy 02/23 CT head 02/13, IMPRESSION: 1. Expected interval evolution of a right posterior temporal/occipital intraparenchymal hematoma status post decompressive craniotomy. 2. Expected evolution of a small amount of subarachnoid and intraventricular lori t. DATE OF SURGERY: 02/09/2021 PREOPERATIVE DIAGNOSIS: Right posterior temporoparietal occipital intracerebral hemorrhage with neurologic deterioration. POSTOPERATIVE DIAGNOSIS: Right posterior temporoparietal occipital intracerebral hemorrhage with neurologic deterioration. OPERATION PERFORMED: Right occipital craniotomy with evacuation of intracerebral hematoma. Plan . Updated 03/05/21 Continue current vent support PS 10 and 40% Follow CXR/ABG PRN Follow ID recs for ABX Follow neurology recs Continue TPN for nutritional support, start to transition to TF DVT/GI PPX D/W RN and RT Social work for DC planning Updated 03/04 Neurology input noted Discussed with RN continue sedation Antibiotics per ID Nutritional support updated 03/03 Continue current support Follow neurology input Antibiotics per ID DVT GI prophylaxis Nutritional support MANJULA PADILLA MD Mar 05, 2021 13:34
[2021-03-05] MEDS ORDERED: MAGNESIUM SULFATE 2GM 50 ML IV ONE (14:00)
[2021-03-05] MEDS: INSULIN GLARGINE SYRINGE. SQ SCH (20:32)
[2021-03-05] MEDS ORDERED: TOTAL PARENTERAL NUTRITION IV SCH (22:00)
[2021-03-05] MEDS ORDERED: DEXTROSE 70% IV SCH (22:00)
[2021-03-05] MEDS ORDERED: [UNRECOGNIZED DRUG - OTHER] IV SCH (22:00)
[2021-03-05] MEDS ORDERED: AMINO ACID IV SCH (22:00)
[2021-03-06] VITALS (26 sets, daily range): BP systolic 108–210; BP diastolic 62–116
[2021-03-06] MEDS: DEXMEDETOMIDINE 400 MCG in IV NORMAL SALINE 100ML 96 ML IV PRN ×6 (01:56→21:35)
[2021-03-06] MEDS: PROPOFOL 100 ML IV PRN ×6 (03:30→23:42)
[2021-03-06] MEDS: PIPERACILLIN/TAZOBACTAM 3.375 GM in IV NORMAL SALINE 50ML 50 ML IV SCH ×4 (05:31→23:34)
[2021-03-06] MEDS: INSULIN LISPRO 300 UNITS/3 ML VIAL. SQ SCH ×4 (05:32→23:35)
[2021-03-06 06:01] LABS: CREATININE 0.8 mg/dL (0.7-1.3); GFR 119.3; POTASSIUM 4.3 mmol/L (3.5-5.1)
--- NOTE | 2021-03-06 08:20 | PDOC ---
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 intubated but on spontaneous respirations 10 of pressure support with 40% FiO2 considering starting OG feeds but still currently has TPN hanging Moore to bedside drainage Sedated with propofol fentanyl and Dex Discussed with RN Chart reviewed remains critically ill 33 min cc time 03/05/2021 Patient seen and examined in the ICU He is still intubated but on spontaneous respirations 10 of pressure support with 40% FiO2 We are considering starting OG feeds today but still currently has TPN hanging Moore to bedside drainage Sedated with propofol fentanyl and Dex Discussed with RN Chart reviewed He remains critically ill 03/04/2021 Patient seen and examined in the ICU He is currently on spontaneous respirations via tracheostomy with pressure support of 10 Discussed with RN Chart reviewed Patient still has TPN running but we are going to try to change that to OG feeds later today Sedated with fentanyl propofol and Precedex SCDs in place Moore to bedside drainage Remains critically ill 03/03/2021 Patient seen and examined in the ICU He has a clean dry intact tracheostomy Currently on spontaneous respirations with 10 of pressure support 40% FiO2 Discussed with RN Chart reviewed Has TPN hanging Sedated with fentanyl propofol and Precedex OG feeds are to suction SCDs in place Moore to bedside drainage He remains critically ill 03/02/2021 Patient seen and examined in the ICU We just changed him over to spontaneous respirations with 10 of pressure support and 40% FiO2 Discussed with RN and respiratory therapy He has been able to be on spontaneous respirations during the daytime for the past 3 days but we have placed him back on assist-control at nighttime Trach is clean and in tact Has Moore to bedside drainage SCDs in place OG is to suction Has IV TPN Has IV Zyvox Sedated with Precedex and propofol 03/01/2021 Patient seen and examined in the ICU He remains mechanically ventilated AC/16/500/40 5% with 5 of PEEP trach appears clean dry and intact He is a Moore bedside drainage Sedated with fentanyl and propofol Has TPN hanging Discussed with RN Discussed with case management Chart reviewed He remains very critically ill 02/28/2021 Patient seen and examined in the ICU He remains mechanically ventilated Has a tracheostomy in place Vent settings as follows AC/16/500/45/5 of PEEP Has SCDs in place Moore is to bedside drainage Sedated with Precedex fentanyl and propofol Has IV TPN Chart reviewed Discussed with RN He remains critically 02/27/2021 Patient seen and examined in the ICU He remains mechanically ventilated AC/16/500/40 5% with 5 of PEEP Has tracheostomy in place Has TPN running SCDs are in place Moore to bedside drainage Sedated with fentanyl and propofol Discussed with RN Chart reviewed He remains critically 02/26/2021: Low-grade fever overnight (99.6 F). On vent with FiO2 40%, PEEP 5. S/p tracheostomy 02/23. Per RN, some hypertension overnight (systolic BP 203) requiring IV nicardipine, but this has been titrated down and now able to resume as needed hydralazine. Recommend keep nicardipine on standby to maintain blood pressure <150/90 mmHg. Continue TPN but will likely need PEG tube and eventually long-term acute care. Due to low-grade fever, lines are being changed. Continue Zosyn and Zyvox, per ID. Critical care time 30 minutes spent reviewing charts, reviewing imaging, reviewing labs, and discussion with RN. 02/25/2021: Remains on vent with FiO2 40%, PEEP 5. Afebrile. Plan for follow-up CT head on Saturday. Continue Zosyn, per ID. Blood glucose well controlled. Critical care time 30 minutes spent reviewing charts, reviewing imaging, reviewing labs, and discussion with RN. 02/24/2021: Afebrile. Had tracheostomy performed yesterday. On vent with FiO2 40%, PEEP 5. Continue antibiotics, per ID. Critical care time 30 minutes reviewing labs, reviewing imaging, reviewing charts, discussed with RN. 02/23/2021: Patient remains intubated in ICU, FiO2 40%, PEEP 5. I believe plan is for trach today. Continue daptomycin, Zosyn, and Zyvox, per ID. Critical care time 30 minutes spent reviewing charts, reviewing labs, reviewing imaging, discussion with RN. 02/22/2011: Patient ange intubated in ICU. Febrile today, T-max 100.3. FiO2 40, PEEP 5. Continue treatment with Zosyn, per ID. Continue to wean sedation as tolerated. Plan for trach tomorrow. Critical care time 30 minutes spent reviewing chart, reviewing labs, imaging, and discussion with RN. 02/21/2021: Patient remains intubated in ICU, FiO2 40%, PEEP 5. Afebrile. POD #12, s/p right occipital craniotomy with evacuation of intracerebral hematoma (02/09/21). Chest x-ray today shows improving bibasilar opacities. Continue Zosyn, per ID. Critical care time 30 minutes spent reviewing charts, reviewing labs, reviewing imaging, discussion with RN. 02/20/2021: POD #11 Right occipital craniotomy with evacuation of intracerebral hematoma (02/09/21). Remains sedated on ventilator, FiO2 40%, PEEP 5. Chest x- ray from 02/18 showed unchanged bibasilar opacities; recommending follow-up to ensure resolution, particularly of focal opacities in the right lung base. Continue Zosyn. Continue supportive care. Critical care time 30 minutes spent reviewing charts, reviewing labs, reviewing imaging, discussion with RN. 02/19/2021 POD #11 Right occipital craniotomy with evacuation of intracerebral hematoma sedated on vent Patient seen and examined at bedside Continue antibiotics per infectious disease Weaning ventilator and sedation as tolerated extubation in the next few days Plan of care discussed with bedside nurse Expected interval evolution of a right posterior temporal/occipital intraparenchymal hematoma status post decompressive craniotomy Large right temporo-occipital intraparenchymal bleed, most likely lobar hemorrhage from hypertension, consider venous sinus thrombosis, less likely in this location, aneurysmal bleed, head trauma (also unlikely). craniotomy 02/09 evening Suspect of aspiration, respiratory failure, hypertension, chronic obstructive pulmonary disease, improving acute kidney injury cont Zosyn glucose uncontrolled add Lantus 22 UNITS SQ HS elevated troponin suspect stress induced ischemia 36 MIN CC TIME 02/18/2021 POD #10 Right occipital craniotomy with evacuation of intracerebral hematoma sedated on vent Patient seen and examined at bedside Continue antibiotics per infectious disease Weaning ventilator and sedation as tolerated extubation in the next few days Plan of care discussed with bedside nurse Expected interval evolution of a right posterior temporal/occipital intraparenchymal hematoma status post decompressive craniotomy Large right temporo-occipital intraparenchymal bleed, most likely lobar hemorrhage from hypertension, consider venous sinus thrombosis, less likely in this location, aneurysmal bleed, head trauma (also unlikely). Had craniotomy 7/ evening Suspect of aspiration, respiratory failure, hypertension, chronic obstructive pulmonary disease, improving acute kidney injury cont Zosyn glucose uncontrolled add Lantus 22 UNITS SQ HS 34 MIN CC TIME 02/17/2021 POD #8 Right occipital craniotomy with evacuation of intracerebral hematoma sedated on vent Patient seen and examined at bedside Good response to IV Lasix Continue antibiotics per infectious disease Weaning ventilator and sedation as tolerated extubation in the next few days Plan of care discussed with bedside nurse Expected interval evolution of a right posterior temporal/occipital intraparenchymal hematoma status post decompressive craniotomy Large right temporo-occipital intraparenchymal bleed, most likely lobar hemorrhage from hypertension, consider venous sinus thrombosis, less likely in this location, aneurysmal bleed, head trauma (also unlikely). Had craniotomy 7/ evening Suspect of aspiration, respiratory failure, hypertension, chronic obstructive pulmonary disease, improving acute kidney injury cont Zosyn glucose uncontrolled add Lantus 18 UNITS SQ HS 33 MIN CC TIME 02/16/2021 POD #7 Right occipital craniotomy with evacuation of intracerebral hematoma sedated on vent Patient seen and examined at bedside Good response to IV Lasix Continue antibiotics per infectious disease Weaning ventilator and sedation as tolerated extubation in the next few days Plan of care discussed with bedside nurse Expected interval evolution of a right posterior temporal/occipital int raparenchymal hematoma status post decompressive craniotomy Large right temporo-occipital intraparenchymal bleed, most likely lobar hemorrhage from hypertension, consider venous sinus thrombosis, less likely in this location, aneurysmal bleed, head trauma (also unlikely). Had craniotomy 7/ evening Suspect of aspiration, respiratory failure, hypertension, chronic obstructive pulmonary disease, improving acute kidney injury cont Zosyn glucose uncontrolled add Lantus 14 UNITS SQ HS 35 MIN CC TIME 02/15/2021 POD #6 Right occipital craniotomy with evacuation of intracerebral hematoma sedated on vent Patient seen and examined at bedside Good response to IV Lasix Continue antibiotics per infectious disease Weaning ventilator and sedation as tolerated Hopeful extubation in the next few days Plan of care discussed with bedside nurse Expected interval evolution of a right posterior temporal/occipital intraparenchymal hematoma status post decompressive craniotomy Large right temporo-occipital intraparenchymal bleed, most likely lobar hemorrhage from hypertension, consider venous sinus thrombosis, less likely in this location, aneurysmal bleed, head trauma (also unlikely). Had craniotomy 02/09 evening Suspect of aspiration, respiratory failure, hypertension, chronic obstructive pulmonary disease, improving acute kidney injury cont Zosyn glucose uncontrolled add Lantus 35 MIN CC TIME 02/14/2021 POD #5 Right occipital craniotomy with evacuation of intracerebral hematoma sedated on vent Patient seen and examined at bedside Good response to IV Lasix Continue antibiotics per infectious disease Weaning ventilator and sedation as tolerated Hopeful extubation in the next few days Plan of care discussed with bedside nurse Expected interval evolution of a right posterior temporal/occipital intraparenchymal hematoma status post decompressive craniotomy Large right temporo-occipital intraparenchymal bleed, most likely lobar hemorrhage from hypertension, consider venous sinus thrombosis, less likely in this location, aneurysmal bleed, head trauma (also unlikely). Had craniotomy 02/09 evening Suspect of aspiration, respiratory failure, hypertension, chronic obstructive pulmonary disease, improving acute kidney injury cont Zosyn glucose uncontrolled add Lantus 35 MIN CC TIME 02/13/2021 POD #4 Right occipital craniotomy with evacuation of intracerebral hematoma sedated on vent Patient seen and examined at bedside Good response to IV Lasix Continue antibiotics per infectious disease Weaning ventilator and sedation as tolerated Hopeful extubation in the next few days Plan of care discussed with bedside nurse Expected interval evolution of a right posterior temporal/occipital intraparenchymal hematoma status post decompressive craniotomy Large right temporo-occipital intraparenchymal bleed, most likely lobar hemorrhage from hypertension, consider venous sinus thrombosis, less likely in this location, aneurysmal bleed, head trauma (also unlikely). Had craniotomy 02/09 evening Suspect of aspiration, respiratory failure, hypertension, chronic obstructive pulmonary disease, improving acute kidney injury cont Zosyn 35 MIN CC TIME 02/12/2021 Patient seen and examined at bedside Remains intubated and sedated Good response to IV Lasix yesterday had nearly 3 L out; will diurese again today Continue antibiotics per infectious disease Weaning ventilator and sedation as tolerated Hopeful extubation in the next few days Plan of care discussed with bedside nurse 02/11/2021 Patient seen and examined at bedside No major clinical changes overnight however this morning patient has largely increased amount of secretions Chest x-ray concerning for possible pneumonia, will consult ID who recommended starting Zosyn Otherwise he remains intubated and sedated We will follow subspecialist input Plan discussed with bedside RN 02/10/2021 Patient seen and examined at bedside Underwent craniotomy yesterday due to unresponsiveness in the late afternoon; was also intubated Continues to have a poor neurologic status Neurology and neurosurgery following Discussed plan of care with bedside nurse Patient is a 61-year-old male transferred for to the ICU overnight due to hypertensive emergency and intracranial hemorrhage. Patient's mother at bedside provides most the history. She reports that patient had been in his usual state of health until yesterday morning when he reported feeling tired and having a headache. Patient mother reports he normally gets up early and goes outside however this was not the case yesterday. With this headache he took BC powder and went back to bed. Patient's mother reports that he was in and out of bed throughout most of the afternoon. Says patient did not eat anything yesterday which is very unusual for him. Approximately 1130 last night she had the patient get up to go to the bathroom and heard him fall. He however is able to get up and returned to bed; unknown if he hit his head at this time. Patient again woke up around 2 AM and woke up his mother asking for orange juice and then proceeded to fall again, she does not think he hit his head at this time. He was taken to hospital and found to have a systolic blood pressure greater than [address] scan found to have an intracranial hemorrhage. Due to severity of his condition he was transferred here. Patient's mother reports she is not aware of any past medical history other than hypertension which he intermittently takes hydrochlorothiazide for. Vitals Vitals Vital Signs Date Time Temp Pulse Resp B/P (MAP) Pulse Ox O2 Delivery O2 Flow Rate FiO2 03/06/21 08:00 63 128/73 (91) 99 Ventilator 03/06/21 07:00 99.5 14 99.5 Physical Exam Physical Exam GENERAL: Sedated on vent, patient is not following commands HEENT: no icterus,NGT + NECK trach present LUNGS: Decreased breath sound at bases HEART: S1, S2 bradycardia ABDOMEN: Soft, nontender, mildly distended EXTREMITIES: + edema, no cyanosis. SKIN:no gen rash NEUROLOGIC: unable to assess Right IJ taken out RT PICC Line clean General: Other (sedated on vent, trach) Heart: Regular rate Lungs: Clear Abdomen: Normal bowel sounds Extremities: No clubbing, No edema Skin: Other ([place] removed, dressing changed) Labs LABS CATHRYN SAHNI MD,BOB SABA,JOANNE ASH,MARCUS HARMON ORDERED: BCULT Procedure Result BLOOD CULTURE Final NO GROWTH AFTER 5 DAYS PATIENT: JOAO CHAVEZ ACCOUNT: [id number] : 1960 LOCATION: [facility] ICU AGE: 61 SEX: M EXAM STATUS: ADM IN ORD. PHYSICIAN: JEANINE NEWMAN MD REASON: PICC placement PROCEDURE: PORTABLE CHEST 1V XR CHEST 1V History: Reason: PICC placement / Spl. Instructions: / History: Comparison: February 21, 2021 Findings: Emphysematous changes with right-sided bullous disease, unchanged. Increased patchy right mid and bibasilar opacities. Small bilateral pleural effusions. Unchanged heart size. Tracheostomy tube with tip projecting over the upper trachea. Right PICC with tip projecting over the cavoatrial junction. Stable enteric tube. Removal of right IJ central line. Impression: 1. Interval placement right PICC and interval tracheostomy. 2. Increased right mid and bibasilar opacities. 3. Small bilateral pleural effusions. Electronically signed by: Aaron Mayes DO (02/26/2021 11:06 AM) [id number] DICTATED and SIGNED BY: AARON MAYES DO DATE: 02/26/21 [id number] Signed PATIENT: JOAO CHAVEZ ACCOUNT: [id number] : 1960 LOCATION: [facility] ICU AGE: 61 SEX: M EXAM STATUS: ADM IN ORD. PHYSICIAN: HILDA ROCK APRN REASON: f/u ICH, s/p craniotomy-RN NEO WILL CALL WHEN READY PROCEDURE: CT HEAD WO CONTRAST CT HEAD WITHOUT CONTRAST 02/27/2021 12:57 PM Indication: Reason: f/u ICH, s/p craniotomy-RN [facility]O WILL CALL WHEN READY / S pl. Instructions: / History: Comparison: CT head without contrast February 20, 2021 Procedure: Multidetector CT imaging of the head was performed without the administration of contrast. Findings: There is been interval development of area of low density in left frontal lobe, concerning for subacute infarct. Interval development of a low-density area in the right parietal lobe could be developing encephalomalacia from adjacent bleeding postop change or small infarct. Punctate areas of hyperdensity within the involved parenchyma could represent minimal hemorrhagic transformation. Underlying contusion developing encephalomalacia within the right the right temporal, occipital, and parietal intraparenchymal hemorrhage has decreased. Small amount of intraventricular hemorrhage seen in the dependent portion of the left lateral ventricle similar. Areas of subarachnoid hemorrhage throughout the left humeral hemisphere are unchanged. No new midline shift is seen. Decreasing focal mass effect with a decreasing hemorrhage noted. No evidence of obstructive hydrocephalus is seen. No acute osseous changes are noted in the interim. IMPRESSION: 1. Interval development of a left frontal hypodensity concerning for subacute infarct. There is also a new small area of low density in the superior posterior parietal region which could represent developing encephalomalacia from the prior bleed or surgery versus a second small subacute infarct . 2. Continued decrease in large intraparenchymal hemorrhage in the right parietal, occipital, and temporal lobes. Decrease in scattered subarachnoid hemorrhage 3.Persistent small amount of left lateral ventricular hemorrhage without hydrocephalus Left CT DOSING PQRS STATEMENT: One or more of the following individualized dose reduction techniques were utilized for this examination: 1. Automated exposure control 2. Adjustment of the mA and/or kV according to patient size 3. Use of iterative reconstruction technique Findings were called to the patient's nurse in the ICU at 4:00 PM Electronically signed by: Joao Tom MD (02/27/2021 3:58 PM) [id number] DICTATED and SIGNED BY: JOAO TOM MD DATE: 02/27/21 [id number] Laboratory Tests Test 03/05/21 12:34 03/05/21 23:26 03/06/21 05:29 03/06/21 05:30 Glucose (Fingerstick) 210 mg/dL (70-99) 241 mg/dL (70-99) 220 mg/dL (70-99) Sodium Level 134 mmol/L (136-145) Potassium Level 4.3 mmol/L (3.5-5.1) Chloride Level 99 mmol/L (98-107) Carbon Dioxide Level 31 mmol/L (21-32) Anion Gap 4 (6-14) Blood Urea Nitrogen 19 mg/dL (8-26) Creatinine 0.8 mg/dL (0.7-1.3) Estimated GFR (Cockcroft-Gault) 119.3 Glucose Level 218 mg/dL (70-99) Calcium Level 9.0 mg/dL (8.5-10.1) Comment Review of Relevant I have reviewed the following items neela (where applicable) has been applied. Labs Laboratory Tests Test 03/04/21 12:32 03/04/21 18:23 03/04/21 21:07 03/05/21 00:26 Glucose (Fingerstick) 217 mg/dL (70-99) 230 mg/dL (70-99) 210 mg/dL (70-99) 185 mg/dL (70-99) Test 03/05/21 07:15 03/05/21 07:16 03/05/21 12:34 03/05/21 23:26 Sodium Level 130 mmol/L (136-145) Potassium Level 4.2 mmol/L (3.5-5.1) Chloride Level 96 mmol/L (98-107) Carbon Dioxide Level 27 mmol/L (21-32) Anion Gap 7 (6-14) Blood Urea Nitrogen 17 mg/dL (8-26) Creatinine 0.8 mg/dL (0.7-1.3) Estimated GFR (Cockcroft-Gault) 119.3 Glucose Level 210 mg/dL (70-99) Calcium Level 7.7 mg/dL (8.5-10.1) Magnesium Level 1.7 mg/dL (1.8-2.4) Glucose (Fingerstick) 182 mg/dL (70-99) 210 mg/dL (70-99) 241 mg/dL (70-99) Test 03/06/21 05:29 03/06/21 05:30 Glucose (Fingerstick) 220 mg/dL (70-99) Sodium Level 134 mmol/L (136-145) Potassium Level 4.3 mmol/L (3.5-5.1) Chloride Level 99 mmol/L (98-107) Carbon Dioxide Level 31 mmol/L (21-32) Anion Gap 4 (6-14) Blood Urea Nitrogen 19 mg/dL (8-26) Creatinine 0.8 mg/dL (0.7-1.3) Estimated GFR (Cockcroft-Gault) 119.3 Glucose Level 218 mg/dL (70-99) Calcium Level 9.0 mg/dL (8.5-10.1) Laboratory Tests Test 03/05/21 12:34 03/05/21 23:26 03/06/21 05:29 03/06/21 05:30 Glucose (Fingerstick) 210 mg/dL (70-99) 241 mg/dL (70-99) 220 mg/dL (70-99) Sodium Level 134 mmol/L (136-145) Potassium Level 4.3 mmol/L (3.5-5.1) Chloride Level 99 mmol/L (98-107) Carbon Dioxide Level 31 mmol/L (21-32) Anion Gap 4 (6-14) Blood Urea Nitrogen 19 mg/dL (8-26) Creatinine 0.8 mg/dL (0.7-1.3) Estimated GFR (Cockcroft-Gault) 119.3 Glucose Level 218 mg/dL (70-99) Calcium Level 9.0 mg/dL (8.5-10.1) Microbiology 02/23/21 Gram Stain - Final, Complete 02/23/21 Aerobic Culture - Final, Complete 02/22/21 Blood Culture - Final, Complete NO GROWTH AFTER 5 DAYS 02/22/21 Gram Stain Evaluation - Final, Complete 02/22/21 Respiratory Culture - Final, Complete Medications Current Medications Nicardipine HCl 50 mg/Sodium Chloride 250 ml @ 12.5 mls/hr CONT PRN IV SEE I/O RECORD Last administered on 02/26/21at 01:20; Start 02/09/21 at 06:15 Labetalol HCl (Normodyne Iv Push) 10 mg PRN Q2HR PRN IVP HYPERTENSION- 1ST CHOICE Last administered on 03/04/21at 02:56; Start 02/09/21 at 06:15 Lorazepam (Ativan Inj) 2 mg 1X ONCE IVP Last administered on 02/09/21at 10:54; Start 02/09/21 at 10:45; Stop 02/09/21 at 10:46; Status DC Lorazepam (Ativan Inj) 2 mg 1X ONCE IVP Last administered on 02/09/21at 11:00; Start 02/09/21 at 11:00; Stop 02/09/21 at 11:01; Status DC Fentanyl Citrate (Fentanyl 2ml Vial) 25 mcg PRN Q2HR PRN IVP MODERATE TO SEVERE PAIN Last administered on 02/09/21at 13:37; Start 02/09/21 at 13:30; Stop 02/18/21 at 22:53; Status DC Info (Review Meds) 1 ea PRN 1X PRN SEE COMMENTS; Start 02/09/21 at 15:00 Acetaminophen (Tylenol Supp) 650 mg PRN Q6HRS PRN HI FEVER > 100.5'F or 38'C; Start 02/09/21 at 15:00; Stop 02/11/21 at 21:12; Status DC Albuterol Sulfate (Ventolin Neb Soln) 2.5 mg PRN Q4HRS PRN NEB SHORTNESS OF BREATH; Start 02/09/21 at 15:15 Iohexol (Omnipaque 350 Mg/ml) 75 ml 1X ONCE IV Last administered on 02/09/21at 15:52; Start 02/09/21 at 15:30; Stop 02/09/21 at 15:35; Status DC Iohexol (Omnipaque 350 Mg/ml) 100 ml STK-MED ONCE .ROUTE ; Start 02/09/21 at 15:26; Stop 02/09/21 at 15:27; Status DC Info (CONTRAST GIVEN -- Rx MONITORING) 1 each PRN DAILY PRN MC SEE COMMENTS; Start 02/09/21 at 15:45; Stop 02/11/21 at 15:44; Status DC Propofol 100 ml @ As Directed STK-MED ONCE IV ; Start 02/09/21 at 15:51; Stop 02/09/21 at 15:51; Status DC Rocuronium [place] (Zemuron) 50 mg STK-MED ONCE .ROUTE ; Start 02/09/21 at 15:51; Stop 02/09/21 at 15:51; Status DC Lidocaine HCl (Lidocaine HCl 2% Abboject) 100 mg STK-MED ONCE .ROUTE ; Start 02/09/21 at 15:52; Stop 02/09/21 at 15:53; Status DC Propofol 100 ml @ 3.507 mls/ hr CONT PRN IV PER PROTOCOL Last administered on 03/06/21at 03:30; Start 02/09/21 at 16:15 Lidocaine HCl (Lidocaine HCl 2% Abboject) 100 mg 1X ONCE IV Last administered on 02/09/21at 16:17; Start 02/09/21 at 16:15; Stop 02/09/21 at 16:17; Status DC Rocuronium [place] (Zemuron) 50 mg 1X ONCE IV Last administered on 02/09/21at 16:17; Start 02/09/21 at 16:15; Stop 02/09/21 at 16:17; Status DC Rocuronium [place] (Zemuron) 100 mg STK-MED ONCE .ROUTE ; Start 02/09/21 at 16:31; Stop 02/09/21 at 16:32; Status DC Gelatin (Gelfoam Size 100) 1 each STK-MED ONCE .ROUTE Last administered on 02/09/21at 17:49; Start 02/09/21 at 16:33; Stop 02/09/21 at 16:33; Status DC Bupivacaine HCl/ Epinephrine Bitart (Sensorcain-Epi 0.5%-1:[id number] Mpf) 30 ml STK-MED ONCE .ROUTE Last administered on 02/09/21at 17:49; Start 02/09/21 at 16:33; Stop 02/09/21 at 16:33; Status DC Cellulose (Surgicel Hemostat 4x8) 1 each STK-MED ONCE .ROUTE Last administered on 02/09/21at 18:38; Start 02/09/21 at 16:33; Stop 02/09/21 at 16:33; Status DC Thrombin 20,000 unit STK-MED ONCE TP Last administered on 02/09/21at 17:49; Start 02/09/21 at 16:33; Stop 02/09/21 at 16:33; Status DC Fentanyl Citrate (Fentanyl 2ml Vial) 75 mcg 1X ONCE IVP Last administered on 02/09/21at 16:45; Start 02/09/21 at 16:45; Stop 02/09/21 at 16:47; Status DC Propofol (Diprivan) 200 mg 1X ONCE IV ; Start 02/09/21 at 17:15; Stop 02/09/21 at 17:16; Status DC Lidocaine HCl (Lidocaine HCl 2% Abboject) 100 mg 1X ONCE IV ; Start 02/09/21 at 17:15; Stop 02/09/21 at 17:16; Status DC Rocuronium [place] (Zemuron) 50 mg 1X ONCE IV ; Start 02/09/21 at 17:15; Stop 02/09/21 at 17:16; Status DC Propofol 100 ml @ 0 mls/hr CONT PRN PRN IV SEDATION; Start 02/09/21 at 17:15; Stop 02/10/21 at 05:14; Status DC Cefazolin Sodium (Ancef) 1 gm STK-MED ONCE IVP ; Start 02/09/21 at 17:28; Stop 02/09/21 at 17:28; Status DC Fentanyl Citrate (Fentanyl 2ml Vial) 100 mcg STK-MED ONCE .ROUTE ; Start 02/09/21 at 17:43; Stop 02/09/21 at 17:43; Status DC Rocuronium [place] (Zemuron) 100 mg STK-MED ONCE .ROUTE ; Start 02/09/21 at 17:58; Stop 02/09/21 at 17:59; Status DC Vecuronium [place] (Norcuron Bolus) 10 mg STK-MED ONCE IV ; Start 02/09/21 at 18:49; Stop 02/09/21 at 18:50; Status DC Sodium Chloride (SODIUM CHLORIDE 20ml) 20 ml STK-MED ONCE IJ ; Start 02/09/21 at 18:50; Stop 02/09/21 at 18:50; Status DC Sevoflurane (Ultane) 90 ml STK-MED ONCE IH ; Start 02/09/21 at 19:20; Stop 02/09/21 at 19:21; Status DC Fentanyl Citrate 30 ml @ 2.5 mls/hr CONT PRN IV SEE PROTOCOL Last administered on 02/09/21at 23:40; Start 02/09/21 at 23:15; Stop 02/10/21 at 04:43; Status DC Fentanyl Citrate 55 ml @ 0 mls/hr CONT PRN IV SEE I/O Last administered on 03/05/21at 09:59; Start 02/10/21 at 05:00 Potassium Chloride/Dextrose/ Sod Cl 1,000 ml @ 80 mls/hr [id number] IV ; Start 02/10/21 at 09:00; Stop 02/10/21 at 13:21; Status DC Pantoprazole Sodium (PROTONIX VIAL for IV PUSH) 40 mg DAILYAC IVP Last administered on 03/05/21at 09:53; Start 02/10/21 at 09:00 Lidocaine HCl (Buffered Lidocaine 1%) 3 ml STK-MED ONCE .ROUTE ; Start 02/10/21 at 13:18; Stop 02/10/21 at 13:18; Status DC Sodium Chloride 1,000 ml @ 80 mls/hr [id number] IV Last administered on 02/12/21at 03:00; Start 02/10/21 at 13:30; Stop 02/12/21 at 15:36; Status DC Lidocaine HCl (Buffered Lidocaine 1%) 6 ml 1X ONCE INJ Last administered on 02/10/21at 13:57; Start 02/10/21 at 13:45; Stop 02/10/21 at 13:46; Status DC Potassium Chloride/Water 100 ml @ 100 mls/hr Q1H IV Last administered on 02/11/21at 10:07; Start 02/11/21 at 08:00; Stop 02/11/21 at 09:59; Status DC Piperacillin Sod/ Tazobactam Sod 3.375 gm/Sodium Chloride 50 ml @ 100 mls/hr Q6HRS IV Last administered on 03/06/21at 05:31; Start 02/11/21 at 09:00 Info (Tpn Per Pharmacy) 1 each PRN DAILY PRN MC SEE COMMENTS Last administered on 03/05/21at 13:03; Start 02/11/21 at 11:15 Sodium Chloride 90 meq/Potassium Chloride 50 meq/ Potassium Phosphate 13.6 mmol/Magnesium Sulfate 10 meq/ Calcium Gluconate 10 meq/ Multivitamins 5 ml/Zinc/Copper/ Manganese/ Selenium 1 ml/ Total Parenteral Nutrition/Amino Acids/Dextrose 1,512 ml @ 63 mls/hr TPN CONT IV Last administered on 02/11/21at 22:32; Start 02/11/21 at 22:00; Stop 02/12/21 at 21:59; Status DC Furosemide (Lasix) 20 mg 1X ONCE IVP Last administered on 02/11/21at 15:11; Start 02/11/21 at 15:30; Stop 02/11/21 at 15:31; Status DC Furosemide (Lasix) 20 mg 1X ONCE IVP Last administered on 02/11/21at 17:00; Start 02/11/21 at 17:00; Stop 02/11/21 at 17:01; Status DC Midazolam HCl 100 ml @ 1 mls/hr CONT PRN IV SEE PROTOCOL Last administered on 02/13/21at 20:58; Start 02/11/21 at 19:30 Acetaminophen (Tylenol Supp) 650 mg PRN Q6HRS PRN HI MILD PAIN / TEMP > 100.3'F; Start 02/11/21 at 21:15 Sodium Chloride 80 meq/Potassium Chloride 50 meq/ Potassium Phosphate 13.6 mmol/Magnesium Sulfate 6 meq/ Calcium Gluconate 10 meq/ Multivitamins 5 ml/Zinc/Copper/ Manganese/ Selenium 1 ml/ Total Parenteral Nutrition/Amino Acids/Dextrose 1,512 ml @ 63 mls/hr TPN CONT IV Last administered on 02/12/21at 22:09; Start 02/12/21 at 22:00; Stop 02/13/21 at 21:59; Status DC Furosemide (Lasix) 40 mg 1X ONCE IVP Last administered on 02/12/21at 12:44; Start 02/12/21 at 12:30; Stop 02/12/21 at 12:31; Status DC Insulin Human Lispro (HumaLOG) 0-5 UNITS Q6HRS SQ Last administered on 03/06/21at 05:32; Start 02/12/21 at 12:00 Dextrose (Dextrose 50%-Water Syringe) 12.5 gm PRN Q15MIN PRN IV SEE COMMENTS; Start 02/12/21 at 12:15 Clonidine HCl (Catapres Tts-3) 1 patch WEEKLY TD Last administered on 02/27/21at 09:06; Start 02/13/21 at 11:00 Sodium Chloride 80 meq/Potassium Chloride 50 meq/ Potassium Phosphate 13.6 mmol /Magnesium Sulfate 6 meq/ Calcium Gluconate 10 meq/ Multivitamins 5 ml/Zinc/Copper/ Manganese/ Selenium 1 ml/ Total Parenteral Nutrition/Amino Acids/Dextrose 1,512 ml @ 63 mls/hr TPN CONT IV Last administered on 02/13/21at 21:42; Start 02/13/21 at 22:00; Stop 02/14/21 at 21:59; Status DC Potassium Acetate 50 meq/Potassium Phosphate 13.6 mmol/Magnesium Sulfate 6 meq/ Calcium Gluconate 10 meq/ Multivitamins 5 ml/Zinc/Copper/ Manganese/ Selenium 1 ml/ Total Parenteral Nutrition/Amino Acids/Dextrose 1,512 ml @ 63 mls/hr TPN CONT IV Last administered on 02/14/21at 21:59; Start 02/14/21 at 22:00; Stop 02/15/21 at 21:59; Status DC Insulin Glargine (Lantus Syringe) 10 unit QHS SQ Last administered on 02/15/21at 22:11; Start 02/14/21 at 21:00; Stop 02/16/21 at 12:42; Status DC Hydralazine HCl (Apresoline Inj) 10 mg PRN Q4HRS PRN IVP ELEVATED BP, SEE COMMENTS Last administered on 03/04/21at 01:11; Start 02/14/21 at 16:00 Potassium Acetate 50 meq/Potassium Phosphate 13.6 mmol/Magnesium Sulfate 6 meq/ Calcium Gluconate 10 meq/ Multivitamins 5 ml/Zinc/Copper/ Manganese/ Selenium 1 ml/ Total Parenteral Nutrition/Amino Acids/Dextrose 1,512 ml @ 63 mls/hr TPN CONT IV Last administered on 02/15/21at 22:13; Start 02/15/21 at 22:00; Stop 02/16/21 at 21:59; Status DC Dexmedetomidine HCl 400 mcg/ Sodium Chloride 100 ml @ 0 mls/hr CONT PRN IV PER PROTOCOL Last administered on 03/06/21at 08:00; Start 02/15/21 at 14:15 Sodium Chloride 500 ml @ 500 mls/hr 1X PRN PRN IV SEE COMMENTS; Start 02/15/21 at 14:15 Atropine Sulfate (ATROPINE 0.5mg SYRINGE) 0.5 mg PRN Q5MIN PRN IV SEE COMMENTS; Start 02/15/21 at 14:15 Potassium Acetate 50 meq/Potassium Phosphate 13.6 mmol/Magnesium Sulfate 6 meq/ Calcium Gluconate 10 meq/ Multivitamins 5 ml/Zinc/Copper/ Manganese/ Selenium 1 ml/ Total Parenteral Nutrition/Amino Acids/Dextrose 1,512 ml @ 63 mls/hr TPN CONT IV Last administered on 02/16/21at 22:59; Start 02/16/21 at 22:00; Stop 02/17/21 at 21:59; Status DC Insulin Glargine (Lantus Syringe) 14 unit QHS SQ Last administered on 02/16/21at 21:14; Start 02/16/21 at 21:00; Stop 02/17/21 at 14:15; Status DC Potassium Acetate 50 meq/Potassium Phosphate 13.6 mmol/Magnesium Sulfate 6 meq/ Calcium Gluconate 10 meq/ Multivitamins 5 ml/Zinc/Copper/ Manganese/ Selenium 1 ml/ Total Parenteral Nutrition/Amino Acids/Dextrose 1,512 ml @ 63 mls/hr TPN CONT IV Last administered on 02/17/21at 20:48; Start 02/17/21 at 22:00; Stop 02/18/21 at 21:59; Status DC Dextrose 1,000 ml @ 75 mls/hr [id number] IV Last administered on 02/18/21at 13:51; Start 02/17/21 at 10:30; Stop 02/19/21 at 12:57; Status DC Insulin Glargine (Lantus Syringe) 18 unit QHS SQ Last administered on 02/17/21at 20:46; Start 02/17/21 at 21:00; Stop 02/18/21 at 11:56; Status DC Insulin Glargine (Lantus Syringe) 22 unit QHS SQ Last administered on 02/18/21at 21:00; Start 02/18/21 at 21:00; Stop 02/19/21 at 14:08; Status DC Potassium Acetate 50 meq/Potassium Phosphate 13.6 mmol/Magnesium Sulfate 6 meq/ Calcium Gluconate 10 meq/ Multivitamins 5 ml/Zinc/Copper/ Manganese/ Selenium 1 ml/ Total Parenteral Nutrition/Amino Acids/Dextrose 1,512 ml @ 63 mls/hr TPN CONT IV Last administered on 02/18/21at 21:43; Start 02/18/21 at 22:00; Stop 02/19/21 at 21:59; Status DC Potassium Acetate 50 meq/Potassium Phosphate 13.6 mmol/Magnesium Sulfate 6 meq/ Calcium Gluconate 10 meq/ Multivitamins 5 ml/Zinc/Copper/ Manganese/ Selenium 1 ml/ Total Parenteral Nutrition/Amino Acids/Dextrose 2,040 ml @ 85 mls/hr TPN CONT IV Last administered on 02/19/21at 20:56; Start 02/19/21 at 22:00; Stop 02/20/21 at 21:59; Status DC Insulin Glargine (Lantus Syringe) 25 unit QHS SQ Last administered on 02/20/21at 22:11; Start 02/19/21 at 21:00; Stop 02/21/21 at 10:10; Status DC Acetaminophen (Tylenol) 650 mg PRN Q6HRS PRN PEG MILD PAIN / TEMP > 100.3'F Last administered on 03/04/21at 07:39; Start 02/19/21 at 18:00 Potassium Acetate 50 meq/Potassium Phosphate 13.6 mmol/Magnesium Sulfate 6 meq/ Calcium Gluconate 10 meq/ Multivitamins 5 ml/Zinc/Copper/ Manganese/ Selenium 1 ml/ Total Parenteral Nutrition/Amino Acids/Dextrose 2,040 ml @ 85 mls/hr TPN CONT IV Last administered on 02/20/21at 22:10; Start 02/20/21 at 22:00; Stop 02/21/21 at 21:59; Status DC Insulin Glargine (Lantus Syringe) 27 unit QHS SQ Last administered on 03/01/21at 21:18; Start 02/21/21 at 21:00; Stop 03/02/21 at 13:32; Status DC Magnesium Sulfate 50 ml @ 25 mls/hr 1X ONCE IV Last administered on 02/21/21at 11:30; Start 02/21/21 at 11:00; Stop 02/21/21 at 12:59; Status DC Potassium Acetate 50 meq/Potassium Phosphate 13.6 mmol/Magnesium Sulfate 8 meq/ Calcium Gluconate 10 meq/ Multivitamins 5 ml/Zinc/Copper/ Manganese/ Selenium 1 ml/ Total Parenteral Nutrition/Amino Acids/Dextrose 2,040 ml @ 85 mls/hr TPN CONT IV Last administered on 02/21/21at 21:23; Start 02/21/21 at 22:00; Stop 02/22/21 at 21:59; Status DC Daptomycin 570 mg/ Sodium Chloride 50 ml @ 100 mls/hr Q24H IV Last administered on 02/24/21at 13:10; Start 02/22/21 at 12:00; Stop 02/25/21 at 10:34; Status DC Linezolid/Dextrose 300 ml @ 300 mls/hr Q12HR IV Last administered on 03/02/21at 08:26; Start 02/22/21 at 09:00; Stop 03/02/21 at 08:42; Status DC Potassium Acetate 50 meq/Potassium Phosphate 13.6 mmol/Magnesium Sulfate 8 meq/ Calcium Gluconate 5 meq/ Multivitamins 5 ml/Zinc/Copper/ Manganese/ Selenium 1 ml/ Total Parenteral Nutrition/Amino Acids/Dextrose 2,040 ml @ 85 mls/hr TPN CONT IV Last administered on 02/22/21at 21:32; Start 02/22/21 at 22:00; Stop 02/23/21 at 21:59; Status DC Fentanyl Citrate (Fentanyl 2ml Vial) 25 mcg PRN Q5MIN PRN IVP MILD PAIN 1-3; Start 02/23/21 at 06:00; Stop 02/24/21 at 05:59; Status DC Fentanyl Citrate (Fentanyl 2ml Vial) 50 mcg PRN Q5MIN PRN IVP MODERATE PAIN 4- 6; Start 02/23/21 at 06:00; Stop 02/24/21 at 05:59; Status DC Morphine Sulfate (Morphine Sulfate) 1 mg PRN Q10MIN PRN IVP SEVERE PAIN 7-10; Start 02/23/21 at 06:00; Stop 02/24/21 at 05:59; Status DC Ringer's Solution 1,000 ml @ 30 mls/hr Q24H IV Last administered on 02/23/21at 11:00; Start 02/23/21 at 06:00; Stop 02/23/21 at 17:59; Status DC Hydromorphone HCl (Dilaudid) 0.5 mg PRN Q10MIN PRN IVP SEVERE PAIN 7-10, 2nd CHOICE; Start 02/23/21 at 06:00; Stop 02/24/21 at 05:59; Status DC Prochlorperazine Edisylate (Compazine) 5 mg PACU PRN PRN IVP NAUSEA, MRX1; Start 02/23/21 at 06:00; Stop 02/24/21 at 05:59; Status DC Cellulose (Surgicel Fibrillar 1x2) 1 each STK-MED ONCE .ROUTE ; Start 02/23/21 at 08:23; Stop 02/23/21 at 08:23; Status DC Lidocaine/ Epinephrine (LIDOCAINE 1%-EPI 1:100,000 Multi-Dose) 20 ml STK-MED ONCE .ROUTE Last administered on 02/23/21at 13:33; Start 02/23/21 at 08:23; Stop 02/23/21 at 08:23; Status DC Potassium Acetate 50 meq/Potassium Phosphate 13.6 mmol/Magnesium Sulfate 8 meq/ Calcium Gluconate 5 meq/ Multivitamins 5 ml/Zinc/Copper/ Manganese/ Selenium 1 ml/ Total Parenteral Nutrition/Amino Acids/Dextrose 2,040 ml @ 85 mls/hr TPN CONT IV ; Start 02/23/21 at 22:00; Stop 02/24/21 at 21:59; Status DC Rocuronium [place] (Zemuron) 50 mg STK-MED ONCE .ROUTE ; Start 02/23/21 at 12:13; Stop 02/23/21 at 12:13; Status DC Fentanyl Citrate (Fentanyl 2ml Vial) 100 mcg STK-MED ONCE .ROUTE ; Start 02/23/21 at 12:24; Stop 02/23/21 at 12:24; Status DC Insulin Human Lispro (HumaLOG VIAL for OP,RR ONLY) 0-10 units PRN Q1HR PRN SQ PER PROTOCOL Last administered on 02/23/21at 13:00; Start 02/23/21 at 13:15; Stop 02/24/21 at 13:14; Status DC Rocuronium [place] (Zemuron) 100 mg STK-MED ONCE .ROUTE ; Start 02/23/21 at 13:22; Stop 02/23/21 at 13:23; Status DC Albuterol Sulfate (Ventolin Hfa) 60 puff STK-MED ONCE INH ; Start 02/23/21 at 13:47; Stop 02/23/21 at 13:48; Status DC Sevoflurane (Ultane) 60 ml STK-MED ONCE IH ; Start 02/23/21 at 14:21; Stop 02/23/21 at 14:21; Status DC Potassium Acetate 50 meq/Potassium Phosphate 13.6 mmol/Magnesium Sulfate 8 meq/ Calcium Gluconate 5 meq/ Multivitamins 5 ml/Zinc/Copper/ Manganese/ Selenium 1 ml/ Total Parenteral Nutrition/Amino Acids/Dextrose 2,040 ml @ 85 mls/hr TPN CONT IV ; Start 02/25/21 at 22:00; Stop 02/26/21 at 21:59; Status DC Potassium Acetate 50 meq/Potassium Phosphate 13.6 mmol/Magnesium Sulfate 8 meq/ Calcium Gluconate 5 meq/ Multivitamins 5 ml/Zinc/Copper/ Manganese/ Selenium 1 ml/ Total Parenteral Nutrition/Amino Acids/Dextrose 2,040 ml @ 85 mls/hr TPN CONT IV Last administered on 02/26/21at 21:27; Start 02/26/21 at 22:00; Stop 02/27/21 at 21:59; Status DC Potassium Acetate 50 meq/Potassium Phosphate 13.6 mmol/Magnesium Sulfate 8 meq/ Calcium Gluconate 5 meq/ Multivitamins 5 ml/Zinc/Copper/ Manganese/ Selenium 1 ml/ Total Parenteral Nutrition/Amino Acids/Dextrose 2,040 ml @ 85 mls/hr TPN CONT IV Last administered on 02/27/21at 21:01; Start 02/27/21 at 22:00; Stop 02/28/21 at 21:59; Status DC Potassium Acetate 50 meq/Potassium Phosphate 13.6 mmol/Magnesium Sulfate 8 meq/ Calcium Gluconate 5 meq/ Multivitamins 5 ml/Zinc/Copper/ Manganese/ Selenium 1 ml/ Total Parenteral Nutrition/Amino Acids/Dextrose 2,040 ml @ 85 mls/hr TPN CONT IV Last administered on 02/28/21at 21:44; Start 02/28/21 at 22:00; Stop 03/01/21 at 21:59; Status DC Potassium Acetate 50 meq/Potassium Phosphate 13.6 mmol/Magnesium Sulfate 8 meq/ Calcium Gluconate 5 meq/ Multivitamins 5 ml/Zinc/Copper/ Manganese/ Selenium 1 ml/ Total Parenteral Nutrition/Amino Acids/Dextrose 2,040 ml @ 85 mls/hr TPN CONT IV Last administered on 03/01/21at 21:22; Start 03/01/21 at 22:00; Stop 03/02/21 at 21:59; Status DC Potassium Acetate 50 meq/Potassium Phosphate 13.6 mmol/Magnesium Sulfate 8 meq/ Multivitamins 5 ml/Zinc/Copper/ Manganese/ Selenium 1 ml/ Total Parenteral Nutrition/Amino Acids/Dextrose 2,040 ml @ 85 mls/hr TPN CONT IV Last administered on 03/02/21at 21:11; Start 03/02/21 at 22:00; Stop 03/03/21 at 21:59; Status DC Insulin Glargine (Lantus Syringe) 35 unit QHS SQ Last administered on 03/05/21at 20:32; Start 03/02/21 at 21:00 Potassium Acetate 50 meq/Potassium Phosphate 13.6 mmol/Magnesium Sulfate 8 meq/ Multivitamins 5 ml/Zinc/Copper/ Manganese/ Selenium 1 ml/ Total Parenteral Nutrition/Amino Acids/Dextrose 1,800 ml @ 75 mls/hr TPN CONT IV Last administered on 03/03/21at 21:54; Start 03/03/21 at 22:00; Stop 03/04/21 at 21:59; Status DC Docusate Sodium (Colace Solution) 100 mg DAILY PO Last administered on 03/05/21 09:53; Start 03/03/21 at 10:00 Polyethylene Glycol (miraLAX PACKET) 17 gm DAILY PO Last administered on 03/05/21 09:53; Start 03/03/21 at 10:00 Potassium Acetate 40 meq/Potassium Phosphate 13.6 mmol/Magnesium Sulfate 10 meq/ Multivitamins 5 ml/Zinc/Copper/ Manganese/ Selenium 1 ml/ Total Parenteral Nutrition/Amino Acids/Dextrose 1,800 ml @ 75 mls/hr TPN CONT IV Last administered on 03/04/21at 22:16; Start 03/04/21 at 22:00; Stop 03/05/21 at 21:59; Status DC Linezolid/Dextrose 300 ml @ 300 mls/hr Q12HR IV Last administered on 03/05/21at 20:31; Start 03/05/21 at 09:00 Magnesium Sulfate 50 ml @ 25 mls/hr 1X ONCE IV Last administered on 03/05/21at 13:31; Start 03/05/21 at 14:00; Stop 03/05/21 at 15:59; Status DC Sodium Chloride 40 meq/Potassium Acetate 40 meq/ Potassium Phosphate 13.6 mmol/Magnesium Sulfate 10 meq/ Multivitamins 5 ml/Zinc/Copper/ Manganese/ Selenium 1 ml/ Total Parenteral Nutrition/Amino Acids/Dextrose 1,800 ml @ 75 mls/hr TPN CONT IV Last administered on 03/05/21at 21:20; Start 03/05/21 at 22:00; Stop 03/06/21 at 21:59 Vitals/I & O Vital Sign - Last 24 Hours 03/05/21 03/05/21 03/05/21 03/05/21 08:43 09:00 09:59 10:00 Pulse 60 62 Resp 12 14 B/P (MAP) 148/88 (108) 146/88 (107) Pulse Ox 100 99 100 99 O2 Delivery Ventilator Ventilator Ventilator 03/05/21 03/05/21 03/05/21 03/05/21 10:12 10:29 11:00 12:00 Temp 97.9 97.9 Pulse 62 52 Resp 14 12 B/P (MAP) 125/75 (92) 155/77 (103) Pulse Ox 100 100 96 97 O2 Delivery Ventilator Ventilator Ventilator 03/05/21 03/05/21 03/05/21 03/05/21 12:00 12:07 13:00 14:00 Pulse 52 62 Resp 12 16 B/P (MAP) 172/68 (102) 146/88 (107) Pulse Ox 97 99 97 O2 Delivery Mechanical Ventilator Ventilator Ventilator Ventilator 03/05/21 03/05/21 03/05/2103/05/21 14:40 15:00 16:00 16:00 Temp 98.7 98.7 Pulse 50 58 Resp 16 16 B/P (MAP) 152/81 (104) 161/83 (109) Pulse Ox 100 97 96 O2 Delivery Ventilator Ventilator Mechanical Ventilator Ventilator 03/05/21 03/05/21 03/05/21 03/05/21 16:24 17:00 18:00 18:25 Pulse 62 64 Resp 16 16 B/P (MAP) 145/88 (107) 122/70 (87) Pulse Ox 100 97 96 100 O2 Delivery Ventilator Ventilator Ventilator Ventilator 03/05/21 03/05/21 03/05/21 03/05/21 19:00 19:30 20:00 20:41 Temp 98.9 98.9 Pulse 65 62 Resp 16 16 B/P (MAP) 141/84 (103) 127/78 (94) Pulse Ox 100 100 100 O2 Delivery Ventilator Mechanical Ventilator Ventilator Ventilator 03/05/21 03/05/21 03/05/21 03/05/21 21:00 22:00 23:00 23:30 Pulse 63 62 66 Resp 17 19 15 B/P (MAP) 131/79 (96) 156/91 (112) 139/87 (104) Pulse Ox 100 100 100 O2 Delivery Ventilator Ventilator Ventilator Mechanical Ventilator 03/05/21 03/06/21 03/06/21 03/06/21 23:55 00:01 01:00 02:00 Temp 99.3 99.3 Pulse 71 67 66 Resp 12 19 16 B/P (MAP) 153/91 (111) 138/62 (87) 168/93 (118) Pulse Ox 100 100 100 100 O2 Delivery Ventilator Ventilator Ventilator Ventilator 03/06/21 03/06/21 03/06/21 03/06/21 02:45 03:00 03:30 04:00 Temp 99.6 99.6 Pulse 66 65 Resp 19 16 B/P (MAP) 150/91 (110) 143/89 (107) Pulse Ox 100 100 100 O2 Delivery Ventilator Ventilator Mechanical Ventilator Ventilator 03/06/21 03/06/21 03/06/21 03/06/21 05:00 05:14 06:00 07:00 Temp 99.5 99.5 Pulse 66 66 65 Resp 16 14 14 B/P (MAP) 143/88 (106) 143/84 (103) 133/83 (100) Pulse Ox 100 97 100 100 O2 Delivery Ventilator Ventilator Ventilator Ventilator 03/06/21 08:00 Pulse 63 B/P (MAP) 128/73 (91) Pulse Ox 99 O2 Delivery Ventilator Intake and Output 03/05/21 03/05/21 03/06/21 15:00 23:00 07:00 Intake Total 0 ml 300 ml 2895 ml Output Total 645 ml 1050 ml 1525 ml Balance -645 ml -750 ml 1370 ml Justicifation of Admission Dx: Justifications for Admission: Justification of Admission Dx: Yes Acute Hemorrhagic Stroke: Acute Hemorrhagic Stroke LESLI ALCOCER MD Mar 06, 2021 08:20
--- NOTE | 2021-03-06 08:24 | PDOC ---
Infectious Disease Note Subjective Subjective Pt intubated ,sedated ON tpn No new issues per discussion with RN ANNA CASTILLO no n/v/d/ Vital Sign Vital Signs Vital Signs Date Time Temp Pulse Resp B/P (MAP) Pulse Ox O2 Delivery O2 Flow Rate FiO2 03/06/21 08:00 63 128/73 (91) 99 Ventilator 03/06/21 07:00 99.5 14 99.5 Physical Exam PHYSICAL EXAM GENERAL: Sedated on vent, patient is not following commands HEENT: no icterus,NGT + NECK trach present LUNGS: Decreased breath sound at bases HEART: S1, S2 bradycardia ABDOMEN: Soft, nontender, mildly distended EXTREMITIES: + edema, no cyanosis. SKIN:no gen rash NEUROLOGIC: unable to assess Right IJ taken out RT PICC Line clean Labs Lab Laboratory Tests Test 03/05/21 12:34 03/05/21 23:26 03/06/21 05:29 03/06/21 05:30 Glucose (Fingerstick) 210 mg/dL (70-99) 241 mg/dL (70-99) 220 mg/dL (70-99) Sodium Level 134 mmol/L (136-145) Potassium Level 4.3 mmol/L (3.5-5.1) Chloride Level 99 mmol/L (98-107) Carbon Dioxide Level 31 mmol/L (21-32) Anion Gap 4 (6-14) Blood Urea Nitrogen 19 mg/dL (8-26) Creatinine 0.8 mg/dL (0.7-1.3) Estimated GFR (Cockcroft-Gault) 119.3 Glucose Level 218 mg/dL (70-99) Calcium Level 9.0 mg/dL (8.5-10.1) Micro sputum G + cocci and G neg shania Objective Assessment IMPRESSION: 1. Fever. 2. Suspected aspiration. 3. Encephalopathy. 4. Intracranial bleed with mass effect, status post craniotomy and hematoma evacuation. 5. Respiratory failure. 6. Hypertension. 7. Chronic obstructive pulmonary disease. Plan Plan of Care cont Zosyn Zyvox Monitor labs and cults cont supportive care Prognosis remains very poor Neurology following Discussed with nursing staff JANE DELGADO MD Mar 06, 2021 08:24
[2021-03-06] MEDS: POLYETHYLENE GLYCOL 3350 17 GM PACKET. PO SCH (08:58)
[2021-03-06] MEDS: PANTOPRAZOLE IV PUSH 40 MG VIAL. IVP SCH (08:58)
[2021-03-06] MEDS: cloNIDine TTS-3 1 PATCH PATCH.TDWK TD SCH (09:07)
--- NOTE | 2021-03-06 10:03 | PDOC ---
PULMONARY PROGRESS NOTES DATE: 03/06/21 TIME: 09:57 Subjective remains on vent PS 10 and 40% low grade fever overnight no overnight events status post tracheotomy on 02/23 Vitals Vital Signs Date Time Temp Pulse Resp B/P (MAP) Pulse Ox O2 Delivery O2 Flow Rate FiO2 03/06/21 08:47 97 Ventilator 03/06/21 08:00 63 128/73 (91) 03/06/21 07:00 99.5 14 99.5 Comments ros unable to obtain intubated on vent Lungs: Clear Cardiovascular: S1, S2 Abdomen: Soft, Non-tender Extremities: No Edema Skin: Warm Labs Laboratory Tests Test 03/04/21 12:32 03/04/21 18:23 03/04/21 21:07 03/05/21 00:26 Glucose (Fingerstick) 217 mg/dL (70-99) 230 mg/dL (70-99) 210 mg/dL (70-99) 185 mg/dL (70-99) Test 03/05/21 07:15 03/05/21 07:16 03/05/21 12:34 03/05/21 23:26 Sodium Level 130 mmol/L (136-145) Potassium Level 4.2 mmol/L (3.5-5.1) Chloride Level 96 mmol/L (98-107) Carbon Dioxide Level 27 mmol/L (21-32) Anion Gap 7 (6-14) Blood Urea Nitrogen 17 mg/dL (8-26) Creatinine 0.8 mg/dL (0.7-1.3) Estimated GFR (Cockcroft-Gault) 119.3 Glucose Level 210 mg/dL (70-99) Calcium Level 7.7 mg/dL (8.5-10.1) Magnesium Level 1.7 mg/dL (1.8-2.4) Glucose (Fingerstick) 182 mg/dL (70-99) 210 mg/dL (70-99) 241 mg/dL (70-99) Test 03/06/21 05:29 03/06/21 05:30 Glucose (Fingerstick) 220 mg/dL (70-99) Sodium Level 134 mmol/L (136-145) Potassium Level 4.3 mmol/L (3.5-5.1) Chloride Level 99 mmol/L (98-107) Carbon Dioxide Level 31 mmol/L (21-32) Anion Gap 4 (6-14) Blood Urea Nitrogen 19 mg/dL (8-26) Creatinine 0.8 mg/dL (0.7-1.3) Estimated GFR (Cockcroft-Gault) 119.3 Glucose Level 218 mg/dL (70-99) Calcium Level 9.0 mg/dL (8.5-10.1) Laboratory Tests Test 03/05/21 12:34 03/05/21 23:26 03/06/21 05:29 03/06/21 05:30 Glucose (Fingerstick) 210 mg/dL (70-99) 241 mg/dL (70-99) 220 mg/dL (70-99) Sodium Level 134 mmol/L (136-145) Potassium Level 4.3 mmol/L (3.5-5.1) Chloride Level 99 mmol/L (98-107) Carbon Dioxide Level 31 mmol/L (21-32) Anion Gap 4 (6-14) Blood Urea Nitrogen 19 mg/dL (8-26) Creatinine 0.8 mg/dL (0.7-1.3) Estimated GFR (Cockcroft-Gault) 119.3 Glucose Level 218 mg/dL (70-99) Calcium Level 9.0 mg/dL (8.5-10.1) Comments CXR 02/21/21 IMPRESSION: 1. Stable life support devices. 2. Improving bibasilar opacities.. CXR 02/18/21 IMPRESSION: Unchanged bibasilar opacities. Recommend follow-up to ensure resolution, particularly of focal opacities in the right lung base. CXR 02/17/21 IMPRESSION: 1. Stable life support devices. 2. Stable bibasilar opacities. 3. Stable small left pleural effusion. IMPRESSION: Chest x-ray 02/13 1. Stable support lines and tubes. 2. Severe right upper lobe predominant bullous emphysema. 3. Stable right perihilar linear atelectasis or infiltrate superimposed on diffuse interstitial prominence and small pleural effusions. Impression . IMPRESSION: 1. Acute hypoxic respiratory failure multifactorial, predominantly to intraparenchymal cerebral hematoma. Status post tracheostomy 02/[address] reveals evidence of a new moderate-sized stroke of frontal lobe, per neurology 3. Long history of tobaccoism. CT angiogram showed bullous emphysema in the upper lobes. 3. Acute kidney injury--resolved 4. Leukocytosis 5. s/p Right occipital craniotomy with evacuation of intracerebral hematoma. 02/09/21 6. Encephalopathy, multifactorial--ongoing 7. Uncontrolled hypertension 8. Fever, per ID 9. Status post tracheotomy 02/23 CT head 02/13, IMPRESSION: 1. Expected interval evolution of a right posterior temporal/occipital intraparenchymal hematoma status post decompressive craniotomy. 2. Expected evolution of a small amount of subarachnoid and intraventricular clot. DATE OF SURGERY: 02/09/2021 PREOPERATIVE DIAGNOSIS: Right posterior temporoparietal occipital intracerebral hemorrhage with neurologic deterioration. POSTOPERATIVE DIAGNOSIS: Right posterior temporoparietal occipital intracerebral hemorrhage with neurologic deterioration. OPERATION PERFORMED: Right occipital craniotomy with evacuation of intracerebral hematoma. Plan . Updated 03/06/21 Continue current vent support PS 10 and 40% Trach care daily and PRN Follow CXR/ABG PRN--no changes Follow ID recs for ABX on zosyn and zyvox Follow neuro sx recs-- s/p Right occipital craniotomy with evacuation of intracerebral hematoma 02/09/21 Follow neurology recs Continue nutritional support DVT/GI PPX-- no AC 2/2 intracerebral hematoma D/W RN and RT Social work for DC planning-- LTACH? Pt. is FULL code, with poor prognosis Updated 03/05/21 Continue current vent support PS 10 and 40% Follow CXR/ABG PRN Follow ID recs for ABX Follow neurology recs Continue nutritional support DVT/GI PPX-- D/W RN and RT Social work for DC planning Updated 03/04 Neurology input noted Discussed with RN continue sedation Antibiotics per ID Nutritional support MANJULA PADILLA MD Mar 06, 2021 10:03
--- NOTE | 2021-03-06 10:53 | PDOC ---
PROGRESS NOTES Date of Service DATE: 03/06/21 TIME: 10:48 Assessment Large right temporo-occipital intraparenchymal bleed, most likely lobar hemorrhage from hypertension, consider venous sinus thrombosis, less likely in this location, aneurysmal bleed, head trauma (also unlikely). 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 He will need a tracheostomy and PEG Subjective None Objective Vital Signs Date Time Temp Pulse Resp B/P (MAP) Pulse Ox O2 Delivery O2 Flow Rate FiO2 03/06/21 08:47 97 Ventilator 03/06/21 08:00 63 128/73 (91) 03/06/21 07:00 99.5 14 99.5 Intake and Output 03/06/21 07:00 Intake Total 3195 ml Output Total 3220 ml Balance -25 ml Intake Oral 0 ml IV Total 3195 ml Output Urine Total 2970 ml Gastric Drainage Total 250 ml PHYSICAL EXAM Intubated, sedated, no response to pain, no vocalization, no following commands PERRL. EOMI. CN: no focal findings. Muscle tone: normal. Muscle strength: Not testable DTR: 1+ Plantar reflex: Silent Gait: not examined Sensory exam: Not testable. Cerebellar: Not testable Review of Relevant I have reviewed the following items neela (where applicable) has been applied. Labs Laboratory Tests Test 03/04/21 12:32 03/04/21 18:23 03/04/21 21:07 03/05/21 00:26 Glucose (Fingerstick) 217 mg/dL (70-99) 230 mg/dL (70-99) 210 mg/dL (70-99) 185 mg/dL (70-99) Test 03/05/21 07:15 03/05/21 07:16 03/05/21 12:34 03/05/21 23:26 Sodium Level 130 mmol/L (136-145) Potassium Level 4.2 mmol/L (3.5-5.1) Chloride Level 96 mmol/L (98-107) Carbon Dioxide Level 27 mmol/L (21-32) Anion Gap 7 (6-14) Blood Urea Nitrogen 17 mg/dL (8-26) Creatinine 0.8 mg/dL (0.7-1.3) Estimated GFR (Cockcroft-Gault) 119.3 Glucose Level 210 mg/dL (70-99) Calcium Level 7.7 mg/dL (8.5-10.1) Magnesium Level 1.7 mg/dL (1.8-2.4) Glucose (Fingerstick) 182 mg/dL (70-99) 210 mg/dL (70-99) 241 mg/dL (70-99) Test 03/06/21 05:29 03/06/21 05:30 Glucose (Fingerstick) 220 mg/dL (70-99) Sodium Level 134 mmol/L (136-145) Potassium Level 4.3 mmol/L (3.5-5.1) Chloride Level 99 mmol/L (98-107) Carbon Dioxide Level 31 mmol/L (21-32) Anion Gap 4 (6-14) Blood Urea Nitrogen 19 mg/dL (8-26) Creatinine 0.8 mg/dL (0.7-1.3) Estimated GFR (Cockcroft-Gault) 119.3 Glucose Level 218 mg/dL (70-99) Calcium Level 9.0 mg/dL (8.5-10.1) Laboratory Tests Test 03/05/21 12:34 03/05/21 23:26 03/06/21 05:29 03/06/21 05:30 Glucose (Fingerstick) 210 mg/dL (70-99) 241 mg/dL (70-99) 220 mg/dL (70-99) Sodium Level 134 mmol/L (136-145) Potassium Level 4.3 mmol/L (3.5-5.1) Chloride Level 99 mmol/L (98-107) Carbon Dioxide Level 31 mmol/L (21-32) Anion Gap 4 (6-14) Blood Urea Nitrogen 19 mg/dL (8-26) Creatinine 0.8 mg/dL (0.7-1.3) Estimated GFR (Cockcroft-Gault) 119.3 Glucose Level 218 mg/dL (70-99) Calcium Level 9.0 mg/dL (8.5-10.1) Microbiology 02/23/21 Gram Stain - Final, Complete 02/23/21 Aerobic Culture - Final, Complete 02/22/21 Blood Culture - Final, Complete NO GROWTH AFTER 5 DAYS 02/22/21 Gram Stain Evaluation - Final, Complete 02/22/21 Respiratory Culture - Final, Complete Medications Current Medications Nicardipine HCl 50 mg/Sodium Chloride 250 ml @ 12.5 mls/hr CONT PRN IV SEE I/O RECORD Last administered on 02/26/21at 01:20; Start 02/09/21 at 06:15 Labetalol HCl (Normodyne Iv Push) 10 mg PRN Q2HR PRN IVP HYPERTENSION- 1ST CHOICE Last administered on 03/04/21at 02:56; Start 02/09/21 at 06:15 Lorazepam (Ativan Inj) 2 mg 1X ONCE IVP Last administered on 02/09/21at 10:54; Start 02/09/21 at 10:45; Stop 02/09/21 at 10:46; Status DC Lorazepam (Ativan Inj) 2 mg 1X ONCE IVP Last administered on 02/09/21at 11:00; Start 02/09/21 at 11:00; Stop 02/09/21 at 11:01; Status DC Fentanyl Citrate (Fentanyl 2ml Vial) 25 mcg PRN Q2HR PRN IVP MODERATE TO SEVERE PAIN Last administered on 02/09/21at 13:37; Start 02/09/21 at 13:30; Stop 02/18/21 at 22:53; Status DC Info (Review Meds) 1 ea PRN 1X PRN MC SEE COMMENTS; Start 02/09/21 at 15:00 Acetaminophen (Tylenol Supp) 650 mg PRN Q6HRS PRN CA FEVER > 100.5'F or 38'C; Start 02/09/21 at 15:00; Stop 02/11/21 at 21:12; Status DC Albuterol Sulfate (Ventolin Neb Soln) 2.5 mg PRN Q4HRS PRN NEB SHORTNESS OF BREATH; Start 02/09/21 at 15:15 Iohexol (Omnipaque 350 Mg/ml) 75 ml 1X ONCE IV Last administered on 02/09/21at 15:52; Start 02/09/21 at 15:30; Stop 02/09/21 at 15:35; Status DC Iohexol (Omnipaque 350 Mg/ml) 100 ml STK-MED ONCE .ROUTE ; Start 02/09/21 at 15:26; Stop 02/09/21 at 15:27; Status DC Info (CONTRAST GIVEN -- Rx MONITORING) 1 each PRN DAILY PRN MC SEE COMMENTS; Start 02/09/21 at 15:45; Stop 02/11/21 at 15:44; Status DC Propofol 100 ml @ As Directed STK-MED ONCE IV ; Start 02/09/21 at 15:51; Stop 02/09/21 at 15:51; Status DC Rocuronium [place] (Zemuron) 50 mg STK-MED ONCE .ROUTE ; Start 02/09/21 at 15:51; Stop 02/09/21 at 15:51; Status DC Lidocaine HCl (Lidocaine HCl 2% Abboject) 100 mg STK-MED ONCE .ROUTE ; Start 02/09/21 at 15:52; Stop 02/09/21 at 15:53; Status DC Propofol 100 ml @ 3.507 mls/ hr CONT PRN IV PER PROTOCOL Last administered on 03/06/21at 08:55; Start 02/09/21 at 16:15 Lidocaine HCl (Lidocaine HCl 2% Abboject) 100 mg 1X ONCE IV Last administered on 02/09/21at 16:17; Start 02/09/21 at 16:15; Stop 02/09/21 at 16:17; Status DC Rocuronium [place] (Zemuron) 50 mg 1X ONCE IV Last administered on 02/09/21at 16:17; Start 02/09/21 at 16:15; Stop 02/09/21 at 16:17; Status DC Rocuronium [place] (Zemuron) 100 mg STK-MED ONCE .ROUTE ; Start 02/09/21 at 16:31; Stop 02/09/21 at 16:32; Status DC Gelatin (Gelfoam Size 100) 1 each STK-MED ONCE .ROUTE Last administered on 02/09/21at 17:49; Start 02/09/21 at 16:33; Stop 02/09/21 at 16:33; Status DC Bupivacaine HCl/ Epinephrine Bitart (Sensorcain-Epi 0.5%-1:245846 Mpf) 30 ml STK-MED ONCE .ROUTE Last administered on 02/09/21at 17:49; Start 02/09/21 at 16:33; Stop 02/09/21 at 16:33; Status DC Cellulose (Surgicel Hemostat 4x8) 1 each STK-MED ONCE .ROUTE Last administered on 02/09/21at 18:38; Start 02/09/21 at 16:33; Stop 02/09/21 at 16:33; Status DC Thrombin 20,000 unit STK-MED ONCE TP Last administered on 02/09/21at 17:49; Start 02/09/21 at 16:33; Stop 02/09/21 at 16:33; Status DC Fentanyl Citrate (Fentanyl 2ml Vial) 75 mcg 1X ONCE IVP Last administered on 02/09/21at 16:45; Start 02/09/21 at 16:45; Stop 02/09/21 at 16:47; Status DC Propofol (Diprivan) 200 mg 1X ONCE IV ; Start 02/09/21 at 17:15; Stop 02/09/21 at 17:16; Status DC Lidocaine HCl (Lidocaine HCl 2% Abboject) 100 mg 1X ONCE IV ; Start 02/09/21 at 17:15; Stop 02/09/21 at 17:16; Status DC Rocuronium [place] (Zemuron) 50 mg 1X ONCE IV ; Start 02/09/21 at 17:15; Stop 02/09/21 at 17:16; Status DC Propofol 100 ml @ 0 mls/hr CONT PRN PRN IV SEDATION; Start 02/09/21 at 17:15; Stop 02/10/21 at 05:14; Status DC Cefazolin Sodium (Ancef) 1 gm STK-MED ONCE IVP ; Start 02/09/21 at 17:28; Stop 02/09/21 at 17:28; Status DC Fentanyl Citrate (Fentanyl 2ml Vial) 100 mcg STK-MED ONCE .ROUTE ; Start 02/09/21 at 17:43; Stop 02/09/21 at 17:43; Status DC Rocuronium [place] (Zemuron) 100 mg STK-MED ONCE .ROUTE ; Start 02/09/21 at 17:58; Stop 02/09/21 at 17:59; Status DC Vecuronium [place] (Norcuron Bolus) 10 mg STK-MED ONCE IV ; Start 02/09/21 at 18:49; Stop 02/09/21 at 18:50; Status DC Sodium Chloride (SODIUM CHLORIDE 20ml) 20 ml STK-MED ONCE IJ ; Start 02/09/21 at 18:50; Stop 02/09/21 at 18:50; Status DC Sevoflurane (Ultane) 90 ml STK-MED ONCE IH ; Start 02/09/21 at 19:20; Stop 02/09/21 at 19:21; Status DC Fentanyl Citrate 30 ml @ 2.5 mls/hr CONT PRN IV SEE PROTOCOL Last administered on 02/09/21at 23:40; Start 02/09/21 at 23:15; Stop 02/10/21 at 04:43; Status DC Fentanyl Citrate 55 ml @ 0 mls/hr CONT PRN IV SEE I/O Last administered on 03/05/21at 09:59; Start 02/10/21 at 05:00 Potassium Chloride/Dextrose/ Sod Cl 1,000 ml @ 80 mls/hr [id number] IV ; Start 02/10/21 at 09:00; Stop 02/10/21 at 13:21; Status DC Pantoprazole Sodium (PROTONIX VIAL for IV PUSH) 40 mg DAILYAC IVP Last administered on 03/06/21at 08:58; Start 02/10/21 at 09:00 Lidocaine HCl (Buffered Lidocaine 1%) 3 ml STK-MED ONCE .ROUTE ; Start 02/10/21 at 13:18; Stop 02/10/21 at 13:18; Status DC Sodium Chloride 1,000 ml @ 80 mls/hr [id number] IV Last administered on 02/12/21at 03:00; Start 02/10/21 at 13:30; Stop 02/12/21 at 15:36; Status DC Lidocaine HCl (Buffered Lidocaine 1%) 6 ml 1X ONCE INJ Last administered on 02/10/21at 13:57; Start 02/10/21 at 13:45; Stop 02/10/21 at 13:46; Status DC Potassium Chloride/Water 100 ml @ 100 mls/hr Q1H IV Last administered on 02/11/21at 10:07; Start 02/11/21 at 08:00; Stop 02/11/21 at 09:59; Status DC Piperacillin Sod/ Tazobactam Sod 3.375 gm/Sodium Chloride 50 ml @ 100 mls/hr Q6HRS IV Last administered on 03/06/21at 05:31; Start 02/11/21 at 09:00 Info (Tpn Per Pharmacy) 1 each PRN DAILY PRN MC SEE COMMENTS Last administered on 03/05/21at 13:03; Start 02/11/21 at 11:15 Sodium Chloride 90 meq/Potassium Chloride 50 meq/ Potassium Phosphate 13.6 mmol/Magnesium Sulfate 10 meq/ Calcium Gluconate 10 meq/ Multivitamins 5 ml/Zinc/Copper/ Manganese/ Selenium 1 ml/ Total Parenteral Nutrition/Amino Acids/Dextrose 1,512 ml @ 63 mls/hr TPN CONT IV Last administered on 02/11/21at 22:32; Start 02/11/21 at 22:00; Stop 02/12/21 at 21:59; Status DC Furosemide (Lasix) 20 mg 1X ONCE IVP Last administered on 02/11/21at 15:11; Start 02/11/21 at 15:30; Stop 02/11/21 at 15:31; Status DC Furosemide (Lasix) 20 mg 1X ONCE IVP Last administered on 02/11/21at 17:00; Start 02/11/21 at 17:00; Stop 02/11/21 at 17:01; Status DC Midazolam HCl 100 ml @ 1 mls/hr CONT PRN IV SEE PROTOCOL Last administered on 02/13/21at 20:58; Start 02/11/21 at 19:30 Acetaminophen (Tylenol Supp) 650 mg PRN Q6HRS PRN CA MILD PAIN / TEMP > 100.3'F; Start 02/11/21 at 21:15 Sodium Chloride 80 meq/Potassium Chloride 50 meq/ Potassium Phosphate 13.6 mmol/Magnesium Sulfate 6 meq/ Calcium Gluconate 10 meq/ Multivitamins 5 ml/Zinc/Copper/ Manganese/ Selenium 1 ml/ Total Parenteral Nutrition/Amino Acids/Dextrose 1,512 ml @ 63 mls/hr TPN CONT IV Last administered on 02/12/21at 22:09; Start 02/12/21 at 22:00; Stop 02/13/21 at 21:59; Status DC Furosemide (Lasix) 40 mg 1X ONCE IVP Last administered on 02/12/21at 12:44; Start 02/12/21 at 12:30; Stop 02/12/21 at 12:31; Status DC Insulin Human Lispro (HumaLOG) 0-5 UNITS Q6HRS SQ Last administered on 03/06/21at 05:32; Start 02/12/21 at 12:00 Dextrose (Dextrose 50%-Water Syringe) 12.5 gm PRN Q15MIN PRN IV SEE COMMENTS; Start 02/12/21 at 12:15 Clonidine HCl (Catapres Tts-3) 1 patch WEEKLY TD Last administered on 03/06/21at 09:07; Start 02/13/21 at 11:00 Sodium Chloride 80 meq/Potassium Chloride 50 meq/ Potassium Phosphate 13.6 mmol/Magnesium Sulfate 6 meq/ Calcium Gluconate 10 meq/ Multivitamins 5 ml/Zi nc/Copper/ Manganese/ Selenium 1 ml/ Total Parenteral Nutrition/Amino Acids/Dextrose 1,512 ml @ 63 mls/hr TPN CONT IV Last administered on 02/13/21at 21:42; Start 02/13/21 at 22:00; Stop 02/14/21 at 21:59; Status DC Potassium Acetate 50 meq/Potassium Phosphate 13.6 mmol/Magnesium Sulfate 6 meq/ Calcium Gluconate 10 meq/ Multivitamins 5 ml/Zinc/Copper/ Manganese/ Selenium 1 ml/ Total Parenteral Nutrition/Amino Acids/Dextrose 1,512 ml @ 63 mls/hr TPN CONT IV Last administered on 02/14/21at 21:59; Start 02/14/21 at 22:00; Stop 02/15/21 at 21:59; Status DC Insulin Glargine (Lantus Syringe) 10 unit QHS SQ Last administered on 02/15/21at 22:11; Start 02/14/21 at 21:00; Stop 02/16/21 at 12:42; Status DC Hydralazine HCl (Apresoline Inj) 10 mg PRN Q4HRS PRN IVP ELEVATED BP, SEE COMMENTS Last administered on 03/04/21at 01:11; Start 02/14/21 at 16:00 Potassium Acetate 50 meq/Potassium Phosphate 13.6 mmol/Magnesium Sulfate 6 meq/ Calcium Gluconate 10 meq/ Multivitamins 5 ml/Zinc/Copper/ Manganese/ Selenium 1 ml/ Total Parenteral Nutrition/Amino Acids/Dextrose 1,512 ml @ 63 mls/hr TPN CONT IV Last administered on 02/15/21at 22:13; Start 02/15/21 at 22:00; Stop 02/16/21 at 21:59; Status DC Dexmedetomidine HCl 400 mcg/ Sodium Chloride 100 ml @ 0 mls/hr CONT PRN IV PER PROTOCOL Last administered on 03/06/21at 08:00; Start 02/15/21 at 14:15 Sodium Chloride 500 ml @ 500 mls/hr 1X PRN PRN IV SEE COMMENTS; Start 02/15/21 at 14:15 Atropine Sulfate (ATROPINE 0.5mg SYRINGE) 0.5 mg PRN Q5MIN PRN IV SEE COMMENTS; Start 02/15/21 at 14:15 Potassium Acetate 50 meq/Potassium Phosphate 13.6 mmol/Magnesium Sulfate 6 meq/ Calcium Gluconate 10 meq/ Multivitamins 5 ml/Zinc/Copper/ Manganese/ Selenium 1 ml/ Total Parenteral Nutrition/Amino Acids/Dextrose 1,512 ml @ 63 mls/hr TPN CONT IV Last administered on 02/16/21at 22:59; Start 02/16/21 at 22:00; Stop 02/17/21 at 21:59; Status DC Insulin Glargine (Lantus Syringe) 14 unit QHS SQ Last administered on 02/16/21at 21:14; Start 02/16/21 at 21:00; Stop 02/17/21 at 14:15; Status DC Potassium Acetate 50 meq/Potassium Phosphate 13.6 mmol/Magnesium Sulfate 6 meq/ Calcium Gluconate 10 meq/ Multivitamins 5 ml/Zinc/Copper/ Manganese/ Selenium 1 ml/ Total Parenteral Nutrition/Amino Acids/Dextrose 1,512 ml @ 63 mls/hr TPN CONT IV Last administered on 02/17/21at 20:48; Start 02/17/21 at 22:00; Stop 02/18/21 at 21:59; Status DC Dextrose 1,000 ml @ 75 mls/hr [id number] IV Last administered on 02/18/21at 13:51; Start 02/17/21 at 10:30; Stop 02/19/21 at 12:57; Status DC Insulin Glargine (Lantus Syringe) 18 unit QHS SQ Last administered on 02/17/21at 20:46; Start 02/17/21 at 21:00; Stop 02/18/21 at 11:56; Status DC Insulin Glargine (Lantus Syringe) 22 unit QHS SQ Last administered on 02/18/21at 21:00; Start 02/18/21 at 21:00; Stop 02/19/21 at 14:08; Status DC Potassium Acetate 50 meq/Potassium Phosphate 13.6 mmol/Magnesium Sulfate 6 meq/ Calcium Gluconate 10 meq/ Multivitamins 5 ml/Zinc/Copper/ Manganese/ Selenium 1 ml/ Total Parenteral Nutrition/Amino Acids/Dextrose 1,512 ml @ 63 mls/hr TPN CONT IV Last administered on 02/18/21at 21:43; Start 02/18/21 at 22:00; Stop 02/19/21 at 21:59; Status DC Potassium Acetate 50 meq/Potassium Phosphate 13.6 mmol/Magnesium Sulfate 6 meq/ Calcium Gluconate 10 meq/ Multivitamins 5 ml/Zinc/Copper/ Manganese/ Selenium 1 ml/ Total Parenteral Nutrition/Amino Acids/Dextrose 2,040 ml @ 85 mls/hr TPN CONT IV Last administered on 02/19/21at 20:56; Start 02/19/21 at 22:00; Stop 02/20/21 at 21:59; Status DC Insulin Glargine (Lantus Syringe) 25 unit QHS SQ Last administered on 02/20/21at 22:11; Start 02/19/21 at 21:00; Stop 02/21/21 at 10:10; Status DC Acetaminophen (Tylenol) 650 mg PRN Q6HRS PRN PEG MILD PAIN / TEMP > 100.3'F Last administered on 03/04/21at 07:39; Start 02/19/21 at 18:00 Potassium Acetate 50 meq/Potassium Phosphate 13.6 mmol/Magnesium Sulfate 6 meq/ Calcium Gluconate 10 meq/ Multivitamins 5 ml/Zinc/Copper/ Manganese/ Selenium 1 ml/ Total Parenteral Nutrition/Amino Acids/Dextrose 2,040 ml @ 85 mls/hr TPN CONT IV Last administered on 02/20/21at 22:10; Start 02/20/21 at 22:00; Stop 02/21/21 at 21:59; Status DC Insulin Glargine (Lantus Syringe) 27 unit QHS SQ Last administered on 03/01/21at 21:18; Start 02/21/21 at 21:00; Stop 03/02/21 at 13:32; Status DC Magnesium Sulfate 50 ml @ 25 mls/hr 1X ONCE IV Last administered on 02/21/21at 11:30; Start 02/21/21 at 11:00; Stop 02/21/21 at 12:59; Status DC Potassium Acetate 50 meq/Potassium Phosphate 13.6 mmol/Magnesium Sulfate 8 meq/ Calcium Gluconate 10 meq/ Multivitamins 5 ml/Zinc/Copper/ Manganese/ Selenium 1 ml/ Total Parenteral Nutrition/Amino Acids/Dextrose 2,040 ml @ 85 mls/hr TPN CONT IV Last administered on 02/21/21at 21:23; Start 02/21/21 at 22:00; Stop 02/22/21 at 21:59; Status DC Daptomycin 570 mg/ Sodium Chloride 50 ml @ 100 mls/hr Q24H IV Last ad ministered on 02/24/21at 13:10; Start 02/22/21 at 12:00; Stop 02/25/21 at 10:34; Status DC Linezolid/Dextrose 300 ml @ 300 mls/hr Q12HR IV Last administered on 03/02/21at 08:26; Start 02/22/21 at 09:00; Stop 03/02/21 at 08:42; Status DC Potassium Acetate 50 meq/Potassium Phosphate 13.6 mmol/Magnesium Sulfate 8 meq/ Calcium Gluconate 5 meq/ Multivitamins 5 ml/Zinc/Copper/ Manganese/ Selenium 1 ml/ Total Parenteral Nutrition/Amino Acids/Dextrose 2,040 ml @ 85 mls/hr TPN CONT IV Last administered on 02/22/21at 21:32; Start 02/22/21 at 22:00; Stop 02/23/21 at 21:59; Status DC Fentanyl Citrate (Fentanyl 2ml Vial) 25 mcg PRN Q5MIN PRN IVP MILD PAIN 1-3; Start 02/23/21 at 06:00; Stop 02/24/21 at 05:59; Status DC Fentanyl Citrate (Fentanyl 2ml Vial) 50 mcg PRN Q5MIN PRN IVP MODERATE PAIN 4- 6; Start 02/23/21 at 06:00; Stop 02/24/21 at 05:59; Status DC Morphine Sulfate (Morphine Sulfate) 1 mg PRN Q10MIN PRN IVP SEVERE PAIN 7-10; Start 02/23/21 at 06:00; Stop 02/24/21 at 05:59; Status DC Ringer's Solution 1,000 ml @ 30 mls/hr Q24H IV Last administered on 02/23/21at 11:00; Start 02/23/21 at 06:00; Stop 02/23/21 at 17:59; Status DC Hydromorphone HCl (Dilaudid) 0.5 mg PRN Q10MIN PRN IVP SEVERE PAIN 7-10, 2nd CHOICE; Start 02/23/21 at 06:00; Stop 02/24/21 at 05:59; Status DC Prochlorperazine Edisylate (Compazine) 5 mg PACU PRN PRN IVP NAUSEA, MRX1; Start 02/23/21 at 06:00; Stop 02/24/21 at 05:59; Status DC Cellulose (Surgicel Fibrillar 1x2) 1 each STK-MED ONCE .ROUTE ; Start 02/23/21 at 08:23; Stop 02/23/21 at 08:23; Status DC Lidocaine/ Epinephrine (LIDOCAINE 1%-EPI 1:100,000 Multi-Dose) 20 ml STK-MED ONCE .ROUTE Last administered on 02/23/21at 13:33; Start 02/23/21 at 08:23; Stop 02/23/21 at 08:23; Status DC Potassium Acetate 50 meq/Potassium Phosphate 13.6 mmol/Magnesium Sulfate 8 meq/ Calcium Gluconate 5 meq/ Multivitamins 5 ml/Zinc/Copper/ Manganese/ Selenium 1 ml/ Total Parenteral Nutrition/Amino Acids/Dextrose 2,040 ml @ 85 mls/hr TPN CONT IV ; Start 02/23/21 at 22:00; Stop 02/24/21 at 21:59; Status DC Rocuronium [place] (Zemuron) 50 mg STK-MED ONCE .ROUTE ; Start 02/23/21 at 12:13; Stop 02/23/21 at 12:13; Status DC Fentanyl Citrate (Fentanyl 2ml Vial) 100 mcg STK-MED ONCE .ROUTE ; Start 02/23/21 at 12:24; Stop 02/23/21 at 12:24; Status DC Insulin Human Lispro (HumaLOG VIAL for OP,RR ONLY) 0-10 units PRN Q1HR PRN SQ PER PROTOCOL Last administered on 02/23/21at 13:00; Start 02/23/21 at 13:15; Stop 02/24/21 at 13:14; Status DC Rocuronium [place] (Zemuron) 100 mg STK-MED ONCE .ROUTE ; Start 02/23/21 at 13:22; Stop 02/23/21 at 13:23; Status DC Albuterol Sulfate (Ventolin Hfa) 60 puff STK-MED ONCE INH ; Start 02/23/21 at 13:47; Stop 02/23/21 at 13:48; Status DC Sevoflurane (Ultane) 60 ml STK-MED ONCE IH ; Start 02/23/21 at 14:21; Stop 02/23/21 at 14:21; Status DC Potassium Acetate 50 meq/Potassium Phosphate 13.6 mmol/Magnesium Sulfate 8 meq/ Calcium Gluconate 5 meq/ Multivitamins 5 ml/Zinc/Copper/ Manganese/ Selenium 1 ml/ Total Parenteral Nutrition/Amino Acids/Dextrose 2,040 ml @ 85 mls/hr TPN CONT IV ; Start 02/25/21 at 22:00; Stop 02/26/21 at 21:59; Status DC Potassium Acetate 50 meq/Potassium Phosphate 13.6 mmol/Magnesium Sulfate 8 meq/ Calcium Gluconate 5 meq/ Multivitamins 5 ml/Zinc/Copper/ Manganese/ Selenium 1 ml/ Total Parenteral Nutrition/Amino Acids/Dextrose 2,040 ml @ 85 mls/hr TPN CONT IV Last administered on 02/26/21at 21:27; Start 02/26/21 at 22:00; Stop 02/27/21 at 21:59; Status DC Potassium Acetate 50 meq/Potassium Phosphate 13.6 mmol/Magnesium Sulfate 8 meq/ Calcium Gluconate 5 meq/ Multivitamins 5 ml/Zinc/Copper/ Manganese/ Selenium 1 ml/ Total Parenteral Nutrition/Amino Acids/Dextrose 2,040 ml @ 85 mls/hr TPN CONT IV Last administered on 02/27/21at 21:01; Start 02/27/21 at 22:00; Stop 02/28/21 at 21:59; Status DC Potassium Acetate 50 meq/Potassium Phosphate 13.6 mmol/Magnesium Sulfate 8 meq/ Calcium Gluconate 5 meq/ Multivitamins 5 ml/Zinc/Copper/ Manganese/ Selenium 1 ml/ Total Parenteral Nutrition/Amino Acids/Dextrose 2,040 ml @ 85 mls/hr TPN CONT IV Last administered on 02/28/21at 21:44; Start 02/28/21 at 22:00; Stop 03/01/21 at 21:59; Status DC Potassium Acetate 50 meq/Potassium Phosphate 13.6 mmol/Magnesium Sulfate 8 meq/ Calcium Gluconate 5 meq/ Multivitamins 5 ml/Zinc/Copper/ Manganese/ Selenium 1 ml/ Total Parenteral Nutrition/Amino Acids/Dextrose 2,040 ml @ 85 mls/hr TPN CONT IV Last administered on 03/01/21at 21:22; Start 03/01/21 at 22:00; Stop 03/02/21 at 21:59; Status DC Potassium Acetate 50 meq/Potassium Phosphate 13.6 mmol/Magnesium Sulfate 8 meq/ Multivitamins 5 ml/Zinc/Copper/ Manganese/ Selenium 1 ml/ Total Parenteral Nutrition/Amino Acids/Dextrose 2,040 ml @ 85 mls/hr TPN CONT IV Last administered on 03/02/21at 21:11; Start 03/02/21 at 22:00; Stop 03/03/21 at 21:59; Status DC Insulin Glargine (Lantus Syringe) 35 unit QHS SQ Last administered on 03/05/21at 20:32; Start 03/02/21 at 21:00 Potassium Acetate 50 meq/Potassium Phosphate 13.6 mmol/Magnesium Sulfate 8 meq/ Multivitamins 5 ml/Zinc/Copper/ Manganese/ Selenium 1 ml/ Total Parenteral Nutrition/Amino Acids/Dextrose 1,800 ml @ 75 mls/hr TPN CONT IV Last administered on 03/03/21at 21:54; Start 03/03/21 at 22:00; Stop 03/04/21 at 21:59; Status DC Docusate Sodium (Colace Solution) 100 mg DAILY PO Last administered on 03/05/21at 09:53; Start 03/03/21 at 10:00 Polyethylene Glycol (miraLAX PACKET) 17 gm DAILY PO Last administered on 03/06/21at 08:58; Start 03/03/21 at 10:00 Potassium Acetate 40 meq/Potassium Phosphate 13.6 mmol/Magnesium Sulfate 10 meq/ Multivitamins 5 ml/Zinc/Copper/ Manganese/ Selenium 1 ml/ Total Parenteral Nutrition/Amino Acids/Dextrose 1,800 ml @ 75 mls/hr TPN CONT IV Last administered on 03/04/21at 22:16; Start 03/04/21 at 22:00; Stop 03/05/21 at 21:59; Status DC Linezolid/Dextrose 300 ml @ 300 mls/hr Q12HR IV Last administered on 03/06/21at 09:13; Start 03/05/21 at 09:00 Magnesium Sulfate 50 ml @ 25 mls/hr 1X ONCE IV Last administered on 03/05/21at 13:31; Start 03/05/21 at 14:00; Stop 03/05/21 at 15:59; Status DC Sodium Chloride 40 meq/Potassium Acetate 40 meq/ Potassium Phosphate 13.6 mm ol/Magnesium Sulfate 10 meq/ Multivitamins 5 ml/Zinc/Copper/ Manganese/ Selenium 1 ml/ Total Parenteral Nutrition/Amino Acids/Dextrose 1,800 ml @ 75 mls/hr TPN CONT IV Last administered on 03/05/21at 21:20; Start 03/05/21 at 22:00; Stop 03/06/21 at 21:59 Vitals/I & O Vital Sign - Last 24 Hours 03/05/21 03/05/21 03/05/21 03/05/21 11:00 12:00 12:00 12:07 Temp 97.9 97.9 Pulse 62 52 Resp 14 12 B/P (MAP) 125/75 (92) 155/77 (103) Pulse Ox 96 97 97 O2 Delivery Ventilator Ventilator Mechanical Ventilator Ventilator 03/05/21 03/05/21 03/05/21 03/05/21 13:00 14:00 14:40 15:00 Temp 98.7 98.7 Pulse 52 62 50 Resp 12 16 16 B/P (MAP) 172/68 (102) 146/88 (107) 152/81 (104) Pulse Ox 99 97 100 97 O2 Delivery Ventilator Ventilator Ventilator Ventilator 03/05/21 03/05/21 03/05/21 03/05/21 16:00 16:00 16:24 17:00 Pulse 58 62 Resp 16 16 B/P (MAP) 161/83 (109) 145/88 (107) Pulse Ox 96 100 97 O2 Delivery Mechanical Ventilator Ventilator Ventilator Ventilator 03/05/21 03/05/21 03/05/21 03/05/21 18:00 18:25 19:00 19:30 Pulse 64 65 Resp 16 16 B/P (MAP) 122/70 (87) 141/84 (103) Pulse Ox 96 100 100 O2 Delivery Ventilator Ventilator Ventilator Mechanical Ventilator 03/05/21 03/05/21 03/05/21 03/05/21 20:00 20:41 21:00 22:00 Temp 98.9 98.9 Pulse 62 63 62 Resp 16 17 19 B/P (MAP) 127/78 (94) 131/79 (96) 156/91 (112) Pulse Ox 100 100 100 100 O2 Delivery Ventilator Ventilator Ventilator Ventilator 03/05/21 03/05/21 03/05/21 03/06/21 23:00 23:30 23:55 00:01 Temp 99.3 99.3 Pulse 66 71 Resp 15 12 B/P (MAP) 139/87 (104) 153/91 (111) Pulse Ox 100 100 100 O2 Delivery Ventilator Mechanical Ventilator Ventilator Ventilator 03/06/21 03/06/21 03/06/21 03/06/21 01:00 02:00 02:45 03:00 Pulse 67 66 66 Resp 19 16 19 B/P (MAP) 138/62 (87) 168/93 (118) 150/91 (110) Pulse Ox 100 100 100 100 O2 Delivery Ventilator Ventilator Ventilator Ventilator 03/06/21 03/06/21 03/06/21 03/06/21 03:30 04:00 05:00 05:14 Temp 99.6 99.6 Pulse 65 66 Resp 16 16 B/P (MAP) 143/89 (107) 143/88 (106) Pulse Ox 100 100 97 O2 Delivery Mechanical Ventilator Ventilator Ventilator Ventilator 03/06/21 03/06/21 03/06/21 03/06/21 06:00 07:00 08:00 08:47 Temp 99.5 99.5 Pulse 66 65 63 Resp 14 14 B/P (MAP) 143/84 (103) 133/83 (100) 128/73 (91) Pulse Ox 100 100 99 97 O2 Delivery Ventilator Ventilator Ventilator Ventilator Intake and Output 03/05/21 03/05/21 03/06/21 15:00 23:00 07:00 Intake Total 0 ml 300 ml 2895 ml Output Total 645 ml 1050 ml 1525 ml Balance -645 ml -750 ml [address] HEAD WITHOUT CONTRAST 02/27/2021 12:57 PM Indication: Reason: f/u ICH, s/p craniotomy-RN [facility] WILL CALL WHEN READY / Spl. Instructions: / History: Comparison: CT head without contrast February 20, 2021 Procedure: Multidetector CT imaging of the head was performed without the administration of contrast. Findings: There is been interval development of area of low density in left frontal lobe, concerning for subacute infarct. Interval development of a low-density area in the right parietal lobe could be developing encephalomalacia from adjacent bleeding postop change or small infarct. Punctate areas of hyperdensity within the involved parenchyma could represent minimal hemorrhagic transformation. Underlying contusion developing encephalomalacia within the right the right temporal, occipital, and parietal intraparenchymal hemorrhage has decreased. Small amount of intraventricular hemorrhage seen in the dependent portion of the left lateral ventricle similar. Areas of subarachnoid hemorrhage throughout the left humeral hemisphere are unchanged. No new midline shift is seen. Decreasing focal mass effect with a decreasing hemorrhage noted. No evidence of obstructive hydrocephalus is seen. No acute osseous changes are noted in the interim. IMPRESSION: 1. Interval development of a left frontal hypodensity concerning for subacute infarct. There is also a new small area of low density in the superior posterior parietal region which could represent developing encephalomalacia from the prior bleed or surgery versus a second small subacute infarct . 2. Continued decrease in large intraparenchymal hemorrhage in the right parietal, occipital, and temporal lobes. Decrease in scattered subarachnoid hemorrhage 3.Persistent small amount of left lateral ventricular hemorrhage without hydrocephalus Justicifation of Admission Dx: Justifications for Admission: Justification of Admission Dx: Yes Acute Hemorrhagic Stroke: Acute Hemorrhagic Stroke EITAN LORENZO MD Mar 06, 2021 10:53
[2021-03-06 10:56] LABS: MAGNESIUM 1.9 mg/dL (1.8-2.4); PHOSPHORUS 4.4 mg/dL (2.6-4.7)
[2021-03-06 12:29] LABS: BASO % 1 % (0-3); EOS # 0.2 x10^3/uL (0.0-0.7); EOS % 3 % (0-3); HEMATOCRIT 32.6 % (39.0-53.0); HEMOGLOBIN 10.8 g/dL (13.0-17.5); LYMPH # 1.7 x10^3/uL (1.0-4.8); LYMPH % 24 % (24-48); MEAN CORPUSCULAR HEMOGLOBIN 30 pg (25-35); MEAN CORPUSCULAR HGB CONC 33 g/dL (31-37); MEAN CORPUSCULAR VOLUME 91 fL (79-100); MONO # 0.7 x10^3/uL (0.0-1.1); MONO % 11 % (0-9); NEUT # 4.1 x10^3/uL (1.8-7.7); NEUT % 61 % (31-73); PLATELET COUNT 197 x10^3/uL (140-400); RED BLOOD COUNT 3.58 x10^6/uL (4.30-5.70); RED CELL DISTRIBUTION WIDTH 13.7 % (11.5-14.5); WHITE BLOOD COUNT 6.8 x10^3/uL (4.0-11.0)
[2021-03-06] MEDS: DOCUSATE 100 MG/10 ML SOLUTION. PO SCH (14:10)
[2021-03-06] MEDS: TPN PER PHARMACY MC PRN (14:47)
--- NOTE | 2021-03-06 14:48 | NUR ---
Pharmacy TPN Dosing Note S: COOPER CHAVEZ is a 61 year old M Currently receiving Central Continuous TPN started 02/11/21 B:Pertinent PMH: ILEUS, UNABLE TO START TUBE FEEDS Height: 6 feet, 2 inches Weight: 114.3 kg Current diet: NPO LABS: Sodium: 134 Potassium: 4.3 Chloride: 99 Calcium: 9.0 Corrected Calcium: 10.52 Magnesium: 1.9 CO2: 31 SCr: 0.8 Glucose: 218 Albumin: 2.1 AST: 35 ALT: 67 TPN FORMULA: TPN TYPE: Central Continuous AMINO ACIDS: 98 gm DEXTROSE: 255 gm LIPIDS: 0 gm SODIUM CHLORIDE: 40 mEq POTASSIUM ACETATE: 40 mEq POTASSIUM PHOSPHATE: 13.6 mmol MAGNESIUM: 10 mEq MULTIPLE VITAMIN: 5 ml TRACE ELEMENTS: 1 ml TPN PLAN: -Serum sodium trending up with NaCl addition to TPN. -Electrolytes appear WNL and stable. -No labs needed for 03/07/21. R: Continue TPN Will monitor electrolytes, glucose, and tolerance to TPN. [facility], 03/06/21 [id number]
[2021-03-06] MEDS: hydrALAZINE 20 MG/ML VIAL. IVP PRN (15:17)
--- NOTE | 2021-03-06 15:29 | RAD ---
EXAM: Chest, single view. HISTORY: Pneumonia. COMPARISON: 02/26/2021 FINDINGS: A frontal view of the chest is obtained. There is a tracheostomy device overlying the mid t rachea. There is a nasogastric tube within the stomach. There is a right PICC with the tip in the sup erior vena cava. There is bullous emphysema involving the right upper thorax. There is stable diffuse lower lobe predominant interstitial infiltrate and suspected small pleural effusions. There is a sta ble cardiac silhouette. IMPRESSION: 1. Stable bilateral lower lobe predominant interstitial infiltrate with suspected small pleural effus ions. 2. Stable right apical predominant bullous emphysema. 3. Stable support lines and tubes. Electronically signed by: Izzy Braswell MD (03/06/2021 3:26 PM) [id number]
[2021-03-06] MEDS: fentaNYL HIGH DOSE PCA 55 ML IV PRN (16:38)
[2021-03-06] MEDS: INSULIN GLARGINE SYRINGE. SQ SCH (20:27)
[2021-03-06] MEDS ORDERED: [UNRECOGNIZED DRUG - OTHER] IV SCH (22:00)
[2021-03-06] MEDS ORDERED: AMINO ACID IV SCH (22:00)
[2021-03-06] MEDS ORDERED: TOTAL PARENTERAL NUTRITION IV SCH (22:00)
[2021-03-06] MEDS ORDERED: DEXTROSE 70% IV SCH (22:00)
[2021-03-07] VITALS (20 sets, daily range): BP systolic 93–161; BP diastolic 56–93
[2021-03-07] MEDS: DEXMEDETOMIDINE 400 MCG in IV NORMAL SALINE 100ML 96 ML IV PRN ×4 (02:45→20:32)
[2021-03-07] MEDS: PROPOFOL 100 ML IV PRN ×6 (02:46→22:54)
[2021-03-07] MEDS: PIPERACILLIN/TAZOBACTAM 3.375 GM in IV NORMAL SALINE 50ML 50 ML IV SCH (05:35)
[2021-03-07] MEDS: INSULIN LISPRO 300 UNITS/3 ML VIAL. SQ SCH ×4 (05:37→23:42)
[2021-03-07 06:18] LABS: HEMATOCRIT 30.8 % (39.0-53.0); HEMOGLOBIN 10.3 g/dL (13.0-17.5); RED BLOOD COUNT 3.43 x10^6/uL (4.30-5.70); RED CELL DISTRIBUTION WIDTH 13.7 % (11.5-14.5); WHITE BLOOD COUNT 6.6 x10^3/uL (4.0-11.0)
[2021-03-07 06:35] LABS: ALBUMIN 2.3 g/dL (3.4-5.0); ALBUMIN/GLOBULIN RATIO 0.5 (1.0-1.7); CALCIUM 9.2 mg/dL (8.5-10.1); CREATININE 0.7 mg/dL (0.7-1.3); GFR 139.2; MAGNESIUM 1.8 mg/dL (1.8-2.4); PHOSPHORUS 4.5 mg/dL (2.6-4.7); POTASSIUM 4.4 mmol/L (3.5-5.1); TOTAL BILIRUBIN 0.5 mg/dL (0.2-1.0); TOTAL PROTEIN 6.5 g/dL (6.4-8.2)
--- NOTE | 2021-03-07 07:12 | PDOC ---
Infectious Disease Note Subjective Subjective Pt intubated ,sedated ON tpn No new issues per discussion with CHELSIE CASTILLO No nausea vomiting diarrhea fever Vital Sign Vital Signs Vital Signs Date Time Temp Pulse Resp B/P (MAP) Pulse Ox O2 Delivery O2 Flow Rate FiO2 03/07/21 06:00 56 13 144/92 (109) 98 Ventilator 03/07/21 04:00 98.6 98.6 Physical Exam PHYSICAL EXAM GENERAL: Sedated on vent, patient is not following commands HEENT: no icterus,NGT + NECK trach present LUNGS: Decreased breath sound at bases HEART: S1, S2 bradycardia ABDOMEN: Soft, nontender, mildly distended EXTREMITIES: + edema, no cyanosis. SKIN:no gen rash NEUROLOGIC: unable to assess Right IJ taken out RT PICC Line clean Labs Lab Laboratory Tests Test 03/06/21 12:17 03/06/21 18:31 03/06/21 23:33 03/07/21 05:30 Glucose (Fingerstick) 214 mg/dL (70-99) 228 mg/dL (70-99) 239 mg/dL (70-99) White Blood Count 6.6 x10^3/uL (4.0-11.0) Red Blood Count 3.43 x10^6/uL (4.30-5.70) Hemoglobin 10.3 g/dL (13.0-17.5) Hematocrit 30.8 % (39.0-53.0) Mean Corpuscular Volume 90 fL (79-100) Mean Corpuscular Hemoglobin 30 pg (25-35) Mean Corpuscular Hemoglobin Concent 33 g/dL (31-37) Red Cell Distribution Width 13.7 % (11.5-14.5) Platelet Count 181 x10^3/uL (140-400) Sodium Level 137 mmol/L (136-145) Potassium Level 4.4 mmol/L (3.5-5.1) Chloride Level 102 mmol/L (98-107) Carbon Dioxide Level 29 mmol/L (21-32) Anion Gap 6 (6-14) Blood Urea Nitrogen 20 mg/dL (8-26) Creatinine 0.7 mg/dL (0.7-1.3) Estimated GFR (Cockcroft-Gault) 139.2 BUN/Creatinine Ratio 29 (6-20) Glucose Level 244 mg/dL (70-99) Calcium Level 9.2 mg/dL (8.5-10.1) Phosphorus Level 4.5 mg/dL (2.6-4.7) Magnesium Level 1.8 mg/dL (1.8-2.4) Total Bilirubin 0.5 mg/dL (0.2-1.0) Aspartate Amino Transf (AST/SGOT) 27 U/L (15-37) Alanine Aminotransferase (ALT/SGPT) 58 U/L (16-63) Alkaline Phosphatase 120 U/L (46-116) Total Protein 6.5 g/dL (6.4-8.2) Albumin 2.3 g/dL (3.4-5.0) Albumin/Globulin Ratio 0.5 (1.0-1.7) Test 03/07/21 05:31 Glucose (Fingerstick) 215 mg/dL (70-99) Micro Respiratory culture negative Objective Assessment IMPRESSION: 1. Fever. 2. Suspected aspiration. 3. Encephalopathy. 4. Intracranial bleed with mass effect, status post craniotomy and hematoma evacuation. 5. Respiratory failure. 6. Hypertension. 7. Chronic obstructive pulmonary disease. Plan Plan of Care cont Zosyn Zyvox Monitor labs and cults cont supportive care Prognosis remains very poor Neurology following Discussed with nursing staff JANE DELGADO MD Mar 07, 2021 07:12
--- NOTE | 2021-03-07 08:42 | PDOC ---
PROGRESS NOTES Date of Service: DATE: 03/07/21 TIME: 08:41 Chief Complaint Chief Complaint Respiratory failure requiring intubation Status post tracheostomy INTERNAL COMMUNICATIONS INTERN hemorrhage Status post craniotomy 02/09/2021 Obesity Aspiration Hypertension COPD Acute kidney injury Severe malnutrition History of Present Illness History of Present Illness 03/07/2021 Slight interval decrease in the attenuation of an acute to subacute intraparenchymal hemorrhage centered within the posterior right cerebral hemisphere due to evolving blood products. There is fairly stable surrounding edema and effacement of the posterior right lateral ventricle, favoring hemorrhagic transformation of a subacute infarction. Stable suspected hemorrhagic infarction within the left frontal lobe and stable small amount of acute subarachnoid hemorrhage along the cerebral convexities. There is also a stable small amount of intraventricular hemorrhage. There is no convincing obstructive hydrocephalus. remains on vent PS 10 and 40% family wants all measures and transfer to long-term acute care.// will need a tracheostomy and PEG Patient seen and examined in the ICU Interval development of a left frontal hypodensity concerning for subacute infarct. intubated but on spontaneous respirations 10 of pressure support with 40% FiO2 TPN hanging Moore to bedside drainage Sedated with propofol fentanyl and Dex Discussed with RN Chart reviewed remains critically ill Discontinue antibiotics 03-07 33 min cc time 03/06/2021 family wants all measures and transfer to long-term acute care.// will need a tracheostomy and PEG Patient seen and examined in the ICU Interval development of a left frontal hypodensity concerning for subacute infarct. intubated but on spontaneous respirations 10 of pressure support with 40% FiO2 considering starting OG feeds but still currently has TPN hanging Moore to bedside drainage Sedated with propofol fentanyl and Dex Discussed with RN Chart reviewed remains critically ill 33 min cc time 03/05/2021 Patient seen and examined in the ICU He is still intubated but on spontaneous respirations 10 of pressure support with 40% FiO2 We are considering starting OG feeds today but still currently has TPN hanging Moore to bedside drainage Sedated with propofol fentanyl and Dex Discussed with RN Chart reviewed He remains critically ill 03/04/2021 Patient seen and examined in the ICU He is currently on spontaneous respirations via tracheostomy with pressure support of 10 Discussed with RN Chart reviewed Patient still has TPN running but we are going to try to change that to OG feeds later today Sedated with fentanyl propofol and Precedex SCDs in place Moore to bedside drainage Remains critically ill 03/03/2021 Patient seen and examined in the ICU He has a clean dry intact tracheostomy Currently on spontaneous respirations with 10 of pressure support 40% FiO2 Discussed with RN Chart reviewed Has TPN hanging Sedated with fentanyl propofol and Precedex OG feeds are to suction SCDs in place Moore to bedside drainage He remains critically ill 03/02/2021 Patient seen and examined in the ICU We just changed him over to spontaneous respirations with 10 of pressure support and 40% FiO2 Discussed with RN and respiratory therapy He has been able to be on spontaneous respirations during the daytime for the past 3 days but we have placed him back on assist-control at nighttime Trach is clean and in tact Has Moore to bedside drainage SCDs in place OG is to suction Has IV TPN Has IV Zyvox Sedated with Precedex and propofol 03/01/2021 Patient seen and examined in the ICU He remains mechanically ventilated AC/16/500/40 5% with 5 of PEEP trach appears clean dry and intact He is a Moore bedside drainage Sedated with fentanyl and propofol Has TPN hanging Discussed with RN Discussed with case management Chart reviewed He remains very critically ill 02/28/2021 Patient seen and examined in the ICU He remains mechanically ventilated Has a tracheostomy in place Vent settings as follows AC/16/500/45/5 of PEEP Has SCDs in place Moore is to bedside drainage Sedated with Precedex fentanyl and propofol Has IV TPN Chart reviewed Discussed with RN He remains critically 02/27/2021 Patient seen and examined in the ICU He remains mechanically ventilated AC/16/500/40 5% with 5 of PEEP Has tracheostomy in place Has TPN running SCDs are in place Moore to bedside drainage Sedated with fentanyl and propofol Discussed with RN Chart reviewed He remains critically 02/26/2021: Low-grade fever overnight (99.6 F). On vent with FiO2 40%, PEEP 5. S/p tracheostomy 02/23. Per RN, some hypertension overnight (systolic BP 203) requiring IV nicardipine, but this has been titrated down and now able to resume as needed hydralazine. Recommend keep nicardipine on standby to maintain blood pressure <150/90 mmHg. Continue TPN but will likely need PEG tube and eventually long-term acute care. Due to low-grade fever, lines are being changed. Continue Zosyn and Zyvox, per ID. Critical care time 30 minutes spent reviewing charts, reviewing imaging, reviewing labs, and discussion with RN. 02/25/2021: Remains on vent with FiO2 40%, PEEP 5. Afebrile. Plan for follow-up CT head on Saturday. Continue Zosyn, per ID. Blood glucose well controlled. Critical care time 30 minutes spent reviewing charts, reviewing imaging, reviewing labs, and discussion with RN. 02/24/2021: Afebrile. Had tracheostomy performed yesterday. On vent with FiO2 40%, PEEP 5. Continue antibiotics, per ID. Critical care time 30 minutes revie wing labs, reviewing imaging, reviewing charts, discussed with RN. 02/23/2021: Patient remains intubated in ICU, FiO2 40%, PEEP 5. I believe plan is for trach today. Continue daptomycin, Zosyn, and Zyvox, per ID. Critical care time 30 minutes spent reviewing charts, reviewing labs, reviewing imaging, discussion with RN. 02/22/2011: Patient ange intubated in ICU. Febrile today, T-max 100.3. FiO2 40, PEEP 5. Continue treatment with Zosyn, per ID. Continue to wean sedation as tolerated. Plan for trach tomorrow. Critical care time 30 minutes spent reviewing chart, reviewing labs, imaging, and discussion with RN. 02/21/2021: Patient remains intubated in ICU, FiO2 40%, PEEP 5. Afebrile. POD #12, s/p right occipital craniotomy with evacuation of intracerebral hematoma (02/09/21). Chest x-ray today shows improving bibasilar opacities. Continue Zosyn, per ID. Critical care time 30 minutes spent reviewing charts, reviewing labs, reviewing imaging, discussion with RN. 02/20/2021: POD #11 Right occipital craniotomy with evacuation of intracerebral hematoma (02/09/21). Remains sedated on ventilator, FiO2 40%, PEEP 5. Chest x- ray from 02/18 showed unchanged bibasilar opacities; recommending follow-up to ensure resolution, particularly of focal opacities in the right lung base. Continue Zosyn. Continue supportive care. Critical care time 30 minutes spent reviewing charts, reviewing labs, reviewing imaging, discussion with RN. 02/19/2021 POD #11 Right occipital craniotomy with evacuation of intracerebral hematoma sedated on vent Patient seen and examined at bedside Continue antibiotics per infectious disease Weaning ventilator and sedation as tolerated extubation in the next few days Plan of care discussed with bedside nurse Expected interval evolution of a right posterior temporal/occipital intraparenchymal hematoma status post decompressive craniotomy Large right temporo-occipital intraparenchymal bleed, most likely lobar hemorrhage from hypertension, consider venous sinus thrombosis, less likely in this location, aneurysmal bleed, head trauma (also unlikely). craniotomy 7/8 evening Suspect of aspiration, respiratory failure, hypertension, chronic obstructive pulmonary disease, improving acute kidney injury cont Zosyn glucose uncontrolled add Lantus 22 UNITS SQ HS elevated troponin suspect stress induced ischemia 36 MIN CC TIME 02/18/2021 POD #10 Right occipital craniotomy with evacuation of intracerebral hematoma sedated on vent Patient seen and examined at bedside Continue antibiotics per infectious disease Weaning ventilator and sedation as tolerated extubation in the next few days Plan of care discussed with bedside nurse Expected interval evolution of a right posterior temporal/occipital intraparenchymal hematoma status post decompressive craniotomy Large right temporo-occipital intraparenchymal bleed, most likely lobar hemorrhage from hypertension, consider venous sinus thrombosis, less likely in this location, aneurysmal bleed, head trauma (also unlikely). Had craniotomy 7/8 evening Suspect of aspiration, respiratory failure, hypertension, chronic obstructive pulmonary disease, improving acute kidney injury cont Zosyn glucose uncontrolled add Lantus 22 UNITS SQ HS 34 MIN CC TIME 02/17/2021 POD #8 Right occipital craniotomy with evacuation of intracerebral hematoma sedated on vent Patient seen and examined at bedside Good response to IV Lasix Continue antibiotics per infectious disease Weaning ventilator and sedation as tolerated extubation in the next few days Plan of care discussed with bedside nurse Expected interval evolution of a right posterior temporal/occipital intraparenchymal hematoma status post decompressive craniotomy Large right temporo-occipital intraparenchymal bleed, most likely lobar hemorrhage from hypertension, consider venous sinus thrombosis, less likely in this location, aneurysmal bleed, head trauma (also unlikely). Had craniotomy 7/8 evening Suspect of aspiration, respiratory failure, hypertension, chronic obstructive pulmonary disease, improving acute kidney injury cont Zosyn glucose uncontrolled add Lantus 18 UNITS SQ HS 33 MIN CC TIME 02/16/2021 POD #7 Right occipital craniotomy with evacuation of intracerebral hematoma sedated on vent Patient seen and examined at bedside Good response to IV Lasix Continue antibiotics per infectious disease Weaning ventilator and sedation as tolerated extubation in the next few days Plan of care discussed with bedside nurse Expected interval evolution of a right posterior temporal/occipital intraparenc hymal hematoma status post decompressive craniotomy Large right temporo-occipital intraparenchymal bleed, most likely lobar hemo rrhage from hypertension, consider venous sinus thrombosis, less likely in this location, aneurysmal bleed, head trauma (also unlikely). Had craniotomy 7/ evening Suspect of aspiration, respiratory failure, hypertension, chronic obstructive pulmonary disease, improving acute kidney injury cont Zosyn glucose uncontrolled add Lantus 14 UNITS SQ HS 35 MIN CC TIME 02/15/2021 POD #6 Right occipital craniotomy with evacuation of intracerebral hematoma sedated on vent Patient seen and examined at bedside Good response to IV Lasix Continue antibiotics per infectious disease Weaning ventilator and sedation as tolerated Hopeful extubation in the next few days Plan of care discussed with bedside nurse Expected interval evolution of a right posterior temporal/occipital intraparenchymal hematoma status post decompressive craniotomy Large right temporo-occipital intraparenchymal bleed, most likely lobar hemorrhage from hypertension, consider venous sinus thrombosis, less likely in this location, aneurysmal bleed, head trauma (also unlikely). Had craniotomy 02/09 evening Suspect of aspiration, respiratory failure, hypertension, chronic obstructive pulmonary disease, improving acute kidney injury cont Zosyn glucose uncontrolled add Lantus 35 MIN CC TIME 02/14/2021 POD #5 Right occipital craniotomy with evacuation of intracerebral hematoma sedated on vent Patient seen and examined at bedside Good response to IV Lasix Continue antibiotics per infectious disease Weaning ventilator and sedation as tolerated Hopeful extubation in the next few days Plan of care discussed with bedside nurse Expected interval evolution of a right posterior temporal/occipital intraparenchymal hematoma status post decompressive craniotomy Large right temporo-occipital intraparenchymal bleed, most likely lobar hemorrhage from hypertension, consider venous sinus thrombosis, less likely in this location, aneurysmal bleed, head trauma (also unlikely). Had craniotomy / evening Suspect of aspiration, respiratory failure, hypertension, chronic obstructive pulmonary disease, improving acute kidney injury cont Zosyn glucose uncontrolled add Lantus 35 MIN CC TIME 02/13/2021 POD #4 Right occipital craniotomy with evacuation of intracerebral hematoma sedated on vent Patient seen and examined at bedside Good response to IV Lasix Continue antibiotics per infectious disease Weaning ventilator and sedation as tolerated Hopeful extubation in the next few days Plan of care discussed with bedside nurse Expected interval evolution of a right posterior temporal/occipital intraparenchymal hematoma status post decompressive craniotomy Large right temporo-occipital intraparenchymal bleed, most likely lobar hemorrhage from hypertension, consider venous sinus thrombosis, less likely in this location, aneurysmal bleed, head trauma (also unlikely). Had craniotomy 02/09 evening Suspect of aspiration, respiratory failure, hypertension, chronic obstructive pulmonary disease, improving acute kidney injury cont Zosyn 35 MIN CC TIME 02/12/2021 Patient seen and examined at bedside Remains intubated and sedated Good response to IV Lasix yesterday had nearly 3 L out; will diurese again today Continue antibiotics per infectious disease Weaning ventilator and sedation as tolerated Hopeful extubation in the next few days Plan of care discussed with bedside nurse 02/11/2021 Patient seen and examined at bedside No major clinical changes overnight however this morning patient has largely increased amount of secretions Chest x-ray concerning for possible pneumonia, will consult ID who recommended starting Zosyn Otherwise he remains intubated and sedated We will follow subspecialist input Plan discussed with bedside RN 02/10/2021 Patient seen and examined at bedside Underwent craniotomy yesterday due to unresponsiveness in the late afternoon; was also intubated Continues to have a poor neurologic status Neurology and neurosurgery following Discussed plan of care with bedside nurse Patient is a 61-year-old male transferred for to the ICU overnight due to hypert ensive emergency and intracranial hemorrhage. Patient's mother at bedside provides most the history. She reports that patient had been in his usual state of health until yesterday morning when he reported feeling tired and having a headache. Patient mother reports he normally gets up early and goes outside however this was not the case yesterday. With this headache he took BC powder and went back to bed. Patient's mother reports that he was in and out of bed throughout most of the afternoon. Says patient did not eat anything yesterday which is very unusual for him. Approximately 1130 last night she had the patient get up to go to the bathroom and heard him fall. He however is able to get up and returned to bed; unknown if he hit his head at this time. Patient again woke up around 2 AM and woke up his mother asking for orange juice and then proceeded to fall again, she does not think he hit his head at this time. He was taken to hospital and found to have a systolic blood pressure greater than [address] scan found to have an intracranial hemorrhage. Due to severity of his condition he was transferred here. Patient's mother reports she is not aware of any past medical history other than hypertension which he intermittently takes hydrochlorothiazide for. Vitals Vitals Vital Signs Date Time Temp Pulse Resp B/P (MAP) Pulse Ox O2 Delivery O2 Flow Rate FiO2 03/07/21 08:00 97.8 54 12 120/80 (93) 98 Ventilator 97.8 Physical Exam Physical Exam GENERAL: Sedated on vent, patient is not following commands HEENT: no icterus,NGT + NECK trach present LUNGS: Decreased breath sound at bases HEART: S1, S2 bradycardia ABDOMEN: Soft, nontender, mildly distended EXTREMITIES: + edema, no cyanosis. SKIN:no gen rash NEUROLOGIC: unable to assess Right IJ taken out RT PICC Line clean General: Alert, Other (sedated on vent, trach) Heart: Regular rate Lungs: Clear Abdomen: Normal bowel sounds Extremities: No clubbing, No edema Skin: Other (Erik removed, dressing changed) Labs LABS PATIENT: COOPER CHAVEZ ACCOUNT: [id number] : 1960 LOCATION: [facility] ICU AGE: 61 SEX: M EXAM STATUS: ADM IN ORD. PHYSICIAN: HILDA ROCK ACUTE CARE ASSISTANT REASON: f/u ICH, Crani 7-8 PT ON A VENT, RN TO CALL WHEN READY PROCEDURE: CT HEAD WO CONTRAST EXAM: Head CT without contrast. HISTORY: Intracranial hemorrhage follow-up. TECHNIQUE: Computed tomographic images of the head were obtained without contrast. *One or more of the following individualized dose reduction techniques were utilized for this examination: 1. Automated exposure control. 2. Adjustment of the mA and/or kV according to patient size. 3. Use of iterative reconstruction technique. COMPARISON: 02/27/2021. FINDINGS: There has been slight interval decrease in the attenuation of an acute to subacute intraparenchymal hemorrhage centered within the right parietal, occipital and posterior temporal lobes measuring approximately 7 cm in maximum dimension with surrounding edema favoring an infarct with hemorrhagic transformation. There is stable effacement of the posterior right lateral ventricle. There is no significant midline shift. There is also an acute to subacute suspected infarct with hemorrhagic transformation within the left frontal lobe measuring approximately 4.0 cm, similar compared to the prior study. There is a stable small amount of subarachnoid blood along the cerebral convexities near the vertex. There is also a stable small amount of intraventricular hemorrhage within the dependent portion of the left lateral ventricle. There is no hydrocephalus. There are cerebral white matter changes due to chronic small vessel disease. There is cerebral volume loss. There are stable right craniotomy changes. There has been interval decrease in overlying soft tissue swelling and removal of skin erik. There is fluid throughout the mastoid air cells. There is a tiny left maxillary sinus air-fluid level. There is a right maxillary sinus mucous retention cyst. There is a nasogastric tube partially included on the [id number]. There is posterior nasopharyngeal soft tissue edema likely due to tube positioning. IMPRESSION: 1. Slight interval decrease in the attenuation of an acute to subacute intraparenchymal hemorrhage centered within the posterior right cerebral hemisphere due to evolving blood products. There is fairly stable surrounding edema and effacement of the posterior right lateral ventricle, favoring hemorrhagic transformation of a subacute infarction. 2. Stable suspected hemorrhagic infarction within the left frontal lobe and stable small amount of acute subarachnoid hemorrhage along the cerebral convexities. There is also a stable small amount of intraventricular hemorrhage. There is no convincing obstructive hydrocephalus. 3. Cerebral cerebral white matter due to chronic small vessel disease and cerebral volume loss, advanced for patient age. Electronically signed by: Izzy Goodwin MD (03/07/2021 11:17 AM) [id number] DICTATED and SIGNED BY: IZZY GOODWIN MD DATE: 03/07/21 [id number] PATIENT: COOPER CHAVEZ ACCOUNT: [id number] : 1960 LOCATION: [address] [place] [address] AGE: 61 SEX: M EXAM STATUS: ADM IN ORD. PHYSICIAN: HILDA ROCK APRN REASON: f/u ICH, Crani 7-8 PT ON A VENT, RN TO CALL WHEN READY PROCEDURE: CT HEAD WO CONTRAST EXAM: Head CT without contrast. HISTORY: Intracranial hemorrhage follow-up. TECHNIQUE: Computed tomographic images of the head were obtained without contrast. *One or more of the following individualized dose reduction techniques were utilized for this examination: 1. Automated exposure control. 2. Adjustment of the mA and/or kV according to patient size. 3. Use of iterative reconstruction technique. COMPARISON: 02/27/2021. FINDINGS: There has been slight interval decrease in the attenuation of an acute to subacute intraparenchymal hemorrhage centered within the right parietal, occipital and posterior temporal lobes measuring approximately 7 cm in maximum dimension with surrounding edema favoring an infarct with hemorrhagic transformation. There is stable effacement of the posterior right lateral ventricle. There is no significant midline shift. There is also an acute to subacute suspected infarct with hemorrhagic transformation within the left frontal lobe measuring approximately 4.0 cm, similar compared to the prior study. There is a stable small amount of subarachnoid blood along the cerebral convexities near the vertex. There is also a stable small amount of intraventricular hemorrhage within the dependent portion of the left lateral ventricle. There is no hydrocephalus. There are cerebral white matter changes due to chronic small vessel disease. There is cerebral volume loss. There are stable right craniotomy changes. There has been interval decrease in overlying soft tissue swelling and removal of skin erik. There is fluid throughout the mastoid air cells. There is a tiny left maxillary sinus air-fluid level. There is a right maxillary sinus mucous retention cyst. There is a nasogastric tube partially included on the [id number]. There is posterior nasopharyngeal soft tissue edema likely due to tube positioning. IMPRESSION: 1. Slight interval decrease in the attenuation of an acute to subacute int raparenchymal hemorrhage centered within the posterior right cerebral hemisphere due to evolving blood products. There is fairly stable surrounding edema and effacement of the posterior right lateral ventricle, favoring hemorrhagic transformation of a subacute infarction. 2. Stable suspected hemorrhagic infarction within the left frontal lobe and stable small amount of acute subarachnoid hemorrhage along the cerebral convexities. There is also a stable small amount of intraventricular hemorrhage. There is no convincing obstructive hydrocephalus. 3. Cerebral cerebral white matter due to chronic small vessel disease and cerebral volume loss, advanced for patient age. Electronically signed by: Izzy Goodwin MD (03/07/2021 11:17 AM) [id number] DICTATED and SIGNED BY: IZZY GOODWIN MD DATE: 03/07/21 [id number] PATIENT: COOPER CHAVEZ ACCOUNT: [id number] : 1960 LOCATION: [address] [place] [address] AGE: 61 SEX: M EXAM STATUS: ADM IN ORD. PHYSICIAN: LESLI ALCOCER MD REASON: pneumonia PROCEDURE: CHEST AP ONLY EXAM: Chest, single view. HISTORY: Pneumonia. COMPARISON: 02/26/2021 FINDINGS: A frontal view of the chest is obtained. There is a tracheostomy device overlying the mid trachea. There is a nasogastric tube within the stomach. There is a right PICC with the tip in the superior vena cava. There is bullous emphysema involving the right upper thorax. There is stable diffuse lower lobe predominant interstitial infiltrate and suspected small pleural effusions. There is a stable cardiac silhouette. IMPRESSION: 1. Stable bilateral lower lobe predominant interstitial infiltrate with suspected small pleural effusions. 2. Stable right apical predominant bullous emphysema. 3. Stable support lines and tubes. Electronically signed by: Izzy Goodwin MD (03/06/2021 3:26 PM) [id number] DICTATED and SIGNED BY: IZZY GOODWIN MD DATE: 03/06/21 [id number] Laboratory Tests Test 03/06/21 12:17 03/06/21 18:31 03/06/21 23:33 03/07/21 05:30 Glucose (Fingerstick) 214 mg/dL (70-99) 228 mg/dL (70-99) 239 mg/dL (70-99) White Blood Count 6.6 x10^3/uL (4.0-11.0) Red Blood Count 3.43 x10^6/uL (4.30-5.70) Hemoglobin 10.3 g/dL (13.0-17.5) Hematocrit 30.8 % (39.0-53.0) Mean Corpuscular Volume 90 fL (79-100) Mean Corpuscular Hemoglobin 30 pg (25-35) Mean Corpuscular Hemoglobin Concent 33 g/dL (31-37) Red Cell Distribution Width 13.7 % (11.5-14.5) Platelet Count 181 x10^3/uL (140-400) Sodium Level 137 mmol/L (136-145) Potassium Level 4.4 mmol/L (3.5-5.1) Chloride Level 102 mmol/L (98-107) Carbon Dioxide Level 29 mmol/L (21-32) Anion Gap 6 (6-14) Blood Urea Nitrogen 20 mg/dL (8-26) Creatinine 0.7 mg/dL (0.7-1.3) Estimated GFR (Cockcroft-Gault) 139.2 BUN/Creatinine Ratio 29 (6-20) Glucose Level 244 mg/dL (70-99) Calcium Level 9.2 mg/dL (8.5-10.1) Phosphorus Level 4.5 mg/dL (2.6-4.7) Magnesium Level 1.8 mg/dL (1.8-2.4) Total Bilirubin 0.5 mg/dL (0.2-1.0) Aspartate Amino Transf (AST/SGOT) 27 U/L (15-37) Alanine Aminotransferase (ALT/SGPT) 58 U/L (16-63) Alkaline Phosphatase 120 U/L (46-116) Total Protein 6.5 g/dL (6.4-8.2) Albumin 2.3 g/dL (3.4-5.0) Albumin/Globulin Ratio 0.5 (1.0-1.7) Test 03/07/21 05:31 Glucose (Fingerstick) 215 mg/dL (70-99) Comment Review of Relevant I have reviewed the following items neela (where applicable) has been applied. Labs Laboratory Tests Test 03/05/21 12:34 03/05/21 23:26 03/06/21 05:29 03/06/21 05:30 Glucose (Fingerstick) 210 mg/dL (70-99) 241 mg/dL (70-99) 220 mg/dL (70-99) White Blood Count 6.8 x10^3/uL (4.0-11.0) Red Blood Count 3.58 x10^6/uL (4.30-5.70) Hemoglobin 10.8 g/dL (13.0-17.5) Hematocrit 32.6 % (39.0-53.0) Mean Corpuscular Volume 91 fL (79-100) Mean Corpuscular Hemoglobin 30 pg (25-35) Mean Corpuscular Hemoglobin Concent 33 g/dL (31-37) Red Cell Distribution Width 13.7 % (11.5-14.5) Platelet Count 197 x10^3/uL (140-400) Neutrophils (%) (Auto) 61 % (31-73) Lymphocytes (%) (Auto) 24 % (24-48) Monocytes (%) (Auto) 11 % (0-9) Eosinophils (%) (Auto) 3 % (0-3) Basophils (%) (Auto) 1 % (0-3) Neutrophils # (Auto) 4.1 x10^3/uL (1.8-7.7) Lymphocytes # (Auto) 1.7 x10^3/uL (1.0-4.8) Monocytes # (Auto) 0.7 x10^3/uL (0.0-1.1) Eosinophils # (Auto) 0.2 x10^3/uL (0.0-0.7) Basophils # (Auto) 0.0 x10^3/uL (0.0-0.2) Sodium Level 134 mmol/L (136-145) Potassium Level 4.3 mmol/L (3.5-5.1) Chloride Level 99 mmol/L (98-107) Carbon Dioxide Level 31 mmol/L (21-32) Anion Gap 4 (6-14) Blood Urea Nitrogen 19 mg/dL (8-26) Creatinine 0.8 mg/dL (0.7-1.3) Estimated GFR (Cockcroft-Gault) 119.3 Glucose Level 218 mg/dL (70-99) Calcium Level 9.0 mg/dL (8.5-10.1) Phosphorus Level 4.4 mg/dL (2.6-4.7) Magnesium Level 1.9 mg/dL (1.8-2.4) Triglycerides Level 251 mg/dL (0-150) Test 03/06/21 12:17 03/06/21 18:31 03/06/21 23:33 03/07/21 05:30 Glucose (Fingerstick) 214 mg/dL (70-99) 228 mg/dL (70-99) 239 mg/dL (70-99) White Blood Count 6.6 x10^3/uL (4.0-11.0) Red Blood Count 3.43 x10^6/uL (4.30-5.70) Hemoglobin 10.3 g/dL (13.0-17.5) Hematocrit 30.8 % (39.0-53.0) Mean Corpuscular Volume 90 fL (79-100) Mean Corpuscular Hemoglobin 30 pg (25-35) Mean Corpuscular Hemoglobin Concent 33 g/dL (31-37) Red Cell Distribution Width 13.7 % (11.5-14.5) Platelet Count 181 x10^3/uL (140-400) Sodium Level 137 mmol/L (136-145) Potassium Level 4.4 mmol/L (3.5-5.1) Chloride Level 102 mmol/L (98-107) Carbon Dioxide Level 29 mmol/L (21-32) Anion Gap 6 (6-14) Blood Urea Nitrogen 20 mg/dL (8-26) Creatinine 0.7 mg/dL (0.7-1.3) Estimated GFR (Cockcroft-Gault) 139.2 BUN/Creatinine Ratio 29 (6-20) Glucose Level 244 mg/dL (70-99) Calcium Level 9.2 mg/dL (8.5-10.1) Phosphorus Level 4.5 mg/dL (2.6-4.7) Magnesium Level 1.8 mg/dL (1.8-2.4) Total Bilirubin 0.5 mg/dL (0.2-1.0) Aspartate Amino Transf (AST/SGOT) 27 U/L (15-37) Alanine Aminotransferase (ALT/SGPT) 58 U/L (16-63) Alkaline Phosphatase 120 U/L (46-116) Total Protein 6.5 g/dL (6.4-8.2) Albumin 2.3 g/dL (3.4-5.0) Albumin/Globulin Ratio 0.5 (1.0-1.7) Test 03/07/21 05:31 Glucose (Fingerstick) 215 mg/dL (70-99) Laboratory Tests Test 03/06/21 12:17 03/06/21 18:31 03/06/21 23:33 03/07/21 05:30 Glucose (Fingerstick) 214 mg/dL (70-99) 228 mg/dL (70-99) 239 mg/dL (70-99) White Blood Count 6.6 x10^3/uL (4.0-11.0) Red Blood Count 3.43 x10^6/uL (4.30-5.70) Hemoglobin 10.3 g/dL (13.0-17.5) Hematocrit 30.8 % (39.0-53.0) Mean Corpuscular Volume 90 fL (79-100) Mean Corpuscular Hemoglobin 30 pg (25-35) Mean Corpuscular Hemoglobin Concent 33 g/dL (31-37) Red Cell Distribution Width 13.7 % (11.5-14.5) Platelet Count 181 x10^3/uL (140-400) Sodium Level 137 mmol/L (136-145) Potassium Level 4.4 mmol/L (3.5-5.1) Chloride Level 102 mmol/L (98-107) Carbon Dioxide Level 29 mmol/L (21-32) Anion Gap 6 (6-14) Blood Urea Nitrogen 20 mg/dL (8-26) Creatinine 0.7 mg/dL (0.7-1.3) Estimated GFR (Cockcroft-Gault) 139.2 BUN/Creatinine Ratio 29 (6-20) Glucose Level 244 mg/dL (70-99) Calcium Level 9.2 mg/dL (8.5-10.1) Phosphorus Level 4.5 mg/dL (2.6-4.7) Magnesium Level 1.8 mg/dL (1.8-2.4) Total Bilirubin 0.5 mg/dL (0.2-1.0) Aspartate Amino Transf (AST/SGOT) 27 U/L (15-37) Alanine Aminotransferase (ALT/SGPT) 58 U/L (16-63) Alkaline Phosphatase 120 U/L (46-116) Total Protein 6.5 g/dL (6.4-8.2) Albumin 2.3 g/dL (3.4-5.0) Albumin/Globulin Ratio 0.5 (1.0-1.7) Test 03/07/21 05:31 Glucose (Fingerstick) 215 mg/dL (70-99) Microbiology 02/23/21 Gram Stain - Final, Complete 02/23/21 Aerobic Culture - Final, Complete 02/22/21 Blood Culture - Final, Complete NO GROWTH AFTER 5 DAYS 02/22/21 Gram Stain Evaluation - Final, Complete 02/22/21 Respiratory Culture - Final, Complete Medications Current Medications Nicardipine HCl 50 mg/Sodium Chloride 250 ml @ 12.5 mls/hr CONT PRN IV SEE I/O RECORD Last administered on 02/26/21at 01:20; Start 02/09/21 at 06:15 Labetalol HCl (Normodyne Iv Push) 10 mg PRN Q2HR PRN IVP HYPERTENSION- 1ST CHOICE Last administered on 03/04/21at 02:56; Start 02/09/21 at 06:15 Lorazepam (Ativan Inj) 2 mg 1X ONCE IVP Last administered on 02/09/21at 10:54; Start 02/09/21 at 10:45; Stop 02/09/21 at 10:46; Status DC Lorazepam (Ativan Inj) 2 mg 1X ONCE IVP Last administered on 02/09/21at 11:00; Start 02/09/21 at 11:00; Stop 02/09/21 at 11:01; Status DC Fentanyl Citrate (Fentanyl 2ml Vial) 25 mcg PRN Q2HR PRN IVP MODERATE TO SEVERE PAIN Last administered on 02/09/21at 13:37; Start 02/09/21 at 13:30; Stop 02/18/21 at 22:53; Status DC Info (Review Meds) 1 ea PRN 1X PRN MC SEE COMMENTS; Start 02/09/21 at 15:00 Acetaminophen (Tylenol Supp) 650 mg PRN Q6HRS PRN [place] FEVER > 100.5'F or 38'C; Start 02/09/21 at 15:00; Stop 02/11/21 at 21:12; Status DC Albuterol Sulfate (Ventolin Neb Soln) 2.5 mg PRN Q4HRS PRN NEB SHORTNESS OF BREATH; Start 02/09/21 at 15:15 Iohexol (Omnipaque 350 Mg/ml) 75 ml 1X ONCE IV Last administered on 02/09/21at 15:52; Start 02/09/21 at 15:30; Stop 02/09/21 at 15:35; Status DC Iohexol (Omnipaque 350 Mg/ml) 100 ml STK-MED ONCE .ROUTE ; Start 02/09/21 at 15:26; Stop 02/09/21 at 15:27; Status DC Info (CONTRAST GIVEN -- Rx MONITORING) 1 each PRN DAILY PRN MC SEE COMMENTS; Start 02/09/21 at 15:45; Stop 02/11/21 at 15:44; Status DC Propofol 100 ml @ As Directed STK-MED ONCE IV ; Start 02/09/21 at 15:51; Stop 02/09/21 at 15:51; Status DC Rocuronium Olean (Zemuron) 50 mg STK-MED ONCE .ROUTE ; Start 02/09/21 at 15:51; Stop 02/09/21 at 15:51; Status DC Lidocaine HCl (Lidocaine HCl 2% Abboject) 100 mg STK-MED ONCE .ROUTE ; Start 02/09/21 at 15:52; Stop 02/09/21 at 15:53; Status DC Propofol 100 ml @ 3.507 mls/ hr CONT PRN IV PER PROTOCOL Last administered on 03/07/21at 06:22; Start 02/09/21 at 16:15 Lidocaine HCl (Lidocaine HCl 2% Abboject) 100 mg 1X ONCE IV Last administered on 02/09/21at 16:17; Start 02/09/21 at 16:15; Stop 02/09/21 at 16:17; Status DC Rocuronium Olean (Zemuron) 50 mg 1X ONCE IV Last administered on 02/09/21at 16:17; Start 02/09/21 at 16:15; Stop 02/09/21 at 16:17; Status DC Rocuronium Olean (Zemuron) 100 mg STK-MED ONCE .ROUTE ; Start 02/09/21 at 16:31; Stop 02/09/21 at 16:32; Status DC Gelatin (Gelfoam Size 100) 1 each STK-MED ONCE .ROUTE Last administered on 02/09/21at 17:49; Start 02/09/21 at 16:33; Stop 02/09/21 at 16:33; Status DC Bupivacaine HCl/ Epinephrine Bitart (Sensorcain-Epi 0.5%-1:067600 Mpf) 30 ml STK-MED ONCE .ROUTE Last administered on 02/09/21at 17:49; Start 02/09/21 at 16:33; Stop 02/09/21 at 16:33; Status DC Cellulose (Surgicel Hemostat 4x8) 1 each STK-MED ONCE .ROUTE Last administered on 02/09/21at 18:38; Start 02/09/21 at 16:33; Stop 02/09/21 at 16:33; Status DC Thrombin 20,000 unit STK-MED ONCE TP Last administered on 02/09/21at 17:49; Start 02/09/21 at 16:33; Stop 02/09/21 at 16:33; Status DC Fentanyl Citrate (Fentanyl 2ml Vial) 75 mcg 1X ONCE IVP Last administered on 02/09/21at 16:45; Start 02/09/21 at 16:45; Stop 02/09/21 at 16:47; Status DC Propofol (Diprivan) 200 mg 1X ONCE IV ; Start 02/09/21 at 17:15; Stop 02/09/21 at 17:16; Status DC Lidocaine HCl (Lidocaine HCl 2% Abboject) 100 mg 1X ONCE IV ; Start 02/09/21 at 17:15; Stop 02/09/21 at 17:16; Status DC Rocuronium Olean (Zemuron) 50 mg 1X ONCE IV ; Start 02/09/21 at 17:15; Stop 02/09/21 at 17:16; Status DC Propofol 100 ml @ 0 mls/hr CONT PRN PRN IV SEDATION; Start 02/09/21 at 17:15; Stop 02/10/21 at 05:14; Status DC Cefazolin Sodium (Ancef) 1 gm STK-MED ONCE IVP ; Start 02/09/21 at 17:28; Stop 02/09/21 at 17:28; Status DC Fentanyl Citrate (Fentanyl 2ml Vial) 100 mcg STK-MED ONCE .ROUTE ; Start 02/09/21 at 17:43; Stop 02/09/21 at 17:43; Status DC Rocuronium Olean (Zemuron) 100 mg STK-MED ONCE .ROUTE ; Start 02/09/21 at 17:58; Stop 02/09/21 at 17:59; Status DC Vecuronium Olean (Norcuron Bolus) 10 mg STK-MED ONCE IV ; Start 02/09/21 at 18:49; Stop 02/09/21 at 18:50; Status DC Sodium Chloride (SODIUM CHLORIDE 20ml) 20 ml STK-MED ONCE IJ ; Start 02/09/21 at 18:50; Stop 02/09/21 at 18:50; Status DC Sevoflurane (Ultane) 90 ml STK-MED ONCE IH ; Start 02/09/21 at 19:20; Stop 02/09/21 at 19:21; Status DC Fentanyl Citrate 30 ml @ 2.5 mls/hr CONT PRN IV SEE PROTOCOL Last administered on 02/09/21at 23:40; Start 02/09/21 at 23:15; Stop 02/10/21 at 04:43; Status DC Fentanyl Citrate 55 ml @ 0 mls/hr CONT PRN IV SEE I/O Last administered on 03/06/21at 16:38; Start 02/10/21 at 05:00 Potassium Chloride/Dextrose/ Sod Cl 1,000 ml @ 80 mls/hr [id number] IV ; Start 02/10/21 at 09:00; Stop 02/10/21 at 13:21; Status DC Pantoprazole Sodium (PROTONIX VIAL for IV PUSH) 40 mg DAILYAC IVP Last administered on 03/06/21at 08:58; Start 02/10/21 at 09:00 Lidocaine HCl (Buffered Lidocaine 1%) 3 ml STK-MED ONCE .ROUTE ; Start 02/10/21 at 13:18; Stop 02/10/21 at 13:18; Status DC Sodium Chloride 1,000 ml @ 80 mls/hr [id number] IV Last administered on 02/12/21at 03:00; Start 02/10/21 at 13:30; Stop 02/12/21 at 15:36; Status DC Lidocaine HCl (Buffered Lidocaine 1%) 6 ml 1X ONCE INJ Last administered on 02/10/21at 13:57; Start 02/10/21 at 13:45; Stop 02/10/21 at 13:46; Status DC Potassium Chloride/Water 100 ml @ 100 mls/hr Q1H IV Last administered on 02/11/21at 10:07; Start 02/11/21 at 08:00; Stop 02/11/21 at 09:59; Status DC Piperacillin Sod/ Tazobactam Sod 3.375 gm/Sodium Chloride 50 ml @ 100 mls/hr Q6HRS IV Last administered on 03/07/21at 05:35; Start 02/11/21 at 09:00 Info (Tpn Per Pharmacy) 1 each PRN DAILY PRN MC SEE COMMENTS Last administered on 03/06/21at 14:47; Start 02/11/21 at 11:15 Sodium Chloride 90 meq/Potassium Chloride 50 meq/ Potassium Phosphate 13.6 mmol/Magnesium Sulfate 10 meq/ Calcium Gluconate 10 meq/ Multivitamins 5 ml/Zinc/Copper/ Manganese/ Selenium 1 ml/ Total Parenteral Nutrition/Amino Acids/Dextrose 1,512 ml @ 63 mls/hr TPN CONT IV Last administered on 02/11/21at 22:32; Start 02/11/21 at 22:00; Stop 02/12/21 at 21:59; Status DC Furosemide (Lasix) 20 mg 1X ONCE IVP Last administered on 02/11/21at 15:11; Start 02/11/21 at 15:30; Stop 02/11/21 at 15:31; Status DC Furosemide (Lasix) 20 mg 1X ONCE IVP Last administered on 02/11/21at 17:00; Start 02/11/21 at 17:00; Stop 02/11/21 at 17:01; Status DC Midazolam HCl 100 ml @ 1 mls/hr CONT PRN IV SEE PROTOCOL Last administered on 02/13/21at 20:58; Start 02/11/21 at 19:30 Acetaminophen (Tylenol Supp) 650 mg PRN Q6HRS PRN [place] MILD PAIN / TEMP > 100.3'F; Start 02/11/21 at 21:15 Sodium Chloride 80 meq/Potassium Chloride 50 meq/ Potassium Phosphate 13.6 mmol/Magnesium Sulfate 6 meq/ Calcium Gluconate 10 meq/ Multivitamins 5 ml/Zinc/Copper/ Manganese/ Selenium 1 ml/ Total Parenteral Nutrition/Amino Acids/Dextrose 1,512 ml @ 63 mls/hr TPN CONT IV Last administered on 02/12/21at 22:09; Start 02/12/21 at 22:00; Stop 02/13/21 at 21:59; Status DC Furosemide (Lasix) 40 mg 1X ONCE IVP Last administered on 02/12/21at 12:44; Start 02/12/21 at 12:30; Stop 02/12/21 at 12:31; Status DC Insulin Human Lispro (HumaLOG) 0-5 UNITS Q6HRS SQ Last administered on 03/07/21at 05:37; Start 02/12/21 at 12:00 Dextrose (Dextrose 50%-Water Syringe) 12.5 gm PRN Q15MIN PRN IV SEE COMMENTS; Start 02/12/21 at 12:15 Clonidine HCl (Catapres Tts-3) 1 patch WEEKLY TD Last administered on 03/06/21at 09:07; Start 02/13/21 at 11:00 Sodium Chloride 80 meq/Potassium Chloride 50 meq/ Potassium Phosphate 13.6 mmol/Magnesium Sulfate 6 meq/ Calcium Gluconate 10 meq/ Multivitamins 5 ml/Zinc/Copper/ Manganese/ Selenium 1 ml/ Total Parenteral Nutrition/Amino Acids/Dextrose 1,512 ml @ 63 mls/hr TPN CONT IV Last administered on 02/13/21at 21:42; Start 02/13/21 at 22:00; Stop 02/14/21 at 21:59; Status DC Potassium Acetate 50 meq/Potassium Phosphate 13.6 mmol/Magnesium Sulfate 6 meq/ Calcium Gluconate 10 meq/ Multivitamins 5 ml/Zinc/Copper/ Manganese/ Selenium 1 ml/ Total Parenteral Nutrition/Amino Acids/Dextrose 1,512 ml @ 63 mls/hr TPN CONT IV Last administered on 02/14/21at 21:59; Start 02/14/21 at 22:00; Stop 02/15/21 at 21:59; Status DC Insulin Glargine (Lantus Syringe) 10 unit QHS SQ Last administered on 02/15/21at 22:11; Start 02/14/21 at 21:00; Stop 02/16/21 at 12:42; Status DC Hydralazine HCl (Apresoline Inj) 10 mg PRN Q4HRS PRN IVP ELEVATED BP, SEE COMMENTS Last administered on 03/06/21at 15:17; Start 02/14/21 at 16:00 Potassium Acetate 50 meq/Potassium Phosphate 13.6 mmol/Magnesium Sulfate 6 meq/ Calcium Gluconate 10 meq/ Multivitamins 5 ml/Zinc/Copper/ Manganese/ Selenium 1 ml/ Total Parenteral Nutrition/Amino Acids/Dextrose 1,512 ml @ 63 mls/hr TPN CONT IV Last administered on 02/15/21at 22:13; Start 02/15/21 at 22:00; Stop 02/16/21 at 21:59; Status DC Dexmedetomidine HCl 400 mcg/ Sodium Chloride 100 ml @ 0 mls/hr CONT PRN IV PER PROTOCOL Last administered on 03/07/21at 02:45; Start 02/15/21 at 14:15 Sodium Chloride 500 ml @ 500 mls/hr 1X PRN PRN IV SEE COMMENTS; Start 02/15/21 at 14:15 Atropine Sulfate (ATROPINE 0.5mg SYRINGE) 0.5 mg PRN Q5MIN PRN IV SEE COMMENTS; Start 02/15/21 at 14:15 Potassium Acetate 50 meq/Potassium Phosphate 13.6 mmol/Magnesium Sulfate 6 meq/ Calcium Gluconate 10 meq/ Multivitamins 5 ml/Zinc/Copper/ Manganese/ Selenium 1 ml/ Total Parenteral Nutrition/Amino Acids/Dextrose 1,512 ml @ 63 mls/hr TPN CONT IV Last administered on 02/16/21at 22:59; Start 02/16/21 at 22:00; Stop 02/17/21 at 21:59; Status DC Insulin Glargine (Lantus Syringe) 14 unit QHS SQ Last administered on 02/16/21at 21:14; Start 02/16/21 at 21:00; Stop 02/17/21 at 14:15; Status DC Potassium Acetate 50 meq/Potassium Phosphate 13.6 mmol/Magnesium Sulfate 6 meq/ Calcium Gluconate 10 meq/ Multivitamins 5 ml/Zinc/Copper/ Manganese/ Selenium 1 ml/ Total Parenteral Nutrition/Amino Acids/Dextrose 1,512 ml @ 63 mls/hr TPN CONT IV Last administered on 02/17/21at 20:48; Start 02/17/21 at 22:00; Stop 02/18/21 at 21:59; Status DC Dextrose 1,000 ml @ 75 mls/hr [id number] IV Last administered on 02/18/21at 13:51; Start 02/17/21 at 10:30; Stop 02/19/21 at 12:57; Status DC Insulin Glargine (Lantus Syringe) 18 unit QHS SQ Last administered on 02/17/21at 20:46; Start 02/17/21 at 21:00; Stop 02/18/21 at 11:56; Status DC Insulin Glargine (Lantus Syringe) 22 unit QHS SQ Last administered on 02/18/21at 21:00; Start 02/18/21 at 21:00; Stop 02/19/21 at 14:08; Status DC Potassium Acetate 50 meq/Potassium Phosphate 13.6 mmol/Magnesium Sulfate 6 meq/ Calcium Gluconate 10 meq/ Multivitamins 5 ml/Zinc/Copper/ Manganese/ Selenium 1 ml/ Total Parenteral Nutrition/Amino Acids/Dextrose 1,512 ml @ 63 mls/hr TPN CONT IV Last administered on 02/18/21at 21:43; Start 02/18/21 at 22:00; Stop 02/19/21 at 21:59; Status DC Potassium Acetate 50 meq/Potassium Phosphate 13.6 mmol/Magnesium Sulfate 6 meq/ Calcium Gluconate 10 meq/ Multivitamins 5 ml/Zinc/Copper/ Manganese/ Selenium 1 ml/ Total Parenteral Nutrition/Amino Acids/Dextrose 2,040 ml @ 85 mls/hr TPN CONT IV Last administered on 02/19/21at 20:56; Start 02/19/21 at 22:00; Stop at 21:59; Status DC Insulin Glargine (Lantus Syringe) 25 unit QHS SQ Last administered on 02/20/21at 22:11; Start 02/19/21 at 21:00; Stop 02/21/21 at 10:10; Status DC Acetaminophen (Tylenol) 650 mg PRN Q6HRS PRN PEG MILD PAIN / TEMP > 100.3'F Last administered on 03/04/21at 07:39; Start 02/19/21 at 18:00 Potassium Acetate 50 meq/Potassium Phosphate 13.6 mmol/Magnesium Sulfate 6 meq/ Calcium Gluconate 10 meq/ Multivitamins 5 ml/Zinc/Copper/ Manganese/ Selenium 1 ml/ Total Parenteral Nutrition/Amino Acids/Dextrose 2,040 ml @ 85 mls/hr TPN CONT IV Last administered on 02/20/21at 22:10; Start 02/20/21 at 22:00; Stop 02/21/21 at 21:59; Status DC Insulin Glargine (Lantus Syringe) 27 unit QHS SQ Last administered on 03/01/21at 21:18; Start 02/21/21 at 21:00; Stop 03/02/21 at 13:32; Status DC Magnesium Sulfate 50 ml @ 25 mls/hr 1X ONCE IV Last administered on 02/21/21at 11:30; Start 02/21/21 at 11:00; Stop 02/21/21 at 12:59; Status DC Potassium Acetate 50 meq/Potassium Phosphate 13.6 mmol/Magnesium Sulfate 8 meq/ Calcium Gluconate 10 meq/ Multivitamins 5 ml/Zinc/Copper/ Manganese/ Selenium 1 ml/ Total Parenteral Nutrition/Amino Acids/Dextrose 2,040 ml @ 85 mls/hr TPN CONT IV Last administered on 02/21/21at 21:23; Start 02/21/21 at 22:00; Stop 02/22/21 at 21:59; Status DC Daptomycin 570 mg/ Sodium Chloride 50 ml @ 100 mls/hr Q24H IV Last administered on 02/24/21at 13:10; Start 02/22/21 at 12:00; Stop 02/25/21 at 10:34; Status DC Linezolid/Dextrose 300 ml @ 300 mls/hr Q12HR IV Last administered on 03/02/21at 08:26; Start 02/22/21 at 09:00; Stop 03/02/21 at 08:42; Status DC Potassium Acetate 50 meq/Potassium Phosphate 13.6 mmol/Magnesium Sulfate 8 meq/ Calcium Gluconate 5 meq/ Multivitamins 5 ml/Zinc/Copper/ Manganese/ Selenium 1 ml/ Total Parenteral Nutrition/Amino Acids/Dextrose 2,040 ml @ 85 mls/hr TPN CONT IV Last administered on 02/22/21at 21:32; Start 02/22/21 at 22:00; Stop 02/23/21 at 21:59; Status DC Fentanyl Citrate (Fentanyl 2ml Vial) 25 mcg PRN Q5MIN PRN IVP MILD PAIN 1-3; Start 02/23/21 at 06:00; Stop 02/24/21 at 05:59; Status DC Fentanyl Citrate (Fentanyl 2ml Vial) 50 mcg PRN Q5MIN PRN IVP MODERATE PAIN 4- 6; Start 02/23/21 at 06:00; Stop 02/24/21 at 05:59; Status DC Morphine Sulfate (Morphine Sulfate) 1 mg PRN Q10MIN PRN IVP SEVERE PAIN 7-10; Start 02/23/21 at 06:00; Stop 02/24/21 at 05:59; Status DC Ringer's Solution 1,000 ml @ 30 mls/hr Q24H IV Last administered on 02/23/21at 11:00; Start 02/23/21 at 06:00; Stop 02/23/21 at 17:59; Status DC Hydromorphone HCl (Dilaudid) 0.5 mg PRN Q10MIN PRN IVP SEVERE PAIN 7-10, 2nd CHOICE; Start 02/23/21 at 06:00; Stop 02/24/21 at 05:59; Status DC Prochlorperazine Edisylate (Compazine) 5 mg PACU PRN PRN IVP NAUSEA, MRX1; Start 02/23/21 at 06:00; Stop 02/24/21 at 05:59; Status DC Cellulose (Surgicel Fibrillar 1x2) 1 each STK-MED ONCE .ROUTE ; Start 02/23/21 at 08:23; Stop 02/23/21 at 08:23; Status DC Lidocaine/ Epinephrine (LIDOCAINE 1%-EPI 1:100,000 Multi-Dose) 20 ml STK-MED ONCE .ROUTE Last administered on 02/23/21at 13:33; Start 02/23/21 at 08:23; Stop 02/23/21 at 08:23; Status DC Potassium Acetate 50 meq/Potassium Phosphate 13.6 mmol/Magnesium Sulfate 8 meq/ Calcium Gluconate 5 meq/ Multivitamins 5 ml/Zinc/Copper/ Manganese/ Selenium 1 ml/ Total Parenteral Nutrition/Amino Acids/Dextrose 2,040 ml @ 85 mls/hr TPN CONT IV ; Start 02/23/21 at 22:00; Stop 02/24/21 at 21:59; Status DC Rocuronium Olean (Zemuron) 50 mg STK-MED ONCE .ROUTE ; Start 02/23/21 at 12:13; Stop 02/23/21 at 12:13; Status DC Fentanyl Citrate (Fentanyl 2ml Vial) 100 mcg STK-MED ONCE .ROUTE ; Start 02/23/21 at 12:24; Stop 02/23/21 at 12:24; Status DC Insulin Human Lispro (HumaLOG VIAL for OP,RR ONLY) 0-10 units PRN Q1HR PRN SQ PER PROTOCOL Last administered on 02/23/21at 13:00; Start 02/23/21 at 13:15; Stop 02/24/21 at 13:14; Status DC Rocuronium Olean (Zemuron) 100 mg STK-MED ONCE .ROUTE ; Start 02/23/21 at 13:22; Stop 02/23/21 at 13:23; Status DC Albuterol Sulfate (Ventolin Hfa) 60 puff STK-MED ONCE INH ; Start 02/23/21 at 13:47; Stop 02/23/21 at 13:48; Status DC Sevoflurane (Ultane) 60 ml STK-MED ONCE IH ; Start 02/23/21 at 14:21; Stop 02/23/21 at 14:21; Status DC Potassium Acetate 50 meq/Potassium Phosphate 13.6 mmol/Magnesium Sulfate 8 meq/ Calcium Gluconate 5 meq/ Multivitamins 5 ml/Zinc/Copper/ Manganese/ Selenium 1 ml/ Total Parenteral Nutrition/Amino Acids/Dextrose 2,040 ml @ 85 mls/hr TPN CONT IV ; Start 02/25/21 at 22:00; Stop 02/26/21 at 21:59; Status DC Potassium Acetate 50 meq/Potassium Phosphate 13.6 mmol/Magnesium Sulfate 8 meq/ Calcium Gluconate 5 meq/ Multivitamins 5 ml/Zinc/Copper/ Manganese/ Selenium 1 ml/ Total Parenteral Nutrition/Amino Acids/Dextrose 2,040 ml @ 85 mls/hr TPN CONT IV Last administered on 02/26/21at 21:27; Start 02/26/21 at 22:00; Stop 02/27/21 at 21:59; Status DC Potassium Acetate 50 meq/Potassium Phosphate 13.6 mmol/Magnesium Sulfate 8 meq/ Calcium Gluconate 5 meq/ Multivitamins 5 ml/Zinc/Copper/ Manganese/ Selenium 1 ml/ Total Parenteral Nutrition/Amino Acids/Dextrose 2,040 ml @ 85 mls/hr TPN CONT IV Last administered on 02/27/21at 21:01; Start 02/27/21 at 22:00; Stop 02/28/21 at 21:59; Status DC Potassium Acetate 50 meq/Potassium Phosphate 13.6 mmol/Magnesium Sulfate 8 meq/ Calcium Gluconate 5 meq/ Multivitamins 5 ml/Zinc/Copper/ Manganese/ Selenium 1 ml/ Total Parenteral Nutrition/Amino Acids/Dextrose 2,040 ml @ 85 mls/hr TPN CONT IV Last administered on 02/28/21at 21:44; Start 02/28/21 at 22:00; Stop 03/01/21 at 21:59; Status DC Potassium Acetate 50 meq/Potassium Phosphate 13.6 mmol/Magnesium Sulfate 8 meq/ Calcium Gluconate 5 meq/ Multivitamins 5 ml/Zinc/Copper/ Manganese/ Selenium 1 ml/ Total Parenteral Nutrition/Amino Acids/Dextrose 2,040 ml @ 85 mls/hr TPN CONT IV Last administered on 03/01/21at 21:22; Start 03/01/21 at 22:00; Stop 03/02/21 at 21:59; Status DC Potassium Acetate 50 meq/Potassium Phosphate 13.6 mmol/Magnesium Sulfate 8 meq/ Multivitamins 5 ml/Zinc/Copper/ Manganese/ Selenium 1 ml/ Total Parenteral Nutrition/Amino Acids/Dextrose 2,040 ml @ 85 mls/hr TPN CONT IV Last administered on 03/02/21at 21:11; Start 03/02/21 at 22:00; Stop 03/03/21 at 21:59; Status DC Insulin Glargine (Lantus Syringe) 35 unit QHS SQ Last administered on 03/06/21at 20:27; Start 03/02/21 at 21:00 Potassium Acetate 50 meq/Potassium Phosphate 13.6 mmol/Magnesium Sulfate 8 meq/ Multivitamins 5 ml/Zinc/Copper/ Manganese/ Selenium 1 ml/ Total Parenteral Nutrition/Amino Acids/Dextrose 1,800 ml @ 75 mls/hr TPN CONT IV Last administered on 03/03/21at 21:54; Start 03/03/21 at 22:00; Stop 03/04/21 at 21:59; Status DC Docusate Sodium (Colace Solution) 100 mg DAILY PO Last administered on 03/06/21at 14:10; Start 03/03/21 at 10:00 Polyethylene Glycol (miraLAX PACKET) 17 gm DAILY PO Last administered on 03/06/21at 08:58; Start 03/03/21 at 10:00 Potassium Acetate 40 meq/Potassium Phosphate 13.6 mmol/Magnesium Sulfate 10 meq/ Multivitamins 5 ml/Zinc/Copper/ Manganese/ Selenium 1 ml/ Total Parenteral Nutrition/Amino Acids/Dextrose 1,800 ml @ 75 mls/hr TPN CONT IV Last administered on 03/04/21at 22:16; Start 03/04/21 at 22:00; Stop 03/05/21 at 21:59; Status DC Linezolid/Dextrose 300 ml @ 300 mls/hr Q12HR IV Last administered on 03/06/21at 20:22; Start 03/05/21 at 09:00 Magnesium Sulfate 50 ml @ 25 mls/hr 1X ONCE IV Last administered on 03/05/21at 13:31; Start 03/05/21 at 14:00; Stop 03/05/21 at 15:59; Status DC Sodium Chloride 40 meq/Potassium Acetate 40 meq/ Potassium Phosphate 13.6 mmol/Magnesium Sulfate 10 meq/ Multivitamins 5 ml/Zinc/Copper/ Manganese/ Selenium 1 ml/ Total Parenteral Nutrition/Amino Acids/Dextrose 1,800 ml @ 75 mls/hr TPN CONT IV Last administered on 03/05/21at 21:20; Start 03/05/21 at 22:00; Stop 03/06/21 at 21:59; Status DC Sodium Chloride 40 meq/Potassium Acetate 40 meq/ Potassium Phosphate 13.6 mmol/Magnesium Sulfate 10 meq/ Multivitamins 5 ml/Zinc/Copper/ Manganese/ Seleni um 1 ml/ Total Parenteral Nutrition/Amino Acids/Dextrose 1,800 ml @ 75 mls/hr TPN CONT IV Last administered on 03/06/21at 21:35; Start 03/06/21 at 22:00; Stop 03/07/21 at 21:59 Vitals/I & O Vital Sign - Last 24 Hours 03/06/21 03/06/21 03/06/21 03/06/21 08:47 09:00 10:00 11:00 Pulse 71 68 68 Resp 16 10 14 B/P (MAP) 113/68 (83) 152/82 (105) 155/87 (109) Pulse Ox 97 98 97 97 O2 Delivery Ventilator Ventilator Ventilator Ventilator 03/06/21 03/06/21 03/06/21 03/06/21 12:00 12:00 12:29 13:00 Temp 99.7 99.7 Pulse 64 64 Resp 12 12 B/P (MAP) 123/72 (89) 127/75 (92) Pulse Ox 98 97 97 O2 Delivery Mechanical Ventilator Ventilator Ventilator Ventilator 03/06/21 03/06/21 03/06/21 03/06/21 14:00 14:12 14:30 15:00 Pulse 72 80 72 64 Resp 10 14 21 14 B/P (MAP) 210/116 (147) 206/100 (135) 125/73 (90) 165/94 (117) Pulse Ox 94 94 96 96 O2 Delivery Ventilator Ventilator Ventilator Ventilator 03/06/21 03/06/21 03/06/21 03/06/21 15:17 16:00 16:00 16:38 Temp 99.3 99.3 Pulse 75 60 Resp 11 B/P (MAP) 165/94 146/79 (101) Pulse Ox 98 96 O2 Delivery Ventilator Mechanical Ventilator 03/06/21 03/06/21 03/06/21 03/06/21 16:48 17:00 17:08 18:01 Pulse 75 68 Resp 22 18 B/P (MAP) 145/114 (124) 108/68 (81) Pulse Ox 98 99 98 98 O2 Delivery Ventilator Ventilator Ventilator 03/06/21 03/06/21 03/06/21 03/06/21 19:00 19:30 20:00 20:00 Temp 99.2 99.2 Pulse 64 65 Resp 17 16 B/P (MAP) 119/68 (85) 115/67 (83) Pulse Ox 98 99 99 O2 Delivery Ventilator Mechanical Ventilator Ventilator Ventilator 03/06/21 03/06/21 03/06/21 03/06/21 21:00 22:00 23:00 23:00 Pulse 58 59 60 Resp 16 14 14 B/P (MAP) 123/75 (91) 138/80 (99) 120/74 (89) Pulse Ox 99 99 99 99 O2 Delivery Ventilator Ventilator Ventilator Ventilator 03/06/21 03/07/21 03/07/21 03/07/21 23:45 00:01 01:00 02:00 Temp 98.9 98.9 Pulse 61 61 57 Resp 14 12 12 B/P (MAP) 129/78 (95) 141/82 (101) 161/93 (115) Pulse Ox 99 98 98 O2 Delivery Mechanical Ventilator Ventilator Ventilator Ventilator 03/07/21 03/07/21 03/07/21 03/07/21 02:00 03:00 03:30 04:00 Temp 98.6 98.6 Pulse 59 57 Resp 12 15 B/P (MAP) 148/88 (108) 140/82 (101) Pulse Ox 98 98 99 O2 Delivery Ventilator Ventilator Mechanical Ventilator Ventilator 03/07/21 03/07/21 03/07/21 03/07/21 05:00 05:00 05:00 06:00 Pulse 58 59 56 Resp 16 16 13 B/P (MAP) 149/86 (107) 149/86 (107) 144/92 (109) Pulse Ox 98 98 98 98 O2 Delivery Ventilator Ventilator Ventilator Ventilator 03/07/21 03/07/21 03/07/21 07:00 07:45 08:00 Temp 97.8 97.8 Pulse 58 54 Resp 12 B/P (MAP) 131/80 (97) 120/80 (93) Pulse Ox 98 97 98 O2 Delivery Ventilator Ventilator Ventilator Intake and Output 03/06/21 03/06/21 03/07/21 14:59 22:59 06:59 Intake Total 120 ml 2059 ml 1422.8 ml Output Total 916 ml 1057 ml 1450 ml Balance -796 ml 1002 ml -27.2 ml Justicifation of Admission Dx: Justifications for Admission: Justification of Admission Dx: Yes Acute Hemorrhagic Stroke: Acute Hemorrhagic Stroke LESLI ALCOCER MD Mar 07, 2021 08:42
[2021-03-07] MEDS: DOCUSATE 100 MG/10 ML SOLUTION. PO SCH (09:48)
[2021-03-07] MEDS: PANTOPRAZOLE IV PUSH 40 MG VIAL. IVP SCH (09:51)
[2021-03-07] MEDS: POLYETHYLENE GLYCOL 3350 17 GM PACKET. PO SCH (09:53)
[2021-03-07] MEDS ORDERED: VECURONIUM BOLUS 10 MG VIAL. IV ONE ×2 (11:15→11:30)
--- NOTE | 2021-03-07 11:15 | PDOC ---
PULMONARY PROGRESS NOTES DATE: 03/07/21 TIME: 11:13 Subjective remains on vent PS 10 and 40% no overnight events Patient is sedated on propofol/Precedex and fentanyl status post tracheotomy on 02/23 Vitals Vital Signs Date Time Temp Pulse Resp B/P (MAP) Pulse Ox O2 Delivery O2 Flow Rate FiO2 03/07/21 09:45 96 Ventilator 03/07/21 09:00 56 15 104/66 (79) 03/07/21 08:00 97.8 97.8 Comments ros unable to obtain intubated on vent Lungs: Clear Cardiovascular: S1, S2 Abdomen: Soft, Non-tender Extremities: No Edema Skin: Warm Labs Laboratory Tests Test 03/05/21 12:34 03/05/21 23:26 03/06/21 05:29 03/06/21 05:30 Glucose (Fingerstick) 210 mg/dL (70-99) 241 mg/dL (70-99) 220 mg/dL (70-99) White Blood Count 6.8 x10^3/uL (4.0-11.0) Red Blood Count 3.58 x10^6/uL (4.30-5.70) Hemoglobin 10.8 g/dL (13.0-17.5) Hematocrit 32.6 % (39.0-53.0) Mean Corpuscular Volume 91 fL (79-100) Mean Corpuscular Hemoglobin 30 pg (25-35) Mean Corpuscular Hemoglobin Concent 33 g/dL (31-37) Red Cell Distribution Width 13.7 % (11.5-14.5) Platelet Count 197 x10^3/uL (140-400) Neutrophils (%) (Auto) 61 % (31-73) Lymphocytes (%) (Auto) 24 % (24-48) Monocytes (%) (Auto) 11 % (0-9) Eosinophils (%) (Auto) 3 % (0-3) Basophils (%) (Auto) 1 % (0-3) Neutrophils # (Auto) 4.1 x10^3/uL (1.8-7.7) Lymphocytes # (Auto) 1.7 x10^3/uL (1.0-4.8) Monocytes # (Auto) 0.7 x10^3/uL (0.0-1.1) Eosinophils # (Auto) 0.2 x10^3/uL (0.0-0.7) Basophils # (Auto) 0.0 x10^3/uL (0.0-0.2) Sodium Level 134 mmol/L (136-145) Potassium Level 4.3 mmol/L (3.5-5.1) Chloride Level 99 mmol/L (98-107) Carbon Dioxide Level 31 mmol/L (21-32) Anion Gap 4 (6-14) Blood Urea Nitrogen 19 mg/dL (8-26) Creatinine 0.8 mg/dL (0.7-1.3) Estimated GFR (Cockcroft-Gault) 119.3 Glucose Level 218 mg/dL (70-99) Calcium Level 9.0 mg/dL (8.5-10.1) Phosphorus Level 4.4 mg/dL (2.6-4.7) Magnesium Level 1.9 mg/dL (1.8-2.4) Triglycerides Level 251 mg/dL (0-150) Test 03/06/21 12:17 03/06/21 18:31 03/06/21 23:33 03/07/21 05:30 Glucose (Fingerstick) 214 mg/dL (70-99) 228 mg/dL (70-99) 239 mg/dL (70-99) White Blood Count 6.6 x10^3/uL (4.0-11.0) Red Blood Count 3.43 x10^6/uL (4.30-5.70) Hemoglobin 10.3 g/dL (13.0-17.5) Hematocrit 30.8 % (39.0-53.0) Mean Corpuscular Volume 90 fL (79-100) Mean Corpuscular Hemoglobin 30 pg (25-35) Mean Corpuscular Hemoglobin Concent 33 g/dL (31-37) Red Cell Distribution Width 13.7 % (11.5-14.5) Platelet Count 181 x10^3/uL (140-400) Sodium Level 137 mmol/L (136-145) Potassium Level 4.4 mmol/L (3.5-5.1) Chloride Level 102 mmol/L (98-107) Carbon Dioxide Level 29 mmol/L (21-32) Anion Gap 6 (6-14) Blood Urea Nitrogen 20 mg/dL (8-26) Creatinine 0.7 mg/dL (0.7-1.3) Estimated GFR (Cockcroft-Gault) 139.2 BUN/Creatinine Ratio 29 (6-20) Glucose Level 244 mg/dL (70-99) Calcium Level 9.2 mg/dL (8.5-10.1) Phosphorus Level 4.5 mg/dL (2.6-4.7) Magnesium Level 1.8 mg/dL (1.8-2.4) Total Bilirubin 0.5 mg/dL (0.2-1.0) Aspartate Amino Transf (AST/SGOT) 27 U/L (15-37) Alanine Aminotransferase (ALT/SGPT) 58 U/L (16-63) Alkaline Phosphatase 120 U/L (46-116) Total Protein 6.5 g/dL (6.4-8.2) Albumin 2.3 g/dL (3.4-5.0) Albumin/Globulin Ratio 0.5 (1.0-1.7) Test 03/07/21 05:31 Glucose (Fingerstick) 215 mg/dL (70-99) Laboratory Tests Test 03/06/21 12:17 03/06/21 18:31 03/06/21 23:33 03/07/21 05:30 Glucose (Fingerstick) 214 mg/dL (70-99) 228 mg/dL (70-99) 239 mg/dL (70-99) White Blood Count 6.6 x10^3/uL (4.0-11.0) Red Blood Count 3.43 x10^6/uL (4.30-5.70) Hemoglobin 10.3 g/dL (13.0-17.5) Hematocrit 30.8 % (39.0-53.0) Mean Corpuscular Volume 90 fL (79-100) Mean Corpuscular Hemoglobin 30 pg (25-35) Mean Corpuscular Hemoglobin Concent 33 g/dL (31-37) Red Cell Distribution Width 13.7 % (11.5-14.5) Platelet Count 181 x10^3/uL (140-400) Sodium Level 137 mmol/L (136-145) Potassium Level 4.4 mmol/L (3.5-5.1) Chloride Level 102 mmol/L (98-107) Carbon Dioxide Level 29 mmol/L (21-32) Anion Gap 6 (6-14) Blood Urea Nitrogen 20 mg/dL (8-26) Creatinine 0.7 mg/dL (0.7-1.3) Estimated GFR (Cockcroft-Gault) 139.2 BUN/Creatinine Ratio 29 (6-20) Glucose Level 244 mg/dL (70-99) Calcium Level 9.2 mg/dL (8.5-10.1) Phosphorus Level 4.5 mg/dL (2.6-4.7) Magnesium Level 1.8 mg/dL (1.8-2.4) Total Bilirubin 0.5 mg/dL (0.2-1.0) Aspartate Amino Transf (AST/SGOT) 27 U/L (15-37) Alanine Aminotransferase (ALT/SGPT) 58 U/L (16-63) Alkaline Phosphatase 120 U/L (46-116) Total Protein 6.5 g/dL (6.4-8.2) Albumin 2.3 g/dL (3.4-5.0) Albumin/Globulin Ratio 0.5 (1.0-1.7) Test 03/07/21 05:31 Glucose (Fingerstick) 215 mg/dL (70-99) Comments CXR 02/21/21 IMPRESSION: 1. Stable life support devices. 2. Improving bibasilar opacities.. CXR 02/18/21 IMPRESSION: Unchanged bibasilar opacities. Recommend follow-up to ensure resolution, particularly of focal opacities in the right lung base. CXR 02/17/21 IMPRESSION: 1. Stable life support devices. 2. Stable bibasilar opacities. 3. Stable small left pleural effusion. IMPRESSION: Chest x-ray 02/13 1. Stable support lines and tubes. 2. Severe right upper lobe predominant bullous emphysema. 3. Stable right perihilar linear atelectasis or infiltrate superimposed on diffuse interstitial prominence and small pleural effusions. Impression . IMPRESSION: 1. Acute hypoxic respiratory failure multifactorial, predominantly to intraparenchymal cerebral hematoma. Status post tracheostomy 02/[address] reveals evidence of a new moderate-sized stroke of frontal lobe, per neurology 3. Long history of tobaccoism. CT angiogram showed bullous emphysema in the upper lobes. 3. Acute kidney injury--resolved 4. Leukocytosis 5. s/p Right occipital craniotomy with evacuation of intracerebral hematoma. 02/09/21 6. Encephalopathy, multifactorial--ongoing 7. Uncontrolled hypertension 8. Fever, per ID 9. Status post tracheotomy 02/23 CT head 02/13, IMPRESSION: 1. Expected interval evolution of a right posterior temporal/occipital intraparenchymal hematoma status post decompressive craniotomy. 2. Expected evolution of a small amount of subarachnoid and intraventricular clot. DATE OF SURGERY: 02/09/2021 PREOPERATIVE DIAGNOSIS: Right posterior temporoparietal occipital intracerebral hemorrhage with neurologic deterioration. POSTOPERATIVE DIAGNOSIS: Right posterior temporoparietal occipital intracerebral hemorrhage with neurologic deterioration. OPERATION PERFORMED: Right occipital craniotomy with evacuation of intracerebral hematoma. Plan . Updated 03/07/21 Continue current vent support PS 10 and 40%, dc sedation and proceed with T shield Trach care daily and PRN Follow CXR/ABG PRN--no changes Follow ID recs for ABX--now off antibiotics Follow neuro sx recs-- s/p Right occipital craniotomy with evacuation of intracerebral hematoma 02/09/21--awaiting repeat head CT Follow neurology recs Continue TPN for nutritional support DVT/GI PPX-- no AC 2/2 intracerebral hematoma D/W RN and RT Social work for DC planning-- LTACH? Pt. is FULL code, with poor prognosis Critical care time 30 minutes Updated 03/06/21 Continue current vent support PS 10 and 40% Trach care daily and PRN Follow CXR/ABG PRN--no changes Follow ID recs for ABX on zosyn and zyvox Follow neuro sx recs-- s/p Right occipital craniotomy with evacuation of intracerebral hematoma 02/09/21 Follow neurology recs Continue nutritional support DVT/GI PPX-- no AC 2/2 intracerebral hematoma D/W RN and RT Social work for DC planning-- LTACH? Pt. is FULL code, with poor prognosis Updated 03/05/21 Continue current vent support PS 10 and 40% Follow CXR/ABG PRN Follow ID recs for ABX Follow neurology recs Continue nutritional support DVT/GI PPX-- D/W RN and RT Social work for DC planning RAJIV HORNE MD Mar 07, 2021 11:15
--- NOTE | 2021-03-07 11:20 | RAD ---
EXAM: Head CT without contrast. HISTORY: Intracranial hemorrhage follow-up. TECHNIQUE: Computed tomographic images of the head were obtained without contrast. *One or more of the following individualized dose reduction techniques were utilized for this examina tion: 1. Automated exposure control. 2. Adjustment of the mA and/or kV according to patient size. 3. Use of iterative reconstruction technique. COMPARISON: 02/27/2021. FINDINGS: There has been slight interval decrease in the attenuation of an acute to subacute intrapar enchymal hemorrhage centered within the right parietal, occipital and posterior temporal lobes measur ing approximately 7 cm in maximum dimension with surrounding edema favoring an infarct with hemorrhag ic transformation. There is stable effacement of the posterior right lateral ventricle. There is no s ignificant midline shift. There is also an acute to subacute suspected infarct with hemorrhagic trans formation within the left frontal lobe measuring approximately 4.0 cm, similar compared to the prior study. There is a stable small amount of subarachnoid blood along the cerebral convexities near the v ertex. There is also a stable small amount of intraventricular hemorrhage within the dependent portio n of the left lateral ventricle. There is no hydrocephalus. There are cerebral white matter changes due to chronic small vessel disease. There is cerebral volume loss. There are stable right craniotomy changes. There has been interval decrease in overlying soft tissue swelling and removal of skin warren. There is fluid throughout the mastoid air cells. There i s a tiny left maxillary sinus air-fluid level. There is a right maxillary sinus mucous retention cyst . There is a nasogastric tube partially included on the [id number]. There is posterior nasopharyng eal soft tissue edema likely due to tube positioning. IMPRESSION: 1. Slight interval decrease in the attenuation of an acute to subacute intraparenchymal hemorrhage ce ntered within the posterior right cerebral hemisphere due to evolving blood products. There is fairly stable surrounding edema and effacement of the posterior right lateral ventricle, favoring hemorrhag ic transformation of a subacute infarction. 2. Stable suspected hemorrhagic infarction within the left frontal lobe and stable small amount of ac earlene subarachnoid hemorrhage along the cerebral convexities. There is also a stable small amount of in traventricular hemorrhage. There is no convincing obstructive hydrocephalus. 3. Cerebral cerebral white matter due to chronic small vessel disease and cerebral volume loss, advan jeremy for patient age. Electronically signed by: Izzy Braswell MD (03/07/2021 11:17 AM) [id number]
--- NOTE | 2021-03-07 14:24 | NUR ---
SS following up with discharge planning. SS reviewed pt chart and discussed with pt RN. Pt is currently on the vent at 50%. COVID19 negative. Pt on TPN, IV Zosyn, and IV Zyvox. Pt on Fentanyl, Propofol, and Precedex. Trach in place. Self pay. Medicaid pending. [facility] following. Pt's family wanting LTACH placement. Pt needing active insurance prior to LTACH accepting. Not stable. SS will continue to follow for discharge planning.
[2021-03-07] MEDS: INSULIN GLARGINE SYRINGE. SQ SCH (20:32)
[2021-03-07] MEDS ORDERED: AMINO ACID IV SCH (22:00)
[2021-03-07] MEDS ORDERED: [UNRECOGNIZED DRUG - OTHER] IV SCH (22:00)
[2021-03-07] MEDS ORDERED: DEXTROSE 70% IV SCH (22:00)
[2021-03-07] MEDS ORDERED: TOTAL PARENTERAL NUTRITION IV SCH (22:00)
[2021-03-08] VITALS (24 sets, daily range): BP systolic 114–177; BP diastolic 69–99
[2021-03-08] MEDS: DEXMEDETOMIDINE 400 MCG in IV NORMAL SALINE 100ML 96 ML IV PRN ×4 (01:51→17:12)
[2021-03-08] MEDS: PROPOFOL 100 ML IV PRN ×5 (02:01→22:39)
[2021-03-08] MEDS: fentaNYL HIGH DOSE PCA 55 ML IV PRN (02:35)
--- NOTE | 2021-03-08 05:35 | PDOC ---
PULMONARY PROGRESS NOTES DATE: 03/08/21 TIME: 05:32 Subjective Patient remains on vent support 40% and PEEP of 5 Patient was sedated for CT of head yesterday and placed back on assist control no overnight events Patient is sedated on propofol/Precedex and fentanyl status post tracheotomy on 02/23 Vitals Vital Signs Date Time Temp Pulse Resp B/P (MAP) Pulse Ox O2 Delivery O2 Flow Rate FiO2 03/08/21 05:00 59 16 153/91 (111) 100 Ventilator 03/08/21 04:00 98.8 98.8 Comments ros unable to obtain intubated on vent Lungs: Clear Cardiovascular: S1, S2 Abdomen: Soft, Non-tender Extremities: No Edema Skin: Warm Labs Laboratory Tests Test 03/06/21 12:17 03/06/21 18:31 03/06/21 23:33 03/07/21 05:30 Glucose (Fingerstick) 214 mg/dL (70-99) 228 mg/dL (70-99) 239 mg/dL (70-99) White Blood Count 6.6 x10^3/uL (4.0-11.0) Red Blood Count 3.43 x10^6/uL (4.30-5.70) Hemoglobin 10.3 g/dL (13.0-17.5) Hematocrit 30.8 % (39.0-53.0) Mean Corpuscular Volume 90 fL (79-100) Mean Corpuscular Hemoglobin 30 pg (25-35) Mean Corpuscular Hemoglobin Concent 33 g/dL (31-37) Red Cell Distribution Width 13.7 % (11.5-14.5) Platelet Count 181 x10^3/uL (140-400) Sodium Level 137 mmol/L (136-145) Potassium Level 4.4 mmol/L (3.5-5.1) Chloride Level 102 mmol/L (98-107) Carbon Dioxide Level 29 mmol/L (21-32) Anion Gap 6 (6-14) Blood Urea Nitrogen 20 mg/dL (8-26) Creatinine 0.7 mg/dL (0.7-1.3) Estimated GFR (Cockcroft-Gault) 139.2 BUN/Creatinine Ratio 29 (6-20) Glucose Level 244 mg/dL (70-99) Calcium Level 9.2 mg/dL (8.5-10.1) Phosphorus Level 4.5 mg/dL (2.6-4.7) Magnesium Level 1.8 mg/dL (1.8-2.4) Total Bilirubin 0.5 mg/dL (0.2-1.0) Aspartate Amino Transf (AST/SGOT) 27 U/L (15-37) Alanine Aminotransferase (ALT/SGPT) 58 U/L (16-63) Alkaline Phosphatase 120 U/L (46-116) Total Protein 6.5 g/dL (6.4-8.2) Albumin 2.3 g/dL (3.4-5.0) Albumin/Globulin Ratio 0.5 (1.0-1.7) Test 03/07/21 05:31 03/07/21 12:49 03/07/21 19:06 03/07/21 23:41 Glucose (Fingerstick) 215 mg/dL (70-99) 205 mg/dL (70-99) 233 mg/dL (70-99) 190 mg/dL (70-99) Laboratory Tests Test 03/07/21 12:49 03/07/21 19:06 03/07/21 23:41 Glucose (Fingerstick) 205 mg/dL (70-99) 233 mg/dL (70-99) 190 mg/dL (70-99) Comments CXR 02/21/21 IMPRESSION: 1. Stable life support devices. 2. Improving bibasilar opacities.. CXR 02/18/21 IMPRESSION: Unchanged bibasilar opacities. Recommend follow-up to ensure resolution, particularly of focal opacities in the right lung base. CXR 02/17/21 IMPRESSION: 1. Stable life support devices. 2. Stable bibasilar opacities. 3. Stable small left pleural effusion. IMPRESSION: Chest x-ray 02/13 1. Stable support lines and tubes. 2. Severe right upper lobe predominant bullous emphysema. 3. Stable right perihilar linear atelectasis or infiltrate superimposed on diffuse interstitial prominence and small pleural effusions. Impression . IMPRESSION: 1. Acute hypoxic respiratory failure multifactorial, predominantly to intraparenchymal cerebral hematoma. Status post tracheostomy 02/[address] reveals evidence of a new moderate-sized stroke of frontal lobe, per neurology 3. Long history of tobaccoism. CT angiogram showed bullous emphysema in the upper lobes. 3. Acute kidney injury--resolved 4. Leukocytosis 5. s/p Right occipital craniotomy with evacuation of intracerebral hematoma. 02/09/21 6. Encephalopathy, multifactorial--ongoing 7. Uncontrolled hypertension 8. Fever, per ID 9. Status post tracheotomy 02/23 CT head 02/13, IMPRESSION: 1. Expected interval evolution of a right posterior temporal/occipital intrapare nchymal hematoma status post decompressive craniotomy. 2. Expected evolution of a small amount of subarachnoid and intraventricular clot. DATE OF SURGERY: 02/09/2021 PREOPERATIVE DIAGNOSIS: Right posterior temporoparietal occipital intracerebral hemorrhage with neurologic deterioration. POSTOPERATIVE DIAGNOSIS: Right posterior temporoparietal occipital intracerebral hemorrhage with neurologic deterioration. OPERATION PERFORMED: Right occipital craniotomy with evacuation of intracerebral hematoma. Plan . Updated 03/08/21 Continue current vent support 16/500/40%/5, DC sedation and return to pressure support 10/5 at 40% if tolerates continue to proceed with trach shield Follow CXR/ABG PRN--no changes Follow ID recs for ABX--remains off antibiotics Follow neuro sx recs-- s/p Right occipital craniotomy with evacuation of intracerebral hematoma 02/09/21- Follow neurology recs--no new recommendations at this time Continue TPN for nutritional support DVT/GI PPX-- no AC 2/2 intracerebral hematoma D/W RN and RT Pt. is FULL code, with poor prognosis Critical care time 30 minutes Updated 03/07/21 Continue current vent support PS 10 and 40%, dc sedation and proceed with T shield Trach care daily and PRN Follow CXR/ABG PRN--no changes Follow ID recs for ABX--now off antibiotics Follow neuro sx recs-- s/p Right occipital craniotomy with evacuation of intracerebral hematoma 02/09/21--awaiting repeat head CT Follow neurology recs Continue TPN for nutritional support DVT/GI PPX-- no AC 2/2 intracerebral hematoma D/W RN and RT Social work for DC planning-- LTACH? Pt. is FULL code, with poor prognosis Critical care time 30 minutes Updated 03/06/21 Continue current vent support PS 10 and 40% Trach care daily and PRN Follow CXR/ABG PRN--no changes Follow ID recs for ABX on zosyn and zyvox Follow neuro sx recs-- s/p Right occipital craniotomy with evacuation of intracerebral hematoma 02/09/21 Follow neurology recs Continue nutritional support DVT/GI PPX-- no AC 2/2 intracerebral hematoma D/W RN and RT Social work for DC planning-- LTACH? Pt. is FULL code, with poor prognosis RAJIV HORNE MD Mar 08, 2021 05:35
[2021-03-08] MEDS: INSULIN LISPRO 300 UNITS/3 ML VIAL. SQ SCH ×3 (05:42→18:37)
[2021-03-08 06:04] LABS: BASO % 0 % (0-3); EOS # 0.3 x10^3/uL (0.0-0.7); EOS % 4 % (0-3); HEMATOCRIT 31.7 % (39.0-53.0); HEMOGLOBIN 10.3 g/dL (13.0-17.5); LYMPH # 1.1 x10^3/uL (1.0-4.8); LYMPH % 16 % (24-48); MEAN CORPUSCULAR HEMOGLOBIN 30 pg (25-35); MEAN CORPUSCULAR HGB CONC 33 g/dL (31-37); MEAN CORPUSCULAR VOLUME 92 fL (79-100); MONO # 0.6 x10^3/uL (0.0-1.1); MONO % 9 % (0-9); NEUT # 4.9 x10^3/uL (1.8-7.7); NEUT % 70 % (31-73); PLATELET COUNT 180 x10^3/uL (140-400); RED BLOOD COUNT 3.47 x10^6/uL (4.30-5.70); RED CELL DISTRIBUTION WIDTH 13.4 % (11.5-14.5); WHITE BLOOD COUNT 6.9 x10^3/uL (4.0-11.0)
[2021-03-08 06:10] LABS: CALCIUM 9.3 mg/dL (8.5-10.1); CREATININE 0.7 mg/dL (0.7-1.3); GFR 139.2; POTASSIUM 4.4 mmol/L (3.5-5.1)
[2021-03-08 06:14] LABS: MAGNESIUM 1.8 mg/dL (1.8-2.4); PHOSPHORUS 4.6 mg/dL (2.6-4.7)
[2021-03-08] MEDS: hydrALAZINE 20 MG/ML VIAL. IVP PRN ×2 (06:35→11:14)
--- NOTE | 2021-03-08 07:57 | PDOC ---
Infectious Disease Note Subjective Subjective Pt intubated ,sedated ON tpn No new issues per discussion with CHELSIE CASTILLO no n/v/d/ Vital Sign Vital Signs Vital Signs Date Time Temp Pulse Resp B/P (MAP) Pulse Ox O2 Delivery O2 Flow Rate FiO2 03/08/21 07:39 100 Ventilator 03/08/21 07:00 99.6 75 27 142/78 (99) 99.6 Physical Exam PHYSICAL EXAM GENERAL: Sedated on vent, patient is not following commands HEENT: no icterus,NGT + NECK trach present LUNGS: Decreased breath sound at bases HEART: S1, S2 bradycardia ABDOMEN: Soft, nontender, mildly distended EXTREMITIES: + edema, no cyanosis. SKIN:no gen rash NEUROLOGIC: unable to assess Right IJ taken out RT PICC Line clean Labs Lab Laboratory Tests Test 03/07/21 12:49 03/07/21 19:06 03/07/21 23:41 03/08/21 05:30 Glucose (Fingerstick) 205 mg/dL (70-99) 233 mg/dL (70-99) 190 mg/dL (70-99) White Blood Count 6.9 x10^3/uL (4.0-11.0) Red Blood Count 3.47 x10^6/uL (4.30-5.70) Hemoglobin 10.3 g/dL (13.0-17.5) Hematocrit 31.7 % (39.0-53.0) Mean Corpuscular Volume 92 fL (79-100) Mean Corpuscular Hemoglobin 30 pg (25-35) Mean Corpuscular Hemoglobin Concent 33 g/dL (31-37) Red Cell Distribution Width 13.4 % (11.5-14.5) Platelet Count 180 x10^3/uL (140-400) Neutrophils (%) (Auto) 70 % (31-73) Lymphocytes (%) (Auto) 16 % (24-48) Monocytes (%) (Auto) 9 % (0-9) Eosinophils (%) (Auto) 4 % (0-3) Basophils (%) (Auto) 0 % (0-3) Neutrophils # (Auto) 4.9 x10^3/uL (1.8-7.7) Lymphocytes # (Auto) 1.1 x10^3/uL (1.0-4.8) Monocytes # (Auto) 0.6 x10^3/uL (0.0-1.1) Eosinophils # (Auto) 0.3 x10^3/uL (0.0-0.7) Basophils # (Auto) 0.0 x10^3/uL (0.0-0.2) Sodium Level 133 mmol/L (136-145) Potassium Level 4.4 mmol/L (3.5-5.1) Chloride Level 100 mmol/L (98-107) Carbon Dioxide Level 29 mmol/L (21-32) Anion Gap 4 (6-14) Blood Urea Nitrogen 25 mg/dL (8-26) Creatinine 0.7 mg/dL (0.7-1.3) Estimated GFR (Cockcroft-Gault) 139.2 Glucose Level 210 mg/dL (70-99) Calcium Level 9.3 mg/dL (8.5-10.1) Phosphorus Level 4.6 mg/dL (2.6-4.7) Magnesium Level 1.8 mg/dL (1.8-2.4) Test 03/08/21 05:40 Glucose (Fingerstick) 197 mg/dL (70-99) Micro Respiratory culture negative Objective Assessment IMPRESSION: 1. Fever. 2. Suspected aspiration. 3. Encephalopathy. 4. Intracranial bleed with mass effect, status post craniotomy and hematoma evacuation. 5. Respiratory failure. 6. Hypertension. 7. Chronic obstructive pulmonary disease. Plan Plan of Care cont Zosyn Zyvox Monitor labs and cults cont supportive care Prognosis remains very poor Neurology following Discussed with nursing staff JANE DELGADO MD Mar 08, 2021 07:57
--- NOTE | 2021-03-08 08:27 | RAD ---
EXAM: Chest, single view. HISTORY: Hypoxia. COMPARISON: 03/06/2021 FINDINGS: A frontal view of the chest is obtained. There is a tracheostomy device overlying the thora cic inlet. There is nasogastric tube within the stomach. There is a right PICC with the tip in the ri ght atrium. There is right upper lobe bullous emphysema. There is stable bilateral lower lobe interst itial infiltrate and small pleural effusions. There is a stable cardiac silhouette. There is no pneum othorax. IMPRESSION: 1. Stable bilateral lower lobe infiltrate and small pleural effusions. 2. Right upper lobe bullous emphysema. 3. Stable support lines and tubes. Electronically signed by: Izzy Braswell MD (03/08/2021 8:25 AM) [id number]
[2021-03-08] MEDS: DOCUSATE 100 MG/10 ML SOLUTION. PO SCH (09:00)
[2021-03-08] MEDS: ACETAMINOPHEN 650 MG/20.3 ML SOLUTION. PEG PRN ×2 (09:01→09:40)
[2021-03-08] MEDS: PANTOPRAZOLE IV PUSH 40 MG VIAL. IVP SCH (09:01)
[2021-03-08] MEDS: POLYETHYLENE GLYCOL 3350 17 GM PACKET. PO SCH (09:02)
--- NOTE | 2021-03-08 09:04 | PDOC ---
PROGRESS NOTES Date of Service: DATE: 03/08/21 TIME: 09:03 Chief Complaint Chief Complaint Respiratory failure requiring intubation Status post tracheostomy [employer] hemorrhage Status post craniotomy 02/09/2021 Obesity Aspiration Hypertension COPD Acute kidney injury Severe malnutrition History of Present Illness History of Present Illness 03/08/2021 Slight interval decrease in the attenuation of an acute to subacute intraparenchymal hemorrhage centered within the posterior right cerebral hemisphere due to evolving blood products. There is fairly stable surrounding edema and effacement of the posterior right lateral ventricle, favoring hemorrhagic transformation of a subacute infarction. Stable suspected hemorrhagic infarction within the left frontal lobe and stable small amount of acute subarachnoid hemorrhage along the cerebral convexities. There is also a stable small amount of intraventricular hemorrhage. There is no convincing obstructive hydrocephalus. remains on vent PS 10 and 40% family wants all measures and transfer to long-term acute care.// will need a tracheostomy and PEG Patient seen and examined in the ICU Interval development of a left frontal hypodensity concerning for subacute infarct. intubated but on spontaneous respirations 10 of pressure support with 40% FiO2 TPN hanging Moore to bedside drainage Sedated with propofol fentanyl and Dex Discussed with RN Chart reviewed remains critically ill Discontinue antibiotics 03-07 32 min cc time STATUS: ADM IN LOCATION: [address] [place] [address] 03-07 PREOPERATIVE DIAGNOSIS: Prolonged intubation and prolonged need for ventilatory support. POSTOPERATIVE DIAGNOSIS: Prolonged intubation and prolonged need for ventilatory support. PROCEDURE PERFORMED: Tracheostomy. SURGEON: Melony Avelar MD VINYL HANGER: LORNA Santacruz ANESTHESIA: General endotracheal anesthesia. INDICATIONS FOR SURGERY: The patient is a 61-year-old male admitted to the hospital on 02/09/2021 after suffering a stroke. The patient underwent right occipital craniotomy with evacuation of intracerebral hematoma on 02/09/2021 and he has continued to not awaken from anesthesia since that time. Due to prolonged need for ventilatory support, the decision was made for the patient to undergo a tracheostomy. After the risks, benefits and alternatives of surgery were discussed with the patient's family, an informed consent was obtained. 03/07/2021 Slight interval decrease in the attenuation of an acute to subacute intraparenchymal hemorrhage centered within the posterior right cerebral hemisphere due to evolving blood products. There is fairly stable surrounding edema and effacement of the posterior right lateral ventricle, favoring hemorrhagic transformation of a subacute infarction. Stable suspected hemorrhagic infarction within the left frontal lobe and stable small amount of acute subarachnoid hemorrhage along the cerebral convexities. There is also a stable small amount of intraventricular hemorrhage. There is no convincing obstructive hydrocephalus. remains on vent PS 10 and 40% family wants all measures and transfer to long-term acute care.// will need a tracheostomy and PEG Patient seen and examined in the ICU Interval development of a left frontal hypodensity concerning for subacute infarct. intubated but on spontaneous respirations 10 of pressure support with 40% FiO2 TPN hanging Moore to bedside drainage Sedated with propofol fentanyl and Dex Discussed with RN Chart reviewed remains critically ill Discontinue antibiotics 03-07 33 min cc time 03/06/2021 family wants all measures and transfer to long-term acute care.// will need a tracheostomy and PEG Patient seen and examined in the ICU Interval development of a left frontal hypodensity concerning for subacute infarct. intubated but on spontaneous respirations 10 of pressure support with 40% FiO2 considering starting OG feeds but still currently has TPN hanging Moore to bedside drainage Sedated with propofol fentanyl and Dex Discussed with RN Chart reviewed remains critically ill 33 min cc time 03/05/2021 Patient seen and examined in the ICU He is still intubated but on spontaneous respirations 10 of pressure support with 40% FiO2 We are considering starting OG feeds today but still currently has TPN hanging Moore to bedside drainage Sedated with propofol fentanyl and Dex Discussed with RN Chart reviewed He remains critically ill 03/04/2021 Patient seen and examined in the ICU He is currently on spontaneous respirations via tracheostomy with pressure support of 10 Discussed with RN Chart reviewed Patient still has TPN running but we are going to try to change that to OG feeds later today Sedated with fentanyl propofol and Precedex SCDs in place Moore to bedside drainage Remains critically ill 03/03/2021 Patient seen and examined in the ICU He has a clean dry intact tracheostomy Currently on spontaneous respirations with 10 of pressure support 40% FiO2 Discussed with RN Chart reviewed Has TPN hanging Sedated with fentanyl propofol and Precedex OG feeds are to suction SCDs in place Moore to bedside drainage He remains critically ill 03/02/2021 Patient seen and examined in the ICU We just changed him over to spontaneous respirations with 10 of pressure support and 40% FiO2 Discussed with RN and respiratory therapy He has been able to be on spontaneous respirations during the daytime for the past 3 days but we have placed him back on assist-control at nighttime Trach is clean and in tact Has Moore to bedside drainage SCDs in place OG is to suction Has IV TPN Has IV Zyvox Sedated with Precedex and propofol 03/01/2021 Patient seen and examined in the ICU He remains mechanically ventilated AC/16/500/40 5% with 5 of PEEP trach appears clean dry and intact He is a Moore bedside drainage Sedated with fentanyl and propofol Has TPN hanging Discussed with RN Discussed with case management Chart reviewed He remains very critically ill 02/28/2021 Patient seen and examined in the ICU He remains mechanically ventilated Has a tracheostomy in place Vent settings as follows AC/16/500/45/5 of PEEP Has SCDs in place Moore is to bedside drainage Sedated with Precedex fentanyl and propofol Has IV TPN Chart reviewed Discussed with RN He remains critically 02/27/2021 Patient seen and examined in the ICU He remains mechanically ventilated AC/16/500/40 5% with 5 of PEEP Has tracheostomy in place Has TPN running SCDs are in place Moore to bedside drainage Sedated with fentanyl and propofol Discussed with RN Chart reviewed He remains critically 02/26/2021: Low-grade fever overnight (99.6 F). On vent with FiO2 40%, PEEP 5. S/p tracheostomy 02/23. Per RN, some hypertension overnight (systolic BP 203) requiring IV nicardipine, but this has been titrated down and now able to resume as needed hydralazine. Recommend keep nicardipine on standby to maintain blood pressure <150/90 mmHg. Continue TPN but will likely need PEG tube and eventually long-term acute care. Due to low-grade fever, lines are being changed. Continue Zosyn and Zyvox, per ID. Critical care time 30 minutes spent reviewing charts, reviewing imaging, reviewing labs, and discussion with RN. 02/25/2021: Remains on vent with FiO2 40%, PEEP 5. Afebrile. Plan for follow-up CT head on Saturday. Continue Zosyn, per ID. Blood glucose well controlled. Critical care time 30 minutes spent reviewing charts, reviewing imaging, reviewing labs, and discussion with RN. 02/24/2021: Afebrile. Had tracheostomy performed yesterday. On vent with FiO2 40%, PEEP 5. Continue antibiotics, per ID. Critical care time 30 minutes reviewing labs, reviewing imaging, reviewing charts, discussed with RN. 02/23/2021: Patient remains intubated in ICU, FiO2 40%, PEEP 5. I believe plan is for trach today. Continue daptomycin, Zosyn, and Zyvox, per ID. Critical care time 30 minutes spent reviewing charts, reviewing labs, reviewing imaging, discussion with RN. 02/22/2011: Patient ange intubated in ICU. Febrile today, T-max 100.3. FiO2 40, PEEP 5. Continue treatment with Zosyn, per ID. Continue to wean sedation as tolerated. Plan for trach tomorrow. Critical care time 30 minutes spent reviewing chart, reviewing labs, imaging, and discussion with RN. 02/21/2021: Patient remains intubated in ICU, FiO2 40%, PEEP 5. Afebrile. POD #12, s/p right occipital craniotomy with evacuation of intracerebral hematoma (02/09/21). Chest x-ray today shows improving bibasilar opacities. Continue Zosyn, per ID. Critical care time 30 minutes spent reviewing charts, reviewing labs, reviewing imaging, discussion with RN. 02/20/2021: POD #11 Right occipital craniotomy with evacuation of intracerebral hematoma (02/09/21). Remains sedated on ventilator, FiO2 40%, PEEP 5. Chest x- ray from 02/18 621 showed unchanged bibasilar opacities; recommending follow-up to ensure resolution, particularly of focal opacities in the right lung base. Continue Zosyn. Continue supportive care. Critical care time 30 minutes spent reviewing charts, reviewing labs, reviewing imaging, discussion with RN. 02/19/2021 POD #11 Right occipital craniotomy with evacuation of intracerebral hematoma sedated on vent Patient seen and examined at bedside Continue antibiotics per infectious disease Weaning ventilator and sedation as tolerated extubation in the next few days Plan of care discussed with bedside nurse Expected interval evolution of a right posterior temporal/occipital intrapar enchymal hematoma status post decompressive craniotomy Large right temporo-occipital intraparenchymal bleed, most likely lobar h emorrhage from hypertension, consider venous sinus thrombosis, less likely in this location, aneurysmal bleed, head trauma (also unlikely). craniotomy 7/8 evening Suspect of aspiration, respiratory failure, hypertension, chronic obstructive pulmonary disease, improving acute kidney injury cont Zosyn glucose uncontrolled add Lantus 22 UNITS SQ HS elevated troponin suspect stress induced ischemia 36 MIN CC TIME 02/18/2021 POD #10 Right occipital craniotomy with evacuation of intracerebral hematoma sedated on vent Patient seen and examined at bedside Continue antibiotics per infectious disease Weaning ventilator and sedation as tolerated extubation in the next few days Plan of care discussed with bedside nurse Expected interval evolution of a right posterior temporal/occipital intraparenchymal hematoma status post decompressive craniotomy Large right temporo-occipital intraparenchymal bleed, most likely lobar hemorrhage from hypertension, consider venous sinus thrombosis, less likely in this location, aneurysmal bleed, head trauma (also unlikely). Had craniotomy 7/ evening Suspect of aspiration, respiratory failure, hypertension, chronic obstructive pulmonary disease, improving acute kidney injury cont Zosyn glucose uncontrolled add Lantus 22 UNITS SQ HS 34 MIN CC TIME 02/17/2021 POD #8 Right occipital craniotomy with evacuation of intracerebral hematoma sedated on vent Patient seen and examined at bedside Good response to IV Lasix Continue antibiotics per infectious disease Weaning ventilator and sedation as tolerated extubation in the next few days Plan of care discussed with bedside nurse Expected interval evolution of a right posterior temporal/occipital intraparenchymal hematoma status post decompressive craniotomy Large right temporo-occipital intraparenchymal bleed, most likely lobar hemorrhage from hypertension, consider venous sinus thrombosis, less likely in this location, aneurysmal bleed, head trauma (also unlikely). Had craniotomy / evening Suspect of aspiration, respiratory failure, hypertension, chronic obstructive pulmonary disease, improving acute kidney injury cont Zosyn glucose uncontrolled add Lantus 18 UNITS SQ HS 33 MIN CC TIME 02/16/2021 POD #7 Right occipital craniotomy with evacuation of intracerebral hematoma sedated on vent Patient seen and examined at bedside Good response to IV Lasix Continue antibiotics per infectious disease Weaning ventilator and sedation as tolerated extubation in the next few days Plan of care discussed with bedside nurse Expected interval evolution of a right posterior temporal/occipital intraparenchymal hematoma status post decompressive craniotomy Large right temporo-occipital intraparenchymal bleed, most likely lobar hemorrhage from hypertension, consider venous sinus thrombosis, less likely in this location, aneurysmal bleed, head trauma (also unlikely). Had craniotomy 7/ evening Suspect of aspiration, respiratory failure, hypertension, chronic obstructive pulmonary disease, improving acute kidney injury cont Zosyn glucose uncontrolled add Lantus 14 UNITS SQ HS 35 MIN CC TIME 02/15/2021 POD #6 Right occipital craniotomy with evacuation of intracerebral hematoma sedated on vent Patient seen and examined at bedside Good response to IV Lasix Continue antibiotics per infectious disease Weaning ventilator and sedation as tolerated Hopeful extubation in the next few days Plan of care discussed with bedside nurse Expected interval evolution of a right posterior temporal/occipital intraparenchymal hematoma status post decompressive craniotomy Large right temporo-occipital intraparenchymal bleed, most likely lobar hemorrhage from hypertension, consider venous sinus thrombosis, less likely in this location, aneurysmal bleed, head trauma (also unlikely). Had craniotomy 7/ evening Suspect of aspiration, respiratory failure, hypertension, chronic obstructive pulmonary disease, improving acute kidney injury cont Zosyn glucose uncontrolled add Lantus 35 MIN CC TIME 02/14/2021 POD #5 Right occipital craniotomy with evacuation of intracerebral hematoma sedated on vent Patient seen and examined at bedside Good response to IV Lasix Continue antibiotics per infectious disease Weaning ventilator and sedation as tolerated Hopeful extubation in the next few days Plan of care discussed with bedside nurse Expected interval evolution of a right posterior temporal/occipital intraparenchymal hematoma status post decompressive craniotomy Large right temporo-occipital intraparenchymal bleed, most likely lobar hemorr adilene from hypertension, consider venous sinus thrombosis, less likely in this location, aneurysmal bleed, head trauma (also unlikely). Had craniotomy 7 evening Suspect of aspiration, respiratory failure, hypertension, chronic obstructive pulmonary disease, improving acute kidney injury cont Zosyn glucose uncontrolled add Lantus 35 MIN CC TIME 02/13/2021 POD #4 Right occipital craniotomy with evacuation of intracerebral hematoma sedated on vent Patient seen and examined at bedside Good response to IV Lasix Continue antibiotics per infectious disease Weaning ventilator and sedation as tolerated Hopeful extubation in the next few days Plan of care discussed with bedside nurse Expected interval evolution of a right posterior temporal/occipital int raparenchymal hematoma status post decompressive craniotomy Large right temporo-occipital intraparenchymal bleed, most likely lobar hemorrhage from hypertension, consider venous sinus thrombosis, less likely in this location, aneurysmal bleed, head trauma (also unlikely). Had craniotomy 02/09 evening Suspect of aspiration, respiratory failure, hypertension, chronic obstructive pulmonary disease, improving acute kidney injury cont Zosyn 35 MIN CC TIME 02/12/2021 Patient seen and examined at bedside Remains intubated and sedated Good response to IV Lasix yesterday had nearly 3 L out; will diurese again today Continue antibiotics per infectious disease Weaning ventilator and sedation as tolerated Hopeful extubation in the next few days Plan of care discussed with bedside nurse 02/11/2021 Patient seen and examined at bedside No major clinical changes overnight however this morning patient has largely increased amount of secretions Chest x-ray concerning for possible pneumonia, will consult ID who recommended starting Zosyn Otherwise he remains intubated and sedated We will follow subspecialist input Plan discussed with bedside RN 02/10/2021 Patient seen and examined at bedside Underwent craniotomy yesterday due to unresponsiveness in the late afternoon; was also intubated Continues to have a poor neurologic status Neurology and neurosurgery following Discussed plan of care with bedside nurse Patient is a 61-year-old male transferred for to the ICU overnight due to hypertensive emergency and intracranial hemorrhage. Patient's mother at bedside provides most the history. She reports that patient had been in his usual state of health until yesterday morning when he reported feeling tired and having a headache. Patient mother reports he normally gets up early and goes outside however this was not the case yesterday. With this headache he took BC powder and went back to bed. Patient's mother reports that he was in and out of bed throughout most of the afternoon. Says patient did not eat anything yesterday which is very unusual for him. Approximately 1130 last night she had the patient get up to go to the bathroom and heard him fall. He however is able to get up and returned to bed; unknown if he hit his head at this time. Patient again woke up around 2 AM and woke up his mother asking for orange juice and then proceeded to fall again, she does not think he hit his head at this time. He was taken to hospital and found to have a systolic blood pressure greater than [address] scan found to have an intracranial hemorrhage. Due to severity of his condition he was transferred here. Patient's mother reports she is not aware of any past medical history other than hypertension which he intermittently takes hydrochlorothiazide for. Vitals Vitals Vital Signs Date Time Temp Pulse Resp B/P (MAP) Pulse Ox O2 Delivery O2 Flow Rate FiO2 03/08/21 08:04 Mechanical Ventilator 03/08/21 08:00 75 18 169/92 (117) 100 03/08/21 07:00 99.6 99.6 Physical Exam Physical Exam GENERAL: Sedated on vent, patient is not following commands HEENT: no icterus,NGT + NECK trach present LUNGS: Decreased breath sound at bases HEART: S1, S2 bradycardia ABDOMEN: Soft, nontender, mildly distended EXTREMITIES: + edema, no cyanosis. SKIN:no gen rash NEUROLOGIC: unable to assess Right IJ taken out RT PICC Line clean General: Alert, Other (sedated on vent, trach) Heart: Regular rate Lungs: Clear Abdomen: Normal bowel sounds Extremities: No clubbing, No cyanosis, No edema Skin: Other (Erik removed, dressing changed) Labs LABS Laboratory Tests Test 03/07/21 12:49 03/07/21 19:06 03/07/21 23:41 03/08/21 05:30 Glucose (Fingerstick) 205 mg/dL (70-99) 233 mg/dL (70-99) 190 mg/dL (70-99) White Blood Count 6.9 x10^3/uL (4.0-11.0) Red Blood Count 3.47 x10^6/uL (4.30-5.70) Hemoglobin 10.3 g/dL (13.0-17.5) Hematocrit 31.7 % (39.0-53.0) Mean Corpuscular Volume 92 fL (79-100) Mean Corpuscular Hemoglobin 30 pg (25-35) Mean Corpuscular Hemoglobin Concent 33 g/dL (31-37) Red Cell Distribution Width 13.4 % (11.5-14.5) Platelet Count 180 x10^3/uL (140-400) Neutrophils (%) (Auto) 70 % (31-73) Lymphocytes (%) (Auto) 16 % (24-48) Monocytes (%) (Auto) 9 % (0-9) Eosinophils (%) (Auto) 4 % (0-3) Basophils (%) (Auto) 0 % (0-3) Neutrophils # (Auto) 4.9 x10^3/uL (1.8-7.7) Lymphocytes # (Auto) 1.1 x10^3/uL (1.0-4.8) Monocytes # (Auto) 0.6 x10^3/uL (0.0-1.1) Eosinophils # (Auto) 0.3 x10^3/uL (0.0-0.7) Basophils # (Auto) 0.0 x10^3/uL (0.0-0.2) Sodium Level 133 mmol/L (136-145) Potassium Level 4.4 mmol/L (3.5-5.1) Chloride Level 100 mmol/L (98-107) Carbon Dioxide Level 29 mmol/L (21-32) Anion Gap 4 (6-14) Blood Urea Nitrogen 25 mg/dL (8-26) Creatinine 0.7 mg/dL (0.7-1.3) Estimated GFR (Cockcroft-Gault) 139.2 Glucose Level 210 mg/dL (70-99) Calcium Level 9.3 mg/dL (8.5-10.1) Phosphorus Level 4.6 mg/dL (2.6-4.7) Magnesium Level 1.8 mg/dL (1.8-2.4) Test 03/08/21 05:40 Glucose (Fingerstick) 197 mg/dL (70-99) Comment Review of Relevant I have reviewed the following items neela (where applicable) has been applied. Labs Laboratory Tests Test 03/06/21 12:17 03/06/21 18:31 03/06/21 23:33 03/07/21 05:30 Glucose (Fingerstick) 214 mg/dL (70-99) 228 mg/dL (70-99) 239 mg/dL (70-99) White Blood Count 6.6 x10^3/uL (4.0-11.0) Red Blood Count 3.43 x10^6/uL (4.30-5.70) Hemoglobin 10.3 g/dL (13.0-17.5) Hematocrit 30.8 % (39.0-53.0) Mean Corpuscular Volume 90 fL (79-100) Mean Corpuscular Hemoglobin 30 pg (25-35) Mean Corpuscular Hemoglobin Concent 33 g/dL (31-37) Red Cell Distribution Width 13.7 % (11.5-14.5) Platelet Count 181 x10^3/uL (140-400) Sodium Level 137 mmol/L (136-145) Potassium Level 4.4 mmol/L (3.5-5.1) Chloride Level 102 mmol/L (98-107) Carbon Dioxide Level 29 mmol/L (21-32) Anion Gap 6 (6-14) Blood Urea Nitrogen 20 mg/dL (8-26) Creatinine 0.7 mg/dL (0.7-1.3) Estimated GFR (Cockcroft-Gault) 139.2 BUN/Creatinine Ratio 29 (6-20) Glucose Level 244 mg/dL (70-99) Calcium Level 9.2 mg/dL (8.5-10.1) Phosphorus Level 4.5 mg/dL (2.6-4.7) Magnesium Level 1.8 mg/dL (1.8-2.4) Total Bilirubin 0.5 mg/dL (0.2-1.0) Aspartate Amino Transf (AST/SGOT) 27 U/L (15-37) Alanine Aminotransferase (ALT/SGPT) 58 U/L (16-63) Alkaline Phosphatase 120 U/L (46-116) Total Protein 6.5 g/dL (6.4-8.2) Albumin 2.3 g/dL (3.4-5.0) Albumin/Globulin Ratio 0.5 (1.0-1.7) Test 03/07/21 05:31 03/07/21 12:49 03/07/21 19:06 03/07/21 23:41 Glucose (Fingerstick) 215 mg/dL (70-99) 205 mg/dL (70-99) 233 mg/dL (70-99) 190 mg/dL (70-99) Test 03/08/21 05:30 03/08/21 05:40 White Blood Count 6.9 x10^3/uL (4.0-11.0) Red Blood Count 3.47 x10^6/uL (4.30-5.70) Hemoglobin 10.3 g/dL (13.0-17.5) Hematocrit 31.7 % (39.0-53.0) Mean Corpuscular Volume 92 fL (79-100) Mean Corpuscular Hemoglobin 30 pg (25-35) Mean Corpuscular Hemoglobin Concent 33 g/dL (31-37) Red Cell Distribution Width 13.4 % (11.5-14.5) Platelet Count 180 x10^3/uL (140-400) Neutrophils (%) (Auto) 70 % (31-73) Lymphocytes (%) (Auto) 16 % (24-48) Monocytes (%) (Auto) 9 % (0-9) Eosinophils (%) (Auto) 4 % (0-3) Basophils (%) (Auto) 0 % (0-3) Neutrophils # (Auto) 4.9 x10^3/uL (1.8-7.7) Lymphocytes # (Auto) 1.1 x10^3/uL (1.0-4.8) Monocytes # (Auto) 0.6 x10^3/uL (0.0-1.1) Eosinophils # (Auto) 0.3 x10^3/uL (0.0-0.7) Basophils # (Auto) 0.0 x10^3/uL (0.0-0.2) Sodium Level 133 mmol/L (136-145) Potassium Level 4.4 mmol/L (3.5-5.1) Chloride Level 100 mmol/L (98-107) Carbon Dioxide Level 29 mmol/L (21-32) Anion Gap 4 (6-14) Blood Urea Nitrogen 25 mg/dL (8-26) Creatinine 0.7 mg/dL (0.7-1.3) Estimated GFR (Cockcroft-Gault) 139.2 Glucose Level 210 mg/dL (70-99) Calcium Level 9.3 mg/dL (8.5-10.1) Phosphorus Level 4.6 mg/dL (2.6-4.7) Magnesium Level 1.8 mg/dL (1.8-2.4) Glucose (Fingerstick) 197 mg/dL (70-99) Laboratory Tests Test 03/07/21 12:49 03/07/21 19:06 03/07/21 23:41 03/08/21 05:30 Glucose (Fingerstick) 205 mg/dL (70-99) 233 mg/dL (70-99) 190 mg/dL (70-99) White Blood Count 6.9 x10^3/uL (4.0-11.0) Red Blood Count 3.47 x10^6/uL (4.30-5.70) Hemoglobin 10.3 g/dL (13.0-17.5) Hematocrit 31.7 % (39.0-53.0) Mean Corpuscular Volume 92 fL (79-100) Mean Corpuscular Hemoglobin 30 pg (25-35) Mean Corpuscular Hemoglobin Concent 33 g/dL (31-37) Red Cell Distribution Width 13.4 % (11.5-14.5) Platelet Count 180 x10^3/uL (140-400) Neutrophils (%) (Auto) 70 % (31-73) Lymphocytes (%) (Auto) 16 % (24-48) Monocytes (%) (Auto) 9 % (0-9) Eosinophils (%) (Auto) 4 % (0-3) Basophils (%) (Auto) 0 % (0-3) Neutrophils # (Auto) 4.9 x10^3/uL (1.8-7.7) Lymphocytes # (Auto) 1.1 x10^3/uL (1.0-4.8) Monocytes # (Auto) 0.6 x10^3/uL (0.0-1.1) Eosinophils # (Auto) 0.3 x10^3/uL (0.0-0.7) Basophils # (Auto) 0.0 x10^3/uL (0.0-0.2) Sodium Level 133 mmol/L (136-145) Potassium Level 4.4 mmol/L (3.5-5.1) Chloride Level 100 mmol/L (98-107) Carbon Dioxide Level 29 mmol/L (21-32) Anion Gap 4 (6-14) Blood Urea Nitrogen 25 mg/dL (8-26) Creatinine 0.7 mg/dL (0.7-1.3) Estimated GFR (Cockcroft-Gault) 139.2 Glucose Level 210 mg/dL (70-99) Calcium Level 9.3 mg/dL (8.5-10.1) Phosphorus Level 4.6 mg/dL (2.6-4.7) Magnesium Level 1.8 mg/dL (1.8-2.4) Test 03/08/21 05:40 Glucose (Fingerstick) 197 mg/dL (70-99) Microbiology 7/22/21 Gram Stain - Final, Complete 02/23/21 Aerobic Culture - Final, Complete 02/22/21 Blood Culture - Final, Complete NO GROWTH AFTER 5 DAYS 02/22/21 Gram Stain Evaluation - Final, Complete 02/22/21 Respiratory Culture - Final, Complete Medications Current Medications Nicardipine HCl 50 mg/Sodium Chloride 250 ml @ 12.5 mls/hr CONT PRN IV SEE I/O RECORD Last administered on 02/26/21at 01:20; Start 02/09/21 at 06:15 Labetalol HCl (Normodyne Iv Push) 10 mg PRN Q2HR PRN IVP HYPERTENSION- 1ST CHOICE Last administered on 03/04/21at 02:56; Start 02/09/21 at 06:15 Lorazepam (Ativan Inj) 2 mg 1X ONCE IVP Last administered on 02/09/21at 10:54; Start 02/09/21 at 10:45; Stop 02/09/21 at 10:46; Status DC Lorazepam (Ativan Inj) 2 mg 1X ONCE IVP Last administered on 02/09/21at 11:00; Start 02/09/21 at 11:00; Stop 02/09/21 at 11:01; Status DC Fentanyl Citrate (Fentanyl 2ml Vial) 25 mcg PRN Q2HR PRN IVP MODERATE TO SEVERE PAIN Last administered on 02/09/21at 13:37; Start 02/09/21 at 13:30; Stop 02/18/21 at 22:53; Status DC Info (Review Meds) 1 ea PRN 1X PRN SEE COMMENTS; Start 02/09/21 at 15:00 Acetaminophen (Tylenol Supp) [address] FEVER > 100.5'F or 38'C; Start 02/09/21 at 15:00; Stop 02/11/21 at 21:12; Status DC Albuterol Sulfate (Ventolin Neb Soln) 2.5 mg PRN Q4HRS PRN NEB SHORTNESS OF BREATH; Start 02/09/21 at 15:15 Iohexol (Omnipaque 350 Mg/ml) 75 ml 1X ONCE IV Last administered on 02/09/21at 15:52; Start 02/09/21 at 15:30; Stop 02/09/21 at 15:35; Status DC Iohexol (Omnipaque 350 Mg/ml) 100 ml STK-MED ONCE .ROUTE ; Start 02/09/21 at 15:26; Stop 02/09/21 at 15:27; Status DC Info (CONTRAST GIVEN -- Rx MONITORING) 1 each PRN DAILY PRN MC SEE COMMENTS; Start 02/09/21 at 15:45; Stop 02/11/21 at 15:44; Status DC Propofol 100 ml @ As Directed STK-MED ONCE IV ; Start 02/09/21 at 15:51; Stop 02/09/21 at 15:51; Status DC Rocuronium [place] (Zemuron) 50 mg STK-MED ONCE .ROUTE ; Start 02/09/21 at 15:51; Stop 02/09/21 at 15:51; Status DC Lidocaine HCl (Lidocaine HCl 2% Abboject) 100 mg STK-MED ONCE .ROUTE ; Start 02/09/21 at 15:52; Stop 02/09/21 at 15:53; Status DC Propofol 100 ml @ 3.507 mls/ hr CONT PRN IV PER PROTOCOL Last administered on 03/08/21at 06:08; Start 02/09/21 at 16:15 Lidocaine HCl (Lidocaine HCl 2% Abboject) 100 mg 1X ONCE IV Last administered on 02/09/21at 16:17; Start 02/09/21 at 16:15; Stop 02/09/21 at 16:17; Status DC Rocuronium [place] (Zemuron) 50 mg 1X ONCE IV Last administered on 02/09/21at 16:17; Start 02/09/21 at 16:15; Stop 02/09/21 at 16:17; Status DC Rocuronium [place] (Zemuron) 100 mg STK-MED ONCE .ROUTE ; Start 02/09/21 at 16:31; Stop 02/09/21 at 16:32; Status DC Gelatin (Gelfoam Size 100) 1 each STK-MED ONCE .ROUTE Last administered on 02/09/21at 17:49; Start 02/09/21 at 16:33; Stop 02/09/21 at 16:33; Status DC Bupivacaine HCl/ Epinephrine Bitart (Sensorcain-Epi 0.5%-1:500187 Mpf) 30 ml STK-MED ONCE .ROUTE Last administered on 02/09/21at 17:49; Start 02/09/21 at 16:33; Stop 02/09/21 at 16:33; Status DC Cellulose (Surgicel Hemostat 4x8) 1 each STK-MED ONCE .ROUTE Last administered on 02/09/21at 18:38; Start 02/09/21 at 16:33; Stop 02/09/21 at 16:33; Status DC Thrombin 20,000 unit STK-MED ONCE TP Last administered on 02/09/21at 17:49; Start 02/09/21 at 16:33; Stop 02/09/21 at 16:33; Status DC Fentanyl Citrate (Fentanyl 2ml Vial) 75 mcg 1X ONCE IVP Last administered on 02/09/21at 16:45; Start 02/09/21 at 16:45; Stop 02/09/21 at 16:47; Status DC Propofol (Diprivan) 200 mg 1X ONCE IV ; Start 02/09/21 at 17:15; Stop 02/09/21 at 17:16; Status DC Lidocaine HCl (Lidocaine HCl 2% Abboject) 100 mg 1X ONCE IV ; Start 02/09/21 at 17:15; Stop 02/09/21 at 17:16; Status DC Rocuronium [place] (Zemuron) 50 mg 1X ONCE IV ; Start 02/09/21 at 17:15; Stop 02/09/21 at 17:16; Status DC Propofol 100 ml @ 0 mls/hr CONT PRN PRN IV SEDATION; Start 02/09/21 at 17:15; Stop 02/10/21 at 05:14; Status DC Cefazolin Sodium (Ancef) 1 gm STK-MED ONCE IVP ; Start 02/09/21 at 17:28; Stop 02/09/21 at 17:28; Status DC Fentanyl Citrate (Fentanyl 2ml Vial) 100 mcg STK-MED ONCE .ROUTE ; Start 02/09/21 at 17:43; Stop 02/09/21 at 17:43; Status DC Rocuronium [place] (Zemuron) 100 mg STK-MED ONCE .ROUTE ; Start 02/09/21 at 17:58; Stop 02/09/21 at 17:59; Status DC Vecuronium [place] (Norcuron Bolus) 10 mg STK-MED ONCE IV ; Start 02/09/21 at 18:49; Stop 02/09/21 at 18:50; Status DC Sodium Chloride (SODIUM CHLORIDE 20ml) 20 ml STK-MED ONCE IJ ; Start 02/09/21 at 18:50; Stop 02/09/21 at 18:50; Status DC Sevoflurane (Ultane) 90 ml STK-MED ONCE IH ; Start 02/09/21 at 19:20; Stop 02/09/21 at 19:21; Status DC Fentanyl Citrate 30 ml @ 2.5 mls/hr CONT PRN IV SEE PROTOCOL Last administered on 02/09/21at 23:40; Start 02/09/21 at 23:15; Stop 02/10/21 at 04:43; Status DC Fentanyl Citrate 55 ml @ 0 mls/hr CONT PRN IV SEE I/O Last administered on 03/08/21at 02:35; Start 02/10/21 at 05:00 Potassium Chloride/Dextrose/ Sod Cl 1,000 ml @ 80 mls/hr [id number] IV ; Start 02/10/21 at 09:00; Stop 02/10/21 at 13:21; Status DC Pantoprazole Sodium (PROTONIX VIAL for IV PUSH) 40 mg DAILYAC IVP Last administered on 03/08/21at 09:01; Start 02/10/21 at 09:00 Lidocaine HCl (Buffered Lidocaine 1%) 3 ml STK-MED ONCE .ROUTE ; Start 02/10/21 at 13:18; Stop 02/10/21 at 13:18; Status DC Sodium Chloride 1,000 ml @ 80 mls/hr [id number] IV Last administered on 02/12/21at 03:00; Start 02/10/21 at 13:30; Stop 02/12/21 at 15:36; Status DC Lidocaine HCl (Buffered Lidocaine 1%) 6 ml 1X ONCE INJ Last administered on 02/10/21at 13:57; Start 02/10/21 at 13:45; Stop 02/10/21 at 13:46; Status DC Potassium Chloride/Water 100 ml @ 100 mls/hr Q1H IV Last administered on 02/11/21at 10:07; Start 02/11/21 at 08:00; Stop 02/11/21 at 09:59; Status DC Piperacillin Sod/ Tazobactam Sod 3.375 gm/Sodium Chloride 50 ml @ 100 mls/hr Q6HRS IV Last administered on 03/07/21at 05:35; Start 02/11/21 at 09:00; Stop 03/07/21 at 09:45; Status DC Info (Tpn Per Pharmacy) 1 each PRN DAILY PRN MC SEE COMMENTS Last administered on 03/06/21at 14:47; Start 02/11/21 at 11:15 Sodium Chloride 90 meq/Potassium Chloride 50 meq/ Potassium Phosphate 13.6 mmol/Magnesium Sulfate 10 meq/ Calcium Gluconate 10 meq/ Multivitamins 5 ml/Zinc/Copper/ Manganese/ Selenium 1 ml/ Total Parenteral Nutrition/Amino Acids/Dextrose 1,512 ml @ 63 mls/hr TPN CONT IV Last administered on 02/11/21at 22:32; Start 02/11/21 at 22:00; Stop 02/12/21 at 21:59; Status DC Furosemide (Lasix) 20 mg 1X ONCE IVP Last administered on 02/11/21at 15:11; Start 02/11/21 at 15:30; Stop 02/11/21 at 15:31; Status DC Furosemide (Lasix) 20 mg 1X ONCE IVP Last administered on 02/11/21at 17:00; Start 02/11/21 at 17:00; Stop 02/11/21 at 17:01; Status DC Midazolam HCl 100 ml @ 1 mls/hr CONT PRN IV SEE PROTOCOL Last administered on 02/13/21at 20:58; Start 02/11/21 at 19:30 Acetaminophen (Tylenol Supp) [address] Q6HRS [address] MILD PAIN / TEMP > 100.3'F; Start 02/11/21 at 21:15 Sodium Chloride 80 meq/Potassium Chloride 50 meq/ Potassium Phosphate 13.6 mmol/Magnesium Sulfate 6 meq/ Calcium Gluconate 10 meq/ Multivitamins 5 ml/Zinc/Copper/ Manganese/ Selenium 1 ml/ Total Parenteral Nutrition/Amino Acids/Dextrose 1,512 ml @ 63 mls/hr TPN CONT IV Last administered on at 22:09; Start 02/12/21 at 22:00; Stop 02/13/21 at 21:59; Status DC Furosemide (Lasix) 40 mg 1X ONCE IVP Last administered on 02/12/21at 12:44; Start 02/12/21 at 12:30; Stop 02/12/21 at 12:31; Status DC Insulin Human Lispro (HumaLOG) 0-5 UNITS Q6HRS SQ Last administered on 03/08/21at 05:42; Start 02/12/21 at 12:00 Dextrose (Dextrose 50%-Water Syringe) 12.5 gm PRN Q15MIN PRN IV SEE COMMENTS; Start 02/12/21 at 12:15 Clonidine HCl (Catapres Tts-3) 1 patch WEEKLY TD Last administered on 03/06/21at 09:07; Start 02/13/21 at 11:00 Sodium Chloride 80 meq/Potassium Chloride 50 meq/ Potassium Phosphate 13.6 mmol/Magnesium Sulfate 6 meq/ Calcium Gluconate 10 meq/ Multivitamins 5 ml/Zinc/Copper/ Manganese/ Selenium 1 ml/ Total Parenteral Nutrition/Amino Acids/Dextrose 1,512 ml @ 63 mls/hr TPN CONT IV Last administered on 02/13/21at 21:42; Start 02/13/21 at 22:00; Stop 02/14/21 at 21:59; Status DC Potassium Acetate 50 meq/Potassium Phosphate 13.6 mmol/Magnesium Sulfate 6 meq/ Calcium Gluconate 10 meq/ Multivitamins 5 ml/Zinc/Copper/ Manganese/ Selenium 1 ml/ Total Parenteral Nutrition/Amino Acids/Dextrose 1,512 ml @ 63 mls/hr TPN CONT IV Last administered on 02/14/21at 21:59; Start 02/14/21 at 22:00; Stop 02/15/21 at 21:59; Status DC Insulin Glargine (Lantus Syringe) 10 unit QHS SQ Last administered on 02/15/21at 22:11; Start 02/14/21 at 21:00; Stop 02/16/21 at 12:42; Status DC Hydralazine HCl (Apresoline Inj) 10 mg PRN Q4HRS PRN IVP ELEVATED BP, SEE COMMENTS Last administered on 03/08/21at 06:35; Start 02/14/21 at 16:00 Potassium Acetate 50 meq/Potassium Phosphate 13.6 mmol/Magnesium Sulfate 6 meq/ Calcium Gluconate 10 meq/ Multivitamins 5 ml/Zinc/Copper/ Manganese/ Selenium 1 ml/ Total Parenteral Nutrition/Amino Acids/Dextrose 1,512 ml @ 63 mls/hr TPN CONT IV Last administered on 02/15/21at 22:13; Start 02/15/21 at 22:00; Stop 02/16/21 at 21:59; Status DC Dexmedetomidine HCl 400 mcg/ Sodium Chloride 100 ml @ 0 mls/hr CONT PRN IV PER PROTOCOL Last administered on 03/08/21at 09:02; Start 02/15/21 at 14:15 Sodium Chloride 500 ml @ 500 mls/hr 1X PRN PRN IV SEE COMMENTS; Start 02/15/21 at 14:15 Atropine Sulfate (ATROPINE 0.5mg SYRINGE) 0.5 mg PRN Q5MIN PRN IV SEE COMMENTS; Start 02/15/21 at 14:15 Potassium Acetate 50 meq/Potassium Phosphate 13.6 mmol/Magnesium Sulfate 6 meq/ Calcium Gluconate 10 meq/ Multivitamins 5 ml/Zinc/Copper/ Manganese/ Selenium 1 ml/ Total Parenteral Nutrition/Amino Acids/Dextrose 1,512 ml @ 63 mls/hr TPN CONT IV Last administered on 02/16/21at 22:59; Start 02/16/21 at 22:00; Stop 02/17/21 at 21:59; Status DC Insulin Glargine (Lantus Syringe) 14 unit QHS SQ Last administered on 02/16/21at 21:14; Start 02/16/21 at 21:00; Stop 02/17/21 at 14:15; Status DC Potassium Acetate 50 meq/Potassium Phosphate 13.6 mmol/Magnesium Sulfate 6 meq/ Calcium Gluconate 10 meq/ Multivitamins 5 ml/Zinc/Copper/ Manganese/ Selenium 1 ml/ Total Parenteral Nutrition/Amino Acids/Dextrose 1,512 ml @ 63 mls/hr TPN CONT IV Last administered on 02/17/21at 20:48; Start 02/17/21 at 22:00; Stop 02/18/21 at 21:59; Status DC Dextrose 1,000 ml @ 75 mls/hr [id number] IV Last administered on 02/18/21at 13:51; Start 02/17/21 at 10:30; Stop 02/19/21 at 12:57; Status DC Insulin Glargine (Lantus Syringe) 18 unit QHS SQ Last administered on 02/17/21at 20:46; Start 02/17/21 at 21:00; Stop 02/18/21 at 11:56; Status DC Insulin Glargine (Lantus Syringe) 22 unit QHS SQ Last administered on 02/18/21at 21:00; Start 02/18/21 at 21:00; Stop 02/19/21 at 14:08; Status DC Potassium Acetate 50 meq/Potassium Phosphate 13.6 mmol/Magnesium Sulfate 6 meq/ Calcium Gluconate 10 meq/ Multivitamins 5 ml/Zinc/Copper/ Manganese/ Selenium 1 ml/ Total Parenteral Nutrition/Amino Acids/Dextrose 1,512 ml @ 63 mls/hr TPN CONT IV Last administered on 02/18/21at 21:43; Start 02/18/21 at 22:00; Stop 02/19/21 at 21:59; Status DC Potassium Acetate 50 meq/Potassium Phosphate 13.6 mmol/Magnesium Sulfate 6 meq/ Calcium Gluconate 10 meq/ Multivitamins 5 ml/Zinc/Copper/ Manganese/ Selenium 1 ml/ Total Parenteral Nutrition/Amino Acids/Dextrose 2,040 ml @ 85 mls/hr TPN CONT IV Last administered on 02/19/21at 20:56; Start 02/19/21 at 22:00; Stop 02/20/21 at 21:59; Status DC Insulin Glargine (Lantus Syringe) 25 unit QHS SQ Last administered on 02/20/21at 22:11; Start 02/19/21 at 21:00; Stop 02/21/21 at 10:10; Status DC Acetaminophen (Tylenol) 650 mg PRN Q6HRS PRN PEG MILD PAIN / TEMP > 100.3'F Last administered on 03/08/21at 09:01; Start 02/19/21 at 18:00 Potassium Acetate 50 meq/Potassium Phosphate 13.6 mmol/Magnesium Sulfate 6 meq/ Calcium Gluconate 10 meq/ Multivitamins 5 ml/Zinc/Copper/ Manganese/ Selenium 1 ml/ Total Parenteral Nutrition/Amino Acids/Dextrose 2,040 ml @ 85 mls/hr TPN CONT IV Last administered on 02/20/21at 22:10; Start 02/20/21 at 22:00; Stop 02/21/21 at 21:59; Status DC Insulin Glargine (Lantus Syringe) 27 unit QHS SQ Last administered on 03/01/21at 21:18; Start 02/21/21 at 21:00; Stop 03/02/21 at 13:32; Status DC Magnesium Sulfate 50 ml @ 25 mls/hr 1X ONCE IV Last administered on 02/21/21at 11:30; Start 02/21/21 at 11:00; Stop 02/21/21 at 12:59; Status DC Potassium Acetate 50 meq/Potassium Phosphate 13.6 mmol/Magnesium Sulfate 8 meq/ Calcium Gluconate 10 meq/ Multivitamins 5 ml/Zinc/Copper/ Manganese/ Selenium 1 ml/ Total Parenteral Nutrition/Amino Acids/Dextrose 2,040 ml @ 85 mls/hr TPN C ONT IV Last administered on 02/21/21at 21:23; Start 02/21/21 at 22:00; Stop 02/22/21 at 21:59; Status DC Daptomycin 570 mg/ Sodium Chloride 50 ml @ 100 mls/hr Q24H IV Last administered on 02/24/21at 13:10; Start 02/22/21 at 12:00; Stop 02/25/21 at 10:34; Status DC Linezolid/Dextrose 300 ml @ 300 mls/hr Q12HR IV Last administered on 03/02/21at 08:26; Start 02/22/21 at 09:00; Stop 03/02/21 at 08:42; Status DC Potassium Acetate 50 meq/Potassium Phosphate 13.6 mmol/Magnesium Sulfate 8 meq/ Calcium Gluconate 5 meq/ Multivitamins 5 ml/Zinc/Copper/ Manganese/ Selenium 1 ml/ Total Parenteral Nutrition/Amino Acids/Dextrose 2,040 ml @ 85 mls/hr TPN CONT IV Last administered on 02/22/21at 21:32; Start 02/22/21 at 22:00; Stop 02/23/21 at 21:59; Status DC Fentanyl Citrate (Fentanyl 2ml Vial) 25 mcg PRN Q5MIN PRN IVP MILD PAIN 1-3; Start 02/23/21 at 06:00; Stop 02/24/21 at 05:59; Status DC Fentanyl Citrate (Fentanyl 2ml Vial) 50 mcg PRN Q5MIN PRN IVP MODERATE PAIN 4- 6; Start 02/23/21 at 06:00; Stop 02/24/21 at 05:59; Status DC Morphine Sulfate (Morphine Sulfate) 1 mg PRN Q10MIN PRN IVP SEVERE PAIN 7-10; Start 02/23/21 at 06:00; Stop 02/24/21 at 05:59; Status DC Ringer's Solution 1,000 ml @ 30 mls/hr Q24H IV Last administered on 02/23/21at 11:00; Start 02/23/21 at 06:00; Stop 02/23/21 at 17:59; Status DC Hydromorphone HCl (Dilaudid) 0.5 mg PRN Q10MIN PRN IVP SEVERE PAIN 7-10, 2nd CHOICE; Start 02/23/21 at 06:00; Stop 02/24/21 at 05:59; Status DC Prochlorperazine Edisylate (Compazine) 5 mg PACU PRN PRN IVP NAUSEA, MRX1; Start 02/23/21 at 06:00; Stop 02/24/21 at 05:59; Status DC Cellulose (Surgicel Fibrillar 1x2) 1 each STK-MED ONCE .ROUTE ; Start 02/23/21 at 08:23; Stop 02/23/21 at 08:23; Status DC Lidocaine/ Epinephrine (LIDOCAINE 1%-EPI 1:100,000 Multi-Dose) 20 ml STK-MED ONCE .ROUTE Last administered on 02/23/21at 13:33; Start 02/23/21 at 08:23; Stop 02/23/21 at 08:23; Status DC Potassium Acetate 50 meq/Potassium Phosphate 13.6 mmol/Magnesium Sulfate 8 meq/ Calcium Gluconate 5 meq/ Multivitamins 5 ml/Zinc/Copper/ Manganese/ Selenium 1 ml/ Total Parenteral Nutrition/Amino Acids/Dextrose 2,040 ml @ 85 mls/hr TPN CONT IV ; Start 02/23/21 at 22:00; Stop 02/24/21 at 21:59; Status DC Rocuronium [place] (Zemuron) 50 mg STK-MED ONCE .ROUTE ; Start 02/23/21 at 12:13; Stop 02/23/21 at 12:13; Status DC Fentanyl Citrate (Fentanyl 2ml Vial) 100 mcg STK-MED ONCE .ROUTE ; Start 02/23/21 at 12:24; Stop 02/23/21 at 12:24; Status DC Insulin Human Lispro (HumaLOG VIAL for OP,RR ONLY) 0-10 units PRN Q1HR PRN SQ PER PROTOCOL Last administered on 02/23/21at 13:00; Start 02/23/21 at 13:15; Stop 02/24/21 at 13:14; Status DC Rocuronium [place] (Zemuron) 100 mg STK-MED ONCE .ROUTE ; Start 02/23/21 at 13:22; Stop 02/23/21 at 13:23; Status DC Albuterol Sulfate (Ventolin Hfa) 60 puff STK-MED ONCE INH ; Start 02/23/21 at 13:47; Stop 02/23/21 at 13:48; Status DC Sevoflurane (Ultane) 60 ml STK-MED ONCE IH ; Start 02/23/21 at 14:21; Stop 02/23/21 at 14:21; Status DC Potassium Acetate 50 meq/Potassium Phosphate 13.6 mmol/Magnesium Sulfate 8 meq/ Calcium Gluconate 5 meq/ Multivitamins 5 ml/Zinc/Copper/ Manganese/ Selenium 1 ml/ Total Parenteral Nutrition/Amino Acids/Dextrose 2,040 ml @ 85 mls/hr TPN CONT IV ; Start 02/25/21 at 22:00; Stop 02/26/21 at 21:59; Status DC Potassium Acetate 50 meq/Potassium Phosphate 13.6 mmol/Magnesium Sulfate 8 meq/ Calcium Gluconate 5 meq/ Multivitamins 5 ml/Zinc/Copper/ Manganese/ Selenium 1 ml/ Total Parenteral Nutrition/Amino Acids/Dextrose 2,040 ml @ 85 mls/hr TPN CONT IV Last administered on 02/26/21at 21:27; Start 02/26/21 at 22:00; Stop 02/27/21 at 21:59; Status DC Potassium Acetate 50 meq/Potassium Phosphate 13.6 mmol/Magnesium Sulfate 8 meq/ Calcium Gluconate 5 meq/ Multivitamins 5 ml/Zinc/Copper/ Manganese/ Selenium 1 ml/ Total Parenteral Nutrition/Amino Acids/Dextrose 2,040 ml @ 85 mls/hr TPN CONT IV Last administered on 02/27/21at 21:01; Start 02/27/21 at 22:00; Stop 02/28/21 at 21:59; Status DC Potassium Acetate 50 meq/Potassium Phosphate 13.6 mmol/Magnesium Sulfate 8 meq/ Calcium Gluconate 5 meq/ Multivitamins 5 ml/Zinc/Copper/ Manganese/ Selenium 1 ml/ Total Parenteral Nutrition/Amino Acids/Dextrose 2,040 ml @ 85 mls/hr TPN CONT IV Last administered on 02/28/21at 21:44; Start 02/28/21 at 22:00; Stop 03/01/21 at 21:59; Status DC Potassium Acetate 50 meq/Potassium Phosphate 13.6 mmol/Magnesium Sulfate 8 meq/ Calcium Gluconate 5 meq/ Multivitamins 5 ml/Zinc/Copper/ Manganese/ Selenium 1 ml/ Total Parenteral Nutrition/Amino Acids/Dextrose 2,040 ml @ 85 mls/hr TPN CONT IV Last administered on 03/01/21at 21:22; Start 03/01/21 at 22:00; Stop 03/02/21 at 21:59; Status DC Potassium Acetate 50 meq/Potassium Phosphate 13.6 mmol/Magnesium Sulfate 8 meq/ Multivitamins 5 ml/Zinc/Copper/ Manganese/ Selenium 1 ml/ Total Parenteral Nutrition/Amino Acids/Dextrose 2,040 ml @ 85 mls/hr TPN CONT IV Last administered on 03/02/21at 21:11; Start 03/02/21 at 22:00; Stop 03/03/21 at 21:59; Status DC Insulin Glargine (Lantus Syringe) 35 unit QHS SQ Last administered on 03/07/21at 20:32; Start 03/02/21 at 21:00 Potassium Acetate 50 meq/Potassium Phosphate 13.6 mmol/Magnesium Sulfate 8 meq/ Multivitamins 5 ml/Zinc/Copper/ Manganese/ Selenium 1 ml/ Total Parenteral Nutrition/Amino Acids/Dextrose 1,800 ml @ 75 mls/hr TPN CONT IV Last administered on 03/03/21at 21:54; Start 03/03/21 at 22:00; Stop 03/04/21 at 21:59; Status DC Docusate Sodium (Colace Solution) 100 mg DAILY PO Last administered on 03/07/21 09:48; Start 03/03/21 at 10:00 Polyethylene Glycol (miraLAX PACKET) 17 gm DAILY PO Last administered on 09:02; Start 03/03/21 at 10:00 Potassium Acetate 40 meq/Potassium Phosphate 13.6 mmol/Magnesium Sulfate 10 meq/ Multivitamins 5 ml/Zinc/Copper/ Manganese/ Selenium 1 ml/ Total Parenteral Nutrition/Amino Acids/Dextrose 1,800 ml @ 75 mls/hr TPN CONT IV Last administered on 03/04/21at 22:16; Start 03/04/21 at 22:00; Stop 03/05/21 at 21:59; Status DC Linezolid/Dextrose 300 ml @ 300 mls/hr Q12HR IV Last administered on 03/07/21at 08:53; Start 03/05/21 at 09:00; Stop 03/07/21 at 09:45; Status DC Magnesium Sulfate 50 ml @ 25 mls/hr 1X ONCE IV Last administered on 03/05/21at 13:31; Start 03/05/21 at 14:00; Stop 03/05/21 at 15:59; Status DC Sodium Chloride 40 meq/Potassium Acetate 40 meq/ Potassium Phosphate 13.6 mmol/Magnesium Sulfate 10 meq/ Multivitamins 5 ml/Zinc/Copper/ Manganese/ Selenium 1 ml/ Total Parenteral Nutrition/Amino Acids/Dextrose 1,800 ml @ 75 mls/hr TPN CONT IV Last administered on 03/05/21at 21:20; Start 03/05/21 at 22:00; Stop 03/06/21 at 21:59; Status DC Sodium Chloride 40 meq/Potassium Acetate 40 meq/ Potassium Phosphate 13.6 mmol/Magnesium Sulfate 10 meq/ Multivitamins 5 ml/Zinc/Copper/ Manganese/ Selenium 1 ml/ Total Parenteral Nutrition/Amino Acids/Dextrose 1,800 ml @ 75 mls/hr TPN CONT IV Last administered on 03/06/21at 21:35; Start 03/06/21 at 22:00; Stop 03/07/21 at 21:59; Status DC Vecuronium [place] (Norcuron Bolus) 10 mg STK-MED ONCE IV ; Start 03/07/21 at 11:15; Stop 03/07/21 at 11:16; Status DC Vecuronium [place] (Norcuron Bolus) 10 mg 1X ONCE IV Last administered on 03/07/21at 11:59; Start 03/07/21 at 11:30; Stop 03/07/21 at 12:00; Status DC Sodium Chloride 40 meq/Potassium Acetate 40 meq/ Potassium Phosphate 13.6 mmol/Magnesium Sulfate 10 meq/ Multivitamins 5 ml/Zinc/Copper/ Manganese/ Selenium 1 ml/ Total Parenteral Nutrition/Amino Acids/Dextrose 1,800 ml @ 75 mls/hr TPN CONT IV Last administered on 03/07/21at 21:41; Start 03/07/21 at 22:00; Stop 03/08/21 at 21:59 Vitals/I & O Vital Sign - Last 24 Hours 03/07/21 03/07/21 03/07/213/21 09:45 10:00 10:30 11:00 Pulse 45 70 Resp 14 45 59 B/P (MAP) 112/68 (83) Pulse Ox 96 98 97 84 O2 Delivery Ventilator Ventilator bagged for CT transport bagged for CT transport 03/07/21 03/07/21 03/07/21 03/07/21 11:42 12:00 12:00 12:56 Pulse 88 Resp 41 B/P (MAP) 161/87 (111) Pulse Ox 94 87 96 O2 Delivery Ventilator Mechanical Ventilator Ventilator 03/07/21 03/07/21 03/07/21 03/07/21 13:00 14:00 15:00 15:41 Temp 98.0 98.0 Pulse 82 80 Resp 18 18 18 B/P (MAP) 121/78 (92) 124/74 (91) 105/67 (80) Pulse Ox 96 99 100 100 O2 Delivery Ventilator Ventilator 03/07/21 03/07/21 03/07/21 03/07/21 19:00 20:00 20:00 20:05 Temp 98.3 98.3 Pulse 62 60 Resp 16 16 B/P (MAP) 101/70 (80) 94/62 (73) Pulse Ox 100 100 99 O2 Delivery Ventilator Ventilator Mechanical Ventilator Ventilator 03/07/21 03/07/21 03/07/21 03/07/21 21:00 22:00 23:00 23:30 Pulse 60 58 58 Resp 16 16 16 B/P (MAP) 103/63 (76) 93/56 (68) 102/62 (75) Pulse Ox 100 100 100 O2 Delivery Ventilator Ventilator Ventilator Mechanical Ventilator 03/07/21 03/08/21 03/08/21 03/08/21 23:30 00:01 01:00 01:16 Temp 98.6 98.6 Pulse 61 54 Resp 16 16 B/P (MAP) 114/69 (84) 126/81 (96) Pulse Ox 100 100 100 100 O2 Delivery Ventilator Ventilator Ventilator Ventilator 03/08/21 03/08/21 03/08/21 03/08/21 02:00 02:53 03:00 04:00 Temp 98.8 98.8 Pulse 56 65 60 Resp 16 16 16 B/P (MAP) 133/79 (97) 155/91 (112) 153/92 (112) Pulse Ox 100 100 100 100 O2 Delivery Ventilator Ventilator Ventilator Ventilator 03/08/21 03/08/21 03/08/21 03/08/21 04:00 05:00 05:30 05:45 Pulse 59 Resp 16 B/P (MAP) 153/91 (111) Pulse Ox 100 100 100 O2 Delivery Mechanical Ventilator Ventilator Ventilator Ventilator 03/08/21 03/08/21 03/08/21 03/08/21 06:00 06:35 07:00 07:39 Temp 99.6 99.6 Pulse 60 66 75 Resp 12 27 B/P (MAP) 148/89 (108) 175/111 142/78 (99) Pulse Ox 100 100 100 O2 Delivery Ventilator Ventilator 03/08/21 03/08/21 08:00 08:04 Pulse 75 Resp 18 B/P (MAP) 169/92 (117) Pulse Ox 100 O2 Delivery Ventilator Mechanical Ventilator Intake and Output 03/07/21 03/07/21 03/08/21 15:00 23:00 07:00 Intake Total 120 ml 1240 ml Output Total 1275 ml 275 ml 950 ml Balance -1155 ml -275 ml 290 ml Justicifation of Admission Dx: Justifications for Admission: Justification of Admission Dx: Yes Acute Hemorrhagic Stroke: Acute Hemorrhagic Stroke LESLI ALCOCER MD Mar 08, 2021 09:04
[2021-03-08] MEDS: LABETALOL 20 MG/4 ML DISP.SYRIN. IVP PRN (09:05)
--- NOTE | 2021-03-08 09:22 | PDOC ---
PROGRESS NOTES Date of Service DATE: 03/08/21 TIME: 09:17 Assessment Large right temporo-occipital intraparenchymal bleed, most likely lobar hemorrhage from hypertension, consider venous sinus thrombosis, less likely in this location, aneurysmal bleed, head trauma (also unlikely). 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 She understands from my conversation that he has indeed had severe bilateral cerebral insults and is not been recovered. She is going to call the family today and discussed DO NOT RESUSCITATE but she does not want to think about withdrawal of care at least until patient's son can visit which may not be until 03/16. She is trying to get him to come sooner. Family is dealing with several deaths in the family. She agrees to call back later today with the decision about DO NOT RESUSCITATE Hold on PEG placement Subjective None Objective Vital Signs Date Time Temp Pulse Resp B/P (MAP) Pulse Ox O2 Delivery O2 Flow Rate FiO2 03/08/21 09:05 75 169/92 03/08/21 08:04 Mechanical Ventilator 03/08/21 08:00 18 100 03/08/21 07:00 99.6 99.6 Intake and Output 03/08/21 07:00 Intake Total 1360 ml Output Total 2500 ml Balance -1140 ml Intake Oral 120 ml IV Total 1240 ml Output Urine Total 2500 ml PHYSICAL EXAM Intubated, sedated, no response to pain, no vocalization, no following commands PERRL. EOMI. CN: no focal findings. Muscle tone: normal. Muscle strength: Not testable DTR: 1+ Plantar reflex: Silent Gait: not examined Sensory exam: Not testable. Cerebellar: Not testable Review of Relevant I have reviewed the following items neela (where applicable) has been applied. Labs Laboratory Tests Test 03/06/21 12:17 03/06/21 18:31 03/06/21 23:33 03/07/21 05:30 Glucose (Fingerstick) 214 mg/dL (70-99) 228 mg/dL (70-99) 239 mg/dL (70-99) White Blood Count 6.6 x10^3/uL (4.0-11.0) Red Blood Count 3.43 x10^6/uL (4.30-5.70) Hemoglobin 10.3 g/dL (13.0-17.5) Hematocrit 30.8 % (39.0-53.0) Mean Corpuscular Volume 90 fL (79-100) Mean Corpuscular Hemoglobin 30 pg (25-35) Mean Corpuscular Hemoglobin Concent 33 g/dL (31-37) Red Cell Distribution Width 13.7 % (11.5-14.5) Platelet Count 181 x10^3/uL (140-400) Sodium Level 137 mmol/L (136-145) Potassium Level 4.4 mmol/L (3.5-5.1) Chloride Level 102 mmol/L (98-107) Carbon Dioxide Level 29 mmol/L (21-32) Anion Gap 6 (6-14) Blood Urea Nitrogen 20 mg/dL (8-26) Creatinine 0.7 mg/dL (0.7-1.3) Estimated GFR (Cockcroft-Gault) 139.2 BUN/Creatinine Ratio 29 (6-20) Glucose Level 244 mg/dL (70-99) Calcium Level 9.2 mg/dL (8.5-10.1) Phosphorus Level 4.5 mg/dL (2.6-4.7) Magnesium Level 1.8 mg/dL (1.8-2.4) Total Bilirubin 0.5 mg/dL (0.2-1.0) Aspartate Amino Transf (AST/SGOT) 27 U/L (15-37) Alanine Aminotransferase (ALT/SGPT) 58 U/L (16-63) Alkaline Phosphatase 120 U/L (46-116) Total Protein 6.5 g/dL (6.4-8.2) Albumin 2.3 g/dL (3.4-5.0) Albumin/Globulin Ratio 0.5 (1.0-1.7) Test 03/07/21 05:31 03/07/21 12:49 03/07/21 19:06 03/07/21 23:41 Glucose (Fingerstick) 215 mg/dL (70-99) 205 mg/dL (70-99) 233 mg/dL (70-99) 190 mg/dL (70-99) Test 03/08/21 05:30 03/08/21 05:40 White Blood Count 6.9 x10^3/uL (4.0-11.0) Red Blood Count 3.47 x10^6/uL (4.30-5.70) Hemoglobin 10.3 g/dL (13.0-17.5) Hematocrit 31.7 % (39.0-53.0) Mean Corpuscular Volume 92 fL (79-100) Mean Corpuscular Hemoglobin 30 pg (25-35) Mean Corpuscular Hemoglobin Concent 33 g/dL (31-37) Red Cell Distribution Width 13.4 % (11.5-14.5) Platelet Count 180 x10^3/uL (140-400) Neutrophils (%) (Auto) 70 % (31-73) Lymphocytes (%) (Auto) 16 % (24-48) Monocytes (%) (Auto) 9 % (0-9) Eosinophils (%) (Auto) 4 % (0-3) Basophils (%) (Auto) 0 % (0-3) Neutrophils # (Auto) 4.9 x10^3/uL (1.8-7.7) Lymphocytes # (Auto) 1.1 x10^3/uL (1.0-4.8) Monocytes # (Auto) 0.6 x10^3/uL (0.0-1.1) Eosinophils # (Auto) 0.3 x10^3/uL (0.0-0.7) Basophils # (Auto) 0.0 x10^3/uL (0.0-0.2) Sodium Level 133 mmol/L (136-145) Potassium Level 4.4 mmol/L (3.5-5.1) Chloride Level 100 mmol/L (98-107) Carbon Dioxide Level 29 mmol/L (21-32) Anion Gap 4 (6-14) Blood Urea Nitrogen 25 mg/dL (8-26) Creatinine 0.7 mg/dL (0.7-1.3) Estimated GFR (Cockcroft-Gault) 139.2 Glucose Level 210 mg/dL (70-99) Calcium Level 9.3 mg/dL (8.5-10.1) Phosphorus Level 4.6 mg/dL (2.6-4.7) Magnesium Level 1.8 mg/dL (1.8-2.4) Glucose (Fingerstick) 197 mg/dL (70-99) Laboratory Tests Test 03/07/21 12:49 03/07/21 19:06 03/07/21 23:41 03/08/21 05:30 Glucose (Fingerstick) 205 mg/dL (70-99) 233 mg/dL (70-99) 190 mg/dL (70-99) White Blood Count 6.9 x10^3/uL (4.0-11.0) Red Blood Count 3.47 x10^6/uL (4.30-5.70) Hemoglobin 10.3 g/dL (13.0-17.5) Hematocrit 31.7 % (39.0-53.0) Mean Corpuscular Volume 92 fL (79-100) Mean Corpuscular Hemoglobin 30 pg (25-35) Mean Corpuscular Hemoglobin Concent 33 g/dL (31-37) Red Cell Distribution Width 13.4 % (11.5-14.5) Platelet Count 180 x10^3/uL (140-400) Neutrophils (%) (Auto) 70 % (31-73) Lymphocytes (%) (Auto) 16 % (24-48) Monocytes (%) (Auto) 9 % (0-9) Eosinophils (%) (Auto) 4 % (0-3) Basophils (%) (Auto) 0 % (0-3) Neutrophils # (Auto) 4.9 x10^3/uL (1.8-7.7) Lymphocytes # (Auto) 1.1 x10^3/uL (1.0-4.8) Monocytes # (Auto) 0.6 x10^3/uL (0.0-1.1) Eosinophils # (Auto) 0.3 x10^3/uL (0.0-0.7) Basophils # (Auto) 0.0 x10^3/uL (0.0-0.2) Sodium Level 133 mmol/L (136-145) Potassium Level 4.4 mmol/L (3.5-5.1) Chloride Level 100 mmol/L (98-107) Carbon Dioxide Level 29 mmol/L (21-32) Anion Gap 4 (6-14) Blood Urea Nitrogen 25 mg/dL (8-26) Creatinine 0.7 mg/dL (0.7-1.3) Estimated GFR (Cockcroft-Gault) 139.2 Glucose Level 210 mg/dL (70-99) Calcium Level 9.3 mg/dL (8.5-10.1) Phosphorus Level 4.6 mg/dL (2.6-4.7) Magnesium Level 1.8 mg/dL (1.8-2.4) Test 03/08/21 05:40 Glucose (Fingerstick) 197 mg/dL (70-99) Microbiology 02/23/21 Gram Stain - Final, Complete 02/23/21 Aerobic Culture - Final, Complete 02/22/21 Blood Culture - Final, Complete NO GROWTH AFTER 5 DAYS 02/22/21 Gram Stain Evaluation - Final, Complete 02/22/21 Respiratory Culture - Final, Complete Medications Current Medications Nicardipine HCl 50 mg/Sodium Chloride 250 ml @ 12.5 mls/hr CONT PRN IV SEE I/O RECORD Last administered on 02/26/21at 01:20; Start 02/09/21 at 06:15 Labetalol HCl (Normodyne Iv Push) 10 mg PRN Q2HR PRN IVP HYPERTENSION- 1ST CHOICE Last administered on 03/08/21at 09:05; Start 02/09/21 at 06:15 Lorazepam (Ativan Inj) 2 mg 1X ONCE IVP Last administered on 02/09/21at 10:54; Start 02/09/21 at 10:45; Stop 02/09/21 at 10:46; Status DC Lorazepam (Ativan Inj) 2 mg 1X ONCE IVP Last administered on 02/09/21at 11:00; Start 02/09/21 at 11:00; Stop 02/09/21 at 11:01; Status DC Fentanyl Citrate (Fentanyl 2ml Vial) 25 mcg PRN Q2HR PRN IVP MODERATE TO SEVERE PAIN Last administered on 02/09/21at 13:37; Start 02/09/21 at 13:30; Stop 02/18/21 at 22:53; Status DC Info (Review Meds) 1 ea PRN 1X PRN MC SEE COMMENTS; Start 02/09/21 at 15:00 Acetaminophen (Tylenol Supp) 650 mg PRN Q6HRS PRN MD FEVER > 100.5'F or 38'C; Start 02/09/21 at 15:00; Stop 02/11/21 at 21:12; Status DC Albuterol Sulfate (Ventolin Neb Soln) 2.5 mg PRN Q4HRS PRN NEB SHORTNESS OF BREATH; Start 02/09/21 at 15:15 Iohexol (Omnipaque 350 Mg/ml) 75 ml 1X ONCE IV Last administered on 02/09/21at 15:52; Start 02/09/21 at 15:30; Stop 02/09/21 at 15:35; Status DC Iohexol (Omnipaque 350 Mg/ml) 100 ml STK-MED ONCE .ROUTE ; Start 02/09/21 at 15:26; Stop 02/09/21 at 15:27; Status DC Info (CONTRAST GIVEN -- Rx MONITORING) 1 each PRN DAILY PRN MC SEE COMMENTS; Start 02/09/21 at 15:45; Stop 02/11/21 at 15:44; Status DC Propofol 100 ml @ As Directed STK-MED ONCE IV ; Start 02/09/21 at 15:51; Stop 02/09/21 at 15:51; Status DC Rocuronium [place] (Zemuron) 50 mg STK-MED ONCE .ROUTE ; Start 02/09/21 at 15:51; Stop 02/09/21 at 15:51; Status DC Lidocaine HCl (Lidocaine HCl 2% Abboject) 100 mg STK-MED ONCE .ROUTE ; Start 02/09/21 at 15:52; Stop 02/09/21 at 15:53; Status DC Propofol 100 ml @ 3.507 mls/ hr CONT PRN IV PER PROTOCOL Last administered on 03/08/21at 06:08; Start 02/09/21 at 16:15 Lidocaine HCl (Lidocaine HCl 2% Abboject) 100 mg 1X ONCE IV Last administered on 02/09/21at 16:17; Start 02/09/21 at 16:15; Stop 02/09/21 at 16:17; Status DC Rocuronium [place] (Zemuron) 50 mg 1X ONCE IV Last administered on 02/09/21at 16:17; Start 02/09/21 at 16:15; Stop 02/09/21 at 16:17; Status DC Rocuronium [place] (Zemuron) 100 mg STK-MED ONCE .ROUTE ; Start 02/09/21 at 16:31; Stop 02/09/21 at 16:32; Status DC Gelatin (Gelfoam Size 100) 1 each STK-MED ONCE .ROUTE Last administered on 02/09/21at 17:49; Start 02/09/21 at 16:33; Stop 02/09/21 at 16:33; Status DC Bupivacaine HCl/ Epinephrine Bitart (Sensorcain-Epi 0.5%-1:[id number] Mpf) 30 ml STK-MED ONCE .ROUTE Last administered on 02/09/21 17:49; Start 02/09/21 at 16:33; Stop 02/09/21 at 16:33; Status DC Cellulose (Surgicel Hemostat 4x8) 1 each STK-MED ONCE .ROUTE Last administered on 02/09/21at 18:38; Start 02/09/21 at 16:33; Stop 02/09/21 at 16:33; Status DC Thrombin 20,000 unit STK-MED ONCE TP Last administered on 02/09/21at 17:49; Start 02/09/21 at 16:33; Stop 02/09/21 at 16:33; Status DC Fentanyl Citrate (Fentanyl 2ml Vial) 75 mcg 1X ONCE IVP Last administered on 02/09/21at 16:45; Start 02/09/21 at 16:45; Stop 02/09/21 at 16:47; Status DC Propofol (Diprivan) 200 mg 1X ONCE IV ; Start 02/09/21 at 17:15; Stop 02/09/21 at 17:16; Status DC Lidocaine HCl (Lidocaine HCl 2% Abboject) 100 mg 1X ONCE IV ; Start 02/09/21 at 17:15; Stop 02/09/21 at 17:16; Status DC Rocuronium [place] (Zemuron) 50 mg 1X ONCE IV ; Start 02/09/21 at 17:15; Stop 02/09/21 at 17:16; Status DC Propofol 100 ml @ 0 mls/hr CONT PRN PRN IV SEDATION; Start 02/09/21 at 17:15; Stop 02/10/21 at 05:14; Status DC Cefazolin Sodium (Ancef) 1 gm STK-MED ONCE IVP ; Start 02/09/21 at 17:28; Stop 02/09/21 at 17:28; Status DC Fentanyl Citrate (Fentanyl 2ml Vial) 100 mcg STK-MED ONCE .ROUTE ; Start 02/09/21 at 17:43; Stop 02/09/21 at 17:43; Status DC Rocuronium [place] (Zemuron) 100 mg STK-MED ONCE .ROUTE ; Start 02/09/21 at 17:58; Stop 02/09/21 at 17:59; Status DC Vecuronium [place] (Norcuron Bolus) 10 mg STK-MED ONCE IV ; Start 02/09/21 at 18:49; Stop 02/09/21 at 18:50; Status DC Sodium Chloride (SODIUM CHLORIDE 20ml) 20 ml STK-MED ONCE IJ ; Start 02/09/21 at 18:50; Stop 02/09/21 at 18:50; Status DC Sevoflurane (Ultane) 90 ml STK-MED ONCE IH ; Start 02/09/21 at 19:20; Stop 02/09/21 at 19:21; Status DC Fentanyl Citrate 30 ml @ 2.5 mls/hr CONT PRN IV SEE PROTOCOL Last administered on 02/09/21at 23:40; Start 02/09/21 at 23:15; Stop 02/10/21 at 04:43; Status DC Fentanyl Citrate 55 ml @ 0 mls/hr CONT PRN IV SEE I/O Last administered on 03/08/21at 02:35; Start 02/10/21 at 05:00 Potassium Chloride/Dextrose/ Sod Cl 1,000 ml @ 80 mls/hr [id number] IV ; Start 02/10/21 at 09:00; Stop 02/10/21 at 13:21; Status DC Pantoprazole Sodium (PROTONIX VIAL for IV PUSH) 40 mg DAILYAC IVP Last administered on 03/08/21at 09:01; Start 02/10/21 at 09:00 Lidocaine HCl (Buffered Lidocaine 1%) 3 ml STK-MED ONCE .ROUTE ; Start 02/10/21 at 13:18; Stop 02/10/21 at 13:18; Status DC Sodium Chloride 1,000 ml @ 80 mls/hr [id number] IV Last administered on 02/12/21at 03:00; Start 02/10/21 at 13:30; Stop 02/12/21 at 15:36; Status DC Lidocaine HCl (Buffered Lidocaine 1%) 6 ml 1X ONCE INJ Last administered on 02/10/21at 13:57; Start 02/10/21 at 13:45; Stop 02/10/21 at 13:46; Status DC Potassium Chloride/Water 100 ml @ 100 mls/hr Q1H IV Last administered on 02/11/21at 10:07; Start 02/11/21 at 08:00; Stop 02/11/21 at 09:59; Status DC Piperacillin Sod/ Tazobactam Sod 3.375 gm/Sodium Chloride 50 ml @ 100 mls/hr Q6HRS IV Last administered on 03/07/21at 05:35; Start 02/11/21 at 09:00; Stop 03/07/21 at 09:45; Status DC Info (Tpn Per Pharmacy) 1 each PRN DAILY PRN MC SEE COMMENTS Last administered on 03/06/21at 14:47; Start 02/11/21 at 11:15 Sodium Chloride 90 meq/Potassium Chloride 50 meq/ Potassium Phosphate 13.6 mmol/Magnesium Sulfate 10 meq/ Calcium Gluconate 10 meq/ Multivitamins 5 ml/Zinc/Copper/ Manganese/ Selenium 1 ml/ Total Parenteral Nutrition/Amino Acids/Dextrose 1,512 ml @ 63 mls/hr TPN CONT IV Last administered on 02/11/21at 22:32; Start 02/11/21 at 22:00; Stop 02/12/21 at 21:59; Status DC Furosemide (Lasix) 20 mg 1X ONCE IVP Last administered on 02/11/21at 15:11; Start 02/11/21 at 15:30; Stop 02/11/21 at 15:31; Status DC Furosemide (Lasix) 20 mg 1X ONCE IVP Last administered on 02/11/21at 17:00; Start 02/11/21 at 17:00; Stop 02/11/21 at 17:01; Status DC Midazolam HCl 100 ml @ 1 mls/hr CONT PRN IV SEE PROTOCOL Last administered on 02/13/21at 20:58; Start 02/11/21 at 19:30 Acetaminophen (Tylenol Supp) 650 mg PRN Q6HRS PRN MD MILD PAIN / TEMP > 100.3'F; Start 02/11/21 at 21:15 Sodium Chloride 80 meq/Potassium Chloride 50 meq/ Potassium Phosphate 13.6 mmol /Magnesium Sulfate 6 meq/ Calcium Gluconate 10 meq/ Multivitamins 5 ml/Zinc/Copper/ Manganese/ Selenium 1 ml/ Total Parenteral Nutrition/Amino Acids/Dextrose 1,512 ml @ 63 mls/hr TPN CONT IV Last administered on 02/12/21at 22:09; Start 02/12/21 at 22:00; Stop 02/13/21 at 21:59; Status DC Furosemide (Lasix) 40 mg 1X ONCE IVP Last administered on 02/12/21at 12:44; Start 02/12/21 at 12:30; Stop 02/12/21 at 12:31; Status DC Insulin Human Lispro (HumaLOG) 0-5 UNITS Q6HRS SQ Last administered on 03/08/21at 05:42; Start 02/12/21 at 12:00 Dextrose (Dextrose 50%-Water Syringe) 12.5 gm PRN Q15MIN PRN IV SEE COMMENTS; Start 02/12/21 at 12:15 Clonidine HCl (Catapres Tts-3) 1 patch WEEKLY TD Last administered on 03/06/21at 09:07; Start 02/13/21 at 11:00 Sodium Chloride 80 meq/Potassium Chloride 50 meq/ Potassium Phosphate 13.6 mmol/Magnesium Sulfate 6 meq/ Calcium Gluconate 10 meq/ Multivitamins 5 ml/Zinc/Copper/ Manganese/ Selenium 1 ml/ Total Parenteral Nutrition/Amino Acids/Dextrose 1,512 ml @ 63 mls/hr TPN CONT IV Last administered on 02/13/21at 21:42; Start 02/13/21 at 22:00; Stop 02/14/21 at 21:59; Status DC Potassium Acetate 50 meq/Potassium Phosphate 13.6 mmol/Magnesium Sulfate 6 meq/ Calcium Gluconate 10 meq/ Multivitamins 5 ml/Zinc/Copper/ Manganese/ Selenium 1 ml/ Total Parenteral Nutrition/Amino Acids/Dextrose 1,512 ml @ 63 mls/hr TPN CONT IV Last administered on 02/14/21at 21:59; Start 02/14/21 at 22:00; Stop 02/15/21 at 21:59; Status DC Insulin Glargine (Lantus Syringe) 10 unit QHS SQ Last administered on 02/15/21at 22:11; Start 02/14/21 at 21:00; Stop 02/16/21 at 12:42; Status DC Hydralazine HCl (Apresoline Inj) 10 mg PRN Q4HRS PRN IVP ELEVATED BP, SEE COMMENTS Last administered on 03/08/21at 06:35; Start 02/14/21 at 16:00 Potassium Acetate 50 meq/Potassium Phosphate 13.6 mmol/Magnesium Sulfate 6 meq/ Calcium Gluconate 10 meq/ Multivitamins 5 ml/Zinc/Copper/ Manganese/ Selenium 1 ml/ Total Parenteral Nutrition/Amino Acids/Dextrose 1,512 ml @ 63 mls/hr TPN CONT IV Last administered on 02/15/21at 22:13; Start 02/15/21 at 22:00; Stop 02/16/21 at 21:59; Status DC Dexmedetomidine HCl 400 mcg/ Sodium Chloride 100 ml @ 0 mls/hr CONT PRN IV PER PROTOCOL Last administered on 03/08/21at 09:02; Start 02/15/21 at 14:15 Sodium Chloride 500 ml @ 500 mls/hr 1X PRN PRN IV SEE COMMENTS; Start 02/15/21 at 14:15 Atropine Sulfate (ATROPINE 0.5mg SYRINGE) 0.5 mg PRN Q5MIN PRN IV SEE COMMENTS; Start 02/15/21 at 14:15 Potassium Acetate 50 meq/Potassium Phosphate 13.6 mmol/Magnesium Sulfate 6 meq/ Calcium Gluconate 10 meq/ Multivitamins 5 ml/Zinc/Copper/ Manganese/ Selenium 1 ml/ Total Parenteral Nutrition/Amino Acids/Dextrose 1,512 ml @ 63 mls/hr TPN CONT IV Last administered on 02/16/21at 22:59; Start 02/16/21 at 22:00; Stop 02/17/21 at 21:59; Status DC Insulin Glargine (Lantus Syringe) 14 unit QHS SQ Last administered on 02/16/21at 21:14; Start 02/16/21 at 21:00; Stop 02/17/21 at 14:15; Status DC Potassium Acetate 50 meq/Potassium Phosphate 13.6 mmol/Magnesium Sulfate 6 meq/ Calcium Gluconate 10 meq/ Multivitamins 5 ml/Zinc/Copper/ Manganese/ Selenium 1 ml/ Total Parenteral Nutrition/Amino Acids/Dextrose 1,512 ml @ 63 mls/hr TPN CONT IV Last administered on 02/17/21at 20:48; Start 02/17/21 at 22:00; Stop 02/18/21 at 21:59; Status DC Dextrose 1,000 ml @ 75 mls/hr [id number] IV Last administered on 02/18/21at 13:51; Start 02/17/21 at 10:30; Stop 02/19/21 at 12:57; Status DC Insulin Glargine (Lantus Syringe) 18 unit QHS SQ Last administered on 02/17/21at 20:46; Start 02/17/21 at 21:00; Stop 02/18/21 at 11:56; Status DC Insulin Glargine (Lantus Syringe) 22 unit QHS SQ Last administered on 02/18/21at 21:00; Start 02/18/21 at 21:00; Stop 02/19/21 at 14:08; Status DC Potassium Acetate 50 meq/Potassium Phosphate 13.6 mmol/Magnesium Sulfate 6 meq/ Calcium Gluconate 10 meq/ Multivitamins 5 ml/Zinc/Copper/ Manganese/ Selenium 1 ml/ Total Parenteral Nutrition/Amino Acids/Dextrose 1,512 ml @ 63 mls/hr TPN CONT IV Last administered on 02/18/21at 21:43; Start 02/18/21 at 22:00; Stop 02/19/21 at 21:59; Status DC Potassium Acetate 50 meq/Potassium Phosphate 13.6 mmol/Magnesium Sulfate 6 meq/ Calcium Gluconate 10 meq/ Multivitamins 5 ml/Zinc/Copper/ Manganese/ Selenium 1 ml/ Total Parenteral Nutrition/Amino Acids/Dextrose 2,040 ml @ 85 mls/hr TPN CONT IV Last administered on 02/19/21at 20:56; Start 02/19/21 at 22:00; Stop 02/20/21 at 21:59; Status DC Insulin Glargine (Lantus Syringe) 25 unit QHS SQ Last administered on 02/20/21at 22:11; Start 02/19/21 at 21:00; Stop 02/21/21 at 10:10; Status DC Acetaminophen (Tylenol) 650 mg PRN Q6HRS PRN PEG MILD PAIN / TEMP > 100.3'F Last administered on 03/08/21at 09:01; Start 02/19/21 at 18:00 Potassium Acetate 50 meq/Potassium Phosphate 13.6 mmol/Magnesium Sulfate 6 meq/ Calcium Gluconate 10 meq/ Multivitamins 5 ml/Zinc/Copper/ Manganese/ Selenium 1 ml/ Total Parenteral Nutrition/Amino Acids/Dextrose 2,040 ml @ 85 mls/hr TPN CONT IV Last administered on 02/20/21at 22:10; Start 02/20/21 at 22:00; Stop 02/21/21 at 21:59; Status DC Insulin Glargine (Lantus Syringe) 27 unit QHS SQ Last administered on 03/01/21at 21:18; Start 02/21/21 at 21:00; Stop 03/02/21 at 13:32; Status DC Magnesium Sulfate 50 ml @ 25 mls/hr 1X ONCE IV Last administered on 02/21/21at 11:30; Start 02/21/21 at 11:00; Stop 02/21/21 at 12:59; Status DC Potassium Acetate 50 meq/Potassium Phosphate 13.6 mmol/Magnesium Sulfate 8 meq/ Calcium Gluconate 10 meq/ Multivitamins 5 ml/Zinc/Copper/ Manganese/ Selenium 1 ml/ Total Parenteral Nutrition/Amino Acids/Dextrose 2,040 ml @ 85 mls/hr TPN CONT IV Last administered on 02/21/21at 21:23; Start 02/21/21 at 22:00; Stop 02/22/21 at 21:59; Status DC Daptomycin 570 mg/ Sodium Chloride 50 ml @ 100 mls/hr Q24H IV Last administered on 02/24/21at 13:10; Start 02/22/21 at 12:00; Stop 02/25/21 at 10:34; Status DC Linezolid/Dextrose 300 ml @ 300 mls/hr Q12HR IV Last administered on 03/02/21at 08:26; Start 02/22/21 at 09:00; Stop 03/02/21 at 08:42; Status DC Potassium Acetate 50 meq/Potassium Phosphate 13.6 mmol/Magnesium Sulfate 8 meq/ Calcium Gluconate 5 meq/ Multivitamins 5 ml/Zinc/Copper/ Manganese/ Selenium 1 ml/ Total Parenteral Nutrition/Amino Acids/Dextrose 2,040 ml @ 85 mls/hr TPN CONT IV Last administered on 02/22/21at 21:32; Start 02/22/21 at 22:00; Stop 02/23/21 at 21:59; Status DC Fentanyl Citrate (Fentanyl 2ml Vial) 25 mcg PRN Q5MIN PRN IVP MILD PAIN 1-3; Start 02/23/21 at 06:00; Stop 02/24/21 at 05:59; Status DC Fentanyl Citrate (Fentanyl 2ml Vial) 50 mcg PRN Q5MIN PRN IVP MODERATE PAIN 4- 6; Start 02/23/21 at 06:00; Stop 02/24/21 at 05:59; Status DC Morphine Sulfate (Morphine Sulfate) 1 mg PRN Q10MIN PRN IVP SEVERE PAIN 7-10; Start 02/23/21 at 06:00; Stop 02/24/21 at 05:59; Status DC Ringer's Solution 1,000 ml @ 30 mls/hr Q24H IV Last administered on 02/23/21at 11:00; Start 02/23/21 at 06:00; Stop 02/23/21 at 17:59; Status DC Hydromorphone HCl (Dilaudid) 0.5 mg PRN Q10MIN PRN IVP SEVERE PAIN 7-10, 2nd CHOICE; Start 02/23/21 at 06:00; Stop 02/24/21 at 05:59; Status DC Prochlorperazine Edisylate (Compazine) 5 mg PACU PRN PRN IVP NAUSEA, MRX1; Start 02/23/21 at 06:00; Stop 02/24/21 at 05:59; Status DC Cellulose (Surgicel Fibrillar 1x2) 1 each STK-MED ONCE .ROUTE ; Start 02/23/21 at 08:23; Stop 02/23/21 at 08:23; Status DC Lidocaine/ Epinephrine (LIDOCAINE 1%-EPI 1:100,000 Multi-Dose) 20 ml STK-MED ONCE .ROUTE Last administered on 02/23/21at 13:33; Start 02/23/21 at 08:23; Stop 02/23/21 at 08:23; Status DC Potassium Acetate 50 meq/Potassium Phosphate 13.6 mmol/Magnesium Sulfate 8 meq/ Calcium Gluconate 5 meq/ Multivitamins 5 ml/Zinc/Copper/ Manganese/ Selenium 1 ml/ Total Parenteral Nutrition/Amino Acids/Dextrose 2,040 ml @ 85 mls/hr TPN CONT IV ; Start 02/23/21 at 22:00; Stop 02/24/21 at 21:59; Status DC Rocuronium [place] (Zemuron) 50 mg STK-MED ONCE .ROUTE ; Start 02/23/21 at 12:13; Stop 02/23/21 at 12:13; Status DC Fentanyl Citrate (Fentanyl 2ml Vial) 100 mcg STK-MED ONCE .ROUTE ; Start 02/23/21 at 12:24; Stop 02/23/21 at 12:24; Status DC Insulin Human Lispro (HumaLOG VIAL for OP,RR ONLY) 0-10 units PRN Q1HR PRN SQ PER PROTOCOL Last administered on 02/23/21at 13:00; Start 02/23/21 at 13:15; Stop 02/24/21 at 13:14; Status DC Rocuronium [place] (Zemuron) 100 mg STK-MED ONCE .ROUTE ; Start 02/23/21 at 13:22; Stop 02/23/21 at 13:23; Status DC Albuterol Sulfate (Ventolin Hfa) 60 puff STK-MED ONCE INH ; Start 02/23/21 at 13:47; Stop 02/23/21 at 13:48; Status DC Sevoflurane (Ultane) 60 ml STK-MED ONCE IH ; Start 02/23/21 at 14:21; Stop 02/23/21 at 14:21; Status DC Potassium Acetate 50 meq/Potassium Phosphate 13.6 mmol/Magnesium Sulfate 8 meq/ Calcium Gluconate 5 meq/ Multivitamins 5 ml/Zinc/Copper/ Manganese/ Selenium 1 ml/ Total Parenteral Nutrition/Amino Acids/Dextrose 2,040 ml @ 85 mls/hr TPN CONT IV ; Start 02/25/21 at 22:00; Stop 02/26/21 at 21:59; Status DC Potassium Acetate 50 meq/Potassium Phosphate 13.6 mmol/Magnesium Sulfate 8 meq/ Calcium Gluconate 5 meq/ Multivitamins 5 ml/Zinc/Copper/ Manganese/ Selenium 1 ml/ Total Parenteral Nutrition/Amino Acids/Dextrose 2,040 ml @ 85 mls/hr TPN CONT IV Last administered on 02/26/21at 21:27; Start 02/26/21 at 22:00; Stop 02/27/21 at 21:59; Status DC Potassium Acetate 50 meq/Potassium Phosphate 13.6 mmol/Magnesium Sulfate 8 meq/ Calcium Gluconate 5 meq/ Multivitamins 5 ml/Zinc/Copper/ Manganese/ Selenium 1 ml/ Total Parenteral Nutrition/Amino Acids/Dextrose 2,040 ml @ 85 mls/hr TPN CONT IV Last administered on 02/27/21at 21:01; Start 02/27/21 at 22:00; Stop 02/28/21 at 21:59; Status DC Potassium Acetate 50 meq/Potassium Phosphate 13.6 mmol/Magnesium Sulfate 8 meq/ Calcium Gluconate 5 meq/ Multivitamins 5 ml/Zinc/Copper/ Manganese/ Selenium 1 ml/ Total Parenteral Nutrition/Amino Acids/Dextrose 2,040 ml @ 85 mls/hr TPN CONT IV Last administered on 02/28/21at 21:44; Start 02/28/21 at 22:00; Stop 03/01/21 at 21:59; Status DC Potassium Acetate 50 meq/Potassium Phosphate 13.6 mmol/Magnesium Sulfate 8 meq/ Calcium Gluconate 5 meq/ Multivitamins 5 ml/Zinc/Copper/ Manganese/ Selenium 1 ml/ Total Parenteral Nutrition/Amino Acids/Dextrose 2,040 ml @ 85 mls/hr TPN CONT IV Last administered on 03/01/21at 21:22; Start 03/01/21 at 22:00; Stop 03/02/21 at 21:59; Status DC Potassium Acetate 50 meq/Potassium Phosphate 13.6 mmol/Magnesium Sulfate 8 meq/ Multivitamins 5 ml/Zinc/Copper/ Manganese/ Selenium 1 ml/ Total Parenteral Nutrition/Amino Acids/Dextrose 2,040 ml @ 85 mls/hr TPN CONT IV Last administered on 03/02/21at 21:11; Start 03/02/21 at 22:00; Stop 03/03/21 at 21:59; Status DC Insulin Glargine (Lantus Syringe) 35 unit QHS SQ Last administered on 03/07/21at 20:32; Start 03/02/21 at 21:00 Potassium Acetate 50 meq/Potassium Phosphate 13.6 mmol/Magnesium Sulfate 8 meq/ Multivitamins 5 ml/Zinc/Copper/ Manganese/ Selenium 1 ml/ Total Parenteral Nutrition/Amino Acids/Dextrose 1,800 ml @ 75 mls/hr TPN CONT IV Last administered on 03/03/21at 21:54; Start 03/03/21 at 22:00; Stop 03/04/21 at 21:59; Status DC Docusate Sodium (Colace Solution) 100 mg DAILY PO Last administered on 03/08/21at 09:00; Start 03/03/21 at 10:00 Polyethylene Glycol (miraLAX PACKET) 17 gm DAILY PO Last administered on 03/08/21at 09:02; Start 03/03/21 at 10:00 Potassium Acetate 40 meq/Potassium Phosphate 13.6 mmol/Magnesium Sulfate 10 meq/ Multivitamins 5 ml/Zinc/Copper/ Manganese/ Selenium 1 ml/ Total Parenteral Nutrition/Amino Acids/Dextrose 1,800 ml @ 75 mls/hr TPN CONT IV Last administered on 03/04/21at 22:16; Start 03/04/21 at 22:00; Stop 03/05/21 at 21:59; Status DC Linezolid/Dextrose 300 ml @ 300 mls/hr Q12HR IV Last administered on 03/07/21at 08:53; Start 03/05/21 at 09:00; Stop 03/07/21 at 09:45; Status DC Magnesium Sulfate 50 ml @ 25 mls/hr 1X ONCE IV Last administered on 03/05/21at 13:31; Start 03/05/21 at 14:00; Stop 03/05/21 at 15:59; Status DC Sodium Chloride 40 meq/Potassium Acetate 40 meq/ Potassium Phosphate 13.6 mmol/Magnesium Sulfate 10 meq/ Multivitamins 5 ml/Zinc/Copper/ Manganese/ Selenium 1 ml/ Total Parenteral Nutrition/Amino Acids/Dextrose 1,800 ml @ 75 mls/hr TPN CONT IV Last administered on 03/05/21at 21:20; Start 03/05/21 at 22:00; Stop 03/06/21 at 21:59; Status DC Sodium Chloride 40 meq/Potassium Acetate 40 meq/ Potassium Phosphate 13.6 mmol/Magnesium Sulfate 10 meq/ Multivitamins 5 ml/Zinc/Copper/ Manganese/ Selenium 1 ml/ Total Parenteral Nutrition/Amino Acids/Dextrose 1,800 ml @ 75 mls/hr TPN CONT IV Last administered on 03/06/21at 21:35; Start 03/06/21 at 22:00; Stop 03/07/21 at 21:59; Status DC Vecuronium [place] (Norcuron Bolus) 10 mg STK-MED ONCE IV ; Start 03/07/21 at 11:15; Stop 03/07/21 at 11:16; Status DC Vecuronium [place] (Norcuron Bolus) 10 mg 1X ONCE IV Last administered on 03/07/21at 11:59; Start 03/07/21 at 11:30; Stop 03/07/21 at 12:00; Status DC Sodium Chloride 40 meq/Potassium Acetate 40 meq/ Potassium Phosphate 13.6 mmol/Magnesium Sulfate 10 meq/ Multivitamins 5 ml/Zinc/Copper/ Manganese/ Selenium 1 ml/ Total Parenteral Nutrition/Amino Acids/Dextrose 1,800 ml @ 75 mls/hr TPN CONT IV Last administered on 03/07/21at 21:41; Start 03/07/21 at 22:00; Stop 03/08/21 at 21:59 Vitals/I & O Vital Sign - Last 24 Hours 03/07/21 03/07/21 03/07/21 03/07/21 09:45 10:00 10:30 11:00 Pulse 45 70 Resp 14 45 59 B/P (MAP) 112/68 (83) Pulse Ox 96 98 97 84 O2 Delivery Ventilator Ventilator bagged for CT transport bagged for CT transport 03/07/21 03/07/21 03/07/21 03/07/21 11:42 12:00 12:00 12:56 Pulse 88 Resp 41 B/P (MAP) 161/87 (111) Pulse Ox 94 87 96 O2 Delivery Ventilator Mechanical Ventilator Ventilator 03/07/21 03/07/21 03/07/21 03/07/21 13:00 14:00 15:00 15:41 Temp 98.0 98.0 Pulse 82 80 Resp 18 18 18 B/P (MAP) 121/78 (92) 124/74 (91) 105/67 (80) Pulse Ox 96 99 100 100 O2 Delivery Ventilator Ventilator 03/07/21 03/07/21 03/07/21 03/07/21 19:00 20:00 20:00 20:05 Temp 98.3 98.3 Pulse 62 60 Resp 16 16 B/P (MAP) 101/70 (80) 94/62 (73) Pulse Ox 100 100 99 O2 Delivery Ventilator Ventilator Mechanical Ventilator Ventilator 03/07/21 03/07/21 03/07/21 03/07/21 21:00 22:00 23:00 23:30 Pulse 60 58 58 Resp 16 16 16 B/P (MAP) 103/63 (76) 93/56 (68) 102/62 (75) Pulse Ox 100 100 100 O2 Delivery Ventilator Ventilator Ventilator Mechanical Ventilator 03/07/21 03/08/21 03/08/21 03/08/21 23:30 00:01 01:00 01:16 Temp 98.6 98.6 Pulse 61 54 Resp 16 16 B/P (MAP) 114/69 (84) 126/81 (96) Pulse Ox 100 100 100 100 O2 Delivery Ventilator Ventilator Ventilator Ventilator 03/08/21 03/08/21 03/08/21 03/08/21 02:00 02:53 03:00 04:00 Temp 98.8 98.8 Pulse 56 65 60 Resp 16 16 16 B/P (MAP) 133/79 (97) 155/91 (112) 153/92 (112) Pulse Ox 100 100 100 100 O2 Delivery Ventilator Ventilator Ventilator Ventilator 03/08/21 03/08/21 03/08/21 03/08/21 04:00 05:00 05:30 05:45 Pulse 59 Resp 16 B/P (MAP) 153/91 (111) Pulse Ox 100 100 100 O2 Delivery Mechanical Ventilator Ventilator Ventilator Ventilator 03/08/21 03/08/21 03/08/21 03/08/21 06:00 06:35 07:00 07:39 Temp 99.6 99.6 Pulse 60 66 75 Resp 12 27 B/P (MAP) 148/89 (108) 175/111 142/78 (99) Pulse Ox 100 100 100 O2 Delivery Ventilator Ventilator 03/08/21 03/08/21 03/08/21 08:00 08:04 09:05 Pulse 75 75 Resp 18 B/P (MAP) 169/92 (117) 169/92 Pulse Ox 100 O2 Delivery Ventilator Mechanical Ventilator Intake and Output 03/07/21 03/07/21 03/08/21 15:00 23:00 07:00 Intake Total 120 ml 1240 ml Output Total 1275 ml 275 ml 950 ml Balance -1155 ml -275 ml [address] without contrast, 03/07 HISTORY: Intracranial hemorrhage follow-up. TECHNIQUE: Computed tomographic images of the head were obtained without contrast. *One or more of the following individualized dose reduction techniques were utilized for this examination: 1. Automated exposure control. 2. Adjustment of the mA and/or kV according to patient size. 3. Use of iterative reconstruction technique. COMPARISON: 02/27/2021. FINDINGS: There has been slight interval decrease in the attenuation of an acute to subacute intraparenchymal hemorrhage centered within the right parietal, occipital and posterior temporal lobes measuring approximately 7 cm in maximum dimension with surrounding edema favoring an infarct with hemorrhagic transformation. There is stable effacement of the posterior right lateral ventricle. There is no significant midline shift. There is also an acute to subacute suspected infarct with hemorrhagic transformation within the left frontal lobe measuring approximately 4.0 cm, similar compared to the prior study. There is a stable small amount of subarachnoid blood along the cerebral convexities near the vertex. There is also a stable small amount of intraventricular hemorrhage within the dependent portion of the left lateral ventricle. There is no hydrocephalus. There are cerebral white matter changes due to chronic small vessel disease. There is cerebral volume loss. There are stable right craniotomy changes. There has been interval decrease in overlying soft tissue swelling and removal of skin warren. There is fluid throughout the mastoid air cells. There is a tiny left maxillary sinus air-fluid level. There is a right maxillary sinus mucous retention cyst. There is a nasogastric tube partially included on the [id number]. There is posterior nasopharyngeal soft tissue edema likely due to tube positioning. IMPRESSION: 1. Slight interval decrease in the attenuation of an acute to subacute intraparenchymal hemorrhage centered within the posterior right cerebral hemisphere due to evolving blood products. There is fairly stable surrounding edema and effacement of the posterior right lateral ventricle, favoring hemorrhagic transformation of a subacute infarction. 2. Stable suspected hemorrhagic infarction within the left frontal lobe and stable small amount of acute subarachnoid hemorrhage along the cerebral convexities. There is also a stable small amount of intraventricular hemorrhage. There is no convincing obstructive hydrocephalus. 3. Cerebral cerebral white matter due to chronic small vessel disease and cerebral volume loss, advanced for patient age. Justicifation of Admission Dx: Justifications for Admission: Justification of Admission Dx: Yes Acute Hemorrhagic Stroke: Acute Hemorrhagic Stroke EITAN LORENZO MD Mar 08, 2021 09:22
--- NOTE | 2021-03-08 10:52 | PDOC ---
[facility] [employer] AIDE 03/08/21 1052: PROGRESS NOTES Date of Service DATE: 03/08/21 TIME: 10:30 Subjective Subjective s/p Right occipital craniotomy with evacuation of intracerebral hematoma 02/09/21 still on sedation and PS mode of vent Objective Objective Vital Signs Date Time Temp Pulse Resp B/P (MAP) Pulse Ox O2 Delivery O2 Flow Rate FiO2 03/08/21 10:10 76 12 167/89 (115) 100 Ventilator 03/08/21 07:00 99.6 99.6 Intake and Output 03/08/21 07:00 Intake Total 1360 ml Output Total 2500 ml Balance -1140 ml Intake Oral 120 ml IV Total 1240 ml Output Urine Total 2500 ml Physical Exam General: Other (sedation, vent) Neuro: Other (pupils equal and reactive) Skin: Other (incision healed well) Plan Plan of Care continue BP control wean sedation as tolerated D/W RN Comment Review of Relevant I have reviewed the following items neela (where applicable) has been applied. Labs Laboratory Tests Test 03/06/21 12:17 03/06/21 18:31 03/06/21 23:33 03/07/21 05:30 Glucose (Fingerstick) 214 mg/dL (70-99) 228 mg/dL (70-99) 239 mg/dL (70-99) White Blood Count 6.6 x10^3/uL (4.0-11.0) Red Blood Count 3.43 x10^6/uL (4.30-5.70) Hemoglobin 10.3 g/dL (13.0-17.5) Hematocrit 30.8 % (39.0-53.0) Mean Corpuscular Volume 90 fL (79-100) Mean Corpuscular Hemoglobin 30 pg (25-35) Mean Corpuscular Hemoglobin Concent 33 g/dL (31-37) Red Cell Distribution Width 13.7 % (11.5-14.5) Platelet Count 181 x10^3/uL (140-400) Sodium Level 137 mmol/L (136-145) Potassium Level 4.4 mmol/L (3.5-5.1) Chloride Level 102 mmol/L (98-107) Carbon Dioxide Level 29 mmol/L (21-32) Anion Gap 6 (6-14) Blood Urea Nitrogen 20 mg/dL (8-26) Creatinine 0.7 mg/dL (0.7-1.3) Estimated GFR (Cockcroft-Gault) 139.2 BUN/Creatinine Ratio 29 (6-20) Glucose Level 244 mg/dL (70-99) Calcium Level 9.2 mg/dL (8.5-10.1) Phosphorus Level 4.5 mg/dL (2.6-4.7) Magnesium Level 1.8 mg/dL (1.8-2.4) Total Bilirubin 0.5 mg/dL (0.2-1.0) Aspartate Amino Transf (AST/SGOT) 27 U/L (15-37) Alanine Aminotransferase (ALT/SGPT) 58 U/L (16-63) Alkaline Phosphatase 120 U/L (46-116) Total Protein 6.5 g/dL (6.4-8.2) Albumin 2.3 g/dL (3.4-5.0) Albumin/Globulin Ratio 0.5 (1.0-1.7) Test 03/07/21 05:31 03/07/21 12:49 03/07/21 19:06 03/07/21 23:41 Glucose (Fingerstick) 215 mg/dL (70-99) 205 mg/dL (70-99) 233 mg/dL (70-99) 190 mg/dL (70-99) Test 03/08/21 05:30 03/08/21 05:40 White Blood Count 6.9 x10^3/uL (4.0-11.0) Red Blood Count 3.47 x10^6/uL (4.30-5.70) Hemoglobin 10.3 g/dL (13.0-17.5) Hematocrit 31.7 % (39.0-53.0) Mean Corpuscular Volume 92 fL (79-100) Mean Corpuscular Hemoglobin 30 pg (25-35) Mean Corpuscular Hemoglobin Concent 33 g/dL (31-37) Red Cell Distribution Width 13.4 % (11.5-14.5) Platelet Count 180 x10^3/uL (140-400) Neutrophils (%) (Auto) 70 % (31-73) Lymphocytes (%) (Auto) 16 % (24-48) Monocytes (%) (Auto) 9 % (0-9) Eosinophils (%) (Auto) 4 % (0-3) Basophils (%) (Auto) 0 % (0-3) Neutrophils # (Auto) 4.9 x10^3/uL (1.8-7.7) Lymphocytes # (Auto) 1.1 x10^3/uL (1.0-4.8) Monocytes # (Auto) 0.6 x10^3/uL (0.0-1.1) Eosinophils # (Auto) 0.3 x10^3/uL (0.0-0.7) Basophils # (Auto) 0.0 x10^3/uL (0.0-0.2) Sodium Level 133 mmol/L (136-145) Potassium Level 4.4 mmol/L (3.5-5.1) Chloride Level 100 mmol/L (98-107) Carbon Dioxide Level 29 mmol/L (21-32) Anion Gap 4 (6-14) Blood Urea Nitrogen 25 mg/dL (8-26) Creatinine 0.7 mg/dL (0.7-1.3) Estimated GFR (Cockcroft-Gault) 139.2 Glucose Level 210 mg/dL (70-99) Calcium Level 9.3 mg/dL (8.5-10.1) Phosphorus Level 4.6 mg/dL (2.6-4.7) Magnesium Level 1.8 mg/dL (1.8-2.4) Glucose (Fingerstick) 197 mg/dL (70-99) Laboratory Tests Test 03/07/21 12:49 03/07/21 19:06 03/07/21 23:41 03/08/21 05:30 Glucose (Fingerstick) 205 mg/dL (70-99) 233 mg/dL (70-99) 190 mg/dL (70-99) White Blood Count 6.9 x10^3/uL (4.0-11.0) Red Blood Count 3.47 x10^6/uL (4.30-5.70) Hemoglobin 10.3 g/dL (13.0-17.5) Hematocrit 31.7 % (39.0-53.0) Mean Corpuscular Volume 92 fL (79-100) Mean Corpuscular Hemoglobin 30 pg (25-35) Mean Corpuscular Hemoglobin Concent 33 g/dL (31-37) Red Cell Distribution Width 13.4 % (11.5-14.5) Platelet Count 180 x10^3/uL (140-400) Neutrophils (%) (Auto) 70 % (31-73) Lymphocytes (%) (Auto) 16 % (24-48) Monocytes (%) (Auto) 9 % (0-9) Eosinophils (%) (Auto) 4 % (0-3) Basophils (%) (Auto) 0 % (0-3) Neutrophils # (Auto) 4.9 x10^3/uL (1.8-7.7) Lymphocytes # (Auto) 1.1 x10^3/uL (1.0-4.8) Monocytes # (Auto) 0.6 x10^3/uL (0.0-1.1) Eosinophils # (Auto) 0.3 x10^3/uL (0.0-0.7) Basophils # (Auto) 0.0 x10^3/uL (0.0-0.2) Sodium Level 133 mmol/L (136-145) Potassium Level 4.4 mmol/L (3.5-5.1) Chloride Level 100 mmol/L (98-107) Carbon Dioxide Level 29 mmol/L (21-32) Anion Gap 4 (6-14) Blood Urea Nitrogen 25 mg/dL (8-26) Creatinine 0.7 mg/dL (0.7-1.3) Estimated GFR (Cockcroft-Gault) 139.2 Glucose Level 210 mg/dL (70-99) Calcium Level 9.3 mg/dL (8.5-10.1) Phosphorus Level 4.6 mg/dL (2.6-4.7) Magnesium Level 1.8 mg/dL (1.8-2.4) Test 03/08/21 05:40 Glucose (Fingerstick) 197 mg/dL (70-99) Microbiology 02/23/21 Gram Stain - Final, Complete 02/23/21 Aerobic Culture - Final, Complete 02/22/21 Blood Culture - Final, Complete NO GROWTH AFTER 5 DAYS 02/22/21 Gram Stain Evaluation - Final, Complete 02/22/21 Respiratory Culture - Final, Complete Medications Current Medications Nicardipine HCl 50 mg/Sodium Chloride 250 ml @ 12.5 mls/hr CONT PRN IV SEE I/O RECORD Last administered on 02/26/21at 01:20; Start 02/09/21 at 06:15 Labetalol HCl (Normodyne Iv Push) 10 mg PRN Q2HR PRN IVP HYPERTENSION- 1ST CHOICE Last administered on 03/08/21at 09:05; Start 02/09/21 at 06:15 Lorazepam (Ativan Inj) 2 mg 1X ONCE IVP Last administered on 02/09/21at 10:54; Start 02/09/21 at 10:45; Stop 02/09/21 at 10:46; Status DC Lorazepam (Ativan Inj) 2 mg 1X ONCE IVP Last administered on 02/09/21at 11:00; Start 02/09/21 at 11:00; Stop 02/09/21 at 11:01; Status DC Fentanyl Citrate (Fentanyl 2ml Vial) 25 mcg PRN Q2HR PRN IVP MODERATE TO SEVERE PAIN Last administered on 02/09/21at 13:37; Start 02/09/21 at 13:30; Stop 02/18/21 at 22:53; Status DC Info (Review Meds) 1 ea PRN 1X PRN MC SEE COMMENTS; Start 02/09/21 at 15:00 Acetaminophen (Tylenol Supp) 650 mg PRN Q6HRS PRN ND FEVER > 100.5'F or 38'C; Start 02/09/21 at 15:00; Stop 02/11/21 at 21:12; Status DC Albuterol Sulfate (Ventolin Neb Soln) 2.5 mg PRN Q4HRS PRN NEB SHORTNESS OF BREATH; Start 02/09/21 at 15:15 Iohexol (Omnipaque 350 Mg/ml) 75 ml 1X ONCE IV Last administered on 02/09/21at 15:52; Start 02/09/21 at 15:30; Stop 02/09/21 at 15:35; Status DC Iohexol (Omnipaque 350 Mg/ml) 100 ml STK-MED ONCE .ROUTE ; Start 02/09/21 at 15:26; Stop 02/09/21 at 15:27; Status DC Info (CONTRAST GIVEN -- Rx MONITORING) 1 each PRN DAILY PRN MC SEE COMMENTS; Start 02/09/21 at 15:45; Stop 02/11/21 at 15:44; Status DC Propofol 100 ml @ As Directed STK-MED ONCE IV ; Start 02/09/21 at 15:51; Stop 02/09/21 at 15:51; Status DC Rocuronium [place] (Zemuron) 50 mg STK-MED ONCE .ROUTE ; Start 02/09/21 at 15:51; Stop 02/09/21 at 15:51; Status DC Lidocaine HCl (Lidocaine HCl 2% Abboject) 100 mg STK-MED ONCE .ROUTE ; Start 02/09/21 at 15:52; Stop 02/09/21 at 15:53; Status DC Propofol 100 ml @ 3.507 mls/ hr CONT PRN IV PER PROTOCOL Last administered on 03/08/21at 06:08; Start 02/09/21 at 16:15 Lidocaine HCl (Lidocaine HCl 2% Abboject) 100 mg 1X ONCE IV Last administered on 02/09/21 16:17; Start 02/09/21 at 16:15; Stop 02/09/21 at 16:17; Status DC Rocuronium [place] (Zemuron) 50 mg 1X ONCE IV Last administered on 02/09/21 16:17; Start 02/09/21 at 16:15; Stop 02/09/21 at 16:17; Status DC Rocuronium [place] (Zemuron) 100 mg STK-MED ONCE .ROUTE ; Start 02/09/21 at 16:31; Stop 02/09/21 at 16:32; Status DC Gelatin (Gelfoam Size 100) 1 each STK-MED ONCE .ROUTE Last administered on 02/09/21 17:49; Start 02/09/21 at 16:33; Stop 02/09/21 at 16:33; Status DC Bupivacaine HCl/ Epinephrine Bitart (Sensorcain-Epi 0.5%-1:[id number] Mpf) 30 ml STK-MED ONCE .ROUTE Last administered on 02/09/21 17:49; Start 02/09/21 at 16:33; Stop 02/09/21 at 16:33; Status DC Cellulose (Surgicel Hemostat 4x8) 1 each STK-MED ONCE .ROUTE Last administered on 02/09/21 18:38; Start 02/09/21 at 16:33; Stop 02/09/21 at 16:33; Status DC Thrombin 20,000 unit STK-MED ONCE TP Last administered on 7/8/21at 17:49; Start 02/09/21 at 16:33; Stop 02/09/21 at 16:33; Status DC Fentanyl Citrate (Fentanyl 2ml Vial) 75 mcg 1X ONCE IVP Last administered on 02/09/21at 16:45; Start 02/09/21 at 16:45; Stop 02/09/21 at 16:47; Status DC Propofol (Diprivan) 200 mg 1X ONCE IV ; Start 02/09/21 at 17:15; Stop 02/09/21 at 17:16; Status DC Lidocaine HCl (Lidocaine HCl 2% Abboject) 100 mg 1X ONCE IV ; Start 02/09/21 at 17:15; Stop 02/09/21 at 17:16; Status DC Rocuronium [place] (Zemuron) 50 mg 1X ONCE IV ; Start 02/09/21 at 17:15; Stop 02/09/21 at 17:16; Status DC Propofol 100 ml @ 0 mls/hr CONT PRN PRN IV SEDATION; Start 02/09/21 at 17:15; Stop 02/10/21 at 05:14; Status DC Cefazolin Sodium (Ancef) 1 gm STK-MED ONCE IVP ; Start 02/09/21 at 17:28; Stop 02/09/21 at 17:28; Status DC Fentanyl Citrate (Fentanyl 2ml Vial) 100 mcg STK-MED ONCE .ROUTE ; Start 02/09/21 at 17:43; Stop 02/09/21 at 17:43; Status DC Rocuronium [place] (Zemuron) 100 mg STK-MED ONCE .ROUTE ; Start 02/09/21 at 17:58; Stop 02/09/21 at 17:59; Status DC Vecuronium [place] (Norcuron Bolus) 10 mg STK-MED ONCE IV ; Start 02/09/21 at 18:49; Stop 02/09/21 at 18:50; Status DC Sodium Chloride (SODIUM CHLORIDE 20ml) 20 ml STK-MED ONCE IJ ; Start 02/09/21 at 18:50; Stop 02/09/21 at 18:50; Status DC Sevoflurane (Ultane) 90 ml STK-MED ONCE IH ; Start 02/09/21 at 19:20; Stop 02/09/21 at 19:21; Status DC Fentanyl Citrate 30 ml @ 2.5 mls/hr CONT PRN IV SEE PROTOCOL Last administered on 02/09/21at 23:40; Start 02/09/21 at 23:15; Stop 02/10/21 at 04:43; Status DC Fentanyl Citrate 55 ml @ 0 mls/hr CONT PRN IV SEE I/O Last administered on 03/08/21at 02:35; Start 02/10/21 at 05:00 Potassium Chloride/Dextrose/ Sod Cl 1,000 ml @ 80 mls/hr [id number] IV ; Start 02/10/21 at 09:00; Stop 02/10/21 at 13:21; Status DC Pantoprazole Sodium (PROTONIX VIAL for IV PUSH) 40 mg DAILYAC IVP Last administered on 03/08/21at 09:01; Start 02/10/21 at 09:00 Lidocaine HCl (Buffered Lidocaine 1%) 3 ml STK-MED ONCE .ROUTE ; Start 02/10/21 at 13:18; Stop 02/10/21 at 13:18; Status DC Sodium Chloride 1,000 ml @ 80 mls/hr [id number] IV Last administered on 02/12/21at 03:00; Start 02/10/21 at 13:30; Stop 02/12/21 at 15:36; Status DC Lidocaine HCl (Buffered Lidocaine 1%) 6 ml 1X ONCE INJ Last administered on 02/10/21at 13:57; Start 02/10/21 at 13:45; Stop 02/10/21 at 13:46; Status DC Potassium Chloride/Water 100 ml @ 100 mls/hr Q1H IV Last administered on 02/11/21at 10:07; Start 02/11/21 at 08:00; Stop 02/11/21 at 09:59; Status DC Piperacillin Sod/ Tazobactam Sod 3.375 gm/Sodium Chloride 50 ml @ 100 mls/hr Q6HRS IV Last administered on 03/07/21at 05:35; Start 02/11/21 at 09:00; Stop 03/07/21 at 09:45; Status DC Info (Tpn Per Pharmacy) 1 each PRN DAILY PRN MC SEE COMMENTS Last administered on 03/06/21at 14:47; Start 02/11/21 at 11:15 Sodium Chloride 90 meq/Potassium Chloride 50 meq/ Potassium Phosphate 13.6 mm ol/Magnesium Sulfate 10 meq/ Calcium Gluconate 10 meq/ Multivitamins 5 ml/Zinc/Copper/ Manganese/ Selenium 1 ml/ Total Parenteral Nutrition/Amino Acids/Dextrose 1,512 ml @ 63 mls/hr TPN CONT IV Last administered on 02/11/21at 22:32; Start 02/11/21 at 22:00; Stop 02/12/21 at 21:59; Status DC Furosemide (Lasix) 20 mg 1X ONCE IVP Last administered on 02/11/21at 15:11; Start 02/11/21 at 15:30; Stop 02/11/21 at 15:31; Status DC Furosemide (Lasix) 20 mg 1X ONCE IVP Last administered on 02/11/21at 17:00; St art 02/11/21 at 17:00; Stop 02/11/21 at 17:01; Status DC Midazolam HCl 100 ml @ 1 mls/hr CONT PRN IV SEE PROTOCOL Last administered on 02/13/21at 20:58; Start 02/11/21 at 19:30 Acetaminophen (Tylenol Supp) 650 mg PRN Q6HRS PRN ND MILD PAIN / TEMP > 100.3' F; Start 02/11/21 at 21:15 Sodium Chloride 80 meq/Potassium Chloride 50 meq/ Potassium Phosphate 13.6 mmol/Magnesium Sulfate 6 meq/ Calcium Gluconate 10 meq/ Multivitamins 5 ml/Zinc/Copper/ Manganese/ Selenium 1 ml/ Total Parenteral Nutrition/Amino Acids/Dextrose 1,512 ml @ 63 mls/hr TPN CONT IV Last administered on 02/12/21at 22:09; Start 02/12/21 at 22:00; Stop 02/13/21 at 21:59; Status DC Furosemide (Lasix) 40 mg 1X ONCE IVP Last administered on 02/12/21at 12:44; Start 02/12/21 at 12:30; Stop 02/12/21 at 12:31; Status DC Insulin Human Lispro (HumaLOG) 0-5 UNITS Q6HRS SQ Last administered on 03/08/21at 05:42; Start 02/12/21 at 12:00 Dextrose (Dextrose 50%-Water Syringe) 12.5 gm PRN Q15MIN PRN IV SEE COMMENTS; Start 02/12/21 at 12:15 Clonidine HCl (Catapres Tts-3) 1 patch WEEKLY TD Last administered on 03/06/21at 09:07; Start 02/13/21 at 11:00 Sodium Chloride 80 meq/Potassium Chloride 50 meq/ Potassium Phosphate 13.6 mmol/Magnesium Sulfate 6 meq/ Calcium Gluconate 10 meq/ Multivitamins 5 ml/Zinc/Copper/ Manganese/ Selenium 1 ml/ Total Parenteral Nutrition/Amino Acids/Dextrose 1,512 ml @ 63 mls/hr TPN CONT IV Last administered on 02/13/21at 21:42; Start 02/13/21 at 22:00; Stop 02/14/21 at 21:59; Status DC Potassium Acetate 50 meq/Potassium Phosphate 13.6 mmol/Magnesium Sulfate 6 meq/ Calcium Gluconate 10 meq/ Multivitamins 5 ml/Zinc/Copper/ Manganese/ Selenium 1 ml/ Total Parenteral Nutrition/Amino Acids/Dextrose 1,512 ml @ 63 mls/hr TPN CONT IV Last administered on 02/14/21at 21:59; Start 02/14/21 at 22:00; Stop 02/15/21 at 21:59; Status DC Insulin Glargine (Lantus Syringe) 10 unit QHS SQ Last administered on 02/15/21at 22:11; Start 02/14/21 at 21:00; Stop 02/16/21 at 12:42; Status DC Hydralazine HCl (Apresoline Inj) 10 mg PRN Q4HRS PRN IVP ELEVATED BP, SEE COMMENTS Last administered on 03/08/21at 06:35; Start 02/14/21 at 16:00 Potassium Acetate 50 meq/Potassium Phosphate 13.6 mmol/Magnesium Sulfate 6 meq/ Calcium Gluconate 10 meq/ Multivitamins 5 ml/Zinc/Copper/ Manganese/ Selenium 1 ml/ Total Parenteral Nutrition/Amino Acids/Dextrose 1,512 ml @ 63 mls/hr TPN CONT IV Last administered on 02/15/21at 22:13; Start 02/15/21 at 22:00; Stop 02/16/21 at 21:59; Status DC Dexmedetomidine HCl 400 mcg/ Sodium Chloride 100 ml @ 0 mls/hr CONT PRN IV PER PROTOCOL Last administered on 03/08/21at 09:02; Start 02/15/21 at 14:15 Sodium Chloride 500 ml @ 500 mls/hr 1X PRN PRN IV SEE COMMENTS; Start 02/15/21 at 14:15 Atropine Sulfate (ATROPINE 0.5mg SYRINGE) 0.5 mg PRN Q5MIN PRN IV SEE COMMENTS; Start 02/15/21 at 14:15 Potassium Acetate 50 meq/Potassium Phosphate 13.6 mmol/Magnesium Sulfate 6 meq/ Calcium Gluconate 10 meq/ Multivitamins 5 ml/Zinc/Copper/ Manganese/ Selenium 1 ml/ Total Parenteral Nutrition/Amino Acids/Dextrose 1,512 ml @ 63 mls/hr TPN CONT IV Last administered on 02/16/21at 22:59; Start 02/16/21 at 22:00; Stop 02/17/21 at 21:59; Status DC Insulin Glargine (Lantus Syringe) 14 unit QHS SQ Last administered on 02/16/21at 21:14; Start 02/16/21 at 21:00; Stop 02/17/21 at 14:15; Status DC Potassium Acetate 50 meq/Potassium Phosphate 13.6 mmol/Magnesium Sulfate 6 meq/ Calcium Gluconate 10 meq/ Multivitamins 5 ml/Zinc/Copper/ Manganese/ Selenium 1 ml/ Total Parenteral Nutrition/Amino Acids/Dextrose 1,512 ml @ 63 mls/hr TPN CONT IV Last administered on 02/17/21at 20:48; Start 02/17/21 at 22:00; Stop 02/18/21 at 21:59; Status DC Dextrose 1,000 ml @ 75 mls/hr [id number] IV Last administered on 02/18/21at 13:51; Start 02/17/21 at 10:30; Stop 02/19/21 at 12:57; Status DC Insulin Glargine (Lantus Syringe) 18 unit QHS SQ Last administered on 02/17/21at 20:46; Start 02/17/21 at 21:00; Stop 02/18/21 at 11:56; Status DC Insulin Glargine (Lantus Syringe) 22 unit QHS SQ Last administered on 02/18/21at 21:00; Start 02/18/21 at 21:00; Stop 02/19/21 at 14:08; Status DC Potassium Acetate 50 meq/Potassium Phosphate 13.6 mmol/Magnesium Sulfate 6 meq/ Calcium Gluconate 10 meq/ Multivitamins 5 ml/Zinc/Copper/ Manganese/ Selenium 1 ml/ Total Parenteral Nutrition/Amino Acids/Dextrose 1,512 ml @ 63 mls/hr TPN CONT IV Last administered on 02/18/21at 21:43; Start 02/18/21 at 22:00; Stop 02/19/21 at 21:59; Status DC Potassium Acetate 50 meq/Potassium Phosphate 13.6 mmol/Magnesium Sulfate 6 meq/ Calcium Gluconate 10 meq/ Multivitamins 5 ml/Zinc/Copper/ Manganese/ Selenium 1 ml/ Total Parenteral Nutrition/Amino Acids/Dextrose 2,040 ml @ 85 mls/hr TPN CONT IV Last administered on 02/19/21at 20:56; Start 02/19/21 at 22:00; Stop 02/20/21 at 21:59; Status DC Insulin Glargine (Lantus Syringe) 25 unit QHS SQ Last administered on 02/20/21at 22:11; Start 02/19/21 at 21:00; Stop 02/21/21 at 10:10; Status DC Acetaminophen (Tylenol) 650 mg PRN Q6HRS PRN PEG MILD PAIN / TEMP > 100.3'F Last administered on 03/08/21at 09:01; Start 02/19/21 at 18:00 Potassium Acetate 50 meq/Potassium Phosphate 13.6 mmol/Magnesium Sulfate 6 meq/ Calcium Gluconate 10 meq/ Multivitamins 5 ml/Zinc/Copper/ Manganese/ Selenium 1 ml/ Total Parenteral Nutrition/Amino Acids/Dextrose 2,040 ml @ 85 mls/hr TPN CONT IV Last administered on 02/20/21at 22:10; Start 02/20/21 at 22:00; Stop 02/21/21 at 21:59; Status DC Insulin Glargine (Lantus Syringe) 27 unit QHS SQ Last administered on 03/01/21at 21:18; Start 02/21/21 at 21:00; Stop 03/02/21 at 13:32; Status DC Magnesium Sulfate 50 ml @ 25 mls/hr 1X ONCE IV Last administered on 02/21/21at 11:30; Start 02/21/21 at 11:00; Stop 02/21/21 at 12:59; Status DC Potassium Acetate 50 meq/Potassium Phosphate 13.6 mmol/Magnesium Sulfate 8 meq/ Calcium Gluconate 10 meq/ Multivitamins 5 ml/Zinc/Copper/ Manganese/ Selenium 1 ml/ Total Parenteral Nutrition/Amino Acids/Dextrose 2,040 ml @ 85 mls/hr TPN CONT IV Last administered on 02/21/21at 21:23; Start 02/21/21 at 22:00; Stop 02/22/21 at 21:59; Status DC Daptomycin 570 mg/ Sodium Chloride 50 ml @ 100 mls/hr Q24H IV Last administered on 02/24/21at 13:10; Start 02/22/21 at 12:00; Stop 02/25/21 at 10:34; Status DC Linezolid/Dextrose 300 ml @ 300 mls/hr Q12HR IV Last administered on 03/02/21at 08:26; Start 02/22/21 at 09:00; Stop 03/02/21 at 08:42; Status DC Potassium Acetate 50 meq/Potassium Phosphate 13.6 mmol/Magnesium Sulfate 8 meq/ Calcium Gluconate 5 meq/ Multivitamins 5 ml/Zinc/Copper/ Manganese/ Selenium 1 ml/ Total Parenteral Nutrition/Amino Acids/Dextrose 2,040 ml @ 85 mls/hr TPN CONT IV Last administered on 02/22/21at 21:32; Start 02/22/21 at 22:00; Stop 02/23/21 at 21:59; Status DC Fentanyl Citrate (Fentanyl 2ml Vial) 25 mcg PRN Q5MIN PRN IVP MILD PAIN 1-3; Start 02/23/21 at 06:00; Stop 02/24/21 at 05:59; Status DC Fentanyl Citrate (Fentanyl 2ml Vial) 50 mcg PRN Q5MIN PRN IVP MODERATE PAIN 4- 6; Start 02/23/21 at 06:00; Stop 02/24/21 at 05:59; Status DC Morphine Sulfate (Morphine Sulfate) 1 mg PRN Q10MIN PRN IVP SEVERE PAIN 7-10; Start 02/23/21 at 06:00; Stop 02/24/21 at 05:59; Status DC Ringer's Solution 1,000 ml @ 30 mls/hr Q24H IV Last administered on 02/23/21at 11:00; Start 02/23/21 at 06:00; Stop 02/23/21 at 17:59; Status DC Hydromorphone HCl (Dilaudid) 0.5 mg PRN Q10MIN PRN IVP SEVERE PAIN 7-10, 2nd CHOICE; Start 02/23/21 at 06:00; Stop 02/24/21 at 05:59; Status DC Prochlorperazine Edisylate (Compazine) 5 mg PACU PRN PRN IVP NAUSEA, MRX1; Start 02/23/21 at 06:00; Stop 02/24/21 at 05:59; Status DC Cellulose (Surgicel Fibrillar 1x2) 1 each STK-MED ONCE .ROUTE ; Start 02/23/21 at 08:23; Stop 02/23/21 at 08:23; Status DC Lidocaine/ Epinephrine (LIDOCAINE 1%-EPI 1:100,000 Multi-Dose) 20 ml STK-MED ONCE .ROUTE Last administered on 02/23/21at 13:33; Start 02/23/21 at 08:23; Stop 02/23/21 at 08:23; Status DC Potassium Acetate 50 meq/Potassium Phosphate 13.6 mmol/Magnesium Sulfate 8 meq/ Calcium Gluconate 5 meq/ Multivitamins 5 ml/Zinc/Copper/ Manganese/ Selenium 1 ml/ Total Parenteral Nutrition/Amino Acids/Dextrose 2,040 ml @ 85 mls/hr TPN CONT IV ; Start 02/23/21 at 22:00; Stop 02/24/21 at 21:59; Status DC Rocuronium [place] (Zemuron) 50 mg STK-MED ONCE .ROUTE ; Start 02/23/21 at 12:13; Stop 02/23/21 at 12:13; Status DC Fentanyl Citrate (Fentanyl 2ml Vial) 100 mcg STK-MED ONCE .ROUTE ; Start 02/23/21 at 12:24; Stop 02/23/21 at 12:24; Status DC Insulin Human Lispro (HumaLOG VIAL for OP,RR ONLY) 0-10 units PRN Q1HR PRN SQ PER PROTOCOL Last administered on 02/23/21at 13:00; Start 02/23/21 at 13:15; Stop 02/24/21 at 13:14; Status DC Rocuronium [place] (Zemuron) 100 mg STK-MED ONCE .ROUTE ; Start 02/23/21 at 13:22; Stop 02/23/21 at 13:23; Status DC Albuterol Sulfate (Ventolin Hfa) 60 puff STK-MED ONCE INH ; Start 02/23/21 at 13:47; Stop 02/23/21 at 13:48; Status DC Sevoflurane (Ultane) 60 ml STK-MED ONCE IH ; Start 02/23/21 at 14:21; Stop 02/23/21 at 14:21; Status DC Potassium Acetate 50 meq/Potassium Phosphate 13.6 mmol/Magnesium Sulfate 8 meq/ Calcium Gluconate 5 meq/ Multivitamins 5 ml/Zinc/Copper/ Manganese/ Selenium 1 ml/ Total Parenteral Nutrition/Amino Acids/Dextrose 2,040 ml @ 85 mls/hr TPN CONT IV ; Start 02/25/21 at 22:00; Stop 02/26/21 at 21:59; Status DC Potassium Acetate 50 meq/Potassium Phosphate 13.6 mmol/Magnesium Sulfate 8 meq/ Calcium Gluconate 5 meq/ Multivitamins 5 ml/Zinc/Copper/ Manganese/ Selenium 1 ml/ Total Parenteral Nutrition/Amino Acids/Dextrose 2,040 ml @ 85 mls/hr TPN CONT IV Last administered on 02/26/21at 21:27; Start 02/26/21 at 22:00; Stop 02/27/21 at 21:59; Status DC Potassium Acetate 50 meq/Potassium Phosphate 13.6 mmol/Magnesium Sulfate 8 meq/ Calcium Gluconate 5 meq/ Multivitamins 5 ml/Zinc/Copper/ Manganese/ Selenium 1 ml/ Total Parenteral Nutrition/Amino Acids/Dextrose 2,040 ml @ 85 mls/hr TPN CONT IV Last administered on 02/27/21at 21:01; Start 02/27/21 at 22:00; Stop 02/28/21 at 21:59; Status DC Potassium Acetate 50 meq/Potassium Phosphate 13.6 mmol/Magnesium Sulfate 8 meq/ Calcium Gluconate 5 meq/ Multivitamins 5 ml/Zinc/Copper/ Manganese/ Selenium 1 ml/ Total Parenteral Nutrition/Amino Acids/Dextrose 2,040 ml @ 85 mls/hr TPN CONT IV Last administered on 02/28/21at 21:44; Start 02/28/21 at 22:00; Stop 03/01/21 at 21:59; Status DC Potassium Acetate 50 meq/Potassium Phosphate 13.6 mmol/Magnesium Sulfate 8 meq/ Calcium Gluconate 5 meq/ Multivitamins 5 ml/Zinc/Copper/ Manganese/ Selenium 1 ml/ Total Parenteral Nutrition/Amino Acids/Dextrose 2,040 ml @ 85 mls/hr TPN CONT IV Last administered on 03/01/21at 21:22; Start 03/01/21 at 22:00; Stop 03/02/21 at 21:59; Status DC Potassium Acetate 50 meq/Potassium Phosphate 13.6 mmol/Magnesium Sulfate 8 meq/ Multivitamins 5 ml/Zinc/Copper/ Manganese/ Selenium 1 ml/ Total Parenteral Nutrition/Amino Acids/Dextrose 2,040 ml @ 85 mls/hr TPN CONT IV Last admin istered on 03/02/21at 21:11; Start 03/02/21 at 22:00; Stop 03/03/21 at 21:59; Status DC Insulin Glargine (Lantus Syringe) 35 unit QHS SQ Last administered on 03/07/21at 20:32; Start 03/02/21 at 21:00 Potassium Acetate 50 meq/Potassium Phosphate 13.6 mmol/Magnesium Sulfate 8 meq/ Multivitamins 5 ml/Zinc/Copper/ Manganese/ Selenium 1 ml/ Total Parenteral Nutrition/Amino Acids/Dextrose 1,800 ml @ 75 mls/hr TPN CONT IV Last administered on 03/03/21at 21:54; Start 03/03/21 at 22:00; Stop 03/04/21 at 21:59; Status DC Docusate Sodium (Colace Solution) 100 mg DAILY PO Last administered on 03/08/21at 09:00; Start 03/03/21 at 10:00 Polyethylene Glycol (miraLAX PACKET) 17 gm DAILY PO Last administered on 03/08/21 09:02; Start 03/03/21 at 10:00 Potassium Acetate 40 meq/Potassium Phosphate 13.6 mmol/Magnesium Sulfate 10 meq/ Multivitamins 5 ml/Zinc/Copper/ Manganese/ Selenium 1 ml/ Total Parenteral Nutrition/Amino Acids/Dextrose 1,800 ml @ 75 mls/hr TPN CONT IV Last administered on 03/04/21at 22:16; Start 03/04/21 at 22:00; Stop 03/05/21 at 21:59; Status DC Linezolid/Dextrose 300 ml @ 300 mls/hr Q12HR IV Last administered on 03/07/21at 08:53; Start 03/05/21 at 09:00; Stop 03/07/21 at 09:45; Status DC Magnesium Sulfate 50 ml @ 25 mls/hr 1X ONCE IV Last administered on 03/05/21at 13:31; Start 03/05/21 at 14:00; Stop 03/05/21 at 15:59; Status DC Sodium Chloride 40 meq/Potassium Acetate 40 meq/ Potassium Phosphate 13.6 mmol/Magnesium Sulfate 10 meq/ Multivitamins 5 ml/Zinc/Copper/ Manganese/ Selenium 1 ml/ Total Parenteral Nutrition/Amino Acids/Dextrose 1,800 ml @ 75 mls/hr TPN CONT IV Last administered on 03/05/21at 21:20; Start 03/05/21 at 22:00; Stop 03/06/21 at 21:59; Status DC Sodium Chloride 40 meq/Potassium Acetate 40 meq/ Potassium Phosphate 13.6 mmol/Magnesium Sulfate 10 meq/ Multivitamins 5 ml/Zinc/Copper/ Manganese/ Selenium 1 ml/ Total Parenteral Nutrition/Amino Acids/Dextrose 1,800 ml @ 75 mls/hr TPN CONT IV Last administered on 03/06/21at 21:35; Start 03/06/21 at 22:00; Stop 03/07/21 at 21:59; Status DC Vecuronium [place] (Norcuron Bolus) 10 mg STK-MED ONCE IV ; Start 03/07/21 at 11:15; Stop 03/07/21 at 11:16; Status DC Vecuronium [place] (Norcuron Bolus) 10 mg 1X ONCE IV Last administered on 03/07/21at 11:59; Start 03/07/21 at 11:30; Stop 03/07/21 at 12:00; Status DC Sodium Chloride 40 meq/Potassium Acetate 40 meq/ Potassium Phosphate 13.6 mmol/Magnesium Sulfate 10 meq/ Multivitamins 5 ml/Zinc/Copper/ Manganese/ Selenium 1 ml/ Total Parenteral Nutrition/Amino Acids/Dextrose 1,800 ml @ 75 mls/hr TPN CONT IV Last administered on 03/07/21at 21:41; Start 03/07/21 at 22:00; Stop 03/08/21 at 21:59 Vitals/I & O Vital Sign - Last 24 Hours 03/07/21 03/07/21 03/07/21 03/07/21 11:00 11:42 12:00 12:00 Pulse 70 88 Resp 59 41 B/P (MAP) 161/87 (111) Pulse Ox 84 94 87 O2 Delivery bagged for CT transport Ventilator Mechanical Ventilator 03/07/21 03/07/21 03/07/21 03/07/21 12:56 13:00 14:00 15:00 Temp 98.0 98.0 Pulse 82 80 Resp 18 18 18 B/P (MAP) 121/78 (92) 124/74 (91) 105/67 (80) Pulse Ox 96 96 99 100 O2 Delivery Ventilator Ventilator 03/07/21 03/07/21 03/07/21 03/07/21 15:41 19:00 20:00 20:00 Temp 98.3 98.3 Pulse 62 60 Resp 16 16 B/P (MAP) 101/70 (80) 94/62 (73) Pulse Ox 100 100 100 O2 Delivery Ventilator Ventilator Ventilator Mechanical Ventilator 03/07/21 03/07/21 03/07/21 03/07/21 20:05 21:00 22:00 23:00 Pulse 60 58 58 Resp 16 16 16 B/P (MAP) 103/63 (76) 93/56 (68) 102/62 (75) Pulse Ox 99 100 100 100 O2 Delivery Ventilator Ventilator Ventilator Ventilator 03/07/21 03/07/21 03/08/21 03/08/21 23:30 23:30 00:01 01:00 Temp 98.6 98.6 Pulse 61 54 Resp 16 16 B/P (MAP) 114/69 (84) 126/81 (96) Pulse Ox 100 100 100 O2 Delivery Mechanical Ventilator Ventilator Ventilator Ventilator 03/08/21 03/08/21 03/08/21 03/08/21 01:16 02:00 02:53 03:00 Pulse 56 65 Resp 16 16 B/P (MAP) 133/79 (97) 155/91 (112) Pulse Ox 100 100 100 100 O2 Delivery Ventilator Ventilator Ventilator Ventilator 03/08/21 03/08/21 03/08/21 03/08/21 04:00 04:00 05:00 05:30 Temp 98.8 98.8 Pulse 60 59 Resp 16 16 B/P (MAP) 153/92 (112) 153/91 (111) Pulse Ox 100 100 100 O2 Delivery Ventilator Mechanical Ventilator Ventilator Ventilator 03/08/21 03/08/21 03/08/21 03/08/21 05:45 06:00 06:35 07:00 Temp 99.6 99.6 Pulse 60 66 75 Resp 12 27 B/P (MAP) 148/89 (108) 175/111 142/78 (99) Pulse Ox 100 100 100 O2 Delivery Ventilator Ventilator 03/08/21 03/08/21 03/08/21 03/08/21 07:39 08:00 08:04 09:00 Pulse 75 75 Resp 18 16 B/P (MAP) 169/92 (117) 177/93 (121) Pulse Ox 100 100 100 O2 Delivery Ventilator Ventilator Mechanical Ventilator Ventilator 03/08/21 03/08/21 09:05 10:10 Pulse 75 76 Resp 12 B/P (MAP) 169/92 167/89 (115) Pulse Ox 100 O2 Delivery Ventilator Intake and Output 03/07/21 03/07/21 03/08/21 15:00 23:00 07:00 Intake Total 120 ml 1240 ml Output Total 1275 ml 275 ml 950 ml Balance -1155 ml -275 ml 290 ml Justifications for Admission Other Justification LUCINDA DENNY MD 03/08/21 1108: PROGRESS NOTES Plan Plan of Care Reviewed follow up CT head from -. There is slow continued evolution of parietal hemorrhagic infarct as well as left posterior frontal hemorrhagic infarct. I am very concerned about DVT/ PE in this patient however based on the CT with continued subacute SA blood I do not feel AC is safe. With intermittent fevers I would be reluctant to place IVC filter with possibility of infection. HILDA ROCK APRN Mar 08, 2021 10:52 LUCINDA DENNY MD Mar 08, 2021 11:08
[2021-03-08] MEDS: TPN PER PHARMACY MC PRN (12:13)
--- NOTE | 2021-03-08 12:15 | NUR ---
Pharmacy TPN Dosing Note S: COOPER CHAVEZ is a 61 year old M Currently receiving Central Continuous TPN started 02/11/21 B:Pertinent PMH:ILEUS, UNABLE TO START TUBE FEEDS Height: 6 feet, 2 inches Weight: 113.8 kg Current diet: NPO LABS: Sodium: 133 Potassium: 4.4 Chloride: 100 Calcium: 9.3 Corrected Calcium: 10.82 Magnesium: 1.8 CO2: 29 SCr: 0.7 Glucose: 190-210 Albumin: 2.1 AST: 35 ALT: 67 TPN FORMULA: TPN TYPE: Central Continuous AMINO ACIDS: 78 gm DEXTROSE: 160 gm SODIUM CHLORIDE: 40 mEq POTASSIUM ACETATE: 40 mEq POTASSIUM PHOSPHATE: 13.6 mmol MAGNESIUM: 10 mEq MULTIPLE VITAMIN: 5 ml TRACE ELEMENTS: 1 ml ml(s) TPN PLAN: Macros adjusted per ward supervisor rec's. Total volume/rate of TPN adjusted to reduce free water R: Change TPN per plan and ordered formula Will monitor electrolytes, glucose, and tolerance to TPN. Neelima Gentile RPH, 03/08/21 1204
--- NOTE | 2021-03-08 14:55 | NUR ---
SS following up with discharge planning. SS reviewed pt chart and discussed with pt RN. Pt is currently on the vent at 40%. COVID19 negative. Pt on TPN. Pt on Propofol and Precedex. Trach in place. Pt was unable to tolerate trach shield today. Self pay. Medicaid pending. Med Assist following. Pt's family wanting LTACH placement. Pt's family provided copy of DPOA paperwork. Med Assist notified. Pt needing active insurance prior to LTACH accepting. Not stable. SS will continue to follow for discharge planning.
[2021-03-08] MEDS ORDERED: TOTAL PARENTERAL NUTRITION IV SCH (22:00)
[2021-03-08] MEDS ORDERED: DEXTROSE 70% IV SCH (22:00)
[2021-03-08] MEDS ORDERED: [UNRECOGNIZED DRUG - OTHER] IV SCH (22:00)
[2021-03-08] MEDS ORDERED: AMINO ACID IV SCH (22:00)
[2021-03-08] MEDS: INSULIN GLARGINE SYRINGE. SQ SCH (22:12)
[2021-03-09] VITALS (24 sets, daily range): BP systolic 101–188; BP diastolic 57–99
[2021-03-09] MEDS: INSULIN LISPRO 300 UNITS/3 ML VIAL. SQ SCH ×4 (00:25→18:22)
[2021-03-09] MEDS: DEXMEDETOMIDINE 400 MCG in IV NORMAL SALINE 100ML 96 ML IV PRN ×5 (00:54→23:54)
[2021-03-09] MEDS: PROPOFOL 100 ML IV PRN ×3 (04:41→18:18)
--- NOTE | 2021-03-09 05:29 | PDOC ---
PULMONARY PROGRESS NOTES DATE: 03/09/21 TIME: 05:26 Subjective Patient remains on vent support 40% and PEEP of 5 Patient is sedated on propofol/Precedex and fentanyl Patient did not tolerate T shield yesterday No overnight concerns from nursing Afebrile Vitals Vital Signs Date Time Temp Pulse Resp B/P (MAP) Pulse Ox O2 Delivery O2 Flow Rate FiO2 03/09/21 04:00 Mechanical Ventilator 03/09/21 03:48 100 03/09/21 03:00 74 16 127/82 (97) 03/09/21 00:00 99.1 99.1 Comments ros unable to obtain intubated on vent Lungs: Clear Cardiovascular: S1, S2 Abdomen: Soft, Non-tender Extremities: No Edema Skin: Warm Labs Laboratory Tests Test 03/07/21 05:30 03/07/21 05:31 03/07/21 12:49 03/07/21 19:06 White Blood Count 6.6 x10^3/uL (4.0-11.0) Red Blood Count 3.43 x10^6/uL (4.30-5.70) Hemoglobin 10.3 g/dL (13.0-17.5) Hematocrit 30.8 % (39.0-53.0) Mean Corpuscular Volume 90 fL (79-100) Mean Corpuscular Hemoglobin 30 pg (25-35) Mean Corpuscular Hemoglobin Concent 33 g/dL (31-37) Red Cell Distribution Width 13.7 % (11.5-14.5) Platelet Count 181 x10^3/uL (140-400) Sodium Level 137 mmol/L (136-145) Potassium Level 4.4 mmol/L (3.5-5.1) Chloride Level 102 mmol/L (98-107) Carbon Dioxide Level 29 mmol/L (21-32) Anion Gap 6 (6-14) Blood Urea Nitrogen 20 mg/dL (8-26) Creatinine 0.7 mg/dL (0.7-1.3) Estimated GFR (Cockcroft-Gault) 139.2 BUN/Creatinine Ratio 29 (6-20) Glucose Level 244 mg/dL (70-99) Calcium Level 9.2 mg/dL (8.5-10.1) Phosphorus Level 4.5 mg/dL (2.6-4.7) Magnesium Level 1.8 mg/dL (1.8-2.4) Total Bilirubin 0.5 mg/dL (0.2-1.0) Aspartate Amino Transf (AST/SGOT) 27 U/L (15-37) Alanine Aminotransferase (ALT/SGPT) 58 U/L (16-63) Alkaline Phosphatase 120 U/L (46-116) Total Protein 6.5 g/dL (6.4-8.2) Albumin 2.3 g/dL (3.4-5.0) Albumin/Globulin Ratio 0.5 (1.0-1.7) Glucose (Fingerstick) 215 mg/dL (70-99) 205 mg/dL (70-99) 233 mg/dL (70-99) Test 03/07/21 23:41 03/08/21 05:30 03/08/21 05:40 03/08/21 11:10 Glucose (Fingerstick) 190 mg/dL (70-99) 197 mg/dL (70-99) 192 mg/dL (70-99) White Blood Count 6.9 x10^3/uL (4.0-11.0) Red Blood Count 3.47 x10^6/uL (4.30-5.70) Hemoglobin 10.3 g/dL (13.0-17.5) Hematocrit 31.7 % (39.0-53.0) Mean Corpuscular Volume 92 fL (79-100) Mean Corpuscular Hemoglobin 30 pg (25-35) Mean Corpuscular Hemoglobin Concent 33 g/dL (31-37) Red Cell Distribution Width 13.4 % (11.5-14.5) Platelet Count 180 x10^3/uL (140-400) Neutrophils (%) (Auto) 70 % (31-73) Lymphocytes (%) (Auto) 16 % (24-48) Monocytes (%) (Auto) 9 % (0-9) Eosinophils (%) (Auto) 4 % (0-3) Basophils (%) (Auto) 0 % (0-3) Neutrophils # (Auto) 4.9 x10^3/uL (1.8-7.7) Lymphocytes # (Auto) 1.1 x10^3/uL (1.0-4.8) Monocytes # (Auto) 0.6 x10^3/uL (0.0-1.1) Eosinophils # (Auto) 0.3 x10^3/uL (0.0-0.7) Basophils # (Auto) 0.0 x10^3/uL (0.0-0.2) Sodium Level 133 mmol/L (136-145) Potassium Level 4.4 mmol/L (3.5-5.1) Chloride Level 100 mmol/L (98-107) Carbon Dioxide Level 29 mmol/L (21-32) Anion Gap 4 (6-14) Blood Urea Nitrogen 25 mg/dL (8-26) Creatinine 0.7 mg/dL (0.7-1.3) Estimated GFR (Cockcroft-Gault) 139.2 Glucose Level 210 mg/dL (70-99) Calcium Level 9.3 mg/dL (8.5-10.1) Phosphorus Level 4.6 mg/dL (2.6-4.7) Magnesium Level 1.8 mg/dL (1.8-2.4) Test 03/08/21 18:34 03/08/21 22:09 03/09/21 00:22 Glucose (Fingerstick) 221 mg/dL (70-99) 188 mg/dL (70-99) 184 mg/dL (70-99) Laboratory Tests Test 03/08/21 05:30 03/08/21 05:40 03/08/21 11:10 03/08/21 18:34 White Blood Count 6.9 x10^3/uL (4.0-11.0) Red Blood Count 3.47 x10^6/uL (4.30-5.70) Hemoglobin 10.3 g/dL (13.0-17.5) Hematocrit 31.7 % (39.0-53.0) Mean Corpuscular Volume 92 fL (79-100) Mean Corpuscular Hemoglobin 30 pg (25-35) Mean Corpuscular Hemoglobin Concent 33 g/dL (31-37) Red Cell Distribution Width 13.4 % (11.5-14.5) Platelet Count 180 x10^3/uL (140-400) Neutrophils (%) (Auto) 70 % (31-73) Lymphocytes (%) (Auto) 16 % (24-48) Monocytes (%) (Auto) 9 % (0-9) Eosinophils (%) (Auto) 4 % (0-3) Basophils (%) (Auto) 0 % (0-3) Neutrophils # (Auto) 4.9 x10^3/uL (1.8-7.7) Lymphocytes # (Auto) 1.1 x10^3/uL (1.0-4.8) Monocytes # (Auto) 0.6 x10^3/uL (0.0-1.1) Eosinophils # (Auto) 0.3 x10^3/uL (0.0-0.7) Basophils # (Auto) 0.0 x10^3/uL (0.0-0.2) Sodium Level 133 mmol/L (136-145) Potassium Level 4.4 mmol/L (3.5-5.1) Chloride Level 100 mmol/L (98-107) Carbon Dioxide Level 29 mmol/L (21-32) Anion Gap 4 (6-14) Blood Urea Nitrogen 25 mg/dL (8-26) Creatinine 0.7 mg/dL (0.7-1.3) Estimated GFR (Cockcroft-Gault) 139.2 Glucose Level 210 mg/dL (70-99) Calcium Level 9.3 mg/dL (8.5-10.1) Phosphorus Level 4.6 mg/dL (2.6-4.7) Magnesium Level 1.8 mg/dL (1.8-2.4) Glucose (Fingerstick) 197 mg/dL (70-99) 192 mg/dL (70-99) 221 mg/dL (70-99) Test 03/08/21 22:09 03/09/21 00:22 Glucose (Fingerstick) 188 mg/dL (70-99) 184 mg/dL (70-99) Comments CXR 02/21/21 IMPRESSION: 1. Stable life support devices. 2. Improving bibasilar opacities.. CXR 02/18/21 IMPRESSION: Unchanged bibasilar opacities. Recommend follow-up to ensure resolution, particularly of focal opacities in the right lung base. CXR 02/17/21 IMPRESSION: 1. Stable life support devices. 2. Stable bibasilar opacities. 3. Stable small left pleural effusion. IMPRESSION: Chest x-ray 02/13 1. Stable support lines and tubes. 2. Severe right upper lobe predominant bullous emphysema. 3. Stable right perihilar linear atelectasis or infiltrate superimposed on diffuse interstitial prominence and small pleural effusions. Impression . IMPRESSION: 1. Acute hypoxic respiratory failure multifactorial, predominantly to intraparenchymal cerebral hematoma. Status post tracheostomy 02/[address] reveals evidence of a new moderate-sized stroke of frontal lobe, per neurology 3. Long history of tobaccoism. CT angiogram showed bullous emphysema in the upper lobes. 3. Acute kidney injury--resolved 4. Leukocytosis--resolved 5. s/p Right occipital craniotomy with evacuation of intracerebral hematoma. 02/09/21 6. Encephalopathy, multifactorial--ongoing 7. Uncontrolled hypertension 8. Fever, per ID--resolved 9. Status post tracheotomy 02/23 CT head 02/13, IMPRESSION: 1. Expected interval evolution of a right posterior temporal/occipital intraparenchymal hematoma status post decompressive craniotomy. 2. Expected evolution of a small amount of subarachnoid and intraventricular clot. DATE OF SURGERY: 02/09/2021 PREOPERATIVE DIAGNOSIS: Right posterior temporoparietal occipital intracerebral hemorrhage with neurologic deterioration. POSTOPERATIVE DIAGNOSIS: Right posterior temporoparietal occipital intracerebral hemorrhage with neurologic deterioration. OPERATION PERFORMED: Right occipital craniotomy with evacuation of intracerebral hematoma. Plan . Updated 03/09/21 This morning patient was noted to have paradoxical breathing while on pressure support mode. Patient will be placed back on assist control mode. We will restart sedation. Not an optimal candidate for weaning. Patient did not tolerate T shield yesterday as well, patient does not tolerate reduction of sedation increased respiratory rate and increased blood pressure. Follow CXR/ABG PRN--no changes Follow ID recs for ABX--remains off antibiotics Follow neuro sx recs-- s/p Right occipital craniotomy with evacuation of intracerebral hematoma 02/09/21-not safe for anticoagulation Hypertension Per PCP Continue TPN for nutritional support DVT/GI PPX-- no AC 2/2 intracerebral hematoma D/W RN and RT Pt. is FULL code, with poor prognosis . Family is coming in next week. Will discuss advance directives again. Critical care time 30 minutes Updated 03/08/21 Continue current vent support 16/500/40%/5, DC sedation and return to pressure support 10/5 at 40% if tolerates continue to proceed with trach shield Follow CXR/ABG PRN--no changes Follow ID recs for ABX--remains off antibiotics Follow neuro sx recs-- s/p Right occipital craniotomy with evacuation of intracerebral hematoma 02/09/21- Follow neurology recs--no new recommendations at this time Continue TPN for nutritional support DVT/GI PPX-- no AC 2/2 intracerebral hematoma D/W RN and RT Pt. is FULL code, with poor prognosis Critical care time 30 minutes Updated 03/07/21 Continue current vent support PS 10 and 40%, dc sedation and proceed with T shield Trach care daily and PRN Follow CXR/ABG PRN--no changes Follow ID recs for ABX--now off antibiotics Follow neuro sx recs-- s/p Right occipital craniotomy with evacuation of intracerebral hematoma 02/09/21--awaiting repeat head CT Follow neurology recs Continue TPN for nutritional support DVT/GI PPX-- no AC 2/2 intracerebral hematoma D/W RN and RT Social work for DC planning-- LTACH? Pt. is FULL code, with poor prognosis Critical care time 30 minutes RAJIV HORNE MD Mar 09, 2021 05:29
[2021-03-09 07:22] LABS: CALCIUM 8.5 mg/dL (8.5-10.1); CREATININE 0.8 mg/dL (0.7-1.3); GFR 119.3; POTASSIUM 4.6 mmol/L (3.5-5.1)
--- NOTE | 2021-03-09 07:25 | PDOC ---
Infectious Disease Note Subjective Subjective Pt intubated ,sedated ON tpn No new issues per discussion with CHELSIE CASTILLO no n/v/d/ Vital Sign Vital Signs Vital Signs Date Time Temp Pulse Resp B/P (MAP) Pulse Ox O2 Delivery O2 Flow Rate FiO2 03/09/21 04:00 Mechanical Ventilator 03/09/21 03:48 100 03/09/21 03:00 74 16 127/82 (97) 03/09/21 00:00 99.1 99.1 Physical Exam PHYSICAL EXAM GENERAL: Sedated on vent, patient is not following commands HEENT: no icterus,NGT + NECK trach present LUNGS: Decreased breath sound at bases HEART: S1, S2 bradycardia ABDOMEN: Soft, nontender, mildly distended EXTREMITIES: + edema, no cyanosis. SKIN:no gen rash NEUROLOGIC: unable to assess Right IJ taken out RT PICC Line clean Labs Lab Laboratory Tests Test 03/08/21 11:10 03/08/21 18:34 03/08/21 22:09 03/09/21 00:22 Glucose (Fingerstick) 192 mg/dL (70-99) 221 mg/dL (70-99) 188 mg/dL (70-99) 184 mg/dL (70-99) Test 03/09/21 06:30 03/09/21 06:34 Sodium Level 131 mmol/L (136-145) Potassium Level 4.6 mmol/L (3.5-5.1) Chloride Level 98 mmol/L (98-107) Carbon Dioxide Level 29 mmol/L (21-32) Anion Gap 4 (6-14) Blood Urea Nitrogen 21 mg/dL (8-26) Creatinine 0.8 mg/dL (0.7-1.3) Estimated GFR (Cockcroft-Gault) 119.3 Glucose Level 187 mg/dL (70-99) Calcium Level 8.5 mg/dL (8.5-10.1) Glucose (Fingerstick) 176 mg/dL (70-99) Micro Respiratory culture negative Objective Assessment IMPRESSION: 1. Fever. 2. Suspected aspiration. 3. Encephalopathy. 4. Intracranial bleed with mass effect, status post craniotomy and hematoma evacuation. 5. Respiratory failure. 6. Hypertension. 7. Chronic obstructive pulmonary disease. Plan Plan of Care Monitor labs and cults cont supportive care Prognosis remains very poor Neurology following Discussed with nursing staff off antibiotics will s/o , please call if questions JANE DELGADO MD Mar 09, 2021 07:25
--- NOTE | 2021-03-09 08:56 | PDOC ---
PROGRESS NOTES Date of Service: DATE: 03/09/21 TIME: 08:56 Chief Complaint Chief Complaint Respiratory failure requiring intubation Status post tracheostomy [employer] hemorrhage Status post craniotomy 02/09/2021 Obesity Aspiration Hypertension COPD Acute kidney injury Severe malnutrition History of Present Illness History of Present Illness 03/09/2021 did not tolerate T shield 8-04 Slight interval decrease in the attenuation of an acute to subacute intraparenchymal hemorrhage centered within the posterior right cerebral hemisphere due to evolving blood products. There is fairly stable surrounding edema and effacement of the posterior right lateral ventricle, favoring h emorrhagic transformation of a subacute infarction. Stable suspected hemorrhagic infarction within the left frontal lobe and stable small amount of acute subarachnoid hemorrhage along the cerebral convexities. There is also a stable small amount of intraventricular hemorrhage. There is no convincing obstructive hydrocephalus. remains on vent PS 10 and 40% family wants all measures and transfer to long-term acute care.// will need a tracheostomy and PEG Patient seen and examined in the ICU Interval development of a left frontal hypodensity concerning for subacute infarct. intubated but on spontaneous respirations 10 of pressure support with 40% FiO2 TPN hanging Moore to bedside drainage Sedated with propofol fentanyl and Dex Discussed with RN Chart reviewed remains critically ill Discontinue antibiotics 03-07 34 min cc time STATUS: ADM IN LOCATION: [address] [place] [address] 03-07 PREOPERATIVE DIAGNOSIS: Prolonged intubation and prolonged need for ventilatory support. POSTOPERATIVE DIAGNOSIS: Prolonged intubation and prolonged need for ventilatory support. PROCEDURE PERFORMED: Tracheostomy. SURGEON: Melony Avelar MD END POLISHER: LORNA Santacruz ANESTHESIA: General endotracheal anesthesia. INDICATIONS FOR SURGERY: The patient is a 61-year-old male admitted to the hospital on 02/09/2021 after suffering a stroke. The patient underwent right occipital craniotomy with evacuation of intracerebral hematoma on 02/09/2021 and he has continued to not awaken from anesthesia since that time. Due to prolonged need for ventilatory support, the decision was made for the patient to undergo a tracheostomy. After the risks, benefits and alternatives of surgery were discussed with the patient's family, an informed consent was obtained. 03/08/2021 Slight interval decrease in the attenuation of an acute to subacute intraparen chymal hemorrhage centered within the posterior right cerebral hemisphere due to evolving blood products. There is fairly stable surrounding edema and effacement of the posterior right lateral ventricle, favoring hemorrhagic transformation of a subacute infarction. Stable suspected hemorrhagic infarction within the left frontal lobe and stable small amount of acute subarachnoid hemorrhage along the cerebral convexities. There is also a stable small amount of intraventricular hemorrhage. There is no convincing obstructive hydrocephalus. remains on vent PS 10 and 40% family wants all measures and transfer to long-term acute care.// will need a tracheostomy and PEG Patient seen and examined in the ICU Interval development of a left frontal hypodensity concerning for subacute infarct. intubated but on spontaneous respirations 10 of pressure support with 40% FiO2 TPN hanging Moore to bedside drainage Sedated with propofol fentanyl and Dex Discussed with RN Chart reviewed remains critically ill Discontinue antibiotics 03-07 32 min cc time STATUS: ADM IN LOCATION: [address] [place] [address] 03-07 PREOPERATIVE DIAGNOSIS: Prolonged intubation and prolonged need for ventilatory support. POSTOPERATIVE DIAGNOSIS: Prolonged intubation and prolonged need for ventilatory support. PROCEDURE PERFORMED: Tracheostomy. SURGEON: Melony Avelar MD END POLISHER: LORNA Santacruz ANESTHESIA: General endotracheal anesthesia. INDICATIONS FOR SURGERY: The patient is a 61-year-old male admitted to the hospital on 02/09/2021 after suffering a stroke. The patient underwent right occipital craniotomy with evacuation of intracerebral hematoma on 02/09/2021 and he has continued to not awaken from anesthesia since that time. Due to prolonged need for ventilatory support, the decision was made for the patient to undergo a tracheostomy. After the risks, benefits and alternatives of surgery were discussed with the patient's family, an informed consent was obtained. 03/07/2021 Slight interval decrease in the attenuation of an acute to subacute intraparenchymal hemorrhage centered within the posterior right cerebral hemisphere due to evolving blood products. There is fairly stable surrounding edema and effacement of the posterior right lateral ventricle, favoring hemorrhagic transformation of a subacute infarction. Stable suspected hemorrhagic infarction within the left frontal lobe and stable small amount of acute subarachnoid hemorrhage along the cerebral convexities. T here is also a stable small amount of intraventricular hemorrhage. There is no convincing obstructive hydrocephalus. remains on vent PS 10 and 40% family wants all measures and transfer to long-term acute care.// will need a tracheostomy and PEG Patient seen and examined in the ICU Interval development of a left frontal hypodensity concerning for subacute infarct. intubated but on spontaneous respirations 10 of pressure support with 40% FiO2 TPN hanging Moore to bedside drainage Sedated with propofol fentanyl and Dex Discussed with RN Chart reviewed remains critically ill Discontinue antibiotics 03-07 33 min cc time 03/06/2021 family wants all measures and transfer to long-term acute care.// will need a tracheostomy and PEG Patient seen and examined in the ICU Interval development of a left frontal hypodensity concerning for subacute infarct. intubated but on spontaneous respirations 10 of pressure support with 40% FiO2 considering starting OG feeds but still currently has TPN hanging Moore to bedside drainage Sedated with propofol fentanyl and Dex Discussed with RN Chart reviewed remains critically ill 33 min cc time 03/05/2021 Patient seen and examined in the ICU He is still intubated but on spontaneous respirations 10 of pressure support with 40% FiO2 We are considering starting OG feeds today but still currently has TPN hanging Moore to bedside drainage Sedated with propofol fentanyl and Dex Discussed with RN Chart reviewed He remains critically ill 03/04/2021 Patient seen and examined in the ICU He is currently on spontaneous respirations via tracheostomy with pressure support of 10 Discussed with RN Chart reviewed Patient still has TPN running but we are going to try to change that to OG feeds later today Sedated with fentanyl propofol and Precedex SCDs in place Moore to bedside drainage Remains critically ill 03/03/2021 Patient seen and examined in the ICU He has a clean dry intact tracheostomy Currently on spontaneous respirations with 10 of pressure support 40% FiO2 Discussed with RN Chart reviewed Has TPN hanging Sedated with fentanyl propofol and Precedex OG feeds are to suction SCDs in place Moore to bedside drainage He remains critically ill 03/02/2021 Patient seen and examined in the ICU We just changed him over to spontaneous respirations with 10 of pressure support and 40% FiO2 Discussed with RN and respiratory therapy He has been able to be on spontaneous respirations during the daytime for the past 3 days but we have placed him back on assist-control at nighttime Trach is clean and in tact Has Moore to bedside drainage SCDs in place OG is to suction Has IV TPN Has IV Zyvox Sedated with Precedex and propofol 03/01/2021 Patient seen and examined in the ICU He remains mechanically ventilated AC/16/500/40 5% with 5 of PEEP trach appears clean dry and intact He is a Moore bedside drainage Sedated with fentanyl and propofol Has TPN hanging Discussed with RN Discussed with case management Chart reviewed He remains very critically ill 02/28/2021 Patient seen and examined in the ICU He remains mechanically ventilated Has a tracheostomy in place Vent settings as follows AC/16/500/45/5 of PEEP Has SCDs in place Moore is to bedside drainage Sedated with Precedex fentanyl and propofol Has IV TPN Chart reviewed Discussed with RN He remains critically 02/27/2021 Patient seen and examined in the ICU He remains mechanically ventilated AC/16/500/40 5% with 5 of PEEP Has tracheostomy in place Has TPN running SCDs are in place Moore to bedside drainage Sedated with fentanyl and propofol Discussed with RN Chart reviewed He remains critically 02/26/2021: Low-grade fever overnight (99.6 F). On vent with FiO2 40%, PEEP 5. S/p tracheostomy 02/23. Per RN, some hypertension overnight (systolic BP 203) requiring IV nicardipine, but this has been titrated down and now able to resume as needed hydralazine. Recommend keep nicardipine on standby to maintain blood pressure <150/90 mmHg. Continue TPN but will likely need PEG tube and eventually long-term acute care. Due to low-grade fever, lines are being changed. Continue Zosyn and Zyvox, per ID. Critical care time 30 minutes spent reviewing charts, reviewing imaging, reviewing labs, and discussion with RN. 02/25/2021: Remains on vent with FiO2 40%, PEEP 5. Afebrile. Plan for follow-up CT head on Saturday. Continue Zosyn, per ID. Blood glucose well controlled. Critical care time 30 minutes spent reviewing charts, reviewing imaging, reviewing labs, and discussion with RN. 02/24/2021: Afebrile. Had tracheostomy performed yesterday. On vent with FiO2 40%, PEEP 5. Continue antibiotics, per ID. Critical care time 30 minutes reviewing labs, reviewing imaging, reviewing charts, discussed with RN. 02/23/2021: Patient remains intubated in ICU, FiO2 40%, PEEP 5. I believe plan is for trach today. Continue daptomycin, Zosyn, and Zyvox, per ID. Critical care time 30 minutes spent reviewing charts, reviewing labs, reviewing imaging, discussion with RN. 02/22/2011: Patient ange intubated in ICU. Febrile today, T-max 100.3. FiO2 40, PEEP 5. Continue treatment with Zosyn, per ID. Continue to wean sedation as tolerated. Plan for trach tomorrow. Critical care time 30 minutes spent reviewing chart, reviewing labs, imaging, and discussion with RN. 02/21/2021: Patient remains intubated in ICU, FiO2 40%, PEEP 5. Afebrile. POD #12, s/p right occipital craniotomy with evacuation of intracerebral hematoma (02/09/21). Chest x-ray today shows improving bibasilar opacities. Continue Zosyn, per ID. Critical care time 30 minutes spent reviewing charts, reviewing labs, reviewing imaging, discussion with RN. 02/20/2021: POD #11 Right occipital craniotomy with evacuation of intracerebral hematoma (02/09/21). Remains sedated on ventilator, FiO2 40%, PEEP 5. Chest x- ray from 02/18 showed unchanged bibasilar opacities; recommending follow-up to ensure resolution, particularly of focal opacities in the right lung base. Continue Zosyn. Continue supportive care. Critical care time 30 minutes spent reviewing charts, reviewing labs, reviewing imaging, discussion with RN. 02/19/2021 POD #11 Right occipital craniotomy with evacuation of intracerebral hematoma sedated on vent Patient seen and examined at bedside Continue antibiotics per infectious disease Weaning ventilator and sedation as tolerated extubation in the next few days Plan of care discussed with bedside nurse Expected interval evolution of a right posterior temporal/occipital intraparenchymal hematoma status post decompressive craniotomy Large right temporo-occipital intraparenchymal bleed, most likely lobar hemorrhage from hypertension, consider venous sinus thrombosis, less likely in this location, aneurysmal bleed, head trauma (also unlikely). craniotomy 02/09 evening Suspect of aspiration, respiratory failure, hypertension, chronic obstructive pulmonary disease, improving acute kidney injury cont Zosyn glucose uncontrolled add Lantus 22 UNITS SQ HS elevated troponin suspect stress induced ischemia 36 MIN CC TIME 02/18/2021 POD #10 Right occipital craniotomy with evacuation of intracerebral hematoma sedated on vent Patient seen and examined at bedside Continue antibiotics per infectious disease Weaning ventilator and sedation as tolerated extubation in the next few days Plan of care discussed with bedside nurse Expected interval evolution of a right posterior temporal/occipital intraparenchymal hematoma status post decompressive craniotomy Large right temporo-occipital intraparenchymal bleed, most likely lobar hemorrhage from hypertension, consider venous sinus thrombosis, less likely in this location, aneurysmal bleed, head trauma (also unlikely). Had craniotomy 7/ evening Suspect of aspiration, respiratory failure, hypertension, chronic obstructive pulmonary disease, improving acute kidney injury cont Zosyn glucose uncontrolled add Lantus 22 UNITS SQ HS 34 MIN CC TIME 02/17/2021 POD #8 Right occipital craniotomy with evacuation of intracerebral hematoma sedated on vent Patient seen and examined at bedside Good response to IV Lasix Continue antibiotics per infectious disease Weaning ventilator and sedation as tolerated extubation in the next few days Plan of care discussed with bedside nurse Expected interval evolution of a right posterior temporal/occipital intraparenchymal hematoma status post decompressive craniotomy Large right temporo-occipital intraparenchymal bleed, most likely lobar hemorrhage from hypertension, consider venous sinus thrombosis, less likely in this location, aneurysmal bleed, head trauma (also unlikely). Had craniotomy 02/09 evening Suspect of aspiration, respiratory failure, hypertension, chronic obstructive pulmonary disease, improving acute kidney injury cont Zosyn glucose uncontrolled add Lantus 18 UNITS SQ HS 33 MIN CC TIME 02/16/2021 POD #7 Right occipital craniotomy with evacuation of intracerebral hematoma sedated on vent Patient seen and examined at bedside Good response to IV Lasix Continue antibiotics per infectious disease Weaning ventilator and sedation as tolerated extubation in the next few days Plan of care discussed with bedside nurse Expected interval evolution of a right posterior temporal/occipital intraparenchymal hematoma status post decompressive craniotomy Large right temporo-occipital intraparenchymal bleed, most likely lobar hemorrhage from hypertension, consider venous sinus thrombosis, less likely in this location, aneurysmal bleed, head trauma (also unlikely). Had craniotomy 7/ evening Suspect of aspiration, respiratory failure, hypertension, chronic obstructive pulmonary disease, improving acute kidney injury cont Zosyn glucose uncontrolled add Lantus 14 UNITS SQ HS 35 MIN CC TIME 02/15/2021 POD #6 Right occipital craniotomy with evacuation of intracerebral hematoma sedated on vent Patient seen and examined at bedside Good response to IV Lasix Continue antibiotics per infectious disease Weaning ventilator and sedation as tolerated Hopeful extubation in the next few days Plan of care discussed with bedside nurse Expected interval evolution of a right posterior temporal/occipital intraparenchymal hematoma status post decompressive craniotomy Large right temporo-occipital intraparenchymal bleed, most likely lobar hemorrhage from hypertension, consider venous sinus thrombosis, less likely in this location, aneurysmal bleed, head trauma (also unlikely). Had craniotomy 02/09 evening Suspect of aspiration, respiratory failure, hypertension, chronic obstructive pulmonary disease, improving acute kidney injury cont Zosyn glucose uncontrolled add Lantus 35 MIN CC TIME 02/14/2021 POD #5 Right occipital craniotomy with evacuation of intracerebral hematoma sedated on vent Patient seen and examined at bedside Good response to IV Lasix Continue antibiotics per infectious disease Weaning ventilator and sedation as tolerated Hopeful extubation in the next few days Plan of care discussed with bedside nurse Expected interval evolution of a right posterior temporal/occipital intraparenchymal hematoma status post decompressive craniotomy Large right temporo-occipital intraparenchymal bleed, most likely lobar hemorrhage from hypertension, consider venous sinus thrombosis, less likely in this location, aneurysmal bleed, head trauma (also unlikely). Had craniotomy 02/09 evening Suspect of aspiration, respiratory failure, hypertension, chronic obstructive pulmonary disease, improving acute kidney injury cont Zosyn glucose uncontrolled add Lantus 35 MIN CC TIME 02/13/2021 POD #4 Right occipital craniotomy with evacuation of intracerebral hematoma sedated on vent Patient seen and examined at bedside Good response to IV Lasix Continue antibiotics per infectious disease Weaning ventilator and sedation as tolerated Hopeful extubation in the next few days Plan of care discussed with bedside nurse Expected interval evolution of a right posterior temporal/occipital intraparenchymal hematoma status post decompressive craniotomy Large right temporo-occipital intraparenchymal bleed, most likely lobar hemorrh age from hypertension, consider venous sinus thrombosis, less likely in this location, aneurysmal bleed, head trauma (also unlikely). Had craniotomy 02/09 evening Suspect of aspiration, respiratory failure, hypertension, chronic obstructive pulmonary disease, improving acute kidney injury cont Zosyn 35 MIN CC TIME 02/12/2021 Patient seen and examined at bedside Remains intubated and sedated Good response to IV Lasix yesterday had nearly 3 L out; will diurese again today Continue antibiotics per infectious disease Weaning ventilator and sedation as tolerated Hopeful extubation in the next few days Plan of care discussed with bedside nurse 02/11/2021 Patient seen and examined at bedside No major clinical changes overnight however this morning patient has largely increased amount of secretions Chest x-ray concerning for possible pneumonia, will consult ID who recommended starting Zosyn Otherwise he remains intubated and sedated We will follow subspecialist input Plan discussed with bedside RN 02/10/2021 Patient seen and examined at bedside Underwent craniotomy yesterday due to unresponsiveness in the late afternoon; was also intubated Continues to have a poor neurologic status Neurology and neurosurgery following Discussed plan of care with bedside nurse Patient is a 61-year-old male transferred for to the ICU overnight due to hypertensive emergency and intracranial hemorrhage. Patient's mother at bedside provides most the history. She reports that patient had been in his usual state of health until yesterday morning when he reported feeling tired and having a headache. Patient mother reports he normally gets up early and goes outside however this was not the case yesterday. With this headache he took BC powder and went back to bed. Patient's mother reports that he was in and out of bed throughout most of the afternoon. Says patient did not eat anything yesterday which is very unusual for him. Approximately 1130 last night she had the patient get up to go to the bathroom and heard him fall. He however is able to get up and returned to bed; unknown if he hit his head at this time. Patient again woke up around 2 AM and woke up his mother asking for orange juice and then proceeded to fall again, she does not think he hit his head at this time. He was taken to hospital and found to have a systolic blood pressure greater than [address] scan found to have an intracranial hemorrhage. Due to severity of his condition he was transferred here. Patient's mother reports she is not aware of any past medical history other than hypertension which he intermittently takes hydrochlorothiazide for. Vitals Vitals Vital Signs Date Time Temp Pulse Resp B/P (MAP) Pulse Ox O2 Delivery O2 Flow Rate FiO2 03/09/21 07:37 100 Ventilator 03/09/21 06:00 72 16 101/66 (78) 03/09/21 04:00 97.7 97.7 Physical Exam Physical Exam GENERAL: Sedated on vent, patient is not following commands HEENT: no icterus,NGT + NECK trach present LUNGS: Decreased breath sound at bases HEART: S1, S2 bradycardia ABDOMEN: Soft, nontender, mildly distended EXTREMITIES: + edema, no cyanosis. SKIN:no gen rash NEUROLOGIC: unable to assess Right IJ taken out RT PICC Line clean General: Other (sedation, vent) Heart: Regular rate Lungs: Clear Abdomen: Normal bowel sounds Extremities: No clubbing, No cyanosis, No edema Skin: Other (incision healed well) Labs LABS Laboratory Tests Test 03/08/21 11:10 03/08/21 18:34 03/08/21 22:09 03/09/21 00:22 Glucose (Fingerstick) 192 mg/dL (70-99) 221 mg/dL (70-99) 188 mg/dL (70-99) 184 mg/dL (70-99) Test 03/09/21 06:30 03/09/21 06:34 Sodium Level 131 mmol/L (136-145) Potassium Level 4.6 mmol/L (3.5-5.1) Chloride Level 98 mmol/L (98-107) Carbon Dioxide Level 29 mmol/L (21-32) Anion Gap 4 (6-14) Blood Urea Nitrogen 21 mg/dL (8-26) Creatinine 0.8 mg/dL (0.7-1.3) Estimated GFR (Cockcroft-Gault) 119.3 Glucose Level 187 mg/dL (70-99) Calcium Level 8.5 mg/dL (8.5-10.1) Glucose (Fingerstick) 176 mg/dL (70-99) Comment Review of Relevant I have reviewed the following items neela (where applicable) has been applied. Labs Laboratory Tests Test 03/07/21 12:49 03/07/21 19:06 03/07/21 23:41 03/08/21 05:30 Glucose (Fingerstick) 205 mg/dL (70-99) 233 mg/dL (70-99) 190 mg/dL (70-99) White Blood Count 6.9 x10^3/uL (4.0-11.0) Red Blood Count 3.47 x10^6/uL (4.30-5.70) Hemoglobin 10.3 g/dL (13.0-17.5) Hematocrit 31.7 % (39.0-53.0) Mean Corpuscular Volume 92 fL (79-100) Mean Corpuscular Hemoglobin 30 pg (25-35) Mean Corpuscular Hemoglobin Concent 33 g/dL (31-37) Red Cell Distribution Width 13.4 % (11.5-14.5) Platelet Count 180 x10^3/uL (140-400) Neutrophils (%) (Auto) 70 % (31-73) Lymphocytes (%) (Auto) 16 % (24-48) Monocytes (%) (Auto) 9 % (0-9) Eosinophils (%) (Auto) 4 % (0-3) Basophils (%) (Auto) 0 % (0-3) Neutrophils # (Auto) 4.9 x10^3/uL (1.8-7.7) Lymphocytes # (Auto) 1.1 x10^3/uL (1.0-4.8) Monocytes # (Auto) 0.6 x10^3/uL (0.0-1.1) Eosinophils # (Auto) 0.3 x10^3/uL (0.0-0.7) Basophils # (Auto) 0.0 x10^3/uL (0.0-0.2) Sodium Level 133 mmol/L (136-145) Potassium Level 4.4 mmol/L (3.5-5.1) Chloride Level 100 mmol/L (98-107) Carbon Dioxide Level 29 mmol/L (21-32) Anion Gap 4 (6-14) Blood Urea Nitrogen 25 mg/dL (8-26) Creatinine 0.7 mg/dL (0.7-1.3) Estimated GFR (Cockcroft-Gault) 139.2 Glucose Level 210 mg/dL (70-99) Calcium Level 9.3 mg/dL (8.5-10.1) Phosphorus Level 4.6 mg/dL (2.6-4.7) Magnesium Level 1.8 mg/dL (1.8-2.4) Test 03/08/21 05:40 03/08/21 11:10 03/08/21 18:34 03/08/21 22:09 Glucose (Fingerstick) 197 mg/dL (70-99) 192 mg/dL (70-99) 221 mg/dL (70-99) 188 mg/dL (70-99) Test 03/09/21 00:22 03/09/21 06:30 03/09/21 06:34 Glucose (Fingerstick) 184 mg/dL (70-99) 176 mg/dL (70-99) Sodium Level 131 mmol/L (136-145) Potassium Level 4.6 mmol/L (3.5-5.1) Chloride Level 98 mmol/L (98-107) Carbon Dioxide Level 29 mmol/L (21-32) Anion Gap 4 (6-14) Blood Urea Nitrogen 21 mg/dL (8-26) Creatinine 0.8 mg/dL (0.7-1.3) Estimated GFR (Cockcroft-Gault) 119.3 Glucose Level 187 mg/dL (70-99) Calcium Level 8.5 mg/dL (8.5-10.1) Laboratory Tests Test 03/08/21 11:10 03/08/21 18:34 03/08/21 22:09 03/09/21 00:22 Glucose (Fingerstick) 192 mg/dL (70-99) 221 mg/dL (70-99) 188 mg/dL (70-99) 184 mg/dL (70-99) Test 03/09/21 06:30 03/09/21 06:34 Sodium Level 131 mmol/L (136-145) Potassium Level 4.6 mmol/L (3.5-5.1) Chloride Level 98 mmol/L (98-107) Carbon Dioxide Level 29 mmol/L (21-32) Anion Gap 4 (6-14) Blood Urea Nitrogen 21 mg/dL (8-26) Creatinine 0.8 mg/dL (0.7-1.3) Estimated GFR (Cockcroft-Gault) 119.3 Glucose Level 187 mg/dL (70-99) Calcium Level 8.5 mg/dL (8.5-10.1) Glucose (Fingerstick) 176 mg/dL (70-99) Microbiology 02/23/21 Gram Stain - Final, Complete 02/23/21 Aerobic Culture - Final, Complete 02/22/21 Blood Culture - Final, Complete NO GROWTH AFTER 5 DAYS 02/22/21 Gram Stain Evaluation - Final, Complete 02/22/21 Respiratory Culture - Final, Complete Medications Current Medications Nicardipine HCl 50 mg/Sodium Chloride 250 ml @ 12.5 mls/hr CONT PRN IV SEE I/O RECORD Last administered on 02/26/21at 01:20; Start 02/09/21 at 06:15 Labetalol HCl (Normodyne Iv Push) 10 mg PRN Q2HR PRN IVP HYPERTENSION- 1ST CHOICE Last administered on 03/08/21at 09:05; Start 02/09/21 at 06:15 Lorazepam (Ativan Inj) 2 mg 1X ONCE IVP Last administered on 02/09/21at 10:54; Start 02/09/21 at 10:45; Stop 02/09/21 at 10:46; Status DC Lorazepam (Ativan Inj) 2 mg 1X ONCE IVP Last administered on 02/09/21at 11:00; Start 02/09/21 at 11:00; Stop 02/09/21 at 11:01; Status DC Fentanyl Citrate (Fentanyl 2ml Vial) 25 mcg PRN Q2HR PRN IVP MODERATE TO SEVERE PAIN Last administered on 02/09/21at 13:37; Start 02/09/21 at 13:30; Stop 02/18/21 at 22:53; Status DC Info (Review Meds) 1 ea PRN 1X PRN MC SEE COMMENTS; Start 02/09/21 at 15:00 Acetaminophen (Tylenol Supp) 650 mg PRN Q6HRS PRN [place] FEVER > 100.5'F or 38'C; Start 02/09/21 at 15:00; Stop 02/11/21 at 21:12; Status DC Albuterol Sulfate (Ventolin Neb Soln) 2.5 mg PRN Q4HRS PRN NEB SHORTNESS OF BREATH; Start 02/09/21 at 15:15 Iohexol (Omnipaque 350 Mg/ml) 75 ml 1X ONCE IV Last administered on 02/09/21at 15:52; Start 02/09/21 at 15:30; Stop 02/09/21 at 15:35; Status DC Iohexol (Omnipaque 350 Mg/ml) 100 ml STK-MED ONCE .ROUTE ; Start 02/09/21 at 15:26; Stop 02/09/21 at 15:27; Status DC Info (CONTRAST GIVEN -- Rx MONITORING) 1 each PRN DAILY PRN MC SEE COMMENTS; Start 02/09/21 at 15:45; Stop 02/11/21 at 15:44; Status DC Propofol 100 ml @ As Directed STK-MED ONCE IV ; Start 02/09/21 at 15:51; Stop 02/09/21 at 15:51; Status DC Rocuronium [place] (Zemuron) 50 mg STK-MED ONCE .ROUTE ; Start 02/09/21 at 15:51; Stop 02/09/21 at 15:51; Status DC Lidocaine HCl (Lidocaine HCl 2% Abboject) 100 mg STK-MED ONCE .ROUTE ; Start 02/09/21 at 15:52; Stop 02/09/21 at 15:53; Status DC Propofol 100 ml @ 3.507 mls/ hr CONT PRN IV PER PROTOCOL Last administered on 03/09/21at 04:41; Start 02/09/21 at 16:15 Lidocaine HCl (Lidocaine HCl 2% Abboject) 100 mg 1X ONCE IV Last administered on 02/09/21 16:17; Start 02/09/21 at 16:15; Stop 02/09/21 at 16:17; Status DC Rocuronium [place] (Zemuron) 50 mg 1X ONCE IV Last administered on 02/09/21 16:17; Start 02/09/21 at 16:15; Stop 02/09/21 at 16:17; Status DC Rocuronium [place] (Zemuron) 100 mg STK-MED ONCE .ROUTE ; Start 02/09/21 at 16:31; Stop 02/09/21 at 16:32; Status DC Gelatin (Gelfoam Size 100) 1 each STK-MED ONCE .ROUTE Last administered on 02/09/21 17:49; Start 02/09/21 at 16:33; Stop 02/09/21 at 16:33; Status DC Bupivacaine HCl/ Epinephrine Bitart (Sensorcain-Epi 0.5%-1:[id number] Mpf) 30 ml STK-MED ONCE .ROUTE Last administered on 02/09/21 17:49; Start 02/09/21 at 16:33; Stop 02/09/21 at 16:33; Status DC Cellulose (Surgicel Hemostat 4x8) 1 each STK-MED ONCE .ROUTE Last administered on 02/09/21 18:38; Start 02/09/21 at 16:33; Stop 02/09/21 at 16:33; Status DC Thrombin 20,000 unit STK-MED ONCE TP Last administered on 7/8/21at 17:49; Start 02/09/21 at 16:33; Stop 02/09/21 at 16:33; Status DC Fentanyl Citrate (Fentanyl 2ml Vial) 75 mcg 1X ONCE IVP Last administered on 02/09/21at 16:45; Start 02/09/21 at 16:45; Stop 02/09/21 at 16:47; Status DC Propofol (Diprivan) 200 mg 1X ONCE IV ; Start 02/09/21 at 17:15; Stop 02/09/21 at 17:16; Status DC Lidocaine HCl (Lidocaine HCl 2% Abboject) 100 mg 1X ONCE IV ; Start 02/09/21 at 17:15; Stop 02/09/21 at 17:16; Status DC Rocuronium [place] (Zemuron) 50 mg 1X ONCE IV ; Start 02/09/21 at 17:15; Stop 02/09/21 at 17:16; Status DC Propofol 100 ml @ 0 mls/hr CONT PRN PRN IV SEDATION; Start 02/09/21 at 17:15; Stop 02/10/21 at 05:14; Status DC Cefazolin Sodium (Ancef) 1 gm STK-MED ONCE IVP ; Start 02/09/21 at 17:28; Stop 02/09/21 at 17:28; Status DC Fentanyl Citrate (Fentanyl 2ml Vial) 100 mcg STK-MED ONCE .ROUTE ; Start 02/09/21 at 17:43; Stop 02/09/21 at 17:43; Status DC Rocuronium [place] (Zemuron) 100 mg STK-MED ONCE .ROUTE ; Start 02/09/21 at 17:58; Stop 02/09/21 at 17:59; Status DC Vecuronium [place] (Norcuron Bolus) 10 mg STK-MED ONCE IV ; Start 02/09/21 at 18:49; Stop 02/09/21 at 18:50; Status DC Sodium Chloride (SODIUM CHLORIDE 20ml) 20 ml STK-MED ONCE IJ ; Start 02/09/21 at 18:50; Stop 02/09/21 at 18:50; Status DC Sevoflurane (Ultane) 90 ml STK-MED ONCE IH ; Start 02/09/21 at 19:20; Stop 02/09/21 at 19:21; Status DC Fentanyl Citrate 30 ml @ 2.5 mls/hr CONT PRN IV SEE PROTOCOL Last administered on 02/09/21at 23:40; Start 02/09/21 at 23:15; Stop 02/10/21 at 04:43; Status DC Fentanyl Citrate 55 ml @ 0 mls/hr CONT PRN IV SEE I/O Last administered on 03/08/21at 02:35; Start 02/10/21 at 05:00 Potassium Chloride/Dextrose/ Sod Cl 1,000 ml @ 80 mls/hr [id number] IV ; Start 02/10/21 at 09:00; Stop 02/10/21 at 13:21; Status DC Pantoprazole Sodium (PROTONIX VIAL for IV PUSH) 40 mg DAILYAC IVP Last administered on 03/08/21at 09:01; Start 02/10/21 at 09:00 Lidocaine HCl (Buffered Lidocaine 1%) 3 ml STK-MED ONCE .ROUTE ; Start 02/10/21 at 13:18; Stop 02/10/21 at 13:18; Status DC Sodium Chloride 1,000 ml @ 80 mls/hr [id number] IV Last administered on 02/12/21at 03:00; Start 02/10/21 at 13:30; Stop 02/12/21 at 15:36; Status DC Lidocaine HCl (Buffered Lidocaine 1%) 6 ml 1X ONCE INJ Last administered on 02/10/21at 13:57; Start 02/10/21 at 13:45; Stop 02/10/21 at 13:46; Status DC Potassium Chloride/Water 100 ml @ 100 mls/hr Q1H IV Last administered on 02/11/21at 10:07; Start 02/11/21 at 08:00; Stop 02/11/21 at 09:59; Status DC Piperacillin Sod/ Tazobactam Sod 3.375 gm/Sodium Chloride 50 ml @ 100 mls/hr Q6HRS IV Last administered on 03/07/21at 05:35; Start 02/11/21 at 09:00; Stop 03/07/21 at 09:45; Status DC Info (Tpn Per Pharmacy) 1 each PRN DAILY PRN MC SEE COMMENTS Last administered on 03/08/21at 12:13; Start 02/11/21 at 11:15 Sodium Chloride 90 meq/Potassium Chloride 50 meq/ Potassium Phosphate 13.6 mmol/Magnesium Sulfate 10 meq/ Calcium Gluconate 10 meq/ Multivitamins 5 ml/Zinc/Copper/ Manganese/ Selenium 1 ml/ Total Parenteral Nutrition/Amino Acids/Dextrose 1,512 ml @ 63 mls/hr TPN CONT IV Last administered on 02/11/21at 22:32; Start 02/11/21 at 22:00; Stop 02/12/21 at 21:59; Status DC Furosemide (Lasix) 20 mg 1X ONCE IVP Last administered on 02/11/21at 15:11; Start 02/11/21 at 15:30; Stop 02/11/21 at 15:31; Status DC Furosemide (Lasix) 20 mg 1X ONCE IVP Last administered on 02/11/21at 17:00; Start 02/11/21 at 17:00; Stop 02/11/21 at 17:01; Status DC Midazolam HCl 100 ml @ 1 mls/hr CONT PRN IV SEE PROTOCOL Last administered on 02/13/21at 20:58; Start 02/11/21 at 19:30 Acetaminophen (Tylenol Supp) 650 mg PRN Q6HRS PRN [place] MILD PAIN / TEMP > 100.3'F; Start 02/11/21 at 21:15 Sodium Chloride 80 meq/Potassium Chloride 50 meq/ Potassium Phosphate 13.6 mmol/Magnesium Sulfate 6 meq/ Calcium Gluconate 10 meq/ Multivitamins 5 ml/Zinc/Copper/ Manganese/ Selenium 1 ml/ Total Parenteral Nutrition/Amino Acids/Dextrose 1,512 ml @ 63 mls/hr TPN CONT IV Last administered on 02/12/21at 22:09; Start 02/12/21 at 22:00; Stop 02/13/21 at 21:59; Status DC Furosemide (Lasix) 40 mg 1X ONCE IVP Last administered on 02/12/21at 12:44; Start 02/12/21 at 12:30; Stop 02/12/21 at 12:31; Status DC Insulin Human Lispro (HumaLOG) 0-5 UNITS Q6HRS SQ Last administered on 03/09/21at 06:39; Start 02/12/21 at 12:00 Dextrose (Dextrose 50%-Water Syringe) 12.5 gm PRN Q15MIN PRN IV SEE COMMENTS; Start 02/12/21 at 12:15 Clonidine HCl (Catapres Tts-3) 1 patch WEEKLY TD Last administered on 03/06/21at 09:07; Start 02/13/21 at 11:00 Sodium Chloride 80 meq/Potassium Chloride 50 meq/ Potassium Phosphate 13.6 mmol/Magnesium Sulfate 6 meq/ Calcium Gluconate 10 meq/ Multivitamins 5 ml/Zinc/Copper/ Manganese/ Selenium 1 ml/ Total Parenteral Nutrition/Amino Acids/Dextrose 1,512 ml @ 63 mls/hr TPN CONT IV Last administered on 02/13/21at 21:42; Start 02/13/21 at 22:00; Stop 02/14/21 at 21:59; Status DC Potassium Acetate 50 meq/Potassium Phosphate 13.6 mmol/Magnesium Sulfate 6 meq/ Calcium Gluconate 10 meq/ Multivitamins 5 ml/Zinc/Copper/ Manganese/ Selenium 1 ml/ Total Parenteral Nutrition/Amino Acids/Dextrose 1,512 ml @ 63 mls/hr TPN CONT IV Last administered on 02/14/21at 21:59; Start 02/14/21 at 22:00; Stop 02/15/21 at 21:59; Status DC Insulin Glargine (Lantus Syringe) 10 unit QHS SQ Last administered on 02/15/21at 22:11; Start 02/14/21 at 21:00; Stop 02/16/21 at 12:42; Status DC Hydralazine HCl (Apresoline Inj) 10 mg PRN Q4HRS PRN IVP ELEVATED BP, SEE COMMENTS Last administered on 03/08/21at 11:14; Start 02/14/21 at 16:00 Potassium Acetate 50 meq/Potassium Phosphate 13.6 mmol/Magnesium Sulfate 6 meq/ Calcium Gluconate 10 meq/ Multivitamins 5 ml/Zinc/Copper/ Manganese/ Selenium 1 ml/ Total Parenteral Nutrition/Amino Acids/Dextrose 1,512 ml @ 63 mls/hr TPN CONT IV Last administered on 02/15/21at 22:13; Start 02/15/21 at 22:00; Stop 02/16/21 at 21:59; Status DC Dexmedetomidine HCl 400 mcg/ Sodium Chloride 100 ml @ 0 mls/hr CONT PRN IV PER PROTOCOL Last administered on 03/09/21at 06:42; Start 02/15/21 at 14:15 Sodium Chloride 500 ml @ 500 mls/hr 1X PRN PRN IV SEE COMMENTS; Start 02/15/21 at 14:15 Atropine Sulfate (ATROPINE 0.5mg SYRINGE) 0.5 mg PRN Q5MIN PRN IV SEE COMMENTS; Start 02/15/21 at 14:15 Potassium Acetate 50 meq/Potassium Phosphate 13.6 mmol/Magnesium Sulfate 6 meq/ Calcium Gluconate 10 meq/ Multivitamins 5 ml/Zinc/Copper/ Manganese/ Selenium 1 ml/ Total Parenteral Nutrition/Amino Acids/Dextrose 1,512 ml @ 63 mls/hr TPN CONT IV Last administered on 02/16/21at 22:59; Start 02/16/21 at 22:00; Stop 02/17/21 at 21:59; Status DC Insulin Glargine (Lantus Syringe) 14 unit QHS SQ Last administered on 02/16/21at 21:14; Start 02/16/21 at 21:00; Stop 02/17/21 at 14:15; Status DC Potassium Acetate 50 meq/Potassium Phosphate 13.6 mmol/Magnesium Sulfate 6 meq/ Calcium Gluconate 10 meq/ Multivitamins 5 ml/Zinc/Copper/ Manganese/ Selenium 1 ml/ Total Parenteral Nutrition/Amino Acids/Dextrose 1,512 ml @ 63 mls/hr TPN CONT IV Last administered on 02/17/21at 20:48; Start 02/17/21 at 22:00; Stop 02/18/21 at 21:59; Status DC Dextrose 1,000 ml @ 75 mls/hr [id number] IV Last administered on 02/18/21at 13:51; Start 02/17/21 at 10:30; Stop 02/19/21 at 12:57; Status DC Insulin Glargine (Lantus Syringe) 18 unit QHS SQ Last administered on 02/17/21at 20:46; Start 02/17/21 at 21:00; Stop 02/18/21 at 11:56; Status DC Insulin Glargine (Lantus Syringe) 22 unit QHS SQ Last administered on 02/18/21at 21:00; Start 02/18/21 at 21:00; Stop 02/19/21 at 14:08; Status DC Potassium Acetate 50 meq/Potassium Phosphate 13.6 mmol/Magnesium Sulfate 6 meq/ Calcium Gluconate 10 meq/ Multivitamins 5 ml/Zinc/Copper/ Manganese/ Selenium 1 ml/ Total Parenteral Nutrition/Amino Acids/Dextrose 1,512 ml @ 63 mls/hr TPN CONT IV Last administered on 02/18/21at 21:43; Start 02/18/21 at 22:00; Stop 02/19/21 at 21:59; Status DC Potassium Acetate 50 meq/Potassium Phosphate 13.6 mmol/Magnesium Sulfate 6 meq/ Calcium Gluconate 10 meq/ Multivitamins 5 ml/Zinc/Copper/ Manganese/ Selenium 1 ml/ Total Parenteral Nutrition/Amino Acids/Dextrose 2,040 ml @ 85 mls/hr TPN CONT IV Last administered on 02/19/21at 20:56; Start 02/19/21 at 22:00; Stop 02/20/21 at 21:59; Status DC Insulin Glargine (Lantus Syringe) 25 unit QHS SQ Last administered on 02/20/21at 22:11; Start 02/19/21 at 21:00; Stop 02/21/21 at 10:10; Status DC Acetaminophen (Tylenol) 650 mg PRN Q6HRS PRN [place] MILD PAIN / TEMP > 100.3'F Last administered on 03/08/21at 09:40; Start 02/19/21 at 18:00 Potassium Acetate 50 meq/Potassium Phosphate 13.6 mmol/Magnesium Sulfate 6 meq/ Calcium Gluconate 10 meq/ Multivitamins 5 ml/Zinc/Copper/ Manganese/ Selenium 1 ml/ Total Parenteral Nutrition/Amino Acids/Dextrose 2,040 ml @ 85 mls/hr TPN CONT IV Last administered on 02/20/21at 22:10; Start 02/20/21 at 22:00; Stop 02/21/21 at 21:59; Status DC Insulin Glargine (Lantus Syringe) 27 unit QHS SQ Last administered on 03/01/21at 21:18; Start 02/21/21 at 21:00; Stop 03/02/21 at 13:32; Status DC Magnesium Sulfate 50 ml @ 25 mls/hr 1X ONCE IV Last administered on 02/21/21at 11:30; Start 02/21/21 at 11:00; Stop 02/21/21 at 12:59; Status DC Potassium Acetate 50 meq/Potassium Phosphate 13.6 mmol/Magnesium Sulfate 8 meq/ Calcium Gluconate 10 meq/ Multivitamins 5 ml/Zinc/Copper/ Manganese/ Selenium 1 ml/ Total Parenteral Nutrition/Amino Acids/Dextrose 2,040 ml @ 85 mls/hr TPN CONT IV Last administered on 02/21/21at 21:23; Start 02/21/21 at 22:00; Stop 02/22/21 at 21:59; Status DC Daptomycin 570 mg/ Sodium Chloride 50 ml @ 100 mls/hr Q24H IV Last administered on 02/24/21at 13:10; Start 02/22/21 at 12:00; Stop 02/25/21 at 10:34; Status DC Linezolid/Dextrose 300 ml @ 300 mls/hr Q12HR IV Last administered on 03/02/21at 08:26; Start 02/22/21 at 09:00; Stop 03/02/21 at 08:42; Status DC Potassium Acetate 50 meq/Potassium Phosphate 13.6 mmol/Magnesium Sulfate 8 meq/ Calcium Gluconate 5 meq/ Multivitamins 5 ml/Zinc/Copper/ Manganese/ Selenium 1 ml/ Total Parenteral Nutrition/Amino Acids/Dextrose 2,040 ml @ 85 mls/hr TPN CONT IV Last administered on 02/22/21at 21:32; Start 02/22/21 at 22:00; Stop 02/23/21 at 21:59; Status DC Fentanyl Citrate (Fentanyl 2ml Vial) 25 mcg PRN Q5MIN PRN IVP MILD PAIN 1-3; Start 02/23/21 at 06:00; Stop 02/24/21 at 05:59; Status DC Fentanyl Citrate (Fentanyl 2ml Vial) 50 mcg PRN Q5MIN PRN IVP MODERATE PAIN 4- 6; Start 02/23/21 at 06:00; Stop 02/24/21 at 05:59; Status DC Morphine Sulfate (Morphine Sulfate) 1 mg PRN Q10MIN PRN IVP SEVERE PAIN 7-10; Start 02/23/21 at 06:00; Stop 02/24/21 at 05:59; Status DC Ringer's Solution 1,000 ml @ 30 mls/hr Q24H IV Last administered on 02/23/21at 11:00; Start 02/23/21 at 06:00; Stop 02/23/21 at 17:59; Status DC Hydromorphone HCl (Dilaudid) 0.5 mg PRN Q10MIN PRN IVP SEVERE PAIN 7-10, 2nd CHOICE; Start 02/23/21 at 06:00; Stop 02/24/21 at 05:59; Status DC Prochlorperazine Edisylate (Compazine) 5 mg PACU PRN PRN IVP NAUSEA, MRX1; Start 02/23/21 at 06:00; Stop 02/24/21 at 05:59; Status DC Cellulose (Surgicel Fibrillar 1x2) 1 each STK-MED ONCE .ROUTE ; Start 02/23/21 at 08:23; Stop 02/23/21 at 08:23; Status DC Lidocaine/ Epinephrine (LIDOCAINE 1%-EPI 1:100,000 Multi-Dose) 20 ml STK-MED ONCE .ROUTE Last administered on 02/23/21at 13:33; Start 02/23/21 at 08:23; Stop 02/23/21 at 08:23; Status DC Potassium Acetate 50 meq/Potassium Phosphate 13.6 mmol/Magnesium Sulfate 8 meq/ Calcium Gluconate 5 meq/ Multivitamins 5 ml/Zinc/Copper/ Manganese/ Selenium 1 ml/ Total Parenteral Nutrition/Amino Acids/Dextrose 2,040 ml @ 85 mls/hr TPN CONT IV ; Start 02/23/21 at 22:00; Stop 02/24/21 at 21:59; Status DC Rocuronium [place] (Zemuron) 50 mg STK-MED ONCE .ROUTE ; Start 02/23/21 at 12:13; Stop 02/23/21 at 12:13; Status DC Fentanyl Citrate (Fentanyl 2ml Vial) 100 mcg STK-MED ONCE .ROUTE ; Start 02/23/21 at 12:24; Stop 02/23/21 at 12:24; Status DC Insulin Human Lispro (HumaLOG VIAL for OP,RR ONLY) 0-10 units PRN Q1HR PRN SQ PER PROTOCOL Last administered on 02/23/21at 13:00; Start 02/23/21 at 13:15; Stop 02/24/21 at 13:14; Status DC Rocuronium [place] (Zemuron) 100 mg STK-MED ONCE .ROUTE ; Start 02/23/21 at 13:22; Stop 02/23/21 at 13:23; Status DC Albuterol Sulfate (Ventolin Hfa) 60 puff STK-MED ONCE INH ; Start 02/23/21 at 13:47; Stop 02/23/21 at 13:48; Status DC Sevoflurane (Ultane) 60 ml STK-MED ONCE IH ; Start 02/23/21 at 14:21; Stop at 14:21; Status DC Potassium Acetate 50 meq/Potassium Phosphate 13.6 mmol/Magnesium Sulfate 8 meq/ Calcium Gluconate 5 meq/ Multivitamins 5 ml/Zinc/Copper/ Manganese/ Selenium 1 ml/ Total Parenteral Nutrition/Amino Acids/Dextrose 2,040 ml @ 85 mls/hr TPN CONT IV ; Start 02/25/21 at 22:00; Stop 02/26/21 at 21:59; Status DC Potassium Acetate 50 meq/Potassium Phosphate 13.6 mmol/Magnesium Sulfate 8 meq/ Calcium Gluconate 5 meq/ Multivitamins 5 ml/Zinc/Copper/ Manganese/ Selenium 1 ml/ Total Parenteral Nutrition/Amino Acids/Dextrose 2,040 ml @ 85 mls/hr TPN CONT IV Last administered on 02/26/21at 21:27; Start 02/26/21 at 22:00; Stop 02/27/21 at 21:59; Status DC Potassium Acetate 50 meq/Potassium Phosphate 13.6 mmol/Magnesium Sulfate 8 meq/ Calcium Gluconate 5 meq/ Multivitamins 5 ml/Zinc/Copper/ Manganese/ Selenium 1 ml/ Total Parenteral Nutrition/Amino Acids/Dextrose 2,040 ml @ 85 mls/hr TPN CONT IV Last administered on 02/27/21at 21:01; Start 02/27/21 at 22:00; Stop 02/28/21 at 21:59; Status DC Potassium Acetate 50 meq/Potassium Phosphate 13.6 mmol/Magnesium Sulfate 8 meq/ Calcium Gluconate 5 meq/ Multivitamins 5 ml/Zinc/Copper/ Manganese/ Selenium 1 ml/ Total Parenteral Nutrition/Amino Acids/Dextrose 2,040 ml @ 85 mls/hr TPN CONT IV Last administered on 02/28/21at 21:44; Start 02/28/21 at 22:00; Stop 03/01/21 at 21:59; Status DC Potassium Acetate 50 meq/Potassium Phosphate 13.6 mmol/Magnesium Sulfate 8 meq/ Calcium Gluconate 5 meq/ Multivitamins 5 ml/Zinc/Copper/ Manganese/ Selenium 1 ml/ Total Parenteral Nutrition/Amino Acids/Dextrose 2,040 ml @ 85 mls/hr TPN CONT IV Last administered on 03/01/21at 21:22; Start 03/01/21 at 22:00; Stop 03/02/21 at 21:59; Status DC Potassium Acetate 50 meq/Potassium Phosphate 13.6 mmol/Magnesium Sulfate 8 meq/ Multivitamins 5 ml/Zinc/Copper/ Manganese/ Selenium 1 ml/ Total Parenteral Nutrition/Amino Acids/Dextrose 2,040 ml @ 85 mls/hr TPN CONT IV Last administered on 03/02/21at 21:11; Start 03/02/21 at 22:00; Stop 03/03/21 at 21:59; Status DC Insulin Glargine (Lantus Syringe) 35 unit QHS SQ Last administered on 03/08/21at 22:12; Start 03/02/21 at 21:00 Potassium Acetate 50 meq/Potassium Phosphate 13.6 mmol/Magnesium Sulfate 8 meq/ Multivitamins 5 ml/Zinc/Copper/ Manganese/ Selenium 1 ml/ Total Parenteral Nu trition/Amino Acids/Dextrose 1,800 ml @ 75 mls/hr TPN CONT IV Last administered on 03/03/21at 21:54; Start 03/03/21 at 22:00; Stop 03/04/21 at 21:59; Status DC Docusate Sodium (Colace Solution) 100 mg DAILY PO Last administered on 03/08/21at 09:00; Start 03/03/21 at 10:00 Polyethylene Glycol (miraLAX PACKET) 17 gm DAILY PO Last administered on 03/08/21 09:02; Start 03/03/21 at 10:00 Potassium Acetate 40 meq/Potassium Phosphate 13.6 mmol/Magnesium Sulfate 10 meq/ Multivitamins 5 ml/Zinc/Copper/ Manganese/ Selenium 1 ml/ Total Parenteral Nutrition/Amino Acids/Dextrose 1,800 ml @ 75 mls/hr TPN CONT IV Last administered on 03/04/21at 22:16; Start 03/04/21 at 22:00; Stop 03/05/21 at 21:59; Status DC Linezolid/Dextrose 300 ml @ 300 mls/hr Q12HR IV Last administered on 03/07/21at 08:53; Start 03/05/21 at 09:00; Stop 03/07/21 at 09:45; Status DC Magnesium Sulfate 50 ml @ 25 mls/hr 1X ONCE IV Last administered on 03/05/21at 13:31; Start 03/05/21 at 14:00; Stop 03/05/21 at 15:59; Status DC Sodium Chloride 40 meq/Potassium Acetate 40 meq/ Potassium Phosphate 13.6 mmol/Magnesium Sulfate 10 meq/ Multivitamins 5 ml/Zinc/Copper/ Manganese/ Seleni um 1 ml/ Total Parenteral Nutrition/Amino Acids/Dextrose 1,800 ml @ 75 mls/hr TPN CONT IV Last administered on 03/05/21at 21:20; Start 03/05/21 at 22:00; Stop 03/06/21 at 21:59; Status DC Sodium Chloride 40 meq/Potassium Acetate 40 meq/ Potassium Phosphate 13.6 mmol/Magnesium Sulfate 10 meq/ Multivitamins 5 ml/Zinc/Copper/ Manganese/ Selenium 1 ml/ Total Parenteral Nutrition/Amino Acids/Dextrose 1,800 ml @ 75 mls/hr TPN CONT IV Last administered on 03/06/21at 21:35; Start 03/06/21 at 22:00; Stop 03/07/21 at 21:59; Status DC Vecuronium [place] (Norcuron Bolus) 10 mg STK-MED ONCE IV ; Start 03/07/21 at 11:15; Stop 03/07/21 at 11:16; Status DC Vecuronium [place] (Norcuron Bolus) 10 mg 1X ONCE IV Last administered on 03/07/21at 11:59; Start 03/07/21 at 11:30; Stop 03/07/21 at 12:00; Status DC Sodium Chloride 40 meq/Potassium Acetate 40 meq/ Potassium Phosphate 13.6 mmol/Magnesium Sulfate 10 meq/ Multivitamins 5 ml/Zinc/Copper/ Manganese/ Selenium 1 ml/ Total Parenteral Nutrition/Amino Acids/Dextrose 1,800 ml @ 75 mls/hr TPN CONT IV Last administered on 03/07/21at 21:41; Start 03/07/21 at 22:00; Stop 03/08/21 at 21:59; Status DC Sodium Chloride 40 meq/Potassium Acetate 40 meq/ Potassium Phosphate 13.6 mmol/Magnesium Sulfate 10 meq/ Multivitamins 5 ml/Zinc/Copper/ Manganese/ Selenium 1 ml/ Total Parenteral Nutrition/Amino Acids/Dextrose 1,560 ml @ 65 mls/hr TPN CONT IV Last administered on 03/08/21at 22:01; Start 03/08/21 at 22:00; Stop 03/09/21 at 21:59 Vitals/I & O Vital Sign - Last 24 Hours 03/08/21 03/08/21 03/08/21 03/08/21 09:00 09:05 10:10 11:12 Pulse 75 75 76 Resp 16 12 B/P (MAP) 177/93 (121) 169/92 167/89 (115) Pulse Ox 100 100 100 O2 Delivery Ventilator Ventilator Ventilator 03/08/21 03/08/21 03/08/21 03/08/21 11:12 11:14 12:00 13:03 Temp 100.0 100.0 Pulse 83 83 77 77 Resp 20 14 12 B/P (MAP) 164/92 (116) 164/92 156/80 (105) 156/89 (111) Pulse Ox 100 100 100 O2 Delivery Ventilator Ventilator Ventilator 03/08/21 03/08/21 03/08/21 03/08/21 13:19 13:31 14:00 15:00 Temp 99.3 99.3 Pulse 74 77 Resp 12 15 B/P (MAP) 161/88 (112) 164/86 (112) Pulse Ox 97 100 100 100 O2 Delivery Tracheal Collar Ventilator Ventilator Ventilator 03/08/21 03/08/21 03/08/21 03/08/21 15:28 16:00 16:00 16:54 Pulse 71 Resp 12 B/P (MAP) 140/81 (100) Pulse Ox 93 98 100 O2 Delivery Ventilator Mechanical Ventilator Ventilator Ventilator 03/08/21 03/08/21 03/08/21 03/08/21 17:00 18:00 19:00 20:00 Temp 99.6 99.6 Pulse 76 76 74 76 Resp 16 16 18 19 B/P (MAP) 118/71 (87) 138/78 (98) 146/84 (104) 141/83 (102) Pulse Ox 100 100 100 99 O2 Delivery Ventilator Ventilator Ventilator Ventilator 03/08/21 03/08/21 03/08/21 03/08/21 20:00 20:42 21:00 22:00 Pulse 78 76 Resp 23 20 B/P (MAP) 163/96 (118) 149/93 (111) Pulse Ox 100 99 96 O2 Delivery Mechanical Ventilator Ventilator Ventilator Ventilator 03/08/21 03/08/21 03/09/21 03/09/21 23:00 23:25 00:00 00:00 Temp 99.1 99.1 Pulse 74 72 Resp 20 21 B/P (MAP) 175/99 (124) 174/94 (120) Pulse Ox 96 100 100 O2 Delivery Ventilator Ventilator Mechanical Ventilator Ventilator 03/09/21 03/09/21 03/09/21 03/09/21 01:00 01:05 02:00 03:00 Pulse 78 76 74 Resp 22 16 16 B/P (MAP) 188/98 (128) 133/82 (99) 127/82 (97) Pulse Ox 100 100 100 100 O2 Delivery Ventilator Ventilator Ventilator Ventilator 03/09/21 03/09/21 03/09/21 03/09/21 03:48 04:00 04:00 05:00 Temp 97.7 97.7 Pulse 70 68 Resp 16 16 B/P (MAP) 114/67 (83) 106/67 (80) Pulse Ox 100 100 100 O2 Delivery Ventilator Ventilator Mechanical Ventilator Ventilator 03/09/21 03/09/21 06:00 07:37 Pulse 72 Resp 16 B/P (MAP) 101/66 (78) Pulse Ox 99 100 O2 Delivery Ventilator Ventilator Intake and Output 03/08/21 03/08/21 03/09/21 15:00 23:00 07:00 Intake Total 100 ml 1341 ml 461 ml Output Total 1395 ml 625 ml 1150 ml Balance -1295 ml 716 ml -689 ml Justicifation of Admission Dx: Justifications for Admission: Justification of Admission Dx: Yes Acute Hemorrhagic Stroke: Acute Hemorrhagic Stroke LESLI ALCOCER MD Mar 09, 2021 08:56
[2021-03-09 10:12] LABS: BASO # 0.1 x10^3/uL (0.0-0.2); BASO % 1 % (0-3); EOS # 0.2 x10^3/uL (0.0-0.7); EOS % 3 % (0-3); HEMATOCRIT 30.3 % (39.0-53.0); HEMOGLOBIN 10.4 g/dL (13.0-17.5); LYMPH # 1.7 x10^3/uL (1.0-4.8); LYMPH % 28 % (24-48); MEAN CORPUSCULAR HEMOGLOBIN 31 pg (25-35); MEAN CORPUSCULAR HGB CONC 35 g/dL (31-37); MEAN CORPUSCULAR VOLUME 90 fL (79-100); MONO # 0.6 x10^3/uL (0.0-1.1); MONO % 10 % (0-9); NEUT # 3.5 x10^3/uL (1.8-7.7); NEUT % 58 % (31-73); PLATELET COUNT 172 x10^3/uL (140-400); RED BLOOD COUNT 3.36 x10^6/uL (4.30-5.70); RED CELL DISTRIBUTION WIDTH 13.7 % (11.5-14.5); WHITE BLOOD COUNT 6.1 x10^3/uL (4.0-11.0)
[2021-03-09] MEDS: PANTOPRAZOLE IV PUSH 40 MG VIAL. IVP SCH (10:53)
[2021-03-09] MEDS: fentaNYL HIGH DOSE PCA 55 ML IV PRN (10:58)
[2021-03-09] MEDS: DOCUSATE 100 MG/10 ML SOLUTION. PO SCH (10:59)
[2021-03-09] MEDS: POLYETHYLENE GLYCOL 3350 17 GM PACKET. PO SCH (10:59)
[2021-03-09] MEDS: TPN PER PHARMACY MC PRN (14:08)
--- NOTE | 2021-03-09 14:09 | NUR ---
Pharmacy TPN Dosing Note S: COOPER CHAVEZ is a 61 year old M Currently receiving Central Continuous TPN started 02/11/21 B:Pertinent PMH: ILEUS, UNABLE TO START TUBE FEEDS Height: 6 feet, 2 inches Weight: 112.094912 kg Current diet: NPO LABS: Sodium: 131 Potassium: 4.6 Chloride: 98 Calcium: 8.5 Corrected Calcium: 10.02 Magnesium: 1.8 CO2: 29 SCr: 0.8 Glucose: 176-187 Albumin: 2.1 AST: 35 ALT: 67 TPN FORMULA: TPN TYPE: Central Continuous AMINO ACIDS: 78 gm DEXTROSE: 160 gm SODIUM CHLORIDE: 40 mEq POTASSIUM ACETATE: 40 mEq POTASSIUM PHOSPHATE: 13.6 mmol MAGNESIUM: 10 mEq MULTIPLE VITAMIN: 5 ml TRACE ELEMENTS: 1 ml ml(s) TPN PLAN: Rate adjust last night, will trend Na and adjust if needed tomorrow. -Renal panel ordered for AM. R: Continue same TPN formula. Will monitor electrolytes, glucose, and tolerance to TPN. MIKALA RIGGS RPH, 03/09/21 [id number]
--- NOTE | 2021-03-09 14:36 | PDOC ---
PROGRESS NOTES Date of Service DATE: 03/09/21 TIME: 14:30 Subjective Subjective s/p Right occipital craniotomy with evacuation of intracerebral hematoma sedated on vent, trach did not tolerated spontaneous mode yesterday per nursing Objective Objective Vital Signs Date Time Temp Pulse Resp B/P (MAP) Pulse Ox O2 Delivery O2 Flow Rate FiO2 03/09/21 11:43 100 Ventilator 03/09/21 06:00 72 16 101/66 (78) 03/09/21 04:00 97.7 97.7 Intake and Output 03/09/21 07:00 Intake Total 1902 ml Output Total 3170 ml Balance -1268 ml Intake Oral 0 ml IV Total 1802 ml Other 100 ml Output Urine Total 3170 ml Physical Exam General: Other (sedated, on vent) Skin: Other (incision healed well) Plan Plan of Care continue to wean sedation as tolerated, does not tolerated being off sedation BP control not safe for anticoagulation family is making decisions regarding code status, coming in next week will follow Comment Review of Relevant I have reviewed the following items neela (where applicable) has been applied. Labs Laboratory Tests Test 03/07/21 19:06 03/07/21 23:41 03/08/21 05:30 03/08/21 05:40 Glucose (Fingerstick) 233 mg/dL (70-99) 190 mg/dL (70-99) 197 mg/dL (70-99) White Blood Count 6.9 x10^3/uL (4.0-11.0) Red Blood Count 3.47 x10^6/uL (4.30-5.70) Hemoglobin 10.3 g/dL (13.0-17.5) Hematocrit 31.7 % (39.0-53.0) Mean Corpuscular Volume 92 fL (79-100) Mean Corpuscular Hemoglobin 30 pg (25-35) Mean Corpuscular Hemoglobin Concent 33 g/dL (31-37) Red Cell Distribution Width 13.4 % (11.5-14.5) Platelet Count 180 x10^3/uL (140-400) Neutrophils (%) (Auto) 70 % (31-73) Lymphocytes (%) (Auto) 16 % (24-48) Monocytes (%) (Auto) 9 % (0-9) Eosinophils (%) (Auto) 4 % (0-3) Basophils (%) (Auto) 0 % (0-3) Neutrophils # (Auto) 4.9 x10^3/uL (1.8-7.7) Lymphocytes # (Auto) 1.1 x10^3/uL (1.0-4.8) Monocytes # (Auto) 0.6 x10^3/uL (0.0-1.1) Eosinophils # (Auto) 0.3 x10^3/uL (0.0-0.7) Basophils # (Auto) 0.0 x10^3/uL (0.0-0.2) Sodium Level 133 mmol/L (136-145) Potassium Level 4.4 mmol/L (3.5-5.1) Chloride Level 100 mmol/L (98-107) Carbon Dioxide Level 29 mmol/L (21-32) Anion Gap 4 (6-14) Blood Urea Nitrogen 25 mg/dL (8-26) Creatinine 0.7 mg/dL (0.7-1.3) Estimated GFR (Cockcroft-Gault) 139.2 Glucose Level 210 mg/dL (70-99) Calcium Level 9.3 mg/dL (8.5-10.1) Phosphorus Level 4.6 mg/dL (2.6-4.7) Magnesium Level 1.8 mg/dL (1.8-2.4) Test 03/08/21 11:10 03/08/21 18:34 03/08/21 22:09 03/09/21 00:22 Glucose (Fingerstick) 192 mg/dL (70-99) 221 mg/dL (70-99) 188 mg/dL (70-99) 184 mg/dL (70-99) Test 03/09/21 06:30 03/09/21 06:34 White Blood Count 6.1 x10^3/uL (4.0-11.0) Red Blood Count 3.36 x10^6/uL (4.30-5.70) Hemoglobin 10.4 g/dL (13.0-17.5) Hematocrit 30.3 % (39.0-53.0) Mean Corpuscular Volume 90 fL (79-100) Mean Corpuscular Hemoglobin 31 pg (25-35) Mean Corpuscular Hemoglobin Concent 35 g/dL (31-37) Red Cell Distribution Width 13.7 % (11.5-14.5) Platelet Count 172 x10^3/uL (140-400) Neutrophils (%) (Auto) 58 % (31-73) Lymphocytes (%) (Auto) 28 % (24-48) Monocytes (%) (Auto) 10 % (0-9) Eosinophils (%) (Auto) 3 % (0-3) Basophils (%) (Auto) 1 % (0-3) Neutrophils # (Auto) 3.5 x10^3/uL (1.8-7.7) Lymphocytes # (Auto) 1.7 x10^3/uL (1.0-4.8) Monocytes # (Auto) 0.6 x10^3/uL (0.0-1.1) Eosinophils # (Auto) 0.2 x10^3/uL (0.0-0.7) Basophils # (Auto) 0.1 x10^3/uL (0.0-0.2) Sodium Level 131 mmol/L (136-145) Potassium Level 4.6 mmol/L (3.5-5.1) Chloride Level 98 mmol/L (98-107) Carbon Dioxide Level 29 mmol/L (21-32) Anion Gap 4 (6-14) Blood Urea Nitrogen 21 mg/dL (8-26) Creatinine 0.8 mg/dL (0.7-1.3) Estimated GFR (Cockcroft-Gault) 119.3 Glucose Level 187 mg/dL (70-99) Calcium Level 8.5 mg/dL (8.5-10.1) Glucose (Fingerstick) 176 mg/dL (70-99) Laboratory Tests Test 03/08/21 18:34 03/08/21 22:09 03/09/21 00:22 03/09/21 06:30 Glucose (Fingerstick) 221 mg/dL (70-99) 188 mg/dL (70-99) 184 mg/dL (70-99) White Blood Count 6.1 x10^3/uL (4.0-11.0) Red Blood Count 3.36 x10^6/uL (4.30-5.70) Hemoglobin 10.4 g/dL (13.0-17.5) Hematocrit 30.3 % (39.0-53.0) Mean Corpuscular Volume 90 fL (79-100) Mean Corpuscular Hemoglobin 31 pg (25-35) Mean Corpuscular Hemoglobin Concent 35 g/dL (31-37) Red Cell Distribution Width 13.7 % (11.5-14.5) Platelet Count 172 x10^3/uL (140-400) Neutrophils (%) (Auto) 58 % (31-73) Lymphocytes (%) (Auto) 28 % (24-48) Monocytes (%) (Auto) 10 % (0-9) Eosinophils (%) (Auto) 3 % (0-3) Basophils (%) (Auto) 1 % (0-3) Neutrophils # (Auto) 3.5 x10^3/uL (1.8-7.7) Lymphocytes # (Auto) 1.7 x10^3/uL (1.0-4.8) Monocytes # (Auto) 0.6 x10^3/uL (0.0-1.1) Eosinophils # (Auto) 0.2 x10^3/uL (0.0-0.7) Basophils # (Auto) 0.1 x10^3/uL (0.0-0.2) Sodium Level 131 mmol/L (136-145) Potassium Level 4.6 mmol/L (3.5-5.1) Chloride Level 98 mmol/L (98-107) Carbon Dioxide Level 29 mmol/L (21-32) Anion Gap 4 (6-14) Blood Urea Nitrogen 21 mg/dL (8-26) Creatinine 0.8 mg/dL (0.7-1.3) Estimated GFR (Cockcroft-Gault) 119.3 Glucose Level 187 mg/dL (70-99) Calcium Level 8.5 mg/dL (8.5-10.1) Test 03/09/21 06:34 Glucose (Fingerstick) 176 mg/dL (70-99) Microbiology 02/23/21 Gram Stain - Final, Complete 02/23/21 Aerobic Culture - Final, Complete 02/22/21 Blood Culture - Final, Complete NO GROWTH AFTER 5 DAYS 02/22/21 Gram Stain Evaluation - Final, Complete 02/22/21 Respiratory Culture - Final, Complete Medications Current Medications Nicardipine HCl 50 mg/Sodium Chloride 250 ml @ 12.5 mls/hr CONT PRN IV SEE I/O RECORD Last administered on 02/26/21at 01:20; Start 02/09/21 at 06:15 Labetalol HCl (Normodyne Iv Push) 10 mg PRN Q2HR PRN IVP HYPERTENSION- 1ST BRYSON CE Last administered on 03/08/21at 09:05; Start 02/09/21 at 06:15 Lorazepam (Ativan Inj) 2 mg 1X ONCE IVP Last administered on 02/09/21at 10:54; Start 02/09/21 at 10:45; Stop 02/09/21 at 10:46; Status DC Lorazepam (Ativan Inj) 2 mg 1X ONCE IVP Last administered on 02/09/21at 11:00; Start 02/09/21 at 11:00; Stop 02/09/21 at 11:01; Status DC Fentanyl Citrate (Fentanyl 2ml Vial) 25 mcg PRN Q2HR PRN IVP MODERATE TO SEVERE PAIN Last administered on 02/09/21at 13:37; Start 02/09/21 at 13:30; Stop 02/18/21 at 22:53; Status DC Info (Review Meds) 1 ea PRN 1X PRN MC SEE COMMENTS; Start 02/09/21 at 15:00 Acetaminophen (Tylenol Supp) 650 mg PRN Q6HRS PRN [place] FEVER > 100.5'F or 38'C; Start 02/09/21 at 15:00; Stop 02/11/21 at 21:12; Status DC Albuterol Sulfate (Ventolin Neb Soln) 2.5 mg PRN Q4HRS PRN NEB SHORTNESS OF BREATH; Start 02/09/21 at 15:15 Iohexol (Omnipaque 350 Mg/ml) 75 ml 1X ONCE IV Last administered on 02/09/21at 15:52; Start 02/09/21 at 15:30; Stop 02/09/21 at 15:35; Status DC Iohexol (Omnipaque 350 Mg/ml) 100 ml STK-MED ONCE .ROUTE ; Start 02/09/21 at 15:26; Stop 02/09/21 at 15:27; Status DC Info (CONTRAST GIVEN -- Rx MONITORING) 1 each PRN DAILY PRN MC SEE COMMENTS; Start 02/09/21 at 15:45; Stop 02/11/21 at 15:44; Status DC Propofol 100 ml @ As Directed STK-MED ONCE IV ; Start 02/09/21 at 15:51; Stop 02/09/21 at 15:51; Status DC Rocuronium [place] (Zemuron) 50 mg STK-MED ONCE .ROUTE ; Start 02/09/21 at 15:51; Stop 02/09/21 at 15:51; Status DC Lidocaine HCl (Lidocaine HCl 2% Abboject) 100 mg STK-MED ONCE .ROUTE ; Start 02/09/21 at 15:52; Stop 02/09/21 at 15:53; Status DC Propofol 100 ml @ 3.507 mls/ hr CONT PRN IV PER PROTOCOL Last administered on 03/09/21at 10:54; Start 02/09/21 at 16:15 Lidocaine HCl (Lidocaine HCl 2% Abboject) 100 mg 1X ONCE IV Last administered on 02/09/21at 16:17; Start 02/09/21 at 16:15; Stop 02/09/21 at 16:17; Status DC Rocuronium [place] (Zemuron) 50 mg 1X ONCE IV Last administered on 02/09/21at 16:17; Start 02/09/21 at 16:15; Stop 02/09/21 at 16:17; Status DC Rocuronium [place] (Zemuron) 100 mg STK-MED ONCE .ROUTE ; Start 02/09/21 at 16:31; Stop 02/09/21 at 16:32; Status DC Gelatin (Gelfoam Size 100) 1 each STK-MED ONCE .ROUTE Last administered on 02/09/21at 17:49; Start 02/09/21 at 16:33; Stop 02/09/21 at 16:33; Status DC Bupivacaine HCl/ Epinephrine Bitart (Sensorcain-Epi 0.5%-1:[id number] Mpf) 30 ml STK-MED ONCE .ROUTE Last administered on 02/09/21at 17:49; Start 02/09/21 at 16:3 3; Stop 02/09/21 at 16:33; Status DC Cellulose (Surgicel Hemostat 4x8) 1 each STK-MED ONCE .ROUTE Last administered on 02/09/21at 18:38; Start 02/09/21 at 16:33; Stop 02/09/21 at 16:33; Status DC Thrombin 20,000 unit STK-MED ONCE TP Last administered on 02/09/21at 17:49; Start 02/09/21 at 16:33; Stop 02/09/21 at 16:33; Status DC Fentanyl Citrate (Fentanyl 2ml Vial) 75 mcg 1X ONCE IVP Last administered on 02/09/21at 16:45; Start 02/09/21 at 16:45; Stop 02/09/21 at 16:47; Status DC Propofol (Diprivan) 200 mg 1X ONCE IV ; Start 02/09/21 at 17:15; Stop 02/09/21 at 17:16; Status DC Lidocaine HCl (Lidocaine HCl 2% Abboject) 100 mg 1X ONCE IV ; Start 02/09/21 at 17:15; Stop 02/09/21 at 17:16; Status DC Rocuronium [place] (Zemuron) 50 mg 1X ONCE IV ; Start 02/09/21 at 17:15; Stop 02/09/21 at 17:16; Status DC Propofol 100 ml @ 0 mls/hr CONT PRN PRN IV SEDATION; Start 02/09/21 at 17:15; Stop 02/10/21 at 05:14; Status DC Cefazolin Sodium (Ancef) 1 gm STK-MED ONCE IVP ; Start 02/09/21 at 17:28; Stop 02/09/21 at 17:28; Status DC Fentanyl Citrate (Fentanyl 2ml Vial) 100 mcg STK-MED ONCE .ROUTE ; Start 02/09/21 at 17:43; Stop 02/09/21 at 17:43; Status DC Rocuronium [place] (Zemuron) 100 mg STK-MED ONCE .ROUTE ; Start 02/09/21 at 17:58; Stop 02/09/21 at 17:59; Status DC Vecuronium [place] (Norcuron Bolus) 10 mg STK-MED ONCE IV ; Start 02/09/21 at 18:49; Stop 02/09/21 at 18:50; Status DC Sodium Chloride (SODIUM CHLORIDE 20ml) 20 ml STK-MED ONCE IJ ; Start 02/09/21 at 18:50; Stop 02/09/21 at 18:50; Status DC Sevoflurane (Ultane) 90 ml STK-MED ONCE IH ; Start 02/09/21 at 19:20; Stop 02/09/21 at 19:21; Status DC Fentanyl Citrate 30 ml @ 2.5 mls/hr CONT PRN IV SEE PROTOCOL Last administered on 02/09/21at 23:40; Start 02/09/21 at 23:15; Stop 02/10/21 at 04:43; Status DC Fentanyl Citrate 55 ml @ 0 mls/hr CONT PRN IV SEE I/O Last administered on 03/09/21at 10:58; Start 02/10/21 at 05:00 Potassium Chloride/Dextrose/ Sod Cl 1,000 ml @ 80 mls/hr [id number] IV ; Start 02/10/21 at 09:00; Stop 02/10/21 at 13:21; Status DC Pantoprazole Sodium (PROTONIX VIAL for IV PUSH) 40 mg DAILYAC IVP Last administered on 03/09/21at 10:53; Start 02/10/21 at 09:00 Lidocaine HCl (Buffered Lidocaine 1%) 3 ml STK-MED ONCE .ROUTE ; Start 02/10/21 at 13:18; Stop 02/10/21 at 13:18; Status DC Sodium Chloride 1,000 ml @ 80 mls/hr [id number] IV Last administered on 02/12/21at 03:00; Start 02/10/21 at 13:30; Stop 02/12/21 at 15:36; Status DC Lidocaine HCl (Buffered Lidocaine 1%) 6 ml 1X ONCE INJ Last administered on 02/10/21at 13:57; Start 02/10/21 at 13:45; Stop 02/10/21 at 13:46; Status DC Potassium Chloride/Water 100 ml @ 100 mls/hr Q1H IV Last administered on 02/11/21at 10:07; Start 02/11/21 at 08:00; Stop 02/11/21 at 09:59; Status DC Piperacillin Sod/ Tazobactam Sod 3.375 gm/Sodium Chloride 50 ml @ 100 mls/hr Q6HRS IV Last administered on 03/07/21at 05:35; Start 02/11/21 at 09:00; Stop 03/07/21 at 09:45; Status DC Info (Tpn Per Pharmacy) 1 each PRN DAILY PRN MC SEE COMMENTS Last administered on 03/09/21at 14:08; Start 02/11/21 at 11:15 Sodium Chloride 90 meq/Potassium Chloride 50 meq/ Potassium Phosphate 13.6 mmol/Magnesium Sulfate 10 meq/ Calcium Gluconate 10 meq/ Multivitamins 5 ml/Zinc/Copper/ Manganese/ Selenium 1 ml/ Total Parenteral Nutrition/Amino Acids/Dextrose 1,512 ml @ 63 mls/hr TPN CONT IV Last administered on 02/11/21at 22:32; Start 02/11/21 at 22:00; Stop 02/12/21 at 21:59; Status DC Furosemide (Lasix) 20 mg 1X ONCE IVP Last administered on 02/11/21at 15:11; Start 02/11/21 at 15:30; Stop 02/11/21 at 15:31; Status DC Furosemide (Lasix) 20 mg 1X ONCE IVP Last administered on 02/11/21at 17:00; Start 02/11/21 at 17:00; Stop 02/11/21 at 17:01; Status DC Midazolam HCl 100 ml @ 1 mls/hr CONT PRN IV SEE PROTOCOL Last administered on 02/13/21at 20:58; Start 02/11/21 at 19:30 Acetaminophen (Tylenol Supp) 650 mg PRN Q6HRS PRN [place] MILD PAIN / TEMP > 100.3'F; Start 02/11/21 at 21:15 Sodium Chloride 80 meq/Potassium Chloride 50 meq/ Potassium Phosphate 13.6 mm ol/Magnesium Sulfate 6 meq/ Calcium Gluconate 10 meq/ Multivitamins 5 ml/Zinc/Copper/ Manganese/ Selenium 1 ml/ Total Parenteral Nutrition/Amino Acids/Dextrose 1,512 ml @ 63 mls/hr TPN CONT IV Last administered on 02/12/21at 22:09; Start 02/12/21 at 22:00; Stop 02/13/21 at 21:59; Status DC Furosemide (Lasix) 40 mg 1X ONCE IVP Last administered on 02/12/21at 12:44; Start 02/12/21 at 12:30; Stop 02/12/21 at 12:31; Status DC Insulin Human Lispro (HumaLOG) 0-5 UNITS Q6HRS SQ Last administered on 03/09/21at 06:39; Start 02/12/21 at 12:00 Dextrose (Dextrose 50%-Water Syringe) 12.5 gm PRN Q15MIN PRN IV SEE COMMENTS; Start 02/12/21 at 12:15 Clonidine HCl (Catapres Tts-3) 1 patch WEEKLY TD Last administered on 03/06/21at 09:07; Start 02/13/21 at 11:00 Sodium Chloride 80 meq/Potassium Chloride 50 meq/ Potassium Phosphate 13.6 mmol/Magnesium Sulfate 6 meq/ Calcium Gluconate 10 meq/ Multivitamins 5 ml/Zinc/Copper/ Manganese/ Selenium 1 ml/ Total Parenteral Nutrition/Amino Acids/Dextrose 1,512 ml @ 63 mls/hr TPN CONT IV Last administered on 02/13/21at 21:42; Start 02/13/21 at 22:00; Stop 02/14/21 at 21:59; Status DC Potassium Acetate 50 meq/Potassium Phosphate 13.6 mmol/Magnesium Sulfate 6 meq/ Calcium Gluconate 10 meq/ Multivitamins 5 ml/Zinc/Copper/ Manganese/ Selenium 1 ml/ Total Parenteral Nutrition/Amino Acids/Dextrose 1,512 ml @ 63 mls/hr TPN CONT IV Last administered on 02/14/21at 21:59; Start 02/14/21 at 22:00; Stop 02/15/21 at 21:59; Status DC Insulin Glargine (Lantus Syringe) 10 unit QHS SQ Last administered on 02/15/21at 22:11; Start 02/14/21 at 21:00; Stop 02/16/21 at 12:42; Status DC Hydralazine HCl (Apresoline Inj) 10 mg PRN Q4HRS PRN IVP ELEVATED BP, SEE COMMENTS Last administered on 03/08/21at 11:14; Start 02/14/21 at 16:00 Potassium Acetate 50 meq/Potassium Phosphate 13.6 mmol/Magnesium Sulfate 6 meq/ Calcium Gluconate 10 meq/ Multivitamins 5 ml/Zinc/Copper/ Manganese/ Selenium 1 ml/ Total Parenteral Nutrition/Amino Acids/Dextrose 1,512 ml @ 63 mls/hr TPN CONT IV Last administered on 02/15/21at 22:13; Start 02/15/21 at 22:00; Stop 02/16/21 at 21:59; Status DC Dexmedetomidine HCl 400 mcg/ Sodium Chloride 100 ml @ 0 mls/hr CONT PRN IV PER PROTOCOL Last administered on 03/09/21at 13:38; Start 02/15/21 at 14:15 Sodium Chloride 500 ml @ 500 mls/hr 1X PRN PRN IV SEE COMMENTS; Start 02/15/21 at 14:15 Atropine Sulfate (ATROPINE 0.5mg SYRINGE) 0.5 mg PRN Q5MIN PRN IV SEE COMMENTS; Start 02/15/21 at 14:15 Potassium Acetate 50 meq/Potassium Phosphate 13.6 mmol/Magnesium Sulfate 6 meq/ Calcium Gluconate 10 meq/ Multivitamins 5 ml/Zinc/Copper/ Manganese/ Selenium 1 ml/ Total Parenteral Nutrition/Amino Acids/Dextrose 1,512 ml @ 63 mls/hr TPN CONT IV Last administered on 02/16/21at 22:59; Start 02/16/21 at 22:00; Stop 02/17/21 at 21:59; Status DC Insulin Glargine (Lantus Syringe) 14 unit QHS SQ Last administered on 02/16/21at 21:14; Start 02/16/21 at 21:00; Stop 02/17/21 at 14:15; Status DC Potassium Acetate 50 meq/Potassium Phosphate 13.6 mmol/Magnesium Sulfate 6 meq/ Calcium Gluconate 10 meq/ Multivitamins 5 ml/Zinc/Copper/ Manganese/ Selenium 1 ml/ Total Parenteral Nutrition/Amino Acids/Dextrose 1,512 ml @ 63 mls/hr TPN CONT IV Last administered on 02/17/21at 20:48; Start 02/17/21 at 22:00; Stop 02/18/21 at 21:59; Status DC Dextrose 1,000 ml @ 75 mls/hr [id number] IV Last administered on 02/18/21at 13:51; Start 02/17/21 at 10:30; Stop 02/19/21 at 12:57; Status DC Insulin Glargine (Lantus Syringe) 18 unit QHS SQ Last administered on 02/17/21at 20:46; Start 02/17/21 at 21:00; Stop 02/18/21 at 11:56; Status DC Insulin Glargine (Lantus Syringe) 22 unit QHS SQ Last administered on 02/18/21at 21:00; Start 02/18/21 at 21:00; Stop 02/19/21 at 14:08; Status DC Potassium Acetate 50 meq/Potassium Phosphate 13.6 mmol/Magnesium Sulfate 6 meq/ Calcium Gluconate 10 meq/ Multivitamins 5 ml/Zinc/Copper/ Manganese/ Selenium 1 ml/ Total Parenteral Nutrition/Amino Acids/Dextrose 1,512 ml @ 63 mls/hr TPN CONT IV Last administered on 02/18/21at 21:43; Start 02/18/21 at 22:00; Stop 02/19/21 at 21:59; Status DC Potassium Acetate 50 meq/Potassium Phosphate 13.6 mmol/Magnesium Sulfate 6 meq/ Calcium Gluconate 10 meq/ Multivitamins 5 ml/Zinc/Copper/ Manganese/ Selenium 1 ml/ Total Parenteral Nutrition/Amino Acids/Dextrose 2,040 ml @ 85 mls/hr TPN CONT IV Last administered on 02/19/21at 20:56; Start 02/19/21 at 22:00; Stop 02/20/21 at 21:59; Status DC Insulin Glargine (Lantus Syringe) 25 unit QHS SQ Last administered on 02/20/21at 22:11; Start 02/19/21 at 21:00; Stop 02/21/21 at 10:10; Status DC Acetaminophen (Tylenol) 650 mg PRN Q6HRS PRN PEG MILD PAIN / TEMP > 100.3'F Last administered on 03/08/21at 09:40; Start 02/19/21 at 18:00 Potassium Acetate 50 meq/Potassium Phosphate 13.6 mmol/Magnesium Sulfate 6 meq/ Calcium Gluconate 10 meq/ Multivitamins 5 ml/Zinc/Copper/ Manganese/ Selenium 1 ml/ Total Parenteral Nutrition/Amino Acids/Dextrose 2,040 ml @ 85 mls/hr TPN CONT IV Last administered on 02/20/21at 22:10; Start 02/20/21 at 22:00; Stop 02/21/21 at 21:59; Status DC Insulin Glargine (Lantus Syringe) 27 unit QHS SQ Last administered on 03/01/21at 21:18; Start 02/21/21 at 21:00; Stop 03/02/21 at 13:32; Status DC Magnesium Sulfate 50 ml @ 25 mls/hr 1X ONCE IV Last administered on 02/21/21at 11:30; Start 02/21/21 at 11:00; Stop 02/21/21 at 12:59; Status DC Potassium Acetate 50 meq/Potassium Phosphate 13.6 mmol/Magnesium Sulfate 8 meq/ Calcium Gluconate 10 meq/ Multivitamins 5 ml/Zinc/Copper/ Manganese/ Selenium 1 ml/ Total Parenteral Nutrition/Amino Acids/Dextrose 2,040 ml @ 85 mls/hr TPN CONT IV Last administered on 02/21/21at 21:23; Start 02/21/21 at 22:00; Stop 02/22/21 at 21:59; Status DC Daptomycin 570 mg/ Sodium Chloride 50 ml @ 100 mls/hr Q24H IV Last administered on 02/24/21at 13:10; Start 02/22/21 at 12:00; Stop 02/25/21 at 10:34; Status DC Linezolid/Dextrose 300 ml @ 300 mls/hr Q12HR IV Last administered on 03/02/21at 08:26; Start 02/22/21 at 09:00; Stop 03/02/21 at 08:42; Status DC Potassium Acetate 50 meq/Potassium Phosphate 13.6 mmol/Magnesium Sulfate 8 meq/ Calcium Gluconate 5 meq/ Multivitamins 5 ml/Zinc/Copper/ Manganese/ Selenium 1 ml/ Total Parenteral Nutrition/Amino Acids/Dextrose 2,040 ml @ 85 mls/hr TPN CONT IV Last administered on 02/22/21at 21:32; Start 02/22/21 at 22:00; Stop 02/23/21 at 21:59; Status DC Fentanyl Citrate (Fentanyl 2ml Vial) 25 mcg PRN Q5MIN PRN IVP MILD PAIN 1-3; Start 02/23/21 at 06:00; Stop 02/24/21 at 05:59; Status DC Fentanyl Citrate (Fentanyl 2ml Vial) 50 mcg PRN Q5MIN PRN IVP MODERATE PAIN 4- 6; Start 02/23/21 at 06:00; Stop 02/24/21 at 05:59; Status DC Morphine Sulfate (Morphine Sulfate) 1 mg PRN Q10MIN PRN IVP SEVERE PAIN 7-10; Start 02/23/21 at 06:00; Stop 02/24/21 at 05:59; Status DC Ringer's Solution 1,000 ml @ 30 mls/hr Q24H IV Last administered on 02/23/21at 11:00; Start 02/23/21 at 06:00; Stop 02/23/21 at 17:59; Status DC Hydromorphone HCl (Dilaudid) 0.5 mg PRN Q10MIN PRN IVP SEVERE PAIN 7-10, 2nd CHOICE; Start 02/23/21 at 06:00; Stop 02/24/21 at 05:59; Status DC Prochlorperazine Edisylate (Compazine) 5 mg PACU PRN PRN IVP NAUSEA, MRX1; Start 02/23/21 at 06:00; Stop 02/24/21 at 05:59; Status DC Cellulose (Surgicel Fibrillar 1x2) 1 each STK-MED ONCE .ROUTE ; Start 02/23/21 at 08:23; Stop 02/23/21 at 08:23; Status DC Lidocaine/ Epinephrine (LIDOCAINE 1%-EPI 1:100,000 Multi-Dose) 20 ml STK-MED ONCE .ROUTE Last administered on 02/23/21at 13:33; Start 02/23/21 at 08:23; Stop 02/23/21 at 08:23; Status DC Potassium Acetate 50 meq/Potassium Phosphate 13.6 mmol/Magnesium Sulfate 8 meq/ Calcium Gluconate 5 meq/ Multivitamins 5 ml/Zinc/Copper/ Manganese/ Selenium 1 ml/ Total Parenteral Nutrition/Amino Acids/Dextrose 2,040 ml @ 85 mls/hr TPN CONT IV ; Start 02/23/21 at 22:00; Stop 02/24/21 at 21:59; Status DC Rocuronium [place] (Zemuron) 50 mg STK-MED ONCE .ROUTE ; Start 02/23/21 at 12:13; Stop 02/23/21 at 12:13; Status DC Fentanyl Citrate (Fentanyl 2ml Vial) 100 mcg STK-MED ONCE .ROUTE ; Start 02/23/21 at 12:24; Stop 02/23/21 at 12:24; Status DC Insulin Human Lispro (HumaLOG VIAL for OP,RR ONLY) 0-10 units PRN Q1HR PRN SQ PER PROTOCOL Last administered on 02/23/21at 13:00; Start 02/23/21 at 13:15; Stop 02/24/21 at 13:14; Status DC Rocuronium [place] (Zemuron) 100 mg STK-MED ONCE .ROUTE ; Start 02/23/21 at 13:22; Stop 02/23/21 at 13:23; Status DC Albuterol Sulfate (Ventolin Hfa) 60 puff STK-MED ONCE INH ; Start 02/23/21 at 13:47; Stop 02/23/21 at 13:48; Status DC Sevoflurane (Ultane) 60 ml STK-MED ONCE IH ; Start 02/23/21 at 14:21; Stop 02/23/21 at 14:21; Status DC Potassium Acetate 50 meq/Potassium Phosphate 13.6 mmol/Magnesium Sulfate 8 meq/ Calcium Gluconate 5 meq/ Multivitamins 5 ml/Zinc/Copper/ Manganese/ Selenium 1 ml/ Total Parenteral Nutrition/Amino Acids/Dextrose 2,040 ml @ 85 mls/hr TPN CONT IV ; Start 02/25/21 at 22:00; Stop 02/26/21 at 21:59; Status DC Potassium Acetate 50 meq/Potassium Phosphate 13.6 mmol/Magnesium Sulfate 8 meq/ Calcium Gluconate 5 meq/ Multivitamins 5 ml/Zinc/Copper/ Manganese/ Selenium 1 ml/ Total Parenteral Nutrition/Amino Acids/Dextrose 2,040 ml @ 85 mls/hr TPN CONT IV Last administered on 02/26/21at 21:27; Start 02/26/21 at 22:00; Stop 02/27/21 at 21:59; Status DC Potassium Acetate 50 meq/Potassium Phosphate 13.6 mmol/Magnesium Sulfate 8 meq/ Calcium Gluconate 5 meq/ Multivitamins 5 ml/Zinc/Copper/ Manganese/ Selenium 1 ml/ Total Parenteral Nutrition/Amino Acids/Dextrose 2,040 ml @ 85 mls/hr TPN CONT IV Last administered on 02/27/21at 21:01; Start 02/27/21 at 22:00; Stop 02/28/21 at 21:59; Status DC Potassium Acetate 50 meq/Potassium Phosphate 13.6 mmol/Magnesium Sulfate 8 meq/ Calcium Gluconate 5 meq/ Multivitamins 5 ml/Zinc/Copper/ Manganese/ Selenium 1 ml/ Total Parenteral Nutrition/Amino Acids/Dextrose 2,040 ml @ 85 mls/hr TPN CONT IV Last administered on 02/28/21at 21:44; Start 02/28/21 at 22:00; Stop 03/01/21 at 21:59; Status DC Potassium Acetate 50 meq/Potassium Phosphate 13.6 mmol/Magnesium Sulfate 8 meq/ Calcium Gluconate 5 meq/ Multivitamins 5 ml/Zinc/Copper/ Manganese/ Selenium 1 ml/ Total Parenteral Nutrition/Amino Acids/Dextrose 2,040 ml @ 85 mls/hr TPN CONT IV Last administered on 03/01/21at 21:22; Start 03/01/21 at 22:00; Stop 03/02/21 at 21:59; Status DC Potassium Acetate 50 meq/Potassium Phosphate 13.6 mmol/Magnesium Sulfate 8 meq/ Multivitamins 5 ml/Zinc/Copper/ Manganese/ Selenium 1 ml/ Total Parenteral Nutrition/Amino Acids/Dextrose 2,040 ml @ 85 mls/hr TPN CONT IV Last administered on 03/02/21at 21:11; Start 03/02/21 at 22:00; Stop 03/03/21 at 21:59; Status DC Insulin Glargine (Lantus Syringe) 35 unit QHS SQ Last administered on 03/08/21at 22:12; Start 03/02/21 at 21:00 Potassium Acetate 50 meq/Potassium Phosphate 13.6 mmol/Magnesium Sulfate 8 meq/ Multivitamins 5 ml/Zinc/Copper/ Manganese/ Selenium 1 ml/ Total Parenteral Nutrition/Amino Acids/Dextrose 1,800 ml @ 75 mls/hr TPN CONT IV Last administered on 03/03/21at 21:54; Start 03/03/21 at 22:00; Stop 03/04/21 at 21:59; Status DC Docusate Sodium (Colace Solution) 100 mg DAILY PO Last administered on 03/09/21at 10:59; Start 03/03/21 at 10:00 Polyethylene Glycol (miraLAX PACKET) 17 gm DAILY PO Last administered on 03/09/21at 10:59; Start 03/03/21 at 10:00 Potassium Acetate 40 meq/Potassium Phosphate 13.6 mmol/Magnesium Sulfate 10 meq/ Multivitamins 5 ml/Zinc/Copper/ Manganese/ Selenium 1 ml/ Total Parenteral Nutrition/Amino Acids/Dextrose 1,800 ml @ 75 mls/hr TPN CONT IV Last administered on 03/04/21at 22:16; Start 03/04/21 at 22:00; Stop 03/05/21 at 21:59; Status DC Linezolid/Dextrose 300 ml @ 300 mls/hr Q12HR IV Last administered on 03/07/21at 08:53; Start 03/05/21 at 09:00; Stop 03/07/21 at 09:45; Status DC Magnesium Sulfate 50 ml @ 25 mls/hr 1X ONCE IV Last administered on 03/05/21at 13:31; Start 03/05/21 at 14:00; Stop 03/05/21 at 15:59; Status DC Sodium Chloride 40 meq/Potassium Acetate 40 meq/ Potassium Phosphate 13.6 mmol/Magnesium Sulfate 10 meq/ Multivitamins 5 ml/Zinc/Copper/ Manganese/ Selenium 1 ml/ Total Parenteral Nutrition/Amino Acids/Dextrose 1,800 ml @ 75 mls/hr TPN CONT IV Last administered on 03/05/21at 21:20; Start 03/05/21 at 22:00; Stop 03/06/21 at 21:59; Status DC Sodium Chloride 40 meq/Potassium Acetate 40 meq/ Potassium Phosphate 13.6 mmol/Magnesium Sulfate 10 meq/ Multivitamins 5 ml/Zinc/Copper/ Manganese/ Selenium 1 ml/ Total Parenteral Nutrition/Amino Acids/Dextrose 1,800 ml @ 75 mls/hr TPN CONT IV Last administered on 03/06/21at 21:35; Start 03/06/21 at 22:00; Stop 03/07/21 at 21:59; Status DC Vecuronium [place] (Norcuron Bolus) 10 mg STK-MED ONCE IV ; Start 03/07/21 at 11:15; Stop 03/07/21 at 11:16; Status DC Vecuronium [place] (Norcuron Bolus) 10 mg 1X ONCE IV Last administered on 03/07/21at 11:59; Start 03/07/21 at 11:30; Stop 03/07/21 at 12:00; Status DC Sodium Chloride 40 meq/Potassium Acetate 40 meq/ Potassium Phosphate 13.6 mmol/Magnesium Sulfate 10 meq/ Multivitamins 5 ml/Zinc/Copper/ Manganese/ Selenium 1 ml/ Total Parenteral Nutrition/Amino Acids/Dextrose 1,800 ml @ 75 mls/hr TPN CONT IV Last administered on 03/07/21at 21:41; Start 03/07/21 at 22:00; Stop 03/08/21 at 21:59; Status DC Sodium Chloride 40 meq/Potassium Acetate 40 meq/ Potassium Phosphate 13.6 mmol/Magnesium Sulfate 10 meq/ Multivitamins 5 ml/Zinc/Copper/ Manganese/ Selenium 1 ml/ Total Parenteral Nutrition/Amino Acids/Dextrose 1,560 ml @ 65 mls/hr TPN CONT IV Last administered on 03/08/21at 22:01; Start 03/08/21 at 22:00; Stop 03/09/21 at 21:59 Sodium Chloride 40 meq/Potassium Acetate 40 meq/ Potassium Phosphate 13.6 mmol/Magnesium Sulfate 10 meq/ Multivitamins 5 ml/Zinc/Copper/ Manganese/ Selenium 1 ml/ Total Parenteral Nutrition/Amino Acids/Dextrose 1,560 ml @ 65 mls/hr TPN CONT IV ; Start 03/09/21 at 22:00; Stop 03/10/21 at 21:59 Vitals/I & O Vital Sign - Last 24 Hours 03/08/21 03/08/21 03/08/21 03/08/21 15:00 15:28 16:00 16:00 Temp 99.3 99.3 Pulse 77 71 Resp 15 12 B/P (MAP) 164/86 (112) 140/81 (100) Pulse Ox 100 93 98 O2 Delivery Ventilator Ventilator Mechanical Ventilator Ventilator 03/08/21 03/08/21 03/08/21 03/08/21 16:54 17:00 18:00 19:00 Pulse 76 76 74 Resp 16 16 18 B/P (MAP) 118/71 (87) 138/78 (98) 146/84 (104) Pulse Ox 100 100 100 100 O2 Delivery Ventilator Ventilator Ventilator Ventilator 03/08/21 03/08/21 03/08/21 03/08/21 20:00 20:00 20:42 21:00 Temp 99.6 99.6 Pulse 76 78 Resp 19 23 B/P (MAP) 141/83 (102) 163/96 (118) Pulse Ox 99 100 99 O2 Delivery Ventilator Mechanical Ventilator Ventilator Ventilator 03/08/21 03/08/21 03/08/21 03/09/21 22:00 23:00 23:25 00:00 Pulse 76 74 Resp 20 20 B/P (MAP) 149/93 (111) 175/99 (124) Pulse Ox 96 96 100 O2 Delivery Ventilator Ventilator Ventilator Mechanical Ventilator 03/09/21 03/09/21 03/09/21 03/09/21 00:00 01:00 01:05 02:00 Temp 99.1 99.1 Pulse 72 78 76 Resp 21 22 16 B/P (MAP) 174/94 (120) 188/98 (128) 133/82 (99) Pulse Ox 100 100 100 100 O2 Delivery Ventilator Ventilator Ventilator Ventilator 03/09/21 03/09/21 03/09/21 03/09/21 03:00 03:48 04:00 04:00 Temp 97.7 97.7 Pulse 74 70 Resp 16 16 B/P (MAP) 127/82 (97) 114/67 (83) Pulse Ox 100 100 100 O2 Delivery Ventilator Ventilator Ventilator Mechanical Ventilator 03/09/21 03/09/21 03/09/21 03/09/21 05:00 06:00 07:37 08:00 Pulse 68 72 Resp 16 16 B/P (MAP) 106/67 (80) 101/66 (78) Pulse Ox 100 99 100 O2 Delivery Ventilator Ventilator Ventilator Mechanical Ventilator 03/09/21 03/09/21 03/09/21 03/09/21 09:50 10:58 11:28 11:43 Pulse Ox 100 100 100 100 O2 Delivery Ventilator Ventilator Intake and Output 03/08/21 03/08/21 03/09/21 15:00 23:00 07:00 Intake Total 100 ml 1341 ml 461 ml Output Total 1395 ml 625 ml 1150 ml Balance -1295 ml 716 ml -689 ml Justifications for Admission Other Justification LUCINDA DENNY MD Mar 09, 2021 14:36
--- NOTE | 2021-03-09 15:47 | NUR ---
SS following up with discharge planning. SS reviewed pt chart and discussed with pt RN. Pt is currently on the vent at 40%. COVID19 negative. Pt on TPN. Pt on Fentanyl, Propofol, and Precedex. Trach in place. Self pay. Medicaid pending. [facility] following. Pt's family wanting LTACH placement. Pt's family provided copy of DPOA paperwork. [facility] notified. Pt needing active insurance prior to LTACH accepting. Not stable. SS will continue to follow for discharge planning.
[2021-03-09] MEDS: INSULIN GLARGINE SYRINGE. SQ SCH (21:09)
[2021-03-09] MEDS ORDERED: AMINO ACID IV SCH (22:00)
[2021-03-09] MEDS ORDERED: [UNRECOGNIZED DRUG - OTHER] IV SCH (22:00)
[2021-03-09] MEDS ORDERED: TOTAL PARENTERAL NUTRITION IV SCH (22:00)
[2021-03-09] MEDS ORDERED: DEXTROSE 70% IV SCH (22:00)
[2021-03-10] VITALS (23 sets, daily range): BP systolic 90–163; BP diastolic 56–95
[2021-03-10] MEDS: INSULIN LISPRO 300 UNITS/3 ML VIAL. SQ SCH ×4 (00:16→17:31)
[2021-03-10] MEDS: PROPOFOL 100 ML IV PRN ×5 (01:10→22:04)
--- NOTE | 2021-03-10 05:55 | PDOC ---
PULMONARY PROGRESS NOTES DATE: 03/10/21 TIME: 05:53 Subjective Patient remains on vent support 40% and PEEP of 5 Patient is sedated on propofol/Precedex and fentanyl Patient had a low-grade fever overnight No overnight concerns from nursing Vitals Vital Signs Date Time Temp Pulse Resp B/P (MAP) Pulse Ox O2 Delivery O2 Flow Rate FiO2 03/10/21 05:00 74 16 108/74 (85) 97 Ventilator 03/10/21 04:00 99.6 99.6 Comments ros unable to obtain intubated on vent Lungs: Clear Cardiovascular: S1, S2 Abdomen: Soft, Non-tender Extremities: No Edema Skin: Warm Labs Laboratory Tests Test 03/08/21 11:10 03/08/21 18:34 03/08/21 22:09 03/09/21 00:22 Glucose (Fingerstick) 192 mg/dL (70-99) 221 mg/dL (70-99) 188 mg/dL (70-99) 184 mg/dL (70-99) Test 03/09/21 06:30 03/09/21 06:34 03/09/21 14:55 03/09/21 18:15 White Blood Count 6.1 x10^3/uL (4.0-11.0) Red Blood Count 3.36 x10^6/uL (4.30-5.70) Hemoglobin 10.4 g/dL (13.0-17.5) Hematocrit 30.3 % (39.0-53.0) Mean Corpuscular Volume 90 fL (79-100) Mean Corpuscular Hemoglobin 31 pg (25-35) Mean Corpuscular Hemoglobin Concent 35 g/dL (31-37) Red Cell Distribution Width 13.7 % (11.5-14.5) Platelet Count 172 x10^3/uL (140-400) Neutrophils (%) (Auto) 58 % (31-73) Lymphocytes (%) (Auto) 28 % (24-48) Monocytes (%) (Auto) 10 % (0-9) Eosinophils (%) (Auto) 3 % (0-3) Basophils (%) (Auto) 1 % (0-3) Neutrophils # (Auto) 3.5 x10^3/uL (1.8-7.7) Lymphocytes # (Auto) 1.7 x10^3/uL (1.0-4.8) Monocytes # (Auto) 0.6 x10^3/uL (0.0-1.1) Eosinophils # (Auto) 0.2 x10^3/uL (0.0-0.7) Basophils # (Auto) 0.1 x10^3/uL (0.0-0.2) Sodium Level 131 mmol/L (136-145) Potassium Level 4.6 mmol/L (3.5-5.1) Chloride Level 98 mmol/L (98-107) Carbon Dioxide Level 29 mmol/L (21-32) Anion Gap 4 (6-14) Blood Urea Nitrogen 21 mg/dL (8-26) Creatinine 0.8 mg/dL (0.7-1.3) Estimated GFR (Cockcroft-Gault) 119.3 Glucose Level 187 mg/dL (70-99) Calcium Level 8.5 mg/dL (8.5-10.1) Glucose (Fingerstick) 176 mg/dL (70-99) 184 mg/dL (70-99) 165 mg/dL (70-99) Test 03/10/21 00:14 Glucose (Fingerstick) 157 mg/dL (70-99) Laboratory Tests Test 03/09/21 06:30 03/09/21 06:34 03/09/21 14:55 03/09/21 18:15 White Blood Count 6.1 x10^3/uL (4.0-11.0) Red Blood Count 3.36 x10^6/uL (4.30-5.70) Hemoglobin 10.4 g/dL (13.0-17.5) Hematocrit 30.3 % (39.0-53.0) Mean Corpuscular Volume 90 fL (79-100) Mean Corpuscular Hemoglobin 31 pg (25-35) Mean Corpuscular Hemoglobin Concent 35 g/dL (31-37) Red Cell Distribution Width 13.7 % (11.5-14.5) Platelet Count 172 x10^3/uL (140-400) Neutrophils (%) (Auto) 58 % (31-73) Lymphocytes (%) (Auto) 28 % (24-48) Monocytes (%) (Auto) 10 % (0-9) Eosinophils (%) (Auto) 3 % (0-3) Basophils (%) (Auto) 1 % (0-3) Neutrophils # (Auto) 3.5 x10^3/uL (1.8-7.7) Lymphocytes # (Auto) 1.7 x10^3/uL (1.0-4.8) Monocytes # (Auto) 0.6 x10^3/uL (0.0-1.1) Eosinophils # (Auto) 0.2 x10^3/uL (0.0-0.7) Basophils # (Auto) 0.1 x10^3/uL (0.0-0.2) Sodium Level 131 mmol/L (136-145) Potassium Level 4.6 mmol/L (3.5-5.1) Chloride Level 98 mmol/L (98-107) Carbon Dioxide Level 29 mmol/L (21-32) Anion Gap 4 (6-14) Blood Urea Nitrogen 21 mg/dL (8-26) Creatinine 0.8 mg/dL (0.7-1.3) Estimated GFR (Cockcroft-Gault) 119.3 Glucose Level 187 mg/dL (70-99) Calcium Level 8.5 mg/dL (8.5-10.1) Glucose (Fingerstick) 176 mg/dL (70-99) 184 mg/dL (70-99) 165 mg/dL (70-99) Test 03/10/21 00:14 Glucose (Fingerstick) 157 mg/dL (70-99) Comments CXR 02/21/21 IMPRESSION: 1. Stable life support devices. 2. Improving bibasilar opacities.. CXR 02/18/21 IMPRESSION: Unchanged bibasilar opacities. Recommend follow-up to ensure resolution, particularly of focal opacities in the right lung base. CXR 02/17/21 IMPRESSION: 1. Stable life support devices. 2. Stable bibasilar opacities. 3. Stable small left pleural effusion. IMPRESSION: Chest x-ray 02/13 1. Stable support lines and tubes. 2. Severe right upper lobe predominant bullous emphysema. 3. Stable right perihilar linear atelectasis or infiltrate superimposed on diffuse interstitial prominence and small pleural effusions. Impression . IMPRESSION: 1. Acute hypoxic respiratory failure multifactorial, predominantly to intraparenchymal cerebral hematoma. Status post tracheostomy 02/[address] reveals evidence of a new moderate-sized stroke of frontal lobe, per neurology. Most recent head CT shows left hemispheric strokes, with hemorrhagic transformation, thus he has had bilateral severe brain insults 3. Long history of tobaccoism. CT angiogram showed bullous emphysema in the upper lobes. 3. Acute kidney injury--resolved 4. Leukocytosis--resolved 5. s/p Right occipital craniotomy with evacuation of intracerebral hematoma. 02/09/21 6. Encephalopathy, multifactorial--ongoing 7. Uncontrolled hypertension 8. Fever, per ID--resolved 9. Status post tracheotomy 02/23 CT head 02/13, IMPRESSION: 1. Expected interval evolution of a right posterior temporal/occipital intraparenchymal hematoma status post decompressive craniotomy. 2. Expected evolution of a small amount of subarachnoid and intraventricular clot. DATE OF SURGERY: 02/09/2021 PREOPERATIVE DIAGNOSIS: Right posterior temporoparietal occipital intracerebral hemorrhage with neurologic deterioration. POSTOPERATIVE DIAGNOSIS: Right posterior temporoparietal occipital intracerebral hemorrhage with neurologic deterioration. OPERATION PERFORMED: Right occipital craniotomy with evacuation of intracerebral hematoma. Plan . Updated 03/10/21 Continue current vent support 16/500/40 percent/PEEP of 5 Continue sedation, patient is not an optimal candidate for weaning Follow CXR/ABG PRN--no changes Follow ID recs for ABX--remains off antibiotics, ID has signed off the case Follow neuro sx recs-- s/p Right occipital craniotomy with evacuation of intracerebral hematoma 02/09/21-not safe for anticoagulation Hypertension Per PCP Continue TPN for nutritional support DVT/GI PPX-- no AC 2/2 intracerebral hematoma D/W RN and RT Pt. is FULL code, with poor prognosis Awaiting some family members to arrive next week to discuss goals of care Updated 03/09/21 This morning patient was noted to have paradoxical breathing while on pressure support mode. Patient will be placed back on assist control mode. We will restart sedation. Not an optimal candidate for weaning. Patient did not tolerate T shield yesterday as well, patient does not tolerate reduction of sedation increased respiratory rate and increased blood pressure. Follow CXR/ABG PRN--no changes Follow ID recs for ABX--remains off antibiotics Follow neuro sx recs-- s/p Right occipital craniotomy with evacuation of intracerebral hematoma 02/09/21-not safe for anticoagulation Hypertension Per PCP Continue TPN for nutritional support DVT/GI PPX-- no AC 2/2 intracerebral hematoma D/W RN and RT Pt. is FULL code, with poor prognosis . Family is coming in next week. Will discuss advance directives again. Critical care time 30 minutes Updated 03/08/21 Continue current vent support 16/500/40%/5, DC sedation and return to pressure support 10/5 at 40% if tolerates continue to proceed with trach shield Follow CXR/ABG PRN--no changes Follow ID recs for ABX--remains off antibiotics Follow neuro sx recs-- s/p Right occipital craniotomy with evacuation of intracerebral hematoma 02/09/21- Follow neurology recs--no new recommendations at this time Continue TPN for nutritional support DVT/GI PPX-- no AC 2/2 intracerebral hematoma D/W RN and RT Pt. is FULL code, with poor prognosis Critical care time 30 minutes RAJIV HORNE MD Mar 10, 2021 05:55
[2021-03-10] MEDS: DEXMEDETOMIDINE 400 MCG in IV NORMAL SALINE 100ML 96 ML IV PRN ×4 (06:10→21:55)
[2021-03-10 06:41] LABS: ALBUMIN 2.5 g/dL (3.4-5.0); CALCIUM 9.4 mg/dL (8.5-10.1); CREATININE 0.9 mg/dL (0.7-1.3); GFR 104.2; PHOSPHORUS 5.2 mg/dL (2.6-4.7); POTASSIUM 4.4 mmol/L (3.5-5.1)
--- NOTE | 2021-03-10 08:21 | PDOC ---
PROGRESS NOTES Date of Service DATE: 03/10/21 TIME: 08:18 Assessment Large right temporo-occipital intraparenchymal bleed, most likely lobar hemorrhage from hypertension, consider venous sinus thrombosis, less likely in this location, aneurysmal bleed, head trauma (also unlikely). 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 Subjective None Objective Vital Signs Date Time Temp Pulse Resp B/P (MAP) Pulse Ox O2 Delivery O2 Flow Rate FiO2 03/10/21 08:00 Mechanical Ventilator 03/10/21 07:29 97 03/10/21 07:00 73 16 108/73 (85) 03/10/21 04:00 99.6 99.6 Intake and Output 03/10/21 07:00 Intake Total 2377 ml Output Total 2895 ml Balance -518 ml Intake Oral 125 ml IV Total 2252 ml Output Urine Total 2645 ml Gastric Drainage Total 250 ml PHYSICAL EXAM Intubated, sedated, no response to pain, no vocalization, no following commands. Eyes open spontaneously in response to visual threat PERRL. EOMI. CN: no focal findings. Muscle tone: normal. Muscle strength: Not testable DTR: 1+ Plantar reflex: Silent Gait: not examined Sensory exam: Not testable. Cerebellar: Not testable Review of Relevant I have reviewed the following items neela (where applicable) has been applied. Labs Laboratory Tests Test 03/08/21 11:10 03/08/21 18:34 03/08/21 22:09 03/09/21 00:22 Glucose (Fingerstick) 192 mg/dL (70-99) 221 mg/dL (70-99) 188 mg/dL (70-99) 184 mg/dL (70-99) Test 03/09/21 06:30 03/09/21 06:34 03/09/21 14:55 03/09/21 18:15 White Blood Count 6.1 x10^3/uL (4.0-11.0) Red Blood Count 3.36 x10^6/uL (4.30-5.70) Hemoglobin 10.4 g/dL (13.0-17.5) Hematocrit 30.3 % (39.0-53.0) Mean Corpuscular Volume 90 fL (79-100) Mean Corpuscular Hemoglobin 31 pg (25-35) Mean Corpuscular Hemoglobin Concent 35 g/dL (31-37) Red Cell Distribution Width 13.7 % (11.5-14.5) Platelet Count 172 x10^3/uL (140-400) Neutrophils (%) (Auto) 58 % (31-73) Lymphocytes (%) (Auto) 28 % (24-48) Monocytes (%) (Auto) 10 % (0-9) Eosinophils (%) (Auto) 3 % (0-3) Basophils (%) (Auto) 1 % (0-3) Neutrophils # (Auto) 3.5 x10^3/uL (1.8-7.7) Lymphocytes # (Auto) 1.7 x10^3/uL (1.0-4.8) Monocytes # (Auto) 0.6 x10^3/uL (0.0-1.1) Eosinophils # (Auto) 0.2 x10^3/uL (0.0-0.7) Basophils # (Auto) 0.1 x10^3/uL (0.0-0.2) Sodium Level 131 mmol/L (136-145) Potassium Level 4.6 mmol/L (3.5-5.1) Chloride Level 98 mmol/L (98-107) Carbon Dioxide Level 29 mmol/L (21-32) Anion Gap 4 (6-14) Blood Urea Nitrogen 21 mg/dL (8-26) Creatinine 0.8 mg/dL (0.7-1.3) Estimated GFR (Cockcroft-Gault) 119.3 Glucose Level 187 mg/dL (70-99) Calcium Level 8.5 mg/dL (8.5-10.1) Glucose (Fingerstick) 176 mg/dL (70-99) 184 mg/dL (70-99) 165 mg/dL (70-99) Test 03/10/21 00:14 03/10/21 06:00 03/10/21 06:08 Glucose (Fingerstick) 157 mg/dL (70-99) 169 mg/dL (70-99) Sodium Level 135 mmol/L (136-145) Potassium Level 4.4 mmol/L (3.5-5.1) Chloride Level 99 mmol/L (98-107) Carbon Dioxide Level 29 mmol/L (21-32) Anion Gap 7 (6-14) Blood Urea Nitrogen 27 mg/dL (8-26) Creatinine 0.9 mg/dL (0.7-1.3) Estimated GFR (Cockcroft-Gault) 104.2 Glucose Level 165 mg/dL (70-99) Calcium Level 9.4 mg/dL (8.5-10.1) Phosphorus Level 5.2 mg/dL (2.6-4.7) Albumin 2.5 g/dL (3.4-5.0) Laboratory Tests Test 03/09/21 14:55 03/09/21 18:15 03/10/21 00:14 03/10/21 06:00 Glucose (Fingerstick) 184 mg/dL (70-99) 165 mg/dL (70-99) 157 mg/dL (70-99) Sodium Level 135 mmol/L (136-145) Potassium Level 4.4 mmol/L (3.5-5.1) Chloride Level 99 mmol/L (98-107) Carbon Dioxide Level 29 mmol/L (21-32) Anion Gap 7 (6-14) Blood Urea Nitrogen 27 mg/dL (8-26) Creatinine 0.9 mg/dL (0.7-1.3) Estimated GFR (Cockcroft-Gault) 104.2 Glucose Level 165 mg/dL (70-99) Calcium Level 9.4 mg/dL (8.5-10.1) Phosphorus Level 5.2 mg/dL (2.6-4.7) Albumin 2.5 g/dL (3.4-5.0) Test 03/10/21 06:08 Glucose (Fingerstick) 169 mg/dL (70-99) Microbiology 02/23/21 Gram Stain - Final, Complete 02/23/21 Aerobic Culture - Final, Complete 02/22/21 Blood Culture - Final, Complete NO GROWTH AFTER 5 DAYS 02/22/21 Gram Stain Evaluation - Final, Complete 02/22/21 Respiratory Culture - Final, Complete Medications Current Medications Nicardipine HCl 50 mg/Sodium Chloride 250 ml @ 12.5 mls/hr CONT PRN IV SEE I/O RECORD Last administered on 02/26/21at 01:20; Start 02/09/21 at 06:15 Labetalol HCl (Normodyne Iv Push) 10 mg PRN Q2HR PRN IVP HYPERTENSION- 1ST CHOICE Last administered on 03/08/21at 09:05; Start 02/09/21 at 06:15 Lorazepam (Ativan Inj) 2 mg 1X ONCE IVP Last administered on 02/09/21at 10:54; Start 02/09/21 at 10:45; Stop 02/09/21 at 10:46; Status DC Lorazepam (Ativan Inj) 2 mg 1X ONCE IVP Last administered on 02/09/21at 11:00; Start 02/09/21 at 11:00; Stop 02/09/21 at 11:01; Status DC Fentanyl Citrate (Fentanyl 2ml Vial) 25 mcg PRN Q2HR PRN IVP MODERATE TO SEVERE PAIN Last administered on 02/09/21at 13:37; Start 02/09/21 at 13:30; Stop 02/18/21 at 22:53; Status DC Info (Review Meds) 1 ea PRN 1X PRN MC SEE COMMENTS; Start 02/09/21 at 15:00 Acetaminophen (Tylenol Supp) 650 mg PRN Q6HRS PRN MI FEVER > 100.5'F or 38'C; Start 02/09/21 at 15:00; Stop 02/11/21 at 21:12; Status DC Albuterol Sulfate (Ventolin Neb Soln) 2.5 mg PRN Q4HRS PRN NEB SHORTNESS OF BREATH; Start 02/09/21 at 15:15 Iohexol (Omnipaque 350 Mg/ml) 75 ml 1X ONCE IV Last administered on 02/09/21at 15:52; Start 02/09/21 at 15:30; Stop 02/09/21 at 15:35; Status DC Iohexol (Omnipaque 350 Mg/ml) 100 ml STK-MED ONCE .ROUTE ; Start 02/09/21 at 15:26; Stop 02/09/21 at 15:27; Status DC Info (CONTRAST GIVEN -- Rx MONITORING) 1 each PRN DAILY PRN MC SEE COMMENTS; Start 02/09/21 at 15:45; Stop 02/11/21 at 15:44; Status DC Propofol 100 ml @ As Directed STK-MED ONCE IV ; Start 02/09/21 at 15:51; Stop 02/09/21 at 15:51; Status DC Rocuronium Yale (Zemuron) 50 mg STK-MED ONCE .ROUTE ; Start 02/09/21 at 15:51; Stop 02/09/21 at 15:51; Status DC Lidocaine HCl (Lidocaine HCl 2% Abboject) 100 mg STK-MED ONCE .ROUTE ; Start 02/09/21 at 15:52; Stop 02/09/21 at 15:53; Status DC Propofol 100 ml @ 3.507 mls/ hr CONT PRN IV PER PROTOCOL Last administered on 03/10/21at 06:10; Start 02/09/21 at 16:15 Lidocaine HCl (Lidocaine HCl 2% Abboject) 100 mg 1X ONCE IV Last administered on 02/09/21at 16:17; Start 02/09/21 at 16:15; Stop 02/09/21 at 16:17; Status DC Rocuronium Yale (Zemuron) 50 mg 1X ONCE IV Last administered on 02/09/21at 16:17; Start 02/09/21 at 16:15; Stop 02/09/21 at 16:17; Status DC Rocuronium Yale (Zemuron) 100 mg STK-MED ONCE .ROUTE ; Start 02/09/21 at 16:31; Stop 02/09/21 at 16:32; Status DC Gelatin (Gelfoam Size 100) 1 each STK-MED ONCE .ROUTE Last administered on 02/09/21at 17:49; Start 02/09/21 at 16:33; Stop 02/09/21 at 16:33; Status DC Bupivacaine HCl/ Epinephrine Bitart (Sensorcain-Epi 0.5%-1:[id number] Mpf) 30 ml STK-MED ONCE .ROUTE Last administered on 02/09/21at 17:49; Start 02/09/21 at 16:33; Stop 02/09/21 at 16:33; Status DC Cellulose (Surgicel Hemostat 4x8) 1 each STK-MED ONCE .ROUTE Last administered on 02/09/21at 18:38; Start 02/09/21 at 16:33; Stop 02/09/21 at 16:33; Status DC Thrombin 20,000 unit STK-MED ONCE TP Last administered on 02/09/21at 17:49; Start 02/09/21 at 16:33; Stop 02/09/21 at 16:33; Status DC Fentanyl Citrate (Fentanyl 2ml Vial) 75 mcg 1X ONCE IVP Last administered on 02/09/21at 16:45; Start 02/09/21 at 16:45; Stop 02/09/21 at 16:47; Status DC Propofol (Diprivan) 200 mg 1X ONCE IV ; Start 02/09/21 at 17:15; Stop 02/09/21 at 17:16; Status DC Lidocaine HCl (Lidocaine HCl 2% Abboject) 100 mg 1X ONCE IV ; Start 02/09/21 at 17:15; Stop 02/09/21 at 17:16; Status DC Rocuronium Yale (Zemuron) 50 mg 1X ONCE IV ; Start 02/09/21 at 17:15; Stop 02/09/21 at 17:16; Status DC Propofol 100 ml @ 0 mls/hr CONT PRN PRN IV SEDATION; Start 02/09/21 at 17:15; Stop 02/10/21 at 05:14; Status DC Cefazolin Sodium (Ancef) 1 gm STK-MED ONCE IVP ; Start 02/09/21 at 17:28; Stop 02/09/21 at 17:28; Status DC Fentanyl Citrate (Fentanyl 2ml Vial) 100 mcg STK-MED ONCE .ROUTE ; Start 02/09/21 at 17:43; Stop 02/09/21 at 17:43; Status DC Rocuronium Yale (Zemuron) 100 mg STK-MED ONCE .ROUTE ; Start 02/09/21 at 17:58; Stop 02/09/21 at 17:59; Status DC Vecuronium Yale (Norcuron Bolus) 10 mg STK-MED ONCE IV ; Start 02/09/21 at 18:49; Stop 02/09/21 at 18:50; Status DC Sodium Chloride (SODIUM CHLORIDE 20ml) 20 ml STK-MED ONCE IJ ; Start 02/09/21 at 18:50; Stop 02/09/21 at 18:50; Status DC Sevoflurane (Ultane) 90 ml STK-MED ONCE IH ; Start 02/09/21 at 19:20; Stop 02/09/21 at 19:21; Status DC Fentanyl Citrate 30 ml @ 2.5 mls/hr CONT PRN IV SEE PROTOCOL Last administered on 02/09/21at 23:40; Start 02/09/21 at 23:15; Stop 02/10/21 at 04:43; Status DC Fentanyl Citrate 55 ml @ 0 mls/hr CONT PRN IV SEE I/O Last administered on 03/09/21at 10:58; Start 02/10/21 at 05:00 Potassium Chloride/Dextrose/ Sod Cl 1,000 ml @ 80 mls/hr [id number] IV ; Start 02/10/21 at 09:00; Stop 02/10/21 at 13:21; Status DC Pantoprazole Sodium (PROTONIX VIAL for IV PUSH) 40 mg DAILYAC IVP Last administered on 03/09/21at 10:53; Start 02/10/21 at 09:00 Lidocaine HCl (Buffered Lidocaine 1%) 3 ml STK-MED ONCE .ROUTE ; Start 02/10/21 at 13:18; Stop 02/10/21 at 13:18; Status DC Sodium Chloride 1,000 ml @ 80 mls/hr [id number] IV Last administered on 02/12/21at 03:00; Start 02/10/21 at 13:30; Stop 02/12/21 at 15:36; Status DC Lidocaine HCl (Buffered Lidocaine 1%) 6 ml 1X ONCE INJ Last administered on 02/10/21at 13:57; Start 02/10/21 at 13:45; Stop 02/10/21 at 13:46; Status DC Potassium Chloride/Water 100 ml @ 100 mls/hr Q1H IV Last administered on 02/11/21at 10:07; Start 02/11/21 at 08:00; Stop 02/11/21 at 09:59; Status DC Piperacillin Sod/ Tazobactam Sod 3.375 gm/Sodium Chloride 50 ml @ 100 mls/hr Q6HRS IV Last administered on 03/07/21at 05:35; Start 02/11/21 at 09:00; Stop 03/07/21 at 09:45; Status DC Info (Tpn Per Pharmacy) 1 each PRN DAILY PRN MC SEE COMMENTS Last administered on 03/09/21at 14:08; Start 02/11/21 at 11:15 Sodium Chloride 90 meq/Potassium Chloride 50 meq/ Potassium Phosphate 13.6 mmol/Magnesium Sulfate 10 meq/ Calcium Gluconate 10 meq/ Multivitamins 5 ml/Zinc/Copper/ Manganese/ Selenium 1 ml/ Total Parenteral Nutrition/Amino Acids/Dextrose 1,512 ml @ 63 mls/hr TPN CONT IV Last administered on 02/11/21at 22:32; Start 02/11/21 at 22:00; Stop 02/12/21 at 21:59; Status DC Furosemide (Lasix) 20 mg 1X ONCE IVP Last administered on 02/11/21at 15:11; Start 02/11/21 at 15:30; Stop 02/11/21 at 15:31; Status DC Furosemide (Lasix) 20 mg 1X ONCE IVP Last administered on 02/11/21at 17:00; Start 02/11/21 at 17:00; Stop 02/11/21 at 17:01; Status DC Midazolam HCl 100 ml @ 1 mls/hr CONT PRN IV SEE PROTOCOL Last administered on 02/13/21at 20:58; Start 02/11/21 at 19:30 Acetaminophen (Tylenol Supp) 650 mg PRN Q6HRS PRN MI MILD PAIN / TEMP > 100.3'F; Start 02/11/21 at 21:15 Sodium Chloride 80 meq/Potassium Chloride 50 meq/ Potassium Phosphate 13.6 mmol/Magnesium Sulfate 6 meq/ Calcium Gluconate 10 meq/ Multivitamins 5 ml/Zinc/Copper/ Manganese/ Selenium 1 ml/ Total Parenteral Nutrition/Amino Acids/Dextrose 1,512 ml @ 63 mls/hr TPN CONT IV Last administered on 02/12/21at 22:09; Start 02/12/21 at 22:00; Stop 02/13/21 at 21:59; Status DC Furosemide (Lasix) 40 mg 1X ONCE IVP Last administered on 02/12/21at 12:44; Start 02/12/21 at 12:30; Stop 02/12/21 at 12:31; Status DC Insulin Human Lispro (HumaLOG) 0-5 UNITS Q6HRS SQ Last administered on 03/10/21at 06:11; Start 02/12/21 at 12:00 Dextrose (Dextrose 50%-Water Syringe) 12.5 gm PRN Q15MIN PRN IV SEE COMMENTS; Start 02/12/21 at 12:15 Clonidine HCl (Catapres Tts-3) 1 patch WEEKLY TD Last administered on 03/06/21at 09:07; Start 02/13/21 at 11:00 Sodium Chloride 80 meq/Potassium Chloride 50 meq/ Potassium Phosphate 13.6 mmol/Magnesium Sulfate 6 meq/ Calcium Gluconate 10 meq/ Multivitamins 5 ml/Zinc/Copper/ Manganese/ Selenium 1 ml/ Total Parenteral Nutrition/Amino Acid s/Dextrose 1,512 ml @ 63 mls/hr TPN CONT IV Last administered on 02/13/21at 21:42; Start 02/13/21 at 22:00; Stop 02/14/21 at 21:59; Status DC Potassium Acetate 50 meq/Potassium Phosphate 13.6 mmol/Magnesium Sulfate 6 meq/ Calcium Gluconate 10 meq/ Multivitamins 5 ml/Zinc/Copper/ Manganese/ Selenium 1 ml/ Total Parenteral Nutrition/Amino Acids/Dextrose 1,512 ml @ 63 mls/hr TPN CONT IV Last administered on 02/14/21at 21:59; Start 02/14/21 at 22:00; Stop 02/15/21 at 21:59; Status DC Insulin Glargine (Lantus Syringe) 10 unit QHS SQ Last administered on 02/15/21at 22:11; Start 02/14/21 at 21:00; Stop 02/16/21 at 12:42; Status DC Hydralazine HCl (Apresoline Inj) 10 mg PRN Q4HRS PRN IVP ELEVATED BP, SEE COMMENTS Last administered on 03/08/21at 11:14; Start 02/14/21 at 16:00 Potassium Acetate 50 meq/Potassium Phosphate 13.6 mmol/Magnesium Sulfate 6 meq/ Calcium Gluconate 10 meq/ Multivitamins 5 ml/Zinc/Copper/ Manganese/ Selenium 1 ml/ Total Parenteral Nutrition/Amino Acids/Dextrose 1,512 ml @ 63 mls/hr TPN C ONT IV Last administered on 02/15/21at 22:13; Start 02/15/21 at 22:00; Stop 02/16/21 at 21:59; Status DC Dexmedetomidine HCl 400 mcg/ Sodium Chloride 100 ml @ 0 mls/hr CONT PRN IV PER PROTOCOL Last administered on 03/10/21at 06:10; Start 02/15/21 at 14:15 Sodium Chloride 500 ml @ 500 mls/hr 1X PRN PRN IV SEE COMMENTS; Start 02/15/21 at 14:15 Atropine Sulfate (ATROPINE 0.5mg SYRINGE) 0.5 mg PRN Q5MIN PRN IV SEE COMMENTS; Start 02/15/21 at 14:15 Potassium Acetate 50 meq/Potassium Phosphate 13.6 mmol/Magnesium Sulfate 6 meq/ Calcium Gluconate 10 meq/ Multivitamins 5 ml/Zinc/Copper/ Manganese/ Selenium 1 ml/ Total Parenteral Nutrition/Amino Acids/Dextrose 1,512 ml @ 63 mls/hr TPN CONT IV Last administered on 02/16/21at 22:59; Start 02/16/21 at 22:00; Stop 02/17/21 at 21:59; Status DC Insulin Glargine (Lantus Syringe) 14 unit QHS SQ Last administered on 02/16/21at 21:14; Start 02/16/21 at 21:00; Stop 02/17/21 at 14:15; Status DC Potassium Acetate 50 meq/Potassium Phosphate 13.6 mmol/Magnesium Sulfate 6 meq/ Calcium Gluconate 10 meq/ Multivitamins 5 ml/Zinc/Copper/ Manganese/ Selenium 1 ml/ Total Parenteral Nutrition/Amino Acids/Dextrose 1,512 ml @ 63 mls/hr TPN CONT IV Last administered on 02/17/21at 20:48; Start 02/17/21 at 22:00; Stop 02/18/21 at 21:59; Status DC Dextrose 1,000 ml @ 75 mls/hr [id number] IV Last administered on 02/18/21at 13:51; Start 02/17/21 at 10:30; Stop 02/19/21 at 12:57; Status DC Insulin Glargine (Lantus Syringe) 18 unit QHS SQ Last administered on 02/17/21at 20:46; Start 02/17/21 at 21:00; Stop 02/18/21 at 11:56; Status DC Insulin Glargine (Lantus Syringe) 22 unit QHS SQ Last administered on 02/18/21at 21:00; Start 02/18/21 at 21:00; Stop 02/19/21 at 14:08; Status DC Potassium Acetate 50 meq/Potassium Phosphate 13.6 mmol/Magnesium Sulfate 6 meq/ Calcium Gluconate 10 meq/ Multivitamins 5 ml/Zinc/Copper/ Manganese/ Selenium 1 ml/ Total Parenteral Nutrition/Amino Acids/Dextrose 1,512 ml @ 63 mls/hr TPN CONT IV Last administered on 02/18/21at 21:43; Start 02/18/21 at 22:00; Stop 02/19/21 at 21:59; Status DC Potassium Acetate 50 meq/Potassium Phosphate 13.6 mmol/Magnesium Sulfate 6 meq/ Calcium Gluconate 10 meq/ Multivitamins 5 ml/Zinc/Copper/ Manganese/ Selenium 1 ml/ Total Parenteral Nutrition/Amino Acids/Dextrose 2,040 ml @ 85 mls/hr TPN CONT IV Last administered on 02/19/21at 20:56; Start 02/19/21 at 22:00; Stop 02/20/21 at 21:59; Status DC Insulin Glargine (Lantus Syringe) 25 unit QHS SQ Last administered on 02/20/21at 22:11; Start 02/19/21 at 21:00; Stop 02/21/21 at 10:10; Status DC Acetaminophen (Tylenol) 650 mg PRN Q6HRS PRN PEG MILD PAIN / TEMP > 100.3'F Last administered on 03/08/21at 09:40; Start 02/19/21 at 18:00 Potassium Acetate 50 meq/Potassium Phosphate 13.6 mmol/Magnesium Sulfate 6 meq/ Calcium Gluconate 10 meq/ Multivitamins 5 ml/Zinc/Copper/ Manganese/ Selenium 1 ml/ Total Parenteral Nutrition/Amino Acids/Dextrose 2,040 ml @ 85 mls/hr TPN CONT IV Last administered on 02/20/21at 22:10; Start 02/20/21 at 22:00; Stop 02/21/21 at 21:59; Status DC Insulin Glargine (Lantus Syringe) 27 unit QHS SQ Last administered on 03/01/21at 21:18; Start 02/21/21 at 21:00; Stop 03/02/21 at 13:32; Status DC Magnesium Sulfate 50 ml @ 25 mls/hr 1X ONCE IV Last administered on 02/21/21at 11:30; Start 02/21/21 at 11:00; Stop 02/21/21 at 12:59; Status DC Potassium Acetate 50 meq/Potassium Phosphate 13.6 mmol/Magnesium Sulfate 8 meq/ Calcium Gluconate 10 meq/ Multivitamins 5 ml/Zinc/Copper/ Manganese/ Selenium 1 ml/ Total Parenteral Nutrition/Amino Acids/Dextrose 2,040 ml @ 85 mls/hr TPN CONT IV Last administered on 02/21/21at 21:23; Start 02/21/21 at 22:00; Stop 02/22/21 at 21:59; Status DC Daptomycin 570 mg/ Sodium Chloride 50 ml @ 100 mls/hr Q24H IV Last administered on 02/24/21at 13:10; Start 02/22/21 at 12:00; Stop 02/25/21 at 10: 34; Status DC Linezolid/Dextrose 300 ml @ 300 mls/hr Q12HR IV Last administered on 03/02/21at 08:26; Start 02/22/21 at 09:00; Stop 03/02/21 at 08:42; Status DC Potassium Acetate 50 meq/Potassium Phosphate 13.6 mmol/Magnesium Sulfate 8 meq/ Calcium Gluconate 5 meq/ Multivitamins 5 ml/Zinc/Copper/ Manganese/ Selenium 1 ml/ Total Parenteral Nutrition/Amino Acids/Dextrose 2,040 ml @ 85 mls/hr TPN CONT IV Last administered on 02/22/21at 21:32; Start 02/22/21 at 22:00; Stop 02/23/21 at 21:59; Status DC Fentanyl Citrate (Fentanyl 2ml Vial) 25 mcg PRN Q5MIN PRN IVP MILD PAIN 1-3; Start 02/23/21 at 06:00; Stop 02/24/21 at 05:59; Status DC Fentanyl Citrate (Fentanyl 2ml Vial) 50 mcg PRN Q5MIN PRN IVP MODERATE PAIN 4- 6; Start 02/23/21 at 06:00; Stop 02/24/21 at 05:59; Status DC Morphine Sulfate (Morphine Sulfate) 1 mg PRN Q10MIN PRN IVP SEVERE PAIN 7-10; Start 02/23/21 at 06:00; Stop 02/24/21 at 05:59; Status DC Ringer's Solution 1,000 ml @ 30 mls/hr Q24H IV Last administered on 02/23/21at 11:00; Start 02/23/21 at 06:00; Stop 02/23/21 at 17:59; Status DC Hydromorphone HCl (Dilaudid) 0.5 mg PRN Q10MIN PRN IVP SEVERE PAIN 7-10, 2nd CHOICE; Start 02/23/21 at 06:00; Stop 02/24/21 at 05:59; Status DC Prochlorperazine Edisylate (Compazine) 5 mg PACU PRN PRN IVP NAUSEA, MRX1; Start 02/23/21 at 06:00; Stop 02/24/21 at 05:59; Status DC Cellulose (Surgicel Fibrillar 1x2) 1 each STK-MED ONCE .ROUTE ; Start 02/23/21 at 08:23; Stop 02/23/21 at 08:23; Status DC Lidocaine/ Epinephrine (LIDOCAINE 1%-EPI 1:100,000 Multi-Dose) 20 ml STK-MED ONCE .ROUTE Last administered on 02/23/21at 13:33; Start 02/23/21 at 08:23; Stop 02/23/21 at 08:23; Status DC Potassium Acetate 50 meq/Potassium Phosphate 13.6 mmol/Magnesium Sulfate 8 meq/ Calcium Gluconate 5 meq/ Multivitamins 5 ml/Zinc/Copper/ Manganese/ Selenium 1 ml/ Total Parenteral Nutrition/Amino Acids/Dextrose 2,040 ml @ 85 mls/hr TPN CONT IV ; Start 02/23/21 at 22:00; Stop 02/24/21 at 21:59; Status DC Rocuronium Yale (Zemuron) 50 mg STK-MED ONCE .ROUTE ; Start 02/23/21 at 12:13; Stop 02/23/21 at 12:13; Status DC Fentanyl Citrate (Fentanyl 2ml Vial) 100 mcg STK-MED ONCE .ROUTE ; Start 02/23/21 at 12:24; Stop 02/23/21 at 12:24; Status DC Insulin Human Lispro (HumaLOG VIAL for OP,RR ONLY) 0-10 units PRN Q1HR PRN SQ PER PROTOCOL Last administered on 02/23/21at 13:00; Start 02/23/21 at 13:15; Stop 02/24/21 at 13:14; Status DC Rocuronium Yale (Zemuron) 100 mg STK-MED ONCE .ROUTE ; Start 02/23/21 at 13:22; Stop 02/23/21 at 13:23; Status DC Albuterol Sulfate (Ventolin Hfa) 60 puff STK-MED ONCE INH ; Start 02/23/21 at 13:47; Stop 02/23/21 at 13:48; Status DC Sevoflurane (Ultane) 60 ml STK-MED ONCE IH ; Start 02/23/21 at 14:21; Stop 02/23/21 at 14:21; Status DC Potassium Acetate 50 meq/Potassium Phosphate 13.6 mmol/Magnesium Sulfate 8 meq/ Calcium Gluconate 5 meq/ Multivitamins 5 ml/Zinc/Copper/ Manganese/ Selenium 1 ml/ Total Parenteral Nutrition/Amino Acids/Dextrose 2,040 ml @ 85 mls/hr TPN CONT IV ; Start 02/25/21 at 22:00; Stop 02/26/21 at 21:59; Status DC Potassium Acetate 50 meq/Potassium Phosphate 13.6 mmol/Magnesium Sulfate 8 meq/ Calcium Gluconate 5 meq/ Multivitamins 5 ml/Zinc/Copper/ Manganese/ Selenium 1 ml/ Total Parenteral Nutrition/Amino Acids/Dextrose 2,040 ml @ 85 mls/hr TPN CONT IV Last administered on 02/26/21at 21:27; Start 02/26/21 at 22:00; Stop 02/27/21 at 21:59; Status DC Potassium Acetate 50 meq/Potassium Phosphate 13.6 mmol/Magnesium Sulfate 8 meq/ Calcium Gluconate 5 meq/ Multivitamins 5 ml/Zinc/Copper/ Manganese/ Selenium 1 ml/ Total Parenteral Nutrition/Amino Acids/Dextrose 2,040 ml @ 85 mls/hr TPN CONT IV Last administered on 02/27/21at 21:01; Start 02/27/21 at 22:00; Stop 02/28/21 at 21:59; Status DC Potassium Acetate 50 meq/Potassium Phosphate 13.6 mmol/Magnesium Sulfate 8 meq/ Calcium Gluconate 5 meq/ Multivitamins 5 ml/Zinc/Copper/ Manganese/ Selenium 1 ml/ Total Parenteral Nutrition/Amino Acids/Dextrose 2,040 ml @ 85 mls/hr TPN CONT IV Last administered on 02/28/21at 21:44; Start 02/28/21 at 22:00; Stop 03/01/21 at 21:59; Status DC Potassium Acetate 50 meq/Potassium Phosphate 13.6 mmol/Magnesium Sulfate 8 meq/ Calcium Gluconate 5 meq/ Multivitamins 5 ml/Zinc/Copper/ Manganese/ Selenium 1 ml/ Total Parenteral Nutrition/Amino Acids/Dextrose 2,040 ml @ 85 mls/hr TPN CONT IV Last administered on 03/01/21at 21:22; Start 03/01/21 at 22:00; Stop 03/02/21 at 21:59; Status DC Potassium Acetate 50 meq/Potassium Phosphate 13.6 mmol/Magnesium Sulfate 8 meq/ Multivitamins 5 ml/Zinc/Copper/ Manganese/ Selenium 1 ml/ Total Parenteral Nutrition/Amino Acids/Dextrose 2,040 ml @ 85 mls/hr TPN CONT IV Last administered on 03/02/21at 21:11; Start 03/02/21 at 22:00; Stop 03/03/21 at 21:59; Status DC Insulin Glargine (Lantus Syringe) 35 unit QHS SQ Last administered on 03/09/21at 21:09; Start 03/02/21 at 21:00 Potassium Acetate 50 meq/Potassium Phosphate 13.6 mmol/Magnesium Sulfate 8 meq/ Multivitamins 5 ml/Zinc/Copper/ Manganese/ Selenium 1 ml/ Total Parenteral Nutrition/Amino Acids/Dextrose 1,800 ml @ 75 mls/hr TPN CONT IV Last administered on 03/03/21at 21:54; Start 03/03/21 at 22:00; Stop 03/04/21 at 21:59; Status DC Docusate Sodium (Colace Solution) 100 mg DAILY PO Last administered on 03/09/21at 10:59; Start 03/03/21 at 10:00 Polyethylene Glycol (miraLAX PACKET) 17 gm DAILY PO Last administered on 03/09/21at 10:59; Start 03/03/21 at 10:00 Potassium Acetate 40 meq/Potassium Phosphate 13.6 mmol/Magnesium Sulfate 10 meq/ Multivitamins 5 ml/Zinc/Copper/ Manganese/ Selenium 1 ml/ Total Parenteral Nutrition/Amino Acids/Dextrose 1,800 ml @ 75 mls/hr TPN CONT IV Last administered on 03/04/21at 22:16; Start 03/04/21 at 22:00; Stop 03/05/21 at 21:59; Status DC Linezolid/Dextrose 300 ml @ 300 mls/hr Q12HR IV Last administered on 03/07/21at 08:53; Start 03/05/21 at 09:00; Stop 03/07/21 at 09:45; Status DC Magnesium Sulfate 50 ml @ 25 mls/hr 1X ONCE IV Last administered on 03/05/21at 13:31; Start 03/05/21 at 14:00; Stop 03/05/21 at 15:59; Status DC Sodium Chloride 40 meq/Potassium Acetate 40 meq/ Potassium Phosphate 13.6 mmol/Magnesium Sulfate 10 meq/ Multivitamins 5 ml/Zinc/Copper/ Manganese/ Selenium 1 ml/ Total Parenteral Nutrition/Amino Acids/Dextrose 1,800 ml @ 75 mls/hr TPN CONT IV Last administered on 03/05/21at 21:20; Start 03/05/21 at 22:00; Stop 03/06/21 at 21:59; Status DC Sodium Chloride 40 meq/Potassium Acetate 40 meq/ Potassium Phosphate 13.6 mmol/Magnesium Sulfate 10 meq/ Multivitamins 5 ml/Zinc/Copper/ Manganese/ Selenium 1 ml/ Total Parenteral Nutrition/Amino Acids/Dextrose 1,800 ml @ 75 mls/hr TPN CONT IV Last administered on 03/06/21at 21:35; Start 03/06/21 at 22:00; Stop 03/07/21 at 21:59; Status DC Vecuronium Yale (Norcuron Bolus) 10 mg STK-MED ONCE IV ; Start 03/07/21 at 11:15; Stop 03/07/21 at 11:16; Status DC Vecuronium Yale (Norcuron Bolus) 10 mg 1X ONCE IV Last administered on 03/07/21at 11:59; Start 03/07/21 at 11:30; Stop 03/07/21 at 12:00; Status DC Sodium Chloride 40 meq/Potassium Acetate 40 meq/ Potassium Phosphate 13.6 mmol/Magnesium Sulfate 10 meq/ Multivitamins 5 ml/Zinc/Copper/ Manganese/ Selenium 1 ml/ Total Parenteral Nutrition/Amino Acids/Dextrose 1,800 ml @ 75 mls/hr TPN CONT IV Last administered on 03/07/21at 21:41; Start 03/07/21 at 22:00; Stop 03/08/21 at 21:59; Status DC Sodium Chloride 40 meq/Potassium Acetate 40 meq/ Potassium Phosphate 13.6 mmol/Magnesium Sulfate 10 meq/ Multivitamins 5 ml/Zinc/Copper/ Manganese/ Selenium 1 ml/ Total Parenteral Nutrition/Amino Acids/Dextrose 1,560 ml @ 65 mls/hr TPN CONT IV Last administered on 03/08/21at 22:01; Start 03/08/21 at 22:00; Stop 03/09/21 at 21:59; Status DC Sodium Chloride 40 meq/Potassium Acetate 40 meq/ Potassium Phosphate 13.6 mmol/Magnesium Sulfate 10 meq/ Multivitamins 5 ml/Zinc/Copper/ Manganese/ Selenium 1 ml/ Total Parenteral Nutrition/Amino Acids/Dextrose 1,560 ml @ 65 mls/hr TPN CONT IV Last administered on 03/09/21at 22:33; Start 03/09/21 at 22:00; Stop 03/10/21 at 21:59 Vitals/I & O Vital Sign - Last 24 Hours 03/09/21 03/09/21 03/09/21 03/09/21 09:00 09:50 10:00 10:58 Pulse 66 70 Resp 19 19 B/P (MAP) 166/99 (121) Pulse Ox 96 100 100 100 O2 Delivery Ventilator Ventilator Ventilator 03/09/21 03/09/21 03/09/21 03/09/21 11:00 11:28 11:43 12:00 Pulse 68 Resp 16 B/P (MAP) 131/79 (96) Pulse Ox 100 100 100 O2 Delivery Ventilator Ventilator Mechanical Ventilator 03/09/21 03/09/21 03/09/21 03/09/21 12:00 13:00 13:20 14:00 Temp 97.8 97.8 Pulse 68 70 72 Resp 16 16 16 B/P (MAP) 117/84 (95) 179/90 (119) 123/70 (87) Pulse Ox 100 100 100 100 O2 Delivery Ventilator Ventilator Ventilator Ventilator 03/09/21 03/09/21 03/09/21 03/09/21 15:00 16:00 16:00 16:04 Temp 98.0 98.0 Pulse 74 68 Resp 16 16 B/P (MAP) 115/62 (79) 116/63 (80) Pulse Ox 100 100 O2 Delivery Ventilator Mechanical Ventilator Ventilator Ventilator 03/09/21 03/09/21 03/09/21 03/09/21 17:00 18:00 18:24 19:00 Pulse 68 66 66 Resp 16 16 20 B/P (MAP) 108/57 (74) 104/58 (73) 108/62 (77) Pulse Ox 100 100 98 O2 Delivery Ventilator Ventilator Ventilator Ventilator 03/09/21 03/09/21 03/09/21 03/09/21 20:00 20:00 20:00 21:00 Temp 99.5 99.5 Pulse 68 70 Resp 20 16 B/P (MAP) 116/70 (85) 117/78 (91) Pulse Ox 98 99 99 O2 Delivery Ventilator Ventilator Mechanical Ventilator Ventilator 03/09/21 03/09/21 03/09/21 03/09/21 22:00 22:25 23:00 23:59 Pulse 64 72 Resp 16 18 B/P (MAP) 128/77 (94) 120/79 (93) Pulse Ox 98 99 98 O2 Delivery Ventilator Ventilator Ventilator Mechanical Ventilator 03/09/21 03/10/21 03/10/21 03/10/21 23:59 01:00 01:00 02:00 Temp 99.4 99.4 Pulse 80 73 73 Resp 16 16 18 B/P (MAP) 138/82 (100) 118/78 (91) 138/85 (102) Pulse Ox 98 99 99 99 O2 Delivery Ventilator Ventilator Ventilator Ventilator 03/10/21 03/10/21 03/10/21 03/10/21 03:00 03:00 04:00 04:00 Temp 99.6 99.6 Pulse 74 82 Resp 16 16 B/P (MAP) 107/69 (82) 120/80 (93) Pulse Ox 100 99 99 O2 Delivery Ventilator Ventilator Mechanical Ventilator Ventilator 03/10/21 03/10/21 03/10/21 03/10/21 05:00 05:00 06:00 07:00 Pulse 74 70 73 Resp 16 16 16 B/P (MAP) 108/74 (85) 110/63 (79) 108/73 (85) Pulse Ox 98 97 98 97 O2 Delivery Ventilator Ventilator Ventilator Ventilator 03/10/21 03/10/21 07:29 08:00 Pulse Ox 97 O2 Delivery Ventilator Mechanical Ventilator Intake and Output 03/09/21 03/09/21 03/10/21 15:00 23:00 07:00 Intake Total 125 ml 1149 ml 1103 ml Output Total 1125 ml 1030 ml 740 ml Balance -1000 ml 119 ml 363 ml Justicifation of Admission Dx: Justifications for Admission: Justification of Admission Dx: Yes Acute Hemorrhagic Stroke: Acute Hemorrhagic Stroke EITAN LORENZO MD Mar 10, 2021 08:21
[2021-03-10] MEDS: DOCUSATE 100 MG/10 ML SOLUTION. PO SCH (08:43)
[2021-03-10] MEDS: POLYETHYLENE GLYCOL 3350 17 GM PACKET. PO SCH (08:43)
[2021-03-10] MEDS: PANTOPRAZOLE IV PUSH 40 MG VIAL. IVP SCH (08:43)
--- NOTE | 2021-03-10 10:07 | PDOC ---
PROGRESS NOTES Date of Service: DATE: 03/10/21 TIME: 10:07 Chief Complaint Chief Complaint Respiratory failure requiring intubation Status post tracheostomy FIRE BOSS hemorrhage Status post craniotomy 02/09/2021 Obesity Aspiration Hypertension COPD Acute kidney injury Severe malnutrition History of Present Illness History of Present Illness 03/10/2021 Eyes open spontaneously in response to visual threat did not tolerate T shield 8-04 Slight interval decrease in the attenuation of an acute to subacute intraparenchymal hemorrhage centered within the posterior right cerebral hemisphere due to evolving blood products. There is fairly stable surrounding edema and effacement of the posterior right lateral ventricle, favoring hemorrhagic transformation of a subacute infarction. Stable suspected hemorrhagic infarction within the left frontal lobe and stable small amount of acute subarachnoid hemorrhage along the cerebral convexities. There is also a stable small amount of intraventricular hemorrhage. There is no convincing obstructive hydrocephalus. remains on vent PS 10 and 40% family wants all measures and transfer to long-term acute care.// will need a tracheostomy and PEG Patient seen and examined in the ICU Interval development of a left frontal hypodensity concerning for subacute infarct. intubated but on spontaneous respirations 10 of pressure support with 40% FiO2 TPN hanging Moore to bedside drainage Sedated with propofol fentanyl and Dex Discussed with RN Chart reviewed remains critically ill Discontinue antibiotics 03-07 33 min cc time STATUS: ADM IN LOCATION: [address] [place] [address] 03-07 PREOPERATIVE DIAGNOSIS: Prolonged intubation and prolonged need for ventilatory support. POSTOPERATIVE DIAGNOSIS: Prolonged intubation and prolonged need for ventilatory support. PROCEDURE PERFORMED: Tracheostomy. SURGEON: Melony Avelar MD COFFEE GROWER: LORNA Santacruz ANESTHESIA: General endotracheal anesthesia. INDICATIONS FOR SURGERY: The patient is a 61-year-old male admitted to the hospital on 02/09/2021 after suffering a stroke. The patient underwent right occipital craniotomy with evacuation of intracerebral hematoma on 02/09/2021 and he has continued to not awaken from anesthesia since that time. Due to prolonged need for ventilatory support, the decision was made for the patient to undergo a tracheostomy. After the risks, benefits and alternatives of surgery were discussed with the patient's family, an informed consent was obtained. 03/08/2021 Slight interval decrease in the attenuation of an acute to subacute intraparenchymal hemorrhage centered within the posterior right cerebral hemisphere due to evolving blood products. There is fairly stable surrounding edema and effacement of the posterior right lateral ventricle, favoring hemorrhagic transformation of a subacute infarction. Stable suspected hemorrhagic infarction within the left frontal lobe and stable small amount of acute subarachnoid hemorrhage along the cerebral convexities. There is also a stable small amount of intraventricular hemorrhage. There is no convincing obstructive hydrocephalus. remains on vent PS 10 and 40% family wants all measures and transfer to long-term acute care.// will need a tracheostomy and PEG Patient seen and examined in the ICU Interval development of a left frontal hypodensity concerning for subacute infarct. intubated but on spontaneous respirations 10 of pressure support with 40% FiO2 TPN hanging Moore to bedside drainage Sedated with propofol fentanyl and Dex Discussed with RN Chart reviewed remains critically ill Discontinue antibiotics 03-07 32 min cc time STATUS: ADM IN LOCATION: [address] [place] [address] 03-07 PREOPERATIVE DIAGNOSIS: Prolonged intubation and prolonged need for vent ilatory support. POSTOPERATIVE DIAGNOSIS: Prolonged intubation and prolonged need for ventilatory support. PROCEDURE PERFORMED: Tracheostomy. SURGEON: Melony Avelar MD COFFEE GROWER: LORNA Santacruz 03/09/2021 did not tolerate T shield 8- Slight interval decrease in the attenuation of an acute to subacute intraparenchymal hemorrhage centered within the posterior right cerebral hemisphere due to evolving blood products. There is fairly stable surrounding edema and effacement of the posterior right lateral ventricle, favoring hemorrhagic transformation of a subacute infarction. Stable suspected hemorrhagic infarction within the left frontal lobe and stable small amount of acute subarachnoid hemorrhage along the cerebral convexities. There is also a stable small amount of intraventricular hemorrhage. There is no convincing obstructive hydrocephalus. remains on vent PS 10 and 40% family wants all measures and transfer to long-term acute care.// will need a tracheostomy and PEG Patient seen and examined in the ICU Interval development of a left frontal hypodensity concerning for subacute infarct. intubated but on spontaneous respirations 10 of pressure support with 40% FiO2 TPN hanging Moore to bedside drainage Sedated with propofol fentanyl and Dex Discussed with RN Chart reviewed remains critically ill Discontinue antibiotics 03-07 34 min cc time STATUS: ADM IN LOCATION: [address] [place] [address] 03-07 PREOPERATIVE DIAGNOSIS: Prolonged intubation and prolonged need for ventilatory support. POSTOPERATIVE DIAGNOSIS: Prolonged intubation and prolonged need for ventilatory support. PROCEDURE PERFORMED: Tracheostomy. SURGEON: Melony Avelar MD COFFEE GROWER: LORNA Santacruz ANESTHESIA: General endotracheal anesthesia. INDICATIONS FOR SURGERY: The patient is a 61-year-old male admitted to the hospital on 02/09/2021 after suffering a stroke. The patient underwent right occipital craniotomy with evacuation of intracerebral hematoma on 02/09/2021 and he has continued to not awaken from anesthesia since that time. Due to prolonged need for ventilatory support, the decision was made for the patient to undergo a tracheostomy. After the risks, benefits and alternatives of surgery were discussed with the patient's family, an informed consent was obtained. 03/08/2021 Slight interval decrease in the attenuation of an acute to subacute intraparenchymal hemorrhage centered within the posterior right cerebral hemisphere due to evolving blood products. There is fairly stable surrounding edema and effacement of the posterior right lateral ventricle, favoring hemorrhagic transformation of a subacute infarction. Stable suspected hemorrhagic infarction within the left frontal lobe and stable small amount of acute subarachnoid hemorrhage along the cerebral convexities. There is also a stable small amount of intraventricular hemorrhage. There is no convincing obstructive hydrocephalus. remains on vent PS 10 and 40% family wants all measures and transfer to long-term acute care.// will need a tracheostomy and PEG Patient seen and examined in the ICU Interval development of a left frontal hypodensity concerning for subacute infarct. intubated but on spontaneous respirations 10 of pressure support with 40% FiO2 TPN hanging Moore to bedside drainage Sedated with propofol fentanyl and Dex Discussed with RN Chart reviewed remains critically ill Discontinue antibiotics 03-07 32 min cc time STATUS: ADM IN LOCATION: [address] [place] [address] 03-07 PREOPERATIVE DIAGNOSIS: Prolonged intubation and prolonged need for ventilatory support. POSTOPERATIVE DIAGNOSIS: Prolonged intubation and prolonged need for ventilatory support. PROCEDURE PERFORMED: Tracheostomy. SURGEON: Melony Avelar MD COFFEE GROWER: LORNA Santacruz ANESTHESIA: General endotracheal anesthesia. INDICATIONS FOR SURGERY: The patient is a 61-year-old male admitted to the hospital on 02/09/2021 after suffering a stroke. The patient underwent right occipital craniotomy with evacuation of intracerebral hematoma on 02/09/2021 and he has continued to not awaken from anesthesia since that time. Due to prolonged need for ventilatory support, the decision was made for the patient to undergo a tracheostomy. After the risks, benefits and alternatives of surgery were discussed with the patient's family, an informed consent was obtained. 03/07/2021 Slight interval decrease in the attenuation of an acute to subacute intra parenchymal hemorrhage centered within the posterior right cerebral hemisphere due to evolving blood products. There is fairly stable surrounding edema and effacement of the posterior right lateral ventricle, favoring hemorrhagic transformation of a subacute infarction. Stable suspected hemorrhagic infarction within the left frontal lobe and stable small amount of acute subarachnoid hemorrhage along the cerebral convexities. There is also a stable small amount of intraventricular hemorrhage. There is no convincing obstructive hydrocephalus. remains on vent PS 10 and 40% family wants all measures and transfer to long-term acute care.// will need a tracheostomy and PEG Patient seen and examined in the ICU Interval development of a left frontal hypodensity concerning for subacute infarct. intubated but on spontaneous respirations 10 of pressure support with 40% FiO2 TPN hanging Moore to bedside drainage Sedated with propofol fentanyl and Dex Discussed with RN Chart reviewed remains critically ill Discontinue antibiotics 03-07 33 min cc time 03/06/2021 family wants all measures and transfer to long-term acute care.// will need a tracheostomy and PEG Patient seen and examined in the ICU Interval development of a left frontal hypodensity concerning for subacute infarct. intubated but on spontaneous respirations 10 of pressure support with 40% FiO2 considering starting OG feeds but still currently has TPN hanging Moore to bedside drainage Sedated with propofol fentanyl and Dex Discussed with RN Chart reviewed remains critically ill 33 min cc time 03/05/2021 Patient seen and examined in the ICU He is still intubated but on spontaneous respirations 10 of pressure support with 40% FiO2 We are considering starting OG feeds today but still currently has TPN hanging Moore to bedside drainage Sedated with propofol fentanyl and Dex Discussed with RN Chart reviewed He remains critically ill 03/04/2021 Patient seen and examined in the ICU He is currently on spontaneous respirations via tracheostomy with pressure sup port of 10 Discussed with RN Chart reviewed Patient still has TPN running but we are going to try to change that to OG feeds later today Sedated with fentanyl propofol and Precedex SCDs in place Moore to bedside drainage Remains critically ill 03/03/2021 Patient seen and examined in the ICU He has a clean dry intact tracheostomy Currently on spontaneous respirations with 10 of pressure support 40% FiO2 Discussed with RN Chart reviewed Has TPN hanging Sedated with fentanyl propofol and Precedex OG feeds are to suction SCDs in place Moore to bedside drainage He remains critically ill 03/02/2021 Patient seen and examined in the ICU We just changed him over to spontaneous respirations with 10 of pressure support and 40% FiO2 Discussed with RN and respiratory therapy He has been able to be on spontaneous respirations during the daytime for the past 3 days but we have placed him back on assist-control at nighttime Trach is clean and in tact Has Moore to bedside drainage SCDs in place OG is to suction Has IV TPN Has IV Zyvox Sedated with Precedex and propofol 03/01/2021 Patient seen and examined in the ICU He remains mechanically ventilated AC/16/500/40 5% with 5 of PEEP trach appears clean dry and intact He is a Moore bedside drainage Sedated with fentanyl and propofol Has TPN hanging Discussed with RN Discussed with case management Chart reviewed He remains very critically ill 02/28/2021 Patient seen and examined in the ICU He remains mechanically ventilated Has a tracheostomy in place Vent settings as follows AC/16/500/45/5 of PEEP Has SCDs in place Moore is to bedside drainage Sedated with Precedex fentanyl and propofol Has IV TPN Chart reviewed Discussed with RN He remains critically 02/27/2021 Patient seen and examined in the ICU He remains mechanically ventilated AC/16/500/40 5% with 5 of PEEP Has tracheostomy in place Has TPN running SCDs are in place Moore to bedside drainage Sedated with fentanyl and propofol Discussed with RN Chart reviewed He remains critically 02/26/2021: Low-grade fever overnight (99.6 F). On vent with FiO2 40%, PEEP 5. S/p tracheostomy 02/23. Per RN, some hypertension overnight (systolic BP 203) requiring IV nicardipine, but this has been titrated down and now able to resume as needed hydralazine. Recommend keep nicardipine on standby to maintain blood pressure <150/90 mmHg. Continue TPN but will likely need PEG tube and eventually long-term acute care. Due to low-grade fever, lines are being changed. Continue Zosyn and Zyvox, per ID. Critical care time 30 minutes spent reviewing charts, reviewing imaging, reviewing labs, and discussion with RN. 02/25/2021: Remains on vent with FiO2 40%, PEEP 5. Afebrile. Plan for follow-up CT head on Saturday. Continue Zosyn, per ID. Blood glucose well controlled. Critical care time 30 minutes spent reviewing charts, reviewing imaging, reviewing labs, and discussion with RN. 02/24/2021: Afebrile. Had tracheostomy performed yesterday. On vent with FiO2 40%, PEEP 5. Continue antibiotics, per ID. Critical care time 30 minutes reviewing labs, reviewing imaging, reviewing charts, discussed with RN. 02/23/2021: Patient remains intubated in ICU, FiO2 40%, PEEP 5. I believe plan is for trach today. Continue daptomycin, Zosyn, and Zyvox, per ID. Critical care time 30 minutes spent reviewing charts, reviewing labs, reviewing imaging, discussion with RN. 02/22/2011: Patient ange intubated in ICU. Febrile today, T-max 100.3. FiO2 40, PEEP 5. Continue treatment with Zosyn, per ID. Continue to wean sedation as tolerated. Plan for trach tomorrow. Critical care time 30 minutes spent reviewing chart, reviewing labs, imaging, and discussion with RN. 02/21/2021: Patient remains intubated in ICU, FiO2 40%, PEEP 5. Afebrile. POD #12, s/p right occipital craniotomy with evacuation of intracerebral hematoma (02/09/21). Chest x-ray today shows improving bibasilar opacities. Continue Zosyn, per ID. Critical care time 30 minutes spent reviewing charts, reviewing labs, reviewing imaging, discussion with RN. 02/20/2021: POD #11 Right occipital craniotomy with evacuation of intracerebral hematoma (02/09/21). Remains sedated on ventilator, FiO2 40%, PEEP 5. Chest x- ray from 02/18 showed unchanged bibasilar opacities; recommending follow-up to ensure resolution, particularly of focal opacities in the right lung base. Continue Zosyn. Continue supportive care. Critical care time 30 minutes spent reviewing charts, reviewing labs, reviewing imaging, discussion with RN. 02/19/2021 POD #11 Right occipital craniotomy with evacuation of intracerebral hematoma sedated on vent Patient seen and examined at bedside Continue antibiotics per infectious disease Weaning ventilator and sedation as tolerated extubation in the next few days Plan of care discussed with bedside nurse Expected interval evolution of a right posterior temporal/occipital intraparenchymal hematoma status post decompressive craniotomy Large right temporo-occipital intraparenchymal bleed, most likely lobar hemorrhage from hypertension, consider venous sinus thrombosis, less likely in this location, aneurysmal bleed, head trauma (also unlikely). craniotomy 7/8 evening Suspect of aspiration, respiratory failure, hypertension, chronic obstructive pulmonary disease, improving acute kidney injury cont Zosyn glucose uncontrolled add Lantus 22 UNITS SQ HS elevated troponin suspect stress induced ischemia 36 MIN CC TIME 02/18/2021 POD #10 Right occipital craniotomy with evacuation of intracerebral hematoma sedated on vent Patient seen and examined at bedside Continue antibiotics per infectious disease Weaning ventilator and sedation as tolerated extubation in the next few days Plan of care discussed with bedside nurse Expected interval evolution of a right posterior temporal/occipital intraparenchymal hematoma status post decompressive craniotomy Large right temporo-occipital intraparenchymal bleed, most likely lobar hemorrhage from hypertension, consider venous sinus thrombosis, less likely in this location, aneurysmal bleed, head trauma (also unlikely). Had craniotomy 7/ evening Suspect of aspiration, respiratory failure, hypertension, chronic obstructive pulmonary disease, improving acute kidney injury cont Zosyn glucose uncontrolled add Lantus 22 UNITS SQ HS 34 MIN CC TIME 02/17/2021 POD #8 Right occipital craniotomy with evacuation of intracerebral hematoma sedated on vent Patient seen and examined at bedside Good response to IV Lasix Continue antibiotics per infectious disease Weaning ventilator and sedation as tolerated extubation in the next few days Plan of care discussed with bedside nurse Expected interval evolution of a right posterior temporal/occipital intraparenchymal hematoma status post decompressive craniotomy Large right temporo-occipital intraparenchymal bleed, most likely lobar hemorrhage from hypertension, consider venous sinus thrombosis, less likely in this location, aneurysmal bleed, head trauma (also unlikely). Had craniotomy 7/8 evening Suspect of aspiration, respiratory failure, hypertension, chronic obstructive pulmonary disease, improving acute kidney injury cont Zosyn glucose uncontrolled add Lantus 18 UNITS SQ HS 33 MIN CC TIME 02/16/2021 POD #7 Right occipital craniotomy with evacuation of intracerebral hematoma sedated on vent Patient seen and examined at bedside Good response to IV Lasix Continue antibiotics per infectious disease Weaning ventilator and sedation as tolerated extubation in the next few days Plan of care discussed with bedside nurse Expected interval evolution of a right posterior temporal/occipital intraparenchymal hematoma status post decompressive craniotomy Large right temporo-occipital intraparenchymal bleed, most likely lobar hemorrhage from hypertension, consider venous sinus thrombosis, less likely in this location, aneurysmal bleed, head trauma (also unlikely). Had craniotomy 7/ evening Suspect of aspiration, respiratory failure, hypertension, chronic obstructive pulmonary disease, improving acute kidney injury cont Zosyn glucose uncontrolled add Lantus 14 UNITS SQ HS 35 MIN CC TIME 02/15/2021 POD #6 Right occipital craniotomy with evacuation of intracerebral hematoma sedated on vent Patient seen and examined at bedside Good response to IV Lasix Continue antibiotics per infectious disease Weaning ventilator and sedation as tolerated Hopeful extubation in the next few days Plan of care discussed with bedside nurse Expected interval evolution of a right posterior temporal/occipital intraparenchymal hematoma status post decompressive craniotomy Large right temporo-occipital intraparenchymal bleed, most likely lobar hemorrhage from hypertension, consider venous sinus thrombosis, less likely in this location, aneurysmal bleed, head trauma (also unlikely). Had craniotomy 02/09 evening Suspect of aspiration, respiratory failure, hypertension, chronic obstructive pulmonary disease, improving acute kidney injury cont Zosyn glucose uncontrolled add Lantus 35 MIN CC TIME 02/14/2021 POD #5 Right occipital craniotomy with evacuation of intracerebral hematoma sedated on vent Patient seen and examined at bedside Good response to IV Lasix Continue antibiotics per infectious disease Weaning ventilator and sedation as tolerated Hopeful extubation in the next few days Plan of care discussed with bedside nurse Expected interval evolution of a right posterior temporal/occipital intraparenchymal hematoma status post decompressive craniotomy Large right temporo-occipital intraparenchymal bleed, most likely lobar hemorrhage from hypertension, consider venous sinus thrombosis, less likely in this location, aneurysmal bleed, head trauma (also unlikely). Had craniotomy 02/09 evening Suspect of aspiration, respiratory failure, hypertension, chronic obstructive pulmonary disease, improving acute kidney injury cont Zosyn glucose uncontrolled add Lantus 35 MIN CC TIME 02/13/2021 POD #4 Right occipital craniotomy with evacuation of intracerebral hematoma sedated on vent Patient seen and examined at bedside Good response to IV Lasix Continue antibiotics per infectious disease Weaning ventilator and sedation as tolerated Hopeful extubation in the next few days Plan of care discussed with bedside nurse Expected interval evolution of a right posterior temporal/occipital intraparenchymal hematoma status post decompressive craniotomy Large right temporo-occipital intraparenchymal bleed, most likely lobar hemorrhage from hypertension, consider venous sinus thrombosis, less likely in this location, aneurysmal bleed, head trauma (also unlikely). Had craniotomy 02/09 evening Suspect of aspiration, respiratory failure, hypertension, chronic obstructive pulmonary disease, improving acute kidney injury cont Zosyn 35 MIN CC TIME 02/12/2021 Patient seen and examined at bedside Remains intubated and sedated Good response to IV Lasix yesterday had nearly 3 L out; will diurese again today Continue antibiotics per infectious disease Weaning ventilator and sedation as tolerated Hopeful extubation in the next few days Plan of care discussed with bedside nurse 02/11/2021 Patient seen and examined at bedside No major clinical changes overnight however this morning patient has largely increased amount of secretions Chest x-ray concerning for possible pneumonia, will consult ID who recommended starting Zosyn Otherwise he remains intubated and sedated We will follow subspecialist input Plan discussed with bedside RN 02/10/2021 Patient seen and examined at bedside Underwent craniotomy yesterday due to unresponsiveness in the late afternoon; was also intubated Continues to have a poor neurologic status Neurology and neurosurgery following Discussed plan of care with bedside nurse Patient is a 61-year-old male transferred for to the ICU overnight due to hypertensive emergency and intracranial hemorrhage. Patient's mother at bedside provides most the history. She reports that patient had been in his usual state of health until yesterday morning when he reported feeling tired and having a headache. Patient mother re ports he normally gets up early and goes outside however this was not the case yesterday. With this headache he took BC powder and went back to bed. Patient's mother reports that he was in and out of bed throughout most of the afternoon. Says patient did not eat anything yesterday which is very unusual for him. Approximately 1130 last night she had the patient get up to go to the bathroom and heard him fall. He however is able to get up and returned to bed; unknown if he hit his head at this time. Patient again woke up around 2 AM and woke up his mother asking for orange juice and then proceeded to fall again, she does not think he hit his head at this time. He was taken to hospital and found to have a systolic blood pressure greater than [address] scan found to have an intracranial hemorrhage. Due to severity of his condition he was transferred here. Patient's mother reports she is not aware of any past medical history other than hypertension which he intermittently takes hydrochlorothiazide for. Vitals Vitals Vital Signs Date Time Temp Pulse Resp B/P (MAP) Pulse Ox O2 Delivery O2 Flow Rate FiO2 03/10/21 10:00 65 18 144/91 (108) 96 Ventilator 03/10/21 08:00 98.7 98.7 Physical Exam Physical Exam GENERAL: Sedated on vent, patient is not following commands HEENT: no icterus,NGT + NECK trach present LUNGS: Decreased breath sound at bases HEART: S1, S2 bradycardia ABDOMEN: Soft, nontender, mildly distended EXTREMITIES: + edema, no cyanosis. SKIN:no gen rash NEUROLOGIC: unable to assess Right IJ taken out RT PICC Line clean General: Other (sedated, on vent) Heart: Regular rate Lungs: Clear Abdomen: Normal bowel sounds Extremities: No clubbing, No cyanosis, No edema Skin: Other (incision healed well) Labs LABS XAM: Chest, single view. HISTORY: Hypoxia. COMPARISON: 03/06/2021 FINDINGS: A frontal view of the chest is obtained. There is a tracheostomy devic e overlying the thoracic inlet. There is nasogastric tube within the stomach. There is a right PICC with the tip in the right atrium. There is right upper lobe bullous emphysema. There is stable bilateral lower lobe interstitial infiltrate and small pleural effusions. There is a stable cardiac silhouette. There is no pneumothorax. IMPRESSION: 1. Stable bilateral lower lobe infiltrate and small pleural effusions. 2. Right upper lobe bullous emphysema. 3. Stable support lines and tubes. Electronically signed by: Izzy Goodwin MD (03/08/2021 8:25 AM) [id number] DICTATED and SIGNED BY: IZZY GOODWIN MD DATE: 03/08/21 [id number] Laboratory Tests Test 03/09/21 14:55 03/09/21 18:15 03/10/21 00:14 03/10/21 06:00 Glucose (Fingerstick) 184 mg/dL (70-99) 165 mg/dL (70-99) 157 mg/dL (70-99) Sodium Level 135 mmol/L (136-145) Potassium Level 4.4 mmol/L (3.5-5.1) Chloride Level 99 mmol/L (98-107) Carbon Dioxide Level 29 mmol/L (21-32) Anion Gap 7 (6-14) Blood Urea Nitrogen 27 mg/dL (8-26) Creatinine 0.9 mg/dL (0.7-1.3) Estimated GFR (Cockcroft-Gault) 104.2 Glucose Level 165 mg/dL (70-99) Calcium Level 9.4 mg/dL (8.5-10.1) Phosphorus Level 5.2 mg/dL (2.6-4.7) Albumin 2.5 g/dL (3.4-5.0) Test 03/10/21 06:08 Glucose (Fingerstick) 169 mg/dL (70-99) Comment Review of Relevant I have reviewed the following items neela (where applicable) has been applied. Labs Laboratory Tests Test 03/08/21 11:10 03/08/21 18:34 03/08/21 22:09 03/09/21 00:22 Glucose (Fingerstick) 192 mg/dL (70-99) 221 mg/dL (70-99) 188 mg/dL (70-99) 184 mg/dL (70-99) Test 03/09/21 06:30 03/09/21 06:34 03/09/21 14:55 03/09/21 18:15 White Blood Count 6.1 x10^3/uL (4.0-11.0) Red Blood Count 3.36 x10^6/uL (4.30-5.70) Hemoglobin 10.4 g/dL (13.0-17.5) Hematocrit 30.3 % (39.0-53.0) Mean Corpuscular Volume 90 fL (79-100) Mean Corpuscular Hemoglobin 31 pg (25-35) Mean Corpuscular Hemoglobin Concent 35 g/dL (31-37) Red Cell Distribution Width 13.7 % (11.5-14.5) Platelet Count 172 x10^3/uL (140-400) Neutrophils (%) (Auto) 58 % (31-73) Lymphocytes (%) (Auto) 28 % (24-48) Monocytes (%) (Auto) 10 % (0-9) Eosinophils (%) (Auto) 3 % (0-3) Basophils (%) (Auto) 1 % (0-3) Neutrophils # (Auto) 3.5 x10^3/uL (1.8-7.7) Lymphocytes # (Auto) 1.7 x10^3/uL (1.0-4.8) Monocytes # (Auto) 0.6 x10^3/uL (0.0-1.1) Eosinophils # (Auto) 0.2 x10^3/uL (0.0-0.7) Basophils # (Auto) 0.1 x10^3/uL (0.0-0.2) Sodium Level 131 mmol/L (136-145) Potassium Level 4.6 mmol/L (3.5-5.1) Chloride Level 98 mmol/L (98-107) Carbon Dioxide Level 29 mmol/L (21-32) Anion Gap 4 (6-14) Blood Urea Nitrogen 21 mg/dL (8-26) Creatinine 0.8 mg/dL (0.7-1.3) Estimated GFR (Cockcroft-Gault) 119.3 Glucose Level 187 mg/dL (70-99) Calcium Level 8.5 mg/dL (8.5-10.1) Glucose (Fingerstick) 176 mg/dL (70-99) 184 mg/dL (70-99) 165 mg/dL (70-99) Test 03/10/21 00:14 03/10/21 06:00 03/10/21 06:08 Glucose (Fingerstick) 157 mg/dL (70-99) 169 mg/dL (70-99) Sodium Level 135 mmol/L (136-145) Potassium Level 4.4 mmol/L (3.5-5.1) Chloride Level 99 mmol/L (98-107) Carbon Dioxide Level 29 mmol/L (21-32) Anion Gap 7 (6-14) Blood Urea Nitrogen 27 mg/dL (8-26) Creatinine 0.9 mg/dL (0.7-1.3) Estimated GFR (Cockcroft-Gault) 104.2 Glucose Level 165 mg/dL (70-99) Calcium Level 9.4 mg/dL (8.5-10.1) Phosphorus Level 5.2 mg/dL (2.6-4.7) Albumin 2.5 g/dL (3.4-5.0) Laboratory Tests Test 03/09/21 14:55 03/09/21 18:15 03/10/21 00:14 03/10/21 06:00 Glucose (Fingerstick) 184 mg/dL (70-99) 165 mg/dL (70-99) 157 mg/dL (70-99) Sodium Level 135 mmol/L (136-145) Potassium Level 4.4 mmol/L (3.5-5.1) Chloride Level 99 mmol/L (98-107) Carbon Dioxide Level 29 mmol/L (21-32) Anion Gap 7 (6-14) Blood Urea Nitrogen 27 mg/dL (8-26) Creatinine 0.9 mg/dL (0.7-1.3) Estimated GFR (Cockcroft-Gault) 104.2 Glucose Level 165 mg/dL (70-99) Calcium Level 9.4 mg/dL (8.5-10.1) Phosphorus Level 5.2 mg/dL (2.6-4.7) Albumin 2.5 g/dL (3.4-5.0) Test 03/10/21 06:08 Glucose (Fingerstick) 169 mg/dL (70-99) Microbiology 02/23/21 Gram Stain - Final, Complete 02/23/21 Aerobic Culture - Final, Complete 02/22/21 Blood Culture - Final, Complete NO GROWTH AFTER 5 DAYS 02/22/21 Gram Stain Evaluation - Final, Complete 02/22/21 Respiratory Culture - Final, Complete Medications Current Medications Nicardipine HCl 50 mg/Sodium Chloride 250 ml @ 12.5 mls/hr CONT PRN IV SEE I/O RECORD Last administered on 02/26/21at 01:20; Start 02/09/21 at 06:15 Labetalol HCl (Normodyne Iv Push) 10 mg PRN Q2HR PRN IVP HYPERTENSION- 1ST CHOICE Last administered on 03/08/21at 09:05; Start 02/09/21 at 06:15 Lorazepam (Ativan Inj) 2 mg 1X ONCE IVP Last administered on 02/09/21at 10:54; Start 02/09/21 at 10:45; Stop 02/09/21 at 10:46; Status DC Lorazepam (Ativan Inj) 2 mg 1X ONCE IVP Last administered on 02/09/21at 11:00; Start 02/09/21 at 11:00; Stop 02/09/21 at 11:01; Status DC Fentanyl Citrate (Fentanyl 2ml Vial) 25 mcg PRN Q2HR PRN IVP MODERATE TO SEVERE PAIN Last administered on 02/09/21at 13:37; Start 02/09/21 at 13:30; Stop 02/18/21 at 22:53; Status DC Info (Review Meds) 1 ea PRN 1X PRN MC SEE COMMENTS; Start 02/09/21 at 15:00 Acetaminophen (Tylenol Supp) 650 mg PRN Q6HRS PRN [place] FEVER > 100.5'F or 38'C; Start 02/09/21 at 15:00; Stop 02/11/21 at 21:12; Status DC Albuterol Sulfate (Ventolin Neb Soln) 2.5 mg PRN Q4HRS PRN NEB SHORTNESS OF BREATH; Start 02/09/21 at 15:15 Iohexol (Omnipaque 350 Mg/ml) 75 ml 1X ONCE IV Last administered on 02/09/21at 15:52; Start 02/09/21 at 15:30; Stop 02/09/21 at 15:35; Status DC Iohexol (Omnipaque 350 Mg/ml) 100 ml STK-MED ONCE .ROUTE ; Start 02/09/21 at 15:26; Stop 02/09/21 at 15:27; Status DC Info (CONTRAST GIVEN -- Rx MONITORING) 1 each PRN DAILY PRN MC SEE COMMENTS; Start 02/09/21 at 15:45; Stop 02/11/21 at 15:44; Status DC Propofol 100 ml @ As Directed STK-MED ONCE IV ; Start 02/09/21 at 15:51; Stop 02/09/21 at 15:51; Status DC Rocuronium Mcdermitt (Zemuron) 50 mg STK-MED ONCE .ROUTE ; Start 02/09/21 at 15:51; Stop 02/09/21 at 15:51; Status DC Lidocaine HCl (Lidocaine HCl 2% Abboject) 100 mg STK-MED ONCE .ROUTE ; Start 02/09/21 at 15:52; Stop 02/09/21 at 15:53; Status DC Propofol 100 ml @ 3.507 mls/ hr CONT PRN IV PER PROTOCOL Last administered on 03/10/21 06:10; Start 02/09/21 at 16:15 Lidocaine HCl (Lidocaine HCl 2% Abboject) 100 mg 1X ONCE IV Last administered on 02/09/21 16:17; Start 02/09/21 at 16:15; Stop 02/09/21 at 16:17; Status DC Rocuronium Mcdermitt (Zemuron) 50 mg 1X ONCE IV Last administered on 02/09/21 16:17; Start 02/09/21 at 16:15; Stop 02/09/21 at 16:17; Status DC Rocuronium Mcdermitt (Zemuron) 100 mg STK-MED ONCE .ROUTE ; Start 02/09/21 at 16:31; Stop 02/09/21 at 16:32; Status DC Gelatin (Gelfoam Size 100) 1 each STK-MED ONCE .ROUTE Last administered on 02/09/21 17:49; Start 02/09/21 at 16:33; Stop 02/09/21 at 16:33; Status DC Bupivacaine HCl/ Epinephrine Bitart (Sensorcain-Epi 0.5%-1:[id number] Mpf) 30 ml STK-MED ONCE .ROUTE Last administered on 02/09/21 17:49; Start 02/09/21 at 16:33; Stop 02/09/21 at 16:33; Status DC Cellulose (Surgicel Hemostat 4x8) 1 each STK-MED ONCE .ROUTE Last administered on 02/09/21 18:38; Start 02/09/21 at 16:33; Stop 02/09/21 at 16:33; Status DC Thrombin 20,000 unit STK-MED ONCE TP Last administered on 02/09/21 17:49; Start 02/09/21 at 16:33; Stop 02/09/21 at 16:33; Status DC Fentanyl Citrate (Fentanyl 2ml Vial) 75 mcg 1X ONCE IVP Last administered on 02/09/21 16:45; Start 02/09/21 at 16:45; Stop 02/09/21 at 16:47; Status DC Propofol (Diprivan) 200 mg 1X ONCE IV ; Start 02/09/21 at 17:15; Stop 02/09/21 at 17:16; Status DC Lidocaine HCl (Lidocaine HCl 2% Abboject) 100 mg 1X ONCE IV ; Start 02/09/21 at 17:15; Stop 02/09/21 at 17:16; Status DC Rocuronium Mcdermitt (Zemuron) 50 mg 1X ONCE IV ; Start 02/09/21 at 17:15; Stop 02/09/21 at 17:16; Status DC Propofol 100 ml @ 0 mls/hr CONT PRN PRN IV SEDATION; Start 02/09/21 at 17:15; Stop 02/10/21 at 05:14; Status DC Cefazolin Sodium (Ancef) 1 gm STK-MED ONCE IVP ; Start 02/09/21 at 17:28; Stop 02/09/21 at 17:28; Status DC Fentanyl Citrate (Fentanyl 2ml Vial) 100 mcg STK-MED ONCE .ROUTE ; Start 02/09/21 at 17:43; Stop 02/09/21 at 17:43; Status DC Rocuronium Mcdermitt (Zemuron) 100 mg STK-MED ONCE .ROUTE ; Start 02/09/21 at 17:58; Stop 02/09/21 at 17:59; Status DC Vecuronium Mcdermitt (Norcuron Bolus) 10 mg STK-MED ONCE IV ; Start 02/09/21 at 18:49; Stop 02/09/21 at 18:50; Status DC Sodium Chloride (SODIUM CHLORIDE 20ml) 20 ml STK-MED ONCE IJ ; Start 02/09/21 at 18:50; Stop 02/09/21 at 18:50; Status DC Sevoflurane (Ultane) 90 ml STK-MED ONCE IH ; Start 02/09/21 at 19:20; Stop 02/09/21 at 19:21; Status DC Fentanyl Citrate 30 ml @ 2.5 mls/hr CONT PRN IV SEE PROTOCOL Last administered on 02/09/21at 23:40; Start 02/09/21 at 23:15; Stop 02/10/21 at 04:43; Status DC Fentanyl Citrate 55 ml @ 0 mls/hr CONT PRN IV SEE I/O Last administered on 03/09/21at 10:58; Start 02/10/21 at 05:00 Potassium Chloride/Dextrose/ Sod Cl 1,000 ml @ 80 mls/hr [id number] IV ; Start 02/10/21 at 09:00; Stop 02/10/21 at 13:21; Status DC Pantoprazole Sodium (PROTONIX VIAL for IV PUSH) 40 mg DAILYAC IVP Last administered on 03/10/21at 08:43; Start 02/10/21 at 09:00 Lidocaine HCl (Buffered Lidocaine 1%) 3 ml STK-MED ONCE .ROUTE ; Start 02/10/21 at 13:18; Stop 02/10/21 at 13:18; Status DC Sodium Chloride 1,000 ml @ 80 mls/hr [id number] IV Last administered on 02/12/21at 03:00; Start 02/10/21 at 13:30; Stop 02/12/21 at 15:36; Status DC Lidocaine HCl (Buffered Lidocaine 1%) 6 ml 1X ONCE INJ Last administered on 02/10/21at 13:57; Start 02/10/21 at 13:45; Stop 02/10/21 at 13:46; Status DC Potassium Chloride/Water 100 ml @ 100 mls/hr Q1H IV Last administered on 02/11/21at 10:07; Start 02/11/21 at 08:00; Stop 02/11/21 at 09:59; Status DC Piperacillin Sod/ Tazobactam Sod 3.375 gm/Sodium Chloride 50 ml @ 100 mls/hr Q6HRS IV Last administered on 03/07/21at 05:35; Start 02/11/21 at 09:00; Stop 03/07/21 at 09:45; Status DC Info (Tpn Per Pharmacy) 1 each PRN DAILY PRN MC SEE COMMENTS Last administered on 03/09/21at 14:08; Start 02/11/21 at 11:15 Sodium Chloride 90 meq/Potassium Chloride 50 meq/ Potassium Phosphate 13.6 mmol/Magnesium Sulfate 10 meq/ Calcium Gluconate 10 meq/ Multivitamins 5 ml/Zinc/Copper/ Manganese/ Selenium 1 ml/ Total Parenteral Nutrition/Amino Acids/Dextrose 1,512 ml @ 63 mls/hr TPN CONT IV Last administered on 02/11/21at 22:32; Start 02/11/21 at 22:00; Stop 02/12/21 at 21:59; Status DC Furosemide (Lasix) 20 mg 1X ONCE IVP Last administered on 02/11/21at 15:11; Start 02/11/21 at 15:30; Stop 02/11/21 at 15:31; Status DC Furosemide (Lasix) 20 mg 1X ONCE IVP Last administered on 02/11/21at 17:00; Start 02/11/21 at 17:00; Stop 02/11/21 at 17:01; Status DC Midazolam HCl 100 ml @ 1 mls/hr CONT PRN IV SEE PROTOCOL Last administered on 02/13/21at 20:58; Start 02/11/21 at 19:30 Acetaminophen (Tylenol Supp) 650 mg PRN Q6HRS PRN [place] MILD PAIN / TEMP > 100.3'F; Start 02/11/21 at 21:15 Sodium Chloride 80 meq/Potassium Chloride 50 meq/ Potassium Phosphate 13.6 mmol/Magnesium Sulfate 6 meq/ Calcium Gluconate 10 meq/ Multivitamins 5 ml/Zinc/Copper/ Manganese/ Selenium 1 ml/ Total Parenteral Nutrition/Amino Acids/Dextrose 1,512 ml @ 63 mls/hr TPN CONT IV Last administered on 02/12/21at 22:09; Start 02/12/21 at 22:00; Stop 02/13/21 at 21:59; Status DC Furosemide (Lasix) 40 mg 1X ONCE IVP Last administered on 02/12/21at 12:44; Start 02/12/21 at 12:30; Stop 02/12/21 at 12:31; Status DC Insulin Human Lispro (HumaLOG) 0-5 UNITS Q6HRS SQ Last administered on 03/10/21at 06:11; Start 02/12/21 at 12:00 Dextrose (Dextrose 50%-Water Syringe) 12.5 gm PRN Q15MIN PRN IV SEE COMMENTS; Start 02/12/21 at 12:15 Clonidine HCl (Catapres Tts-3) 1 patch WEEKLY TD Last administered on 03/06/21at 09:07; Start 02/13/21 at 11:00 Sodium Chloride 80 meq/Potassium Chloride 50 meq/ Potassium Phosphate 13.6 mmol/Magnesium Sulfate 6 meq/ Calcium Gluconate 10 meq/ Multivitamins 5 ml/Zinc/Copper/ Manganese/ Selenium 1 ml/ Total Parenteral Nutrition/Amino Acids/Dextrose 1,512 ml @ 63 mls/hr TPN CONT IV Last administered on 02/13/21at 21:42; Start 02/13/21 at 22:00; Stop 02/14/21 at 21:59; Status DC Potassium Acetate 50 meq/Potassium Phosphate 13.6 mmol/Magnesium Sulfate 6 meq/ Calcium Gluconate 10 meq/ Multivitamins 5 ml/Zinc/Copper/ Manganese/ Selenium 1 ml/ Total Parenteral Nutrition/Amino Acids/Dextrose 1,512 ml @ 63 mls/hr TPN CONT IV Last administered on 02/14/21at 21:59; Start 02/14/21 at 22:00; Stop 02/15/21 at 21:59; Status DC Insulin Glargine (Lantus Syringe) 10 unit QHS SQ Last administered on 02/15/21at 22:11; Start 02/14/21 at 21:00; Stop 02/16/21 at 12:42; Status DC Hydralazine HCl (Apresoline Inj) 10 mg PRN Q4HRS PRN IVP ELEVATED BP, SEE COMMENTS Last administered on 03/08/21at 11:14; Start 02/14/21 at 16:00 Potassium Acetate 50 meq/Potassium Phosphate 13.6 mmol/Magnesium Sulfate 6 meq/ Calcium Gluconate 10 meq/ Multivitamins 5 ml/Zinc/Copper/ Manganese/ Selenium 1 ml/ Total Parenteral Nutrition/Amino Acids/Dextrose 1,512 ml @ 63 mls/hr TPN CONT IV Last administered on 02/15/21at 22:13; Start 02/15/21 at 22:00; Stop 02/16/21 at 21:59; Status DC Dexmedetomidine HCl 400 mcg/ Sodium Chloride 100 ml @ 0 mls/hr CONT PRN IV PER PROTOCOL Last administered on 03/10/21at 06:10; Start 02/15/21 at 14:15 Sodium Chloride 500 ml @ 500 mls/hr 1X PRN PRN IV SEE COMMENTS; Start 02/15/21 at 14:15 Atropine Sulfate (ATROPINE 0.5mg SYRINGE) 0.5 mg PRN Q5MIN PRN IV SEE COMMENTS; Start 02/15/21 at 14:15 Potassium Acetate 50 meq/Potassium Phosphate 13.6 mmol/Magnesium Sulfate 6 meq/ Calcium Gluconate 10 meq/ Multivitamins 5 ml/Zinc/Copper/ Manganese/ Selenium 1 ml/ Total Parenteral Nutrition/Amino Acids/Dextrose 1,512 ml @ 63 mls/hr TPN CONT IV Last administered on 02/16/21at 22:59; Start 02/16/21 at 22:00; Stop 02/17/21 at 21:59; Status DC Insulin Glargine (Lantus Syringe) 14 unit QHS SQ Last administered on 02/16/21at 21:14; Start 02/16/21 at 21:00; Stop 02/17/21 at 14:15; Status DC Potassium Acetate 50 meq/Potassium Phosphate 13.6 mmol/Magnesium Sulfate 6 meq/ Calcium Gluconate 10 meq/ Multivitamins 5 ml/Zinc/Copper/ Manganese/ Selenium 1 ml/ Total Parenteral Nutrition/Amino Acids/Dextrose 1,512 ml @ 63 mls/hr TPN CONT IV Last administered on 02/17/21at 20:48; Start 02/17/21 at 22:00; Stop 02/18/21 at 21:59; Status DC Dextrose 1,000 ml @ 75 mls/hr [id number] IV Last administered on 02/18/21at 13:51; Start 02/17/21 at 10:30; Stop 02/19/21 at 12:57; Status DC Insulin Glargine (Lantus Syringe) 18 unit QHS SQ Last administered on 02/17/21at 20:46; Start 02/17/21 at 21:00; Stop 02/18/21 at 11:56; Status DC Insulin Glargine (Lantus Syringe) 22 unit QHS SQ Last administered on 02/18/21at 21:00; Start 02/18/21 at 21:00; Stop 02/19/21 at 14:08; Status DC Potassium Acetate 50 meq/Potassium Phosphate 13.6 mmol/Magnesium Sulfate 6 meq/ Calcium Gluconate 10 meq/ Multivitamins 5 ml/Zinc/Copper/ Manganese/ Selenium 1 ml/ Total Parenteral Nutrition/Amino Acids/Dextrose 1,512 ml @ 63 mls/hr TPN CONT IV Last administered on 02/18/21at 21:43; Start 02/18/21 at 22:00; Stop 02/19/21 at 21:59; Status DC Potassium Acetate 50 meq/Potassium Phosphate 13.6 mmol/Magnesium Sulfate 6 meq/ Calcium Gluconate 10 meq/ Multivitamins 5 ml/Zinc/Copper/ Manganese/ Selenium 1 ml/ Total Parenteral Nutrition/Amino Acids/Dextrose 2,040 ml @ 85 mls/hr TPN CONT IV Last administered on 02/19/21at 20:56; Start 02/19/21 at 22:00; Stop 02/20/21 at 21:59; Status DC Insulin Glargine (Lantus Syringe) 25 unit QHS SQ Last administered on 02/20/21at 22:11; Start 02/19/21 at 21:00; Stop 02/21/21 at 10:10; Status DC Acetaminophen (Tylenol) 650 mg PRN Q6HRS PRN [place] MILD PAIN / TEMP > 100.3'F Last administered on 03/08/21at 09:40; Start 02/19/21 at 18:00 Potassium Acetate 50 meq/Potassium Phosphate 13.6 mmol/Magnesium Sulfate 6 meq/ Calcium Gluconate 10 meq/ Multivitamins 5 ml/Zinc/Copper/ Manganese/ Selenium 1 ml/ Total Parenteral Nutrition/Amino Acids/Dextrose 2,040 ml @ 85 mls/hr TPN CONT IV Last administered on 02/20/21at 22:10; Start 02/20/21 at 22:00; Stop 02/21/21 at 21:59; Status DC Insulin Glargine (Lantus Syringe) 27 unit QHS SQ Last administered on 03/01/21at 21:18; Start 02/21/21 at 21:00; Stop 03/02/21 at 13:32; Status DC Magnesium Sulfate 50 ml @ 25 mls/hr 1X ONCE IV Last administered on 02/21/21at 11:30; Start 02/21/21 at 11:00; Stop 02/21/21 at 12:59; Status DC Potassium Acetate 50 meq/Potassium Phosphate 13.6 mmol/Magnesium Sulfate 8 meq/ Calcium Gluconate 10 meq/ Multivitamins 5 ml/Zinc/Copper/ Manganese/ Selenium 1 ml/ Total Parenteral Nutrition/Amino Acids/Dextrose 2,040 ml @ 85 mls/hr TPN CONT IV Last administered on 02/21/21at 21:23; Start 02/21/21 at 22:00; Stop 02/22/21 at 21:59; Status DC Daptomycin 570 mg/ Sodium Chloride 50 ml @ 100 mls/hr Q24H IV Last administered on 02/24/21at 13:10; Start 02/22/21 at 12:00; Stop 02/25/21 at 10:34; Status DC Linezolid/Dextrose 300 ml @ 300 mls/hr Q12HR IV Last administered on 03/02/21at 08:26; Start 02/22/21 at 09:00; Stop 03/02/21 at 08:42; Status DC Potassium Acetate 50 meq/Potassium Phosphate 13.6 mmol/Magnesium Sulfate 8 meq/ Calcium Gluconate 5 meq/ Multivitamins 5 ml/Zinc/Copper/ Manganese/ Selenium 1 ml/ Total Parenteral Nutrition/Amino Acids/Dextrose 2,040 ml @ 85 mls/hr TPN CONT IV Last administered on 02/22/21at 21:32; Start 02/22/21 at 22:00; Stop 02/23/21 at 21:59; Status DC Fentanyl Citrate (Fentanyl 2ml Vial) 25 mcg PRN Q5MIN PRN IVP MILD PAIN 1-3; Start 02/23/21 at 06:00; Stop 02/24/21 at 05:59; Status DC Fentanyl Citrate (Fentanyl 2ml Vial) 50 mcg PRN Q5MIN PRN IVP MODERATE PAIN 4- 6; Start 02/23/21 at 06:00; Stop 02/24/21 at 05:59; Status DC Morphine Sulfate (Morphine Sulfate) 1 mg PRN Q10MIN PRN IVP SEVERE PAIN 7-10; Start 02/23/21 at 06:00; Stop 02/24/21 at 05:59; Status DC Ringer's Solution 1,000 ml @ 30 mls/hr Q24H IV Last administered on 02/23/21at 11:00; Start 02/23/21 at 06:00; Stop 02/23/21 at 17:59; Status DC Hydromorphone HCl (Dilaudid) 0.5 mg PRN Q10MIN PRN IVP SEVERE PAIN 7-10, 2nd CHOICE; Start 02/23/21 at 06:00; Stop 02/24/21 at 05:59; Status DC Prochlorperazine Edisylate (Compazine) 5 mg PACU PRN PRN IVP NAUSEA, MRX1; Start 02/23/21 at 06:00; Stop 02/24/21 at 05:59; Status DC Cellulose (Surgicel Fibrillar 1x2) 1 each STK-MED ONCE .ROUTE ; Start 02/23/21 at 08:23; Stop 02/23/21 at 08:23; Status DC Lidocaine/ Epinephrine (LIDOCAINE 1%-EPI 1:100,000 Multi-Dose) 20 ml STK-MED ONCE .ROUTE Last administered on 02/23/21at 13:33; Start 02/23/21 at 08:23; Stop 02/23/21 at 08:23; Status DC Potassium Acetate 50 meq/Potassium Phosphate 13.6 mmol/Magnesium Sulfate 8 meq/ Calcium Gluconate 5 meq/ Multivitamins 5 ml/Zinc/Copper/ Manganese/ Selenium 1 ml/ Total Parenteral Nutrition/Amino Acids/Dextrose 2,040 ml @ 85 mls/hr TPN CONT IV ; Start 02/23/21 at 22:00; Stop 02/24/21 at 21:59; Status DC Rocuronium Mcdermitt (Zemuron) 50 mg STK-MED ONCE .ROUTE ; Start 02/23/21 at 12:13; Stop 02/23/21 at 12:13; Status DC Fentanyl Citrate (Fentanyl 2ml Vial) 100 mcg STK-MED ONCE .ROUTE ; Start 02/23/21 at 12:24; Stop 02/23/21 at 12:24; Status DC Insulin Human Lispro (HumaLOG VIAL for OP,RR ONLY) 0-10 units PRN Q1HR PRN SQ PER PROTOCOL Last administered on 02/23/21at 13:00; Start 02/23/21 at 13:15; Stop 02/24/21 at 13:14; Status DC Rocuronium Mcdermitt (Zemuron) 100 mg STK-MED ONCE .ROUTE ; Start 02/23/21 at 13:22; Stop 02/23/21 at 13:23; Status DC Albuterol Sulfate (Ventolin Hfa) 60 puff STK-MED ONCE INH ; Start 02/23/21 at 13:47; Stop 02/23/21 at 13:48; Status DC Sevoflurane (Ultane) 60 ml STK-MED ONCE IH ; Start 02/23/21 at 14:21; Stop 02/23/21 at 14:21; Status DC Potassium Acetate 50 meq/Potassium Phosphate 13.6 mmol/Magnesium Sulfate 8 meq/ Calcium Gluconate 5 meq/ Multivitamins 5 ml/Zinc/Copper/ Manganese/ Selenium 1 ml/ Total Parenteral Nutrition/Amino Acids/Dextrose 2,040 ml @ 85 mls/hr TPN CONT IV ; Start 02/25/21 at 22:00; Stop 02/26/21 at 21:59; Status DC Potassium Acetate 50 meq/Potassium Phosphate 13.6 mmol/Magnesium Sulfate 8 meq/ Calcium Gluconate 5 meq/ Multivitamins 5 ml/Zinc/Copper/ Manganese/ Selenium 1 ml/ Total Parenteral Nutrition/Amino Acids/Dextrose 2,040 ml @ 85 mls/hr TPN CONT IV Last administered on 02/26/21at 21:27; Start 02/26/21 at 22:00; Stop 02/27/21 at 21:59; Status DC Potassium Acetate 50 meq/Potassium Phosphate 13.6 mmol/Magnesium Sulfate 8 meq/ Calcium Gluconate 5 meq/ Multivitamins 5 ml/Zinc/Copper/ Manganese/ Selenium 1 ml/ Total Parenteral Nutrition/Amino Acids/Dextrose 2,040 ml @ 85 mls/hr TPN CONT IV Last administered on 02/27/21at 21:01; Start 02/27/21 at 22:00; Stop 02/28/21 at 21:59; Status DC Potassium Acetate 50 meq/Potassium Phosphate 13.6 mmol/Magnesium Sulfate 8 meq/ Calcium Gluconate 5 meq/ Multivitamins 5 ml/Zinc/Copper/ Manganese/ Selenium 1 ml/ Total Parenteral Nutrition/Amino Acids/Dextrose 2,040 ml @ 85 mls/hr TPN CONT IV Last administered on 02/28/21at 21:44; Start 02/28/21 at 22:00; Stop 03/01/21 at 21:59; Status DC Potassium Acetate 50 meq/Potassium Phosphate 13.6 mmol/Magnesium Sulfate 8 meq/ Calcium Gluconate 5 meq/ Multivitamins 5 ml/Zinc/Copper/ Manganese/ Selenium 1 ml/ Total Parenteral Nutrition/Amino Acids/Dextrose 2,040 ml @ 85 mls/hr TPN CONT IV Last administered on 03/01/21at 21:22; Start 03/01/21 at 22:00; Stop 03/02/21 at 21:59; Status DC Potassium Acetate 50 meq/Potassium Phosphate 13.6 mmol/Magnesium Sulfate 8 meq/ Multivitamins 5 ml/Zinc/Copper/ Manganese/ Selenium 1 ml/ Total Parenteral Nutrition/Amino Acids/Dextrose 2,040 ml @ 85 mls/hr TPN CONT IV Last administered on 03/02/21at 21:11; Start 03/02/21 at 22:00; Stop 03/03/21 at 21:59; Status DC Insulin Glargine (Lantus Syringe) 35 unit QHS SQ Last administered on 03/09/21at 21:09; Start 03/02/21 at 21:00 Potassium Acetate 50 meq/Potassium Phosphate 13.6 mmol/Magnesium Sulfate 8 meq/ Multivitamins 5 ml/Zinc/Copper/ Manganese/ Selenium 1 ml/ Total Parenteral Nutrition/Amino Acids/Dextrose 1,800 ml @ 75 mls/hr TPN CONT IV Last administered on 03/03/21at 21:54; Start 03/03/21 at 22:00; Stop 03/04/21 at 21:59; Status DC Docusate Sodium (Colace Solution) 100 mg DAILY PO Last administered on 03/10/21at 08:43; Start 03/03/21 at 10:00 Polyethylene Glycol (miraLAX PACKET) 17 gm DAILY PO Last administered on 03/10/21at 08:43; Start 03/03/21 at 10:00 Potassium Acetate 40 meq/Potassium Phosphate 13.6 mmol/Magnesium Sulfate 10 meq/ Multivitamins 5 ml/Zinc/Copper/ Manganese/ Selenium 1 ml/ Total Parenteral Nutrition/Amino Acids/Dextrose 1,800 ml @ 75 mls/hr TPN CONT IV Last administered on 03/04/21at 22:16; Start 03/04/21 at 22:00; Stop 03/05/21 at 21:59; Status DC Linezolid/Dextrose 300 ml @ 300 mls/hr Q12HR IV Last administered on 03/07/21at 08:53; Start 03/05/21 at 09:00; Stop 03/07/21 at 09:45; Status DC Magnesium Sulfate 50 ml @ 25 mls/hr 1X ONCE IV Last administered on 03/05/21at 13:31; Start 03/05/21 at 14:00; Stop 03/05/21 at 15:59; Status DC Sodium Chloride 40 meq/Potassium Acetate 40 meq/ Potassium Phosphate 13.6 mmol/Magnesium Sulfate 10 meq/ Multivitamins 5 ml/Zinc/Copper/ Manganese/ Selenium 1 ml/ Total Parenteral Nutrition/Amino Acids/Dextrose 1,800 ml @ 75 mls/hr TPN CONT IV Last administered on 03/05/21at 21:20; Start 03/05/21 at 22:00; Stop 03/06/21 at 21:59; Status DC Sodium Chloride 40 meq/Potassium Acetate 40 meq/ Potassium Phosphate 13.6 mmol/Magnesium Sulfate 10 meq/ Multivitamins 5 ml/Zinc/Copper/ Manganese/ Selenium 1 ml/ Total Parenteral Nutrition/Amino Acids/Dextrose 1,800 ml @ 75 mls/hr TPN CONT IV Last administered on 03/06/21at 21:35; Start 03/06/21 at 22:00; Stop 03/07/21 at 21:59; Status DC Vecuronium Mcdermitt (Norcuron Bolus) 10 mg STK-MED ONCE IV ; Start 03/07/21 at 11:15; Stop 03/07/21 at 11:16; Status DC Vecuronium Mcdermitt (Norcuron Bolus) 10 mg 1X ONCE IV Last administered on 03/07/21at 11:59; Start 03/07/21 at 11:30; Stop 03/07/21 at 12:00; Status DC Sodium Chloride 40 meq/Potassium Acetate 40 meq/ Potassium Phosphate 13.6 mmol/Magnesium Sulfate 10 meq/ Multivitamins 5 ml/Zinc/Copper/ Manganese/ Selenium 1 ml/ Total Parenteral Nutrition/Amino Acids/Dextrose 1,800 ml @ 75 mls/hr TPN CONT IV Last administered on 03/07/21at 21:41; Start 03/07/21 at 22:00; Stop 03/08/21 at 21:59; Status DC Sodium Chloride 40 meq/Potassium Acetate 40 meq/ Potassium Phosphate 13.6 mmol/Magnesium Sulfate 10 meq/ Multivitamins 5 ml/Zinc/Copper/ Manganese/ Selenium 1 ml/ Total Parenteral Nutrition/Amino Acids/Dextrose 1,560 ml @ 65 mls/hr TPN CONT IV Last administered on 03/08/21at 22:01; Start 03/08/21 at 22:00; Stop 03/09/21 at 21:59; Status DC Sodium Chloride 40 meq/Potassium Acetate 40 meq/ Potassium Phosphate 13.6 mmol/Magnesium Sulfate 10 meq/ Multivitamins 5 ml/Zinc/Copper/ Manganese/ Selenium 1 ml/ Total Parenteral Nutrition/Amino Acids/Dextrose 1,560 ml @ 65 mls/hr TPN CONT IV Last administered on 03/09/21at 22:33; Start 03/09/21 at 22:00; Stop 03/10/21 at 21:59 Vitals/I & O Vital Sign - Last 24 Hours 03/09/21 03/09/21 03/09/21 03/09/21 10:58 11:00 11:28 11:43 Pulse 68 Resp 16 B/P (MAP) 131/79 (96) Pulse Ox 100 100 100 100 O2 Delivery Ventilator Ventilator 03/09/21 03/09/21 03/09/21 03/09/21 12:00 12:00 13:00 13:20 Temp 97.8 97.8 Pulse 68 70 Resp 16 16 B/P (MAP) 117/84 (95) 179/90 (119) Pulse Ox 100 100 100 O2 Delivery Mechanical Ventilator Ventilator Ventilator Ventilator 03/09/21 03/09/21 03/09/21 03/09/21 14:00 15:00 16:00 16:00 Temp 98.0 98.0 Pulse 72 74 68 Resp 16 16 16 B/P (MAP) 123/70 (87) 115/62 (79) 116/63 (80) Pulse Ox 100 100 100 O2 Delivery Ventilator Ventilator Mechanical Ventilator Ventilator 03/09/21 03/09/21 03/09/21 03/09/21 16:04 17:00 18:00 18:24 Pulse 68 66 Resp 16 16 B/P (MAP) 108/57 (74) 104/58 (73) Pulse Ox 100 100 O2 Delivery Ventilator Ventilator Ventilator Ventilator 03/09/21 03/09/21 03/09/21 03/09/21 19:00 20:00 20:00 20:00 Temp 99.5 99.5 Pulse 66 68 Resp 20 20 B/P (MAP) 108/62 (77) 116/70 (85) Pulse Ox 98 98 99 O2 Delivery Ventilator Ventilator Ventilator Mechanical Ventilator 03/09/21 03/09/21 03/09/21 03/09/21 21:00 22:00 22:25 23:00 Pulse 70 64 72 Resp 16 16 18 B/P (MAP) 117/78 (91) 128/77 (94) 120/79 (93) Pulse Ox 99 98 99 98 O2 Delivery Ventilator Ventilator Ventilator Ventilator 03/09/21 03/09/21 03/10/21 03/10/21 23:59 23:59 01:00 01:00 Temp 99.4 99.4 Pulse 80 73 Resp 16 16 B/P (MAP) 138/82 (100) 118/78 (91) Pulse Ox 98 99 99 O2 Delivery Mechanical Ventilator Ventilator Ventilator Ventilator 03/10/21 03/10/21 03/10/21 03/10/21 02:00 03:00 03:00 04:00 Pulse 73 74 Resp 18 16 B/P (MAP) 138/85 (102) 107/69 (82) Pulse Ox 99 100 99 O2 Delivery Ventilator Ventilator Ventilator Mechanical Ventilator 03/10/21 03/10/21 03/10/21 03/10/21 04:00 05:00 05:00 06:00 Temp 99.6 99.6 Pulse 82 74 70 Resp 16 16 16 B/P (MAP) 120/80 (93) 108/74 (85) 110/63 (79) Pulse Ox 99 98 97 98 O2 Delivery Ventilator Ventilator Ventilator Ventilator 03/10/21 03/10/21 03/10/21 03/10/21 07:00 07:29 08:00 08:00 Temp 98.7 98.7 Pulse 73 65 Resp 16 17 B/P (MAP) 108/73 (85) 163/95 (117) Pulse Ox 97 97 99 O2 Delivery Ventilator Ventilator Mechanical Ventilator Ventilator 03/10/21 03/10/21 03/10/21 09:00 09:52 10:00 Pulse 71 65 Resp 18 18 B/P (MAP) 119/81 (94) 144/91 (108) Pulse Ox 95 95 96 O2 Delivery Ventilator Ventilator Ventilator Intake and Output 03/09/21 03/09/21 03/10/21 15:00 23:00 07:00 Intake Total 125 ml 1149 ml 1103 ml Output Total 1125 ml 1030 ml 740 ml Balance -1000 ml 119 ml 363 ml Justicifation of Admission Dx: Justifications for Admission: Justification of Admission Dx: Yes Acute Hemorrhagic Stroke: Acute Hemorrhagic Stroke LESLI ALCOCER MD Mar 10, 2021 10:07
[2021-03-10] MEDS: fentaNYL HIGH DOSE PCA 55 ML IV PRN (11:03)
[2021-03-10] MEDS: TPN PER PHARMACY MC PRN (14:14)
--- NOTE | 2021-03-10 14:15 | NUR ---
Pharmacy TPN Dosing Note S: COOPER CHAVEZ is a 61 year old M Currently receiving Central Continuous TPN started 02/11/21 B:Pertinent PMH: ILEUS, UNABLE TO START TUBE FEEDS Height: 6 feet, 2 inches Weight: 113.3 kg Current diet: NPO LABS: Sodium: 135 Potassium: 4.4 Chloride: 99 Calcium: 9.4 Corrected Calcium: 10.60 Magnesium: 1.8 CO2: 29 SCr: 0.9 Glucose: 157-170 Albumin: 2.5 AST: 35 ALT: 67 TPN FORMULA: TPN TYPE: Central Continuous AMINO ACIDS: 78 gm DEXTROSE: 160 gm SODIUM CHLORIDE: 40 mEq POTASSIUM ACETATE: 40 mEq MAGNESIUM: 10 mEq MULTIPLE VITAMIN: 5 ml TRACE ELEMENTS: 1 ml ml(s) TPN PLAN: Na improved, Phos elevated- remove from TPN. Propofol still infusing. BMP, Mag and Phos in AM. R: Change TPN as noted above. Will monitor electrolytes, glucose, and tolerance to TPN. MIKALA RIGGS RP, 03/10/21 [id number]
--- NOTE | 2021-03-10 15:55 | NUR ---
SS following up with discharge planning. SS reviewed pt chart and discussed with pt RN. Pt is currently on the vent at 40%. COVID19 negative. Pt on TPN. Pt on Fentanyl, Propofol, and Precedex. Trach in place. Self pay. Medicaid pending. Med Assist following. Pt's family wanting LTACH placement. Pt's family provided additional paperwork for [facility] today. Med Assist notified. Pt needing active insurance prior to LTACH accepting. Not stable. SS will continue to follow for discharge planning.
[2021-03-10] MEDS: INSULIN GLARGINE SYRINGE. SQ SCH (21:30)
[2021-03-10] MEDS ORDERED: [UNRECOGNIZED DRUG - OTHER] IV SCH (22:00)
[2021-03-10] MEDS ORDERED: AMINO ACID IV SCH (22:00)
[2021-03-10] MEDS ORDERED: DEXTROSE 70% IV SCH (22:00)
[2021-03-10] MEDS ORDERED: TOTAL PARENTERAL NUTRITION IV SCH (22:00)
[2021-03-11] VITALS (24 sets, daily range): BP systolic 81–153; BP diastolic 57–86
[2021-03-11] MEDS: INSULIN LISPRO 300 UNITS/3 ML VIAL. SQ SCH ×4 (01:13→17:32)
[2021-03-11] MEDS: PROPOFOL 100 ML IV PRN ×4 (04:41→22:10)
[2021-03-11] MEDS: DEXMEDETOMIDINE 400 MCG in IV NORMAL SALINE 100ML 96 ML IV PRN ×4 (04:42→21:45)
--- NOTE | 2021-03-11 05:49 | PDOC ---
PULMONARY PROGRESS NOTES DATE: 03/11/21 TIME: 05:47 Subjective Patient remains on vent support 40% and PEEP of 5 Patient is sedated on propofol/Precedex and fentanyl No overnight concerns from nursing Vitals Vital Signs Date Time Temp Pulse Resp B/P (MAP) Pulse Ox O2 Delivery O2 Flow Rate FiO2 03/11/21 05:02 54 16 113/71 (85) 99 Ventilator 03/11/21 04:00 98.1 98.1 Comments ros unable to obtain intubated on vent Lungs: Clear Cardiovascular: S1, S2 Abdomen: Soft, Non-tender Extremities: No Edema Skin: Warm Labs Laboratory Tests Test 03/09/21 06:30 03/09/21 06:34 03/09/21 14:55 03/09/21 18:15 White Blood Count 6.1 x10^3/uL (4.0-11.0) Red Blood Count 3.36 x10^6/uL (4.30-5.70) Hemoglobin 10.4 g/dL (13.0-17.5) Hematocrit 30.3 % (39.0-53.0) Mean Corpuscular Volume 90 fL (79-100) Mean Corpuscular Hemoglobin 31 pg (25-35) Mean Corpuscular Hemoglobin Concent 35 g/dL (31-37) Red Cell Distribution Width 13.7 % (11.5-14.5) Platelet Count 172 x10^3/uL (140-400) Neutrophils (%) (Auto) 58 % (31-73) Lymphocytes (%) (Auto) 28 % (24-48) Monocytes (%) (Auto) 10 % (0-9) Eosinophils (%) (Auto) 3 % (0-3) Basophils (%) (Auto) 1 % (0-3) Neutrophils # (Auto) 3.5 x10^3/uL (1.8-7.7) Lymphocytes # (Auto) 1.7 x10^3/uL (1.0-4.8) Monocytes # (Auto) 0.6 x10^3/uL (0.0-1.1) Eosinophils # (Auto) 0.2 x10^3/uL (0.0-0.7) Basophils # (Auto) 0.1 x10^3/uL (0.0-0.2) Sodium Level 131 mmol/L (136-145) Potassium Level 4.6 mmol/L (3.5-5.1) Chloride Level 98 mmol/L (98-107) Carbon Dioxide Level 29 mmol/L (21-32) Anion Gap 4 (6-14) Blood Urea Nitrogen 21 mg/dL (8-26) Creatinine 0.8 mg/dL (0.7-1.3) Estimated GFR (Cockcroft-Gault) 119.3 Glucose Level 187 mg/dL (70-99) Calcium Level 8.5 mg/dL (8.5-10.1) Glucose (Fingerstick) 176 mg/dL (70-99) 184 mg/dL (70-99) 165 mg/dL (70-99) Test 03/10/21 00:14 03/10/21 06:00 03/10/21 06:08 03/10/21 11:34 Glucose (Fingerstick) 157 mg/dL (70-99) 169 mg/dL (70-99) 170 mg/dL (70-99) Sodium Level 135 mmol/L (136-145) Potassium Level 4.4 mmol/L (3.5-5.1) Chloride Level 99 mmol/L (98-107) Carbon Dioxide Level 29 mmol/L (21-32) Anion Gap 7 (6-14) Blood Urea Nitrogen 27 mg/dL (8-26) Creatinine 0.9 mg/dL (0.7-1.3) Estimated GFR (Cockcroft-Gault) 104.2 Glucose Level 165 mg/dL (70-99) Calcium Level 9.4 mg/dL (8.5-10.1) Phosphorus Level 5.2 mg/dL (2.6-4.7) Albumin 2.5 g/dL (3.4-5.0) Test 03/10/21 17:22 03/10/21 21:28 03/11/21 01:11 Glucose (Fingerstick) 163 mg/dL (70-99) 149 mg/dL (70-99) 184 mg/dL (70-99) Laboratory Tests Test 03/10/21 06:00 03/10/21 06:08 03/10/21 11:34 03/10/21 17:22 Sodium Level 135 mmol/L (136-145) Potassium Level 4.4 mmol/L (3.5-5.1) Chloride Level 99 mmol/L (98-107) Carbon Dioxide Level 29 mmol/L (21-32) Anion Gap 7 (6-14) Blood Urea Nitrogen 27 mg/dL (8-26) Creatinine 0.9 mg/dL (0.7-1.3) Estimated GFR (Cockcroft-Gault) 104.2 Glucose Level 165 mg/dL (70-99) Calcium Level 9.4 mg/dL (8.5-10.1) Phosphorus Level 5.2 mg/dL (2.6-4.7) Albumin 2.5 g/dL (3.4-5.0) Glucose (Fingerstick) 169 mg/dL (70-99) 170 mg/dL (70-99) 163 mg/dL (70-99) Test 03/10/21 21:28 03/11/21 01:11 Glucose (Fingerstick) 149 mg/dL (70-99) 184 mg/dL (70-99) Comments CXR 02/21/21 IMPRESSION: 1. Stable life support devices. 2. Improving bibasilar opacities.. CXR 02/18/21 IMPRESSION: Unchanged bibasilar opacities. Recommend follow-up to ensure resolution, particularly of focal opacities in the right lung base. CXR 02/17/21 IMPRESSION: 1. Stable life support devices. 2. Stable bibasilar opacities. 3. Stable small left pleural effusion. IMPRESSION: Chest x-ray 02/13 1. Stable support lines and tubes. 2. Severe right upper lobe predominant bullous emphysema. 3. Stable right perihilar linear atelectasis or infiltrate superimposed on diffuse interstitial prominence and small pleural effusions. Impression . IMPRESSION: 1. Acute hypoxic respiratory failure multifactorial, predominantly to int raparenchymal cerebral hematoma. Status post tracheostomy 02/[address] reveals evidence of a new moderate-sized stroke of frontal lobe, per neurology. Most recent head CT shows left hemispheric strokes, with hemorrhagic transformation, thus he has had bilateral severe brain insults 3. Long history of tobaccoism. CT angiogram showed bullous emphysema in the upper lobes. 3. Acute kidney injury--resolved 4. Leukocytosis--resolved 5. s/p Right occipital craniotomy with evacuation of intracerebral hematoma. 02/09/21 6. Encephalopathy, multifactorial--ongoing 7. Uncontrolled hypertension 8. Fever, per ID--resolved 9. Status post tracheotomy 02/23 CT head 02/13, IMPRESSION: 1. Expected interval evolution of a right posterior temporal/occipital intraparenchymal hematoma status post decompressive craniotomy. 2. Expected evolution of a small amount of subarachnoid and intraventricular clot. DATE OF SURGERY: 02/09/2021 PREOPERATIVE DIAGNOSIS: Right posterior temporoparietal occipital intracerebral hemorrhage with neurologic deterioration. POSTOPERATIVE DIAGNOSIS: Right posterior temporoparietal occipital intracerebral hemorrhage with neurologic deterioration. OPERATION PERFORMED: Right occipital craniotomy with evacuation of intracerebral hematoma. Plan . Updated 03/11/21 Continue current vent support 16/500/40%/PEEP of 5 Continue sedation, patient does not tolerate sedation vacations, poor candidate for weaning Follow CXR/ABG PRN--no changes Follow neuro sx recs-- s/p Right occipital craniotomy with evacuation of intracerebral hematoma 02/09/21-not safe for anticoagulation Continue TPN for nutritional support DVT/GI PPX-- no AC 2/2 intracerebral hematoma D/W RN and RT Pt. is FULL code, with poor prognosis Social work for DC planning to LTACH? Updated 03/10/21 Continue current vent support 16/500/40 percent/PEEP of 5 Continue sedation, patient is not an optimal candidate for weaning Follow CXR/ABG PRN--no changes Follow ID recs for ABX--remains off antibiotics, ID has signed off the case Follow neuro sx recs-- s/p Right occipital craniotomy with evacuation of intracerebral hematoma 02/09/21-not safe for anticoagulation Hypertension Per PCP Continue TPN for nutritional support DVT/GI PPX-- no AC 2/2 intracerebral hematoma D/W RN and RT Pt. is FULL code, with poor prognosis Awaiting some family members to arrive next week to discuss goals of care Updated 03/09/21 This morning patient was noted to have paradoxical breathing while on pressure support mode. Patient will be placed back on assist control mode. We will restart sedation. Not an optimal candidate for weaning. Patient did not tolerate T shield yesterday as well, patient does not tolerate reduction of sedation increased respiratory rate and increased blood pressure. Follow CXR/ABG PRN--no changes Follow ID recs for ABX--remains off antibiotics Follow neuro sx recs-- s/p Right occipital craniotomy with evacuation of intracerebral hematoma 02/09/21-not safe for anticoagulation Hypertension Per PCP Continue TPN for nutritional support DVT/GI PPX-- no AC 2/2 intracerebral hematoma D/W RN and RT Pt. is FULL code, with poor prognosis . Family is coming in next week. Will discuss advance directives again. Critical care time 30 minutes RAJIV HORNE MD Mar 11, 2021 05:48
[2021-03-11 07:19] LABS: BASO # 0.1 x10^3/uL (0.0-0.2); BASO % 1 % (0-3); EOS # 0.2 x10^3/uL (0.0-0.7); EOS % 4 % (0-3); HEMATOCRIT 31.4 % (39.0-53.0); HEMOGLOBIN 10.5 g/dL (13.0-17.5); LYMPH # 1.7 x10^3/uL (1.0-4.8); LYMPH % 28 % (24-48); MEAN CORPUSCULAR HEMOGLOBIN 30 pg (25-35); MEAN CORPUSCULAR HGB CONC 33 g/dL (31-37); MEAN CORPUSCULAR VOLUME 90 fL (79-100); MONO # 0.6 x10^3/uL (0.0-1.1); MONO % 10 % (0-9); NEUT # 3.6 x10^3/uL (1.8-7.7); NEUT % 57 % (31-73); PLATELET COUNT 172 x10^3/uL (140-400); RED BLOOD COUNT 3.48 x10^6/uL (4.30-5.70); RED CELL DISTRIBUTION WIDTH 13.5 % (11.5-14.5); WHITE BLOOD COUNT 6.3 x10^3/uL (4.0-11.0)
[2021-03-11 07:31] LABS: CALCIUM 9.4 mg/dL (8.5-10.1); CREATININE 0.9 mg/dL (0.7-1.3); GFR 104.2; MAGNESIUM 1.8 mg/dL (1.8-2.4); PHOSPHORUS 5.5 mg/dL (2.6-4.7); POTASSIUM 4.4 mmol/L (3.5-5.1)
--- NOTE | 2021-03-11 07:32 | RAD ---
XR CHEST 1V History: Pneumonia. Comparison: 03/08/2021, 03/06/2021 Technique: Portable AP chest radiograph. Findings: Tubes and lines: Stable tracheostomy tube. Right upper chest on a PICC tip projects over the right at rium. Gastric tube courses below the left diaphragm off the margin of the radiograph. Lungs and pleura: Unchanged right lower lobe consolidation and likely adjacent effusion. Right upper lobe bulla. No pneumothorax. Minimal left basilar opacity. Cardiac silhouette and pulmonary vasculature: Stable enlarged cardiac silhouette. Diffusely dilated p ulmonary vasculature. Osseous structures and other: No change Impression: 1. 6 stable exam with persistent dense right lower lobe consolidation adjacent effusion. Electronically signed by: Richi Barragan MD (03/11/2021 7:30 AM) [facility]
[2021-03-11] MEDS: POLYETHYLENE GLYCOL 3350 17 GM PACKET. PO SCH (08:20)
[2021-03-11] MEDS: DOCUSATE 100 MG/10 ML SOLUTION. PO SCH (08:21)
[2021-03-11] MEDS: PANTOPRAZOLE IV PUSH 40 MG VIAL. IVP SCH (08:21)
[2021-03-11] MEDS: fentaNYL HIGH DOSE PCA 55 ML IV PRN (09:06)
--- NOTE | 2021-03-11 10:16 | PDOC ---
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 There is fairly stable surrounding edema and effacement of the posterior right lateral ventricle, favoring hemorrhagic transformation of a subacute infarction. Stable suspected hemorrhagic infarction within the left frontal lobe and stable small amount of acute subarachnoid hemorrhage along the cerebral convexities. There is also a stable small amount of intraventricular hemorrhage. There is no convincing obstructive hydrocephalus. remains on vent PS 10 and 40% family wants all measures and transfer to long-term acute care.// will need a tracheostomy and PEG Patient seen and examined in the ICU Interval development of a left frontal hypodensity concerning for subacute infarct. intubated but on spontaneous respirations 10 of pressure support with 40% FiO2 TPN hanging Moore to bedside drainage Sedated with propofol fentanyl and Dex Discussed with RN Chart reviewed remains critically ill Discontinue antibiotics 03-07 33 min cc time STATUS: ADM IN LOCATION: [address] [place] [address] 03-07 PREOPERATIVE DIAGNOSIS: Prolonged intubation and prolonged need for ventilatory support. POSTOPERATIVE DIAGNOSIS: Prolonged intubation and prolonged need for ventilatory support. PROCEDURE PERFORMED: Tracheostomy. 03/10/2021 Eyes open spontaneously in response to visual threat did not tolerate T shield 8-04 Slight interval decrease in the attenuation of an acute to subacute intraparenchymal hemorrhage centered within the posterior right cerebral hemisphere due to evolving blood products. There is fairly stable surrounding edema and effacement of the posterior right lateral ventricle, favoring hemorrhagic transformation of a subacute infarction. Stable suspected hemorrhagic infarction within the left frontal lobe and stable small amount of acute subarachnoid hemorrhage along the cerebral convexities. There is also a stable small amount of intraventricular hemorrhage. There is no convincing obstructive hydrocephalus. remains on vent PS 10 and 40% family wants all measures and transfer to long-term acute care.// will need a tracheostomy and PEG Patient seen and examined in the ICU Interval development of a left frontal hypodensity concerning for subacute infarct. intubated but on spontaneous respirations 10 of pressure support with 40% FiO2 TPN hanging Moore to bedside drainage Sedated with propofol fentanyl and Dex Discussed with RN Chart reviewed remains critically ill Discontinue antibiotics 03-07 33 min cc time STATUS: ADM IN LOCATION: [facility] 03-07 PREOPERATIVE DIAGNOSIS: Prolonged intubation and prolonged need for ventilatory support. POSTOPERATIVE DIAGNOSIS: Prolonged intubation and prolonged need for ventilatory support. PROCEDURE PERFORMED: Tracheostomy. SURGEON: Melony Saavedra MD [employer] NURSE PSYCHOTHERAPIST: LORNA Santacruz ANESTHESIA: General endotracheal anesthesia. INDICATIONS FOR SURGERY: The patient is a 61-year-old male admitted to the hospital on 02/09/2021 after suffering a stroke. The patient underwent right occipital craniotomy with evacuation of intracerebral hematoma on 02/09/2021 and he has continued to not awaken from anesthesia since that time. Due to prolonged need for ventilatory support, the decision was made for the patient to undergo a tracheostomy. After the risks, benefits and alternatives of surgery were discussed with the patient's family, an informed consent was obtained. 03/08/2021 Slight interval decrease in the attenuation of an acute to subacute intraparenchymal hemorrhage centered within the posterior right cerebral hemisphere due to evolving blood products. There is fairly stable surrounding edema and effacement of the posterior right lateral ventricle, favoring hemorrhagic transformation of a subacute infarction. Stable suspected hemorrhagic infarction within the left frontal lobe and stable small amount of acute subarachnoid hemorrhage along the cerebral convexities. There is also a stable small amount of intraventricular hemorrhage. There is no convincing obstructive hydrocephalus. remains on vent PS 10 and 40% family wants all measures and transfer to long-term acute care.// will need a tracheostomy and PEG Patient seen and examined in the ICU Interval development of a left frontal hypodensity concerning for subacute infarct. intubated but on spontaneous respirations 10 of pressure support with 40% FiO2 TPN hanging Moore to bedside drainage Sedated with propofol fentanyl and Dex Discussed with RN Chart reviewed remains critically ill Discontinue antibiotics 03-07 32 min cc time STATUS: ADM IN LOCATION: [facility] 03-07 PREOPERATIVE DIAGNOSIS: Prolonged intubation and prolonged need for ventilatory support. POSTOPERATIVE DIAGNOSIS: Prolonged intubation and prolonged need for ventilatory support. PROCEDURE PERFORMED: Tracheostomy. SURGEON: Melony Saavedra MD [employer] NURSE PSYCHOTHERAPIST: LORNA Santacruz 03/09/2021 did not tolerate T shield 03-08 Slight interval decrease in the attenuation of an acute to subacute intrap arenchymal hemorrhage centered within the posterior right cerebral hemisphere due to evolving blood products. There is fairly stable surrounding edema and effacement of the posterior right lateral ventricle, favoring hemorrhagic transformation of a subacute infarction. Stable suspected hemorrhagic infarction within the left frontal lobe and stable small amount of acute subarachnoid hemorrhage along the cerebral convexities. There is also a stable small amount of intraventricular hemorrhage. There is no convincing obstructive hydrocephalus. remains on vent PS 10 and 40% family wants all measures and transfer to long-term acute care.// will need a tracheostomy and PEG Patient seen and examined in the ICU Interval development of a left frontal hypodensity concerning for subacute infarct. intubated but on spontaneous respirations 10 of pressure support with 40% FiO2 TPN hanging Moore to bedside drainage Sedated with propofol fentanyl and Dex Discussed with RN Chart reviewed remains critically ill Discontinue antibiotics 03-07 34 min cc time STATUS: ADM IN LOCATION: [facility] ICU 03-07 PREOPERATIVE DIAGNOSIS: Prolonged intubation and prolonged need for ventilatory support. POSTOPERATIVE DIAGNOSIS: Prolonged intubation and prolonged need for ventilatory support. PROCEDURE PERFORMED: Tracheostomy. SURGEON: Melony Saavedra MD [employer] NURSE PSYCHOTHERAPIST: LORNA Santacruz ANESTHESIA: General endotracheal anesthesia. INDICATIONS FOR SURGERY: The patient is a 61-year-old male admitted to the hospital on 02/09/2021 after suffering a stroke. The patient underwent right occipital craniotomy with evacuation of intracerebral hematoma on 02/09/2021 and he has continued to not awaken from anesthesia since that time. Due to prolonged need for ventilatory support, the decision was made for the patient to undergo a tracheostomy. After the risks, benefits and alternatives of surgery were discussed with the patient's family, an informed consent was obtained. 03/08/2021 Slight interval decrease in the attenuation of an acute to subacute intraparenchymal hemorrhage centered within the posterior right cerebral hemisphere due to evolving blood products. There is fairly stable surrounding edema and effacement of the posterior right lateral ventricle, favoring hemorrhagic transformation of a subacute infarction. Stable suspected hemorrhagic infarction within the left frontal lobe and stable small amount of acute subarachnoid hemorrhage along the cerebral convexities. There is also a stable small amount of intraventricular hemorrhage. There is no convincing obstructive hydrocephalus. remains on vent PS 10 and 40% family wants all measures and transfer to long-term acute care.// will need a tracheostomy and PEG Patient seen and examined in the ICU Interval development of a left frontal hypodensity concerning for subacute infarct. intubated but on spontaneous respirations 10 of pressure support with 40% FiO2 TPN hanging Moore to bedside drainage Sedated with propofol fentanyl and Dex Discussed with RN Chart reviewed remains critically ill Discontinue antibiotics 03-07 32 min cc time STATUS: ADM IN LOCATION: [address] [place] [address] 03-07 PREOPERATIVE DIAGNOSIS: Prolonged intubation and prolonged need for ventilatory support. POSTOPERATIVE DIAGNOSIS: Prolonged intubation and prolonged need for ventilatory support. PROCEDURE PERFORMED: Tracheostomy. SURGEON: Melony Saavedra MD [employer] NURSE PSYCHOTHERAPIST: LORNA Santacruz ANESTHESIA: General endotracheal anesthesia. INDICATIONS FOR SURGERY: The patient is a 61-year-old male admitted to the hospital on 02/09/2021 after suffering a stroke. The patient underwent right occipital craniotomy with evacuation of intracerebral hematoma on 02/09/2021 and he has continued to not awaken from anesthesia since that time. Due to prolonged need for ventilatory support, the decision was made for the patient to undergo a tracheostomy. After the risks, benefits and alternatives of surgery were discussed with the patient's family, an informed consent was obtained. 03/07/2021 Slight interval decrease in the attenuation of an acute to subacute intraparenchymal hemorrhage centered within the posterior right cerebral hemisphere due to evolving blood products. There is fairly stable surrounding edema and effacement of the posterior right lateral ventricle, favoring hemorrhagic transformation of a subacute infarction. Stable suspected hemorrhagic infarction within the left frontal lobe and stable small amount of acute subarachnoid hemorrhage along the cerebral convexities. There is also a stable small amount of intraventricular hemorrhage. There is no convincing obstructive hydrocephalus. remains on vent PS 10 and 40% family wants all measures and transfer to long-term acute care.// will need a tracheostomy and PEG Patient seen and examined in the ICU Interval development of a left frontal hypodensity concerning for subacute infarct. intubated but on spontaneous respirations 10 of pressure support with 40% FiO2 TPN hanging Moore to bedside drainage Sedated with propofol fentanyl and Dex Discussed with RN Chart reviewed remains critically ill Discontinue antibiotics 03-07 33 min cc time 03/06/2021 family wants all measures and transfer to long-term acute care.// will need a tracheostomy and PEG Patient seen and examined in the ICU Interval development of a left frontal hypodensity concerning for subacute infarct. intubated but on spontaneous respirations 10 of pressure support with 40% FiO2 considering starting OG feeds but still currently has TPN hanging Moore to bedside drainage Sedated with propofol fentanyl and Dex Discussed with RN Chart reviewed remains critically ill 33 min cc time 03/05/2021 Patient seen and examined in the ICU He is still intubated but on spontaneous respirations 10 of pressure support with 40% FiO2 We are considering starting OG feeds today but still currently has TPN hanging Moore to bedside drainage Sedated with propofol fentanyl and Dex Discussed with RN Chart reviewed He remains critically ill 03/04/2021 Patient seen and examined in the ICU He is currently on spontaneous respirations via tracheostomy with pressure support of 10 Discussed with RN Chart reviewed Patient still has TPN running but we are going to try to change that to OG feeds later today Sedated with fentanyl propofol and Precedex SCDs in place Moore to bedside drainage Remains critically ill 03/03/2021 Patient seen and examined in the ICU He has a clean dry intact tracheostomy Currently on spontaneous respirations with 10 of pressure support 40% FiO2 Discussed with RN Chart reviewed Has TPN hanging Sedated with fentanyl propofol and Precedex OG feeds are to suction SCDs in place Moore to bedside drainage He remains critically ill 03/02/2021 Patient seen and examined in the ICU We just changed him over to spontaneous respirations with 10 of pressure support and 40% FiO2 Discussed with RN and respiratory therapy He has been able to be on spontaneous respirations during the daytime for the past 3 days but we have placed him back on assist-control at nighttime Trach is clean and in tact Has Moore to bedside drainage SCDs in place OG is to suction Has IV TPN Has IV Zyvox Sedated with Precedex and propofol 03/01/2021 Patient seen and examined in the ICU He remains mechanically ventilated AC/16/500/40 5% with 5 of PEEP trach appears clean dry and intact He is a Mooer bedside drainage Sedated with fentanyl and propofol Has TPN hanging Discussed with RN Discussed with case management Chart reviewed He remains very critically ill 02/28/2021 Patient seen and examined in the ICU He remains mechanically ventilated Has a tracheostomy in place Vent settings as follows AC/16/500/45/5 of PEEP Has SCDs in place Moore is to bedside drainage Sedated with Precedex fentanyl and propofol Has IV TPN Chart reviewed Discussed with RN He remains critically 02/27/2021 Patient seen and examined in the ICU He remains mechanically ventilated AC/16/500/40 5% with 5 of PEEP Has tracheostomy in place Has TPN running SCDs are in place Moore to bedside drainage Sedated with fentanyl and propofol Discussed with RN Chart reviewed He remains critically 02/26/2021: Low-grade fever overnight (99.6 F). On vent with FiO2 40%, PEEP 5. S/p tracheostomy 02/23. Per RN, some hypertension overnight (systolic BP 203) requiring IV nicardipine, but this has been titrated down and now able to resume as needed hydralazine. Recommend keep nicardipine on standby to maintain blood pressure <150/90 mmHg. Continue TPN but will likely need PEG tube and eventually long-term acute care. Due to low-grade fever, lines are being changed. Continue Zosyn and Zyvox, per ID. Critical care time 30 minutes spent reviewing charts, reviewing imaging, reviewing labs, and discussion with RN. 02/25/2021: Remains on vent with FiO2 40%, PEEP 5. Afebrile. Plan for follow-up CT head on Saturday. Continue Zosyn, per ID. Blood glucose well controlled. Critical care time 30 minutes spent reviewing charts, reviewing imaging, reviewing labs, and discussion with RN. 02/24/2021: Afebrile. Had tracheostomy performed yesterday. On vent with FiO2 40%, PEEP 5. Continue antibiotics, per ID. Critical care time 30 minutes reviewing labs, reviewing imaging, reviewing charts, discussed with RN. 02/23/2021: Patient remains intubated in ICU, FiO2 40%, PEEP 5. I believe plan is for trach today. Continue daptomycin, Zosyn, and Zyvox, per ID. Critical care time 30 minutes spent reviewing charts, reviewing labs, reviewing imaging, discussion with RN. 02/22/2011: Patient ange intubated in ICU. Febrile today, T-max 100.3. FiO2 40, PEEP 5. Continue treatment with Zosyn, per ID. Continue to wean sedation as tolerated. Plan for trach tomorrow. Critical care time 30 minutes spent reviewing chart, reviewing labs, imaging, and discussion with RN. 02/21/2021: Patient remains intubated in ICU, FiO2 40%, PEEP 5. Afebrile. POD #12, s/p right occipital craniotomy with evacuation of intracerebral hematoma (02/09/21). Chest x-ray today shows improving bibasilar opacities. Continue Zos yn, per ID. Critical care time 30 minutes spent reviewing charts, reviewing labs, reviewing imaging, discussion with RN. 02/20/2021: POD #11 Right occipital craniotomy with evacuation of intracerebral hematoma (02/09/21). Remains sedated on ventilator, FiO2 40%, PEEP 5. Chest x- ray from 02/18 showed unchanged bibasilar opacities; recommending follow-up to ensure resolution, particularly of focal opacities in the right lung base. Continue Zosyn. Continue supportive care. Critical care time 30 minutes spent reviewing charts, reviewing labs, reviewing imaging, discussion with RN. 02/19/2021 POD #11 Right occipital craniotomy with evacuation of intracerebral hematoma sedated on vent Patient seen and examined at bedside Continue antibiotics per infectious disease Weaning ventilator and sedation as tolerated extubation in the next few days Plan of care discussed with bedside nurse Expected interval evolution of a right posterior temporal/occipital intraparenchymal hematoma status post decompressive craniotomy Large right temporo-occipital intraparenchymal bleed, most likely lobar hemorrhage from hypertension, consider venous sinus thrombosis, less likely in this location, aneurysmal bleed, head trauma (also unlikely). craniotomy 02/09 evening Suspect of aspiration, respiratory failure, hypertension, chronic obstructive pulmonary disease, improving acute kidney injury cont Zosyn glucose uncontrolled add Lantus 22 UNITS SQ HS elevated troponin suspect stress induced ischemia 36 MIN CC TIME 02/18/2021 POD #10 Right occipital craniotomy with evacuation of intracerebral hematoma sedated on vent Patient seen and examined at bedside Continue antibiotics per infectious disease Weaning ventilator and sedation as tolerated extubation in the next few days Plan of care discussed with bedside nurse Expected interval evolution of a right posterior temporal/occipital intraparenchymal hematoma status post decompressive craniotomy Large right temporo-occipital intraparenchymal bleed, most likely lobar hemorrh age from hypertension, consider venous sinus thrombosis, less likely in this location, aneurysmal bleed, head trauma (also unlikely). Had craniotomy 02/09 evening Suspect of aspiration, respiratory failure, hypertension, chronic obstructive pulmonary disease, improving acute kidney injury cont Zosyn glucose uncontrolled add Lantus 22 UNITS SQ HS 34 MIN CC TIME 02/17/2021 POD #8 Right occipital craniotomy with evacuation of intracerebral hematoma sedated on vent Patient seen and examined at bedside Good response to IV Lasix Continue antibiotics per infectious disease Weaning ventilator and sedation as tolerated extubation in the next few days Plan of care discussed with bedside nurse Expected interval evolution of a right posterior temporal/occipital intraparenchymal hematoma status post decompressive craniotomy Large right temporo-occipital intraparenchymal bleed, most likely lobar hemorrhage from hypertension, consider venous sinus thrombosis, less likely in this location, aneurysmal bleed, head trauma (also unlikely). Had craniotomy 02/09 evening Suspect of aspiration, respiratory failure, hypertension, chronic obstructive pulmonary disease, improving acute kidney injury cont Zosyn glucose uncontrolled add Lantus 18 UNITS SQ HS 33 MIN CC TIME 02/16/2021 POD #7 Right occipital craniotomy with evacuation of intracerebral hematoma sedated on vent Patient seen and examined at bedside Good response to IV Lasix Continue antibiotics per infectious disease Weaning ventilator and sedation as tolerated extubation in the next few days Plan of care discussed with bedside nurse Expected interval evolution of a right posterior temporal/occipital intraparenchymal hematoma status post decompressive craniotomy Large right temporo-occipital intraparenchymal bleed, most likely lobar hemorrhage from hypertension, consider venous sinus thrombosis, less likely in this location, aneurysmal bleed, head trauma (also unlikely). Had craniotomy 02/09 evening Suspect of aspiration, respiratory failure, hypertension, chronic obstructive pulmonary disease, improving acute kidney injury cont Zosyn glucose uncontrolled add Lantus 14 UNITS SQ HS 35 MIN CC TIME 02/15/2021 POD #6 Right occipital craniotomy with evacuation of intracerebral hematoma sedated on vent Patient seen and examined at bedside Good response to IV Lasix Continue antibiotics per infectious disease Weaning ventilator and sedation as tolerated Hopeful extubation in the next few days Plan of care discussed with bedside nurse Expected interval evolution of a right posterior temporal/occipital intraparenchymal hematoma status post decompressive craniotomy Large right temporo-occipital intraparenchymal bleed, most likely lobar hemorrhage from hypertension, consider venous sinus thrombosis, less likely in this location, aneurysmal bleed, head trauma (also unlikely). Had craniotomy 02/09 evening Suspect of aspiration, respiratory failure, hypertension, chronic obstructive pulmonary disease, improving acute kidney injury cont Zosyn glucose uncontrolled add Lantus 35 MIN CC TIME 02/14/2021 POD #5 Right occipital craniotomy with evacuation of intracerebral hematoma sedated on vent Patient seen and examined at bedside Good response to IV Lasix Continue antibiotics per infectious disease Weaning ventilator and sedation as tolerated Hopeful extubation in the next few days Plan of care discussed with bedside nurse Expected interval evolution of a right posterior temporal/occipital intraparenchymal hematoma status post decompressive craniotomy Large right temporo-occipital intraparenchymal bleed, most likely lobar hemorrhage from hypertension, consider venous sinus thrombosis, less likely in this location, aneurysmal bleed, head trauma (also unlikely). Had craniotomy 02/09 evening Suspect of aspiration, respiratory failure, hypertension, chronic obstructive pulmonary disease, improving acute kidney injury cont Zosyn glucose uncontrolled add Lantus 35 MIN CC TIME 02/13/2021 POD #4 Right occipital craniotomy with evacuation of intracerebral hematoma sedated on vent Patient seen and examined at bedside Good response to IV Lasix Continue antibiotics per infectious disease Weaning ventilator and sedation as tolerated Hopeful extubation in the next few days Plan of care discussed with bedside nurse Expected interval evolution of a right posterior temporal/occipital intraparenchymal hematoma status post decompressive craniotomy Large right temporo-occipital intraparenchymal bleed, most likely lobar hemorrhage from hypertension, consider venous sinus thrombosis, less likely in this location, aneurysmal bleed, head trauma (also unlikely). Had craniotomy 02/09 evening Suspect of aspiration, respiratory failure, hypertension, chronic obstructive pulmonary disease, improving acute kidney injury cont Zosyn 35 MIN CC TIME 02/12/2021 Patient seen and examined at bedside Remains intubated and sedated Good response to IV Lasix yesterday had nearly 3 L out; will diurese again today Continue antibiotics per infectious disease Weaning ventilator and sedation as tolerated Hopeful extubation in the next few days Plan of care discussed with bedside nurse 02/11/2021 Patient seen and examined at bedside No major clinical changes overnight however this morning patient has largely increased amount of secretions Chest x-ray concerning for possible pneumonia, will consult ID who recommended starting Zosyn Otherwise he remains intubated and sedated We will follow subspecialist input Plan discussed with bedside RN 02/10/2021 Patient seen and examined at bedside Underwent craniotomy yesterday due to unresponsiveness in the late afternoon; was also intubated Continues to have a poor neurologic status Neurology and neurosurgery following Discussed plan of care with bedside nurse Patient is a 61-year-old male transferred for to the ICU overnight due to hypertensive emergency and intracranial hemorrhage. Patient's mother at bedside provides most the history. She reports that patient had been in his usual state of health until yesterday morning when he reported feeling tired and having a headache. Patient mother reports he normally gets up early and goes outside however this was not the case yesterday. With this headache he took BC powder and went back to bed. Patient's mother reports that he was in and out of bed throughout most of the afternoon. Says patient did not eat anything yesterday which is very unusual for him. Approximately 1130 last night she had the patient get up to go to the bathroom and heard him fall. He however is able to get up and returned to bed; unknown if he hit his head at this time. Patient again woke up around 2 AM and woke up his mother asking for orange juice and then proceeded to fall again, she does not think he hit his head at this time. He was taken to hospital and found to have a systolic blood pressure greater than [address] scan found to have an intracranial hemorrhage. Due to severity of his condition he was transferred here. Patient's mother reports she is not aware of any past medical history other than hypertension which he intermittently takes hydrochlorothiazide for. Vitals Vitals Vital Signs Date Time Temp Pulse Resp B/P (MAP) Pulse Ox O2 Delivery O2 Flow Rate FiO2 03/11/21 10:07 99 Ventilator 03/11/21 09:36 16 03/11/21 09:00 66 133/72 (92) 03/11/21 08:00 97.9 97.9 Physical Exam Physical Exam GENERAL: Sedated on vent, patient is not following commands HEENT: no icterus,NGT + NECK trach present LUNGS: Decreased breath sound at bases HEART: S1, S2 bradycardia ABDOMEN: Soft, nontender, mildly distended EXTREMITIES: + edema, no cyanosis. SKIN:no gen rash NEUROLOGIC: unable to assess Right IJ taken out RT PICC Line clean General: Other (sedated, on vent) Heart: Regular rate Lungs: Clear Abdomen: Normal bowel sounds Extremities: No clubbing, No cyanosis, No edema Skin: Other (incision healed well) Labs LABS SPEC #: [id number] BRIANA: 02/22/21 STATUS: COMP REQ #: [id number] RECD: 02/22/21 [facility] DR: RAMU DELGADO MD SOURCE: BLOOD ENTR: 02/22/[address]: EITAN LORENZO MD SPDESC: JANE DELGADO MD,YULIA DENNY,LUCINDA SAAVEDRA,MELONY HORNE,RAJIV SAHNI,CATHRYN WEST,JOANNE BROWN MD, MD, CHRISTOPHER MD ORDERED: BCULT Procedure Result BLOOD CULTURE Final NO GROWTH AFTER 5 DAYS PATIENT: COOPER CHAVEZ ACCOUNT: [id number] : 1960 LOCATION: [facility] ICU AGE: 61 SEX: M EXAM STATUS: ADM IN ORD. PHYSICIAN: LESLI ALCOCER MD REASON: pneumonia PROCEDURE: CHEST AP ONLY XR CHEST 1V History: Pneumonia. Comparison: 03/08/2021, 03/06/2021 Technique: Portable AP chest radiograph. Findings: Tubes and lines: Stable tracheostomy tube. Right upper chest on a PICC tip projects over the right atrium. Gastric tube courses below the left diaphragm off the margin of the radiograph. Lungs and pleura: Unchanged right lower lobe consolidation and likely adjacent e ffusion. Right upper lobe bulla. No pneumothorax. Minimal left basilar opacity. Cardiac silhouette and pulmonary vasculature: Stable enlarged cardiac silhouette. Diffusely dilated pulmonary vasculature. Osseous structures and other: No change Impression: 1. 6 stable exam with persistent dense right lower lobe consolidation adjacent effusion. Electronically signed by: Richi Hill MD (03/11/2021 7:30 AM) [facility] DICTATED and SIGNED BY: RICHI HILL MD DATE: 03/11/21 [id number] Laboratory Tests Test 03/10/21 11:34 03/10/21 17:22 03/10/21 21:28 03/11/21 01:11 Glucose (Fingerstick) 170 mg/dL (70-99) 163 mg/dL (70-99) 149 mg/dL (70-99) 184 mg/dL (70-99) Test 03/11/21 06:20 03/11/21 07:27 White Blood Count 6.3 x10^3/uL (4.0-11.0) Red Blood Count 3.48 x10^6/uL (4.30-5.70) Hemoglobin 10.5 g/dL (13.0-17.5) Hematocrit 31.4 % (39.0-53.0) Mean Corpuscular Volume 90 fL (79-100) Mean Corpuscular Hemoglobin 30 pg (25-35) Mean Corpuscular Hemoglobin Concent 33 g/dL (31-37) Red Cell Distribution Width 13.5 % (11.5-14.5) Platelet Count 172 x10^3/uL (140-400) Neutrophils (%) (Auto) 57 % (31-73) Lymphocytes (%) (Auto) 28 % (24-48) Monocytes (%) (Auto) 10 % (0-9) Eosinophils (%) (Auto) 4 % (0-3) Basophils (%) (Auto) 1 % (0-3) Neutrophils # (Auto) 3.6 x10^3/uL (1.8-7.7) Lymphocytes # (Auto) 1.7 x10^3/uL (1.0-4.8) Monocytes # (Auto) 0.6 x10^3/uL (0.0-1.1) Eosinophils # (Auto) 0.2 x10^3/uL (0.0-0.7) Basophils # (Auto) 0.1 x10^3/uL (0.0-0.2) Sodium Level 135 mmol/L (136-145) Potassium Level 4.4 mmol/L (3.5-5.1) Chloride Level 100 mmol/L (98-107) Carbon Dioxide Level 30 mmol/L (21-32) Anion Gap 5 (6-14) Blood Urea Nitrogen 26 mg/dL (8-26) Creatinine 0.9 mg/dL (0.7-1.3) Estimated GFR (Cockcroft-Gault) 104.2 Glucose Level 126 mg/dL (70-99) Calcium Level 9.4 mg/dL (8.5-10.1) Phosphorus Level 5.5 mg/dL (2.6-4.7) Magnesium Level 1.8 mg/dL (1.8-2.4) Glucose (Fingerstick) 142 mg/dL (70-99) Comment Review of Relevant I have reviewed the following items neela (where applicable) has been applied. Labs Laboratory Tests Test 03/09/21 14:55 03/09/21 18:15 03/10/21 00:14 03/10/21 06:00 Glucose (Fingerstick) 184 mg/dL (70-99) 165 mg/dL (70-99) 157 mg/dL (70-99) Sodium Level 135 mmol/L (136-145) Potassium Level 4.4 mmol/L (3.5-5.1) Chloride Level 99 mmol/L (98-107) Carbon Dioxide Level 29 mmol/L (21-32) Anion Gap 7 (6-14) Blood Urea Nitrogen 27 mg/dL (8-26) Creatinine 0.9 mg/dL (0.7-1.3) Estimated GFR (Cockcroft-Gault) 104.2 Glucose Level 165 mg/dL (70-99) Calcium Level 9.4 mg/dL (8.5-10.1) Phosphorus Level 5.2 mg/dL (2.6-4.7) Albumin 2.5 g/dL (3.4-5.0) Test 03/10/21 06:08 03/10/21 11:34 03/10/21 17:22 03/10/21 21:28 Glucose (Fingerstick) 169 mg/dL (70-99) 170 mg/dL (70-99) 163 mg/dL (70-99) 149 mg/dL (70-99) Test 03/11/21 01:11 03/11/21 06:20 03/11/21 07:27 Glucose (Fingerstick) 184 mg/dL (70-99) 142 mg/dL (70-99) White Blood Count 6.3 x10^3/uL (4.0-11.0) Red Blood Count 3.48 x10^6/uL (4.30-5.70) Hemoglobin 10.5 g/dL (13.0-17.5) Hematocrit 31.4 % (39.0-53.0) Mean Corpuscular Volume 90 fL (79-100) Mean Corpuscular Hemoglobin 30 pg (25-35) Mean Corpuscular Hemoglobin Concent 33 g/dL (31-37) Red Cell Distribution Width 13.5 % (11.5-14.5) Platelet Count 172 x10^3/uL (140-400) Neutrophils (%) (Auto) 57 % (31-73) Lymphocytes (%) (Auto) 28 % (24-48) Monocytes (%) (Auto) 10 % (0-9) Eosinophils (%) (Auto) 4 % (0-3) Basophils (%) (Auto) 1 % (0-3) Neutrophils # (Auto) 3.6 x10^3/uL (1.8-7.7) Lymphocytes # (Auto) 1.7 x10^3/uL (1.0-4.8) Monocytes # (Auto) 0.6 x10^3/uL (0.0-1.1) Eosinophils # (Auto) 0.2 x10^3/uL (0.0-0.7) Basophils # (Auto) 0.1 x10^3/uL (0.0-0.2) Sodium Level 135 mmol/L (136-145) Potassium Level 4.4 mmol/L (3.5-5.1) Chloride Level 100 mmol/L (98-107) Carbon Dioxide Level 30 mmol/L (21-32) Anion Gap 5 (6-14) Blood Urea Nitrogen 26 mg/dL (8-26) Creatinine 0.9 mg/dL (0.7-1.3) Estimated GFR (Cockcroft-Gault) 104.2 Glucose Level 126 mg/dL (70-99) Calcium Level 9.4 mg/dL (8.5-10.1) Phosphorus Level 5.5 mg/dL (2.6-4.7) Magnesium Level 1.8 mg/dL (1.8-2.4) Laboratory Tests Test 03/10/21 11:34 03/10/21 17:22 03/10/21 21:28 03/11/21 01:11 Glucose (Fingerstick) 170 mg/dL (70-99) 163 mg/dL (70-99) 149 mg/dL (70-99) 184 mg/dL (70-99) Test 03/11/21 06:20 03/11/21 07:27 White Blood Count 6.3 x10^3/uL (4.0-11.0) Red Blood Count 3.48 x10^6/uL (4.30-5.70) Hemoglobin 10.5 g/dL (13.0-17.5) Hematocrit 31.4 % (39.0-53.0) Mean Corpuscular Volume 90 fL (79-100) Mean Corpuscular Hemoglobin 30 pg (25-35) Mean Corpuscular Hemoglobin Concent 33 g/dL (31-37) Red Cell Distribution Width 13.5 % (11.5-14.5) Platelet Count 172 x10^3/uL (140-400) Neutrophils (%) (Auto) 57 % (31-73) Lymphocytes (%) (Auto) 28 % (24-48) Monocytes (%) (Auto) 10 % (0-9) Eosinophils (%) (Auto) 4 % (0-3) Basophils (%) (Auto) 1 % (0-3) Neutrophils # (Auto) 3.6 x10^3/uL (1.8-7.7) Lymphocytes # (Auto) 1.7 x10^3/uL (1.0-4.8) Monocytes # (Auto) 0.6 x10^3/uL (0.0-1.1) Eosinophils # (Auto) 0.2 x10^3/uL (0.0-0.7) Basophils # (Auto) 0.1 x10^3/uL (0.0-0.2) Sodium Level 135 mmol/L (136-145) Potassium Level 4.4 mmol/L (3.5-5.1) Chloride Level 100 mmol/L (98-107) Carbon Dioxide Level 30 mmol/L (21-32) Anion Gap 5 (6-14) Blood Urea Nitrogen 26 mg/dL (8-26) Creatinine 0.9 mg/dL (0.7-1.3) Estimated GFR (Cockcroft-Gault) 104.2 Glucose Level 126 mg/dL (70-99) Calcium Level 9.4 mg/dL (8.5-10.1) Phosphorus Level 5.5 mg/dL (2.6-4.7) Magnesium Level 1.8 mg/dL (1.8-2.4) Glucose (Fingerstick) 142 mg/dL (70-99) Microbiology 02/23/21 Gram Stain - Final, Complete 02/23/21 Aerobic Culture - Final, Complete 02/22/21 Blood Culture - Final, Complete NO GROWTH AFTER 5 DAYS 02/22/21 Gram Stain Evaluation - Final, Complete 02/22/21 Respiratory Culture - Final, Complete Medications Current Medications Nicardipine HCl 50 mg/Sodium Chloride 250 ml @ 12.5 mls/hr CONT PRN IV SEE I/O RECORD Last administered on 02/26/21at 01:20; Start 02/09/21 at 06:15 Labetalol HCl (Normodyne Iv Push) 10 mg PRN Q2HR PRN IVP HYPERTENSION- 1ST CHOICE Last administered on 03/08/21at 09:05; Start 02/09/21 at 06:15 Lorazepam (Ativan Inj) 2 mg 1X ONCE IVP Last administered on 02/09/21at 10:54; Start 02/09/21 at 10:45; Stop 02/09/21 at 10:46; Status DC Lorazepam (Ativan Inj) 2 mg 1X ONCE IVP Last administered on 02/09/21at 11:00; Start 02/09/21 at 11:00; Stop 02/09/21 at 11:01; Status DC Fentanyl Citrate (Fentanyl 2ml Vial) 25 mcg PRN Q2HR PRN IVP MODERATE TO SEVERE PAIN Last administered on 02/09/21at 13:37; Start 02/09/21 at 13:30; Stop 02/18/21 at 22:53; Status DC Info (Review Meds) 1 ea PRN 1X PRN MC SEE COMMENTS; Start 02/09/21 at 15:00 Acetaminophen (Tylenol Supp) 650 mg PRN Q6HRS PRN [place] FEVER > 100.5'F or 38'C; Start 02/09/21 at 15:00; Stop 02/11/21 at 21:12; Status DC Albuterol Sulfate (Ventolin Neb Soln) 2.5 mg PRN Q4HRS PRN NEB SHORTNESS OF BREATH; Start 02/09/21 at 15:15 Iohexol (Omnipaque 350 Mg/ml) 75 ml 1X ONCE IV Last administered on 02/09/21at 15:52; Start 02/09/21 at 15:30; Stop 02/09/21 at 15:35; Status DC Iohexol (Omnipaque 350 Mg/ml) 100 ml STK-MED ONCE .ROUTE ; Start 02/09/21 at 15:26; Stop 02/09/21 at 15:27; Status DC Info (CONTRAST GIVEN -- Rx MONITORING) 1 each PRN DAILY PRN MC SEE COMMENTS; Start 02/09/21 at 15:45; Stop 02/11/21 at 15:44; Status DC Propofol 100 ml @ As Directed STK-MED ONCE IV ; Start 02/09/21 at 15:51; Stop 02/09/21 at 15:51; Status DC Rocuronium [place] (Zemuron) 50 mg STK-MED ONCE .ROUTE ; Start 02/09/21 at 15:51; Stop 02/09/21 at 15:51; Status DC Lidocaine HCl (Lidocaine HCl 2% Abboject) 100 mg STK-MED ONCE .ROUTE ; Start 02/09/21 at 15:52; Stop 02/09/21 at 15:53; Status DC Propofol 100 ml @ 3.507 mls/ hr CONT PRN IV PER PROTOCOL Last administered on 03/11/21 08:24; Start 02/09/21 at 16:15 Lidocaine HCl (Lidocaine HCl 2% Abboject) 100 mg 1X ONCE IV Last administered on 02/09/21 16:17; Start 02/09/21 at 16:15; Stop 02/09/21 at 16:17; Status DC Rocuronium [place] (Zemuron) 50 mg 1X ONCE IV Last administered on 02/09/21 16 :17; Start 02/09/21 at 16:15; Stop 02/09/21 at 16:17; Status DC Rocuronium [place] (Zemuron) 100 mg STK-MED ONCE .ROUTE ; Start 02/09/21 at 16:31; Stop 02/09/21 at 16:32; Status DC Gelatin (Gelfoam Size 100) 1 each STK-MED ONCE .ROUTE Last administered on 02/09/21 17:49; Start 02/09/21 at 16:33; Stop 02/09/21 at 16:33; Status DC Bupivacaine HCl/ Epinephrine Bitart (Sensorcain-Epi 0.5%-1:[id number] Mpf) 30 ml STK-MED ONCE .ROUTE Last administered on 02/09/21 17:49; Start 02/09/21 at 16:33; Stop 02/09/21 at 16:33; Status DC Cellulose (Surgicel Hemostat 4x8) 1 each STK-MED ONCE .ROUTE Last administered on 02/09/21 18:38; Start 02/09/21 at 16:33; Stop 02/09/21 at 16:33; Status DC Thrombin 20,000 unit STK-MED ONCE TP Last administered on 02/09/21 17:49; Start 02/09/21 at 16:33; Stop 02/09/21 at 16:33; Status DC Fentanyl Citrate (Fentanyl 2ml Vial) 75 mcg 1X ONCE IVP Last administered on 02/09/21 16:45; Start 02/09/21 at 16:45; Stop 02/09/21 at 16:47; Status DC Propofol (Diprivan) 200 mg 1X ONCE IV ; Start 02/09/21 at 17:15; Stop 02/09/21 at 17:16; Status DC Lidocaine HCl (Lidocaine HCl 2% Abboject) 100 mg 1X ONCE IV ; Start 02/09/21 at 17:15; Stop 02/09/21 at 17:16; Status DC Rocuronium [place] (Zemuron) 50 mg 1X ONCE IV ; Start 02/09/21 at 17:15; Stop 02/09/21 at 17:16; Status DC Propofol 100 ml @ 0 mls/hr CONT PRN PRN IV SEDATION; Start 02/09/21 at 17:15; Stop 02/10/21 at 05:14; Status DC Cefazolin Sodium (Ancef) 1 gm STK-MED ONCE IVP ; Start 02/09/21 at 17:28; Stop 02/09/21 at 17:28; Status DC Fentanyl Citrate (Fentanyl 2ml Vial) 100 mcg STK-MED ONCE .ROUTE ; Start 02/09/21 at 17:43; Stop 02/09/21 at 17:43; Status DC Rocuronium [place] (Zemuron) 100 mg STK-MED ONCE .ROUTE ; Start 02/09/21 at 17:58; Stop 02/09/21 at 17:59; Status DC Vecuronium [place] (Norcuron Bolus) 10 mg STK-MED ONCE IV ; Start 02/09/21 at 18:49; Stop 02/09/21 at 18:50; Status DC Sodium Chloride (SODIUM CHLORIDE 20ml) 20 ml STK-MED ONCE IJ ; Start 02/09/21 at 18:50; Stop 02/09/21 at 18:50; Status DC Sevoflurane (Ultane) 90 ml STK-MED ONCE IH ; Start 02/09/21 at 19:20; Stop 02/09/21 at 19:21; Status DC Fentanyl Citrate 30 ml @ 2.5 mls/hr CONT PRN IV SEE PROTOCOL Last administered on 02/09/21at 23:40; Start 02/09/21 at 23:15; Stop 02/10/21 at 04:43; Status DC Fentanyl Citrate 55 ml @ 0 mls/hr CONT PRN IV SEE I/O Last administered on 03/11/21at 09:06; Start 02/10/21 at 05:00 Potassium Chloride/Dextrose/ Sod Cl 1,000 ml @ 80 mls/hr [id number] IV ; Start 02/10/21 at 09:00; Stop 02/10/21 at 13:21; Status DC Pantoprazole Sodium (PROTONIX VIAL for IV PUSH) 40 mg DAILYAC IVP Last administered on 03/11/21at 08:21; Start 02/10/21 at 09:00 Lidocaine HCl (Buffered Lidocaine 1%) 3 ml STK-MED ONCE .ROUTE ; Start 02/10/21 at 13:18; Stop 02/10/21 at 13:18; Status DC Sodium Chloride 1,000 ml @ 80 mls/hr [id number] IV Last administered on 02/12/21at 03:00; Start 02/10/21 at 13:30; Stop 02/12/21 at 15:36; Status DC Lidocaine HCl (Buffered Lidocaine 1%) 6 ml 1X ONCE INJ Last administered on 02/10/21at 13:57; Start 02/10/21 at 13:45; Stop 02/10/21 at 13:46; Status DC Potassium Chloride/Water 100 ml @ 100 mls/hr Q1H IV Last administered on 02/11/21at 10:07; Start 02/11/21 at 08:00; Stop 02/11/21 at 09:59; Status DC Piperacillin Sod/ Tazobactam Sod 3.375 gm/Sodium Chloride 50 ml @ 100 mls/hr Q6HRS IV Last administered on 03/07/21at 05:35; Start 02/11/21 at 09:00; Stop 03/07/21 at 09:45; Status DC Info (Tpn Per Pharmacy) 1 each PRN DAILY PRN MC SEE COMMENTS Last administered on 03/10/21at 14:14; Start 02/11/21 at 11:15 Sodium Chloride 90 meq/Potassium Chloride 50 meq/ Potassium Phosphate 13.6 mmol /Magnesium Sulfate 10 meq/ Calcium Gluconate 10 meq/ Multivitamins 5 ml/Zinc/Copper/ Manganese/ Selenium 1 ml/ Total Parenteral Nutrition/Amino Acids/Dextrose 1,512 ml @ 63 mls/hr TPN CONT IV Last administered on 02/11/21at 22:32; Start 02/11/21 at 22:00; Stop 02/12/21 at 21:59; Status DC Furosemide (Lasix) 20 mg 1X ONCE IVP Last administered on 02/11/21at 15:11; Start 02/11/21 at 15:30; Stop 02/11/21 at 15:31; Status DC Furosemide (Lasix) 20 mg 1X ONCE IVP Last administered on 02/11/21at 17:00; Start 02/11/21 at 17:00; Stop 02/11/21 at 17:01; Status DC Midazolam HCl 100 ml @ 1 mls/hr CONT PRN IV SEE PROTOCOL Last administered on 02/13/21at 20:58; Start 02/11/21 at 19:30 Acetaminophen (Tylenol Supp) 650 mg PRN Q6HRS PRN [place] MILD PAIN / TEMP > 100.3'F; Start 02/11/21 at 21:15 Sodium Chloride 80 meq/Potassium Chloride 50 meq/ Potassium Phosphate 13.6 mmol/Magnesium Sulfate 6 meq/ Calcium Gluconate 10 meq/ Multivitamins 5 ml/Zinc/Copper/ Manganese/ Selenium 1 ml/ Total Parenteral Nutrition/Amino Acids/Dextrose 1,512 ml @ 63 mls/hr TPN CONT IV Last administered on 02/12/21at 22:09; Start 02/12/21 at 22:00; Stop 02/13/21 at 21:59; Status DC Furosemide (Lasix) 40 mg 1X ONCE IVP Last administered on 02/12/21at 12:44; Start 02/12/21 at 12:30; Stop 02/12/21 at 12:31; Status DC Insulin Human Lispro (HumaLOG) 0-5 UNITS Q6HRS SQ Last administered on 03/11/21at 01:13; Start 02/12/21 at 12:00 Dextrose (Dextrose 50%-Water Syringe) 12.5 gm PRN Q15MIN PRN IV SEE COMMENTS; Start 02/12/21 at 12:15 Clonidine HCl (Catapres Tts-3) 1 patch WEEKLY TD Last administered on 03/06/21at 09:07; Start 02/13/21 at 11:00 Sodium Chloride 80 meq/Potassium Chloride 50 meq/ Potassium Phosphate 13.6 mmol/Magnesium Sulfate 6 meq/ Calcium Gluconate 10 meq/ Multivitamins 5 ml/Zinc/Copper/ Manganese/ Selenium 1 ml/ Total Parenteral Nutrition/Amino Acids/Dextrose 1,512 ml @ 63 mls/hr TPN CONT IV Last administered on 02/13/21at 21:42; Start 02/13/21 at 22:00; Stop 02/14/21 at 21:59; Status DC Potassium Acetate 50 meq/Potassium Phosphate 13.6 mmol/Magnesium Sulfate 6 meq/ Calcium Gluconate 10 meq/ Multivitamins 5 ml/Zinc/Copper/ Manganese/ Selenium 1 ml/ Total Parenteral Nutrition/Amino Acids/Dextrose 1,512 ml @ 63 mls/hr TPN CONT IV Last administered on 02/14/21at 21:59; Start 02/14/21 at 22:00; Stop 02/15/21 at 21:59; Status DC Insulin Glargine (Lantus Syringe) 10 unit QHS SQ Last administered on 02/15/21at 22:11; Start 02/14/21 at 21:00; Stop 02/16/21 at 12:42; Status DC Hydralazine HCl (Apresoline Inj) 10 mg PRN Q4HRS PRN IVP ELEVATED BP, SEE COMMENTS Last administered on 03/08/21at 11:14; Start 02/14/21 at 16:00 Potassium Acetate 50 meq/Potassium Phosphate 13.6 mmol/Magnesium Sulfate 6 meq/ Calcium Gluconate 10 meq/ Multivitamins 5 ml/Zinc/Copper/ Manganese/ Selenium 1 ml/ Total Parenteral Nutrition/Amino Acids/Dextrose 1,512 ml @ 63 mls/hr TPN CONT IV Last administered on 02/15/21at 22:13; Start 02/15/21 at 22:00; Stop 02/16/21 at 21:59; Status DC Dexmedetomidine HCl 400 mcg/ Sodium Chloride 100 ml @ 0 mls/hr CONT PRN IV PER PROTOCOL Last administered on 03/11/21at 09:04; Start 02/15/21 at 14:15 Sodium Chloride 500 ml @ 500 mls/hr 1X PRN PRN IV SEE COMMENTS; Start 02/15/21 at 14:15 Atropine Sulfate (ATROPINE 0.5mg SYRINGE) 0.5 mg PRN Q5MIN PRN IV SEE COMMENTS; Start 02/15/21 at 14:15 Potassium Acetate 50 meq/Potassium Phosphate 13.6 mmol/Magnesium Sulfate 6 meq/ Calcium Gluconate 10 meq/ Multivitamins 5 ml/Zinc/Copper/ Manganese/ Selenium 1 ml/ Total Parenteral Nutrition/Amino Acids/Dextrose 1,512 ml @ 63 mls/hr TPN CONT IV Last administered on 02/16/21at 22:59; Start 02/16/21 at 22:00; Stop 02/17/21 at 21:59; Status DC Insulin Glargine (Lantus Syringe) 14 unit QHS SQ Last administered on 02/16/21at 21:14; Start 02/16/21 at 21:00; Stop 02/17/21 at 14:15; Status DC Potassium Acetate 50 meq/Potassium Phosphate 13.6 mmol/Magnesium Sulfate 6 meq/ Calcium Gluconate 10 meq/ Multivitamins 5 ml/Zinc/Copper/ Manganese/ Selenium 1 ml/ Total Parenteral Nutrition/Amino Acids/Dextrose 1,512 ml @ 63 mls/hr TPN CONT IV Last administered on 02/17/21at 20:48; Start 02/17/21 at 22:00; Stop 02/18/21 at 21:59; Status DC Dextrose 1,000 ml @ 75 mls/hr [id number] IV Last administered on 02/18/21at 13:51; Start 02/17/21 at 10:30; Stop 02/19/21 at 12:57; Status DC Insulin Glargine (Lantus Syringe) 18 unit QHS SQ Last administered on 02/17/21at 20:46; Start 02/17/21 at 21:00; Stop 02/18/21 at 11:56; Status DC Insulin Glargine (Lantus Syringe) 22 unit QHS SQ Last administered on 02/18/21at 21:00; Start 02/18/21 at 21:00; Stop 02/19/21 at 14:08; Status DC Potassium Acetate 50 meq/Potassium Phosphate 13.6 mmol/Magnesium Sulfate 6 meq/ Calcium Gluconate 10 meq/ Multivitamins 5 ml/Zinc/Copper/ Manganese/ Selenium 1 ml/ Total Parenteral Nutrition/Amino Acids/Dextrose 1,512 ml @ 63 mls/hr TPN CONT IV Last administered on 02/18/21at 21:43; Start 02/18/21 at 22:00; Stop 02/19/21 at 21:59; Status DC Potassium Acetate 50 meq/Potassium Phosphate 13.6 mmol/Magnesium Sulfate 6 meq/ Calcium Gluconate 10 meq/ Multivitamins 5 ml/Zinc/Copper/ Manganese/ Selenium 1 ml/ Total Parenteral Nutrition/Amino Acids/Dextrose 2,040 ml @ 85 mls/hr TPN CONT IV Last administered on 02/19/21at 20:56; Start 02/19/21 at 22:00; Stop 02/20/21 at 21:59; Status DC Insulin Glargine (Lantus Syringe) 25 unit QHS SQ Last administered on 02/20/21at 22:11; Start 02/19/21 at 21:00; Stop 02/21/21 at 10:10; Status DC Acetaminophen (Tylenol) 650 mg PRN Q6HRS PRN [place] MILD PAIN / TEMP > 100.3'F Last administered on 03/08/21at 09:40; Start 02/19/21 at 18:00 Potassium Acetate 50 meq/Potassium Phosphate 13.6 mmol/Magnesium Sulfate 6 meq/ Calcium Gluconate 10 meq/ Multivitamins 5 ml/Zinc/Copper/ Manganese/ Selenium 1 ml/ Total Parenteral Nutrition/Amino Acids/Dextrose 2,040 ml @ 85 mls/hr TPN CONT IV Last administered on 02/20/21at 22:10; Start 02/20/21 at 22:00; Stop 02/21/21 at 21:59; Status DC Insulin Glargine (Lantus Syringe) 27 unit QHS SQ Last administered on 03/01/21at 21:18; Start 02/21/21 at 21:00; Stop 03/02/21 at 13:32; Status DC Magnesium Sulfate 50 ml @ 25 mls/hr 1X ONCE IV Last administered on 02/21/21at 11:30; Start 02/21/21 at 11:00; Stop 02/21/21 at 12:59; Status DC Potassium Acetate 50 meq/Potassium Phosphate 13.6 mmol/Magnesium Sulfate 8 meq/ Calcium Gluconate 10 meq/ Multivitamins 5 ml/Zinc/Copper/ Manganese/ Selenium 1 ml/ Total Parenteral Nutrition/Amino Acids/Dextrose 2,040 ml @ 85 mls/hr TPN CONT IV Last administered on 02/21/21at 21:23; Start 02/21/21 at 22:00; Stop 02/22/21 at 21:59; Status DC Daptomycin 570 mg/ Sodium Chloride 50 ml @ 100 mls/hr Q24H IV Last administered on 02/24/21at 13:10; Start 02/22/21 at 12:00; Stop 02/25/21 at 10:34; Status DC Linezolid/Dextrose 300 ml @ 300 mls/hr Q12HR IV Last administered on 03/02/21at 08:26; Start 02/22/21 at 09:00; Stop 03/02/21 at 08:42; Status DC Potassium Acetate 50 meq/Potassium Phosphate 13.6 mmol/Magnesium Sulfate 8 meq/ Calcium Gluconate 5 meq/ Multivitamins 5 ml/Zinc/Copper/ Manganese/ Selenium 1 m l/ Total Parenteral Nutrition/Amino Acids/Dextrose 2,040 ml @ 85 mls/hr TPN CONT IV Last administered on 02/22/21at 21:32; Start 02/22/21 at 22:00; Stop 02/23/21 at 21:59; Status DC Fentanyl Citrate (Fentanyl 2ml Vial) 25 mcg PRN Q5MIN PRN IVP MILD PAIN 1-3; Start 02/23/21 at 06:00; Stop 02/24/21 at 05:59; Status DC Fentanyl Citrate (Fentanyl 2ml Vial) 50 mcg PRN Q5MIN PRN IVP MODERATE PAIN 4- 6; Start 02/23/21 at 06:00; Stop 02/24/21 at 05:59; Status DC Morphine Sulfate (Morphine Sulfate) 1 mg PRN Q10MIN PRN IVP SEVERE PAIN 7-10; Start 02/23/21 at 06:00; Stop 02/24/21 at 05:59; Status DC Ringer's Solution 1,000 ml @ 30 mls/hr Q24H IV Last administered on 02/23/21at 11:00; Start 02/23/21 at 06:00; Stop 02/23/21 at 17:59; Status DC Hydromorphone HCl (Dilaudid) 0.5 mg PRN Q10MIN PRN IVP SEVERE PAIN 7-10, 2nd CHOICE; Start 02/23/21 at 06:00; Stop 02/24/21 at 05:59; Status DC Prochlorperazine Edisylate (Compazine) 5 mg PACU PRN PRN IVP NAUSEA, MRX1; Start 02/23/21 at 06:00; Stop 02/24/21 at 05:59; Status DC Cellulose (Surgicel Fibrillar 1x2) 1 each STK-MED ONCE .ROUTE ; Start 02/23/21 at 08:23; Stop 02/23/21 at 08:23; Status DC Lidocaine/ Epinephrine (LIDOCAINE 1%-EPI 1:100,000 Multi-Dose) 20 ml STK-MED ONCE .ROUTE Last administered on 02/23/21at 13:33; Start 02/23/21 at 08:23; Stop 02/23/21 at 08:23; Status DC Potassium Acetate 50 meq/Potassium Phosphate 13.6 mmol/Magnesium Sulfate 8 meq/ Calcium Gluconate 5 meq/ Multivitamins 5 ml/Zinc/Copper/ Manganese/ Selenium 1 ml/ Total Parenteral Nutrition/Amino Acids/Dextrose 2,040 ml @ 85 mls/hr TPN CONT IV ; Start 02/23/21 at 22:00; Stop 02/24/21 at 21:59; Status DC Rocuronium [place] (Zemuron) 50 mg STK-MED ONCE .ROUTE ; Start 02/23/21 at 12:13; Stop 02/23/21 at 12:13; Status DC Fentanyl Citrate (Fentanyl 2ml Vial) 100 mcg STK-MED ONCE .ROUTE ; Start 02/23/21 at 12:24; Stop 02/23/21 at 12:24; Status DC Insulin Human Lispro (HumaLOG VIAL for OP,RR ONLY) 0-10 units PRN Q1HR PRN SQ PER PROTOCOL Last administered on 02/23/21at 13:00; Start 02/23/21 at 13:15; Stop 02/24/21 at 13:14; Status DC Rocuronium [place] (Zemuron) 100 mg STK-MED ONCE .ROUTE ; Start 02/23/21 at 13:22; Stop 02/23/21 at 13:23; Status DC Albuterol Sulfate (Ventolin Hfa) 60 puff STK-MED ONCE INH ; Start 02/23/21 at 13:47; Stop 02/23/21 at 13:48; Status DC Sevoflurane (Ultane) 60 ml STK-MED ONCE IH ; Start 02/23/21 at 14:21; Stop 02/23/21 at 14:21; Status DC Potassium Acetate 50 meq/Potassium Phosphate 13.6 mmol/Magnesium Sulfate 8 meq/ Calcium Gluconate 5 meq/ Multivitamins 5 ml/Zinc/Copper/ Manganese/ Selenium 1 ml/ Total Parenteral Nutrition/Amino Acids/Dextrose 2,040 ml @ 85 mls/hr TPN CONT IV ; Start 02/25/21 at 22:00; Stop 02/26/21 at 21:59; Status DC Potassium Acetate 50 meq/Potassium Phosphate 13.6 mmol/Magnesium Sulfate 8 meq/ Calcium Gluconate 5 meq/ Multivitamins 5 ml/Zinc/Copper/ Manganese/ Selenium 1 ml/ Total Parenteral Nutrition/Amino Acids/Dextrose 2,040 ml @ 85 mls/hr TPN CONT IV Last administered on 02/26/21at 21:27; Start 02/26/21 at 22:00; Stop 02/27/21 at 21:59; Status DC Potassium Acetate 50 meq/Potassium Phosphate 13.6 mmol/Magnesium Sulfate 8 meq/ Calcium Gluconate 5 meq/ Multivitamins 5 ml/Zinc/Copper/ Manganese/ Selenium 1 ml/ Total Parenteral Nutrition/Amino Acids/Dextrose 2,040 ml @ 85 mls/hr TPN CONT IV Last administered on 02/27/21at 21:01; Start 02/27/21 at 22:00; Stop 02/28/21 at 21:59; Status DC Potassium Acetate 50 meq/Potassium Phosphate 13.6 mmol/Magnesium Sulfate 8 meq/ Calcium Gluconate 5 meq/ Multivitamins 5 ml/Zinc/Copper/ Manganese/ Selenium 1 ml/ Total Parenteral Nutrition/Amino Acids/Dextrose 2,040 ml @ 85 mls/hr TPN CONT IV Last administered on 02/28/21at 21:44; Start 02/28/21 at 22:00; Stop 03/01/21 at 21:59; Status DC Potassium Acetate 50 meq/Potassium Phosphate 13.6 mmol/Magnesium Sulfate 8 meq/ Calcium Gluconate 5 meq/ Multivitamins 5 ml/Zinc/Copper/ Manganese/ Selenium 1 ml/ Total Parenteral Nutrition/Amino Acids/Dextrose 2,040 ml @ 85 mls/hr TPN CONT IV Last administered on 03/01/21at 21:22; Start 03/01/21 at 22:00; Stop 03/02/21 at 21:59; Status DC Potassium Acetate 50 meq/Potassium Phosphate 13.6 mmol/Magnesium Sulfate 8 meq/ Multivitamins 5 ml/Zinc/Copper/ Manganese/ Selenium 1 ml/ Total Parenteral Nutrition/Amino Acids/Dextrose 2,040 ml @ 85 mls/hr TPN CONT IV Last adminis tered on 03/02/21at 21:11; Start 03/02/21 at 22:00; Stop 03/03/21 at 21:59; Status DC Insulin Glargine (Lantus Syringe) 35 unit QHS SQ Last administered on 03/10/21at 21:30; Start 03/02/21 at 21:00 Potassium Acetate 50 meq/Potassium Phosphate 13.6 mmol/Magnesium Sulfate 8 meq/ Multivitamins 5 ml/Zinc/Copper/ Manganese/ Selenium 1 ml/ Total Parenteral Nutrition/Amino Acids/Dextrose 1,800 ml @ 75 mls/hr TPN CONT IV Last administered on 03/03/21at 21:54; Start 03/03/21 at 22:00; Stop 03/04/21 at 21:59; Status DC Docusate Sodium (Colace Solution) 100 mg DAILY PO Last administered on 03/11/21at 08:21; Start 03/03/21 at 10:00 Polyethylene Glycol (miraLAX PACKET) 17 gm DAILY PO Last administered on 03/11/21at 08:20; Start 03/03/21 at 10:00 Potassium Acetate 40 meq/Potassium Phosphate 13.6 mmol/Magnesium Sulfate 10 meq/ Multivitamins 5 ml/Zinc/Copper/ Manganese/ Selenium 1 ml/ Total Parenteral Nutrition/Amino Acids/Dextrose 1,800 ml @ 75 mls/hr TPN CONT IV Last administered on 03/04/21at 22:16; Start 03/04/21 at 22:00; Stop 03/05/21 at 21:59; Status DC Linezolid/Dextrose 300 ml @ 300 mls/hr Q12HR IV Last administered on 03/07/21at 08:53; Start 03/05/21 at 09:00; Stop 03/07/21 at 09:45; Status DC Magnesium Sulfate 50 ml @ 25 mls/hr 1X ONCE IV Last administered on 03/05/21at 13:31; Start 03/05/21 at 14:00; Stop 03/05/21 at 15:59; Status DC Sodium Chloride 40 meq/Potassium Acetate 40 meq/ Potassium Phosphate 13.6 mmol/Magnesium Sulfate 10 meq/ Multivitamins 5 ml/Zinc/Copper/ Manganese/ Selenium 1 ml/ Total Parenteral Nutrition/Amino Acids/Dextrose 1,800 ml @ 75 mls/hr TPN CONT IV Last administered on 03/05/21at 21:20; Start 03/05/21 at 22:00; Stop 03/06/21 at 21:59; Status DC Sodium Chloride 40 meq/Potassium Acetate 40 meq/ Potassium Phosphate 13.6 mmol/Magnesium Sulfate 10 meq/ Multivitamins 5 ml/Zinc/Copper/ Manganese/ Selenium 1 ml/ Total Parenteral Nutrition/Amino Acids/Dextrose 1,800 ml @ 75 mls/hr TPN CONT IV Last administered on 03/06/21at 21:35; Start 03/06/21 at 22:00; Stop 03/07/21 at 21:59; Status DC Vecuronium [place] (Norcuron Bolus) 10 mg STK-MED ONCE IV ; Start 03/07/21 at 11:15; Stop 03/07/21 at 11:16; Status DC Vecuronium [place] (Norcuron Bolus) 10 mg 1X ONCE IV Last administered on 03/07/21at 11:59; Start 03/07/21 at 11:30; Stop 03/07/21 at 12:00; Status DC Sodium Chloride 40 meq/Potassium Acetate 40 meq/ Potassium Phosphate 13.6 mmol/Magnesium Sulfate 10 meq/ Multivitamins 5 ml/Zinc/Copper/ Manganese/ Selenium 1 ml/ Total Parenteral Nutrition/Amino Acids/Dextrose 1,800 ml @ 75 mls/hr TPN CONT IV Last administered on 03/07/21at 21:41; Start 03/07/21 at 22:00; Stop 03/08/21 at 21:59; Status DC Sodium Chloride 40 meq/Potassium Acetate 40 meq/ Potassium Phosphate 13.6 mmol/Magnesium Sulfate 10 meq/ Multivitamins 5 ml/Zinc/Copper/ Manganese/ Selenium 1 ml/ Total Parenteral Nutrition/Amino Acids/Dextrose 1,560 ml @ 65 mls/hr TPN CONT IV Last administered on 03/08/21at 22:01; Start 03/08/21 at 22:00; Stop 03/09/21 at 21:59; Status DC Sodium Chloride 40 meq/Potassium Acetate 40 meq/ Potassium Phosphate 13.6 mmol/Magnesium Sulfate 10 meq/ Multivitamins 5 ml/Zinc/Copper/ Manganese/ Selenium 1 ml/ Total Parenteral Nutrition/Amino Acids/Dextrose 1,560 ml @ 65 mls/hr TPN CONT IV Last administered on 03/09/21at 22:33; Start 03/09/21 at 22:00; Stop 03/10/21 at 21:59; Status DC Sodium Chloride 40 meq/Potassium Acetate 40 meq/ Magnesium Sulfate 10 meq/ Multivitamins 5 ml/Zinc/Copper/ Manganese/ Selenium 1 ml/ Total Parenteral Nutrition/Amino Acids/Dextrose 1,560 ml @ 65 mls/hr TPN CONT IV Last administered on 03/10/21at 21:57; Start 03/10/21 at 22:00; Stop 03/11/21 at 21:59 Vitals/I & O Vital Sign - Last 24 Hours 03/10/21 03/10/21 03/10/21 03/10/21 11:00 11:03 11:36 11:53 Pulse 61 Resp 16 16 16 B/P (MAP) 131/82 (98) Pulse Ox 95 96 97 O2 Delivery Ventilator Ventilator Ventilator Mechanical Ventilator 03/10/21 03/10/21 03/10/21 03/10/21 11:54 12:00 13:00 13:53 Temp 97.7 97.7 Pulse 67 62 Resp 16 16 B/P (MAP) 97/62 (74) 110/64 (79) Pulse Ox 96 98 98 98 O2 Delivery Ventilator Ventilator Ventilator Ventilator 03/10/21 03/10/21 03/10/21 03/10/21 14:00 15:00 15:44 15:45 Pulse 62 67 Resp 16 16 B/P (MAP) 106/62 (77) 104/71 (82) Pulse Ox 99 96 97 O2 Delivery Ventilator Ventilator Ventilator Mechanical Ventilator 03/10/21 03/10/21 03/10/21 03/10/21 16:00 17:00 17:37 18:00 Temp 97.5 97.5 Pulse 67 62 60 Resp 16 16 16 B/P (MAP) 92/57 (69) 90/61 (71) 95/56 (69) Pulse Ox 97 97 99 97 O2 Delivery Ventilator Ventilator Ventilator Ventilator 03/10/21 03/10/21 03/10/21 03/10/21 19:00 20:00 20:00 20:53 Temp 98.1 98.1 Pulse 70 68 Resp 16 16 B/P (MAP) 111/68 (82) 153/79 (103) Pulse Ox 98 97 95 O2 Delivery Ventilator Ventilator Mechanical Ventilator Ventilator 03/10/21 03/10/21 03/10/21 03/11/21 21:00 22:00 23:00 00:00 Pulse 74 76 72 Resp 16 16 16 B/P (MAP) 158/85 (109) 110/74 (86) 120/73 (89) Pulse Ox 95 97 99 O2 Delivery Ventilator Ventilator Ventilator Mechanical Ventilator 03/11/21 03/11/21 03/11/21 03/11/21 00:12 00:25 01:00 02:00 Temp 98.5 98.5 Pulse 74 66 64 Resp 16 16 16 B/P (MAP) 125/71 (89) 104/64 (77) 101/61 (74) Pulse Ox 99 95 99 99 O2 Delivery Ventilator Ventilator Ventilator Ventilator 03/11/21 03/11/21 03/11/21 03/11/21 03:00 03:45 04:00 04:00 Temp 98.1 98.1 Pulse 60 58 Resp 16 16 B/P (MAP) 103/63 (76) 109/67 (81) Pulse Ox 98 95 99 O2 Delivery Ventilator Ventilator Ventilator Mechanical Ventilator 03/11/21 03/11/21 03/11/21 03/11/21 05:02 06:00 07:00 08:00 Pulse 54 60 58 Resp 16 16 16 B/P (MAP) 113/71 (85) 120/73 (89) 144/86 (105) Pulse Ox 99 100 99 O2 Delivery Ventilator Ventilator Ventilator Mechanical Ventilator 03/11/21 03/11/21 03/11/21 03/11/21 08:00 08:40 09:00 09:06 Temp 97.9 97.9 Pulse 62 66 Resp 16 16 16 B/P (MAP) 153/80 (104) 133/72 (92) Pulse Ox 99 99 99 96 O2 Delivery Ventilator Ventilator Ventilator Ventilator 03/11/21 03/11/21 09:36 10:07 Resp 16 Pulse Ox 96 99 O2 Delivery Ventilator Ventilator Intake and Output 03/10/21 03/10/21 03/11/21 15:00 23:00 07:00 Intake Total 1148.79 ml 0 ml Output Total 625 ml 870 ml 1150 ml Balance -625 ml 278.79 ml -1150 ml Justicifation of Admission Dx: Justifications for Admission: Justification of Admission Dx: Yes Acute Hemorrhagic Stroke: Acute Hemorrhagic Stroke LESLI ALCOCER MD Mar 11, 2021 10:16
[2021-03-11] MEDS: TPN PER PHARMACY MC PRN (10:54)
[2021-03-11] MEDS: INSULIN GLARGINE SYRINGE. SQ SCH (21:50)
[2021-03-11] MEDS ORDERED: TOTAL PARENTERAL NUTRITION IV SCH (22:00)
[2021-03-11] MEDS ORDERED: AMINO ACID IV SCH (22:00)
[2021-03-11] MEDS ORDERED: [UNRECOGNIZED DRUG - OTHER] IV SCH (22:00)
[2021-03-11] MEDS ORDERED: DEXTROSE 70% IV SCH (22:00)
[2021-03-12] VITALS (10 sets, daily range): BP systolic 102–150; BP diastolic 70–81
[2021-03-12] MEDS: DEXMEDETOMIDINE 400 MCG in IV NORMAL SALINE 100ML 96 ML IV PRN ×3 (02:26→13:55)
[2021-03-12] MEDS: PROPOFOL 100 ML IV PRN ×3 (05:08→14:37)
[2021-03-12] MEDS: INSULIN LISPRO 300 UNITS/3 ML VIAL. SQ SCH ×2 (07:02→12:00)
[2021-03-12] MEDS: PANTOPRAZOLE IV PUSH 40 MG VIAL. IVP SCH (07:30)
[2021-03-12] MEDS: POLYETHYLENE GLYCOL 3350 17 GM PACKET. PO SCH (08:14)
[2021-03-12] MEDS: DOCUSATE 100 MG/10 ML SOLUTION. PO SCH (08:14)
[2021-03-12] MEDS: fentaNYL HIGH DOSE PCA 55 ML IV PRN (08:16)
--- NOTE | 2021-03-12 10:09 | PDOC ---
PULMONARY PROGRESS NOTES DATE: 03/12/21 TIME: 10:08 Subjective Patient remains on vent support 40% and PEEP of 5 Patient is sedated on propofol/Precedex and fentanyl No overnight concerns from nursing Vitals Vital Signs Date Time Temp Pulse Resp B/P (MAP) Pulse Ox O2 Delivery O2 Flow Rate FiO2 03/12/21 09:42 97 Ventilator 03/12/21 09:00 50 16 113/77 (89) 03/12/21 07:00 97.5 97.5 Comments ros unable to obtain intubated on vent Lungs: Clear Cardiovascular: S1, S2 Abdomen: Soft, Non-tender Extremities: No Edema Skin: Warm Labs Laboratory Tests Test 03/10/21 11:34 03/10/21 17:22 03/10/21 21:28 03/11/21 01:11 Glucose (Fingerstick) 170 mg/dL (70-99) 163 mg/dL (70-99) 149 mg/dL (70-99) 184 mg/dL (70-99) Test 03/11/21 06:20 03/11/21 07:27 03/11/21 11:31 03/11/21 17:10 White Blood Count 6.3 x10^3/uL (4.0-11.0) Red Blood Count 3.48 x10^6/uL (4.30-5.70) Hemoglobin 10.5 g/dL (13.0-17.5) Hematocrit 31.4 % (39.0-53.0) Mean Corpuscular Volume 90 fL (79-100) Mean Corpuscular Hemoglobin 30 pg (25-35) Mean Corpuscular Hemoglobin Concent 33 g/dL (31-37) Red Cell Distribution Width 13.5 % (11.5-14.5) Platelet Count 172 x10^3/uL (140-400) Neutrophils (%) (Auto) 57 % (31-73) Lymphocytes (%) (Auto) 28 % (24-48) Monocytes (%) (Auto) 10 % (0-9) Eosinophils (%) (Auto) 4 % (0-3) Basophils (%) (Auto) 1 % (0-3) Neutrophils # (Auto) 3.6 x10^3/uL (1.8-7.7) Lymphocytes # (Auto) 1.7 x10^3/uL (1.0-4.8) Monocytes # (Auto) 0.6 x10^3/uL (0.0-1.1) Eosinophils # (Auto) 0.2 x10^3/uL (0.0-0.7) Basophils # (Auto) 0.1 x10^3/uL (0.0-0.2) Sodium Level 135 mmol/L (136-145) Potassium Level 4.4 mmol/L (3.5-5.1) Chloride Level 100 mmol/L (98-107) Carbon Dioxide Level 30 mmol/L (21-32) Anion Gap 5 (6-14) Blood Urea Nitrogen 26 mg/dL (8-26) Creatinine 0.9 mg/dL (0.7-1.3) Estimated GFR (Cockcroft-Gault) 104.2 Glucose Level 126 mg/dL (70-99) Calcium Level 9.4 mg/dL (8.5-10.1) Phosphorus Level 5.5 mg/dL (2.6-4.7) Magnesium Level 1.8 mg/dL (1.8-2.4) Glucose (Fingerstick) 142 mg/dL (70-99) 194 mg/dL (70-99) 156 mg/dL (70-99) Test 03/11/21 21:47 03/12/21 06:45 Glucose (Fingerstick) 172 mg/dL (70-99) 160 mg/dL (70-99) Laboratory Tests Test 03/11/21 11:31 03/11/21 17:10 03/11/21 21:47 03/12/21 06:45 Glucose (Fingerstick) 194 mg/dL (70-99) 156 mg/dL (70-99) 172 mg/dL (70-99) 160 mg/dL (70-99) Comments CXR 02/21/21 IMPRESSION: 1. Stable life support devices. 2. Improving bibasilar opacities.. CXR 02/18/21 IMPRESSION: Unchanged bibasilar opacities. Recommend follow-up to ensure resolution, particularly of focal opacities in the right lung base. CXR 02/17/21 IMPRESSION: 1. Stable life support devices. 2. Stable bibasilar opacities. 3. Stable small left pleural effusion. IMPRESSION: Chest x-ray 02/13 1. Stable support lines and tubes. 2. Severe right upper lobe predominant bullous emphysema. 3. Stable right perihilar linear atelectasis or infiltrate superimposed on diffuse interstitial prominence and small pleural effusions. Impression . IMPRESSION: 1. Acute hypoxic respiratory failure multifactorial, predominantly to intraparenchymal cerebral hematoma. Status post tracheostomy 02/[address] reveals evidence of a new moderate-sized stroke of frontal lobe, per neurology. Most recent head CT shows left hemispheric strokes, with hemorrhagic transformation, thus he has had bilateral severe brain insults 3. Long history of tobaccoism. CT angiogram showed bullous emphysema in the upper lobes. 3. Acute kidney injury--resolved 4. Leukocytosis--resolved 5. s/p Right occipital craniotomy with evacuation of intracerebral hematoma. 02/09/21 6. Encephalopathy, multifactorial--ongoing 7. Uncontrolled hypertension 8. Fever, per ID--resolved 9. Status post tracheotomy 02/23 CT head 02/13, IMPRESSION: 1. Expected interval evolution of a right posterior temporal/occipital intraparenchymal hematoma status post decompressive craniotomy. 2. Expected evolution of a small amount of subarachnoid and intraventricular clot. DATE OF SURGERY: 02/09/2021 PREOPERATIVE DIAGNOSIS: Right posterior temporoparietal occipital intracerebral hemorrhage with neurologic deterioration. POSTOPERATIVE DIAGNOSIS: Right posterior temporoparietal occipital intracerebral hemorrhage with neurologic deterioration. OPERATION PERFORMED: Right occipital craniotomy with evacuation of intracerebral hematoma. Plan . Updated 03/12/21 Continue current vent support 16/500/40%/PEEP of 5 Continue sedation, patient does not tolerate sedation vacations, poor candidate for weaning Follow CXR/ABG PRN--no changes Follow neuro sx recs-- s/p Right occipital craniotomy with evacuation of intracerebral hematoma 02/09/21-not safe for anticoagulation Continue TPN for nutritional support DVT/GI PPX-- no AC 2/2 intracerebral hematoma D/W RN and RT Pt. is FULL code, with poor prognosis We will try to reach the family to discuss goals of care and advanced directives. I would recommend palliative care Addendum; I have discussed to patient's DPOA and other family members at the bedside. Patient's DPOA showed me his living will which clearly says that he does not want to live on artificial means. At this time family is willing to follow his wishes. They all agreed to proceed with palliative care. Patient will be DNR and will follow palliative care protocol. Critical care time 30 minutes Updated 03/11/21 Continue current vent support 16/500/40%/PEEP of 5 Continue sedation, patient does not tolerate sedation vacations, poor candidate for weaning Follow CXR/ABG PRN--no changes Follow neuro sx recs-- s/p Right occipital craniotomy with evacuation of intracerebral hematoma 02/09/21-not safe for anticoagulation Continue TPN for nutritional support DVT/GI PPX-- no AC 2/2 intracerebral hematoma D/W RN and RT Pt. is FULL code, with poor prognosis Social work for DC planning to LTACH? Updated 03/10/21 Continue current vent support 16/500/40 percent/PEEP of 5 Continue sedation, patient is not an optimal candidate for weaning Follow CXR/ABG PRN--no changes Follow ID recs for ABX--remains off antibiotics, ID has signed off the case Follow neuro sx recs-- s/p Right occipital craniotomy with evacuation of intracerebral hematoma 02/09/21-not safe for anticoagulation Hypertension Per PCP Continue TPN for nutritional support DVT/GI PPX-- no AC 2/2 intracerebral hematoma D/W RN and RT Pt. is FULL code, with poor prognosis Awaiting some family members to arrive next week to discuss goals of care Updated 03/09/21 This morning patient was noted to have paradoxical breathing while on pressure support mode. Patient will be placed back on assist control mode. We will restart sedation. Not an optimal candidate for weaning. Patient did not tolerate T shield yesterday as well, patient does not tolerate reduction of sedation increased respiratory rate and increased blood pressure. Follow CXR/ABG PRN--no changes Follow ID recs for ABX--remains off antibiotics Follow neuro sx recs-- s/p Right occipital craniotomy with evacuation of intracerebral hematoma 02/09/21-not safe for anticoagulation Hypertension Per PCP Continue TPN for nutritional support DVT/GI PPX-- no AC 2/2 intracerebral hematoma D/W RN and RT Pt. is FULL code, with poor prognosis . Family is coming in next week. Will discuss advance directives again. Critical care time 30 minutes RAJIV HORNE MD Mar 12, 2021 10:09
[2021-03-12] MEDS ORDERED: GLYCOPYRROLATE 1 MG/5 ML VIAL. IV PRN (10:30)
[2021-03-12] MEDS ORDERED: MORPHINE SULFATE 4 MG/ML INJ. IV PRN (10:30)
[2021-03-12] MEDS ORDERED: MORPHINE SULFATE 10 MG/ML VIAL. IV ONE (10:30)
[2021-03-12] MEDS ORDERED: MORPHINE SULFATE 2 MG/ML INJ. IVP PRN ×2 (10:30→17:00)
--- NOTE | 2021-03-12 10:32 | PDOC ---
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 There is fairly stable surrounding edema and effacement of the posterior right lateral ventricle, favoring hemorrhagic transformation of a subacute infarction. Stable suspected hemorrhagic infarction within the left frontal lobe and stable small amount of acute subarachnoid hemorrhage along the cerebral convexities. There is also a stable small amount of intraventricular hemorrhage. There is no convincing obstructive hydrocephalus. remains on vent PS 10 and 40% Patient seen and examined in the ICU Interval development of a left frontal hypodensity concerning for subacute infarct. intubated but on spontaneous respirations 10 of pressure support with 40% FiO2 TPN hanging Moore to bedside drainage Sedated with propofol fentanyl and Dex Discussed with RN Chart reviewed remains critically ill Discontinue antibiotics 8- 36 min cc time 03/11/2021 Eyes open spontaneously in response to visual threat did not tolerate T shield 8-04 Slight interval decrease in the attenuation of an acute to subacute intraparenchymal hemorrhage centered within the posterior right cerebral hemisphere due to evolving blood products. There is fairly stable surrounding edema and effacement of the posterior right lateral ventricle, favoring hemorrhagic transformation of a subacute infarction. Stable suspected hemorrhagic infarction within the left frontal lobe and stable small amount of acute subarachnoid hemorrhage along the cerebral convexities. There is also a stable small amount of intraventricular hemorrhage. There is no convincing obstructive hydrocephalus. remains on vent PS 10 and 40% family wants all measures and transfer to long-term acute care.// will need a tracheostomy and PEG Patient seen and examined in the ICU Interval development of a left frontal hypodensity concerning for subacute infarct. intubated but on spontaneous respirations 10 of pressure support with 40% FiO2 TPN hanging Moore to bedside drainage Sedated with propofol fentanyl and Dex Discussed with RN Chart reviewed remains critically ill Discontinue antibiotics 8- 33 min cc time STATUS: ADM IN LOCATION: 1 [facility] 03-07 PREOPERATIVE DIAGNOSIS: Prolonged intubation and prolonged need for ventilatory support. POSTOPERATIVE DIAGNOSIS: Prolonged intubation and prolonged need for ventilatory support. PROCEDURE PERFORMED: Tracheostomy. 03/10/2021 Eyes open spontaneously in response to visual threat did not tolerate T shield 03-08 Slight interval decrease in the attenuation of an acute to subacute intraparenchymal hemorrhage centered within the posterior right cerebral hemisphere due to evolving blood products. There is fairly stable surrounding edema and effacement of the posterior right lateral ventricle, favoring hemor rhagic transformation of a subacute infarction. Stable suspected hemorrhagic infarction within the left frontal lobe and stable small amount of acute subarachnoid hemorrhage along the cerebral convexities. There is also a stable small amount of intraventricular hemorrhage. There is no convincing obstructive hydrocephalus. remains on vent PS 10 and 40% family wants all measures and transfer to long-term acute care.// will need a tracheostomy and PEG Patient seen and examined in the ICU Interval development of a left frontal hypodensity concerning for subacute infarct. intubated but on spontaneous respirations 10 of pressure support with 40% FiO2 TPN hanging Moore to bedside drainage Sedated with propofol fentanyl and Dex Discussed with RN Chart reviewed remains critically ill Discontinue antibiotics 03-07 33 min cc time STATUS: ADM IN LOCATION: 1 [facility] 03-07 PREOPERATIVE DIAGNOSIS: Prolonged intubation and prolonged need for ventilatory support. POSTOPERATIVE DIAGNOSIS: Prolonged intubation and prolonged need for ventilatory support. PROCEDURE PERFORMED: Tracheostomy. SURGEON: Melony Avelar MD GOLF CART REPAIRER: LORNA Santacruz ANESTHESIA: General endotracheal anesthesia. INDICATIONS FOR SURGERY: The patient is a 61-year-old male admitted to the hospital on 02/09/2021 after suffering a stroke. The patient underwent right occipital craniotomy with evacuation of intracerebral hematoma on 02/09/2021 and he has continued to not awaken from anesthesia since that time. Due to prolonged need for ventilatory support, the decision was made for the patient to undergo a tracheostomy. After the risks, benefits and alternatives of surgery were discussed with the patient's family, an informed consent was obtained. 03/08/2021 Slight interval decrease in the attenuation of an acute to subacute intraparenchymal hemorrhage centered within the posterior right cerebral hemisphere due to evolving blood products. There is fairly stable surrounding edema and effacement of the posterior right lateral ventricle, favoring hemorrhagic transformation of a subacute infarction. Stable suspected hemorrhagic infarction within the left frontal lobe and stable small amount of acute subarachnoid hemorrhage along the cerebral convexities. There is also a stable small amount of intraventricular hemorrhage. There is no convincing obstructive hydrocephalus. remains on vent PS 10 and 40% family wants all measures and transfer to long-term acute care.// will need a tracheostomy and PEG Patient seen and examined in the ICU Interval development of a left frontal hypodensity concerning for subacute infarct. intubated but on spontaneous respirations 10 of pressure support with 40% FiO2 TPN hanging Moore to bedside drainage Sedated with propofol fentanyl and Dex Discussed with RN Chart reviewed remains critically ill Discontinue antibiotics 8- 32 min cc time STATUS: ADM IN LOCATION: 1 [facility] 03-07 PREOPERATIVE DIAGNOSIS: Prolonged intubation and prolonged need for ventilatory support. POSTOPERATIVE DIAGNOSIS: Prolonged intubation and prolonged need for ventilatory support. PROCEDURE PERFORMED: Tracheostomy. SURGEON: Melony Avelar MD GOLF CART REPAIRER: LORNA Santacruz 03/09/2021 did not tolerate T shield 8-04 Slight interval decrease in the attenuation of an acute to subacute intraparenchymal hemorrhage centered within the posterior right cerebral hemisphere due to evolving blood products. There is fairly stable surrounding edema and effacement of the posterior right lateral ventricle, favoring hemorrhagic transformation of a subacute infarction. Stable suspected hemorrhagic infarction within the left frontal lobe and stable small amount of acute subarachnoid hemorrhage along the cerebral convexities. There is also a stable small amount of intraventricular hemorrhage. There is no convincing obstructive hydrocephalus. remains on vent PS 10 and 40% family wants all measures and transfer to long-term acute care.// will need a tracheostomy and PEG Patient seen and examined in the ICU Interval development of a left frontal hypodensity concerning for subacute infarct. intubated but on spontaneous respirations 10 of pressure support with 40% FiO2 TPN hanging Moore to bedside drainage Sedated with propofol fentanyl and Dex Discussed with RN Chart reviewed remains critically ill Discontinue antibiotics 03-07 34 min cc time STATUS: ADM IN LOCATION: [address] [place] [address] 03-07 PREOPERATIVE DIAGNOSIS: Prolonged intubation and prolonged need for ventilatory support. POSTOPERATIVE DIAGNOSIS: Prolonged intubation and prolonged need for ventilatory support. PROCEDURE PERFORMED: Tracheostomy. SURGEON: Melony Avelar MD GOLF CART REPAIRER: LORNA Santacruz ANESTHESIA: General endotracheal anesthesia. INDICATIONS FOR SURGERY: The patient is a 61-year-old male admitted to the hospital on 02/09/2021 after suffering a stroke. The patient underwent right occipital craniotomy with evacuation of intracerebral hematoma on 02/09/2021 and he has continued to not awaken from anesthesia since that time. Due to prolonged need for ventilatory support, the decision was made for the patient to undergo a tracheostomy. After the risks, benefits and alternatives of surgery were discussed with the patient's family, an informed consent was obtained. 03/08/2021 Slight interval decrease in the attenuation of an acute to subacute intraparenchymal hemorrhage centered within the posterior right cerebral hemisphere due to evolving blood products. There is fairly stable surrounding edema and effacement of the posterior right lateral ventricle, favoring hemorrhagic transformation of a subacute infarction. Stable suspected hemorrhagic infarction within the left frontal lobe and stable small amount of acute subarachnoid hemorrhage along the cerebral convexities. There is also a stable small amount of intraventricular hemorrhage. There is no convincing obstructive hydrocephalus. remains on vent PS 10 and 40% family wants all measures and transfer to long-term acute care.// will need a t racheostomy and PEG Patient seen and examined in the ICU Interval development of a left frontal hypodensity concerning for subacute infarct. intubated but on spontaneous respirations 10 of pressure support with 40% FiO2 TPN hanging Moore to bedside drainage Sedated with propofol fentanyl and Dex Discussed with RN Chart reviewed remains critically ill Discontinue antibiotics 03-07 32 min cc time STATUS: ADM IN LOCATION: [address] [place] [address] 03-07 PREOPERATIVE DIAGNOSIS: Prolonged intubation and prolonged need for ventilatory support. POSTOPERATIVE DIAGNOSIS: Prolonged intubation and prolonged need for ventilatory support. PROCEDURE PERFORMED: Tracheostomy. SURGEON: Melony Avelar MD GOLF CART REPAIRER: LORNA Santacruz ANESTHESIA: General endotracheal anesthesia. INDICATIONS FOR SURGERY: The patient is a 61-year-old male admitted to the hospital on 02/09/2021 after suffering a stroke. The patient underwent right occipital craniotomy with evacuation of intracerebral hematoma on 02/09/2021 and he has continued to not awaken from anesthesia since that time. Due to prolonged need for ventilatory support, the decision was made for the patient to undergo a tracheostomy. After the risks, benefits and alternatives of surgery were discussed with the patient's family, an informed consent was obtained. 03/07/2021 Slight interval decrease in the attenuation of an acute to subacute intraparenchymal hemorrhage centered within the posterior right cerebral hemisphere due to evolving blood products. There is fairly stable surrounding edema and effacement of the posterior right lateral ventricle, favoring hemorrhagic transformation of a subacute infarction. Stable suspected hemorrhagic infarction within the left frontal lobe and stable small amount of acute subarachnoid hemorrhage along the cerebral convexities. There is also a stable small amount of intraventricular hemorrhage. There is no convincing obstructive hydrocephalus. remains on vent PS 10 and 40% family wants all measures and transfer to long-term acute care.// will need a tracheostomy and PEG Patient seen and examined in the ICU Interval development of a left frontal hypodensity concerning for subacute infarct. intubated but on spontaneous respirations 10 of pressure support with 40% FiO2 TPN hanging Moore to bedside drainage Sedated with propofol fentanyl and Dex Discussed with RN Chart reviewed remains critically ill Discontinue antibiotics 03-07 33 min cc time 03/06/2021 family wants all measures and transfer to long-term acute care.// will need a tracheostomy and PEG Patient seen and examined in the ICU Interval development of a left frontal hypodensity concerning for subacute infarct. intubated but on spontaneous respirations 10 of pressure support with 40% FiO2 considering starting OG feeds but still currently has TPN hanging Moore to bedside drainage Sedated with propofol fentanyl and Dex Discussed with RN Chart reviewed remains critically ill 33 min cc time 03/05/2021 Patient seen and examined in the ICU He is still intubated but on spontaneous respirations 10 of pressure support with 40% FiO2 We are considering starting OG feeds today but still currently has TPN hanging Moore to bedside drainage Sedated with propofol fentanyl and Dex Discussed with RN Chart reviewed He remains critically ill 03/04/2021 Patient seen and examined in the ICU He is currently on spontaneous respirations via tracheostomy with pressure support of 10 Discussed with RN Chart reviewed Patient still has TPN running but we are going to try to change that to OG feeds later today Sedated with fentanyl propofol and Precedex SCDs in place Moore to bedside drainage Remains critically ill 03/03/2021 Patient seen and examined in the ICU He has a clean dry intact tracheostomy Currently on spontaneous respirations with 10 of pressure support 40% FiO2 Discussed with RN Chart reviewed Has TPN hanging Sedated with fentanyl propofol and Precedex OG feeds are to suction SCDs in place Moore to bedside drainage He remains critically ill 03/02/2021 Patient seen and examined in the ICU We just changed him over to spontaneous respirations with 10 of pressure support and 40% FiO2 Discussed with RN and respiratory therapy He has been able to be on spontaneous respirations during the daytime for the past 3 days but we have placed him back on assist-control at nighttime Trach is clean and in tact Has Moore to bedside drainage SCDs in place OG is to suction Has IV TPN Has IV Zyvox Sedated with Precedex and propofol 03/01/2021 Patient seen and examined in the ICU He remains mechanically ventilated AC/16/500/40 5% with 5 of PEEP trach appears clean dry and intact He is a Moore bedside drainage Sedated with fentanyl and propofol Has TPN hanging Discussed with RN Discussed with case management Chart reviewed He remains very critically ill 02/28/2021 Patient seen and examined in the ICU He remains mechanically ventilated Has a tracheostomy in place Vent settings as follows AC/16/500/45/5 of PEEP Has SCDs in place Moore is to bedside drainage Sedated with Precedex fentanyl and propofol Has IV TPN Chart reviewed Discussed with RN He remains critically 02/27/2021 Patient seen and examined in the ICU He remains mechanically ventilated AC/16/500/40 5% with 5 of PEEP Has tracheostomy in place Has TPN running SCDs are in place Moore to bedside drainage Sedated with fentanyl and propofol Discussed with RN Chart reviewed He remains critically 02/26/2021: Low-grade fever overnight (99.6 F). On vent with FiO2 40%, PEEP 5. S/p tracheostomy 02/23. Per RN, some hypertension overnight (systolic BP 203) requiring IV nicardipine, but this has been titrated down and now able to resume as needed hydralazine. Recommend keep nicardipine on standby to maintain blood pressure <150/90 mmHg. Continue TPN but will likely need PEG tube and eventually long-term acute care. Due to low-grade fever, lines are being changed. C ontinue Zosyn and Zyvox, per ID. Critical care time 30 minutes spent reviewing charts, reviewing imaging, reviewing labs, and discussion with RN. 02/25/2021: Remains on vent with FiO2 40%, PEEP 5. Afebrile. Plan for follow-up CT head on Saturday. Continue Zosyn, per ID. Blood glucose well controlled. Critical care time 30 minutes spent reviewing charts, reviewing imaging, review ing labs, and discussion with RN. 02/24/2021: Afebrile. Had tracheostomy performed yesterday. On vent with FiO2 40%, PEEP 5. Continue antibiotics, per ID. Critical care time 30 minutes reviewing labs, reviewing imaging, reviewing charts, discussed with RN. 02/23/2021: Patient remains intubated in ICU, FiO2 40%, PEEP 5. I believe plan is for trach today. Continue daptomycin, Zosyn, and Zyvox, per ID. Critical care time 30 minutes spent reviewing charts, reviewing labs, reviewing imaging, discussion with RN. 02/22/2011: Patient ange intubated in ICU. Febrile today, T-max 100.3. FiO2 40, PEEP 5. Continue treatment with Zosyn, per ID. Continue to wean sedation as tolerated. Plan for trach tomorrow. Critical care time 30 minutes spent reviewing chart, reviewing labs, imaging, and discussion with RN. 02/21/2021: Patient remains intubated in ICU, FiO2 40%, PEEP 5. Afebrile. POD #12, s/p right occipital craniotomy with evacuation of intracerebral hematoma (02/09/21). Chest x-ray today shows improving bibasilar opacities. Continue Zosyn, per ID. Critical care time 30 minutes spent reviewing charts, reviewing labs, reviewing imaging, discussion with RN. 02/20/2021: POD #11 Right occipital craniotomy with evacuation of intracerebral hematoma (02/09/21). Remains sedated on ventilator, FiO2 40%, PEEP 5. Chest x- ray from 02/18 showed unchanged bibasilar opacities; recommending follow-up to ensure resolution, particularly of focal opacities in the right lung base. Continue Zosyn. Continue supportive care. Critical care time 30 minutes spent reviewing charts, reviewing labs, reviewing imaging, discussion with RN. 02/19/2021 POD #11 Right occipital craniotomy with evacuation of intracerebral hematoma sedated on vent Patient seen and examined at bedside Continue antibiotics per infectious disease Weaning ventilator and sedation as tolerated extubation in the next few days Plan of care discussed with bedside nurse Expected interval evolution of a right posterior temporal/occipital intraparenchymal hematoma status post decompressive craniotomy Large right temporo-occipital intraparenchymal bleed, most likely lobar hemorrhage from hypertension, consider venous sinus thrombosis, less likely in this location, aneurysmal bleed, head trauma (also unlikely). craniotomy 7/8 evening Suspect of aspiration, respiratory failure, hypertension, chronic obstructive pulmonary disease, improving acute kidney injury cont Zosyn glucose uncontrolled add Lantus 22 UNITS SQ HS elevated troponin suspect stress induced ischemia 36 MIN CC TIME 02/18/2021 POD #10 Right occipital craniotomy with evacuation of intracerebral hematoma sedated on vent Patient seen and examined at bedside Continue antibiotics per infectious disease Weaning ventilator and sedation as tolerated extubation in the next few days Plan of care discussed with bedside nurse Expected interval evolution of a right posterior temporal/occipital intraparenchymal hematoma status post decompressive craniotomy Large right temporo-occipital intraparenchymal bleed, most likely lobar hemorrhage from hypertension, consider venous sinus thrombosis, less likely in this location, aneurysmal bleed, head trauma (also unlikely). Had craniotomy 7/ evening Suspect of aspiration, respiratory failure, hypertension, chronic obstructive pulmonary disease, improving acute kidney injury cont Zosyn glucose uncontrolled add Lantus 22 UNITS SQ HS 34 MIN CC TIME 02/17/2021 POD #8 Right occipital craniotomy with evacuation of intracerebral hematoma sedated on vent Patient seen and examined at bedside Good response to IV Lasix Continue antibiotics per infectious disease Weaning ventilator and sedation as tolerated extubation in the next few days Plan of care discussed with bedside nurse Expected interval evolution of a right posterior temporal/occipital intraparenchymal hematoma status post decompressive craniotomy Large right temporo-occipital intraparenchymal bleed, most likely lobar hemorrhage from hypertension, consider venous sinus thrombosis, less likely in this location, aneurysmal bleed, head trauma (also unlikely). Had craniotomy 7/8 evening Suspect of aspiration, respiratory failure, hypertension, chronic obstructive pulmonary disease, improving acute kidney injury cont Zosyn glucose uncontrolled add Lantus 18 UNITS SQ HS 33 MIN CC TIME 02/16/2021 POD #7 Right occipital craniotomy with evacuation of intracerebral hematoma sedated on vent Patient seen and examined at bedside Good response to IV Lasix Continue antibiotics per infectious disease Weaning ventilator and sedation as tolerated extubation in the next few days Plan of care discussed with bedside nurse Expected interval evolution of a right posterior temporal/occipital intraparenchymal hematoma status post decompressive craniotomy Large right temporo-occipital intraparenchymal bleed, most likely lobar hemorrhage from hypertension, consider venous sinus thrombosis, less likely in this location, aneurysmal bleed, head trauma (also unlikely). Had craniotomy 7/ evening Suspect of aspiration, respiratory failure, hypertension, chronic obstructive pulmonary disease, improving acute kidney injury cont Zosyn glucose uncontrolled add Lantus 14 UNITS SQ HS 35 MIN CC TIME 02/15/2021 POD #6 Right occipital craniotomy with evacuation of intracerebral hematoma sedated on vent Patient seen and examined at bedside Good response to IV Lasix Continue antibiotics per infectious disease Weaning ventilator and sedation as tolerated Hopeful extubation in the next few days Plan of care discussed with bedside nurse Expected interval evolution of a right posterior temporal/occipital intraparenchymal hematoma status post decompressive craniotomy Large right temporo-occipital intraparenchymal bleed, most likely lobar hemorrhage from hypertension, consider venous sinus thrombosis, less likely in this location, aneurysmal bleed, head trauma (also unlikely). Had craniotomy 7/ evening Suspect of aspiration, respiratory failure, hypertension, chronic obstructive pulmonary disease, improving acute kidney injury cont Zosyn glucose uncontrolled add Lantus 35 MIN CC TIME 02/14/2021 POD #5 Right occipital craniotomy with evacuation of intracerebral hematoma sedated on vent Patient seen and examined at bedside Good response to IV Lasix Continue antibiotics per infectious disease Weaning ventilator and sedation as tolerated Hopeful extubation in the next few days Plan of care discussed with bedside nurse Expected interval evolution of a right posterior temporal/occipital intraparenchymal hematoma status post decompressive craniotomy Large right temporo-occipital intraparenchymal bleed, most likely lobar hemorrhage from hypertension, consider venous sinus thrombosis, less likely in this location, aneurysmal bleed, head trauma (also unlikely). Had craniotomy 7/ evening Suspect of aspiration, respiratory failure, hypertension, chronic obstructive pulmonary disease, improving acute kidney injury cont Zosyn glucose uncontrolled add Lantus 35 MIN CC TIME 02/13/2021 POD #4 Right occipital craniotomy with evacuation of intracerebral hematoma sedated on vent Patient seen and examined at bedside Good response to IV Lasix Continue antibiotics per infectious disease Weaning ventilator and sedation as tolerated Hopeful extubation in the next few days Plan of care discussed with bedside nurse Expected interval evolution of a right posterior temporal/occipital intraparenchymal hematoma status post decompressive craniotomy Large right temporo-occipital intraparenchymal bleed, most likely lobar hemorrhage from hypertension, consider venous sinus thrombosis, less likely in this location, aneurysmal bleed, head trauma (also unlikely). Had craniotomy 02/09 evening Suspect of aspiration, respiratory failure, hypertension, chronic obstructive pulmonary disease, improving acute kidney injury cont Zosyn 35 MIN CC TIME 02/12/2021 Patient seen and examined at bedside Remains intubated and sedated Good response to IV Lasix yesterday had nearly 3 L out; will diurese again today Continue antibiotics per infectious disease Weaning ventilator and sedation as tolerated Hopeful extubation in the next few days Plan of care discussed with bedside nurse 02/11/2021 Patient seen and examined at bedside No major clinical changes overnight however this morning patient has largely inc reased amount of secretions Chest x-ray concerning for possible pneumonia, will consult ID who recommended starting Zosyn Otherwise he remains intubated and sedated We will follow subspecialist input Plan discussed with bedside RN 02/10/2021 Patient seen and examined at bedside Underwent craniotomy yesterday due to unresponsiveness in the late afternoon; was also intubated Continues to have a poor neurologic status Neurology and neurosurgery following Discussed plan of care with bedside nurse Patient is a 61-year-old male transferred for to the ICU overnight due to hypertensive emergency and intracranial hemorrhage. Patient's mother at bedside provides most the history. She reports that patient had been in his usual state of health until yesterday morning when he reported feeling tired and having a headache. Patient mother reports he normally gets up early and goes outside however this was not the case yesterday. With this headache he took BC powder and went back to bed. Patient's mother reports that he was in and out of bed throughout most of the afternoon. Says patient did not eat anything yesterday which is very unusual for him. Approximately 1130 last night she had the patient get up to go to the bathroom and heard him fall. He however is able to get up and returned to bed; unknown if he hit his head at this time. Patient again woke up around 2 AM and woke up his mother asking for orange juice and then proceeded to fall again, she does not think he hit his head at this time. He was taken to hospital and found to have a systolic blood pressure greater than [address] scan found to have an intracranial hemorrhage. Due to severity of his condition he was transferred here. Patient's mother reports she is not aware of any past medical history other than hypertension which he intermittently takes hydrochlorothiazide for. Vitals Vitals Vital Signs Date Time Temp Pulse Resp B/P (MAP) Pulse Ox O2 Delivery O2 Flow Rate FiO2 03/12/21 09:42 97 Ventilator 03/12/21 09:00 50 16 113/77 (89) 03/12/21 07:00 97.5 97.5 Physical Exam Physical Exam GENERAL: Sedated on vent, patient is not following commands HEENT: no icterus,NGT + NECK trach present LUNGS: Decreased breath sound at bases HEART: S1, S2 bradycardia ABDOMEN: Soft, nontender, mildly distended EXTREMITIES: + edema, no cyanosis. SKIN:no gen rash NEUROLOGIC: unable to assess Right IJ taken out RT PICC Line clean General: Other (sedated, on vent) Heart: Regular rate Lungs: Clear Abdomen: Normal bowel sounds Extremities: No clubbing, No cyanosis, No edema Skin: Other (incision healed well) Labs LABS [facility] Accession Number: [id number] . 01 Material submitted: . brain - INTRACRANIAL HEMORRHAGE. Modifiers: INTRACRANIAL . 01 Clinical history: . BRAIN BLEED INTRACRANIAL HEMORRHAGE CRANIOTOMY FOR EVACUATION . 02 Diagnosis: Craniotomy for evacuation of hemorrhage: - Blood coagulum and small segment of white matter, consistent with intracranial hemorrhage. (JPM:suzanne; 02/14/2021) QMS 02/14/2021 1333 Local . 02 Comment: There is no evidence of malignancy. . 02 Electronically signed: . Eitan Araujo MD, Pathologist NPI- [id number] . 01 Gross description: . The specimen is received in formalin, labeled "Joao Lucas Jr., intracranial hemorrhage". Received is a moderate amount of blood coagulum measuring 2.8 x 1.9 x 0.5 cm in aggregate dimensions. The specimen is filtered and entirely submitted in cassette A1. (CAA; 02/12/2021) QAC/QAC 02/12/2021 1328 Local . 02 Pathologist provided ICD-10: I62.00 . 02 CPT . 837723 Specimen Comment: A courtesy copy of this report has been sent to [phone], [phone] Specimen Comment: [phone], Specimen Comment: Report sent to , DR ASH / DR SABA Performed at: 01 [facility] [address] [facility] [facility] [address], [place] [id number] MD Manoj Raymundo MD Phone: [phone] Performed at: 02 [facility] [address] [place], [place] [id number] MD Eitan Araujo MD Phone: [phone] Dictated By: EITAN ARAUJO MD Signed By: EITAN ARAUJO MD Dictated Date/Time:02/09/21 1522 Transcribed Date/Time:02/14/21 160 Press Box Custodian: TL Signed Date/Time:02/14/21 160 cc: MARCUS ASH MD~MTH0 0 Laboratory Tests Test 03/11/21 11:31 03/11/21 17:10 03/11/21 21:47 03/12/21 06:45 Glucose (Fingerstick) 194 mg/dL (70-99) 156 mg/dL (70-99) 172 mg/dL (70-99) 160 mg/dL (70-99) Comment Review of Relevant I have reviewed the following items neela (where applicable) has been applied. Labs Laboratory Tests Test 03/10/21 11:34 03/10/21 17:22 03/10/21 21:28 03/11/21 01:11 Glucose (Fingerstick) 170 mg/dL (70-99) 163 mg/dL (70-99) 149 mg/dL (70-99) 184 mg/dL (70-99) Test 03/11/21 06:20 03/11/21 07:27 03/11/21 11:31 03/11/21 17:10 White Blood Count 6.3 x10^3/uL (4.0-11.0) Red Blood Count 3.48 x10^6/uL (4.30-5.70) Hemoglobin 10.5 g/dL (13.0-17.5) Hematocrit 31.4 % (39.0-53.0) Mean Corpuscular Volume 90 fL (79-100) Mean Corpuscular Hemoglobin 30 pg (25-35) Mean Corpuscular Hemoglobin Concent 33 g/dL (31-37) Red Cell Distribution Width 13.5 % (11.5-14.5) Platelet Count 172 x10^3/uL (140-400) Neutrophils (%) (Auto) 57 % (31-73) Lymphocytes (%) (Auto) 28 % (24-48) Monocytes (%) (Auto) 10 % (0-9) Eosinophils (%) (Auto) 4 % (0-3) Basophils (%) (Auto) 1 % (0-3) Neutrophils # (Auto) 3.6 x10^3/uL (1.8-7.7) Lymphocytes # (Auto) 1.7 x10^3/uL (1.0-4.8) Monocytes # (Auto) 0.6 x10^3/uL (0.0-1.1) Eosinophils # (Auto) 0.2 x10^3/uL (0.0-0.7) Basophils # (Auto) 0.1 x10^3/uL (0.0-0.2) Sodium Level 135 mmol/L (136-145) Potassium Level 4.4 mmol/L (3.5-5.1) Chloride Level 100 mmol/L (98-107) Carbon Dioxide Level 30 mmol/L (21-32) Anion Gap 5 (6-14) Blood Urea Nitrogen 26 mg/dL (8-26) Creatinine 0.9 mg/dL (0.7-1.3) Estimated GFR (Cockcroft-Gault) 104.2 Glucose Level 126 mg/dL (70-99) Calcium Level 9.4 mg/dL (8.5-10.1) Phosphorus Level 5.5 mg/dL (2.6-4.7) Magnesium Level 1.8 mg/dL (1.8-2.4) Glucose (Fingerstick) 142 mg/dL (70-99) 194 mg/dL (70-99) 156 mg/dL (70-99) Test 03/11/21 21:47 03/12/21 06:45 Glucose (Fingerstick) 172 mg/dL (70-99) 160 mg/dL (70-99) Laboratory Tests Test 03/11/21 11:31 03/11/21 17:10 03/11/21 21:47 03/12/21 06:45 Glucose (Fingerstick) 194 mg/dL (70-99) 156 mg/dL (70-99) 172 mg/dL (70-99) 160 mg/dL (70-99) Microbiology 02/23/21 Gram Stain - Final, Complete 02/23/21 Aerobic Culture - Final, Complete 02/22/21 Blood Culture - Final, Complete NO GROWTH AFTER 5 DAYS 02/22/21 Gram Stain Evaluation - Final, Complete 02/22/21 Respiratory Culture - Final, Complete Medications Current Medications Nicardipine HCl 50 mg/Sodium Chloride 250 ml @ 12.5 mls/hr CONT PRN IV SEE I/O RECORD Last administered on 02/26/21at 01:20; Start 02/09/21 at 06:15 Labetalol HCl (Normodyne Iv Push) 10 mg PRN Q2HR PRN IVP HYPERTENSION- 1ST CHOICE Last administered on 03/08/21at 09:05; Start 02/09/21 at 06:15 Lorazepam (Ativan Inj) 2 mg 1X ONCE IVP Last administered on 02/09/21at 10:54; Start 02/09/21 at 10:45; Stop 02/09/21 at 10:46; Status DC Lorazepam (Ativan Inj) 2 mg 1X ONCE IVP Last administered on 02/09/21at 11:00; Start 02/09/21 at 11:00; Stop 02/09/21 at 11:01; Status DC Fentanyl Citrate (Fentanyl 2ml Vial) 25 mcg PRN Q2HR PRN IVP MODERATE TO SEVERE PAIN Last administered on 02/09/21at 13:37; Start 02/09/21 at 13:30; Stop 02/18/21 at 22:53; Status DC Info (Review Meds) 1 ea PRN 1X PRN MC SEE COMMENTS; Start 02/09/21 at 15:00 Acetaminophen (Tylenol Supp) 650 mg PRN Q6HRS PRN MS FEVER > 100.5'F or 38'C; Start 02/09/21 at 15:00; Stop 02/11/21 at 21:12; Status DC Albuterol Sulfate (Ventolin Neb Soln) 2.5 mg PRN Q4HRS PRN NEB SHORTNESS OF BREATH; Start 02/09/21 at 15:15 Iohexol (Omnipaque 350 Mg/ml) 75 ml 1X ONCE IV Last administered on 02/09/21at 15:52; Start 02/09/21 at 15:30; Stop 02/09/21 at 15:35; Status DC Iohexol (Omnipaque 350 Mg/ml) 100 ml STK-MED ONCE .ROUTE ; Start 02/09/21 at 15:26; Stop 02/09/21 at 15:27; Status DC Info (CONTRAST GIVEN -- Rx MONITORING) 1 each PRN DAILY PRN MC SEE COMMENTS; Start 02/09/21 at 15:45; Stop 02/11/21 at 15:44; Status DC Propofol 100 ml @ As Directed STK-MED ONCE IV ; Start 02/09/21 at 15:51; Stop 02/09/21 at 15:51; Status DC Rocuronium Leon (Zemuron) 50 mg STK-MED ONCE .ROUTE ; Start 02/09/21 at 15:51; Stop 02/09/21 at 15:51; Status DC Lidocaine HCl (Lidocaine HCl 2% Abboject) 100 mg STK-MED ONCE .ROUTE ; Start 02/09/21 at 15:52; Stop 02/09/21 at 15:53; Status DC Propofol 100 ml @ 3.507 mls/ hr CONT PRN IV PER PROTOCOL Last administered on 03/12/21at 09:09; Start 02/09/21 at 16:15 Lidocaine HCl (Lidocaine HCl 2% Abboject) 100 mg 1X ONCE IV Last administered on 02/09/21at 16:17; Start 02/09/21 at 16:15; Stop 02/09/21 at 16:17; Status DC Rocuronium Leon (Zemuron) 50 mg 1X ONCE IV Last administered on 02/09/21 16:17; Start 02/09/21 at 16:15; Stop 02/09/21 at 16:17; Status DC Rocuronium Leon (Zemuron) 100 mg STK-MED ONCE .ROUTE ; Start 02/09/21 at 16:31; Stop 02/09/21 at 16:32; Status DC Gelatin (Gelfoam Size 100) 1 each STK-MED ONCE .ROUTE Last administered on 02/09/21 17:49; Start 02/09/21 at 16:33; Stop 02/09/21 at 16:33; Status DC Bupivacaine HCl/ Epinephrine Bitart (Sensorcain-Epi 0.5%-1:660359 Mpf) 30 ml STK-MED ONCE .ROUTE Last administered on 02/09/21 17:49; Start 02/09/21 at 16:33; Stop 02/09/21 at 16:33; Status DC Cellulose (Surgicel Hemostat 4x8) 1 each STK-MED ONCE .ROUTE Last administered on 02/09/21at 18:38; Start 02/09/21 at 16:33; Stop 02/09/21 at 16:33; Status DC Thrombin 20,000 unit STK-MED ONCE TP Last administered on 02/09/21 17:49; Start 02/09/21 at 16:33; Stop 02/09/21 at 16:33; Status DC Fentanyl Citrate (Fentanyl 2ml Vial) 75 mcg 1X ONCE IVP Last administered on 02/09/21at 16:45; Start 02/09/21 at 16:45; Stop 02/09/21 at 16:47; Status DC Propofol (Diprivan) 200 mg 1X ONCE IV ; Start 02/09/21 at 17:15; Stop 02/09/21 at 17:16; Status DC Lidocaine HCl (Lidocaine HCl 2% Abboject) 100 mg 1X ONCE IV ; Start 02/09/21 at 17:15; Stop 02/09/21 at 17:16; Status DC Rocuronium Leon (Zemuron) 50 mg 1X ONCE IV ; Start 02/09/21 at 17:15; Stop 02/09/21 at 17:16; Status DC Propofol 100 ml @ 0 mls/hr CONT PRN PRN IV SEDATION; Start 02/09/21 at 17:15; Stop 02/10/21 at 05:14; Status DC Cefazolin Sodium (Ancef) 1 gm STK-MED ONCE IVP ; Start 02/09/21 at 17:28; Stop 02/09/21 at 17:28; Status DC Fentanyl Citrate (Fentanyl 2ml Vial) 100 mcg STK-MED ONCE .ROUTE ; Start 02/09/21 at 17:43; Stop 02/09/21 at 17:43; Status DC Rocuronium Leon (Zemuron) 100 mg STK-MED ONCE .ROUTE ; Start 02/09/21 at 17:58; Stop 02/09/21 at 17:59; Status DC Vecuronium Leon (Norcuron Bolus) 10 mg STK-MED ONCE IV ; Start 02/09/21 at 18:49; Stop 02/09/21 at 18:50; Status DC Sodium Chloride (SODIUM CHLORIDE 20ml) 20 ml STK-MED ONCE IJ ; Start 02/09/21 at 18:50; Stop 02/09/21 at 18:50; Status DC Sevoflurane (Ultane) 90 ml STK-MED ONCE IH ; Start 02/09/21 at 19:20; Stop 02/09/21 at 19:21; Status DC Fentanyl Citrate 30 ml @ 2.5 mls/hr CONT PRN IV SEE PROTOCOL Last administered on 02/09/21at 23:40; Start 02/09/21 at 23:15; Stop 02/10/21 at 04:43; Status DC Fentanyl Citrate 55 ml @ 0 mls/hr CONT PRN IV SEE I/O Last administered on 03/12/21at 08:16; Start 02/10/21 at 05:00 Potassium Chloride/Dextrose/ Sod Cl 1,000 ml @ 80 mls/hr [id number] IV ; Start 02/10/21 at 09:00; Stop 02/10/21 at 13:21; Status DC Pantoprazole Sodium (PROTONIX VIAL for IV PUSH) 40 mg DAILYAC IVP Last administered on 03/12/21at 07:30; Start 02/10/21 at 09:00 Lidocaine HCl (Buffered Lidocaine 1%) 3 ml STK-MED ONCE .ROUTE ; Start 02/10/21 at 13:18; Stop 02/10/21 at 13:18; Status DC Sodium Chloride 1,000 ml @ 80 mls/hr [id number] IV Last administered on 02/12/21at 03:00; Start 02/10/21 at 13:30; Stop 02/12/21 at 15:36; Status DC Lidocaine HCl (Buffered Lidocaine 1%) 6 ml 1X ONCE INJ Last administered on 02/10/21at 13:57; Start 02/10/21 at 13:45; Stop 02/10/21 at 13:46; Status DC Potassium Chloride/Water 100 ml @ 100 mls/hr Q1H IV Last administered on 02/11/21at 10:07; Start 02/11/21 at 08:00; Stop 02/11/21 at 09:59; Status DC Piperacillin Sod/ Tazobactam Sod 3.375 gm/Sodium Chloride 50 ml @ 100 mls/hr Q6HRS IV Last administered on 03/07/21at 05:35; Start 02/11/21 at 09:00; Stop 03/07/21 at 09:45; Status DC Info (Tpn Per Pharmacy) 1 each PRN DAILY PRN MC SEE COMMENTS Last administered on 03/11/21at 10:54; Start 02/11/21 at 11:15 Sodium Chloride 90 meq/Potassium Chloride 50 meq/ Potassium Phosphate 13.6 mmol/Magnesium Sulfate 10 meq/ Calcium Gluconate 10 meq/ Multivitamins 5 ml/Zinc/Copper/ Manganese/ Selenium 1 ml/ Total Parenteral Nutrition/Amino Acids/Dextrose 1,512 ml @ 63 mls/hr TPN CONT IV Last administered on 02/11/21at 22:32; Start 02/11/21 at 22:00; Stop 02/12/21 at 21:59; Status DC Furosemide (Lasix) 20 mg 1X ONCE IVP Last administered on 02/11/21at 15:11; Start 02/11/21 at 15:30; Stop 02/11/21 at 15:31; Status DC Furosemide (Lasix) 20 mg 1X ONCE IVP Last administered on 02/11/21at 17:00; Start 02/11/21 at 17:00; Stop 02/11/21 at 17:01; Status DC Midazolam HCl 100 ml @ 1 mls/hr CONT PRN IV SEE PROTOCOL Last administered on 02/13/21at 20:58; Start 02/11/21 at 19:30 Acetaminophen (Tylenol Supp) 650 mg PRN Q6HRS PRN MS MILD PAIN / TEMP > 100.3'F; Start 02/11/21 at 21:15 Sodium Chloride 80 meq/Potassium Chloride 50 meq/ Potassium Phosphate 13.6 mmol/Magnesium Sulfate 6 meq/ Calcium Gluconate 10 meq/ Multivitamins 5 ml/Zinc/Copper/ Manganese/ Selenium 1 ml/ Total Parenteral Nutrition/Amino Acids/Dextrose 1,512 ml @ 63 mls/hr TPN CONT IV Last administered on 02/12/21at 22:09; Start 02/12/21 at 22:00; Stop 02/13/21 at 21:59; Status DC Furosemide (Lasix) 40 mg 1X ONCE IVP Last administered on 02/12/21at 12:44; Start 02/12/21 at 12:30; Stop 02/12/21 at 12:31; Status DC Insulin Human Lispro (HumaLOG) 0-5 UNITS Q6HRS SQ Last administered on 03/12/21at 07:02; Start 02/12/21 at 12:00 Dextrose (Dextrose 50%-Water Syringe) 12.5 gm PRN Q15MIN PRN IV SEE COMMENTS; Start 02/12/21 at 12:15 Clonidine HCl (Catapres Tts-3) 1 patch WEEKLY TD Last administered on 03/06/21at 09:07; Start 02/13/21 at 11:00 Sodium Chloride 80 meq/Potassium Chloride 50 meq/ Potassium Phosphate 13.6 mmol/Magnesium Sulfate 6 meq/ Calcium Gluconate 10 meq/ Multivitamins 5 ml/Zinc/Copper/ Manganese/ Selenium 1 ml/ Total Parenteral Nutrition/Amino Acids/Dextrose 1,512 ml @ 63 mls/hr TPN CONT IV Last administered on 02/13/21at 21:42; Start 02/13/21 at 22:00; Stop 02/14/21 at 21:59; Status DC Potassium Acetate 50 meq/Potassium Phosphate 13.6 mmol/Magnesium Sulfate 6 meq/ Calcium Gluconate 10 meq/ Multivitamins 5 ml/Zinc/Copper/ Manganese/ Selenium 1 ml/ Total Parenteral Nutrition/Amino Acids/Dextrose 1,512 ml @ 63 mls/hr TPN CONT IV Last administered on 02/14/21at 21:59; Start 02/14/21 at 22:00; Stop 02/15/21 at 21:59; Status DC Insulin Glargine (Lantus Syringe) 10 unit QHS SQ Last administered on 02/15/21at 22:11; Start 02/14/21 at 21:00; Stop 02/16/21 at 12:42; Status DC Hydralazine HCl (Apresoline Inj) 10 mg PRN Q4HRS PRN IVP ELEVATED BP, SEE COMMENTS Last administered on 03/08/21at 11:14; Start 02/14/21 at 16:00 Potassium Acetate 50 meq/Potassium Phosphate 13.6 mmol/Magnesium Sulfate 6 meq/ Calcium Gluconate 10 meq/ Multivitamins 5 ml/Zinc/Copper/ Manganese/ Selenium 1 ml/ Total Parenteral Nutrition/Amino Acids/Dextrose 1,512 ml @ 63 mls/hr TPN CONT IV Last administered on 02/15/21at 22:13; Start 02/15/21 at 22:00; Stop 02/16/21 at 21:59; Status DC Dexmedetomidine HCl 400 mcg/ Sodium Chloride 100 ml @ 0 mls/hr CONT PRN IV PER PROTOCOL Last administered on 03/12/21at 08:14; Start 02/15/21 at 14:15 Sodium Chloride 500 ml @ 500 mls/hr 1X PRN PRN IV SEE COMMENTS; Start 02/15/21 at 14:15 Atropine Sulfate (ATROPINE 0.5mg SYRINGE) 0.5 mg PRN Q5MIN PRN IV SEE COMMENTS; Start 02/15/21 at 14:15 Potassium Acetate 50 meq/Potassium Phosphate 13.6 mmol/Magnesium Sulfate 6 meq/ Calcium Gluconate 10 meq/ Multivitamins 5 ml/Zinc/Copper/ Manganese/ Selenium 1 ml/ Total Parenteral Nutrition/Amino Acids/Dextrose 1,512 ml @ 63 mls/hr TPN CONT IV Last administered on 02/16/21at 22:59; Start 02/16/21 at 22:00; Stop 02/17/21 at 21:59; Status DC Insulin Glargine (Lantus Syringe) 14 unit QHS SQ Last administered on 02/16/21at 21:14; Start 02/16/21 at 21:00; Stop 02/17/21 at 14:15; Status DC Potassium Acetate 50 meq/Potassium Phosphate 13.6 mmol/Magnesium Sulfate 6 meq/ Calcium Gluconate 10 meq/ Multivitamins 5 ml/Zinc/Copper/ Manganese/ Selenium 1 ml/ Total Parenteral Nutrition/Amino Acids/Dextrose 1,512 ml @ 63 mls/hr TPN CONT IV Last administered on 02/17/21at 20:48; Start 02/17/21 at 22:00; Stop 02/18/21 at 21:59; Status DC Dextrose 1,000 ml @ 75 mls/hr [id number] IV Last administered on 02/18/21at 13:51; Start 02/17/21 at 10:30; Stop 02/19/21 at 12:57; Status DC Insulin Glargine (Lantus Syringe) 18 unit QHS SQ Last administered on 02/17/21at 20:46; Start 02/17/21 at 21:00; Stop 02/18/21 at 11:56; Status DC Insulin Glargine (Lantus Syringe) 22 unit QHS SQ Last administered on 02/18/21at 21:00; Start 02/18/21 at 21:00; Stop 02/19/21 at 14:08; Status DC Potassium Acetate 50 meq/Potassium Phosphate 13.6 mmol/Magnesium Sulfate 6 meq/ Calcium Gluconate 10 meq/ Multivitamins 5 ml/Zinc/Copper/ Manganese/ Selenium 1 ml/ Total Parenteral Nutrition/Amino Acids/Dextrose 1,512 ml @ 63 mls/hr TPN CONT IV Last administered on 02/18/21at 21:43; Start 02/18/21 at 22:00; Stop 02/19/21 at 21:59; Status DC Potassium Acetate 50 meq/Potassium Phosphate 13.6 mmol/Magnesium Sulfate 6 meq/ Calcium Gluconate 10 meq/ Multivitamins 5 ml/Zinc/Copper/ Manganese/ Selenium 1 ml/ Total Parenteral Nutrition/Amino Acids/Dextrose 2,040 ml @ 85 mls/hr TPN CONT IV Last administered on 02/19/21at 20:56; Start 02/19/21 at 22:00; Stop 02/20/21 at 21:59; Status DC Insulin Glargine (Lantus Syringe) 25 unit QHS SQ Last administered on 02/20/21at 22:11; Start 02/19/21 at 21:00; Stop 02/21/21 at 10:10; Status DC Acetaminophen (Tylenol) 650 mg PRN Q6HRS PRN PEG MILD PAIN / TEMP > 100.3'F Last administered on 03/08/21at 09:40; Start 02/19/21 at 18:00 Potassium Acetate 50 meq/Potassium Phosphate 13.6 mmol/Magnesium Sulfate 6 meq/ Calcium Gluconate 10 meq/ Multivitamins 5 ml/Zinc/Copper/ Manganese/ Selenium 1 ml/ Total Parenteral Nutrition/Amino Acids/Dextrose 2,040 ml @ 85 mls/hr TPN CONT IV Last administered on 02/20/21at 22:10; Start 02/20/21 at 22:00; Stop 02/21/21 at 21:59; Status DC Insulin Glargine (Lantus Syringe) 27 unit QHS SQ Last administered on 03/01/21at 21:18; Start 02/21/21 at 21:00; Stop 03/02/21 at 13:32; Status DC Magnesium Sulfate 50 ml @ 25 mls/hr 1X ONCE IV Last administered on 02/21/21at 11:30; Start 02/21/21 at 11:00; Stop 02/21/21 at 12:59; Status DC Potassium Acetate 50 meq/Potassium Phosphate 13.6 mmol/Magnesium Sulfate 8 meq/ Calcium Gluconate 10 meq/ Multivitamins 5 ml/Zinc/Copper/ Manganese/ Selenium 1 ml/ Total Parenteral Nutrition/Amino Acids/Dextrose 2,040 ml @ 85 mls/hr TPN CONT IV Last administered on 02/21/21at 21:23; Start 02/21/21 at 22:00; Stop 02/22/21 at 21:59; Status DC Daptomycin 570 mg/ Sodium Chloride 50 ml @ 100 mls/hr Q24H IV Last administered on 02/24/21at 13:10; Start 02/22/21 at 12:00; Stop 02/25/21 at 10:34; Status DC Linezolid/Dextrose 300 ml @ 300 mls/hr Q12HR IV Last administered on 03/02/21at 08:26; Start 02/22/21 at 09:00; Stop 03/02/21 at 08:42; Status DC Potassium Acetate 50 meq/Potassium Phosphate 13.6 mmol/Magnesium Sulfate 8 meq/ Calcium Gluconate 5 meq/ Multivitamins 5 ml/Zinc/Copper/ Manganese/ Selenium 1 ml/ Total Parenteral Nutrition/Amino Acids/Dextrose 2,040 ml @ 85 mls/hr TPN CONT IV Last administered on 02/22/21at 21:32; Start 02/22/21 at 22:00; Stop 02/23/21 at 21:59; Status DC Fentanyl Citrate (Fentanyl 2ml Vial) 25 mcg PRN Q5MIN PRN IVP MILD PAIN 1-3; Start 02/23/21 at 06:00; Stop 02/24/21 at 05:59; Status DC Fentanyl Citrate (Fentanyl 2ml Vial) 50 mcg PRN Q5MIN PRN IVP MODERATE PAIN 4- 6; Start 02/23/21 at 06:00; Stop 02/24/21 at 05:59; Status DC Morphine Sulfate (Morphine Sulfate) 1 mg PRN Q10MIN PRN IVP SEVERE PAIN 7-10; Start 02/23/21 at 06:00; Stop 02/24/21 at 05:59; Status DC Ringer's Solution 1,000 ml @ 30 mls/hr Q24H IV Last administered on 02/23/21at 11:00; Start 02/23/21 at 06:00; Stop 02/23/21 at 17:59; Status DC Hydromorphone HCl (Dilaudid) 0.5 mg PRN Q10MIN PRN IVP SEVERE PAIN 7-10, 2nd CHOICE; Start 02/23/21 at 06:00; Stop 02/24/21 at 05:59; Status DC Prochlorperazine Edisylate (Compazine) 5 mg PACU PRN PRN IVP NAUSEA, MRX1; Start 02/23/21 at 06:00; Stop 02/24/21 at 05:59; Status DC Cellulose (Surgicel Fibrillar 1x2) 1 each STK-MED ONCE .ROUTE ; Start 02/23/21 at 08:23; Stop 02/23/21 at 08:23; Status DC Lidocaine/ Epinephrine (LIDOCAINE 1%-EPI 1:100,000 Multi-Dose) 20 ml STK-MED ONCE .ROUTE Last administered on 02/23/21at 13:33; Start 02/23/21 at 08:23; Stop 02/23/21 at 08:23; Status DC Potassium Acetate 50 meq/Potassium Phosphate 13.6 mmol/Magnesium Sulfate 8 meq/ Calcium Gluconate 5 meq/ Multivitamins 5 ml/Zinc/Copper/ Manganese/ Selenium 1 ml/ Total Parenteral Nutrition/Amino Acids/Dextrose 2,040 ml @ 85 mls/hr TPN CONT IV ; Start 02/23/21 at 22:00; Stop 02/24/21 at 21:59; Status DC Rocuronium Leon (Zemuron) 50 mg STK-MED ONCE .ROUTE ; Start 02/23/21 at 12:13; Stop 02/23/21 at 12:13; Status DC Fentanyl Citrate (Fentanyl 2ml Vial) 100 mcg STK-MED ONCE .ROUTE ; Start 02/23/21 at 12:24; Stop 02/23/21 at 12:24; Status DC Insulin Human Lispro (HumaLOG VIAL for OP,RR ONLY) 0-10 units PRN Q1HR PRN SQ PER PROTOCOL Last administered on 02/23/21at 13:00; Start 02/23/21 at 13:15; Stop 02/24/21 at 13:14; Status DC Rocuronium Leon (Zemuron) 100 mg STK-MED ONCE .ROUTE ; Start 02/23/21 at 13:22; Stop 02/23/21 at 13:23; Status DC Albuterol Sulfate (Ventolin Hfa) 60 puff STK-MED ONCE INH ; Start 02/23/21 at 13:47; Stop 02/23/21 at 13:48; Status DC Sevoflurane (Ultane) 60 ml STK-MED ONCE IH ; Start 02/23/21 at 14:21; Stop 02/23/21 at 14:21; Status DC Potassium Acetate 50 meq/Potassium Phosphate 13.6 mmol/Magnesium Sulfate 8 meq/ Calcium Gluconate 5 meq/ Multivitamins 5 ml/Zinc/Copper/ Manganese/ Selenium 1 ml/ Total Parenteral Nutrition/Amino Acids/Dextrose 2,040 ml @ 85 mls/hr TPN CONT IV ; Start 02/25/21 at 22:00; Stop 02/26/21 at 21:59; Status DC Potassium Acetate 50 meq/Potassium Phosphate 13.6 mmol/Magnesium Sulfate 8 meq/ Calcium Gluconate 5 meq/ Multivitamins 5 ml/Zinc/Copper/ Manganese/ Selenium 1 ml/ Total Parenteral Nutrition/Amino Acids/Dextrose 2,040 ml @ 85 mls/hr TPN CONT IV Last administered on 02/26/21at 21:27; Start 02/26/21 at 22:00; Stop 02/27/21 at 21:59; Status DC Potassium Acetate 50 meq/Potassium Phosphate 13.6 mmol/Magnesium Sulfate 8 meq/ Calcium Gluconate 5 meq/ Multivitamins 5 ml/Zinc/Copper/ Manganese/ Selenium 1 ml/ Total Parenteral Nutrition/Amino Acids/Dextrose 2,040 ml @ 85 mls/hr TPN CONT IV Last administered on 02/27/21at 21:01; Start 02/27/21 at 22:00; Stop 02/28/21 at 21:59; Status DC Potassium Acetate 50 meq/Potassium Phosphate 13.6 mmol/Magnesium Sulfate 8 meq/ Calcium Gluconate 5 meq/ Multivitamins 5 ml/Zinc/Copper/ Manganese/ Selenium 1 ml/ Total Parenteral Nutrition/Amino Acids/Dextrose 2,040 ml @ 85 mls/hr TPN CONT IV Last administered on 02/28/21at 21:44; Start 02/28/21 at 22:00; Stop 03/01/21 at 21:59; Status DC Potassium Acetate 50 meq/Potassium Phosphate 13.6 mmol/Magnesium Sulfate 8 meq/ Calcium Gluconate 5 meq/ Multivitamins 5 ml/Zinc/Copper/ Manganese/ Selenium 1 ml/ Total Parenteral Nutrition/Amino Acids/Dextrose 2,040 ml @ 85 mls/hr TPN CONT IV Last administered on 03/01/21at 21:22; Start 03/01/21 at 22:00; Stop 03/02/21 at 21:59; Status DC Potassium Acetate 50 meq/Potassium Phosphate 13.6 mmol/Magnesium Sulfate 8 meq/ Multivitamins 5 ml/Zinc/Copper/ Manganese/ Selenium 1 ml/ Total Parenteral Nutrition/Amino Acids/Dextrose 2,040 ml @ 85 mls/hr TPN CONT IV Last administered on 03/02/21at 21:11; Start 03/02/21 at 22:00; Stop 03/03/21 at 21:59; Status DC Insulin Glargine (Lantus Syringe) 35 unit QHS SQ Last administered on 03/11/21at 21:50; Start 03/02/21 at 21:00 Potassium Acetate 50 meq/Potassium Phosphate 13.6 mmol/Magnesium Sulfate 8 meq/ Multivitamins 5 ml/Zinc/Copper/ Manganese/ Selenium 1 ml/ Total Parenteral Nutrition/Amino Acids/Dextrose 1,800 ml @ 75 mls/hr TPN CONT IV Last administered on 03/03/21at 21:54; Start 03/03/21 at 22:00; Stop 03/04/21 at 21:59; Status DC Docusate Sodium (Colace Solution) 100 mg DAILY PO Last administered on 03/12/21at 08:14; Start 03/03/21 at 10:00 Polyethylene Glycol (miraLAX PACKET) 17 gm DAILY PO Last administered on 03/12/21at 08:14; Start 03/03/21 at 10:00 Potassium Acetate 40 meq/Potassium Phosphate 13.6 mmol/Magnesium Sulfate 10 meq/ Multivitamins 5 ml/Zinc/Copper/ Manganese/ Selenium 1 ml/ Total Parenteral Nutrition/Amino Acids/Dextrose 1,800 ml @ 75 mls/hr TPN CONT IV Last administered on 03/04/21at 22:16; Start 03/04/21 at 22:00; Stop 03/05/21 at 21:59; Status DC Linezolid/Dextrose 300 ml @ 300 mls/hr Q12HR IV Last administered on 03/07/21at 08:53; Start 03/05/21 at 09:00; Stop 03/07/21 at 09:45; Status DC Magnesium Sulfate 50 ml @ 25 mls/hr 1X ONCE IV Last administered on 03/05/21at 13:31; Start 03/05/21 at 14:00; Stop 03/05/21 at 15:59; Status DC Sodium Chloride 40 meq/Potassium Acetate 40 meq/ Potassium Phosphate 13.6 mmol/Magnesium Sulfate 10 meq/ Multivitamins 5 ml/Zinc/Copper/ Manganese/ Selenium 1 ml/ Total Parenteral Nutrition/Amino Acids/Dextrose 1,800 ml @ 75 mls/hr TPN CONT IV Last administered on 03/05/21at 21:20; Start 03/05/21 at 22:00; Stop 03/06/21 at 21:59; Status DC Sodium Chloride 40 meq/Potassium Acetate 40 meq/ Potassium Phosphate 13.6 mmol/Magnesium Sulfate 10 meq/ Multivitamins 5 ml/Zinc/Copper/ Manganese/ Selenium 1 ml/ Total Parenteral Nutrition/Amino Acids/Dextrose 1,800 ml @ 75 mls/hr TPN CONT IV Last administered on 03/06/21at 21:35; Start 03/06/21 at 22:00; Stop 03/07/21 at 21:59; Status DC Vecuronium Leon (Norcuron Bolus) 10 mg STK-MED ONCE IV ; Start 03/07/21 at 11:15; Stop 03/07/21 at 11:16; Status DC Vecuronium Leon (Norcuron Bolus) 10 mg 1X ONCE IV Last administered on 03/07/21at 11:59; Start 03/07/21 at 11:30; Stop 03/07/21 at 12:00; Status DC Sodium Chloride 40 meq/Potassium Acetate 40 meq/ Potassium Phosphate 13.6 mmol/Magnesium Sulfate 10 meq/ Multivitamins 5 ml/Zinc/Copper/ Manganese/ Selenium 1 ml/ Total Parenteral Nutrition/Amino Acids/Dextrose 1,800 ml @ 75 mls/hr TPN CONT IV Last administered on 03/07/21at 21:41; Start 03/07/21 at 22:00; Stop 03/08/21 at 21:59; Status DC Sodium Chloride 40 meq/Potassium Acetate 40 meq/ Potassium Phosphate 13.6 mmol /Magnesium Sulfate 10 meq/ Multivitamins 5 ml/Zinc/Copper/ Manganese/ Selenium 1 ml/ Total Parenteral Nutrition/Amino Acids/Dextrose 1,560 ml @ 65 mls/hr TPN CONT IV Last administered on 03/08/21at 22:01; Start 03/08/21 at 22:00; Stop 03/09/21 at 21:59; Status DC Sodium Chloride 40 meq/Potassium Acetate 40 meq/ Potassium Phosphate 13.6 mmol/Magnesium Sulfate 10 meq/ Multivitamins 5 ml/Zinc/Copper/ Manganese/ Selenium 1 ml/ Total Parenteral Nutrition/Amino Acids/Dextrose 1,560 ml @ 65 mls/hr TPN CONT IV Last administered on 03/09/21at 22:33; Start 03/09/21 at 22:00; Stop 03/10/21 at 21:59; Status DC Sodium Chloride 40 meq/Potassium Acetate 40 meq/ Magnesium Sulfate 10 meq/ Multivitamins 5 ml/Zinc/Copper/ Manganese/ Selenium 1 ml/ Total Parenteral Nutrition/Amino Acids/Dextrose 1,560 ml @ 65 mls/hr TPN CONT IV Last administered on 03/10/21at 21:57; Start 03/10/21 at 22:00; Stop 03/11/21 at 21:59; Status DC Sodium Chloride 60 meq/Potassium Acetate 40 meq/ Magnesium Sulfate 10 meq/ Multivitamins 5 ml/Zinc/Copper/ Manganese/ Selenium 1 ml/ Total Parenteral Nutrition/Amino Acids/Dextrose 1,560 ml @ 65 mls/hr TPN CONT IV Last administered on 03/11/21at 21:52; Start 03/11/21 at 22:00; Stop 03/12/21 at 21:59 Vitals/I & O Vital Sign - Last 24 Hours 03/11/21 03/11/21 03/11/21 03/11/21 11:00 12:00 12:00 12:52 Temp 97.7 97.7 Pulse 71 66 Resp 16 16 B/P (MAP) 93/67 (76) 87/65 (72) Pulse Ox 99 99 98 O2 Delivery Ventilator Mechanical Ventilator Ventilator Ventilator 03/11/21 03/11/21 03/11/21 03/11/21 13:00 14:00 15:00 15:57 Pulse 69 65 66 Resp 16 16 16 B/P (MAP) 81/57 (65) 95/68 (77) 95/67 (76) Pulse Ox 98 99 99 O2 Delivery Ventilator Ventilator Ventilator Mechanical Ventilator 03/11/21 03/11/21 03/11/21 03/11/21 16:00 16:22 17:00 17:46 Temp 97.5 97.5 Pulse 77 70 Resp 16 16 B/P (MAP) 131/78 (95) 109/66 (80) Pulse Ox 99 95 97 96 O2 Delivery Ventilator Ventilator Ventilator Ventilator 03/11/21 03/11/21 03/11/21 03/11/21 18:00 19:00 20:00 20:00 Temp 98.5 98.5 Pulse 85 70 70 Resp 16 16 16 B/P (MAP) 135/82 (99) 113/75 (88) 121/78 (92) Pulse Ox 96 98 98 O2 Delivery Ventilator Ventilator Ventilator Mechanical Ventilator 03/11/21 03/11/21 03/11/21 03/11/21 20:55 21:00 22:00 23:00 Pulse 72 70 68 Resp 16 16 16 B/P (MAP) 115/73 (87) 116/74 (88) 108/69 (82) Pulse Ox 98 98 98 99 O2 Delivery Ventilator Ventilator Ventilator Ventilator 03/12/21 03/12/21 03/12/21 03/12/21 00:00 00:00 00:20 01:00 Temp 98.4 98.4 Pulse 68 64 Resp 16 16 B/P (MAP) 140/81 (100) 112/78 (89) Pulse Ox 98 98 97 O2 Delivery Ventilator Mechanical Ventilator Ventilator Ventilator 03/12/21 03/12/21 03/12/21 03/12/21 02:00 03:00 04:00 04:00 Temp 98.7 98.7 Pulse 64 60 60 Resp 16 16 16 B/P (MAP) 104/70 (81) 112/72 (85) 109/78 (88) Pulse Ox 98 98 98 O2 Delivery Ventilator Ventilator Ventilator Mechanical Ventilator 03/12/21 03/12/21 03/12/21 03/12/21 04:40 05:00 06:00 07:00 Temp 97.5 97.5 Pulse 60 58 56 Resp 16 16 16 B/P (MAP) 116/75 (89) 102/72 (82) 150/78 (102) Pulse Ox 98 98 97 99 O2 Delivery Ventilator Ventilator Ventilator Ventilator 03/12/21 03/12/21 03/12/21 03/12/21 07:43 08:00 08:00 08:16 Pulse 54 Resp 16 16 B/P (MAP) 111/78 (89) Pulse Ox 97 97 98 O2 Delivery Ventilator Ventilator Mechanical Ventilator Ventilator 03/12/21 03/12/21 03/12/21 08:46 09:00 09:42 Pulse 50 Resp 16 16 B/P (MAP) 113/77 (89) Pulse Ox 98 100 97 O2 Delivery Ventilator Ventilator Ventilator Intake and Output 03/11/21 03/11/21 03/12/21 15:00 23:00 07:00 Intake Total 1105.57 ml 0 ml Output Total 455 ml 775 ml 775 ml Balance -455 ml 330.57 ml -775 ml Justicifation of Admission Dx: Justifications for Admission: Justification of Admission Dx: Yes Acute Hemorrhagic Stroke: Acute Hemorrhagic Stroke LESLI ALCOCER MD Mar 12, 2021 10:32
[2021-03-12] MEDS ORDERED: PROCHLORPERAZINE 10 MG/2 ML VIAL. IV PRN (11:45)
[2021-03-12] MEDS ORDERED: ONDANSETRON PF 4 MG/2 ML VIAL. IVP PRN (11:45)
[2021-03-12] MEDS ORDERED: MORPHINE SULFATE 10 MG/ML VIAL. ONE (16:24)
[2021-03-12] MEDS: MORPHINE SULFATE 4 MG/ML INJ. IV PRN ×4 (17:09→23:17)
--- NOTE | 2021-03-12 19:11 | NUR ---
1630 Comfort care measures initiated. Patient's sister Peggy bedside. At this time patient in no apparent distress. [facility] referral called. Patient not a candidate for organs. Nurse to call with TOD. Handoff report given to Jay Asencio.
[2021-03-13] MEDS: MORPHINE SULFATE 4 MG/ML INJ. IV PRN (00:32)
--- NOTE | 2021-03-13 01:55 | NUR ---
patient went asystole at 0155, pronounced by this rn and eliu hunt rn at bedside. family present in the room at time of . dr griffin notified of tod. [facility] notified and patient is not a candidate for any donation. Patient did not have any belongings with him at time of . family will call back tomorrow with a home.
--- NOTE | 2021-03-14 22:37 | PDOC3 ---
Discharge Summary Date of Admission: Feb 09, 2021 Date of Discharge: Mar 13, 2021 Follow-Up: Other () Admitting Diagnosis comment: HISTORY OF PRESENT ILLNESS 61-year-old male transferred for to the ICU overnight due to hypertensive emergency and intracranial hemorrhage. Patient's mother at bedside provides most the history. She reports that patient had been in his usual state of health until yesterday morning when he reported feeling tired and having a headache. Patient mother reports he normally gets up early and goes outside however this was not the case yesterday. With this headache he took BC powder and went back to bed. Patient's mother reports that he was in and out of bed throughout most of the afternoon. Says patient did not eat anything yesterday which is very unusual for him. Approximately 1130 last night she had the patient get up to go to the bathroom and heard him fall. He however is able to get up and returned to bed; unknown if he hit his head at this time. Patient again woke up around 2 AM and woke up his mother asking for orange juice and then proceeded to fall again, she does not think he hit his head at this time. He was taken to hospital and found to have a systolic blood pressure greater than [address] scan found to have an intracranial hemorrhage. Due to severity of his condition he was transferred here. Patient's mother reports she is not aware of any past medical history other than hypertension which he intermittently takes hydrochlorothiazide for. CONSULTS., NEUROSURGERY, PULMONARY MEDICINE, INFECTIOUS DISEASE, NEPHROLOGY, CARDIOLOGY COMPLICATIONS CEREBROVASCULAR ACCIDENT PROCEDURES PATIENT: COOPER JOYA ACCOUNT: [id number] : 1960 LOC: [address] [place] [address] AGE: 61 SEX: M STATUS: ADM IN LOCATION: [address] [place] [address] DATE OF SURGERY: 02/09/2021 PREOPERATIVE DIAGNOSIS: Right posterior temporoparietal occipital intracerebral hemorrhage with neurologic deterioration. POSTOPERATIVE DIAGNOSIS: Right posterior temporoparietal occipital intracerebral hemorrhage with neurologic deterioration. OPERATION PERFORMED: Right occipital craniotomy with evacuation of intracerebral hematoma. SURGEON: Abel Louie M.D. COMMUNITY RELATIONS REP: MARCIE Bragg assisted with the surgery. She assisted with the exposure, the removal of the hematoma as well as the closure. SPECIMEN: Hematoma. OPERATIVE INDICATIONS: The patient is a pleasant 61-year-old man who was admitted in the early hours of 02/09/2021 with a large intracerebral hematoma. He was awake and would follow simple commands. He was conversant and we elected to follow him and observe him closely in intensive care unit. He made further precipitous deterioration in the late afternoon of 02/09. He was re-scanned with a CTA included to be sure there were no vascular malformations or further rebleeding which there was not and he was taken directly to the operating room for craniotomy. Surgery was discussed with the patient's mother and sisters. They strongly wished for us to go ahead with surgery. OPERATIVE REPORT PATIENT: COOPER JOYA ACCOUNT: [id number] : 1960 LOC: [facility] AGE: 61 SEX: M STATUS: ADM IN LOCATION: [address] [place] [address] DATE OF SURGERY: 02/23/2021 PREOPERATIVE DIAGNOSIS: Prolonged intubation and prolonged need for ventilatory support. POSTOPERATIVE DIAGNOSIS: Prolonged intubation and prolonged need for ventilatory support. PROCEDURE PERFORMED: Tracheostomy. SURGEON: Melony Avelar MD COLOR CORRECTOR: LORNA Santacruz ANESTHESIA: General endotracheal anesthesia. INDICATIONS FOR SURGERY: The patient is a 61-year-old male admitted to the hospital on 02/09/2021 after suffering a stroke. The patient underwent right occipital craniotomy with evacuation of intracerebral hematoma on 02/09/2021 and he has continued to not awaken from anesthesia since that time. Due to prolonged need for ventilatory support, the decision was made for the patient to undergo a tracheostomy. After the risks, benefits and alternatives of surgery were discussed with the patient's family, an informed consent was obtained. ESTIMATED BLOOD LOSS: Less than 10 mL. INTRAOPERATIVE FINDINGS: Prominent thyroid isthmus and superiorly located innominate artery, but otherwise normal anatomy to the trachea. An 8.0 cuffed Shiley trach placed in the airway at the end of the case. history of present illness Patient is a 61-year-old male transferred for to the ICU overnight due to hypertensive emergency and intracranial hemorrhage. Patient's mother at bedside provides most the history. She reports that patient had been in his usual state of health until yesterday morning when he reported feeling tired and having a headache. Patient mother reports he normally gets up early and goes outside however this was not the case yesterday. With this headache he took BC powder and went back to bed. Patient's mother reports that he was in and out of bed throughout most of the afternoon. Says patient did not eat anything yesterday which is very unusual for him. Approximately 1130 last night she had the patient get up to go to the bathroom and heard him fall. He however is able to get up and returned to bed; unknown if he hit his head at this time. Patient again woke up around 2 AM and woke up his mother asking for orange juice and then proceeded to fall again, she does not think he hit his head at this time. He was taken to hospital and found to have a systolic blood pressure greater than [address] scan found to have an intracranial hemorrhage. Due to severity of his condition he was transferred here. Patient's mother reports she is not aware of any past medical history other than hypertension which he intermittently takes hydrochlorothiazide for. hospital summary cause of Severe intracranial hemorrhage Acute metabolic encephalopathy Respiratory failure requiring intubation due to # 1 Status post tracheostomy HIGH TENSION TESTER hemorrhage Status post craniotomy 02/09/2021 Obesity Aspiration Hypertension COPD Acute kidney injury Severe Protein-caloricmalnutrition progress notes 03/13/2021 family agreed to proceed with palliative care./ DNR/ PT WITH COMFORT PROTOCOL IN PLACE D/C PLANNING TIME 34 MIN HOSPITAL COURSE 8-08 Eyes open spontaneously in response to visual threat did not tolerate T shield 8-04 Slight interval decrease in the attenuation of an acute to subacute intraparenchymal hemorrhage centered within the posterior right cerebral hemisphere due to evolving blood products. There is fairly stable surrounding edema and effacement of the posterior right lateral ventricle, favoring hemorrhagic transformation of a subacute infarction. Stable suspected hemorrhagic infarction within the left frontal lobe and stable small amount of acute subarachnoid hemorrhage along the cerebral convexities. There is also a stable small amount of intraventricular hemorrhage. There is no convincing obstructive hydrocephalus. remains on vent PS 10 and 40% Patient seen and examined in the ICU Interval development of a left frontal hypodensity concerning for subacute infarct. intubated but on spontaneous respirations 10 of pressure support with 40% FiO2 TPN hanging Moore to bedside drainage Sedated with propofol fentanyl and Dex Discussed with RN Chart reviewed remains critically ill Discontinue antibiotics 8- 36 min cc time 03/11/2021 Eyes open spontaneously in response to visual threat did not tolerate T shield 8 Slight interval decrease in the attenuation of an acute to subacute intraparenchymal hemorrhage centered within the posterior right cerebral hemisphere due to evolving blood products. There is fairly stable surrounding edema and effacement of the posterior right lateral ventricle, favoring h emorrhagic transformation of a subacute infarction. Stable suspected hemorrhagic infarction within the left frontal lobe and stable small amount of acute subarachnoid hemorrhage along the cerebral convexities. There is also a stable small amount of intraventricular hemorrhage. There is no convincing obstructive hydrocephalus. remains on vent PS 10 and 40% family wants all measures and transfer to long-term acute care.// will need a tracheostomy and PEG Patient seen and examined in the ICU Interval development of a left frontal hypodensity concerning for subacute infarct. intubated but on spontaneous respirations 10 of pressure support with 40% FiO2 TPN hanging Moore to bedside drainage Sedated with propofol fentanyl and Dex Discussed with RN Chart reviewed remains critically ill Discontinue antibiotics 8- 33 min cc time STATUS: ADM IN LOCATION: [address] [place] [address] 03-07 PREOPERATIVE DIAGNOSIS: Prolonged intubation and prolonged need for ventilatory support. POSTOPERATIVE DIAGNOSIS: Prolonged intubation and prolonged need for ventilatory support. PROCEDURE PERFORMED: Tracheostomy. 03/10/2021 Eyes open spontaneously in response to visual threat did not tolerate T shield 03-08 Slight interval decrease in the attenuation of an acute to subacute intraparenchymal hemorrhage centered within the posterior right cerebral hemisp here due to evolving blood products. There is fairly stable surrounding edema and effacement of the posterior right lateral ventricle, favoring hemorrhagic transformation of a subacute infarction. Stable suspected hemorrhagic infarction within the left frontal lobe and stable small amount of acute subarachnoid hemorrhage along the cerebral convexities. There is also a stable small amount of intraventricular hemorrhage. There is no convincing obstructive hydrocephalus. remains on vent PS 10 and 40% family wants all measures and transfer to long-term acute care.// will need a tracheostomy and PEG Patient seen and examined in the ICU Interval development of a left frontal hypodensity concerning for subacute infarct. intubated but on spontaneous respirations 10 of pressure support with 40% FiO2 TPN hanging Moore to bedside drainage Sedated with propofol fentanyl and Dex Discussed with RN Chart reviewed remains critically ill Discontinue antibiotics 03-07 33 min cc time STATUS: ADM IN LOCATION: [address] [place] [address] 03-07 PREOPERATIVE DIAGNOSIS: Prolonged intubation and prolonged need for ventilatory support. POSTOPERATIVE DIAGNOSIS: Prolonged intubation and prolonged need for ventilatory support. PROCEDURE PERFORMED: Tracheostomy. SURGEON: Melony Avelar MD COLOR CORRECTOR: LORNA Santacruz ANESTHESIA: General endotracheal anesthesia. INDICATIONS FOR SURGERY: The patient is a 61-year-old male admitted to the hospital on 02/09/2021 after suffering a stroke. The patient underwent right occipital craniotomy with evacuation of intracerebral hematoma on 02/09/2021 and he has continued to not awaken from anesthesia since that time. Due to prolonged need for ventilatory support, the decision was made for the patient to undergo a tracheostomy. After the risks, benefits and alternatives of surgery were discussed with the patient's family, an informed consent was obtained. 03/08/2021 Slight interval decrease in the attenuation of an acute to subacute intraparenchymal hemorrhage centered within the posterior right cerebral hemisphere due to evolving blood products. There is fairly stable surrounding edema and effacement of the posterior right lateral ventricle, favoring hemorrhagic transformation of a subacute infarction. Stable suspected hemorrhagic infarction within the left frontal lobe and stable small amount of acute subarachnoid hemorrhage along the cerebral convexities. There is also a stable small amount of intraventricular hemorrhage. There is no convincing obstructive hydrocephalus. remains on vent PS 10 and 40% family wants all measures and transfer to long-term acute care.// will need a tracheostomy and PEG Patient seen and examined in the ICU Interval development of a left frontal hypodensity concerning for subacute infarct. intubated but on spontaneous respirations 10 of pressure support with 40% FiO2 TPN hanging Moore to bedside drainage Sedated with propofol fentanyl and Dex Discussed with RN Chart reviewed remains critically ill Discontinue antibiotics 03-07 32 min cc time STATUS: ADM IN LOCATION: [address] [place] [address] 03-07 PREOPERATIVE DIAGNOSIS: Prolonged intubation and prolonged need for ventilatory support. POSTOPERATIVE DIAGNOSIS: Prolonged intubation and prolonged need for ventilatory support. PROCEDURE PERFORMED: Tracheostomy. SURGEON: Melony Avelar MD COLOR CORRECTOR: LORNA Santacruz 03/09/2021 did not tolerate T shield 03-08 Slight interval decrease in the attenuation of an acute to subacute intraparenchymal hemorrhage centered within the posterior right cerebral hemisphere due to evolving blood products. There is fairly stable surrounding edema and effacement of the posterior right lateral ventricle, favoring hemorrhagic transformation of a subacute infarction. Stable suspected hemorrhagic infarction within the left frontal lobe and stable small amount of acute subarachnoid hemorrhage along the cerebral convexities. There is also a stable small amount of intraventricular hemorrhage. There is no convincing obstructive hydrocephalus. remains on vent PS 10 and 40% family wants all measures and transfer to long-term acute care.// will need a tracheostomy and PEG Patient seen and examined in the ICU Interval development of a left frontal hypodensity concerning for subacute infarct. intubated but on spontaneous respirations 10 of pressure support with 40% FiO2 TPN hanging Moore to bedside drainage Sedated with propofol fentanyl and Dex Discussed with RN Chart reviewed remains critically ill Discontinue antibiotics 03-07 34 min cc time STATUS: ADM IN LOCATION: [facility] ICU 03-07 PREOPERATIVE DIAGNOSIS: Prolonged intubation and prolonged need for venti latory support. POSTOPERATIVE DIAGNOSIS: Prolonged intubation and prolonged need for ventilatory support. PROCEDURE PERFORMED: Tracheostomy. SURGEON: Melony Avelar MD COLOR CORRECTOR: LORNA Santacruz ANESTHESIA: General endotracheal anesthesia. INDICATIONS FOR SURGERY: The patient is a 61-year-old male admitted to the hospital on 02/09/2021 after suffering a stroke. The patient underwent right occipital craniotomy with evacuation of intracerebral hematoma on 02/09/2021 and he has continued to not awaken from anesthesia since that time. Due to prolonged need for ventilatory support, the decision was made for the patient to undergo a tracheostomy. After the risks, benefits and alternatives of surgery were discussed with the patient's family, an informed consent was obtained. 03/08/2021 Slight interval decrease in the attenuation of an acute to subacute intraparenchymal hemorrhage centered within the posterior right cerebral hemisphere due to evolving blood products. There is fairly stable surrounding edema and effacement of the posterior right lateral ventricle, favoring hemorrhagic transformation of a subacute infarction. Stable suspected hemorrhagic infarction within the left frontal lobe and stable small amount of acute subarachnoid hemorrhage along the cerebral convexities. There is also a stable small amount of intraventricular hemorrhage. There is no convincing obstructive hydrocephalus. remains on vent PS 10 and 40% family wants all measures and transfer to long-term acute care.// will need a tracheostomy and PEG Patient seen and examined in the ICU Interval development of a left frontal hypodensity concerning for subacute infarct. intubated but on spontaneous respirations 10 of pressure support with 40% FiO2 TPN hanging Moore to bedside drainage Sedated with propofol fentanyl and Dex Discussed with RN Chart reviewed remains critically ill Discontinue antibiotics 03-07 32 min cc time STATUS: ADM IN LOCATION: [address] [place] [address] 03-07 PREOPERATIVE DIAGNOSIS: Prolonged intubation and prolonged need for ventilatory support. POSTOPERATIVE DIAGNOSIS: Prolonged intubation and prolonged need for ventilatory support. PROCEDURE PERFORMED: Tracheostomy. SURGEON: Melony Avelar MD COLOR CORRECTOR: LORNA Santacruz ANESTHESIA: General endotracheal anesthesia. INDICATIONS FOR SURGERY: The patient is a 61-year-old male admitted to the hospital on 02/09/2021 after suffering a stroke. The patient underwent right occipital craniotomy with evacuation of intracerebral hematoma on 02/09/2021 and he has continued to not awaken from anesthesia since that time. Due to prolonged need for ventilatory support, the decision was made for the patient to undergo a tracheostomy. After the risks, benefits and alternatives of surgery were discussed with the patient's family, an informed consent was obtained. 03/07/2021 Slight interval decrease in the attenuation of an acute to subacute intraparenchymal hemorrhage centered within the posterior right cerebral hemisphere due to evolving blood products. There is fairly stable surrounding edema and effacement of the posterior right lateral ventricle, favoring hemorrhagic transformation of a subacute infarction. Stable suspected hemorrhagic infarction within the left frontal lobe and stable small amount of acute subarachnoid hemorrhage along the cerebral convexities. There is also a stable small amount of intraventricular hemorrhage. There is no convincing obstructive hydrocephalus. remains on vent PS 10 and 40% family wants all measures and transfer to long-term acute care.// will need a tracheostomy and PEG Patient seen and examined in the ICU Interval development of a left frontal hypodensity concerning for subacute infarct. intubated but on spontaneous respirations 10 of pressure support with 40% FiO2 TPN hanging Moore to bedside drainage Sedated with propofol fentanyl and Dex Discussed with RN Chart reviewed remains critically ill Discontinue antibiotics 03-07 33 min cc time 03/06/2021 family wants all measures and transfer to long-term acute care.// will need a tracheostomy and PEG Patient seen and examined in the ICU Interval development of a left frontal hypodensity concerning for subacute infarct. intubated but on spontaneous respirations 10 of pressure support with 40% FiO2 considering starting OG feeds but still currently has TPN hanging Moore to bedside drainage Sedated with propofol fentanyl and Dex Discussed with RN Chart reviewed remains critically ill 33 min cc time 03/05/2021 Patient seen and examined in the ICU He is still intubated but on spontaneous respirations 10 of pressure support with 40% FiO2 We are considering starting OG feeds today but still currently has TPN hanging Moore to bedside drainage Sedated with propofol fentanyl and Dex Discussed with RN Chart reviewed He remains critically ill 03/04/2021 Patient seen and examined in the ICU He is currently on spontaneous respirations via tracheostomy with pressure support of 10 Discussed with RN Chart reviewed Patient still has TPN running but we are going to try to change that to OG feeds later today Sedated with fentanyl propofol and Precedex SCDs in place Moore to bedside drainage Remains critically ill 03/03/2021 Patient seen and examined in the ICU He has a clean dry intact tracheostomy Currently on spontaneous respirations with 10 of pressure support 40% FiO2 Discussed with RN Chart reviewed Has TPN hanging Sedated with fentanyl propofol and Precedex OG feeds are to suction SCDs in place Moore to bedside drainage He remains critically ill 03/02/2021 Patient seen and examined in the ICU We just changed him over to spontaneous respirations with 10 of pressure support and 40% FiO2 Discussed with RN and respiratory therapy He has been able to be on spontaneous respirations during the daytime for the past 3 days but we have placed him back on assist-control at nighttime Trach is clean and in tact Has Moore to bedside drainage SCDs in place OG is to suction Has IV TPN Has IV Zyvox Sedated with Precedex and propofol 03/01/2021 Patient seen and examined in the ICU He remains mechanically ventilated AC/16/500/40 5% with 5 of PEEP trach appears clean dry and intact He is a Moore bedside drainage Sedated with fentanyl and propofol Has TPN hanging Discussed with RN Discussed with case management Chart reviewed He remains very critically ill 02/28/2021 Patient seen and examined in the ICU He remains mechanically ventilated Has a tracheostomy in place Vent settings as follows AC/16/500/45/5 of PEEP Has SCDs in place Moore is to bedside drainage Sedated with Precedex fentanyl and propofol Has IV TPN Chart reviewed Discussed with RN He remains critically 02/27/2021 Patient seen and examined in the ICU He remains mechanically ventilated AC/16/500/40 5% with 5 of PEEP Has tracheostomy in place Has TPN running SCDs are in place Moore to bedside drainage Sedated with fentanyl and propofol Discussed with RN Chart reviewed He remains critically 02/26/2021: Low-grade fever overnight (99.6 F). On vent with FiO2 40%, PEEP 5. S/p tracheostomy 02/23. Per RN, some hypertension overnight (systolic BP 203) requiring IV nicardipine, but this has been titrated down and now able to resume as needed hydralazine. Recommend keep nicardipine on standby to maintain blood pressure <150/90 mmHg. Continue TPN but will likely need PEG tube and eventually long-term acute care. Due to low-grade fever, lines are being changed. Continue Zosyn and Zyvox, per ID. Critical care time 30 minutes spent reviewing charts, reviewing imaging, reviewing labs, and discussion with RN. 02/25/2021: Remains on vent with FiO2 40%, PEEP 5. Afebrile. Plan for follow-up CT head on Saturday. Continue Zosyn, per ID. Blood glucose well controlled. Critical care time 30 minutes spent reviewing charts, reviewing imaging, reviewing labs, and discussion with RN. 02/24/2021: Afebrile. Had tracheostomy performed yesterday. On vent with FiO2 40%, PEEP 5. Continue antibiotics, per ID. Critical care time 30 minutes reviewing labs, reviewing imaging, reviewing charts, discussed with RN. 02/23/2021: Patient remains intubated in ICU, FiO2 40%, PEEP 5. I believe plan is for trach today. Continue daptomycin, Zosyn, and Zyvox, per ID. Critical care time 30 minutes spent reviewing charts, reviewing labs, reviewing imaging, discussion with RN. 02/22/2011: Patient ange intubated in ICU. Febrile today, T-max 100.3. FiO2 40, PEEP 5. Continue treatment with Zosyn, per ID. Continue to wean sedation as tolerated. Plan for trach tomorrow. Critical care time 30 minutes spent reviewing chart, reviewing labs, imaging, and discussion with RN. 02/21/2021: Patient remains intubated in ICU, FiO2 40%, PEEP 5. Afebrile. POD #12, s/p right occipital craniotomy with evacuation of intracerebral hematoma (02/09/21). Chest x-ray today shows improving bibasilar opacities. Continue Zosyn, per ID. Critical care time 30 minutes spent reviewing charts, reviewing labs, reviewing imaging, discussion with RN. 02/20/2021: POD #11 Right occipital craniotomy with evacuation of intracerebral hematoma (02/09/21). Remains sedated on ventilator, FiO2 40%, PEEP 5. Chest x- ray from 02/18 showed unchanged bibasilar opacities; recommending follow-up to ensure resolution, particularly of focal opacities in the right lung base. Continue Zosyn. Continue supportive care. Critical care time 30 minutes spent reviewing charts, reviewing labs, reviewing imaging, discussion with RN. 02/19/2021 POD #11 Right occipital craniotomy with evacuation of intracerebral hematoma sedated on vent Patient seen and examined at bedside Continue antibiotics per infectious disease Weaning ventilator and sedation as tolerated extubation in the next few days Plan of care discussed with bedside nurse Expected interval evolution of a right posterior temporal/occipital intrapare nchymal hematoma status post decompressive craniotomy Large right temporo-occipital intraparenchymal bleed, most likely lobar he morrhage from hypertension, consider venous sinus thrombosis, less likely in this location, aneurysmal bleed, head trauma (also unlikely). craniotomy 02/09 evening Suspect of aspiration, respiratory failure, hypertension, chronic obstructive pulmonary disease, improving acute kidney injury cont Zosyn glucose uncontrolled add Lantus 22 UNITS SQ HS elevated troponin suspect stress induced ischemia 36 MIN CC TIME 02/18/2021 POD #10 Right occipital craniotomy with evacuation of intracerebral hematoma sedated on vent Patient seen and examined at bedside Continue antibiotics per infectious disease Weaning ventilator and sedation as tolerated extubation in the next few days Plan of care discussed with bedside nurse Expected interval evolution of a right posterior temporal/occipital intraparenchymal hematoma status post decompressive craniotomy Large right temporo-occipital intraparenchymal bleed, most likely lobar hemorrhage from hypertension, consider venous sinus thrombosis, less likely in this location, aneurysmal bleed, head trauma (also unlikely). Had craniotomy 02/09 evening Suspect of aspiration, respiratory failure, hypertension, chronic obstructive pulmonary disease, improving acute kidney injury cont Zosyn glucose uncontrolled add Lantus 22 UNITS SQ HS 34 MIN CC TIME 02/17/2021 POD #8 Right occipital craniotomy with evacuation of intracerebral hematoma sedated on vent Patient seen and examined at bedside Good response to IV Lasix Continue antibiotics per infectious disease Weaning ventilator and sedation as tolerated extubation in the next few days Plan of care discussed with bedside nurse Expected interval evolution of a right posterior temporal/occipital intraparenchymal hematoma status post decompressive craniotomy Large right temporo-occipital intraparenchymal bleed, most likely lobar hemorrhage from hypertension, consider venous sinus thrombosis, less likely in this location, aneurysmal bleed, head trauma (also unlikely). Had craniotomy 7/ evening Suspect of aspiration, respiratory failure, hypertension, chronic obstructive pulmonary disease, improving acute kidney injury cont Zosyn glucose uncontrolled add Lantus 18 UNITS SQ HS 33 MIN CC TIME 02/16/2021 POD #7 Right occipital craniotomy with evacuation of intracerebral hematoma sedated on vent Patient seen and examined at bedside Good response to IV Lasix Continue antibiotics per infectious disease Weaning ventilator and sedation as tolerated extubation in the next few days Plan of care discussed with bedside nurse Expected interval evolution of a right posterior temporal/occipital intraparenchymal hematoma status post decompressive craniotomy Large right temporo-occipital intraparenchymal bleed, most likely lobar hemorrhage from hypertension, consider venous sinus thrombosis, less likely in this location, aneurysmal bleed, head trauma (also unlikely). Had craniotomy 7 evening Suspect of aspiration, respiratory failure, hypertension, chronic obstructive pulmonary disease, improving acute kidney injury cont Zosyn glucose uncontrolled add Lantus 14 UNITS SQ HS 35 MIN CC TIME 02/15/2021 POD #6 Right occipital craniotomy with evacuation of intracerebral hematoma sedated on vent Patient seen and examined at bedside Good response to IV Lasix Continue antibiotics per infectious disease Weaning ventilator and sedation as tolerated Hopeful extubation in the next few days Plan of care discussed with bedside nurse Expected interval evolution of a right posterior temporal/occipital intraparenchymal hematoma status post decompressive craniotomy Large right temporo-occipital intraparenchymal bleed, most likely lobar hemorrhage from hypertension, consider venous sinus thrombosis, less likely in this location, aneurysmal bleed, head trauma (also unlikely). Had craniotomy 7/ evening Suspect of aspiration, respiratory failure, hypertension, chronic obstructive pulmonary disease, improving acute kidney injury cont Zosyn glucose uncontrolled add Lantus 35 MIN CC TIME 02/14/2021 POD #5 Right occipital craniotomy with evacuation of intracerebral hematoma sedated on vent Patient seen and examined at bedside Good response to IV Lasix Continue antibiotics per infectious disease Weaning ventilator and sedation as tolerated Hopeful extubation in the next few days Plan of care discussed with bedside nurse Expected interval evolution of a right posterior temporal/occipital intraparenchymal hematoma status post decompressive craniotomy Large right temporo-occipital intraparenchymal bleed, most likely lobar hemorrh age from hypertension, consider venous sinus thrombosis, less likely in this location, aneurysmal bleed, head trauma (also unlikely). Had craniotomy / evening Suspect of aspiration, respiratory failure, hypertension, chronic obstructive pulmonary disease, improving acute kidney injury cont Zosyn glucose uncontrolled add Lantus 35 MIN CC TIME 02/13/2021 POD #4 Right occipital craniotomy with evacuation of intracerebral hematoma sedated on vent Patient seen and examined at bedside Good response to IV Lasix Continue antibiotics per infectious disease Weaning ventilator and sedation as tolerated Hopeful extubation in the next few days Plan of care discussed with bedside nurse Expected interval evolution of a right posterior temporal/occipital intr aparenchymal hematoma status post decompressive craniotomy Large right temporo-occipital intraparenchymal bleed, most likely lobar hemorrhage from hypertension, consider venous sinus thrombosis, less likely in this location, aneurysmal bleed, head trauma (also unlikely). Had craniotomy 02/09 evening Suspect of aspiration, respiratory failure, hypertension, chronic obstructive pulmonary disease, improving acute kidney injury cont Zosyn 35 MIN CC TIME 02/12/2021 Patient seen and examined at bedside Remains intubated and sedated Good response to IV Lasix yesterday had nearly 3 L out; will diurese again today Continue antibiotics per infectious disease Weaning ventilator and sedation as tolerated Hopeful extubation in the next few days Plan of care discussed with bedside nurse 02/11/2021 Patient seen and examined at bedside No major clinical changes overnight however this morning patient has largely increased amount of secretions Chest x-ray concerning for possible pneumonia, will consult ID who recommended starting Zosyn Otherwise he remains intubated and sedated We will follow subspecialist input Plan discussed with bedside RN 02/10/2021 Patient seen and examined at bedside Underwent craniotomy yesterday due to unresponsiveness in the late afternoon; was also intubated Continues to have a poor neurologic status Neurology and neurosurgery following Discussed plan of care with bedside nurse Patient is a 61-year-old male transferred for to the ICU overnight due to hypertensive emergency and intracranial hemorrhage. Patient's mother at bedside provides most the history. She reports that patient had been in his usual state of health until yesterday morning when he reported feeling tired and having a headache. Patient mother reports he normally gets up early and goes outside however this was not the case yesterday. With this headache he took BC powder and went back to bed. Patient's mother reports that he was in and out of bed throughout most of the afternoon. Says patient did not eat anything yesterday which is very unusual for him. Approximately 1130 last night she had the patient get up to go to the bathroom and heard him fall. He however is able to get up and returned to bed; unknown if he hit his head at this time. Patient again woke up around 2 AM and woke up his mother asking for orange juice and then proceeded to fall again, she does not think he hit his head at this time. He was taken to hospital and found to have a systolic blood pressure greater than [address] scan found to have an intracranial hemorrhage. Due to severity of his condition he was transferred here. Patient's mother reports she is not aware of any past medical history other than hypertension which he intermittently takes hydrochlorothiazide for. Vitals Vitals Vital Signs Date Time Temp Pulse Resp B/P (MAP) Pulse Ox O2 Delivery O2 Flow Rate FiO2 03/12/21 09:42 97 Ventilator 03/12/21 09:00 50 16 113/77 (89) 03/12/21 07:00 97.5 97.5 Physical Exam Physical Exam GENERAL: Sedated on vent, patient is not following commands HEENT: no icterus,NGT + NECK trach present LUNGS: Decreased breath sound at bases HEART: S1, S2 bradycardia ABDOMEN: Soft, nontender, mildly distended EXTREMITIES: + edema, no cyanosis. SKIN:no gen rash NEUROLOGIC: unable to assess Right IJ taken out RT PICC Line clean General: Other (sedated, on vent) Heart: Regular rate Lungs: Clear Abdomen: Normal bowel sounds Extremities: No clubbing, No cyanosis, No edema Skin: Other (incision healed well) Brief Hospital Course Mr. Joya is a 61 old [sex] who presented with [ ] CONDITION AT DISCHARGE: / Discharge Medications Current Medications Nicardipine HCl 50 mg/Sodium Chloride 250 ml @ 12.5 mls/hr CONT PRN IV SEE I/O RECORD Last administered on 02/26/21at 01:20; Start 02/09/21 at 06:15; Stop 03/12/21 at 17:05; Status DC Labetalol HCl (Normodyne Iv Push) 10 mg PRN Q2HR PRN IVP HYPERTENSION- 1ST CHOICE Last administered on 03/08/21at 09:05; Start 02/09/21 at 06:15; Stop 03/12/21 at 17:05; Status DC Lorazepam (Ativan Inj) 2 mg 1X ONCE IVP Last administered on 02/09/21at 10:54; Start 02/09/21 at 10:45; Stop 02/09/21 at 10:46; Status DC Lorazepam (Ativan Inj) 2 mg 1X ONCE IVP Last administered on 02/09/21at 11:00; Start 02/09/21 at 11:00; Stop 02/09/21 at 11:01; Status DC Fentanyl Citrate (Fentanyl 2ml Vial) 25 mcg PRN Q2HR PRN IVP MODERATE TO SEVERE PAIN Last administered on 02/09/21at 13:37; Start 02/09/21 at 13:30; Stop 02/18/21 at 22:53; Status DC Info (Review Meds) 1 ea PRN 1X PRN MC SEE COMMENTS; Start 02/09/21 at 15:00; Stop 03/12/21 at 10:39; Status DC Acetaminophen (Tylenol Supp) 650 mg PRN Q6HRS PRN TX FEVER > 100.5'F or 38'C; Start 02/09/21 at 15:00; Stop 02/11/21 at 21:12; Status DC Albuterol Sulfate (Ventolin Neb Soln) 2.5 mg PRN Q4HRS PRN NEB SHORTNESS OF BREATH; Start 02/09/21 at 15:15; Stop 03/12/21 at 17:05; Status DC Iohexol (Omnipaque 350 Mg/ml) 75 ml 1X ONCE IV Last administered on 02/09/21at 15:52; Start 02/09/21 at 15:30; Stop 02/09/21 at 15:35; Status DC Iohexol (Omnipaque 350 Mg/ml) 100 ml STK-MED ONCE .ROUTE ; Start 02/09/21 at 15:26; Stop 02/09/21 at 15:27; Status DC Info (CONTRAST GIVEN -- Rx MONITORING) 1 each PRN DAILY PRN MC SEE COMMENTS; Start 02/09/21 at 15:45; Stop 02/11/21 at 15:44; Status DC Propofol 100 ml @ As Directed STK-MED ONCE IV ; Start 02/09/21 at 15:51; Stop 02/09/21 at 15:51; Status DC Rocuronium Capulin (Zemuron) 50 mg STK-MED ONCE .ROUTE ; Start 02/09/21 at 15:51; Stop 02/09/21 at 15:51; Status DC Lidocaine HCl (Lidocaine HCl 2% Abboject) 100 mg STK-MED ONCE .ROUTE ; Start 02/09/21 at 15:52; Stop 02/09/21 at 15:53; Status DC Propofol 100 ml @ 3.507 mls/ hr CONT PRN IV PER PROTOCOL Last administered on 03/12/21at 14:37; Start 02/09/21 at 16:15; Stop 03/12/21 at 17:05; Status DC Lidocaine HCl (Lidocaine HCl 2% Abboject) 100 mg 1X ONCE IV Last administered on 02/09/21at 16:17; Start 02/09/21 at 16:15; Stop 02/09/21 at 16:17; Status DC Rocuronium Capulin (Zemuron) 50 mg 1X ONCE IV Last administered on 02/09/21at 16:17; Start 02/09/21 at 16:15; Stop 02/09/21 at 16:17; Status DC Rocuronium Capulin (Zemuron) 100 mg STK-MED ONCE .ROUTE ; Start 02/09/21 at 16:31; Stop 02/09/21 at 16:32; Status DC Gelatin (Gelfoam Size 100) 1 each STK-MED ONCE .ROUTE Last administered on 02/09/21at 17:49; Start 02/09/21 at 16:33; Stop 02/09/21 at 16:33; Status DC Bupivacaine HCl/ Epinephrine Bitart (Sensorcain-Epi 0.5%-1:[id number] Mpf) 30 ml STK-MED ONCE .ROUTE Last administered on 02/09/21at 17:49; Start 02/09/21 at 16:33; Stop 02/09/21 at 16:33; Status DC Cellulose (Surgicel Hemostat 4x8) 1 each STK-MED ONCE .ROUTE Last administered on 02/09/21at 18:38; Start 02/09/21 at 16:33; Stop 02/09/21 at 16:33; Status DC Thrombin 20,000 unit STK-MED ONCE TP Last administered on 02/09/21at 17:49; Start 02/09/21 at 16:33; Stop 02/09/21 at 16:33; Status DC Fentanyl Citrate (Fentanyl 2ml Vial) 75 mcg 1X ONCE IVP Last administered on 02/09/21at 16:45; Start 02/09/21 at 16:45; Stop 02/09/21 at 16:47; Status DC Propofol (Diprivan) 200 mg 1X ONCE IV ; Start 02/09/21 at 17:15; Stop 02/09/21 at 17:16; Status DC Lidocaine HCl (Lidocaine HCl 2% Abboject) 100 mg 1X ONCE IV ; Start 02/09/21 at 17:15; Stop 02/09/21 at 17:16; Status DC Rocuronium Capulin (Zemuron) 50 mg 1X ONCE IV ; Start 02/09/21 at 17:15; Stop 02/09/21 at 17:16; Status DC Propofol 100 ml @ 0 mls/hr CONT PRN PRN IV SEDATION; Start 02/09/21 at 17:15; Stop 02/10/21 at 05:14; Status DC Cefazolin Sodium (Ancef) 1 gm STK-MED ONCE IVP ; Start 02/09/21 at 17:28; Stop 02/09/21 at 17:28; Status DC Fentanyl Citrate (Fentanyl 2ml Vial) 100 mcg STK-MED ONCE .ROUTE ; Start 02/09/21 at 17:43; Stop 02/09/21 at 17:43; Status DC Rocuronium Capulin (Zemuron) 100 mg STK-MED ONCE .ROUTE ; Start 02/09/21 at 17:58; Stop 02/09/21 at 17:59; Status DC Vecuronium Capulin (Norcuron Bolus) 10 mg STK-MED ONCE IV ; Start 02/09/21 at 18: 49; Stop 02/09/21 at 18:50; Status DC Sodium Chloride (SODIUM CHLORIDE 20ml) 20 ml STK-MED ONCE IJ ; Start 02/09/21 at 18:50; Stop 02/09/21 at 18:50; Status DC Sevoflurane (Ultane) 90 ml STK-MED ONCE IH ; Start 02/09/21 at 19:20; Stop 02/09/21 at 19:21; Status DC Fentanyl Citrate 30 ml @ 2.5 mls/hr CONT PRN IV SEE PROTOCOL Last administered on 02/09/21at 23:40; Start 02/09/21 at 23:15; Stop 02/10/21 at 04:43; Status DC Fentanyl Citrate 55 ml @ 0 mls/hr CONT PRN IV SEE I/O Last administered on 03/12/21at 08:16; Start 02/10/21 at 05:00; Stop 03/13/21 at 02:34; Status DC Potassium Chloride/Dextrose/ Sod Cl 1,000 ml @ 80 mls/hr [id number] IV ; Start 02/10/21 at 09:00; Stop 02/10/21 at 13:21; Status DC Pantoprazole Sodium (PROTONIX VIAL for IV PUSH) 40 mg DAILYAC IVP Last administered on 03/12/21at 07:30; Start 02/10/21 at 09:00; Stop 03/12/21 at 17:05; Status DC Lidocaine HCl (Buffered Lidocaine 1%) 3 ml STK-MED ONCE .ROUTE ; Start 02/10/21 at 13:18; Stop 02/10/21 at 13:18; Status DC Sodium Chloride 1,000 ml @ 80 mls/hr [id number] IV Last administered on 02/12/21at 03:00; Start 02/10/21 at 13:30; Stop 02/12/21 at 15:36; Status DC Lidocaine HCl (Buffered Lidocaine 1%) 6 ml 1X ONCE INJ Last administered on 02/10/21at 13:57; Start 02/10/21 at 13:45; Stop 02/10/21 at 13:46; Status DC Potassium Chloride/Water 100 ml @ 100 mls/hr Q1H IV Last administered on 02/11/21at 10:07; Start 02/11/21 at 08:00; Stop 02/11/21 at 09:59; Status DC Piperacillin Sod/ Tazobactam Sod 3.375 gm/Sodium Chloride 50 ml @ 100 mls/hr Q6HRS IV Last administered on 03/07/21at 05:35; Start 02/11/21 at 09:00; Stop 03/07/21 at 09:45; Status DC Info (Tpn Per Pharmacy) 1 each PRN DAILY PRN MC SEE COMMENTS Last administered on 03/11/21at 10:54; Start 02/11/21 at 11:15; Stop 03/12/21 at 13:12; Status DC Sodium Chloride 90 meq/Potassium Chloride 50 meq/ Potassium Phosphate 13.6 mmol/Magnesium Sulfate 10 meq/ Calcium Gluconate 10 meq/ Multivitamins 5 ml/Zinc/Copper/ Manganese/ Selenium 1 ml/ Total Parenteral Nutrition/Amino Acids/Dextrose 1,512 ml @ 63 mls/hr TPN CONT IV Last administered on 02/11/21at 22:32; Start 02/11/21 at 22:00; Stop 02/12/21 at 21:59; Status DC Furosemide (Lasix) 20 mg 1X ONCE IVP Last administered on 02/11/21at 15:11; Start 02/11/21 at 15:30; Stop 02/11/21 at 15:31; Status DC Furosemide (Lasix) 20 mg 1X ONCE IVP Last administered on 02/11/21at 17:00; Start 02/11/21 at 17:00; Stop 02/11/21 at 17:01; Status DC Midazolam HCl 100 ml @ 1 mls/hr CONT PRN IV SEE PROTOCOL Last administered on 02/13/21at 20:58; Start 02/11/21 at 19:30; Stop 03/12/21 at 17:05; Status DC Acetaminophen (Tylenol Supp) 650 mg PRN Q6HRS PRN TX MILD PAIN / TEMP > 100.3'F; Start 02/11/21 at 21:15; Stop 03/12/21 at 17:05; Status DC Sodium Chloride 80 meq/Potassium Chloride 50 meq/ Potassium Phosphate 13.6 mmol/Magnesium Sulfate 6 meq/ Calcium Gluconate 10 meq/ Multivitamins 5 ml/Zinc/Copper/ Manganese/ Selenium 1 ml/ Total Parenteral Nutrition/Amino Aci ds/Dextrose 1,512 ml @ 63 mls/hr TPN CONT IV Last administered on 02/12/21at 22:09; Start 02/12/21 at 22:00; Stop 02/13/21 at 21:59; Status DC Furosemide (Lasix) 40 mg 1X ONCE IVP Last administered on 02/12/21at 12:44; Start 02/12/21 at 12:30; Stop 02/12/21 at 12:31; Status DC Insulin Human Lispro (HumaLOG) 0-5 UNITS Q6HRS SQ Last administered on 03/12/21at 07:02; Start 02/12/21 at 12:00; Stop 03/12/21 at 17:05; Status DC Dextrose (Dextrose 50%-Water Syringe) 12.5 gm PRN Q15MIN PRN IV SEE COMMENTS; Start 02/12/21 at 12:15; Stop 03/12/21 at 17:05; Status DC Clonidine HCl (Catapres Tts-3) 1 patch WEEKLY TD Last administered on 03/06/21at 09:07; Start 02/13/21 at 11:00; Stop 03/12/21 at 17:05; Status DC Sodium Chloride 80 meq/Potassium Chloride 50 meq/ Potassium Phosphate 13.6 mmol/Magnesium Sulfate 6 meq/ Calcium Gluconate 10 meq/ Multivitamins 5 ml/Zinc/Copper/ Manganese/ Selenium 1 ml/ Total Parenteral Nutrition/Amino Acids/Dextrose 1,512 ml @ 63 mls/hr TPN CONT IV Last administered on 02/13/21at 21:42; Start 02/13/21 at 22:00; Stop 02/14/21 at 21:59; Status DC Potassium Acetate 50 meq/Potassium Phosphate 13.6 mmol/Magnesium Sulfate 6 meq/ Calcium Gluconate 10 meq/ Multivitamins 5 ml/Zinc/Copper/ Manganese/ Selenium 1 ml/ Total Parenteral Nutrition/Amino Acids/Dextrose 1,512 ml @ 63 mls/hr TPN CONT IV Last administered on 02/14/21at 21:59; Start 02/14/21 at 22:00; Stop 02/15/21 at 21:59; Status DC Insulin Glargine (Lantus Syringe) 10 unit QHS SQ Last administered on 02/15/21at 22:11; Start 02/14/21 at 21:00; Stop 02/16/21 at 12:42; Status DC Hydralazine HCl (Apresoline Inj) 10 mg PRN Q4HRS PRN IVP ELEVATED BP, SEE COMMENTS Last administered on 03/08/21at 11:14; Start 02/14/21 at 16:00; Stop 03/12/21 at 17:05; Status DC Potassium Acetate 50 meq/Potassium Phosphate 13.6 mmol/Magnesium Sulfate 6 meq/ Calcium Gluconate 10 meq/ Multivitamins 5 ml/Zinc/Copper/ Manganese/ Selenium 1 ml/ Total Parenteral Nutrition/Amino Acids/Dextrose 1,512 ml @ 63 mls/hr TPN CONT IV Last administered on 02/15/21at 22:13; Start 02/15/21 at 22:00; Stop 02/16/21 at 21:59; Status DC Dexmedetomidine HCl 400 mcg/ Sodium Chloride 100 ml @ 0 mls/hr CONT PRN IV PER PROTOCOL Last administered on 03/12/21at 13:55; Start 02/15/21 at 14:15; Stop 03/12/21 at 17:05; Status DC Sodium Chloride 500 ml @ 500 mls/hr 1X PRN PRN IV SEE COMMENTS; Start 02/15/21 at 14:15; Stop 03/12/21 at 17:05; Status DC Atropine Sulfate (ATROPINE 0.5mg SYRINGE) 0.5 mg PRN Q5MIN PRN IV SEE COMMENTS; Start 02/15/21 at 14:15; Stop 03/12/21 at 17:05; Status DC Potassium Acetate 50 meq/Potassium Phosphate 13.6 mmol/Magnesium Sulfate 6 meq/ Calcium Gluconate 10 meq/ Multivitamins 5 ml/Zinc/Copper/ Manganese/ Selenium 1 ml/ Total Parenteral Nutrition/Amino Acids/Dextrose 1,512 ml @ 63 mls/hr TPN CONT IV Last administered on 02/16/21at 22:59; Start 02/16/21 at 22:00; Stop 02/17/21 at 21:59; Status DC Insulin Glargine (Lantus Syringe) 14 unit QHS SQ Last administered on 02/16/21at 21:14; Start 02/16/21 at 21:00; Stop 02/17/21 at 14:15; Status DC Potassium Acetate 50 meq/Potassium Phosphate 13.6 mmol/Magnesium Sulfate 6 meq/ Calcium Gluconate 10 meq/ Multivitamins 5 ml/Zinc/Copper/ Manganese/ Selenium 1 ml/ Total Parenteral Nutrition/Amino Acids/Dextrose 1,512 ml @ 63 mls/hr TPN CONT IV Last administered on 02/17/21at 20:48; Start 02/17/21 at 22:00; Stop 02/18/21 at 21:59; Status DC Dextrose 1,000 ml @ 75 mls/hr [id number] IV Last administered on 02/18/21at 13:51; Start 02/17/21 at 10:30; Stop 02/19/21 at 12:57; Status DC Insulin Glargine (Lantus Syringe) 18 unit QHS SQ Last administered on 02/17/21at 20:46; Start 02/17/21 at 21:00; Stop 02/18/21 at 11:56; Status DC Insulin Glargine (Lantus Syringe) 22 unit QHS SQ Last administered on 02/18/21at 21:00; Start 02/18/21 at 21:00; Stop 02/19/21 at 14:08; Status DC Potassium Acetate 50 meq/Potassium Phosphate 13.6 mmol/Magnesium Sulfate 6 meq/ Calcium Gluconate 10 meq/ Multivitamins 5 ml/Zinc/Copper/ Manganese/ Selenium 1 ml/ Total Parenteral Nutrition/Amino Acids/Dextrose 1,512 ml @ 63 mls/hr TPN CONT IV Last administered on 02/18/21at 21:43; Start 02/18/21 at 22:00; Stop 02/19/21 at 21:59; Status DC Potassium Acetate 50 meq/Potassium Phosphate 13.6 mmol/Magnesium Sulfate 6 meq/ Calcium Gluconate 10 meq/ Multivitamins 5 ml/Zinc/Copper/ Manganese/ Selenium 1 ml/ Total Parenteral Nutrition/Amino Acids/Dextrose 2,040 ml @ 85 mls/hr TPN CONT IV Last administered on 02/19/21at 20:56; Start 02/19/21 at 22:00; Stop 02/20/21 at 21:59; Status DC Insulin Glargine (Lantus Syringe) 25 unit QHS SQ Last administered on 02/20/21at 22:11; Start 02/19/21 at 21:00; Stop 02/21/21 at 10:10; Status DC Acetaminophen (Tylenol) 650 mg PRN Q6HRS PRN PEG MILD PAIN / TEMP > 100.3'F Last administered on 03/08/21at 09:40; Start 02/19/21 at 18:00; Stop 03/12/21 at 17:05; Status DC Potassium Acetate 50 meq/Potassium Phosphate 13.6 mmol/Magnesium Sulfate 6 meq/ Calcium Gluconate 10 meq/ Multivitamins 5 ml/Zinc/Copper/ Manganese/ Selenium 1 ml/ Total Parenteral Nutrition/Amino Acids/Dextrose 2,040 ml @ 85 mls/hr TPN CONT IV Last administered on 02/20/21at 22:10; Start 02/20/21 at 22:00; Stop 02/21/21 at 21:59; Status DC Insulin Glargine (Lantus Syringe) 27 unit QHS SQ Last administered on 03/01/21at 21:18; Start 02/21/21 at 21:00; Stop 03/02/21 at 13:32; Status DC Magnesium Sulfate 50 ml @ 25 mls/hr 1X ONCE IV Last administered on 02/21/21at 11:30; Start 02/21/21 at 11:00; Stop 02/21/21 at 12:59; Status DC Potassium Acetate 50 meq/Potassium Phosphate 13.6 mmol/Magnesium Sulfate 8 meq/ Calcium Gluconate 10 meq/ Multivitamins 5 ml/Zinc/Copper/ Manganese/ Selenium 1 ml/ Total Parenteral Nutrition/Amino Acids/Dextrose 2,040 ml @ 85 mls/hr TPN CONT IV Last administered on 02/21/21at 21:23; Start 02/21/21 at 22:00; Stop 02/22/21 at 21:59; Status DC Daptomycin 570 mg/ Sodium Chloride 50 ml @ 100 mls/hr Q24H IV Last administered on 02/24/21at 13:10; Start 02/22/21 at 12:00; Stop 02/25/21 at 10:34; Status DC Linezolid/Dextrose 300 ml @ 300 mls/hr Q12HR IV Last administered on 03/02/21at 08:26; Start 02/22/21 at 09:00; Stop 03/02/21 at 08:42; Status DC Potassium Acetate 50 meq/Potassium Phosphate 13.6 mmol/Magnesium Sulfate 8 meq/ Calcium Gluconate 5 meq/ Multivitamins 5 ml/Zinc/Copper/ Manganese/ Selenium 1 ml/ Total Parenteral Nutrition/Amino Acids/Dextrose 2,040 ml @ 85 mls/hr TPN CONT IV Last administered on 02/22/21at 21:32; Start 02/22/21 at 22:00; Stop 02/23/21 at 21:59; Status DC Fentanyl Citrate (Fentanyl 2ml Vial) 25 mcg PRN Q5MIN PRN IVP MILD PAIN 1-3; Start 02/23/21 at 06:00; Stop 02/24/21 at 05:59; Status DC Fentanyl Citrate (Fentanyl 2ml Vial) 50 mcg PRN Q5MIN PRN IVP MODERATE PAIN 4- 6; Start 02/23/21 at 06:00; Stop 02/24/21 at 05:59; Status DC Morphine Sulfate (Morphine Sulfate) 1 mg PRN Q10MIN PRN IVP SEVERE PAIN 7-10; Start 02/23/21 at 06:00; Stop 02/24/21 at 05:59; Status DC Ringer's Solution 1,000 ml @ 30 mls/hr Q24H IV Last administered on 02/23/21at 11:00; Start 02/23/21 at 06:00; Stop 02/23/21 at 17:59; Status DC Hydromorphone HCl (Dilaudid) 0.5 mg PRN Q10MIN PRN IVP SEVERE PAIN 7-10, 2nd CHOICE; Start 02/23/21 at 06:00; Stop 02/24/21 at 05:59; Status DC Prochlorperazine Edisylate (Compazine) 5 mg PACU PRN PRN IVP NAUSEA, MRX1; Start 02/23/21 at 06:00; Stop 02/24/21 at 05:59; Status DC Cellulose (Surgicel Fibrillar 1x2) 1 each STK-MED ONCE .ROUTE ; Start 02/23/21 at 08:23; Stop 02/23/21 at 08:23; Status DC Lidocaine/ Epinephrine (LIDOCAINE 1%-EPI 1:100,000 Multi-Dose) 20 ml STK-MED ONCE .ROUTE Last administered on 02/23/21at 13:33; Start 02/23/21 at 08:23; Stop 02/23/21 at 08:23; Status DC Potassium Acetate 50 meq/Potassium Phosphate 13.6 mmol/Magnesium Sulfate 8 meq/ Calcium Gluconate 5 meq/ Multivitamins 5 ml/Zinc/Copper/ Manganese/ Selenium 1 ml/ Total Parenteral Nutrition/Amino Acids/Dextrose 2,040 ml @ 85 mls/hr TPN CONT IV ; Start 02/23/21 at 22:00; Stop 02/24/21 at 21:59; Status DC Rocuronium Capulin (Zemuron) 50 mg STK-MED ONCE .ROUTE ; Start 02/23/21 at 12:13; Stop 02/23/21 at 12:13; Status DC Fentanyl Citrate (Fentanyl 2ml Vial) 100 mcg STK-MED ONCE .ROUTE ; Start 02/23/21 at 12:24; Stop 02/23/21 at 12:24; Status DC Insulin Human Lispro (Huma[employer] VIAL for OP,RR ONLY) 0-10 units PRN Q1HR PRN SQ PER PROTOCOL Last administered on 02/23/21at 13:00; Start 02/23/21 at 13:15; Stop 02/24/21 at 13:14; Status DC Rocuronium Capulin (Zemuron) 100 mg STK-MED ONCE .ROUTE ; Start 02/23/21 at 13:22; Stop 02/23/21 at 13:23; Status DC Albuterol Sulfate (Ventolin Hfa) 60 puff STK-MED ONCE INH ; Start 02/23/21 at 13:47; Stop 02/23/21 at 13:48; Status DC Sevoflurane (Ultane) 60 ml STK-MED ONCE IH ; Start 02/23/21 at 14:21; Stop at 14:21; Status DC Potassium Acetate 50 meq/Potassium Phosphate 13.6 mmol/Magnesium Sulfate 8 meq/ Calcium Gluconate 5 meq/ Multivitamins 5 ml/Zinc/Copper/ Manganese/ Selenium 1 ml/ Total Parenteral Nutrition/Amino Acids/Dextrose 2,040 ml @ 85 mls/hr TPN CONT IV ; Start 02/25/21 at 22:00; Stop 02/26/21 at 21:59; Status DC Potassium Acetate 50 meq/Potassium Phosphate 13.6 mmol/Magnesium Sulfate 8 meq/ Calcium Gluconate 5 meq/ Multivitamins 5 ml/Zinc/Copper/ Manganese/ Selenium 1 ml/ Total Parenteral Nutrition/Amino Acids/Dextrose 2,040 ml @ 85 mls/hr TPN CONT IV Last administered on 02/26/21at 21:27; Start 02/26/21 at 22:00; Stop 02/27/21 at 21:59; Status DC Potassium Acetate 50 meq/Potassium Phosphate 13.6 mmol/Magnesium Sulfate 8 meq/ Calcium Gluconate 5 meq/ Multivitamins 5 ml/Zinc/Copper/ Manganese/ Selenium 1 ml/ Total Parenteral Nutrition/Amino Acids/Dextrose 2,040 ml @ 85 mls/hr TPN CONT IV Last administered on 02/27/21at 21:01; Start 02/27/21 at 22:00; Stop 02/28/21 at 21:59; Status DC Potassium Acetate 50 meq/Potassium Phosphate 13.6 mmol/Magnesium Sulfate 8 meq/ Calcium Gluconate 5 meq/ Multivitamins 5 ml/Zinc/Copper/ Manganese/ Selenium 1 ml/ Total Parenteral Nutrition/Amino Acids/Dextrose 2,040 ml @ 85 mls/hr TPN CONT IV Last administered on 02/28/21at 21:44; Start 02/28/21 at 22:00; Stop 03/01/21 at 21:59; Status DC Potassium Acetate 50 meq/Potassium Phosphate 13.6 mmol/Magnesium Sulfate 8 meq/ Calcium Gluconate 5 meq/ Multivitamins 5 ml/Zinc/Copper/ Manganese/ Selenium 1 ml/ Total Parenteral Nutrition/Amino Acids/Dextrose 2,040 ml @ 85 mls/hr TPN CONT IV Last administered on 03/01/21at 21:22; Start 03/01/21 at 22:00; Stop 03/02/21 at 21:59; Status DC Potassium Acetate 50 meq/Potassium Phosphate 13.6 mmol/Magnesium Sulfate 8 meq/ Multivitamins 5 ml/Zinc/Copper/ Manganese/ Selenium 1 ml/ Total Parenteral Nutrition/Amino Acids/Dextrose 2,040 ml @ 85 mls/hr TPN CONT IV Last administered on 03/02/21at 21:11; Start 03/02/21 at 22:00; Stop 03/03/21 at 21:59; Status DC Insulin Glargine (Lantus Syringe) 35 unit QHS SQ Last administered on 03/11/21at 21:50; Start 03/02/21 at 21:00; Stop 03/12/21 at 17:05; Status DC Potassium Acetate 50 meq/Potassium Phosphate 13.6 mmol/Magnesium Sulfate 8 meq/ Multivitamins 5 ml/Zinc/Copper/ Manganese/ Selenium 1 ml/ Total Parenteral Nutrition/Amino Acids/Dextrose 1,800 ml @ 75 mls/hr TPN CONT IV Last administered on 03/03/21at 21:54; Start 03/03/21 at 22:00; Stop 03/04/21 at 21:59; Status DC Docusate Sodium (Colace Solution) 100 mg DAILY PO Last administered on 03/12/21at 08:14; Start 03/03/21 at 10:00; Stop 03/12/21 at 17:05; Status DC Polyethylene Glycol (miraLAX PACKET) 17 gm DAILY PO Last administered on 03/12/21at 08:14; Start 03/03/21 at 10:00; Stop 03/12/21 at 17:05; Status DC Potassium Acetate 40 meq/Potassium Phosphate 13.6 mmol/Magnesium Sulfate 10 meq/ Multivitamins 5 ml/Zinc/Copper/ Manganese/ Selenium 1 ml/ Total Parenteral Nutrition/Amino Acids/Dextrose 1,800 ml @ 75 mls/hr TPN CONT IV Last administered on 03/04/21at 22:16; Start 03/04/21 at 22:00; Stop 03/05/21 at 21:59; Status DC Linezolid/Dextrose 300 ml @ 300 mls/hr Q12HR IV Last administered on 03/07/21at 08:53; Start 03/05/21 at 09:00; Stop 03/07/21 at 09:45; Status DC Magnesium Sulfate 50 ml @ 25 mls/hr 1X ONCE IV Last administered on 03/05/21at 13:31; Start 03/05/21 at 14:00; Stop 03/05/21 at 15:59; Status DC Sodium Chloride 40 meq/Potassium Acetate 40 meq/ Potassium Phosphate 13.6 mmol/Magnesium Sulfate 10 meq/ Multivitamins 5 ml/Zinc/Copper/ Manganese/ Selenium 1 ml/ Total Parenteral Nutrition/Amino Acids/Dextrose 1,800 ml @ 75 mls/hr TPN CONT IV Last administered on 03/05/21at 21:20; Start 03/05/21 at 22:0 0; Stop 03/06/21 at 21:59; Status DC Sodium Chloride 40 meq/Potassium Acetate 40 meq/ Potassium Phosphate 13.6 mmol/Magnesium Sulfate 10 meq/ Multivitamins 5 ml/Zinc/Copper/ Manganese/ Selenium 1 ml/ Total Parenteral Nutrition/Amino Acids/Dextrose 1,800 ml @ 75 mls/hr TPN CONT IV Last administered on 03/06/21at 21:35; Start 03/06/21 at 22:00; Stop 03/07/21 at 21:59; Status DC Vecuronium Capulin (Norcuron Bolus) 10 mg STK-MED ONCE IV ; Start 03/07/21 at 11:15; Stop 03/07/21 at 11:16; Status DC Vecuronium Capulin (Norcuron Bolus) 10 mg 1X ONCE IV Last administered on 03/07/21at 11:59; Start 03/07/21 at 11:30; Stop 03/07/21 at 12:00; Status DC Sodium Chloride 40 meq/Potassium Acetate 40 meq/ Potassium Phosphate 13.6 mmol/Magnesium Sulfate 10 meq/ Multivitamins 5 ml/Zinc/Copper/ Manganese/ Selenium 1 ml/ Total Parenteral Nutrition/Amino Acids/Dextrose 1,800 ml @ 75 mls/hr TPN CONT IV Last administered on 03/07/21at 21:41; Start 03/07/21 at 22:00; Stop 03/08/21 at 21:59; Status DC Sodium Chloride 40 meq/Potassium Acetate 40 meq/ Potassium Phosphate 13.6 mmol/Magnesium Sulfate 10 meq/ Multivitamins 5 ml/Zinc/Copper/ Manganese/ Selenium 1 ml/ Total Parenteral Nutrition/Amino Acids/Dextrose 1,560 ml @ 65 mls/hr TPN CONT IV Last administered on 03/08/21at 22:01; Start 03/08/21 at 22:00; Stop 03/09/21 at 21:59; Status DC Sodium Chloride 40 meq/Potassium Acetate 40 meq/ Potassium Phosphate 13.6 mmo l/Magnesium Sulfate 10 meq/ Multivitamins 5 ml/Zinc/Copper/ Manganese/ Selenium 1 ml/ Total Parenteral Nutrition/Amino Acids/Dextrose 1,560 ml @ 65 mls/hr TPN CONT IV Last administered on 03/09/21at 22:33; Start 03/09/21 at 22:00; Stop 03/10/21 at 21:59; Status DC Sodium Chloride 40 meq/Potassium Acetate 40 meq/ Magnesium Sulfate 10 meq/ Multivitamins 5 ml/Zinc/Copper/ Manganese/ Selenium 1 ml/ Total Parenteral Nutrition/Amino Acids/Dextrose 1,560 ml @ 65 mls/hr TPN CONT IV Last administered on 03/10/21at 21:57; Start 03/10/21 at 22:00; Stop 03/11/21 at 21:59; Status DC Sodium Chloride 60 meq/Potassium Acetate 40 meq/ Magnesium Sulfate 10 meq/ Multivitamins 5 ml/Zinc/Copper/ Manganese/ Selenium 1 ml/ Total Parenteral Nutrition/Amino Acids/Dextrose 1,560 ml @ 65 mls/hr TPN CONT IV Last administered on 03/11/21at 21:52; Start 03/11/21 at 22:00; Stop 03/12/21 at 17:05; Status DC Morphine Sulfate (Morphine Sulfate) 10 mg 1X ONCE IV Last administered on 03/12/21at 16:30; Start 03/12/21 at 10:30; Stop 03/12/21 at 10:43; Status DC Morphine Sulfate (Morphine Sulfate) 4 mg PRN Q2HR PRN IV PAIN; Start 03/12/21 at 10:30; Stop 03/12/21 at 16:56; Status DC Morphine Sulfate (Morphine Sulfate) 2 mg PRN Q2HR PRN IVP PAIN; Start 03/12/21 at 10:30; Stop 03/12/21 at 16:56; Status DC Lorazepam (Ativan Inj) 2 mg PRN Q2HR PRN IVP ANXIETY / AGITATION; Start 03/12/21 at 10:30; Stop 03/12/21 at 16:56; Status DC Lorazepam (Ativan Inj) 4 mg PRN Q2HRS PRN IVP ANXIETY / AGITATION Last administered on 03/12/21at 16:30; Start 03/12/21 at 10:30; Stop 03/12/21 at 16:56; Status DC Glycopyrrolate (Robinul) 1 mg PRN DAILY PRN IV SECRETIONS Last administered on 03/12/21at 16:29; Start 03/12/21 at 10:30; Stop 03/13/21 at 02:34; Status DC Ondansetron HCl (Zofran) 4 mg PRN Q4HRS PRN IVP NAUSEA/VOMITING, 1st CHOICE Last administered on 03/12/21at 16:31; Start 03/12/21 at 11:45; Stop 03/13/21 at 02:34; Status DC Prochlorperazine Edisylate (Compazine) 10 mg PRN Q4HRS PRN IV NAUSEA/VOMITING, 2nd CHOICE; Start 03/12/21 at 11:45; Stop 03/13/21 at 02:34; Status DC Morphine Sulfate (Morphine Sulfate) 10 mg STK-MED ONCE .ROUTE ; Start 03/12/21 at 16:24; Stop 03/12/21 at 16:25; Status DC Lorazepam (Ativan Inj) 2 mg PRN Q1HR PRN IVP ANXIETY / AGITATION Last administered on 03/12/21at 18:26; Start 03/12/21 at 17:00; Stop 03/13/21 at 02:34; Status DC Lorazepam (Ativan Inj) 4 mg PRN Q1HR PRN IVP ANXIETY / AGITATION Last administered on 03/13/21at 00:31; Start 03/12/21 at 17:00; Stop 03/13/21 at 02:34; Status DC Morphine Sulfate (Morphine Sulfate) 2 mg PRN Q1HR PRN IVP PAIN; Start 03/12/21 at 17:00; Stop 03/13/21 at 02:34; Status DC Morphine Sulfate (Morphine Sulfate) 4 mg PRN Q1HR PRN IV PAIN Last administered on 03/13/21at 00:32; Start 03/12/21 at 17:00; Stop 03/13/21 at 02:34; Status DC Allergies Allergies Coded Allergies Type Severity Reaction Last Updated Verified No Known Drug Allergies 02/09/21 No Disposition/Orders: Justicifation of Admission Dx: Justifications for Admission: Justification of Admission Dx: Yes Acute Hemorrhagic Stroke: Acute Hemorrhagic Stroke LESLI ALCOCER MD Mar 14, 2021 22:37
== END 2021-03-13 01:55 | DRG 3 ==
LOC: 1 WEST ICU 05:04
PROVIDERS: ADMIT Student in an Organized Health Care Education/Training Program; ATTEND Student in an Organized Health Care Education/Training Program
PROC: 5A1955Z Respiratory Ventilation, Greater than 96 Consecutive Hours (ICD-10-PCS; 2021-02-09)
PROC: 02HV33Z Insertion of Infusion Device into Superior Vena Cava, Percutaneous Approach (ICD-10-PCS; 2021-02-09)
PROC: 0BH17EZ Insertion of Endotracheal Airway into Trachea, Via Natural or Artificial Opening (ICD-10-PCS; 2021-02-09)
PROC: 00C00ZZ Extirpation of Matter from Brain, Open Approach (ICD-10-PCS; principal; 2021-02-09 17:00)
PROC: 0B110F4 Bypass Trachea to Cutaneous with Tracheostomy Device, Open Approach (ICD-10-PCS; 2021-02-23)
DX: S06.5X9A Traumatic subdural hemorrhage with loss of consciousness of unspecified duration, initial encounter (principal); E43 Unspecified severe protein-calorie malnutrition; G93.6 Cerebral edema; J96.01 Acute respiratory failure with hypoxia; E87.0 Hyperosmolality and hypernatremia; G93.40 Encephalopathy, unspecified; I16.1 Hypertensive emergency; J98.11 Atelectasis; K56.7 Ileus, unspecified; N17.9 Acute kidney failure, unspecified; E66.01 Morbid (severe) obesity due to excess calories; E87.6 Hypokalemia; I11.0 Hypertensive heart disease with heart failure; I50.9 Heart failure, unspecified; I73.9 Peripheral vascular disease, unspecified; J43.9 Emphysema, unspecified; R29.6 Repeated falls; Z66 Do not resuscitate; Z82.49 Family history of ischemic heart disease and other diseases of the circulatory system; Z86.73 Personal history of transient ischemic attack (TIA), and cerebral infarction without residual deficits; Z87.891 Personal history of nicotine dependence; Z91.14 Patient's other noncompliance with medication regimen; Z20.822 Contact with and (suspected) exposure to COVID-19; W18.39XA Other fall on same level, initial encounter; Y93.89 Activity, other specified; Y92.89 Other specified places as the place of occurrence of the external cause; Y99.8 Other external cause status
CPT/HCPCS: 36415; 36556; 36569; 36600; 70450; 70496; 70498; 71045; 74018; 76937; 80048; 80053; 80069; 80307; 81001; 82550; 82805; 82962; 83605; 83735; 84100; 84478; 84484; 85007; 85025; 85027; 85610; 85730; 86705; 86709; 86803; 86850; 86900; 86901; 87040; 87070; 87205; 87340; 87426; 87522; 88304; 93005; 93306; 93971; 94002; 94003; 94640; 99406; A4364; A4930; A6255; A6258; A6402; A7521; A7526; C1713; C1763; C1892; C9113; J0360; J0610; J0690; J0878; J1815; J1940; J2020; J2060; J2250; J2270; J2405; J2543; J2704; J3010; J3475; J3480; J3490; J7030; J7050; J7060; J7120; Q9967; G0378